=== PATIENT | female | born 1980 | race Caucasian/White ===

== ENCOUNTER 2019-09-25 05:06 | Emergency (ER) | payer BC, SELFPAY ==
--- NOTE | ~2019-09-25 | XR_ITS ---
EXAMINATION: XR chest 1V DATE: 09/25/2019 06:27 INDICATION: Left shoulder pain. TECHNIQUE: A single frontal view of the chest was obtained. COMPARISON: Chest single view 12/16/2018, CT abdomen and pelvis 07/07/2019 FINDINGS: The chest demonstrates clear lungs without pneumonia, pleural effusion, or pneumothorax. Th e heart size is normal. There is a two-part fracture of proximal left humerus. IMPRESSION: 1. Two-part fracture of proximal left humerus. Reviewed, dictated and finalized at location A.
--- NOTE | ~2019-09-25 | XR_ITS ---
EXAMINATION: XR shoulder LT min 2V DATE: 09/25/2019 06:27 INDICATION: Left shoulder pain. TECHNIQUE: 2 views of left shoulder were obtained. COMPARISON: None. FINDINGS: There is an oblique fracture of surgical neck of proximal left humerus. The distal fracture fragment demonstrates 4 mm anterior displacement, 18 mm impaction, and 5 degrees medial angulation. Joint spaces are normal. IMPRESSION: 1. Two-part fracture of proximal left humerus. Reviewed, dictated and finalized at location A.
[2019-09-25 05:03] VITALS: BP 126/73; PULSE 78; RESP 16; TEMP 36.3; O2SAT 100
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
[2019-09-25 06:46] LABS: Basophils Percent Auto 0.5 % (0.2-1.2); Eosinophils Percent Auto 0.2 % (0-4.4); Hematocrit 32.1 % (37.0-47.0); Hemoglobin 10.5 g/dL (12.0-15.0); Immature Granulocyte Absolute 0.03 K/mm3 (0.00-0.031); Immature Granulocyte Percent A 0.5 % (0-0.5); Lymphocytes Absolute Auto 1.67 K/mm3 (0.9-3.2); Lymphocytes Percent Auto 25.9 % (18.3-44.2); Mean Corpuscular HGB Conc 32.7 g/dl (32-36); Mean Corpuscular Hemoglobin 28.5 pg (26-34); Mean Corpuscular Volume 87.2 fl (80-100); Mean Platelet Volume 8.4 fl (7.4-10.4); Monocytes Absolute Auto 0.6 K/mm3 (0.1-0.6); Monocytes Percent Auto 9.3 % (2.6-8.5); Neutrophils Absolute Auto 4.1 K/mm3 (1.3-6.7); Neutrophils Percent Auto 63.6 % (45.5-73.1); Platelet Count Result 134 k/mm3 (150-375); Red Blood Count 3.68 M/mm3 (4.2-5.4); Red Cell Distribution Width 17.2 % (11.5-14.5); White Blood Count 6.5 K/mm3 (4.5-10.0)
[2019-09-25] MEDS: MORPHINE SULFATE 2 MG/ML INJ IV PUSH (06:46)
[2019-09-25 06:56] VITALS: BP 117/68; PULSE 89; RESP 18; O2SAT 99
[2019-09-25 07:00] LABS: Prothrombin Time 13.2 Seconds (11.1-14.7)
[2019-09-25 07:01] LABS: Partial Thromboplastin Time 27.2 SECONDS (22.3-36.8)
[2019-09-25 07:03] LABS: Alanine Aminotransferase 26 U/L (4-35); Albumin Level 3.8 g/dL (3.5-5.1); Alkaline Phosphatase 194 U/L (38-126); Aspartate Amino Transferase 59 U/L (14-36); Bilirubin,Total 0.6 mg/dL (0.2-1.3); Blood Urea Nitrogen 8 mg/dL (7-17); Calcium 8.2 mg/dL (8.4-10.2); Carbon Dioxide 25 mmol/L (22-30); Chloride 102 mmol/L (98-107); Estimated CRCL calculation 129 ml/min; Estimated Glomerular Filt Rate > 60; Glucose 147 mg/dL (65-105); Lipase 163 U/L (23-300); Potassium 4.2 mmol/L (3.4-5.0); Sodium 136 mmol/L (137-145)
--- NOTE | 2019-09-25 07:24 | PC.NURSE ---
assuming care of pt from Macario ANDINO. Pt is A&Ox4. Pt having LUQ abd pain and L shoulder pain. Pt states meds wore off. Pt has ice pack on L shoulder. Pt has call light in reach
[2019-09-25 08:10] VITALS: BP 133/82; PULSE 83; RESP 18; O2SAT 98
== END 2019-09-25 09:15 | disposition home or self-care (01) ==
PROVIDERS: Emergency Provider Emergency Medicine; PCP Family Medicine
DX: S42.222A 2-part displaced fracture of surgical neck of left humerus, initial encounter for closed fracture (principal); E11.9 Type 2 diabetes mellitus without complications; Z79.4 Long term (current) use of insulin; F41.9 Anxiety disorder, unspecified; F32.9 Major depressive disorder, single episode, unspecified; F17.210 Nicotine dependence, cigarettes, uncomplicated; Y35.813A Legal intervention involving manhandling, suspect injured, initial encounter
CPT/HCPCS: 36415; 71045; 73030; 80053; 83690; 85025; 85610; 85730; 96374; 99284; A4565; A9270; J2270

== ENCOUNTER 2019-10-12 20:23 | Emergency (ER) | payer BC, SELFPAY ==
[2019-10-12] VITALS (10 sets, daily range): BP systolic 107–149; BP diastolic 61–95; PULSE 92–104; RESP 18–20; TEMP 36.8; O2SAT 99–100
--- NOTE | ~2019-10-12 | CT_ITS ---
EXAMINATION: CT abdomen pelvis w con DATE: 10/12/2019 21:40 INDICATION: Left upper quadrant pain TECHNIQUE: Computed tomography (CT) of the abdomen and pelvis was performed with 100 cc Omnipaque 350 intravenous contrast. The dose-length product was 626.25 mGy-cm. Automated exposure control and iter ative reconstruction technique were employed. COMPARISON: CT dated 07/07/2019 FINDINGS: Lung bases are unremarkable. Heart size normal. No significant pleural or pericardial effus ion. The liver, spleen, adrenal glands and left kidney are unremarkable. There is a subcentimeter hypodens ity of the right kidney, likely benign cysts. There is a gallstone. There is chronic pancreatitis with walled off fluid collections along the pancreatic margin and along the margin of the left colon, likely developing pancreatic pseudocyst or abscess formation. No signi ficant small bowel obstruction. There are multiple thickened loops of small bowel the splenic vein is likely thrombosed with collateralization. There are enlarged retroperitoneal lymph nodes, likely danny ctive. No free air. Small amount of free fluid in the pelvic cul-de-sac. No acute osseous abnormality . Chronic left L5 pars interarticularis defect. IMPRESSION: 1. Chronic pancreatitis with increasing size of walled off fluid collections which are contiguous wit h the pancreas, gastric wall and also the margin of the left colon. Differential diagnosis includes d eveloping pancreatic pseudocysts, abscess formation or pancreatic necrosis. 2: Cholelithiasis. Reviewed, dictated and finalized at location A. IMPRESSION: 1. Chronic pancreatitis with increasing size of walled off fluid collections wh ich are contiguous with the pancreas, gastric wall and also the margin of the l eft colon. Differential diagnosis includes developing pancreatic pseudocysts, a bscess formation or pancreatic necrosis. 2: Cholelithiasis.
--- NOTE | 2019-10-12 21:00 | ED.ABDPAIN ---
HPI - Abdominal Pain General Chief Complaint: Abdominal Pain Stated Complaint: PANCREATIC FLARE UP Time Seen by Provider: 10/12/19 20:38 History of Present Illness HPI narrative: 39 yo female w/ h/o chronic/necrotizing pancreatitis presents to the ED c/o abdominal pain. LUQ. No radiation. tearing/dull. Severe in intensity. This feels similar to her pancreatitis. She has previously had necrotizing pancreatitis for which she sees GI at [place]. She has required percutaneous drainage in the past. No fever, cough, SOB. Related Data Home Medications Medication Instructions Recorded Confirmed insulin glargine 100 unit/mL (3 25 unit SUB-Q DAILY 07/20/19 mL) subcutaneous pen insulin lispro 100 unit/mL 5 unit SUB-Q TID ml 07/20/19 subcutaneous pen Allergies Allergy/AdvReac Type Severity Reaction Status Date / Time No Known Allergies Allergy Unknown Verified 10/12/19 21:00 Review of Systems Review of Systems: All systems reviewed & are unremarkable except as noted in HPI and below Constitutional: Constitutional: Reports weakness Cardiovascular: Cardiovascular: Denies chest pain Respiratory: Respiratory: Denies cough and Denies dyspnea Gastrointestinal: Gastrointestinal: Reports abdominal pain, Denies diarrhea, Reports nausea and Denies vomiting Genitourinary: Genitourinary: Denies dysuria Musculoskeletal: Musculoskeletal: Reports back pain Neurologic: Denies syncope PMFSH Social History Social History Smoking status: Current every day smoker Tobacco type: cigarettes Second hand tobacco smoke exposure: Yes Alcohol intake: former Substance use: never Substance use type: does not use Gender identity (if verbalized by the patient): Female Exam Const: General: alert and ill appearing Nutritional Appearance: well nourished Orientation/consciousness: patient oriented x3 Other: mild distress HENMT: Mouth: Yes dry mucous membranes Resp: Effort & Inspection: normal respiratory effort Auscultation: clear to auscultation bilaterally Cardio: Rate: regular rate Rhythm: regular rhythm GI: Inspection: non-distended GI Palp: Yes Soft to palpation and Yes Tenderness to palpation present (GI) (periumbilical) Skin: General skin exam: normal color and no pallor Neuro: General: patient oriented x3, moves all extremities, no focal motor deficits and CN's II-XI intact bilaterally Speech: normal speech Extrem: General: normal to inspection Course Vital Signs Vital signs: Vital Signs Temperature 36.8 C 10/12/19 20:33 Pulse Rate 104 H 10/12/19 20:33 Respiratory Rate 20 10/12/19 20:33 Blood Pressure 149/90 H 10/12/19 20:33 Pulse Oximetry 100 10/12/19 20:33 Temperature 36.8 C 10/13/19 00:45 Pulse Rate 87 10/13/19 01:01 Respiratory Rate 18 10/13/19 01:01 Blood Pressure 105/66 10/13/19 01:01 Pulse Oximetry 100 10/13/19 01:01 MDM - Abdominal Pain MDM Narrative Medical decision making narrative: CT shows enlarging fluid collections. She sees GI at [place]. I contacted them and discussed the case. They will accept the transfer as a direct admit. Differential Diagnosis Differential diagnosis: Likely abdominal pain, constipation, diverticulitis, gastroenteritis, pancreatitis and small bowel obstruction Medical Records Attestation: I reviewed the patient's medical records. Lab Data Attestation: I reviewed the patient's lab results. Result diagrams: 10/12/19 20:55 10/12/19 20:56 Labs: Lab Results 10/12/19 10/12/19 Range/Units 20:55 20:56 WBC 12.2 H (4.5-10.0) K/mm3 RBC 3.80 L (4.2-5.4) M/mm3 Hgb 10.1 L (12.0-15.0) g/dL Hct 33.4 L (37.0-47.0) % MCV 87.9 (80-100) fl MCH 26.6 (26-34) pg MCHC 30.2 L (32-36) g/dl RDW 17.9 H (11.5-14.5) % Plt Count 457 H D (150-375) k/mm3 MPV 9.2 (7.4-10.4) fl Immature Gran % (Auto) 0.4 (0-0.5) % Brandi
[2019-10-12 21:01] LABS: Basophils Absolute Auto 0.1 K/mm3 (0.0-0.1); Basophils Percent Auto 0.4 % (0.2-1.2); Eosinophils Absolute Auto 0.3 K/mm3 (0-0.3); Eosinophils Percent Auto 2.1 % (0-4.4); Hematocrit 33.4 % (37.0-47.0); Hemoglobin 10.1 g/dL (12.0-15.0); Immature Granulocyte Absolute 0.05 K/mm3 (0.00-0.031); Immature Granulocyte Percent A 0.4 % (0-0.5); Lymphocytes Absolute Auto 1.51 K/mm3 (0.9-3.2); Lymphocytes Percent Auto 12.4 % (18.3-44.2); Mean Corpuscular HGB Conc 30.2 g/dl (32-36); Mean Corpuscular Hemoglobin 26.6 pg (26-34); Mean Corpuscular Volume 87.9 fl (80-100); Mean Platelet Volume 9.2 fl (7.4-10.4); Monocytes Absolute Auto 0.5 K/mm3 (0.1-0.6); Monocytes Percent Auto 3.9 % (2.6-8.5); Neutrophils Absolute Auto 9.8 K/mm3 (1.3-6.7); Neutrophils Percent Auto 80.8 % (45.5-73.1); Platelet Count Result 457 k/mm3 (150-375); Red Cell Distribution Width 17.9 % (11.5-14.5); White Blood Count 12.2 K/mm3 (4.5-10.0)
[2019-10-12 21:17] LABS: Alanine Aminotransferase 19 U/L (4-35); Albumin Level 4.1 g/dL (3.5-5.1); Alkaline Phosphatase 187 U/L (38-126); Aspartate Amino Transferase 31 U/L (14-36); Bilirubin,Total 0.3 mg/dL (0.2-1.3); Blood Urea Nitrogen 10 mg/dL (7-17); Calcium 9.5 mg/dL (8.4-10.2); Carbon Dioxide 27 mmol/L (22-30); Chloride 99 mmol/L (98-107); Estimated CRCL calculation 106 ml/min; Estimated Glomerular Filt Rate > 60; Glucose 248 mg/dL (65-105); Lipase 1708 U/L (23-300); Potassium 4.5 mmol/L (3.4-5.0); Sodium 133 mmol/L (137-145)
[2019-10-12] MEDS: SODIUM CHLORIDE 0.9% IV 1,000 ML 999 ML IV CONT (21:43)
[2019-10-12] MEDS: ONDANSETRON INJ 4 MG/2 ML VIAL IV PUSH (21:44)
[2019-10-12] MEDS: MORPHINE SULFATE 4 MG/ML INJ IV PUSH (22:11)
[2019-10-13 00:01] VITALS: BP 108/72
[2019-10-13 00:31] VITALS: BP 102/62; O2SAT 99
[2019-10-13 00:45] VITALS: TEMP 36.8
--- NOTE | 2019-10-13 00:45 | PC.NURSE ---
[facility] agreed to transfer pt to [place] ETA of 0111
[2019-10-13 01:01] VITALS: BP 105/66; PULSE 87; RESP 18; O2SAT 100
[2019-10-13] MEDS: HYDROMORPHONE HCL 1 MG/ML INJ IV PUSH (01:44)
--- NOTE | 2019-10-13 01:45 | PC.NURSE ---
EMS here to transport patient to [place]
== END 2019-10-13 01:54 | disposition short-term general hospital (02) ==
PROVIDERS: Emergency Provider Emergency Medicine; PCP Family Medicine
DX: K86.1 Other chronic pancreatitis (principal); F17.210 Nicotine dependence, cigarettes, uncomplicated; K80.20 Calculus of gallbladder without cholecystitis without obstruction
CPT/HCPCS: 36415; 74177; 80053; 83690; 85025; 96361; 96374; 96375; 99285; J1170; J2270; J2405; J3010; J7030; Q9967

== ENCOUNTER 2019-11-03 18:34 | Emergency (ER) | payer BC, SELFPAY ==
[2019-11-03 18:41] VITALS: BP 100/83; PULSE 72; RESP 18; TEMP 36.8; O2SAT 95
--- NOTE | 2019-11-03 19:08 | ED.GENADULT ---
HPI - General Adult General Chief complaint: Unspecified Stated complaint: I got fucking alcohol poisoning Time Seen by Provider: 11/03/19 19:05 History of Present Illness HPI narrative: SHe reports that she has been drinking heavily and came to the ED because she thought that she was dying. She denies any specific symptoms: Abdominal pain, nausea, injuries, fever, weakness. She asked to be discharged shortly after I started to collect the history from her. Related Data Home Medications Medication Instructions Recorded Confirmed insulin glargine 100 unit/mL (3 25 unit SUB-Q DAILY 07/20/19 10/18/19 mL) subcutaneous pen aspirin 325 mg tablet 325 mg PO DAILY 10/18/19 10/18/19 bupropion HCl 75 mg tablet 150 mg PO BID tablet 10/18/19 10/18/19 insulin lispro 100 unit/mL See Rx Instructions SUB-Q TID ml 10/18/19 10/18/19 subcutaneous pen pregabalin 150 mg capsule 150 mg PO BID 10/18/19 10/18/19 pregabalin 150 mg capsule 150 mg PO BID 10/18/19 10/18/19 Allergies Allergy/AdvReac Type Severity Reaction Status Date / Time No Known Allergies Allergy Unknown Verified 10/18/19 13:30 Review of Systems Review of Systems: All systems reviewed & are unremarkable except as noted in HPI and below Constitutional: Constitutional: Denies fever(s) Eyes: Eyes: Denies change in vision Cardiovascular: Cardiovascular: Denies chest pain Respiratory: Respiratory: Denies cough and Denies dyspnea Gastrointestinal: Gastrointestinal: Denies abdominal pain, Denies diarrhea, Denies nausea and Denies vomiting Genitourinary: Genitourinary: Denies hematuria and Denies dysuria Musculoskeletal: Musculoskeletal: Denies back pain Neurologic: Denies dizziness [facility] Past Medical History Medical History Anxiety Depression DVT (deep venous thrombosis) Dyslipidemia Hepatitis IDDM (insulin dependent diabetes mellitus) Necrotizing pancreatitis Surgical History Surgical History History of section 2003, 2010, 2016 History of ERCP 06/2019 History of surgery on arm Left - 2020 [place] teeth extracted age 23 Family History Family History Other Diabetes mellitus Family history of coronary artery disease Family history of dementia Social History Social History Smoking status: Current every day smoker Tobacco type: cigarettes Second hand tobacco smoke exposure: Yes Alcohol intake: former Substance use: never Substance use type: does not use Gender identity (if verbalized by the patient): Female Exam Const: General: no acute distress and alert Nutritional Appearance: well nourished Orientation/consciousness: patient oriented x3 HENMT: Other: severe tooth decay Eyes: Pupils: Equal, round and reactive pupils present Resp: Effort & Inspection: normal respiratory effort Auscultation: clear to auscultation bilaterally Cardio: Rate: regular rate Rhythm: regular rhythm GI: GI Palp: Yes Soft to palpation and No Tenderness to palpation present (GI) Skin: General skin exam: normal color Wounds: no wounds Neuro: General: patient oriented x3, moves all extremities, no focal motor deficits and CN's II-XI intact bilaterally Speech: Abnormal speech present slurred Course Vital Signs Vital signs: Vital Signs Temperature 36.8 C 11/03/19 18:41 Pulse Rate 72 11/03/19 18:41 Respiratory Rate 18 11/03/19 18:41 Blood Pressure 100/83 11/03/19 18:41 Pulse Oximetry 95 11/03/19 18:41 Temperature 36.8 C 11/03/19 18:41 Pulse Rate 115 H 11/03/19 19:27 Respiratory Rate 17 11/03/19 19:27 Blood Pressure 124/87 11/03/19 19:27 Pulse Oximetry 96 11/03/19 19:27 Medical Decision Making [facility] Narrative Medical decision making narrative: She has multiple
[2019-11-03 19:27] VITALS: BP 124/87; PULSE 115; RESP 17; O2SAT 96
[2019-11-03 20:05] LABS: Add Urine Microscopic? YES; Appearance Urine Clear (Clear); Bacteria Urine Trace /hpf; Bilirubin Urine Negative (Negative); Blood Urine 1+ (Negative); Color Urine Yellow (Yellow); Glucose Urine UA Negative (Negative); Ketones Urine Negative (Negative); Leukocyte Esterase Ur Negative LEU/UL (Negative); Mucus Urine Rare /lpf; Nitrate Urine Negative (Negative); Protein Urine 3+ mg/dL (Negative); RBC Urine 0-2 /hpf (0-2); Squamous Epithelial Cell Urine Many /hpf (Few); Urobilinogen Urine Negative mg/dL (<2.0); WBC Urine 0-3 /hpf
[2019-11-03 20:22] LABS: Amphetamine Screen Urine Negative (Negative); Barbiturate Screen Urine Negative (Negative); Benzodiazepines Screen Urine Negative (Negative); Cannabinoid Screen Urine Negative (Negative); Cocaine Screen Urine Negative (Negative); Methadone Screen Urine Negative (Negative); Opiate Screen Urine Negative (Negative); Phencyclidine Screen Urine Negative (Negative)
== END 2019-11-03 20:25 | disposition home or self-care (01) ==
PROVIDERS: Emergency Provider Emergency Medicine; PCP Family Medicine
DX: F10.129 Alcohol abuse with intoxication, unspecified (principal); F41.9 Anxiety disorder, unspecified; F32.9 Major depressive disorder, single episode, unspecified; Z86.718 Personal history of other venous thrombosis and embolism; E78.5 Hyperlipidemia, unspecified; E11.9 Type 2 diabetes mellitus without complications; Z79.82 Long term (current) use of aspirin; Z79.4 Long term (current) use of insulin; Y90.9 Presence of alcohol in blood, level not specified
CPT/HCPCS: 80307; 81001; 99283

== ENCOUNTER 2020-01-16 18:25 | Inpatient (IN) | payer BC, SELFPAY ==
--- NOTE | ~2020-01-16 | MR_ITS ---
EXAMINATION: MR brain/brain stem wo/w con DATE: 01/18/2020 07:32 INDICATION: Seizures TECHNIQUE: Magnetic resonance imaging (MRI) of the brain and brainstem was performed without and with 13 mL Multihance intravenous contrast. Sequences included sagittal and axial T1-weighted SE, axial d iffusion-weighted FS SE, axial T2*-weighted GRE, axial T2-weighted FLAIR Propeller, axial T2-weighted Propeller, coronal T2-weighted FLAIR, and coronal T1-weighted 3D FSPGR. Postcontrast axial T1-weight ed SE was obtained. Apparent diffusion coefficient (ADC) maps were created. COMPARISON: None. FINDINGS: Soft tissue swelling and edema surrounding the left parietal scalp hematoma.. There are no areas of r estricted diffusion to suggest acute infarction. No intracranial hemorrhage or abnormal intracranial mass lesion. The hippocampi appear normal and symmetric. No evident ackerman matter heterotopias or other neuronal migrational abnormalities. There are no intraparenchymal signal abnormalities seen on the o ther pulse sequences. The ventricles are symmetric and normal in size. There are no abnormal extra-ax ial fluid collections. Flow voids are seen in the cerebral arteries on the T2-weighted sequences cons istent with their expected patency. Mild mucoperiosteal thickening at the bilateral ethmoid sinuses. Visualized orbits and soft tissues are unremarkable. There are no areas of abnormal enhancement on th e post contrast images. IMPRESSION: 1. Left parietal scalp hematoma. Otherwise unremarkable brain MRI. Reviewed, dictated and finalized at location A.
--- NOTE | ~2020-01-16 | CT_ITS ---
EXAMINATION: CT brain wo con EXAM DATE: 01/16/2020 21:13 INDICATION: Seizure, posterior head injury. TECHNIQUE: Spiral CT of the head was performed without contrast. Axial, coronal and sagittal images were reviewed. The dose-length product (DLP) for this examination was 605.33 mGy-cm. The exposure w as tailored according to patient size, and iterative reconstruction (ASIR) was used as additional dos e reduction technique. There is no prior study for comparison. FINDINGS: There is no acute intraparenchymal hemorrhage. No evidence of intraparenchymal brain mass lesion. No evidence of acute infarction. There is no mass effect or midline shift. The ventricles are normal in size. There are no extra-axial collections. There are no acute calvarial fractures. T he orbits are unremarkable. There is large left posterior scalp contusion. The visualized sinuses an d mastoid air cells are well aerated. IMPRESSION: 1. No acute intracranial findings. 2. Large left posterior scalp contusion without underlying fracture. Reviewed, dictated and finalized at location A.
--- NOTE | ~2020-01-16 | CT_ITS ---
EXAMINATION: CT abdomen pelvis w con EXAM DATE: 01/16/2020 21:14 INDICATION: Seizure, head injury. TECHNIQUE: Spiral CT of the abdomen and pelvis was performed following intravenous injection of 100 m L Omnipaque 350. Axial, coronal and sagittal images were reviewed. The dose-length product (DLP) fo r this examination was 863.02 mGy-cm. The exposure was tailored according to patient size (auto mA e xposure control), and iterative reconstruction (ASIR) was used as additional dose reduction technique . Comparison is made to prior examination from 10/12/2019. FINDINGS: There is severe hepatic steatosis. There are pancreatic calcifications, is peripancreatic fat stranding, inflammation, acute on chronic pancreatitis. There has been interval decrease in size of the scattered pseudocysts between the pancreas and stomach, with the largest region measuring 1 x 2 cm today versus 3.5 x 2.1 cm on prior study. There has been development of severe edema along the lesser curvature of the stomach, probably reactive from the pancreatitis, pseudocysts. Gastritis from peptic ulcer disease not excludable. Gallbladder is unremarkable. No biliary obstruction. Portal and splenic veins are patent. Kidneys enhance symmetrically. There is no hydronephrosis. The uterus and ovaries are unremarkable, no adn exal mass. The bladder is unremarkable. There is no retroperitoneal or pelvic lymphadenopathy. The appendix is not positively visualized. There is no pericecal inflammatory change to suggest appe ndicitis. Unremarkable small bowel. There is expected amount of colonic stool. No free intraperi toneal gas. The heart is normal in size. There are no pericardial or pleural effusions. The lung bases are unremarkable. There is left-sided L5 spondylolysis. Left rib fractures appear old. IMPRESSION: 1. Acute on chronic pancreatitis with decrease in size of pseudocysts but development of significant edema along the lesser curvature of the stomach. 2. Severe hepatic steatosis. Reviewed, dictated and finalized at location A. IMPRESSION: 1. Acute on chronic pancreatitis with decrease in size of pseudocysts but deve lopment of significant edema along the lesser curvature of the stomach. 2. Severe hepatic steatosis.
--- NOTE | ~2020-01-16 | CT_ITS ---
EXAMINATION: CT cervical spine wo [facility] EXAM DATE: 01/16/2020 22:23 INDICATION: Fall, neck pain. Seizure. TECHNIQUE: Spiral CT of the cervical spine was performed without contrast. Axial images were reviewe d. Coronal and sagittal reformatted images were also reviewed. The dose-length product (DLP) for thi s examination was 356.57 mGy-cm. The exposure was tailored according to patient size (auto mA exposu re control), and iterative reconstruction (ASIR) was used as additional dose reduction technique. ere is no prior study for comparison. FINDINGS: There is no evidence of acute cervical fracture. The odontoid process is intact. Pre-dens space is normal. Prevertebral soft tissue is normal. There are no soft tissue abnormalities identi fied. There is no disc space widening or traumatic vertebral body subluxation suspected. Vertebral body and disc heights are well-maintained. A detailed level by level evaluation of spondylosis can be added as addendum if requested. IMPRESSION: 1. No acute cervical fracture. Reviewed, dictated and finalized at location A.
[2020-01-16 18:25] VITALS: BP 146/96; PULSE 78; RESP 20; TEMP 37.2; O2SAT 100
[2020-01-16 18:51] LABS: Basophils Percent Auto 0.3 % (0.2-1.2); Eosinophils Percent Auto 0.6 % (0-4.4); Hematocrit 42.8 % (37.0-47.0); Hemoglobin 14.7 g/dL (12.0-15.0); Immature Granulocyte Absolute 0.02 K/mm3 (0.00-0.031); Immature Granulocyte Percent A 0.3 % (0-0.5); Lymphocytes Absolute Auto 1.73 K/mm3 (0.9-3.2); Lymphocytes Percent Auto 23.9 % (18.3-44.2); Mean Corpuscular HGB Conc 34.3 g/dl (32-36); Mean Corpuscular Hemoglobin 31.5 pg (26-34); Mean Corpuscular Volume 91.6 fl (80-100); Mean Platelet Volume 9.7 fl (7.4-10.4); Monocytes Absolute Auto 0.7 K/mm3 (0.1-0.6); Monocytes Percent Auto 10.2 % (2.6-8.5); Neutrophils Absolute Auto 4.7 K/mm3 (1.3-6.7); Neutrophils Percent Auto 64.7 % (45.5-73.1); Platelet Count Result 155 k/mm3 (150-375); Red Blood Count 4.67 M/mm3 (4.2-5.4); Red Cell Distribution Width 17.3 % (11.5-14.5); White Blood Count 7.2 K/mm3 (4.5-10.0)
[2020-01-16 19:31] VITALS: BP 119/82; PULSE 78; RESP 18; O2SAT 99
--- NOTE | 2020-01-16 19:33 | ED.SEIZURE ---
HPI - Seizure General Chief Complaint: Seizure Stated Complaint: sz Time Seen by Provider: 01/16/20 19:17 History of Present Illness HPI Narrative: Patient presents via EMS after having a seizure at [facility] and falling backwards on her head. Initially she refused transfer and went home. Then when she got home she started to worry and called EMS to bring her to the hospital. She said her blood sugars been running high it was 400 at [facility]. She had a 2-week alcohol binge and is been 4 days now since she had her last alcohol. She has previously had alcohol withdrawal seizures. When she fell she bumped the back of her head and has a large swelling there. She gives her head pain a 3 out of 10. She gives her neck pain a 3 out of 10. She feels not like she might have another seizure. She has a tremor in the left hand. She is an insulin-dependent diabetic. She smokes cigarettes,, drinks alcohol, and does marijuana. Her surgeries include a tubal ligation. She has not been sick otherwise. MD complaint: seizure Onset (ago): hour(s) Description of Episode: loss of consciousness -: minutes(s) Witnessed: Yes - by Bystander Trauma: No Seizure History: Yes Place: [facility] Possible Precipitating Event: alcohol withdrawal Associated symptoms: chest pain Treatments prior to arrival: none Related Data Home Medications Medication Instructions Recorded Confirmed insulin glargine 100 unit/mL (3 25 unit SUB-Q DAILY 07/20/19 10/18/19 mL) subcutaneous pen aspirin 325 mg tablet 325 mg PO DAILY 10/18/19 10/18/19 bupropion HCl 75 mg tablet 150 mg PO BID tablet 10/18/19 10/18/19 insulin lispro 100 unit/mL See Rx Instructions SUB-Q TID ml 10/18/19 10/18/19 subcutaneous pen pregabalin 150 mg capsule 150 mg PO BID 10/18/19 10/18/19 pregabalin 150 mg capsule 150 mg PO BID 10/18/19 10/18/19 Allergies Allergy/AdvReac Type Severity Reaction Status Date / Time No Known Allergies Allergy Unknown Verified 10/18/19 13:30 Review of Systems Review of Systems: Narrative: CONSTITUTIONAL: Denies fever, chills, or sweats. EYES: Denies visual changes, redness, or discharge. ENT: Denies rhinorrhea, congestion, sore throat, or otalgia. CARDIOVASCULAR: Denies chest pain, palpitations, or edema. RESPIRATORY: Denies cough or dyspnea. GASTROINTESTINAL: Denies abdominal pain, nausea, vomiting, or diarrhea. GENITOURINARY: Denies dysuria or hematuria. SKIN: Denies rash or itching. MUSCULOSKELETAL: Denies back pain, joint pain, or myalgia. NEUROLOGIC: She has headache, but not numbness, or weakness.. All systems reviewed & are unremarkable except as noted in HPI and below PMFSH Past Medical History Medical History (Updated 01/16/20 @ 23:27 by Stacey Fisher MD) Anxiety Depression DVT (deep venous thrombosis) Dyslipidemia Hepatitis IDDM (insulin dependent diabetes mellitus) Necrotizing pancreatitis Surgical History Surgical History (Updated 01/16/20 @ 19:37 by Stacey Fisher MD) History of section 2003, 2010, 2015 History of ERCP 06/2019 History of surgery on arm Left - 2019 History of tubal ligation [place] teeth extracted age 23 Social History Social History (Updated 01/16/20 @ 19:37 by Stacey Fisher MD) Smoking status: Current every day smoker Tobacco type: cigarettes Second hand tobacco smoke exposure: Yes Alcohol intake: former Substance use: current Substance use type: marijuana Gender identity (if verbalized by the patient): Female Exam Narrative: Exam Narrative: GENERAL: Well-appearing, well-nourished, and in no acute distress. HEAD: Normocephalic tender swelling on the left occiput. EYES: PERRLA and EOMI. ENT: Nares clear, no rhinorrhea or epistaxis. Mucous membranes moist. NECK: Supple. CHEST: Clear to auscultation. No respiratory distress. HEART: Regular rate and rhythm. No murmur heard. Normal peripheral pulses. ABDOMEN: Soft, nontender, nondistended, normal active bowel sounds. EXTREMITIE
[2020-01-16 19:35] LABS: Alanine Aminotransferase 55 U/L (4-35); Albumin Level 3.5 g/dL (3.5-5.1); Anion Gap 10.3 mmol/L (7-16); Aspartate Amino Transferase 71 U/L (14-36); Bilirubin,Total 0.8 mg/dL (0.2-1.3); Blood Urea Nitrogen 8 mg/dL (7-17); Calcium 8.7 mg/dL (8.4-10.2); Carbon Dioxide 29 mmol/L (22-30); Chloride 97 mmol/L (98-107); Estimated CRCL calculation 124 ml/min; Estimated Glomerular Filt Rate > 60; Glucose 91 mg/dL (65-105); Potassium 3.3 mmol/L (3.4-5.0); Sodium 133 mmol/L (137-145)
[2020-01-16 19:38] LABS: Alkaline Phosphatase 226 U/L (38-126)
[2020-01-16 19:48] LABS: Ethanol < 10 mg/dL (<10)
[2020-01-16 20:50] LABS: Add Urine Microscopic? YES; Appearance Urine Clear (Clear); Bacteria Urine Trace /hpf; Bilirubin Urine Negative (Negative); Blood Urine Negative (Negative); Color Urine Yellow (Yellow); Glucose Urine UA 1+ mg/dL (Negative); Ketones Urine Negative (Negative); Leukocyte Esterase Ur Negative LEU/UL (Negative); Mucus Urine Moderate /lpf; Nitrate Urine Negative (Negative); Protein Urine 1+ mg/dL (Negative); Specific Grav Ur 1.013 (1.001-1.035); Squamous Epithelial Cell Urine Rare /hpf (Few); WBC Urine 0-3 /hpf
[2020-01-16 21:07] LABS: Amphetamine Screen Urine Negative (Negative); Barbiturate Screen Urine Negative (Negative); Benzodiazepines Screen Urine Negative (Negative); Cannabinoid Screen Urine Positive (Negative); Cocaine Screen Urine Negative (Negative); Methadone Screen Urine Negative (Negative); Opiate Screen Urine Negative (Negative); Phencyclidine Screen Urine Negative (Negative)
[2020-01-16 21:33] VITALS: BP 110/76; PULSE 76; RESP 18; O2SAT 99
[2020-01-16 23:47] VITALS: BP 110/72; PULSE 81; RESP 18; O2SAT 99
[2020-01-17] VITALS (25 sets, daily range): BP systolic 92–130; BP diastolic 59–93; PULSE 69–105; RESP 12–20; TEMP 36.5–36.8; O2SAT 97–100; BMI 26.6
--- NOTE | 2020-01-17 01:22 | PM.IMHP ---
H&P: HPI History of Present Illness Date/Time: 01/17/20 01:22 Chief complaint: sz Narrative: This is a 39 year old Diabetic female with known history of chronic pancreatitis, alcoholism, and previous hepatitis who presented to the hospital afte suffering a generalized seizure at [facility] today. The patient suffered posterior head trauma as her head hit the floor when she seized. The patient admits to a 2 week alcohol binge recently but hasn't had a drink in about 4 days now. The patient also has a history of previous withdrawal seizures. She denies any tongue biting or loss of urine. She was given ativan IV in the ER. She was evaluated in the ER and given a dose of ativan. On my encounter with her she is calm and does not have any visable shaking. She quickly falls back asleep as she appears postictal and has been given ativan. She denies any significant symptoms other than posterior headache where she suffered head trauma this evening. She denies any chest pain, shortness of breath, fever, cough, nausea, vomiting, photophobia, abdominal pain, dysuria, hematuria, or rectal bleeding. No focal deficits are reported. Review of Systems Review of Systems: All systems reviewed & are unremarkable except as noted in HPI and below PMFSH Past Medical History Medical History Anxiety Depression DVT (deep venous thrombosis) Dyslipidemia Hepatitis IDDM (insulin dependent diabetes mellitus) Necrotizing pancreatitis Surgical History Surgical History History of section 2003, 2010, 2015 History of ERCP 06/2019 History of surgery on arm Left - 2019 History of tubal ligation [place] teeth extracted age 23 Family History Family History Other Diabetes mellitus Family history of coronary artery disease Family history of dementia Social History Social History Smoking status: Current every day smoker Tobacco type: cigarettes Second hand tobacco smoke exposure: Yes Alcohol intake: former Substance use: current Substance use type: marijuana Gender identity (if verbalized by the patient): Female Meds Home Medications and Allergies Home Medications Medication Instructions Recorded Confirmed Type insulin glargine 100 unit/mL (3 25 unit SUB-Q DAILY 07/20/19 10/18/19 History mL) subcutaneous pen escitalopram oxalate 10 mg tablet 10 mg PO DAILY #90 tablet 08/07/19 10/18/19 Rx aspirin 325 mg tablet 325 mg PO DAILY 10/18/19 10/18/19 History bupropion HCl 75 mg tablet 150 mg PO BID tablet 10/18/19 10/18/19 History insulin lispro 100 unit/mL See Rx Instructions SUB-Q TID ml 10/18/19 10/18/19 History subcutaneous pen oxycodone 5 mg tablet 5 mg PO Q8H PRN #30 tablet 10/18/19 10/18/19 Rx pregabalin 150 mg capsule 150 mg PO BID 10/18/19 10/18/19 History pregabalin 150 mg capsule 150 mg PO BID 10/18/19 10/18/19 History hydroxyzine HCl 25 mg tablet See Rx Instructions .ROUTE 12/18/19 Rx .COMPLEX #90 tablet Allergies Allergy/AdvReac Type Severity Reaction Status Date / Time No Known Allergies Allergy Unknown Verified 10/18/19 13:30 Vital Signs Vital Signs - 24 hr 01/16/20 18:25 01/16/20 19:31 01/16/20 21:33 Temperature 37.2 C Pulse Rate 78 78 76 Respiratory Rate 20 18 18 Blood Pressure 146/96 H 119/82 110/76 Pulse Oximetry 100 99 99 01/16/20 23:47 01/17/20 00:54 Temperature Pulse Rate 81 82 Respiratory Rate 18 16 Blood Pressure 110/72 114/80 Pulse Oximetry 99 98 Exam Const: General: cooperative, no acute distress, ill appearing chronically, tired appearing and other (somnolent but arousable. ) Nutritional Appearance: well nourished Orientation/consciousness: oriented to person HENMT: Head: scalp lesion (area of scalp edema located on left parieto-o
[2020-01-17 03:56] LABS: Glucose Point of Care 72 (65-105)
[2020-01-17] MEDS: KCL 20 MEQ/SW 100 ML 100 ML 50 MEQ IVPB (04:50)
--- NOTE | 2020-01-17 07:03 | PC.NURSE ---
ok to change diet to regular per dr kaufman
--- NOTE | 2020-01-17 07:04 | PC.NURSE ---
regular diet ordered
--- NOTE | 2020-01-17 07:24 | PC.NURSE ---
ASSUMED CARE FROM SINA ARCHIBALD AND EM[facility], PT RESTING IN BED, VSS.
[2020-01-17 08:05] LABS: Glucose Point of Care 135 (65-105)
[2020-01-17] MEDS: ACETAMINOPHEN 325 MG TABLET 650 MG PO ×3 (08:11→20:45)
--- NOTE | 2020-01-17 08:15 | PC.NURSE ---
DR THOMAS AT BEDSIDE ROUNDING ON PT.
[2020-01-17] MEDS: THIAMINE HCL 200 MG/2 ML VIAL 100 MG IV PUSH (09:04)
--- NOTE | 2020-01-17 09:38 | ADMGEN ---
This patient, Marisa Lott, was admitted to Medical Room 249-01. Patient/family oriented to hospital policies and general routines including ID bracelet, bed and alarms, visiting hours, pain management, procedures, bathroom and other care routines, personal items, smoking policy, room service/diet, and visiting hours. Valuables list has been completed. Information on how to activate the Rapid Response Team has been discussed. Patient/Family are encouraged to report perceived risks to care and to ask questions if they do not understand what they are told or what they should do.
[2020-01-17 11:10] LABS: Hemoglobin 13.1 g/dL (12.0-15.0); Immature Platelet Fraction Pct 3.3 % (0.9-11.2); Mean Corpuscular HGB Conc 33.6 g/dl (32-36); Mean Corpuscular Hemoglobin 32.1 pg (26-34); Mean Corpuscular Volume 95.6 fl (80-100); Mean Platelet Volume 9.8 fl (7.4-10.4); Platelet Count Result 149 k/mm3 (150-375); Red Blood Count 4.08 M/mm3 (4.2-5.4); Red Cell Distribution Width 17.4 % (11.5-14.5); White Blood Count 4.8 K/mm3 (4.5-10.0)
[2020-01-17 11:19] LABS: Alanine Aminotransferase 38 U/L (4-35); Alkaline Phosphatase 180 U/L (38-126); Anion Gap 8.9 mmol/L (7-16); Aspartate Amino Transferase 45 U/L (14-36); Bilirubin,Total 0.7 mg/dL (0.2-1.3); Blood Urea Nitrogen 8 mg/dL (7-17); Calcium 8.2 mg/dL (8.4-10.2); Carbon Dioxide 31 mmol/L (22-30); Chloride 97 mmol/L (98-107); Estimated CRCL calculation 139 ml/min; Estimated Glomerular Filt Rate > 60; Glucose 177 mg/dL (65-105); Magnesium 1.6 mg/dL (1.6-2.3); Potassium 3.9 mmol/L (3.4-5.0); Sodium 133 mmol/L (137-145)
[2020-01-17 11:21] LABS: Glucose Point of Care 201 (65-105)
[2020-01-17] MEDS: INSULIN ASPART (*BKC) 100 UNITS/ML SUB-Q (11:41)
--- NOTE | 2020-01-17 16:01 | PM.IMPN ---
Progress Note: A&P Assessment and Plan (1) Alcohol withdrawal seizure: Qualifiers: Complication of substance-induced condition: with unspecified complication Qualified Code(s): F10.239 - Alcohol dependence with withdrawal, unspecified; R56.9 - Unspecified convulsions Code(s): F10.239 - Alcohol dependence with withdrawal, unspecified; R56.9 - Unspecified convulsions Status: Acute Assessment and Plan: Admit to ICU, telemetry, neurochecks, CIWA-AR protocol. seizure and aspiration precautions. Ativan prn for any withdrawal and seizure like activity. 01/17/20 16:01 Patient is a 39-year-old female with history of alcohol abuse and history of chronic pancreatitis apparently patient had been drinking for last 12 days and then stop for 4 days while at the [employer] yesterday patient had a seizure fell and struck her head initially patient refused to come to emergency department and went home, later presented to emergency department for further evaluation patient had a CT scan of the C-spine did not show any acute injury, and a CT scan of the head did not show any injury to the brain however patient is significant posterior occipital contusion which he suffered after she fell during her seizures at the [employer], patient also had a CT scan of the abdomen which showed patient has a acute on chronic pancreatitis with decrease in size of pseudocysts but development of significant edema along the lesser curvature of the stomach. patient is clinically stable and her last drink was 4 days ago she is out of DT risk, to further evaluate injury will do MRI of the brain, will have a PT OT evaluate the patient and further recommendation to follow, will monitor patient with CIWA protocol. (2) Alcohol withdrawal: Qualifiers: Complication of substance-induced condition: with unspecified complication Qualified Code(s): F10.239 - Alcohol dependence with withdrawal, unspecified Code(s): F10.239 - Alcohol dependence with withdrawal, unspecified Status: Acute Assessment and Plan: CIWA-AR protocol. Thiamine IV daily. Ativan withdrawal prophylaxis. Start Librium in am when the patient is more alert and awake. (3) Fall: Qualifiers: Encounter type: initial encounter Qualified Code(s): W19.XXXA - Unspecified fall, initial encounter Code(s): W19.XXXA - Unspecified fall, initial encounter Status: Acute Assessment and Plan: fall precautions. (4) Scalp contusion: Qualifiers: Encounter type: initial encounter Qualified Code(s): S00.03XA - Contusion of scalp, initial encounter Code(s): S00.03XA - Contusion of scalp, initial encounter Status: Acute Assessment and Plan: secondary to acute seizure and fall. CT brain was negative. (5) Hypokalemia: Code(s): E87.6 - Hypokalemia Status: Acute Assessment and Plan: Replace potassium. Monitor serum potassium. continue to replace as needed. (6) Transaminitis: Code(s): R74.0 - Nonspecific elevation of levels of transaminase and lactic acid dehydrogenase [LDH] Status: Chronic Assessment and Plan: likely seconadry to chronic alcohol abuse. Monitor LFTs. (7) Chronic pancreatitis: Qualifiers: Pancreatitis type: alcohol induced Qualified Code(s): K86.0 - Alcohol-induced chronic pancreatitis Code(s): K86.1 - Other chronic pancreatitis Status: Acute Assessment and Plan: stable. (8) IDDM (insulin dependent diabetes mellitus): Code(s): E11.9 - Type 2 diabetes mellitus without complications; Z79.4 - correction (current) use of insulin Status: Chronic Assessment and Plan: accuchecks, SSI coverage, hypoglycemic protocol. (9) Anxiety: Code(s): F41.9 - Anxiety disorder, unspecified Status: Acute Assessment and Plan: resume home meds when appropriate. (10) Depression: Qualifiers: Emmaes
[2020-01-17 16:24] LABS: Glucose Point of Care 141 (65-105)
[2020-01-17 21:28] LABS: Glucose Point of Care 233 (65-105)
[2020-01-18] VITALS (8 sets, daily range): BP systolic 108–113; BP diastolic 66–78; PULSE 67–98; RESP 16; TEMP 36.2–36.6; O2SAT 99–100
[2020-01-18 05:34] LABS: Hematocrit 36.6 % (37.0-47.0); Hemoglobin 12.4 g/dL (12.0-15.0); Immature Platelet Fraction Pct 3.9 % (0.9-11.2); Mean Corpuscular HGB Conc 33.9 g/dl (32-36); Mean Corpuscular Hemoglobin 32.3 pg (26-34); Mean Corpuscular Volume 95.3 fl (80-100); Mean Platelet Volume 10.3 fl (7.4-10.4); Platelet Count Result 127 k/mm3 (150-375); Red Blood Count 3.84 M/mm3 (4.2-5.4); Red Cell Distribution Width 17.3 % (11.5-14.5); White Blood Count 4.7 K/mm3 (4.5-10.0)
[2020-01-18 05:46] LABS: Alanine Aminotransferase 33 U/L (4-35); Albumin Level 2.7 g/dL (3.5-5.1); Alkaline Phosphatase 168 U/L (38-126); Aspartate Amino Transferase 42 U/L (14-36); Bilirubin,Total 0.7 mg/dL (0.2-1.3); Blood Urea Nitrogen 8 mg/dL (7-17); Carbon Dioxide 28 mmol/L (22-30); Chloride 101 mmol/L (98-107); Estimated CRCL calculation 139 ml/min; Estimated Glomerular Filt Rate > 60; Glucose 166 mg/dL (65-105); Magnesium 1.6 mg/dL (1.6-2.3); Sodium 133 mmol/L (137-145)
[2020-01-18] MEDS: ACETAMINOPHEN 325 MG TABLET 650 MG PO ×2 (07:48→12:21)
[2020-01-18] MEDS: POTASSIUM CHLORIDE 20 MEQ TABLET 40 MEQ PO (09:24)
[2020-01-18] MEDS: MAGNESIUM OXIDE 400 MG TABLET PO (09:24)
[2020-01-18] MEDS: THIAMINE HCL 200 MG/2 ML VIAL 100 MG IV PUSH (09:25)
[2020-01-18 09:45] LABS: Glucose Point of Care 122 (65-105)
[2020-01-18 11:36] LABS: Glucose Point of Care 276 (65-105)
[2020-01-18] MEDS: INSULIN ASPART (*BKC) 100 UNITS/ML SUB-Q ×2 (12:02→17:03)
[2020-01-18 15:41] LABS: Anion Gap 9.6 mmol/L (7-16); Blood Urea Nitrogen 8 mg/dL (7-17); Calcium 8.3 mg/dL (8.4-10.2); Carbon Dioxide 26 mmol/L (22-30); Chloride 101 mmol/L (98-107); Estimated CRCL calculation 139 ml/min; Estimated Glomerular Filt Rate > 60; Glucose 257 mg/dL (65-105); Magnesium 1.5 mg/dL (1.6-2.3); Potassium 4.6 mmol/L (3.4-5.0); Sodium 132 mmol/L (137-145)
[2020-01-18 17:11] LABS: Glucose Point of Care 293 (65-105)
--- NOTE | 2020-01-18 22:58 | PC.NURSE ---
[id number] Pt stated had to leave leda is in ER and is confused and she needs to go down with him. Call placed to Dr Dodge and Dr Dodge declined releasing pt. Pt is leaving AMA. AMA formed signed.
[2020-01-19 00:05] LABS: Glucose Point of Care 286 (65-105)
--- NOTE | 2020-01-19 12:10 | PM.DS ---
DS: Admitting Diagnosis Admitting Diagnosis Admitting Diagnosis: Alcohol dependence with withdrawal, unspecified DS: Discharge Diagnosis Discharge Diagnosis (1) Alcohol withdrawal seizure: Qualifiers: Complication of substance-induced condition: with unspecified complication Qualified Code(s): F10.239 - Alcohol dependence with withdrawal, unspecified; R56.9 - Unspecified convulsions Code(s): F10.239 - Alcohol dependence with withdrawal, unspecified; R56.9 - Unspecified convulsions Status: Acute Assessment and Plan: Admit to ICU, telemetry, neurochecks, CIWA-AR protocol. seizure and aspiration precautions. Ativan prn for any withdrawal and seizure like activity. 01/17/20 16:01 Patient is a 39-year-old female with history of alcohol abuse and history of chronic pancreatitis apparently patient had been drinking for last 12 days and then stop for 4 days while at the [employer] yesterday patient had a seizure fell and struck her head initially patient refused to come to emergency department and went home, later presented to emergency department for further evaluation patient had a CT scan of the C-spine did not show any acute injury, and a CT scan of the head did not show any injury to the brain however patient is significant posterior occipital contusion which he suffered after she fell during her seizures at the [employer], patient also had a CT scan of the abdomen which showed patient has a acute on chronic pancreatitis with decrease in size of pseudocysts but development of significant edema along the lesser curvature of the stomach. patient is clinically stable and her last drink was 4 days ago she is out of DT risk, to further evaluate injury will do MRI of the brain, will have a PT OT evaluate the patient and further recommendation to follow, will monitor patient with [facility] protocol. (2) Alcohol withdrawal: Qualifiers: Complication of substance-induced condition: with unspecified complication Qualified Code(s): F10.239 - Alcohol dependence with withdrawal, unspecified Code(s): F10.239 - Alcohol dependence with withdrawal, unspecified Status: Acute Assessment and Plan: [facility]-AR protocol. Thiamine IV daily. Ativan withdrawal prophylaxis. Start Librium in am when the patient is more alert and awake. (3) Fall: Qualifiers: Encounter type: initial encounter Qualified Code(s): W19.XXXA - Unspecified fall, initial encounter Code(s): W19.XXXA - Unspecified fall, initial encounter Status: Acute Assessment and Plan: fall precautions. (4) Scalp contusion: Qualifiers: Encounter type: initial encounter Qualified Code(s): S00.03XA - Contusion of scalp, initial encounter Code(s): S00.03XA - Contusion of scalp, initial encounter Status: Acute Assessment and Plan: secondary to acute seizure and fall. CT brain was negative. (5) Hypokalemia: Code(s): E87.6 - Hypokalemia Status: Acute Assessment and Plan: Replace potassium. Monitor serum potassium. continue to replace as needed. (6) Transaminitis: Code(s): R74.0 - Nonspecific elevation of levels of transaminase and lactic acid dehydrogenase [LDH] Status: Chronic Assessment and Plan: likely seconadry to chronic alcohol abuse. Monitor LFTs. (7) Chronic pancreatitis: Qualifiers: Pancreatitis type: alcohol induced Qualified Code(s): K86.0 - Alcohol-induced chronic pancreatitis Code(s): K86.1 - Other chronic pancreatitis Status: Acute Assessment and Plan: stable. (8) IDDM (insulin dependent diabetes mellitus): Code(s): E11.9 - Type 2 diabetes mellitus without complications; Z79.4 - nursing home (current) use of insulin Status: Chronic Assessment and Plan: accuchecks, SSI coverage, hypoglycemic protocol. (9) Anxiety: Code(s): F41.9 - Anxiety disorder, unspecified Status:
--- NOTE | 2020-01-19 12:15 | PM.IMPN ---
Progress Note: A&P Assessment and Plan (1) Alcohol withdrawal seizure: Qualifiers: Complication of substance-induced condition: with unspecified complication Qualified Code(s): F10.239 - Alcohol dependence with withdrawal, unspecified; R56.9 - Unspecified convulsions Code(s): F10.239 - Alcohol dependence with withdrawal, unspecified; R56.9 - Unspecified convulsions Status: Acute Assessment and Plan: Admit to ICU, telemetry, neurochecks, CIWA-AR protocol. seizure and aspiration precautions. Ativan prn for any withdrawal and seizure like activity. Patient is a 39-year-old female with history of alcohol abuse and history of chronic pancreatitis apparently patient had been drinking for last 12 days and then stop for 4 days while at the [employer] yesterday patient had a seizure fell and struck her head initially patient refused to come to emergency department and went home, later presented to emergency department for further evaluation patient had a CT scan of the C-spine did not show any acute injury, and a CT scan of the head did not show any injury to the brain however patient is significant posterior occipital contusion which he suffered after she fell during her seizures at the [employer], patient also had a CT scan of the abdomen which showed patient has a acute on chronic pancreatitis with decrease in size of pseudocysts but development of significant edema along the lesser curvature of the stomach. patient is clinically stable and her last drink was 4 days ago she is out of DT risk, to further evaluate injury will do MRI of the brain, will have a PT OT evaluate the patient and further recommendation to follow, will monitor patient with CIWA protocol. (2) Alcohol withdrawal: Qualifiers: Complication of substance-induced condition: with unspecified complication Qualified Code(s): F10.239 - Alcohol dependence with withdrawal, unspecified Code(s): F10.239 - Alcohol dependence with withdrawal, unspecified Status: Acute Assessment and Plan: CIWA-AR protocol. Thiamine IV daily. Ativan withdrawal prophylaxis. Start Librium in am when the patient is more alert and awake. (3) Fall: Qualifiers: Encounter type: initial encounter Qualified Code(s): W19.XXXA - Unspecified fall, initial encounter Code(s): W19.XXXA - Unspecified fall, initial encounter Status: Acute Assessment and Plan: fall precautions. (4) Scalp contusion: Qualifiers: Encounter type: initial encounter Qualified Code(s): S00.03XA - Contusion of scalp, initial encounter Code(s): S00.03XA - Contusion of scalp, initial encounter Status: Acute Assessment and Plan: secondary to acute seizure and fall. CT brain was negative. (5) Hypokalemia: Code(s): E87.6 - Hypokalemia Status: Acute Assessment and Plan: Replace potassium. Monitor serum potassium. continue to replace as needed. (6) Transaminitis: Code(s): R74.0 - Nonspecific elevation of levels of transaminase and lactic acid dehydrogenase [LDH] Status: Chronic Assessment and Plan: likely seconadry to chronic alcohol abuse. Monitor LFTs. (7) Chronic pancreatitis: Qualifiers: Pancreatitis type: alcohol induced Qualified Code(s): K86.0 - Alcohol-induced chronic pancreatitis Code(s): K86.1 - Other chronic pancreatitis Status: Acute Assessment and Plan: stable. (8) IDDM (insulin dependent diabetes mellitus): Code(s): E11.9 - Type 2 diabetes mellitus without complications; Z79.4 - prison (current) use of insulin Status: Chronic Assessment and Plan: accuchecks, SSI coverage, hypoglycemic protocol. (9) Anxiety: Code(s): F41.9 - Anxiety disorder, unspecified Status: Acute Assessment and Plan: resume home meds when appropriate. (10) Depression: Qualifiers: Depression Type: unspeci
== END 2020-01-18 22:45 | disposition left against medical advice (07) | DRG 770 ==
LOC: ANHED 01-17 01:17 → ANH2MED 01-17 11:18 → ANHICU 01-22 15:05
PROVIDERS: Emergency Medicine Emergency Medical Services; Admitting Provider Family Medicine; Emergency Provider Emergency Medicine; PCP Family Medicine; Visit Provider Family Medicine
DX: F10.239 Alcohol dependence with withdrawal, unspecified (principal); R56.9 Unspecified convulsions; K85.20 Alcohol induced acute pancreatitis without necrosis or infection; K86.0 Alcohol-induced chronic pancreatitis; S00.03XA Contusion of scalp, initial encounter; W18.39XA Other fall on same level, initial encounter; R74.0 Nonspecific elevation of levels of transaminase and lactic acid dehydrogenase [LDH]; E87.6 Hypokalemia; E11.9 Type 2 diabetes mellitus without complications; F32.9 Major depressive disorder, single episode, unspecified; F41.9 Anxiety disorder, unspecified; F17.210 Nicotine dependence, cigarettes, uncomplicated; Z79.4 Long term (current) use of insulin; E78.5 Hyperlipidemia, unspecified; Y90.0 Blood alcohol level of less than 20 mg/100 ml; Z86.718 Personal history of other venous thrombosis and embolism
CPT/HCPCS: 36415; 51701; 70450; 70553; 72125; 74177; 80048; 80053; 80307; 81001; 81025; 82948; 83735; 85025; 85027; 85055; 96365; 96375; 97161; 97165; 99285; A9270; A9577; J1815; J2060; J3411; J3475; J3480; J7121; Q9967

== ENCOUNTER 2020-02-06 20:08 | Emergency (ER) | payer BC, SELFPAY ==
--- NOTE | ~2020-02-06 | XR_ITS ---
EXAMINATION: XR chest 1V portable 02/06/2020 20:43 INDICATION: Cough PROCEDURE: AP portable chest COMPARISON: 09/25/2019 FINDINGS: The lungs are clear. The cardiomediastinal silhouette is within normal limits. There are no pleural effusions. There is no pneumothorax suspected. There are multiple screws in the left hum erus, partially visualized. IMPRESSION: 1: NO ACUTE CARDIOPULMONARY DISEASE. Reviewed, dictated and finalized at location A.
--- NOTE | ~2020-02-06 | CT_ITS ---
EXAMINATION: CTA chest PE protocol DATE: 02/06/2020 23:00 CDT INDICATION: Shortness of breath. Chest pain and cough. TECHNIQUE: Computed tomographic angiography (CTA) of the chest was performed with 100 mL Omnipaque-35 0 intravenous contrast. The dose-length product was 225.71 mGy-cm. Maximum intensity projection 3D-re constructions of the aorta and other arteries were constructed by the technologist on a separate work station. Automated exposure control and iterative reconstruction technique were employed. COMPARISON: CT dated 03/09/2019. FINDINGS: Study is technically adequate without evidence for pulmonary embolism. Heart size normal. N o significant pleural or pericardial effusion. No focal airspace consolidation. No pneumothorax. No e ndobronchial lesion. No pulmonary nodules or masses. No thoracic lymphadenopathy. Diffuse fatty infiltration of the liver. There are pancreatic calcifications, consistent with chronic pancreatitis. There is abnormal thickening of the stomach, consistent with gastritis. IMPRESSION: 1. No evidence for pulmonary embolism. No acute cardiopulmonary disease. 2: Chronic pancreatitis. 3: Gastric wall thickening, suspicious for gastritis. 4: Hepatic steatosis. Reviewed, dictated and finalized at location A.
[2020-02-06 20:11] VITALS: BP 109/53; PULSE 93; RESP 20; TEMP 36.8; O2SAT 96
--- NOTE | 2020-02-06 20:20 | ECG_ITS ---
Measurements Intervals [place] Rate: 91 P: 40 [place]: 159 QRS: 3 QRSD: 95 T: 14 QT: 380 QTc: 468 Interpretive Statements SINUS RHYTHM DELAYED PRECORDIAL R/S TRANSITION BORDERLINE T WAVE ABNORMALITY- INFERIOR LEADS BASELINE ARTIFACT- V5 BORDERLINE ECG Electronically Signed On 02-07-2020 10:00:04 CDT by Duran Grey D.O.
[2020-02-06 21:01] LABS: Basophils Percent Auto 0.3 % (0.2-1.2); Eosinophils Absolute Auto 0.1 K/mm3 (0-0.3); Eosinophils Percent Auto 0.7 % (0-4.4); Hematocrit 40.1 % (37.0-47.0); Immature Granulocyte Absolute 0.02 K/mm3 (0.00-0.031); Immature Granulocyte Percent A 0.3 % (0-0.5); Lymphocytes Absolute Auto 1.77 K/mm3 (0.9-3.2); Lymphocytes Percent Auto 23.5 % (18.3-44.2); Mean Corpuscular HGB Conc 34.9 g/dl (32-36); Mean Corpuscular Hemoglobin 33.6 pg (26-34); Mean Corpuscular Volume 96.2 fl (80-100); Mean Platelet Volume 9.4 fl (7.4-10.4); Monocytes Absolute Auto 0.9 K/mm3 (0.1-0.6); Neutrophils Absolute Auto 4.8 K/mm3 (1.3-6.7); Neutrophils Percent Auto 63.2 % (45.5-73.1); Platelet Count Result 185 k/mm3 (150-375); Red Blood Count 4.17 M/mm3 (4.2-5.4); Red Cell Distribution Width 17.2 % (11.5-14.5); White Blood Count 7.5 K/mm3 (4.5-10.0)
[2020-02-06 21:12] LABS: Anion Gap 9 mmol/L (8-16); Blood Urea Nitrogen 3 mg/dL (7-17); Calcium 8.2 mg/dL (8.4-10.2); Carbon Dioxide 25 mmol/L (22-30); Chloride 107 mmol/L (98-107); Estimated CRCL calculation 129 ml/min; Estimated Glomerular Filt Rate > 60; Glucose 130 mg/dL (65-105); Potassium 2.9 mmol/L (3.4-5.0); Sodium 141 mmol/L (137-145)
[2020-02-06] MEDS: SODIUM CHLORIDE 0.9% IV 1,000 ML 999 ML IV CONT (21:44)
[2020-02-06] MEDS: POTASSIUM CHLORIDE 20 MEQ TABLET 40 MEQ PO (21:45)
[2020-02-06 23:01] VITALS: BP 97/66; PULSE 79; RESP 20; O2SAT 100
--- NOTE | 2020-02-06 23:11 | PC.NURSE ---
report received at this time. pt resting on stretcher in NAD. RR even and unlabored, VS stable. pt remains hooked up to monitor. will continue to monitor pt for baseline status changes.
--- NOTE | 2020-02-06 23:16 | ED.GENADULT ---
HPI - General Adult General Chief complaint: Dizziness Stated complaint: cp Time Seen by Provider: 02/06/20 20:14 History of Present Illness HPI narrative: Patient is a 39-year-old female who presents the ER with fatigue and dizziness. Reports she is just been feeling rundown as of late. Has history of chronic pancreatitis and reports that her writing her home has COVID-19. She went got tested today because she is trying to get into rehab. She has no fever/chills/runny nose/sore throat/productive cough. She does report that she has discomfort when she takes a deep breath and it is an aching in the center of her chest. No previous PE. No lower extremity swelling or trauma. Related Data Home Medications Medication Instructions Recorded Confirmed insulin glargine 100 unit/mL (3 25 unit SUB-Q HS 07/20/19 01/17/20 mL) subcutaneous pen insulin lispro 100 unit/mL See Rx Instructions SUB-Q TID ml 10/18/19 01/17/20 subcutaneous pen pregabalin 150 mg capsule 150 mg PO BID 10/18/19 01/17/20 bupropion HCl [Wellbutrin SR] 150 mg PO Q12H 01/17/20 01/17/20 Allergies Allergy/AdvReac Type Severity Reaction Status Date / Time No Known Allergies Allergy Unknown Verified 02/06/20 20:22 Review of Systems Review of Systems: All systems reviewed & are unremarkable except as noted in HPI and below Constitutional: Constitutional: Denies chills, Reports fatigue, Denies fever(s) and Reports weakness ENT: Denies nasal congestion and Denies sore throat Cardiovascular: Cardiovascular: Reports chest pain, Denies rapid heart rate and Denies radiating jaw, neck or arm pain Respiratory: Respiratory: Denies cough, Reports dyspnea and Denies wheezing Gastrointestinal: Gastrointestinal: Denies abdominal pain, Denies nausea and Denies vomiting [facility] Past Medical History Medical History (Updated 02/06/20 @ 23:25 by Ulysses Santiago MD) Anxiety Depression DVT (deep venous thrombosis) Dyslipidemia Hepatitis IDDM (insulin dependent diabetes mellitus) Necrotizing pancreatitis Surgical History Surgical History History of section 2003, 2010, 2016 History of ERCP 06/2019 History of surgery on arm Left - 2019 History of tubal ligation [place] teeth extracted age 23 Social History Social History Smoking packs per day: 0.5 Smoking cigarettes per day: 10.0 Years smoked: 18 Smoking pack-years: 9.00 Smoking status: Current every day smoker Tobacco type: cigarettes Second hand tobacco smoke exposure: Yes Alcohol intake: current Drinks per week: 10 Substance use: former Substance use type: marijuana Gender identity (if verbalized by the patient): Female Exam Narrative: Exam Narrative: GENERAL: Dirty/unkempt appearance, well-nourished, and in no acute distress. HEAD: Normocephalic, atraumatic. ENT: Mucous membranes moist. CHEST: Clear to auscultation. No respiratory distress. No palpation anterior chest wall. HEART: Regular rate and rhythm. Normal peripheral pulses. ABDOMEN: Soft, nontender, nondistended. EXTREMITIES: Normal range of motion. No edema. SKIN: Warm, dry, no rash. NEURO: Alert and oriented x3. Course Vital Signs Vital signs: Vital Signs Temperature 98.2 F 02/06/20 20:11 Pulse Rate 93 02/06/20 20:11 Respiratory Rate 20 02/06/20 20:11 Blood Pressure 109/53 L 02/06/20 20:11 Pulse Oximetry 96 02/06/20 20:11 Temperature 98.2 F 02/06/20 20:11 Pulse Rate 79 02/06/20 23:01 Respiratory Rate 20 02/06/20 23:01 Blood Pressure 97/66 L 02/06/20 23:01 Pulse Oximetry 100 02/06/20 23:01 Medical Decision Making Vital Signs Vital Signs: Vital Signs Temperature 98.2 F 02/06/20 20:11 Pulse Rate 93 02/06/20 20:11 Respiratory Rate 20 02/06/20 20:11 Blood Pressure 109/53 L 02/06/20 20:11 Pulse Oximetry 96 02/06/20 20:11 Tem
[2020-02-06 23:36] VITALS: BP 106/68; PULSE 89; RESP 18; O2SAT 98
== END 2020-02-06 23:37 | disposition home or self-care (01) ==
PROVIDERS: Emergency Provider Emergency Medicine; PCP Family Medicine
DX: R07.89 Other chest pain (principal); E87.6 Hypokalemia; E11.9 Type 2 diabetes mellitus without complications; Z79.4 Long term (current) use of insulin; F41.9 Anxiety disorder, unspecified; F32.9 Major depressive disorder, single episode, unspecified
CPT/HCPCS: 36415; 71045; 71275; 80048; 81025; 85025; 85380; 93005; 96360; 99284; A9270; J7030; Q9967

== ENCOUNTER 2020-06-02 22:12 | Emergency (ER) | payer BC, SELFPAY ==
--- NOTE | ~2020-06-02 | CT_ITS ---
EXAMINATION: CT brain wo con INDICATION: Transient alteration of awareness COMPARISON: 01/16/2020 TECHNIQUE: Standard unenhanced head CT. The dose-length product (DLP) was 681.00 mGy-cm. The mA was a djusted according to patient size. Iterative reconstruction technique was employed. FINDINGS: There is no intracranial hemorrhage, acute infarction, or abnormal mass lesion. The ventric les are normal. There is no abnormal mass effect or midline shift. The ackerman-white matter differentiat ion is normal. The basal cisterns are patent. The orbits are normal. There is mild mucosal thickening of the paranasal sinuses. IMPRESSION: 1. No acute intracranial abnormality. Reviewed, dictated and finalized at location A. STUDY STATISTICIAN
--- NOTE | ~2020-06-02 | XR_ITS ---
EXAMINATION: XR chest 1V portable INDICATION: Altered mental status TECHNIQUE: Portable AP chest at 2255 hours COMPARISON: 02/06/2020 FINDINGS: The lungs are free of acute opacities. There is no pleural effusion or pneumothorax. The ca rdiomediastinal silhouette is normal. Changes of prior ORIF are noted in the left proximal humerus. IMPRESSION: 1. No acute cardiopulmonary abnormality. Reviewed, dictated and finalized at location A. D BANK BUSINESS MANAGER
--- NOTE | 2020-06-02 22:17 | ECG_ITS ---
Measurements Intervals [place] Rate: 90 P: 52 [place]: 186 QRS: 15 QRSD: 93 T: 36 QT: 384 QTc: 472 Interpretive Statements SINUS RHYTHM NORMAL ECG Electronically Signed On 06-03-2020 8:11:09 [employer]OUNT SUPPORT [employer]OCIATE by Duran Grey D.O.
[2020-06-02 22:25] VITALS: BP 101/61; PULSE 92; RESP 14; TEMP 36.5; O2SAT 94
[2020-06-02] MEDS: SODIUM CHLORIDE 0.9% IV 2,000 ML 999 ML IV CONT (22:30)
[2020-06-02 22:48] LABS: Pregnancy On Board Control Positive; Urine Pregnancy Test Negative
[2020-06-02 22:50] LABS: Add Urine Microscopic? YES; Appearance Urine Clear (Clear); Bilirubin Urine Negative (Negative); Blood Urine Negative (Negative); Color Urine Yellow (Yellow); Glucose Urine UA 3+ (Negative); Ketones Urine Trace (Negative); Leukocyte Esterase Ur Negative LEU/UL (Negative); Nitrate Urine Negative (Negative); Protein Urine Negative (Negative); Urobilinogen Urine 0.2 mg/dL (0.2-1.0); pH Urine 5.5 (5.0-8.0)
[2020-06-02 22:56] LABS: Amphetamine Screen Urine Negative (Negative); Bacteria Urine Trace /hpf; Barbiturate Screen Urine Negative (Negative); Benzodiazepines Screen Urine Positive (Negative); Cannabinoid Screen Urine Negative (Negative); Cocaine Screen Urine Negative (Negative); Methadone Screen Urine Negative (Negative); Opiate Screen Urine Negative (Negative); Phencyclidine Screen Urine Negative (Negative); RBC Urine 0-2 /hpf (0-2); Squamous Epithelial Cell Urine Few /hpf (Few); WBC Urine 0-3 /hpf (0-3)
[2020-06-02 23:00] VITALS: RESP 20
[2020-06-02 23:00] LABS: Mean Corpuscular HGB Conc 31.6 g/dL (32.0-36.0); Mean Corpuscular Hemoglobin 29.6 pg (27.0-31.0); Mean Corpuscular Volume 93.8 fL (78.0-102.0); Platelet Count Result 251 K/mm3 (150-420); Red Blood Count 4.05 M/mm3 (4.20-5.40); Red Cell Distribution Width 13.8 % (11.6-14.4); White Blood Count 6.2 K/mm3 (4.8-10.8)
[2020-06-02 23:01] LABS: Basophils Absolute Auto 0.03 K/mm3 (0.00-0.10); Basophils Percent Auto 0.5 % (0.0-1.0); Eosinophils Absolute Auto 0.07 K/mm3 (0.02-0.50); Eosinophils Percent Auto 1.1 % (1.0-6.0); Immature Granulocyte Absolute 0.02 K/mm3 (0.00-0.00); Immature Granulocyte Percent A 0.3 % (0.0-0.0); Lymphocytes Absolute Auto 3.04 K/mm3 (1.10-4.50); Lymphocytes Percent Auto 49.2 % (18.0-42.0); Mean Platelet Volume 9.7 fl (9.2-11.8); Monocytes Absolute Auto 0.36 K/mm3 (0.10-0.90); Monocytes Percent Auto 5.8 % (2.0-11.0); Neutrophils Absolute Auto 2.7 K/mm3 (1.7-7.2); Neutrophils Percent Auto 43.1 % (50.0-70.0)
[2020-06-02 23:03] LABS: INR 0.9; Partial Thromboplastin Time 25.4 SEC (23.90-30.70); Prothrombin Time 9.8 Seconds (9.64-11.0)
--- NOTE | 2020-06-02 23:05 | PC.NURSE ---
report to garry
[2020-06-02 23:09] LABS: Alanine Aminotransferase 31 U/L (14-59); Albumin Level 2.9 g/dL (3.4-5.0); Alkaline Phosphatase 123 U/L (46-116); Anion Gap 9 mmol/L (8-16); Aspartate Amino Transferase 15 U/L (15-37); Bilirubin,Total 0.1 mg/dL (0.00-1.00); Blood Urea Nitrogen 16 mg/dL (7-18); Calcium 8.7 mg/dL (8.5-10.1); Carbon Dioxide 28 mmol/L (21-32); Chloride 101 mmol/L (98-108); Creatine Kinase 44 U/L (26-192); Estimated Glomerular Filt Rate > 60; Potassium 3.9 mmol/L (3.5-5.1); Salicylate 2.6 mg/dL (2.8-20.0); Sodium 138 mmol/L (136-145); Thyroid Stimulating Hormone 0.77 uIU/mL (0.36-3.74); Total Protein 6.9 g/dL (6.4-8.2); Troponin I 5.6 ng/L (0.00-60.4)
[2020-06-02 23:10] LABS: Acetaminophen < 2 ug/mL (10-30); Ammonia < 10 umol/L (11-32); Ethanol 211 mg/dL (0-6); Glucose 519 mg/dL (70-99); Osmolality Calculated 310 mOsm/kg (285-295)
--- NOTE | 2020-06-02 23:31 | ED.OVERDOSE ---
HPI - Overdose General Chief Complaint: Overdose Stated Complaint: 40YO female w/ known h.o DMI noncompliant with her insulin and also has a known h.o ETOH abuse (drings a handle every day), brought in by EMS after she was found unresponsive by her family at home. She was given Narcan w/ a positive response. ambulance Related Data Home Medications Medication Instructions Recorded Confirmed insulin glargine 100 unit/mL (3 25 unit SUB-Q HS 07/20/19 06/02/20 mL) subcutaneous pen pregabalin 150 mg capsule 150 mg PO BID 10/18/19 06/02/20 escitalopram oxalate 10 mg PO DAILY 06/02/20 06/02/20 hydroxyzine HCl 50 mg PO Q6H PRN 06/02/20 06/02/20 Allergies Allergy/AdvReac Type Severity Reaction Status Date / Time No Known Allergies Allergy Unknown Verified 02/06/20 20:22 Review of Systems Review of Systems: All systems reviewed & are unremarkable except as noted in HPI and below PMFSH Past Medical History Medical History Anxiety Depression DVT (deep venous thrombosis) Dyslipidemia Hepatitis IDDM (insulin dependent diabetes mellitus) Necrotizing pancreatitis Surgical History Surgical History History of section 2003, 2010, 2015 History of ERCP 06/2019 History of surgery on arm Left - 2019 History of tubal ligation [place] teeth extracted age 23 Family History Family History Other Diabetes mellitus Family history of coronary artery disease Family history of dementia Social History Social History Smoking packs per day: 0.5 Smoking cigarettes per day: 10.0 Years smoked: 18 Smoking pack-years: 9.00 Smoking status: Current every day smoker Tobacco type: cigarettes Second hand tobacco smoke exposure: Yes Alcohol intake: current Drinks per week: 10 Substance use: former Substance use type: marijuana Gender identity (if verbalized by the patient): Female Exam Const: General: no acute distress Nutritional Appearance: well nourished Limitations: altered mental status Other: Sleepy, admits to drinking ETOH, denies using illicit drugs HENMT: Head: normal to inspection General nose exam: Normal nares present Mouth: Yes moist mucous membranes Eyes: Conjunctivae: conjunctivae normal Pupils: Equal, round and reactive pupils present Neck: Neck: normal visual inspection Chest: Chest palpation & inspection: normal inspection of the chest Resp: Effort & Inspection: normal respiratory effort Auscultation: clear to auscultation bilaterally Cardio: Rate: regular rate Rhythm: regular rhythm GI: GI Palp: Yes Soft to palpation, No Tenderness to palpation present (GI), No Guarding due to palpation present (GI) and No Rigid due to palpation Skin: General skin exam: normal color Rashes: no rashes Neuro: General: patient oriented x3, moves all extremities, no meningeal signs, no focal motor deficits and CN's II-XI intact bilaterally Cranial nerves: Yes Nystagmus not present Speech: normal speech Gait exam (Neuro): Normal gait present Other: Awakes when aroused answers questions and performs PE but then goes back to sleep. Extrem: General: normal to inspection Psych: Appearance: grossly normal and well kempt Mental Status: mental status grossly normal Affect: normal affect Attitude: cooperative Thought content: Yes Normal thought content present Course Course Emergency Course: Patient now awake and alert feeling better. Her BS down <250mg/dl. Will give her lantus and d/c home. Patient reminded to comply with her medical regimen. Vital Signs Vital signs: Vital Signs Temperature 97.7 F 06/02/20 22:25 Pulse Rate 92 06/02/20 22:25 Respiratory Rate 14 06/02/20 22:25 Blood Pressure 101/61 06/02/20 22:25 Pulse Oximetry 94 06/02/20
[2020-06-02 23:52] LABS: Acetone Negative (Negative)
[2020-06-02 23:56] LABS: Glucose Point of Care 373 (65-105)
[2020-06-03] MEDS: INSULIN HUMAN REGULAR (*BKC) 100 UNITS/ML 20 UNITS IV PUSH (00:08)
[2020-06-03 00:53] LABS: Glucose Point of Care 368 (65-105)
[2020-06-03 01:28] LABS: Glucose Point of Care 290 (65-105)
[2020-06-03] MEDS: SODIUM CHLORIDE 0.9% IV 1,000 ML 999 ML IV CONT (01:35)
[2020-06-03 03:04] LABS: Glucose Point of Care 410 (65-105)
[2020-06-03] MEDS: INSULIN HUMAN REGULAR (*BKC) 100 UNITS/ML 30 UNITS IV PUSH (03:13)
--- NOTE | 2020-06-03 03:40 | PC.NURSE ---
Pt. is up and amb. in room, request father be called if d/c home.
[2020-06-03 03:57] LABS: Glucose Point of Care 280 (65-105)
[2020-06-03] MEDS: INSULIN GLARGINE (*BKC) 100 UNITS/ML 25 UNITS SUB-Q (04:07)
[2020-06-03 04:13] VITALS: BP 100/62; PULSE 80; RESP 20; TEMP 36.9; O2SAT 96
== END 2020-06-03 04:19 | disposition home or self-care (01) ==
PROVIDERS: Emergency Provider Family Medicine
DX: E11.9 Type 2 diabetes mellitus without complications (principal); F10.229 Alcohol dependence with intoxication, unspecified
CPT/HCPCS: 36415; 70450; 71045; 80053; 80307; 81001; 81025; 82010; 82140; 82550; 82948; 84443; 84484; 85025; 85610; 85730; 93005; 96361; 96374; 96376; 99283; 99284; J1815; J7030

== ENCOUNTER 2020-06-07 23:13 | Emergency (ER) | payer BC, SELFPAY ==
[2020-06-07 23:10] VITALS: BP 98/52; PULSE 70; RESP 12; TEMP 36.3; O2SAT 96
--- NOTE | 2020-06-07 23:14 | ED.GENADULT ---
HPI - General Adult General Chief complaint: Alcohol <Neil Encinas DO - Last Filed: 06/08/20 06:55> Stated complaint: intoxicated <Neil Encinas DO - Last Filed: 06/08/20 06:55> Time Seen by Provider: 06/08/20 08:55 <Neil Encinas DO - Last Filed: 06/08/20 06:55> Source: RN notes reviewed <Neil Encinas DO - Last Filed: 06/08/20 06:55> History of Present Illness HPI narrative: Patient presents to emergency department from a local [facility] for alcohol intoxication patient's friend had called EMS as they stated the patient was unresponsive and had vomited patient currently emergency department is awake and alert x3 states she drank 1/5 of vodka this evening she denies any other symptoms at this time denies any fevers or chills chest pain shortness of breath <Neil Encinas DO - Last Filed: 06/08/20 06:55> Related Data Home medications: Home Medications Medication Instructions Recorded Confirmed insulin glargine 100 unit/mL (3 25 unit SUB-Q HS 07/20/19 06/02/20 mL) subcutaneous pen pregabalin 150 mg capsule 150 mg PO BID 10/18/19 06/02/20 escitalopram oxalate 10 mg PO DAILY 06/02/20 06/02/20 hydroxyzine HCl 50 mg PO Q6H PRN 06/02/20 06/02/20 <Neil Encinas DO - Last Filed: 06/08/20 06:55> Allergies/adverse reactions: Allergies Allergy/AdvReac Type Severity Reaction Status Date / Time No Known Allergies Allergy Unknown Verified 02/06/20 20:22 <Neil Encinas DO - Last Filed: 06/08/20 06:55> Review of Systems Review of Systems: Narrative: Gen.: Denies fevers or chills ENT: Denies congestion Respiratory: Denies shortness of breath or cough CV: Denies chest pain or palpitations GI: Denies abdominal pain or diarrhea reports nausea vomiting denies burning, urgency, frequency or hematuria Musculoskeletal: Denies back pain or muscle pain Neuro: Denies numbness, tingling, weakness or focal weakness Skin: Denies rash Except as documented, all other systems reviewed and negative <Neil Encinas DO - Last Filed: 06/08/20 06:55> [facility] Past Medical History Medical History: Medical History Anxiety Depression DVT (deep venous thrombosis) Dyslipidemia Hepatitis IDDM (insulin dependent diabetes mellitus) Necrotizing pancreatitis <Neil Encinas DO - Last Filed: 06/08/20 06:55> Surgical History Surgical History: Surgical History History of section 2003, 2010, 2015 History of ERCP 06/2019 History of surgery on arm Left - 2019 History of tubal ligation [place] teeth extracted age 23 <Neil Encinas DO - Last Filed: 06/08/20 06:55> Family History Family History: Family History Other Diabetes mellitus Family history of coronary artery disease Family history of dementia <Neil Encinas DO - Last Filed: 06/08/20 06:55> Social History Social History: Social History Smoking packs per day: 0.5 Smoking cigarettes per day: 10.0 Years smoked: 18 Smoking pack-years: 9.00 Smoking status: Current every day smoker Tobacco type: cigarettes Second hand tobacco smoke exposure: Yes Alcohol intake: current Drinks per week: 10 Substance use: former Substance use type: marijuana Gender identity (if verbalized by the patient): Female <Neil Encinas DO - Last Filed: 06/08/20 06:55> Exam Narrative: Exam Narrative: APPEARANCE: No acute distress, nontoxic, resting in bed smell of EtOH on breath EYES: PERRL HEENT: Normocephalic, atraumatic, OMM RESPIRATORY: No respiratory distress Clear to auscultation bilaterally with no rhonchi wheezing or rales. CARDIOVASCULAR: Regular rate and rhythm without murmurs rubs or gallops. ABDOMINAL: Soft, nontender
[2020-06-07] MEDS: SODIUM CHLORIDE 0.9% IV 1,000 ML 999 ML IV CONT ×2 (23:30→23:57)
[2020-06-07 23:50] LABS: Alanine Aminotransferase 29 U/L (4-35); Albumin Level 3.9 g/dL (3.5-5.1); Alkaline Phosphatase 130 U/L (38-126); Anion Gap 12 mmol/L (8-16); Aspartate Amino Transferase 31 U/L (14-36); Bilirubin,Total 0.2 mg/dL (0.2-1.3); Blood Urea Nitrogen 10 mg/dL (7-17); Carbon Dioxide 27 mmol/L (22-30); Chloride 98 mmol/L (98-107); Estimated CRCL calculation 105 ml/min; Estimated Glomerular Filt Rate > 60; Glucose 475 mg/dL (65-105); Potassium 3.9 mmol/L (3.4-5.0); Sodium 137 mmol/L (137-145)
[2020-06-07 23:54] LABS: Basophils Absolute Auto 0.1 K/mm3 (0.0-0.1); Basophils Percent Auto 0.7 % (0.2-1.2); Eosinophils Absolute Auto 0.1 K/mm3 (0-0.3); Eosinophils Percent Auto 1.5 % (0-4.4); Hematocrit 38.5 % (37.0-47.0); Hemoglobin 12.8 g/dL (12.0-15.0); Immature Granulocyte Absolute 0.03 K/mm3 (0.00-0.031); Immature Granulocyte Percent A 0.4 % (0-0.5); Lymphocytes Absolute Auto 3.29 K/mm3 (0.9-3.2); Lymphocytes Percent Auto 44.2 % (18.3-44.2); Mean Corpuscular HGB Conc 33.2 g/dl (32-36); Mean Corpuscular Hemoglobin 29.8 pg (26-34); Mean Corpuscular Volume 89.5 fl (80-100); Mean Platelet Volume 9.5 fl (7.4-10.4); Monocytes Absolute Auto 0.3 K/mm3 (0.1-0.6); Monocytes Percent Auto 3.8 % (2.6-8.5); Neutrophils Absolute Auto 3.7 K/mm3 (1.3-6.7); Neutrophils Percent Auto 49.4 % (45.5-73.1); Platelet Count Result 259 k/mm3 (150-375); Red Cell Distribution Width 14.1 % (11.5-14.5); White Blood Count 7.5 K/mm3 (4.5-10.0)
[2020-06-08] VITALS (33 sets, daily range): BP systolic 89–109; BP diastolic 49–74; PULSE 65–97; RESP 12–20; O2SAT 94–100
[2020-06-08 00:08] LABS: Ethanol 389 mg/dL (<10)
[2020-06-08] MEDS: THIAMINE HCL 200 MG/2 ML VIAL 100 MG IV PUSH (00:52)
[2020-06-08 02:35] LABS: Glucose Point of Care 351 (65-105)
[2020-06-08] MEDS: SODIUM CHLORIDE 0.9% IV 1,000 ML 150 ML IV CONT (03:37)
[2020-06-08 04:49] LABS: Glucose Point of Care 368 (65-105)
[2020-06-08] MEDS: INSULIN ASPART (*BKC) 100 UNITS/ML 6 UNITS SUB-Q (05:15)
[2020-06-08 11:27] LABS: Glucose Point of Care 290 (65-105)
[2020-06-08 13:10] LABS: Ethanol < 10 mg/dL (<10)
== END 2020-06-08 13:28 | disposition home or self-care (01) ==
PROVIDERS: Emergency Medicine; Emergency Provider General Practice
DX: F10.129 Alcohol abuse with intoxication, unspecified (principal); E11.65 Type 2 diabetes mellitus with hyperglycemia; F41.9 Anxiety disorder, unspecified; F32.9 Major depressive disorder, single episode, unspecified; Z86.718 Personal history of other venous thrombosis and embolism; E78.5 Hyperlipidemia, unspecified; Z79.4 Long term (current) use of insulin; F17.210 Nicotine dependence, cigarettes, uncomplicated; Y90.8 Blood alcohol level of 240 mg/100 ml or more
CPT/HCPCS: 36415; 80053; 80307; 82948; 85025; 96361; 96374; 99284; J1815; J3411; J7030

== ENCOUNTER 2020-06-08 23:10 | Emergency (ER) | payer BC, SELFPAY ==
[2020-06-08 23:21] VITALS: BP 98/53; PULSE 75; RESP 18; TEMP 37.1; O2SAT 94
--- NOTE | 2020-06-08 23:26 | ED.GENADULT ---
HPI - General Adult General Chief complaint: Psychiatric Symptoms <Neil Encinas DO - Last Filed: 06/09/20 05:57> Stated complaint: ETOH <Neil Encinas DO - Last Filed: 06/09/20 05:57> Time Seen by Provider: 06/08/20 23:12 <Neil Encinas DO - Last Filed: 06/09/20 05:57> Source: RN notes reviewed <Neil Encinas DO - Last Filed: 06/09/20 05:57> History of Present Illness HPI narrative: Patient presents emergency department from a local [facility] via EMS for alcohol intoxication. Per EMS the patient was initially called out for unresponsive episode when EMS arrived at the patient was awake and alert patient states she has been drinking alcohol tonight states she drinks 1/5 of alcohol a day patient was seen in the emergency department last night for the same of note the patient again had elevated blood sugars per EMS the patient states she has not taken any insulin today denies any nausea vomiting or other symptoms <Neil Encinas DO - Last Filed: 06/09/20 05:57> Related Data Home medications: Home Medications Medication Instructions Recorded Confirmed pregabalin 150 mg capsule 150 mg PO BID 10/18/19 06/02/20 escitalopram oxalate 10 mg PO DAILY 06/02/20 06/02/20 hydroxyzine HCl 50 mg PO Q6H PRN 06/02/20 06/02/20 aripiprazole mg 06/09/20 bupropion HCl PO 06/09/20 melatonin mg 06/09/20 <Neil Encinas DO - Last Filed: 06/09/20 05:57> Allergies/adverse reactions: Allergies Allergy/AdvReac Type Severity Reaction Status Date / Time No Known Allergies Allergy Unknown Verified 06/09/20 07:11 <Neil Encinas DO - Last Filed: 06/09/20 05:57> Review of Systems Review of Systems: Narrative: Gen.: Denies fevers or chills ENT: Denies congestion Respiratory: Denies shortness of breath or cough CV: Denies chest pain or palpitations GI: Denies abdominal pain nausea, emesis or diarrhea Musculoskeletal: Denies back pain or muscle pain Neuro: Denies numbness, tingling, weakness or focal weakness Skin: Denies rash Except as documented, all other systems reviewed and negative <Neil Encinas DO - Last Filed: 06/09/20 05:57> [facility] Past Medical History Medical History: Medical History Anxiety Depression DVT (deep venous thrombosis) Dyslipidemia Hepatitis IDDM (insulin dependent diabetes mellitus) Necrotizing pancreatitis <Neil Encinas DO - Last Filed: 06/09/20 05:57> Surgical History Surgical History: Surgical History History of section 2003, 2010, 2015 History of ERCP 06/2019 History of surgery on arm Left - 2019 History of tubal ligation [place] teeth extracted age 23 <Neil Encinas DO - Last Filed: 06/09/20 05:57> Family History Family History: Family History Other Diabetes mellitus Family history of coronary artery disease Family history of dementia <Neil Encinas DO - Last Filed: 06/09/20 05:57> Social History Social History: Social History Smoking packs per day: 0.5 Smoking cigarettes per day: 10.0 Years smoked: 18 Smoking pack-years: 9.00 Smoking status: Current every day smoker Tobacco type: cigarettes Second hand tobacco smoke exposure: Yes Alcohol intake: current Drinks per week: 10 Substance use: former Substance use type: marijuana Gender identity (if verbalized by the patient): Female <Neil Encinas DO - Last Filed: 06/09/20 05:57> Exam Narrative: Exam Narrative: APPEARANCE: No acute distress, nontoxic, resting in bed smell of EtOH on breath EYES: EOMI HEENT: Normocephalic, atraumatic, OMM RESPIRATORY: No respiratory distress Clear to auscultation bilaterally with no rhonchi wheezing or rales. CARDIOVASCULAR: Regular
[2020-06-08] MEDS: SODIUM CHLORIDE 0.9% IV 1,000 ML 999 ML IV CONT (23:44)
[2020-06-08 23:57] LABS: Basophils Percent Auto 0.6 % (0.2-1.2); Eosinophils Absolute Auto 0.1 K/mm3 (0-0.3); Eosinophils Percent Auto 1.6 % (0-4.4); Hematocrit 34.4 % (37.0-47.0); Hemoglobin 11.3 g/dL (12.0-15.0); Immature Granulocyte Absolute 0.01 K/mm3 (0.00-0.031); Immature Granulocyte Percent A 0.1 % (0-0.5); Lymphocytes Absolute Auto 2.53 K/mm3 (0.9-3.2); Lymphocytes Percent Auto 36.9 % (18.3-44.2); Mean Corpuscular HGB Conc 32.8 g/dl (32-36); Mean Corpuscular Hemoglobin 30.1 pg (26-34); Mean Corpuscular Volume 91.5 fl (80-100); Mean Platelet Volume 9.4 fl (7.4-10.4); Monocytes Absolute Auto 0.4 K/mm3 (0.1-0.6); Monocytes Percent Auto 5.7 % (2.6-8.5); Neutrophils Absolute Auto 3.8 K/mm3 (1.3-6.7); Neutrophils Percent Auto 55.1 % (45.5-73.1); Platelet Count Result 209 k/mm3 (150-375); Red Blood Count 3.76 M/mm3 (4.2-5.4); Red Cell Distribution Width 14.2 % (11.5-14.5); White Blood Count 6.9 K/mm3 (4.5-10.0)
[2020-06-09] VITALS (9 sets, daily range): BP systolic 93–141; BP diastolic 52–96; PULSE 66–105; RESP 16–20; TEMP 36.9; O2SAT 93–99
[2020-06-09 00:04] LABS: Add Urine Microscopic? YES; Appearance Urine Clear (Clear); Bilirubin Urine Negative (Negative); Blood Urine Negative (Negative); Color Urine Colorless (Yellow); Glucose Urine UA 3+ mg/dL (Negative); Ketones Urine Negative (Negative); Leukocyte Esterase Ur Negative LEU/UL (Negative); Nitrate Urine Negative (Negative); Protein Urine Negative (Negative); Specific Grav Ur 1.008 (1.001-1.035); Urobilinogen Urine Negative mg/dL (<2.0)
[2020-06-09 00:08] LABS: Alanine Aminotransferase 23 U/L (4-35); Albumin Level 3.3 g/dL (3.5-5.1); Alkaline Phosphatase 111 U/L (38-126); Anion Gap 13 mmol/L (8-16); Aspartate Amino Transferase 28 U/L (14-36); Bilirubin,Total 0.2 mg/dL (0.2-1.3); Blood Urea Nitrogen 6 mg/dL (7-17); Calcium 8.6 mg/dL (8.4-10.2); Carbon Dioxide 24 mmol/L (22-30); Chloride 105 mmol/L (98-107); Estimated CRCL calculation 129 ml/min; Estimated Glomerular Filt Rate > 60; Glucose 440 mg/dL (65-105); Potassium 3.5 mmol/L (3.4-5.0); Sodium 142 mmol/L (137-145)
[2020-06-09 00:22] LABS: Ethanol 319 mg/dL (<10)
--- NOTE | 2020-06-09 00:30 | PC.NURSE ---
etoh moderate impaired
[2020-06-09] MEDS: SODIUM CHLORIDE 0.9% IV 1,000 ML 999 ML IV CONT (02:15)
[2020-06-09 02:35] LABS: Glucose Point of Care 299 (65-105)
[2020-06-09 06:01] LABS: Glucose Point of Care 350 (65-105)
[2020-06-09 06:09] LABS: Glucose Point of Care 330 (65-105)
[2020-06-09] MEDS: INSULIN ASPART (*BKC) 100 UNITS/ML 6 UNITS SUB-Q (06:38)
[2020-06-09 07:24] LABS: Glucose Point of Care 321 (65-105)
--- NOTE | 2020-06-09 07:27 | PC.NURSE ---
Left message with father Babar at [phone]. Patient notified of no answer at this time.
--- NOTE | 2020-06-09 09:05 | PC.NURSE ---
Attempted to call father again at home number at [phone], no answer. Message left.
--- NOTE | 2020-06-09 10:36 | PC.NURSE ---
attempted to contact patients father. no answer and a message was left.
--- NOTE | 2020-06-09 11:06 | PC.NURSE ---
Patient is now stating she is suicidal with a plan of overdose. Dr. Duncan notified and columbia scale done with high risk noted. Moved to room 15 with sitter at bedside. Patient also states she was just released from [facility] with same SI approximately 1 week ago. I am just going through a lot in my life right now.
--- NOTE | 2020-06-09 11:24 | PC.NURSE ---
Report from [facility]. Pt ambulatory to bathroom with sitter.
[2020-06-09 11:38] LABS: Anion Gap 6 mmol/L (8-16); Blood Urea Nitrogen 5 mg/dL (7-17); Calcium 8.3 mg/dL (8.4-10.2); Carbon Dioxide 26 mmol/L (22-30); Chloride 105 mmol/L (98-107); Estimated CRCL calculation 157 ml/min; Estimated Glomerular Filt Rate > 60; Ethanol < 10 mg/dL (<10); Glucose 195 mg/dL (65-105); Potassium 3.9 mmol/L (3.4-5.0); Sodium 137 mmol/L (137-145)
--- NOTE | 2020-06-09 11:58 | PC.NURSE ---
Pt served a meal tray, 1:1 observation continues per sitter.
[2020-06-09 12:00] LABS: Amphetamine Screen Urine Negative (Negative); Barbiturate Screen Urine Negative (Negative); Benzodiazepines Screen Urine Positive (Negative); Cannabinoid Screen Urine Negative (Negative); Cocaine Screen Urine Negative (Negative); Methadone Screen Urine Negative (Negative); Opiate Screen Urine Negative (Negative); Phencyclidine Screen Urine Negative (Negative)
--- NOTE | 2020-06-09 13:15 | PC.NURSE ---
Patient signs voluntary papers required from [facility]. Papers faxed to multiple facilities per Selene from Crisis.
--- NOTE | 2020-06-09 15:27 | PC.NURSE ---
Spoke with Rosibel from [facility], given report. States that they need a covid result prior to accepting the patient.
--- NOTE | 2020-06-09 15:54 | PC.NURSE ---
Papers refaxed to [facility] per request of Crisis.
[2020-06-09 16:30] LABS: Glucose Point of Care 335 (65-105)
[2020-06-09] MEDS: INSULIN HUMAN REGULAR (*BKC) 100 UNITS/ML 6 UNITS SUB-Q (16:54)
--- NOTE | 2020-06-09 16:55 | PC.NURSE ---
Repeat glucose, repeat blood etoh level, and recent VS faxed to Thanh at [facility] @ [phone]. Insulin given sub-Q and dinner tray ordered for patient.
--- NOTE | 2020-06-09 17:10 | PC.NURSE ---
Received call from Evelina at [facility]. Requests more items to be sent.
--- NOTE | 2020-06-09 17:41 | PC.NURSE ---
Addendum entered by Julián Sims RN 06/09/20 18:30: form was sent to [email or web address], should have been faxed to [facility]. Original Note: Voluntary form and copy of covid screening questions sent to Evelina at [email or web address].
--- NOTE | 2020-06-09 17:55 | PC.NURSE ---
Pt eating dinner tray at present. Remains cooperative and pleasant. Sitter remains 1:1 observation per hospital protocol.
[2020-06-09 18:51] LABS: Glucose Point of Care 350 (65-105)
--- NOTE | 2020-06-09 18:51 | PC.NURSE ---
Repeat blood sugar 350mg/dl. [facility] calls requesting pt's social security number and covid screening. Preparing to fax to [facility]
--- NOTE | 2020-06-09 18:58 | PC.NURSE ---
Additional information as needed faxed to Andressa Hoyt @ [facility]
--- NOTE | 2020-06-09 19:26 | PC.NURSE ---
Report to [facility], to continue care.
--- NOTE | 2020-06-09 20:39 | PC.NURSE ---
Beth, from [facility] calls to request patient's drug screen and toxicology report to [phone]. This nurse faxed requested info at this time.
--- NOTE | 2020-06-09 21:32 | PC.NURSE ---
Beth from [facility] calls to get update on patient's blood sugar on what her last result was and what time. This nurse informed Beth of the requested information. Beth stated to call back when patient's blood sugar is 250 or below.
--- NOTE | 2020-06-09 21:33 | PC.NURSE ---
Evelina from [facility] calls to inform this nurse that the patient is accepted to but still waiting for a bed or room number.
[2020-06-09 22:25] LABS: SARS-CoV-2 RNA PCR Negative
--- NOTE | 2020-06-10 02:46 | PC.NURSE ---
This nurse contacts [facility] in regards to patient's room number. This nurse spoke with Rosalba, and rosalba stated to call back in approx 30 min to give report and to get a room number.
--- NOTE | 2020-06-10 02:50 | PC.NURSE ---
Patient's bedside glucose is 309.
[2020-06-10 02:51] VITALS: BP 142/91; PULSE 55; RESP 14; O2SAT 100
[2020-06-10 02:51] LABS: Glucose Point of Care 309 (65-105)
[2020-06-10] MEDS: INSULIN HUMAN REGULAR (*BKC) 100 UNITS/ML 6 UNITS SUB-Q (02:57)
--- NOTE | 2020-06-10 03:41 | PC.NURSE ---
This nurse contacted [facility] for bed number and report, spoke with Aidan, was informed to call back at 0430 since the nurse is in with a patient and an admission. ER charge nurse aware.
--- NOTE | 2020-06-10 04:35 | PC.NURSE ---
This nurse called Maxine at [facility] at [phone]. Maxine was given nurse to nurse report and Maxine gave room number of 5627-A.
--- NOTE | 2020-06-10 04:40 | PC.NURSE ---
Patient's bedside glucose is 271.
--- NOTE | 2020-06-10 04:41 | PC.NURSE ---
Called [facility] to transport patient to [facility], Room 5304. ETA 06:30
[2020-06-10 04:42] LABS: Glucose Point of Care 271 (65-105)
--- NOTE | 2020-06-10 06:40 | PC.NURSE ---
Called [facility] for status...ETA 07:30
[2020-06-10 07:13] VITALS: BP 122/77; PULSE 65; RESP 14; TEMP 36.7; O2SAT 99
--- NOTE | 2020-06-10 07:51 | PC.NURSE ---
ball has arrived
--- NOTE | 2020-06-10 07:57 | PC.NURSE ---
pt confirmed all belongings in bag. bag given to ems. pt awake, alert and orient x 4 without c/o or distress. mariano meal. d/c via ems without issue.
== END 2020-06-10 07:57 ==
PROVIDERS: Emergency Medicine; Emergency Provider Emergency Medicine
DX: E11.65 Type 2 diabetes mellitus with hyperglycemia (principal); F32.9 Major depressive disorder, single episode, unspecified; R45.851 Suicidal ideations; F10.120 Alcohol abuse with intoxication, uncomplicated; Z20.828 Contact with and (suspected) exposure to other viral communicable diseases; F41.9 Anxiety disorder, unspecified; Z86.718 Personal history of other venous thrombosis and embolism; E78.5 Hyperlipidemia, unspecified; F17.210 Nicotine dependence, cigarettes, uncomplicated; Y90.8 Blood alcohol level of 240 mg/100 ml or more; Z79.4 Long term (current) use of insulin
CPT/HCPCS: 36415; 80048; 80053; 80307; 81001; 82948; 85025; 87635; 96360; 96361; 99285; C9803; J1815; J7030; U0003

== ENCOUNTER 2021-06-30 07:41 | Inpatient (IN) | payer BC, SELFPAY ==
[2021-06-30] VITALS (58 sets, daily range): BP systolic 102–162; BP diastolic 60–117; PULSE 100–126; RESP 14–29; TEMP 36.4; O2SAT 98–100
[2021-06-30 07:55] LABS: Glucose Point of Care > 500 mg/dl (65-105)
[2021-06-30] MEDS: SODIUM CHLORIDE 0.9% IV 1,000 ML 999 ML IV CONT ×3 (08:23→12:28)
[2021-06-30 08:28] LABS: Basophils Absolute Auto 0.1 K/mm3 (0.0-0.1); Basophils Percent Auto 0.5 % (0.2-1.2); Eosinophils Percent Auto 0.1 % (0-4.4); Hematocrit 47.6 % (37.0-47.0); Hemoglobin 15.8 g/dL (12.0-15.0); Immature Granulocyte Absolute 0.17 K/mm3 (0.00-0.031); Lymphocytes Absolute Auto 0.98 K/mm3 (0.9-3.2); Lymphocytes Percent Auto 5.9 % (18.3-44.2); Mean Corpuscular HGB Conc 33.2 g/dl (32-36); Mean Corpuscular Volume 90.5 fl (80-100); Mean Platelet Volume 9.5 fl (7.4-10.4); Monocytes Absolute Auto 0.8 K/mm3 (0.1-0.6); Monocytes Percent Auto 4.9 % (2.6-8.5); Neutrophils Absolute Auto 14.5 K/mm3 (1.3-6.7); Neutrophils Percent Auto 87.6 % (45.5-73.1); Platelet Count Result 327 k/mm3 (150-375); Red Blood Count 5.26 M/mm3 (4.2-5.4); Red Cell Distribution Width 13.2 % (11.5-14.5); White Blood Count 16.5 K/mm3 (4.5-10.0)
[2021-06-30 09:00] LABS: Alanine Aminotransferase 26 U/L (4-35); Alkaline Phosphatase 284 U/L (38-126); Aspartate Amino Transferase 30 U/L (14-36); Bilirubin,Total 0.7 mg/dL (0.2-1.3); Blood Urea Nitrogen 11 mg/dL (7-17); Calcium 8.8 mg/dL (8.4-10.2); Carbon Dioxide < 5 mmol/L (22-30); Chloride 86 mmol/L (98-107); Estimated CRCL calculation 63 ml/min; Estimated Glomerular Filt Rate > 60; Glucose 664 mg/dL (65-110); Magnesium 1.7 mg/dL (1.6-2.3); Potassium 4.4 mmol/L (3.4-5.0); Sodium 123 mmol/L (137-145)
[2021-06-30 09:12] LABS: Add Urine Microscopic? YES; Appearance Urine Cloudy (Clear); Bilirubin Urine Negative (Negative); Blood Urine 3+ (Negative); Color Urine Red (Yellow); Glucose Urine UA 3+ mg/dL (Negative); Ketones Urine 2+ mg/dL (Negative); Leukocyte Esterase Ur Negative LEU/UL (Negative); Mucus Urine Rare /lpf; Nitrate Urine Negative (Negative); Protein Urine 3+ mg/dL (Negative); RBC Urine >75 /hpf (0-2); Specific Grav Ur 1.023 (1.001-1.035); Squamous Epithelial Cell Urine Many /hpf (Few); Urobilinogen Urine Negative mg/dL (<2.0)
--- NOTE | 2021-06-30 09:12 | ED.GENADULT ---
HPI - General Adult General Chief complaint: Unspecified Stated complaint: ELEVATED BLOOD SUGAR Time Seen by Provider: 06/30/21 07:44 Source: patient Mode of arrival: ambulatory Limitations: no limitations History of Present Illness HPI narrative: Patient is 41 years old white female, insulin-dependent diabetic presented to the ED with not feeling well, hyperventilating, feeling like having DKA. Patient did not take her insulin over the last 5 days, denies any excuse. Just does not like to take it. Patient denies any fever, or chills. Patient reports nausea and recurrent vomiting, last COVID vaccination was 2 months ago history of COVID infection January 2021 Related Data Home Medications Medication Instructions Recorded Confirmed aripiprazole 15 mg 06/30/21 atorvastatin 10 mg 06/30/21 bupropion HCl 150 mg PO 06/30/21 citalopram 40 mg 06/30/21 Allergies Allergy/AdvReac Type Severity Reaction Status Date / Time No Known Allergies Allergy Unknown Verified 06/09/20 07:11 Review of Systems Review of Systems: CONSTITUTIONAL: Denies fever, chills, or sweats. EYES: Denies visual changes, redness, or discharge. ENT: Denies rhinorrhea, congestion, sore throat, or otalgia. CARDIOVASCULAR: Denies chest pain, palpitations, or edema. RESPIRATORY: Denies cough or dyspnea. GASTROINTESTINAL: Denies abdominal pain, nausea, vomiting, or diarrhea. GENITOURINARY: Denies dysuria or hematuria. SKIN: Denies rash or itching. MUSCULOSKELETAL: Denies back pain, joint pain, or myalgia. NEUROLOGIC: Denies headache, numbness, or weakness. PSYCHIATRIC: Denies anxiety or depression. [facility] Past Medical History Medical History Anxiety Depression DVT (deep venous thrombosis) Dyslipidemia Hepatitis IDDM (insulin dependent diabetes mellitus) Necrotizing pancreatitis Neuropathy Surgical History Surgical History History of section 2004, 2010, 2016 History of ERCP 06/2019 History of surgery on arm Left - 2019 History of tubal ligation [place] teeth extracted age 23 Family History Family History Mother Diabetes mellitus Family history of coronary artery disease Family history of dementia Social History Social History (Updated 06/30/21 @ 15:01 by Thelma Mensah NP) Social History: The patient has 3 children. She is currently from her and unemployed. She currently smokes half a pack of cigarettes a day. The patient is a recovering alcoholic and has not drink since March of 2021. She does not have a durable power personal injury attorney for healthcare. Code status full code Smoking packs per day: 0.5 Smoking cigarettes per day: 10.0 Years smoked: 18 Smoking pack-years: 9.00 Smoking status: Current every day smoker Tobacco type: cigarettes Second hand tobacco smoke exposure: Yes Alcohol intake: current Drinks per week: 10 Substance use: former Substance use type: marijuana Gender identity (if verbalized by the patient): Female Exam Narrative: General appearance: Well-developed, well-nourished, hyperventilating Skin: Normal color Head: Normocephalic, nontraumatic Eyes: Clear conjunctiva ENT: Dry mouth Neck: Supple, nontender Chest and respiratory: Airway patent, no respiratory distress, no accessory muscle use Heart: Regular rate/rhythm Abdomen: Soft, nontender, no organomegaly, quiet bowel sounds Vascular: Normal peripheral pulses, normal capillary refill. Musculoskeletal: Normal range of motion, nontender back Neurologic: Alert and oriented ?3, PRODUCTION LINE OPERATOR is normal as tested, no gross motor deficit
[2021-06-30 09:22] LABS: Base Excess ABG -25.6 mEq/l (+/-2.0); Carboxyhemoglobin 0.7 % THb (0-2.0); Fractional Inspired Oxygen 21 %; HCO3 ABG 2.9 mEq/l (22.0-26.0); Methemoglobin ABG 0.2 %THb (0-1.5); Oxygen Content ABG 21.2 %vol (16.0-22.0); Oxygen Saturation ABG 97.3 % (95.0-100.0); Oxyhemoglobin 96.4 % THb (90.0-100.0); PO2 ABG 131.7 mmHg (80.0-100.0); PO2 FiO2 Ratio Arterial Blood 6.27 %; Reduced Hemoglobin 2.7 %THb (0-5.0); Total Hemoglobin 15.5 g/dL (12.0-18.0)
[2021-06-30] MEDS: INSULIN HUMAN REGULAR (*BKC) 100 UNITS/ML 7 UNITS IV PUSH (09:24)
[2021-06-30 09:27] LABS: Device ROOM AIR; Modified Allen's Test Pass; PCO2 ABG 10.9 mmHg (35.0-45.0); Site Drawn RIGHT RADIAL; pH ABG 7.039 (7.350-7.450)
[2021-06-30] MEDS: INSULIN HUMAN REGULAR (*BKC) 100 UNITS in SODIUM CHLORIDE 0.9% IV 99 ML 12.1 UNITS IV CONT (09:46)
--- NOTE | 2021-06-30 10:36 | PC.NURSE ---
IV noted to be infiltrated. pt able to move arm, swelling noted. ERP made aware.
[2021-06-30 10:56] LABS: Glucose Point of Care > 500 mg/dl (65-105)
--- NOTE | 2021-06-30 11:25 | PC.NURSE ---
Vascular access in room attempting to get an IV
[2021-06-30 12:03] LABS: Glucose Point of Care > 500 mg/dl (65-105)
--- NOTE | 2021-06-30 12:57 | PM.IMHP ---
H&P: HPI History of Present Illness Date/Time: 06/30/21 12:57 this is a 41-year-old insulin-dependent diabetic who developed diabetes after having a diagnosis of necrotizing pancreatitis. The patient stated that she has no heat in her house except for a electric heater. She stated over the last few days she has not taken her insulin because she has been concerned about staying warm underneath of covers at home and did not feel very well. The patient is having some nausea and vomiting. She states that it may have been about 5 days and she took her insulin last. The patient's hygiene is poor. She goes on to tell me that she recently lost her job and that her financial situation is poor at this time. The patient had been hyperventilating when she came to the emergency room. Patient stated this felt similar to the last time she had DKA. She has no fever chills. No diarrhea. The patient had her last COVID vaccine approximately 2 months ago. She had history of having COVID infection January of 2021. Her white count was noted to be 16.5. H&H is 15.8 and 47.6. ABGs pH 7.039 CO2 10.9. Bicarb 2.9. Her blood sugar was greater than 500 when she came to the emergency. Patient's beta hydroxybutyrate/acetate was 12.3. Patient had 2+ ketones in her urine 3+ glucose. Patient was found to be in DKA in the DKA protocol was established. Patient is being admitted to inpatient status on the date of service of 06/30/2019. Chief Complaint: Abdominal discomfort Review of Systems Review of Systems: All systems reviewed & are unremarkable except as noted in HPI and below Constitutional: Constitutional: Reports as per HPI and Reports no additional constitutional complaints Eyes: Eyes: Reports as per HPI and Reports no additional eye complaints ENT: Reports system reviewed and no additional complaints, except as documented and Reports Normal hearing present Cardiovascular: Cardiovascular: Reports no additional cardiovascular complaints Respiratory: Respiratory: Reports no additional respiratory complaints and Reports no additional respiratory complaints Gastrointestinal: Gastrointestinal: Reports as per HPI and Reports no additional gastrointestinal complaints Musculoskeletal: Musculoskeletal: Reports no additional musculoskeletal complaints Integumentary/Breasts: Skin/Breast: Reports system reviewed and no additional complaints, except as docu and Reports as per HPI Neurologic: Reports system reviewed and no additional complaints, except as documented, Reports as per HPI and Reports Normal hearing present Psychiatric: Psychiatric: Reports no additional psychiatric complaints and Reports as per HPI Endocrine: Endocrine: Reports no additional endocrine complaints Hematologic/Lymphatic: Hematologic/Lymphatic: Reports no additional hematologic/lymphatic complaints Allergic/Immunologic: Allergic/Immunologic: Reports no additional allergic/immunologic complaints PMFSH Past Medical History Medical History Anxiety Depression DVT (deep venous thrombosis) Dyslipidemia Hepatitis IDDM (insulin dependent diabetes mellitus) Necrotizing pancreatitis Neuropathy Surgical History Surgical History History of section 2003, 2010, 2015 History of ERCP 06/2019 History of surgery on arm Left - 2019 History of tubal ligation [place] teeth extracted age 23 Family History Family History Mother Diabetes mellitus Family history of coronary artery disease Family history of dementia Social History Social History (Updated 06/30/21 @ 15:01 by Thelma Mensah NP) Social History: The patient has 3 children. She is currently from her and unemployed. She currently smokes half a pack of cigarettes a day. The patient is a recovering alcoholic and has not drink since Octobe
[2021-06-30 13:01] LABS: Glucose Point of Care 366 mg/dl (65-105)
[2021-06-30] MEDS: NICOTINE (*PBKC) 14 MG PATCH 1 PATCH TRANSDERM (13:27)
[2021-06-30] MEDS: PREGABALIN (*CRX) 75 MG CAPSULE PO ×2 (13:28→18:58)
[2021-06-30 14:09] LABS: Glucose Point of Care 211 mg/dl (65-105)
[2021-06-30 14:57] LABS: Glucose Point of Care 178 mg/dl (65-105)
[2021-06-30 15:16] LABS: Anion Gap 25 mmol/L (8-16); Blood Urea Nitrogen 10 mg/dL (7-17); Calcium 7.9 mg/dL (8.4-10.2); Carbon Dioxide 6 mmol/L (22-30); Chloride 98 mmol/L (98-107); Estimated CRCL calculation 101 ml/min; Estimated Glomerular Filt Rate > 60; Glucose 178 mg/dL (65-110); Potassium 3.3 mmol/L (3.4-5.0); Sodium 129 mmol/L (137-145)
[2021-06-30 16:01] LABS: Magnesium 1.3 mg/dL (1.6-2.3); Phosphorus 1.5 mg/dL (2.5-4.5)
[2021-06-30 16:04] LABS: Glucose Point of Care 142 mg/dl (65-105)
[2021-06-30] MEDS: KCL 20 MEQ/D5/0.45% SOD CHL 1,000 ML 150 ML IV CONT ×2 (16:07→23:07)
[2021-06-30 16:17] LABS: Hemoglobin A1C > 14.0 % (<5.7)
[2021-06-30 17:21] LABS: Glucose Point of Care 148 mg/dl (65-105)
[2021-06-30 18:08] LABS: Glucose Point of Care 190 mg/dl (65-105)
[2021-06-30 18:50] LABS: Glucose Point of Care 174 mg/dl (65-105)
--- NOTE | 2021-06-30 19:17 | PC.NURSE ---
Report received from SINA Hernandez. Assumed care of patient at this time.
[2021-06-30 19:37] LABS: Anion Gap 17 mmol/L (8-16); Blood Urea Nitrogen 9 mg/dL (7-17); Calcium 8.2 mg/dL (8.4-10.2); Carbon Dioxide 8 mmol/L (22-30); Chloride 101 mmol/L (98-107); Estimated CRCL calculation 119 ml/min; Estimated Glomerular Filt Rate > 60; Glucose 169 mg/dL (65-110); Sodium 126 mmol/L (137-145)
[2021-06-30 19:58] LABS: Glucose Point of Care 202 mg/dl (65-105)
[2021-06-30 20:56] LABS: Glucose Point of Care 182 mg/dl (65-105)
[2021-06-30 21:59] LABS: Glucose Point of Care 161 mg/dl (65-105)
[2021-06-30 23:04] LABS: Glucose Point of Care 150 mg/dl (65-105)
--- NOTE | 2021-06-30 23:18 | PC.NURSE ---
Patient second consecutive BG below 180, nutrition intern aware, orders received for repeat lab.
--- NOTE | 2021-06-30 23:21 | PC.NURSE ---
Phlebotomy here to draw patient.
[2021-07-01] VITALS (55 sets, daily range): BP systolic 118–137; BP diastolic 68–87; PULSE 92–127; RESP 11–32; TEMP 36.4; O2SAT 98–100
[2021-07-01 00:05] LABS: Glucose Point of Care 125 mg/dl (65-105)
[2021-07-01 00:08] LABS: Anion Gap 9 mmol/L (8-16); Blood Urea Nitrogen 9 mg/dL (7-17); Calcium 8.7 mg/dL (8.4-10.2); Carbon Dioxide 15 mmol/L (22-30); Chloride 103 mmol/L (98-107); Estimated CRCL calculation 119 ml/min; Estimated Glomerular Filt Rate > 60; Glucose 123 mg/dL (65-110); Potassium 4.2 mmol/L (3.4-5.0); Sodium 127 mmol/L (137-145)
--- NOTE | 2021-07-01 00:20 | PC.NURSE ---
Patients gap is 9, last 3 BG are less than 180, hospitalist notified of results. Awaiting orders.
--- NOTE | 2021-07-01 00:49 | PC.NURSE ---
Spoke with hospitalist, new med orders received and patient to still stay on insulin drip.
[2021-07-01 01:00] LABS: Glucose Point of Care 120 mg/dl (65-105)
[2021-07-01] MEDS: MAGNESIUM SULF 4 GM/WATER100ML 4 GM/100 ML BAG IVPB (01:09)
[2021-07-01 02:13] LABS: Glucose Point of Care 82 mg/dl (65-105)
[2021-07-01 03:19] LABS: Glucose Point of Care 137 mg/dl (65-105)
[2021-07-01 04:28] LABS: Glucose Point of Care 238 mg/dl (65-105)
[2021-07-01] MEDS: POTASSIUM PHOS/SODIUM PHOS 250 MG TABLET PO (04:47)
[2021-07-01] MEDS: INSULIN HUMAN REGULAR (*BKC) 100 UNITS in SODIUM CHLORIDE 0.9% IV 99 ML 8.9 UNITS IV CONT (04:49)
[2021-07-01 05:34] LABS: Glucose Point of Care 258 mg/dl (65-105)
[2021-07-01] MEDS: KCL 20 MEQ/D5/0.45% SOD CHL 1,000 ML 150 ML IV CONT (05:41)
[2021-07-01 06:34] LABS: Glucose Point of Care 228 mg/dl (65-105)
[2021-07-01 07:23] LABS: Glucose Point of Care 187 mg/dl (65-105)
[2021-07-01 08:33] LABS: Glucose Point of Care 108 mg/dl (65-105)
[2021-07-01 08:56] LABS: Anion Gap 9 mmol/L (8-16); Blood Urea Nitrogen 7 mg/dL (7-17); Calcium 8.1 mg/dL (8.4-10.2); Carbon Dioxide 19 mmol/L (22-30); Chloride 102 mmol/L (98-107); Estimated CRCL calculation 145 ml/min; Estimated Glomerular Filt Rate > 60; Glucose 108 mg/dL (65-110); Potassium 2.9 mmol/L (3.4-5.0); Sodium 130 mmol/L (137-145)
[2021-07-01 09:36] LABS: Glucose Point of Care 92 mg/dl (65-105)
--- NOTE | 2021-07-01 09:52 | PC.NURSE ---
Spoke to Dr. Melchor regarding patient's blood sugar and anion gap. Per Dr. Melchor, stop insulin drip at this time and start patient on home medication regimen.
--- NOTE | 2021-07-01 10:19 | PM.IMPN ---
Progress Note: A&P Assessment and Plan (1) IDDM (insulin dependent diabetes mellitus): Code(s): E11.9 - Type 2 diabetes mellitus without complications; Z79.4 - correction (current) use of insulin Status: Chronic Assessment and Plan: Patient was appropriately started on the DKA protocol. She has an insulin drip infusing at this time; after glucose dropped to 110, she was started on dextrose infusion. Repeat BMP. When her anion gap closes we can restart her back on her dose of insulin and give her an additional time dose of Lantus. The patient is currently being held the emergency instead ICU, due to logistic issues. prosthodontist/educator would greatly be appreciated. The patient is in a poor financial situation. sample coordinator was consulted. The patient also has a component of depression which may be playing a part as to why the patient is not taking insulin. (2) Dyslipidemia: Code(s): E78.5 - Hyperlipidemia, unspecified Status: Acute Assessment and Plan: Continue with atorvastatin. (3) Anxiety: Code(s): F41.9 - Anxiety disorder, unspecified Status: Acute Assessment and Plan: Continue with bupropion and Celexa (4) Depression: Qualifiers: Depression Type: unspecified Qualified Code(s): F32.9 - Major depressive disorder, single episode, unspecified Code(s): F32.9 - Major depressive disorder, single episode, unspecified Status: Acute Assessment and Plan: Continue bupropion and Celexa. She is also taking Abilify. (5) Necrotizing pancreatitis: Code(s): K85.91 - Acute pancreatitis with uninfected necrosis, unspecified Status: Acute Assessment and Plan: Patient is a recovering alcoholic. (6) Neuropathy: Code(s): G62.9 - Polyneuropathy, unspecified Status: Acute Assessment and Plan: Continue with home medication. The patient is on Lyrica. (7) Nicotine dependence: Code(s): F17.200 - Nicotine dependence, unspecified, uncomplicated Status: Acute Assessment and Plan: Patient was counseled for approximately 5 minutes concerning smoking cessation. The patient is agreeable to a nicotine patch. Subjective Date/time seen: 07/01/21 10:19 Narrative: this is a 41-year-old insulin-dependent diabetic who developed diabetes after having a diagnosis of necrotizing pancreatitis. The patient stated that she has no heat in her house except for a electric heater. She stated over the last few days she has not taken her insulin because she has been concerned about staying warm underneath of covers at home and did not feel very well. The patient is having some nausea and vomiting. She states that it may have been about 5 days and she took her insulin last. The patient's hygiene is poor. She goes on to tell me that she recently lost her job and that her financial situation is poor at this time. The patient had been hyperventilating when she came to the emergency room. Patient stated this felt similar to the last time she had DKA. She has no fever chills. No diarrhea. The patient had her last COVID vaccine approximately 2 months ago. She had history of having COVID infection January of 2021. Her white count was noted to be 16.5. H&H is 15.8 and 47.6. ABGs pH 7.039 CO2 10.9. Bicarb 2.9. Her blood sugar was greater than 500 when she came to the emergency. Patient's beta hydroxybutyrate/acetate was 12.3. Patient had 2+ ketones in her urine 3+ glucose. Patient was found to be in DKA in the DKA protocol was established. Patient was admitted to inpatient status on the date of service of 06/30/2019. S: Patient was examined while lying on the gurney. She is feeling a lot better. She reports epigastric pain, related to her necrotizing pancreatitis. Patient has been noncompliant to insulin regimen after it was current due to financial issues. Care coordination consulted to address social issues. Review of Systems R
[2021-07-01] MEDS: NICOTINE (*PBKC) 14 MG PATCH 1 PATCH TRANSDERM (10:30)
[2021-07-01] MEDS: ENOXAPARIN 40 MG/0.4 ML SYRINGE SUB-Q (10:30)
[2021-07-01] MEDS: PREGABALIN (*CRX) 75 MG CAPSULE PO ×3 (10:31→16:49)
[2021-07-01 10:49] LABS: Glucose Point of Care 146 mg/dl (65-105)
[2021-07-01] MEDS: INSULIN GLARGINE (*BKC) 100 UNITS/ML 11 UNITS SUB-Q (11:15)
[2021-07-01] MEDS: ATORVASTATIN 10 MG TABLET BY MOUTH (11:42)
[2021-07-01] MEDS: POTASSIUM CHLORIDE 20 MEQ PACKET (FOR LIQUID) 40 MEQ PO ×2 (11:43→16:48)
[2021-07-01] MEDS: buPROPion HCL XL (24 HR) 150 MG TABCR PO (11:43)
[2021-07-01] MEDS: ARIPiprazole 5 MG TABLET BY MOUTH (11:44)
[2021-07-01] MEDS: ARIPiprazole 10 MG TABLET BY MOUTH (11:44)
[2021-07-01] MEDS: CITALOPRAM HYDROBROMIDE 20 MG TABLET 40 MG BY MOUTH (11:45)
--- NOTE | 2021-07-01 12:04 | PC.NURSE ---
spoke with dr Melchor on phone. ok to down grade to med/surg
[2021-07-01 12:06] LABS: Glucose Point of Care 238 mg/dl (65-105)
[2021-07-01 13:14] LABS: Anion Gap 17 mmol/L (8-16); Blood Urea Nitrogen 4 mg/dL (7-17); Calcium 7.9 mg/dL (8.4-10.2); Carbon Dioxide 13 mmol/L (22-30); Chloride 99 mmol/L (98-107); Estimated CRCL calculation 119 ml/min; Estimated Glomerular Filt Rate > 60; Glucose 254 mg/dL (65-110); Potassium 3.2 mmol/L (3.4-5.0); Sodium 129 mmol/L (137-145)
[2021-07-01 14:40] LABS: Glucose Point of Care 399 mg/dl (65-105)
[2021-07-01] MEDS: INSULIN ASPART (*BKC) 100 UNITS/ML SUB-Q ×2 (14:41→16:49)
--- NOTE | 2021-07-01 15:59 | ADMGEN ---
This patient, Marisa Lott, was admitted to Medical Room 261-01. Patient/family oriented to hospital policies and general routines including ID bracelet, bed and alarms, visiting hours, pain management, procedures, bathroom and other care routines, personal items, smoking policy, room service/diet, and visiting hours. Information on how to activate the Rapid Response Team has been discussed. Patient/Family are encouraged to report perceived risks to care and to ask questions if they do not understand what they are told or what they should do.
[2021-07-01 16:12] LABS: Glucose Point of Care 252 mg/dl (65-105)
[2021-07-01 20:06] LABS: Anion Gap 4 mmol/L (8-16); Blood Urea Nitrogen 4 mg/dL (7-17); Calcium 8.2 mg/dL (8.4-10.2); Carbon Dioxide 24 mmol/L (22-30); Chloride 103 mmol/L (98-107); Estimated CRCL calculation 145 ml/min; Estimated Glomerular Filt Rate > 60; Glucose 209 mg/dL (65-110); Potassium 3.3 mmol/L (3.4-5.0); Sodium 131 mmol/L (137-145)
[2021-07-01] MEDS: INSULIN GLARGINE (*BKC) 100 UNITS/ML 21 UNITS SUB-Q (20:23)
[2021-07-01 21:12] LABS: Glucose Point of Care 204 mg/dl (65-105)
[2021-07-02 03:24] VITALS: BP 129/74; PULSE 88; RESP 18; TEMP 35.9; O2SAT 99
[2021-07-02 05:28] LABS: Hematocrit 32.3 % (37.0-47.0); Hemoglobin 11.4 g/dL (12.0-15.0); Mean Corpuscular HGB Conc 35.3 g/dl (32-36); Mean Corpuscular Hemoglobin 29.4 pg (26-34); Mean Corpuscular Volume 83.2 fl (80-100); Mean Platelet Volume 9.2 fl (7.4-10.4); Platelet Count Result 87 k/mm3 (150-375); Red Blood Count 3.88 M/mm3 (4.2-5.4); Red Cell Distribution Width 13.2 % (11.5-14.5); White Blood Count 4.7 K/mm3 (4.5-10.0)
[2021-07-02 06:34] LABS: Anion Gap 8 mmol/L (8-16); Blood Urea Nitrogen 4 mg/dL (7-17); Calcium 8.2 mg/dL (8.4-10.2); Carbon Dioxide 26 mmol/L (22-30); Chloride 101 mmol/L (98-107); Estimated CRCL calculation 185 ml/min; Estimated Glomerular Filt Rate > 60; Glucose 149 mg/dL (65-110); Potassium 2.7 mmol/L (3.4-5.0); Sodium 135 mmol/L (137-145)
[2021-07-02 07:47] LABS: Glucose Point of Care 156 mg/dl (65-105)
[2021-07-02] MEDS: POTASSIUM CHLORIDE INJ 40 MEQ in SODIUM CHLORIDE 0.9% IV 500 ML 130 MEQ IVPB (07:49)
[2021-07-02] MEDS: ATORVASTATIN 10 MG TABLET BY MOUTH (08:01)
[2021-07-02] MEDS: NICOTINE (*PBKC) 14 MG PATCH 1 PATCH TRANSDERM (08:01)
[2021-07-02] MEDS: CITALOPRAM HYDROBROMIDE 20 MG TABLET 40 MG BY MOUTH (08:01)
[2021-07-02] MEDS: buPROPion HCL XL (24 HR) 150 MG TABCR PO (08:02)
[2021-07-02] MEDS: ARIPiprazole 5 MG TABLET BY MOUTH (08:02)
[2021-07-02] MEDS: ARIPiprazole 10 MG TABLET BY MOUTH (08:02)
[2021-07-02] MEDS: PREGABALIN (*CRX) 75 MG CAPSULE PO ×3 (08:05→16:54)
[2021-07-02] MEDS: INSULIN GLARGINE (*BKC) 100 UNITS/ML 11 UNITS SUB-Q (08:05)
--- NOTE | 2021-07-02 08:52 | PM.IMPN ---
Progress Note: A&P Assessment and Plan (1) IDDM (insulin dependent diabetes mellitus): Code(s): E11.9 - Type 2 diabetes mellitus without complications; Z79.4 - wallpaper remover steam (current) use of insulin Status: Chronic Assessment and Plan: Patient was appropriately started on the DKA protocol. After her anion gap closed, she was transition from insulin drip to long acting insulin with Lantus and sliding scale; after glucose dropped to 110, she was started on dextrose infusion. On a repeat BMP, she was found to have hypokalemia and potassium was supplemented. Continue close monitoring of Accu-Cheks today. Again potassium dropped to 2.7 today and is being supplemented. Repeat BMP tonight. Start regular diabetic diet today. (2) Dyslipidemia: Code(s): E78.5 - Hyperlipidemia, unspecified Status: Acute Assessment and Plan: Continue with atorvastatin. (3) Anxiety: Code(s): F41.9 - Anxiety disorder, unspecified Status: Acute Assessment and Plan: Continue with bupropion and Celexa (4) Depression: Qualifiers: Depression Type: unspecified Qualified Code(s): F32.9 - Major depressive disorder, single episode, unspecified Code(s): F32.9 - Major depressive disorder, single episode, unspecified Status: Acute Assessment and Plan: Continue bupropion and Celexa. She is also taking Abilify. Follow-up with psychiatrist as an outpatient. Patient needs ongoing support due to severe financial strain. (5) Necrotizing pancreatitis: Code(s): K85.91 - Acute pancreatitis with uninfected necrosis, unspecified Status: Acute Assessment and Plan: Patient is a recovering alcoholic. (6) Neuropathy: Code(s): G62.9 - Polyneuropathy, unspecified Status: Acute Assessment and Plan: Continue with home medication. The patient is on Lyrica. (7) Nicotine dependence: Code(s): F17.200 - Nicotine dependence, unspecified, uncomplicated Status: Acute Assessment and Plan: Patient was counseled for approximately 5 minutes concerning smoking cessation. Continue nicotine patch. Subjective Date/time seen: 07/02/21 08:52 S: Patient is seen and examined at the bedside. She is feeling a lot better. Epigastric pain has resolved. programming coordinator is helping locating community resources. Review of Systems Review of Systems: All systems reviewed & are unremarkable except as noted in HPI and below Constitutional: Constitutional: Reports as per HPI and Reports no additional constitutional complaints Eyes: Eyes: Reports as per HPI and Reports no additional eye complaints ENT: Reports system reviewed and no additional complaints, except as documented and Reports Normal hearing present Cardiovascular: Cardiovascular: Reports as per HPI and Reports no additional cardiovascular complaints Respiratory: Respiratory: Reports as per HPI, Reports no additional respiratory complaints and Reports no additional respiratory complaints Gastrointestinal: Gastrointestinal: Reports as per HPI, Reports no additional gastrointestinal complaints, Denies abdominal pain, Denies dyspepsia, Denies heartburn, Denies nausea and Denies vomiting Genitourinary: Genitourinary: Reports no additional female genitourinary complaints and Reports as per HPI Musculoskeletal: Musculoskeletal: Reports no additional musculoskeletal complaints Integumentary/Breasts: Skin/Breast: Reports system reviewed and no additional complaints, except as docu and Reports as per HPI Neurologic: Reports system reviewed and no additional complaints, except as documented, Reports as per HPI and Reports Normal hearing present Psychiatric: Psychiatric: Reports no additional psychiatric complaints and Reports as per HPI Endocrine: Endocrine: Reports no additional endocrine complaints Hematologic/Lymphatic: Hematologic/Lymphatic: Reports no additional hematologic/lymphatic complaints Allergic
[2021-07-02] MEDS: POTASSIUM CHLORIDE 20 MEQ PACKET (FOR LIQUID) 40 MEQ PO ×2 (09:22→16:55)
--- NOTE | 2021-07-02 11:30 | PCDIET ---
Consulted for diabetes management education. See nutritional teaching for further information.
[2021-07-02 11:49] LABS: Glucose Point of Care 367 mg/dl (65-105)
[2021-07-02] MEDS: INSULIN ASPART (*BKC) 100 UNITS/ML SUB-Q ×2 (12:07→16:57)
[2021-07-02 14:00] VITALS: BP 118/70; PULSE 87; RESP 18; TEMP 37.1; O2SAT 99
[2021-07-02 16:56] LABS: Glucose Point of Care 234 mg/dl (65-105)
[2021-07-02] MEDS: INSULIN GLARGINE (*BKC) 100 UNITS/ML 45 UNITS SUB-Q (16:59)
[2021-07-02 17:34] LABS: Anion Gap 7 mmol/L (8-16); Blood Urea Nitrogen 5 mg/dL (7-17); Calcium 8.6 mg/dL (8.4-10.2); Carbon Dioxide 28 mmol/L (22-30); Chloride 98 mmol/L (98-107); Estimated CRCL calculation 145 ml/min; Estimated Glomerular Filt Rate > 60; Glucose 273 mg/dL (65-110); Potassium 3.5 mmol/L (3.4-5.0); Sodium 133 mmol/L (137-145)
[2021-07-02 22:00] VITALS: BP 119/68; PULSE 81; RESP 20; TEMP 36.4; O2SAT 99
[2021-07-02 23:39] LABS: Glucose Point of Care 260 mg/dl (65-105)
[2021-07-03 05:00] VITALS: BMI 26.3
[2021-07-03 06:00] VITALS: BP 116/71; PULSE 77; RESP 21; TEMP 36.2; O2SAT 100; BMI 26.3
[2021-07-03 06:31] LABS: Hematocrit 32.7 % (37.0-47.0); Hemoglobin 11.3 g/dL (12.0-15.0); Mean Corpuscular HGB Conc 34.6 g/dl (32-36); Mean Corpuscular Hemoglobin 29.3 pg (26-34); Mean Corpuscular Volume 84.7 fl (80-100); Mean Platelet Volume 9.7 fl (7.4-10.4); Platelet Count Result 101 k/mm3 (150-375); Red Blood Count 3.86 M/mm3 (4.2-5.4); Red Cell Distribution Width 13.5 % (11.5-14.5); White Blood Count 4.5 K/mm3 (4.5-10.0)
[2021-07-03 06:52] LABS: Anion Gap 4 mmol/L (8-16); Blood Urea Nitrogen 7 mg/dL (7-17); Calcium 8.6 mg/dL (8.4-10.2); Carbon Dioxide 28 mmol/L (22-30); Chloride 104 mmol/L (98-107); Estimated CRCL calculation 162 ml/min; Estimated Glomerular Filt Rate > 60; Glucose 156 mg/dL (65-110); Potassium 3.2 mmol/L (3.4-5.0); Sodium 136 mmol/L (137-145)
[2021-07-03 07:43] LABS: Glucose Point of Care 149 mg/dl (65-105)
--- NOTE | 2021-07-03 08:07 | PC.NURSE ---
Outpatient referral for initial DSMT and MNT started. [facility]
[2021-07-03] MEDS: ATORVASTATIN 10 MG TABLET BY MOUTH (09:25)
[2021-07-03] MEDS: NICOTINE (*PBKC) 14 MG PATCH 1 PATCH TRANSDERM (09:25)
[2021-07-03] MEDS: ARIPiprazole 10 MG TABLET BY MOUTH (09:25)
[2021-07-03] MEDS: ENOXAPARIN 40 MG/0.4 ML SYRINGE SUB-Q (09:25)
[2021-07-03] MEDS: buPROPion HCL XL (24 HR) 150 MG TABCR PO (09:26)
[2021-07-03] MEDS: CITALOPRAM HYDROBROMIDE 20 MG TABLET 40 MG BY MOUTH (09:27)
[2021-07-03] MEDS: INSULIN GLARGINE (*BKC) 100 UNITS/ML 11 UNITS SUB-Q (09:32)
[2021-07-03] MEDS: PREGABALIN (*CRX) 75 MG CAPSULE PO ×3 (09:40→16:43)
--- NOTE | 2021-07-03 11:03 | PM.DS ---
DS: Admitting Diagnosis Discharge Date 07/03/2021 Admitting Diagnosis DKA DS: Discharge Diagnosis Discharge Diagnosis (1) IDDM (insulin dependent diabetes mellitus): Code(s): E11.9 - Type 2 diabetes mellitus without complications; Z79.4 - meterman (current) use of insulin Status: Chronic Assessment and Plan: Patient was appropriately started on the DKA protocol. After her anion gap closed, she was transition from insulin drip to long acting insulin with Lantus and sliding scale; after glucose dropped to 110, she was started on dextrose infusion. On a repeat BMP, she was found to have hypokalemia and potassium was supplemented. Continue close monitoring of Accu-Cheks today. Again potassium dropped to 2.7 today and is being supplemented. Repeat BMP tonight. Start regular diabetic diet today. (2) Dyslipidemia: Code(s): E78.5 - Hyperlipidemia, unspecified Status: Acute Assessment and Plan: Continue with atorvastatin. (3) Anxiety: Code(s): F41.9 - Anxiety disorder, unspecified Status: Acute Assessment and Plan: Continue with bupropion and Celexa (4) Depression: Qualifiers: Depression Type: unspecified Qualified Code(s): F32.9 - Major depressive disorder, single episode, unspecified Code(s): F32.9 - Major depressive disorder, single episode, unspecified Status: Acute Assessment and Plan: Continue bupropion and Celexa. She is also taking Abilify. Follow-up with psychiatrist as an outpatient. Patient needs ongoing support due to severe financial strain. (5) Necrotizing pancreatitis: Code(s): K85.91 - Acute pancreatitis with uninfected necrosis, unspecified Status: Acute Assessment and Plan: Patient is a recovering alcoholic. (6) Neuropathy: Code(s): G62.9 - Polyneuropathy, unspecified Status: Acute Assessment and Plan: Continue with home medication. The patient is on Lyrica. (7) Nicotine dependence: Code(s): F17.200 - Nicotine dependence, unspecified, uncomplicated Status: Acute Assessment and Plan: Patient was counseled for approximately 5 minutes concerning smoking cessation. Continue nicotine patch. DS: Summary Hospital Course Reason for hospitalization: Abdominal pain. Hospital Course: Please refer to admission H& P. Briefly, this is a 41-year-old insulin-dependent diabetic who developed diabetes after having a diagnosis of necrotizing pancreatitis. The patient stated that she has no heat in her house except for a electric heater. She stated over the last few days she has not taken her insulin because she has been concerned about staying warm underneath of covers at home and did not feel very well. The patient is having some nausea and vomiting. She states that it may have been about 5 days and she took her insulin last. The patient's hygiene is poor. She goes on to tell me that she recently lost her job and that her financial situation is poor at this time. The patient had been hyperventilating when she came to the emergency room. Patient stated this felt similar to the last time she had DKA. She has no fever chills. No diarrhea. The patient had her last COVID vaccine approximately 2 months ago. She had history of having COVID infection January of 2021. Her white count was noted to be 16.5. H&H is 15.8 and 47.6. ABGs pH 7.039 CO2 10.9. Bicarb 2.9. Her blood sugar was greater than 500 when she came to the emergency. Patient's beta hydroxybutyrate/acetate was 12.3. Patient had 2+ ketones in her urine 3+ glucose. Patient was found to be in DKA in the DKA protocol was established. patient improved from Yuriy with IV fluids and IV insulin. She was transition to home regimen. Her non noncompliance is due to social issue.Patient will be discharged home and return to stay with her family will provide her with the social support that she needs. Time spent discussing jon
[2021-07-03 11:23] LABS: Glucose Point of Care 386 mg/dl (65-105)
[2021-07-03] MEDS: INSULIN ASPART (*BKC) 100 UNITS/ML SUB-Q ×2 (11:33→17:28)
[2021-07-03] MEDS: POTASSIUM CHLORIDE 20 MEQ TABLET.ER 40 MEQ PO ×2 (13:08→16:44)
[2021-07-03 14:00] VITALS: BP 125/72; PULSE 80; RESP 16; TEMP 36.8; O2SAT 99
[2021-07-03 16:51] LABS: Glucose Point of Care 314 mg/dl (65-105)
--- NOTE | 2021-07-04 11:09 | PCCDE ---
Consult received 06/30; pt was discharged 07/03 before able to be seen. Attempted to call pt today but unable to leave message as mailbox is full .
== END 2021-07-03 18:09 | disposition home or self-care (01) | DRG 420 ==
LOC: ANHED 09:24 → ANHICU 14:56 → ANH2MED 07-01 16:13 → ANHICU 07-04 15:16
PROVIDERS: Nurse Practitioner; Admitting Provider Internal Medicine; Emergency Provider Emergency Medicine; Visit Provider Internal Medicine
DX: E11.10 Type 2 diabetes mellitus with ketoacidosis without coma (principal); E78.5 Hyperlipidemia, unspecified; K85.91 Acute pancreatitis with uninfected necrosis, unspecified; E11.42 Type 2 diabetes mellitus with diabetic polyneuropathy; F17.210 Nicotine dependence, cigarettes, uncomplicated; E87.6 Hypokalemia; F41.9 Anxiety disorder, unspecified; F32.9 Major depressive disorder, single episode, unspecified; Z79.4 Long term (current) use of insulin; Z86.16 Personal history of COVID-19; Z91.14 Patient's other noncompliance with medication regimen; Z86.718 Personal history of other venous thrombosis and embolism
CPT/HCPCS: 36415; 36600; 80048; 80053; 80366; 81001; 81025; 82010; 82375; 82805; 82948; 83036; 83050; 83735; 84100; 85025; 85027; 87077; 87086; 87088; 96361; 96374; 99291; A9270; J0131; J1650; J1815; J3475; J3480; J7030; J7040

== ENCOUNTER 2021-11-24 08:42 | Inpatient (IN) | payer BC, SELFPAY ==
[2021-11-24] VITALS (20 sets, daily range): BP systolic 90–123; BP diastolic 47–95; PULSE 75–128; RESP 11–26; TEMP 36.4–37.6; O2SAT 94–100; BMI 24.9
--- NOTE | ~2021-11-24 | CT_ITS ---
EXAMINATION: CT brain wo con DATE: 11/24/2021 09:38 INDICATION: Altered mental status. TECHNIQUE: Computed tomography (CT) of the head was performed without intravenous contrast. The mA wa s adjusted according to patient size. Iterative reconstruction technique was employed. The dose-lengt h product was 605.33 mGy-cm. COMPARISON: Head CT 06/02/2020 FINDINGS: There is no intracranial hemorrhage, acute infarction, or abnormal intracranial mass lesion . The ventricles are normal in size. There is mild mucosal thickening in the paranasal sinuses. The o rbits are normal. There is a small right mastoid effusion. IMPRESSION: 1. Normal brain. Reviewed, dictated and finalized at location B. IMPRESSION: 1. Normal brain.
--- NOTE | ~2021-11-24 | XR_ITS ---
XR chest 1V portable DATE: 11/24/2021 12:21 INDICATION: Altered mental status TECHNIQUE: Portable supine AP chest on 11/24/2021 at 1220 hours COMPARISON: 06/02/2020 portable AP chest FINDINGS: Normal heart size. No hilar or mediastinal enlargement. The lungs are clear of infiltrate o r consolidation. No pleural effusion or pulmonary vascular congestion or pneumothorax. Plate and screws of proximal left humerus. IMPRESSION: No active cardiopulmonary disease or significant change since 06/02/2020 Reviewed, dictated and finalized at location A.
--- NOTE | ~2021-11-24 | CT_ITS ---
EXAMINATION: CTA abdomen pelvis DATE: 11/24/2021 12:57 INDICATION: Lactic acidosis. Bowel ischemia. TECHNIQUE: Computed tomography (CT) of the abdomen and pelvis was performed without and with 100 mL O mnipaque 350 intravenous contrast. Automated exposure control and iterative reconstruction technique were employed. The dose-length product was 1188.31 mGy-cm. COMPARISON: CT abdomen and pelvis 01/16/2020 FINDINGS: The visualized portions of the lung bases are clear without pneumonia or pleural effusion. The heart size is normal. No pericardial effusion. The liver, spleen, gallbladder, and adrenal glands are normal. The pancreas demonstrates parenchymal calcifications and main duct dilatation, consisten t with chronic pancreatitis. The kidneys are normal. There is wall thickening of the ascending and tr ansverse colon and the rectosigmoid, consistent with colitis. The appendix is normal. There is modera te stenosis of celiac axis and superior mesenteric artery best seen on the sagittal images. There is no significant stenosis of inferior mesenteric artery. There are no pathologically enlarged lymph nod es. There is no free intraperitoneal fluid. There is mild thoracolumbar spondylosis. IMPRESSION: 1. Colitis. 2. 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 No significant stenosis of inferi or mesenteric artery. 3. Chronic pancreatitis. Reviewed, dictated and finalized at location B. IMPRESSION: 1. Colitis. 2. 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 No signific ant stenosis of inferior mesenteric artery. 3. Chronic pancreatitis.
--- NOTE | 2021-11-24 08:49 | ECG_ITS ---
Measurements Intervals [place] Rate: 89 P: 61 AK: 171 QRS: 1 QRSD: 101 T: 58 QT: 411 QTc: 500 Interpretive Statements SINUS RHYTHM NORMAL ECG COMPARED TO ECG 06/02/2020 22:32:26 NO SIGNIFICANT CHANGES Electronically Signed On 11-24-2021 15:32:11 CDT by Regan León M.D.
[2021-11-24] MEDS: LACTATED RINGERS 1,000 ML 999 ML IV CONT ×2 (09:04→09:45)
[2021-11-24 09:11] LABS: Base Excess ABG -5.9 mEq/l (+/-2.0); Carboxyhemoglobin 0.7 % THb (0-2.0); Fractional Inspired Oxygen 21 %; HCO3 ABG 19.7 mEq/l (22.0-26.0); Methemoglobin ABG 0.2 %THb (0-1.5); Oxygen Content ABG 17.4 %vol (16.0-22.0); Oxygen Saturation ABG 94.4 % (95.0-100.0); Oxyhemoglobin 90.9 % THb (90.0-100.0); PCO2 ABG 39.1 mmHg (35.0-45.0); PO2 ABG 76.9 mmHg (80.0-100.0); PO2 FiO2 Ratio Arterial Blood 3.66 %; Reduced Hemoglobin 8.2 %THb (0-5.0); Total Hemoglobin 13.6 g/dL (12.0-18.0)
[2021-11-24 09:12] LABS: Device ROOM AIR; Modified Allen's Test Pass; Site Drawn RIGHT RADIAL
--- NOTE | 2021-11-24 09:13 | ED.ALCOHOL ---
HPI - Alcohol General Chief Complaint: Alcohol Stated Complaint: Intoxication, AMS Time Seen by Provider: 11/24/21 08:46 Source: EMS and RN notes reviewed Mode of arrival: EMS Limitations: altered mental status History of Present Illness HPI narrative: This is a 41 year old female with history of diabetes who presents for evaluation of altered mental status. EMS reports that police went to patient's home for wellness check. It is reported that she was found drinking from bottle of vodka. PAtient is crying uncontrollably and unable to provide history. MD complaint: alcohol intoxication Related Data Home Medications Medication Instructions Recorded Confirmed aripiprazole 15 mg tablet 15 mg PO AC 06/30/21 11/24/21 atorvastatin 10 mg tablet 10 mg PO DAILY 06/30/21 11/24/21 bupropion HCl 150 mg 24 hr tablet, 150 mg PO DAILY 06/30/21 11/24/21 extended release citalopram 40 mg tablet 40 mg PO DAILY 06/30/21 11/24/21 insulin aspart U-100 100 unit/mL 1 sliding scale dose subcut 07/01/21 11/24/21 subcutaneous solution (Novolog USEASDIRECTD U-100 Insulin aspart) pregabalin 75 mg capsule (Lyrica) 75 mg PO TID 07/01/21 11/24/21 hydroxyzine HCl 25 mg tablet 25 mg PO TID PRN Anxiety 11/24/21 11/24/21 hydroxyzine pamoate 100 mg capsule 100 mg PO HS 11/24/21 11/24/21 insulin glargine 100 unit/mL 35 unit subcut HS 11/24/21 11/24/21 subcutaneous solution (Lantus U-100 Insulin) Allergies Allergy/AdvReac Type Severity Reaction Status Date / Time No Known Allergies Allergy Unknown Verified 11/24/21 17:38 Review of Systems Review of Systems: ROS unobtainable: Yes unobtainable due to medical condition PMFSH Past Medical History Medical History (Updated 11/24/21 @ 18:45 by Saira Hancock MD) Anxiety Bipolar disorder Depression DVT (deep venous thrombosis) Dyslipidemia Hepatitis IDDM (insulin dependent diabetes mellitus) Necrotizing pancreatitis Neuropathy Surgical History Surgical History History of section 2003, 2010, 2016 History of ERCP 06/2019 History of surgery on arm Left - 2019 History of tubal ligation [place] teeth extracted age 23 Family History Family History Mother Diabetes mellitus Family history of coronary artery disease Family history of dementia Social History Social History (Updated 06/30/21 @ 15:01 by Thelma Mensah NP) Social History: The patient has 3 children. She is currently from her and unemployed. She currently smokes half a pack of cigarettes a day. The patient is a recovering alcoholic and has not drink since March of 2021. 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 Code status full code Smoking packs per day: 1 Smoking cigarettes per day: 20.0 Years smoked: 20 Smoking pack-years: 20.00 Smoking status: Current every day smoker Tobacco type: cigarettes Second hand tobacco smoke exposure: Yes Additional smoking assessment comments: quit 4 months ago Alcohol intake: current Drinks per week: 35 Substance use: never Substance use type: does not use Gender identity (if verbalized by the patient): Female Spiritual care concerns: No Exam Const: Nutritional Appearance: thin Limitations: altered mental status Other: patient crying and mumbling HENMT: Head: normal to inspection Face and sinus: normal facial exam Mouth: Yes Normal oral and palatal mucosa present Teeth and gingiva: abnormal tooth and associated gingiva Throat: uvula midline Other: poor dentition, multiple decayed teeth Eyes: Pupils: Equal, round and reactive pupils present EOM: EOMs intact bilaterally Resp: Effort & Inspection: normal respiratory effort Auscultation: clear to auscultation bilaterally Cardio: Rate: tachycardic Rhythm: regular rhythm Heart sounds: no murmurs GI: GI Palp: Y
[2021-11-24 09:18] LABS: Basophils Percent Auto 0.3 % (0.2-1.2); Eosinophils Absolute Auto 0.2 K/mm3 (0-0.3); Eosinophils Percent Auto 2.5 % (0-4.4); Hematocrit 42.5 % (37.0-47.0); Hemoglobin 13.9 g/dL (12.0-15.0); Immature Granulocyte Absolute 0.01 K/mm3 (0.00-0.031); Immature Granulocyte Percent A 0.1 % (0-0.5); Lymphocytes Percent Auto 35.3 % (18.3-44.2); Mean Corpuscular HGB Conc 32.7 g/dl (32-36); Mean Corpuscular Hemoglobin 29.7 pg (26-34); Mean Corpuscular Volume 90.8 fl (80-100); Mean Platelet Volume 9.9 fl (7.4-10.4); Monocytes Absolute Auto 0.6 K/mm3 (0.1-0.6); Monocytes Percent Auto 8.3 % (2.6-8.5); Neutrophils Absolute Auto 3.8 K/mm3 (1.3-6.7); Neutrophils Percent Auto 53.5 % (45.5-73.1); Platelet Count Result 145 k/mm3 (150-375); Red Blood Count 4.68 M/mm3 (4.2-5.4); Red Cell Distribution Width 14.6 % (11.5-14.5); White Blood Count 7.1 K/mm3 (4.5-10.0)
--- NOTE | 2021-11-24 09:25 | PC.NURSE ---
Pt placed on bed alarm, yellow clasp applied and yellow triangle on outside of room. Pt resting on bed at this time
[2021-11-24 09:31] LABS: Appearance Urine Clear (Clear); Bilirubin Urine Negative (Negative); Blood Urine Negative (Negative); Color Urine Yellow (Yellow); Glucose Urine UA 3+ mg/dL (Negative); Ketones Urine Negative (Negative); Leukocyte Esterase Ur Negative LEU/UL (Negative); Nitrate Urine Negative (Negative); Protein Urine Negative (Negative); Urobilinogen Urine 0.2 mg/dL (<2.0); pH Urine 5.5 (5.0-9.0)
[2021-11-24 09:41] LABS: Add Urine Microscopic? YES
[2021-11-24 09:55] LABS: SARS-CoV-2 RNA PCR Negative
[2021-11-24 09:59] LABS: Troponin I < 0.012 ng/mL (0.000-0.034)
[2021-11-24 10:03] LABS: Alanine Aminotransferase 24 U/L (6-35); Albumin Level 3.9 g/dL (3.5-5.1); Alkaline Phosphatase 149 U/L (38-126); Anion Gap 14 mmol/L (8-16); Aspartate Amino Transferase 32 U/L (14-36); Beta HCG Quantitative < 2.39 mIU/ML; Bilirubin,Total 0.3 mg/dL (0.2-1.3); Blood Urea Nitrogen 9 mg/dL (7-17); Calcium 7.9 mg/dL (8.4-10.2); Carbon Dioxide 19 mmol/L (22-30); Chloride 103 mmol/L (98-107); Creatine Kinase 103 U/L (30-135); Estimated CRCL calculation 85 ml/min; Estimated Glomerular Filt Rate > 60; Glucose 566 mg/dL (65-110); Lipase 76 U/L (23-300); Magnesium 1.6 mg/dL (1.6-2.3); Sodium 136 mmol/L (137-145)
[2021-11-24 10:07] LABS: Ethanol 441 mg/dL (<10)
[2021-11-24 10:28] LABS: Amphetamine Screen Urine Negative (Negative); Barbiturate Screen Urine Negative (Negative); Benzodiazepines Screen Urine Negative (Negative); Cannabinoid Screen Urine Negative (Negative); Cocaine Screen Urine Negative (Negative); Methadone Screen Urine Negative (Negative); Opiate Screen Urine Negative (Negative); Phencyclidine Screen Urine Negative (Negative)
[2021-11-24] MEDS: INSULIN HUMAN REGULAR (*BKC) 100 UNITS/ML 10 UNITS SUB-Q (10:44)
[2021-11-24 11:44] LABS: Glucose Point of Care 335 mg/dl (65-105)
[2021-11-24 12:05] LABS: Lactic Acid Reflex 5.3 mmol/L (0.7-2.0)
[2021-11-24 12:06] LABS: Partial Thromboplastin Time 29.2 SECONDS (22.3-36.8); Prothrombin Time 13.1 Seconds (11.1-14.7)
[2021-11-24] MEDS: SODIUM CHLORIDE 0.9% IV 1,000 ML 999 ML IV CONT ×2 (13:06)
[2021-11-24 13:51] LABS: Anion Gap 7 mmol/L (8-16); Blood Urea Nitrogen 7 mg/dL (7-17); Calcium 7.5 mg/dL (8.4-10.2); Carbon Dioxide 25 mmol/L (22-30); Chloride 108 mmol/L (98-107); Estimated CRCL calculation 121 ml/min; Estimated Glomerular Filt Rate > 60; Glucose 235 mg/dL (65-110); Sodium 140 mmol/L (137-145)
[2021-11-24 14:39] LABS: Glucose Point of Care 129 mg/dl (65-105)
[2021-11-24 14:52] LABS: Reflex Lactic Acid Yes or No Add Lactic
--- NOTE | 2021-11-24 15:22 | PC.NURSE ---
Pt incontinent of bowels, cleaned up and linens changed. Pt A&Ox4 at this time
[2021-11-24 15:27] LABS: Lactic Acid 3.9 mmol/L (0.7-2.0)
[2021-11-24] MEDS: THIAMINE HCL INJ 100 MG, FOLIC ACID INJ 1 MG, MULTIVITAMINS-12 INJ VIAL 1 5 ML, MULTIVI... IV CONT (16:04)
--- NOTE | 2021-11-24 17:20 | PC.NURSE ---
This patient, Marisa Lott, was admitted to IMU Room 207-01. Patient/family oriented to hospital policies and general routines including ID bracelet, bed and alarms, visiting hours, pain management, procedures, bathroom and other care routines, personal items, smoking policy, room service/diet, and visiting hours. Information on how to activate the Rapid Response Team has been discussed. Patient/Family are encouraged to report perceived risks to care and to ask questions if they do not understand what they are told or what they should do.
[2021-11-24 17:52] LABS: Glucose Point of Care 97 mg/dl (65-105)
--- NOTE | 2021-11-24 18:01 | PM.IMHP ---
H&P: HPI History of Present Illness Date/Time: Patient was placed observation status for expected length of stay less than 23 hours for management, will plan to re-evaluate tomorrow for improvement. 11/24/21 18:01 Chief Complaint: Altered mental status Narrative: Ms. Lott is a 41-year-old female who was brought to the emergency room via EMS with altered mental status. Patient has a known history of diabetes mellitus and bipolar disorder. Per emergency room records the police were sent patient's house for a wellness check and when the police department arrived the patient was found drinking a bottle of vodka and crying uncontrollably. Patient was able to ride any history at that point in time. At this point time patient will nod to questions but not give full answers. Upon evaluation emergency room patient was quite combative and sobbing uncontrollably. Patient was noted to have an alcohol level 441 and a lactic acidosis. Patient was also noted to be quite hyperglycemic. Patient states she has not been taking any of her home medication and does have a known history of diabetes and bipolar disorder. Patient denies any other complaints and cannot recall why she is in the hospital or what hospital she is at. Patient states she does have a known history of liver disease and does follow up at [facility] for this issue. Review of Systems Review of Systems: I am unable to obtain a full review of systems secondary to patient's clinical condition. [facility] Past Medical History Medical History (Updated 11/24/21 @ 18:06 by Concepción Michel APRN) Anxiety Bipolar disorder Depression DVT (deep venous thrombosis) Dyslipidemia Hepatitis IDDM (insulin dependent diabetes mellitus) Necrotizing pancreatitis Neuropathy Surgical History Surgical History History of section 2003, 2010, 2015 History of ERCP 06/2019 History of surgery on arm Left - 2019 History of tubal ligation [place] teeth extracted age 23 Family History Family History Mother Diabetes mellitus Family history of coronary artery disease Family history of dementia Social History Social History (Updated 06/30/21 @ 15:01 by Thelma Mensah NP) Social History: The patient has 3 children. She is currently from her and unemployed. She currently smokes half a pack of cigarettes a day. The patient is a recovering alcoholic and has not drink since March of 2021. She does not have a durable power estate attorney for healthcare. Code status full code Smoking packs per day: 1 Smoking cigarettes per day: 20.0 Years smoked: 20 Smoking pack-years: 20.00 Smoking status: Current every day smoker Tobacco type: cigarettes Second hand tobacco smoke exposure: Yes Additional smoking assessment comments: quit 4 months ago Alcohol intake: current Drinks per week: 35 Substance use: never Substance use type: does not use Gender identity (if verbalized by the patient): Female Spiritual care concerns: No Meds Home Medications and Allergies Home Medications Medication Instructions Recorded Confirmed Type aripiprazole 15 mg tablet 15 mg PO AC 06/30/21 11/24/21 History atorvastatin 10 mg tablet 10 mg PO DAILY 06/30/21 11/24/21 History bupropion HCl 150 mg 24 hr tablet, 150 mg PO DAILY 06/30/21 11/24/21 History extended release citalopram 40 mg tablet 40 mg PO DAILY 06/30/21 11/24/21 History insulin aspart U-100 100 unit/mL 1 sliding scale dose subcut 07/01/21 11/24/21 History subcutaneous solution (Novolog USEASDIRECTD U-100 Insulin aspart) pregabalin 75 mg capsule (Lyrica) 75 mg PO TID 07/01/21 11/24/21 History hydroxyzine HCl 25 mg tablet 25 mg PO TID PRN Anxiety 11/24/21 11/24/21 History hydroxyzine pamoate 100 mg capsule 100 mg PO HS 11/24/21 11/24/21 History insulin glargine 100 unit/mL 35 ml subc
[2021-11-24] MEDS: LORazepam INJ (*CRX) 2 MG/ML VIAL 1 MG IV PUSH (18:54)
[2021-11-24 19:53] LABS: Basophils Percent Auto 0.5 % (0.2-1.2); Eosinophils Absolute Auto 0.1 K/mm3 (0-0.3); Eosinophils Percent Auto 2.2 % (0-4.4); Hematocrit 37.3 % (37.0-47.0); Hemoglobin 12.3 g/dL (12.0-15.0); Immature Granulocyte Absolute 0.01 K/mm3 (0.00-0.031); Immature Granulocyte Percent A 0.2 % (0-0.5); Lymphocytes Absolute Auto 2.63 K/mm3 (0.9-3.2); Mean Corpuscular Hemoglobin 30.1 pg (26-34); Mean Corpuscular Volume 91.2 fl (80-100); Mean Platelet Volume 9.6 fl (7.4-10.4); Monocytes Absolute Auto 0.6 K/mm3 (0.1-0.6); Monocytes Percent Auto 8.7 % (2.6-8.5); Neutrophils Percent Auto 47.4 % (45.5-73.1); Platelet Count Result 106 k/mm3 (150-375); Red Blood Count 4.09 M/mm3 (4.2-5.4); Red Cell Distribution Width 14.5 % (11.5-14.5); White Blood Count 6.4 K/mm3 (4.5-10.0)
[2021-11-24 19:55] LABS: Glucose Point of Care 157 mg/dl (65-105)
[2021-11-24 20:06] LABS: Anion Gap 10 mmol/L (8-16); Blood Urea Nitrogen 7 mg/dL (7-17); Calcium 7.6 mg/dL (8.4-10.2); Carbon Dioxide 20 mmol/L (22-30); Chloride 107 mmol/L (98-107); Estimated CRCL calculation 127 ml/min; Estimated Glomerular Filt Rate > 60; Glucose 137 mg/dL (65-110); Sodium 137 mmol/L (137-145)
[2021-11-24 20:08] LABS: Lactic Acid Reflex 3.5 mmol/L (0.7-2.0)
[2021-11-24] MEDS: INSULIN GLARGINE (*BKC) 100 UNITS/ML 35 UNITS SUB-Q (20:28)
[2021-11-24] MEDS: hydrOXYzine pamoate 25 MG CAPSULE 100 MG PO (20:29)
[2021-11-24] MEDS: PREGABALIN (*CRX) 75 MG CAPSULE PO (23:48)
[2021-11-25] VITALS (14 sets, daily range): BP systolic 121–137; BP diastolic 78–80; PULSE 63–86; RESP 18–20; TEMP 36.3–36.9; O2SAT 97–100
[2021-11-25] MEDS: LORazepam INJ (*CRX) 2 MG/ML VIAL 1 MG IV PUSH (00:53)
[2021-11-25 05:08] LABS: Basophils Percent Auto 0.4 % (0.2-1.2); Eosinophils Absolute Auto 0.2 K/mm3 (0-0.3); Eosinophils Percent Auto 3.2 % (0-4.4); Hematocrit 35.8 % (37.0-47.0); Hemoglobin 11.9 g/dL (12.0-15.0); Immature Granulocyte Absolute 0.01 K/mm3 (0.00-0.031); Immature Granulocyte Percent A 0.2 % (0-0.5); Immature Platelet Fraction Pct 3.5 % (0.9-11.2); Lymphocytes Absolute Auto 2.34 K/mm3 (0.9-3.2); Lymphocytes Percent Auto 43.4 % (18.3-44.2); Mean Corpuscular HGB Conc 33.2 g/dl (32-36); Mean Corpuscular Hemoglobin 30.1 pg (26-34); Mean Corpuscular Volume 90.6 fl (80-100); Mean Platelet Volume 9.6 fl (7.4-10.4); Monocytes Absolute Auto 0.5 K/mm3 (0.1-0.6); Monocytes Percent Auto 8.5 % (2.6-8.5); Neutrophils Absolute Auto 2.4 K/mm3 (1.3-6.7); Neutrophils Percent Auto 44.3 % (45.5-73.1); Platelet Count Result 95 k/mm3 (150-375); Red Blood Count 3.95 M/mm3 (4.2-5.4); Red Cell Distribution Width 14.2 % (11.5-14.5); White Blood Count 5.4 K/mm3 (4.5-10.0)
[2021-11-25 05:25] LABS: Alanine Aminotransferase 21 U/L (6-35); Alkaline Phosphatase 108 U/L (38-126); Anion Gap 2 mmol/L (8-16); Aspartate Amino Transferase 32 U/L (14-36); Bilirubin,Total 0.4 mg/dL (0.2-1.3); Blood Urea Nitrogen 8 mg/dL (7-17); Calcium 7.8 mg/dL (8.4-10.2); Carbon Dioxide 27 mmol/L (22-30); Chloride 107 mmol/L (98-107); Estimated CRCL calculation 104 ml/min; Estimated Glomerular Filt Rate > 60; Glucose 66 mg/dL (65-110); Potassium 3.6 mmol/L (3.4-5.0); Sodium 136 mmol/L (137-145)
[2021-11-25] MEDS: chlordiazePOXIDE (*CRX) 25 MG CAPSULE PO ×3 (06:29→17:40)
[2021-11-25 07:49] LABS: Glucose Point of Care 52 mg/dl (65-105)
[2021-11-25 08:23] LABS: Glucose Point of Care 100 mg/dl (65-105)
[2021-11-25] MEDS: CITALOPRAM HYDROBROMIDE 20 MG TABLET 40 MG PO (09:52)
[2021-11-25] MEDS: ATORVASTATIN 10 MG TABLET PO (09:52)
[2021-11-25] MEDS: buPROPion HCL XL (24 HR) 150 MG TABCR PO (09:52)
[2021-11-25] MEDS: ENOXAPARIN 40 MG/0.4 ML SYRINGE SUB-Q (09:53)
[2021-11-25] MEDS: PREGABALIN (*CRX) 75 MG CAPSULE PO ×3 (09:54→17:40)
[2021-11-25 12:03] LABS: Glucose Point of Care 174 mg/dl (65-105)
[2021-11-25 16:20] LABS: Glucose Point of Care 189 mg/dl (65-105)
--- NOTE | 2021-11-25 16:35 | PM.IMPN ---
Progress Note: A&P Assessment and Plan (1) Alcohol intoxication: Code(s): F10.929 - Alcohol use, unspecified with intoxication, unspecified Status: Acute Assessment and Plan: Will place patient on CIWA protocol and hydrate patient with multivitamins and, thiamine, and magnesium. 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 (3) Bipolar disorder: Code(s): F31.9 - Bipolar disorder, unspecified Status: Acute Assessment and Plan: Will resume patient's home antipsychotics. Unsure of how long patient has not been taking them so will have to monitor very closely. Additional Plan 11/25/2021 interval history: patient remains somnolent and depression appear to be crying patient with psychiatric illness managed by primary care patient has not seen a psychiatrist, will consult Psychiatry for further recommendation and patient may benefit going into inpatient psychiatry [facility]. Subjective Date/time seen: 11/25/21 16:35 Altered mental status Narrative: Ms. Lott is a 41-year-old female who was brought to the emergency room via EMS with altered mental status.? Patient has a known history of diabetes mellitus and bipolar disorder.? Per emergency room records the police were sent patient's house for a wellness check and when the police department arrived the patient was found drinking a bottle of vodka and crying uncontrollably.? Patient was able to ride any history at that point in time.? At this point time patient will nod to questions but not give full answers.? Upon evaluation emergency room patient was quite combative and sobbing uncontrollably.? Patient was noted to have an alcohol level 441 and a lactic acidosis.? Patient was also noted to be quite hyperglycemic.? Patient states she has not been taking any of her home medication and does have a known history of diabetes and bipolar disorder.? Patient denies any other complaints and cannot recall why she is in the hospital or what hospital she is at.? Patient states she does have a known history of liver disease and does follow up at [place] for this issue. 11/25/2021 interval history: patient remains somnolent and depression appear to be crying patient with psychiatric illness managed by primary care patient has not seen a psychiatrist, will consult Psychiatry for further recommendation and patient may benefit going into inpatient psychiatry [facility]. Review of Systems Review of Systems: I am unable to obtain a full review of systems secondary to patient's clinical condition. Exam Narrative: appears depressed and crying Patient is comfortable, NAD HEENT: eyes are clear and none icteric LUNGS: normal respiratory effort ABD: not distended Lower extremities: no edema SKIN: nonjaundiced Neuro: grossly intact. Objective Data Vital Signs Vital Signs: Vital Signs - 24 hr 11/24/21 17:20 11/24/21 18:00 11/24/21 17:30 Temperature 98.5 F Pulse Rate 75 91 Pulse Rate [Apical Auscultation] Respiratory Rate 12 Blood Pressure 118/74 Pulse Oximetry 100 Oxygen Delivery Room Air 11/24/21 19:55 11/24/21 19:56 11/24/21 23:48 Temperature 97.8 F 99.7 F H Pulse Rate 91 80 Pulse Rate [Apical Auscultation] Respiratory Rate 20 18 Blood Pressure 104/70 123/82 Pulse Oximetry 97 94 100 Oxygen Delivery Room Air 11/24/21 20:00 11/24/21 22:00 11/25/21 00:00 Temperature Pulse Rate 86 78 86 Pulse Rate [Apical Auscultation] Respiratory Rate Blood Pressure Pulse Oximetry Oxygen Delivery 11/25/21 02:00 11/25/21 00:00 11/25/21 04:00 Temperature Pulse Rate 78 77 Pulse Rate [Apical Auscultation] Respiratory Rate Blood Pressure Pulse
[2021-11-25 20:57] LABS: Glucose Point of Care 339 mg/dl (65-105)
[2021-11-25] MEDS: INSULIN GLARGINE (*BKC) 100 UNITS/ML 35 UNITS SUB-Q (21:10)
[2021-11-25] MEDS: hydrOXYzine pamoate 25 MG CAPSULE 100 MG PO (21:11)
[2021-11-26] VITALS: BP 137/80; PULSE 82
[2021-11-26] MEDS: chlordiazePOXIDE (*CRX) 25 MG CAPSULE PO ×5 (00:27→23:00)
[2021-11-26 05:00] VITALS: BP 128/76; PULSE 60; RESP 18; TEMP 36.6; O2SAT 97
[2021-11-26 05:07] LABS: Hematocrit 36.3 % (37.0-47.0); Hemoglobin 11.9 g/dL (12.0-15.0); Immature Platelet Fraction Pct 5.2 % (0.9-11.2); Mean Corpuscular HGB Conc 32.8 g/dl (32-36); Mean Corpuscular Hemoglobin 29.7 pg (26-34); Mean Corpuscular Volume 90.5 fl (80-100); Mean Platelet Volume 10.6 fl (7.4-10.4); Platelet Count Result 78 k/mm3 (150-375); Red Blood Count 4.01 M/mm3 (4.2-5.4); Red Cell Distribution Width 13.7 % (11.5-14.5); White Blood Count 3.6 K/mm3 (4.5-10.0)
[2021-11-26 06:43] LABS: Anion Gap 5 mmol/L (8-16); Blood Urea Nitrogen 7 mg/dL (7-17); Calcium 8.6 mg/dL (8.4-10.2); Carbon Dioxide 28 mmol/L (22-30); Chloride 103 mmol/L (98-107); Estimated CRCL calculation 104 ml/min; Estimated Glomerular Filt Rate > 60; Glucose 116 mg/dL (65-110); Magnesium 1.7 mg/dL (1.6-2.3); Potassium 3.8 mmol/L (3.4-5.0); Sodium 136 mmol/L (137-145)
[2021-11-26 07:43] LABS: Glucose Point of Care 102 mg/dl (65-105)
[2021-11-26 07:59] VITALS: BP 112/68; PULSE 60; RESP 16; TEMP 36.7; O2SAT 100
[2021-11-26] MEDS: PREGABALIN (*CRX) 75 MG CAPSULE PO ×3 (08:40→17:00)
[2021-11-26] MEDS: CITALOPRAM HYDROBROMIDE 20 MG TABLET 40 MG PO (08:41)
[2021-11-26] MEDS: ATORVASTATIN 10 MG TABLET PO (08:41)
[2021-11-26] MEDS: buPROPion HCL XL (24 HR) 150 MG TABCR PO (08:41)
[2021-11-26 11:45] LABS: Glucose Point of Care 284 mg/dl (65-105)
[2021-11-26] MEDS: INSULIN ASPART (*BKC) 100 UNITS/ML SUB-Q (12:02)
[2021-11-26 12:44] VITALS: BP 132/75; PULSE 76; RESP 16; TEMP 37.2; O2SAT 99
--- NOTE | 2021-11-26 14:42 | PC.NURSE ---
pt med/surg status- pt moved to room 326 via wheelchair- condition stable-report given to Kami ANDINO- belongings with pt
--- NOTE | 2021-11-26 14:42 | PC.NURSE ---
Patient transfer to room 326 at 1445 from IMU bed 207.
--- NOTE | 2021-11-26 15:01 | PM.IMPN ---
Progress Note: A&P Assessment and Plan (1) Alcohol intoxication: Code(s): F10.929 - Alcohol use, unspecified with intoxication, unspecified Status: Acute Assessment and Plan: Will place patient on CIWA protocol and hydrate patient with multivitamins and, thiamine, and magnesium. 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 (3) Bipolar disorder: Code(s): F31.9 - Bipolar disorder, unspecified Status: Acute Assessment and Plan: Will resume patient's home antipsychotics. Unsure of how long patient has not been taking them so will have to monitor very closely. Additional Plan 11/25/2021 interval history: patient remains somnolent and depression appear to be crying patient with psychiatric illness managed by primary care patient has not seen a psychiatrist, will consult Psychiatry for further recommendation and patient may benefit going into inpatient psychiatry [facility]. 11/26/2021 interval history: on 11/25 patient was somnolent and depression, was crying, today patient is more calm and interactive, denies any complaint, upon arrival patient alcohol level was 400 patient still has risk DT being monitor with CIWA protocol and Librium, patient with psychiatric illness managed by primary care patient has not seen a psychiatrist, will consult Psychiatry for further recommendation and patient may benefit going into inpatient psychiatry [facility]. patient is being treated with thiamine and folic acid, will have PT OT evaluate the patient. Subjective Date/time seen: 11/26/21 15:01 11/26/2021 interval history: on 11/25 patient was somnolent and depression, was crying, today patient is more calm and interactive, denies any complaint, upon arrival patient alcohol level was 400 patient still has risk DT being monitor with CIWA protocol and Librium, patient with psychiatric illness managed by primary care patient has not seen a psychiatrist, will consult Psychiatry for further recommendation and patient may benefit going into inpatient psychiatry [facility]. patient is being treated with thiamine and folic acid, will have PT OT evaluate the patient. Exam Narrative: appears depressed and crying Patient is comfortable, NAD HEENT: eyes are clear and none icteric LUNGS: normal respiratory effort ABD: not distended Lower extremities: no edema SKIN: nonjaundiced Neuro: grossly intact. Objective Data Vital Signs Vital Signs: Vital Signs - 24 hr 11/25/21 16:20 11/25/21 16:43 11/25/21 20:00 Temperature 98.1 F 97.9 F Pulse Rate 71 63 Pulse Rate [Apical Auscultation] 82 Respiratory Rate 18 20 Blood Pressure 126/78 137/80 Pulse Oximetry 99 97 Oxygen Delivery 11/25/21 20:00 11/25/21 22:56 11/26/21 00:00 Temperature Pulse Rate 63 63 Pulse Rate [Apical Auscultation] 82 Respiratory Rate 20 Blood Pressure 137/80 Pulse Oximetry 97 Oxygen Delivery Room Air 11/26/21 05:00 11/26/21 07:59 11/26/21 12:44 Temperature 97.8 F 98.0 F 98.9 F Pulse Rate 60 60 76 Pulse Rate [Apical Auscultation] Respiratory Rate 18 16 16 Blood Pressure 128/76 112/68 132/75 Pulse Oximetry 97 100 99 Oxygen Delivery Intake/Output Intake/Output: Intake & Output 11/23/21 11/24/21 11/25/21 11/26/21 23:59 23:59 23:59 23:59 Intake Total 4300 2673.2 2080 Output Total 650 3900 2900 Balance 3650 -1226.8 -820 Meds/Results Medications: Active Medications Generic Name Dose Route Start Last Admin Trade Name Freq PRN Reason Stop Dose Admin Aripiprazole 10 mg/ 15 mg 11/25/21 09:00 11/26/21 08:40 Aripiprazole 5 mg PO 15 mg QAM EDIE Administration Atorvastatin Calcium 10 mg 11/25/21 09:00 11/26/21 08:41
[2021-11-26 15:16] VITALS: BP 125/81; PULSE 69; RESP 16; TEMP 36.8; O2SAT 100
[2021-11-26 16:49] LABS: Glucose Point of Care 138 mg/dl (65-105)
--- NOTE | 2021-11-26 19:33 | WPDCNPSYCH ---
HPI Data of Consult Date/Time: 11/26/21 19:33 Requesting Physician: Radha Rosario DO Primary Care Provider: Fern PortilloMD Consult Narrative Narrative: Diagnoses: Persistent depressive disorder Alcohol poisoning, resolved Alcohol use disorder Alcohol induced depressive disorder Nicotine use disorder No alcohol withdrawal syndrome Unspecified personality disorder Discussion: After 7 or 8 months of sobriety, the patient relapsed 5 days ago for about 2 or 3 days duration with heavy drinking. In such a brief period of time the patient is unlikely to have developed physical dependency on alcohol. She is not having an alcohol withdrawal syndrome as evidence by very stable vital signs. The patient's last drink was on the day of admission. Plan: Patient's Librium will be changed from Librium 25mg p.o. q.6 hours scheduled to Librium 25mg p.o. q.4 hours p.r.n. objective signs of withdrawal Celexa (citalopram) 40mg p.o. q.a.m. for her mixed anxious depressive syndrome Wellbutrin (bupropion) XL 150mg p.o. q.a.m. for her depressive syndrome Abilify (aripiprazole) 15mg p.o. q.a.m. will be discontinued as it has been since May 2021 Considered discontinuing hydroxyzine 25mg p.o. t.i.d. p.r.n.; and, 100mg p.o. q.h.s. because the anticholinergic antihistaminic side effects may slow her gut motility which can be a problem for diabetic patient's Care coordination to document outpatient follow-up with a psychiatrist, case reviewer/counselor, and for substance abuse rehab. Reason for consultation: Patient is a 41-year-old lady whose consultation for Psychiatry was ordered to evaluate her for untreated bipolar disorder and depression Review of systems: Patient reports that her feet are numb tingly with lightening bolts of discomfort. Otherwise she denies any other problems with her head chest abdomen arms legs or joints. Mental status exam: Patient has a self-care deficit. Eye contact is normal. Posture is normal in line in a hospital bed. Psychomotor activity is normal. Speech is normal in rate, volume, and is goal-directed. Her mood is: ?Sad. ? Her affect is mildly anxious. She denies suicidal or homicidal ideation. She denies being an injury risk to herself or others. She denies any auditory or visual hallucinations or paranoia. She reports that when she turns the television off she can hear the radial mentioned above. She has no clear convincing evidence of hallucinations paranoia or other delusions. Her thought process is logical, sequential, and goal-directed. She has no self talk. She is not responding to inner stimuli. She seems to be below average in intelligence, fund of knowledge, insight and judgment. Medical evaluation: Labs and radiographic studies and EKG have been reviewed: Urine drug screen: Negative Blood alcohol level 441 CTA of the abdomen and pelvis: Colitis. 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 Chronic pancreatitis CT of the head without contrast: Normal History of present illness: Quality: The patient reports depressed mood on most days due to ?my messed up my life. ? She reports that she has had anxiety all of her life. She reports that the anxiety makes it even difficult for her to make a phone call. Patient has no additional spontaneously reported emotional or psychological symptoms. Associated symptoms: When prompted by the interviewer's questions and comments the patient reports that sometimes her sleep is too little other times too much and that this has been a pattern unchanged for 4 years. She reports a 40lb weight loss over the past 4 months. She reports feelings of worthlessness on most days for 4 years. She denies a change in irritability. She reports decreased concentration and a low activity level for the past 7 months. She denies any auditory or visual hallucinations or paranoia. She reports sometimes she can hear a radio that isn't there bu
[2021-11-26] MEDS: INSULIN GLARGINE (*BKC) 100 UNITS/ML 35 UNITS SUB-Q (20:23)
[2021-11-26 21:38] LABS: Glucose Point of Care 366 mg/dl (65-105)
[2021-11-26 22:00] VITALS: BP 141/80; PULSE 67; RESP 18; TEMP 36.8; O2SAT 98
[2021-11-27 05:00] VITALS: BP 117/76; PULSE 65; RESP 16; TEMP 36.8; O2SAT 100
[2021-11-27 06:02] LABS: Hematocrit 39.8 % (37.0-47.0); Hemoglobin 12.9 g/dL (12.0-15.0); Immature Platelet Fraction Pct 6.9 % (0.9-11.2); Mean Corpuscular HGB Conc 32.4 g/dl (32-36); Mean Corpuscular Hemoglobin 29.9 pg (26-34); Mean Corpuscular Volume 92.3 fl (80-100); Mean Platelet Volume 10.2 fl (7.4-10.4); Platelet Count Result 77 k/mm3 (150-375); Red Blood Count 4.31 M/mm3 (4.2-5.4); Red Cell Distribution Width 13.5 % (11.5-14.5); White Blood Count 3.8 K/mm3 (4.5-10.0)
[2021-11-27 06:17] LABS: Anion Gap 3 mmol/L (8-16); Blood Urea Nitrogen 8 mg/dL (7-17); Calcium 8.6 mg/dL (8.4-10.2); Carbon Dioxide 27 mmol/L (22-30); Chloride 103 mmol/L (98-107); Estimated CRCL calculation 104 ml/min; Estimated Glomerular Filt Rate > 60; Glucose 204 mg/dL (65-110); Magnesium 1.6 mg/dL (1.6-2.3); Potassium 3.9 mmol/L (3.4-5.0); Sodium 133 mmol/L (137-145)
[2021-11-27 07:54] LABS: Glucose Point of Care 176 mg/dl (65-105)
[2021-11-27] MEDS: buPROPion HCL XL (24 HR) 150 MG TABCR PO (08:46)
[2021-11-27] MEDS: CITALOPRAM HYDROBROMIDE 20 MG TABLET 40 MG PO (08:46)
[2021-11-27] MEDS: ATORVASTATIN 10 MG TABLET PO (08:47)
[2021-11-27] MEDS: PREGABALIN (*CRX) 75 MG CAPSULE PO ×3 (08:50→18:03)
[2021-11-27 10:01] VITALS: BP 119/79; PULSE 64; RESP 16; TEMP 36.8; O2SAT 100
[2021-11-27 11:30] LABS: Glucose Point of Care 318 mg/dl (65-105)
[2021-11-27] MEDS: INSULIN ASPART (*BKC) 100 UNITS/ML SUB-Q ×2 (11:40→17:03)
--- NOTE | 2021-11-27 14:44 | PM.IMPN ---
Progress Note: A&P Assessment and Plan (1) Alcohol intoxication: Code(s): F10.929 - Alcohol use, unspecified with intoxication, unspecified Status: Acute Assessment and Plan: Will place patient on CIWA protocol and hydrate patient with multivitamins and, thiamine, and magnesium. 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 (3) Bipolar disorder: Code(s): F31.9 - Bipolar disorder, unspecified Status: Acute Assessment and Plan: Will resume patient's home antipsychotics. Unsure of how long patient has not been taking them so will have to monitor very closely. Additional Plan 11/25/2021 interval history: patient remains somnolent and depression appear to be crying patient with psychiatric illness managed by primary care patient has not seen a psychiatrist, will consult Psychiatry for further recommendation and patient may benefit going into inpatient psychiatry [facility]. 11/26/2021 interval history: on 11/25 patient was somnolent and depression, was crying, today patient is more calm and interactive, denies any complaint, upon arrival patient alcohol level was 400 patient still has risk DT being monitor with CIWA protocol and Librium, patient with psychiatric illness managed by primary care patient has not seen a psychiatrist, will consult Psychiatry for further recommendation and patient may benefit going into inpatient psychiatry [facility]. patient is being treated with thiamine and folic acid, will have PT OT evaluate the patient. 11/27/2021 interval history: on 11/25 patient was somnolent and depression, was crying, today patient is more calm and interactive, denies any complaint, upon arrival patient alcohol level was 400 patient still has risk DT being monitor with CIWA protocol and Librium, patient with psychiatric illness managed by primary care patient has not seen a psychiatrist, patient was seen by Psychiatry and started the patient on anti depression and anxiety medication also tape Librium to p.r.n., also upon arrival patient had a complaint abdominal pain and diarrhea CT scan showed colitis being treated with Zosyn, discussed with the ID pharmacist will switch her over to Flagyl and Cipro, will consult GI for further recommendation, patient remains clinically stable patient is being treated with thiamine and folic acid, will have PT OT evaluate the patient. Subjective Date/time seen: 11/27/21 14:44 11/27/2021 interval history: on 11/25 patient was somnolent and depression, was crying, today patient is more calm and interactive, denies any complaint, upon arrival patient alcohol level was 400 patient still has risk DT being monitor with CIWA protocol and Librium, patient with psychiatric illness managed by primary care patient has not seen a psychiatrist, patient was seen by Psychiatry and started the patient on anti depression and anxiety medication also tape Librium to p.r.n., also upon arrival patient had a complaint abdominal pain and diarrhea CT scan showed colitis being treated with Zosyn, discussed with the ID pharmacist will switch her over to Flagbrodie and Windy, will consult GI for further recommendation, patient remains clinically stable patient is being treated with thiamine and folic acid, will have PT OT evaluate the patient. Exam Narrative: appears depressed and crying Patient is comfortable, NAD HEENT: eyes are clear and none icteric LUNGS: normal respiratory effort ABD: not distended Lower extremities: no edema SKIN: nonjaundiced Neuro: grossly intact. Objective Data Vital Signs Vital Signs: Vital Signs - 24 hr 11/26/21 15:16 11/26/21 15:50 11/26/21 20:00 Temperature 98.3 F Pulse Rate 69 Re
[2021-11-27 15:02] VITALS: BP 125/69; PULSE 70; RESP 16; TEMP 36.5; O2SAT 100
--- NOTE | 2021-11-27 15:31 | WPDGICN ---
Assessment and Plan Assessment and plan (1) Chronic diarrhea: Code(s): K52.9 - Noninfective gastroenteritis and colitis, unspecified Status: Acute Assessment and Plan: Patient reports chronic diarrhea. Given her history of necrotizing pancreatitis and findings of chronic pancreatitis on CT scan imaging most likely etiology for diarrhea is exocrine pancreatic insufficiency. I would treat with pancreatic enzymes. Fecal elastase will be obtain which may help support this diagnosis. Because of the question of colitis stool cultures will be obtained in I would treat with antibiotics only based on the results of these cultures. (2) Bipolar disorder: Code(s): F31.9 - Bipolar disorder, unspecified Status: Acute (3) Chronic pancreatitis: Code(s): K86.1 - Other chronic pancreatitis Status: Acute Assessment and Plan: CT scan imaging suggest chronic pancreatitis. Patient does have a history of severe necrotizing pancreatitis in the past. Currently has no pain and no additional therapy felt warranted at this time. Supportive care is suggested alcohol avoidance strongly encouraged. His this is undoubtedly the etiology for her pancreatitis. (4) Alcohol abuse: Code(s): F10.10 - Alcohol abuse, uncomplicated Status: Acute Assessment and Plan: Patient with a history of ongoing alcohol abuse. In fact was intoxicated at the time of admission. Alcohol rehab should strongly be offered to this patient. (5) Diabetes mellitus: Code(s): E11.9 - Type 2 diabetes mellitus without complications Status: Acute GI Consult Note Consult date/time: 11/27/21 15:31 Reason for consult: Abnormal x-ray HPI: Marisa Lott is a 41 year old female with a long history of alcohol abuse. Has a history of diabetes bipolar manic depressive illness and depression. Patient apparently admitted after uncontrollable crying and heavy drinking. She initially was taken to the hospital. But after mental status improved had complaints of chronic diarrhea. Patient states that in the past she has a history of necrotizing pancreatitis. And is felt to have chronic pancreatitis. She denies any fever. She has had no blood in her stools but she has chronic loose stool is been present for many months. She denies any ongoing abdominal pain. Family history is noncontributory. A CT scan of the abdomen chest and pelvis was performed. Raising the question of chronic pancreatitis by imaging and some thickening of the colon raising the question of a colitis. Review of Systems Review of Systems: Review of systems noncontributory. [facility] Past Medical History Medical History (Updated 11/27/21 @ 15:35 by Azeem Pike MD) Anxiety Bipolar disorder Depression DVT (deep venous thrombosis) Dyslipidemia Hepatitis IDDM (insulin dependent diabetes mellitus) Necrotizing pancreatitis Neuropathy Surgical History Surgical History History of section 2003, 2010, 2016 History of ERCP 06/2019 History of surgery on arm Left - 2019 History of tubal ligation [place] teeth extracted age 23 Family History Family History Mother Diabetes mellitus Family history of coronary artery disease Family history of dementia Social History Social History (Updated 06/30/21 @ 15:01 by Thelma Mensah NP) Social History: The patient has 3 children. She is currently from her and unemployed. She currently smokes half a pack of cigarettes a day. The patient is a recovering alcoholic and has not drink since March of 2021. She does not have a durable power workers compensation attorney for healthcare. Code status full code Smoking packs per day: 1 Smoking cigarettes per day: 20.0 Years smoked: 20 Smoking pack-years: 20.00 Smoking status: Current every day smoker Gabriel
[2021-11-27 16:41] LABS: Glucose Point of Care 362 mg/dl (65-105)
[2021-11-27] MEDS: metroNIDAZOLE 250 MG TABLET 500 MG PO ×2 (16:59→21:03)
[2021-11-27] MEDS: LIPASE/AMYLASE/PROTEASE 12,000 UNITS CAP 2 CAP PO (16:59)
[2021-11-27 19:33] LABS: IFOB Positive Control Positive; Immunochemical Fecal Occult Bl Negative (N)
[2021-11-27 20:08] LABS: Toxigenic C. Diff NEGATIVE (NEGATIVE)
[2021-11-27] MEDS: CIPROFLOXACIN 500 MG TAB PO (20:31)
[2021-11-27] MEDS: INSULIN GLARGINE (*BKC) 100 UNITS/ML 35 UNITS SUB-Q (20:31)
[2021-11-27] MEDS: chlordiazePOXIDE (*CRX) 25 MG CAPSULE PO (20:37)
[2021-11-27 20:46] LABS: Glucose Point of Care 319 mg/dl (65-105)
[2021-11-27 22:00] VITALS: BP 107/68; PULSE 67; RESP 18; TEMP 36.6; O2SAT 100
[2021-11-28] MEDS: chlordiazePOXIDE (*CRX) 25 MG CAPSULE PO ×3 (00:58→09:00)
[2021-11-28 02:53] LABS: Glucose Point of Care 189 mg/dl (65-105)
[2021-11-28] MEDS: metroNIDAZOLE 250 MG TABLET 500 MG PO ×2 (05:29→14:19)
[2021-11-28 05:34] VITALS: BP 111/78; PULSE 72; RESP 18; TEMP 36.4; O2SAT 100
[2021-11-28 06:12] LABS: Hemoglobin 13.3 g/dL (12.0-15.0); Immature Platelet Fraction Pct 7.1 % (0.9-11.2); Mean Corpuscular HGB Conc 32.4 g/dl (32-36); Mean Corpuscular Hemoglobin 29.5 pg (26-34); Mean Corpuscular Volume 90.9 fl (80-100); Mean Platelet Volume 10.6 fl (7.4-10.4); Platelet Count Result 98 k/mm3 (150-375); Red Blood Count 4.51 M/mm3 (4.2-5.4); Red Cell Distribution Width 13.5 % (11.5-14.5); White Blood Count 4.6 K/mm3 (4.5-10.0)
[2021-11-28 06:20] LABS: Anion Gap 3 mmol/L (8-16); Blood Urea Nitrogen 11 mg/dL (7-17); Calcium 8.8 mg/dL (8.4-10.2); Carbon Dioxide 30 mmol/L (22-30); Chloride 102 mmol/L (98-107); Estimated CRCL calculation 104 ml/min; Estimated Glomerular Filt Rate > 60; Glucose 223 mg/dL (65-110); Magnesium 1.5 mg/dL (1.6-2.3); Potassium 3.9 mmol/L (3.4-5.0); Sodium 135 mmol/L (137-145)
[2021-11-28 07:49] LABS: Glucose Point of Care 297 mg/dl (65-105)
[2021-11-28 08:00] VITALS: BP 116/80
[2021-11-28] MEDS: LIPASE/AMYLASE/PROTEASE 12,000 UNITS CAP 2 CAP PO ×2 (08:01→11:54)
[2021-11-28] MEDS: CIPROFLOXACIN 500 MG TAB PO (08:02)
[2021-11-28] MEDS: PREGABALIN (*CRX) 75 MG CAPSULE PO ×2 (08:02→11:59)
[2021-11-28] MEDS: INSULIN ASPART (*BKC) 100 UNITS/ML SUB-Q ×2 (08:03→11:54)
[2021-11-28] MEDS: CITALOPRAM HYDROBROMIDE 20 MG TABLET 40 MG PO (08:52)
[2021-11-28] MEDS: ATORVASTATIN 10 MG TABLET PO (08:52)
[2021-11-28] MEDS: buPROPion HCL XL (24 HR) 150 MG TABCR PO (08:52)
--- NOTE | 2021-11-28 09:09 | WPDGIPROGNO ---
Progress Note: A&P Assessment and Plan (1) Alcohol abuse: Code(s): F10.10 - Alcohol abuse, uncomplicated Status: Acute Assessment and Plan: Patient with alcohol abuse. Admitted with intoxication. Long-term alcohol avoidance advised. As this likely contributes to her pancreatitis and other comorbid diseases. (2) Chronic pancreatitis: Code(s): K86.1 - Other chronic pancreatitis Status: Acute Assessment and Plan: Patient does not appear to have an active flare of pancreatitis. She has a history of necrotizing pancreatitis in likely has diarrhea and pancreatic insufficiency on this basis. Creon or similar pancreatic enzyme should be continued with meals after discharge. (3) Colitis: Code(s): K52.9 - Noninfective gastroenteritis and colitis, unspecified Status: Acute Assessment and Plan: Thickening of the colon found on CT scan is nonspecific may represent colitis. Given her diarrhea stool cultures are pending. Antibiotic should only be given if this confirms an infection. Supportive care advised otherwise. High-fiber diet may also be beneficial. (4) Chronic diarrhea: Code(s): K52.9 - Noninfective gastroenteritis and colitis, unspecified Status: Acute Assessment and Plan: Patient with diarrhea likely on the basis of pancreatic insufficiency. Stool cultures pending to exclude infection. This can be monitored in the primary care setting after discharge. (5) Bipolar disorder: Code(s): F31.9 - Bipolar disorder, unspecified Status: Acute Subjective Date/time seen: 11/28/21 09:09 Patient alert comfortable this morning. Denies significant diarrhea at present. Denies abdominal pain. Review of Systems Review of Systems: Review of systems noncontributory. Exam Narrative: Physical exam reveals vital signs to be stable. HEENT exam reveals no icterus. She currently is comfortable at rest. Lungs are clear. Heart without murmur. Abdomen bowel sounds present soft nontender with no organomegaly. Objective Data Vital Signs Vital Signs: Vital Signs - 24 hr 11/27/21 10:01 11/27/21 15:02 11/27/21 20:00 Temperature 98.2 F 97.7 F Pulse Rate 64 70 Respiratory Rate 16 16 Blood Pressure 119/79 125/69 Pulse Oximetry 100 100 Oxygen Delivery Room Air 11/27/21 22:00 11/28/21 05:34 11/28/21 08:00 Temperature 98 F 97.6 F Pulse Rate 67 72 Respiratory Rate 18 18 Blood Pressure 107/68 111/78 116/80 Pulse Oximetry 100 100 Oxygen Delivery 11/28/21 08:00 Temperature Pulse Rate Respiratory Rate Blood Pressure Pulse Oximetry Oxygen Delivery Room Air Intake/Output Intake/Output: Intake & Output 11/25/21 11/26/21 11/27/21 11/28/21 23:59 23:59 23:59 23:59 Intake Total 2673.2 2760 1342 600 Output Total 3900 2900 Balance -1226.8 -140 1342 600 Meds/Results Medications: Active Medications Generic Name Dose Route Start Last Admin Trade Name Freq PRN Reason Stop Dose Admin Lipase/Protease/Amylase 2 cap 11/27/21 17:00 11/28/21 08:01 Lipase/Amylase/Protease 12,000 Units Cap PO 2 cap TIDWM EDIE Administration Atorvastatin Calcium 10 mg 11/25/21 09:00 11/28/21 08:52 Atorvastatin 10 Mg Tablet PO 10 mg DAILY EDIE Administration Bupropion HCl 150 mg 11/25/21 09:00 11/28/21 08:52 Bupropion Hcl Xl (24 Hr) 150 Mg Tabcr PO 150 mg DAILY EDIE Administration Chlordiazepoxide HCl 25 mg 11/26/21 20:09 11/28/21 09:00 Chlordiazepoxide (*Crx) 25 Mg Capsule PO 25 mg Q4H PRN Administration Alcohol Withdrawal Ciprofloxacin 500 mg 11/27/21 21:00 11/28/21 08:02 Ciprofloxacin 500 Mg Tab PO 500 mg Q12HR EDIE Administration Citalopram Hydrobromide 40 mg 11/25/21 09:00 11/28/21 08:52 Citalopram Hydrobromide 20 Mg Tablet PO 40 mg DAILY EDIE Administration Dextrose 12.5 gm 11/24/21 18:08 Dextrose 50% 25 Gm/50 Ml Syringe IV PUSH PRN PRN
--- NOTE | 2021-11-28 11:41 | PM.DS ---
DS: Admitting Diagnosis Discharge Date 11/28/2021 Admitting Diagnosis altered mental status DS: Summary Hospital Course Reason for hospitalization: Chief Complaint: Altered mental status Narrative: Ms. Lott is a 41-year-old female who was brought to the emergency room via EMS with altered mental status.? Patient has a known history of diabetes mellitus and bipolar disorder.? Per emergency room records the police were sent patient's house for a wellness check and when the police department arrived the patient was found drinking a bottle of vodka and crying uncontrollably.? Patient was able to ride any history at that point in time.? At this point time patient will nod to questions but not give full answers.? Upon evaluation emergency room patient was quite combative and sobbing uncontrollably.? Patient was noted to have an alcohol level 441 and a lactic acidosis.? Patient was also noted to be quite hyperglycemic.? Patient states she has not been taking any of her home medication and does have a known history of diabetes and bipolar disorder.? Patient denies any other complaints and cannot recall why she is in the hospital or what hospital she is at.? Patient states she does have a known history of liver disease and does follow up at [place] for this issue. Hospital Course: on 11/25??patient was somnolent and depression, was crying,? today patient is more calm and interactive,? denies any complaint,? upon arrival patient alcohol level was 400 patient still has risk DT being monitor with CIWA protocol and Librium,? patient with psychiatric illness managed by primary care patient has not seen a psychiatrist, patient was seen by Psychiatry and? started the patient on anti depression and anxiety medication also tape Librium to p.r.n.,? also upon arrival patient had a complaint abdominal pain and diarrhea CT scan showed colitis being treated with Zosyn, discussed with the ID pharmacist will switch her over to Flagyl and Cipro, will consult GI for further recommendation, patient remains clinically stable patient is being treated with thiamine and folic acid, will have PT OT evaluate the patient. patient was seen by GI does not suspect patient has a acute flare of of pancreatitis patient does have a history of necrotizing pancreatitis most likely causing her diarrhea, CT scan of the abdomen shows nonspecific finding, can be discharged and continue pancreatic enzymes with her meals, patient is clinically stable discharge the patient home today. Time Spent with Patient Time attestation: Total time spent providing and/or coordinating discharge services: Exam Narrative: Patient is comfor table, NAD HEENT: eyes are clear and none icteric LUNG S: normal respirat ory effort ABD: no t distended Lower extremities: no ed rosa SKIN: nonjaund iced Neuro: grossl y intact. DS: Data Data Completed and Pending Labs on day of discharge: Labs from last 24 hours 11/28/21 11/28/21 11/28/21 07:39 05:47 05:47 WBC 4.6 RBC 4.51 Hgb 13.3 Hct 41.0 MCV 90.9 MCH 29.5 MCHC 32.4 RDW 13.5 Plt Count 98 L MPV 10.6 H % Immature Plt Fraction 7.1 Sodium 135 L Potassium 3.9 Chloride 102 Carbon Dioxide 30 Anion Gap 3 L BUN 11 Creatinine 0.50 L Estim Creat Clear Calc 104 Estimated GFR > 60 Glucose 223 H POC Capillary Glucose 297 H Calcium 8.8 Magnesium 1.5 L Stl Occult Blood (IFOB) Stool Pancreat Elastase C. difficile (PCR) Ova & Parasites 11/28/21 11/27/21 11/27/21 01:00 20:30 17:50 WBC RBC Hgb Hct MCV MCH MCHC RDW Plt Count MPV % Immature Plt Fraction Sodium Potassium Chloride Carbon Dioxide Anion Gap BUN Creatinine Estim Creat Clear Calc Estimated GFR Glucose POC Capillary Glucose 189 H 319 H Calcium Magnesium Stl Occult Blood (IFOB) Stool Pancreat Elas
[2021-11-28 11:51] LABS: Glucose Point of Care 372 mg/dl (65-105)
[2021-11-28 14:00] VITALS: BP 115/77; PULSE 76; RESP 14; TEMP 36.4; O2SAT 100
[2021-12-07 17:38] LABS: Pancreatic Elastase, Stool <15 mcg/g
== END 2021-11-28 15:00 | disposition home or self-care (01) | DRG 775 ==
LOC: ANHED 09:13 → ANHIMU 16:39 → ANH3MEDSUR 11-26 14:40
PROVIDERS: Internal Medicine Gastroenterology; Nurse Practitioner Adult Health; Admitting Provider Student in an Organized Health Care Education/Training Program; Emergency Provider General Practice; PCP Family Medicine; Visit Provider Family Medicine
DX: F10.929 Alcohol use, unspecified with intoxication, unspecified (principal); F31.9 Bipolar disorder, unspecified; F17.210 Nicotine dependence, cigarettes, uncomplicated; Z86.718 Personal history of other venous thrombosis and embolism; E11.40 Type 2 diabetes mellitus with diabetic neuropathy, unspecified; E78.5 Hyperlipidemia, unspecified; F41.9 Anxiety disorder, unspecified; K52.9 Noninfective gastroenteritis and colitis, unspecified; K86.1 Other chronic pancreatitis; Z20.822 Contact with and (suspected) exposure to COVID-19; Z82.49 Family history of ischemic heart disease and other diseases of the circulatory system; Z83.3 Family history of diabetes mellitus; Z79.899 Other long term (current) drug therapy; Z79.4 Long term (current) use of insulin
CPT/HCPCS: 36415; 36600; 51701; 70450; 71045; 74174; 74176; 80048; 80053; 80307; 81001; 82274; 82375; 82550; 82653; 82805; 82948; 83050; 83605; 83690; 83735; 84484; 84702; 85025; 85027; 85055; 85610; 85730; 87045; 87177; 87209; 87269; 87272; 87427; 87493; 93005; 96361; 96365; 96366; 96367; 96372; 96375; 97161; 97165; 99285; A9270; C9803; G0378; J1650; J1815; J2060; J2543; J3411; J3475; J7030; J7120; Q9967; U0003; U0005

== ENCOUNTER 2021-12-08 13:27 | Emergency (ER) | payer BC, SELFPAY ==
[2021-12-08] VITALS (20 sets, daily range): BP systolic 90–113; BP diastolic 53–76; PULSE 46–105; RESP 12–22; TEMP 36.3; O2SAT 96–100
--- NOTE | 2021-12-08 13:30 | PC.NURSE ---
UNABLE TO OBTAIN CIWA AT THIS TIME. PT IS BELLIGERENT AND NOT WILLING TO ANSWER ANY QUESTIONS.
--- NOTE | 2021-12-08 13:48 | PC.NURSE ---
SPOKE WITH EULA CANDELARIA'S FATHER [phone] WHO SAID THIS IS A CHRONIC PROBLEM AND HE IS BASICALLY FED UP WITH HER. I HAVE CUSTODY OF BOTH HER KIDS AND CANNOT COME UP TO BE WITH HER HE STATED THAT HE WILL ATTEMPT TO GET SOMEONE TO COME UP AND BE WITH HER
[2021-12-08 14:34] LABS: Basophils Percent Auto 0.3 % (0.2-1.2); Eosinophils Absolute Auto 0.1 K/mm3 (0-0.3); Eosinophils Percent Auto 1.3 % (0-4.4); Hematocrit 41.5 % (37.0-47.0); Hemoglobin 13.4 g/dL (12.0-15.0); Immature Granulocyte Absolute 0.02 K/mm3 (0.00-0.031); Immature Granulocyte Percent A 0.3 % (0-0.5); Lymphocytes Absolute Auto 2.85 K/mm3 (0.9-3.2); Lymphocytes Percent Auto 42.5 % (18.3-44.2); Mean Corpuscular HGB Conc 32.3 g/dl (32-36); Mean Corpuscular Hemoglobin 29.2 pg (26-34); Mean Corpuscular Volume 90.4 fl (80-100); Mean Platelet Volume 9.2 fl (7.4-10.4); Monocytes Absolute Auto 0.4 K/mm3 (0.1-0.6); Monocytes Percent Auto 6.3 % (2.6-8.5); Neutrophils Absolute Auto 3.3 K/mm3 (1.3-6.7); Neutrophils Percent Auto 49.3 % (45.5-73.1); Platelet Count Result 202 k/mm3 (150-375); Red Blood Count 4.59 M/mm3 (4.2-5.4); Red Cell Distribution Width 14.2 % (11.5-14.5); White Blood Count 6.7 K/mm3 (4.5-10.0)
[2021-12-08] MEDS: SODIUM CHLORIDE 0.9% IV 1,000 ML 999 ML IV CONT ×2 (14:43→18:07)
[2021-12-08 14:58] LABS: Alanine Aminotransferase 37 U/L (6-35); Albumin Level 4.1 g/dL (3.5-5.1); Alkaline Phosphatase 133 U/L (38-126); Anion Gap 11 mmol/L (8-16); Aspartate Amino Transferase 49 U/L (14-36); Bilirubin,Total 0.2 mg/dL (0.2-1.3); Blood Urea Nitrogen 9 mg/dL (7-17); Carbon Dioxide 26 mmol/L (22-30); Chloride 105 mmol/L (98-107); Estimated Glomerular Filt Rate > 60; Glucose 153 mg/dL (65-110); Potassium 3.9 mmol/L (3.4-5.0); Sodium 142 mmol/L (137-145)
[2021-12-08 15:17] LABS: Ethanol 356 mg/dL (<10)
[2021-12-08 16:45] LABS: Appearance Urine Slightly Cloudy (Clear); Bilirubin Urine Negative (Negative); Blood Urine Negative (Negative); Glucose Urine UA Negative (Negative); Ketones Urine Negative (Negative); Leukocyte Esterase Ur Negative LEU/UL (Negative); Nitrate Urine Negative (Negative); Protein Urine Negative (Negative); Urobilinogen Urine 0.2 mg/dL (<2.0)
[2021-12-08 16:46] LABS: Color Urine Light Yellow (Yellow)
[2021-12-08 16:48] LABS: Add Urine Microscopic? YES
[2021-12-08 16:52] LABS: Bacteria Urine Trace /hpf; RBC Urine 0-2 /hpf (0-2); Squamous Epithelial Cell Urine Many /hpf (Few); WBC Urine 0-3 /hpf
[2021-12-08 17:03] LABS: Amphetamine Screen Urine Negative (Negative); Barbiturate Screen Urine Negative (Negative); Benzodiazepines Screen Urine Negative (Negative); Cannabinoid Screen Urine Negative (Negative); Cocaine Screen Urine Negative (Negative); Methadone Screen Urine Negative (Negative); Opiate Screen Urine Negative (Negative); Phencyclidine Screen Urine Negative (Negative)
--- NOTE | 2021-12-08 18:35 | ED.GENADULT ---
HPI - General Adult General Chief complaint: Alcohol <Ulysses Santiago MD - Last Filed: 12/08/21 18:39> Stated complaint: etoh <Ulysses Santiago MD - Last Filed: 12/08/21 18:39> Time Seen by Provider: 12/08/21 13:32 <Ulysses Santiago MD - Last Filed: 12/08/21 18:39> History of Present Illness HPI narrative: 41-year-old female who presents ER with alcohol intoxication. There is a disturbance at her home in place arrived and patient was shouting and hostile towards them. She had been laying in the front lawn. Patient noted to be an alcoholic. No reports of trauma. Patient was keenly awake and agitated for police, EMS, and also for nurse. On my evaluation patient is sleeping and not willing to interact. With mild noxious stimuli she will wake up and talk. <Ulysses Santiago MD - Last Filed: 12/08/21 18:39> Related Data Home medications: Home Medications Medication Instructions Recorded Confirmed aripiprazole 15 mg tablet 15 mg PO DAILY 06/30/21 11/24/21 atorvastatin 10 mg tablet 10 mg PO DAILY 06/30/21 11/24/21 bupropion HCl 150 mg 24 hr tablet, 150 mg PO DAILY 06/30/21 11/24/21 extended release citalopram 40 mg tablet 40 mg PO DAILY 06/30/21 11/24/21 insulin aspart U-100 100 unit/mL 1 sliding scale dose subcut 07/01/21 11/24/21 subcutaneous solution (Novolog USEASDIRECTD U-100 Insulin aspart) pregabalin 75 mg capsule (Lyrica) 75 mg PO TID 07/01/21 11/24/21 hydroxyzine HCl 25 mg tablet 25 mg PO TID PRN Anxiety 11/24/21 11/24/21 hydroxyzine pamoate 100 mg capsule 100 mg PO HS 11/24/21 11/24/21 insulin glargine 100 unit/mL 35 unit subcut HS 11/24/21 11/24/21 subcutaneous solution (Lantus U-100 Insulin) <Ulysses Santiago MD - Last Filed: 12/08/21 18:39> Allergies/adverse reactions: Allergies Allergy/AdvReac Type Severity Reaction Status Date / Time No Known Allergies Allergy Unknown Verified 11/24/21 17:38 <Ulysses Santiago MD - Last Filed: 12/08/21 18:39> Review of Systems Review of Systems: ROS unobtainable: Yes other (Intoxication) <Ulysses Santiago MD - Last Filed: 12/08/21 18:39> [facility] Past Medical History Medical History: Medical History (Updated 11/27/21 @ 15:35 by Azeem Pike MD) Anxiety Bipolar disorder Depression DVT (deep venous thrombosis) Dyslipidemia Hepatitis IDDM (insulin dependent diabetes mellitus) Necrotizing pancreatitis Neuropathy <Ulysses Santiago MD - Last Filed: 12/08/21 18:39> Surgical History Surgical History: Surgical History History of section 2003, 2010, 2015 History of ERCP 06/2019 History of surgery on arm Left - 2019 History of tubal ligation [place] teeth extracted age 23 <Ulysses Santiago MD - Last Filed: 12/08/21 18:39> Family History Family History: Family History Mother Diabetes mellitus Family history of coronary artery disease Family history of dementia <Ulysses Santiago MD - Last Filed: 12/08/21 18:39> Social History Social History: Social History (Updated 06/30/21 @ 15:01 by Thelma Mensah NP) Social History: The patient has 3 children. She is currently from her and unemployed. She currently smokes half a pack of cigarettes a day. The patient is a recovering alcoholic and has not drink since March of 2021. She does not have a durable power mergers and acquisitions attorney for healthcare. Code status full code Smoking packs per day: 1 Smoking cigarettes per day: 20.0 Years smoked: 20 Smoking pack-years: 20.00 Smoking status: Current every day smoker Tobacco type: cigarettes Second hand tobacco smoke exposure: Yes Additional smoking assessment comments: quit 4 months ago Alcohol intake: current Drinks per week: 35 Substance use: never Substance use type: does not use Gender identity (if verbalized by t
[2021-12-09] VITALS (51 sets, daily range): BP systolic 104–135; BP diastolic 60–93; PULSE 76–102; RESP 11–20; O2SAT 96–100
--- NOTE | 2021-12-09 07:02 | PC.NURSE ---
attempted to call pt father x 3 to secure pt ride. Calls were not answered.
--- NOTE | 2021-12-09 07:21 | PC.NURSE ---
Assumed care of pt, bedside report from Fermín RN, pt is resting on stretcher w/ lights dimmed. Alert to verbal stimuli and on tele monitor w/ VSS. Discussed POC, pt attempting to find a ride home and unable. Per Fermín RN, attempted two phone numbers in records contact and unsuccessful. Discussed finding a ride w/ case manager. Pt was able to ambulate w/out assist, has had food/drink, and is A&Ox4 and per Fermín RN he is comfortable with pt being discharged home.
--- NOTE | 2021-12-09 07:55 | PC.NURSE ---
Called pts father per pt request, states he does not have a way to come get her due to his car is in the shop.
== END 2021-12-09 08:10 | disposition home or self-care (01) ==
PROVIDERS: Emergency Medicine; Emergency Provider Emergency Medicine
DX: F10.229 Alcohol dependence with intoxication, unspecified (principal); E78.5 Hyperlipidemia, unspecified; E11.40 Type 2 diabetes mellitus with diabetic neuropathy, unspecified; Z79.4 Long term (current) use of insulin; F31.9 Bipolar disorder, unspecified; F41.9 Anxiety disorder, unspecified; Z86.718 Personal history of other venous thrombosis and embolism; F17.210 Nicotine dependence, cigarettes, uncomplicated; Y90.8 Blood alcohol level of 240 mg/100 ml or more
CPT/HCPCS: 36415; 80053; 80307; 81001; 81025; 84443; 85025; 96360; 96361; 99283; J7030

== ENCOUNTER 2021-12-10 18:02 | Emergency (ER) | payer BC, SELFPAY ==
[2021-12-10] VITALS (35 sets, daily range): BP systolic 79–106; BP diastolic 48–66; PULSE 80–108; RESP 13–20; TEMP 36.4; O2SAT 89–100
--- NOTE | 2021-12-10 19:05 | PC.NURSE ---
REPORT TO SINA PACHECO
--- NOTE | 2021-12-10 19:07 | ED.GENADULT ---
HPI - General Adult General Chief complaint: Unspecified <Chad Callaway MD - Last Filed: 12/10/21 20:41> Stated complaint: AMB <Chad Callaway MD - Last Filed: 12/10/21 20:41> Time Seen by Provider: 12/10/21 21:07 <Chad Callaway MD - Last Filed: 12/10/21 20:41> Source: EMS <Chad Callaway MD - Last Filed: 12/10/21 20:41> Mode of arrival: EMS <Chad Callaway MD - Last Filed: 12/10/21 20:41> Limitations: intoxication <Chad Callaway MD - Last Filed: 12/10/21 20:41> History of Present Illness HPI narrative: according the EMS the patient just got out of [facility] today in and decided to get completely intoxicated immediately upon being discharged. Patient does state that she has high sugars <Chad Callaway MD - Last Filed: 12/10/21 20:41> Onset (ago): hour(s) (2) <Chad Callaway MD - Last Filed: 12/10/21 20:41> Relieving factors: none <Chad Callaway MD - Last Filed: 12/10/21 20:41> Exacerbating factors: none <Chad Callaway MD - Last Filed: 12/10/21 20:41> Associated symptoms: loss of appetite and weakness <Chad Callaway MD - Last Filed: 12/10/21 20:41> Treatments prior to arrival: none <Chad Callaway MD - Last Filed: 12/10/21 20:41> Related Data Home medications: Home Medications Medication Instructions Recorded Confirmed atorvastatin 10 mg tablet 10 mg PO DAILY 06/30/21 12/11/21 bupropion HCl 150 mg 24 hr tablet, 150 mg PO DAILY 06/30/21 12/11/21 extended release citalopram 40 mg tablet 40 mg PO DAILY 06/30/21 12/11/21 insulin aspart U-100 100 unit/mL 1 sliding scale dose subcut 07/01/21 12/11/21 subcutaneous solution (Novolog USEASDIRECTD U-100 Insulin aspart) hydroxyzine HCl 25 mg tablet 25 mg PO TID PRN Anxiety 11/24/21 12/11/21 insulin glargine 100 unit/mL 35 unit subcut HS 11/24/21 12/11/21 subcutaneous solution (Lantus U-100 Insulin) <Chad Callaway MD - Last Filed: 12/10/21 20:41> Allergies/adverse reactions: Allergies Allergy/AdvReac Type Severity Reaction Status Date / Time No Known Allergies Allergy Unknown Verified 12/11/21 08:43 <Chad Callaway MD - Last Filed: 12/10/21 20:41> Review of Systems Review of Systems: All systems reviewed & are unremarkable except as noted in HPI and below <Chad Callaway MD - Last Filed: 12/10/21 20:41> PMF Past Medical History Medical History: Medical History Anxiety Bipolar disorder Depression DVT (deep venous thrombosis) Dyslipidemia Hepatitis IDDM (insulin dependent diabetes mellitus) Necrotizing pancreatitis Neuropathy <Chad Callaway MD - Last Filed: 12/10/21 20:41> Surgical History Surgical History: Surgical History History of section 2003, 2010, 2015 History of ERCP 06/2019 History of surgery on arm Left - 2019 History of tubal ligation [place] teeth extracted age 23 <Chad Callaway MD - Last Filed: 12/10/21 20:41> Family History Family History: Family History Mother Diabetes mellitus Family history of coronary artery disease Family history of dementia <Chad Callaway MD - Last Filed: 12/10/21 20:41> Social History Social History: Social History Social History: The patient has 3 children. She is currently from her and unemployed. She currently smokes half a pack of cigarettes a day. The patient is a recovering alcoholic and has not drink since March of 2021. She does not have a durable power anatomy professor for healthcare. Code status full code Smoking packs per day: 1 Smoking cigarettes per day: 20.0 Years smoked: 20 Smoking pack-years: 20.00 Smoking status: Current every day smoker Tobacco type: cigarettes Second hand tobacco smoke exposure: Yes Additional
--- NOTE | 2021-12-10 19:22 | PC.NURSE ---
PT IS RESTING ON STRETCHER IN EXAM ROOM, AROUSES TO VERBAL STIMULI. PT TAKEN OFF OF BEDPAN, NO URINE OUTPUT AT THIS TIME. FSBS [address] EDUARDO NOTIFIED. PT HAS COMPLETED 1L NS. MULTIPLE BRUISES TO FACE AND BODY, EXTREMITIES IN VARIOUS STAGES. WILL CONTINUE TO MONITOR. PT IS UNKEMPT.
[2021-12-10] MEDS: SODIUM CHLORIDE 0.9% IV 1,000 ML 999 ML IV CONT (19:42)
[2021-12-10] MEDS: INSULIN HUMAN REGULAR (*BKC) 100 UNITS/ML 6 UNITS IV PUSH (19:44)
--- NOTE | 2021-12-10 19:58 | PC.NURSE ---
pt has urinated on herself. pericare, dry linens and gown provided.
[2021-12-10 20:08] LABS: Hemoglobin A1C 10.3 % (<5.7)
[2021-12-10 20:10] LABS: Alanine Aminotransferase 44 U/L (14-59); Albumin Level 2.9 g/dL (3.4-5.0); Alkaline Phosphatase 139 U/L (46-116); Anion Gap 12 mmol/L (8-16); Bilirubin,Total 0.4 mg/dL (0.00-1.00); Blood Urea Nitrogen 8 mg/dL (7-18); Calcium 8.7 mg/dL (8.5-10.1); Carbon Dioxide 24 mmol/L (21-32); Chloride 99 mmol/L (98-108); Estimated CRCL calculation 94 ml/min; Estimated Glomerular Filt Rate > 60; Glucose 387 mg/dL (70-99); Osmolality Calculated 294 mOsm/kg (285-295); Sodium 135 mmol/L (136-145); Total Protein 6.9 g/dL (6.4-8.2)
[2021-12-10 20:11] LABS: Potassium 6.4 mmol/L (3.5-5.1)
[2021-12-10 20:12] LABS: Magnesium 1.8 mg/dL (1.8-2.4); Phosphorus 2.9 mg/dL (2.6-4.7)
[2021-12-10 20:32] LABS: Aspartate Amino Transferase 95 U/L (15-37)
--- NOTE | 2021-12-10 21:09 | PC.NURSE ---
pt continues to rest on stretcher in exam room. pt is arousable to verbal stimuli. pt rolls and follows directions, however quickly returns to sleep. pt had 1L LR per EMS that completed during ed visit. pt now has her 2nd liter of LR infusing at this time as ordered per DR Bal. nad noted. will continue to monitor.
[2021-12-10] MEDS: LACTATED RINGERS 1,000 ML 999 ML IV CONT (21:12)
[2021-12-10 21:29] LABS: Acetone Negative (Negative)
[2021-12-10 21:30] LABS: Anion Gap 12 mmol/L (8-16); Blood Urea Nitrogen 7 mg/dL (7-18); Calcium 8.3 mg/dL (8.5-10.1); Carbon Dioxide 24 mmol/L (21-32); Chloride 108 mmol/L (98-108); Estimated CRCL calculation 87 ml/min; Estimated Glomerular Filt Rate > 60; Glucose 198 mg/dL (70-99); Osmolality Calculated 302 mOsm/kg (285-295); Potassium 3.5 mmol/L (3.5-5.1); Sodium 144 mmol/L (136-145)
[2021-12-10 21:41] LABS: Lactic Acid Reflex 6.6 mmol/L (0.4-2.0)
[2021-12-10 21:50] LABS: Ethanol 232 mg/dL (0-6)
--- NOTE | 2021-12-10 22:13 | PC.NURSE ---
NO CHANGE IN PT STATUS. VSS PER MONITOR. WILL CONTINUE TO MONITOR.
--- NOTE | 2021-12-10 22:59 | PC.NURSE ---
NO CHANGE IN PT STATUS. WILL CONTINUE TO MONITOR. PT HAS WARM BLANKETS AND RESTING WITHOUT DISTRESS.
[2021-12-11] VITALS (12 sets, daily range): BP systolic 95–136; BP diastolic 42–77; PULSE 89–108; RESP 10–18; O2SAT 95–99
[2021-12-11 00:18] LABS: Reflex Lactic Acid Yes or No Add Lactic
--- NOTE | 2021-12-11 00:36 | PC.NURSE ---
PT IS AWAKE, ALERT, AMBULATORY TO RR WITH STEADY GAIT. PT REQUESTING SOMETHING TO EAT, SANDWICH AND COTTAGE CHEESE WITH DIET SODA PROVIDED. PT IS A & O X4, NO DEFICITS ARE NOTED. WILL CONTINUE TO MONITOR.
[2021-12-11 00:40] LABS: Add Urine Microscopic? YES; Appearance Urine Clear (Clear); Bilirubin Urine Negative (Negative); Blood Urine Negative (Negative); Color Urine Light Yellow (Yellow); Glucose Urine UA 3+ (Negative); Ketones Urine Negative (Negative); Leukocyte Esterase Ur Negative (Negative); Nitrate Urine Negative (Negative); Protein Urine Negative (Negative); Specific Grav Ur <= 1.005 (1.010-1.020); Urobilinogen Urine 0.2 mg/dL (0.2-1.0)
[2021-12-11 00:50] LABS: Bacteria Urine Trace /hpf; RBC Urine 0-2 /hpf (0-2); Squamous Epithelial Cell Urine Few /hpf (Few); WBC Urine 0-3 /hpf (0-3)
[2021-12-11 00:50] LABS: Lactic Acid 3.7 mmol/L (0.4-2.0)
--- NOTE | 2021-12-11 01:45 | PC.NURSE ---
PT CONTINUES TO REST ON STRETCHER, NAD NOTED. WILL CONTINUE TO MONITOR.
--- NOTE | 2021-12-11 05:29 | PC.NURSE ---
NO CHANGE IN PT STATUS, NEW LAB WORK OBTAINED. WILL CONTINUE TO MONITOR.
[2021-12-11 05:38] LABS: Anion Gap 9 mmol/L (8-16); Blood Urea Nitrogen 9 mg/dL (7-18); Carbon Dioxide 26 mmol/L (21-32); Chloride 104 mmol/L (98-108); Estimated CRCL calculation 82 ml/min; Estimated Glomerular Filt Rate > 60; Glucose 302 mg/dL (70-99); Osmolality Calculated 297 mOsm/kg (285-295); Sodium 139 mmol/L (136-145)
[2021-12-11] MEDS: INSULIN HUMAN REGULAR (*BKC) 100 UNITS/ML 10 UNITS SUB-Q (05:47)
[2021-12-11 05:54] LABS: Ethanol 3 mg/dL (0-6)
--- NOTE | 2021-12-11 06:00 | PC.NURSE ---
WATER PROVIDED TO PT, NAD NOTED. PT DENIES ANY OTHER NEEDS OR COMPLAINTS. WILL CONTINUE TO MONITOR.
--- NOTE | 2021-12-11 07:21 | PC.NURSE ---
PT UP AT BEDSIDE CHANGING CLOTHES FOR DISPO. PT DENIES ANY NEEDS OR COMPLAINTS. PT IS REQUESTING TO HAVE [facility] CALLED FOR TRANSPORT, HOWEVER DOES NOT HAVE HER INSURANCE CARD OR INFORMATION.
== END 2021-12-11 07:05 | disposition home or self-care (01) ==
PROVIDERS: Emergency Provider Emergency Medicine
DX: F10.129 Alcohol abuse with intoxication, unspecified (principal); E11.65 Type 2 diabetes mellitus with hyperglycemia
CPT/HCPCS: 36415; 80048; 80053; 80307; 81001; 82010; 82948; 83036; 83605; 83735; 84100; 96361; 96374; 99284; J1815; J7030; J7120

== ENCOUNTER 2021-12-11 07:48 | Emergency (ER) | payer BC, SELFPAY ==
[2021-12-11 08:22] VITALS: BP 132/67; PULSE 81; RESP 18; TEMP 36.7; O2SAT 100
[2021-12-11 08:40] VITALS: BP 132/67; PULSE 94; RESP 16; TEMP 36.8; O2SAT 100
[2021-12-11 08:43] LABS: Basophils Absolute Auto 0.02 K/mm3 (0.00-0.10); Basophils Percent Auto 0.3 % (0.0-1.0); Eosinophils Absolute Auto 0.08 K/mm3 (0.02-0.50); Eosinophils Percent Auto 1.3 % (1.0-6.0); Hematocrit 34.2 % (35.0-49.0); Hemoglobin 11.5 g/dL (12.0-15.0); Immature Granulocyte Absolute 0.01 K/mm3 (0.00-0.00); Immature Granulocyte Percent A 0.2 % (0.0-0.0); Lymphocytes Absolute Auto 2.86 K/mm3 (1.10-4.50); Lymphocytes Percent Auto 45.3 % (18.0-42.0); Mean Corpuscular HGB Conc 33.6 g/dL (32.0-36.0); Mean Corpuscular Hemoglobin 29.9 pg (27.0-31.0); Mean Corpuscular Volume 89.1 fL (78.0-102.0); Mean Platelet Volume 9.6 fl (9.2-11.8); Monocytes Absolute Auto 0.45 K/mm3 (0.10-0.90); Monocytes Percent Auto 7.1 % (2.0-11.0); Neutrophils Absolute Auto 2.9 K/mm3 (1.7-7.2); Neutrophils Percent Auto 45.8 % (50.0-70.0); Platelet Count Result 157 K/mm3 (150-420); Red Blood Count 3.84 M/mm3 (4.20-5.40); Red Cell Distribution Width 13.5 % (11.6-14.4); White Blood Count 6.3 K/mm3 (4.8-10.8)
--- NOTE | 2021-12-11 09:02 | PC.NURSE ---
RN [facility]. he will be in to see patient in about 45 minuites.
[2021-12-11 09:13] LABS: Alanine Aminotransferase 37 U/L (14-59); Alkaline Phosphatase 128 U/L (46-116); Anion Gap 8 mmol/L (8-16); Aspartate Amino Transferase 29 U/L (15-37); Bilirubin,Total 0.4 mg/dL (0.00-1.00); Blood Urea Nitrogen 9 mg/dL (7-18); Calcium 8.4 mg/dL (8.5-10.1); Carbon Dioxide 28 mmol/L (21-32); Chloride 102 mmol/L (98-108); Estimated Glomerular Filt Rate > 60; Osmolality Calculated 281 mOsm/kg (285-295); Potassium 3.4 mmol/L (3.5-5.1); Sodium 138 mmol/L (136-145); Total Protein 6.6 g/dL (6.4-8.2)
[2021-12-11 09:17] LABS: Ethanol < 3 mg/dL (0-6); Glucose 50 mg/dL (70-99)
[2021-12-11 09:19] LABS: Lipase 50 U/L (73-393)
--- NOTE | 2021-12-11 09:20 | PC.NURSE ---
lab called...blood sugar is 50. 4 oz orange juice provided to pt. pt alert and drinking without difficulty. full reg diet breakfast tray ordered from kitchen.
[2021-12-11 09:30] LABS: SARS-CoV-2 RNA PCR Negative (Negative)
--- NOTE | 2021-12-11 09:33 | ED.PSYCH ---
HPI - Psych General Chief Complaint: Psychiatric Symptoms Stated Complaint: SUICIDAL IDEATIONS Source: patient Mode of arrival: ambulatory Limitations: no limitations History of Present Illness HPI Narrative: This is a 41-year-old female that presented last night with intoxication and suicidal ideation subsequent to to that presentation the patient had mental health evaluation which at that time denied suicide or suicidal ideation, the patient was discharged and apparently was not able to find a ride home and was in the hospital ER lobby overnight, and signed in to be evaluated because she was again having suicidal ideation with episodes of depression, she states that her suicidal ideation with a plan of alcoholic intoxication and poisoning as which she states, as well as she states that she could throw herself in front of a bus. complaint: suicidal ideation and feels depressed Onset (ago): day(s) Duration: constant History of same: Yes Relieving factors: none Exacerbating factors: none Context: recent alcohol abuse Associated psychiatric symptoms: depression and suicidal ideation Associated symptoms: denies other symptoms Related Data Home Medications Medication Instructions Recorded Confirmed atorvastatin 10 mg tablet 10 mg PO DAILY 06/30/21 12/11/21 bupropion HCl 150 mg 24 hr tablet, 150 mg PO DAILY 06/30/21 12/11/21 extended release citalopram 40 mg tablet 40 mg PO DAILY 06/30/21 12/11/21 insulin aspart U-100 100 unit/mL 1 sliding scale dose subcut 07/01/21 12/11/21 subcutaneous solution (Novolog USEASDIRECTD U-100 Insulin aspart) hydroxyzine HCl 25 mg tablet 25 mg PO TID PRN Anxiety 11/24/21 12/11/21 insulin glargine 100 unit/mL 35 unit subcut HS 11/24/21 12/11/21 subcutaneous solution (Lantus U-100 Insulin) Allergies Allergy/AdvReac Type Severity Reaction Status Date / Time No Known Allergies Allergy Unknown Verified 12/11/21 08:43 Review of Systems Review of Systems: All systems reviewed & are unremarkable except as noted in HPI and below PMFSH Past Medical History Medical History Anxiety Bipolar disorder Depression DVT (deep venous thrombosis) Dyslipidemia Hepatitis IDDM (insulin dependent diabetes mellitus) Necrotizing pancreatitis Neuropathy Surgical History Surgical History History of section 2003, 2010, 2016 History of ERCP 06/2019 History of surgery on arm Left - 2019 History of tubal ligation [place] teeth extracted age 23 Family History Family History Mother Diabetes mellitus Family history of coronary artery disease Family history of dementia Social History Social History Social History: The patient has 3 children. She is currently from her and unemployed. She currently smokes half a pack of cigarettes a day. The patient is a recovering alcoholic and has not drink since March of 2021. She does not have a durable power junior analyst for healthcare. Code status full code Smoking packs per day: 1 Smoking cigarettes per day: 20.0 Years smoked: 20 Smoking pack-years: 20.00 Smoking status: Current every day smoker Tobacco type: cigarettes Second hand tobacco smoke exposure: Yes Additional smoking assessment comments: quit 4 months ago Alcohol intake: current Drinks per week: 35 Substance use: never Substance use type: does not use Gender identity (if verbalized by the patient): Female Spiritual care concerns: No Exam Const: General: healthy appearing and no acute distress Nutritional Appearance: well nourished Limitations: no limitations HENMT: Head: normal to inspection General nose exam: Normal external nose present Face and sinus: normal facial exam Mouth: Yes Normal oral an
--- NOTE | 2021-12-11 10:00 | PC.NURSE ---
patient provided breakfast tray
--- NOTE | 2021-12-11 10:38 | PC.NURSE ---
maryann from [facility] stepped out,. patient ambulatory down to bathroom.
--- NOTE | 2021-12-11 12:51 | PC.NURSE ---
patient provided lunch tray.
--- NOTE | 2021-12-11 13:21 | PC.NURSE ---
patient ambulatory to bathroom and back to ed room 2.
[2021-12-11] MEDS: PREGABALIN (*CRX) 25 MG CAPSULE PO (15:15)
--- NOTE | 2021-12-11 15:29 | PC.NURSE ---
patient ambulatory to bathroom and back to ed 2.
--- NOTE | 2021-12-11 15:50 | PC.NURSE ---
rn spoke with rn at intake.
[2021-12-11 16:28] LABS: Glucose Point of Care > 450 mg/dl (65-105)
[2021-12-11] MEDS: INSULIN HUMAN REGULAR (*BKC) 100 UNITS/ML 7 UNITS SUB-Q (16:37)
[2021-12-11 17:14] LABS: Glucose Point of Care > 450 mg/dl (65-105)
[2021-12-11 17:50] LABS: Glucose Point of Care 409 mg/dl (65-105)
[2021-12-11] MEDS: INSULIN HUMAN REGULAR (*BKC) 100 UNITS/ML 10 UNITS SUB-Q (18:03)
[2021-12-11 18:43] LABS: Glucose Point of Care 238 mg/dl (65-105)
[2021-12-11 19:08] VITALS: BP 124/63; PULSE 84; RESP 17; TEMP 36.2; O2SAT 100
== END 2021-12-11 19:07 ==
LOC: CHSED 07:51
PROVIDERS: Emergency Provider Emergency Medicine
DX: F32.A Depression, unspecified (principal); R45.851 Suicidal ideations; Z20.822 Contact with and (suspected) exposure to COVID-19; E78.5 Hyperlipidemia, unspecified; E10.9 Type 1 diabetes mellitus without complications; Z79.4 Long term (current) use of insulin; F17.200 Nicotine dependence, unspecified, uncomplicated
CPT/HCPCS: 36415; 80053; 80307; 82948; 83690; 84443; 85025; 99285; A9270; C9803; J1815; U0003; U0005

== ENCOUNTER 2021-12-28 11:39 | Emergency (ER) | payer BC, SELFPAY ==
[2021-12-28] VITALS (10 sets, daily range): BP systolic 100–120; BP diastolic 60–77; PULSE 70–105; RESP 14–20; TEMP 36.6–37.2; O2SAT 90–100
--- NOTE | ~2021-12-28 | XR_ITS ---
XR chest 1V portable DATE: 12/28/2021 11:58 INDICATION: Chest pain TECHNIQUE: Portable upright AP view on 12/28/2021 at 1203 hours COMPARISON: 11/24/2021 portable supine AP view FINDINGS: Plate and numerous screws of proximal left humerus. Mild levoscoliosis of the thoracic spine. Normal heart size. No hilar or mediastinal enlargement. No pulmonary infiltrate or consolidation, ple ural effusion or pulmonary vascular congestion or pneumothorax. IMPRESSION: No active cardiopulmonary disease Reviewed, dictated and finalized at location A.
--- NOTE | 2021-12-28 11:46 | ECG_ITS ---
Measurements Intervals [place] Rate: 113 P: 238 [place]: 245 QRS: 16 QRSD: 104 T: 55 QT: 369 QTc: 507 Interpretive Statements SINUS TACHYCARDIA DELAYED PRECORDIAL R/S TRANSITION BASELINE ARTIFACT- III, AVR, AVL, AVF, V4-V5 ABNORMAL ECG Electronically Signed On 12-28-2021 23:29:34 CDT by Duran Grey D.O.
--- NOTE | 2021-12-28 11:53 | ED.GENADULT ---
HPI - General Adult General Chief complaint: Psychiatric Symptoms Stated complaint: ETOH/SI History of Present Illness HPI narrative: This a 41-year-old female history of chronic alcohol use disorder and major depression presenting to ED for suicidal ideation. Patient says that she wants to kill herself because she misses her mother and all of her children have been taken away. Patient says that she drank a half a gal of vodka last night. She denies any other coingestion is. The patient does not have access to a firearm. She says she has been hospitalized multiple times in the past for suicidal ideations. Patient denies homicidal ideation. She says that she has having auditory hallucinations that she describes as mumbling but she can hear with a se. She denies visual hallucinations. Patient says that she has gone through withdrawal in past when she stops drinking. Patient denies use of any other illicit drugs at this time. Patient has no physical complaints at this time. Related Data Home Medications Medication Instructions Recorded Confirmed atorvastatin 10 mg tablet 10 mg PO DAILY 06/30/21 12/28/21 bupropion HCl 150 mg 24 hr tablet, 150 mg PO DAILY 06/30/21 12/28/21 extended release citalopram 40 mg tablet 40 mg PO DAILY 06/30/21 12/28/21 insulin aspart U-100 100 unit/mL 1 sliding scale dose subcut 07/01/21 12/28/21 subcutaneous solution (Novolog USEASDIRECTD U-100 Insulin aspart) hydroxyzine HCl 25 mg tablet 25 mg PO TID PRN Anxiety 11/24/21 12/28/21 insulin glargine 100 unit/mL 35 unit subcut HS 11/24/21 12/28/21 subcutaneous solution (Lantus U-100 Insulin) Allergies Allergy/AdvReac Type Severity Reaction Status Date / Time No Known Allergies Allergy Unknown Verified 12/11/21 08:43 Review of Systems Constitutional: Constitutional: Denies fever(s) Eyes: Eyes: Reports no additional eye complaints ENT: Denies dizziness Cardiovascular: Cardiovascular: Denies chest pain Respiratory: Respiratory: Denies dyspnea Gastrointestinal: Gastrointestinal: Denies abdominal pain Genitourinary: Genitourinary: Denies abnormal vaginal bleeding Musculoskeletal: Musculoskeletal: Denies back pain Integumentary/Breasts: Skin/Breast: Denies rash Neurologic: Denies confusion Psychiatric: Psychiatric: Reports anxiety, Reports depression and Reports suicidal ideation ( Patient states she wants to drink herself to .) Endocrine: Endocrine: Denies excessive sweating Hematologic/Lymphatic: Hematologic/Lymphatic: Denies easy bleeding Allergic/Immunologic: Allergic/Immunologic: Denies lip swelling PMFSH Past Medical History Medical History Anxiety Bipolar disorder Depression DVT (deep venous thrombosis) Dyslipidemia Hepatitis IDDM (insulin dependent diabetes mellitus) Necrotizing pancreatitis Neuropathy Surgical History Surgical History History of section 2003, 2010, 2015 History of ERCP 06/2019 History of surgery on arm Left - 2019 History of tubal ligation [place] teeth extracted age 23 Family History Family History Mother Diabetes mellitus Family history of coronary artery disease Family history of dementia Social History Social History Social History: The patient has 3 children. She is currently from her and unemployed. She currently smokes half a pack of cigarettes a day. The patient is a recovering alcoholic and has not drink since March of 2021. She does not have a durable power music minister for healthcare. Code status full code Smoking packs per day: 1 Smoking cigarettes per day: 20.0 Years smoked: 20 Smoking pack-years: 20.00 Smoking status: Current every day smoker Tobacco type: cigarettes Second hand tobacco smok
[2021-12-28 12:16] LABS: Glucose Point of Care 350 mg/dl (65-105)
[2021-12-28] MEDS: SODIUM CHLORIDE 0.9% IV 1,000 ML 999 ML IV CONT (12:21)
[2021-12-28 12:22] LABS: Hematocrit 39.1 % (35.0-49.0); Hemoglobin 13.1 g/dL (12.0-15.0); Immature Platelet Fraction Pct 2.8 % (1.0-7.0); Mean Corpuscular HGB Conc 33.5 g/dL (32.0-36.0); Mean Corpuscular Volume 86.7 fL (78.0-102.0); Mean Platelet Volume 9.5 fl (9.2-11.8); Platelet Count Result 144 K/mm3 (150-420); Red Blood Count 4.51 M/mm3 (4.20-5.40); Red Cell Distribution Width 14.1 % (11.6-14.4); White Blood Count 5.8 K/mm3 (4.8-10.8)
[2021-12-28] MEDS: HALOPERIDOL LACTATE 5 MG/ML VIAL IM (12:22)
--- NOTE | 2021-12-28 12:31 | PC.NURSE ---
unable to obtain b/p, patient refused to leave cuff on. Made more agitated
[2021-12-28 12:43] LABS: Alanine Aminotransferase 48 U/L (14-59); Albumin Level 3.7 g/dL (3.4-5.0); Alkaline Phosphatase 189 U/L (46-116); Anion Gap 18 mmol/L (8-16); Aspartate Amino Transferase 67 U/L (15-37); Bilirubin,Total 0.8 mg/dL (0.00-1.00); Blood Urea Nitrogen 6 mg/dL (7-18); Calcium 8.5 mg/dL (8.5-10.1); Carbon Dioxide 24 mmol/L (21-32); Chloride 91 mmol/L (98-108); Estimated CRCL calculation 82 ml/min; Estimated Glomerular Filt Rate > 60; Glucose 360 mg/dL (70-99); Lipase 52 U/L (73-393); Osmolality Calculated 288 mOsm/kg (285-295); Potassium 3.6 mmol/L (3.5-5.1); Salicylate 1.7 mg/dL (2.8-20.0); Sodium 133 mmol/L (136-145); Total Protein 7.7 g/dL (6.4-8.2)
[2021-12-28 12:54] LABS: Add Urine Microscopic? YES; Bilirubin Urine Negative (Negative); Blood Urine 3+ (Negative); Color Urine Light Yellow (Yellow); Glucose Urine UA 3+ (Negative); Ketones Urine 2+ (Negative); Leukocyte Esterase Ur Negative (Negative); Nitrate Urine Negative (Negative); Protein Urine 2+ (Negative); Specific Grav Ur <= 1.005 (1.010-1.020); Urobilinogen Urine 0.2 mg/dL (0.2-1.0)
[2021-12-28 12:56] LABS: Acetaminophen < 2 ug/mL (10-30); Ethanol 386 mg/dL (0-6)
[2021-12-28 12:57] LABS: Pregnancy On Board Control Positive; Urine Pregnancy Test Negative
[2021-12-28 13:00] LABS: Amphetamine Screen Urine Negative (Negative); Barbiturate Screen Urine Negative (Negative); Benzodiazepines Screen Urine Negative (Negative); Cannabinoid Screen Urine Negative (Negative); Cocaine Screen Urine Negative (Negative); Methadone Screen Urine Negative (Negative); Opiate Screen Urine Negative (Negative); Phencyclidine Screen Urine Negative (Negative)
[2021-12-28 13:25] LABS: Appearance Urine Slightly Cloudy (Clear); RBC Urine 21-50 /hpf (0-2); WBC Urine None seen /hpf (0-3)
[2021-12-28 13:26] LABS: Amorphous Sediment Urine Few; Bacteria Urine Trace /hpf; SARS-CoV-2 Ag Negative (Negative); Squamous Epithelial Cell Urine Few /hpf (Few)
[2021-12-28] MEDS: LORazepam INJ (*CRX) 2 MG/ML VIAL IV PUSH (13:54)
--- NOTE | 2021-12-28 14:06 | PC.NURSE ---
1300 while sleeping 02 spo2 low--oxygen applied
--- NOTE | 2021-12-28 16:14 | PC.NURSE ---
needing admitted for seizure withdrawals, ANALYZER SALES/hospitalist refused said she needs to be an ER hold.
[2021-12-28 18:57] LABS: Glucose Point of Care 268 mg/dl (65-105)
--- NOTE | 2021-12-28 20:31 | PC.NURSE ---
Johnathon walked and greeted patient asking her is she could take her vitals. took patients vitals. Patient requested to have a drink and a pillow. Johnathon Gordon asked Dr. Moore if I could give patient a pillow do to being in here for [facility]. Dr. Moore agreed after talking with patient that it was safe for her to have one. Patient is sitting up in bed and drinking on her soda.
[2021-12-28 21:03] LABS: Glucose Point of Care 369 mg/dl (65-105)
[2021-12-28 22:21] LABS: Ethanol 63 mg/dL (0-6)
[2021-12-29] VITALS (7 sets, daily range): BP systolic 109–131; BP diastolic 72–85; PULSE 75–95; RESP 14–20; TEMP 36.6–37; O2SAT 88–98
[2021-12-29 00:09] LABS: Glucose Point of Care 353 mg/dl (65-105)
--- NOTE | 2021-12-29 00:53 | PC.NURSE ---
Lisa from [facility] arrived to ED and is talking to pt.
--- NOTE | 2021-12-29 01:03 | PC.NURSE ---
Lisa from [facility] states that pt will need an impatient bed and will be starting the process.
[2021-12-29 01:29] LABS: Glucose Point of Care 363 mg/dl (65-105)
[2021-12-29] MEDS: INSULIN GLARGINE (*BKC) 100 UNITS/ML 35 UNITS SUB-Q ×2 (02:02→21:10)
--- NOTE | 2021-12-29 02:12 | PC.NURSE ---
Lisa from [facility] states that she has five hospitals with beds, [facility], [facility], [facility], [facility], and [facility]. Lisa states she faxed face sheets and reports to the hospitals and is awaiting acceptance from one of the hospitals.
--- NOTE | 2021-12-29 03:24 | PCDIET ---
RN received call from [facility]. After talking to pt and reviewing chart [facility] states they feel pt is not medically clear and advised to be placed on medical floor until cleared.
[2021-12-29 03:26] LABS: Glucose Point of Care 312 mg/dl (65-105)
--- NOTE | 2021-12-29 03:32 | PC.NURSE ---
Pt states she is having right anterior shoulder pain. Pt is unsure what caused the injury but states she feels like it is broken and describes her pain as a soreness made worse on movement that she rates a 7. PMS is present distal to the shoulder. No deformities or TIC on palpation. Reported ERP. ERP orders 1000mg of Tylenol and goes into room to evaluate pt.
[2021-12-29] MEDS: ACETAMINOPHEN 500 MG TABLET 1000 MG PO (03:38)
--- NOTE | 2021-12-29 03:58 | PC.NURSE ---
Susanna ANDINO from [facility] states she did not receive any of pt's labs or reports. Jalen also states she is not medically clear due to possible seizures from withdraws. Consulted ERP. ERP states pt is medically clear and alcohol withdrawals is not an issue at this time.
--- NOTE | 2021-12-29 04:27 | PC.NURSE ---
RN contacted Destinee from [facility] to update on hospitals. [facility] also explained that ERP has medically cleared pt and can be transferred. [facility] also states if hospitals need updated notes and packet that it can be faxed. Destinee states that beds will not be updated until 0800 this morning and will try to figure out the situation.
[2021-12-29 06:37] LABS: Glucose Point of Care 211 mg/dl (65-105)
[2021-12-29 07:29] LABS: Glucose Point of Care 205 mg/dl (65-105)
--- NOTE | 2021-12-29 07:36 | PC.NURSE ---
call from renuka at [facility], pt has been declined for admission. can not meet her needs.
--- NOTE | 2021-12-29 07:48 | PC.NURSE ---
pt resting quietly per cot, denies pain. continues with suicidal ideation and plan to walk in front of a bus or continue to drink and of alcohol poisoning. breakfast tray ordered for hot meal. awaiting arrival.
--- NOTE | 2021-12-29 08:03 | PC.NURSE ---
chart refaxed to madisyn at [facility] in [facility]. call to [facility] in [place], [place]. awaiting page response.
[2021-12-29] MEDS: THIAMINE HCL INJ 100 MG, FOLIC ACID 1 MG, MULTIVITAMINS-12 INJ 10 ML, MAGNESIUM SULFATE... 1000 MG IV CONT (08:29)
--- NOTE | 2021-12-29 08:45 | PC.NURSE ---
return call from [facility] in [place], per valencia, no adult beds available
[2021-12-29] MEDS: chlordiazePOXIDE (*CRX) 25 MG CAPSULE PO (08:48)
[2021-12-29] MEDS: ATORVASTATIN 10 MG TABLET PO (08:48)
[2021-12-29] MEDS: buPROPion HCL XL (24 HR) 150 MG TABCR PO (08:49)
[2021-12-29] MEDS: CITALOPRAM HYDROBROMIDE 20 MG TABLET 40 MG PO (08:49)
[2021-12-29] MEDS: PREGABALIN (*CRX) 25 MG CAPSULE 75 MG PO ×3 (08:49→16:44)
[2021-12-29 08:50] LABS: Thyroid Stimulating Hormone 1.96 uIU/mL (0.36-3.74)
[2021-12-29 09:46] LABS: Glucose Point of Care 254 mg/dl (65-105)
[2021-12-29] MEDS: INSULIN HUMAN REGULAR (*BKC) 100 UNITS/ML IV PUSH (10:03)
--- NOTE | 2021-12-29 10:24 | PC.NURSE ---
0945 spoke with constantino at [facility], updated chart faxed for reassessment. [phone]
--- NOTE | 2021-12-29 10:50 | PC.NURSE ---
pt sleeping . shower again offered. pt wanting to wait at this time.
[2021-12-29 11:50] LABS: Glucose Point of Care 143 mg/dl (65-105)
--- NOTE | 2021-12-29 12:28 | PC.NURSE ---
constantino from [facility] called, update given regarding medically cleared and pt behavior
--- NOTE | 2021-12-29 13:34 | PC.NURSE ---
spoke with clive patino from [facility], requested chart faxed to [facility] in [place] [phone]
--- NOTE | 2021-12-29 13:35 | PC.NURSE ---
per dr cordoba, pt is medically cleared for transfer. PT HAS HAD NO SEIZURES.
--- NOTE | 2021-12-29 15:44 | PC.NURSE ---
PT SLEEPING, REPOSITIONS SELF IN BED. FAXING CHART TO [facility] PER EVANS ALEXANDER REQUEST. [phone]
--- NOTE | 2021-12-29 16:55 | PC.NURSE ---
PT UP FOR SHOWER, ACCOMPANIED BY THIS RN.
--- NOTE | 2021-12-29 17:05 | PC.NURSE ---
CLEAN LINENS APPLIED TO COT, PAPER SCRUBS PROVIDED FOR PT. BACK TO ROOM, COOPERATIVE WITH ALL CARE. SUPPER TRAY PROVIDED. PT ATE 75% OF LUNCH TRAY PROVIDED.
--- NOTE | 2021-12-29 18:12 | PC.NURSE ---
pt sleeping, call from Yohana from [place], [place] requesting involuntary certificate. call to clive patino from [facility]. awaiting call back
--- NOTE | 2021-12-29 18:25 | PC.NURSE ---
received papers from [facility] facility, involuntary admission and in patient certificate. call placed to [facility] , no response from clive Muller at [facility] regarding petition. pt sleeping
--- NOTE | 2021-12-29 19:13 | PC.NURSE ---
report to [facility] castañeda. awaiting haroon arrival from [facility] for discussion of placement with involuntary status.
--- NOTE | 2021-12-29 19:14 | PC.NURSE ---
pt ate 100% supper provided. watching tv and sleeping. cooperative with all care throughout the day.
--- NOTE | 2021-12-29 20:23 | PC.NURSE ---
Call back from Nila at [facility] wanting paperwork signed and faxed. Call replaced to [facility] vp public relations counselor to find out where we stand on filling out needed paperwork. Awaiting call back.
--- NOTE | 2021-12-29 21:15 | PC.NURSE ---
Carmen from [facility] here to talk c pt and fill out needed paperwork for [facility].
[2021-12-29] MEDS: LORazepam (*CRX) 1 MG TABLET PO (21:39)
--- NOTE | 2021-12-29 23:30 | PC.NURSE ---
Pt has been accepted at [facility] in [place] for inpt. admission. Paperwork has been signed by Carmen and pt. she is aware of POC for transfer. Pt will not be transferred until p 7am per [facility] request. Pt is pleasant and cooperative c care.
[2021-12-30] VITALS: BP 118/71; PULSE 64; RESP 18; O2SAT 99
[2021-12-30 00:59] LABS: Glucose Point of Care 290 mg/dl (65-105)
--- NOTE | 2021-12-30 01:25 | PC.NURSE ---
Pt is sleeping and in close obs. of nurse station, see suicide obs flowsheet.
--- NOTE | 2021-12-30 02:59 | PC.NURSE ---
Pt remains asleep, no changes, RR even and nonlabored, pt under close watch at nurses desk.
--- NOTE | 2021-12-30 04:42 | PC.NURSE ---
Call from [facility] and report given to Shantal Del Castillo. Will secure transfer in AM c EMS service.
--- NOTE | 2021-12-30 06:19 | PC.NURSE ---
ERP notified that pt wishes to take her morning AM meds before leaving on long trip. MD khalil'd givning meds early.
[2021-12-30] MEDS: PREGABALIN (*CRX) 25 MG CAPSULE 75 MG PO (06:35)
[2021-12-30] MEDS: CITALOPRAM HYDROBROMIDE 20 MG TABLET 40 MG PO (06:35)
[2021-12-30] MEDS: ATORVASTATIN 10 MG TABLET PO (06:36)
[2021-12-30] MEDS: buPROPion HCL XL (24 HR) 150 MG TABCR PO (06:36)
--- NOTE | 2021-12-30 06:41 | PC.NURSE ---
Report given to [facility] for pt transfer.
== END 2021-12-30 06:40 ==
PROVIDERS: Emergency Medicine; Emergency Provider Emergency Medicine
DX: F10.10 Alcohol abuse, uncomplicated (principal); R45.851 Suicidal ideations; R73.9 Hyperglycemia, unspecified; Z20.822 Contact with and (suspected) exposure to COVID-19
CPT/HCPCS: 36415; 71045; 80053; 80307; 81001; 81025; 82948; 83690; 84443; 85027; 85055; 87426; 93005; 96361; 96365; 96366; 96372; 96374; 96375; 99285; A9270; C9803; J1630; J1815; J2060; J3411; J3475; J7030

== ENCOUNTER 2022-02-13 14:44 | Emergency (ER) | payer BC, SELFPAY ==
[2022-02-13] VITALS (34 sets, daily range): BP systolic 102–129; BP diastolic 62–90; PULSE 72–109; RESP 18–20; TEMP 36.8; O2SAT 90–100
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
[2022-02-13] MEDS: ONDANSETRON INJ 4 MG/2 ML VIAL IV PUSH (18:03)
[2022-02-13] MEDS: MORPHINE SULFATE (*CRX) 4 MG/ML INJ IV PUSH ×2 (18:03→21:21)
[2022-02-13] MEDS: SODIUM CHLORIDE 0.9% IV 1,000 ML 999 ML IV CONT ×3 (18:04→23:23)
[2022-02-13 18:18] LABS: Basophils Percent Auto 0.3 % (0.2-1.2); Eosinophils Absolute Auto 0.1 K/mm3 (0-0.3); Eosinophils Percent Auto 0.7 % (0-4.4); Hemoglobin 14.5 g/dL (12.0-15.0); Immature Granulocyte Absolute 0.02 K/mm3 (0.00-0.031); Immature Granulocyte Percent A 0.3 % (0-0.5); Lymphocytes Percent Auto 36.8 % (18.3-44.2); Mean Corpuscular HGB Conc 34.5 g/dl (32-36); Mean Corpuscular Hemoglobin 29.1 pg (26-34); Mean Corpuscular Volume 84.3 fl (80-100); Mean Platelet Volume 8.9 fl (7.4-10.4); Monocytes Absolute Auto 0.4 K/mm3 (0.1-0.6); Monocytes Percent Auto 5.9 % (2.6-8.5); Platelet Count Result 178 k/mm3 (150-375); Red Blood Count 4.98 M/mm3 (4.2-5.4); Red Cell Distribution Width 15.6 % (11.5-14.5); White Blood Count 7.1 K/mm3 (4.5-10.0)
[2022-02-13 18:30] LABS: Alanine Aminotransferase 30 U/L (6-35); Albumin Level 4.2 g/dL (3.5-5.1); Alkaline Phosphatase 166 U/L (38-126); Anion Gap 24 mmol/L (8-16); Aspartate Amino Transferase 37 U/L (14-36); Bilirubin,Total 0.5 mg/dL (0.2-1.3); Blood Urea Nitrogen 5 mg/dL (7-17); Calcium 8.2 mg/dL (8.4-10.2); Carbon Dioxide 20 mmol/L (22-30); Chloride 86 mmol/L (98-107); Estimated CRCL calculation 104 ml/min; Estimated Glomerular Filt Rate > 60; Ethanol 140 mg/dL (<10); Glucose 297 mg/dL (65-110); Lipase 62 U/L (23-300); Potassium 3.2 mmol/L (3.4-5.0); Sodium 130 mmol/L (137-145)
[2022-02-13] MEDS: INSULIN HUMAN REGULAR (*BKC) 100 UNITS/ML 6 UNITS IV PUSH (20:07)
--- NOTE | 2022-02-13 20:49 | PC.NURSE ---
This RN had to call pharmacy for morphine.they are going to send up more medication.
[2022-02-13] MEDS: POTASSIUM CHLORIDE INJ 40 MEQ in SODIUM CHLORIDE 0.9% IV 500 ML 130 MEQ IVPB (21:22)
[2022-02-13 23:49] LABS: Glucose Point of Care 108 mg/dl (65-105)
[2022-02-14 00:39] LABS: Appearance Urine Clear (Clear); Bilirubin Urine Negative (Negative); Blood Urine Negative (Negative); Color Urine Yellow (Yellow); Glucose Urine UA 3+ mg/dL (Negative); Ketones Urine 3+ mg/dL (Negative); Leukocyte Esterase Ur Negative LEU/UL (Negative); Nitrate Urine Negative (Negative); Protein Urine 2+ mg/dL (Negative); Urobilinogen Urine 0.2 mg/dL (<2.0)
[2022-02-14 00:50] LABS: Add Urine Microscopic? YES
[2022-02-14 00:51] LABS: RBC Urine 0-2 /hpf (0-2)
[2022-02-14 00:52] LABS: Bacteria Urine Trace /hpf; Squamous Epithelial Cell Urine Moderate /hpf (Few); WBC Urine 0-3 /hpf (0-3)
[2022-02-14 01:01] LABS: Ethanol < 10 mg/dL (<10)
[2022-02-14 01:25] LABS: Anion Gap 17 mmol/L (8-16); Blood Urea Nitrogen 4 mg/dL (7-17); Calcium 7.4 mg/dL (8.4-10.2); Carbon Dioxide 21 mmol/L (22-30); Chloride 92 mmol/L (98-107); Estimated CRCL calculation 104 ml/min; Estimated Glomerular Filt Rate > 60; Glucose 97 mg/dL (65-110); Potassium 3.1 mmol/L (3.4-5.0); Sodium 130 mmol/L (137-145)
[2022-02-14] MEDS: POTASSIUM CHLORIDE 20 MEQ TABLET 40 MEQ PO (01:54)
[2022-02-14 02:06] VITALS: BP 104/78; PULSE 76; RESP 16; O2SAT 98
== END 2022-02-14 02:09 | disposition home or self-care (01) ==
PROVIDERS: Emergency Medicine; Emergency Provider Emergency Medicine
DX: F10.10 Alcohol abuse, uncomplicated (principal); E87.2 Acidosis; E87.6 Hypokalemia; Z87.891 Personal history of nicotine dependence; Z86.718 Personal history of other venous thrombosis and embolism; E78.5 Hyperlipidemia, unspecified; E11.40 Type 2 diabetes mellitus with diabetic neuropathy, unspecified
CPT/HCPCS: 36415; 80048; 80053; 80307; 81001; 82948; 83690; 85025; 96361; 96365; 96366; 96374; 96375; 99284; A9270; J1815; J2270; J2405; J3480; J7030; J7040

== ENCOUNTER 2022-02-24 12:14 | Inpatient (IN) | payer BC, SELFPAY ==
[2022-02-24] VITALS (33 sets, daily range): BP systolic 105–126; BP diastolic 71–92; PULSE 97–122; RESP 12–25; TEMP 36.6–37.1; O2SAT 90–100; BMI 24.7
--- NOTE | ~2022-02-24 | XR_ITS ---
EXAMINATION: XR chest 1V portable INDICATION: Chest pain TECHNIQUE: Portable AP chest at 1301 hours COMPARISON: 12/28/2021 FINDINGS: The lungs are free of acute opacities. No pleural effusion or pneumothorax. The cardiomedia stinal silhouette is normal. Orthopedic hardware is present proximal left humerus. IMPRESSION: 1. No acute cardiopulmonary abnormality. Reviewed, dictated and finalized at location B.
--- NOTE | 2022-02-24 12:38 | ECG_ITS ---
Measurements Intervals [place] Rate: 101 P: 52 UT: 154 QRS: 122 QRSD: 99 T: -5 QT: 332 QTc: 431 Interpretive Statements SINUS TACHYCARDIA RIGHT AXIS DEVIATION DELAYED PRECORDIAL R/S TRANSITION BORDERLINE T WAVE ABNORMALITY- ANTEROLATERAL LEADS BORDERLINE ECG COMPARED TO ECG 12/28/2021 12:05:14 T-WAVE ABNORMALITY NOW PRESENT Electronically Signed On 02-24-2022 13:05:04 CDT by Duran Grey D.O.
--- NOTE | 2022-02-24 12:50 | PC.NURSE ---
rn spoke with poison control, patient is 14 hours out from time of ingestion, but due to ETOH much continue to monitor patient until she is back to baseline.
[2022-02-24 13:07] LABS: Basophils Absolute Auto 0.03 K/mm3 (0.00-0.10); Basophils Percent Auto 0.4 % (0.0-1.0); Eosinophils Absolute Auto 0.02 K/mm3 (0.02-0.50); Eosinophils Percent Auto 0.3 % (1.0-6.0); Hematocrit 41.6 % (35.0-49.0); Hemoglobin 14.6 g/dL (12.0-15.0); Immature Granulocyte Absolute 0.03 K/mm3 (0.00-0.00); Immature Granulocyte Percent A 0.4 % (0.0-0.0); Lymphocytes Absolute Auto 2.44 K/mm3 (1.10-4.50); Mean Corpuscular HGB Conc 35.1 g/dL (32.0-36.0); Mean Corpuscular Hemoglobin 29.6 pg (27.0-31.0); Mean Corpuscular Volume 84.2 fL (78.0-102.0); Mean Platelet Volume 8.8 fl (9.2-11.8); Monocytes Percent Auto 6.8 % (2.0-11.0); Neutrophils Absolute Auto 4.4 K/mm3 (1.7-7.2); Neutrophils Percent Auto 59.1 % (50.0-70.0); Platelet Count Result 149 K/mm3 (150-420); Red Blood Count 4.94 M/mm3 (4.20-5.40); Red Cell Distribution Width 15.7 % (11.6-14.4); White Blood Count 7.4 K/mm3 (4.8-10.8)
[2022-02-24 13:08] LABS: Add Urine Microscopic? YES; Appearance Urine Clear (Clear); Bilirubin Urine Negative (Negative); Blood Urine 3+ (Negative); Color Urine Light Yellow (Yellow); Glucose Urine UA Trace (Negative); Ketones Urine 1+ (Negative); Leukocyte Esterase Ur Negative LEU/UL (Negative); Nitrate Urine Negative (Negative); Protein Urine Trace (Negative); Specific Grav Ur <= 1.005 (1.010-1.020); Urobilinogen Urine 0.2 mg/dL (0.2-1.0); pH Urine 6.5 (5.0-8.0)
[2022-02-24 13:15] LABS: Amphetamine Screen Urine Negative (Negative); Barbiturate Screen Urine Negative (Negative); Benzodiazepines Screen Urine Negative (Negative); Cannabinoid Screen Urine Negative (Negative); Cocaine Screen Urine Negative (Negative); Methadone Screen Urine Negative (Negative); Opiate Screen Urine Negative (Negative); Phencyclidine Screen Urine Negative (Negative)
[2022-02-24 13:21] LABS: Squamous Epithelial Cell Urine Few /hpf (Few); WBC Urine 0-3 /hpf (0-3)
[2022-02-24 13:22] LABS: Bacteria Urine Trace /hpf
[2022-02-24 13:30] LABS: Alanine Aminotransferase 43 U/L (14-59); Albumin Level 3.3 g/dL (3.4-5.0); Alkaline Phosphatase 182 U/L (46-116); Anion Gap 17 mmol/L (8-16); Aspartate Amino Transferase 33 U/L (15-37); Bilirubin,Total 0.6 mg/dL (0.00-1.00); Blood Urea Nitrogen 7 mg/dL (7-18); Calcium 8.3 mg/dL (8.5-10.1); Carbon Dioxide 27 mmol/L (21-32); Chloride 85 mmol/L (98-108); Estimated Glomerular Filt Rate > 60; Glucose 203 mg/dL (70-99); Osmolality Calculated 272 mOsm/kg (285-295); Potassium 2.6 mmol/L (3.5-5.1); Sodium 129 mmol/L (136-145); Thyroid Stimulating Hormone 0.61 uIU/mL (0.36-3.74); Total Protein 7.1 g/dL (6.4-8.2)
[2022-02-24 13:32] LABS: Acetaminophen < 2 ug/mL (10-30); Ethanol 245 mg/dL (0-6)
[2022-02-24 13:33] LABS: Magnesium 1.3 mg/dL (1.8-2.4); Salicylate 1.6 mg/dL (2.8-20.0)
[2022-02-24] MEDS: ONDANSETRON INJ 4 MG/2 ML VIAL IV PUSH (14:01)
[2022-02-24] MEDS: SODIUM CHLORIDE 0.9% IV 1,000 ML 999 ML IV CONT (14:02)
[2022-02-24] MEDS: PANTOPRAZOLE SODIUM IV 40 MG VIAL IV PUSH (14:02)
[2022-02-24] MEDS: THIAMINE HCL INJ 100 MG, FOLIC ACID 1 MG, MULTIVITAMINS-12 INJ 10 ML, MAGNESIUM SULFATE... 150 MG IV CONT (14:51)
[2022-02-24] MEDS: POTASSIUM CHLORIDE 20 MEQ TABLET 60 MEQ PO (14:55)
[2022-02-24] MEDS: MAGNESIUM OXIDE 400 MG TABLET 800 MG PO (14:55)
--- NOTE | 2022-02-24 16:17 | PC.NURSE ---
poison control updated at this time.
[2022-02-24 16:53] LABS: Hemoglobin A1C 10.6 % (<5.7)
--- NOTE | 2022-02-24 17:27 | ED.PSYCH ---
HPI - Psych General Chief Complaint: Psychiatric Symptoms Stated Complaint: MENTAL HEALTH Time Seen by Provider: 02/24/22 12:16 Source: patient and RN notes reviewed Mode of arrival: ambulatory Limitations: no limitations History of Present Illness MD complaint: suicidal ideation Onset (ago): day(s) (1) History of same: Yes Relieving factors: none Exacerbating factors: none Context: recent alcohol abuse, recent drug abuse and not taking psychiatric medications Associated psychiatric symptoms: suicidal ideation Associated symptoms: denies other symptoms Treatments prior to arrival: none If self harm: admits thoughts of self harm Related Data Home Medications Medication Instructions Recorded Confirmed atorvastatin 10 mg tablet 10 mg PO DAILY 06/30/21 02/24/22 citalopram 40 mg tablet 40 mg PO DAILY 06/30/21 02/24/22 insulin aspart U-100 100 unit/mL 1 sliding scale dose subcut 07/01/21 02/24/22 subcutaneous solution (Novolog USEASDIRECTD U-100 Insulin aspart) insulin glargine 100 unit/mL 35 unit subcut HS 11/24/21 02/24/22 subcutaneous solution (Lantus U-100 Insulin) benztropine 1 mg tablet 1 mg PO QHS 02/24/22 02/24/22 gabapentin 300 mg capsule 300 mg PO BID 02/24/22 02/24/22 pregabalin 100 mg capsule 100 mg PO TID 02/24/22 02/24/22 quetiapine 100 mg tablet 100 mg PO HS 02/24/22 02/24/22 quetiapine 50 mg tablet 50 mg PO BID 02/24/22 02/24/22 Allergies Allergy/AdvReac Type Severity Reaction Status Date / Time No Known Allergies Allergy Unknown Verified 02/24/22 12:33 Review of Systems Review of Systems: All systems reviewed & are unremarkable except as noted in HPI and below Constitutional: Constitutional: Reports no additional constitutional complaints Eyes: Eyes: Reports no additional eye complaints ENT: Reports system reviewed and no additional complaints, except as documented Cardiovascular: Cardiovascular: Reports no additional cardiovascular complaints Respiratory: Respiratory: Reports no additional respiratory complaints Gastrointestinal: Gastrointestinal: Reports no additional gastrointestinal complaints Genitourinary: Genitourinary: Reports no additional female genitourinary complaints Musculoskeletal: Musculoskeletal: Reports no additional musculoskeletal complaints Integumentary/Breasts: Skin/Breast: Reports system reviewed and no additional complaints, except as docu Neurologic: Reports system reviewed and no additional complaints, except as documented Psychiatric: Psychiatric: Reports depression and Reports suicidal ideation Endocrine: Endocrine: Reports no additional endocrine complaints Hematologic/Lymphatic: Hematologic/Lymphatic: Reports no additional hematologic/lymphatic complaints Allergic/Immunologic: Allergic/Immunologic: Reports no additional allergic/immunologic complaints PMFSH Past Medical History Medical History Alcohol intoxication Anxiety Bipolar disorder Depression DVT (deep venous thrombosis) Dyslipidemia Hepatitis IDDM (insulin dependent diabetes mellitus) Necrotizing pancreatitis Neuropathy Surgical History Surgical History History of section 2003, 2010, 2015 History of ERCP 06/2019 History of surgery on arm Left - 2019 History of tubal ligation [place] teeth extracted age 23 Family History Family History Mother Diabetes mellitus Family history of coronary artery disease Family history of dementia Social History Social History Social History: The patient has 3 children. She is currently from her and unemployed. She currently smokes half a pack of cigarettes a day. The patient is a recovering alcoholic and has not drink since March of 2021. She does not have a durable power county attorney for h
--- NOTE | 2022-02-24 17:38 | ADMGEN ---
This patient, Mraisa Lott, was admitted to 2nd Floor Room 206-1. Patient/family oriented to hospital policies and general routines including ID bracelet, bed and alarms, visiting hours, pain management, procedures, bathroom and other care routines, personal items, smoking policy, room service/diet, and visiting hours. Belongings brought up in bag from er, placed in locked med room. Pt reports no phone was brought in with her and she has no lozoya in her wallet. Information on how to activate the Rapid Response Team has been discussed. Patient/Family are encouraged to report perceived risks to care and to ask questions if they do not understand what they are told or what they should do.
[2022-02-24] MEDS: ENTER PT HEIGHT XX (17:52)
[2022-02-24 17:54] LABS: Glucose Point of Care 313 mg/dl (65-105)
[2022-02-24] MEDS: POTASSIUM CHLORIDE 20 MEQ TABLET 40 MEQ PO ×2 (17:54→21:22)
[2022-02-24] MEDS: PREGABALIN (*CRX) 100 MG CAPSULE PO (17:54)
[2022-02-24] MEDS: GABAPENTIN 300 MG CAPSULE PO (17:54)
[2022-02-24] MEDS: SODIUM CHLORIDE 0.9% IV 1,000 ML 100 ML IV CONT (17:55)
--- NOTE | 2022-02-24 18:35 | PC.NURSE ---
unable to obtain second iv site at this time, er nurse will come up for assistance at earliest convenience, pt resting in bed iv running
[2022-02-24] MEDS: traMADol HCL (*CRX) 25 MG TABLET PO (19:32)
--- NOTE | 2022-02-24 19:36 | PC.NURSE ---
Completed bedside change of shift report with day shift nurse at bedside. Patient was comfortable, and asked for more soda. Patient was receiving banana bag due to low electrolytes at admission. Her potassium level was 2.6. Patient was given 60 mEq of potassium PO at 1410 with food. A 1000 bag of 20 mEq of K in normal saline was ordered to be given, along with the banana bag. Day shift nurse and charge nurse was unable to get a second IV site. Nurse Practitioner was notified, in order to clarify what was wanted. Nurse Practitioner stated that she wanted the banana bag to continue, and would discontinue the potassium IV, and replace it with Potassium PO.
[2022-02-24 20:34] LABS: Glucose Point of Care 247 mg/dl (65-105)
[2022-02-24] MEDS: traZODone HCL 50 MG TABLET PO (21:22)
[2022-02-24] MEDS: INSULIN GLARGINE (*BKC) 100 UNITS/ML 35 UNITS SUB-Q (21:23)
[2022-02-24] MEDS: LORazepam INJ (*CRX) 2 MG/ML VIAL IV PUSH (21:23)
[2022-02-24] MEDS: BENZTROPINE MESYLATE 1 MG TABLET PO (21:24)
[2022-02-24 21:37] LABS: Alanine Aminotransferase 38 U/L (14-59); Albumin Level 2.7 g/dL (3.4-5.0); Alkaline Phosphatase 187 U/L (46-116); Anion Gap 12 mmol/L (8-16); Aspartate Amino Transferase 50 U/L (15-37); Bilirubin,Total 0.5 mg/dL (0.00-1.00); Blood Urea Nitrogen 7 mg/dL (7-18); Calcium 7.9 mg/dL (8.5-10.1); Carbon Dioxide 24 mmol/L (21-32); Chloride 92 mmol/L (98-108); Estimated CRCL calculation 86 ml/min; Estimated Glomerular Filt Rate > 60; Glucose 256 mg/dL (70-99); Osmolality Calculated 273 mOsm/kg (285-295); Potassium 3.6 mmol/L (3.5-5.1); Sodium 128 mmol/L (136-145); Total Protein 5.8 g/dL (6.4-8.2)
[2022-02-24 21:38] LABS: Magnesium 1.6 mg/dL (1.8-2.4)
[2022-02-25] VITALS: BP 112/75; PULSE 109; PULSE 115; RESP 14; TEMP 36.8; O2SAT 95
[2022-02-25 04:00] VITALS: BP 112/73; PULSE 108; PULSE 117; RESP 14; TEMP 37.1; O2SAT 97
[2022-02-25 04:31] VITALS: BMI 24.7
[2022-02-25 05:31] LABS: Hematocrit 37.1 % (35.0-49.0); Hemoglobin 12.3 g/dL (12.0-15.0); Immature Platelet Fraction Pct 3.2 % (1.0-7.0); Mean Corpuscular HGB Conc 33.2 g/dL (32.0-36.0); Mean Corpuscular Hemoglobin 29.4 pg (27.0-31.0); Mean Corpuscular Volume 88.8 fL (78.0-102.0); Mean Platelet Volume 9.2 fl (9.2-11.8); Platelet Count Result 115 K/mm3 (150-420); Red Blood Count 4.18 M/mm3 (4.20-5.40); Red Cell Distribution Width 16.6 % (11.6-14.4); White Blood Count 5.4 K/mm3 (4.8-10.8)
[2022-02-25 05:45] LABS: Alanine Aminotransferase 39 U/L (14-59); Albumin Level 2.8 g/dL (3.4-5.0); Alkaline Phosphatase 196 U/L (46-116); Anion Gap 7 mmol/L (8-16); Aspartate Amino Transferase 42 U/L (15-37); Bilirubin,Total 0.7 mg/dL (0.00-1.00); Blood Urea Nitrogen 10 mg/dL (7-18); Calcium 8.4 mg/dL (8.5-10.1); Carbon Dioxide 27 mmol/L (21-32); Chloride 99 mmol/L (98-108); Estimated CRCL calculation 66 ml/min; Estimated Glomerular Filt Rate > 60; Glucose 123 mg/dL (70-99); Magnesium 1.7 mg/dL (1.8-2.4); Osmolality Calculated 276 mOsm/kg (285-295); Potassium 4.2 mmol/L (3.5-5.1); Sodium 133 mmol/L (136-145); Total Protein 6.1 g/dL (6.4-8.2)
[2022-02-25 05:47] LABS: Ethanol < 3 mg/dL (0-6)
[2022-02-25 07:41] LABS: Glucose Point of Care 62 mg/dl (65-105)
[2022-02-25 08:00] VITALS: BP 109/66; PULSE 107; RESP 14; TEMP 36.8; O2SAT 95
[2022-02-25] MEDS: SODIUM CHLORIDE 0.9% IV 1,000 ML 100 ML IV CONT (08:01)
--- NOTE | 2022-02-25 08:30 | PC.NURSE ---
Viridiana guillen contacted for evaluation, will send someone out
[2022-02-25] MEDS: GABAPENTIN 300 MG CAPSULE PO ×2 (08:42→16:41)
[2022-02-25] MEDS: PANTOPRAZOLE SODIUM IV 40 MG VIAL IV PUSH (08:42)
[2022-02-25] MEDS: QUEtiapine FUMARATE 25 MG TABLET 50 MG PO ×2 (08:44→16:42)
[2022-02-25] MEDS: MAGNESIUM OXIDE 400 MG TABLET PO (08:44)
[2022-02-25] MEDS: PREGABALIN (*CRX) 100 MG CAPSULE PO ×3 (08:44→16:41)
[2022-02-25] MEDS: POTASSIUM CHLORIDE 20 MEQ TABLET 40 MEQ PO ×2 (08:44→16:42)
[2022-02-25] MEDS: CITALOPRAM HYDROBROMIDE 20 MG TABLET 40 MG PO (08:44)
[2022-02-25] MEDS: ATORVASTATIN 10 MG TABLET PO (08:45)
--- NOTE | 2022-02-25 09:00 | PM.IMHP ---
H&P: HPI History of Present Illness Date/Time: 02/25/22 09:00 Chief Complaint: Suicidael ideation Narrative: This is a 41 year old that presented to the emergency room according to the emergency room after she had took 9 Seroquel and woke up in the morning thinking she would have so she started drinking. Patient states she is suicidal and just wants to . According to patient she will take some pills and drink herself to . Patient was recently from her and relapsed to drinking after some time. She has a past medical history of Bipolar, Diabetes, Anxiety, Hepatitis, Anxiety, DVT, Necrotizing Pancreatitis, dyslipidemia, neuropathy.Mrs. Lott informs me she is still Suicidal and her plan is to drink herself to and take pills. She informs me she had not taken medication appropriately in a while she is willing to voluntarly go to behavioral health for some help Review of Systems Review of Systems: Suicidal All systems reviewed & are unremarkable except as noted in HPI and below PMFSH Past Medical History Medical History Alcohol intoxication Anxiety Bipolar disorder Depression DVT (deep venous thrombosis) Dyslipidemia Hepatitis IDDM (insulin dependent diabetes mellitus) Necrotizing pancreatitis Neuropathy Surgical History Surgical History History of section 2003, 2010, 2015 History of ERCP 06/2019 History of surgery on arm Left - 2019 History of tubal ligation [place] teeth extracted age 23 Family History Family History Mother Diabetes mellitus Family history of coronary artery disease Family history of dementia Social History Social History Social History: The patient has 3 children. She is currently from her and unemployed. She currently smokes half a pack of cigarettes a day. The patient is a recovering alcoholic and has not drink since March of 2021. She does not have a durable power deputy prosecuting attorney for healthcare. Code status full code Smoking packs per day: 1 Smoking cigarettes per day: 20.0 Years smoked: 20 Smoking pack-years: 20.00 Smoking status: Current every day smoker Tobacco type: cigarettes Second hand tobacco smoke exposure: Yes Additional smoking assessment comments: quit 4 months ago Alcohol intake: current Drinks per week: 50 Substance use: former Substance use type: does not use Gender identity (if verbalized by the patient): Female Spiritual care concerns: No Meds Home Medications and Allergies Home Medications Medication Instructions Recorded Confirmed Type atorvastatin 10 mg tablet 10 mg PO DAILY 06/30/21 02/24/22 History citalopram 40 mg tablet 40 mg PO DAILY 06/30/21 02/24/22 History insulin aspart U-100 100 unit/mL 1 sliding scale dose subcut 07/01/21 02/24/22 History subcutaneous solution (Novolog USEASDIRECTD U-100 Insulin aspart) insulin glargine 100 unit/mL 35 unit subcut HS 11/24/21 02/24/22 History subcutaneous solution (Lantus U-100 Insulin) benztropine 1 mg tablet 1 mg PO QHS 02/24/22 02/24/22 History gabapentin 300 mg capsule 300 mg PO BID 02/24/22 02/24/22 History pregabalin 100 mg capsule 100 mg PO TID 02/24/22 02/24/22 History quetiapine 100 mg tablet 100 mg PO HS 02/24/22 02/24/22 History quetiapine 50 mg tablet 50 mg PO BID 02/24/22 02/24/22 History potassium chloride 20 mEq 40 meq PO BID #10 tabs 02/25/22 Rx tablet,extended release (K-Tab) Allergies Allergy/AdvReac Type Severity Reaction Status Date / Time No Known Allergies Allergy Unknown Verified 02/24/22 12:33 Vital Signs Vital Signs - 24 hr 02/24/22 12:27 02/24/22 16:10 02/24/22 13:18 Temperature 98.2 F Pulse Rate 122 H 104 H Pulse Rate [Left B
[2022-02-25] MEDS: LORazepam INJ (*CRX) 2 MG/ML VIAL IV PUSH (09:01)
[2022-02-25 11:39] LABS: Glucose Point of Care 251 mg/dl (65-105)
[2022-02-25 12:00] VITALS: BP 110/65; PULSE 102; PULSE 110; TEMP 36.7; O2SAT 97
--- NOTE | 2022-02-25 12:10 | PC.NURSE ---
Faxed information to [facility] regarding referral per [facility] recommendation
--- NOTE | 2022-02-25 12:51 | PC.NURSE ---
RN spoke with Kim from [facility] regarding pt. Pt spoke with Kim by phone. Lisa ahn called and was updated on pt condition.
[2022-02-25 14:14] LABS: SARS-CoV-2 RNA PCR Negative (Negative)
--- NOTE | 2022-02-25 15:09 | PC.NURSE ---
This RN, Dara, Spoke with Caterina from [facility] regarding pt. The case is closed at this time. This RN spoke with Vikas at 1000 today and Caterina at 1500. Pt case number is [id number]. She is medically safe to transfer at this time. Poison control number is .
[2022-02-25] MEDS: traMADol HCL (*CRX) 25 MG TABLET PO (15:30)
[2022-02-25 15:34] VITALS: BP 108/77; PULSE 106; PULSE 107; PULSE 95; RESP 14; TEMP 36.8; O2SAT 96
[2022-02-25 16:35] LABS: Glucose Point of Care 117 mg/dl (65-105)
--- NOTE | 2022-02-25 16:35 | PC.NURSE ---
gave report to addie neil at [facility], [facility] paged for transfer, pt resting in bed at this time
--- NOTE | 2022-02-25 17:01 | PC.NURSE ---
unable to print d/c packet at this time
--- NOTE | 2022-02-26 08:52 | PM.SD2 ---
Same Day Admit/Disch: HPI History of Present Illness Chief complaint: suicidal Narrative: Marisa Lott is a 41 year old female came to the emergency room as after she had took 9 Seroquel and woke up in the morning thinking she would have so she started drinking. Patient states she is suicidal and just wants to . According to patient she will take some pills and drink herself to . Patient was recently from her and relapsed to drinking after some time. She has a past medical history of Bipolar, Diabetes, Anxiety, Hepatitis, Anxiety, DVT, Necrotizing Pancreatitis, dyslipidemia, neuropathy.Mrs. Lott informs me she is still Suicidal and her plan is to drink herself to and take pills. She informs me she had not taken medication appropriately in a while she is willing to voluntarily go to behavioral health for some help PMFSH Past Medical History Medical History Alcohol intoxication Anxiety Bipolar disorder Depression DVT (deep venous thrombosis) Dyslipidemia Hepatitis IDDM (insulin dependent diabetes mellitus) Necrotizing pancreatitis Neuropathy Surgical History Surgical History History of section 2003, 2010, 2016 History of ERCP 06/2019 History of surgery on arm Left - 2019 History of tubal ligation [place] teeth extracted age 23 Family History Family History Mother Diabetes mellitus Family history of coronary artery disease Family history of dementia Social History Social History Social History: The patient has 3 children. She is currently from her and unemployed. She currently smokes half a pack of cigarettes a day. The patient is a recovering alcoholic and has not drink since March of 2021. She does not have a durable power securities attorney for healthcare. Code status full code Smoking packs per day: 1 Smoking cigarettes per day: 20.0 Years smoked: 20 Smoking pack-years: 20.00 Smoking status: Current every day smoker Tobacco type: cigarettes Second hand tobacco smoke exposure: Yes Additional smoking assessment comments: quit 4 months ago Alcohol intake: current Drinks per week: 50 Substance use: former Substance use type: does not use Gender identity (if verbalized by the patient): Female Spiritual care concerns: No Same Day Admit/Disch: Med Pre-admit Medications Home Medications Medication Instructions Recorded Confirmed Type atorvastatin 10 mg tablet 10 mg PO DAILY 06/30/21 02/24/22 History citalopram 40 mg tablet 40 mg PO DAILY 06/30/21 02/24/22 History insulin aspart U-100 100 unit/mL 1 sliding scale dose subcut 07/01/21 02/24/22 History subcutaneous solution (Novolog USEASDIRECTD U-100 Insulin aspart) insulin glargine 100 unit/mL 35 unit subcut HS 11/24/21 02/24/22 History subcutaneous solution (Lantus U-100 Insulin) benztropine 1 mg tablet 1 mg PO QHS 02/24/22 02/24/22 History gabapentin 300 mg capsule 300 mg PO BID 02/24/22 02/24/22 History pregabalin 100 mg capsule 100 mg PO TID 02/24/22 02/24/22 History quetiapine 100 mg tablet 100 mg PO HS 02/24/22 02/24/22 History quetiapine 50 mg tablet 50 mg PO BID 02/24/22 02/24/22 History potassium chloride 20 mEq 40 meq PO BID #10 tabs 02/25/22 Rx tablet,extended release (K-Tab) Exam Narrative: GENERAL:dishelved, and in no acute distress. HEAD:Normocephalic, atraumatic. EYES: PERRLA ENT: Nares clear, no rhinorrhea or epistaxis. Mucous membranes moist. CHEST: Clear to w intermittens wheezes auscultation. No respiratory distress. HEART: Regular rate and rhythm.. Normal peripheral pulses. ABDOMEN: Soft, nontender, nondistended, normal active bowel sounds. EXTREMITIES: Normal range of motion. No edema. SKI
[2022-04-09 08:17] LABS: Glucose Point of Care 212 mg/dl (65-105)
== END 2022-02-25 17:00 | disposition other institution (70) | DRG 756 ==
LOC: CHSED 12:55 → CHS2ND 16:34
PROVIDERS: Nurse Practitioner; Admitting Provider Internal Medicine; Emergency Provider Emergency Medicine; Visit Provider Internal Medicine
DX: R45.851 Suicidal ideations (principal); E11.40 Type 2 diabetes mellitus with diabetic neuropathy, unspecified; E87.6 Hypokalemia; E86.0 Dehydration; F10.129 Alcohol abuse with intoxication, unspecified; E78.5 Hyperlipidemia, unspecified; F17.210 Nicotine dependence, cigarettes, uncomplicated; F41.9 Anxiety disorder, unspecified; F31.9 Bipolar disorder, unspecified; Z20.822 Contact with and (suspected) exposure to COVID-19; Z79.4 Long term (current) use of insulin; Z86.718 Personal history of other venous thrombosis and embolism
CPT/HCPCS: 36415; 71045; 80053; 80307; 81001; 82948; 83036; 83735; 84443; 85025; 85027; 85055; 93005; 96361; 96365; 96366; 96375; 99285; A9270; C9113; C9803; J1815; J2060; J2405; J3411; J3475; J7030; U0003; U0005

== ENCOUNTER 2022-04-16 11:37 | Emergency (ER) | payer BC, SELFPAY ==
--- NOTE | ~2022-04-16 | XR_ITS ---
EXAMINATION: XR chest 1V portable 04/16/2022 12:18 INDICATION: Shortness of breath PROCEDURE: AP portable chest COMPARISON: Comparison to multiple prior studies sequentially, with oldest reviewed study dated 05/15. FINDINGS: The lungs are clear. The cardiomediastinal silhouette is within normal limits. There are no pleural effusions. There is no pneumothorax suspected. IMPRESSION: 1: NO ACUTE CARDIOPULMONARY DISEASE. Reviewed, dictated and finalized at location A.
[2022-04-16] MEDS: SODIUM CHLORIDE 0.9% IV 1,000 ML 999 ML IV CONT (11:40)
[2022-04-16] MEDS: NALOXONE HCL INJ 2 MG/2 ML AMP (11:40)
--- NOTE | 2022-04-16 11:46 | ECG_ITS ---
Measurements Intervals [place] Rate: 84 P: 62 NV: 162 QRS: 16 QRSD: 95 T: 56 QT: 401 QTc: 476 Interpretive Statements SINUS RHYTHM BORDERLINE R WAVE PROGRESSION, ANTERIOR LEADS BORDERLINE ECG COMPARED TO ECG 02/24/2022 13:00:03 SINUS RHYTHM NOW PRESENT Electronically Signed On 04-16-2022 12:53:34 CDT by Duran Grey D.O.
[2022-04-16 11:51] VITALS: BP 113/66; PULSE 96; RESP 16; TEMP 36.4; O2SAT 98
[2022-04-16 12:15] LABS: Basophils Absolute Auto 0.02 K/mm3 (0.00-0.10); Basophils Percent Auto 0.3 % (0.0-1.0); Eosinophils Absolute Auto 0.06 K/mm3 (0.02-0.50); Eosinophils Percent Auto 0.9 % (1.0-6.0); Hematocrit 36.2 % (35.0-49.0); Hemoglobin 11.7 g/dL (12.0-15.0); Immature Granulocyte Absolute 0.02 K/mm3 (0.00-0.00); Immature Granulocyte Percent A 0.3 % (0.0-0.0); Lymphocytes Absolute Auto 1.48 K/mm3 (1.10-4.50); Lymphocytes Percent Auto 21.5 % (18.0-42.0); Mean Corpuscular HGB Conc 32.3 g/dL (32.0-36.0); Mean Corpuscular Volume 86.6 fL (78.0-102.0); Mean Platelet Volume 10.7 fl (9.2-11.8); Monocytes Absolute Auto 0.62 K/mm3 (0.10-0.90); Neutrophils Absolute Auto 4.7 K/mm3 (1.7-7.2); Platelet Count Result 131 K/mm3 (150-420); Red Blood Count 4.18 M/mm3 (4.20-5.40); Red Cell Distribution Width 15.1 % (11.6-14.4); White Blood Count 6.9 K/mm3 (4.8-10.8)
[2022-04-16 12:31] LABS: Alanine Aminotransferase 24 U/L (14-59); Alkaline Phosphatase 93 U/L (46-116); Anion Gap 15 mmol/L (8-16); Aspartate Amino Transferase 16 U/L (15-37); Bilirubin,Total 0.2 mg/dL (0.00-1.00); Blood Urea Nitrogen 12 mg/dL (7-18); Calcium 8.1 mg/dL (8.5-10.1); Carbon Dioxide 20 mmol/L (21-32); Chloride 101 mmol/L (98-108); Estimated Glomerular Filt Rate > 60; Glucose 272 mg/dL (70-99); Magnesium 1.4 mg/dL (1.8-2.4); Osmolality Calculated 291 mOsm/kg (285-295); Potassium 3.4 mmol/L (3.5-5.1); Sodium 136 mmol/L (136-145); Total Protein 7.2 g/dL (6.4-8.2)
[2022-04-16 12:32] LABS: CRP 7.2 mg/dL (0.0-0.9); Ethanol 223 mg/dL (0-6)
[2022-04-16 12:36] LABS: Lactic Acid Reflex 4.2 mmol/L (0.4-2.0)
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
[2022-04-16 12:50] VITALS: BP 113/66; PULSE 96; RESP 16; TEMP 36.4; O2SAT 98
[2022-04-16 12:53] LABS: SARS-CoV-2 RNA PCR Positive (Negative)
[2022-04-16 15:12] LABS: Reflex Lactic Acid Yes or No Add Lactic
== END 2022-04-16 12:51 | disposition home or self-care (01) ==
PROVIDERS: Emergency Provider Emergency Medicine
DX: F10.20 Alcohol dependence, uncomplicated (principal); U07.1 COVID-19
CPT/HCPCS: 36415; 71045; 80053; 80307; 83605; 83735; 84100; 85025; 86140; 87040; 93005; 96361; 96374; 99284; J2310; J7030; U0003; U0005

== ENCOUNTER 2022-12-18 14:58 | Emergency (ER) | payer BC, SELFPAY ==
[2022-12-18] VITALS (7 sets, daily range): BP systolic 92–107; BP diastolic 53–67; PULSE 86–97; RESP 15–17; TEMP 36.8; O2SAT 97–100
--- NOTE | 2022-12-18 15:22 | ED.GENADULT ---
HPI - General Adult General Chief complaint: Alcohol Stated complaint: high blood sugar Time Seen by Provider: 12/18/22 15:07 History of Present Illness HPI narrative: 42-year-old female presents emergency department for evaluation after being found unresponsive on a park bench. Patient is an alcoholic and is a noncompliant diabetic. Patient reports she does have history of pancreatitis secondary to alcohol abuse. Patient reports she has previously gone to [employer]. Patient states that she has been drinking heavily for the last few weeks. Patient stated that she drank 1/5 of vodka today. Patient does report prior history of alcohol withdrawal seizures. Related Data Home Medications Medication Instructions Recorded Confirmed atorvastatin 10 mg tablet 10 mg PO DAILY 06/30/21 04/16/22 citalopram 40 mg tablet 40 mg PO DAILY 06/30/21 04/16/22 insulin aspart U-100 100 unit/mL 1 sliding scale dose subcut 07/01/21 04/16/22 subcutaneous solution (Novolog USEASDIRECTD U-100 Insulin aspart) insulin glargine 100 unit/mL 35 unit subcut HS 11/24/21 04/16/22 subcutaneous solution (Lantus U-100 Insulin) benztropine 1 mg tablet 1 mg PO QHS 02/24/22 04/16/22 gabapentin 300 mg capsule 300 mg PO BID 02/24/22 04/16/22 pregabalin 100 mg capsule 100 mg PO TID 02/24/22 04/16/22 quetiapine 100 mg tablet 100 mg PO HS 02/24/22 04/16/22 quetiapine 50 mg tablet 50 mg PO BID 02/24/22 04/16/22 Allergies Allergy/AdvReac Type Severity Reaction Status Date / Time No Known Allergies Allergy Unknown Verified 12/18/22 15:34 Review of Systems Review of Systems: All systems reviewed & are unremarkable except as noted in HPI and below PMFSH Past Medical History Medical History Alcohol intoxication Anxiety Bipolar disorder Depression DVT (deep venous thrombosis) Dyslipidemia Hepatitis IDDM (insulin dependent diabetes mellitus) Necrotizing pancreatitis Neuropathy Surgical History Surgical History History of section 2003, 2010, 2016 History of ERCP 06/2019 History of surgery on arm Left - 2019 History of tubal ligation [place] teeth extracted age 23 Family History Family History Mother Diabetes mellitus Family history of coronary artery disease Family history of dementia Social History Social History Social History: The patient has 3 children. She is currently from her and unemployed. She currently smokes half a pack of cigarettes a day. The patient is a recovering alcoholic and has not drink since March of 2021. She does not have a durable power rn icu for healthcare. Code status full code Smoking packs per day: 1 Smoking cigarettes per day: 20.0 Years smoked: 20 Smoking pack-years: 20.00 Smoking status: Current every day smoker Tobacco type: cigarettes Second hand tobacco smoke exposure: Yes Additional smoking assessment comments: quit 4 months ago Alcohol intake: current Drinks per week: 50 Substance use: former Substance use type: does not use Gender identity (if verbalized by the patient): Female Spiritual care concerns: No Exam Narrative: APPEARANCE: Well appearing, no pain, no distress, well-nourished. HEAD: normocephalic, atraumatic. EYES: PERRLA/EOMI, conjunctivae clear. NOSE: Normal no drainage NECK: Supple. No adenopathy, no masses. RESPIRATORY: Airway patent, respirations nonlabored. Clear to auscultation bilaterally, no rales, rhonchi, wheezing. CARDIOVASCULAR: Regular rate and rhythm without murmurs rubs or gallops. ABDOMINAL: Soft, nontender, nondistended, normal bowel sounds MUSCULOSKELETAL: Moves all extremities. Strength/ROM intact, No edema, No calf tenderness. NEURO: Alert. Cranial nerves II through XII intact.
[2022-12-18 15:24] LABS: Glucose Point of Care > 500 mg/dl (65-105)
[2022-12-18 15:33] LABS: Appearance Urine Clear (Clear); Bilirubin Urine Negative (Negative); Blood Urine Negative (Negative); Color Urine Yellow (Yellow); Glucose Urine UA 3+ mg/dL (Negative); Ketones Urine Negative (Negative); Leukocyte Esterase Ur Negative LEU/UL (Negative); Nitrate Urine Negative (Negative); Protein Urine Negative (Negative); Urobilinogen Urine 0.2 mg/dL (<2.0); pH Urine 5.5 (5.0-9.0)
[2022-12-18] MEDS: SODIUM CHLORIDE 0.9% IV 1,000 ML 999 ML IV CONT ×2 (15:36→15:37)
[2022-12-18 15:43] LABS: Ethanol 277 mg/dL (<10)
[2022-12-18 15:46] LABS: Basophils Percent Auto 0.5 % (0.2-1.2); Eosinophils Absolute Auto 0.1 K/mm3 (0-0.3); Eosinophils Percent Auto 2.5 % (0-4.4); Hematocrit 33.8 % (37.0-47.0); Hemoglobin 10.7 g/dL (12.0-15.0); Immature Granulocyte Absolute 0.02 K/mm3 (0.00-0.031); Immature Granulocyte Percent A 0.4 % (0-0.5); Lymphocytes Percent Auto 32.7 % (18.3-44.2); Mean Corpuscular HGB Conc 31.7 g/dl (32-36); Mean Corpuscular Hemoglobin 25.2 pg (26-34); Mean Corpuscular Volume 79.5 fl (80-100); Mean Platelet Volume 10.5 fl (7.4-10.4); Monocytes Absolute Auto 0.3 K/mm3 (0.1-0.6); Monocytes Percent Auto 5.8 % (2.6-8.5); Neutrophils Absolute Auto 3.2 K/mm3 (1.3-6.7); Neutrophils Percent Auto 58.1 % (45.5-73.1); Platelet Count Result 172 k/mm3 (150-375); Red Blood Count 4.25 M/mm3 (4.2-5.4); Red Cell Distribution Width 19.5 % (11.5-14.5); White Blood Count 5.5 K/mm3 (4.5-10.0)
[2022-12-18 15:47] LABS: Alanine Aminotransferase 37 U/L (6-35); Albumin Level 3.8 g/dL (3.5-5.1); Alkaline Phosphatase 92 U/L (38-126); Anion Gap 12 mmol/L (8-16); Aspartate Amino Transferase 37 U/L (14-36); Bilirubin,Total 0.2 mg/dL (0.2-1.3); Blood Urea Nitrogen 10 mg/dL (7-17); Calcium 8.6 mg/dL (8.4-10.2); Carbon Dioxide 21 mmol/L (22-30); Chloride 103 mmol/L (98-107); Estimated Glomerular Filt Rate > 60; Glucose 608 mg/dL (65-110); Magnesium 1.6 mg/dL (1.6-2.3); Phosphorus 4.3 mg/dL (2.5-4.5); Potassium 3.8 mmol/L (3.4-5.0); Sodium 136 mmol/L (137-145)
[2022-12-18 15:51] LABS: Add Urine Microscopic? NO
[2022-12-18] MEDS: INSULIN HUMAN REGULAR (*BKC) 100 UNITS/ML 7 UNITS IV PUSH (15:55)
--- NOTE | 2022-12-18 16:23 | PC.NURSE ---
Spoke with pts significant other and updated him on pts condition.
[2022-12-18 16:45] LABS: Glucose Point of Care 289 mg/dl (65-105)
--- NOTE | 2022-12-18 16:54 | PC.NURSE ---
Pt eloped ER to go outside and smoke. Pt was followed out by this RN and both IVs were removed. Pt came back inside after finishing cigarette. notified
--- NOTE | 2022-12-18 17:14 | PC.NURSE ---
Attempted to call Billy 2x and Babar 1x for a ride home for pt.
--- NOTE | 2022-12-18 17:38 | PC.NURSE ---
Attempted to call all 3 numbers on pts chart for a ride home with no answer.
--- NOTE | 2022-12-18 18:09 | PC.NURSE ---
Pt has eloped 2x with sitter at bedside.
--- NOTE | 2022-12-18 18:27 | PC.NURSE ---
Pt eloped to smoke, pt oriented x4 with stable gait, states she has ride on the way and will not leave until they arrive.
--- NOTE | 2022-12-18 18:51 | PC.NURSE ---
1850 pt left with father under his supervision.
== END 2022-12-18 18:40 | disposition home or self-care (01) ==
PROVIDERS: Emergency Provider Emergency Medicine
DX: F10.20 Alcohol dependence, uncomplicated (principal); E78.5 Hyperlipidemia, unspecified; E11.40 Type 2 diabetes mellitus with diabetic neuropathy, unspecified; F41.9 Anxiety disorder, unspecified; F31.9 Bipolar disorder, unspecified; F17.210 Nicotine dependence, cigarettes, uncomplicated; Y90.7 Blood alcohol level of 200-239 mg/100 ml; Z86.718 Personal history of other venous thrombosis and embolism; Z79.4 Long term (current) use of insulin; Z91.199 Patient's noncompliance with other medical treatment and regimen due to unspecified reason
CPT/HCPCS: 36415; 80053; 80307; 81003; 81025; 82010; 82948; 83735; 84100; 85025; 96361; 96374; 99284; J1815; J7030

== ENCOUNTER 2023-03-03 12:58 | Emergency (ER) | payer BC, SELFPAY ==
[2023-03-03] VITALS (7 sets, daily range): BP systolic 109–131; BP diastolic 74–94; PULSE 81–90; RESP 16–20; TEMP 36.8; O2SAT 98–100
--- NOTE | ~2023-03-03 | CT_ITS ---
EXAMINATION: CT brain wo con DATE: 03/03/2023 14:07 INDICATION: Head trauma. Intoxication. TECHNIQUE: Computed tomography (CT) of the head was performed without intravenous contrast. Sagittal and coronal reconstructions were performed. The mA was adjusted according to patient size. Iterative reconstruction technique was employed. The dose-length product was 605.33 mGy-cm. COMPARISON: head CT dated 11/24/2021 FINDINGS: Small right parietal scalp hematoma. Similar appearing and likely scarring at the left parietal scalp . No calvarial fracture. No acute intracranial hemorrhage, acute infarction or abnormal extra axial f luid collection. Ventricles are normal and symmetric. No mass/mass effect. Or some mucosal thickening in the paranasal sinuses. Partially visualized prominent erosion along the anterior left maxilla lik roslyn related to dental disease. The orbits and mastoid air cells are normal. IMPRESSION: 1. No calvarial fracture or acute intracranial process. Reviewed, dictated and finalized at location A.
--- NOTE | ~2023-03-03 | CT_ITS ---
EXAMINATION: 1. CT facial & cervical spine wo DATE: 03/03/2023 14:07 INDICATION: Facial trauma TECHNIQUE: 1. Computed tomography (CT) of the maxillofacial region and of the cervical spine were performed with out intravenous contrast. Sagittal and coronal reconstructions of both regions were obtained. Automat ed exposure control and iterative reconstruction technique were employed. The dose-length product was 473.49 mGy-cm. COMPARISON: Cervical spine CT dated 01/16/2020 FINDINGS: Maxillofacial CT: No maxillofacial fractures. Specifically the nasal bones, orourke of the orbits and paranasal sinuses, zygomatic arches and mandible remain intact. There is extensive dental disease with multiple absent t eeth and numerous dental caries. There is a large periapical erosion associated with the left maxilla ry central and lateral incisors. There multiple additional smaller periapical erosions along the herman ible and maxilla. The orbits are normal. There is a soft tissue contusion along the superior and late ral margins of the left orbit. Cervical spine CT: 9 degrees cervicothoracic dextrocurvature. Sagittal alignment is normal. Cervical vertebral body heig hts are normal. Age-indeterminate mild anterior vertebral body height loss at T1 which is new since without evident sharply angulated cortex or linear lucency or sclerosis to suggest acute fracture . Likely subacute nondisplaced fractures with some early callus formation involving the right transve rse processes of T1 and the medial aspect of the posterior right first and second ribs. Unchanged mil d disc height loss at C4-C5 with associated disc bulge resulting in mild central canal stenosis at th is level. Minimal to mild multilevel cervical facet and uncovertebral osteoarthritis. No neural coreen inal stenosis. Cervical soft tissues are unremarkable. Visualized upper lungs are clear with no evide nt pneumothorax. IMPRESSION: 1. No acute maxillofacial fracture. 2. Mild cervical spondylosis without acute cervical osseous abnormality. 3. Subacute appearing nondisplaced fractures of the posterior right first and second ribs and right t ransverse process of T1. Correlate for history of additional recent trauma. 4. Age-indeterminate mild T1 compression fracture which is new since 2019. 5. Extensive prominent dental disease including a large periapical erosion at the anterior left axill a. Consider dental referral. Reviewed, dictated and finalized at location A. IMPRESSION: 1. No acute maxillofacial fracture. 2. Mild cervical spondylosis without acute cervical osseous abnormality. 3. Subacute appearing nondisplaced fractures of the posterior right first and s econd ribs and right transverse process of T1. Correlate for history of additio nal recent trauma. 4. Age-indeterminate mild T1 compression fracture which is new since 2019. 5. Extensive prominent dental disease including a large periapical erosion at t he anterior left axilla. Consider dental referral.
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
[2023-03-03 13:32] LABS: Glucose Point of Care 403 mg/dl (65-105)
[2023-03-03] MEDS: LORazepam INJ (*CRX) 2 MG/ML VIAL 1 MG IV PUSH (13:34)
[2023-03-03] MEDS: LACTATED RINGERS 1,000 ML 999 ML IV CONT ×2 (13:36→14:35)
[2023-03-03 13:39] LABS: Basophils Percent Auto 0.4 % (0.2-1.2); Eosinophils Absolute Auto 0.1 K/mm3 (0-0.3); Eosinophils Percent Auto 1.8 % (0-4.4); Hematocrit 42.3 % (37.0-47.0); Hemoglobin 12.9 g/dL (12.0-15.0); Immature Granulocyte Absolute 0.01 K/mm3 (0.00-0.031); Immature Granulocyte Percent A 0.2 % (0-0.5); Lymphocytes Absolute Auto 1.93 K/mm3 (0.9-3.2); Lymphocytes Percent Auto 39.5 % (18.3-44.2); Mean Corpuscular HGB Conc 30.5 g/dl (32-36); Mean Corpuscular Hemoglobin 24.3 pg (26-34); Mean Corpuscular Volume 79.8 fl (80-100); Monocytes Absolute Auto 0.3 K/mm3 (0.1-0.6); Monocytes Percent Auto 6.7 % (2.6-8.5); Neutrophils Absolute Auto 2.5 K/mm3 (1.3-6.7); Neutrophils Percent Auto 51.4 % (45.5-73.1); Platelet Count Result 181 k/mm3 (150-375); Red Cell Distribution Width 18.7 % (11.5-14.5); White Blood Count 4.9 K/mm3 (4.5-10.0)
[2023-03-03 13:39] LABS: Fractional Inspired Oxygen 21 %; pH VBG 7.321 (7.300-7.400)
[2023-03-03 13:45] LABS: Appearance Urine Cloudy (Clear); Bacteria Urine 1+ /hpf; Bilirubin Urine Negative (Negative); Blood Urine Negative (Negative); Color Urine Yellow (Yellow); Glucose Urine UA 3+ mg/dL (Negative); Ketones Urine Negative (Negative); Leukocyte Esterase Ur Negative LEU/UL (Negative); Nitrate Urine Negative (Negative); Non Pathogenic Casts 0-2; Protein Urine Trace mg/dL (Negative); RBC Urine 0-2 /hpf (0-2); Specific Grav Ur 1.024 (1.001-1.035); Squamous Epithelial Cell Urine Many /hpf (Few); Urobilinogen Urine 0.2 mg/dL (<2.0); WBC Urine 0-5 /hpf
[2023-03-03 13:47] LABS: Add Urine Microscopic? YES
[2023-03-03 13:53] LABS: Alanine Aminotransferase 35 U/L (6-35); Albumin Level 4.6 g/dL (3.5-5.1); Alkaline Phosphatase 145 U/L (38-126); Anion Gap 13 mmol/L (8-16); Aspartate Amino Transferase 48 U/L (14-36); Bilirubin,Total 0.4 mg/dL (0.2-1.3); Blood Urea Nitrogen 5 mg/dL (7-17); Calcium 8.5 mg/dL (8.4-10.2); Carbon Dioxide 26 mmol/L (22-30); Chloride 103 mmol/L (98-107); Estimated CRCL calculation 115 ml/min; Estimated Glomerular Filt Rate > 60; Glucose 411 mg/dL (65-110); Magnesium 1.7 mg/dL (1.6-2.3); Phosphorus 2.9 mg/dL (2.5-4.5); Potassium 3.7 mmol/L (3.4-5.0); Sodium 142 mmol/L (137-145)
[2023-03-03 14:03] LABS: Ethanol 405 mg/dL (<10)
[2023-03-03] MEDS: KCL 20 MEQ/SW 100 ML 100 ML 50 MEQ IVPB (14:36)
[2023-03-03 17:00] LABS: Glucose Point of Care 240 mg/dl (65-105)
--- NOTE | 2023-03-03 17:29 | PC.NURSE ---
Pt dad called to come and pickling solution maker patient. He states he will be on his way
== END 2023-03-03 18:22 | disposition home or self-care (01) ==
PROVIDERS: Emergency Medicine; Emergency Provider Student in an Organized Health Care Education/Training Program
DX: E11.65 Type 2 diabetes mellitus with hyperglycemia (principal); S09.93XA Unspecified injury of face, initial encounter; F10.229 Alcohol dependence with intoxication, unspecified; F41.9 Anxiety disorder, unspecified; F31.9 Bipolar disorder, unspecified; Z86.718 Personal history of other venous thrombosis and embolism; E78.5 Hyperlipidemia, unspecified; E11.40 Type 2 diabetes mellitus with diabetic neuropathy, unspecified; Z79.4 Long term (current) use of insulin; F17.210 Nicotine dependence, cigarettes, uncomplicated; M47.812 Spondylosis without myelopathy or radiculopathy, cervical region; Y90.8 Blood alcohol level of 240 mg/100 ml or more; Y04.2XXA Assault by strike against or bumped into by another person, initial encounter; K03.2 Erosion of teeth; K02.9 Dental caries, unspecified; R93.7 Abnormal findings on diagnostic imaging of other parts of musculoskeletal system
CPT/HCPCS: 36415; 70450; 70486; 72125; 80053; 80307; 81001; 81025; 82803; 82948; 83735; 84100; 85025; 96361; 96365; 96366; 96375; 99284; J2060; J3480; J7120

== ENCOUNTER 2023-04-19 16:58 | Observation (INO) | payer MEDICAID, SELFPAY ==
[2023-04-19] VITALS (24 sets, daily range): BP systolic 83–123; BP diastolic 51–87; PULSE 70–105; RESP 13–27; TEMP 36.8; O2SAT 93–99
--- NOTE | ~2023-04-19 | CT_ITS ---
EXAMINATION: CT abdomen pelvis w con DATE: 04/19/2023 20:14 INDICATION: epigastric pain, hx pancreatitis TECHNIQUE: Computed tomography (CT) of the abdomen and pelvis was performed with 100 mL Omnipaque-350 intravenous contrast. Automated exposure control and iterative reconstruction technique were employe d. The dose-length product was 552.41 mGy-cm. COMPARISON: 11/24/2021, 01/16/2020. FINDINGS: Lower thorax: Unremarkable Liver: Marked enlargement. Mild edema at the zoya hepatis. Biliary/Gallbladder: Gallbladder wall hyperemia and mild surrounding fluid/inflammatory change, presu mably reactive No bile duct dilation. Pancreas: Pancreatic atrophy and calcification. Spotty areas of pancreatic duct dilation. Minimal per ipancreatic fluid/inflammatory change at the pancreatic head. Spleen: Enlarged. Adrenals:No mass. Kidneys: No suspicious mass, obstructing stone, or hydronephrosis. GI tract: Marked gastric wall edema involving the gastric antrum, with nonencapsulated fluid anterior to the antrum and along the lesser sac. Somewhat organized appearing irregular rim-enhancing fluid d ensity along the free edge of the left liver lobe extending towards the lesser sac, difficult to kota ure given its irregular shape. Mild diffuse colonic wall edema. No small or large bowel dilation. Nor mal appendix. Mesentery/Peritoneum: No ascites, mass, or free air. Abdominal varices. Retroperitoneum: No mass. Atherosclerotic abdominal aortic and/or arterial calcifications. Pelvis: Mild bladder wall thickening in a partially distended urinary bladder. Normal uterus. Simple cyst versus dominant follicle in the right ovary. Soft Tissues: Soft tissues and body wall unremarkable. Bones: No acute osseous finding. IMPRESSION: CT findings more suggestive of severe gastritis, rather than overt pancreatitis, possibly secondary t o peptic ulcer disease. A component of, or contribution from mild/early acute on chronic pancreatitis is not excluded. Possible early small abscess versus early pseudocyst along the free margin of the left upper lobe ext ending towards the lesser sac. Infectious/inflammatory, or ischemic colitis. Hepatosplenomegaly with evidence of portal hypertension. Possible cystitis, correlate with urinalysis. Reviewed, dictated and finalized at location K. UNITY ASSOCIATION MANAGER IMPRESSION: CT findings more suggestive of severe gastritis, rather than overt pancreatitis , possibly secondary to peptic ulcer disease. A component of, or contribution f rom mild/early acute on chronic pancreatitis is not excluded. Possible early small abscess versus early pseudocyst along the free margin of t he left upper lobe extending towards the lesser sac. Infectious/inflammatory, or ischemic colitis. Hepatosplenomegaly with evidence of portal hypertension. Possible cystitis, correlate with urinalysis.
--- NOTE | 2023-04-19 17:11 | ECG_ITS ---
Measurements Intervals [place] Rate: 73 P: 58 IA: 158 QRS: 13 QRSD: 98 T: 44 QT: 467 QTc: 516 Interpretive Statements SINUS RHYTHM DELAYED PRECORDIAL R/S TRANSITION PROLONGED QT INTERVAL BASELINE WANDER- AVR, AVL ABNORMAL ECG COMPARED TO ECG 04/16/2022 11:56:24 PROLONGED QT INTERVAL NOW PRESENT Electronically Signed On 04-19-2023 19:34:23 OUTPATIENT CASE MANAGER by Duran Grey D.O.
[2023-04-19] MEDS: SODIUM CHLORIDE 0.9% IV 1,000 ML 999 ML IV CONT ×2 (17:48→21:32)
[2023-04-19 17:49] LABS: Basophils Percent Auto 0.3 % (0.2-1.2); Eosinophils Absolute Auto 0.1 K/mm3 (0-0.3); Eosinophils Percent Auto 0.7 % (0-4.4); Hematocrit 33.7 % (37.0-47.0); Hemoglobin 10.1 g/dL (12.0-15.0); Immature Granulocyte Absolute 0.03 K/mm3 (0.00-0.031); Immature Granulocyte Percent A 0.4 % (0-0.5); Lymphocytes Absolute Auto 1.67 K/mm3 (0.9-3.2); Lymphocytes Percent Auto 22.4 % (18.3-44.2); Mean Corpuscular Hemoglobin 23.9 pg (26-34); Mean Corpuscular Volume 79.9 fl (80-100); Mean Platelet Volume 10.9 fl (7.4-10.4); Monocytes Absolute Auto 0.4 K/mm3 (0.1-0.6); Monocytes Percent Auto 5.6 % (2.6-8.5); Neutrophils Absolute Auto 5.3 K/mm3 (1.3-6.7); Neutrophils Percent Auto 70.6 % (45.5-73.1); Platelet Count Result 117 k/mm3 (150-375); Red Blood Count 4.22 M/mm3 (4.2-5.4); Red Cell Distribution Width 18.9 % (11.5-14.5); White Blood Count 7.5 K/mm3 (4.5-10.0)
--- NOTE | 2023-04-19 18:02 | PC.NURSE ---
Poison Control called to notify of patient, OD. Instructed to ensure Mag and K are in the high normal range with a prolonged QT on EKG. After that is standard care. YOMI Walker, notified.
[2023-04-19 18:05] LABS: Acetaminophen < 10 ug/mL (10-30); Ethanol 201 mg/dL (<10); Salicylate < 1.0 mg/dL (2-20)
--- NOTE | 2023-04-19 18:05 | ED.OVERDOSE ---
HPI - Overdose General Chief Complaint: Overdose Stated Complaint: SI ATTEMPT Time Seen by Provider: 04/19/23 17:05 Source: patient Mode of arrival: EMS Limitations: intoxication History of Present Illness HPI Narrative: This is a 43 year old female that presents to the ER for an overdose. Reports she took about 6 of her Quetiapine and drank a bunch of liquor in order to end her life. Reports increased stressors lately. Reports she had been sober for about a year. Over the last month she has been drinking alcohol daily again. Does report history of withdrawal seizures. Reports history of previous overdose attempts. She has history of depression. Reports history of pancreatitis and she thinks she is having a flare. Reports epigastric pain, nausea. Denies fevers, or vomiting. Related Data Home Medications Medication Instructions Recorded Confirmed atorvastatin 10 mg tablet 10 mg PO DAILY 06/30/21 04/16/22 citalopram 40 mg tablet 40 mg PO DAILY 06/30/21 04/16/22 insulin aspart U-100 100 unit/mL 1 sliding scale dose subcut 07/01/21 04/16/22 subcutaneous solution (Novolog USEASDIRECTD U-100 Insulin aspart) insulin glargine 100 unit/mL 35 unit subcut HS 11/24/21 04/16/22 subcutaneous solution (Lantus U-100 Insulin) benztropine 1 mg tablet 1 mg PO QHS 02/24/22 04/16/22 gabapentin 300 mg capsule 300 mg PO BID 02/24/22 04/16/22 pregabalin 100 mg capsule 100 mg PO TID 02/24/22 04/16/22 quetiapine 100 mg tablet 100 mg PO HS 02/24/22 04/16/22 quetiapine 50 mg tablet 50 mg PO BID 02/24/22 04/16/22 Allergies Allergy/AdvReac Type Severity Reaction Status Date / Time No Known Allergies Allergy Unknown Verified 12/18/22 15:34 Review of Systems Review of Systems: CONSTITUTIONAL: Denies fever GASTROINTESTINAL: Reports abdominal pain, nausea. Denies vomiting, or diarrhea. GENITOURINARY: Denies dysuria PSYCHIATRIC: Reports anxiety and depression. All systems reviewed & are unremarkable except as noted in HPI and below PMFSH Past Medical History Medical History Alcohol intoxication Anxiety Bipolar disorder Depression DVT (deep venous thrombosis) Dyslipidemia Hepatitis IDDM (insulin dependent diabetes mellitus) Necrotizing pancreatitis Neuropathy Surgical History Surgical History History of section 2003, 2010, 2016 History of ERCP 06/2019 History of surgery on arm Left - 2019 History of tubal ligation [place] teeth extracted age 23 Family History Family History Mother Diabetes mellitus Family history of coronary artery disease Family history of dementia Social History Social History Social History: The patient has 3 children. She is currently from her and unemployed. She currently smokes half a pack of cigarettes a day. The patient is a recovering alcoholic and has not drink since March of 2021. She does not have a durable power deputy attorney general for healthcare. Code status full code Smoking packs per day: 1 Smoking cigarettes per day: 20.0 Years smoked: 20 Smoking pack-years: 20.00 Smoking status: Current every day smoker Tobacco type: cigarettes Second hand tobacco smoke exposure: Yes Additional smoking assessment comments: quit 4 months ago Alcohol intake: current Drinks per week: 50 Substance use: former Substance use type: prescription drug Gender identity (if verbalized by the patient): Female Spiritual care concerns: No Exam Narrative: GENERAL: Disheveled, well-nourished, and in no acute distress. HEAD: Normocephalic, atraumatic. EYES: PERRLA and EOMI. ENT: Nares clear, no rhinorrhea or epistaxis. Mucous membranes moist. Oropharynx without tonsillar hypertrophy exudate or other lesions. NECK: Supple. No adeno
[2023-04-19 18:06] LABS: Alanine Aminotransferase 27 U/L (6-35); Albumin Level 3.8 g/dL (3.5-5.1); Alkaline Phosphatase 108 U/L (38-126); Anion Gap 14 mmol/L (8-16); Aspartate Amino Transferase 30 U/L (14-36); Bilirubin,Total 0.4 mg/dL (0.2-1.3); Blood Urea Nitrogen 6 mg/dL (7-17); Calcium 8.7 mg/dL (8.4-10.2); Carbon Dioxide 23 mmol/L (22-30); Chloride 100 mmol/L (98-107); Estimated CRCL calculation 100 ml/min; Estimated Glomerular Filt Rate > 60; Glucose 335 mg/dL (65-110); Potassium 3.7 mmol/L (3.4-5.0); Sodium 137 mmol/L (137-145)
[2023-04-19 18:07] LABS: Amphetamine Screen Urine Negative (Negative); Barbiturate Screen Urine Negative (Negative); Benzodiazepines Screen Urine Negative (Negative); Cannabinoid Screen Urine Negative (Negative); Cocaine Screen Urine Negative (Negative); Methadone Screen Urine Negative (Negative); Opiate Screen Urine Negative (Negative); Phencyclidine Screen Urine Negative (Negative)
[2023-04-19 18:27] LABS: Influenza A QL RT-PCR Negative (Negative); Influenza B QL RT-PCR Negative (Negative); SARS-CoV-2 RNA PCR Negative (Negative)
[2023-04-19 18:28] LABS: Appearance Urine Clear (Clear); Bacteria Urine None Seen /hpf; Bilirubin Urine Negative (Negative); Blood Urine Negative (Negative); Color Urine Yellow (Yellow); Glucose Urine UA 3+ mg/dL (Negative); Ketones Urine Negative (Negative); Leukocyte Esterase Ur Negative LEU/UL (Negative); Need Manual Microscopic Reviewed; Nitrate Urine Negative (Negative); Non Pathogenic Casts 0-2; Protein Urine Trace mg/dL (Negative); RBC Urine 0-2 /hpf (0-2); Specific Grav Ur 1.008 (1.001-1.035); Squamous Epithelial Cell Urine None seen /hpf (Few); Urobilinogen Urine 0.2 mg/dL (<2.0); WBC Urine 0-5 /hpf
[2023-04-19 18:30] LABS: Add Urine Microscopic? YES
[2023-04-19 19:32] LABS: Lipase 22 U/L (23-300); Magnesium 1.6 mg/dL (1.6-2.3)
[2023-04-19 19:52] LABS: INR 1.1; Partial Thromboplastin Time 28.8 SECONDS (22.3-36.8); Prothrombin Time 14.3 Seconds (11.1-14.7)
--- NOTE | 2023-04-19 21:00 | PM.IMHP ---
H&P: HPI History of Present Illness Date/Time: 04/19/23 21:00 Chief Complaint: SI Narrative: THIS IS A 43-YEAR-OLD FEMALE WITH PAST MEDICAL HISTORY SIGNIFICANT FOR ALCOHOL DEPENDENCE, TOBACCO DEPENDENCE, PATIENT COMES TO THE EMERGENCY ROOM AFTER TAKING A FEW OF HER SEROQUEL PILLS WITH INTENTION OF HARMING HERSELF, AFTER SHE HAD BEEN SO FOR OVER A YEAR HOWEVER PICKED UP THE HABIT AGAIN AND HAS BEEN BINGE DRINKING FOR THE LAST SEVERAL WEEKS. PRELIMINARY WORKUP WAS SIGNIFICANT FOR EKG WITH A PROLONGED QT INTERVAL. PATIENT HAS BEEN ADMITTED FOR FURTHER EVALUATION MANAGEMENT AND TREATMENT. Rate 73 [place] 158 QRSd 98 QT 467 QTc 516 --[place]-- P 58 QRS 13 T 44 SINUS RHYTHM DELAYED PRECORDIAL R/S TRANSITION PROLONGED QT INTERVAL BASELINE WANDER- AVR, AVL ABNORMAL ECG COMPARED TO ECG 04/16/2022 11:56:24 PROLONGED QT INTERVAL NOW PRESENT Electronically Signed On 04-19-2023 19:34:23 OYSTER PREPARER by Duran Grey D.O. EXAMINATION: CT abdomen pelvis w con DATE: 04/19/2023 20:14 INDICATION: epigastric pain, hx pancreatitis TECHNIQUE: Computed tomography (CT) of the abdomen and pelvis was performed with 100 mL Omnipaque-350 intravenous contrast. Automated exposure control and iterative reconstruction technique were employed. The dose-length product was 552.41 mGy-cm. COMPARISON: 11/24/2021, 01/16/2020. FINDINGS: Lower thorax: Unremarkable Liver: Marked enlargement. Mild edema at the zoya hepatis. Biliary/Gallbladder: Gallbladder wall hyperemia and mild surrounding fluid/inflammatory change, presumably reactive No bile duct dilation. Pancreas: Pancreatic atrophy and calcification. Spotty areas of pancreatic duct dilation. Minimal peripancreatic fluid/inflammatory change at the pancreatic head. Spleen: Enlarged. Adrenals:No mass. Kidneys: No suspicious mass, obstructing stone, or hydronephrosis. GI tract: Marked gastric wall edema involving the gastric antrum, with nonencapsulated fluid anterior to the antrum and along the lesser sac. Somewhat organized appearing irregular rim-enhancing fluid density along the free edge of the left liver lobe extending towards the lesser sac, difficult to measure given its irregular shape. Mild diffuse colonic wall edema. No small or large bowel dilation. Normal appendix. Mesentery/Peritoneum: No ascites, mass, or free air. Abdominal varices. Retroperitoneum: No mass. Atherosclerotic abdominal aortic and/or arterial calcifications. Pelvis: Mild bladder wall thickening in a partially distended urinary bladder. Normal uterus. Simple cyst versus dominant follicle in the right ovary. Soft Tissues: Soft tissues and body wall unremarkable. Bones:? No acute osseous finding. IMPRESSION: CT findings more suggestive of severe gastritis, rather than overt pancreatitis, possibly secondary to peptic ulcer disease. A component of, or contribution from mild/early acute on chronic pancreatitis is not excluded. Possible early small abscess versus early pseudocyst along the free margin of the left upper lobe extending towards the lesser sac. Infectious/inflammatory, or ischemic colitis. Hepatosplenomegaly with evidence of portal hypertension. Possible cystitis, correlate with urinalysis. Review of Systems Review of Systems: BINGE DRINKING ON ALCOHOL TOOK ROUGHLY 8 PILLS OF HER SEROQUEL WITH INTENTION OF HARMING HERSELF Constitutional: Constitutional: Denies chills, Denies fatigue, Denies fever(s), Denies frequent falls, Denies malaise, Denies night sweats and Denies weakness Eyes: Eyes: Denies change in vision ENT: Denies dysphagia, Denies vertigo, Denies dizziness and Denies odynophagia Cardiovascular: Cardiovascular: Denies chest pain, Denies radiating jaw, neck or arm pain and Denies palpitations Respiratory: Respiratory: Denies chest congestion, Denies cough and Denies dyspnea Gastrointestinal: Gastrointestinal: Reports abdominal pain, Reports dyspepsia, Denies heartburn, Denies diarrhea, Denies nausea and Denies vomiting Genitouri
[2023-04-19] MEDS: PANTOPRAZOLE SODIUM IV 40 MG VIAL IV PUSH (21:03)
[2023-04-19 21:20] LABS: Lactic Acid Reflex 2.1 mmol/L (0.7-2.0)
--- NOTE | 2023-04-19 22:06 | PC.NURSE ---
poison control advises patient is released from their concern.
[2023-04-19] MEDS: KETOROLAC 15 MG/ML VIAL (*BKC) IV PUSH (23:22)
[2023-04-20] VITALS (23 sets, daily range): BP systolic 106–153; BP diastolic 58–93; PULSE 68–90; RESP 15–25; TEMP 36.2–36.9; O2SAT 92–100; BMI 30.1
[2023-04-20 00:08] LABS: Reflex Lactic Acid Yes or No Add Lactic
[2023-04-20] MEDS: LORazepam INJ (*CRX) 2 MG/ML VIAL IV PUSH ×3 (00:58→20:30)
[2023-04-20 01:07] LABS: Lactic Acid 0.8 mmol/L (0.7-2.0)
--- NOTE | 2023-04-20 04:07 | ADMGEN ---
This patient, Marisa Lott, was admitted to Intensive Care Unit-3. Patient/family oriented to hospital policies and general routines including ID bracelet, bed and alarms, visiting hours, pain management, procedures, bathroom and other care routines, personal items, smoking policy, room service/diet, and visiting hours. Information on how to activate the Rapid Response Team has been discussed. Patient/Family are encouraged to report perceived risks to care and to ask questions if they do not understand what they are told or what they should do.
[2023-04-20 06:24] LABS: Glucose Point of Care 298 mg/dl (65-105)
[2023-04-20] MEDS: LACTATED RINGERS 1,000 ML 999 ML IV CONT (08:01)
[2023-04-20] MEDS: ENOXAPARIN 40 MG/0.4 ML SYRINGE SUB-Q (08:02)
[2023-04-20] MEDS: INSULIN GLARGINE (*BKC) 100 UNITS/ML 25 UNITS SUB-Q (08:03)
[2023-04-20] MEDS: PANTOPRAZOLE SODIUM IV 40 MG VIAL IV PUSH ×2 (08:03→20:30)
[2023-04-20 08:35] LABS: Basophils Percent Auto 0.2 % (0.2-1.2); Eosinophils Absolute Auto 0.1 K/mm3 (0-0.3); Eosinophils Percent Auto 1.6 % (0-4.4); Hematocrit 33.5 % (37.0-47.0); Hemoglobin 9.5 g/dL (12.0-15.0); Immature Granulocyte Absolute 0.02 K/mm3 (0.00-0.031); Immature Granulocyte Percent A 0.4 % (0-0.5); Immature Platelet Fraction Pct 8.8 % (0.9-11.2); Lymphocytes Percent Auto 13.7 % (18.3-44.2); Mean Corpuscular HGB Conc 28.4 g/dl (32-36); Mean Corpuscular Hemoglobin 23.8 pg (26-34); Mean Corpuscular Volume 83.8 fl (80-100); Mean Platelet Volume 11.7 fl (7.4-10.4); Monocytes Absolute Auto 0.4 K/mm3 (0.1-0.6); Monocytes Percent Auto 8.2 % (2.6-8.5); Neutrophils Absolute Auto 3.9 K/mm3 (1.3-6.7); Neutrophils Percent Auto 75.9 % (45.5-73.1); Platelet Count Result 92 k/mm3 (150-375); White Blood Count 5.1 K/mm3 (4.5-10.0)
[2023-04-20 08:41] LABS: Hemoglobin A1C 9.1 % (<5.7)
[2023-04-20 08:43] LABS: Lipase 19 U/L (23-300)
[2023-04-20 08:46] LABS: Alanine Aminotransferase 23 U/L (6-35); Albumin Level 3.3 g/dL (3.5-5.1); Alkaline Phosphatase 111 U/L (38-126); Anion Gap 5 mmol/L (8-16); Aspartate Amino Transferase 33 U/L (14-36); Bilirubin,Total 0.7 mg/dL (0.2-1.3); Blood Urea Nitrogen 7 mg/dL (7-17); Calcium 7.7 mg/dL (8.4-10.2); Carbon Dioxide 21 mmol/L (22-30); Chloride 102 mmol/L (98-107); Creatine Kinase 55 U/L (30-135); Estimated CRCL calculation 188 ml/min; Estimated Glomerular Filt Rate > 60; Glucose 291 mg/dL (65-110); Magnesium 1.8 mg/dL (1.6-2.3); Phosphorus 2.2 mg/dL (2.5-4.5); Potassium 4.2 mmol/L (3.4-5.0); Sodium 128 mmol/L (137-145)
[2023-04-20 09:17] LABS: Hypochromasia 2+ (NORMAL)
[2023-04-20 09:18] LABS: Anisocytosis 1+ (NORMAL); Schistocytes None Seen (NORMAL)
[2023-04-20] MEDS: INSULIN ASPART (*BKC) 100 UNITS/ML SUB-Q (12:02)
--- NOTE | 2023-04-20 12:09 | WPDCNINT ---
Assessment and Plan Assessment and plan (1) Overdose: Qualifiers: Encounter type: initial encounter Injury intent: intentional self-harm Qualified Code(s): T50.902A - Poisoning by unspecified drugs, medicaments and biological substances, intentional self-harm, initial encounter Code(s): T50.901A - Poisoning by unspecified drugs, medicaments and biological substances, accidental (unintentional), initial encounter Status: Acute Assessment and Plan: patient presented the ED with alcohol intoxication and intentional drug overdose with quetiapine 100 mg x6 pills . patient did stated that she wanted to harm herself - initial EKG showed QT prolongation, - will recheck EKG this morning - poison Control has signed off - patient is medically stable to downgrade to medical status - will have care coordination crisis management evaluate the patient (2) Suicidal ideation: Code(s): R45.851 - Suicidal ideations Status: Acute Assessment and Plan: patient with intentional drug overdose as above, in the ER she did say that she wanted to harm herself - this morning she denies homicidal or suicidal ideation - continue suicide precautions - continue bedside sitter (3) Alcohol intoxication: Code(s): F10.929 - Alcohol use, unspecified with intoxication, unspecified Status: Acute Assessment and Plan: patient has been binge drinking for the last 1 month - alcohol levels were elevated in the ER - patient was given IV fluids - watch for withdrawal symptoms (4) Bipolar disorder: Code(s): F31.9 - Bipolar disorder, unspecified Status: Acute Assessment and Plan: history of depression and anxiety (5) Diabetes mellitus: Code(s): E11.9 - Type 2 diabetes mellitus without complications Status: Acute Assessment and Plan: continue Accu-Cheks, sliding scale insulin - continue Lantus Plan DVT prophylaxis: enoxaparin Stress ulcer prophylaxis: not indicated Nutrition: diabetic diet Code Status: full code Critical Care Time Spent: 43 minutes Due to a high probability of clinically significant, life threatening deterioration, the patient required my highest level of preparedness to intervene emergently and I personally spent this critical care time directly and personally managing the patient. This critical care time included obtaining a history; examining the patient; pulse oximetry; ordering and review of studies; arranging urgent treatment with development of a management plan; evaluation of patient's response to treatment; frequent reassessment; and discussions with other providers. It was exclusive of separately billable procedures and treating other patients and teaching time. Please see Assessment and Plan section and the rest of the note for further information on patient assessment and treatment This dictation may have been done utilizing a voice recognition system. Attempts have been made to correct errors. However, there may be uncorrected grammatical, spelling, and recognitions errors present. Detective Investigator Consult Note Consult date: 04/20/23 Reason for consult: Intentional drug overdose off 6 pills off Seroquel ( quetiapine), binge drinking, suicidal ideation /behavior HPI: Marisa Lott is a 43 year old female with significant past medical history of alcohol abuse, anxiety, bipolar, depression, history of DVT, hyperlipidemia, hepatitis, insulin-dependent diabetes, necrotizing pancreatitis and neuropathy presented to the ED on 04/19/2023 after ingesting 6 pills of her quetiapine and binge drinking in order to end her life. Patient reported that she was sober for years and over the last month due to some stressors in alive she has been drinking alcohol daily. She does have a history of withdrawal seizures. Also reports previous overdose attempts. She did complain of epigastric pain and nausea. Denies any vomiting, fevers. In the ER a QT
--- NOTE | 2023-04-20 12:20 | ECG_ITS ---
Measurements Intervals [place] Rate: 72 P: 234 [place]: 145 QRS: 30 QRSD: 103 T: 29 QT: 395 QTc: 433 Interpretive Statements ECTOPIC ATRIAL RHYTHM BASELINE ARTIFACT- II, III, AVR, AVF ABNORMAL ECG COMPARED TO ECG 04/19/2023 17:34:05 ECTOPIC ATRIAL RHYTHM NOW PRESENT PROLONGED QT INTERVAL NO LONGER PRESENT Electronically Signed On 04-20-2023 12:59:20 GARDEN MACHINERY MECHANIC by Duran Grey D.O.
[2023-04-20 12:50] LABS: Glucose Point of Care 227 mg/dl (65-105)
[2023-04-20 14:36] LABS: Ethanol < 10 mg/dL (<10)
[2023-04-20 16:45] LABS: Glucose Point of Care 148 mg/dl (65-105)
[2023-04-20] MEDS: PREGABALIN (*CRX) 75 MG CAPSULE 300 MG PO (20:29)
--- NOTE | 2023-05-03 17:29 | PM.TDS ---
Transfer Discharge Sum: Prov Provider Date of admission: 04/19/23 21:32 Primary care physician: Fern Portillo, Admitting clinician: Doyle Thompson MD Consults: 04/19/23 Consult to Physician Routine Comment: Consulting Provider: David Valdivia Reason for consultation: overdose Has provider been notified: Yes 04/19/23 21:04 Care Coordination Consult Routine Comment: Reason for Consult:: Crisis Intervention DS: Admitting Diagnosis Discharge Date 04/20/23 Admitting Diagnosis 43-year-old female with history of anxiety, depression, hyperlipidemia, hepatitis, diabetes is presenting with trying to overdose on pills and alcohol to end her life. Patient presented the ED with alcohol intoxication and intentional drug overdose with quetiapine 100 mg x6 pills Patient did state that she wanted to harm herself Initial EKG showed QT prolongation Poison Control has signed off Patient is medically stable to downgrade to medical status Will have care coordination crisis management evaluate the patient Patient determined to be unsafe for discharge. Transfer initiated to psychiatric inpatient. Please see above and med rec for details. Transfer Discharge Sum: Med Medications Active and Home Medications: Home Medications citalopram 40 mg tablet 40 mg PO DAILY 06/30/21 [History Confirmed 04/20/23] insulin aspart U-100 100 unit/mL subcutaneous solution (Novolog U-100 Insulin aspart) 1 sliding scale dose subcut USEASDIRECTD 07/01/21 [History Confirmed 04/20/23] insulin glargine 100 unit/mL subcutaneous solution (Lantus U-100 Insulin) 35 unit subcut HS 11/24/21 [History Confirmed 04/20/23] benztropine 1 mg tablet 1 mg PO QHS 02/24/22 [History Confirmed 04/20/23] gabapentin 300 mg capsule 300 mg PO TID 02/24/22 [History Confirmed 04/20/23] pregabalin 100 mg capsule 300 mg PO TID 02/24/22 [History Confirmed 04/20/23] quetiapine 100 mg tablet 100 mg PO HS 02/24/22 [History Confirmed 04/20/23] quetiapine 50 mg tablet 50 mg PO BID 02/24/22 [History Confirmed 04/20/23] Transfer Discharge Sum: Hosp Hospital Course Hospital course: Marisa Lott is a 43 year old female Time Spent with Patient Time attestation: Total time spent providing and/or coordinating transfer services:
== END 2023-04-20 21:45 | disposition short-term general hospital (02) ==
LOC: ANHED 21:11 → ANHICU 04-20 03:42
PROVIDERS: Internal Medicine; Student in an Organized Health Care Education/Training Program; Admitting Provider Internal Medicine; Emergency Provider Physician Assistant; PCP Family Medicine; Visit Provider Internal Medicine
DX: T43.592A Poisoning by other antipsychotics and neuroleptics, intentional self-harm, initial encounter (principal); F10.229 Alcohol dependence with intoxication, unspecified; Y90.7 Blood alcohol level of 200-239 mg/100 ml; R45.851 Suicidal ideations; K52.9 Noninfective gastroenteritis and colitis, unspecified; R94.31 Abnormal electrocardiogram [ECG] [EKG]; K85.91 Acute pancreatitis with uninfected necrosis, unspecified; K86.1 Other chronic pancreatitis; F31.9 Bipolar disorder, unspecified; E78.5 Hyperlipidemia, unspecified; E11.40 Type 2 diabetes mellitus with diabetic neuropathy, unspecified; F41.9 Anxiety disorder, unspecified; Z91.51 Personal history of suicidal behavior; Z86.718 Personal history of other venous thrombosis and embolism; Z79.4 Long term (current) use of insulin; Z79.899 Other long term (current) drug therapy
CPT/HCPCS: 36415; 74177; 80053; 80307; 81001; 81025; 82550; 82948; 83036; 83605; 83690; 83735; 84100; 84443; 85025; 85055; 85610; 85730; 87040; 87636; 93005; 96361; 96365; 96366; 96372; 96375; 96376; 99285; A9270; C9113; G0378; G0379; J1650; J1815; J1885; J2060; J3411; J3475; J7030; J7120; Q9967

== ENCOUNTER 2023-08-18 22:04 | Emergency (ER) | payer BC, SELFPAY ==
--- NOTE | ~2023-08-18 | XR_ITS ---
EXAMINATION: XR hand RT min 3V DATE: 08/18/2023 22:52 INDICATION: Right hand injury. TECHNIQUE: 3 views of right hand were obtained. COMPARISON: None. FINDINGS: There is an oblique intra-articular fracture of base of first proximal phalanx. The distal fracture fragment demonstrates impaction. There is a fracture of neck of fifth metacarpal. The distal fracture fragment demonstrates impaction. Joint spaces are normal. IMPRESSION: 1. Oblique fracture of base of first proximal phalanx. 2. Fracture of neck of fifth metacarpal. Reviewed, dictated and finalized at location E. TIONATION SUPERVISOR
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
--- NOTE | ~2023-08-18 | XR_ITS ---
EXAMINATION: XR wrist RT min 3V DATE: 08/18/2023 22:53 INDICATION: Right wrist injury and swelling. TECHNIQUE: 3 views of right wrist were obtained. COMPARISON: None. FINDINGS: There is an oblique intra-articular fracture of base of first proximal phalanx. The distal fracture fragment demonstrates 2 mm ulnar displacement. There is a fracture of neck of fifth metacarp al with impaction. Joint spaces are normal. IMPRESSION: 1. Fracture of base of first proximal phalanx. 2. Fracture of neck of fifth metacarpal. Reviewed, dictated and finalized at location E. RITY PROGRAM MANAGER
--- NOTE | ~2023-08-18 | CT_ITS ---
Noncontrast CT scan of the cervical spine Technique: Multiple contiguous axial [address] images of the cervical spine were obtained and rec onstructed in 2D sagittal and coronal planes on the acquisition scanner. Dose reduction technique was used on this scan by utilizing automated exposure control, adjustment of the mA and/or kV according to patient size. The dose-length product (DLP) was 432.28 mGy-cm. Clinical History: Pain Findings: No fractures or dislocations. Unremarkable visualized bony structures. The intervertebral disc spaces are preserved. No prevertebral soft tissue swelling. Impression: No fracture or subluxation of the cervical spine. Reviewed, dictated and finalized at location . ING ATTENDANT Impression: No fracture or subluxation of the cervical spine.
--- NOTE | ~2023-08-18 | CT_ITS ---
Clinical Indication: Trauma CT Scan of the Chest, Abdomen, and Pelvis with Contrast: Technique: Contiguous sections were acquired throughout the chest, abdomen, and pelvis after intraven ous administration of 100 cc of Omnipaque 350. Dose reduction technique was used on this scan by josh bauman automated exposure control and iterative reconstruction technique. The dose-length product (DL P) was 847.76 mGy-cm. COMPARISON: 04/19/2023 Findings: There is no evidence of any significant mediastinal, hilar or axillary lymphadenopathy. The mediastin al soft tissues appear normal. There is no evidence of pleural or pericardial effusion. The lungs are clear. No pulmonary nodules or infiltrates are noted. Old right rib fracture deformitie s are noted. No acute fracture evident. The liver, spleen, gallbladder, adrenals and kidneys are within normal limits. Pancreatic calcificati ons are consistent with chronic pancreatitis. No evidence of aortic aneurysm. No lymphadenopathy. Sp lenic vein appears to be occluded, there is a probable high-grade stricture/stenosis at the proximal main portal vein. No bowel obstruction or bowel wall thickening. There is no evidence to suggest acute appendicitis. Urinary bladder is unremarkable. No adnexal mass seen. No ascites. Impression: No acute abnormality. Chronic pancreatitis with occlusion of splenic vein and high-grade stricture/stenosis at the proximal main portal vein. Chronic right rib fracture deformities. Reviewed, dictated and finalized at [facility]. O REGULATOR Impression: No acute abnormality. Chronic pancreatitis with occlusion of splenic vein and high-grade stricture/st enosis at the proximal main portal vein. Chronic right rib fracture deformities.
--- NOTE | ~2023-08-18 | XR_ITS ---
EXAMINATION: XR knee LT 3V DATE: 08/18/2023 22:52 INDICATION: Left knee injury. TECHNIQUE: 3 views of left knee were obtained. COMPARISON: None. FINDINGS: Bone alignment is normal. No fracture. There is mild tricompartmental osteoarthritis. No kn ee joint effusion. IMPRESSION: 1. Mild left knee osteoarthritis. Reviewed, dictated and finalized at location E. R HELPER
[2023-08-18 22:04] VITALS: BP 126/76; PULSE 90; RESP 14; TEMP 36.9; O2SAT 96
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
[2023-08-18 22:24] LABS: Basophils Percent Auto 0.5 % (0.2-1.2); Eosinophils Absolute Auto 0.1 K/mm3 (0-0.3); Eosinophils Percent Auto 0.9 % (0-4.4); Hematocrit 39.2 % (37.0-47.0); Hemoglobin 12.2 g/dL (12.0-15.0); Immature Granulocyte Absolute 0.02 K/mm3 (0.00-0.031); Immature Granulocyte Percent A 0.2 % (0-0.5); Lymphocytes Absolute Auto 3.24 K/mm3 (0.9-3.2); Lymphocytes Percent Auto 38.1 % (18.3-44.2); Mean Corpuscular HGB Conc 31.1 g/dl (32-36); Mean Corpuscular Hemoglobin 24.3 pg (26-34); Mean Corpuscular Volume 78.1 fl (80-100); Mean Platelet Volume 9.4 fl (7.4-10.4); Monocytes Absolute Auto 0.5 K/mm3 (0.1-0.6); Monocytes Percent Auto 5.6 % (2.6-8.5); Neutrophils Absolute Auto 4.6 K/mm3 (1.3-6.7); Neutrophils Percent Auto 54.7 % (45.5-73.1); Platelet Count Result 253 k/mm3 (150-375); Red Blood Count 5.02 M/mm3 (4.2-5.4); Red Cell Distribution Width 19.9 % (11.5-14.5); White Blood Count 8.5 K/mm3 (4.5-10.0)
[2023-08-18 22:28] LABS: Appearance Urine Clear (Clear); Bacteria Urine None Seen /hpf; Bilirubin Urine Negative (Negative); Blood Urine 3+ (Negative); Color Urine Yellow (Yellow); Glucose Urine UA 3+ mg/dL (Negative); Ketones Urine Negative (Negative); Leukocyte Esterase Ur Negative LEU/UL (Negative); Nitrate Urine Negative (Negative); Non Pathogenic Casts 0-2; Protein Urine Trace mg/dL (Negative); RBC Urine >100 /hpf (0-2); Specific Grav Ur 1.014 (1.001-1.035); Squamous Epithelial Cell Urine Occasional /hpf (Few); Urobilinogen Urine 0.2 mg/dL (<2.0); WBC Urine 0-5 /hpf
[2023-08-18 22:33] LABS: Add Urine Microscopic? YES
[2023-08-18 22:36] LABS: Alanine Aminotransferase 37 U/L (6-35); Albumin Level 4.1 g/dL (3.5-5.1); Alkaline Phosphatase 153 U/L (38-126); Anion Gap 11 mmol/L (8-16); Aspartate Amino Transferase 52 U/L (14-36); Bilirubin,Total 0.4 mg/dL (0.2-1.3); Blood Urea Nitrogen 10 mg/dL (7-17); Calcium 8.5 mg/dL (8.4-10.2); Carbon Dioxide 27 mmol/L (22-30); Chloride 100 mmol/L (98-107); Estimated CRCL calculation 122 ml/min; Estimated Glomerular Filt Rate > 60; Glucose 352 mg/dL (65-110); Magnesium 1.6 mg/dL (1.6-2.3); Phosphorus 3.3 mg/dL (2.5-4.5); Potassium 3.9 mmol/L (3.4-5.0); Sodium 138 mmol/L (137-145)
[2023-08-18 22:41] LABS: Beta-Hydroxybutyrate/Acetoacetate 0.17 mmol/L (0.02-0.27)
[2023-08-18 23:40] LABS: Ethanol 332 mg/dL (<10)
[2023-08-19] MEDS: SODIUM CHLORIDE 0.9% IV 1,000 ML 999 ML IV CONT (01:18)
[2023-08-19 01:19] VITALS: BP 128/76; PULSE 94; RESP 16; O2SAT 96
[2023-08-19] MEDS: SODIUM CHLORIDE 0.9% IV 1,000 ML 150 ML IV CONT (02:21)
[2023-08-19] MEDS: KETOROLAC 15 MG/ML VIAL (*BKC) IV PUSH (05:22)
[2023-08-19 06:26] VITALS: BP 126/78; PULSE 81; RESP 16; O2SAT 94
--- NOTE | 2023-08-19 06:30 | PC.NURSE ---
Pt put up for discharge and awaiting arrival of care coordination for help to find a ride home.
[2023-08-19 07:19] VITALS: BP 133/69; PULSE 83; RESP 18; O2SAT 98
--- NOTE | 2023-08-19 07:22 | PC.NURSE ---
Care coordination contacted in order to help pt find a ride home.
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
--- NOTE | 2023-08-30 11:12 | PC.NURSE ---
LATE ENTRY This note is being entered to document information to the patient's record. The following information was omitted on [08/18/23], by [Dr. Calvillo]. VORB for Short arm ulnar gutter splint to R forearm.
== END 2023-08-19 08:56 | disposition home or self-care (01) ==
PROVIDERS: Emergency Provider Emergency Medicine; PCP Family Medicine
DX: S29.9XXA Unspecified injury of thorax, initial encounter (principal); S62.511A Displaced fracture of proximal phalanx of right thumb, initial encounter for closed fracture; S62.336A Displaced fracture of neck of fifth metacarpal bone, right hand, initial encounter for closed fracture; I82.890 Acute embolism and thrombosis of other specified veins; I87.1 Compression of vein; K86.1 Other chronic pancreatitis; F10.129 Alcohol abuse with intoxication, unspecified; Y90.8 Blood alcohol level of 240 mg/100 ml or more; R74.01 Elevation of levels of liver transaminase levels; E78.5 Hyperlipidemia, unspecified; E11.9 Type 2 diabetes mellitus without complications; F41.9 Anxiety disorder, unspecified; F31.9 Bipolar disorder, unspecified; Z86.718 Personal history of other venous thrombosis and embolism; F17.210 Nicotine dependence, cigarettes, uncomplicated; M17.12 Unilateral primary osteoarthritis, left knee; Z79.4 Long term (current) use of insulin; Y00.XXXA Assault by blunt object, initial encounter
CPT/HCPCS: 29125; 36415; 70450; 71260; 72125; 73110; 73130; 73562; 74177; 80053; 80307; 81001; 81025; 82010; 83735; 84100; 85025; 96361; 96374; 99284; J1885; J7030; Q9967

== ENCOUNTER 2023-11-18 05:45 | Emergency (ER) | payer BC, SELFPAY ==
[2023-11-18 05:50] VITALS: BP 113/91; PULSE 118; RESP 18; TEMP 36.6; O2SAT 100
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
== END 2023-11-18 06:18 | disposition left against medical advice (07) ==
DX: R10.12 Left upper quadrant pain (principal)
CPT/HCPCS: 99199

== ENCOUNTER 2023-11-18 06:16 | Emergency (ER) | payer BC, SELFPAY ==
[2023-11-18 06:29] VITALS: BP 125/79; PULSE 95; RESP 18; TEMP 36.6; O2SAT 100
[2023-11-18 06:30] VITALS: BP 125/79; PULSE 93; RESP 18; TEMP 36.6; O2SAT 100
--- NOTE | 2023-11-18 06:36 | PC.NURSE ---
Pt stated that she no longer wanted to be seen by the EDP. Pt signed AMA form with this RN & SINA Adams. Pt taken to ED exit in handcuffs by Floresita JACOBS.
== END 2023-11-18 06:49 | disposition left against medical advice (07) ==
LOC: ANHED 06:48
DX: K85.91 Acute pancreatitis with uninfected necrosis, unspecified (principal)
CPT/HCPCS: 96372; 99199; 99283

== ENCOUNTER 2023-12-22 17:27 | Emergency (ER) | payer BC, SELFPAY ==
--- NOTE | ~2023-12-22 | CT_ITS ---
EXAMINATION: CT brain wo con DATE: 12/22/2023 18:25 INDICATION: Altered mental status. TECHNIQUE: Computed tomography (CT) of the head was performed without intravenous contrast. The mA wa s adjusted according to patient size. Iterative reconstruction technique was employed. The dose-lengt h product was 605.33 mGy-cm. COMPARISON: Head CT 08/19/2023 FINDINGS: There is no intracranial hemorrhage, acute infarction, or abnormal intracranial mass lesion . The ventricles are normal in size. The mastoid air cells are normal. The orbits are normal. There i s mild mucosal thickening in the paranasal sinuses. IMPRESSION: 1. Normal brain. Reviewed, dictated and finalized at location E. IMPRESSION: 1. Normal brain.
--- NOTE | ~2023-12-22 | XR_ITS ---
EXAMINATION: XR chest 1V portable DATE: 12/22/2023 17:59 INDICATION: Altered mental status. TECHNIQUE: A single frontal view of the chest was obtained. COMPARISON: Chest single view 04/16/2022 FINDINGS: The lung volumes are small. There is interstitial pattern in the lungs. No pleural effusion or pneumothorax. The heart size is normal. There is plate and screw fixation of left humerus. IMPRESSION: 1. Interstitial pattern in the lungs, which may be mild pulmonary edema or mild atelectasis. Reviewed, dictated and finalized at location E.
[2023-12-22 17:26] VITALS: BP 94/52; PULSE 89; RESP 16; TEMP 37.1; O2SAT 97
--- NOTE | 2023-12-22 17:33 | ECG_ITS ---
Test Date: 2023-12-22 17:33:41 Measurements Intervals [place] Rate: 84 P: 44 MO: 153 QRS: -2 QRSD: 93 T: 21 QT: 395 QTc: 468 Interpretive Statements SINUS RHYTHM BASELINE WANDER- I, II, III, AVR, AVL, AVF NORMAL ECG No previous ECG available for comparison Electronically Signed On 12-23-2023 14:13:56 CDT by Duran Grey D.O.
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
[2023-12-22 17:48] LABS: Glucose Point of Care 479 mg/dl (65-105)
[2023-12-22 17:49] LABS: Fractional Inspired Oxygen 21 %; HCO3 VBG 19.4 mEq/l (24.0-30.0); PCO2 VBG 35.8 mmHg (42.0-48.0); PO2 VBG 54.4 mmHg (35.0-45.0); pH VBG 7.352 (7.300-7.400)
[2023-12-22 17:50] LABS: Device ROOM AIR
[2023-12-22 17:53] LABS: Basophils Percent Auto 0.2 % (0.2-1.2); Eosinophils Absolute Auto 0.2 K/mm3 (0-0.3); Eosinophils Percent Auto 1.8 % (0-4.4); Hematocrit 33.3 % (37.0-47.0); Hemoglobin 10.2 g/dL (12.0-15.0); Immature Granulocyte Absolute 0.02 K/mm3 (0.00-0.031); Immature Granulocyte Percent A 0.2 % (0-0.5); Lymphocytes Percent Auto 26.8 % (18.3-44.2); Mean Corpuscular HGB Conc 30.6 g/dl (32-36); Mean Corpuscular Hemoglobin 23.7 pg (26-34); Mean Corpuscular Volume 77.3 fl (80-100); Monocytes Absolute Auto 0.5 K/mm3 (0.1-0.6); Monocytes Percent Auto 5.7 % (2.6-8.5); Neutrophils Absolute Auto 5.4 K/mm3 (1.3-6.7); Neutrophils Percent Auto 65.3 % (45.5-73.1); Platelet Count Result 174 k/mm3 (150-375); Red Blood Count 4.31 M/mm3 (4.2-5.4); Red Cell Distribution Width 19.9 % (11.5-14.5); White Blood Count 8.2 K/mm3 (4.5-10.0)
[2023-12-22] MEDS: SODIUM CHLORIDE 0.9% IV 1,000 ML 999 ML IV CONT ×3 (17:58→19:57)
[2023-12-22 18:02] LABS: Ethanol 237 mg/dL (<10)
[2023-12-22 18:42] VITALS: BP 90/52; PULSE 82; RESP 15; O2SAT 97
[2023-12-22 19:15] LABS: Beta-Hydroxybutyrate/Acetoacetate 0.31 mmol/L (0.02-0.27)
[2023-12-22 19:16] LABS: Alanine Aminotransferase 28 U/L (6-35); Albumin Level 3.7 g/dL (3.5-5.1); Alkaline Phosphatase 89 U/L (38-126); Anion Gap 15 mmol/L (4-12); Aspartate Amino Transferase 40 U/L (14-36); Bilirubin,Total 0.2 mg/dL (0.2-1.3); Blood Urea Nitrogen 12 mg/dL (7-17); Calcium 8.4 mg/dL (8.4-10.2); Carbon Dioxide 19 mmol/L (22-30); Chloride 102 mmol/L (98-107); Estimated CRCL calculation 91 ml/min; Estimated Glomerular Filt Rate > 60; Glucose 536 mg/dL (65-110); Magnesium 1.8 mg/dL (1.6-2.3); Phosphorus 2.9 mg/dL (2.5-4.5); Potassium 3.8 mmol/L (3.4-5.0); Sodium 136 mmol/L (137-145)
--- NOTE | 2023-12-22 19:31 | PC.NURSE ---
Spoke with EDP Dr. Forman who is ok with waiting until pt is more alert to obtain urine sample.
[2023-12-22 19:42] VITALS: BP 99/51; PULSE 91; RESP 17; O2SAT 97
[2023-12-22] MEDS: INSULIN GLARGINE (*BKC) 100 UNITS/ML 35 UNITS SUB-Q (20:21)
[2023-12-22 20:32] VITALS: BP 104/46; PULSE 84; RESP 19; O2SAT 92
== END 2023-12-22 21:10 | disposition home or self-care (01) ==
PROVIDERS: Emergency Provider Emergency Medicine
DX: F10.129 Alcohol abuse with intoxication, unspecified (principal); R73.9 Hyperglycemia, unspecified; Y90.7 Blood alcohol level of 200-239 mg/100 ml; E78.5 Hyperlipidemia, unspecified; F17.210 Nicotine dependence, cigarettes, uncomplicated
CPT/HCPCS: 36415; 70450; 71045; 80053; 80307; 82010; 82803; 82948; 83735; 84100; 85025; 93005; 96360; 96361; 99284; J1815; J7030

== ENCOUNTER 2024-01-13 19:05 | Emergency (ER) | payer BC, SELFPAY ==
--- NOTE | 2024-01-13 19:13 | PC.NURSE ---
1912-PATIENT YELLING AND CURSING IN WAITING ROOM. I SPOKE TO PATIENT TO ATTEMPT TO TRIAGE. PATIENT DECLINES TO BE SEEN. PATIENT STATES I JUST WANT THE FUCK TO GO . SECURITY WITH PATIENT.
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
== END 2024-01-13 19:53 | disposition left against medical advice (07) ==
DX: Z53.21 Procedure and treatment not carried out due to patient leaving prior to being seen by health care provider (principal)
CPT/HCPCS: 99199

== ENCOUNTER 2024-03-10 09:20 | Inpatient (IN) | payer BC, SELFPAY ==
[2024-03-10] VITALS (18 sets, daily range): BP systolic 111–164; BP diastolic 48–87; PULSE 91–114; RESP 12–22; TEMP 36.4–37.6; O2SAT 98–100; BMI 33.0
--- NOTE | ~2024-03-10 | XR_ITS ---
EXAMINATION: XR chest 1V portable 03/10/2024 11:17 INDICATION: Lactic acidosis. Intoxication. PROCEDURE: AP portable chest COMPARISON: Comparison to multiple prior studies sequentially, with oldest reviewed study dated 07/31. FINDINGS: The lungs are clear. The cardiomediastinal silhouette is within normal limits. There are no pleural effusions. There is no pneumothorax suspected. There are multiple healed rib fractures o n the right. There is internal fixation of the left humerus proximally. IMPRESSION: 1: NO ACUTE CARDIOPULMONARY DISEASE. Reviewed, dictated and finalized at location B.
--- NOTE | ~2024-03-10 | CT_ITS ---
EXAMINATION: CT brain wo con DATE: 03/10/2024 11:13 INDICATION: Altered mental status TECHNIQUE: Computed tomography (CT) of the head was performed without intravenous contrast. Sagittal and coronal reconstructions were performed. The mA was adjusted according to patient size. Iterative reconstruction technique was employed. The dose-length product was 681.00 mGy-cm. COMPARISON: head CT dated 12/22/2023 FINDINGS: No acute intracranial hemorrhage, acute infarction or abnormal extra axial fluid collection. Ventricl es are normal and symmetric. No mass/mass effect. Mild mucosal thickening the left maxillary sinus. T he orbits and mastoid air cells are normal. IMPRESSION: 1. Normal brain. No acute intracranial process. Reviewed, dictated and finalized at location A.
--- NOTE | 2024-03-10 09:45 | ECG_ITS ---
Test Date: 2024-03-10 09:53:51 Measurements Intervals [place] Rate: 95 P: 59 MI: 136 QRS: 17 QRSD: 98 T: 61 QT: 405 QTc: 509 Interpretive Statements SINUS RHYTHM BORDERLINE ST ABNORMALITY- INF/LAT LEADS BASELINE ARTIFACT- I, III, AVR, AVL BORDERLINE ECG Compared to ECG 12/22/2023 17:33:41 No significant changes Electronically Signed On 03-10-2024 10:32:34 CDT by Duran Grey D.O.
--- NOTE | 2024-03-10 10:04 | ED.ALCOHOL ---
HPI - Alcohol General Chief Complaint: Alcohol Stated Complaint: etoh-dka Time Seen by Provider: 03/10/24 09:35 Source: patient and EMS Mode of arrival: EMS Limitations: altered mental status History of Present Illness HPI narrative: HPI limited due to patient's altered mental status This is a 43-year-old female, with history of diabetes with multiple episodes of DKA, alcohol abuse, brought in by EMS from home for altered mental status and persistent vomiting. EMS reports PD was earlier called out due to a disturbance vomiting the patient's . On their arrival, the patient smelled of alcohol was retching continuously. She did not provide additional information to them. The patient states she has been vomiting for the past 2-3 hours. She complains of diffuse abdominal pain but does not provide additional information. She consistently demands to drink water from the faucet. Related Data Home Medications Medication Instructions Recorded Confirmed insulin aspart U-100 100 unit/mL 1 sliding scale dose subcut 07/01/21 03/10/24 subcutaneous solution (Novolog USEASDIRECTD U-100 Insulin aspart) insulin glargine 100 unit/mL 35 unit subcut HS 11/24/21 03/10/24 subcutaneous solution (Lantus U-100 Insulin) pregabalin 100 mg capsule 200 mg PO TID 02/24/22 03/10/24 albuterol sulfate 90 mcg/actuation 90 mcg inhalation DAILY 03/10/24 03/10/24 aerosol inhaler carbidopa 25 mg-levodopa 100 mg See Rx Instructions .Route .COMPLEX 03/10/24 03/10/24 tablet dextroamphetamine-amphetamine 30 30 mg PO DAILY 03/10/24 03/10/24 mg tablet duloxetine 60 mg capsule,delayed See Rx Instructions .Route .COMPLEX 03/10/24 03/10/24 release hydroxyzine pamoate 25 mg capsule 25 mg PO HS 03/10/24 03/10/24 Allergies Allergy/AdvReac Type Severity Reaction Status Date / Time No Known Allergies Allergy Unknown Verified 12/18/22 15:34 Review of Systems Review of Systems: ROS unobtainable: Yes unobtainable due to mental status PMFSH Past Medical History Medical History (Updated 03/10/24 @ 16:06 by Florencia Doss PA-C) Anxiety Bipolar disorder Chronic pancreatitis Depression DVT (deep venous thrombosis) Dyslipidemia Hepatitis Necrotizing pancreatitis Neuropathy Type 1 diabetes mellitus Surgical History Surgical History (Updated 03/10/24 @ 15:00 by Florencia Doss PA-C) History of section 2004, 2010, 2016 History of ERCP (06/2019) History of surgery on arm (2019) Left History of tubal ligation History of wisdom tooth extraction Family History Family History Mother Diabetes mellitus Family history of coronary artery disease Family history of dementia Social History Social History (Updated 03/10/24 @ 16:04 by Florencia Doss PA-C) Social History: Surrogate medical decision maker: Billy Wright, friend. Code status: Full code. Smoking packs per day: 0.5 Smoking cigarettes per day: 10.0 Years smoked: 15 Smoking pack-years: 7.50 Smoking status: Current every day smoker Tobacco type: cigarettes Second hand tobacco smoke exposure: Yes Additional smoking assessment comments: quit 4 months ago Alcohol intake: current Drinks per week: 50 Substance use: current Substance use type: marijuana Last use: 03/10/2024 Do You Feel Safe in your Home?: Yes Lack of Transportation: No Lack of Food: Sometimes True Current Housing: I Have Housing Concerned About Future Housing: Decline to Answer Difficulty Paying Gas/Electric Bills: Decline to Answer Difficulty Paying for Meds: Decline to Answer Currently Unemployed: Decline to Answer Education: Decline to Answer Difficulty w/ Childcare or Family Care: Decline to Answer Additional occupation/education comments: Unemployed. Spiritual care concerns: No Exam Narrative: GENERAL: Well-developed, well-nourished, appears agitated, retching continuo
--- NOTE | 2024-03-10 10:05 | PCRCNOTE ---
Venous Blood Gas ordered; spoke to Macario who was answering for charge nurse and said he would pass along the message to call respiratory when the VBG had been drawn so it could be ran.
[2024-03-10] MEDS: SODIUM CHLORIDE 0.9% IV 2,000 ML 999 ML IV CONT (10:15)
[2024-03-10] MEDS: HALOPERIDOL LACTATE 5 MG/ML VIAL IV PUSH (10:15)
[2024-03-10 10:24] LABS: Basophils Absolute Auto 0.1 K/mm3 (0.0-0.1); Basophils Percent Auto 0.4 % (0.2-1.2); Eosinophils Percent Auto 0.1 % (0-4.4); Hematocrit 38.2 % (37.0-47.0); Hemoglobin 12.3 g/dL (12.0-15.0); Immature Granulocyte Absolute 0.13 K/mm3 (0.00-0.031); Immature Granulocyte Percent A 0.7 % (0-0.5); Lymphocytes Absolute Auto 1.78 K/mm3 (0.9-3.2); Mean Corpuscular HGB Conc 32.2 g/dl (32-36); Mean Corpuscular Hemoglobin 24.6 pg (26-34); Mean Corpuscular Volume 76.6 fl (80-100); Monocytes Absolute Auto 0.9 K/mm3 (0.1-0.6); Monocytes Percent Auto 4.4 % (2.6-8.5); Neutrophils Absolute Auto 16.8 K/mm3 (1.3-6.7); Neutrophils Percent Auto 85.4 % (45.5-73.1); Platelet Count Result 329 k/mm3 (150-375); Red Blood Count 4.99 M/mm3 (4.2-5.4); Red Cell Distribution Width 18.8 % (11.5-14.5); White Blood Count 19.7 K/mm3 (4.5-10.0)
[2024-03-10 10:38] LABS: Lactic Acid Reflex 11.8 mmol/L (0.7-2.0)
[2024-03-10 10:39] LABS: Fractional Inspired Oxygen 21 %; HCO3 VBG 16.1 mEq/l (24.0-30.0); PO2 VBG 66.8 mmHg (35.0-45.0); pH VBG 7.388 (7.300-7.400)
[2024-03-10 10:41] LABS: Albumin Level 4.6 g/dL (3.5-5.1); Alkaline Phosphatase 170 U/L (38-126); Anion Gap 24 mmol/L (4-12); Aspartate Amino Transferase 42 U/L (14-36); Bilirubin,Total 0.4 mg/dL (0.2-1.3); Blood Urea Nitrogen 8 mg/dL (7-17); Calcium 8.8 mg/dL (8.4-10.2); Carbon Dioxide 14 mmol/L (22-30); Chloride 98 mmol/L (98-107); Estimated CRCL calculation 127 ml/min; Estimated Glomerular Filt Rate > 60; Glucose 452 mg/dL (65-110); Potassium 3.6 mmol/L (3.4-5.0); Sodium 136 mmol/L (137-145)
[2024-03-10] MEDS: MAGNESIUM SULF 2 GM/WATER 50ML 2 GM/50 ML BAG IVPB (10:41)
[2024-03-10 10:42] LABS: Device ROOM AIR; PCO2 VBG 27.4 mmHg (42.0-48.0)
--- NOTE | 2024-03-10 10:46 | PC.NURSE ---
Pt attempting to crawl out of bed, stating she needs a drink of water, asking staff in room to let her drink out of the sink. Pt attempted to be re-directed into bed, pt resisting staff. Pt now c/o needing to use restroom. Pt assisted into bathroom by ED RN and tech, pt attempted to drink out of bathroom sink. Pt withdrawn from sink, assisted to toilet to use restroom and collect urine sample. pt re-directed into bed, bed alarm placed. Pt continuing to dry heave and have repeated episodes of emesis. Pt educated cannot have anything by mouth d/t emesis. at bedside furthering education. EDP Dr. Crowell
[2024-03-10 10:47] LABS: Ethanol 108 mg/dL (<10); Troponin I < 0.012 ng/mL (0.000-0.034)
[2024-03-10 10:48] LABS: Alanine Aminotransferase 37 U/L (6-35)
[2024-03-10 10:50] LABS: Add Urine Microscopic? YES; Appearance Urine Clear (Clear); Bacteria Urine None Seen /hpf; Bilirubin Urine Negative (Negative); Blood Urine 1+ (Negative); Color Urine Yellow (Yellow); Glucose Urine UA 3+ mg/dL (Negative); Ketones Urine 2+ mg/dL (Negative); Leukocyte Esterase Ur Negative LEU/UL (Negative); Need Manual Microscopic Reviewed; Nitrate Urine Negative (Negative); Non Pathogenic Casts 0-2; Protein Urine Trace mg/dL (Negative); RBC Urine 0-2 /hpf (0-2); Specific Grav Ur 1.032 (1.001-1.035); Squamous Epithelial Cell Urine Few /hpf (Few); Urobilinogen Urine 0.2 mg/dL (<2.0); WBC Urine 0-5 /hpf (0-3); pH Urine 5.5 (5.0-9.0)
[2024-03-10 11:14] LABS: Creatine Kinase 176 U/L (30-135)
[2024-03-10 11:15] LABS: Acetaminophen < 10 ug/mL (10-30); Salicylate < 1.0 mg/dL (2-20)
--- NOTE | 2024-03-10 11:21 | PC.NURSE ---
pt attempted to crawl out of bed again. chief transfer and pumphouse operator has been called for the pt safety
--- NOTE | 2024-03-10 11:24 | PC.NURSE ---
call and bed alarm going off, pt found in room drinking out of sink. Pt redirected into bed, repositioned and educated about stop drinking from the sink. Sitter called and at bedside for safety risk.
[2024-03-10] MEDS: PHENobarbitaL sodium (*CRX) 130 MG/ML VIAL 160 MG IV PUSH (12:22)
[2024-03-10 13:16] LABS: Anion Gap 21 mmol/L (4-12); Blood Urea Nitrogen 9 mg/dL (7-17); Carbon Dioxide 16 mmol/L (22-30); Chloride 101 mmol/L (98-107); Estimated CRCL calculation 127 ml/min; Estimated Glomerular Filt Rate > 60; Glucose 393 mg/dL (65-110); Potassium 3.9 mmol/L (3.4-5.0); Sodium 138 mmol/L (137-145)
--- NOTE | 2024-03-10 13:18 | PM.IMHP ---
H&P: HPI History of Present Illness Date/Time: 03/10/24 15:00 Chief Complaint: Vomiting. Narrative: This is a 43-year-old female with history of type 1 diabetes mellitus, diabetic ketoacidosis, alcohol withdrawal seizures, depression, anxiety, and pancreatitis who presented to the emergency department via EMS for evaluation of vomiting. She has someone after receiving phenobarbital and some of the following history is supplemented via a review of her EMR. It is my understanding that the police were called to the patient's home this morning for some sort of disturbance and they in turn called EMS as the patient was retching continuously and smelled of alcohol. The patient stated she had been vomiting for at least 2 or 3 hours and complained of generalized discomfort. She reports that her last drink was sometime earlier this morning and she reportedly had a handle of vodka over the last 24 hours. She endorses anxiety and shakes but does not think she had a seizure today. She denies headache, focal weakness, paresthesias, cold and flu symptoms, chest pain, shortness a breath, current abdominal pain, diarrhea, dysuria, melena, hematochezia, and hematemesis. In the ED: Vital signs were stable on arrival. Labs were significant for WBC count of 19.7, sodium 136, carbon dioxide 14, anion gap 24, creatinine 0.50, glucose 452, lactic acid 11.8, AST 42, ALT 37, alkaline phosphatase 170, beta hydroxybutyrate 1.98. Urinalysis was positive for 3+ glucose, 2+ ketones, and 1+ blood. pH on venous blood gas was 7.388, pCO2 of 27.4, HC03 16.1. Head CT was without acute intracranial process. Chest x-ray showed no acute cardiopulmonary disease. She received a 3 L normal saline bolus, haloperidol 5 mg IV, magnesium sulfate 2 g, phenobarbital 160 mg IV, and 8 units subQ NovoLog. She is being admitted in this setting for further treatment and close monitoring. Review of Systems Review of Systems: 12 systems were reviewed and are negative except for as per HPI. [facility] Past Medical History Medical History Anxiety Bipolar disorder Chronic pancreatitis Depression DVT (deep venous thrombosis) Dyslipidemia Hepatitis Necrotizing pancreatitis Neuropathy Type 1 diabetes mellitus Surgical History Surgical History History of section 2004, 2010, 2016 History of ERCP (06/2019) History of surgery on arm (2019) Left History of tubal ligation History of wisdom tooth extraction Family History Family History Mother Diabetes mellitus Family history of coronary artery disease Family history of dementia Social History Social History Social History: Surrogate medical decision maker: Billy Wright, friend. Code status: Full code. Smoking packs per day: 0.5 Smoking cigarettes per day: 10.0 Years smoked: 15 Smoking pack-years: 7.50 Smoking status: Current every day smoker Tobacco type: cigarettes Second hand tobacco smoke exposure: Yes Additional smoking assessment comments: quit 4 months ago Alcohol intake: current Drinks per week: 50 Substance use: current Substance use type: marijuana Last use: 03/10/2024 Do You Feel Safe in your Home?: Yes Lack of Transportation: No Lack of Food: Sometimes True Current Housing: I Have Housing Concerned About Future Housing: Decline to Answer Difficulty Paying Gas/Electric Bills: Decline to Answer Difficulty Paying for Meds: Decline to Answer Currently Unemployed: Decline to Answer Education: Decline to Answer Difficulty w/ Childcare or Family Care: Decline to Answer Additional occupation/education comments: Unemployed. Spiritual care concerns: No Meds Home Medications and Allergies Home Medications Medication Instructions R
[2024-03-10 13:20] LABS: Beta-Hydroxybutyrate/Acetoacetate 1.98 mmol/L (0.02-0.27)
[2024-03-10 13:22] LABS: Lactic Acid Reflex 6.7 mmol/L (0.7-2.0)
[2024-03-10 13:22] LABS: Reflex Lactic Acid Yes or No Add Lactic
[2024-03-10] MEDS: INSULIN ASPART (*BKC) 100 UNITS/ML 8 UNITS SUB-Q (13:45)
[2024-03-10] MEDS: SODIUM CHLORIDE 0.9% IV 1,000 ML 999 ML IV CONT (13:48)
--- NOTE | 2024-03-10 14:32 | ADMGEN ---
This patient, Marisa Lott, was admitted to IMU Room 214-01. Patient/family oriented to hospital policies and general routines including ID bracelet, bed and alarms, visiting hours, pain management, procedures, bathroom and other care routines, personal items, smoking policy, room service/diet, and visiting hours. Information on how to activate the Rapid Response Team has been discussed. Patient/Family are encouraged to report perceived risks to care and to ask questions if they do not understand what they are told or what they should do. Patient arrived to the unit at 1425.
[2024-03-10 14:55] LABS: Glucose Point of Care 359 mg/dl (65-105)
[2024-03-10] MEDS: SODIUM CHLORIDE 0.9% IV 1,000 ML 150 ML IV CONT ×2 (15:44→23:11)
[2024-03-10] MEDS: THIAMINE HCL 200 MG/2 ML VIAL 100 MG IV PUSH (15:45)
[2024-03-10 16:38] LABS: Hemoglobin A1C 12.4 % (<5.7)
[2024-03-10 16:51] LABS: Amphetamine Screen Urine Negative (Negative); Barbiturate Screen Urine Positive (Negative); Benzodiazepines Screen Urine Negative (Negative); Cannabinoid Screen Urine Positive (Negative); Cocaine Screen Urine Negative (Negative); Methadone Screen Urine Negative (Negative); Opiate Screen Urine Negative (Negative); Phencyclidine Screen Urine Negative (Negative)
[2024-03-10] MEDS: LORazepam INJ (*CRX) 2 MG/ML VIAL IV PUSH (17:46)
[2024-03-10] MEDS: PREGABALIN (*CRX) 50 MG CAPSULE 200 MG PO (17:47)
[2024-03-10] MEDS: INSULIN ASPART (*BKC) 100 UNITS/ML SUB-Q (17:57)
[2024-03-10 18:00] LABS: Anion Gap 10 mmol/L (4-12); Blood Urea Nitrogen 9 mg/dL (7-17); Calcium 7.5 mg/dL (8.4-10.2); Carbon Dioxide 23 mmol/L (22-30); Chloride 102 mmol/L (98-107); Estimated CRCL calculation 155 ml/min; Estimated Glomerular Filt Rate > 60; Glucose 295 mg/dL (65-110); Potassium 4.2 mmol/L (3.4-5.0); Sodium 135 mmol/L (137-145)
[2024-03-10 18:01] LABS: Lactic Acid 2.6 mmol/L (0.7-2.0)
[2024-03-10 18:05] LABS: Glucose Point of Care 294 mg/dl (65-105)
[2024-03-10 20:45] LABS: Glucose Point of Care 262 mg/dl (65-105)
[2024-03-10] MEDS: CARBIDOPA/LEVODOPA 25/100 MG TABLET 2 TABLET BY MOUTH (20:45)
[2024-03-10] MEDS: INSULIN GLARGINE (*BKC) 100 UNITS/ML 35 UNITS SUB-Q (20:45)
[2024-03-10] MEDS: hydrOXYzine pamoate 25 MG CAPSULE PO (20:45)
[2024-03-11] VITALS (15 sets, daily range): BP systolic 115–149; BP diastolic 59–80; PULSE 90–111; RESP 14–20; TEMP 36.5–37.4; O2SAT 96–98
[2024-03-11 00:36] LABS: Glucose Point of Care 249 mg/dl (65-105)
[2024-03-11] MEDS: INSULIN ASPART (*BKC) 100 UNITS/ML SUB-Q ×3 (01:15→16:42)
[2024-03-11] MEDS: ACETAMINOPHEN 325 MG TABLET 650 MG PO ×2 (03:07→14:59)
[2024-03-11] MEDS: chlordiazePOXIDE (*CRX) 10 MG CAPSULE PO ×2 (03:08→08:51)
[2024-03-11 05:19] LABS: Basophils Percent Auto 0.2 % (0.2-1.2); Eosinophils Absolute Auto 0.1 K/mm3 (0-0.3); Eosinophils Percent Auto 0.7 % (0-4.4); Hematocrit 32.4 % (37.0-47.0); Hemoglobin 10.3 g/dL (12.0-15.0); Immature Granulocyte Absolute 0.05 K/mm3 (0.00-0.031); Immature Granulocyte Percent A 0.4 % (0-0.5); Lymphocytes Percent Auto 19.7 % (18.3-44.2); Mean Corpuscular HGB Conc 31.8 g/dl (32-36); Mean Corpuscular Hemoglobin 24.4 pg (26-34); Mean Corpuscular Volume 76.8 fl (80-100); Mean Platelet Volume 9.5 fl (7.4-10.4); Monocytes Percent Auto 7.9 % (2.6-8.5); Neutrophils Absolute Auto 8.7 K/mm3 (1.3-6.7); Neutrophils Percent Auto 71.1 % (45.5-73.1); Platelet Count Result 222 k/mm3 (150-375); Red Blood Count 4.22 M/mm3 (4.2-5.4); Red Cell Distribution Width 18.8 % (11.5-14.5); White Blood Count 12.2 K/mm3 (4.5-10.0)
[2024-03-11 05:34] LABS: Alanine Aminotransferase 11 U/L (6-35); Albumin Level 3.3 g/dL (3.5-5.1); Alkaline Phosphatase 118 U/L (38-126); Anion Gap 4 mmol/L (4-12); Aspartate Amino Transferase 32 U/L (14-36); Bilirubin,Total 0.4 mg/dL (0.2-1.3); Blood Urea Nitrogen 10 mg/dL (7-17); Calcium 7.3 mg/dL (8.4-10.2); Carbon Dioxide 29 mmol/L (22-30); Chloride 104 mmol/L (98-107); Estimated CRCL calculation 155 ml/min; Estimated Glomerular Filt Rate > 60; Glucose 126 mg/dL (65-110); Lipase 21 U/L (23-300); Potassium 3.3 mmol/L (3.4-5.0); Sodium 137 mmol/L (137-145)
[2024-03-11] MEDS: SODIUM CHLORIDE 0.9% IV 1,000 ML 150 ML IV CONT (06:44)
[2024-03-11] MEDS: FOLIC ACID 1 MG TABLET PO (08:51)
[2024-03-11] MEDS: POTASSIUM CHLORIDE 20 MEQ PACKET (FOR LIQUID) 40 MEQ PO (08:51)
[2024-03-11] MEDS: THIAMINE HCL 100 MG TABLET PO (08:51)
[2024-03-11] MEDS: PREGABALIN (*CRX) 50 MG CAPSULE 200 MG PO ×3 (08:51→16:45)
[2024-03-11] MEDS: DULoxetine HCL 60 MG CAPSULE.DR BY MOUTH (08:52)
[2024-03-11 11:32] LABS: Glucose Point of Care 295 mg/dl (65-105)
--- NOTE | 2024-03-11 17:29 | PM.IMPN ---
Progress Note: A&P Assessment and Plan (1) Alcohol withdrawal: Qualifiers: Complication of substance-induced condition: with unspecified complication Qualified Code(s): F10.239 - Alcohol dependence with withdrawal, unspecified Code(s): F10.239 - Alcohol dependence with withdrawal, unspecified Status: Acute Assessment and Plan: Patient presents with altered mental status and persistent vomiting. She presumably drank a handle of vodka over the last 24 hours and was showing signs of withdrawal; she was given haldol and phenobarbital in the ED with improvement. Head CT showing was normal. CXR was clear. EKG showing normal sinus and borderline ST changes. WBC 19.7 but better today. Lactic acid was 11.8. No fevers. Glucose was 42 with serum bicarb 14 and anion gap 24. BHOB was 1.98. Vomiting could be related to alcohol, alcohol withdrawal and/or mild diabetic ketoacidosis. Lactic acidosis could be related to seizure prior to admission. She has a hx of alcohol withdrawal seizures She was started on IV fluids. Insulin given. Monitored on CIWA protocol. Thiamine and folate started. Glucose better. Anion gap closed. Eating normally Follow (2) Lactic acidosis: Code(s): E87.20 - Acidosis, unspecified Status: Acute Assessment and Plan: As above. Possibly related to unrecognized withdrawal seizure. Lactic trended down (3) Ketoacidosis: Code(s): E87.29 - Other acidosis Status: Acute Assessment and Plan: Related to above. (4) Type 1 diabetes mellitus: Code(s): E10.9 - Type 1 diabetes mellitus without complications Status: Acute Assessment and Plan: A1c 12,4% The patient's blood glucose was reviewed on 03/11 Glucose remains elevated at times. Continue AccuCheks covering with sliding scale. Hypoglycemia protocol available as needed. Continue to monitor (5) Mouth abscess: Code(s): K12.2 - Cellulitis and abscess of mouth Status: Acute Assessment and Plan: Noted mouth abscess that is actively draining. WBC trending down already and felt leukocytosis related to above and not from infections. This is long standing and she has an appointment with dentist for definitive treatment. Will start Unasyn and have her do Peridex rinse/spit. Home with Augmentin Plan Anemia - microcytic. Check iron studies. DVT prophylaxis - SCDs Code status - full Subjective Date/time seen: 03/11/24 17:29 Interval history: 43yo female with DM Type I, alcohol withdrawal seizures, depression, anxiety, and pancreatitis who presented to the emergency department via EMS for evaluation of vomiting. She feels much better. Eating okay. She has a tooth abscess that is draining and is requesting abx. SHe is schedueld to see the dentist on 03/21. Exam Narrative: AF 98.6 149/80 94 18 98% ra Gen - NARD HEENT - left upper frontal tooth is broken with soft tissue swelling medial. Able to express some purulent mat'l Chest - CTA bilaterally, nml RR CV - RRR S1/S2. tele showing no significant dysrhythmias Abd - Soft, NT/ND, Positive BS - Weathers secured draining clear yellow urine Ext - No pedal edema Psych - Nml mood and affect Skin - Warm and dry Objective Data Vital Signs Vital Signs: Vital Signs - 24 hr 03/10/24 18:00 03/10/24 19:59 03/10/24 20:00 Temperature 99.6 F Pulse Rate 108 H 112 H 114 H Respiratory Rate 20 Blood Pressure 111/48 L Pulse Oximetry 98 Oxygen Delivery 03/10/24 20:00 03/11/24 00:28 03/10/24 22:00 Temperature 98.6 F Pulse Rate 109 H 103 H Respiratory Rate 20 Blood Pressure 115/59 L Pulse Oximetry 96 Oxygen Delivery Room Air 03/11/24 00:00 03/11/24 00:00 03/11/24 02:00 Temperature Pulse Rate 111 H 104 H Respiratory Rate Blood Pressure Pulse Oximetry Oxygen Delivery Room Air 03/11/24 04:00 03/11/24 04:00 03/11/24 04:00 Temperature 98.
[2024-03-11 17:31] LABS: Glucose Point of Care 378 mg/dl (65-105)
[2024-03-11] MEDS: hydrOXYzine pamoate 25 MG CAPSULE PO (20:27)
[2024-03-11] MEDS: CARBIDOPA/LEVODOPA 25/100 MG TABLET 2 TABLET BY MOUTH (20:27)
[2024-03-11] MEDS: AMPICILLIN SULB 3 GM/NS 100 ML 3 GM/100 ML VIAL IVPB (20:27)
[2024-03-11] MEDS: CHLORHEXIDINE GLUCONATE 0.12% ORAL RINSE 473 ML BTL (*BKC) 15 ML SWISH/SPIT (20:27)
[2024-03-11] MEDS: INSULIN GLARGINE (*BKC) 100 UNITS/ML 35 UNITS SUB-Q (20:27)
[2024-03-11] MEDS: LORazepam INJ (*CRX) 2 MG/ML VIAL 1 MG IV PUSH (20:28)
[2024-03-11 20:32] LABS: Glucose Point of Care 309 mg/dl (65-105)
--- NOTE | 2024-03-11 22:07 | PC.NURSE ---
Pt. transferred to [facility] & report was given to Mel Hameed [id number]
[2024-03-12 00:18] LABS: Glucose Point of Care 308 mg/dl (65-105)
[2024-03-12] MEDS: AMPICILLIN SULB 3 GM/NS 100 ML 3 GM/100 ML VIAL IVPB ×2 (00:18→05:45)
[2024-03-12] MEDS: INSULIN ASPART (*BKC) 100 UNITS/ML SUB-Q (00:19)
[2024-03-12 05:40] VITALS: BP 128/75; PULSE 66; RESP 16; TEMP 36.9; O2SAT 98
[2024-03-12 05:52] LABS: Hematocrit 32.6 % (37.0-47.0); Hemoglobin 9.8 g/dL (12.0-15.0); Mean Corpuscular HGB Conc 30.1 g/dl (32-36); Mean Corpuscular Hemoglobin 23.8 pg (26-34); Mean Corpuscular Volume 79.3 fl (80-100); Mean Platelet Volume 9.7 fl (7.4-10.4); Platelet Count Result 177 k/mm3 (150-375); Red Blood Count 4.11 M/mm3 (4.2-5.4); Red Cell Distribution Width 18.7 % (11.5-14.5)
[2024-03-12 06:04] LABS: Anion Gap 4 mmol/L (4-12); Blood Urea Nitrogen 7 mg/dL (7-17); Calcium 7.8 mg/dL (8.4-10.2); Carbon Dioxide 27 mmol/L (22-30); Chloride 106 mmol/L (98-107); Estimated CRCL calculation 159 ml/min; Estimated Glomerular Filt Rate > 60; Glucose 141 mg/dL (65-110); Potassium 3.5 mmol/L (3.4-5.0); Sodium 137 mmol/L (137-145)
[2024-03-12 06:10] LABS: Iron 29 ug/dL (37-170)
[2024-03-12 06:12] LABS: Glucose Point of Care 146 mg/dl (65-105)
[2024-03-12 06:21] LABS: Percent Iron Saturation 7 % (20-50)
[2024-03-12 06:47] LABS: Ferritin 9.59 ng/mL (6.24-137)
[2024-03-12 07:20] LABS: Folic Acid > 20.0 ng/mL (2.76->20)
[2024-03-12] MEDS: CHLORHEXIDINE GLUCONATE 0.12% ORAL RINSE 473 ML BTL (*BKC) 15 ML SWISH/SPIT (09:21)
[2024-03-12] MEDS: THIAMINE HCL 100 MG TABLET PO (09:21)
[2024-03-12] MEDS: PREGABALIN (*CRX) 50 MG CAPSULE 200 MG PO (09:21)
[2024-03-12] MEDS: DULoxetine HCL 60 MG CAPSULE.DR BY MOUTH (09:21)
[2024-03-12] MEDS: FOLIC ACID 1 MG TABLET PO (09:21)
--- NOTE | 2024-03-12 10:53 | PM.DS ---
DS: Admitting Diagnosis Discharge Date 03/12/24 Admitting Diagnosis Altered mental status DS: Discharge Diagnosis Discharge Diagnosis (1) Alcohol withdrawal: Qualifiers: Complication of substance-induced condition: with unspecified complication Qualified Code(s): F10.239 - Alcohol dependence with withdrawal, unspecified Code(s): F10.239 - Alcohol dependence with withdrawal, unspecified Status: Acute (2) Lactic acidosis: Code(s): E87.20 - Acidosis, unspecified Status: Acute (3) Ketoacidosis: Code(s): E87.29 - Other acidosis Status: Acute (4) Type 1 diabetes mellitus: Code(s): E10.9 - Type 1 diabetes mellitus without complications Status: Acute (5) Mouth abscess: Code(s): K12.2 - Cellulitis and abscess of mouth Status: Acute DS: Summary Hospital Course Reason for hospitalization: 43yo female with DM Type I, alcohol withdrawal seizures, depression, anxiety, and pancreatitis who presented to the emergency department via EMS for evaluation of vomiting. Please see H&P for details. Hospital Course: Patient presents with altered mental status and persistent vomiting. She presumably drank a handle of vodka over the last 24 hours and was showing signs of withdrawal; she was given haldol and phenobarbital in the ED with improvement. Head CT showing was normal. CXR was clear. EKG showing normal sinus and borderline ST changes. WBC 19.7 but normalized on repeat. Lactic acid was 11.8 and trended down. No fevers. Glucose was 452 with serum bicarb 14 and anion gap 24. BHOB was 1.98. Vomiting could be related to alcohol, alcohol withdrawal and/or mild diabetic ketoacidosis. Lactic acidosis could be related to seizure prior to admission. She has a hx of alcohol withdrawal seizures. She was started on IV fluids. Insulin given. She was monitored on CIWA protocol. Thiamine and folate started. Glucose better. Anion gap closed. She became more awake and alert. She is eating normally. A1c 12.4% The patient's blood glucose was monitored with AccuCheks covering with sliding scale. Hypoglycemia protocol was available as needed. Noted mouth abscess that was actively draining. WBC trending down already and felt leukocytosis related to above and not from infection. This is long standing and she has an appointment with dentist for definitive treatment. She was startedd on Unasyn and had her do Peridex rinse/spit. Home with Augmentin.Microcytic anemia noted and she is iron deficeint. She will need further evaluation and treatment after discharge. She overall did well and was able to be discharged home on 03/12/24. Status at Discharge Cognitive/behavioral status at discharge: stable Time Spent with Patient Time attestation: Total time spent providing and/or coordinating discharge services: 35 minutes Time spent: Greater than 30 minutes Exam Narrative: AF 98.4 128/75 66 16 98% ra Gen - NARD HEENT - left upper frontal tooth is broken with soft tissue swelling medial soft palate Chest - CTA bilaterally, nml RR CV - RRR S1/S2 Abd - Soft, NT/ND, Positive BS Ext - No pedal edema Psych - Nml mood and affect Skin - Warm and dry DS: Data Data Completed and Pending Labs on day of discharge: Labs from last 24 hours 03/12/24 03/12/24 03/12/24 05:43 05:31 00:15 WBC 6.0 RBC 4.11 L Hgb 9.8 L Hct 32.6 L MCV 79.3 L MCH 23.8 L MCHC 30.1 L RDW 18.7 H Plt Count 177 MPV 9.7 Sodium 137 Potassium 3.5 Chloride 106 Carbon Dioxide 27 Anion Gap 4 BUN 7 Creatinine 0.40 L Estim Creat Clear Calc 159 Estimated GFR > 60 Glucose 141 H POC Capillary Glucose 146 H 308 H Calcium 7.8 L Iron 29 L TIBC 401 % Saturation 7 L Ferritin 9.59 Vitamin B12 638.0 Folate > 20.0 H 03/11/24 03/11/24 03/11/24 20:08 16:31 11:27 WBC RBC Hgb Hct MCV MCH MCHC RDW
[2024-03-12] MEDS: ACETAMINOPHEN 325 MG TABLET 650 MG PO (11:37)
[2024-03-13 14:24] LABS: BEDSIDEPREGUCG Negative (Negative)
[2024-03-20 12:38] LABS: Glucose Point of Care 448 mg/dl (65-105)
== END 2024-03-12 12:16 | disposition home or self-care (01) | DRG 775 ==
LOC: ANHED 13:43 → ANHIMU 14:13 → ANH3MED 03-11 22:28
PROVIDERS: Physician Assistant; Admitting Provider Internal Medicine; Emergency Provider Preventive Medicine Aerospace Medicine; Visit Provider Internal Medicine
DX: F10.239 Alcohol dependence with withdrawal, unspecified (principal); K86.1 Other chronic pancreatitis; E10.40 Type 1 diabetes mellitus with diabetic neuropathy, unspecified; E10.10 Type 1 diabetes mellitus with ketoacidosis without coma; E78.5 Hyperlipidemia, unspecified; K04.7 Periapical abscess without sinus; F41.9 Anxiety disorder, unspecified; F31.9 Bipolar disorder, unspecified; F17.210 Nicotine dependence, cigarettes, uncomplicated; Z79.4 Long term (current) use of insulin; Z86.718 Personal history of other venous thrombosis and embolism
CPT/HCPCS: 36415; 70450; 71045; 80048; 80053; 80076; 80307; 81001; 81025; 82010; 82550; 82607; 82728; 82746; 82803; 82948; 83036; 83540; 83550; 83605; 83690; 83735; 84484; 85025; 85027; 93005; 96361; 96365; 96366; 96375; 99285; A4248; A9270; G0378; J0295; J1630; J1815; J2060; J2560; J3411; J3475; J7030

== ENCOUNTER 2024-06-25 01:28 | Inpatient (IN) | payer BC, SELFPAY ==
[2024-06-25] VITALS (76 sets, daily range): BP systolic 86–154; BP diastolic 33–89; PULSE 79–130; RESP 0–38; TEMP 32.9–36.9; O2SAT 92–100; BMI 31.8
--- NOTE | ~2024-06-25 | XR_ITS ---
XR chest port-a-cath/central DATE: 06/25/2024 04:59 INDICATION: Central line placement TECHNIQUE: Portable AP chest on 06/25/2024 at 0458 hours COMPARISON: 06/25/2024 portable supine AP chest FINDINGS: Interval placement of right internal jugular central venous catheter, the tip overlying the upper right atrium. No evidence of pneumothorax. ET and NG tubes appear in satisfactory position. Cardiomegaly. There is pulmonary vascular congestion. There are mild bilateral pulmonary infiltrates, more prominent centrally, greater on the right, suggesting pulmonary edema. Pneumonia is not exclude d. There is thickening of the minor fissure consistent with subpleural edema less likely fluid in the fi ssure. Plate and screws of proximal left humerus. IMPRESSION: Right internal jugular central venous catheter placement in right atrium; no pneumothorax Congestive changes, pulmonary edema, mildly increased since 06/25/2024 Reviewed, dictated and finalized at [facility]. Reviewed, dictated and finalized at location [facility]. MAKER IMPRESSION: Right internal jugular central venous catheter placement in right a trium; no pneumothorax Congestive changes, pulmonary edema, mildly increased since 06/25/2024
--- NOTE | ~2024-06-25 | XR_ITS ---
XR chest 1V portable DATE: 06/25/2024 02:02 INDICATION: Intubation TECHNIQUE: Portable supine AP chest on 06/25/2024 0144 hours COMPARISON: 03/10/24 AP chest FINDINGS: ET tube in satisfactory position. Borderline heart size with a heart size is not optimally evaluated on AP projection because of magnif ication. There is mild infiltrate right mid to upper lung. Mild infiltrate or atelectasis is suggested in the left lower lobe. No pleural effusion or pulmonary vascular congestion or pneumothorax. Plate and screws of proximal left humerus. IMPRESSION: ET tube in satisfactory position Mild infiltrate and/or atelectasis in the right mid to upper and left lower lung carrero Reviewed, dictated and finalized at location [facility]. RA ASSEMBLER IMPRESSION: ET tube in satisfactory position Mild infiltrate and/or atelectasis in the right mid to upper and left lower otf g carrero
--- NOTE | ~2024-06-25 | XR_ITS ---
Portable chest x-ray Comparison: 06/27/2024 Clinical History: Respiratory failure Findings: Right IJ line in place. There is worsening central congestive change and mild haziness, co mpatible mild pulmonary edema. Cardiomediastinal silhouette is stable. Bones and soft tissues are un remarkable. Impression: Mild developing pulmonary edema and central congestive change. Right IJ line in place. Reviewed, dictated and finalized at location . ICATION SUPPORT ADMINISTRATOR Impression: Mild developing pulmonary edema and central congestive change. Right IJ line in place.
--- NOTE | ~2024-06-25 | XR_ITS ---
Portable chest x-ray Comparison: 06/25/2024 Clinical History: Respiratory failure Findings: Endotracheal tube, NG tube, and right IJ line are unchanged. Lungs are clear, without foca l consolidation or pleural effusion. Cardiomediastinal silhouette is stable. Bones and soft tissues are unremarkable. Impression: Clear lungs. Stable support tubes. Reviewed, dictated and finalized at location . LUTE PROFESSIONAL Impression: Clear lungs. Stable support tubes.
--- NOTE | ~2024-06-25 | CT_ITS ---
CTA brain carotid Ordering provider: Milton Norris History: . ams . Comparison: Reference is made to multiple CT examinations of the brain dated 03/10/2024 and dating sam k to 03/03/2023 Technique: CT angiogram head and neck was performed following timed intravenous injection of contrast . Thin slice axial images and reformatted coronal images were obtained. Three dimensional reformatted images of the brain were also obtained using a [employer] workstation. DLP: 1755 mGy-cm FINDINGS: HEAD: --ANTERIOR AND MIDDLE CEREBRAL ARTERIES AND BRANCHES: Normal caliber and contour. --INTERNAL CAROTID ARTERIES: No significant atheromatous disease and no significant stenosis. No occl usion. --BASILAR ARTERY AND BRANCHES: Normal caliber and contour. No atheromatous disease. --POSTERIOR CEREBRAL ARTERIES: Normal caliber and contour --POSTERIOR COMMUNICATING ARTERIES: Patent on the left. 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 --ANEURYSM: None visualized. --BRAIN: The ventricles are normal in size, shape and position. There is no mass, mass effect or midline shift. There is no abnormal extra-axial fluid collection or intracranial hemorrhage. Mucoperiosteal thickening within the left maxillary sinus. Remaining paranasal sinuses are clear The mastoid air cells are well aerated. No acute displaced fractures within the overlying cranium. NECK: --RIGHT CERVICAL CAROTID SYSTEM: Trace atheromatous disease of the carotid bulb and proximal internal carotid artery without significant stenosis. Percent stenosis per NASCET criteria is 0%. No carotid dissection. --LEFT CERVICAL CAROTID SYSTEM: Mild atheromatous disease of the carotid bulb and proximal left inter nal carotid artery without significant stenosis. Percent stenosis per NASCET criteria is 0% No carot id dissection. --VERTEBRAL ARTERIES: Normal caliber and contour. --VISUALIZED AORTIC ARCH AND BRANCHING VESSELS: Trace atheromatous disease without significant stenos is. --SOFT TISSUES: Unremarkable0 --CERVICAL SPINE: No significant degenerative disease. No acute fracture. IMPRESSION: 1. Normal CTA head and neck. Percent stenosis per NASCET criteria is 0% 2. No acute intracranial hemorrhage or suspicious mass effect. Reviewed, dictated and finalized at location [facility]. CONDENSER
--- NOTE | ~2024-06-25 | XR_ITS ---
XR abdomen gastric tube insert DATE: 06/25/2024 06:17 INDICATION: New orogastric tube placement TECHNIQUE: Portable supine AP abdomen on one sagittal sagittal and 25 0608 hours COMPARISON: None FINDINGS: Orogastric tube tip overlies the gastric antrum. No bowel obstruction is evident. Prominent amount of fecal material in the colon. The lower lung zones appear clear. IMPRESSION: Orogastric tube tip overlies gastric antrum Reviewed, dictated and finalized at [facility]. Reviewed, dictated and finalized at location [facility]. [place] ASSOCIATE
--- NOTE | ~2024-06-25 | XR_ITS ---
Portable chest x-ray Comparison: 06/26/2024 Clinical History: Respiratory failure Findings: Right IJ line remains in place. Lungs are clear, without focal consolidation or pleural ef fusion. Cardiomediastinal silhouette is stable. Bones and soft tissues are unremarkable. Impression: Clear lungs. Right IJ line. Reviewed, dictated and finalized at location . RAME DESIGN ENGINEER Impression: Clear lungs. Right IJ line.
--- NOTE | ~2024-06-25 | XR_ITS ---
XR abdomen gastric tube insert DATE: 06/25/2024 02:02 INDICATION: Orogastric tube placement TECHNIQUE: Portable supine AP view on 06/25/2024 at 0158 hours COMPARISON: None FINDINGS: Orogastric tube tip overlies the gastric antrum. There are are multiple nondilated gas containing small bowel segments. There is a prominent amount of fecal material within the descending colon, hepatic flexure and transverse colon. IMPRESSION: Orogastric tube tip in gastric antrum Reviewed, dictated and finalized at [facility]. Reviewed, dictated and finalized at location [facility]. NESS SERVICES CLERK
[2024-06-25] MEDS: MIDAZOLAM 100MG/NS 100ML(*CRX) 100 MG/100 ML BAG IV CONT (01:17)
[2024-06-25] MEDS: DEXTROSE 50% 25 GM/50 ML SYRINGE IV PUSH ×6 (01:17→05:48)
[2024-06-25] MEDS: SODIUM CHLORIDE 0.9% IV 1,000 ML 999 ML IV CONT ×3 (01:17→03:48)
[2024-06-25] MEDS: FENTANYL 2,500MCG/NS250ML(*CRX 2,500 MCG/250 ML BAG IV CONT (01:17)
[2024-06-25] MEDS: MIDAZOLAM HCL (*CRX) 2 MG/2 ML VIAL 5 MG IV PUSH ×5 (01:30→06:11)
[2024-06-25 01:36] LABS: Estimated Glomerular Filt Rate > 60
[2024-06-25 01:44] LABS: Basophils Percent Auto 0.2 % (0.2-1.2); Eosinophils Absolute Auto 0.2 K/mm3 (0-0.3); Eosinophils Percent Auto 1.7 % (0-4.4); Hematocrit 40.6 % (37.0-47.0); Hemoglobin 13.3 g/dL (12.0-15.0); Immature Granulocyte Absolute 0.07 K/mm3 (0.00-0.031); Immature Granulocyte Percent A 0.5 % (0-0.5); Lymphocytes Absolute Auto 3.27 K/mm3 (0.9-3.2); Lymphocytes Percent Auto 24.3 % (18.3-44.2); Mean Corpuscular HGB Conc 32.8 g/dl (32-36); Mean Corpuscular Hemoglobin 28.2 pg (26-34); Monocytes Absolute Auto 1.1 K/mm3 (0.1-0.6); Neutrophils Absolute Auto 8.8 K/mm3 (1.3-6.7); Neutrophils Percent Auto 65.3 % (45.5-73.1); Platelet Count Result 233 k/mm3 (150-375); Red Blood Count 4.72 M/mm3 (4.2-5.4); Red Cell Distribution Width 15.1 % (11.5-14.5); White Blood Count 13.5 K/mm3 (4.5-10.0)
[2024-06-25 01:55] LABS: Prothrombin Time 13.1 Seconds (11.1-14.7)
[2024-06-25 01:56] LABS: Partial Thromboplastin Time 27.8 Seconds (22.3-36.8)
[2024-06-25 01:59] LABS: Add Urine Microscopic? YES; Appearance Urine Clear (Clear); Bacteria Urine None Seen /hpf; Bilirubin Urine Negative (Negative); Blood Urine Negative (Negative); Calcium Oxalate Crystals Urine Present /hpf; Color Urine Dark Yellow (Yellow); Glucose Urine UA Negative (Negative); Hyaline Casts Urine Present /lpf; Ketones Urine Trace mg/dL (Negative); Leukocyte Esterase Ur Negative LEU/UL (Negative); Mucus Urine Present /lpf; Need Manual Microscopic Reviewed; Nitrate Urine Negative (Negative); Protein Urine 2+ mg/dL (Negative); RBC Urine 0-2 /hpf (0-2); Specific Grav Ur 1.023 (1.001-1.035); Squamous Epithelial Cell Urine Occasional /hpf (Few); Urobilinogen Urine 0.2 mg/dL (<2.0); WBC Urine 0-5 /hpf (0-3); pH Urine 5.5 (5.0-9.0)
[2024-06-25 02:00] LABS: Alanine Aminotransferase 44 U/L (6-35); Albumin Level 4.3 g/dL (3.5-5.1); Alkaline Phosphatase 116 U/L (38-126); Anion Gap 7 mmol/L (4-12); Aspartate Amino Transferase 62 U/L (14-36); Bilirubin,Total 0.5 mg/dL (0.2-1.3); Blood Urea Nitrogen 17 mg/dL (7-17); Calcium 9.2 mg/dL (8.4-10.2); Carbon Dioxide 30 mmol/L (22-30); Chloride 104 mmol/L (98-107); Estimated Glomerular Filt Rate > 60; Glucose < 30 mg/dL (65-110); Potassium 2.9 mmol/L (3.4-5.0); Sodium 141 mmol/L (137-145)
[2024-06-25 02:07] LABS: Alveolar/Arterial O2 Gradient 74.5 mmHg; Base Excess ABG -1.2 mEq/l (+/-2.0); Carboxyhemoglobin 1.8 % THb (0-2.0); Fractional Inspired Oxygen 30 %; HCO3 ABG 25.1 mEq/l (22.0-26.0); Methemoglobin ABG 0.1 %THb (0-1.5); Modified Allen's Test Pass; Oxygen Content ABG 16.3 %vol (16.0-22.0); Oxygen Saturation ABG 96.4 % (95.0-100.0); Oxyhemoglobin 94.4 % THb (90.0-100.0); PCO2 ABG 48.5 mmHg (35.0-45.0); PO2 ABG 91.2 mmHg (80.0-100.0); PO2 FiO2 Ratio Arterial Blood 3.04 %; Reduced Hemoglobin 3.7 %THb (0-5.0); Site Drawn RIGHT RADIAL; Total Hemoglobin 12.2 g/dL (12.0-18.0); pH ABG 7.332 (7.350-7.450)
[2024-06-25 02:08] LABS: Arterial Blood Gas PEEP 5 cmH2O; Arterial Blood Gas Tidal Volume 400 ml; Arterial Blood Gas Vent Mode CMV; Arterial Blood Gas Ventilator rate 18 /MIN; Device VENTILATOR
[2024-06-25 02:16] LABS: Magnesium 2.4 mg/dL (1.6-2.3)
--- NOTE | 2024-06-25 02:25 | ED.GENADULT ---
HPI - General Adult General Chief complaint: Altered Mental Status Stated complaint: unresponsive History of Present Illness HPI narrative: 44-year-old female presenting to the emergency department for evaluation after being found unresponsive. Patient is an insulin-dependent diabetic. Patient does have a prior history of suicide attempts, over the summer patient tried an intentional overdose Seroquel. Patient did have a family member that recently and the states the patient was unable to go to the . Today the patient told her that she was sorry before going to bed but did not explain what she was sorry for. went to check on the patient 30 minutes later and found that she had become unresponsive. He started CPR and called EMS. EMS was on scene for approximately 1 hour and brought the patient to the emergency department. Blood sugar was checked upon arrival to the emergency department found to be less than 20. Patient was not protecting her airway upon arrival to the ED and patient was intubated. Related Data Home Medications ?Medication ?Instructions ?Recorded ?Confirmed ?Last Taken ?Type insulin aspart U-100 100 unit/mL 1 sliding scale dose subcut 07/01/21 03/10/24 03/09/24 History subcutaneous solution (Novolog USEASDIRECTD U-100 Insulin aspart) insulin glargine 100 unit/mL 35 unit subcut HS 11/24/21 03/10/24 03/09/24 History subcutaneous solution (Lantus U-100 Insulin) pregabalin 100 mg capsule 200 mg PO TID 02/24/22 03/10/24 03/09/24 History albuterol sulfate 90 mcg/actuation 90 mcg inhalation DAILY 03/10/24 03/10/24 03/09/24 History aerosol inhaler carbidopa 25 mg-levodopa 100 mg See Rx Instructions .Route .COMPLEX 03/10/24 03/10/24 03/09/24 History tablet dextroamphetamine-amphetamine 30 30 mg PO DAILY 03/10/24 03/10/24 03/09/24 History mg tablet duloxetine 60 mg capsule,delayed See Rx Instructions .Route .COMPLEX 03/10/24 03/10/24 03/09/24 History release hydroxyzine pamoate 25 mg capsule 25 mg PO HS 03/10/24 03/10/24 03/09/24 History Allergies Allergy/AdvReac Type Severity Reaction Status Date / Time No Known Allergies Allergy Unknown Verified 06/25/24 07:47 Review of Systems Review of Systems: All systems reviewed & are unremarkable except as noted in HPI and below PMFSH Past Medical History Medical History Anxiety Bipolar disorder Chronic pancreatitis Depression DVT (deep venous thrombosis) Dyslipidemia Hepatitis Necrotizing pancreatitis Neuropathy Type 1 diabetes mellitus Surgical History Surgical History History of section 2003, 2010, 2016 History of ERCP (06/2019) History of surgery on arm (2019) Left History of tubal ligation History of wisdom tooth extraction Family History Family History Mother Diabetes mellitus Family history of coronary artery disease Family history of dementia Social History Social History Social History: Surrogate medical decision maker: Billy Wright, friend. Code status: Full code. Smoking packs per day: 0.5 Smoking cigarettes per day: 10.0 Years smoked: 20 Smoking pack-years: 10.00 Smoking status: Former smoker Tobacco type: cigarettes Second hand tobacco smoke exposure: Yes Additional smoking assessment comments: quit 4 months ago Alcohol intake: current Drinks per week: 42 Substance use: current Substance use type: marijuana Last use: 03/10/2024 Do You Feel Safe in your Home?: Yes Lack of Transportation: No Lack of Food: Sometimes True Current Housing: I Have Housing Concerned About Future Housing: Decline to Answer Difficulty Paying Gas/Electric Bills: Decline to Answer Difficulty Paying for Meds: Decline to Answer Currently Unemployed: Decline to Answer Education: Decline to Answer Difficulty w/ Childcare or Family Care: Decline to Answer Additional occupation/education comments: Unemployed. Spiritual care concerns: No Exam Narrative: APPEARANCE: Unresponsive HEAD: normocephalic, atraumatic. EYES: PERRLA/EOMI, conjunctivae clear. NOSE: Normal no drainage EARS:TMS clear with good light reflex. THROAT: Pharynx clear, no exudate. NECK: Supple. No adenopathy, no masses. RESPIRATORY: Airway patent, respirations nonlabored. Clear to auscultation bilaterally, no rales, rhonchi, wheezing. CARDIOVASCULAR: Regular rate and rhythm without murmurs rubs or gallops. ABDOMINAL: Soft, nontender, nondistended, normal bowel sounds MUSCULOSKELETAL: Moves all extremities. Strength/ROM intact, No edema, No calf tenderness. NEURO: Patient had posturing, with flexion of the wrists and extension at the elbows. Course Vital Signs Vital signs: Vital Signs Temperature 91.2 F L 06/25/24 01:17 Pulse Rate 102 H 06/25/24 01:17 Respiratory Rate 32 H 06/25/24 01:17 Blood Pressure 141/89 H 06/25/24 01:17 Pulse Oximetry 100 06/25/24 01:17 Oxygen Delivery Room Air 06/25/24 01:17 Temperature 96.4 F L 06/25/24 07:53 Pulse Rate 90 06/25/24 08:18 Respiratory Rate 17 06/25/24 07:53 Blood Pressure 131/72 06/25/24 08:18 Pulse Oximetry 99 06/25/24 07:53 Oxygen Delivery Mechanical Ventilation 06/25/24 06:06 Fraction of Inspired Oxygen 30 06/25/24 06:06 Procedures Central Line Placement Right IJ: Central Line Date: 06/25/24 Central Line Time: 05:08 Discussed w/ the patient/family/POA,the placement of a central venous catheter, including its clinical necessity/indication & associated potential risks, benifits and alternatives.: Yes The patient/family/POA understand(s) and acknowledge(s) the need to proceed with central venous catheter insertion as an important element of the patient's clinical management.: Yes Time Out Performed: Yes Patient Placed on Monitor/Pulse Ox: Yes Max. Sterile Barrier Technique: Caps, large sterile sheet and hand hygiene Central Line Prep: 2% chlorhexidine scrub, sterile drapes applied and other Technique: US-Guided Local Anesthetic: lidocaine 1% Amount of anesthesia used (mL): 5 Ultrasound Used for Placement: Yes Central Line Lumen Inserted: triple Post Procedure: sutured in place, good blood return, all ports aspirated, flushed, capped and sterile dressing applied Post Procedure X-Ray: tip of catheter in good position and no pneumothorax seen Patient Tolerated Procedure: well and no complications Complications: none Intubation Intubation #1: sedative: Etomidate Mg Given: 20 paralytic: Succinylcholine Mg Given: 100 Laryngoscope: fiber optic video scope Tube Size (cm): 7.5 Method of Intubation: orotracheal Number of Attempts: 1 Tube Secured Depth (cm): 23 Tube Secured Location: teeth Tube Placement Confirmation: visualized tube passing through cords, equal breath sounds bilaterally, no breath sounds over epigastrium and confirmation by capnometry Patient Tolerated Procedure: well and no complications Intubation Complications: none Medical Decision Making MDM Narrative Medical decision making narrative: 44-year-old female presenting to the emergency department for evaluation after being found unresponsive. Patient was intubated shortly on arrival due to not protecting her airway. The patient's initial blood sugar was approximately 17 and patient was treated with D50. Patient did not respond to the D50 so D10 and 50 mL per hour was started. Patient ultimately required 5 amps of D50, 1 mg of glucagon and the D10 was increased to 250 mL an hour. Patient blood sugar of 105 at 4:00 a.m., this increased to 125 at 4:30 a.m.. Patient's blood sugar at 5 then decreased to 97 and decreased further at 530. Patient had an other amp of D50 started and patient also had 30 g of oral glucose given through her NG tube. Poison Control was consulted. Audience Development Manager was consulted. Patient was admitted to the ICU. Case was discussed with hospitalist patient was accepted for admission. Differential Diagnosis Differential Diagnosis: TIA, CVA, seizure, intentional overdose Vital Signs Vital Signs: Vital Signs Temperature 91.2 F L 06/25/24 01:17 Pulse Rate 102 H 06/25/24 01:17 Respiratory Rate 32 H 06/25/24 01:17 Blood Pressure 141/89 H 06/25/24 01:17 Pulse Oximetry 100 06/25/24 01:17 Oxygen Delivery Room Air 06/25/24 01:17 Temperature 96.4 F L 06/25/24 07:53 Pulse Rate 90 06/25/24 08:18 Respiratory Rate 17 06/25/24 07:53 Blood Pressure 131/72 06/25/24 08:18 Pulse Oximetry 99 06/25/24 07:53 Oxygen Delivery Mechanical Ventilation 06/25/24 06:06 Fraction of Inspired Oxygen 30 06/25/24 06:06 Lab Data Lab results reviewed: Yes I reviewed the patient's lab results. 06/25/24 01:29 06/25/24 05:09 Labs: Lab Results 0106/25/24 06/25/24 Range/Units 01:28 01:29 01:34 WBC 13.5 H (4.5-10.0) K/mm3 RBC 4.72 (4.2-5.4) M/mm3 Hgb 13.3 D (12.0-15.0) g/dL Hct 40.6 (37.0-47.0) % MCV 86.0 (80-100) fl MCH 28.2 (26-34) pg MCHC 32.8 (32-36) g/dl RDW 15.1 H (11.5-14.5) % Plt Count 233 (150-375) k/mm3 MPV 10.0 (7.4-10.4) fl Immature Gran % (Auto) 0.5 (0-0.5) % Neut % (Auto) 65.3 (45.5-73.1) % Lymph % (Auto) 24.3 (18.3-44.2) % [place] % (Auto) 8.0 (2.6-8.5) % Eos % (Auto) 1.7 (0-4.4) % Baso % (Auto) 0.2 (0.2-1.2) % Lymph # (Auto) 3.27 H (0.9-3.2) K/mm3 [place] # (Auto) 1.1 H (0.1-0.6) K/mm3 Eos # (Auto) 0.2 (0-0.3) K/mm3 Baso # (Auto) 0.0 (0.0-0.1) K/mm3 Abs Immat Gran (auto) 0.07 H (0.00-0.031) K/mm3 Absolute Neuts (auto) 8.8 H (1.3-6.7) K/mm3 Absolute Nucleated RBC 0.000 (0.0-0.012) K/mm3 Nucleated RBC % 0.0 (0.0-0.2) % PT 13.1 (11.1-14.7) Seconds INR 1.0 APTT 27.8 (22.3-36.8) Seconds Methemoglobin (0-1.5) %THb Minute Volume Vent Mode Tidal Volume ml PEEP cmH2O Peak Inspir Pressure Pressure Support Sodium 141 (137-145) mmol/L Potassium 2.9 L (3.4-5.0) mmol/L Chloride 104 (98-107) mmol/L Carbon Dioxide 30 (22-30) mmol/L Anion Gap 7 (4-12) mmol/L BUN 17 D (7-17) mg/dL Creatinine 0.45 L 0.60 L (0.7-1.0) mg/dL Estim Creat Clear Calc Not Reportable Not Reportable Estimated GFR > 60 > 60 (59 - ) Glucose < 30 L* (65-110) mg/dL POC Capillary Glucose (65-105) mg/dl Calcium 9.2 (8.4-10.2) mg/dL Magnesium 2.4 H (1.6-2.3) mg/dL Iron 94 (37-170) ug/dL TIBC 494 H (261-462) ug/dL % Saturation 19 L (20-50) % Total Bilirubin 0.5 (0.2-1.3) mg/dL AST 62 H (14-36) U/L ALT 44 H (6-35) U/L Alkaline Phosphatase 116 (38-126) U/L Total Protein 8.0 (6.3-8.2) g/dL Albumin 4.3 (3.5-5.1) g/dL TSH (Reflex) 2.420 (0.465-4.68) uIU/mL Urine Color Dark yellow (Yellow) Urine Appearance Clear (Clear) Urine pH 5.5 (5.0-9.0) Ur Specific [place] 1.023 (1.001-1.035) Urine Protein 2+ H (Negative) mg/dL Urine Glucose (UA) Negative (Negative) mg/dL Urine Ketones Trace H (Negative) mg/dL Ur Blood (Man) Negative (Negative) Urine Nitrate Negative (Negative) Urine Bilirubin Negative (Negative) Urine Urobilinogen 0.2 (<2.0) mg/dL Add Ur Microanalysis Reviewed Leukocyte Esterase Rfl Negative (Negative) LUISA/UL Urine RBC 0-2 (0-2) /hpf Urine WBC 0-5 (0-3) /hpf Ur Squamous Epith Cells Occasional (Few) /hpf Calcium Oxalate Crystal Present (None) /hpf Urine Bacteria None seen /hpf Urine Casts 11-20 Hyaline Casts Present (None) /lpf Urine Mucus Present /lpf Salicylates < 1.0 L (2-20) mg/dL Urine Opiates Screen Negative (Negative) Urine Methadone Screen Negative (Negative) Ur Barbiturates Screen Negative (Negative) Ur Phencyclidine Scrn Negative (Negative) Ur Amphetamine Screen Positive A (Negative) U Benzodiazepines Scrn Negative (Negative) Urine Cocaine Screen Negative (Negative) U Cannabinoids Screen Positive A (Negative) Ethyl Alcohol < 10 (<10) mg/dL 06/25/24 06/25/24 06/25/24 Range/Units 01:51 02:33 03:20 WBC (4.5-10.0) K/mm3 RBC (4.2-5.4) M/mm3 Hgb (12.0-15.0) g/dL Hct (37.0-47.0) % MCV (80-100) fl MCH (26-34) pg MCHC (32-36) g/dl RDW (11.5-14.5) % Plt Count (150-375) k/mm3 MPV (7.4-10.4) fl Immature Gran % (Auto) (0-0.5) % Neut % (Auto) (45.5-73.1) % Lymph % (Auto) (18.3-44.2) % [place] % (Auto) (2.6-8.5) % Eos % (Auto) (0-4.4) % Baso % (Auto) (0.2-1.2) % Lymph # (Auto) (0.9-3.2) K/mm3 [place] # (Auto) (0.1-0.6) K/mm3 Eos # (Auto) (0-0.3) K/mm3 Baso # (Auto) (0.0-0.1) K/mm3 Abs Immat Gran (auto) (0.00-0.031) K/mm3 Absolute Neuts (auto) (1.3-6.7) K/mm3 Absolute Nucleated RBC (0.0-0.012) K/mm3 Nucleated RBC % (0.0-0.2) % PT (11.1-14.7) Seconds INR APTT (22.3-36.8) Seconds Methemoglobin 0.1 (0-1.5) %THb Minute Volume Not Reportable Vent Mode Cmv Tidal Volume 400 ml PEEP 5 cmH2O Peak Inspir Pressure Not Reportable Pressure Support Not Reportable Sodium (137-145) mmol/L Potassium (3.4-5.0) mmol/L Chloride (98-107) mmol/L Carbon Dioxide (22-30) mmol/L Anion Gap (4-12) mmol/L BUN (7-17) mg/dL Creatinine (0.7-1.0) mg/dL Estim Creat Clear Calc Estimated GFR (59 - ) Glucose (65-110) mg/dL POC Capillary Glucose < 20 L* < 20 L* < 20 L* (65-105) mg/dl Calcium (8.4-10.2) mg/dL Magnesium (1.6-2.3) mg/dL Iron (37-170) ug/dL TIBC (261-462) ug/dL % Saturation (20-50) % Total Bilirubin (0.2-1.3) mg/dL AST (14-36) U/L ALT (6-35) U/L Alkaline Phosphatase (38-126) U/L Total Protein (6.3-8.2) g/dL Albumin (3.5-5.1) g/dL TSH (Reflex) (0.465-4.68) uIU/mL Urine Color (Yellow) Urine Appearance (Clear) Urine pH (5.0-9.0) Ur Specific [place] (1.001-1.035) Urine Protein (Negative) mg/dL Urine Glucose (UA) (Negative) mg/dL Urine Ketones (Negative) mg/dL Ur Blood (Man) (Negative) Urine Nitrate (Negative) Urine Bilirubin (Negative) Urine Urobilinogen (<2.0) mg/dL Add Ur Microanalysis Leukocyte Esterase Rfl (Negative) LUISA/UL Urine RBC (0-2) /hpf Urine WBC (0-3) /hpf Ur Squamous Epith Cells (Few) /hpf Calcium Oxalate Crystal (None) /hpf Urine Bacteria /hpf Urine Casts Hyaline Casts (None) /lpf Urine Mucus /lpf Salicylates (2-20) mg/dL Urine Opiates Screen (Negative) Urine Methadone Screen (Negative) Ur Barbiturates Screen (Negative) Ur Phencyclidine Scrn (Negative) Ur Amphetamine Screen (Negative) U Benzodiazepines Scrn (Negative) Urine Cocaine Screen (Negative) U Cannabinoids Screen (Negative) Ethyl Alcohol (<10) mg/dL 06/25/24 06/25/24 06/25/24 Range/Units 03:50 04:18 04:59 WBC (4.5-10.0) K/mm3 RBC (4.2-5.4) M/mm3 Hgb (12.0-15.0) g/dL Hct (37.0-47.0) % MCV (80-100) fl MCH (26-34) pg MCHC (32-36) g/dl RDW (11.5-14.5) % Plt Count (150-375) k/mm3 MPV (7.4-10.4) fl Immature Gran % (Auto) (0-0.5) % Neut % (Auto) (45.5-73.1) % Lymph % (Auto) (18.3-44.2) % [place] % (Auto) (2.6-8.5) % Eos % (Auto) (0-4.4) % Baso % (Auto) (0.2-1.2) % Lymph # (Auto) (0.9-3.2) K/mm3 [place] # (Auto) (0.1-0.6) K/mm3 Eos # (Auto) (0-0.3) K/mm3 Baso # (Auto) (0.0-0.1) K/mm3 Abs Immat Gran (auto) (0.00-0.031) K/mm3 Absolute Neuts (auto) (1.3-6.7) K/mm3 Absolute Nucleated RBC (0.0-0.012) K/mm3 Nucleated RBC % (0.0-0.2) % PT (11.1-14.7) Seconds INR APTT (22.3-36.8) Seconds Methemoglobin (0-1.5) %THb Minute Volume Vent Mode Tidal Volume ml PEEP cmH2O Peak Inspir Pressure Pressure Support Sodium (137-145) mmol/L Potassium (3.4-5.0) mmol/L Chloride (98-107) mmol/L Carbon Dioxide (22-30) mmol/L Anion Gap (4-12) mmol/L BUN (7-17) mg/dL Creatinine (0.7-1.0) mg/dL Estim Creat Clear Calc Estimated GFR (59 - ) Glucose (65-110) mg/dL POC Capillary Glucose 105 125 H 98 (65-105) mg/dl Calcium (8.4-10.2) mg/dL Magnesium (1.6-2.3) mg/dL Iron (37-170) ug/dL TIBC (261-462) ug/dL % Saturation (20-50) % Total Bilirubin (0.2-1.3) mg/dL AST (14-36) U/L ALT (6-35) U/L Alkaline Phosphatase (38-126) U/L Total Protein (6.3-8.2) g/dL Albumin (3.5-5.1) g/dL TSH (Reflex) (0.465-4.68) uIU/mL Urine Color (Yellow) Urine Appearance (Clear) Urine pH (5.0-9.0) Ur Specific [place] (1.001-1.035) Urine Protein (Negative) mg/dL Urine Glucose (UA) (Negative) mg/dL Urine Ketones (Negative) mg/dL Ur Blood (Man) (Negative) Urine Nitrate (Negative) Urine Bilirubin (Negative) Urine Urobilinogen (<2.0) mg/dL Add Ur Microanalysis Leukocyte Esterase Rfl (Negative) LUISA/UL Urine RBC (0-2) /hpf Urine WBC (0-3) /hpf Ur Squamous Epith Cells (Few) /hpf Calcium Oxalate Crystal (None) /hpf Urine Bacteria /hpf Urine Casts Hyaline Casts (None) /lpf Urine Mucus /lpf Salicylates (2-20) mg/dL Urine Opiates Screen (Negative) Urine Methadone Screen (Negative) Ur Barbiturates Screen (Negative) Ur Phencyclidine Scrn (Negative) Ur Amphetamine Screen (Negative) U Benzodiazepines Scrn (Negative) Urine Cocaine Screen (Negative) U Cannabinoids Screen (Negative) Ethyl Alcohol (<10) mg/dL ABG Data ABG results: 06/25/24 01:51 Puncture Site Right radial ABG pH 7.332 L ABG pCO2 48.5 H ABG pO2 91.2 ABG PO2/FiO2 Ratio 3.04 ABG HCO3 25.1 ABG O2 Saturation 96.4 ABG O2 Content 16.3 ABG Base Excess -1.2 A-a Gradient 74.5 Oxyhemoglobin 94.4 Carboxyhemoglobin 1.8 Reduced Hemoglobin 3.7 Total Hemoglobin 12.2 O2 Delivery Device Ventilator O2 Liters/Min Not Reportable Vent Rate 18 FiO2 30 Imaging Data Radiologist's impression: CT head impression: CT head negative for acute intracranial abnormality. CTA head impression: No stenosis, dissection, aneurysm or occlusion CTA neck impression no stenosis, dissection, aneurysm or occlusion Critical Care Time Critical Care Time Critical Care Time: Yes Total Critical Care Time: 45 Discharge Plan Discharge Clinical Impression: Overdose, IDDM (insulin dependent diabetes mellitus), Unresponsive Patient Disposition: Still a Patient Condition: Critical
--- NOTE | 2024-06-25 02:26 | ECG_ITS ---
Test Date: 2024-06-25 01:10:43 Measurements Intervals [place] Rate: 83 P: 72 NH: 185 QRS: 37 QRSD: 108 T: 71 QT: 433 QTc: 510 Interpretive Statements SINUS RHYTHM PROLONGED QT INTERVAL ABNORMAL ECG Compared to ECG 03/10/2024 09:53:51 Prolonged QT interval now present Electronically Signed On 06-25-2024 08:31:35 PASTRY ARTIST by Anuj Judd M.D.
[2024-06-25] MEDS: DEXTROSE 10% 1,000 ML 50 ML IV CONT (02:35)
[2024-06-25 02:41] LABS: Glucose Point of Care < 20 mg/dl (65-105)
[2024-06-25 02:41] LABS: Glucose Point of Care < 20 mg/dl (65-105)
[2024-06-25 02:44] LABS: Amphetamine Screen Urine Positive (Negative); Barbiturate Screen Urine Negative (Negative); Benzodiazepines Screen Urine Negative (Negative); Cannabinoid Screen Urine Positive (Negative); Cocaine Screen Urine Negative (Negative); Methadone Screen Urine Negative (Negative); Opiate Screen Urine Negative (Negative); Phencyclidine Screen Urine Negative (Negative)
[2024-06-25] MEDS: KCL 20 MEQ/SW 100 ML 100 ML 50 MEQ IVPB (02:50)
--- NOTE | 2024-06-25 03:02 | PC.NURSE ---
At approximately 0055 patient comes to ED room 8 via [facility] from home. Patient had a heart rate of 72bmp Sinus Rhythm and was having agonal/snoring respirations. Per EMS patient was found unresponsive in her house by another person present. Person states to EMS that before patient was found unresponsive patient was slurring her words. EMS states that patient is known to them and has a hx of ETOH and drug abuse. At 0059 20mg of Etomidate was ordered VRBO by EDP Dr. Norris and pushed at through an IO in the lower left leg established by EMS. At 0100 100 of succinylcholine was pushed IVP at the VRBO of Dr. Norris through the lower left IO. EDP Dr. Norris then proceeded to place a 7.5 ETT and measure 24 at the lips. Patient was then given an urinary catheter approximately at 0105.
--- NOTE | 2024-06-25 03:12 | PC.NURSE ---
Spouse at bedside now states that he picked patient up from work at 2100. Spouse states that patient recently lost a family member and told spouse that she was sorry and going to bed. When nursing staff asked patient about the context of what the sorry meant spouse states that he is unsure. Spouse states he noticed that patient was snoring and breathing funny and that is when he called EMS.
--- NOTE | 2024-06-25 03:25 | PC.NURSE ---
Patient's spouse states to nursing staff that patient has insulin pens, does not have an insulin pump, has a sensor for the back of her arm, and stats that she has before accidently taken too much insulin.
[2024-06-25 03:28] LABS: Glucose Point of Care < 20 mg/dl (65-105)
[2024-06-25] MEDS: GLUCAGON FOR INJ 1 MG VIAL IM (03:32)
[2024-06-25 03:53] LABS: Glucose Point of Care 105 mg/dl (65-105)
[2024-06-25 04:05] LABS: Ethanol < 10 mg/dL (<10)
[2024-06-25 04:21] LABS: Glucose Point of Care 125 mg/dl (65-105)
--- NOTE | 2024-06-25 04:29 | PC.NURSE ---
Patient began pulling and thrashing before central line placement. Per EDP Dr. Norris administer 5mg Versed IVP to patient.
[2024-06-25 04:32] LABS: Salicylate < 1.0 mg/dL (2-20)
[2024-06-25 04:34] LABS: Iron 94 ug/dL (37-170)
[2024-06-25 04:43] LABS: Percent Iron Saturation 19 % (20-50)
--- NOTE | 2024-06-25 04:49 | PC.NURSE ---
Patient was again starting to pull at lines and thrash. Per EDP Dr. Norris administer another 5mg Versed IVP.
[2024-06-25 05:02] LABS: Glucose Point of Care 98 mg/dl (65-105)
--- NOTE | 2024-06-25 05:04 | PC.NURSE ---
Implied consent was used for patient as spouse states they have never been legally , but have been together for 22 years. Notified powerhouse mechanic supervisor.
[2024-06-25] MEDS: NOREPINEPHRINE 8 MG/D5W 250 ML 8 MG/250 ML BAG 9.38 MG IV CONT (05:13)
[2024-06-25] MEDS: SODIUM CHLORIDE 0.9% IV 1,000 ML 125 ML IV CONT (05:18)
[2024-06-25] MEDS: KCL 40 MEQ/WATER 100 ML 100 ML 25 ML IVPB (05:30)
[2024-06-25 05:31] LABS: Anion Gap 4 mmol/L (4-12); Blood Urea Nitrogen 13 mg/dL (7-17); Calcium 7.2 mg/dL (8.4-10.2); Carbon Dioxide 25 mmol/L (22-30); Chloride 108 mmol/L (98-107); Estimated CRCL calculation 209 ml/min; Estimated Glomerular Filt Rate > 60; Glucose 86 mg/dL (65-110); Potassium 2.7 mmol/L (3.4-5.0); Sodium 137 mmol/L (137-145)
[2024-06-25 05:43] LABS: Glucose Point of Care 61 mg/dl (65-105)
--- NOTE | 2024-06-25 06:40 | PC.NURSE ---
This patient, Marisa Lott, was admitted to Intensive Care Unit-4. Patient/family oriented to hospital policies and general routines including ID bracelet, bed and alarms, visiting hours, pain management, procedures, bathroom and other care routines, personal items, smoking policy, room service/diet, and visiting hours. Information on how to activate the Rapid Response Team has been discussed. Patient/Family are encouraged to report perceived risks to care and to ask questions if they do not understand what they are told or what they should do.
[2024-06-25 06:54] LABS: Glucose Point of Care 77 mg/dl (65-105)
[2024-06-25] MEDS: CENTRAL LINE FLUSH 10 ML IV PUSH ×3 (07:07→21:13)
[2024-06-25] MEDS: DEXTROSE 10% 1,000 ML 250 ML IV CONT (07:11)
[2024-06-25 08:06] LABS: Glucose Point of Care 77 mg/dl (65-105)
[2024-06-25 09:02] LABS: Glucose Point of Care 98 mg/dl (65-105)
[2024-06-25] MEDS: HYDROCORTISONE SODIUM SUCCINATE 100 MG/2 ML VIAL IV PUSH ×3 (09:15→20:26)
[2024-06-25] MEDS: PIPERACILLN/TAZ 3.375GM/NS50ML 3.375 GM/50 ML BAG IVPB ×3 (09:15→20:26)
[2024-06-25] MEDS: MINERAL OIL/WHITE PETROLATUM OINTMENT 1 APPLIC EACH EYE ×2 (09:16→21:13)
[2024-06-25] MEDS: POTASSIUM CHLORIDE 20 MEQ PACKET (FOR LIQUID) 40 MEQ FEED TUBE (09:16)
--- NOTE | 2024-06-25 09:27 | P.CONIN_ITS ---
Assessment and Plan Assessment and plan (1) Intentional overdose of insulin: Code(s): T38.3X2A - Poisoning by insulin and oral hypoglycemic [antidiabetic] drugs, intentional self-harm, initial encounter Status: Acute Assessment and Plan: Patient has history of his depression and suicide attempts in the past. She is diabetic and is on insulin Presented with persistent severe hyperglycemia with situation that would suggest intentional overdose of insulin Currently on D10 at 50 mL/hour Change normal saline to D5 half-normal saline 125 mL/hour Patient already received glucagon Start IV hydrocortisone Monitor q.1 hour Accu-Cheks and wean down D10 as possible Start tube feeding (2) Acute respiratory failure: Code(s): J96.00 - Acute respiratory failure, unspecified whether with hypoxia or hypercapnia Status: Acute Assessment and Plan: Acute respiratory failure secondary to altered mental status secondary to hypoglycemia Patient may also have had a seizure and was postictal ABG and chest x-ray reviewed Vent settings reviewed Will plan to temp weaning once blood sugars are stabilized and hemodynamics improved (3) Diabetes mellitus: Code(s): E11.9 - Type 2 diabetes mellitus without complications Status: Acute Assessment and Plan: Management of hyperglycemia as above (4) Hypokalemia: Code(s): E87.6 - Hypokalemia Status: Acute Assessment and Plan: Potassium replacement ordered and repeat BMP ordered (5) Altered mental status: Qualifiers: Altered mental status type: unspecified Qualified Code(s): R41.82 - Altered mental status, unspecified Code(s): R41.82 - Altered mental status, unspecified Status: Acute Assessment and Plan: Likely secondary to hyperglycemia. Patient may have had a seizure and was postictal. Currently now sedated but easily wakes up and follows commands intermittently Head CT was done and report pending Monitor (6) Hypoglycemia: Code(s): E16.2 - Hypoglycemia, unspecified Status: Acute Assessment and Plan: Suspected secondary to intentional overdose of insulin. Management as above. (7) Shock: Code(s): R57.9 - Shock, unspecified Status: Acute Assessment and Plan: Patient hypertensive post intubation and hypertension could be secondary to sedatives or sepsis Continue IV fluids and Levophed to maintain mean arterial pressure (8) Sepsis: Code(s): A41.9 - Sepsis, unspecified organism Status: Acute Assessment and Plan: Patient met criteria for sepsis had elevated WBC count and chest x-ray shows infiltrate or atelectasis in lower lobes Could be aspiration pneumonia Check blood and sputum culture Empiric Zosyn Check procalcitonin UA was unremarkable (9) Pneumonia: Code(s): J18.9 - Pneumonia, unspecified organism Status: Acute Assessment and Plan: See above Plan DVT prophylaxis -Lovenox Stress ulcer prophylaxis -PPI Nutrition -start Tube Feeds Code Status - Full Code Total Critical Care Time - 35 minutes Due to a high probability of clinically significant, life threatening deterioration, the patient required my highest level of preparedness to intervene emergently and I personally spent this critical care time directly and personally managing the patient. This critical care time included obtaining a history; examining the patient; pulse oximetry; ordering and review of studies; arranging urgent treatment with development of a management plan; evaluation of patient's response to treatment; frequent reassessment; and discussions with other providers. It was exclusive of separately billable procedures and treating other patients and teaching time. Please see Assessment and Plan section and the rest of the note for further information on patient assessment and treatment Geology Scientist Consult Note Consult date: 06/25/24 Reason for consult: Acute respiratory failure, altered mental status, hypoglycemia HPI: Marisa Lott is a 44 year old female with past medical history of type 1 diabetes, DKA, alcohol withdrawal seizure, depression, anxiety, pancreatitis, past history of suicide attempt was brought to ER yesterday with altered mental status. Patient was found unresponsive by her . Prior to that patient told her that she was sorry before going to bed but did not explain what exactly was bothering her. heard her snoring and went to check on her after 30 minutes and could not wake her up and called EMS. Patient was brought to the ER and was not protecting her airway and was intubated. Patient was found to be hypoglycemic. Despite several pushes of D50 patient remained hypoglycemia. Patient was started on D10 infusion and also given glucagon. Patient was agitated post intubation and had to be sedated. Post intubation patient was hypotensive and was started on Levophed after fluid bolus Patient was admitted to ICU for further evaluation management. Patient now admitted to ICU and is currently on D10, normal saline, Versed and fentanyl and Levophed. Are patient unable to provide any history and history was obtained from chart and physician sign-out. Review of Systems 2 Review of Systems: ROS unobtainable: Yes unobtainable due to endotracheal tube, unobtainable due to medical condition and unobtainable due to mental status PMF Past Medical History Medical History Type 1 diabetes mellitus Bipolar disorder Neuropathy Chronic pancreatitis Dyslipidemia Anxiety Depression Hepatitis DVT (deep venous thrombosis) Necrotizing pancreatitis Surgical History Surgical History History of wisdom tooth extraction History of tubal ligation History of ERCP (06/2019) History of surgery on arm (2019) Left History of section 2003, 2010, 2016 Family History Family History Mother Diabetes mellitus Family history of coronary artery disease Family history of dementia Social History Social History Social History: Surrogate medical decision maker: Billy Wright, friend. Code status: Full code. Smoking packs per day: 0.5 Smoking cigarettes per day: 10.0 Years smoked: 20 Smoking pack-years: 10.00 Smoking status: Former smoker Tobacco type: cigarettes Second hand tobacco smoke exposure: Yes Additional smoking assessment comments: quit 4 months ago Alcohol intake: current Drinks per week: 42 Substance use: current Substance use type: marijuana Last use: 03/10/2024 Do You Feel Safe in your Home?: Yes Lack of Transportation: No Lack of Food: Sometimes True Current Housing: I Have Housing Concerned About Future Housing: Decline to Answer Difficulty Paying Gas/Electric Bills: Decline to Answer Difficulty Paying for Meds: Decline to Answer Currently Unemployed: Decline to Answer Education: Decline to Answer Difficulty w/ Childcare or Family Care: Decline to Answer Additional occupation/education comments: Unemployed. Spiritual care concerns: No Meds Home Medications and Allergies Home Medications ?Medication ?Instructions ?Recorded ?Confirmed ?Type insulin aspart U-100 100 unit/mL 1 sliding scale dose subcut 07/01/21 03/10/24 History subcutaneous solution (Novolog USEASDIRECTD U-100 Insulin aspart) insulin glargine 100 unit/mL 35 unit subcut HS 11/24/21 03/10/24 History subcutaneous solution (Lantus U-100 Insulin) pregabalin 100 mg capsule 200 mg PO TID 02/24/22 03/10/24 History albuterol sulfate 90 mcg/actuation 90 mcg inhalation DAILY 03/10/24 03/10/24 History aerosol inhaler carbidopa 25 mg-levodopa 100 mg See Rx Instructions .Route .COMPLEX 03/10/24 03/10/24 History tablet dextroamphetamine-amphetamine 30 30 mg PO DAILY 03/10/24 03/10/24 History mg tablet duloxetine 60 mg capsule,delayed See Rx Instructions .Route .COMPLEX 03/10/24 03/10/24 History release hydroxyzine pamoate 25 mg capsule 25 mg PO HS 03/10/24 03/10/24 History amoxicillin 875 mg-potassium 1 tablet PO Q12H #20 tabs 03/12/24 Rx clavulanate 125 mg tablet chlorhexidine gluconate 0.12 % 15 ml SWISHSPIT BID #900 mL 03/12/24 Rx mouthwash ferrous sulfate 325 mg (65 mg 325 mg PO BID #60 tabs 03/12/24 Rx iron) tablet folic acid 1 mg tablet 1 mg PO DAILY #30 tabs 03/12/24 Rx thiamine HCl (vitamin B1) 100 mg 100 mg PO QAM #30 tabs 03/12/24 Rx tablet (Vitamin B-1) Allergies Allergy/AdvReac Type Severity Reaction Status Date / Time No Known Allergies Allergy Unknown Verified 06/25/24 07:47 Vital Signs Vital Signs - 24 hr 06/25/24 01:17 06/25/24 01:17 06/25/24 01:17 Temperature 32.9 C L Pulse Rate 102 H 102 H 102 H Respiratory Rate 32 H 22 H 22 H Blood Pressure 141/89 H Pulse Oximetry 100 Oxygen Delivery Room Air Fraction of Inspired Oxygen 06/25/24 01:17 06/25/24 01:20 06/25/24 01:30 Temperature 33.3 C L Pulse Rate 90 Respiratory Rate Blood Pressure Pulse Oximetry 100 96 Oxygen Delivery Room Air Mechanical Ventilation Fraction of Inspired Oxygen 30 06/25/24 01:32 06/25/24 01:47 06/25/24 02:02 Temperature Pulse Rate 102 H 103 H 101 H Respiratory Rate 18 21 H 18 Blood Pressure Pulse Oximetry Oxygen Delivery Fraction of Inspired Oxygen 06/25/24 02:14 06/25/24 02:17 06/25/24 02:18 Temperature 33.4 C L Pulse Rate 108 H 102 H 110 H Respiratory Rate 18 27 H Blood Pressure 108/58 L Pulse Oximetry 99 Oxygen Delivery Fraction of Inspired Oxygen 06/25/24 02:47 06/25/24 03:27 06/25/24 03:37 Temperature 33.6 C L 34.1 C L Pulse Rate 91 89 86 Respiratory Rate 18 18 18 Blood Pressure 90/41 L 106/45 L Pulse Oximetry 98 97 Oxygen Delivery Fraction of Inspired Oxygen 06/25/24 03:37 06/25/24 03:38 06/25/24 04:02 Temperature 34.0 C L Pulse Rate 88 86 87 Respiratory Rate 18 18 18 Blood Pressure 86/33 L Pulse Oximetry 97 Oxygen Delivery Fraction of Inspired Oxygen 06/25/24 04:07 06/25/24 04:07 06/25/24 04:11 Temperature 34.2 C L 34.3 C L Pulse Rate 88 88 Respiratory Rate 18 19 Blood Pressure 86/48 L Pulse Oximetry 99 Oxygen Delivery Fraction of Inspired Oxygen 06/25/24 04:32 06/25/24 04:39 06/25/24 04:47 Temperature 34.6 C L 34.6 C L Pulse Rate 89 92 92 Respiratory Rate 18 19 18 Blood Pressure 87/50 L 95/57 L Pulse Oximetry 99 100 Oxygen Delivery Fraction of Inspired Oxygen 06/25/24 04:48 06/25/24 05:13 06/25/24 05:16 Temperature 35 C L Pulse Rate 94 91 92 Respiratory Rate 19 19 Blood Pressure 87/45 L 89/51 L Pulse Oximetry 100 Oxygen Delivery Fraction of Inspired Oxygen 06/25/24 05:20 06/25/24 05:23 06/25/24 05:35 Temperature Pulse Rate 94 79 95 Respiratory Rate 18 Blood Pressure 89/51 L 154/64 H Pulse Oximetry Oxygen Delivery Fraction of Inspired Oxygen 06/25/24 05:35 06/25/24 05:36 06/25/24 05:39 Temperature 35.2 C L 35.3 C L Pulse Rate 92 95 Respiratory Rate 15 20 Blood Pressure 154/64 H Pulse Oximetry 100 Oxygen Delivery Fraction of Inspired Oxygen 06/25/24 06:06 06/25/24 06:18 06/25/24 06:40 Temperature 35.7 C L Pulse Rate 97 97 97 Respiratory Rate 16 18 Blood Pressure 106/56 L Pulse Oximetry 99 100 Oxygen Delivery Mechanical Ventilation Fraction of Inspired Oxygen 30 06/25/24 06:40 06/25/24 06:52 06/25/24 06:55 Temperature 35.9 C L Pulse Rate 97 97 Respiratory Rate 18 Blood Pressure 89/43 L Pulse Oximetry Oxygen Delivery Fraction of Inspired Oxygen 06/25/24 06:55 06/25/24 07:00 06/25/24 07:15 Temperature Pulse Rate 97 97 95 Respiratory Rate 18 18 Blood Pressure 86/40 L Pulse Oximetry Oxygen Delivery Fraction of Inspired Oxygen 06/25/24 07:15 06/25/24 07:30 06/25/24 07:53 Temperature 35.8 C L Pulse Rate 95 89 89 Respiratory Rate 18 17 Blood Pressure 109/62 108/59 L Pulse Oximetry 99 Oxygen Delivery Fraction of Inspired Oxygen 06/25/24 07:56 06/25/24 08:18 06/25/24 08:34 Temperature Pulse Rate 88 90 89 Respiratory Rate Blood Pressure 128/65 131/72 Pulse Oximetry 100 Oxygen Delivery Mechanical Ventilation Fraction of Inspired Oxygen 30 Exam 2 Narrative: General: Pt is sedated, intubated and on mechanical ventilation Lungs/Chest: Trachea central Coarse BS B/L, No crackles or wheezing. Cardiac: RRR. Normal S1 S2. No murmurs Circulation: Pedal pulses are intact and symmetrical. Abdomen: Decreased bowel sounds. Obese. Soft. NT. ND. Extremities: No clubbing, cyanosis or edema. Warm : Weathers in place Neurologic: Patient is sedated but easily wakes up and tries to sit up. Moves all 4 extremities. Intermittently follows commands his hands PERRL Results Labs 06/25/24 01:29 06/25/24 05:09 Labs: Impressions Abdomen X-Ray 06/25/24 06:23 IMPRESSION: Orogastric tube tip overlies gastric antrum Chest X-Ray 06/25/24 06:24 IMPRESSION: Right internal jugular central venous catheter placement in right atrium; no pneumothorax Congestive changes, pulmonary edema, mildly increased since 06/25/2024 Chest X-Ray 06/25/24 06:41 IMPRESSION: ET tube in satisfactory position Mild infiltrate and/or atelectasis in the right mid to upper and left lower lung carrero Abdomen X-Ray 06/25/24 07:45 IMPRESSION: Orogastric tube tip in gastric antrum Short CBC 06/25/24 Range/Units 01:29 WBC 13.5 H (4.5-10.0) K/mm3 Hgb 13.3 D (12.0-15.0) g/dL Hct 40.6 (37.0-47.0) % Plt Count 233 (150-375) k/mm3 BMP 06/25/24 06/25/24 06/25/24 01:29 01:34 05:09 Sodium 141 137 Potassium 2.9 L 2.7 L* Chloride 104 108 H Carbon Dioxide 30 25 BUN 17 D 13 Creatinine 0.45 L 0.60 L 0.32 L Glucose < 30 L* 86 Calcium 9.2 7.2 L Liver Function 06/25/24 Range/Units 01:29 Total Bilirubin 0.5 (0.2-1.3) mg/dL AST 62 H (14-36) U/L ALT 44 H (6-35) U/L Alkaline Phosphatase 116 (38-126) U/L Albumin 4.3 (3.5-5.1) g/dL Urine 06/25/24 Range/Units 01:29 Urine Color Dark yellow (Yellow) Urine Appearance Clear (Clear) Urine pH 5.5 (5.0-9.0) Ur Specific [place] 1.023 (1.001-1.035) Urine Protein 2+ H (Negative) mg/dL Urine Glucose (UA) Negative (Negative) mg/dL ECG Interpretation: Sinus rhythm with prolonged QTC Quality VTE Prophylaxis VTE prophylaxis: pharmacologic ordered Hospitalist MIPS Advance Care Plan I have confirmed that the patient's Advanced Care Plan is present, code status is documented, or surrogate decision maker is listed in patient medical record.: Yes Medication Reconciliation I have utilized all available resources to obtain, update and review the patients current medications (includes all prescriptions, OTC, herbals, cannabis, and nutritional supplements).: Yes
[2024-06-25] MEDS: CALCIUM GLUC 2,000 MG/NS 100ML 2,000 MG/100 ML BAG 100 MG IVPB (09:28)
[2024-06-25 09:55] LABS: MRSA (PCR) NOT DETECTED (NOT DETECTE)
[2024-06-25 09:59] LABS: Glucose Point of Care 182 mg/dl (65-105)
[2024-06-25 10:33] LABS: Procalcitonin 0.3 ng/mL
[2024-06-25] MEDS: ENOXAPARIN 40 MG/0.4 ML SYRINGE SUB-Q (10:35)
[2024-06-25] MEDS: PANTOPRAZOLE SODIUM IV 40 MG VIAL IV PUSH (10:35)
[2024-06-25] MEDS: DEXTROSE 5%/0.45% SOD CHL 1,000 ML 125 ML IV CONT (10:35)
--- NOTE | 2024-06-25 10:53 | PM.IMHP ---
H&P: HPI History of Present Illness Date/Time: 06/25/24 10:53 Chief Complaint: Unresponsive Intentional Insulin overdose Narrative: History taken from Family and Medical records review 44 years old female was admitted through the emergency room last night with the possible-a low dose of insulin. According to the patient's , she has history of previous suicide and last night before going to bed she said goodbye to him and then after 30 minute when he went to see her she was found to be unresponsive. She CPR was started and EMS was called. Upon arrival in ER patient glucose was found to be less than 20. To protect airway patient was intubated immediately. Patient was given medication to improve sugar level. Patient was later on sent to ICU for further management. Present time patient is sedated and intubated, she is on D10 drip to improve her sugar. Review of Systems Review of Systems: ROS unobtainable: Yes unobtainable due to endotracheal tube, unobtainable due to medical condition and unobtainable due to mental status PMF Past Medical History Medical History Type 1 diabetes mellitus Bipolar disorder Neuropathy Chronic pancreatitis Dyslipidemia Anxiety Depression Hepatitis DVT (deep venous thrombosis) Necrotizing pancreatitis Surgical History Surgical History History of wisdom tooth extraction History of tubal ligation History of ERCP (06/2019) History of surgery on arm (2019) Left History of section 2004, 2010, 2016 Family History Family History Mother Diabetes mellitus Family history of coronary artery disease Family history of dementia Social History Social History Social History: Surrogate medical decision maker: Billy Wright, friend. Code status: Full code. Smoking packs per day: 0.5 Smoking cigarettes per day: 10.0 Years smoked: 20 Smoking pack-years: 10.00 Smoking status: Former smoker Tobacco type: cigarettes Second hand tobacco smoke exposure: Yes Additional smoking assessment comments: quit 4 months ago Alcohol intake: current Drinks per week: 42 Substance use: current Substance use type: marijuana Last use: 03/10/2024 Do You Feel Safe in your Home?: Yes Lack of Transportation: No Lack of Food: Sometimes True Current Housing: I Have Housing Concerned About Future Housing: Decline to Answer Difficulty Paying Gas/Electric Bills: Decline to Answer Difficulty Paying for Meds: Decline to Answer Currently Unemployed: Decline to Answer Education: Decline to Answer Difficulty w/ Childcare or Family Care: Decline to Answer Additional occupation/education comments: Unemployed. Spiritual care concerns: No Meds Home Medications and Allergies Home Medications ?Medication ?Instructions ?Recorded ?Confirmed ?Type insulin aspart U-100 100 unit/mL 1 sliding scale dose subcut 07/01/21 03/10/24 History subcutaneous solution (Novolog USEASDIRECTD U-100 Insulin aspart) insulin glargine 100 unit/mL 35 unit subcut HS 11/24/21 03/10/24 History subcutaneous solution (Lantus U-100 Insulin) pregabalin 100 mg capsule 200 mg PO TID 02/24/22 03/10/24 History albuterol sulfate 90 mcg/actuation 90 mcg inhalation DAILY 03/10/24 03/10/24 History aerosol inhaler carbidopa 25 mg-levodopa 100 mg See Rx Instructions .Route .COMPLEX 03/10/24 03/10/24 History tablet dextroamphetamine-amphetamine 30 30 mg PO DAILY 03/10/24 03/10/24 History mg tablet duloxetine 60 mg capsule,delayed See Rx Instructions .Route .COMPLEX 03/10/24 03/10/24 History release hydroxyzine pamoate 25 mg capsule 25 mg PO HS 03/10/24 03/10/24 History amoxicillin 875 mg-potassium 1 tablet PO Q12H #20 tabs 03/12/24 Rx clavulanate 125 mg tablet chlorhexidine gluconate 0.12 % 15 ml SWISHSPIT BID #900 mL 03/12/24 Rx mouthwash ferrous sulfate 325 mg (65 mg 325 mg PO BID #60 tabs 03/12/24 Rx iron) tablet folic acid 1 mg tablet 1 mg PO DAILY #30 tabs 03/12/24 Rx thiamine HCl (vitamin B1) 100 mg 100 mg PO QAM #30 tabs 03/12/24 Rx tablet (Vitamin B-1) Allergies Allergy/AdvReac Type Severity Reaction Status Date / Time No Known Allergies Allergy Unknown Verified 06/25/24 07:47 Vital Signs Vital Signs - 24 hr 06/25/24 01:17 06/25/24 01:17 06/25/24 01:17 Temperature 32.9 C L Pulse Rate 102 H 102 H 102 H Respiratory Rate 32 H 22 H 22 H Blood Pressure 141/89 H Pulse Oximetry 100 Oxygen Delivery Room Air Fraction of Inspired Oxygen 06/25/24 01:17 06/25/24 01:20 06/25/24 01:30 Temperature 33.3 C L Pulse Rate 90 Respiratory Rate Blood Pressure Pulse Oximetry 100 96 Oxygen Delivery Room Air Mechanical Ventilation Fraction of Inspired Oxygen 30 06/25/24 01:32 06/25/24 01:47 06/25/24 02:02 Temperature Pulse Rate 102 H 103 H 101 H Respiratory Rate 18 21 H 18 Blood Pressure Pulse Oximetry Oxygen Delivery Fraction of Inspired Oxygen 06/25/24 02:14 06/25/24 02:17 06/25/24 02:18 Temperature 33.4 C L Pulse Rate 108 H 102 H 110 H Respiratory Rate 18 27 H Blood Pressure 108/58 L Pulse Oximetry 99 Oxygen Delivery Fraction of Inspired Oxygen 06/25/24 02:47 06/25/24 03:27 06/25/24 03:37 Temperature 33.6 C L 34.1 C L Pulse Rate 91 89 86 Respiratory Rate 18 18 18 Blood Pressure 90/41 L 106/45 L Pulse Oximetry 98 97 Oxygen Delivery Fraction of Inspired Oxygen 06/25/24 03:37 06/25/24 03:38 06/25/24 04:02 Temperature 34.0 C L Pulse Rate 88 86 87 Respiratory Rate 18 18 18 Blood Pressure 86/33 L Pulse Oximetry 97 Oxygen Delivery Fraction of Inspired Oxygen 06/25/24 04:07 06/25/24 04:07 06/25/24 04:11 Temperature 34.2 C L 34.3 C L Pulse Rate 88 88 Respiratory Rate 18 19 Blood Pressure 86/48 L Pulse Oximetry 99 Oxygen Delivery Fraction of Inspired Oxygen 06/25/24 04:32 06/25/24 04:39 06/25/24 04:47 Temperature 34.6 C L 34.6 C L Pulse Rate 89 92 92 Respiratory Rate 18 19 18 Blood Pressure 87/50 L 95/57 L Pulse Oximetry 99 100 Oxygen Delivery Fraction of Inspired Oxygen 06/25/24 04:48 06/25/24 05:13 06/25/24 05:16 Temperature 35 C L Pulse Rate 94 91 92 Respiratory Rate 19 19 Blood Pressure 87/45 L 89/51 L Pulse Oximetry 100 Oxygen Delivery Fraction of Inspired Oxygen 06/25/24 05:20 06/25/24 05:23 06/25/24 05:35 Temperature Pulse Rate 94 79 95 Respiratory Rate 18 Blood Pressure 89/51 L 154/64 H Pulse Oximetry Oxygen Delivery Fraction of Inspired Oxygen 06/25/24 05:35 06/25/24 05:36 06/25/24 05:39 Temperature 35.2 C L 35.3 C L Pulse Rate 92 95 Respiratory Rate 15 20 Blood Pressure 154/64 H Pulse Oximetry 100 Oxygen Delivery Fraction of Inspired Oxygen 06/25/24 06:06 06/25/24 06:18 06/25/24 06:40 Temperature 35.7 C L Pulse Rate 97 97 97 Respiratory Rate 16 18 Blood Pressure 106/56 L Pulse Oximetry 99 100 Oxygen Delivery Mechanical Ventilation Fraction of Inspired Oxygen 30 06/25/24 06:40 06/25/24 06:52 06/25/24 06:55 Temperature 35.9 C L Pulse Rate 97 97 Respiratory Rate 18 Blood Pressure 89/43 L Pulse Oximetry Oxygen Delivery Fraction of Inspired Oxygen 06/25/24 06:55 06/25/24 07:00 06/25/24 07:15 Temperature Pulse Rate 97 97 95 Respiratory Rate 18 18 Blood Pressure 86/40 L Pulse Oximetry Oxygen Delivery Fraction of Inspired Oxygen 06/25/24 07:15 06/25/24 07:30 06/25/24 07:53 Temperature 35.8 C L Pulse Rate 95 89 89 Respiratory Rate 18 17 Blood Pressure 109/62 108/59 L Pulse Oximetry 99 Oxygen Delivery Fraction of Inspired Oxygen 06/25/24 07:56 06/25/24 08:18 06/25/24 08:34 Temperature Pulse Rate 88 90 89 Respiratory Rate Blood Pressure 128/65 131/72 Pulse Oximetry 100 Oxygen Delivery Mechanical Ventilation Fraction of Inspired Oxygen 30 06/25/24 09:37 Temperature 36.1 C L Pulse Rate 92 Respiratory Rate 20 Blood Pressure 128/68 Pulse Oximetry 99 Oxygen Delivery Fraction of Inspired Oxygen Exam Narrative: General: Pt is sedated, intubated and on mechanical ventilation Lungs/Chest: Trachea central Coarse BS B/L, No crackles or wheezing. Cardiac: RRR. Normal S1 S2. No murmurs Circulation: Pedal pulses are intact and symmetrical. Abdomen: Decreased bowel sounds. Obese. Soft. NT. ND. Extremities: No clubbing, cyanosis or edema. Warm : Weathers in place Neurologic: Patient is sedated but easily wakes up and tries to sit up. Moves all 4 extremities. Intermittently follows commands his hands PERRL H&P: Results Labs Labs: Short CBC 06/25/24 Range/Units 01:29 WBC 13.5 H (4.5-10.0) K/mm3 Hgb 13.3 D (12.0-15.0) g/dL Hct 40.6 (37.0-47.0) % Plt Count 233 (150-375) k/mm3 BMP 06/25/24 06/25/24 06/25/24 01:29 01:34 05:09 Sodium 141 137 Potassium 2.9 L 2.7 L* Chloride 104 108 H Carbon Dioxide 30 25 BUN 17 D 13 Creatinine 0.45 L 0.60 L 0.32 L Glucose < 30 L* 86 Calcium 9.2 7.2 L Liver Function 06/25/24 Range/Units 01:29 Total Bilirubin 0.5 (0.2-1.3) mg/dL AST 62 H (14-36) U/L ALT 44 H (6-35) U/L Alkaline Phosphatase 116 (38-126) U/L Albumin 4.3 (3.5-5.1) g/dL Urine 06/25/24 Range/Units 01:29 Urine Color Dark yellow (Yellow) Urine Appearance Clear (Clear) Urine pH 5.5 (5.0-9.0) Ur Specific [place] 1.023 (1.001-1.035) Urine Protein 2+ H (Negative) mg/dL Urine Glucose (UA) Negative (Negative) mg/dL Assessment and Plan Assessment and plan (1) Intentional overdose of insulin: Code(s): T38.3X2A - Poisoning by insulin and oral hypoglycemic [antidiabetic] drugs, intentional self-harm, initial encounter Status: Acute Assessment and Plan: Patient has history of his depression and suicide attempts in the past. She is diabetic and is on insulin Presented with persistent severe hyperglycemia with situation that would suggest intentional overdose of insulin Currently on D10 at 50 mL/hour and cortisone. Will monitor glucose closely (2) Acute respiratory failure: Code(s): J96.00 - Acute respiratory failure, unspecified whether with hypoxia or hypercapnia Status: Acute Assessment and Plan: Acute respiratory failure secondary to altered mental status secondary to hypoglycemia Patient may also have had a seizure and was postictal ABG and chest x-ray reviewed Critical care consult noted (3) Diabetes mellitus: Code(s): E11.9 - Type 2 diabetes mellitus without complications Status: Acute Assessment and Plan: Management of hyperglycemia as above (4) Hypokalemia: Code(s): E87.6 - Hypokalemia Status: Acute Assessment and Plan: Potassium replacement ordered and repeat BMP ordered (5) Altered mental status: Qualifiers: Altered mental status type: unspecified Qualified Code(s): R41.82 - Altered mental status, unspecified Code(s): R41.82 - Altered mental status, unspecified Status: Acute Assessment and Plan: Likely secondary to hypoglycemia. Patient may have had a seizure and was postictal. Currently now sedated but easily wakes up and follows commands intermittently Head CT was done and report pending Monitor (6) Hypoglycemia: Code(s): E16.2 - Hypoglycemia, unspecified Status: Acute Assessment and Plan: Suspected secondary to intentional overdose of insulin. Management as above. (7) Shock: Code(s): R57.9 - Shock, unspecified Status: Acute Assessment and Plan: Patient hypertensive post intubation and hypotension could be secondary to sedatives or sepsis Continue IV fluids and Levophed to maintain mean arterial pressure (8) Sepsis: Code(s): A41.9 - Sepsis, unspecified organism Status: Acute Assessment and Plan: Patient met criteria for sepsis had elevated WBC count and chest x-ray shows infiltrate or atelectasis in lower lobes Could be aspiration pneumonia Check blood and sputum culture Empiric Zosyn Check procalcitonin UA was unremarkable (9) Pneumonia: Code(s): J18.9 - Pneumonia, unspecified organism Status: Acute Assessment and Plan: See above Plan DVT prophylaxis -Lovenox Stress ulcer prophylaxis -PPI Nutrition -start Tube Feeds Code Status - Full Code Quality VTE Prophylaxis VTE prophylaxis: pharmacologic ordered
[2024-06-25 10:59] LABS: Glucose Point of Care 224 mg/dl (65-105)
[2024-06-25 11:55] LABS: Glucose Point of Care 267 mg/dl (65-105)
[2024-06-25] MEDS: DEXTROSE 10% 1,000 ML 150 ML IV CONT (12:11)
[2024-06-25 12:49] LABS: Glucose Point of Care 277 mg/dl (65-105)
[2024-06-25 13:09] LABS: Anion Gap 1 mmol/L (4-12); Blood Urea Nitrogen 7 mg/dL (7-17); Calcium 7.8 mg/dL (8.4-10.2); Carbon Dioxide 23 mmol/L (22-30); Chloride 108 mmol/L (98-107); Estimated CRCL calculation 199 ml/min; Estimated Glomerular Filt Rate > 60; Glucose 267 mg/dL (65-110); Potassium 3.6 mmol/L (3.4-5.0); Sodium 132 mmol/L (137-145)
[2024-06-25 13:53] LABS: Glucose Point of Care 308 mg/dl (65-105)
[2024-06-25 15:00] LABS: Glucose Point of Care 288 mg/dl (65-105)
[2024-06-25 16:05] LABS: Glucose Point of Care 308 mg/dl (65-105)
[2024-06-25] MEDS: MIDAZOLAM 100MG/NS 100ML(*CRX) 100 MG/100 ML BAG 6 MG IV CONT (17:04)
[2024-06-25 17:18] LABS: Glucose Point of Care 285 mg/dl (65-105)
[2024-06-25 19:06] LABS: Glucose Point of Care 294 mg/dl (65-105)
[2024-06-25 19:24] LABS: Anion Gap 2 mmol/L (4-12); Blood Urea Nitrogen 6 mg/dL (7-17); Calcium 7.4 mg/dL (8.4-10.2); Carbon Dioxide 23 mmol/L (22-30); Chloride 107 mmol/L (98-107); Estimated CRCL calculation 166 ml/min; Estimated Glomerular Filt Rate > 60; Glucose 289 mg/dL (65-110); Potassium 4.3 mmol/L (3.4-5.0); Sodium 132 mmol/L (137-145)
[2024-06-25] MEDS: DEXTROSE 5%/0.45% SOD CHL 1,000 ML 50 ML IV CONT (20:32)
[2024-06-25] MEDS: MIDAZOLAM HCL (*CRX) 2 MG/2 ML VIAL 4 MG IV PUSH (20:45)
[2024-06-25] MEDS: FENTANYL 2,500MCG/NS250ML(*CRX 2,500 MCG/250 ML BAG 20 MCG IV CONT (21:01)
[2024-06-25 21:18] LABS: Glucose Point of Care 314 mg/dl (65-105)
[2024-06-25 21:18] LABS: Glucose Point of Care 287 mg/dl (65-105)
[2024-06-25 22:17] LABS: Glucose Point of Care 317 mg/dl (65-105)
[2024-06-25 23:29] LABS: Glucose Point of Care 321 mg/dl (65-105)
[2024-06-25] MEDS: INSULIN ASPART (*BKC) 100 UNITS/ML SUB-Q (23:54)
[2024-06-26] VITALS (30 sets, daily range): BP systolic 85–131; BP diastolic 46–117; PULSE 67–135; RESP 0–35; TEMP 35.9–36.9; O2SAT 89–100; BMI 34.1
[2024-06-26] MEDS: PIPERACILLN/TAZ 3.375GM/NS50ML 3.375 GM/50 ML BAG IVPB ×4 (02:18→20:40)
[2024-06-26] MEDS: HYDROCORTISONE SODIUM SUCCINATE 100 MG/2 ML VIAL IV PUSH ×2 (02:19→08:51)
[2024-06-26] MEDS: MIDAZOLAM HCL (*CRX) 2 MG/2 ML VIAL 4 MG IV PUSH ×2 (02:19→05:14)
[2024-06-26 02:50] LABS: Anion Gap 0 mmol/L (4-12); Blood Urea Nitrogen 7 mg/dL (7-17); Calcium 7.8 mg/dL (8.4-10.2); Carbon Dioxide 25 mmol/L (22-30); Chloride 108 mmol/L (98-107); Estimated CRCL calculation 173 ml/min; Estimated Glomerular Filt Rate > 60; Glucose 283 mg/dL (65-110); Potassium 4.2 mmol/L (3.4-5.0); Sodium 133 mmol/L (137-145)
[2024-06-26] MEDS: INSULIN ASPART (*BKC) 100 UNITS/ML SUB-Q ×5 (04:58→20:55)
[2024-06-26 05:07] LABS: Glucose Point of Care 313 mg/dl (65-105)
[2024-06-26 05:10] LABS: Hematocrit 33.7 % (37.0-47.0); Hemoglobin 10.7 g/dL (12.0-15.0); Mean Corpuscular HGB Conc 31.8 g/dl (32-36); Mean Corpuscular Hemoglobin 28.2 pg (26-34); Mean Corpuscular Volume 88.9 fl (80-100); Mean Platelet Volume 10.5 fl (7.4-10.4); Platelet Count Result 140 k/mm3 (150-375); Red Blood Count 3.79 M/mm3 (4.2-5.4); Red Cell Distribution Width 15.3 % (11.5-14.5); White Blood Count 8.5 K/mm3 (4.5-10.0)
[2024-06-26 05:19] LABS: Alanine Aminotransferase 36 U/L (6-35); Alkaline Phosphatase 101 U/L (38-126); Anion Gap 2 mmol/L (4-12); Aspartate Amino Transferase 47 U/L (14-36); Bilirubin,Total 0.5 mg/dL (0.2-1.3); Blood Urea Nitrogen 7 mg/dL (7-17); Calcium 7.8 mg/dL (8.4-10.2); Carbon Dioxide 25 mmol/L (22-30); Chloride 108 mmol/L (98-107); Estimated CRCL calculation 166 ml/min; Estimated Glomerular Filt Rate > 60; Glucose 314 mg/dL (65-110); Magnesium 1.8 mg/dL (1.6-2.3); Potassium 4.3 mmol/L (3.4-5.0); Sodium 135 mmol/L (137-145)
[2024-06-26 05:26] LABS: Base Excess ABG -6.4 mEq/l (+/-2.0); Carboxyhemoglobin 0.7 % THb (0-2.0); Device VENTILATOR; Fractional Inspired Oxygen 30 %; HCO3 ABG 19.2 mEq/l (22.0-26.0); Methemoglobin ABG 0.3 %THb (0-1.5); Modified Allen's Test Pass; Oxygen Content ABG 15.3 %vol (16.0-22.0); Oxygen Saturation ABG 94.9 % (95.0-100.0); Oxyhemoglobin 94.1 % THb (90.0-100.0); PCO2 ABG 38.6 mmHg (35.0-45.0); PO2 ABG 79.5 mmHg (80.0-100.0); PO2 FiO2 Ratio Arterial Blood 2.65 %; Reduced Hemoglobin 4.9 %THb (0-5.0); Site Drawn RIGHT RADIAL; Total Hemoglobin 11.5 g/dL (12.0-18.0); pH ABG 7.315 (7.350-7.450)
[2024-06-26 05:27] LABS: Arterial Blood Gas PEEP 5 cmH2O; Arterial Blood Gas Tidal Volume 400 ml; Arterial Blood Gas Vent Mode CMV; Arterial Blood Gas Ventilator rate 18 /MIN
[2024-06-26] MEDS: MIDAZOLAM 100MG/NS 100ML(*CRX) 100 MG/100 ML BAG 12 MG IV CONT (05:31)
[2024-06-26] MEDS: CENTRAL LINE FLUSH 10 ML IV PUSH ×3 (05:36→20:40)
[2024-06-26 07:59] LABS: Glucose Point of Care 285 mg/dl (65-105)
[2024-06-26] MEDS: CALCIUM GLUC 2,000 MG/NS 100ML 2,000 MG/100 ML BAG 100 MG IVPB (08:51)
[2024-06-26] MEDS: PANTOPRAZOLE SODIUM IV 40 MG VIAL IV PUSH (08:51)
[2024-06-26] MEDS: ENOXAPARIN 40 MG/0.4 ML SYRINGE SUB-Q (08:51)
[2024-06-26] MEDS: MINERAL OIL/WHITE PETROLATUM OINTMENT 1 APPLIC EACH EYE (08:52)
--- NOTE | 2024-06-26 09:49 | P.PNINT_ITS ---
Progress Note: A&P Assessment and Plan (1) Intentional overdose of insulin: Code(s): T38.3X2A - Poisoning by insulin and oral hypoglycemic [antidiabetic] drugs, intentional self-harm, initial encounter Status: Acute Assessment and Plan: Patient has history of his depression and suicide attempts in the past. She is diabetic and is on insulin Presented with persistent severe hyperglycemia with situation that would suggest intentional overdose of insulin patient was treated with D10, glucagon and hydrocortisone hypoglycemia has not resolved and has been weaned off all treatments. Patient is infected hyperglycemic DC IV hydrocortisone continue tube feeding (2) Acute respiratory failure: Code(s): J96.00 - Acute respiratory failure, unspecified whether with hypoxia or hypercapnia Status: Acute Assessment and Plan: Acute respiratory failure secondary to altered mental status secondary to hypoglycemia Patient may also have had a seizure and was postictal ABG and chest x-ray reviewed Vent settings reviewed I placed patient on weaning trial will plan to extubate S access (3) Diabetes mellitus: Code(s): E11.9 - Type 2 diabetes mellitus without complications Status: Acute Assessment and Plan: start SSI (4) Hypokalemia: Code(s): E87.6 - Hypokalemia Status: Acute Assessment and Plan: Potassium replacement ordered and repeat BMP ordered (5) Altered mental status: Qualifiers: Altered mental status type: unspecified Qualified Code(s): R41.82 - Altered mental status, unspecified Code(s): R41.82 - Altered mental status, unspecified Status: Acute Assessment and Plan: Likely secondary to hyperglycemia. Patient may have had a seizure and was postictal. Currently now sedated but easily wakes up and follows commands intermittently Head CT was done and was negative Monitor (6) Hypoglycemia: Code(s): E16.2 - Hypoglycemia, unspecified Status: Acute Assessment and Plan: Suspected secondary to intentional overdose of insulin. Management as above. (7) Shock: Code(s): R57.9 - Shock, unspecified Status: Acute Assessment and Plan: Patient hypertensive post intubation and hypertension could be secondary to sedatives or sepsis was all (8) Sepsis: Code(s): A41.9 - Sepsis, unspecified organism Status: Acute Assessment and Plan: Patient met criteria for sepsis had elevated WBC count and chest x-ray shows infiltrate or atelectasis in lower lobes Could be aspiration pneumonia Check blood and sputum culture Empiric Zosyn procalcitonin was low UA was unremarkable (9) Pneumonia: Code(s): J18.9 - Pneumonia, unspecified organism Status: Acute Assessment and Plan: See above Plan DVT prophylaxis -Lovenox Stress ulcer prophylaxis -PPI Nutrition - currently on Tube Feeds Code Status - Full Code Total Critical Care Time - 32 minutes Due to a high probability of clinically significant, life threatening deteriora tion, the patient required my highest level of preparedness to intervene emergently and I personally spent this critical care time directly and personally managing the patient. This critical care time included obtaining a history; examining the patient; pulse oximetry; ordering and review of studies; arranging urgent treatment with development of a management plan; evaluation of patient's response to treatment; frequent reassessment; and discussions with other providers. It was exclusive of separately billable procedures and treating other patients and teaching time. Please see Assessment and Plan section and the rest of the note for further information on patient assessment and treatment Subjective Date/time seen: 06/26/24 Overnight events reviewed. Afebrile Continues to be on mechanical ventilation 30% FiO2 hypoglycemia resolved and patient has been weaned off or dextrose. Patient is in fact now hyperglycemic Continues to be sedated with fentanyl worse otherVitals acceptable Review of Systems Review of Systems: ROS unobtainable: Yes unobtainable due to endotracheal tube, unobtainable due to medical condition and unobtainable due to mental status Exam 2 Narrative: General: Pt is sedated, intubated and on mechanical ventilation Lungs/Chest: Trachea central Coarse BS B/L, No crackles or wheezing. Cardiac: RRR. Normal S1 S2. No murmurs Circulation: Pedal pulses are intact and symmetrical. Abdomen: Decreased bowel sounds. Obese. Soft. NT. ND. Extremities: No clubbing, cyanosis or edema. Warm : Weathers in place Neurologic: Patient is sedated but easily wakes up and tries to sit up. Moves all 4 extremities. Intermittently follows commands his hands PERRL Objective Data Vital Signs Vital Signs: Vital Signs - 24 hr 06/25/24 10:00 06/25/24 10:00 06/25/24 10:15 Temperature Pulse Rate 90 86 87 Respiratory Rate 18 18 Blood Pressure 128/63 Pulse Oximetry Oxygen Delivery Fraction of Inspired Oxygen 06/25/24 10:56 06/25/24 11:00 06/25/24 11:30 Temperature Pulse Rate 89 90 87 Respiratory Rate Blood Pressure 131/74 125/70 Pulse Oximetry 100 Oxygen Delivery Mechanical Ventilation Fraction of Inspired Oxygen 30 06/25/24 11:58 06/25/24 12:00 06/25/24 12:00 Temperature 36.4 C L Pulse Rate 88 86 87 Respiratory Rate 20 18 18 Blood Pressure 123/70 Pulse Oximetry 100 Oxygen Delivery Fraction of Inspired Oxygen 06/25/24 12:00 06/25/24 12:00 06/25/24 12:00 Temperature Pulse Rate 85 Respiratory Rate Blood Pressure 130/73 Pulse Oximetry Oxygen Delivery Mechanical Ventilation Fraction of Inspired Oxygen 30 06/25/24 12:30 06/25/24 13:00 06/25/24 13:27 Temperature Pulse Rate 85 83 88 Respiratory Rate Blood Pressure 117/70 114/66 Pulse Oximetry 100 Oxygen Delivery Mechanical Ventilation Fraction of Inspired Oxygen 30 06/25/24 13:43 06/25/24 14:00 06/25/24 14:00 Temperature 36.7 C Pulse Rate 86 92 92 Respiratory Rate 23 H 18 18 Blood Pressure 107/63 Pulse Oximetry 100 Oxygen Delivery Fraction of Inspired Oxygen 06/25/24 14:04 06/25/24 16:00 06/25/24 16:00 Temperature Pulse Rate 92 88 88 Respiratory Rate 18 18 Blood Pressure 107/62 Pulse Oximetry Oxygen Delivery Fraction of Inspired Oxygen 06/25/24 16:00 06/25/24 16:00 06/25/24 16:00 Temperature 36.8 C Pulse Rate 99 Respiratory Rate 18 Blood Pressure 101/60 Pulse Oximetry 97 Oxygen Delivery Mechanical Ventilation Fraction of Inspired Oxygen 30 06/25/24 16:14 06/25/24 16:27 06/25/24 17:04 Temperature Pulse Rate 91 88 81 Respiratory Rate 18 Blood Pressure 95/46 L Pulse Oximetry 97 Oxygen Delivery Mechanical Ventilation Fraction of Inspired Oxygen 30 06/25/24 17:54 06/25/24 18:00 06/25/24 18:06 Temperature 36.8 C Pulse Rate 80 81 85 Respiratory Rate 18 18 18 Blood Pressure 98/55 L Pulse Oximetry 100 Oxygen Delivery Fraction of Inspired Oxygen 06/25/24 20:00 06/25/24 20:00 06/25/24 20:00 Temperature Pulse Rate 130 H 130 H Respiratory Rate 38 H 38 H Blood Pressure Pulse Oximetry Oxygen Delivery Mechanical Ventilation Fraction of Inspired Oxygen 30 06/25/24 20:00 06/25/24 20:00 06/25/24 20:02 Temperature Pulse Rate 122 H 103 H Respiratory Rate Blood Pressure Pulse Oximetry 97 Oxygen Delivery Mechanical Ventilation Fraction of Inspired Oxygen 30 30 06/25/24 20:10 06/25/24 20:50 06/25/24 21:00 Temperature 36.9 C 36.5 C 36.6 C Pulse Rate 106 H 101 H 97 Respiratory Rate 10 L 19 14 Blood Pressure 106/52 L 108/55 L 105/59 L Pulse Oximetry 99 92 97 Oxygen Delivery Fraction of Inspired Oxygen 06/25/24 21:01 06/25/24 21:01 06/25/24 21:30 Temperature 36.5 C 36.3 C L Pulse Rate 99 100 97 Respiratory Rate 19 18 18 Blood Pressure 88/50 L Pulse Oximetry 98 98 Oxygen Delivery Fraction of Inspired Oxygen 06/25/24 22:00 06/25/24 22:00 06/25/24 22:00 Temperature 36.3 C L Pulse Rate 93 93 92 Respiratory Rate 18 18 18 Blood Pressure 99/61 L Pulse Oximetry 98 Oxygen Delivery Fraction of Inspired Oxygen 06/25/24 22:00 06/25/24 22:01 06/25/24 22:30 Temperature 36.2 C L Pulse Rate 92 98 90 Respiratory Rate 30 H 17 Blood Pressure Pulse Oximetry 99 Oxygen Delivery Fraction of Inspired Oxygen 06/25/24 22:30 06/25/24 22:57 06/25/24 23:00 Temperature 36.3 C L 36.3 C L Pulse Rate 85 86 88 Respiratory Rate 0 L 19 18 Blood Pressure 89/45 L 95/53 L Pulse Oximetry 97 98 Oxygen Delivery Fraction of Inspired Oxygen 06/25/24 23:00 06/25/24 23:15 06/25/24 23:30 Temperature 36.3 C L 36.4 C Pulse Rate 87 83 89 Respiratory Rate 15 12 Blood Pressure 91/54 L 89/51 L Pulse Oximetry 98 99 98 Oxygen Delivery Mechanical Ventilation Fraction of Inspired Oxygen 30 06/26/24 00:00 06/26/24 00:00 06/26/24 00:00 Temperature Pulse Rate 85 85 Respiratory Rate 15 18 Blood Pressure Pulse Oximetry Oxygen Delivery Mechanical Ventilation Fraction of Inspired Oxygen 30 06/26/24 00:00 06/26/24 00:00 06/26/24 00:00 Temperature 36.4 C Pulse Rate 92 118 H Respiratory Rate 35 H Blood Pressure Pulse Oximetry 99 Oxygen Delivery Fraction of Inspired Oxygen 30 06/26/24 00:06 06/26/24 00:12 06/26/24 00:25 Temperature 36.5 C 36.6 C Pulse Rate 120 H 135 H 93 Respiratory Rate 27 H 32 H 18 Blood Pressure 131/117 H 101/57 L Pulse Oximetry 89 L 97 Oxygen Delivery Fraction of Inspired Oxygen 06/26/24 00:30 06/26/24 00:32 06/26/24 00:45 Temperature 36.6 C 36.4 C Pulse Rate 94 91 90 Respiratory Rate 18 18 14 Blood Pressure 100/59 L 99/59 L Pulse Oximetry 96 97 Oxygen Delivery Fraction of Inspired Oxygen 06/26/24 00:45 06/26/24 01:01 06/26/24 01:16 Temperature 36.4 C L 36.3 C L Pulse Rate 91 90 90 Respiratory Rate 18 8 L 18 Blood Pressure 98/54 L Pulse Oximetry 98 99 Oxygen Delivery Fraction of Inspired Oxygen 06/26/24 01:31 06/26/24 01:45 06/26/24 02:00 Temperature 36.2 C L 36.2 C L 36.1 C L Pulse Rate 92 84 89 Respiratory Rate 18 18 18 Blood Pressure 98/55 L 93/58 L 97/64 L Pulse Oximetry 99 99 99 Oxygen Delivery Fraction of Inspired Oxygen 06/26/24 02:00 06/26/24 02:00 06/26/24 02:00 Temperature Pulse Rate 86 86 89 Respiratory Rate 18 18 Blood Pressure Pulse Oximetry Oxygen Delivery Fraction of Inspired Oxygen 06/26/24 02:08 06/26/24 04:00 06/26/24 04:00 Temperature Pulse Rate 98 76 76 Respiratory Rate 18 18 Blood Pressure Pulse Oximetry 100 Oxygen Delivery Mechanical Ventilation Fraction of Inspired Oxygen 30 06/26/24 04:00 06/26/24 04:00 06/26/24 04:00 Temperature 36.1 C L Pulse Rate 74 Respiratory Rate 10 L Blood Pressure 95/60 L Pulse Oximetry 97 Oxygen Delivery Mechanical Ventilation Fraction of Inspired Oxygen 30 30 06/26/24 04:00 06/26/24 05:00 06/26/24 05:01 Temperature 35.9 C L 35.9 C L Pulse Rate 74 81 81 Respiratory Rate 16 23 H Blood Pressure 89/61 L Pulse Oximetry 98 100 Oxygen Delivery Fraction of Inspired Oxygen 06/26/24 05:27 06/26/24 05:31 06/26/24 05:31 Temperature Pulse Rate 71 83 83 Respiratory Rate 18 18 Blood Pressure Pulse Oximetry 99 Oxygen Delivery Mechanical Ventilation Fraction of Inspired Oxygen 30 06/26/24 05:31 06/26/24 06:00 06/26/24 06:00 Temperature 36.1 C L 36.1 C L Pulse Rate 98 77 77 Respiratory Rate 24 H 0 L Blood Pressure 107/57 L 91/55 L Pulse Oximetry 97 98 Oxygen Delivery Fraction of Inspired Oxygen 06/26/24 06:00 06/26/24 06:00 06/26/24 08:00 Temperature Pulse Rate 79 79 73 Respiratory Rate 18 18 18 Blood Pressure Pulse Oximetry Oxygen Delivery Fraction of Inspired Oxygen 06/26/24 08:00 06/26/24 08:00 06/26/24 08:00 Temperature 36.1 C L Pulse Rate 72 69 85 Respiratory Rate 18 18 11 L Blood Pressure 85/50 L Pulse Oximetry 99 99 Oxygen Delivery Mechanical Ventilation Fraction of Inspired Oxygen 30 06/26/24 08:00 06/26/24 08:00 06/26/24 09:16 Temperature Pulse Rate 67 83 Respiratory Rate Blood Pressure Pulse Oximetry 97 Oxygen Delivery Mechanical Ventilation Fraction of Inspired Oxygen 30 30 Intake/Output Intake/Output: Intake & Output 06/23/24 06/24/24 06/25/24 06/26/24 23:59 23:59 23:59 23:59 Intake Total 7838.0 1045.2 Output Total 2150 1000 Balance 5688.0 45.2 Meds/Results Medications: Active Medications Generic Name Dose Route Start Last Admin Trade Name Freq PRN Reason Stop Dose Admin Dextrose 12.5 gm 06/25/24 23:33 Dextrose 50% 25 Gm/50 Ml Syringe IV PUSH PRN PRN Hypoglycemia Protocol Enoxaparin Sodium 40 mg 06/25/24 09:00 06/26/24 08:51 Enoxaparin 40 Mg/0.4 Ml Syringe SUB-Q 40 mg DAILY EDIE Administration Glucagon 1 mg 06/25/24 23:33 Glucagon For Inj 1 Mg Vial IM PRN PRN Hypoglycemia Protocol Glucose 30 gm 06/25/24 05:46 Glucose Oral Gel 15 Gm Of Glucse In 37.5 Gm Tube PO PRN PRN Hypoglycemia Glucose 15 gm 06/25/24 23:33 Glucose Oral Gel 15 Gm Of Glucse In 37.5 Gm Tube PO PRN PRN Hypoglycemia Protocol Hydrocortisone Sodium Succinate 100 mg 06/25/24 08:20 06/26/24 08:51 Hydrocortisone Sodium Succinate 100 Mg/2 Ml Vial IV PUSH 100 mg Q6H EDIE Administration Dextrose 1,000 mls @ 250 mls/hr 06/25/24 01:55 06/25/24 15:00 Dextrose 10% IV CONT 0 mls/hr .Q4H EDIE Infusion Fentanyl Citrate 2,500 mcg in 250 mls @ 0 mls/hr 06/25/24 07:15 06/26/24 08:00 Fentanyl 2,500 Mcg/Ns 250 Ml IV CONT 0 mcg/hr .Q0M EDIE 0 mls/hr Titration Protocol Midazolam HCl 100 mg in 100 mls @ 0 mls/hr 06/25/24 07:15 06/26/24 08:00 Versed 100 Mg/Ns 100 Ml IV CONT 0 mg/hr .Q0M EDIE 0 mls/hr Titration Protocol Piperacillin/Tazobactam/Dextrose 3.375 gm in 50 mls @ 100 mls/hr 06/25/24 08:15 06/26/24 08:52 Zosyn 3.375 Gm/Ns 50 Ml IVPB 100 mls/hr Q6H EDIE Administration Dextrose 1,000 mls @ 100 mls/hr 06/25/24 23:33 Dextrose 5% 1,000 Ml IVPB PRN PRN Hypoglycemia Protocol Insulin Aspart 4 - 8 units 06/26/24 09:00 06/26/24 08:52 Insulin Aspart (*Bkc) 100 Units/Ml SUB-Q 5 units Q4HR EDIE Administration Protocol Midazolam HCl 4 mg 06/26/24 00:12 06/26/24 05:14 Midazolam Hcl (*Crx) 2 Mg/2 Ml Vial IV PUSH 4 mg Q2H PRN Administration Sedation Multi-Ingred Cream/Lotion/Oil/Oint 1 applic 06/25/24 09:00 06/26/24 08:52 Mineral Oil/White Petrolatum Ointment EACH EYE 1 applic Q12HR EDIE Administration Pantoprazole Sodium 40 mg 06/25/24 09:00 06/26/24 08:51 Pantoprazole Sodium Iv 40 Mg Vial IV PUSH 40 mg QAM EDIE Administration Sodium Chloride 10 ml 06/25/24 06:00 06/26/24 05:36 Central Line Flush IV PUSH 10 ml Q8HR EDIE Administration Sodium Chloride 20 ml 06/25/24 05:03 Central Line Flush IV PUSH PRN PRN after blood draws Radiology Results: ITS Impressions Abdomen X-Ray 06/25/24 07:45 IMPRESSION: Orogastric tube tip in gastric antrum Head/Neck CTA 06/25/24 21:36 IMPRESSION: 1. Normal CTA head and neck. Percent stenosis per NASCET criteria is 0% 2. No acute intracranial hemorrhage or suspicious mass effect. Chest X-Ray 06/26/24 06:24 Impression: Clear lungs. Stable support tubes. Labs Labs: Laboratory Results - last 24 hr 06/25/24 06/25/24 06/25/24 08:22 08:41 09:50 WBC RBC Hgb Hct MCV MCH MCHC RDW Plt Count MPV Puncture Site ABG pH ABG pCO2 ABG pO2 ABG PO2/FiO2 Ratio ABG HCO3 ABG O2 Saturation ABG O2 Content ABG Base Excess A-a Gradient Oxyhemoglobin Carboxyhemoglobin Methemoglobin Reduced Hemoglobin Total Hemoglobin O2 Delivery Device O2 Liters/Min Minute Volume Vent Rate Vent Mode FiO2 Tidal Volume PEEP Peak Inspir Pressure Pressure Support Sodium Potassium Chloride Carbon Dioxide Anion Gap BUN Creatinine Estim Creat Clear Calc Estimated GFR Glucose POC Capillary Glucose 182 H Calcium Magnesium Total Bilirubin AST ALT Alkaline Phosphatase Total Protein Albumin Procalcitonin 0.3 Nasal MRSA (PCR) Not detected 06/25/24 06/25/24 06/25/24 10:49 11:51 12:43 WBC RBC Hgb Hct MCV MCH MCHC RDW Plt Count MPV Puncture Site ABG pH ABG pCO2 ABG pO2 ABG PO2/FiO2 Ratio ABG HCO3 ABG O2 Saturation ABG O2 Content ABG Base Excess A-a Gradient Oxyhemoglobin Carboxyhemoglobin Methemoglobin Reduced Hemoglobin Total Hemoglobin O2 Delivery Device O2 Liters/Min Minute Volume Vent Rate Vent Mode FiO2 Tidal Volume PEEP Peak Inspir Pressure Pressure Support Sodium 132 L Potassium 3.6 Chloride 108 H Carbon Dioxide 23 Anion Gap 1 L BUN 7 D Creatinine 0.34 L Estim Creat Clear Calc 199 Estimated GFR > 60 Glucose 267 H POC Capillary Glucose 224 H 267 H Calcium 7.8 L Magnesium Total Bilirubin AST ALT Alkaline Phosphatase Total Protein Albumin Procalcitonin Nasal MRSA (PCR) 06/25/24 06/25/24 06/25/24 12:46 13:49 14:54 WBC RBC Hgb Hct MCV MCH MCHC RDW Plt Count MPV Puncture Site ABG pH ABG pCO2 ABG pO2 ABG PO2/FiO2 Ratio ABG HCO3 ABG O2 Saturation ABG O2 Content ABG Base Excess A-a Gradient Oxyhemoglobin Carboxyhemoglobin Methemoglobin Reduced Hemoglobin Total Hemoglobin O2 Delivery Device O2 Liters/Min Minute Volume Vent Rate Vent Mode FiO2 Tidal Volume PEEP Peak Inspir Pressure Pressure Support Sodium Potassium Chloride Carbon Dioxide Anion Gap BUN Creatinine Estim Creat Clear Calc Estimated GFR Glucose POC Capillary Glucose 277 H 308 H 288 H Calcium Magnesium Total Bilirubin AST ALT Alkaline Phosphatase Total Protein Albumin Procalcitonin Nasal MRSA (PCR) 06/25/24 06/25/24 06/25/24 15:55 17:04 19:04 WBC RBC Hgb Hct MCV MCH MCHC RDW Plt Count MPV Puncture Site ABG pH ABG pCO2 ABG pO2 ABG PO2/FiO2 Ratio ABG HCO3 ABG O2 Saturation ABG O2 Content ABG Base Excess A-a Gradient Oxyhemoglobin Carboxyhemoglobin Methemoglobin Reduced Hemoglobin Total Hemoglobin O2 Delivery Device O2 Liters/Min Minute Volume Vent Rate Vent Mode FiO2 Tidal Volume PEEP Peak Inspir Pressure Pressure Support Sodium Potassium Chloride Carbon Dioxide Anion Gap BUN Creatinine Estim Creat Clear Calc Estimated GFR Glucose POC Capillary Glucose 308 H 285 H 294 H Calcium Magnesium Total Bilirubin AST ALT Alkaline Phosphatase Total Protein Albumin Procalcitonin Nasal MRSA (PCR) 06/25/24 06/25/24 06/25/24 19:07 20:19 21:08 WBC RBC Hgb Hct MCV MCH MCHC RDW Plt Count MPV Puncture Site ABG pH ABG pCO2 ABG pO2 ABG PO2/FiO2 Ratio ABG HCO3 ABG O2 Saturation ABG O2 Content ABG Base Excess A-a Gradient Oxyhemoglobin Carboxyhemoglobin Methemoglobin Reduced Hemoglobin Total Hemoglobin O2 Delivery Device O2 Liters/Min Minute Volume Vent Rate Vent Mode FiO2 Tidal Volume PEEP Peak Inspir Pressure Pressure Support Sodium 132 L Potassium 4.3 Chloride 107 Carbon Dioxide 23 Anion Gap 2 L BUN 6 L Creatinine 0.42 L Estim Creat Clear Calc 166 Estimated GFR > 60 Glucose 289 H POC Capillary Glucose 287 H 314 H Calcium 7.4 L Magnesium Total Bilirubin AST ALT Alkaline Phosphatase Total Protein Albumin Procalcitonin Nasal MRSA (PCR) 06/25/24 06/25/24 06/26/24 22:04 23:26 02:29 WBC RBC Hgb Hct MCV MCH MCHC RDW Plt Count MPV Puncture Site ABG pH ABG pCO2 ABG pO2 ABG PO2/FiO2 Ratio ABG HCO3 ABG O2 Saturation ABG O2 Content ABG Base Excess A-a Gradient Oxyhemoglobin Carboxyhemoglobin Methemoglobin Reduced Hemoglobin Total Hemoglobin O2 Delivery Device O2 Liters/Min Minute Volume Vent Rate Vent Mode FiO2 Tidal Volume PEEP Peak Inspir Pressure Pressure Support Sodium 133 L Potassium 4.2 Chloride 108 H Carbon Dioxide 25 Anion Gap 0 L BUN 7 Creatinine 0.40 L Estim Creat Clear Calc 173 Estimated GFR > 60 Glucose 283 H POC Capillary Glucose 317 H 321 H Calcium 7.8 L Magnesium Total Bilirubin AST ALT Alkaline Phosphatase Total Protein Albumin Procalcitonin Nasal MRSA (PCR) 06/26/24 06/26/24 06/26/24 04:57 05:02 05:12 WBC 8.5 RBC 3.79 L Hgb 10.7 L Hct 33.7 L MCV 88.9 MCH 28.2 MCHC 31.8 L RDW 15.3 H Plt Count 140 L MPV 10.5 H Puncture Site Right radial ABG pH 7.315 L ABG pCO2 38.6 ABG pO2 79.5 L ABG PO2/FiO2 Ratio 2.65 ABG HCO3 19.2 L ABG O2 Saturation 94.9 L ABG O2 Content 15.3 L ABG Base Excess -6.4 A-a Gradient 89.0 Oxyhemoglobin 94.1 Carboxyhemoglobin 0.7 Methemoglobin 0.3 Reduced Hemoglobin 4.9 Total Hemoglobin 11.5 L O2 Delivery Device Ventilator O2 Liters/Min Not Reportable Minute Volume Not Reportable Vent Rate 18 Vent Mode Cmv FiO2 30 Tidal Volume 400 PEEP 5 Peak Inspir Pressure Not Reportable Pressure Support Not Reportable Sodium 135 L Potassium 4.3 Chloride 108 H Carbon Dioxide 25 Anion Gap 2 L BUN 7 Creatinine 0.42 L Estim Creat Clear Calc 166 Estimated GFR > 60 Glucose 314 H POC Capillary Glucose 313 H Calcium 7.8 L Magnesium 1.8 Total Bilirubin 0.5 AST 47 H ALT 36 H Alkaline Phosphatase 101 Total Protein 6.0 L Albumin 3.0 L Procalcitonin Nasal MRSA (PCR) 06/26/24 07:49 WBC RBC Hgb Hct MCV MCH MCHC RDW Plt Count MPV Puncture Site ABG pH ABG pCO2 ABG pO2 ABG PO2/FiO2 Ratio ABG HCO3 ABG O2 Saturation ABG O2 Content ABG Base Excess A-a Gradient Oxyhemoglobin Carboxyhemoglobin Methemoglobin Reduced Hemoglobin Total Hemoglobin O2 Delivery Device O2 Liters/Min Minute Volume Vent Rate Vent Mode FiO2 Tidal Volume PEEP Peak Inspir Pressure Pressure Support Sodium Potassium Chloride Carbon Dioxide Anion Gap BUN Creatinine Estim Creat Clear Calc Estimated GFR Glucose POC Capillary Glucose 285 H Calcium Magnesium Total Bilirubin AST ALT Alkaline Phosphatase Total Protein Albumin Procalcitonin Nasal MRSA (PCR) Quality VTE Prophylaxis VTE prophylaxis: pharmacologic ordered
[2024-06-26 10:00] LABS: Alveolar/Arterial O2 Gradient 69.9 mmHg; Base Excess ABG -4.9 mEq/l (+/-2.0); Fractional Inspired Oxygen 30 %; HCO3 ABG 19.3 mEq/l (22.0-26.0); Oxygen Content ABG 15.7 %vol (16.0-22.0); Oxygen Saturation ABG 97.8 % (95.0-100.0); Oxyhemoglobin 96.9 % THb (90.0-100.0); PCO2 ABG 32.7 mmHg (35.0-45.0); PO2 ABG 105.6 mmHg (80.0-100.0); PO2 FiO2 Ratio Arterial Blood 3.52 %; Total Hemoglobin 11.4 g/dL (12.0-18.0); pH ABG 7.388 (7.350-7.450)
[2024-06-26 10:02] LABS: Device VENTILATOR; Modified Allen's Test Pass; Site Drawn RIGHT RADIAL
[2024-06-26 10:03] LABS: Arterial Blood Gas PEEP 5 cmH2O; Arterial Blood Gas Pressure Support 5 cmH2O; Arterial Blood Gas Vent Mode SPONTANEOUS
[2024-06-26 11:26] LABS: Glucose Point of Care 226 mg/dl (65-105)
[2024-06-26 16:47] LABS: Glucose Point of Care 236 mg/dl (65-105)
[2024-06-26 20:52] LABS: Glucose Point of Care 235 mg/dl (65-105)
[2024-06-26] MEDS: ACETAMINOPHEN 325 MG TABLET 650 MG PO (23:09)
[2024-06-27] VITALS (12 sets, daily range): BP systolic 101–137; BP diastolic 53–81; PULSE 76–91; RESP 13–22; TEMP 36.6–37; O2SAT 90–96
[2024-06-27 00:20] LABS: Glucose Point of Care 189 mg/dl (65-105)
[2024-06-27] MEDS: PIPERACILLN/TAZ 3.375GM/NS50ML 3.375 GM/50 ML BAG IVPB (01:41)
[2024-06-27 04:22] LABS: Glucose Point of Care 236 mg/dl (65-105)
[2024-06-27] MEDS: INSULIN ASPART (*BKC) 100 UNITS/ML SUB-Q ×2 (04:25→08:51)
[2024-06-27 04:39] LABS: Hematocrit 32.1 % (37.0-47.0); Hemoglobin 10.1 g/dL (12.0-15.0); Mean Corpuscular HGB Conc 31.5 g/dl (32-36); Mean Corpuscular Volume 88.9 fl (80-100); Platelet Count Result 107 k/mm3 (150-375); Red Blood Count 3.61 M/mm3 (4.2-5.4); Red Cell Distribution Width 15.5 % (11.5-14.5); White Blood Count 4.4 K/mm3 (4.5-10.0)
[2024-06-27 04:50] LABS: Alanine Aminotransferase 33 U/L (6-35); Albumin Level 2.7 g/dL (3.5-5.1); Alkaline Phosphatase 85 U/L (38-126); Anion Gap 3 mmol/L (4-12); Aspartate Amino Transferase 33 U/L (14-36); Bilirubin,Total 0.5 mg/dL (0.2-1.3); Blood Urea Nitrogen 12 mg/dL (7-17); Calcium 7.4 mg/dL (8.4-10.2); Carbon Dioxide 26 mmol/L (22-30); Chloride 105 mmol/L (98-107); Estimated CRCL calculation 145 ml/min; Estimated Glomerular Filt Rate > 60; Glucose 208 mg/dL (65-110); Magnesium 1.5 mg/dL (1.6-2.3); Potassium 3.5 mmol/L (3.4-5.0); Sodium 134 mmol/L (137-145)
[2024-06-27] MEDS: CENTRAL LINE FLUSH 10 ML IV PUSH ×3 (06:22→20:22)
[2024-06-27] MEDS: POTASSIUM CHLORIDE 20 MEQ PACKET (FOR LIQUID) 40 MEQ PO (08:47)
[2024-06-27] MEDS: CALCIUM GLUC 2,000 MG/NS 100ML 2,000 MG/100 ML BAG 100 MG IVPB (08:47)
[2024-06-27] MEDS: ENOXAPARIN 40 MG/0.4 ML SYRINGE SUB-Q (08:48)
[2024-06-27] MEDS: AMOXICILLIN/CLAVULANATE K 875-125 MG TAB 1 TABLET PO ×2 (08:48→20:21)
[2024-06-27] MEDS: INSULIN GLARGINE (*BKC) 100 UNITS/ML 25 UNITS SUB-Q (08:50)
--- NOTE | 2024-06-27 09:17 | P.PNINT_ITS ---
Progress Note: A&P Assessment and Plan (1) Intentional overdose of insulin: Code(s): T38.3X2A - Poisoning by insulin and oral hypoglycemic [antidiabetic] drugs, intentional self-harm, initial encounter Status: Acute Assessment and Plan: Patient has history of his depression and suicide attempts in the past. She is diabetic and is on insulin Presented with persistent severe hyperglycemia with situation that would suggest intentional overdose of insulin patient was treated with D10, glucagon and hydrocortisone hypoglycemia has not resolved and has been weaned off all treatments. Patient is infected hyperglycemic DC IV hydrocortisone Diet order (2) Acute respiratory failure: Code(s): J96.00 - Acute respiratory failure, unspecified whether with hypoxia or hypercapnia Status: Acute Assessment and Plan: Acute respiratory failure secondary to altered mental status secondary to hypoglycemia Patient may also have had a seizure and was postictal 06/27 extubated after a successful weaning trial. Incentive spirometry wean oxygen (3) Diabetes mellitus: Code(s): E11.9 - Type 2 diabetes mellitus without complications Status: Acute Assessment and Plan: continue SSI add Lantus (4) Hypokalemia: Code(s): E87.6 - Hypokalemia Status: Acute Assessment and Plan: Potassium replacement ordered and repeat BMP ordered (5) Altered mental status: Qualifiers: Altered mental status type: unspecified Qualified Code(s): R41.82 - Altered mental status, unspecified Code(s): R41.82 - Altered mental status, unspecified Status: Acute Assessment and Plan: Likely secondary to hyperglycemia. Patient may have had a seizure and was postictal. patient now alert oriented Head CT was done and was negative Monitor (6) Hypoglycemia: Code(s): E16.2 - Hypoglycemia, unspecified Status: Acute Assessment and Plan: Suspected secondary to intentional overdose of insulin. Management as above. (7) Shock: Code(s): R57.9 - Shock, unspecified Status: Acute Assessment and Plan: Patient hypertensive post intubation and hypertension could be secondary to sedatives or sepsis resolve (8) Sepsis: Code(s): A41.9 - Sepsis, unspecified organism Status: Acute Assessment and Plan: Patient met criteria for sepsis had elevated WBC count and chest x-ray shows infiltrate or atelectasis in lower lobes Could be aspiration pneumonia negative blood and sputum culture switch Zosyn to p.o. Augmentin procalcitonin was low UA was unremarkable (9) Pneumonia: Code(s): J18.9 - Pneumonia, unspecified organism Status: Acute Assessment and Plan: See above (10) Suicide attempt: Code(s): T14.91XA - Suicide attempt, initial encounter Status: Acute Assessment and Plan: patient suspected to have intentional overdose of insulin. She does have history of depression and suicide attempts in the past. currently she states she does not remember what happened. Continue suicide precautions and one-to-one sitter continue management of medical issues at this time. Will have Psychiatry evaluate patient most likely tomorrow. Plan DVT prophylaxis -Lovenox Stress ulcer prophylaxis -PPI Nutrition - diabetic diet Code Status - Full Code suicide precaution transfer to [facility] tele incentive spirometry PT OT Subjective Date/time seen: 06/27/24 patient was extubated yesterday after a successful weaning trial. Hypoglycemia has resolved. Patient is tolerating p.o. diet. She states she does not remember what happened and is resistant and answering any questions. She does admit to having some cough but no shortness of breath. i Patient denies fever, chest pain, shortness of breath nausea vomiting, abdominal pain,, diarrhea, headache or constipation. All other systems were reviewed and were negative Review of Systems Review of Systems: All systems reviewed & are unremarkable except as noted in HPI and below ( HPI) Exam Narrative: General: alert awake in no distress Lungs/Chest: Trachea central Coarse BS B/L, No crackles or wheezing. Cardiac: RRR. Normal S1 S2. No murmurs Circulation: Pedal pulses are intact and symmetrical. Abdomen: Decreased bowel sounds. Obese. Soft. NT. ND. Extremities: No clubbing, cyanosis or edema. Warm : Weathers in place Neurologic: Alert awake and in no distress follows command.. Moves all 4 extremities. AO x2 she answered the wrong here despite multiple times. It may be intentional. PERRL Objective Data Vital Signs Vital Signs: Vital Signs - 24 hr 06/26/24 10:00 06/26/24 10:00 06/26/24 10:00 Temperature 36.3 C L Pulse Rate 97 67 82 Respiratory Rate 27 H 14 Blood Pressure 89/46 L Pulse Oximetry 100 Oxygen Delivery Oxygen Flow Rate Fraction of Inspired Oxygen 06/26/24 10:00 06/26/24 10:16 06/26/24 12:00 Temperature 36.6 C Pulse Rate 82 89 89 Respiratory Rate 14 18 11 L Blood Pressure 94/63 L Pulse Oximetry 98 94 Oxygen Delivery Nasal Cannula Oxygen Flow Rate 2 Fraction of Inspired Oxygen 06/26/24 12:00 06/26/24 12:00 06/26/24 14:00 Temperature 36.7 C Pulse Rate 95 109 H 86 Respiratory Rate 15 18 Blood Pressure 107/62 Pulse Oximetry 98 99 Oxygen Delivery Nasal Cannula Oxygen Flow Rate 2 Fraction of Inspired Oxygen 06/26/24 16:00 06/26/24 16:00 06/26/24 16:00 Temperature 36.8 C Pulse Rate 82 102 H 97 Respiratory Rate 12 17 Blood Pressure 104/55 L Pulse Oximetry 96 99 Oxygen Delivery Nasal Cannula Oxygen Flow Rate 2 Fraction of Inspired Oxygen 06/26/24 18:00 06/26/24 18:00 06/26/24 20:00 Temperature 36.9 C Pulse Rate 93 94 Respiratory Rate 11 L Blood Pressure 108/69 Pulse Oximetry 98 97 Oxygen Delivery Nasal Cannula Oxygen Flow Rate 1 Fraction of Inspired Oxygen 06/26/24 20:00 06/26/24 20:00 06/26/24 20:31 Temperature 36.7 C Pulse Rate 84 84 Respiratory Rate 12 Blood Pressure 111/55 L Pulse Oximetry 98 97 Oxygen Delivery Nasal Cannula Oxygen Flow Rate 1 Fraction of Inspired Oxygen 24 06/26/24 22:00 06/26/24 22:00 06/27/24 00:00 Temperature Pulse Rate 89 89 Respiratory Rate 14 Blood Pressure 103/59 L Pulse Oximetry 97 96 Oxygen Delivery Nasal Cannula Oxygen Flow Rate 1 Fraction of Inspired Oxygen 06/27/24 00:00 06/27/24 00:00 06/27/24 02:00 Temperature 37.0 C Pulse Rate 91 91 86 Respiratory Rate 16 Blood Pressure 101/53 L Pulse Oximetry 96 Oxygen Delivery Oxygen Flow Rate Fraction of Inspired Oxygen 06/27/24 02:00 06/27/24 04:00 06/27/24 04:00 Temperature 36.9 C Pulse Rate 86 84 Respiratory Rate 13 13 Blood Pressure 107/56 L 116/65 Pulse Oximetry 94 93 95 Oxygen Delivery Nasal Cannula Oxygen Flow Rate 1 Fraction of Inspired Oxygen 06/27/24 04:00 06/27/24 06:00 06/27/24 06:00 Temperature Pulse Rate 80 84 84 Respiratory Rate 19 Blood Pressure 111/62 Pulse Oximetry 95 Oxygen Delivery Oxygen Flow Rate Fraction of Inspired Oxygen Intake/Output Intake/Output: Intake & Output 06/24/24 06/25/24 06/26/24 06/27/24 23:59 23:59 23:59 23:59 Intake Total 7838.0 1655.2 250 Output Total 2150 1450 300 Balance 5688.0 205.2 -50 Meds/Results Medications: Active Medications Generic Name Dose Route Start Last Admin Trade Name Freq PRN Reason Stop Dose Admin Acetaminophen 650 mg 06/26/24 22:52 06/26/24 23:09 Acetaminophen 325 Mg Tablet PO 650 mg Q6H PRN Administration Mild Pain (1-3) or Fever Amoxicillin/Clavulanate Potassium 1 tablet 06/27/24 09:00 06/27/24 08:48 Amoxicillin/Clavulanate K 875-125 Mg Tab PO 1 tablet Q12HR EDIE Administration Dextrose 12.5 gm 06/25/24 23:33 Dextrose 50% 25 Gm/50 Ml Syringe IV PUSH PRN PRN Hypoglycemia Protocol Enoxaparin Sodium 40 mg 06/25/24 09:00 06/27/24 08:48 Enoxaparin 40 Mg/0.4 Ml Syringe SUB-Q 40 mg DAILY EDIE Administration Glucagon 1 mg 06/25/24 23:33 Glucagon For Inj 1 Mg Vial IM PRN PRN Hypoglycemia Protocol Glucose 30 gm 06/25/24 05:46 Glucose Oral Gel 15 Gm Of Glucse In 37.5 Gm Tube PO PRN PRN Hypoglycemia Glucose 15 gm 06/25/24 23:33 Glucose Oral Gel 15 Gm Of Glucse In 37.5 Gm Tube PO PRN PRN Hypoglycemia Protocol Dextrose 1,000 mls @ 100 mls/hr 06/25/24 23:33 Dextrose 5% 1,000 Ml IVPB PRN PRN Hypoglycemia Protocol Magnesium Sulfate 2 gm in 50 mls @ 25 mls/hr 06/27/24 07:44 Magnesium Sulf 2 Gm/Water 50ml IVPB 06/27/24 09:43 ONCE ONE Insulin Aspart 3 - 6 units 06/27/24 08:00 06/27/24 08:51 Insulin Aspart (*Bkc) 100 Units/Ml SUB-Q 3 units TIDWM EDIE Administration Protocol Insulin Aspart 1 - 3 units 06/27/24 21:00 Insulin Aspart (*Bkc) 100 Units/Ml SUB-Q HS EDIE Protocol Insulin Glargine 25 units 06/27/24 09:00 06/27/24 08:50 Insulin Glargine (*Bkc) 100 Units/Ml SUB-Q 25 units QAM EDIE Administration Potassium Chloride 40 meq 06/27/24 07:45 06/27/24 08:47 Potassium Chloride 20 Meq Packet (For Liquid) PO 06/27/24 13:46 40 meq Q6H EDIE Administration Sodium Chloride 10 ml 06/25/24 06:00 06/27/24 06:22 Central Line Flush IV PUSH 10 ml Q8HR EDIE Administration Sodium Chloride 20 ml 06/25/24 05:03 Central Line Flush IV PUSH PRN PRN after blood draws Radiology Results: ITS Impressions Abdomen X-Ray 06/25/24 07:45 IMPRESSION: Orogastric tube tip in gastric antrum Head/Neck CTA 06/25/24 21:36 IMPRESSION: 1. Normal CTA head and neck. Percent stenosis per NASCET criteria is 0% 2. No acute intracranial hemorrhage or suspicious mass effect. Chest X-Ray 06/27/24 06:28 Impression: Clear lungs. Right IJ line. Labs Labs: Laboratory Results - last 24 hr 06/26/24 06/26/24 06/26/24 09:58 11:23 16:42 WBC RBC Hgb Hct MCV MCH MCHC RDW Plt Count MPV Puncture Site Right radial ABG pH 7.388 ABG pCO2 32.7 L ABG pO2 105.6 H ABG PO2/FiO2 Ratio 3.52 ABG HCO3 19.3 L ABG O2 Saturation 97.8 ABG O2 Content 15.7 L ABG Base Excess -4.9 A-a Gradient 69.9 Oxyhemoglobin 96.9 Total Hemoglobin 11.4 L O2 Delivery Device Ventilator O2 Liters/Min Not Reportable Minute Volume Not Reportable Vent Rate Not Reportable Vent Mode Spontaneous FiO2 30 Tidal Volume Not Reportable PEEP 5 Peak Inspir Pressure Not Reportable Pressure Support 5 Sodium Potassium Chloride Carbon Dioxide Anion Gap BUN Creatinine Estim Creat Clear Calc Estimated GFR Glucose POC Capillary Glucose 226 H 236 H Calcium Magnesium Total Bilirubin AST ALT Alkaline Phosphatase Total Protein Albumin 06/26/24 06/26/24 06/27/24 20:41 23:55 03:56 WBC RBC Hgb Hct MCV MCH MCHC RDW Plt Count MPV Puncture Site ABG pH ABG pCO2 ABG pO2 ABG PO2/FiO2 Ratio ABG HCO3 ABG O2 Saturation ABG O2 Content ABG Base Excess A-a Gradient Oxyhemoglobin Total Hemoglobin O2 Delivery Device O2 Liters/Min Minute Volume Vent Rate Vent Mode FiO2 Tidal Volume PEEP Peak Inspir Pressure Pressure Support Sodium Potassium Chloride Carbon Dioxide Anion Gap BUN Creatinine Estim Creat Clear Calc Estimated GFR Glucose POC Capillary Glucose 235 H 189 H 236 H Calcium Magnesium Total Bilirubin AST ALT Alkaline Phosphatase Total Protein Albumin 06/27/24 04:30 WBC 4.4 L RBC 3.61 L Hgb 10.1 L Hct 32.1 L MCV 88.9 MCH 28.0 MCHC 31.5 L RDW 15.5 H Plt Count 107 L MPV 10.0 Puncture Site ABG pH ABG pCO2 ABG pO2 ABG PO2/FiO2 Ratio ABG HCO3 ABG O2 Saturation ABG O2 Content ABG Base Excess A-a Gradient Oxyhemoglobin Total Hemoglobin O2 Delivery Device O2 Liters/Min Minute Volume Vent Rate Vent Mode FiO2 Tidal Volume PEEP Peak Inspir Pressure Pressure Support Sodium 134 L Potassium 3.5 Chloride 105 Carbon Dioxide 26 Anion Gap 3 L BUN 12 D Creatinine 0.51 L Estim Creat Clear Calc 145 Estimated GFR > 60 Glucose 208 H POC Capillary Glucose Calcium 7.4 L Magnesium 1.5 L Total Bilirubin 0.5 AST 33 ALT 33 Alkaline Phosphatase 85 Total Protein 5.0 L Albumin 2.7 L Quality VTE Prophylaxis VTE prophylaxis: pharmacologic ordered
[2024-06-27] MEDS: MAGNESIUM SULF 2 GM/WATER 50ML 2 GM/50 ML BAG IVPB (09:22)
--- NOTE | 2024-06-27 11:21 | PCNFU ---
Nutrition Follow-Up Complete: Abnormal nutrition related lab values related to type 1 diabetes as evidenced by BG readings Goal: Adequate PO intake at least 75% meals and supplements Patient will continue current goal. Pt current nutrition is DBCC with Glucerna shakes BID. Last recorded weight is 93.1 kg, down from 98.8 kg on admit. Bowel Motility: +BM reported 06/27 Labs Reviewed: Mg 1.5, Glu 208, Hct 32.1, Hgb 10.1, Hgb 32.1 Meds Noted: NovoLog,Lantus Skin: WNL Additional Notes: Patient remains on a DBCC diet. Refused breakfast today, sleepy. Glucerna shakes added BID for additional kcal and protein needs. Agree with diet orders. Monitoring intakes, weights, labs, meds, plan of care Follow up in 5 days. Daily in ICU rounds
[2024-06-27 11:49] LABS: Glucose Point of Care 121 mg/dl (65-105)
[2024-06-27 17:14] LABS: Glucose Point of Care 120 mg/dl (65-105)
[2024-06-27] MEDS: ACETAMINOPHEN 325 MG TABLET 650 MG PO (20:42)
[2024-06-27 20:47] LABS: Glucose Point of Care 141 mg/dl (65-105)
[2024-06-28] VITALS: BP 140/73; PULSE 73; PULSE 75; RESP 18; TEMP 37.1; O2SAT 95
[2024-06-28] MEDS: traZODone HCL 50 MG TABLET PO (02:07)
[2024-06-28 04:00] VITALS: PULSE 78
[2024-06-28 05:16] LABS: Hematocrit 34.7 % (37.0-47.0); Hemoglobin 11.6 g/dL (12.0-15.0); Mean Corpuscular HGB Conc 33.4 g/dl (32-36); Mean Corpuscular Hemoglobin 28.8 pg (26-34); Mean Corpuscular Volume 86.1 fl (80-100); Mean Platelet Volume 10.2 fl (7.4-10.4); Platelet Count Result 128 k/mm3 (150-375); Red Blood Count 4.03 M/mm3 (4.2-5.4); White Blood Count 8.3 K/mm3 (4.5-10.0)
[2024-06-28 05:28] LABS: Alanine Aminotransferase 44 U/L (6-35); Albumin Level 3.2 g/dL (3.5-5.1); Alkaline Phosphatase 101 U/L (38-126); Anion Gap 3 mmol/L (4-12); Aspartate Amino Transferase 60 U/L (14-36); Bilirubin,Total 0.6 mg/dL (0.2-1.3); Blood Urea Nitrogen 8 mg/dL (7-17); Calcium 8.3 mg/dL (8.4-10.2); Carbon Dioxide 30 mmol/L (22-30); Chloride 100 mmol/L (98-107); Estimated CRCL calculation 195 ml/min; Estimated Glomerular Filt Rate > 60; Glucose 173 mg/dL (65-110); Magnesium 1.6 mg/dL (1.6-2.3); Potassium 3.7 mmol/L (3.4-5.0); Sodium 133 mmol/L (137-145)
[2024-06-28] MEDS: CENTRAL LINE FLUSH 10 ML IV PUSH (06:24)
[2024-06-28 08:00] VITALS: BP 121/59; PULSE 80; PULSE 83; RESP 19; TEMP 36.9; O2SAT 94
[2024-06-28 08:04] LABS: Glucose Point of Care 178 mg/dl (65-105)
[2024-06-28 08:21] VITALS: O2SAT 92
[2024-06-28] MEDS: PREGABALIN (*CRX) 50 MG CAPSULE 200 MG PO ×3 (09:07→17:17)
[2024-06-28] MEDS: busPIRone HCL 10 MG TABLET 30 MG PO (09:07)
[2024-06-28] MEDS: DULoxetine HCL 60 MG CAPSULE.DR BY MOUTH (09:07)
[2024-06-28] MEDS: AMOXICILLIN/CLAVULANATE K 875-125 MG TAB 1 TABLET PO (09:07)
[2024-06-28] MEDS: FUROSEMIDE INJ 40 MG/4 ML VIAL 20 MG IV PUSH (09:08)
[2024-06-28] MEDS: INSULIN GLARGINE (*BKC) 100 UNITS/ML 25 UNITS SUB-Q (09:08)
[2024-06-28] MEDS: ENOXAPARIN 40 MG/0.4 ML SYRINGE SUB-Q (09:08)
--- NOTE | 2024-06-28 09:53 | PC.NURSE ---
Poison control is not following patient. Asked if there was an open case. Poison control stated no case was every opened.
[2024-06-28 11:07] LABS: Influenza A QL RT-PCR Negative (Negative); Influenza B QL RT-PCR Negative (Negative); RSV RNA, RT-PCR Negative (Negative); SARS-CoV-2 RNA PCR Negative (Negative)
[2024-06-28 12:47] LABS: Glucose Point of Care 166 mg/dl (65-105)
--- NOTE | 2024-06-28 13:59 | ECG_ITS ---
Test Date: 2024-06-28 14:27:53 Measurements Intervals [place] Rate: 79 P: 242 [place]: 151 QRS: 48 QRSD: 92 T: 37 QT: 397 QTc: 456 Interpretive Statements ECTOPIC ATRIAL RHYTHM Compared to ECG 06/25/2024 01:10:43 Ectopic atrial rhythm now present Electronically Signed On 06-28-2024 14:41:46 PERSONNEL QUALITY ASSURANCE AUDITOR by Herminio Bill M.D.
--- NOTE | 2024-06-28 14:13 | P.PNIM_ITS ---
Progress Note: A&P Assessment and Plan (1) Intentional overdose of insulin: Code(s): T38.3X2A - Poisoning by insulin and oral hypoglycemic [antidiabetic] drugs, intentional self-harm, initial encounter Status: Acute Assessment and Plan: Patient has history of his depression and suicide attempts in the past. She is diabetic and is on insulin Presented with persistent severe hyperglycemia with situation that would suggest intentional overdose of insulin patient was treated with D10, glucagon and hydrocortisone hypoglycemia has resolved and has been weaned off all treatments. Patient is hyperglycemic, requiring sliding scale insulin and Lantus Hydrocortisone was DC The continue diabetic diet (2) Acute respiratory failure: Code(s): J96.00 - Acute respiratory failure, unspecified whether with hypoxia or hypercapnia Status: Acute Assessment and Plan: Acute respiratory failure secondary to altered mental status secondary to hypoglycemia Patient may also have had a seizure and was postictal 06/27 extubated after a successful weaning trial. Incentive spirometry Currently on room air (3) Diabetes mellitus: Code(s): E11.9 - Type 2 diabetes mellitus without complications Status: Acute Assessment and Plan: continue SSI and Accu-Cheks Continue Lantus (4) Hypokalemia: Code(s): E87.6 - Hypokalemia Status: Acute Assessment and Plan: Potassium has normalized -will replace magnesium (5) Altered mental status: Qualifiers: Altered mental status type: unspecified Qualified Code(s): R41.82 - Altered mental status, unspecified Code(s): R41.82 - Altered mental status, unspecified Status: Acute Assessment and Plan: Likely secondary to hypoglycemia. Patient may have had a seizure and was postictal. -now alert and oriented Head CT was done and was negative Monitor (6) Hypoglycemia: Code(s): E16.2 - Hypoglycemia, unspecified Status: Acute Assessment and Plan: Resolved Suspected secondary to intentional overdose of insulin. Management as above. (7) Shock: Code(s): R57.9 - Shock, unspecified Status: Acute Assessment and Plan: Patient hypotensive post intubation which could be secondary to sedatives or sepsis RESOLVED (8) Sepsis: Code(s): A41.9 - Sepsis, unspecified organism Status: Acute Assessment and Plan: Patient met criteria for sepsis had elevated WBC count and chest x-ray shows infiltrate or atelectasis in lower lobes Could be aspiration pneumonia negative blood and sputum culture DC Augmentin procalcitonin was low UA was unremarkable (9) Pneumonia: Code(s): J18.9 - Pneumonia, unspecified organism Status: Acute Assessment and Plan: See above (10) Suicide attempt: Code(s): T14.91XA - Suicide attempt, initial encounter Status: Acute Assessment and Plan: patient suspected to have intentional overdose of insulin. She does have history of depression and suicide attempts in the past. currently she states she does not remember what happened. Continue suicide precautions and one-to-one sitter Patient is medically stable Will have crisis management and care coordination evaluate the patient -patient would likely benefit from inpatient psychiatry unit Plan DVT prophylaxis -Lovenox Stress ulcer prophylaxis -PPI Nutrition - diabetic diet Code Status - Full Code - suicide precautions Subjective Date/time seen: 06/28/24 14:13 Interval history: Reason for consult: Intentional insulin overdose, acute respiratory failure 06/28/2024: Patient being seen for hospitalist group Patient seen and examined the ICU, is awake, alert, oriented, denies any shortness of breath, chest pain, abdominal pain, nausea vomiting. Hemodynamically stable, urine output has been adequate, afebrile. Review of Systems Review of Systems: All systems reviewed & are unremarkable except as noted in HPI and below ( HPI) Exam Narrative: General: alert awake in no distress Lungs/Chest: Trachea central Coarse BS B/L, No crackles or wheezing. Cardiac: RRR. Normal S1 S2. No murmurs Circulation: Pedal pulses are intact and symmetrical. Abdomen: Decreased bowel sounds. Obese. Soft. NT. ND. Extremities: No clubbing, cyanosis or edema. Warm : Weathers in place Neurologic: Patient is awake, alert, oriented, answers to questions appropriately and follows simple commands in all extremities. PERRL Psych: Flat affect, normal mentation Objective Data Vital Signs Vital Signs: Vital Signs - 24 hr 06/27/24 14:38 06/27/24 16:00 06/27/24 16:00 Temperature 98.5 F Pulse Rate 76 76 Respiratory Rate 18 Blood Pressure 137/81 Pulse Oximetry 96 93 Oxygen Delivery Room Air Oxygen Flow Rate 06/27/24 20:00 06/27/24 20:00 06/27/24 20:50 Temperature Pulse Rate 86 Respiratory Rate Blood Pressure Pulse Oximetry 90 91 Oxygen Delivery Nasal Cannula Nasal Cannula Oxygen Flow Rate 1 1 06/27/24 21:30 06/27/24 21:30 06/28/24 00:00 Temperature 98.7 F Pulse Rate 75 Respiratory Rate 18 Blood Pressure 140/73 Pulse Oximetry 93 94 95 Oxygen Delivery Nasal Cannula Nasal Cannula Oxygen Flow Rate 2 2 06/28/24 00:00 06/28/24 04:00 06/28/24 08:00 Temperature Pulse Rate 73 78 Respiratory Rate Blood Pressure Pulse Oximetry 94 Oxygen Delivery Nasal Cannula Oxygen Flow Rate 1 06/28/24 08:00 06/28/24 08:00 06/28/24 08:21 Temperature 98.5 F Pulse Rate 80 83 Respiratory Rate 19 Blood Pressure 121/59 L Pulse Oximetry 94 92 Oxygen Delivery Nasal Cannula Oxygen Flow Rate 1 06/28/24 13:10 Temperature Pulse Rate Respiratory Rate Blood Pressure Pulse Oximetry Oxygen Delivery Room Air Oxygen Flow Rate Intake/Output Intake/Output: Intake & Output 06/25/24 06/26/24 06/27/24 06/28/24 23:59 23:59 23:59 23:59 Intake Total 7838.0 1655.2 550 470 Output Total 2150 8980 612 5374 Balance 5688.0 205.2 250 -780 Meds/Results Medications: Active Medications Generic Name Dose Route Start Last Admin Trade Name Freq PRN Reason Stop Dose Admin Acetaminophen 650 mg 06/26/24 22:52 06/27/24 20:42 Acetaminophen 325 Mg Tablet PO 650 mg Q6H PRN Administration Mild Pain (1-3) or Fever Buspirone HCl 30 mg 06/28/24 09:00 06/28/24 09:07 Buspirone Hcl 10 Mg Tablet PO 30 mg Q12HR EDIE Administration Dextrose 12.5 gm 06/25/24 23:33 Dextrose 50% 25 Gm/50 Ml Syringe IV PUSH PRN PRN Hypoglycemia Protocol Duloxetine HCl 60 mg 06/28/24 09:00 06/28/24 09:07 Duloxetine Hcl 60 Mg Capsule.Dr BY MOUTH 60 mg DAILY EDIE Administration Enoxaparin Sodium 40 mg 06/25/24 09:00 06/28/24 09:08 Enoxaparin 40 Mg/0.4 Ml Syringe SUB-Q 40 mg DAILY EDIE Administration Glucagon 1 mg 06/25/24 23:33 Glucagon For Inj 1 Mg Vial IM PRN PRN Hypoglycemia Protocol Glucose 30 gm 06/25/24 05:46 Glucose Oral Gel 15 Gm Of Glucse In 37.5 Gm Tube PO PRN PRN Hypoglycemia Glucose 15 gm 06/25/24 23:33 Glucose Oral Gel 15 Gm Of Glucse In 37.5 Gm Tube PO PRN PRN Hypoglycemia Protocol Dextrose 1,000 mls @ 100 mls/hr 06/25/24 23:33 Dextrose 5% 1,000 Ml IVPB PRN PRN Hypoglycemia Protocol Insulin Aspart 3 - 6 units 06/27/24 08:00 06/28/24 13:07 Insulin Aspart (*Bkc) 100 Units/Ml SUB-Q Not Given TIDWM [facility] Protocol Insulin Aspart 1 - 3 units 06/27/24 21:00 06/27/24 20:42 Insulin Aspart (*Bkc) 100 Units/Ml SUB-Q Not Given HS [facility] Protocol Insulin Glargine 25 units 06/27/24 09:00 06/28/24 09:08 Insulin Glargine (*Bkc) 100 Units/Ml SUB-Q 25 units QAM [facility] Administration Miscellaneous Information 0 each 06/28/24 00:01 Dextroamphetamine Sulfate 30 Mg Is Non-Formulary. Use Pt Own Supply? XX 07/28/24 00:00 CLARIFY [facility] Non-Formulary Medication 30 mg 06/28/24 14:00 Dextroamphetamine Sulfate PO 07/28/24 13:59 DAILY@1400 [facility] Pregabalin 200 mg 06/28/24 09:00 06/28/24 13:15 Pregabalin (*Crx) 50 Mg Capsule PO 200 mg TID [facility] Administration Sodium Chloride 10 ml 06/25/24 06:00 06/28/24 13:34 Central Line Flush IV PUSH Not Given Q8HR [facility] Sodium Chloride 20 ml 06/25/24 05:03 Central Line Flush IV PUSH PRN PRN after blood draws Radiology Results: ITS Impressions Abdomen X-Ray 06/25/24 07:45 IMPRESSION: Orogastric tube tip in gastric antrum Head/Neck CTA 06/25/24 21:36 IMPRESSION: 1. Normal CTA head and neck. Percent stenosis per NASCET criteria is 0% 2. No acute intracranial hemorrhage or suspicious mass effect. Chest X-Ray 06/28/24 06:48 Impression: Mild developing pulmonary edema and central congestive change. Right IJ line in place. Labs Labs: Laboratory Results - last 24 hr 06/27/24 06/27/24 06/28/24 17:12 20:40 05:08 WBC 8.3 RBC 4.03 L Hgb 11.6 L Hct 34.7 L MCV 86.1 MCH 28.8 MCHC 33.4 RDW 15.0 H Plt Count 128 L MPV 10.2 Sodium 133 L Potassium 3.7 Chloride 100 Carbon Dioxide 30 Anion Gap 3 L BUN 8 Creatinine 0.35 L Estim Creat Clear Calc 195 Estimated GFR > 60 Glucose 173 H POC Capillary Glucose 120 H 141 H Calcium 8.3 L Magnesium 1.6 Total Bilirubin 0.6 AST 60 H ALT 44 H Alkaline Phosphatase 101 Total Protein 6.0 L Albumin 3.2 L Influenza A (RT-PCR) Influenza B (RT-PCR) RSV (RT-PCR) SARS-CoV-2 RNA (RT-PCR) 06/28/24 06/28/24 06/28/24 08:02 10:24 12:42 WBC RBC Hgb Hct MCV MCH MCHC RDW Plt Count MPV Sodium Potassium Chloride Carbon Dioxide Anion Gap BUN Creatinine Estim Creat Clear Calc Estimated GFR Glucose POC Capillary Glucose 178 H 166 H Calcium Magnesium Total Bilirubin AST ALT Alkaline Phosphatase Total Protein Albumin Influenza A (RT-PCR) Negative Influenza B (RT-PCR) Negative RSV (RT-PCR) Negative SARS-CoV-2 RNA (RT-PCR) Negative Quality VTE Prophylaxis VTE prophylaxis: pharmacologic ordered
[2024-06-28 16:00] VITALS: BP 124/73; PULSE 86; RESP 16; TEMP 37.2; O2SAT 93
[2024-06-28 17:02] LABS: Glucose Point of Care 164 mg/dl (65-105)
[2024-06-28 17:10] LABS: Pregnancy On Board Control Positive; Urine Pregnancy Test Negative
[2024-06-30 08:24] LABS: Glucose Point of Care < 20 mg/dl (65-105)
--- OUTSIDE RECORDS SUMMARY | 2024-07-02 03:50 | XMS_ITS | Data Portability ---
Author Organization [place] [facility], Main Office Address [address] [place] [address] Care Team Providers Care Sales Service Technician Name Role Phone TAMARA NEWBY Primary Care Provider TAMARA NEWBY Referring Provider [phone] FERN LARRY Primary Care Provider [phone] Assessment Encounter Date Assessment Date Assessment LastModified by Organization Details LastModified Time 09/14/2023 09/14/2023 The patient has a healing fracture of the 5th metacarpal neck right hand. Overall alignment looks unchanged from previous x-rays a week ago post reduction. No significant callus formation is noted yet. She does have low vitamin-D and osteoporosis so we are going to make sure she protects this as much as possible. She has had previous problems with healing of the thumb fracture she had previously. We will continue with casting for at least another month I will see her back take the cast off get new x-rays see how it looks I have told her that she may continue to need another cast after that versus a removable splint we will see how it looks. Today the cast was trimmed up around the thumb and the index finger so she has better motion there. She voiced understanding agrees above plan she will call for any further problems difficulties or q Not available 09/14/2023 14:42:57 10/29/2023 10/29/2023 By x-ray and exam the patient is noted have a healed fracture of the right 5th metacarpal neck. The closed reduction is maintained good alignment new callus formation is noted she is basically healed. I have advised her to go slowly with it it has been 8 weeks since her injury over the next few weeks she can start to wean back into her regular activities nothing too heavy or repetitive for right now let it heal a little more over the next couple of weeks. Otherwise her exam is completely benign she looks good I will see her back as needed she voiced understanding agrees above plan she will call for any further problems difficulties or questions. Not available 10/29/2023 11:44:05 Plan of Treatment Reminders Order Date Submit Date Provider Last Modified By Organization Details Last Modified Time Details Appointments Follow Up 15 2024 10:30A M YOMI Warren Not available Not available Not available Lab vitamin D, 25-hydrox y, total, serum [address] (Lab), [address] [place], [address], 02/29/2024 08:39:11 glycohemo globin, total, blood [address] (Lab), [address] [place], [address], 02/29/2024 08:39:11 drug screen, urine 2023 024 [facility] (Lab), [address] [place], [address], 06/13/2024 01:53:34 Referral cardiolog ist referral - edema . Please eval and treat . Please call patient to schedule an appointme nt. Thank you . 2023 024 [email or web address] [facility] Referral Fax Line, [address] [facility], [address], [place], [address], 11/25/2023 08:45:48 gynecolog ist referral - Pleese call patient to schedule an appointme nt. Thank you. [email or web address], [place], [address], 12/10/2023 08:36:25 sleep medicine referral - Please eval and treat. snores , wakes up gasping for air frequentl y. Please call patient to schedule an appointme nt. Thank you. 2023 024 [email or web address] Solomon Tony MD, [address] [place], [address], 03/21/2024 09:04:40 Procedures None recorded. Surgeries None recorded. Imaging XR, hand 2023 024 [email or web address] [facility] [place], [address], [place], [address], 09/14/2023 16:08:24 MAMMO, screening , digital, bilateral - *Please call pt to schedule* 2023 024 [email or web address] 56 [facility], [address] [place] [address] , [place], [address], 11/29/2023 09:18:52 XR, hand, 3 or more view 2023 024 [email or web address] [facility] [place], [address], [place], [address], 10/29/2023 13:54:12 Medication Orders nicotine (polacril ex) 4 mg gum 2023 024 [facility], [address] [place], [address], 10/28/2023 09:49:51 alendrona te 70 mg tablet 2023 024 [facility] [address], [address] [place], [address], 10/28/2023 09:43:44 dextroamp hetamine sulfate 30 mg tablet 2023 024 [facility] [address], [address] [place], [address], 06/15/2024 08:09:59 carbidopa 25 mg-levodo pa 100 mg tablet 2023 [facility] #58725, [address], [place], [place], [id number], 02/22/2024 11:24:56 buspirone 10 mg tablet 2023 [facility] #97036, [address], [place], [place], [id number], 02/22/2024 11:25:54 dextroamp hetamine- amphetami ne 30 mg tablet 2023 [facility] #26549, [address], [place], [place], [id number], 02/22/2024 11:21:37 dextroamp hetamine- amphetami ne ER 30 mg 24hr capsule,e xtend release 2023 [facility] #36425, [address], [place], [place], [id number], 02/22/2024 11:21:36 ondansetr on 4 mg disintegr ating tablet [address] [facility] [employer] [facility] #27124, [address], [place], [place], [id number], 06/12/2024 13:14:56 Cipro 500 mg tablet [address] [facility] #64682, [address], [place], [place], [id number], 06/12/2024 13:14:57 hydroxyzi ne HCl 10 mg tablet [address] [facility] #17204, [address], [place], [place], [id number], 06/12/2024 13:14:57 dextroamp hetamine sulfate 30 mg tablet [email or web address] [facility], [address] [facility], [place], [place], [id number], 06/15/2024 08:09:59 Patient TargetsNo targets recorded. 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 Thank you. Referring Physician: Family Kishore Vincent, Encounter Date: 10/28/2023 Rod Placer Referral for Ed rosa edema . Please eval and treat . Please call patient to schedule an appointment. Thank you . Referring Physician: Family [facility], Encounter Date: 10/28/2023 Sleep Medicine Referral for Snoring Please eval and treat. snores , wakes up gasping for air frequently. Please call patient to schedule an appointment. Thank you. Referring Physician: Family Kishore Vincent, Encounter Date: 02/22/2024 Results Created Date Observation Date Name Description Value Unit Range Abnormal Flag Note LastModifiedBy Organization Detail LastModifiedTime 08/18/19 24 08/18/2023 XR, knee, 1 or 2 view No observ ation record ed. [address], [address], 08/19/2023 08:50:17 08/19/19 24 08/18/2023 XR, wrist No observ ation record ed. [address], [address], 08/19/2023 08:50:48 08/19/19 24 08/18/2023 XR, hand No observ ation record ed. [address], [address], 08/19/2023 08:51:17 08/19/19 24 08/19/2023 CT, head, w/o contr ast No observ ation record ed. [address], [place], [address], 08/19/2023 08:49:15 08/19/19 24 08/19/2023 CT, cervi carol spine , w/o contr ast No observ ation record ed. [address], [place], [address], 08/19/2023 08:49:09 08/19/19 24 08/19/2023 CT, abdom en + pelvi s, w/ contr ast No observ ation record ed. [address], [place], [address], 08/19/2023 08:49:39 09/14/19 24 XR, hand No observ ation record ed. [email or web address] [facility] [place] [address] [facility] [address], [place], [address], 09/14/2023 14:50:52 09/15/19 24 08/18/2023 XR, wrist , 3 or more view No observ ation record ed. Not Available 08/2023 16:21:41 09/15/19 24 08/18/2023 XR, hand, 3 or more view No observ ation record ed. Not Available 08/2023 16:21:41 09/15/19 24 08/18/2023 XR, knee, 3 view No observ ation record ed. Not Available 08/2023 16:21:41 09/15/19 24 08/18/2023 CT, cervi carol spine , w/o contr ast No observ ation record ed. Not Available 08/2023 16:21:41 09/15/19 24 08/18/2023 CT, brain , w/o contr ast No observ ation record ed. Not Available 08/2023 16:21:42 09/15/19 24 08/18/2023 CT, chest + abdom en + pelvi s, w/ contr ast No observ ation record ed. Not Available 08/2023 16:21:42 10/29/19 XR, hand, 3 or more view No observ ation record ed. [email or web address] [facility] [place] [address], [place], [address], 10/29/2023 11:41:38 Result Notes None recorded. Problems Name Problem SNOMED Code Status Onset Date Resolution Date Notes Provider Name and Address Organization Details Recorded Time Uncontroll ed type 1 diabetes mellitus 147235441 Active 2021 Not Available [facility] 3 00:58:39 Type 1 diabetes mellitus 25966527 Active 2021 Not Available [facility] 3 00:58:39 Diabetes mellitus 76172456 Active 2021 Not Available [facility] 3 00:58:39 Neuropathy 149115175 Active 2022 Fern Portillo MD [address], [address], [place], [address] , [employer] [facility] 3 11:04:16 Attention deficit hyperactiv ity disorder, predominan tly inattentiv e type 00558330 Active 2022 Fern Portillo MD [address], [address], [place], [address] , [employer] [facility] 3 11:04:42 Type 2 diabetes mellitus without complicati on 116128075 Active 2022 Fern Portillo MD [address], [address], [place], [address] , [employer] [facility] 3 15:41:36 Anxiety 23630850 Active 2022 Fern Portillo MD [address], [address], [place], [address] , [place] [facility] 3 10:23:08 Inspirator y wheezing 34963451 Active 2022 Fern Portillo MD [address], [address], [place], [address] , [place] [facility] 3 10:21:21 Chronic abdominal pain 085349482 Active 2022 Fern Portillo MD [address], [address], [place], [address] , [place] [facility] 3 16:46:39 Bipolar disorder 48098436 Active 2022 Fern Portillo MD [address], [address], [place], [address] , [place] [facility] 3 09:27:57 Diabetic peripheral neuropathy 420281454 Active 2022 Fern Portillo MD [address], [address], [place], [address] , [place] [facility] 3 10:07:34 Pain in right hand 1372402157870 09 Active 2022 Mervat Ba ROD POINTER null, [place] [facility] 3 14:04:09 Closed fracture thumb proximal phalanx 223717794 Active 2022 YOMI Weaver [address], [address], [place], [address] , [place] [facility] 3 15:19:36 Vitamin D deficiency 04865408 Active 2022 Mervat Ba ROD POINTER null, [place] [facility] 3 08:51:39 Osteoporos is 93462867 Active 2022 Mervat Ba ROD POINTER null, [place] [facility] 3 08:53:08 Osteopenia 711998653 Active 2022 Fern Portillo MD [address], [address], [place], [address] , [facility] 3 15:24:51 Nicotine dependence 74399023 Active 2023 YOMI Warren [address], [address], [place], [address] , [facility] 4 10:08:05 Type 1 diabetes mellitus without complicati on 207524755 Active 2023 Isai Mclean RN null, [place] - [facility] 4 15:09:03 Vertigo 915358668 Active 2023 Isai Mclean RN null, [place] [facility] 4 08:20:58 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 2023 Isai Mclean RN null, [facility] 4 16:19:03 Pain of right wrist 1346638602242 00 Active 2023 Mervat Ba CNA null, [facility] 4 10:39:22 Closed fracture of neck of fifth metacarpal bone of right hand 1091904127501 9108 Active 2023 YOMI Weaver [address], [address], [place], [address] , [facility] 4 13:21:50 Screening for malignant neoplasm of cervix Active 2023 YOMI Warren [address], [address], [place], [address] , [facility] 4 09:33:45 Screening for malignant neoplasm of breast Active 2023 YOMI Warren [address], [address], [place], [address] , [facility] 4 09:34:51 Edema 483338310 Active 2023 YOMI Warren [address], [address], [place], [address] , [facility] [employer] 4 09:45:51 Candidiasi s of skin 46958659 Active 2023 YOMI Warren [address], [address], [place], [address] , [facility] [employer] [facility] [employer] 4 09:38:55 Pityriasis versicolor 78462903 Active 2023 YOMI Warren [address], [place], [address] , [employer] [facility] [employer] 4 09:40:36 Periodic limb movement disorder 213458051 Active 2023 YOMI Warren [address] [employer] [address], [place], [address] , [facility] [employer] [facility] [employer] 4 11:21:45 Snoring 94546472 Active 2023 YOMI Warren [address] [employer] [address] [address], [place], [address] , [employer] [facility] [employer] 4 11:25:02 Gastritis 5061166 Active 2023 YOMI Warren [address], [address], [place], [address] , [employer] [facility] [employer] [facility] 4 13:09:48 Attention deficit hyperactiv ity disorder 157926316 Active 2024 Kathya Hunter RN [facility] [place] [employer] [facility] [employer] [facility] 5 10:02:08 Problem Notes Documentation Provider Name and Address Organization Details Recorded Time Orthopedic Consult Note : [facility] ? ? [address] [facility] [address], [place] [facility] [address]LILCFYIXP, Susan R (id #[id number], : 1980) Documents sent via fax will include the following message: This fax may contain sensitive and confidential personal health information that is being sent for the sole use of the intended recipient. Unintended recipients are directed to securely destroy any materials received. You are hereby notified that the unauthorized disclosure or other unlawful use of this fax or any personal health information is prohibited. To the extent patient information contained in this fax is subject to 42 CFR Part 2, this regulation prohibits unauthorized disclosure of these records. If you received this fax in error, please visit [email or web address] [email or web address] to notify the sender and confirm that the information will be destroyed. If you do not have internet access, please call to notify the sender and confirm that the information will be destroyed. Thank you for your attention and cooperation. [ID:[id number]] , Date: 4RE: Benedicto Olguin MD, I would like to thank you for referring Marisa Lott to me for consultation and evaluation of Followup: Pain of right wrist Followup: Pain in right hand Followup: Closed fracture of neck of fifth metacarpal bone of right hand , on 09/14/2023. I have enclosed a copy of the office assessment and plan for your records. Once again, thank you for allowing me to participate in the care of this patient. Sincerely, Electronically Signed by: YOMI WEAVER, LALA Ferrara/Devin patient has a healing fracture of the 5th metacarpal neck right hand. Overall alignment looks unchanged from previous x-rays a week ago post reduction. No significant callus formation is noted yet. She does have low vitamin-D and osteoporosis so we are going to make sure she protects this as much as possible. She has had previous problems with healing of the thumb fracture she had previously. We will continue with casting for at least another month I will see her back take the cast off get new x-rays see how it looks I have told her that she may continue to need another cast after that versus a removable splint we will see how it looks. Today the cast was trimmed up around the thumb and the index finger so she has better motion there. She voiced understanding agrees above plan she will call for any further problems difficulties or q 1. Closed fracture of neck of fifth metacarpal bone of right handS62.336D: Displaced fracture of neck of fifth metacarpal bone, right hand, subsequent encounter for fracture with routine healing XR, HAND Side: RIGHT 2. Pain in right handM79.641: Pain in right hand 3. Pain of right ulywtE69.531: Pain in right wrist XR, HAND Side: RIGHT X-rays done today in the office as read by me AP lateral oblique right hand demonstrates near anatomic alignment of a 5th metacarpal neck fracture no significant callus formation is noted yet overall alignment is unchanged compared to x-rays done 1 week ago status post closed reduction in the office. No other fracture lesion mass is seen. There is a transverse slightly impacted fracture of the 5th metacarpal neck right hand. Return to Office YOMI Weaver for Any 5 at [facility] [place] on 10/12/2023 at 01:15 PM Traci Freed RN [facility], [place] - [facility] [employer] [facility] 09/14/2023 15:23:59 Orthopedic Surgeon Consult Note : [facility] [facility] ? ? [address] [facility] [address], [place] [address]HHSLTQJCA, Susan R (id #[id number], : 1980) Documents sent via fax will include the following message: This fax may contain sensitive and confidential personal health information that is being sent for the sole use of the intended recipient. Unintended recipients are directed to securely destroy any materials received. You are hereby notified that the unauthorized disclosure or other unlawful use of this fax or any personal health information is prohibited. To the extent patient information contained in this fax is subject to 42 CFR Part 2, this regulation prohibits unauthorized disclosure of these records. If you received this fax in error, please visit [email or web address] yFax to notify the sender and confirm that the information will be destroyed. If you do not have internet access, please call to notify the sender and confirm that the information will be destroyed. Thank you for your attention and cooperation. [ID:[id number]] , Date: 4RE: Benedicto Olguin MD, I would like to thank you for referring Marisa Lott to me for consultation and evaluation of Followup: Closed fracture of neck of fifth metacarpal bone of right hand , on 10/29/2023. I have enclosed a copy of the office assessment and plan for your records. Once again, thank you for allowing me to participate in the care of this patient. Sincerely, Electronically Signed by: YOMI WEAVER, PASRAMON Assessment/PlanBy x-ray and exam the patient is noted have a healed fracture of the right 5th metacarpal neck. The closed reduction is maintained good alignment new callus formation is noted she is basically healed. I have advised her to go slowly with it it has been 8 weeks since her injury over the next few weeks she can start to wean back into her regular activities nothing too heavy or repetitive for right now let it heal a little more over the next couple of weeks. Otherwise her exam is completely benign she looks good I will see her back as needed she voiced understanding agrees above plan she will call for any further problems difficulties or questions. 1. Closed fracture of neck of fifth metacarpal bone of right handS62.336D: Displaced fracture of neck of fifth metacarpal bone, right hand, subsequent encounter for fracture with routine healing XR, HAND, 3 OR MORE VIEW 2. Pain in right handM79.641: Pain in right hand XR, HAND, 3 OR MORE VIEW X-rays done today in the office as read by me AP lateral oblique right hand demonstrates an essentially healed fracture of the right 5th metacarpal neck and head. Overall alignment is unchanged compared to previous x-rays done more than a month ago. There was a transverse slightly impacted fracture of the 5th metacarpal neck with very minimal volar angulation. Joint spaces are well-maintained no other deformity noted. Return to Office Patient will return to the office as needed SINA Akins, frents 10/29/2023 11:59:30 Procedures Surgical History Date Name Laterality Status Provider Name and Address Organization Details Recorded Time delivery completed Mervat Ba CNA frents 05/04/2023 14:03:08 procedure on humerus completed Mervat Ba CNA frents 05/04/2023 14:03:39 Imaging Results Imaging Date Name Status LastModified by [facility] Details LastModified Time 08/18/2023 XR, knee, 1 or 2 view completed [address], [place], [address], 08/19/2023 08:50:17 08/18/2023 XR, wrist completed [address], [place], [address], 08/19/2023 08:50:48 08/18/2023 XR, hand completed [address] [facility], [place], [address], 08/19/2023 08:51:17 08/19/2023 CT, head, w/o contrast completed [address], [place], [address], 08/19/2023 08:49:15 08/19/2023 CT, cervical spine, w/o contrast completed [address] [address], [place], [address], 08/19/2023 08:49:09 08/19/2023 CT, abdomen + pelvis, w/ contrast completed [address], [address], 08/19/2023 08:49:39 09/14/2023 XR, hand completed [email or web address] [facility] [place] [address] [facility] [address], [place], [address], 09/14/2023 14:50:52 08/18/2023 XR, wrist, 3 or more view completed Information not available 09/15/2023 16:21:41 08/18/2023 XR, hand, 3 or more view completed Information not available 09/15/2023 16:21:41 08/18/2023 XR, knee, 3 view completed Information not available 09/15/2023 16:21:41 08/18/2023 CT, cervical spine, w/o contrast completed Information not available 09/15/2023 16:21:41 08/18/2023 CT, brain, w/o contrast completed Information not available 09/15/2023 16:21:42 08/18/2023 CT, chest + abdomen + pelvis, w/ contrast completed Information not available 09/15/2023 16:21:42 10/29/2023 XR, hand, 3 or more view completed [email or web address] [facility] [place] [address], [place], [address], 10/29/2023 11:41:38 Procedure Notes None recorded. Medical Equipment None Reported. Allergies No known drug allergies Medications Name Sig Start Date Stop Date Status Note LastModified by Organization Details LastModified Time hydroxyzine pamoate 100 mg capsule TAKE 1 CAPSULE BY MOUTH AT BEDTIME 01/21 completed Not Available Not Available Not Available nicotine 14 mg/24 hr daily transdermal patch Apply 1 patch every day by transderm al route for 14 days. active Not Available Not Available No t Available citalopram 40 mg tablet Take 1 tablet every day by oral route. 02/21 completed Not Available Not Available Not Available atorvastati n 10 mg tablet TAKE 1 TABLET BY MOUTH AT BEDTIME 05/04 completed Not Available Not Available Not Available naltrexone 50 mg tablet TAKE 1 TABLET BY MOUTH DAILY 05/04 completed Not Available Not Available Not Available prednisone 20 mg tablet TAKE 2 TABLETS BY MOUTH EVERY DAY FOR 5 DAYS 09/16 completed Not Available Not Available Not Available dextroamphe tamine-amph etamine 10 mg tablet active Not Available Not Available No t Available alendronate 70 mg tablet Take 1 tablet every week by oral route for 30 days. active Not Available Not Available No t Available Lantus U-100 Insulin 100 unit/mL subcutaneou s solution ADMINISTE R 30 UNITS UNDER THE SKIN AT BEDTIME active Not Available Not Available No t Available oxcarbazepi ne 300 mg tablet 01/21 completed Not Available Not Available Not Available ciprofloxac in 500 mg tablet Take 1 tablet every 12 hours by oral route for 10 days. active Not Available Not Available No t Available quetiapine 100 mg tablet TAKE 1 TABLET BY MOUTH EVERY DAY AT BEDTIME 05/04 completed Not Available Not Available Not Available Depo-Medrol 80 mg/mL suspension for injection Take 1 mL by injection route. 2022 active Not Available Not Available Not Avai lable dextroamphe tamine-amph etamine 30 mg tablet 1 tab po around 2 pm daily active Not Available Not Available No t Available dextroamphe tamine-amph etamine ER 20 mg 24hr capsule,ext end release TAKE 1 CAPSULE BY MOUTH EVERY DAY 10/08 completed Not Available Not Available Not Available nicotine (polacrilex ) 4 mg gum Chew 1 piece of gum every 2 hours by oral route for 30 days. 2023 active Not Available Not Available Not Avai lable nystatin 100,000 unit/gram topical cream APPLY TO THE AFFECTED AREA(S) BY TOPICAL ROUTE 2 TIMES PER DAY active Not Available Not Available No t Available buspirone 10 mg tablet TAKE 3 TABLETs BY MOUTH Twice DAILY after food active Not Available Not Available No t Available dextroamphe tamine-amph etamine 20 mg tablet Take 1 tablet every day by oral route for 30 days. 12/06 completed Not Available Not Available Not Available benztropine 1 mg tablet TAKE 1 TABLET BY MOUTH AT BEDTIME 10/08 completed Not Available Not Available Not Available nicotine 21 mg/24 hr daily transdermal patch Apply 1 patch every day by transderm al route for 14 days. 10/27 completed Not Available Not Available Not Available gabapentin 300 mg capsule 10/08 completed Not Available Not Available Not Available folic acid 1 mg tablet TAKE 1 TABLET BY MOUTH DAILY active Not Available Not Available No t Available hydroxyzine HCl 25 mg tablet TAKE 1 TABLET BY MOUTH THREE TIMES DAILY NEEDED 01/21 completed Not Available Not Available Not Available lisinopril 5 mg tablet TAKE 1 TABLET BY MOUTH AT BEDTIME 05/04 completed Not Available Not Available Not Available ergocalcife rol (vitamin D2) 1,250 mcg (50,000 unit) capsule TAKE 1 CAPSULE BY MOUTH ONCE A WEEK DIRECTED 10/27 completed Not Available Not Available Not Available insulin lispro (U-100) 100 unit/mL subcutaneou s solution INJECT 10 UNITS SUBCUTANE OUSLY 4 TIMES DAILY BEFORE MEAL(S) active Not Available Not Available No t Available albuterol sulfate HFA 90 mcg/actuati on aerosol inhaler INHALE 2 PUFFS BY MOUTH EVERY 4 HOURS NEEDED FOR SHORTNESS OF BREATH OR WHEEZING active Not Available Not Available No t Available dextroamphe tamine-amph etamine ER 30 mg 24hr capsule,ext end release Take 1 capsule every day by oral route in the morning for 30 days. active Not Available Not Available No t Available carbidopa 25 mg-levodopa 100 mg tablet 2 tabs po at bedtime every day active Not Available Not Available No t Available ketoconazol e 2 % topical cream APPLY TO THE AFFECTED AREA(S) trunk BY TOPICAL ROUTE ONCE DAILY active Not Available Not Available No t Available hydroxyzine HCl 10 mg tablet 1 to 2 tabs po up to 3 times per day active Not Available Not Available No t Available ondansetron 4 mg disintegrat ing tablet Place 1 tablet 3 times a day by transling ual route for 30 days. active Not Available Not Available No t Available fluticasone propionate 50 mcg/actuati on nasal spray,suspe nsion SHAKE LIQUID AND USE 1 SPRAY IN EACH NOSTRIL TWICE DAILY FLONASE 09/16 completed Not Available Not Available Not Available loratadine 10 mg tablet TAKE 1 TABLET BY MOUTH EVERY DAY NEEDED FOR ALLERGY SYMPTOMS 09/16 completed Not Available Not Available Not Available amoxicillin 875 mg-potassiu m clavulanate 125 mg tablet 06/12 completed Not Available Not Available Not Available nicotine 7 mg/24 hr daily transdermal patch Apply 1 patch every day by transderm al route for 14 days. 10/08 completed Not Available Not Available Not Available buspirone 15 mg tablet TAKE 1 TABLET BY MOUTH THREE TIMES DAILY 02/21 completed Not Available Not Available Not Available hydroxyzine pamoate 25 mg capsule Take 1 capsule by mouth three times daily as needed active Not Available Not Available No t Available insulin lispro (U-100) 100 unit/mL subcutaneou s pen INJECT 10 UNITS BEFORE EACH MEAL- CORRECTIO NAL FACTOR INSULIN 1:25 IF > 150 MG/DL, UP TO 60 UNITS/DAY active Not Available Not Available No t Available aripiprazol e 30 mg tablet TAKE 1 TABLET BY MOUTH DAILY 09/16 completed Not Available Not Available Not Available nicotine (polacrilex ) 4 mg buccal lozenge Take 1 tablet every 2 hours by oral route for 30 days. 2023 active Not Available Not Available Not Avai lable ciprofloxac in 0.3 %-dexametha sone 0.1 % ear drops,suspe nsion INSTILL 4 DROPS IN EACH AFFECTED EAR TWICE DAILY FOR 7 DAYS 09/16 completed Not Available Not Available Not Available bupropion HCl XL 150 mg 24 hr tablet, extended release TAKE 1 TABLET BY MOUTH DAILY DIRECTED 10/08 completed Not Available Not Available Not Available Marcaine (PF) 0.5 % (5 mg/mL) injection solution Take 3 mL by injection route. 2023 active Not Available Not Available Not Avai lable duloxetine 30 mg capsule,del ayed release TAKE 1 CAPSULE BY MOUTH EVERY DAY FOR 7 DAYS 02/21 completed Not Available Not Available Not Available duloxetine 60 mg capsule,del ayed release TAKE 1 CAPSULE BY MOUTH EVERY DAY FOR NERVE PAIN active Not Available Not Available No t Available Flovent HFA 110 mcg/actuati on aerosol inhaler INHALE 2 PUFFS BY MOUTH TWICE DAILY 11/07 completed Not Available Not Available Not Available ibandronate 150 mg tablet Take 1 tablet every month by oral route. 10/27 completed Not Available Not Available Not Available pregabalin 75 mg capsule TAKE ONE CAPSULE BY MOUTH THREE TIMES DAILY 10/08 completed Not Available Not Available Not Available pregabalin 100 mg capsule TAKE 1 CAPSULE BY MOUTH THREE TIMES DAILY 10/08 completed Not Available Not Available Not Available pregabalin 200 mg capsule TAKE 1 CAPSULE BY MOUTH THREE TIMES DAILY active Not Available Not Available No t Available pregabalin 300 mg capsule 1cap in am po , 1 cap at noon, , 2 caps at bedtime for 7 days , 1 cap am , 2 caps at noon , 2 caps at bedtime for 7 days, 2 caps three time daily and maintain 10/27 completed Not Available Not Available Not Available chlorhexidi ne gluconate 0.12 % mouthwash active Not Available Not Available No t Available quetiapine 50 mg tablet TAKE 1 TABLET BY MOUTH TWICE DAILY 05/04 completed Not Available Not Available Not Available FeroSul 325 mg (65 mg iron) tablet active Not Available Not Available Not Available Lantus Solostar U-100 Insulin 100 unit/mL (3 mL) subcutaneou s pen INJECT 30 UNITS SUBCUTANE OUSLY NIGHTLY active Not Available Not Available No t Available Creon 12,000-38,0 00-60,000 unit capsule,del ayed release TAKE 2 CAPSULES BY MOUTH THREE TIMES DAILY WITH MEALS 10/08 completed Not Available Not Available Not Available Vitamin B-1 (mononitrat e) 100 mg tablet TAKE 1 TABLET BY MOUTH EVERY MORNING active Not Available Not Available No t Available TRUEplus Insulin 0.5 mL 30 gauge x 5/16 syringe USE TO INJECT INSULIN 5 TIMES DAILY active Not Available Not Available No t Available Creon 36,000 unit-114,00 0 unit-180,00 0 unit capsule,del ayed release Take 1 capsule 3 times a day by oral route before meals for 90 days. active Not Available Not Available No t Available dextroamphe tamine sulfate 30 mg tablet Take 1 tablet every day by oral route for 30 days. 06/15 completed Not Available Not Available Not Available TRUEplus Pen Needle 32 gauge x 5/32 USE 4 TIMES DAILY DIRECTED active Not Available Not Available No t Available nicotine (polacrilex ) 4 mg buccal mini lozenge TAKE 1 TABLET BY MOUTH EVERY 2 HOURS FOR 30 DAYS 02/21 completed Not Available Not Available Not Available Dexcom G6 Transmitter device CHANGE EVERY 3 MONTHS active Not Available Not Available No t Available Dexcom G7 Wildlife Rehabilitator USE TO CHECK BLOOD SUGAR BEFORE EACH MEAL AND AT BEDTIME active Not Available Not Available No t Available Dexcom G7 Sensor device CHANGE EVERY 10 DAYS active Not Available Not Available No t Available Vitals Date Recorded Body height Body mass index (BMI) Body weight Provider Name and Address Organization Details Last Updated DateTime 09/14/2023 160.02 cm 29.8 kg/m2 53073.52 g CRISTIAN Alvarez [place] [employer] [facility] 09/14/2023 14:03:17 Date Recorded Body height Body mass index (BMI) Body weight Body temperature Heart rate Respiratory rate Oxygen saturation Oxygen saturation in Arterial blood by Pulse oximetry Systolic blood pressure Diastolic blood pressure Provider Name and Address Organization Details Last Updated DateTime 160.02 cm 32.9 kg/m2 41298.1 8 g 98.2 [degF] 83 /min 16 /min 100 % 100 % 144 mm[Hg] 92 mm[Hg] Kathya Hunter RN [facility] [employer] 4 09:28:04 Date Recorded Body height Body mass index (BMI) Body weight Provider Name and Address Organization Details Last Updated DateTime 10/29/2023 160.02 cm 30.1 kg/m2 69814.7 g StaceyDEREK Jo [facility] [employer] 10/29/2023 11:13:07 Date Recorded Body height Body mass index (BMI) Body weight Body temperature Heart rate Respiratory rate Oxygen saturation Oxygen saturation in Arterial blood by Pulse oximetry Systolic blood pressure Diastolic blood pressure Provider Name and Address Organization Details Last Updated DateTime 160.02 cm 34.2 kg/m2 50192.3 3 g 98.8 [degF] 96 /min 16 /min 99 % 99 % 134 mm[Hg] 80 mm[Hg] Kathya Hunter RN [facility] [employer] 4 11:02:08 Date Recorded Body height Body mass index (BMI) Body weight Body temperature Heart rate Oxygen saturation Oxygen saturation in Arterial blood by Pulse oximetry Systolic blood pressure Diastolic blood pressure Provider Name and Address Organization Details Last Updated DateTime 160.02 cm 36.8 kg/m2 80460.2 1 g 98.3 [degF] 102 /min 99 % 99 % 150 mm[Hg] 90 mm[Hg] Kathya Hunter RN [facility] [employer] 4 12:53:09 Social History Question Answer Notes LastModified by Organizat ion Details LastModified Time Tobacco Smoking Status Current Every Day Smoker Not Available [employer] 08/13/2022 00:57:34 What Is Your Level Of Alcohol Consumption? None [id number] Information not available 08/13/2022 What Is Your Level Of Caffeine Consumption? Moderate [id number] Information not available 08/13/2022 In The 14 Days Before Symptom Onset, Have You Had Close Contact With A Laboratory-confirm ed COVID-19 While That Case Was Ill? No [id number] Information not available 08/13/2022 In The 14 Days Before Symptom Onset, Have You Had Close Contact With A Person Who Is Under Investigation For COVID-19 While That Person Was Ill? No [id number] Information not available 08/13/2022 What Type Of Diet Are You Following? REGULAR [id number] Information not available 08/13/2022 What Is Your Relationship Status? Single [id number] Information not available 08/13/2022 At What Age Did You Start Smoking Tobacco? 22 [id number] Information not available 08/13/2022 How Much Tobacco Do You Smoke? 0.5 PPD Information not available 05/04/2023 Do You Use Any Illicit Or Recreational Drugs? No [id number] Information not available 08/13/2022 How Many Years Have You Smoked Tobacco? 20 Information not available 05/04/2023 Have You Recently Traveled Abroad? No [id number] Information not available 08/13/2022 Do You Have Any Dietary Restrictions? No [id number] Information not available 08/13/2022 Sex: Female Functional Status Question Answer Note LastModified by [employer] Details LastModified Time What is your exercise level? Occasional [id number] Information not available 08/13/2022 Mental Status None recorded. Family History Relationship Description Onset Age of this Age Resolved Age Notes LastModified by Organization Details LastModified Time Father Diabetes mellitus [id number] Not available 08/13/2022 00:57:41 Mother Diabetes mellitus [id number] Not available 08/13/2022 00:57:41 Mother Malignant tumor of lung [id number] Not available 08/13/2022 00:57:41 Paternal Grandfather Malignant tumor of colon [id number] Not available 08/13/2022 00:57:41 Mother Heart disease [email or web address] Not available 2022 14:00:49 Mother Family history of malignant neoplasm [email or web address] Not available 2022 14:01:03 Mother Hypertensive disorder [email or web address] Not available 2022 14:01:19 Mother Kidney disease [email or web address] Not available 2022 14:02:07 Father Blood coagulation disorder [email or web address] Not available 2022 14:01:31 Medical History Condition Response DIABETES, TYPE Y GI PROBLEMS Y HIGH CHOLESTEROL / HYPERLIPIDEMIA Y Gynecological History Statement/Question Response How many live births 3 Abnormal Pap Y Date of LMP 01/05/2022 Frequency of Cycle (Q days) 7 Sexually Active? Y Menses Monthly N STIs/STDs N Date of Last Pap 07/14/2018 Current Control Method None Obstetrics History GPAL:G 3 P 3 0 0 0 Type Value Full Term 3 Total 3 Past Encounters Encounter ID Performer Location Encounter Start Date Encounter Closed Date Diagnosis/Indication Diagnosis SNOMED-CT Code Diagnosis ICD10 Code Diagnosis Note [id number] [address] [place] [address] 09/16/2021 00:00:00 09/16/2021 20:27:36 [id number] [facility] [address] [place] [address] 11/07/2021 00:00:00 11/07/2021 15:50:11 [id number] [facility] [address] [place] [address] [place] [address] 01/21/2022 00:00:00 01/21/2022 19:44:28 [id number] Fern Portillo MD [address] [place] [address] 10/08/2022 09:59:45 10/08/2022 10:23:03 Attention deficit hyperactivity disorder, predominantly inattentive type 49547768 F90.0 Will increase adderall to 30 ER generic [id number] Fern Portillo MD [address] [place] [address] 01/07/2023 10:06:17 01/07/2023 10:30:50 Inspiratory wheezing 50916416 R06.2 Attention deficit hyperactivity disorder, predominantly inattentive type 91221515 F90.0 continue dextroamph etamine 30 mg ER and will add IR 10 mg at 2 pm. Neuropathy 177322070 G62 .9 [id number] YOMI Weaver [facility] [address] [place] [address] 05/04/2023 13:41:49 05/04/2023 15:30:56 Pain in right hand 1587325793 50169 M79.641 Closed fra cture thumb proximal phalanx 668146207 S62.511A [id number] YOMI Weaver [facility] [place] [facility] [address] [place] [address] 05/25/2023 14:13:30 05/25/2023 15:29:03 Closed fracture thumb proximal phalanx 550450930 S62.511D Pain in right hand 35248 90795 61080 M79.221 [id number] YOMI Warren [facility] [address] [facility] [place] [address] 06/02/2023 15:42:19 06/02/2023 16:25:17 Neuropathy 093845355 G62.9 Attention deficit hyperactivity disorder, predominantly inattentive type 62081966 F90.0 Anxiety 15858109 F41.9 Bipolar disorder 5843216 4 F31.9 Diabetes mellitus 404460 09 E11.9 E13.42 Type 2 hector betes mellitus without complication 146439209 E11.9 [id number] YOMI Weaver [facility] [place] [facility] [address] [place] [address] 07/09/2023 10:07:14 07/09/2023 11:05:43 Closed fracture thumb proximal phalanx 235290068 S62.511D Pain in right hand 40125 81696 79604 M79.948 [id number] YOMI Weaver [facility] [address] [place] [address] 08/10/2023 14:19:28 08/10/2023 15:14:30 Closed fracture thumb proximal phalanx 894332045 S62.511D Pain in right hand 43212 49971 22653 M79.682 [id number] YOMI Weaver [facility] [place] [facility] [address] [place] [address] 09/03/2023 10:35:43 09/03/2023 11:37:22 Pain of right wrist 6690473735 53857 M25.531 Closed fra cture of neck of fifth metacarpal bone of right hand 0591775739 4125958 S62.336A [id number] YOMI Weaver [facility] [place] [facility] [address] [place] [address] 09/14/2023 13:54:54 09/14/2023 14:52:32 Closed fracture of neck of fifth metacarpal bone of right hand 6467121395 1311686 S62.336D Pain in right hand 47495 11070 58969 M79.641 Pain of right wrist 3169 734767 33999 M25.508 [id number] [facility] [address] [place] [address] [place] [address] 10/28/2023 09:09:33 10/28/2023 09:59:57 Screening for malignant neoplasm of cervix 899142245 Z12.4 Screening for malignant neoplasm of breast 788555993 Z12.39 Attention deficit hyperactivity disorder, predominantly inattentive type 57597207 F90.0 Osteoporosis 33041443 M8 1.0 Edema 221880927 R60.9 Nicotine dependence 5629 4008 F17.200 Anxiety 26515617 F41.9 Bipolar disorder 0485691 4 F31.9 Diabetic p eripheral neuropathy 825482428 E11.40 Diabetes mellitus 454533 09 E11.9 E13.42 Vitamin D deficiency 347 32829 E55.9 [id number] YOMI Weaver [facility] [place] [facility] 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 Anxiety 12951315 F41.9 Snoring 34237950 R06.83 Diabetic p eripheral neuropathy 610167610 E11.40 Osteoporosis 43512406 M8 1.0 [id number] YOMI Warren [facility] [address] [place] [address] 06/12/2024 12:33:48 06/12/2024 13:19:06 Long-term current use of stimulant 4533437776 2900619 Z79.899 Gastritis 1311287 K29.70 Anxiety 03090201 F41.9 Attention deficit hyperactivity disorder, predominantly inattentive type 57812177 F90.0 Type 2 hector betes mellitus without complication 408777320 E11.9 Health Concerns Section Related Observation LastModified by Organization Detai ls LastModified Time None Recorded Concern Status LastModified by Organization Details LastModified Time None Recorded Advance Directives Directive None Recorded Payers Encounter Date Sequence Insurance Name Policy Number Policy Daily Covered Member ID Daily Member ID Guarantor Name 09/14/2023 1 [employer] [employer] [place] - [place]MO) [id number] Marisa Lott [id number] Marisa Lott 10/28/2023 1 [place] [employer] [place] - [place] [id number] Marisa Lott [id number] Marisa Lott 10/29/2023 1 [place] [employer] - [place] [id number] Marisa Lott [id number] Marisa Lott 02/22/2024 1 [place] - [place] [id number] Marisa Lott [id number] Marisa Lott 06/12/2024 1 [place] [employer] - [place]) [id number] Marisa Lott [id number] Marisa Lott Notes Date Note Type Note Provider Name and Address Organization Details Recorded Time 09/14/2023 text/html Patient returns for recheck of her right 5th metacarpal neck fracture. There was some angulation towards the volar surface we did a closed reduction and casting she comes in today for new x-rays. States she otherwise feels comfortable. The cast is limiting her thumb motion a bit she would like to have this trimmed out a little bit we will get this done as well as release her index finger a little bit trim around that so she can pinch so she can do her job. Otherwise has no issues with the cast or her hand itself. YOMI Weaver [address], [place], [address], [employer] 09/14/2023 14:51:26 10/28/2023 text/html blood clot near spleen , takes creon GusYOMI Simon [address], [place], [address], [employer] 11/21/2023 16:16:48 10/29/2023 text/html patient returns she is now approximately 8 weeks weeks status post injury to her right hand. She had a volar angulation of the distal 5th metacarpal head we did a closed reduction and casting. the patient was last seen September 13 she is missed her follow-up appointments but finally comes in today for new x-rays and recheck. She states recently her cast got very wet she was unable to get it dried out so she actually removed the cast last week on her own. She comes in today stating she has no pain at all she has excellent full range of motion of her hand no crossover the fingers and actually no obvious deformity or depression of the 5th metacarpal head it appears she has excellent function strength stability and comfort through the arc of motion. She comes in today for new x-rays to see how the healing has progressed. YOMI Weaver [address], [place], [address], [employer] 10/29/2023 11:44:34 02/22/2024 text/html snores , wakes u p gasping for air at times . when sleeping her legs move through the night , disturbing her . YOMI Warren [address], [place], [address], [employer] 02/23/2024 11:26:10 06/12/2024 text/html sick , stomach b ug , vomiting , no fever YOMI Warren [address], [place], [address], [employer] 06/19/2024 15:22:13 OBGyn Episode No OBEpisode recorded.
--- OUTSIDE RECORDS SUMMARY | 2024-07-02 03:50 | XMS_ITS | Continuity of Care Document ---
Author Organization [place] [facility] [employer] [facility] [place] Address [address] [place] [address] Care Team Providers Care Boilermaker Mechanic Name Role Phone TAMARA NEWBY Primary Care Provider [phone] TAMARA NEWBY Referring Provider FERN LARRY Primary Care Provider Assessment No assessment recorded. Plan of Treatment Reminders Order Date Submit Date Provider Last Modified By Organization Details Last Modified Time Details Appointments Follow Up 15 2024 10:30A YOMI Raza Not available Not available Not available Lab drug screen, urine 2023 024 [facility] ([facility]), [address] [place], [address], 06/13/2024 01:53:34 Referral None recorded. Procedures None recorded. Surgeries None recorded. Imaging None recorded. Medication Orders ondansetr on 4 mg disintegr ating tablet 2023 024 [email or web address] 00 [id number], [address] [place], [place], [id number], 06/12/2024 13:14:56 Cipro 500 mg tablet 2023 024 [email or web address] 00 [facility], [address] [place], [place], [id number], 06/12/2024 13:14:57 hydroxyzi ne HCl 10 mg tablet 2023 024 [email or web address] 00 [facility], [address], [place], [place], [id number], 06/12/2024 13:14:57 dextroamp hetamine sulfate 30 mg tablet 2023 024 [email or web address] [facility], [address], [place], [place], [id number], 06/15/2024 08:09:59 Patient TargetsNo targets recorded. Patient InstructionsNo instructions recorded. Reason for Referral None Reported. Problems Name Problem SNOMED Code Status Onset Date Resolution Date Notes Provider Name and Address Organization Details Recorded Time Uncontroll ed type 1 diabetes mellitus 728448832 Active 2021 Not Available [facility] 3 00:58:39 Type 1 diabetes mellitus 43850756 Active 2021 Not Available [facility] 3 00:58:39 Diabetes mellitus 49693519 Active 2021 Not Available [facility] 3 00:58:39 Neuropathy 515862764 Active 2022 Fern Portillo MD [address], [place], [address] , [employer] 3 11:04:16 Attention deficit hyperactiv ity disorder, predominan tly inattentiv e type 31810721 Active 2022 Fern Portillo MD [address], [place], [address] , [employer] 3 11:04:42 Type 2 diabetes mellitus without complicati on 385142975 Active 2022 Fern Portillo MD [address], [place], [address] , [employer] 3 15:41:36 Anxiety 25208243 Active 2022 Fern Portillo MD [address], [place], [address] , [employer] [facility] 3 10:23:08 Inspirator y wheezing 77775919 Active 2022 Fern Portillo MD [address], [place], [address] , [facility] [employer] [facility] 3 10:21:21 Chronic abdominal pain 989054295 Active 2022 Fern Portillo MD [address], [place], [address] , [facility] [employer] [facility] [employer] [facility] 3 16:46:39 Bipolar disorder 75952047 Active 2022 Fern Portillo MD [address], [address], [place], [address] , [facility] [employer] [facility] [employer] [facility] 3 09:27:57 Diabetic peripheral neuropathy 931429871 Active 2022 Fern Portillo MD [address], [address], [place], [address] , [facility] [employer] [facility] [employer] [facility] 3 10:07:34 Pain in right hand 8742179864664 09 Active 2022 Mervat Ba RADIATION / CHEMISTRY TECHNICIAN null, [place] [facility] 3 14:04:09 Closed fracture thumb proximal phalanx 425592757 Active 2022 YOMI Weaver [address], [address], [place], [address] , [facility] 3 15:19:36 Vitamin D deficiency 88840727 Active 2022 Mervat Ba RADIATION / CHEMISTRY TECHNICIAN null, [place] [facility] 3 08:51:39 Osteoporos is 13257075 Active 2022 Mervat Ba RADIATION / CHEMISTRY TECHNICIAN null, [place] [facility] 3 08:53:08 Osteopenia 353224796 Active 2022 Fern Portillo MD [address], [address], [place], [address] , [facility] 3 15:24:51 Nicotine dependence 57576748 Active 2023 YOMI Warren [address], [address], [place], [address] , [facility] 4 10:08:05 Type 1 diabetes mellitus without complicati on 156248914 Active 2023 Isai Mclean RN null, [facility] 4 15:09:03 Vertigo 318248251 Active 2023 Isai Mclean RN null, [facility] 4 08:20:58 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 Isai Mclean RN null, [facility] 4 16:19:03 Pain of right wrist 0207573189110 00 Active 2023 Mervat Ba CNA null, [facility] 4 10:39:22 Closed fracture of neck of fifth metacarpal bone of right hand 5351355746197 9108 Active 2023 YOMI Weaver [address], [address], [place], [address] , [facility] 4 13:21:50 Screening for malignant neoplasm of cervix Active 2023 YOMI Warren [address], [place], [address] , [facility] 4 09:33:45 Screening for malignant neoplasm of breast Active 2023 YOMI Warren [address], [address], [place], [address] , [facility] 4 09:34:51 Edema 628135821 Active 2023 YOMI Warren [address], [address], [place], [address] , [facility] 4 09:45:51 Candidiasi s of skin 31740892 Active 2023 YOMI Warren [address], [address], [place], [address] , [employer] 4 09:38:55 Pityriasis versicolor 37097630 Active 2023 YOMI Warren [address], [address], [place], [address] , [employer] 4 09:40:36 Periodic limb movement disorder 927169136 Active 2023 YOMI Warren [address], [address], [place], [address] , [employer] 4 11:21:45 Snoring 62981975 Active 2023 YOMI Warren [address], [address], [place], [address] , [employer] 4 11:25:02 Gastritis 3155866 Active 2023 YOMI Warren [address], [address], [place], [address] , [employer] 4 13:09:48 Attention deficit hyperactiv ity disorder 480795977 Active 2024 Kathya Hunter RN null, [facility] 5 10:02:08 Problem Notes None recorded. Procedures Surgical History Date Name Laterality Status Provider Name and Address Organization Details Recorded Time delivery completed Mervat Ba CNA [employer] [facility] Yekra 05/04/2023 14:03:08 procedure on humerus completed Mervat Jesenia, RADIATION / CHEMISTRY TECHNICIAN [employer] Yekra 05/04/2023 14:03:39 Imaging Results None recorded. Procedure Notes None recorded. Medical Equipment None [...] Not Available No t Available Dexcom G7 Stretcher Leveler Operator Helper USE TO CHECK BLOOD SUGAR BEFORE EACH [...] and Address Organization Details Last Updated DateTime 4 160.02 cm 36.8 kg/m2 39373.2 1 g 98.3 [degF] 102 /min 99 % 99 % 150 mm[Hg] 90 mm[Hg] Kathya Hunter RN [place] [facility] [place] [facility] [employer] [facility] 4 12:53:09 Social History Question Answer Notes LastModified by [employer] ion Details LastModified Time Tobacco Smoking Status Current Every Day Smoker Not Available [facility] 08/13/2022 00:57:34 What Is Your Level Of Alcohol Consumption? None [id number] Information not available 08/13/2022 What Is Your Level Of Caffeine Consumption? Moderate MIGRATION.[id number] 5436 Information not available 08/13/2022 In The 14 Days Before Symptom Onset, Have You Had Close Contact With A Laboratory-confirm ed COVID-19 While That Case Was Ill? No [id number] Information not available 08/13/2022 In The 14 Days Before Symptom Onset, Have You Had Close Contact With A Person Who Is Under Investigation For COVID-19 While That Person Was Ill? No MIGRATION.[id number] 1546 Information not available 08/13/2022 What Type Of Diet Are You Following? REGULAR MIGRATION.626156 9167 Information not available 08/13/2022 What Is Your Relationship Status? Single MIGRATION.[id number] 1779 Information not available 08/13/2022 At What Age Did You Start Smoking Tobacco? 22 MIGRATION.[id number] 6931 Information not available 08/13/2022 How Much Tobacco Do You Smoke? 0.5 PPD Information not available 05/04/2023 Do You Use Any Illicit Or Recreational Drugs? No MIGRATION.[id number] 7318 Information not available 08/13/2022 How Many Years Have You Smoked Tobacco? 20 Information not available 05/04/2023 Have You Recently Traveled Abroad? No MIGRATION.618983 6857 Information not available 08/13/2022 Do You Have Any Dietary Restrictions? No MIGRATION.425206 7582 Information not available 08/13/2022 Sex: Female Functional Status Question Answer Note LastModified by Organizat ion Details LastModified Time What is your exercise level? Occasional [id number] 26 Information not available 08/13/2022 Mental Status None recorded. Family History Relationship Description Onset Age of this Age Resolved Age Notes LastModified by Organization Details LastModified Time Father Diabetes mellitus [id number].054 [id number] Not available 08/13/2022 00:57:41 Mother Diabetes mellitus MIGRATION.325 [id number] Not available 08/13/2022 00:57:41 Mother Malignant tumor of lung MIGRATION.632 [id number] Not available 08/13/2022 00:57:41 Paternal Grandfather Malignant tumor of colon MIGRATION.140 [id number] Not available 08/13/2022 00:57:41 Mother Heart disease [...] SNOMED-CT Code Diagnosis ICD10 Code Diagnosis Note [id number] YOMI Warren [facility] [address] [place] [address] 06/12/2024 12:33:48 06/12/2024 13:19:06 Long-term current use of stimulant 6155497141 3217478 Z79.899 Gastritis 5558863 K29.70 Anxiety 94845117 F41.9 Attention deficit hyperactivity disorder, predominantly inattentive type 99866457 F90.0 Type 2 hector betes mellitus without complication 413195332 E11.9 Health Concerns Section Related Observation LastModified by Organization Detai ls LastModified Time None Recorded Concern Status LastModified by Organization Details LastModified Time None Recorded Payers Encounter Date Sequence Insurance Name Policy Number Policy Daily Covered Member ID Daily Member ID Guarantor Name 06/12/2024 1 [facility] (MEDICAID REPLACEMENT - HMO) [id number] Marisa Lott [id number] Marias Lott Notes Date Note Type Note Provider Name and Address Organization Details Recorded Time 06/12/2024 text/html sick , stomach bug , vomiting , no fever YOMI Warren [address] [facility], [facility] [address], [place], [address], [facility] 06/19/2024 15:22:13 OBGyn Episode No OBEpisode recorded.
--- OUTSIDE RECORDS SUMMARY | 2024-07-02 03:51 | XMS_ITS | Encounter Summary ---
Author Organization [employer] Care Team Providers Care Guest Associate Name Role Phone Ari West Primary Care Provider [phone] Salome Larsen MD Unavailable Wally Sandoval MD Unavailable [phone] Nabeel Prado MD Unavailable [phone] Encounter Details Date Type Department Care Team (Latest Contact Info) Description 05/31/2024 Travel Social History Tobacco Use Types Packs/Day Years Used Date Smoking Tobacco: Every Day Cigarettes 0.5 27 Started: 06/14/1997 Smokeless Tobacco: Never Alcohol Use Standard Drinks/Week Comments Not Currently 0 (1 standard drink = 0.6 oz pur e alcohol) Sexually Active Control Partners Comments Yes Male Comments No Sex and Gender Information Value Date Recorded Sex Assigned at Not on file 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 Gender Identity Not on file Sexual Orientation Not on file documented as of this encounter Plan of Treatment Upcoming Encounters Date Type Department Care Team (Late st Contact Info) Description 08/08/2024 3:45 PM ASSEMBLY MACHINE OPERATOR Office Visit [facility] - Endocrinology - [place] [address] [place] [address] Salome Larsen MD [address] [address] documented as of this encounter Visit Diagnoses Not on filedocumented in this encounter Care Teams Guest Associate Relationship Specialty Start Date End Date Ari West PA [facility] [place] [address] PCP - General Physician Pressure Steamer Tender 07/21/23 Salome Larsen MD #[address] [address] Consulting Physician Endocrinology 09/01/23 Wally Sandoval MD [address] [place] [address] Consulting Physician Gastroenterology 09/08/23 Nabeel Prado MD #[address] [place] [address] Consulting Physician Neurology 03/07/24 documented as of this encounter
--- OUTSIDE RECORDS SUMMARY | 2024-07-02 03:51 | XMS_ITS | Encounter Summary ---
Author Organization [facility] Address [address] [place] [address] Phone Care Team Providers Care Clinical Manager Home Care Name Role Phone Ari West Primary Care Provider [phone] Salome Larsen MD Unavailable Wally Sandoval MD Unavailable [phone] Nabeel Prado MD Unavailable [phone] Reason for Visit * Reason Onset Date Comments Medication Refill 03/28/2024 Encounter Details Date Type Department Care Team (Late st Contact Info) Description 03/28/2024 Refill [facility] - Endocr[facility]ology - [place] [address] [place] [address] Salome Larsen MD [address] [address] Medication Refill Social History Tobacco Use Types Packs/Day Years [...] on file Legal Sex Female 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 Gender Identity Not on file Sexual Orientation Not on file documented as of this encounter Miscellaneous Notes * Telephone Encounter - Salome Larsen MD - 03/28/2024 5:15 PM CDT Rx sent * Telephone Encounter - Anne Marie Bernal RMA - 03/28/2024 3:24 PM CDT Pharmacy requesting refill of: Requested Prescriptions Pending Prescriptions Disp Refills Insulin Lispro, 1 Unit Dial, (HumaLOG KwikPen) 100 UNIT/ML Solution Pen-injector 60 mL 1 Si units before each meal; correctional factor insulin 1:25 if > 150 mg/dL, up to 60 units/day documented in this encounter Plan of Treatment Upcoming Encounters Date Type Department Care Team (Late st Contact Info) Description 08/08/2024 3:45 PM TOURIST 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 Office Visit [facility] - Endocrinology [facility] [address] [place] [address] Salome Larsen MD [address] [address] documented as of this encounter Visit Diagnoses Not on filedocumented in this encounter Care Teams Clinical Manager Home Care Relationship Specialty Start Date End Date Ari West PA [address] [place] [address] PCP - General Physician Marzipan Molder 07/21/23 Salome Larsen MD #[address] [address] Consulting Physician Endocrinology 09/01/23 Wally Sandoval MD [address] [place] [address] Consulting Physician Gastroenterology 09/08/23 Nabeel Prado MD [address] [place] [address] Consulting Physician Neurology 03/07/24 documented as of this encounter
--- OUTSIDE RECORDS SUMMARY | 2024-07-02 03:51 | XMS_ITS | Encounter Summary ---
Author Organization [facility] Address [address] [place] [address] Phone Care Team Providers Care Plate Maker Zinc Name Role Phone Ari West Primary Care Provider [phone] Salome Larsen MD Unavailable Wally Sandoval MD Unavailable [phone] Encounter Details Date Type Department Care Team (Late st Contact Info) Description 11/11/2023 Telephone [facility] [address] [place] [address] Bran Parra MD [address] [place] [address] Social History Tobacco Use Types Packs/Day Years Used Date Smoking Tobacco: Every Day Cigarettes Smokeless Tobacco: Never Alcohol Use Standard Drinks/Week Comments Not Currently 0 (1 standard drink = 0.6 oz pur e alcohol) Sexually Active Control Partners Comments Yes Male Comments No Sex and Gender Information Value Date Recorded Sex Assigned at Not on file 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 * Telephone Encounter - Carmen Choi RN - 11/11/2023 2:10 PM CDT ----- Message from Bran Parra MD sent at 11/10/2023 10:12 AM CDT ----- Regarding: mri CT scan is suggestive of chronic pancreatitis. Please refer this patient to [facility] for EUS further recommendations. ----- Message ----- From: Ronda Strong, PAC Sent: 11/03/2023 3:49 PM CDT To: Bran Parra MD ----- Message ----- From: Constantino Ramires, PAC Sent: 11/03/2023 3:36 PM CDT To: DENICE Blanco Not my patient. Looks like Fidel already provided recommendations. I dont think her PCP is with [facility]. ----- Message ----- From: Ronda Strong PAC Sent: 11/03/2023 3:26 PM CDT To: DENICE Sullivan To PCP ----- Message ----- From: Bran Parra MD Sent: 11/03/2023 8:42 AM CDT To: DENICE Blanco; # Fluid collection is smaller than before on the recent MR exam Follow-up in the GI clinic in the next 4 weeks Consider referring for EUS at the next clinic visit documented in this encounter Plan of Treatment Upcoming Encounters Date Type Department Care Team (Late st Contact Info) Description 08/08/2024 3:45 PM MACHINE SET UP OPERATOR PAPER GOODS Office Visit [facility] - Endocrinology - [place] [address] [place] [address] Salome Larsen MD [address] [phone] documented as of this encounter Visit Diagnoses Not on filedocumented in this encounter Care Teams Plate Maker Zinc Relationship Specialty Start Date End Date rAi West PA [facility] [place] [address] PCP - General Physician Paperhanger Apprentice 07/21/23 Salome Larsen MD #[address] [address] Consulting Physician Endocrinology 09/01/23 Wally Sandoval MD #[address] [place] [address] Consulting Physician Gastroenterology 09/08/23 documented as of this encounter
--- OUTSIDE RECORDS SUMMARY | 2024-07-02 03:51 | XMS_ITS | Encounter Summary ---
Author Organization [email or web address] Care Team Providers Care Welfare Case Worker Name Role Phone Ari West Primary Care Provider [phone] Salome Larsen MD Unavailable Wally Sandoval MD Unavailable [phone] Encounter Details Date Type Department Care Team (Latest Contact Info) Description 10/27/2023 Travel Social History Tobacco Use Types Packs/Day Years Used Date Smoking Tobacco: Every Day Cigarettes Smokeless Tobacco: Never Alcohol Use Standard Drinks/Week Comments Not Currently 0 (1 standard drink = 0.6 oz pur e alcohol) Sexually Active Control Partners Comments Yes Male Comments No Sex and Gender Information Value Date Recorded Sex Assigned at Not on file 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 Gender Identity Not on file Sexual Orientation Not on file documented as of this encounter Plan of Treatment Upcoming Encounters Date Type Department Care Team (Late st Contact Info) Description 08/08/2024 3:45 PM SENIOR ELECTRICAL ESTIMATOR Office Visit [facility] - [facility] - [place] [address] [place] [address] Salome Larsen MD #[address] [address] documented as of this encounter Visit Diagnoses Not on filedocumented in this encounter Care Teams Welfare Case Worker Relationship Specialty Start Date End Date Ari West PA [address] [place] [address] PCP - General Physician Undergraduate Intern 07/21/23 Salome Larsen MD [facility] [phone] Consulting Physician Endocrinology 09/01/23 Wally Sandoval MD #2 [place] [address] Consulting Physician Gastroenterology 09/08/23 documented as of this encounter
--- OUTSIDE RECORDS SUMMARY | 2024-07-02 03:51 | XMS_ITS | Encounter Summary ---
Author Organization [facility] Address [address] [place] [address] Phone Care Team Providers Care Gas Load Dispatcher Name Role Phone Ari West Primary Care Provider [phone] Salome Larsen MD Unavailable Wally Sandoval MD Unavailable [phone] Reason for Referral * Radiology Services (Routine) - Closed Specialty Diagnoses / Procedures Referred By Contac t Referred To Contact Radiology Diagnoses Thyroid nodule Procedures US THYROID Salome Larsen MD [address] [address] Phone: tel: fax: Referral ID Status Reason Start Date Expiration Date Visits Re quested Visits Authorized [id number] Closed 09/13/2023 1 1 Reason for Visit * Radiology Services (Routine) - Closed Specialty Diagnoses / Procedures Referred By Janie de dios Referred To Contact Radiology Diagnoses Thyroid nodule Procedures US THYROID Salome Larsen MD #[address] [address] Phone: tel: fax: Referral ID Status Reason Start Date Expiration Date Visits Re quested Visits Authorized [id number] Closed 09/13/2023 1 1 Encounter Details Date Type Department Care Team (Latest Contact Info) Description 09/24/2023 7:24 AM CDT - 09/24/2023 11:59 PM CDT Hospital Encounter [facility] Ultrasound [address] [place] [address] Salome Larsen MD [address] [place] [address] Discharge Disposition: Discharged to home or Selfcare Social History Tobacco Use Types Packs/Day Years Used Date Smoking Tobacco: Every Day Cigarettes Smokeless Tobacco: Never Alcohol Use Standard Drinks/Week Comments Not Currently 0 (1 standard drink = 0.6 oz pur e alcohol) Sexually Active Control Partners Comments Yes Male Comments No Sex and Gender Information Value Date Recorded Sex Assigned at Not on file Legal Sex Female 10:57 AM JAIL KEEPER Gender Identity Not on file Sexual Orientation Not on file documented as of this encounter Medications at Time of Discharge ALBUTEROL SULFATE HFA IN take 90 mcg by inhalation as needed. amphetamine-dext roamphetamine (ADDERALL XR) 20 MG CAPSULE SR 24 HR Take 30 mg by mouth every morning. busPIRone (BUSPAR) 15 MG TabletIndication s:Anxiety Disorder Take 15 mg by mouth 3 times daily. Indications: Anxiety Disorder Continuous Blood Gluc Filtrose Crusher (Dexcom G7 Filtrose Crusher) Device Check blood sugar before each meal and at bedtime 1 Each 09/13/2023 hydrOXYzine (VISTARIL) 25 MG Capsule Take 25 mg by mouth nightly. PRN Insulin Pen Needle (Pen [employer]) 32G X 4 MM Misc 4 times a day 400 Each 3 09/13/2023 Insulin Syringe-Needle U-100 (TRUEplus Insulin Syringe) 30G X 5/16 0.5 ML Misc by Does not apply route. pregabalin (LYRICA) 200 MG CapsuleIndicatio ns:Neuropathic Pain Take 200 mg by mouth 3 times daily. Indications: Neuropathic Pain Ascorbic Acid (VITAMIN C PO) Take by mouth daily. 4 atorvastatin (LIPITOR) 10 MG Tablet Take 10 mg by mouth daily. 4 Cholecalciferol (VITAMIN D3 PO) Take 50,000 Units by mouth once a week. 4 citalopram (CeleXA) 40 MG Tablet Take 40 mg by mouth daily. 4 Continuous Blood Gluc Sensor (Dexcom G7 Sensor) Mis Every 10 days 9 Each 1 09/13/2023 5 escitalopram (LEXAPRO) 10 MG Tablet Take 10 mg by mouth daily. 06/01/2019 4 fluticasone (Flovent HFA) 110 MCG/ACT Aerosol take 2 Puffs by inhalation 2 times daily. 4 ibandronate (BONIVA) 150 MG Tablet Take 150 mg by mouth every 30 days. 4 insulin glargine (Lantus SoloStar) 100 UNIT/ML Solution Pen-injector 30 Units by Subcutaneous route nightly. 30 mL 1 09/13/2023 5 Insulin Lispro, 1 Unit Dial, (HumaLOG KwikPen) 100 UNIT/ML Solution Pen-injector 10 units before each meal; correctional factor insulin 1:25 if > 150 mg/dL, up to 60 units/day 60 mL 1 09/13/2023 4 lisinopril (PRINIVIL, ZESTRIL) 5 MG Tablet Take 5 mg by mouth daily. 4 Multiple Vitamin (MULTI-VITAMIN PO) Take by mouth daily. 4 nicotine (NICODERM CQ) 21 MG/24HR PATCH 24 HR 1 Patch by Transdermal route every 24 hours. 4 nicotine polacrilex (COMMIT) 4 MG Lozenge 4 mg by Buccal route as needed. 4 Pancrelipase, Cir-Lark-Yscv, (Creon) 11613-[id number] Capsule DR Particles Take 2 Capsules by mouth 3 times daily (with meals) for 30 days. 180 Capsule 3 09/07/2023 4 QUEtiapine (SEROquel) 100 MG Tablet Take 100 mg by mouth 2 times daily. 4 Thiamine HCl (VITAMIN B-1 PO) Take 100 mg by mouth. 4 documented as of this encounter Plan of Treatment Upcoming Encounters Date Type Department Care Team (Late st Contact Info) Description 08/08/2024 3:45 PM JAIL KEEPER Office Visit [facility] - Endocrinology - [place] [address] [place] [address] Salome Larsen MD #[address] [address] documented as of this encounter Procedures Procedure Name Priority Date/Time Associated Diagnosis Comments US THYROID Routine 09/24/2023 7:38 AM CDT Thyroid nodule documented in this encounter Results * US THYROID (09/24/2023 7:38 AM CDT) Anatomical Region Laterality Modality BODY N/A Ultrasound 09/27/2023 3:21 PM CDT Impressions 09/27/2023 3:24 PM CDT IMPRESSION: Normal thyroid ultrasound. Narrative 09/27/2023 3:24 PM CDT EXAM DESCRIPTION: ?? US THYROID REASON FOR STUDY: ?? thyroid nodule ?? TECHNIQUE: Ultrasound of the thyroid was performed with grayscale and color doppler. COMPARISON: None FINDINGS: RIGHT: The right thyroid lobe measures ??4.3 x 1.6 x 1.5 ?? cm. ??The right thyroid lobe is normal in echotexture. LEFT: The left thyroid lobe measures ??4.2 x 1.8 x 1.5 ??cm. ??The left thyroid lobe is normal in echotexture. ISTHMUS: The isthmus measures ??2.6 mm ??in AP dimension. ??The isthmus is normal in echotexture. VASCULARITY: ??Normal. OTHER: ??No discrete thyroid nodules are identified. THIS IS AN ELECTRONICALLY VERIFIED FINAL REPORT 09/27/2023 3:21 PM - Electronically signed by ??Agustin Corbett M.D. JR: D: ??09/27/2023 3:21 PM T: ??09/27/2023 3:21 PM Report ID: [id number] Reading Location: ??[id number] Procedure Note Agustin Corbett MD - 09/27/2023 EXAM DESCRIPTION: US THYROID REASON FOR STUDY: thyroid nodule TECHNIQUE: Ultrasound of the thyroid was performed with grayscale and color doppler. COMPARISON: None FINDINGS: RIGHT: The right thyroid lobe measures 4.3 x 1.6 x 1.5 cm. The right thyroid lobe is normal in echotexture. LEFT: The left thyroid lobe measures 4.2 x 1.8 x 1.5 cm. The left thyroid lobe is normal in echotexture. ISTHMUS: The isthmus measures 2.6 mm in AP dimension. The isthmus is normal in echotexture. VASCULARITY: Normal. OTHER: No discrete thyroid nodules are identified. THIS IS AN ELECTRONICALLY VERIFIED FINAL REPORT 09/27/2023 3:21 PM - Electronically signed by Agustin Corbett M.D. JR: Report ID: [id number] Reading Location: [place] [address] IMPRESSION: Normal thyroid ultrasound. us Salome Larsen MD IMG US ORDERABLES Final Result documented in this encounter Visit Diagnoses Diagnosis Thyroid nodule Nontoxic uninodular goiter documented in this encounter Additional Health Concerns Infection Onset Date Last Indicated Resolved Time C. difficile Rule-Out 09/24/2023 09/24/20232023 12:16 AM CDT documented as of this encounter Care Teams Gas Load Dispatcher Relationship Specialty Start Date End Date Ari West PA [address] [place] [address] PCP - General Physician Eddy Current Inspector 07/21/23 Salome Larsen MD #[address] [phone] Consulting Physician Endocrinology 09/01/23 Wally Sandoval MD [address]2 [place] [address] Consulting Physician Gastroenterology 09/08/23 documented as of this encounter
--- OUTSIDE RECORDS SUMMARY | 2024-07-02 03:51 | XMS_ITS | Encounter Summary ---
Author Organization [facility] Address [address] [place] [address] Phone Care Team Providers Care Customer Operations Manager Name Role Phone Ari West Primary Care Provider [phone] Salome Larsen MD Unavailable Wally Sandoval MD Unavailable [phone] Reason for Visit * Reason Comments diabetic neuropathy Referral dr west * Consult, Test & Initiate Treatment (Routine) - Closed Specialty Diagnoses / Procedures Referred By Janie de dios Referred To Contact Neurology Diagnoses Type 2 diabetes mellitus with diabetic neuropathy, unspecified Ari West PA [address] [place] [address] Phone: tel: fax: [facility] - Neurology - [place] [address] [place] [address] Phone: tel: fax: Referral ID Status Reason Start Date Expiration Date Visits Re quested Visits Authorized [id number] Closed 1 1 Encounter Details Date Type Department Care Team (Late st Contact Info) Description 03/06/2024 2:00 PM CDT Office Visit [facility] - Neurology - [place] [address] [place] [address] Nabeel Prado MD [address] [place] [address] Diabetic polyneuropathy associated with type 2 diabetes mellitus (HCC) (Primary Dx); Bipolar affective disorder, remission status unspecified (HCC); History of alcohol abuse; Cigarette nicotine dependence without complication Discharge Disposition: Discharged to home or Selfcare Social History Tobacco Use Types Packs/Day Years Used Date Smoking Tobacco: Every Day Cigarettes 0.5 27 Started: 06/14/1997 Smokeless Tobacco: Never Tobacco Cessation:Ready to Q uit: Yes; Counseling Given: Not Answered Alcohol Use Standard Drinks/Week Comments Not Currently 0 (1 standard drink = 0.6 oz pur e alcohol) Sexually Active Control Partners Comments Yes Male Comments No Sex and Gender Information Value Date Recorded Sex Assigned at Not on file Legal Sex Female 10:57 AM SENIOR ACCOUNT EXECUTIVE Gender Identity Not on file Sexual Orientation Not on file documented as of this encounter Last Filed Vital Signs Vital Sign Reading Time Taken Comments Blood Pressure 130/90 03/06/2024 1:46 PM CDT Pulse 98 03/06/2024 1:46 PM CDT Temperature 36.7 ??C (98.1 ??F) 03/06/2024 1:46 PM CD T Respiratory Rate 16 03/06/2024 1:46 PM CDT Oxygen Saturation 100% 03/06/2024 1:46 PM CDT Inhaled Oxygen Concentration - - Weight 83.7 kg (184 lb 8 oz) 03/06/2024 1:46 PM CDT Height 157.5 cm (5' 2 ) 03/06/2024 1:46 PM CDT Body Mass Index 33.75 03/06/2024 1:46 PM CDT documented in this encounter Progress Notes * Nabeel Prado MD - 03/06/2024 2:00 PM CDT NEUROLOGY CONSULT Date of Service: 03/06/2024 Assessment and Plan Marisa was seen today for diabetic neuropathy. Diagnoses and all orders for this visit: Diabetic polyneuropathy associated with type 2 diabetes mellitus (HCC) - discussed with the patient that I do not think a higher dose of Lyrica would be beneficial and may cause significant side effects - agree with Cymbalta but noted that it will likely take more time to get any benefit - other considerations maybe amitriptyline if she does not respond - COMPLETE BLOOD COUNT (CBC) WITH DIFF; Future - CMP (COMPREHENSIVE METABOLIC PANEL); Future - ERYTHROCYTE SEDIMENTATION RATE (ESR); Future - GLUCOSE TOLERANCE TEST (GTT), 2 HOUR; Future - HEMOGLOBIN A1C W/ ESTIMATED GLUCOSE; Future - VITAMIN B12; Future - THYROID STIMULATING HORMONE (TSH); Future - METHYLMALONIC ACID, QN, MMAS; Future - FOLIC ACID (FOLATE); Future Bipolar affective disorder, remission status unspecified (HCC) - currently stable at this time History of alcohol abuse - currently in remission Cigarette nicotine dependence without complication - encouraged smoking cessation Reason for Consultation: diabetic polyneuropathy HPI: Marisa is a 43-year-old female with a history of diabetes mellitus and chronic alcohol abuse currently in remission. Patient notes 2-3 years ago she has been dealing with symptoms for many years. She has been on Lyrica 200 mg p.o. t.i.d. but feels that she may need a stronger dose. Patient was recently prescribed duloxetine but has only just started taking it. Past Medical History Positives Diagnosis Date ADHD Anxiety Bipolar disorder (HCC) Depression Diabetes mellitus (HCC) Diabetic polyneuropathy (HCC) Osteopenia Osteoporosis Pancreatitis Past Surgical History: Procedure Laterality Date SECTION, CLASSIC TIMES 3 HUMERUS FRACTURE SURGERY Left 2020 OTHER SURGICAL HISTORY Drainage catheter around pancreas Family History Problem Relation Age of Onset Cancer Mother Lung Heart Disease Mother Dementia Mother Other-comment Father blood clot disorder Cancer Paternal Grandfather colon Cancer Paternal Cousin colon Social History Tobacco Use Smoking status: Every Day Current packs/day: 0.50 Average packs/day: 0.5 packs/day for 26.7 years (13.4 ttl pk-yrs) Types: Cigarettes Start date: 06/14/1997 Smokeless tobacco: Never Substance Use Topics Alcohol use: Not Currently No Known Allergies Current Outpatient Medications: ALBUTEROL SULFATE HFA IN, take 90 mcg by inhalation as needed., Disp: , Rfl: amphetamine-dextroamphetamine (ADDERALL XR) 20 MG CAPSULE SR 24 HR, Take 30 mg by mouth every morning., Disp: , Rfl: busPIRone (BUSPAR) 15 MG Tablet, Take 15 mg by mouth 3 times daily. Indications: Anxiety Disorder, Disp: , Rfl: Continuous Blood Gluc Calendar Control Clerk Blood Bank (Dexcom G7 Calendar Control Clerk Blood Bank) Device, Check blood sugar before each meal and at bedtime, Disp: 1 Each, Rfl: 0 Continuous Blood Gluc Sensor (Dexcom G7 Sensor) Misc, Every 10 days, Disp: 9 Each, Rfl: 1 DULoxetine (CYMBALTA) [address] Particles, Take 60 mg by mouth daily., Disp: , Rfl: hydrOXYzine (VISTARIL) 25 MG Capsule, Take 25 mg by mouth nightly. PRN, Disp: , Rfl: insulin glargine (Lantus SoloStar) 100 UNIT/ML Solution Pen-injector, 30 Units by Subcutaneous route nightly., Disp: 30 mL, Rfl: 1 Insulin Lispro, 1 Unit Dial, (HumaLOG KwikPen) 100 UNIT/ML Solution Pen- injector, 10 units before each meal; correctional factor insulin 1:25 if > 150 mg/dL, up to 60 units/day, Disp: 60 mL, Rfl: 1 Insulin Pen Needle (Pen [place]) 32G X 4 MM Misc, 4 times a day, Disp: 400 Each, Rfl: 3 Insulin Syringe-Needle U-100 (TRUEplus Insulin Syringe) 30G X 5/16 0.5 ML Misc, by Does not apply route., Disp: , Rfl: Pancrelipase, Bti-Rhly-Gnyf, (CREON 09182) [id number] Capsule DR Particles, Take 1 Capsule by mouth 3 times daily (with meals)., Disp: , Rfl: pregabalin (LYRICA) 200 MG Capsule, Take 200 mg by mouth 3 times daily. Indications: Neuropathic Pain, Disp: , Rfl: Review of Systems: A 14 point Review of Systems is obtained, and is negative other than that mentioned in the History of Present Illness. Objective: VITALS: Blood pressure 130/90, pulse 98, temperature 98.1 ??F (36.7 ??C), temperature source Temporal, resp. rate 16, height 5' 2 (1.575 m), weight 184 lb 8 oz (83.7 kg), last menstrual period 08/11/2023, SpO2 100%. Weight: Wt Readings from Last 1 Encounters: 03/06/24 184 lb 8 oz (83.7 kg) Body mass index is 33.75 kg/m??. EXAM: General appearance: alert, no distress, cooperative, appears stated age Head: Normocephalic, without obvious abnormality, atraumatic Heart: regular rate and rhythm, S1, S2 normal, no murmur, click, rub or gallop Extremities: extremities normal, atraumatic, no cyanosis or edema Neurologic: Data Review: Radiology Reviewed: yes No results found. CBC: Lab Results Component Value Date WBC 7.80 09/07/2023 RBC 4.58 09/07/2023 HEMOGLOBIN 10.9 (L) 09/07/2023 HEMATOCRIT 35.2 (L) 09/07/2023 PLATELETCNT 171 09/07/2023 CMP: Lab Results Component Value Date SODIUM 136 09/07/2023 POTASSIUM 3.7 09/07/2023 CHLORIDE 105 09/07/2023 CO2VEN 24 09/07/2023 ANIONGAP 10.7 09/07/2023 GLUCOSE 276 (H) 09/07/2023 BUN 11 09/07/2023 CREATININE 0.72 09/07/2023 BCRATIO8 15 09/07/2023 TOTALPROTEIN 7.0 09/07/2023 ALBUMIN 3.6 09/07/2023 CALCIUM 8.5 (L) 09/07/2023 TBIL 0.3 09/07/2023 SGPTALT 19 09/07/2023 ALKALINEPHO 98 09/07/2023 GFRNA >60 09/07/2023 GFRA >60 09/07/2023 GFRES >60 09/07/2023 Coagulation: No results found for: PTP , INR , PTT Cardiac markers: No results found for: HSTRP , TROPONINI , POCTRP By: Nabeel Prado MD, 03/06/2024, 2:02 PM CDT Primary Care Physician: YOMI ERICKSON documented in this encounter Plan of Treatment Upcoming Encounters Date Type Department Care Team (Late st Contact Info) Description 08/08/2024 3:45 PM SENIOR ACCOUNT EXECUTIVE Office Visit [facility] - Endocrinology - [place] [address] [place] [address] Salome Larsen MD [address] [phone] Scheduled Orders Name Type Priority Associated Diagnoses Orde r Schedule COMPLETE BLOOD COUNT (CBC) WITH DIFF Lab Routine Diabetic polyneuropathy associated with type 2 diabetes mellitus (HCC) Expected: 03/06/2024, Expires: 06/04/2024 CMP (COMPREHENSIVE METABOLIC PANEL) Lab Routine Diabetic polyneuropathy associated with type 2 diabetes mellitus (HCC) Expected: 03/06/2024, Expires: 06/04/2024 ERYTHROCYTE SEDIMENTATION RATE (ESR) Lab Routine Diabetic polyneuropathy associated with type 2 diabetes mellitus (HCC) Expected: 03/06/2024, Expires: 06/04/2024 GLUCOSE TOLERANCE TEST (GTT), 2 HOUR Lab Routine Diabetic polyneuropathy associated with type 2 diabetes mellitus (HCC) Expected: 03/06/2024, Expires: 06/04/2024 HEMOGLOBIN A1C W/ ESTIMATED GLUCOSE Lab Routine Diabetic polyneuropathy associated with type 2 diabetes mellitus (HCC) Expected: 03/06/2024, Expires: 06/04/2024 VITAMIN B12 Lab Routine Diabetic polyneuropathy associated with type 2 diabetes mellitus (HCC) Expected: 03/06/2024, Expires: 06/04/2024 THYROID STIMULATING HORMONE (TSH) Lab Routine Diabetic polyneuropathy associated with type 2 diabetes mellitus (HCC) Expected: 03/06/2024, Expires: 06/04/2024 METHYLMALONIC ACID, QN, MMAS Lab Routine Diabetic polyneuropathy associated with type 2 diabetes mellitus (HCC) Expected: 03/06/2024, Expires: 06/04/2024 FOLIC ACID (FOLATE) Lab Routine Diabetic polyneuropathy associated with type 2 diabetes mellitus (HCC) Expected: 03/06/2024, Expires: 09/03/2024 documented as of this encounter Visit Diagnoses Diagnosis Diabetic polyneuropathy associated with type 2 diabetes mellitus (HCC)- Primary Bipolar affective disorder, remission status unspecified (HCC) History of alcohol abuse Nondependent alcohol abuse, in remission Cigarette nicotine dependence without complication Tobacco use disorder documented in this encounter Care Teams Customer Operations Manager Relationship Specialty Start Date End Date Ari West PA [address] [place] [address] PCP - General Physician Furniture Removalist 07/21/23 Salome Larsen MD #[address] [address] Consulting Physician Endocrinology 09/01/23 Wally Sandoval MD #[address] [place] [address] Consulting Physician Gastroenterology 09/08/23 documented as of this encounter
--- OUTSIDE RECORDS SUMMARY | 2024-07-02 03:51 | XMS_ITS | Encounter Summary ---
Author Organization [facility] Address [address] [place] [address] Phone Care Team Providers Care Divinity Teacher Name Role Phone Ari West Primary Care Provider [phone] Salome Larsen MD Unavailable Wally Sandoval MD Unavailable [phone] Reason for Visit * Reason Onset Date Comments Results 12/02/2023 Encounter Details Date Type Department Care Team (Late st Contact Info) Description 12/02/2023 Telephone [facility] - Endocrinology - [place] [address] [place] [address] Salome Larsen MD #[address] [address] Results Social History Tobacco Use Types Packs/Day Years Used Date Smoking Tobacco: Every Day Cigarettes Smokeless Tobacco: Never Alcohol Use Standard Drinks/Week Comments Not Currently 0 (1 standard drink = 0.6 oz pur e alcohol) Sexually Active Control Partners Comments Yes Male Comments No Sex and Gender Information Value Date Recorded Sex Assigned at Not on file Legal Sex Female 10:57 AM 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 documented in this encounter Plan of Treatment Upcoming Encounters Date Type Department Care Team (Late st Contact Info) Description 08/08/2024 3:45 PM WEBSPHERE COMMERCE CONSULTANT Office Visit [facility] - Endocrinology - [place] [address] [place] [address] Salome Larsen MD #[address] [address] documented as of this encounter Visit Diagnoses Not on filedocumented in this encounter Care Teams Divinity Teacher Relationship Specialty Start Date End Date Ari West PA [address] [place] [address] PCP - General Physician Province Archivist 07/21/23 Salome Larsen MD #[address] [address] Consulting Physician Endocrinology 09/01/23 Wally Sandoval MD [address] [place] [address] Consulting Physician Gastroenterology 09/08/23 documented as of this encounter
--- OUTSIDE RECORDS SUMMARY | 2024-07-02 03:51 | XMS_ITS | Encounter Summary ---
Author Organization [employer] Care Team Providers Care Coal Trimmer Name Role Phone Ari West Primary Care Provider [phone] Salome aLrsen MD Unavailable Wally aSndoval MD Unavailable [phone] Nabeel Prado MD Unavailable [phone] Encounter Details Date Type Department Care Team (Latest Contact Info) Description 05/30/2024 Travel Social History Tobacco Use Types Packs/Day [...] on file Legal Sex Female 10:57 AM BEE PRODUCER Gender Identity Not on file Sexual Orientation Not on file documented as of this encounter Plan of Treatment Upcoming Encounters Date Type Department Care Team (Late st Contact Info) Description 08/08/2024 3:45 PM BEE PRODUCER Office Visit [facility] - Endocrinology - [place] [address] [place] [address] Salome Larsen MD [address] [address] documented as of this encounter Visit Diagnoses Not on filedocumented in this encounter Care Teams Coal Trimmer Relationship Specialty Start Date End Date Ari West PA [facility] [place] [address] PCP - General Physician Social Media Intern 07/21/23 Salome Larsen MD #[address] [address] Consulting Physician Endocrinology 09/01/23 Wally Sandoval MD #2 [place] [address] Consulting Physician Gastroenterology 09/08/23 Nabeel Prado MD #[address] [place] [phone] Consulting Physician Neurology 03/07/24 documented as of this encounter
--- OUTSIDE RECORDS SUMMARY | 2024-07-02 03:51 | XMS_ITS | Encounter Summary ---
Author Organization [facility] Address [address] 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 Name Role Phone Ari West Primary Care Provider [phone] Salome Larsen MD Unavailable Wally Sandoval MD Unavailable [phone] Nabeel Prado MD Unavailable [phone] Reason for Referral * Radiology Services (Routine) - Closed Specialty Diagnoses / Procedures Referred By Contac t Referred To Contact Radiology Procedures GI LAB IMAGING - EGD Uriel Chavarria MD [address] [place] [address] Phone: tel: fax: Referral ID Status Reason Start Date Expiration Date Visits Re quested Visits Authorized [id number] Closed 05/31/2024 1 1 JACK MAN * Radiology Services (Routine) - Closed Specialty Diagnoses / Procedures Referred By Contac t Referred To Contact Radiology Procedures GI IMAGING - COLONOSCOPY Uriel Chavarria MD [address] [place] [address] Phone: tel: fax: Referral ID Status Reason Start Date Expiration Date Visits Re quested Visits Authorized [id number] Closed 05/31/2024 1 1 JACK MAN Reason for Visit * Auth/Cert (Routine) Specialty Diagnoses / Procedures Referred By Contac t Referred To Contact Diagnoses ALCOHOL INDUCED CHRONIC PANCREATITIS Procedures EGD COLONOSCOPY Uriel Chavarria MD [address] [facility] [address] [address] Phone: tel: fax: Referral ID Status Reason Start Date Expiration Date Visits Re quested Visits Authorized [id number] 1 1 Encounter Details Date Type Department Care Team (Latest Contact Info) Description 05/31/2024 7:43 AM GRAB JACK MAN - 05/31/2024 10:00 AM GRAB JACK MAN Hospital Encounter [facility] GI Lab Preop/Pacu II 1 [facility] [place] [id number] Uriel Chavarria MD [address] [facility] [address] [address] [id number] Discharge Disposition: Discharged to home or Selfcare [...] on file Legal Sex Female 10:57 AM GRAB JACK MAN Gender Identity Not on file Sexual Orientation Not on file documented as of this encounter Last Filed Vital Signs Vital Sign Reading Time Taken Comments Blood Pressure 120/88 05/31/2024 9:46 AM GRAB JACK MAN Pulse 98 05/31/2024 9:46 AM GRAB JACK MAN Temperature 37 ??C (98.6 ??F) 05/31/2024 9:46 AM GRAB JACK MAN Respiratory Rate 15 05/31/2024 9:46 AM GRAB JACK MAN Oxygen Saturation 100% 05/31/2024 9:46 AM GRAB JACK MAN Inhaled Oxygen Concentration - - Weight 83.5 kg (184 lb) 05/30/2024 8:54 AM GRAB JACK MAN Height 157.5 cm (5' 2 ) 05/30/2024 8:54 AM GRAB JACK MAN Body Mass Index 33.65 05/30/2024 8:54 AM GRAB JACK MAN documented in this encounter Discharge Instructions * Discharge Instructions* Xochitl Jeffers, RN - 05/31/2024 8:49 AM GRAB JACK MAN YOU HAD AN EGD AND A COLONOSCOPY. DR. CHAVARRIA FOUND: EGD/ COLONOSCOPY Brief Findings: no upper GI lesions or ulcers and no esophageal varices noted, GE junction at 36 cm, poor bowel prep but colonoscope was able to reach the cecum. DO NOT DRIVE, WORK, OPERATE MACHINERY OR USE POWER TOOLS UNTIL DAY AFTER PROCEDURE. NO ALCOHOL BEVERAGES TODAY FOLLOWING DAY: RETURN TO FULL ACTIVITY, INCLUDING WORK, UNLESS INSTRUCTED OTHERWISE. Call doctor's office (GI [phone]) ([place] [phone]) or go to Emergency room for: Difficulty Breathing, Headache Or Visual Disturbances Persistent Dizziness Or Light-Headedness Persistent Nausea and Vomiting Temperature greater then 100.0 Significant abdominal pain, chest pain, or bleeding. Here at [facility] we strive to provide excellent care to each of our patients, along with an easy transition between departments, starting with registration until discharge. Through our excellent care and services, we hope that you would recommend our services to your family and friends. You will receive a follow-up phone call in 24-48 hours after your procedure to see how you are doing. This gives our patients the opportunity to recognize any members from our team, from housekeepers, to nurses, to physicians, that you felt gave you excellent service as well as any suggestions for improvement. We hope you found our facility clean and our mission partners courteous. You may also receiving a survey in the mail. We would appreciate it if you could complete the form and return it. A self addressed pre-paid envelope is provided. Thank you for choosing [facility]. JACK MAN JACK MAN JACK MAN documented in this encounter Medications at Time of Discharge ALBUTEROL SULFATE HFA IN take 90 mcg by inhalation as needed. amphetamine-dext roamphetamine (ADDERALL XR) 20 MG CAPSULE SR 24 HR Take 30 mg by mouth every morning. busPIRone (BUSPAR) 15 MG TabletIndication s:Anxiety Disorder Take 15 mg by mouth 3 times daily. Indications: Anxiety Disorder Continuous Blood Gluc Lapel Padder Blindstitch (Dexcom G7 Lapel Padder Blindstitch) Device Check blood sugar before each meal and at bedtime 1 Each 09/13/2023 DULoxetine (CYMBALTA) [address] Particles Take 60 mg by mouth daily. hydrOXYzine (VISTARIL) 25 MG Capsule Take 25 mg by mouth nightly. PRN Insulin Pen Needle (Pen [place]) 32G X 4 MM Misc 4 times a day 400 Each 3 09/13/2023 Insulin Syringe-Needle U-100 (TRUEplus Insulin Syringe) 30G X 5/16 0.5 ML Misc by Does not apply route. Pancrelipase, Cfx-Upyv-Ceeu, (CREON 06872) [id number] Capsule DR Particles Take 1 Capsule by mouth 3 times daily (with meals). pregabalin (LYRICA) 200 MG CapsuleIndicatio ns:Neuropathic Pain Take 200 mg by mouth 3 times daily. Indications: Neuropathic Pain Continuous Blood Gluc Sensor (Dexcom G7 Sensor) Misc Every 10 days 9 Each 1 09/13/2023 5 insulin glargine (Lantus SoloStar) 100 UNIT/ML Solution Pen-injector 30 Units by Subcutaneous route nightly. 30 mL 1 09/13/2023 5 Insulin Lispro, 1 Unit Dial, 100 UNIT/ML Solution Pen-injector INJECT 10 UNITS UNDER SKIN BEFORE EACH MEAL; CORRECTIONAL FACTOR INSULIN 1:25 IF>150MG/DL. MAX OF 60 UNITS DAILY 30 mL 05/01/2024 5 documented as of this encounter H&P Notes * Uriel Chavarria MD - 05/31/2024 8:35 AM CST I have reviewed Marisa Lott's History and Physical, re-examined her, and no change has occurred in her condition since the H&P was completed. I have explained the risks, benefits and alternatives including but not limited to infection, perforation, bleeding and possible need for subsequent procedure. All questions were answered and the patient is willing to proceed. By: Uriel Chavarria MD, 05/31/2024, 8:35 AM GRAB JACK MAN JACK MAN * Uriel Chavarria MD - 05/31/2024 8:02 AM CST INPATIENT HISTORY AND PHYSICAL NOTE Date / Time of Admission: 05/31/2024 7:43 AM Patient ID: Marisa Lott is an 44 y.o. female. Assessment: Active Problems: * No active hospital problems. * History of alcohol induced pancreatitis, abnormal CT scan Plan: Esophagogastroduodenoscopy Subjective: HPI Ms. Seth is a 44 year old female with a history of alcohol induced pancreatitis who recently had a chest CT with the finding of gastric wall thickening and possible dilated esophageal varices. No primary relative with colon cancer, but multiple grandparents and a cousin who is 47 with stage III disease. PMHx: She has a past medical history of ADHD, Anxiety, Bipolar disorder (HCC), Depression, Diabetesmellitus (HCC), Diabetic polyneuropathy (HCC), Osteopenia, Osteoporosis, and Pancreatitis. PSHx: Her has a past surgical history that includes Section, Classic; Humerus Fracture Surgery (Left, 2019); and Other Surgical History. SHx: She reports that she has been smoking cigarettes. She started smoking about 26 years ago. She has a 13.5 pack-year smoking history. She has never used smokeless tobacco. She reports that she does not currently use alcohol. She reports that she does not currently use drugs. FHx: Her family history includes Cancer in her mother, paternal cousin, and paternal grandfather; Dementia in her mother; Heart Disease in her mother; Other-comment in her father. Allergies: Allergies There is no known ICA information for this patient. MEDS: Prior to Admission Medications Prescriptions Last Dose Informant Patient Reported? Taking? ALBUTEROL SULFATE HFA IN 05/30/2024 Yes Yes Sig: take 90 mcg by inhalation as needed. Continuous Blood Gluc Lapel Padder Blindstitch (Dexcom G7 Lapel Padder Blindstitch) Device 05/30/2024 No Yes Sig: Check blood sugar before each meal and at bedtime Continuous Blood Gluc Sensor (Dexcom G7 Sensor) Misc 05/30/2024 No Yes Sig: Every 10 days DULoxetine (CYMBALTA) [address] Particles 05/30/2024 Yes Yes Sig: Take 60 mg by mouth daily. Insulin Lispro, 1 Unit Dial, 100 UNIT/ML Solution Pen-injector 05/30/2024 No Yes Sig: INJECT 10 UNITS UNDER SKIN BEFORE EACH MEAL; CORRECTIONAL FACTOR INSULIN 1:25 IF>150MG/DL. MAX OF 60 UNITS DAILY Insulin Pen Needle (Pen [place]) 32G X 4 MM [facility]/2024 No Yes Si times a day Insulin Syringe-Needle U-100 (TRUEplus Insulin Syringe) 30G X /16 0.5 ML [facility] [place]/30/2024 Yes Yes Sig: by Does not apply route. Pancrelipase, Iet-Pkug-Euel, (CREON 62436) [id number] Capsule DR Particles 05/29/2024 Yes Yes Sig: Take 1 Capsule by mouth 3 times daily (with meals). amphetamine-dextroamphetamine (ADDERALL XR) 20 MG CAPSULE SR 24 HR 05/29/2024 Yes Yes Sig: Take 30 mg by mouth every morning. busPIRone (BUSPAR) 15 MG Tablet 05/30/2024 Yes Yes Sig: Take 15 mg by mouth 3 times daily. Indications: Anxiety Disorder hydrOXYzine (VISTARIL) 25 MG Capsule 05/29/2024 Yes Yes Sig: Take 25 mg by mouth nightly. PRN insulin glargine (Lantus SoloStar) 100 UNIT/ML Solution Pen-injector 05/30/2024 Evening No Yes Si Units by Subcutaneous route nightly. pregabalin (LYRICA) 200 MG Capsule 05/30/2024 Yes Yes Sig: Take 200 mg by mouth 3 times daily. Indications: Neuropathic Pain Facility-Administered Medications: None Review of Systems Gastrointestinal: Positive for abdominal distention and abdominal pain. Negative for blood in stool. Objective: VITALS: Ht 5' 2 (1.575 m) Wt 184 lb (83.5 kg) LMP 08/11/2023 BMI 33.65 kg/m?? BMI: Body mass index is 33.65 kg/m??. Physical Exam Constitutional: Appearance: She is obese. HENT: Head: Normocephalic. Mouth/Throat: Comments: Poor dentintion Cardiovascular: Rate and Rhythm: Normal rate and regular rhythm. Heart sounds: Normal heart sounds. No murmur heard. Pulmonary: Effort: Pulmonary effort is normal. No respiratory distress. Breath sounds: Normal breath sounds. Abdominal: General: Bowel sounds are normal. Palpations: Abdomen is soft. Neurological: Mental Status: She is alert. Results Reviewed: CBC: Lab Results Component Value Date WBC 7.80 09/07/2023 RBC 4.58 09/07/2023 HEMOGLOBIN 10.9 (L) 09/07/2023 PLATELETCNT 171 09/07/2023 CMP: Lab [...] found for: PTP , INR , PTT By: Uriel Chavarria MD; 05/31/2024, 8:02 AM GRAB JACK MAN Attending Physician: Uriel Chavarria MD Primary Care Physician: YOMI ERICKSON JACK MAN documented in this encounter OR Notes * OR Surgeon - Uriel Chavarria MD - 05/31/2024 9:[address] Post op Notes BRIEF POST-OPERATIVE PROCEDURE NOTE (Full Note Pending) Date of Procedure: 05/31/2024 Surgeon(s): Surgeons and Role: * Uriel Chavarria MD - Primary Pre-operative Diagnosis: ALCOHOL INDUCED CHRONIC PANCREATITIS Post-operative Diagnosis: EGD - NORMAL EXAM COLONOSCOPY - POOR PREPARATION , NEGATIVE EXAM Procedure(s): Procedure(s): EGD - NORMAL EGD COLONOSCOPY - POOR PREPARATION , NEGATIVE EXAM Anesthesia: Monitored Anesthesia Care Additional Procedure Details: poor bowel prep Brief Findings: no upper GI lesions or ulcers and no esophageal varices noted, GE junction at 36 cm, poor bowel prep but colonoscope was able to reach the cecum. Estimated Blood Loss: * No values recorded between 05/31/2024 12:00 AM and 05/31/2024 9:11 AM * Specimens: No specimens collected Complications: * No complications entered in OR log * Total Operative Time: 0 Hr 27 Min 28 Sec Disposition: :PACU - hemodynamically stable Condition: stable Surgeon: Uriel Chavarria MD, 05/31/2024, 9:17 AM GRAB JACK MAN Disposition: PACU - hemodynamically stable. Condition: stable JACK MAN * OR Surgeon - Uriel Chavarria MD - 05/31/2024 8:35 AM CST Ms. Lott is a 44 year old female with an abnormal CT of the chest/upper GI tract and an extensive family history of colon cancer (but no first degree relative). After consent was obtained with a full understanding of the risks involved, the patient was broughtto the endoscopy suite, attached to multiple monitors, and placed left side down. We then held a time out and correctly identified the patient with two independent factors as well as the planned procedures. TIVA was then applied with good results. A bite block was inserted and the gastroscope was inserted into the oral cavity and down the esophagus to the GE junction found at 36 cm with no evidence of a hiatal hernia or reflux esophagitis and no dilated varices noted. The stomach was intubated and insufflated and the pylorus easily identified. The scope was then safely advanced to the third portion of the duodenum and no abnormalities wereseen. The scope was then brought back into the stomach and it was retroflexed with no ulcers seen in the body or antrum but a slight erythema of the gastric mucosa of the fundus was noted consistent with gastropathy was noted; however, no biopsies were taken as the patient was jerking and difficult to sedate. The stomach was then decompressed and the scope fully withdrawn. A digital rectal exam was performed with no significant findings and the colonoscope was inserted past the anal verge and into the rectum with the observation of a poor bowel prep. The scope was thencarefully advanced and maneuvered to the cecum which was confirmed by visualization of the ileocecal valve only (because of stool burden) as well as by palpation of the RLQ. Taking.six minutes for withdrawal, no masses or large polyps were observed but smaller polyps would be missed because of the retained stool. The scope was fully removed and the patient was taken to the recovery room in a stable condition. Recommend repeat colonoscopy within one year with a two-day prep. JACK MAN JACK MAN documented in this encounter Miscellaneous Notes * Plan of Care - Xochitl Jeffers RN - 05/31/2024 9:36 AM CST Problem: Adult Inpatient Plan of Care Goal: Plan of Care Review Outcome: Outcome Achieved Goal: Optimal Comfort and Wellbeing Outcome: Outcome Achieved Goal: Readiness for Transition of Care Outcome: Outcome Achieved JACK MAN * PatientPass Patient Instructions - Xochitl Jeffers RN - 05/31/2024 9:27 AM CST Images from the original note were not included. Patient Education Table of Contents Upper Endoscopy, Adult To view videos and all your education online visit, [email or web address] or scan this QR code with your smartphone. Access to this content will in one year. Upper Endoscopy, Adult Upper endoscopy is a procedure to look inside the upper GI (gastrointestinal) tract. The upper GI tract is made up of: The esophagus. This is the part of the body that moves food from your mouth to your stomach. The stomach. The duodenum. This is the first part of your small intestine. This procedure is also called esophagogastroduodenoscopy (EGD) or gastroscopy. In this procedure, your health care provider passes a thin, flexible tube (endoscope) through your mouth and down your esophagus into your stomach and into your duodenum. A small camera is attached to the end of the tube. Images from the camera appear on a monitor in the exam room. During this procedure, your health care provider may also remove a small piece of tissue to be sent to a lab and examined under a microscope (biopsy). Your health care provider may do an upper endoscopy to diagnose cancers of the upper GI tract. You may also have this procedure to find the cause of other conditions, such as: Stomach pain. Heartburn. Pain or problems when swallowing. Nausea and vomiting. Stomach bleeding. Stomach ulcers. Tell a health care provider about: Any allergies you have. All medicines you are taking, including vitamins, herbs, eye drops, creams, and ydsj-tvu-cihvwiy medicines. Any problems you or family members have had with anesthetic medicines. Any bleeding problems you have. Any surgeries you have had. Any medical conditions you have. Whether you are or may be . What are the risks? Your healthcare provider will talk with you about risks. These may include: Infection. Bleeding. Allergic reactions to medicines. A tear or hole (perforation) in the esophagus, stomach, or duodenum. What happens before the procedure? When to stop eating and drinking Follow instructions from your health care provider about what you may eat and drink. These may include: 8 hours before your procedure ? Stop eating most foods. Do not eat meat, fried foods, or fatty foods. ? Eat only light foods, such as toast or crackers. ? All liquids are okay except energy drinks and alcohol. 6 hours before your procedure ? Stop eating. ? Drink only clear liquids, such as water, clear fruit juice, black coffee, plain tea, and sports drinks. ? Do not drink energy drinks or alcohol. 2 hours before your procedure ? Stop drinking all liquids. ? You may be allowed to take medicines with small sips of water. If you do not follow your health care provider's instructions, your procedure may be delayed or canceled. Medicines Ask your health care provider about: Changing or stopping your regular medicines. This is especially important if you are taking diabetes medicines or blood thinners. Taking medicines such as aspirin and ibuprofen. These medicines can thin your blood. Do not take these medicines unless your health care provider tells you to take them. Taking uhjm-lqy-mumrxvs medicines, vitamins, herbs, and supplements. General instructions If you will be going home right after the procedure, plan to have a responsible adult: Take you home from the hospital or clinic. You will not be allowed to drive. Care for you for the time you are told. What happens during the procedure? An IV will be inserted into one of your veins. You may be given one or more of the following: ? A medicine to help you relax (sedative). ? A medicine to numb the throat (local anesthetic). You will lie on your left side on an exam table. Your health care provider will pass the endoscope through your mouth and down your esophagus. Your health care provider will use the scope to check the inside of your esophagus, stomach, and duodenum. Biopsies may be taken. The endoscope will be removed. The procedure may vary among health care providers and hospitals. What happens after the procedure? Your blood pressure, heart rate, breathing rate, and blood oxygen level will be monitored until youleave the hospital or clinic. When your throat is no longer numb, you may be given some fluids to drink. If you were given a sedative during the procedure, it can affect you for several hours. Do not drive or operate machinery until your health care provider says that it is safe. It is up to you to get the results of your procedure. Ask your health care provider, or the department that is doing the procedure, when your results will be ready. Contact a health care provider if you: Have a sore throat that lasts longer than 1 day. Have a fever. Get help right away if you: Vomit blood or your vomit looks like coffee grounds. Have bloody, black, or tarry stools. Have a very bad sore throat or you cannot swallow. Have difficulty breathing or very bad pain in your chest or abdomen. These symptoms may be an emergency. Get help right away. Call 911. Do not wait to see if the symptoms will go away. Do not drive yourself to the hospital. Summary Upper endoscopy is a procedure to look inside the upper GI tract. During the procedure, an IV will be inserted into one of your veins. You may be given a medicine tohelp you relax. The endoscope will be passed through your mouth and down your esophagus. Follow instructions from your health care provider about what you can eat and drink. This information is not intended to replace advice given to you by your health care provider. Make sure you discuss any questions you have with your health care provider. Document Released: 2001-05-28 Document Updated: 2022-09-09 Document Reviewed: 2022-09-09 [employer] Patient Education ? 2023 [employer] JACK MAN * PatientPass Patient Instructions - Xochitl Jeffers RN - 05/31/2024 9:26 AM CST Images from the original note were not included. Patient Education Table of Contents Colonoscopy, Adult To view videos and all your education online visit, [email or web address] or scan this QR code with your smartphone. Access to this content will in one year. Colonoscopy, Adult A colonoscopy is a procedure to look at the entire large intestine. This procedure is done using a long, thin, flexible tube that has a camera on the end. You may have a colonoscopy: As a part of normal colorectal screening. If you have certain symptoms, such as: ? A low number of red blood cells in your blood (anemia). ? Diarrhea that does not go away. ? Pain in your abdomen. ? Blood in your stool. A colonoscopy can help screen for and diagnose medical problems, including: An abnormal growth of cells or tissue (tumor). Abnormal growths within the lining of your intestine (polyps). Inflammation. Areas of bleeding. Tell your health care provider about: Any allergies you have. All medicines you are taking, including vitamins, herbs, eye drops, creams, and nper-xwy-gskgwce medicines. Any problems you or family members have had with anesthetic medicines. Any bleeding problems you have. Any surgeries you have had. Any medical conditions you have. Any problems you have had with having bowel movements. Whether you are or may be . What are the risks? Generally, this is a safe procedure. However, problems may occur, including: Bleeding. Damage to your intestine. Allergic reactions to medicines given during the procedure. Infection. This is rare. What happens before the procedure? Eating and drinking restrictions Follow instructions from your health care provider about eating or drinking restrictions, which mayinclude: A few days before the procedure: ? Follow a low-fiber diet. ? Avoid nuts, seeds, dried fruit, raw fruits, and vegetables. 1?3 days before the procedure: ? Eat only gelatin dessert or ice pops. ? Drink only clear liquids, such as water, clear juice, clear broth or bouillon, black coffee or tea, or clear soft drinks or sports drinks. ? Avoid liquids that contain red or purple dye. The day of the procedure: ? Do not eat solid foods. You may continue to drink clear liquids until up to 2 hours before the procedure. ? Do not eat or drink anything starting 2 hours before the procedure, or within the time period that your health care provider recommends. Bowel prep If you were prescribed a bowel prep to take by mouth (orally) to clean out your colon: Take it as told by your health care provider. Starting the day before your procedure, you will needto drink a large amount of liquid medicine. The liquid will cause you to have many bowel movements of loose stool until your stool becomes almost clear or light green. If your skin or the opening between the buttocks (anus) gets irritated from diarrhea, you may relieve the irritation using: ? Wipes with medicine in them, such as adult wet wipes with aloe and vitamin E. ? A product to soothe skin, such as petroleum jelly. If you vomit while drinking the bowel prep: ? Take a break for up to 60 minutes. ? Begin the bowel prep again. ? Call your health care provider if you keep vomiting or you cannot take the bowel prep without vomiting. To clean out your colon, you may also be given: ? Laxative medicines. These help you have a bowel movement. ? Instructions for enema use. An enema is liquid medicine injected into your rectum. Medicines Ask your health care provider about: Changing or stopping your regular medicines or supplements. This is especially important if you aretaking iron supplements, diabetes medicines, or blood thinners. Taking medicines such as aspirin and ibuprofen. These medicines can thin your blood. Do not take these medicines unless your health care provider tells you to take them. Taking zout-pxj-hzikcpp medicines, vitamins, herbs, and supplements. General instructions Ask your health care provider what steps will be taken to help prevent infection. These may includewashing skin with a germ-killing soap. If you will be going home right after the procedure, plan to have a responsible adult: ? Take you home from the hospital or clinic. You will not be allowed to drive. ? Care for you for the time you are told. What happens during the procedure? An IV will be inserted into one of your veins. You will be given a medicine to make you fall asleep (general anesthetic). You will lie on your side with your knees bent. A lubricant will be put on the tube. Then the tube will be: ? Inserted into your anus. ? Gently eased through all parts of your large intestine. Air will be sent into your colon to keep it open. This may cause some pressure or cramping. Images will be taken with the camera and will appear on a screen. A small tissue sample may be removed to be looked at under a microscope (biopsy). The tissue may besent to a lab for testing if any signs of problems are found. If small polyps are found, they may be removed and checked for cancer cells. When the procedure is finished, the tube will be removed. The procedure may vary among health care providers and hospitals. What happens after the procedure? Your blood pressure, heart rate, breathing rate, and blood oxygen level will be monitored until youleave the hospital or clinic. You may have a small amount of blood in your stool. You may pass gas and have mild cramping or bloating in your abdomen. This is caused by the air thatwas used to open your colon during the exam. If you were given a sedative during the procedure, it can affect you for several hours. Do not drive or operate machinery until your health care provider says that it is safe. It is up to you to get the results of your procedure. Ask your health care provider, or the department that is doing the procedure, when your results will be ready. Summary A colonoscopy is a procedure to look at the entire large intestine. Follow instructions from your health care provider about eating and drinking before the procedure. If you were prescribed an oral bowel prep to clean out your colon, take it as told by your health care provider. During the colonoscopy, a flexible tube with a camera on its end is inserted into the anus and thenpassed into all parts of the large intestine. This information is not intended to replace advice given to you by your health care provider. Make sure you discuss any questions you have with your health care provider. Document Released: 2001-05-28 Document Updated: 2023-07-13 Document Reviewed: 2022-01-21 Else[employer]co Vasco Patient Education ? 2023 [employer] JACK MAN * Plan of Care - Kirstie Jain RN - 05/31/2024 8:02 AM CST Problem: Adult Inpatient Plan of Care Goal: Plan of Care Review Outcome: Ongoing (see interventions/notes) Flowsheets (Taken 05/31/2024 0802) Plan of Care Reviewed With: patient Progress: no change Outcome Evaluation: ready for or Does the patient need assistance with discharge and/or transitioning to the next level of care?: No, no needs anticipated Goal: Optimal Comfort and Wellbeing Outcome: Ongoing (see interventions/notes) Goal: Readiness for Transition of Care Outcome: Ongoing (see interventions/notes) JACK MAN * Interdisciplinary - Kelley Tripp RN - 05/30/2024 8:54 AM CST Images from the original note were not included. GI PRE-SURGICAL TESTING INSTRUCTIONS- PLEASE READ This is NOT your PREP INSTRUCTIONS, those come from your doctor who is performing your procedure. IF YOU EXPERIENCE SIGNS OR SYMPTOMS OF ILLNESS WITHIN 10 DAYS TO YOUR SCHEDULED PROCEDURE OR IF YOUCAN'T KEEP YOUR APPOINTMENT, PLEASE CALL YOUR PROCEDURAL DOCTOR'S OFFICE. DO NOT CALL PRE- SURGICALTESTING. Currently, your procedure is scheduled for 05/31/24 Your doctor has ordered [x] MONITORED SEDATION [] GENERAL It is not safe for you to drive yourself following your procedure. You must have an adult jinrikisha driver (18 yrs or older) arranged in advance of your procedure who can listen to your discharge instructions with you and can stay with your if needed for 24 hrs following your procedure, for your safety. If you are using public transportation, you must have an adult ( 18 yrs or older) to accompany you. FAILURE TO MAKE THESE ARRANGEMENTS IN ADVANCE MAY RESULT IN CANCELLATION OF YOUR PROCEDURE ON THE DAY OF. DO NOT: Smoke, vape or chew for 24 hours prior to the procedure Drink alcohol 24 hours prior to the procedure Bring any valuables or money with you Wear makeup or jewelry. Remove all body piercings Shave operative area. DO: Bathe or shower the night before or the day of your procedure Wear comfortable clothes, that are easy to change in and out of. Wear safe non-slip shoes Bring a list of current medications, dosages and any veql-utt-wpnymvj medication (such as herbs, oils, supplements) or medication bottles. Please enter through the EMERGENCY ENTRANCE DOORS walk until you reach registration. Registration may ask for your photo ID and insurance card. Registration will direct you to the elevator which willtake [facility] to [facility] located on 2nd floor. The nurses will be expecting you. The nurse will have you change into a gown, get into bed, and will prepare you for the procedure. Children 16 and under must be accompanied by a parent or legal guardian in the hospital at all times. Call PST if there are problems or questions Wednesday - Wednesday 0830-430pm at [phone] You will get a call from the Endoscopy Dept ([phone]) a week before your procedure to give you your arrival time Required Pre-surgical Testing: To be completed day of procedure in Endoscopy Dept: Check Blood Sugar and Urine Test MEDICATIONS to HOLD taking Prior to PROCEDURE: / days /____ days / days / ____days HOLD Herbal supplements, Iron, Multivitamins, Vitamin E, and Fish Oil Omegas for 5 days prior to the procedure. NOTHING TO EAT OR DRINK AFTER MIDNIGHT, OR ON THE MORNING OF YOUR PROCEDURE DATE! NO GUM, MINTS, WATER. FAILURE TO FOLLOW THESE INSTRUCTIONS MAY CAUSE YOUR PROCEDURE TO BE CANCELLED FOR YOUR SAFETY. Please TAKE the following medications with a SIP OF WATER on the morning of your procedure: 1. _Buspar 4. 2. 5. 3. 6. Please bring your rescue inhaler, if you have one. USE morning inhalers or nasal spray. Thank you for selecting [facility] ([facility]) or your procedure. We know you have a choice ofr your healthcare and we are pleased to prvide you with this service. Our Lester at [facility] is to: Serve with the Greatest Care and Love . We are not employees of [facility] we are [employer] driven to provide care based on our Lester, Vision and Values. Please do not hesitate to let us know if you have any questions or concerns. May God Bless you and we look forward to serving you. Your Perioperative Team. JACK MAN documented in this encounter Plan of Treatment Upcoming Encounters Date Type Department Care Team (Late st Contact Info) Description 08/08/2024 3:45 PM GRAB JACK MAN Office Visit [facility] - Endocrinology - [place] [address] [place] [phone] Salome Larsen MD [address] [address] documented as of this encounter Procedures Procedure Name Priority Date/Time Associated Diagnosis Comments POCT GLUCOSE Routine 05/31/2024 9:21 AM GRAB JACK MAN COLONOSCOPY 05/31/2024 8:41 AM GRAB JACK MAN EGD - NORMAL EXAM COLONOSCOPY - POOR PREPARATION , NEGATIVE EXAM Special Needs DM, PREG test - Dx Pancreatitis EGD 05/31/2024 8:41 AM GRAB JACK MAN EGD - NORMAL EXAM COLONOSCOPY - POOR PREPARATION , NEGATIVE EXAM Special Needs DM, PREG test - Dx Pancreatitis POCT GLUCOSE Routine 05/31/2024 8:28 AM GRAB JACK MAN POCT GLUCOSE Routine 05/31/2024 8:05 AM GRAB JACK MAN POCT URINE HCG () Routine 05/31/2024 7:50 AM GRAB JACK MAN GI LAB IMAGING - EGD Routine 05/31/2024 7:45 AM GRAB JACK MAN GI IMAGING - COLONOSCOPY Routine 05/31/2024 7:45 AM GRAB JACK MAN documented in this encounter Results * POCT Glucose (05/31/2024 9:21 AM GRAB JACK MAN) Only the most recent of3 resultswithin the time period is included. GLUCOSE,BEDSIDE POCT 84 70 - 99 mg/dL 05/31/2024 9:27 AM GRAB JACK MAN [facility] Blood 05/31/2024 9:21 AM GRAB JACK MAN 05/31/2024 9:27 AM GRAB JACK MAN us None Provider POINT OF CARE TESTING Final Resu lt [facility] [place] [address] * POCT Urine HCG () (05/31/2024 7:50 AM GRAB JACK MAN) POC URINE Negative POC URINE CONTROL Tube Station Attendant Pass Urine 05/31/2024 7:50 AM GRAB JACK MAN us Uriel Chavarria MD POINT OF CARE TESTING (MAURICIO BELLE) Final Result * GI LAB IMAGING - EGD (05/31/2024 7:45 AM GRAB JACK MAN) us Uriel Chavarria MD IMG DIAGNOSTIC ORDERABLES Final Result * GI IMAGING - COLONOSCOPY (05/31/2024 7:45 AM GRAB JACK MAN) us Uriel Chavarria MD IMG DIAGNOSTIC ORDERABLES Final Result documented in this encounter Visit Diagnoses Not on filedocumented in this encounter Administered Medications Inactive Administered Medications - up to 3 most recent administrations Medication Order MAR Action Action Date Dose Rate Site dextrose 50 % solution 12.5 g 12.5 g, Intravenous, ONCE, 1 dose, On Wed05/31/24 at 0830 Given 05/31/2024 8:30 AM GRAB JACK MAN 12.5 g lactated ringers infusion at 20 mL/hr, Intravenous, CONTINUOUS, Starting on Wed05/31/24 at 0830, Until Wed05/31/24 at 1129, PRE-OP (SURGERY) New Bag 05/31/2024 8:30 AM GRAB JACK MAN 20 mL/hr 20 mL/hr ondansetron (ZOFRAN) injection 4 mg 4 mg, Intravenous, ONCE PRN, 1 dose, Starting on Wed05/31/24 at 0745, Until Wed05/31/24 at 1218, Nausea - 1st line, PRE-OP (SURGERY) documented in this encounter Active and Recently Administered Medications Times are shown in GRAB JACK MAN. Scheduled Medication Order 05/29/2024 05/30/2024 05/31/2024 dextrose 50 % solution 12.5 g (COMPLETED) 12.5 g, Intravenous, ONCE, 1 dose, On Wed05/31/24 at 0830 0830 (Given - Provid er: Kirstie Jain RN) Continuous Medication Order 05/29/2024 05/30/2024 05/31/2024 lactated ringers infusion at 20 mL/hr, Intravenous, CONTINUOUS, Starting on Wed05/31/24 at 0830, Until Wed05/31/24 at 1129, PRE-OP (SURGERY) 0830 (New Bag - Prov ider: Kirstie Jain RN)0841 (Continued by Anesthesia - Provider: Raúl Hester APRN, JUMA)0908 (Anesthesia Volume Adjustment - Provider: Raúl Hester APRN, JUMA)0936 (Stopped - Provider: Xochitl Jeffers RN) PRN Medication Order 05/29/2024 05/30/2024 05/31/2024 ondansetron (ZOFRAN) injection 4 mg 4 mg, Intravenous, ONCE PRN, 1 dose, Starting on Wed05/31/24 at 0745, Until Wed05/31/24 at 1218, Nausea - 1st line, PRE-OP (SURGERY) documented in this encounter Care Teams Felting Machine Operator Relationship Specialty Start Date End Date Ari West PA [address] [place] [address] PCP - General Physician Dam Tender 07/21/23 Salome Larsen MD #[address] [phone] Consulting Physician Endocrinology 09/01/23 Wally Sandoval MD [address] [place] [address] Consulting Physician Gastroenterology 09/08/23 Nabeel Prado MD [address] [place] [address] Consulting Physician Neurology 03/07/24 documented as of this encounter
--- OUTSIDE RECORDS SUMMARY | 2024-07-02 03:51 | XMS_ITS | Encounter Summary ---
Author Organization [facility] Address [address] [place] [address] Phone Care Team Providers Care Oracle Wms Consultant Name Role Phone Ari West Primary Care Provider [phone] Salome Larsen MD Unavailable Wally Sandoval MD Unavailable [phone] Nabeel Prado MD Unavailable [phone] Reason for Visit * Reason Comments Medication Refill Encounter Details Date Type Department Care Team (Late st Contact Info) Description 04/29/2024 Refill [facility] End[facility]in[facility] [address] [place] [address] Salome Larsen MD #[address] [address] Medication Refill Social History Tobacco [...] on file Legal Sex Female 10:57 AM PUMPING SUPERVISOR Gender Identity Not on file Sexual Orientation Not on file documented as of this encounter Miscellaneous Notes * Telephone Encounter - Salome Larsen MD - 05/01/2024 4:52 PM CST Rx sent ING SUPERVISOR * Telephone Encounter - Carmen Nunez RN - 05/01/2024 9:45 AM PUMPING SUPERVISOR Requested Prescriptions Pending Prescriptions Disp Refills Insulin Lispro, 1 Unit Dial, 100 UNIT/ML Solution Pen-injector [Pharmacy Med Name: INSULIN LISPRO 100U/ML KWIKPEN 3ML] 15 mL 0 Sig: INJECT 10 UNITS UNDER SKIN BEFORE EACH MEAL; CORRECTIONAL FACTOR INSULIN 1:25 IF>150MG/DL. MAX OF 60 UNITS DAILY Message sent to schedule follow up. ING SUPERVISOR documented in this encounter Plan of Treatment Upcoming Encounters Date Type Department Care Team (Late st Contact Info) Description 08/08/2024 3:45 PM PUMPING SUPERVISOR Office Visit [facility] - Endocrinology [facility] [address] [place] [address] Salome Larsen MD #[address] [address] documented as of this encounter Visit Diagnoses Not on filedocumented in this encounter Care Teams Oracle Wms Consultant Relationship Specialty Start Date End Date Ari West PA [address] [place] [address] PCP - General Physician Ammunition Assembly I Laborer 07/21/23 Salome Larsen MD #[address] [address] Consulting Physician Endocrinology 09/01/23 Wally Sandoval MD [address] [place] [address] Consulting Physician Gastroenterology 09/08/23 Nabeel Prado MD [address] [place] [address] Consulting Physician Neurology 03/07/24 documented as of this encounter
--- OUTSIDE RECORDS SUMMARY | 2024-07-02 03:51 | XMS_ITS | Encounter Summary ---
Author Organization [facility] Address [address] [place] [address] Phone Care Team Providers Care Car Filler Name Role Phone Ari West Primary Care Provider [phone] Salome Larsen MD Unavailable Wally Sandoval MD Unavailable [phone] Nabeel Prado MD Unavailable [phone] Reason for Visit * Reason Onset Date Comments Procedure 06/21/2024 Encounter Details Date Type Department Care Team (Late st Contact Info) Description 06/21/2024 Telephone [facility] - [facility] - [place] [address] [place] [address] Uriel Chavarria MD [address] [address] Procedure Social History Tobacco Use Types Packs/Day Years [...] on file Legal Sex Female 10:[address] LIGHT INSPECTOR Gender Identity Not on file Sexual Orientation Not on file documented as of this encounter Miscellaneous Notes * Telephone Encounter - Carmen Choi RN - 06/21/2024 3:[address] LIGHT INSPECTOR Health maintenance and recall placed per [email or web address]. [employer] msg sent to patient. ET LIGHT INSPECTOR documented in this encounter Plan of Treatment Upcoming Encounters Date Type Department Care Team (Late st Contact Info) Description 08/08/2024 3:[address] LIGHT INSPECTOR Office Visit [facility] - Endocrinology - [place] [address] [place] [address] Salome Larsen MD #[address] [phone] documented as of this encounter Visit Diagnoses Not on filedocumented in this encounter Care Teams Car Filler Relationship Specialty Start Date End Date Ari West PA [address] [place] [address] PCP - General Physician Greenhouse Staff 07/21/23 Salome Larsen MD #[address] [address] Consulting Physician Endocrinology 09/01/23 Wally Sandoval MD [address] [place] [address] Consulting Physician Gastroenterology 09/08/23 Nabeel Prado MD [address] [place] [phone] Consulting Physician Neurology 03/07/24 documented as of this encounter
--- OUTSIDE RECORDS SUMMARY | 2024-07-02 03:51 | XMS_ITS | Encounter Summary ---
Author Organization [facility] Address [address] [place] [address] Phone Care Team Providers Care Unisaw Operator Name Role Phone Ari West Primary Care Provider [phone] Salome Larsen MD Unavailable Wally Sandoval MD Unavailable [phone] Nabeel Prado MD Unavailable [phone] Reason for Visit * Reason Comments Medication Refill Encounter Details Date Type Department Care Team (Late st Contact Info) Description 06/16/2024 Refill [facility] [address] [place] [address] Salome Larsen MD #[address] [address] Medication Refill Social History Tobacco [...] on file Legal Sex Female 10:57 AM DIGITAL PUBLISHING SPECIALIST Gender Identity Not on file Sexual Orientation Not on file documented as of this encounter Miscellaneous Notes * Telephone Encounter - Salome Larsen MD - 06/16/2024 1:28 PM CST Rx sent TAL PUBLISHING SPECIALIST * Telephone Encounter - Carmen Nunez RN - 06/16/2024 11:19 AM DIGITAL PUBLISHING SPECIALIST Requested Prescriptions Pending Prescriptions Disp Refills Continuous Glucose Sensor (Dexcom G7 Sensor) Misc [Pharmacy Med Name: DEXCOM G7 SENSOR MIS] 9 Each 0 Sig: CHANGE EVERY 10 DAYS Lantus SoloStar 100 UNIT/ML Solution Pen-injector [Pharmacy Med Name: Lantus SoloStar 100 UNIT/ML Subcutaneous Solution Pen-injector] 30 mL 0 Sig: INJECT 30 UNITS SUBCUTANEOUSLY NIGHTLY Next appt; Message sent to schedule follow up. TAL PUBLISHING SPECIALIST documented in this encounter Plan of Treatment Upcoming Encounters Date Type Department Care Team (Late st Contact Info) Description 08/08/2024 3:45 PM DIGITAL PUBLISHING SPECIALIST Office Visit [facility] - Endocrinology - [place] [address] [place] [address] Salome Larsen MD #[address] [address] documented as of this encounter Visit Diagnoses Not on filedocumented in this encounter Care Teams Unisaw Operator Relationship Specialty Start Date End Date Ari West PA [address] [place] [address] PCP - General Physician Research Geneticist 07/21/23 Salome Larsen MD #[address] [address] Consulting Physician Endocrinology 09/01/23 Wally Sandoval MD [address] [place] [address] Consulting Physician Gastroenterology 09/08/23 Nabeel Prado MD #[address] [place] [phone] Consulting Physician Neurology 03/07/24 documented as of this encounter
--- OUTSIDE RECORDS SUMMARY | 2024-07-02 03:51 | XMS_ITS | Encounter Summary ---
Author Organization [facility] Address [address] [place] [address] Phone Care Team Providers Care Diabetes Specialist Name Role Phone Ari West Primary Care Provider [phone] Salome Larsen MD Unavailable Wally Sandoval MD Unavailable [phone] Encounter Details Date Type Department Care Team (Late st Contact Info) Description 10/08/2023 Telephone [facility] - Obstetrics & Gynecology - [place] [address] [place] [address] Diane Mclean, SCREEN PRINTING PASTER, DREDGE WORKER [address] [place] [address] Social History Tobacco Use Types Packs/Day Years Used Date Smoking Tobacco: Every Day Cigarettes Smokeless Tobacco: Never Alcohol Use Standard Drinks/Week Comments Not Currently 0 (1 standard drink = 0.6 oz pur e alcohol) Sexually Active Control Partners Comments Yes Male Comments No Sex and Gender Information Value Date Recorded Sex Assigned at Not on file Legal Sex Female 10:57 AM WOUND/OSTOMY CLINICAL NURSE SPECIALIST Gender Identity Not on file Sexual Orientation Not on file documented as of this encounter Miscellaneous Notes * Telephone Encounter - Traci Abbasi - 10/08/2023 3:26 PM CDT Pt wanted to make an apt, I told her a referral is needed before we can schedule. documented in this encounter Plan of Treatment Upcoming Encounters Date Type Department Care Team (Late st Contact Info) Description 08/08/2024 3:45 PM WOUND/OSTOMY CLINICAL NURSE SPECIALIST Office Visit [facility] - Endocrinology - [place] [address] [place] [address] Salome Larsen MD #[address] [address] documented as of this encounter Visit Diagnoses Not on filedocumented in this encounter Care Teams Diabetes Specialist Relationship Specialty Start Date End Date Ari West PA [address] [place] [address] PCP - General Physician Hvac Tech 07/21/23 Salome Larsen MD #[address] [address] Consulting Physician Endocrinology 09/01/23 Wally Sandoval MD #[address] [place] [address] Consulting Physician Gastroenterology 09/08/23 documented as of this encounter
--- OUTSIDE RECORDS SUMMARY | 2024-07-02 03:51 | XMS_ITS | Encounter Summary ---
Author Organization [facility] Address [address] [place] [address] Phone Care Team Providers Care Machine Chain Maker Name Role Phone Ari West Primary Care Provider [phone] Salome Larsen MD Unavailable Wally Sandoval MD Unavailable [phone] Nabeel Prado MD Unavailable [phone] Reason for Visit * Auth/Cert (Routine) Specialty Diagnoses / Procedures Referred By Contac t Referred To Contact Diagnoses ALCOHOL INDUCED CHRONIC PANCREATITIS Procedures EGD COLONOSCOPY Uriel Chavarria MD [address] [place] [address] Phone: tel: fax: Referral ID Status Reason Start Date Expiration Date Visits Re quested Visits Authorized [id number] 1 1 Encounter Details Date Type Department Care Team (Late st Contact Info) Description 05/31/2024 8:30 AM PRODUCTION TROUBLESHOOTER - 05/31/2024 9:30 AM PRODUCTION TROUBLESHOOTER [facility] Lab Periop [address] [place] [id number] Uriel Chavarria MD [address] [address] EGD - NORMAL EGD Surgery Details Date/Time Status Location OR Service Patient Class Case Class Case Type Trauma Case? 05/31/2024 8:30 AM Posted [facility] GI 02 [facility] Elective/ Scheduled Panel 1 Procedure LRB Anes Op Region Wound Class Comments EGD - NORMAL EGD N/A Monitored Anest hesia Care COLONOSCOPY - POOR PREPARATION , NEGATIVE EXAM N/A Monitored Anesthesia Care Surgeon Surgeon Role Service Panel Uriel Chavarria MD Primary General 1 Special Needs DM, PREG test - Dx Pancreatitis documented in this encounter Social History Tobacco Use Types Packs/Day Years [...] on file Legal Sex Female 10:57 AM PRODUCTION TROUBLESHOOTER Gender Identity Not on file Sexual Orientation Not on file documented as of this encounter Last Filed Vital Signs Vital Sign Reading Time Taken Comments Blood Pressure 84/49 05/31/2024 9:16 AM PRODUCTION TROUBLESHOOTER Pulse 86 05/31/2024 9:16 AM PRODUCTION TROUBLESHOOTER Temperature 37 ??C (98.6 ??F) 05/31/2024 9:16 AM PRODUCTION TROUBLESHOOTER Respiratory Rate 16 05/31/2024 9:16 AM PRODUCTION TROUBLESHOOTER Oxygen Saturation 98% 05/31/2024 9:16 AM PRODUCTION TROUBLESHOOTER Inhaled Oxygen Concentration - - Weight 83.5 kg (184 lb) 05/30/2024 8:54 AM PRODUCTION TROUBLESHOOTER Height 157.5 cm (5' 2 ) 05/30/2024 8:54 AM PRODUCTION TROUBLESHOOTER Body Mass Index 33.65 05/30/2024 8:54 AM PRODUCTION TROUBLESHOOTER documented in this encounter Discharge Instructions * Discharge Instructions* Xochitl Jeffers, RN - 05/31/2024 8:49 AM PRODUCTION TROUBLESHOOTER YOU HAD AN EGD AND A COLONOSCOPY. [...] UNLESS INSTRUCTED OTHERWISE. Call doctor's office (GI [phone]) (Leonel [phone]) or go to Emergency room for: Difficulty Breathing, Headache Or Visual Disturbances Persistent Dizziness Or Light-Headedness Persistent Nausea and Vomiting Temperature greater then 100.0 Significant abdominal pain, chest pain, or bleeding. Here at [facility] we strive to provide excellent care [...] envelope is provided. Thank you for choosing [facility]. UCTION TROUBLESHOOTER UCTION TROUBLESHOOTER UCTION TROUBLESHOOTER documented in this encounter Medications at Time of Discharge ALBUTEROL SULFATE HFA IN take 90 mcg by inhalation as needed. amphetamine-dext roamphetamine (ADDERALL XR) 20 MG CAPSULE SR 24 HR Take 30 mg by mouth every morning. busPIRone (BUSPAR) 15 MG TabletIndication s:Anxiety Disorder Take 15 mg by mouth 3 times daily. Indications: Anxiety Disorder Continuous Blood Gluc Financial Adviser (Dexcom G7 Financial Adviser) Device Check blood sugar before each meal and at bedtime 1 Each 09/13/2023 DULoxetine (CYMBALTA) [address] Particles Take 60 mg by mouth daily. hydrOXYzine (VISTARIL) 25 MG Capsule Take 25 mg by mouth nightly. PRN Insulin Pen Needle (Pen [place]) 32G X 4 MM Misc 4 times a day 400 Each 3 09/13/2023 Insulin Syringe-Needle U-100 (TRUEplus Insulin Syringe) 30G X 5/16 0.5 ML Misc by Does not apply route. Pancrelipase, Bln-Wjuo-Uwiv, (CREON 65667) [id number] Capsule DR Particles Take 1 Capsule by [...] By: Uriel Chavarria MD, 05/31/2024, 8:35 AM PRODUCTION TROUBLESHOOTER UCTION TROUBLESHOOTER * Uriel Chavarria MD - 05/31/2024 8:02 [...] by inhalation as needed. Continuous Blood Gluc Financial Adviser (Dexcom G7 Financial Adviser) Device 05/30/2024 No Yes Sig: Check blood sugar before each meal and at bedtime Continuous Blood Gluc Sensor (Dexcom G7 Sensor) [facility] 05/30/2024 No Yes Sig: Every 10 days DULoxetine (CYMBALTA) [address] Chidi 05/30/2024 Yes Yes Sig: Take 60 mg by mouth daily. Insulin Lispro, 1 Unit Dial, 100 UNIT/ML Solution Pen-injector 05/30/2024 No Yes Sig: INJECT 10 UNITS UNDER SKIN BEFORE EACH MEAL; CORRECTIONAL FACTOR INSULIN 1:25 IF>150MG/DL. MAX OF 60 UNITS DAILY Insulin Pen Needle (Pen [place]) 32G X 4 MM [facility] 05/30/2024 No Yes Si times a day Insulin Syringe-Needle U-100 (TRUEplus Insulin Syringe) 30G X 5/16 0.5 ML [facility] 05/30/2024 Yes Yes Sig: by Does not apply route. Pancrelipase, Zvk-Fvel-Dyhw, (CREON [id number]) [id number] Capsule DR Particles 05/29/2024 Yes Yes Sig: [...] By: Uriel Chavarria MD; 05/31/2024, 8:02 AM PRODUCTION TROUBLESHOOTER Attending Physician: Uriel Chavarria MD Primary Care Physician: YOMI ERICKSON UCTION TROUBLESHOOTER documented in this encounter OR Notes * [...] Surgeon: Uriel Chavarria MD, 05/31/2024, 9:17 AM PRODUCTION TROUBLESHOOTER Disposition: PACU - hemodynamically stable. Condition: stable UCTION TROUBLESHOOTER * OR Surgeon - Uriel Chavarria MD [...] within one year with a two-day prep. UCTION TROUBLESHOOTER UCTION TROUBLESHOOTER documented in this encounter Miscellaneous Notes * Plan of Care - Xochitl Jeffers RN - 05/31/2024 9:36 AM CST Problem: Adult Inpatient Plan of Care Goal: Plan of Care Review Outcome: Outcome Achieved Goal: Optimal Comfort and Wellbeing Outcome: Outcome Achieved Goal: Readiness for Transition of Care Outcome: Outcome Achieved UCTION TROUBLESHOOTER * PatientPass Patient Instructions - Xochitl Jeffers RN - 05/31/2024 9:27 AM CST Images from the original note were not included. Patient Education Table of Contents Upper Endoscopy, Adult To view videos and all your education online visit, [email or web address] or scan this QR code with your [...] including vitamins, herbs, eye drops, creams, and ojwp-fjn-iwvscwq medicines. Any problems you or family members [...] provider tells you to take them. Taking miij-nqj-puyztsa medicines, vitamins, herbs, and supplements. General instructions [...] 2001-05-28 Document Updated: 2022-09-09 Document Reviewed: 2022-09-09 [employer] Patient Education ? 2023 [employer] UCTION TROUBLESHOOTER * PatientPass Patient Instructions - Xochitl Jeffers RN - 05/31/2024 9:26 AM CST Images from the original note were not included. Patient Education Table of Contents Colonoscopy, Adult To view videos and all your education online visit, [email or web address] or scan this QR code with your [...] including vitamins, herbs, eye drops, creams, and syxs-zju-avapbcy medicines. Any problems you or family members [...] provider tells you to take them. Taking fkrw-fct-fcuqmii medicines, vitamins, herbs, and supplements. General instructions [...] 2001-05-28 Document Updated: 2023-07-13 Document Reviewed: 2022-01-21 [employer] Patient Education ? 2023 [employer] UCTION TROUBLESHOOTER * Plan of Care - Kirstie Jain [...] Transition of Care Outcome: Ongoing (see interventions/notes) UCTION TROUBLESHOOTER * Interdisciplinary - Kelley Tripp RN - [...] your procedure. You must have an adult coach driver (18 yrs or older) arranged in [...] list of current medications, dosages and any kcbc-zjb-qdvxfdm medication (such as herbs, oils, supplements) or [...] or questions Wednesday - Wednesday 0830-430pm at [phone] You will get a call from the Endoscopy Dept ([phone]) a week before your procedure to give [...] or nasal spray. Thank you for selecting [facility] ([facility]) or your procedure. We know you have a choice ofr your healthcare and we are pleased to prvide you with this service. Our [employer] [facility] is to: Serve with the Greatest Care and Love . We are not employees of [facility] we are [employer] driven to provide care based on our [employer], Vision and Values. Please do not hesitate to let us know if you have any questions or concerns. May God Bless you and we look forward to serving you. Your Perioperative Team. UCTION TROUBLESHOOTER documented in this encounter Plan of Treatment Upcoming Encounters Date Type Department Care Team (Late st Contact Info) Description 08/08/2024 3:45 PM PRODUCTION TROUBLESHOOTER Office Visit [facility] Medical [facility] - Endocrinology - [place] [address] [place] [address] Salome Larsen MD [address] [address] documented as of this encounter Procedures Procedure Name Priority Date/Time Associated Diagnosis Comments POCT GLUCOSE Routine 05/31/2024 9:21 AM PRODUCTION TROUBLESHOOTER COLONOSCOPY 05/31/2024 8:41 AM PRODUCTION TROUBLESHOOTER EGD - NORMAL EXAM COLONOSCOPY - POOR PREPARATION , NEGATIVE EXAM Special Needs DM, PREG test - Dx Pancreatitis EGD 05/31/2024 8:41 AM PRODUCTION TROUBLESHOOTER EGD - NORMAL EXAM COLONOSCOPY - POOR PREPARATION , NEGATIVE EXAM Special Needs DM, PREG test - Dx Pancreatitis POCT GLUCOSE Routine 05/31/2024 8:28 AM PRODUCTION TROUBLESHOOTER POCT GLUCOSE Routine 05/31/2024 8:05 AM PRODUCTION TROUBLESHOOTER POCT URINE HCG () Routine 05/31/2024 7:50 AM PRODUCTION TROUBLESHOOTER GI LAB IMAGING - EGD Routine 05/31/2024 7:45 AM PRODUCTION TROUBLESHOOTER GI IMAGING - COLONOSCOPY Routine 05/31/2024 7:45 AM PRODUCTION TROUBLESHOOTER documented in this encounter Results * POCT Glucose (05/31/2024 9:21 AM PRODUCTION TROUBLESHOOTER) Only the most recent of3 resultswithin the time period is included. GLUCOSE,BEDSIDE POCT 84 70 - 99 mg/dL 05/31/2024 9:27 AM PRODUCTION TROUBLESHOOTER [facility] LAB Blood 05/31/2024 9:21 AM PRODUCTION TROUBLESHOOTER 05/31/2024 9:27 AM PRODUCTION TROUBLESHOOTER us None Provider POINT OF CARE TESTING Final Resu lt [facility] [address] [place] [address] * POCT Urine HCG () (05/31/2024 7:50 AM PRODUCTION TROUBLESHOOTER) POC URINE Negative POC URINE CONTROL Plastic Fabricator Pass Urine 05/31/2024 7:50 AM PRODUCTION TROUBLESHOOTER us Uriel Chavarria MD POINT OF CARE TESTING (MA NUAL) Final Result * GI LAB IMAGING - EGD (05/31/2024 7:45 AM PRODUCTION TROUBLESHOOTER) Uriel DALLAS DIAGNOSTIC ORDERABLES Final Result * GI IMAGING - COLONOSCOPY (05/31/2024 7:45 AM PRODUCTION TROUBLESHOOTER) Uriel [place]ALLAS DIAGNOSTIC ORDERABLES Final Result documented in this encounter Visit Diagnoses Not on filedocumented in this encounter Administered Medications Inactive Administered Medications - up to 3 most recent administrations Medication Order MAR Action Action Date Dose Rate Site dextrose 50 % solution 12.5 g 12.5 g, Intravenous, ONCE, 1 dose, On Wed05/31/24 at 0830 Given 05/31/2024 8:30 AM PRODUCTION TROUBLESHOOTER 12.5 g lactated ringers infusion at 20 mL/hr, Intravenous, CONTINUOUS, Starting on Wed05/31/24 at 0830, Until Wed05/31/24 at 1129, PRE-OP (SURGERY) New Bag 05/31/2024 8:30 AM PRODUCTION TROUBLESHOOTER 20 mL/hr 20 mL/hr ondansetron (ZOFRAN) injection 4 mg 4 mg, Intravenous, ONCE PRN, 1 dose, Starting on Wed05/31/24 at 0745, Until Wed05/31/24 at 1218, Nausea - 1st line, PRE-OP (SURGERY) documented in this encounter Active and Recently Administered Medications Times are shown in PRODUCTION TROUBLESHOOTER. Scheduled Medication Order 05/29/2024 05/30/2024 05/31/2024 dextrose [...] (SURGERY) documented in this encounter Care Teams Machine Chain Maker Relationship Specialty Start Date End Date Ari West PA [address] [place] [address] PCP - General Physician Social Studies Teacher 07/21/23 Salome Larsen MD [address] [address] Consulting Physician Endocrinology 09/01/23 Wally Sandoval MD [address]2 [place] [address] Consulting Physician Gastroenterology 09/08/23 Nabeel Prado MD [address] [place] [address] Consulting Physician Neurology 03/07/24 documented as of this encounter
--- OUTSIDE RECORDS SUMMARY | 2024-07-02 03:51 | XMS_ITS | Encounter Summary ---
Author Organization [facility] Address [address] [place] [address] Phone Care Team Providers Care Underwriting Manager Name Role Phone Ari West Primary Care Provider [phone] Salome Larsen MD Unavailable Wally Sandoval MD Unavailable [phone] Nabeel Prado MD Unavailable [phone] Reason for Visit * Reason Comments Medication Refill Encounter Details Date Type Department Care Team (Late st Contact Info) Description 06/13/2024 Refill [facility] - [facility] [address] [place] [address] Salome Larsen MD [address] [address] Medication Refill Social History Tobacco [...] on file Legal Sex Female 10:57 AM PARASITOLOGIST Gender Identity Not on file Sexual Orientation Not on file documented as of this encounter Miscellaneous Notes * Telephone Encounter - Salome Larsen MD - 06/15/2024 1:20 PM CST Rx sent SITOLOGIST * Telephone Encounter - Carmen Nunez RN - 06/15/2024 9:32 AM PARASITOLOGIST Requested Prescriptions Pending Prescriptions Disp Refills Insulin Lispro, 1 Unit Dial, 100 UNIT/ML Solution Pen-injector [Pharmacy Med Name: INSULIN LISPRO 100U/ML KWIKPEN 3ML] 30 mL 0 Sig: INJECT 10 UNITS UNDER SKIN BEFORE EACH MEAL. CORRECTIONAL FACTOR INSULIN 1:25 IF>150MG/DL. MAX 60 UNITS DAILY. Message sent to schedule follow up. SITOLOGIST documented in this encounter Plan of Treatment Upcoming Encounters Date Type Department Care Team (Late st Contact Info) Description 08/08/2024 3:45 PM PARASITOLOGIST Office Visit [facility] - Endocrinology [facility] [address] [place] [address] Salome Larsen MD [address] [address] documented as of this encounter Visit Diagnoses Not on filedocumented in this encounter Care Teams Underwriting Manager Relationship Specialty Start Date End Date Ari West PA [address] [place] [address] PCP - General Physician Bull Gang Supervisor 07/21/23 Salome Larsen MD #[address] [address] Consulting Physician Endocrinology 09/01/23 Wally Sandoval MD [address] [place] [address] Consulting Physician Gastroenterology 09/08/23 Nabeel Prado MD [address] [place] [address] Consulting Physician Neurology 03/07/24 documented as of this encounter
--- OUTSIDE RECORDS SUMMARY | 2024-07-02 03:51 | XMS_ITS | Encounter Summary ---
Author Organization [employer] Care Team Providers Care Seed Analysis Laboratory Assistant Name Role Phone Ari West Primary Care Provider [phone] Salome Larsen MD Unavailable Wally Sandoval MD Unavailable [phone] Encounter Details Date Type Department Care Team (Latest Contact Info) Description 09/24/2023 Travel Social History Tobacco Use Types Packs/Day Years Used Date Smoking Tobacco: Every Day Cigarettes Smokeless Tobacco: Never Alcohol Use Standard Drinks/Week Comments Not Currently 0 (1 standard drink = 0.6 oz pur e alcohol) Sexually Active Control Partners Comments Yes Male Comments No Sex and Gender Information Value Date Recorded Sex Assigned at Not on file Legal Sex Female 10:57 AM SCOUT Gender Identity Not on file Sexual Orientation Not on file documented as of this encounter Plan of Treatment Upcoming Encounters Date Type Department Care Team (Late st Contact Info) Description 08/08/2024 3:45 PM SCOUT Office Visit [facility] - [facility] - [place] [address] [place] [address] Salome Larsen MD [address] [address] documented as of this encounter Visit Diagnoses Not on filedocumented in this encounter Additional Health Concerns Infection Onset Date Last Indicated Resolved Time C. difficile Rule-Out 09/24/2023 09/24/20232023 12:16 AM CDT documented as of this encounter Care Teams Seed Analysis Laboratory Assistant Relationship Specialty Start Date End Date Ari West PA [facility] [place] [address] PCP - General Physician Analytics Director 07/21/23 Salome Larsen MD [address] [phone] Consulting Physician Endocrinology 09/01/23 Wally Sandoval MD [address] [place] [address] Consulting Physician Gastroenterology 09/08/23 documented as of this encounter
--- OUTSIDE RECORDS SUMMARY | 2024-07-02 03:51 | XMS_ITS | Encounter Summary ---
Author Organization [facility] Address [address] [place] [address] Phone Care Team Providers Care Controller Coal Or Ore Name Role Phone Ari West Primary Care Provider [phone] Salome Larsen MD Unavailable Wally Sandoval MD Unavailable [phone] Reason for Visit * Reason Onset Date Comments Procedure 11/11/2023 Encounter Details Date Type Department Care Team (Late st Contact Info) Description 11/11/2023 Telephone [facility] - [facility]ology - [place] [address] [place] [address] Rosemary Johnson APRN, AEROPLANE PILOT [address] [place], [place] [id number] Procedure Social History Tobacco Use Types Packs/Day Years Used Date Smoking Tobacco: Every Day Cigarettes Smokeless Tobacco: Never Alcohol Use Standard Drinks/Week Comments Not Currently 0 (1 standard drink = 0.6 oz pur e alcohol) Sexually Active Control Partners Comments Yes Male Comments No Sex and Gender Information Value Date Recorded Sex Assigned at Not on file Legal Sex Female 10:57 AM PARTY PLANNER Gender Identity Not on file Sexual Orientation Not on file documented as of this encounter Miscellaneous Notes * Telephone Encounter - Carmen Choi RN - 11/24/2023 2:06 PM CDT Appointment note for 12/08/2023 updated. * Telephone Encounter - Rosemary Johnson APRN, EDGAR - 11/12/2023 4:06 PM CDT EUS can be discussed at upcoming appointment * Telephone Encounter - Carmen Choi RN - 11/12/2023 2:13 PM CDT Please review chart and advise if EUS should be placed prior to office visit. * Telephone Encounter - Carmen Choi RN - 11/11/2023 2:11 PM CDT Images from the original note were not included. Patient scheduled for EGD and colonoscopy today 11/11/2023. Per Julissa ANDINO patient cancelled due to transportation. Will review with Sandy Johnson WOMEN'S MINISTRY DIRECTOR for further recommendations. mri Received: Yesterday Bran Parra MD [facility] Gastro Nurse [place]; Rosemary Johnson APRN, AEROPLANE PILOT; Ronda Strong, PAC CT scan is suggestive of chronic pancreatitis. Please refer this patient to Lynnette for EUS further recommendations. Carmen Choi RN 11/05/2023 2:24 PM CDT Patient is aware and verbalizes understanding. Patient scheduled for 12/08/2023. Bran Parra MD 11/03/2023 8:42 AM CDT Fluid collection is smaller than before on the recent MR exam Follow-up in the GI clinic in the next 4 weeks Consider referring for EUS at the next clinic visit documented in this encounter Plan of Treatment Upcoming Encounters Date Type Department Care Team (Late st Contact Info) Description 08/08/2024 3:45 PM PARTY PLANNER Office Visit [facility] - Endocrinology - [place] [address] [place] [address] Salome Larsen MD #[address] [address] documented as of this encounter Visit Diagnoses Not on filedocumented in this encounter Care Teams Controller Coal Or Ore Relationship Specialty Start Date End Date Ari West PA [address] [place] [address] PCP - General Physician Chief Knowledge Officer 07/21/23 Salome Larsen MD #[address] [address] Consulting Physician Endocrinology 09/01/23 Wally Sandoval MD [address] [place] [address] Consulting Physician Gastroenterology 09/08/23 documented as of this encounter
--- OUTSIDE RECORDS SUMMARY | 2024-07-02 03:51 | XMS_ITS | Encounter Summary ---
Author Organization [facility] Address [address] [place] [address] Phone Care Team Providers Care Pottery Kiln Builder Name Role Phone Ari West Primary Care Provider [phone] Salome Larsen MD Unavailable Wally Sandoval MD Unavailable [phone] Nabeel Prado MD Unavailable [phone] Reason for Visit * Auth/Cert (Routine) Specialty Diagnoses / Procedures Referred By Contac t Referred To Contact Diagnoses ALCOHOL INDUCED CHRONIC PANCREATITIS Procedures EGD COLONOSCOPY Uriel Chavarria MD 2 [address] [facility] [address] [address] Phone: tel: fax: Referral ID Status Reason Start Date Expiration Date Visits Re quested Visits Authorized [id number] 1 1 Encounter Details Date Type Department Care Team (Late st Contact Info) Description 05/31/2024 7:50 AM BATTERY PLATE REMOVER Ancillary Procedure [facility] Gi Lab Main [address] [place] [phone] Uriel Chavarria MD 2 [facility] [address] [address] Social History Tobacco Use Types Packs/Day Years [...] on file Legal Sex Female 10:57 AM BATTERY PLATE REMOVER Gender Identity Not on file Sexual Orientation Not on file documented as of this encounter Plan of Treatment Upcoming Encounters Date Type Department Care Team (Late st Contact Info) Description 08/08/2024 3:45 PM BATTERY PLATE REMOVER [facility] [address] [place] [address] Salome Larsen MD [address] [address] documented as of this encounter Procedures Procedure Name Priority Date/Time Associated Diagnosis Comments GI IMAGING - COLONOSCOPY Routine 05/31/2024 7:45 AM BATTERY PLATE REMOVER documented in this encounter Results * GI IMAGING - COLONOSCOPY (05/31/2024 7:45 AM BATTERY PLATE REMOVER) Uriel Chavarria MD IMG DIAGNOSTIC ORDERABLES Final Result documented in this encounter Visit Diagnoses Not on filedocumented in this encounter Care Teams Pottery Kiln Builder Relationship Specialty Start Date End Date Ari West PA [address] [place] [address] PCP - General Physician Property Administrator 07/21/23 Salome Larsen MD #[address] [address] Consulting Physician Endocrinology 09/01/23 Wally Sandoval MD #[address] [place] [address] Consulting Physician Gastroenterology 09/08/23 Nabeel Prado MD [address] [place] [address] Consulting Physician Neurology 03/07/24 documented as of this encounter
--- OUTSIDE RECORDS SUMMARY | 2024-07-02 03:51 | XMS_ITS | Encounter Summary ---
Author Organization true[x] [employer] Care Team Providers Care Cyberathlete Name Role Phone Ari West Primary Care Provider [phone] Salome Larsen MD Unavailable Wally Sandoval MD Unavailable [phone] Encounter Details Date Type Department Care Team (Latest Contact Info) Description 11/01/2023 Travel Social History Tobacco Use Types Packs/Day Years Used Date Smoking Tobacco: Every Day Cigarettes Smokeless Tobacco: Never Alcohol Use Standard Drinks/Week Comments Not Currently 0 (1 standard drink = 0.6 oz pur e alcohol) Sexually Active Control Partners Comments Yes Male Comments No Sex and Gender Information Value Date Recorded Sex Assigned at Not on file Legal Sex Female 10:57 AM CHIEF CLOTH FINISHING RANGE OPERATOR Gender Identity Not on file Sexual Orientation Not on file documented as of this encounter Plan of Treatment Upcoming Encounters Date Type Department Care Team (Late st Contact Info) Description 08/08/2024 3:45 PM CHIEF CLOTH FINISHING RANGE OPERATOR Office Visit [facility] - Endocrinology - [place] #2 [place] [address] Salome Larsen MD #[address] [address] documented as of this encounter Visit Diagnoses Not on filedocumented in this encounter Care Teams Cyberathlete Relationship Specialty Start Date End Date Ari West PA [address] [place] [phone] PCP - General Physician Donkey Engine Firer/Fireman 07/21/23 Salome Larsen MD #2 [facility] [phone] Consulting Physician Endocrinology 09/01/23 Wally Sandoval MD #2 [place] [address] Consulting Physician Gastroenterology 09/08/23 documented as of this encounter
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
--- OUTSIDE RECORDS SUMMARY | 2024-07-02 03:51 | XMS_ITS | Encounter Summary ---
Author Organization [facility] Address [address] [place] [address] Phone Care Team Providers Care Transit Mix Operator Name Role Phone Ari West Primary Care Provider [phone] Salome Larsen MD Unavailable Wally Sandoval MD Unavailable [phone] Nabeel Prado MD Unavailable [phone] Reason for Visit * Auth/Cert (Routine) Specialty Diagnoses / Procedures Referred By Contac t Referred To Contact Diagnoses ALCOHOL INDUCED CHRONIC PANCREATITIS Procedures EGD COLONOSCOPY Branch, Uriel Flaherty MD [address] [address] Phone: tel: fax: Referral ID Status Reason Start Date Expiration Date Visits Re quested Visits Authorized [id number] 1 1 Encounter Details Date Type Department Care Team (Late st Contact Info) Description 05/31/2024 8:41 AM SHEET METAL WORKER APPRENTICE Anesthesia Event [facility] Gi Lab Periop [address] [place] [phone] Raúl Hester APRN, CRNA #1 [place] [address] Anesthesia Record Procedure Summary Procedure Name Responsible Anesthesiologist Anesthesia Start Time Anesthesia Stop Time EGD - NORMAL EGD Raúl Hester APRN, CRNA 05/31/24 0841 05/31/24 0919 Events Date Time Event Comment 05/31/2024 0813 0841 An Start 0841 An Start Data 0841 ANASSESSCMPLT 0841 Start Supplemental O2 0841 Anesthesia Ready 09 Stop Supplemental O2 09 Stop Data Collection 912 Transort to Postop 918 Handoff to RN I completed my SBAR handoff to the receiving nurse. Last vitals BP: 125/70 Resp: 12 SpO2: 100 % 09 An Stop Last vitals: BP : 125/70 Resp: 12 SpO2: 100 % Meds Name Total propofol 10 mg/mL 1,500 mg lactated ringers infusion 400 mL * Agents Name Inspired CO2 (mmHg) ETCO2 (mmHg) * Blood No blood administrations on file. Lines, Drains, and Airways Type Details Placement Removal PIV-Single Lumen Placement Date: 05/31/24; Placement Time: 822; Catheter Size: 22 G; Orientation: Posterior, Right; Location: Hand; Removal Date: 05/31/24; Removal Time: 935; Removal Reason: Removed by patient 05/31/24822 by Kirstie Jain RN 05/31/24 09 by Xochitl Jeffers RN documented in this encounter Social History Tobacco [...] on file Legal Sex Female 10:57 AM SHEET METAL WORKER APPRENTICE Gender Identity Not on file Sexual Orientation Not on file documented as of this encounter OR Notes * Anesthesia Postprocedure Evaluation - Raúl Hester APRN, CRNA - 05/31/2024 9:27 AM CST Patient: Marisa Lott Procedure Summary Date: 05/31/24 Room / Location: [facility] GI LAB 02 / [facility] GI [facility] MAIN Anesthesia Start: 840 Anesthesia Stop: 918 Procedures: EGD - NORMAL EGD COLONOSCOPY - POOR PREPARATION , NEGATIVE EXAM Diagnosis: (EGD - NORMAL EXAM COLONOSCOPY - POOR PREPARATION , NEGATIVE EXAM) Surgeons: Uriel Chavarria MD Responsible Provider: Raúl Hester APRN, CRNA Anesthesia Type: MAC ASA Status: 3 Anesthesia Type: MAC Last vitals Vitals Value Taken Time BP 84/49 05/31/24915 Temp 37 ??C (98.6 ??F) 05/31/24915 Pulse 86 05/31/24 0916 Resp 16 05/31/24915 SpO2 98 % 05/31/24915 Pain score: 0 Pain management: adequate Patient location during evaluation: GI Lab Patient participation: Fully recovered to participate Level of consciousness: awake Cardiovascular status: acceptable Respiratory status: acceptable Hydration status: acceptable Comments: VS per RN flow sheet Anesthetic complications: no Airway patency: patent Nausea and Vomiting: none T METAL WORKER APPRENTICE * Anesthesia Preprocedure Evaluation - Raúl Hester APRN, CRNA - 05/31/2024 8:11 AM CST Anesthesia Evaluation Procedure Information Date/Time: 05/31/24829 Procedures: EGD COLONOSCOPY Location: [facility] GI LAB / [facility] MAIN Surgeons: Uriel Chavarria MD Patient summary reviewed and Nursing notes reviewed No history of anesthetic complications No family history of anesthesia reaction Allergies: No Known Allergies Patient allergies reviewed. Medications: Current Facility-Administered Medications: dextrose 50 % solution 12.5 g, 12.5 g, Intravenous, Once, Raúl Hester APRN, CRNA lactated ringers infusion, 20 mL/hr, Intravenous, Continuous, Uriel Chavarria MD ondansetron (ZOFRAN) injection 4 mg, 4 mg, Intravenous, Once PRN, Uriel Chavarria MD Medications Prior to Admission: ALBUTEROL SULFATE HFA IN, take 90 mcg by inhalation as needed., Disp: , Rfl: amphetamine-dextroamphetamine (ADDERALL XR) 20 MG CAPSULE SR 24 HR, Take 30 mg by mouth every morning., Disp: , Rfl: busPIRone (BUSPAR) 15 MG Tablet, Take 15 mg by mouth 3 times daily. Indications: Anxiety Disorder, Disp: , Rfl: Continuous Blood Gluc Field Clinical Engineer (Dexcom G7 Field Clinical Engineer) Device, Check blood sugar before each meal [...] Rfl: 1 Insulin Lispro, 1 Unit Dial, 100 UNIT/ML Solution Pen-injector, INJECT 10 UNITS UNDER SKIN BEFORE EACH MEAL; CORRECTIONAL FACTOR INSULIN 1:25 IF>150MG/DL. MAX OF 60 UNITS DAILY, Disp: 30 mL, Rfl: 0 Insulin Pen Needle (Pen [place]) 32G X 4 MM Misc, 4 times a day, Disp: 400 Each, Rfl: 3 Insulin Syringe-Needle U-100 (TRUEplus Insulin Syringe) 30G X 5/16 0.5 ML Misc, by Does not apply route., Disp: , Rfl: Pancrelipase, Pci-Wagv-Bmjy, (CREON 13595) [id number] Capsule DR Particles, Take 1 Capsule by mouth 3 times daily (with meals)., Disp: , Rfl: pregabalin (LYRICA) 200 MG Capsule, Take 200 mg by mouth 3 times daily. Indications: Neuropathic Pain, Disp: , Rfl: Patient medications reviewed. Airway Mallampati: II TM distance: >3 FB Neck ROM: full Dental - normal exam Pulmonary - normal exam Cardiovascular - negative ROS and normal exam Neuro/Psych (+) psychiatric history GI/Hepatic/Renal (+) bowel prep Endo/Other (+) type I DM Risks, benefits, alternatives discussed with:patient. Anesthesia Plan ASA 3 MAC Anesthetic plan and risks discussed with Patient. Plan discussed with PIPE WELDER. T METAL WORKER APPRENTICE documented in this encounter Plan of Treatment Upcoming Encounters Date Type Department Care Team (Late st Contact Info) Description 08/08/2024 3:45 PM SHEET METAL WORKER APPRENTICE Office Visit [facility] - Endocrinology - [place] [address] [place] [address] Salome Larsen MD #2 [facility] [address] [place] [address] documented as of this encounter Visit Diagnoses Not on filedocumented in this encounter Administered Medications Inactive Administered Medications - up to 3 most recent administrations Medication Order MAR Action Action Date Dose Rate Site propofol (DIPRIVAN) injection Intravenous, ONCE (in OR), Starting on Wed05/31/24 at 0843, Until Wed05/31/24 at 0919 Given 05/31/2024 9:08 AM SHEET METAL WORKER APPRENTICE 100 mg Given 05/31/2024 9:05 AM SHEET METAL WORKER APPRENTICE 200 mg Given 05/31/2024 9:02 AM SHEET METAL WORKER APPRENTICE 200 mg documented in this encounter Care Teams Transit Mix Operator Relationship Specialty Start Date End Date Ari West PA [address] [place] [address] PCP - General Physician Board Writer 07/21/23 Salome Larsen MD #[address] [address] Consulting Physician Endocrinology 09/01/23 Wally Sandoval MD #2 [place] [address] Consulting Physician Gastroenterology 09/08/23 Nabeel Prado MD #2 [place] [phone] Consulting Physician Neurology 03/07/24 documented as of this encounter
--- OUTSIDE RECORDS SUMMARY | 2024-07-02 03:51 | XMS_ITS | Encounter Summary ---
Author Organization [facility] Address [address] [place] [address] Phone Care Team Providers Care Advertising Specialist Name Role Phone Ari West Primary Care Provider [phone] Salome Larsen MD Unavailable Wally Sandoval MD Unavailable [phone] Reason for Referral * Radiology Services (Routine) - Closed Specialty Diagnoses / Procedures Referred By Contac t Referred To Contact Radiology Diagnoses Visit for screening mammogram Procedures MAGALIE SCREENING BILATERAL DIGITAL W CAD W Ari Gallardo PA [address] [place] [address] Phone: tel: fax: Referral ID Status Reason Start Date Expiration Date Visits Re quested Visits Authorized [id number] Closed 10/29/2023 1 1 * Radiology Services (Routine) - Closed Specialty Diagnoses / Procedures Referred By Contgeneva de dios Referred To Contact Radiology Diagnoses Visit for screening mammogram Procedures MAGALIE SCREENING BILATERAL DIGITAL W CAD W Ari Gallardo PA [address] [place] [address] Phone: tel: fax: Referral ID Status Reason Start Date Expiration Date Visits Re quested Visits Authorized [id number] Closed 10/29/2023 1 1 Reason for Visit * Radiology Services (Routine) - Closed Specialty Diagnoses / Procedures Referred By Contac t Referred To Contact Radiology Diagnoses Visit for screening mammogram Procedures MAGALIE SCREENING BILATERAL DIGITAL W CAD W Ari Gallardo PA [address] [place] [address] Phone: tel: fax: Referral ID Status Reason Start Date Expiration Date Visits Re quested Visits Authorized [id number] Closed 10/29/2023 1 1 Encounter Details Date Type Department Care Team (Late st Contact Info) Description 11/01/2023 3:07 PM CDT - 11/01/2023 11:59 PM CDT Hospital Encounter [facility] Mammography 1 [place] [address] Ari West PA [address] [place] [address] Discharge Disposition: Discharged to home or Selfcare [...] on file Legal Sex Female 10:57 AM EMBALMER ASSISTANT Gender Identity Not on file Sexual Orientation [...] daily. Indications: Anxiety Disorder Continuous Blood Gluc Switch Crew Supervisor (Dexcom G7 Switch Crew Supervisor) Device Check blood sugar before each meal and at bedtime 1 Each 09/13/2023 hydrOXYzine (VISTARIL) 25 MG Capsule Take 25 mg by mouth nightly. PRN Insulin Pen Needle (Pen [place]) 32G X 4 MM Misc 4 times a day 400 Each 3 09/13/2023 Insulin Syringe-Needle U-100 (TRUEplus Insulin Syringe) 30G X 5/16 0.5 ML Misc by Does not apply route. Pancrelipase, Tsp-Ibem-Bjsn, (CREON 28918) [id number] Capsule DR Particles Take 1 Capsule by mouth 3 times daily (with meals). pregabalin (LYRICA) 200 MG CapsuleIndicatio ns:Neuropathic Pain Take 200 mg by mouth 3 times daily. Indications: Neuropathic Pain amphetamine-dext roamphetamine (ADDERALL) 20 MG Tablet Take 1 tablet every day by oral route for 30 days. 4 Ascorbic Acid (VITAMIN C PO) Take by [...] mg by Buccal route as needed. 4 QUEtiapine (SEROquel) 100 MG Tablet Take 100 mg by mouth 2 times daily. 4 Thiamine HCl (VITAMIN B-1 PO) Take 100 mg by mouth. 4 documented as of this encounter Plan of Treatment Upcoming Encounters Date Type Department Care Team (Late st Contact Info) Description 08/08/2024 3:45 PM EMBALMER ASSISTANT Office Visit [facility] - [facility] - [place] [address] [place] [address] Salome Larsen MD #[address] [phone] documented as of this encounter Procedures Procedure Name Priority Date/Time Associated Diagnosis Comments MAGALIE SCREENING BILATERAL DIGITAL W CAD W CATHY Routine 11/01/2023 3:42 PM CDT Visit for screening mammogram documented in this encounter Results * MAGALIE SCREENING BILATERAL DIGITAL W CAD [...] Ray Owens M.D. ? ll/penrad:11/01/2023 16:47:35 ?? Operating Room Registered Nurse(s): Lisa ??JACKY Johnson)(M), [facility] letter sent: Normal Exam ?? Reading location: [facility] BI-RADS: 1 Negative Procedure Note Ray Owens [...] exam. Electronically signed by: Ray Owens M.D. ll/penrad:11/01/2023 16:47:35 Operating Room Registered Nurse(s): RT Precious(R)(M), [facility] letter sent: Normal Exam Reading location: [place] BI-RADS: 1 Negative Ari CELAYA IMG MAMMO ORDERABLES Final Result documented in this encounter Visit Diagnoses Diagnosis Visit for screening mammogram Other screening mammogram documented in this encounter Care Teams Advertising Specialist Relationship Specialty Start Date End Date Ari West PA [address] [place] [address] PCP - General Physician Medical Lab Tech Instructor 07/21/23 Salome Larsen MD #[address] [address] Consulting Physician Endocrinology 09/01/23 Wally Sandoval MD #2 [place] [address] Consulting Physician Gastroenterology 09/08/23 documented as of this encounter
--- OUTSIDE RECORDS SUMMARY | 2024-07-02 03:51 | XMS_ITS | Encounter Summary ---
Author Organization [facility] Address [address] [place] [address] Phone Care Team Providers Care Lay Up Operator Name Role Phone Ari West Primary Care Provider [phone] Salome Larsen MD Unavailable Wally Sandoval MD Unavailable [phone] Reason for Referral * Radiology Services (Routine) - Closed Specialty Diagnoses / Procedures Referred By Contac t Referred To Contact Radiology Diagnoses Pancreatic pseudocyst Procedures MRCP WO CONTRAST MRI CHOLANGIOPANCREATOGRAPHY Bran Parra MD #[address] [place] [address] Phone: tel: fax: Referral ID Status Reason Start Date Expiration Date Visits Re quested Visits Authorized [id number] Closed 10/18/2023 1 1 Reason for Visit * Reason Onset Date Comments Results 10/07/2023 Encounter Details Date Type Department Care Team (Late st Contact Info) Description 10/07/2023 Telephone [facility] #2 [place] [address] Bran Parra MD [address] [place] [address] Results Social History Tobacco Use Types Packs/Day Years Used Date Smoking Tobacco: Every Day Cigarettes Smokeless Tobacco: Never Alcohol Use Standard Drinks/Week Comments Not Currently 0 (1 standard drink = 0.6 oz pur e alcohol) Sexually Active Control Partners Comments Yes Male Comments No Sex and Gender Information Value Date Recorded Sex Assigned at Not on file Legal Sex Female 10:57 AM 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 Educated patients about test. [facility] phone number given to patient. * Addendum Note - Mary Ann Choi RN - 10/18/2023 10:40 AM CDTAddended by: MARY ANN CHOI on: 10/18/2023 10:40 AM Modules accepted: Orders * Telephone Encounter - Mary Ann Choi RN - 10/18/2023 10:39 AM CDT Patient is aware and verbalizes understanding. MRCP order placed. * Addendum Note - Mary Ann Choi RN - 10/14/2023 9:56 AM CDTAddended by: MARY ANN CHOI on: 10/14/2023 09:56 AM Modules accepted: Orders * Telephone Encounter - Mary Ann Choi RN - 10/14/2023 9:56 AM CDT Left message to call back. MRCP order pended, please review MRCP screening questions. * Telephone Encounter - Mary Ann Choi RN - 10/14/2023 9:[address] scan shows suspicion of a small pseudocyst and calcific pancreatitis. Obtain MRCP and consider EUS depending on the MRCP results. * Telephone Encounter - Bran Parra MD - 10/12/2023 8:[address] scan shows suspicion of a small pseudocyst and calcific pancreatitis. Obtain MRCP and consider EUS depending on the MRCP results. * Telephone Encounter - Mary Ann Choi RN - 10/07/2023 11:58 AM CDT Please review patient's CT abdomen and pelvis with contrast completed on 09/17/2023 and advise. documented in this encounter Plan of Treatment Upcoming Encounters Date Type Department Care Team (Late st Contact Info) Description 08/08/2024 3:45 PM CONTINUOUS MINER OPERATOR HELPER Office Visit [facility] - Endocrin[facility] #[address] [place] [address] Salome Larsen MD #[address] [address] documented as of this encounter Results * MRCP WO CONTRAST MRI CHOLANGIOPANCREATOGRAPHY (11/01/2023 2:25 PM CDT) Anatomical Region Laterality Modality Abdomen N/A Magnetic Resonan ce 11/01/2023 3:18 PM CDT Impressions 11/01/2023 3:20 PM CDT IMPRESSION: No intrahepatic or extrahepatic biliary ductal dilatation. No evidence of choledocholithiasis. Sequelae of chronic pancreatitis. Previously visualized fluid collection along the lesser curvature of the stomach is less apparent on today's examination and measures a maximum of 1.7 x 1 cm. Narrative 11/01/2023 3:20 PM CDT EXAM DESCRIPTION: ?? MRCP WO CONTRAST MRI CHOLANGIOPANCREATOGRAPHY REASON FOR STUDY: ?? F/u CT A/P 09/17/23 notes Evidence of chronic pancreatitis with atrophic calcified pancreas. Fluid collection along the lesser curvature of the stomach may be related to previous pancreatic inflammatory change such as a pseudocyst although incompletely characterized. ?? TECHNIQUE: MRI of the abdomen performed ?? without ??intravenous contrast according to the MRCP protocol. ??3D images rendered on scanning unit and reviewed at time of interpretation. ?? All images stored on PACS. COMPARISON: ?? CT abdomen pelvis dated September 17, 2023 FINDINGS: ABDOMEN: LOWER CHEST: ?? No effusion. LIVER: ?? Normal size. ??No identified cystic or solid masses. No cysts. GALLBLADDER: ??No stones, wall thickening or pericholecystic fluid BILE DUCTS: ?? No intrahepatic or extrahepatic ductal dilatation. ?? Common bile duct measures ?? mm . SPLEEN: ?? Normal size. ??No focal lesions. PANCREAS: There is a sequelae of chronic pancreatitis. ??The pancreatic duct has a diffusely beaded configuration. ??Known pancreatic calcifications are better seen on the recently performed CT scan. ??Previously visualized fluid collection along the lesser curvature of the stomach is less apparent on today's examination and measures a maximum of 1.7 x 1 cm (series 4, image 31). ?? ADRENALS: ?? Normal. KIDNEYS/URINARY TRACT: ?? No identified significant cystic or solid masses. No cysts. No hydronephrosis. ?? GI: ?? No visualized abnormality. ?? PERITONEUM: ?? No ascites. RETROPERITONEUM: ?? No mass or adenopathy. VASCULATURE: ?? No abdominal aortic aneurysm. MUSCULOSKELETAL: ?? No acute findings. OTHER: ?? No other abnormality. THIS IS AN ELECTRONICALLY VERIFIED FINAL REPORT 11/01/2023 3:18 PM - Electronically signed by ??Steve CLARKE: VINCE D: ??11/01/2023 3:18 PM T: ??11/01/2023 3:18 PM Report ID: [id number] Reading Location: ??[id number] Procedure Note Steve Scott MD - 11/01/2023 EXAM DESCRIPTION: MRCP WO CONTRAST MRI CHOLANGIOPANCREATOGRAPHY REASON FOR STUDY: F/u CT A/P 09/17/23 notes Evidence of chronic pancreatitis with atrophic calcified pancreas. Fluid collection along the lesser curvature of the stomach may be related to previous pancreatic inflammatory change such as a pseudocyst although incompletely characterized. TECHNIQUE: MRI of the abdomen performed without intravenous contrast according to the MRCP protocol. 3D images rendered on scanning unit and reviewed at time of interpretation. All images stored on PACS. COMPARISON: CT abdomen pelvis dated September 17, 2023 FINDINGS: ABDOMEN: LOWER CHEST: No effusion. LIVER: Normal size. No identified cystic or solid masses. No cysts. GALLBLADDER: No stones, wall thickening or pericholecystic fluid BILE DUCTS: No intrahepatic or extrahepatic ductal dilatation. Common bile duct measures mm . SPLEEN: Normal size. No focal lesions. PANCREAS: There is a sequelae of chronic pancreatitis. The pancreatic duct has a diffusely beaded configuration. Known pancreatic calcifications are better seen on the recently performed CT scan. Previously visualized fluid collection along the lesser curvature of the stomach is less apparent on today's examination and measures a maximum of 1.7 x 1 cm (series 4, image 31). ADRENALS: Normal. KIDNEYS/URINARY TRACT: No identified significant cystic or solid masses. No cysts. No hydronephrosis. GI: No visualized abnormality. PERITONEUM: No ascites. RETROPERITONEUM: No mass or adenopathy. VASCULATURE: No abdominal aortic aneurysm. MUSCULOSKELETAL: No acute findings. OTHER: No other abnormality. THIS IS AN ELECTRONICALLY VERIFIED FINAL REPORT 11/01/2023 3:18 PM - Electronically signed by Steve CLARKE: VNICE Report ID: [id number] Reading Location: [id number] IMPRESSION: No intrahepatic or extrahepatic biliary ductal dilatation. No evidence of choledocholithiasis. Sequelae of chronic pancreatitis. Previously visualized fluid collection along the lesser curvature of the stomach is less apparent on today's examination and measures a maximum of 1.7 x 1 cm. Bran Parra MD IMG MR ORDERABLES Final Result documented in this encounter Visit Diagnoses Diagnosis Pancreatic pseudocyst- Primary Cyst and pseudocyst of pancreas Pancreatic pseudocyst Cyst and pseudocyst of pancreas documented in this encounter Care Teams Lay Up Operator Relationship Specialty [place] [address] [place] [address] PCP - General Physician Community Outreach Director 07/21/23 Salome Larsen MD #[address] [address] Consulting Physician Endocrinology 09/01/23 Wally Sandoval MD #2 [place] [address] Consulting Physician Gastroenterology 09/08/23 documented as of this encounter
--- OUTSIDE RECORDS SUMMARY | 2024-07-02 03:51 | XMS_ITS | Encounter Summary ---
Author Organization [facility] Address [address] [place] [address] Phone Care Team Providers Care Admission Specialist Name Role Phone Ari West Primary Care Provider [phone] Salome Larsen MD Unavailable Wally Sandoval MD Unavailable [phone] Nabeel Prado MD Unavailable [phone] Reason for Visit * Auth/Cert (Routine) Specialty Diagnoses / Procedures Referred By Contac t Referred To Contact Diagnoses ALCOHOL INDUCED CHRONIC PANCREATITIS Procedures EGD COLONOSCOPY Uriel Chavarria MD [address] [facility] [address] [address] Phone: tel: fax: Referral ID Status Reason Start Date Expiration Date Visits Re quested Visits Authorized [id number] 1 1 Encounter Details Date Type Department Care Team (Late st Contact Info) Description 05/31/2024 7:55 AM FREELANCE MAKEUP ARTIST Ancillary Procedure [facility] Gi Lab Main 1 [place] [phone] Uriel Chavarria MD 2 [facility] [address] [address] Social History Tobacco Use Types Packs/Day Years [...] on file Legal Sex Female 10:57 AM FREELANCE MAKEUP ARTIST Gender Identity Not on file Sexual Orientation Not on file documented as of this encounter Plan of Treatment Upcoming Encounters Date Type Department Care Team (Late st Contact Info) Description 08/08/2024 3:45 PM FREELANCE MAKEUP ARTIST Office Visit [facility] - [facility] - [place] #2 [place] [address] Salome Larsen MD #[address] [phone] documented as of this encounter Procedures Procedure Name Priority Date/Time Associated Diagnosis Comments GI LAB IMAGING - EGD Routine 05/31/2024 7:45 AM FREELANCE MAKEUP ARTIST documented in this encounter Results * GI LAB IMAGING - EGD (05/31/2024 7:45 AM FREELANCE MAKEUP ARTIST) Uriel Chavarria MD IMG DIAGNOSTIC ORDERABLES Final Result documented in this encounter Visit Diagnoses Not on filedocumented in this encounter Care Teams Admission Specialist Relationship Specialty Start Date End Date Ari West PA [address] [place] [address] PCP - General Physician Secure Software Assessor 07/21/23 Salome Larsen MD #[address] [address] Consulting Physician Endocrinology 09/01/23 Wally Sandoval MD #2 [place] [address] Consulting Physician Gastroenterology 09/08/23 Nabeel Prado MD #[address] [place] [address] Consulting Physician Neurology 03/07/24 documented as of this encounter
--- OUTSIDE RECORDS SUMMARY | 2024-07-02 03:51 | XMS_ITS | Encounter Summary ---
Author Organization [employer] Care Team Providers Care Pipe Connector Name Role Phone Ari West Primary Care Provider [phone] Salome Larsen MD Unavailable Wally Sandoval MD Unavailable [phone] Encounter Details Date Type Department Care Team (Latest Contact Info) Description 03/06/2024 Travel Social History Tobacco Use Types Packs/Day [...] on file Legal Sex Female 10:57 AM HAND TAPPER Gender Identity Not on file Sexual Orientation Not on file documented as of this encounter Plan of Treatment Upcoming Encounters Date Type Department Care Team (Late st Contact Info) Description 08/08/2024 3:45 PM HAND TAPPER Office Visit [facility] - [place] #2 [place] [address] Salome Larsen MD #[address] [address] documented as of this encounter Visit Diagnoses Not on filedocumented in this encounter Care Teams Pipe Connector Relationship Specialty Start Date End Date Ari West PA [address] [place] [address] PCP - General Physician Personal Financial Counselor 07/21/23 Salome Larsen MD #[address] [address] Consulting Physician Endocrinology 09/01/23 Wally Sandoval MD #2 [place] [address] Consulting Physician Gastroenterology 09/08/23 documented as of this encounter
--- OUTSIDE RECORDS SUMMARY | 2024-07-02 03:51 | XMS_ITS | Encounter Summary ---
Author Organization [facility] Address [address] [place] [address] Phone Care Team Providers Care Children'S Court Magistrate Name Role Phone Ari West Primary Care Provider [phone] Salome Larsen MD Unavailable Wally Sandoval MD Unavailable [phone] Reason for Referral * Radiology Services (Routine) - Closed Specialty Diagnoses / Procedures Referred By Contac t Referred To Contact Radiology Diagnoses Pancreatic pseudocyst Procedures MRCP WO CONTRAST MRI CHOLANGIOPANCREATOGRAPHY Bran Parra MD #2 [place] [address] Phone: tel: fax: Referral ID Status Reason Start Date Expiration Date Visits Re quested Visits Authorized [id number] Closed 10/18/2023 1 1 Reason for Visit * Radiology Services (Routine) - Closed Specialty Diagnoses / Procedures Referred By Contgeneva de dios Referred To Contact Radiology Diagnoses Pancreatic pseudocyst Procedures MRCP WO CONTRAST MRI CHOLANGIOPANCREATOGRAPHY Bran Parra MD #2 [place] [address] Phone: tel: fax: Referral ID Status Reason Start Date Expiration Date Visits Re quested Visits Authorized [id number] Closed 10/18/2023 1 1 Encounter Details Date Type Department Care Team (Latest Contact Info) Description 11/01/2023 1:14 PM CDT - 11/01/2023 3:06 PM CDT Hospital Encounter [facility] MRI 1 [place] [address] Bran Parra MD [address] [place] [address] Discharge Disposition: Discharged to home or Selfcare [...] on file 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 Indications: Anxiety Disorder Continuous Blood Gluc Clinical Data Specialist (Dexcom G7 Clinical Data Specialist) Device Check blood sugar before each meal and at bedtime 1 Each 09/13/2023 hydrOXYzine (VISTARIL) 25 MG Capsule Take 25 mg by mouth nightly. PRN Insulin Pen Needle (Pen [place]) 32G X 4 MM Misc 4 times a day 400 Each 3 09/13/2023 Insulin Syringe-Needle U-100 (TRUEplus Insulin Syringe) 30G X 5/16 0.5 ML Misc by Does not apply route. Pancrelipase, Hfz-Arch-Lhjz, (CREON 59019) [id number] Capsule DR Particles Take 1 Capsule by [...] st Contact Info) Description 08/08/2024 3:45 PM SPINNING MACHINE OPERATOR Office Visit [facility] - Endocrinology - [place] [address] [place] [phone] Saloem Larsen MD #[address] [phone] documented as of this encounter Procedures Procedure Name Priority Date/Time Associated Diagnosis Comments MRCP WO CONTRAST MRI CHOLANGIOPANCREATOGRAPHY Routine 11/01/2023 2:25 PM CDT Pancreatic pseudocyst documented in this encounter Results * MRCP WO CONTRAST [...] 3:18 PM - Electronically signed by ??Steve Scott M.D. JA: VINCE D: ??11/01/2023 3:18 PM T: ??11/01/2023 3:18 PM Report ID: [id number] Reading Location: ??[id number] Procedure Note Steve Scott MD - 11/01/2023 [...] 3:18 PM - Electronically signed by Steve Scott M.D. JA: VINCE Report ID: [id number] Reading Location: [place] [address] IMPRESSION: No intrahepatic or extrahepatic biliary ductal dilatation. No evidence of choledocholithiasis. Sequelae of chronic pancreatitis. Previously visualized fluid collection along the lesser curvature of the stomach is less apparent on today's examination and measures a maximum of 1.7 x 1 cm. Bran Parra MD IMG MR ORDERABLES Final Result documented in this encounter Visit Diagnoses Diagnosis Pancreatic pseudocyst Cyst and pseudocyst of pancreas documented in this encounter Care Teams Children'S Court Magistrate Relationship Specialty Start Date End Date Ari West PA [address] [place] [address] PCP - General Physician Forensic Technician 07/21/23 Salome Larsen MD #[address] [address] Consulting Physician Endocrinology 09/01/23 Wally Sandoval MD #2 [place] [address] Consulting Physician Gastroenterology 09/08/23 documented as of this encounter
--- OUTSIDE RECORDS SUMMARY | 2024-07-02 03:52 | XMS_ITS | Encounter Summary ---
Author Organization [employer] Care Team Providers Care Portable Canteen Operator Name Role Phone Ari West Primary Care Provider [phone] Salome Larsen MD Unavailable Wally Sandoval MD Unavailable [phone] Encounter Details Date Type Department Care Team (Latest Contact Info) Description 09/15/2023 Travel Social History Tobacco Use Types Packs/Day Years Used Date Smoking Tobacco: Every Day Cigarettes Smokeless Tobacco: Never Alcohol Use Standard Drinks/Week Comments Not Currently 0 (1 standard drink = 0.6 oz pur e alcohol) Sexually Active Control Partners Comments Yes Male Comments No Sex and Gender Information Value Date Recorded Sex Assigned at Not on file Legal Sex Female 10:57 AM LARGE ANIMAL VETERINARIAN Gender Identity Not on file Sexual Orientation Not on file documented as of this encounter Plan of Treatment Upcoming Encounters Date Type Department Care Team (Late st Contact Info) Description 08/08/2024 3:45 PM LARGE ANIMAL VETERINARIAN Office Visit [facility] - [place] [address]2 [place] [address] Salome Larsen MD #[address] [address] documented as of this encounter Visit Diagnoses Not on filedocumented in this encounter Care Teams Portable Canteen Operator Relationship Specialty Start Date End Date Ari West PA [address] [place] [address] PCP - General Physician Engineering Consultant 07/21/23 Salome Larsen MD [facility] [facility] [phone] Consulting Physician Endocrinology 09/01/23 Wally Sandoval MD #2 [place] [address] Consulting Physician Gastroenterology 09/08/23 documented as of this encounter
--- OUTSIDE RECORDS SUMMARY | 2024-07-02 03:52 | XMS_ITS | Encounter Summary ---
Author Organization [facility] Address [address] [place] [address] Phone Care Team Providers Care Storage Battery Inspector And Tester Name Role Phone Ari West Primary Care Provider [phone] Salome Larsen MD Unavailable Wally Sandoval MD Unavailable [phone] Reason for Referral * Radiology Services (Routine) - Closed Specialty Diagnoses / Procedures Referred By Contac t Referred To Contact Radiology Diagnoses Alcohol-induced chronic pancreatitis (HCC) Pancreatic pseudocyst Splenic vein thrombosis Procedures CT ABDOMEN PELVIS W/ CONTRAST Wally Sandoval MD #2 [place] [address] Phone: tel: fax: Referral ID Status Reason Start Date Expiration Date Visits Re quested Visits Authorized [id number] Closed 09/07/2023 1 1 Reason for Visit * Radiology Services (Routine) - Closed Specialty Diagnoses / Procedures Referred By Contac t Referred To Contact Radiology Diagnoses Alcohol-induced chronic pancreatitis (HCC) Pancreatic pseudocyst Splenic vein thrombosis Procedures CT ABDOMEN PELVIS W/ CONTRAST Wally Sandoval MD #2 [place] [address] Phone: tel: fax: Referral ID Status Reason Start Date Expiration Date Visits Re quested Visits Authorized [id number] Closed 09/07/2023 1 1 Encounter Details Date Type Department Care Team (Latest Contact Info) Description 09/17/2023 10:32 AM CDT - 09/17/2023 11:59 PM CDT Hospital En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 Indications: Anxiety Disorder Continuous Blood Gluc Supervisor Beet End (Dexcom G7 Supervisor Beet End) Device Check blood sugar before each meal and at bedtime 1 Each 09/13/2023 hydrOXYzine (VISTARIL) 25 MG Capsule Take 25 mg by mouth nightly. PRN Insulin Pen Needle (Pen [place]) 32G X 4 MM Misc 4 times a day 400 Each 3 09/13/2023 Insulin Syringe-Needle U-100 (TRUEplus Insulin Syringe) 30G X 5/16 0.5 ML Misc by Does not apply route. pregabalin (LYRICA) 200 MG CapsuleIndicatio ns:Neuropathic Pain Take 200 mg by mouth 3 times daily. Indications: Neuropathic Pain Ascorbic Acid (VITAMIN C PO) Take by mouth daily. atorvastatin (LIPITOR) 10 MG Tablet Take 10 [...] by Buccal route as needed. 4 Pancrelipase, Tvb-Lgbn-Ezgj, (Creon) [id number] Capsule DR Particles Take 2 Capsules by [...] st Contact Info) Description 08/08/2024 3:45 PM CHEESEMAKER HELPER Office Visit [facility] - Endocrinology - [place] [address] [place] [phone] Salome Larsen MD #[address] [phone] documented as of this encounter Procedures Procedure Name Priority Date/Time Associated Diagnosis Comments CT ABDOMEN PELVIS W/ CONTRAST Routine 09/17/2023 11:29 AM CDT Alcohol-induced chronic pancreatitis (HCC) Pancreatic pseudocyst Splenic vein thrombosis documented in this encounter Results * CT ABDOMEN PELVIS W/ CONTRAST (09/17/2023 11:29 AM CDT) Anatomical Region Laterality Modality Abdomen N/A Computed Tomogra phy 09/18/2023 8:50 AM CDT Impressions 09/18/2023 8:53 AM CDT IMPRESSION: No evidence of an acute abnormality of the abdomen and pelvis. Evidence of chronic pancreatitis with atrophic calcified pancreas. Fluid collection along the lesser curvature of the stomach may be related to previous pancreatic inflammatory change such as a pseudocyst although incompletely characterized. ??Gastric wall thickening is noted. ??Routine endoscopy recommended. Hepatomegaly. Multiple varicosities in the upper abdomen. Narrative 09/18/2023 8:53 AM CDT EXAM DESCRIPTION: ?? CT ABDOMEN PELVIS W/ CONTRAST REASON FOR STUDY: Diarrhea and history of pancreatitis. TECHNIQUE: CT scan of the abdomen and pelvis performed with intravenous and ??without ??oral contrast using helical scanning technique with dynamic intravenous contrast injection. Reconstructed coronal and sagittal MPR images reviewed. All images stored on PACS. Automated exposure control was used as a dose optimization technique for this examination. CONTRAST TYPE/DOSE: ?? 84mL of IOPAMIDOL 76 % IV SOLN ??injected via ?? Intravenous COMPARISON: ?? None. FINDINGS: LOWER CHEST: ?? Lung bases are predominantly clear. ??There is no pleural effusion. LIVER: ?? Normal enhancement of the liver with no focal hepatic lesions. ??The liver is enlarged at 20 cm craniocaudal. ??No focal hepatic lesions are seen. GALLBLADDER: ?? No calcified gallstones or overt inflammatory change. BILE DUCTS: ?? No biliary ductal dilation is identified. SPLEEN: ?? Spleen size normal. ??No focal lesions. PANCREAS: ?? There is some limited assessment due to the relative paucity of central abdominal fat, photon attenuation, and an interface of pancreas, stomach and sequela of prior inflammatory change. ??The pancreas is not well assessed. ??The pancreas appears to be atrophic and calcified suggesting sequela of chronic pancreatitis. ??There is a low-density/fluid collection along the lesser curvature of the stomach. ??This may be related to previous pancreatic inflammatory change such as the pseudo cyst although incompletely characterized, this is 2.7 x 2 cm (image 33). ??Other etiology rather than pancreas is possible. ADRENALS: ??Normal KIDNEYS/URINARY TRACT: ?? No right renal calculus. ??No left renal calculus. ??No ureteral calculus. ??There is a low-density lesion in the right kidney 0.7 cm meets criteria as being probably benign likely cyst. ??Urinary bladder unremarkable. ?? GI: ??Prominent amount of fecal material is seen in the colon. The appendix is normal. There is no bowel obstruction. No pneumatosis is seen. There is some mild wall thickening of the stomach and the cystic area noted along the lesser curvature, routine endoscopy recommended. The duodenal is unremarkable. There is no pneumatosis. PERITONEUM: ?? No ascites or free air. ??There is no mesenteric mass or lymphadenopathy. ??There is prominent varicosities in the left upper quadrant associated with the spleen, gastroesophageal junction and in the anterior left hemiabdomen. ??Multiple varicosities are also seen in the anterior abdomen near the umbilicus in the anterior right upper quadrant. RETROPERITONEUM: ?? No retroperitoneal mass or lymphadenopathy. REPRODUCTIVE: ?? The uterus is noted. ??There is no adnexal mass. VASCULATURE: ?? Abdominal aorta is nonaneurysmal. ??Varicosities as noted above. MUSCULOSKELETAL: ?? Bone windows demonstrate no acute or aggressive osseous abnormality. OTHER: ?? No other abnormality. THIS IS AN ELECTRONICALLY VERIFIED FINAL REPORT 09/18/2023 8:50 AM - Electronically signed by ??Govind Mast M.D. CH: LUISA D: ??09/18/2023 8:50 AM T: ??09/18/2023 8:50 AM Report ID: [id number] Reading Location: ??[id number] Procedure Note Govind Mast Jr., MD - 09/18/2023 EXAM DESCRIPTION: CT ABDOMEN PELVIS W/ CONTRAST REASON FOR STUDY: Diarrhea and history of pancreatitis. TECHNIQUE: CT scan of the abdomen and pelvis performed with intravenous and without oral contrast using helical scanning technique with dynamic intravenous contrast injection. Reconstructed coronal and sagittal MPR images reviewed. All images stored on PACS. Automated exposure control was used as a dose optimization technique for this examination. CONTRAST TYPE/DOSE: 84mL of IOPAMIDOL 76 % IV SOLN injected via Intravenous COMPARISON: None. FINDINGS: LOWER CHEST: Lung bases are predominantly clear. There is no pleural effusion. LIVER: Normal enhancement of the liver with no focal hepatic lesions. The liver is enlarged at 20 cm craniocaudal. No focal hepatic lesions are seen. GALLBLADDER: No calcified gallstones or overt inflammatory change. BILE DUCTS: No biliary ductal dilation is identified. SPLEEN: Spleen size normal. No focal lesions. PANCREAS: There is some limited assessment due to the relative paucity of central abdominal fat, photon attenuation, and an interface of pancreas, stomach and sequela of prior inflammatory change. The pancreas is not well assessed. The pancreas appears to be atrophic and calcified suggesting sequela of chronic pancreatitis. There is a low-density/fluid collection along the lesser curvature of the stomach. This may be related to previous pancreatic inflammatory change such as the pseudo cyst although incompletely characterized, this is 2.7 x 2 cm (image 33). Other etiology rather than pancreas is possible. ADRENALS: Normal KIDNEYS/URINARY TRACT: No right renal calculus. No left renal calculus. No ureteral calculus. There is a low-density lesion in the right kidney 0.7 cm meets criteria as being probably benign likely cyst. Urinary bladder unremarkable. GI: Prominent amount of fecal material is seen in the colon. The appendix is normal. There is no bowel obstruction. No pneumatosis is seen. There is some mild wall thickening of the stomach and the cystic area noted along the lesser curvature, routine endoscopy recommended. The duodenal is unremarkable. There is no pneumatosis. PERITONEUM: No ascites or free air. There is no mesenteric mass or lymphadenopathy. There is prominent varicosities in the left upper quadrant associated with the spleen, gastroesophageal junction and in the anterior left hemiabdomen. Multiple varicosities are also seen in the anterior abdomen near the umbilicus in the anterior right upper quadrant. RETROPERITONEUM: No retroperitoneal mass or lymphadenopathy. REPRODUCTIVE: The uterus is noted. There is no adnexal mass. VASCULATURE: Abdominal aorta is nonaneurysmal. Varicosities as noted above. MUSCULOSKELETAL: Bone windows demonstrate no acute or aggressive osseous abnormality. OTHER: No other abnormality. THIS IS AN ELECTRONICALLY VERIFIED FINAL REPORT 09/18/2023 8:50 AM - Electronically signed by Govind Mast M.D. CH: LUISA Report ID: [id number] Reading Location: [id number] IMPRESSION: No evidence of an acute abnormality of the abdomen and pelvis. Evidence of chronic pancreatitis with atrophic calcified pancreas. Fluid collection along the lesser curvature of the stomach may be related to previous pancreatic inflammatory change such as a pseudocyst although incompletely characterized. Gastric wall thickening is noted. Routine endoscopy recommended. Hepatomegaly. Multiple varicosities in the upper abdomen. us Wally Sandoval MD IMG CT ORDERABLES Final R esult documented in this encounter Visit Diagnoses Diagnosis Alcohol-induced chronic pancreatitis (HCC) Chronic pancreatitis Pancreatic pseudocyst Cyst and pseudocyst of pancreas Splenic vein thrombosis Other diseases of spleen documented in this encounter Administered Medications Inactive Administered Medications - up to 3 most recent administrations Medication Order MAR Action Action Date Dose Rate Site iopamidol (ISOVUE-370) 76 % injection 84 mL 84 mL, Intravenous, ONCE, 1 dose, On Wed09/17/23 at 1130 Given 09/17/2023 11:20 AM CDT 84 mL documented in this encounter Care Teams Storage Battery Inspector And Tester Relationship Specialty Start Date End Date Ari West PA [address] [place] [address] PCP - General Physician Certified Genetic Counselor 07/21/23 Salome Larsen MD #[address] [phone] Consulting Physician Endocrinology 09/01/23 Wally Sandoval MD #2 [place] [address] Consulting Physician Gastroenterology 09/08/23 documented as of this encounter
--- OUTSIDE RECORDS SUMMARY | 2024-07-02 03:52 | XMS_ITS | Encounter Summary ---
Author Organization [facility] Address [address] [place] [address] Phone Care Team Providers Care Drier And Grinder Tender Name Role Phone Ari West Primary Care Provider [phone] Reason for Visit * Reason Onset Date Comments Appointment 07/21/2023 Encounter Details Date Type Department Care Team (Late Contact Info) Description 07/21/2023 Telephone [facility] Call Center [address] [place] [address] Provider, Unknown UNKNOWN Appointment Social History Tobacco Use Types Packs/Day Years Used Date Smoking Tobacco: Never Assessed Comments Unknown Sex and Gender Information Value Date Recorded Sex Assigned at Not on file 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 Assessment: Patient allowed this RN to make a chart for her. Recommendation: This RN then transferred patient over to patient navigator line for more help. RATION TAILOR documented in this encounter Plan of Treatment Upcoming Encounters Date Type Department Care Team (Late Contact Info) Description 08/08/2024 3:45 PM ALTERATION TAILOR Office Visit [facility] #2 [place] [phone] Salome Larsen MD #[address] [phone] documented as of this encounter Visit Diagnoses Not on filedocumented in this encounter Care Teams Drier And Grinder Tender Relationship Specialty [place] [address] [place] [address] PCP - General Physician Pharmaceutical Analyst 07/21/23 documented as of this encounter
--- OUTSIDE RECORDS SUMMARY | 2024-07-02 03:52 | XMS_ITS | Encounter Summary ---
Author Organization [facility] Address [address] [place] [address] Phone Care Team Providers Care General Education Instructor Name Role Phone Ari West Primary Care Provider [phone] Salome Larsen MD Unavailable Encounter Details Date Type Department Care Team (Latest Contact Info) Description 09/07/2023 Transcribe Orders [facility] Central Scheduling [address] [place] [phone] Wally Sandoval MD #2 [place] [address] Alcohol-induced chronic pancreatitis (HCC) (Primary Dx) Social History Tobacco Use Types Packs/Day Years Used Date Smoking Tobacco: Every Day Cigarettes Smokeless Tobacco: Never Alcohol Use Standard Drinks/Week Comments Not Currently 0 (1 standard drink = 0.6 oz pur e alcohol) Sexually Active Control Partners Comments Yes Male Comments Unknown Sex and Gender Information Value Date Recorded Sex Assigned at Not on file 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 Gender Identity Not on file Sexual Orientation Not on file documented as of this encounter Plan of Treatment Upcoming Encounters Date Type Department Care Team (Late st Contact Info) Description 08/08/2024 3:45 PM INVESTIGATION CLERK Office Visit [facility] - [facility] - [place] #2 [place] [phone] Salome Larsen MD #[address] [address] documented as of this encounter Results * UR TEST QUAL (09/17/2023 10:15 AM CDT) PREG TEST,MONOCLONA L Negative 09/17/2023 10:38 AM CDT [facility] Urine Non-Phlebotomy Collection / Unknown 09/17/2023 10:15 AM CDT 09/17/2023 10:31 AM CDT us Wally Sandoval MD URINE ORDERABLES Final Re sult [facility] #1 [place] [address] documented in this encounter Visit Diagnoses Diagnosis Alcohol-induced chronic pancreatitis (HCC)- Primary Chronic pancreatitis documented in this encounter Care Teams General Education Instructor Relationship Specialty Start Date End Date Ari West PA [address] [place] [address] PCP - General Physician Debug Technician 07/21/23 Salome Larsen MD #[address] [phone] Consulting Physician Endocrinology 09/01/23 documented as of this encounter
--- OUTSIDE RECORDS SUMMARY | 2024-07-02 03:52 | XMS_ITS | Encounter Summary ---
Author Organization [employer] Care Team Providers Care Real Estate Investment Analyst Name Role Phone Ari West Primary Care Provider [phone] Salome Larsen MD Unavailable Wally Sandoval MD Unavailable [phone] Encounter Details Date Type Department Care Team (Latest Contact Info) Description 09/11/2023 Travel Social History Tobacco Use Types Packs/Day Years Used Date Smoking Tobacco: Every Day Cigarettes Smokeless Tobacco: Never Alcohol Use Standard Drinks/Week Comments Not Currently 0 (1 standard drink = 0.6 oz pur e alcohol) Sexually Active Control Partners Comments Yes Male Comments Unknown Sex and Gender Information Value Date Recorded Sex Assigned at Not on file Legal Sex Female 10:57 AM BARREL COATER Gender Identity Not on file Sexual Orientation Not on file documented as of this encounter Plan of Treatment Upcoming Encounters Date Type Department Care Team (Late st Contact Info) Description 08/08/2024 3:45 PM BARREL COATER Office Visit [facility] - Endocrinology - [place] [address] [place] [address] Salome Larsen MD [address] [phone] documented as of this encounter Visit Diagnoses Not on filedocumented in this encounter Care Teams Real Estate Investment Analyst Relationship Specialty Start Date End Date Ari West PA [address] [place] [id number] PCP - General Physician Assembled Wood Products Repairer 07/21/23 Salome Larsen MD #2 [facility] [id number] Consulting Physician Endocrinology 09/01/23 Wally Sandoval MD [address] [place] [address] Consulting Physician Gastroenterology 09/08/23 documented as of this encounter
--- OUTSIDE RECORDS SUMMARY | 2024-07-02 03:52 | XMS_ITS | Encounter Summary ---
Author Organization [email or web address] Care Team Providers Care Guest Associate Name Role Phone Ari West Primary Care Provider [phone] Salome Larsen MD Unavailable Encounter Details Date Type Department Care Team (Latest Contact Info) Description 09/07/2023 Travel Social History Tobacco Use Types Packs/Day Years Used Date Smoking Tobacco: Every Day Cigarettes Smokeless Tobacco: Never Alcohol Use Standard Drinks/Week Comments Not Currently 0 (1 standard drink = 0.6 oz pur e alcohol) Sexually Active Control Partners Comments Yes Male Comments Unknown Sex and Gender Information Value Date Recorded Sex Assigned at Not on file 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 Sex 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 SOFTWARE 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 Gender Identity Not on file Sexual Orientation Not on file documented as of this encounter Plan of Treatment Upcoming Encounters Date Type Department Care Team (Late st Contact Info) Description 08/08/2024 3:45 PM JUNIOR SOFTWARE ENGINEER Office Visit [facility] - Endocrinology - [place] [address] [place] [address] Salome Larsen MD [address] [id number] documented as of this encounter Visit Diagnoses Not on filedocumented in this encounter Care Teams Guest Associate Relationship Specialty [place] [address] [place] [phone] PCP - General Physician Car Shagger 07/21/23 Salome Larsen MD [address] [phone] Consulting Physician Endocrinology 09/01/23 documented as of this encounter
--- OUTSIDE RECORDS SUMMARY | 2024-07-02 03:52 | XMS_ITS | Encounter Summary ---
Author Organization [facility] Address [address] [place] [address] Phone Care Team Providers Care Billet Assembler Name Role Phone Ari West Primary Care Provider [phone] Salome Larsen MD Unavailable Reason for Referral * Radiology Services (Routine) - Closed Specialty Diagnoses / Procedures Referred By Contac t Referred To Contact Radiology Diagnoses Alcohol-induced chronic pancreatitis (HCC) Pancreatic pseudocyst Splenic vein thrombosis Procedures CT ABDOMEN PELVIS W/ CONTRAST Wally Sandoval MD [address] [place] [address] Phone: tel: fax: Referral ID Status Reason Start Date Expiration Date Visits Re quested Visits Authorized [id number] Closed 09/07/2023 1 1 * Other (Routine) - Closed Specialty Diagnoses / Procedures Referred By Contac t Referred To Contact Gastroenterology Diagnoses Alcohol-induced chronic pancreatitis (HCC) Pancreatic pseudocyst Splenic vein thrombosis Procedures GASTRO PROCEDURE Wally Sandoval MD [address] [place] [address] Phone: tel: fax: Referral ID Status Reason Start Date Expiration Date Visits Re quested Visits Authorized [id number] Closed 09/07/2023 1 1 * Other (Routine) - Closed Specialty Diagnoses / Procedures Referred By Janie t Referred To Contact Gastroenterology Diagnoses Alcohol-induced chronic pancreatitis (HCC) Pancreatic pseudocyst Splenic vein thrombosis Procedures GASTRO PROCEDURE Wally Sandoval MD [address] [place] [address] Phone: tel: fax: Referral ID Status Reason Start Date Expiration Date Visits Re quested Visits Authorized [id number] Closed 09/07/2023 1 1 * Laboratory Services (Routine) - Closed Specialty Diagnoses / Procedures Referred By Janie de dios Referred To Contact Diagnoses Alcohol-induced chronic pancreatitis (HCC) Pancreatic pseudocyst Splenic vein thrombosis Procedures GASTROINTESTINAL PATHOGEN ARRAY Wally Sandoval MD [address] [place] [address] Phone: tel: fax: Referral ID Status Reason Start Date Expiration Date Visits Re quested Visits Authorized [id number] Closed 09/07/2023 1 1 Reason for Visit * Reason Comments New Patient * Consult, Test & Initiate Treatment (Routine) - Open Specialty Diagnoses / Procedures Referred By Janie de dios Referred To Contact Gastroenterology Diagnoses Acute embolism and thrombosis of other specified veins Procedures OFFICE/OP EST LVL 3 LOW MDM/20-29 MIN Ari West PA [address] [place] [address] Phone: tel: fax: [facility] - [facility] [address] [place] [address] Phone: tel: fax: Referral ID Status Reason Start Date Expiration Date Visits Re quested Visits Authorized [id number] Open 1 1 Encounter Details Date Type Department Care Team (Latest Contact Info) Description 09/07/2023 11:00 AM CDT Office Visit [facility] - Gastroenterology - [facility] [address] [place] [address] Wally Sandoval MD [address] [place] [address] Alcohol-induced chronic pancreatitis (HCC) (Primary Dx); Pancreatic pseudocyst; Splenic vein thrombosis; Bipolar affective disorder, remission status unspecified (HCC); 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, with long-term current use of insulin (HCC) Discharge Disposition: Discharged to home or Selfcare [...] on file 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 Gender Identity Not on file Sexual Orientation Not on file documented as of this encounter Last Filed Vital Signs Vital Sign Reading Time Taken Comments Blood Pressure 102/78 09/07/2023 10:47 AM CDT Pulse 85 09/07/2023 10:47 AM CDT Temperature 36.3 ??C (97.3 ??F) 09/07/2023 10:47 AM C DT Respiratory Rate 14 09/07/2023 10:47 AM CDT Oxygen Saturation 98% 09/07/2023 10:47 AM CDT Inhaled Oxygen Concentration - - Weight 76.3 kg (168 lb 3.2 oz) 09/07/2023 10:47 AM CDT Height 160 cm (5' 3 ) 09/07/2023 10:47 AM CDT Body Mass Index 29.8 09/07/2023 10:47 AM CDT documented in this encounter Progress Notes * Wally Sandoval MD - 09/07/2023 11:00 AM CDT GI Clinic Consult Note DATE OF SERVICE: 09/07/2023 Marisa Lott is a pleasant 43 y.o. female referred to Gastroenterology for evaluation and management of chief complaint: Diarrhea history of pancreatitis Referred by Ari West PA Thank you for this consultation. Marisa Lott is a pleasant 43 y.o. female with a PMH notable for bipolar disease. The patient isreferred to GI medicine for a chief complaint of diarrhea history of pancreatitis. Patient has a history of bipolar disease alcohol misuse she states that her last ring he is in 2021 She states that she had pancreatitis which are records beer out and necrotizing pancreatitis in 2019 she was admitted to [facility] she had to have external drainage ERCP had failed at that time to cannulate the pancreatic duct she had a indwelling catheter for several weeks without anyevidence of pancreatic duct fistulization or leak eventually the catheter was removed the patient has last followed up with [facility] in 2019. She herself does not have any significant complaints her last episode of abdominal pain was in 2021lasted for a few weeks otherwise she has no abdominal pain She does have loose bowel movements up to 6 times a day which are oily and the malodorous she is onCreon 361 pill 3 times a day this is not very helpful she has no upper GI complaints she did lose weight around the time of a necrotizing pancreatitis were since then she has been stable the last CT scan that is available for review demonstrates that she has possible splenic vein thrombosis and pancreatic pseudocyst Her father had apparently blood clots and was told he had antiphospholipid antibodies ALLERGIES has no allergies on file. CURRENT MEDICATION Current Outpatient Medications: ALBUTEROL SULFATE HFA IN, take 90 mcg by inhalation., Disp: , Rfl: amphetamine-dextroamphetamine (ADDERALL XR) 20 MG CAPSULE SR 24 HR, Take 20 mg by mouth every morning., Disp: , Rfl: Aripiprazole 30 MG Tablet, Take 30 mg by mouth daily. (Patient not taking: Reported on 09/07/2023), Disp: , Rfl: atorvastatin (LIPITOR) 10 MG Tablet, Take 10 mg by mouth daily. (Patient not taking: Reported on 09/07/2023), Disp: , Rfl: benztropine (COGENTIN) 1 MG Tablet, Take 1 mg by mouth 2 times daily. (Patient not taking: Reportedon 09/07/2023), Disp: , Rfl: buPROPion (WELLBUTRIN) 150 MG XL tablet, Take 150 mg by mouth every morning. (Patient not taking: Reported on 09/07/2023), Disp: , Rfl: busPIRone (BUSPAR) 15 MG Tablet, Take 15 mg by mouth 3 times daily., Disp: , Rfl: ciprofloxacin-dexamethasone (CIPRODEX) 0.3-0.1 % Suspension, Place 4 Drops in affected ear(s) every12 hours. (Patient not taking: Reported on 09/07/2023), Disp: , Rfl: citalopram (CeleXA) 40 MG Tablet, Take 40 mg by mouth daily. (Patient not taking: Reported on 09/07/2023), Disp: , Rfl: Continuous Blood Gluc Oyster Grader (Dexcom G6 Oyster Grader) Device, by Does not apply route., Disp: , Rfl: Ergocalciferol (Vitamin D2) 50 MCG (1999 UT) Tablet, Take by mouth. (Patient not taking: Reported on 09/07/2023), Disp: , Rfl: escitalopram (LEXAPRO) 10 MG Tablet, Take 10 mg by mouth., Disp: , Rfl: fluticasone (Flovent HFA) 110 MCG/ACT Aerosol, take 2 Puffs by inhalation 2 times daily. (Patient not taking: Reported on 09/07/2023), Disp: , Rfl: folic acid (FOLVITE) 1 MG Tablet, Take 1 mg by mouth daily. (Patient not taking: Reported on 09/07/2023), Disp: , Rfl: gabapentin (NEURONTIN) 300 MG Capsule, Take 300 mg by mouth 3 times daily. (Patient not taking: Reported on 09/07/2023), Disp: , Rfl: hydrOXYzine (VISTARIL) 25 MG Capsule, Take 25 mg by mouth 3 times daily as needed., Disp: , Rfl: ibandronate (BONIVA) 150 MG Tablet, Take 150 mg by mouth every 30 days. (Patient not taking: Reported on 09/07/2023), Disp: , Rfl: insulin glargine (Lantus) 100 UNIT/ML Solution, 100 Units by Subcutaneous route nightly., Disp: , Rfl: insulin lispro (HumaLOG) 100 UNIT/ML Solution, 100 Units by Subcutaneous route 3 times daily (aftermeals). Use as directed, Disp: , Rfl: Insulin Syringe-Needle U-100 (TRUEplus Insulin Syringe) 30G X 5/16 0.5 ML Misc, by Does not apply route., Disp: , Rfl: lisinopril (PRINIVIL, ZESTRIL) 5 MG Tablet, Take 5 mg by mouth daily. (Patient not taking: Reportedon 09/07/2023), Disp: , Rfl: loratadine (CLARITIN) 10 MG Tablet, Take 10 mg by mouth daily. (Patient not taking: Reported on 09/07/2023), Disp: , Rfl: methylPREDNISolone acetate (DEPO-Medrol) 80 MG/ML Suspension, 80 mg by Intramuscular route once. (Patient not taking: Reported on 09/07/2023), Disp: , Rfl: naltrexone (DEPADE) 50 MG Tablet, Take 50 mg by mouth daily. (Patient not taking: Reported on 09/07/2023), Disp: , Rfl: nicotine (NICODERM CQ) 21 MG/24HR PATCH 24 HR, 1 Patch by Transdermal route every 24 hours., Disp: , Rfl: nicotine polacrilex (COMMIT) 4 MG Lozenge, 4 mg by Buccal route as needed., Disp: , Rfl: OXcarbazepine (TRILEPTAL) 300 MG Tablet, Take 300 mg by mouth 2 times daily. (Patient not taking: Reported on 09/07/2023), Disp: , Rfl: Pancrelipase, Ehq-Zffd-Rksv, (Creon) [id number] Capsule DR Particles, Take 1 Capsule by mouth 3 times daily (with meals)., Disp: , Rfl: predniSONE (DELTASONE) 20 MG Tablet, Take 20 mg by mouth daily. (Patient not taking: Reported on 09/07/2023), Disp: , Rfl: pregabalin (LYRICA) 200 MG Capsule, Take 300 mg by mouth 2 times daily., Disp: , Rfl: QUEtiapine (SEROquel) 100 MG Tablet, Take 100 mg by mouth 2 times daily. (Patient not taking: Reported on 09/07/2023), Disp: , Rfl: Thiamine HCl (VITAMIN B-1 PO), Take 100 mg by mouth. (Patient not taking: Reported on 09/07/2023), Disp: , Rfl: PAST MEDICAL HX has a past medical history of Anxiety, Depression, Diabetes mellitus (HCC), and Pancreatitis. PAST SURGICAL HX has a past surgical history that includes Section, Classic; hc dmh supra pubic catheter; and upper arm/elbow surgery unlisted. SOCIAL HX reports that she has been smoking cigarettes. She has been smoking an average of .5 packs per day. She has never used smokeless tobacco. She reports that she does not currently use alcohol. She reports that she does not currently use drugs. Family Hx family history is not on file. Physical Exam: BP 102/78 Pulse 85 Temp 97.3 ??F (36.3 ??C) Resp 14 Ht 5' 3 (1.6 m) Wt 168 lb 3.2 oz (76.3 kg) SpO2 98% BMI 29.80 kg/m?? General appearance: alert,active and in no acute distress. Eyes: EOMI,PEARLA, conjunctiva and sclera clear . Lids normal Chest: Lungs clear to auscultation bilaterally. Cardiovascular: Heart rate and rhythm regular. Heart sounds normal without murmur. No edema Abdomen: Normal bowel sounds throughout. No abd tenderness or palpable masses . No rigidity, rebound or guarding . Skin: Warm and dry . No rashes noted Neurologic: no focal neuro deficit, good muscle tone, Moving all extremities well. Diagnoses and all orders for this visit: Alcohol-induced chronic pancreatitis (HCC) - CALPROTECTIN, FECES; Future - CELIAC ANTIBODY PANEL; Future - GASTROINTESTINAL PATHOGEN ARRAY; Future - INFLAMMATORY BOWEL DISEASE SEROLOGY PANEL, SERUM, [place] IBDP2; Future - C-REACTIVE PROTEIN (CRP) QUANT; Future - ERYTHROCYTE SEDIMENTATION RATE (ESR); Future - COMPLETE BLOOD COUNT (CBC) WITH DIFF; Future - CMP (COMPREHENSIVE METABOLIC PANEL); Future - GASTRO PROCEDURE; Future - GASTRO PROCEDURE; Future - PANCREATIC ELASTASE, FECES; Future - CLOSTRIDIUM DIFFICILE TOXINS A&B; Future - CT ABDOMEN PELVIS W/ CONTRAST; Future Pancreatic pseudocyst - CALPROTECTIN, FECES; Future - CELIAC ANTIBODY PANEL; Future - GASTROINTESTINAL PATHOGEN ARRAY; Future - INFLAMMATORY BOWEL DISEASE SEROLOGY PANEL, SERUM, [place] IBDP2; Future - C-REACTIVE PROTEIN (CRP) QUANT; Future - ERYTHROCYTE SEDIMENTATION RATE (ESR); Future - COMPLETE BLOOD COUNT (CBC) WITH DIFF; Future - CMP (COMPREHENSIVE METABOLIC PANEL); Future - GASTRO PROCEDURE; Future - GASTRO PROCEDURE; Future - PANCREATIC ELASTASE, FECES; Future - CLOSTRIDIUM DIFFICILE TOXINS A&B; Future - CT ABDOMEN PELVIS W/ CONTRAST; Future Splenic vein thrombosis - CALPROTECTIN, FECES; Future - CELIAC ANTIBODY PANEL; Future - GASTROINTESTINAL PATHOGEN ARRAY; Future - INFLAMMATORY BOWEL DISEASE SEROLOGY PANEL, SERUM, [place] IBDP2; Future - C-REACTIVE PROTEIN (CRP) QUANT; Future - ERYTHROCYTE SEDIMENTATION RATE (ESR); Future - COMPLETE BLOOD COUNT (CBC) WITH DIFF; Future - CMP (COMPREHENSIVE METABOLIC PANEL); Future - GASTRO PROCEDURE; Future - GASTRO PROCEDURE; Future - PANCREATIC ELASTASE, FECES; Future - CLOSTRIDIUM DIFFICILE TOXINS A&B; Future - CT ABDOMEN PELVIS W/ CONTRAST; Future Bipolar affective disorder, remission status unspecified (HCC) Patient has a history of alcohol misuse she states that she has not been using alcohol for the pastyear She has had necrotizing pancreatitis and pseudocyst in the past the last imaging was in 2019 we will obtain an updated imaging in 2023 to see if the pseudocyst start increasing size or have resolved of relevant she has no pain at this She also has splenic vein thrombosis and we will see if this has become more extensive this appearsto be a chronic problem at this time a CTA of the abdomen will be obtained She has severe diarrhea likely related to pancreatic insufficiency I have asked her to increase herCreon dosage to 2 tablets of 36,000 twice a day at least She also has diabetes in the diarrhea could be related to the diabetic diarrhea other infectious colitis IBD will also be evaluated Because she has been vein thrombosis she may have substantial cardiac varices we will also screen for sees with the EGD The risks and benefits of my recommendations, as well as other treatment options were discussed with the patient today and time was spent in counseling and coordination. Questions were answered. 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 Office Visit [facility] - Endocrinology - [facility] [address] [place] [id number] Salome Larsen MD [address] [phone] Scheduled Orders Name Type Priority Associated Diagnoses Orde r Schedule GASTROINTESTINAL PATHOGEN ARRAY Microbiology Routine Alcohol-induced chronic pancreatitis (HCC) Pancreatic pseudocyst Splenic vein thrombosis Expected: 04/14/2024, Expires: 09/06/2024 GASTRO PROCEDURE Procedures Routine Alcohol-induced chronic pancreatitis (HCC) Pancreatic pseudocyst Splenic vein thrombosis Expected: 09/07/2023 (Approximate), Expires: 09/06/2024 GASTRO PROCEDURE Procedures Routine Alcohol-induced chronic pancreatitis (HCC) Pancreatic pseudocyst Splenic vein thrombosis Expected: 09/07/2023 (Approximate), Expires: 09/06/2024 documented as of this encounter Results * CT ABDOMEN PELVIS [...] Electronically signed by ??Govind Mast M.D. CH: D: ??09/18/2023 8:50 AM T: ??09/18/2023 8:50 AM Report ID: [id number] Reading Location: ??[id number] Procedure Note Govind Mast Jr., MD - [...] Govind Mast M.D. CH: LUISA Report ID: [id number] Reading Location: [id number] IMPRESSION: No evidence of an acute abnormality [...] MD IMG CT ORDERABLES Final R esult * (ABNORMAL) HEMOGLOBIN A1C W/ ESTIMATED GLUCOSE (09/07/2023 11:52 AM CDT) HGB-A1C 10.2(H) 4.0 - 6.0 % 09/07/2023 1:14 PM CDT [facility] Est Average Glucose 246.0 mg/dL 09/07/2023 1:14 PM CDT [facility] Blood Venipuncture / Unknown 09/07/2023 11:52 AM CDT 09/07/2023 12:37 PM CDT Narrative [facility] - 09/07/2023 1:14 PM CDT HEMOGLOBIN A1C: DIABETIC PATIENTS: WELL-CONTROLLED: ?? 6.2 - 7.0 INTERMEDIATE WELL-CONTROLLED: ??7.0 - 9.0 POORLY-CONTROLLED: ??>9.0 us Wally Sandoval MD CHEMISTRY ORDERABLES Linda l Result [facility] [address] [place] [address] * (ABNORMAL) CMP (COMPREHENSIVE METABOLIC PANEL) (09/07/2023 11:52 AM CDT) SODIUM 136 136 - 145 mmol/L 09/07/2023 1:14 PM CDT [facility] POTASSIUM 3.7 3.5 - 5.1 mmol/L 09/07/2023 1:14 PM CDT [facility] CHLORIDE 105 98 - 107 mmol/L 09/07/2023 1:14 PM CDT [facility] CO2, VENOUS 24 22 - 30 mmol/L 09/07/2023 1:14 PM CDT [facility] ANION GAP 10.7 <18.0 mmol/L 09/07/2023 1:14 PM CDT [facility] GLUCOSE 276(H) 70 - 99 mg/dL 09/07/2023 1:14 PM CDT [facility] BUN 11 5 - 18 mg/dL 09/07/2023 1:14 PM CDT [facility] CREATININE, BLOOD 0.72 0.60 - 1.00 mg/dL 09/07/2023 1:14 PM CDT [facility] BUN/CREATININE RATIO 15 12 - 20 ratio 09/07/2023 1:14 PM CDT [facility] TOTAL PROTEIN 7.0 6.3 - 8.2 g/dL 09/07/2023 1:14 PM CDT [facility] ALBUMIN 3.6 3.5 - 5.0 g/dL 09/07/2023 1:14 PM CDT [facility] A/G RATIO 1.1 1.0 - 2.2 09/07/2023 1:14 PM CDT [facility] CALCIUM 8.5(L) 8.7 - 10.5 mg/dL 09/07/2023 1:14 PM CDT [facility] T BILI 0.3 0.2 - 1.2 mg/dL 09/07/2023 1:14 PM CDT [facility] SGOT (AST) 16 5 - 34 U/L 09/07/2023 1:14 PM CDT [facility] SGPT (ALT) 19 0 - 55 U/L 09/07/2023 1:14 PM CDT [facility] ALKALINE PHOSPHATASE 98 40 - 150 U/L 09/07/2023 1:14 PM CDT [facility] IS THE PATIENT REQUIRED TO BE FASTING? No 09/07/2023 1:14 PM CDT [facility] GFR, ESTIMATED >60 >=60 09/07/2023 1:14 PM CDT [facility] Comment: Creatinine Clearance is the preferred criteria for selecting drug dose adjustments in renally impaired patients. ??The GFR is provided as additional pertinent clinical information. GFR is reported in mL/min/1.73 sq m. Calculation based on the Chronic Kidney Disease Epidemiology Collaboration (CKD- EPI) equation refit without adjustment for race. GFR, EST. >60 >=60 024 1:14 PM CDT [facility] GFR, EST. NONAFRICAN >60 >=60 09/07/2023 1:14 PM CDT [facility] Blood Venipuncture / Unknown 09/07/2023 11:52 AM CDT 09/07/2023 12:37 PM CDT us Wally Sandoval MD CHEMISTRY ORDERABLES Linda l Result [facility] [address] [place] [address] * (ABNORMAL) ERYTHROCYTE SEDIMENTATION RATE (ESR) (09/07/2023 11:52 AM CDT) ESR (SED RATE, ERYTHROCYTE SEDIMENTATION RATE) 29(H) <20 mm/h 09/07/2023 12:50 PM CDT [facility] Comment: Patients presenting with increased level of fibrinogen, gamma globulins, or abnormally shaped RBCs could affect the results for the erythrocyte sedimentation rate (ESR). Results should be clinically correlated. Blood Venipuncture / Unknown 09/07/2023 11:52 AM CDT 09/07/2023 12:37 PM CDT Wally Sandoval MD HEMATOLOGY ORDERABLES Fin al Result [facility] [address] [place] [address] * C-REACTIVE PROTEIN (CRP) QUANT (09/07/2023 11:52 AM CDT) C-REACTIVE PROTEIN 0.19 <0.50 mg/dL 09/07/2023 1:14 PM CDT [facility] Blood Venipuncture / Unknown 09/07/2023 11:52 AM CDT 09/07/2023 12:37 PM CDT Wally Sandoval MD CHEMISTRY ORDERABLES Linda l Result Performing Organization Address City/[facility]/ZIP Co de Phone Number [facility] [address] [place] [address] * INFLAMMATORY BOWEL DISEASE SEROLOGY PANEL, SERUM, [place] IBDP2 (09/07/2023 11:52 AM CDT) IBDP2, CYTOPLASMIC NEUTROPHILIC AB IBD, S Negative Negative 09/14/2023 5:25 PM CDT [facility] IBDP2, ANCA2 INTERPRETATION SEE NOTE 09/14/2023 5:25 PM CDT [facility] Comment: Negative for S. cerevisiae antibodies and pANCA. This test should not be relied upon exclusively to establish a diagnosis of inflammatory bowel disease (IBD). Approximately 50% of individuals with IBD are negative for IgA and IgG S. cerevisiae and pANCA. Correlation of clinical symptoms, endoscopy and biopsy findings are required to establish the diagnosis. ADDITIONAL INFORMATION This test was developed and its performance characteristics determined by [facility] in a manner consistent with CLIA requirements. This test has not been cleared or approved by the U.S. Food and Drug Administration. SCERA, SACCHAROMYCES CEREVISIAE AB, IGA, S 3.0 <20.0 (Negative) RU/mL 09/14/2023 5:25 PM CDT [facility] Comment: ADDITIONAL INFORMATION This test was developed and its performance characteristics determined by [facility] in a manner consistent with CLIA requirements. This test has not been cleared or approved by the U.S. Food and Drug Administration. SCERG, SACCHAROMYCES CEREVISIAE ANTIBODY, IGG, SERUM 11.4 <20.0 (Negative) RU/mL 09/14/2023 5:25 PM CDT [facility] Comment: ADDITIONAL INFORMATION This test was developed and its performance characteristics determined by [facility] in a manner consistent with CLIA requirements. This test has not been cleared or approved by the U.S. Food and Drug Administration. Test Performed by: [facility] [place] [address] Finisher Hot Strip: Felix Palumbo M.D. Ph.D.; CLIA# [id number] Blood Venipuncture / Unknown 09/07/2023 11:52 AM CDT 09/07/2023 12:37 PM CDT us Wally Sandoval MD LAB SEND OUTS Final Res ult [facility] documented in this encounter Visit Diagnoses Diagnosis Alcohol-induced chronic pancreatitis (HCC)- Primary Chronic pancreatitis Pancreatic pseudocyst Cyst and pseudocyst of pancreas Splenic vein thrombosis Other diseases of spleen Bipolar affective disorder, remission status unspecified (HCC) 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, with long- term current use of insulin (HCC) Alcohol-induced chronic pancreatitis (HCC) Chronic pancreatitis Pancreatic pseudocyst Cyst and pseudocyst of pancreas Splenic vein thrombosis Other diseases of spleen documented in this encounter Care Teams Billet Assembler Relationship Specialty Start Date End Date Ari West PA [facility] [place] [address] PCP - General Physician Drift Miner 07/21/23 Salome Larsen MD [address] [address] Consulting Physician Endocrinology 09/01/23 documented as of this encounter
--- OUTSIDE RECORDS SUMMARY | 2024-07-02 03:52 | XMS_ITS | Encounter Summary ---
Author Organization [facility] Address [address] 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 Office Visit [facility] - Endocrinology - [facility] [address] [place] [address] Salome Larsen MD [address] [address] documented as of this encounter Visit Diagnoses Not on filedocumented in this encounter Care Teams Insulation Blanket Maker Relationship Specialty Start Date End Date Ari West PA [address] [place] [id number] PCP - General Physician Museum Technician 07/21/23 Salome Larsen MD [address] [address] Consulting Physician Endocrinology 09/01/23 Wally Sandoval MD [address] [place] [address] Consulting Physician Gastroenterology 09/08/23 documented as of this encounter
--- OUTSIDE RECORDS SUMMARY | 2024-07-02 03:52 | XMS_ITS | Encounter Summary ---
Author Organization [facility] Address [address] [place] [address] Phone Care Team Providers Care Consulting Manager Name Role Phone Ari West Primary Care Provider [phone] Salome Larsen MD Unavailable Wally Sandoval MD Unavailable [phone] Reason for Referral * Radiology Services (Routine) - Closed Specialty Diagnoses / Procedures Referred By Contac t Referred To Contact Radiology Diagnoses Thyroid nodule Procedures US THYROID Salome Larsen MD [address] [address] Phone: tel: fax: Referral ID Status Reason Start Date Expiration Date Visits Re quested Visits Authorized [id number] Closed 09/13/2023 1 1 Reason for Visit * Reason Comments Diabetes Mellitus * Consult, Test & Initiate Treatment (Routine) - Open Specialty Diagnoses / Procedures Referred By Contgeneva t Referred To Contact Endocrinology Diagnoses Type 1 diabetes mellitus without complications Procedures OFFICE/OP EST LVL 3 LOW MDM/20-29 MIN Ari West PA [address] [place] [address] Phone: tel: fax: Referral ID Status Reason Start Date Expiration Date Visits Re quested Visits Authorized [id number] Open 1 1 Encounter Details Date Type Department Care Team (Late st Contact Info) Description 09/13/2023 10:00 AM CDT Office Visit [facility] - Endocrinology - [place] [address] [place] [address] Salome Larsen MD [address] [address] Type 2 diabetes mellitus with diabetic polyneuropathy, with long-term current use of insulin (HCC) (Primary Dx); Insulin dose changed (HCC); Thyroid nodule; Tobacco use; Hypoglycemia; Overweight Discharge Disposition: Discharged to home or Selfcare Social History Tobacco Use Types Packs/Day Years Used Date Smoking Tobacco: Every Day Cigarettes Smokeless Tobacco: Never Tobacco Cessation:Ready to Q uit: Not Asked; Counseling Given: Not Answered Alcohol Use Standard Drinks/Week Comments Not Currently 0 (1 standard drink = 0.6 oz pur e alcohol) Sexually Active Control Partners Comments Yes Male Comments No Sex and Gender Information Value Date Recorded Sex Assigned at Not on file Legal Sex Female 10:57 AM KNUCKLE BENDER Gender Identity Not on file Sexual Orientation Not on file documented as of this encounter Last Filed Vital Signs Vital Sign Reading Time Taken Comments Blood Pressure 110/68 09/13/2023 9:33 AM CDT Pulse 92 09/13/2023 9:33 AM CDT Temperature 36.7 ??C (98.1 ??F) 09/13/2023 9:33 AM CD T Respiratory Rate 18 09/13/2023 9:33 AM CDT Oxygen Saturation 98% 09/13/2023 9:33 AM CDT Inhaled Oxygen Concentration - - Weight 76.2 kg (168 lb) 09/13/2023 9:33 AM CDT Height - - Body Mass Index 29.76 09/07/2023 10:47 AM CDT documented in this encounter Patient Instructions * Patient Instructions* Salome Larsen MD - 09/13/2023 10:00 AM CDT Please take Lantus 30 units at bedtime Please take Humalog 10 units before each meal Please use correctional factor insulin before each meal as directed Please monitor blood sugar before each meal and at bedtime Please bring blood sugar log for review at the next visit Contact Endocrinology Clinic for low blood sugar events Follow up visit in 2-3 weeks RULE OF 15: If you have signs/symptoms of low blood sugar (hypoglycemia),and/or your blood sugar isless than 70 mg/dl, you may choose one of the below treatments (~15 gm of carbohydrate):glucose tablets or 1?2 glass (4 oz.) of apple juice or 1/2 glass (4 oz.) of clear regular soda and recheck blood sugar in 15 minutes, If not above 80 mg/dl, retreat treatment until blood sugar is above 80 mg/dl.Once blood sugar is above 80-90 mg/dL, please give insulin as scheduled. Look at your feet, top and bottom every morning. If you have any signs of infection, such as:areas,change in feeling or temperature, swelling, blisters, or cracks in the skin, call your doctor rightaway. Apply lotion to dry skin areas to prevent cracks. Keep the skin between your toes clean and dry. 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 The patient's diabetes is complicated by lower extremity sensory neuropathy. Other pertinent health history includes chronic pancreatitis, bipolar disorder, tobacco use disorder, and overweight. The patient was initially diagnosed with diabetes approximately 5 years ago. Currently, Ms. Lott takes Lantus 45 units at bedtime and Humalog 5-10 units before each meal for management of hyperglycemia. The patient reports occasional, mild hypoglycemic events with intactsymptoms of hypoglycemia awareness. Most episodes occur when she is physically active. The patient denied severe low blood sugar events requiring third alliance party intervention. Unfortunately, the patient did not bring her glucose meter for download or a logbook for review at today's office appointment. Ms. Lott reported that morning blood sugars have been running mostly between 130 and 200 mg/dL with blood sugars checked at other times of the day in the range of 200 to 300 mg/ dL. Hemoglobin A1c obtained in August 2023 was 10.2%. The patient reports that she was previously diagnosed with thyroid nodule. Diabetes related complication surveillance 1. No history of diabetic retinopathy - the last dilated eye exam was several years ago 2. (+) symptoms of peripheral sensory neuropathy 3. Urine microalbumin/creatinine ratio - not available 4. No history of macrovascular disease Review of Systems Constitutional: Negative for activity change, appetite change, and unexpected weight change Respiratory: Negative for cough and shortness of breath Cardiovascular: Negative for chest pain and palpitations Gastrointestinal: Negative for diarrhea, constipation and abdominal distention Endocrine: Positive for polydipsia, polyphagia and polyuria. Neurological: Positive for tingling/numbness Past Medical History Positives Diagnosis Date Anxiety Depression Diabetes mellitus (HCC) Pancreatitis Past Surgical History: Procedure Laterality Date SECTION, CLASSIC TIMES 3 HC [facility] SUPRA PUBIC CATHETER UPPER ARM/ELBOW SURGERY UNLISTED Social History Socioeconomic History Marital status: Spouse name: Not on file Number of children: Not on file Years of education: Not on file Highest education level: Not on file Occupational History Not on file Tobacco Use Smoking status: Every Day Packs/day: .5 Types: Cigarettes Smokeless tobacco: Never Vaping Use Vaping Use: Former Substance and Sexual Activity Alcohol use: Not Currently Drug use: Not Currently Sexual activity: Yes Partners: Male Other Topics Concern Not on file Social History Narrative Not on file Social Determinants of Health Financial Resource Needs: Not on file Food Insecurity Needs: Not on file Transportation Needs: Not on file Physical Activity: Not on file Stress: Not on file Social Integration: Not on file Intimate Partner Violence: Not on file Housing Stability: Not on file No family history on file. Vitals: 09/13/23 0933 BP: 110/68 BP Location: Left Arm BP Position: Sitting BP Cuff Size: Regular Pulse: 92 Resp: 18 Temp: 98.1 ??F (36.7 ??C) TempSrc: Temporal SpO2: 98% Weight: 168 lb (76.2 kg) Objective: Physical Exam Constitutional: appears well-developed and well-nourished. No acute distress. Head: Normocephalic and atraumatic. Cardiovascular: Normal rate and regular rhythm Pulmonary/Chest: Effort normal and breath sounds normal Abdominal: No lipohypertrophy at injection sites Diabetic foot exam: Skin on the patient???s feet was clean, dry, and intact. Dorsalis pedis pulses were 2+ bilaterally, and monofilament perception was diminished in both feet. (+) callus, (+) onychomycosis DIAGNOSTIC DATA: Lab Results Component Value Date HGBA1C 10.2 (H) 09/07/2023 Lab Results Component Value Date HEMATOCRIT 35.2 (L) 09/07/2023 Lab Results Component Value Date CREATININE 0.72 09/07/2023 GFRNA >60 09/07/2023 CALCIUM 8.5 (L) 09/07/2023 SGPTALT 19 09/07/2023 Lab Results Component Value Date SODIUM 136 09/07/2023 POTASSIUM 3.7 09/07/2023 CHLORIDE 105 09/07/2023 CO2VEN 24 09/07/2023 10/13/19 CT Body Outside Consult Impression 1. 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 The largest collection is in the lesser sac has increased in size as described above. The findings, conclusions and recommendations within this report do not replace the initial findings, conclusions and recommendations made at the facility where the study was performed based upon the imaging and clinical condition at that time. Comparison with the prior report and clinical history is necessary. The provided images may or may not represent the umkumiut source data set and thus may contain changes that may lower the accuracy of this second-opinion interpretation. Electronically signed by: Raúl Rousseau M.D. Narrative EXAMINATION: RADIOLOGY CONSULTATION ON OUTSIDE IMAGING STUDY STUDY INITIALLY PERFORMED: 10/12/2019 at [facility]. TYPE OF STUDY: Multiple CT images of the abdomen and pelvis with intravenous contrast are provided at the time of this interpretation. CONTRAST ROUTE: Contrast was administered via the intravenous route. The protocol was adequate to address the clinical question. The outside final report was not available at the time of this second opinion interpretation. TYPE OF CONSULTATION: Consult on outside imaging study with images submitted through [facility] DATE OF CONSULTATION: 10/13/2019 7:21 AM HISTORY: Abdominal pain. Chronic pancreatitis. Necrotizing pancreatitis. COMPARISON: 07/07/2019 FINDINGS: Chest base: The heart base appears normal. The distal esophagus appears normal. The lung bases are clear. Pancreatitis: Again there are findings of necrotizing pancreatitis. Several fluid collections are again seen. One is seen within the lesser sac abutting the lesser curvature of the stomach and the pancreatic tail, it is the largest and has increased in size since the prior examination measuring 3.6 x 2.6 cm previously 1.3 x 2.0 cm. These collections all contain some debris and have peripheral enhancement. Some smaller collections communicate with this larger collection and are seen adjacent to the splenic flexure of the colon one measuring 2 cm x 2 cm previously 1.5 cm. Some discrete unchanged small collections of fluid are seen adjacent to the pancreatic head which are similar to the prior examination. The largest measures 2.1 x 1.1 cm. Stranding is seen within the omentum related to prior sequela from fat necrosis. There is some free fluid in the pelvis, new from prior. The pancreas is atrophied and contains multiple calcifications consistent with chronic pancreatitis. Vasculature: The splenic vein is occluded. No overt pseudoaneurysm is identified. Multiple splenic collaterals and gastric varices are seen Liver: No focal lesion. The portal and hepatic veins are patent. There is some narrowing of the zoya splenic confluence. Niru graph gallbladder: Normal. Adrenal glands: Normal. Kidneys: Small cyst in the right kidney. Bowel: There is some thickening of the colon at the splenic flexure secondary to inflammation. No obstruction. Pelvis: The uterus and adnexa appear normal. The urinary bladder appears normal. Bones: No suspicious osseous lesion. 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 Treatment consideration and lifestyle modification were discussed with her at great length. She will take Lantus 30 units at bedtime and Humalog 10 units before each meal for management of hyperglycemia. Ms. Lott will check blood sugar consistently before each meal and at bedtime. She will then bring these results for review at the next visit. The patient will return for office reevaluation in 2-3 weeks. PLAN: 1. Take Lantus 30 units at bedtime 2. Take Humalog 10 units before each meal 3. Correctional factor insulin dosed at 1:25 if CBG is > 150 mg/dl 4. Monitor blood sugar QAC/QHS (apply for Dexcom G7) 5. Bring CBG log for review 6. Contact Endocrinology Clinic for low blood sugar events 7. RTC in 2-3 weeks Hypoglycemia PLAN: Consistent CHO diet Rule of 15 Overweight PLAN: 1. Low carb and calorie diet 2. Avoid snack and beverage between meal and at bedtime Thyroid nodule - surveillance and diagnostic workup were discussed with her at some length PLAN: Check thyroid function test Check thyroid ultrasound Further plan based on #2-3 Tobacco use disorder PLAN: Smoking cessation Salome Larsen MD 09/13/2023 documented in this encounter Plan of Treatment Upcoming Encounters Date Type Department Care Team (Late st Contact Info) Description 08/08/2024 3:45 PM KNUCKLE BENDER Office Visit [facility] - Endocrinology [facility] [address] [place] [address] Salome Larsen MD [address] [address] documented as of this encounter Results * US THYROID (09/24/2023 [...] PM - Electronically signed by ??Agustin Corbett M.D., JR: D: ??09/27/2023 3:21 PM T: ??09/27/2023 3:21 PM Report ID: [id number] Reading Location: ??[id number] Procedure Note Agustin Corbett MD - 09/27/2023 [...] PM - Electronically signed by Agustin Corbett M.D., JR: Report ID: [id number] Reading Location: [id number] IMPRESSION: Normal thyroid ultrasound. us Salome Larsen MD [facility] US ORDERABLES Final Result * THYROXINE (T4) FREE (09/17/2023 10:15 AM CDT) T4 FREE 1.0 0.7 - 1.9 ng/dL 09/17/2023 12:42 PM CDT [facility] Blood Venipuncture / Unknown 09/17/2023 10:15 AM CDT 09/17/2023 11:53 AM CDT us Salome Larsen MD CHEMISTRY ORDERABLES Final Resul t Performing Organization Address City/[facility]/ZIP Co de Phone Number [facility] [address] [place] [address] * THYROID STIMULATING HORMONE (TSH) (09/17/2023 10:15 AM CDT) TSH 1.442 0.300 - 5.000 mIU/L 09/17/2023 12:42 PM CDT [facility] Blood Venipuncture / Unknown 09/17/2023 10:15 AM CDT 09/17/2023 11:53 AM CDT us Salome Larsen MD CHEMISTRY ORDERABLES Final Resul t Performing Organization Address City/[facility] Co de Phone Number [facility] [address] [place] [address] documented in this encounter Visit Diagnoses Diagnosis Type 2 diabetes mellitus with diabetic polyneuropathy, with long-term current use of insulin (HCC)- Primary Insulin dose changed (HCC) Thyroid nodule Nontoxic uninodular goiter Tobacco use Tobacco use disorder Hypoglycemia Hypoglycemia, unspecified Overweight Thyroid nodule Nontoxic uninodular goiter documented in this encounter Care Teams Consulting Manager Relationship Specialty Start Date End Date Ari West PA [address] [place] [address] PCP - General Physician Shoe Clerk 07/21/23 Salome Larsen MD [address] [address] Consulting Physician Endocrinology 09/01/23 Wally Sandoval MD [address] [place] [address] Consulting Physician Gastroenterology 09/08/23 documented as of this encounter
--- OUTSIDE RECORDS SUMMARY | 2024-07-02 03:52 | XMS_ITS | Encounter Summary ---
Author Organization [facility] Address [address] [place] [address] Phone Care Team Providers Care Fagot Heater Helper Name Role Phone Ari West Primary Care Provider [phone] Salome Larsen MD Unavailable Wally Sandoval MD Unavailable [phone] Reason for Visit * Reason Onset Date Comments Prior Authorization 09/13/2023 Dexcom Encounter Details Date Type Department Care Team (Late st Contact Info) Description 09/13/2023 Telephone [facility] - Endocrinology - [place] [address] [place] [address] Salome Larsen MD [address] [address] Prior Authorization (Dexcom) Social History Tobacco Use Types Packs/Day Years Used Date Smoking Tobacco: Every Day Cigarettes Smokeless Tobacco: Never Alcohol Use Standard Drinks/Week Comments Not Currently 0 (1 standard drink = 0.6 oz pur e alcohol) Sexually Active Control Partners Comments Yes Male Comments No Sex and Gender Information Value Date Recorded Sex Assigned at Not on file Legal Sex Female 10:57 AM INJECTION WAX MOLDER Gender Identity Not on file Sexual Orientation Not on file documented as of this encounter Miscellaneous Notes * Telephone Encounter - Carmen Nunez RN - 09/13/2023 1:22 PM CDT Prior authorization initiated for Dexccom G7. documented in this encounter Plan of Treatment Upcoming Encounters Date Type Department Care Team (Late st Contact Info) Description 08/08/2024 3:45 PM INJECTION WAX MOLDER Office Visit [facility] - Endocrinology - [place] [address] [place] [address] Salome Larsen MD [address] [address] documented as of this encounter Visit Diagnoses Not on filedocumented in this encounter Care Teams Fagot Heater Helper Relationship Specialty Start Date End Date Ari West PA [address] [place] [address] PCP - General Physician Director Dance 07/21/23 Salome Larsen MD #[address] [address] Consulting Physician Endocrinology 09/01/23 Wally Sandoval MD #2 [place] [address] Consulting Physician Gastroenterology 09/08/23 documented as of this encounter
--- OUTSIDE RECORDS SUMMARY | 2024-07-02 03:54 | XMS_ITS | CONTINUITY OF CARE DOCUMENT ---
Author Name vincent kaur Address Unknown Organization [facility] Office Address [address] [facility] [address] [place] [address] Phone [phone] Care Team Providers Care Appraiser Boats And Marine Name Role Phone Nicole DAVIS, Jazmine Richardson Unavailable TAMARA JHAVERI Unavailable [phone] INSURANCE PROVIDERS Payer name Policy type / Coverage type [place] red green party ID [facility] (MEDICARE) Medicare [id number]
--- OUTSIDE RECORDS SUMMARY | 2024-07-02 03:55 | XMS_ITS | Encounter Summary ---
Author Organization [facility] Address [address] [place] [address] Phone Care Team Providers Care Computer Trainer Name Role Phone Thao Dove MD Primary Care Provider Encounter Details Date Type Department Care Team (Late st Contact Info) Description 10/20/2019 Orders Only [facility] Orthopaedic Surgery [address] [facility] [address]th [place] [address] [place] [id number] Nicolas Wolf MD [address] [facility] [address] [place] [address] Closed nondisplaced fracture of surgical neck of humerus, unspecified fracture morphology, unspecified laterality, initial encounter (Primary Dx) Social History Tobacco Use Types Packs/Day Years Used Date Smoking Tobacco: Every Day Cigarettes 0.5 24 Started: 2000 Smokeless Tobacco: Never Alcohol Use Standard Drinks/Week Comments Not Currently 0 (1 standard drink = 0.6 oz pure alcohol) None for 20 days, pt reports heavy drinker from [id number] Comments No Sex and Gender Information Value Date Recorded Sex Assigned at Not on file Legal Sex Female 6:19 PM CDT Gender Identity Not on file Sexual Orientation Not on file documented as of this encounter Plan of Treatment Not on file documented as of this encounter Visit Diagnoses Diagnosis Closed nondisplaced fracture of surgical neck of humerus, unspecified fracture morphology, unspecified laterality, initial encounter- Primary documented in this encounter Historical Medications * This list may reflect changes made after this encounter. Medication Sig Dispense Quantity Refills Last Filled Start D ate End Date omeprazole (PriLOSEC) 40 mg capsule 10/02/2019 10/24/2019 added in this encounter Care Teams Computer Trainer Relationship Specialty Start Date End Date Thao Dove MD PCP - General 03/14/19 documented as of this encounter
--- OUTSIDE RECORDS SUMMARY | 2024-07-02 03:55 | XMS_ITS | Encounter Summary ---
Author Organization [facility] Address [facility] [place] [address] Care Team Providers Care Technology And Engineering Teacher Name Role Phone Thao Dove MD Primary Care Provider Reason for Referral * Diagnostic Imaging (Routine) - Closed Specialty Diagnoses / Procedures Referred By Janie de dios Referred To Contact Diagnoses Closed nondisplaced fracture of surgical neck of humerus with routine healing, unspecified fracture morphology, unspecified laterality, subsequent encounter Procedures XR Humerus Left 2 or More Views Nicolas Wolf MD Phone: tel: fax: [facility] Referral ID Status Reason Start Date Expiration Date Visits Re quested Visits Authorized [id number] Closed 10/23/2019 05/03/2021 1 1 Reason for Visit * Diagnostic Imaging (Routine) - Closed Specialty Diagnoses / Procedures Referred By Janie de dios Referred To Contact Diagnoses Closed nondisplaced fracture of surgical neck of humerus with routine healing, unspecified fracture morphology, unspecified laterality, subsequent encounter Procedures XR Humerus Left 2 or More Views Nicolas Wolf MD Phone: tel: fax: [facility] Referral ID Status Reason Start Date Expiration Date Visits Re quested Visits Authorized [id number] Closed 10/23/2019 05/03/2021 1 1 Encounter Details Date Type Department Care Team (Late st Contact Info) Description 10/24/2019 8:39 AM CDT - 10/24/2019 11:59 PM CDT Hospital Encounter [facility] [address] [place] [address] Nicolas Wolf MD [address] [facility] [address] [place] [address] Closed nondisplaced fracture of surgical neck of humerus with routine healing, unspecified fracture morphology, unspecified laterality, subsequent encounter Discharge Disposition: Discharge to home or self care Social History Tobacco Use Types Packs/Day Years Used Date Smoking Tobacco: Every Day Cigarettes 0.5 24 Started: 2000 Smokeless Tobacco: Never Alcohol Use Standard Drinks/Week Comments Not Currently 0 (1 standard drink = 0.6 oz pure alcohol) None for 20 days, pt reports heavy drinker from [id number] Comments No Sex and Gender Information Value Date Recorded Sex Assigned at Not on file Legal Sex Female 6:19 PM CDT Gender Identity Not on file Sexual Orientation Not on file documented as of this encounter Medications at Time of Discharge blood glucose diagnostic (Glucocard Shine Test Strips) strip Use as needed 200 each 11 07/11/2019 buPROPion (WELLBUTRIN) 75 mg tablet Take 2 tablets (150 mg total) by mouth 2 (two) times a day 120 tablet 11 10/15/2019 escitalopram (LEXAPRO) 10 mg tabletIndications :Anxiety with Depression Take 10 mg by mouth nightly 0 06/01/2019 hydrOXYzine (ATARAX) 25 mg tablet Take 25 mg by mouth every 8 (eight) hours as needed for anxiety 06/01/2019 insulin glargine (LANTUS) 100 unit/mL injectionIndicati ons:Diabetes Mellitus Inject 25 Units under the skin nightly 22.5 mL 3 07/11/2019 insulin lispro (HumaLOG) 100 unit/mL insulin pen Inject 1-7 Units under the skin 3 (three) times a day with meals 5 units with large meals, plus sliding scale, up to 7 units 18.9 mL 3 07/11/2019 OneTouch Ultra2 Meter misc USE UTD 08/09/2019 pen needle, diabetic 33 gauge x 5/32 needle 1 Device 5 (five) times a day 100 each 11 07/11/2019 pregabalin (LYRICA) 150 mg capsule Take 1 capsule (150 mg total) by mouth 2 (two) times a day 60 capsule 11 10/15/2019 lancets 17 gauge misc 1 Device 5 (five) times a day 200 each 07/11/2019 07/10/2020 documented as of this encounter Discharge Disposition Disposition Code Departure Means Destination Discharge to home or self care documented in this encounter Plan of Treatment Not on file documented as of this encounter Procedures Procedure Name Priority Date/Time Associated Diagnosis Comments XR HUMERUS LEFT 2 OR MORE VIEWS Schedule Routine, Read Routine (OP Routine) 10/24/2019 8:43 AM CDT Closed nondisplaced fracture of surgical neck of humerus with routine healing, unspecified fracture morphology, unspecified laterality, subsequent encounter documented in this encounter Results * XR Humerus Left 2 or More Views (10/24/2019 8:43 AM CDT) Anatomical Region Laterality Modality Upper Extremities, Upper Arm Left Com puted Radiography 10/24/2019 8:53 AM CDT Impressions 10/24/2019 8:53 AM CDT 1. ??Interval reduction and internal fixation of a comminuted, intra-articular, proximal left humerus fracture in near-anatomic alignment. Electronically signed by: Toy Mckinley M.D. Narrative 10/24/2019 8:53 AM CDT EXAMINATION: 1. ?XR HUMERUS LEFT 2 OR MORE VIEWS HISTORY: Left humerus fracture. FINDINGS: 2 views of the left humerus are submitted for review with comparison CT 09/29/2019. Interval reduction and internal fixation of a comminuted, proximal left humerus fracture. Alignment is near-anatomic. Again noted is fracture extension to the inferior medial humeral head suggestive of intra-articular extension. Procedure Note Toy Mckinley MD - 10/24/2019 EXAMINATION: 1. XR HUMERUS LEFT 2 OR MORE VIEWS HISTORY: Left humerus fracture. FINDINGS: 2 views of the left humerus are submitted for review with comparison CT 09/29/2019. Interval reduction and internal fixation of a comminuted, proximal left humerus fracture. Alignment is near-anatomic. Again noted is fracture extension to the inferior medial humeral head suggestive of intra-articular extension. IMPRESSION: 1. Interval reduction and internal fixation of a comminuted, intra-articular, proximal left humerus fracture in near-anatomic alignment. Electronically signed by: Toy Mckinley M.D. Nicolas Wolf MD IMG XR PROCEDURES Final Result documented in this encounter Visit Diagnoses Diagnosis Closed nondisplaced fracture of surgical neck of humerus with routine healing, unspecified fracture morphology, unspecified laterality, subsequent encounter documented in this encounter Care Teams Technology And Engineering Teacher Relationship Specialty Start Date End Date Thao Dove MD PCP - General 03/14/19 documented as of this encounter
--- OUTSIDE RECORDS SUMMARY | 2024-07-02 03:55 | XMS_ITS | Clinical Summary ---
Author Organization [facility] Address [address] [place] [address] Care Team Providers Care Concrete Panel Installer Name Role Phone Thao Dove MD Primary Care Provider Allergies No known active allergies Medications escitalopram (LEXAPRO) 10 mg tabletIndicatio ns:Anxiety with Depression Take 10 mg by mouth nightly 0 06/01/2019 Active hydrOXYzine (ATARAX) 25 mg tablet Take 25 mg by mouth every 8 (eight) hours as needed for anxiety 06/01/2019 Active blood glucose diagnostic (Glucocard Shine Test Strips) strip Use as needed 200 each 07/11/2019 Active pen needle, diabetic 33 gauge x 5/32 needle 1 Device 5 (five) times a day 100 each 07/11/2019 Active insulin glargine (LANTUS) 100 unit/mL injectionIndica tions:Diabetes Mellitus Inject 25 Units under the skin nightly 22.5 mL 3 07/11/2019 Active insulin lispro (HumaLOG) 100 unit/mL insulin pen Inject 1-7 Units under the skin 3 (three) times a day with meals 5 units with large meals, plus sliding scale, up to 7 units 18.9 mL 3 07/11/2019 Active OneTouch Ultra2 Meter misc USE UTD 08/09/2019 Active buPROPion (WELLBUTRIN) 75 mg tablet Take 2 tablets (150 mg total) by mouth 2 (two) times a day 120 tablet 11 10/15/2019 Active pregabalin (LYRICA) 150 mg capsule Take 1 capsule (150 mg total) by mouth 2 (two) times a day 60 capsule 10/15/2019 Active Active Problems Problem Noted Date Diagnosed Date Diabetes 10/13/2019 Assessment & Plan (10/13/2019 4:41 AM CDT): Likely secondary to chronic pancreatitis. Complicated by DKA previously. -Dose-reduced lantus to 18U qhs, lispro at 5U TIDAC, LDSSI Anxiety 10/13/2019 Assessment & Plan (10/13/2019 4:41 AM CDT): Cont lexapro, prn hydroxyzine Humerus fracture 09/27/2019 Assessment & Plan (10/13/2019 4:41 AM CDT): S/p ORIF on 10/01. -on lovenox for DVT ppx. Needed ASA through 10/16. Severe malnutrition (CMS/HCC) 07/08/2019 Necrotizing pancreatitis 05/24/2019 Overview (05/24/2019): Added automatically from request for surgery [id number] Assessment & Plan (10/13/2019 4:42 AM CDT): Initial episode secondary to alcohol. Denies any recent alcohol intake. Now with lipase 1708, increased fluid collections on CTAP. Possibly triggered by cholelithiasis, though LFTs are not abnormal. -NPO, IVF, pain control -CT uploaded for radiology review -GI consult placed Fever 03/16/2019 Assessment & Plan (03/21/2019 10:39 AM CDT): Febrile to 101.8 F overnight 03/15-03/16, no clear evidence of new infectious source on exam or history this morning. CXR this morning unremarkable, UA and blood cultures pending. MR Abdomen from outside hospital with interval increase in size of pancreatic fluid collections, some concern for cholangitis too. No leukocytosis, no worsening of her abdominal pain or GI symptoms. -03/[address] Abdomen and Pelvis w/contrast to evaluate pancreatic fluid collections as source for new fever, demonstrated interval increase in size of peripancreatic fluid collections, +/- cholangitis, focal colitis at splenic flexure abutting necrotic pancreatic fluid -03/16 AM Started IV Cefe/Flagyl AM-> broadened to meropenem PM 03/16 due to re- fever, BCx NGTD, UA w/out infection -03/17 IR placed drain, fluid gram stain without visible organisms, only rare PMNs, culture no growth -03/18 drain with >250cc brown fluid, CTM. Per IR, will keep drain in place until ~<15cc output/day, can discharge with this in place and follow up as outpatient (scheduled 03/27 at 9am) -03/19 transitioned to PO flagyl 500 q8h, levaquin 750mg q24h -03/20 tolerating oral ABx, no fever, drain with 125cc brown fluid, will discharge w/ drain. ID consulted regarding antibiotic duration -03/21 will d/c home with flagyl 500 q8h, cipro 500 q12h until 03/27 per ID recs; no fever since PM 03/16 Assessment & Plan (03/16/2019 10:33 AM CDT): Febrile to 101.8 F overnight, no clear evidence of new infectious source on exam or history this morning. CXR this morning unremarkable, UA and blood cultures pending. MR Abdomen from outside hospital with interval increase in size of pancreatic fluid collections, some concern for cholangitis too. No leukocytosis, no worsening of her abdominal pain or GI symptoms. -Spoke with biliary service this morning, recommended CT Abdomen and Pelvis w/contrast to evaluate pancreatic fluid collections as source for new fever -NPO pending possible procedures following results of scan -Started IV Cefe/Flagyl this morning -f/u infectious workup ETOH abuse 03/15/2019 Assessment & Plan (03/17/2019 6:57 AM CDT): Continues to drink 1/5 of Vodka per day. Previously attempted outpatient rehab but is interested in inpatient rehab. Received ativan while at [facility]. -Patient without etoh in 5 days, likely no need to etoh withdrawal scale at this time -Thiamine 100 mg, folic acid 1 mg every day -Social work consulted for rehab/ abstinence resources Assessment & Plan (03/15/2019 2:18 PM CDT): Continues to drink 1/5 of Vodka per day. Previously attempted outpatient rehab but is interested in inpatient rehab. Received ativan while at [facility]. 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 On initial presentation she was febrile and her fever has resolved since drainage. However her fluid is culture negative. It is hard to know if she had necrotizing infection versus sterile necrotizing fluid collection. She appears to be much improved since addition of her drain. ID is consulted with question of antibiotic coverage for her condition. Given this is intra-abdominal infection would favor transition from levofloxacin to ciprofloxacin (which has better coverage of aerobic gram negative bacilli). She can continue to metronidazole. Duration would be 7-10 days (she has already received 3 days of antibiotics since placement of drain). Recommendations: -Transition levofloxacin to ciprofloxacin 500 mg q12h - Please obtain ECG for QTc monitoring with quinolone use (no ECG seen listed in EMR) - Cont metronidazole 500 mg q8h - Can cont antibiotics until 03/27 - If not done, recommend screening for HIV and Hep C Assessment & Plan (03/21/2019 10:38 AM CDT): -Consulted GI-Biliary. Massive hepatomegaly and current drinking habits are the first actionable target. Given new onset fevers overnight as above, ordred CTAP w/contrast per biliary recs to evaluate pancreatic fluid collections and plan possible interventions -Tylenol and Oxycodone 5 mg q6h prn for pain control, bowel regimen in place -Aggressively hydrated -03/16 Fever to 101.8, started on flagyl/cefe, broadened to hrelinda in PM given re- fever -03/[address] in place drainage of brown fluid; no organisms on gram stain, few PMNs, culture NG -03/18 Advanced to full low fat diet, discontinued fluids given adequate PO intake -03/19 Transitioned to oral flagyl 500 q8h, levaquin 750 q24h; no fever -03/20 Consulted ID regarding duration of antibiotic treatment; last 24 hrs 125mL brown fluid drained, updated oxycodone to 5mg q8h PRN (from q6h PRN) -03/21 ID provided recs, will send home on cipro 500 q12h (EKG w/ QTc 463), metronidazole 500 q12h until 03/27 Assessment & Plan (03/16/2019 10:34 AM CDT): -Consulted GI-Biliary. Massive hepatomegaly and current drinking habits are the first actionable target. Given new onset fevers overnight as above, ordred CTAP w/contrast per biliary recs to evaluate pancreatic fluid collections and plan possible interventions -Tylenol and Oxycodone 5 mg q6h prn for pain control -On NaCl 100 cc/hr -Was tolerating CLD, now NPO for possible procedures Hyperglycemia 03/15/2019 Assessment & Plan (03/17/2019 6:56 AM CDT): Patient reports having blood sugars in the 300s while admitted at [place]. Blood sugar here is 95 but in the setting of poor PO intake. -A1c 5.3 -Monitor sugars Assessment & Plan (03/15/2019 12:24 PM CDT): Patient reports having blood sugars in the 300s while admitted at [place]. Blood sugar here is 95 but in the setting of poor PO intake. -A1c 5.3 -Monitor sugars History of DVT (deep vein thrombosis) 03/15/2019 Assessment & Plan (03/20/2019 3:55 PM CDT): Reported on paperwork from [facility], however patient has no recall of having prior DVT and was not on any outpatient anticoagulation. -On lovenox for ppx Assessment & Plan (03/15/2019 3:34 AM CDT): -On lovenox Immunizations Name Administration Dates Next Due Td, adsorbed 06/14/2015 Surgical History Surgery Date Site/Laterality Comments SECTION IMAGE GUIDED DRAINAGE PERITO ALCON OR RETROPERITONEAL FLUID COLLECTION 03/17/2019 N/A ABSCESS CATHETER INJECTION 03/27/2019 N/A ABSCESS CATHETER INJECTION 04/07/2019 N/A ABSCESS CATHETER INJECTION 04/19/2019 N/A ABSCESS CATHETER INJECTION 05/05/2019 N/A ABSCESS CATHETER INJECTION 05/26/2019 N/A ABSCESS CATHETER INJECTION 06/16/2019 N/A ERCP 06/14/2019 - 07/14/2019 Medical History Medical History Date Comments ETOH abuse Hypertension CORRECTED. NO LO NGER ON MEDS. PONV (postoperative nausea and vomiting) Anxiety Pancreatitis Fistula r/t necrotizing pancreatitis Tooth decay REPORTS [place] Diabetes mellitus type I (HCC) Family History Medical History Relation Name Comments Blood Clot Father Diabetes Mother Heart attack Mother Heart failure Mother Hypertension Mother Stroke Paternal Grandmother Relation Name Status Comments Father Alive Mother Alive Paternal Grandmother Social History Tobacco Use Types Packs/Day Years Used Date Smoking Tobacco: Every Day Cigarettes 0.5 24 Started: 2000 Smokeless Tobacco: Never Alcohol Use Standard Drinks/Week Comments Not Currently 0 (1 standard drink = 0.6 oz pure alcohol) None for 20 days, pt reports heavy drinker from [id number] Comments No Sex and Gender Information Value Date Recorded Sex Assigned at Not on file Legal Sex Female 6:19 PM CDT Gender Identity Not on file Sexual Orientation Not on file Obstetrics History Para Term AB IAB SAB Ectopic Multiple Livin g Live Births 4 3 3 1 1 3 3 Date Outcome GA Total Labor Labor/2nd/3rd Weight Sex Type Anes PTL Carolin A1 A5 Name Clin Term CS-Un spec Living Term CS-Un spec Living Term CS-Un spec Living SAB Last Filed Vital Signs Vital Sign Reading Time Taken Comments Blood Pressure 105/61 10/15/2019 3:15 PM CDT Pulse 89 10/15/2019 3:15 PM CDT Temperature 36.7 ??C (98.1 ??F) 10/15/2019 12:18 PM C DT Respiratory Rate 18 10/15/2019 12:18 PM CDT Oxygen Saturation 96% 10/15/2019 3:15 PM CDT Inhaled Oxygen Concentration - - Weight 65.8 kg (145 lb) 11/21/2019 8:41 AM CDT Height 160 cm (5' 3 ) 11/21/2019 8:41 AM CDT Body Mass Index 25.69 11/21/2019 8:41 AM CDT Plan of Treatment Not on file Medical Devices Implanted Type Area Tire Design Engineer Device Identifier Shelf Expiration Date Model / Serial / Lot Graft Bone Fibula Shaft Allograft Frozen 60mmx5+ Mm - [id number] - [id number] Implanted:Qty: 1 on 10/02/2019 by Nicolas Wolf MD at [facility] Bone Left: Humerus Musculoskeletal Transplant 07/29/2023 [id number] / [id number] / 0 Synthes 241.901 Lcp Combi Philos [id number] 3 Hole Shaft Lock Compression - [id number] Implanted:Qty: 1 on 10/02/2019 by Nicolas Wolf MD at [facility] Left: Humerus Synthes I 241.901 / / Synthes 204.828 3.5mm 6mm 28mm 2.5mm Self Tap Small Hexagonal Socket Low Profile - [id number] Implanted:Qty: 3 on 10/02/2019 by Nicolas Wolf MD at [facility] Left: Humerus Synthes I 204.828 / / Synthes 212.136 3.5mm 2.9mm 46mm Self Tap Lock Stardrive Conical Head T15 Full - [id number] Implanted:Qty: 2 on 10/02/2019 by Nicolas Wolf MD at [facility] Left: Humerus Synthes I 212.136 / / Synthes 212.115 3.5mm 2.9mm 36mm Self Tap Lock Stardrive Conical Head T15 Full - [id number] Implanted:Qty: 2 on 10/02/2019 by Nicolas Wolf MD at [facility] Left: Humerus Synthes I 212.115 / / Synthes 212.116 3.5mm 2.9mm 38mm Self Tap Lock Stardrive Conical Head T15 Full - [id number] Implanted:Qty: 1 on 10/02/2019 by Nicolas Wolf MD at [facility] Left: Humerus Synthes I 212.116 / / Synthes 212.117 3.5mm 2.9mm 40mm Self Tap Lock Stardrive Conical Head T15 Full - [id number] Implanted:Qty: 2 on 10/02/2019 by Nicolas Wolf MD at [facility] Left: Humerus Synthes I 212.117 / / Synthes 212.118 3.5mm 2.9mm 42mm Self Tap Lock Stardrive Conical Head Full Thread - [id number] Implanted:Qty: 1 on 10/02/2019 by Nicolas Wolf MD at [facility] Left: Humerus Synthes I 212.118 / / Synthes 212.113 3.5mm 2.9mm 34mm Self Tap Lock Stardrive Conical Head Pelvis T15 - [id number] Implanted:Qty: 1 on 10/02/2019 by Nicolas Wolf MD at [facility] Left: Humerus Synthes I 212.113 / / Insurance YOMI BUCK [id number] YOMI BUCK [id number] Advance Directives For more information, please contact: [phone] * Full Code (Latest Code Status on File) Date Activated Date Inactivated Comments 10/13/2019 4:24 AM 10/15/2019 9:14 PM * Full Code Date Activated Date Inactivated Comments 10/02/2019 12:52 PM 10/02/2019 7:57 PM * Full Code Date Activated Date Inactivated Comments 07/07/2019 4:57 PM 07/11/2019 10:53 PM * Full Code Date Activated Date Inactivated Comments 06/16/2019 12:03 PM 06/16/2019 6:51 PM * Full Code Date Activated Date Inactivated Comments 06/16/2019 6:58 AM 06/16/2019 10:28 AM Care Teams Concrete Panel Installer Relationship Specialty Start Date End Date Thao Dove MD PCP - General 03/14/19
--- OUTSIDE RECORDS SUMMARY | 2024-07-02 03:55 | XMS_ITS | Referral Summary ---
Author Organization [facility] Address [address] [place] [address] Care Team Providers Care Fancy Stitcher Name Role Phone Thao Dove MD Primary [...] (05/24/2019): Added automatically from request for surgery [id number] Assessment & Plan (10/13/2019 4:42 AM CDT): [...] in inpatient rehab. Received ativan while at [facility]. -Patient without etoh in 5 days, likely no need to etoh withdrawal scale at this time -Thiamine 100 mg, folic acid 1 mg every day -Social work consulted for rehab/ abstinence resources Assessment & Plan (03/15/2019 2:18 PM CDT): Continues to drink 1/5 of Vodka per day. Previously attempted outpatient rehab but is interested in inpatient rehab. Received ativan while at [facility]. -Patient without etoh in 5 [...] to 101.8, started on flagyl/cefe, broadened to herlinda in PM given re- fever -03/17 Percutaneous [...] sugars in the 300s while admitted at [place]. Blood sugar here is 95 but in the setting of poor PO intake. -A1c 5.3 -Monitor sugars Assessment & Plan (03/15/2019 12:24 PM CDT): Patient reports having blood sugars in the 300s while admitted at [place]. Blood sugar here is 95 but in the setting of poor PO intake. -A1c 5.3 -Monitor sugars History of DVT (deep vein thrombosis) 03/15/2019 Assessment & Plan (03/20/2019 3:55 PM CDT): [facility], however patient has no recall of having prior DVT and was not on any outpatient anticoagulation. -On lovenox for ppx Assessment & Plan (03/15/2019 3:34 AM CDT): -On lovenox Immunizations Name Administration Dates Next Due Td, adsorbed 06/14/2015 Social History Tobacco Use Types Packs/Day Years Used Date Smoking Tobacco: Every Day Cigarettes 0.5 24 Started: 2000 Smokeless Tobacco: Never Alcohol Use Standard Drinks/Week Comments Not Currently 0 (1 standard drink = 0.6 oz pure alcohol) None for 20 days, pt reports heavy drinker from 1406-8927 Comments No Sex and Gender Information Value [...] on file Medical Devices Implanted Type Area Culinary Artist Device Identifier Shelf Expiration Date Model / Serial / Lot Graft Bone Fibula Shaft Allograft Frozen 60mmx5+ Mm - [id number] - [id number] Implanted:Qty: 1 on 10/02/2019 by Nicolas Wolf MD at [facility] Bone Left: Humerus Musculoskeletal Transplant 07/29/2023 [id number] / [id number] / 0 Synthes 241.901 Lcp Combi Philos [id number] 3 Hole Shaft Lock Compression - [id number] Implanted:Qty: 1 on 10/02/2019 by Nicolas Wolf MD at [facility] Left: Humerus Synthes I 241.901 / / Synthes 204.828 3.5mm 6mm 28mm 2.5mm Self Tap Small Hexagonal Socket Low Profile - [id number] Implanted:Qty: 3 on 10/02/2019 by Nicolas Wolf MD at [facility] Left: Humerus Synthes I 204.828 / / Synthes 212.136 3.5mm 2.9mm 46mm Self Tap Lock Stardrive Conical Head T15 Full - [id number] Implanted:Qty: 2 on 10/02/2019 by Nicolas Wolf MD at [facility] Left: Humerus Synthes I 212.136 / / Synthes 212.115 3.5mm 2.9mm 36mm Self Tap Lock Stardrive Conical Head T15 Full - [id number] Implanted:Qty: 2 on 10/02/2019 by Nicolas Wolf MD at [facility] Left: Humerus Synthes I 212.115 / / Synthes 212.116 3.5mm 2.9mm 38mm Self Tap Lock Stardrive Conical Head T15 Full - [id number] Implanted:Qty: 1 on 10/02/2019 by Nicolas Wolf MD at [facility] Left: Humerus Synthes I 212.116 / / Synthes 212.117 3.5mm 2.9mm 40mm Self Tap Lock Stardrive Conical Head T15 Full - [id number] Implanted:Qty: 2 on 10/02/2019 by Nicolas Wolf MD at [facility] Left: Humerus Synthes I 212.117 / / Synthes 212.118 3.5mm 2.9mm 42mm Self Tap Lock Stardrive Conical Head Full Thread - [id number] Implanted:Qty: 1 on 10/02/2019 by Nicolas Wolf MD at [facility] Left: Humerus Synthes I 212.118 / / Synthes 212.113 3.5mm 2.9mm 34mm Self Tap Lock Stardrive Conical Head Pelvis T15 - [id number] Implanted:Qty: 1 on 10/02/2019 by Nicolas Wolf MD at [facility] Left: Humerus Synthes I 212.113 / / Insurance [facility]AN [facility] Advance Directives For more information, please contact: [phone] * Full Code (Latest Code Status on [...] 6:58 AM 06/16/2019 10:28 AM Care Teams Fancy Stitcher Relationship Specialty Start Date End Date Thao Dove MD PCP - General 03/14/19
--- OUTSIDE RECORDS SUMMARY | 2024-07-02 03:55 | XMS_ITS | Encounter Summary ---
Author Organization [facility] Address [address] [place] [address] Care Team Providers Care Surgical Instrument Mechanic Name Role Phone Thao Dove MD Primary Care Provider Encounter Details Date Type Department Care Team (Late st Contact Info) Description 09/19/2019 Telephone [facility] [address] [facility] [address] [place] [address] Neela Lechuga NP [address] [facility] [address] [place] [address] Social History Tobacco Use Types Packs/Day Years Used Date Smoking Tobacco: Every Day Cigarettes Smokeless Tobacco: Never Alcohol Use Standard Drinks/Week Comments Not Currently 0 (1 standard drink = 0.6 oz pur e alcohol) None for 20 days Comments No Sex and Gender Information Value Date Recorded Sex Assigned at Not on file Legal Sex Female 6:19 PM CDT Gender Identity Not on file Sexual Orientation Not on file documented as of this encounter Miscellaneous Notes * Telephone Encounter - Neela Lechuga NP - 09/19/2019 11:45 AM CDT I attempted to call patient for televisit and it went straight to voicemail. Mail box was full, will attempt to call again this afternoon. documented in this encounter Plan of Treatment Not on file documented as of this encounter Visit Diagnoses Not on filedocumented in this encounter Care Teams Surgical Instrument Mechanic Relationship Specialty Start Date End Date Thao Dove MD PCP - General 03/14/19 documented as of this encounter
--- OUTSIDE RECORDS SUMMARY | 2024-07-02 03:55 | XMS_ITS | Encounter Summary ---
Author Organization [facility] Address [address] [place] [address] Phone Care Team Providers Care Museum Director Name Role Phone Thao Dove MD Primary Care Provider Reason for Referral * Diagnostic Imaging (Routine) - Closed Specialty Diagnoses / Procedures Referred By Janie t Referred To Contact Diagnoses Closed nondisplaced fracture of surgical neck of humerus with routine healing, unspecified fracture morphology, unspecified laterality, subsequent encounter Procedures XR Humerus Left 2 or More Views Nicolas Wolf MD Phone: tel: fax: [facility] Referral ID Status Reason Start Date Expiration Date Visits Re quested Visits Authorized [id number] Closed 10/23/2019 05/03/2021 1 1 Reason for Visit * Reason Comments Fracture * Orthopedic (Routine) - Canceled Specialty Diagnoses / Procedures Referred By Contac t Referred To Contact Orthopedic Surgery Diagnoses Traumatic closed nondisplaced fracture of surgical neck of humerus, unspecified laterality, initial encounter Nicolas Wolf MD Phone: tel: fax: Nicolas Wolf MD [address] [facility] [address] [place] [address] Phone: tel: fax: Referral ID Status Reason Start Date Expiration Date Visits Requested Visits Authorized [id number] Canceled Specialty Services Required 09/28/2019 01/28/2020 4 4 Encounter Details Date Type Department Care Team (Late st Contact Info) Description 10/24/2019 8:50 AM CDT Office Visit [facility] Orthopaedic Surgery [address] [facility] 6th [place] [address] [place] [address] Nicolas Wolf MD [address] [facility] [address] [place] [address] Closed nondisplaced fracture of surgical neck of humerus with routine healing, unspecified fracture morphology, unspecified laterality, subsequent encounter (Primary Dx) Social History Tobacco Use Types Packs/Day Years Used Date Smoking Tobacco: Every Day Cigarettes 0.5 24 Started: 2000 Smokeless Tobacco: Never Alcohol Use Standard Drinks/Week Comments Not Currently 0 (1 standard drink = 0.6 oz pure alcohol) None for 20 days, pt reports heavy drinker from 7964-3627 Comments No Sex and Gender Information Value Date Recorded Sex Assigned at Not on file Legal Sex Female 6:19 PM CDT Gender Identity Not on file Sexual Orientation Not on file documented as of this encounter Progress Notes * Nicolas Wolf MD - 10/24/2019 8:50 AM CDT Status post open reduction internal fixation left proximal humerus fracture 02 October 2019. Subjective: Patient is doing okay. She has no specific complaints. She has been coming on sling doing some gentle range of motion. Pain is well controlled Objective: Patient is healthy-appearing and well-groomed, in no apparent distress. Patient is oriented to time, place, and person. Incision healing well, no drainage or erythema; no deformity or crepitation. Range of motion: diminished range with pain. Passive forward flexion 0-80 degrees Arm warm and well-perfused, capillary refill <2 seconds. Wrist/Finger flexion/extension and interosseous strength 5/5. Radial/median/ulnar/axillary nerve sensation normal. Imaging Left proximal humerus fracture healing well in proper alignment. No sign of hardware loosening or breakage. No signs of glenohumeral joint perforation any the screws Assessment: Ms. Lott is a 39 y.o. female who sustained a left side proximal humerus fracture status postopORIF now 3 weeks postop. Plan: 1) NWB. 2) Return to clinic in 3 months with repeat radiographs left shoulder 3) Pain management: Tylenol 4) Splinting/bracing/casting: Wean sling 5) Physical therapy: Therapy prescription provided 6) Bone health: None 7) Call with any questions. 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 Electronically signed by: Toy Mckinley M.D. Jamesmónica Alejandro Wolf MD IMG XR PROCEDURES Final Result documented in this encounter Visit Diagnoses Diagnosis Closed nondisplaced fracture of surgical neck of humerus with routine healing, unspecified fracture morphology, unspecified laterality, subsequent encounter- Primary Closed nondisplaced fracture of surgical neck of humerus with routine healing, unspecified fracture morphology, unspecified laterality, subsequent encounter documented in this encounter Discontinued Medications Medication Sig Discontinue Reason Start Date End Da te aspirin 325 mg enteric coated tablet Take 1 tablet (325 mg total) by mouth 2 (two) times a day for 14 days For blood clot prevention. Take with food. 10/02/2019 10/24/[address] (NexIUM) 40 mg capsule Take 1 capsule (40 mg total) by mouth daily before breakfast To protect stomach while taking aspirin. 10/02/2019 10/24/2019 omeprazole (PriLOSEC) 40 mg capsule 10/02/2019 10/24/2019 documented as of this encounter Care Teams Museum Director Relationship Specialty Start Date End Date Thao Dove MD PCP - General 03/14/19 documented as of this encounter
--- OUTSIDE RECORDS SUMMARY | 2024-07-02 03:55 | XMS_ITS | Encounter Summary ---
Author Organization [facility] Healthcare Address [address] [place] [address] Care Team Providers Care Form Tamping Machine Operator Name Role Phone Thao Dove MD Primary Care Provider Encounter Details Date Type Department Care Team (Late st Contact Info) Description 09/29/2019 Documentation [facility] [address] [place] [address] Social History Tobacco Use Types Packs/Day Years Used Date Smoking Tobacco: Every Day Cigarettes 0.5 24 Started: 2000 Smokeless Tobacco: Never Alcohol Use Standard Drinks/Week Comments Not Currently 0 (1 standard drink = 0.6 oz pure alcohol) None for 20 days, pt reports heavy drinker from 3532-3564 Comments No Sex and Gender Information Value Date Recorded Sex Assigned at Not on file Legal Sex Female 6:19 PM CDT Gender Identity Not on file Sexual Orientation Not on file documented as of this encounter Last Filed Vital Signs Vital Sign Reading Time Taken Comments Blood Pressure - - Pulse - - Temperature - - Respiratory Rate - - Oxygen Saturation - - Inhaled Oxygen Concentration - - Weight 63.5 kg (140 lb) 09/29/2019 3:31 PM CDT Height 160 cm (5' 3 ) 09/29/2019 3:31 PM CDT Body Mass Index 24.8 09/29/2019 3:31 PM CDT documented in this encounter Consult Notes * Alma Coombs RD - 09/29/2019 3:18 PM CDT Pre-Operative Nutritional Assessment Reason for Assessment: Encounter Date: 09/29/19 3:37 PM Patient is a 39 y.o. female being evaluated in the [facility] Pre[facility]Operative Assessment [facility] Planning for a(n) OPEN REDUCTION INTERNAL FIXATION - HUMERUS with Dr. Wolf on 10/02/19. Objective Past Medical History: Diagnosis Date ??? Anxiety ??? ETOH abuse ??? Fistula r/t necrotizing pancreatitis ??? Hypertension CORRECTED. NO LONGER ON MEDS. ??? Pancreatitis ??? PONV (postoperative nausea and vomiting) ??? Tooth decay REPORTS POOR DENTURA Past Surgical History: Procedure Laterality Date ??? ABSCESS CATHETER INJECTION N/A 03/27/2019 ??? ABSCESS CATHETER INJECTION N/A 04/07/2019 ??? ABSCESS CATHETER INJECTION N/A 04/19/2019 ??? ABSCESS CATHETER INJECTION N/A 05/05/2019 ??? ABSCESS CATHETER INJECTION N/A 05/26/2019 ??? ABSCESS CATHETER INJECTION N/A 06/16/2019 ??? SECTION ??? ERCP 06/2019 ??? IMAGE GUIDED DRAINAGE PERITONEAL OR RETROPERITONEAL FLUID COLLECTION N/A 03/17/2019 HOME MEDICATIONS : acetaminophen-codeine (TYLENOL with CODEINE #3) 300-30 mg per tablet blood glucose diagnostic (Glucocard Shine Test Strips) strip escitalopram (LEXAPRO) 10 mg tablet hydrOXYzine (ATARAX) 25 mg tablet ibuprofen (ADVIL,MOTRIN) 600 mg tablet insulin glargine (LANTUS) 100 unit/mL injection insulin lispro (HumaLOG) 100 unit/mL insulin pen lancets 17 gauge misc OneTouch Ultra2 Meter misc pen needle, diabetic 33 gauge x 5/32 needle No Known Allergies Assessment: Pertinent Labs: Lab Results Component Value Date CHOL 196 07/07/2019 HDL 27 (L) 07/07/2019 TRIG 209 (H) 07/07/2019 CREATININE 0.46 (L) 07/10/2019 BUNSER 7 (L) 07/10/2019 SODIUM 139 07/10/2019 POTASSIUM 4.0 07/10/2019 PHOS 2.7 07/07/2019 ALBUMIN 3.3 (L) 07/07/2019 GLUCOSE 282 (H) 07/11/2019 HGBA1C 14.1 (H) 07/07/2019 ALKPHOS 111 07/07/2019 ALT 13 07/07/2019 AST 18 07/07/2019 LIPASE 260 (H) 07/07/2019 Anthrometrics: Height: 160 cm (5' 3 ) 5' 3 Weight: 63.5 kg (140 lb) 140 lbs patient reported Body mass index is 24.8 kg/m??. [place] body weight: 52.4 kg (115 lb 8.3 oz) Adjusted ideal body weight: 56.8 kg (125 lb 5 oz) UBW: 210 lbs (last in December 2018) Weight changes: Patient down from 210 lbs to 136 lbs in 6 months (35% BW), now stabilizing and up to about 140 lbs in past 3 months Wt Readings from Last 10 Encounters: 09/28/19 63.5 kg (140 lb) 09/29/19 63.5 kg (140 lb) 07/07/19 61.9 kg (136 lb 6.4 oz) 06/16/19 65.8 kg (145 lb) 05/24/19 65.8 kg (145 lb 1.6 oz) 03/15/19 81.8 kg (180 lb 4.8 oz) Gastrointestinal issues or complaints: nausea/vomiting with pancreatitis and anesthesia, poor dentition Nutritional Diagnosis: Nutrition Diagnosis 1: Increased nutrient needs (protein) Related to: Wounds Evidenced by: Patient interview Nutrition Needs Calculations: Calculated Energy Needs Using Equations Weight Used for Equation Calculations (RD Determined): 63.5 kg (140 lb) Weight: 63.5 kg (140 lb) Height: 160 cm (5' 3 ) Maryam Zaragoza Equation (Overweight or Obese Patients): 1289 Equation Chosen to Use by RD: Lidia Topete Activity Factor: 1.3 Total Energy Needs: 1675.7 kcal Total Energy Needs + Fever Factor: 1675.7 Estimated Protein Needs Type of Weight Used for Estimated Protein : [place] Protein Needs Based on g/k.3(67g protein) Total Protein Estimated Needs (gm): 0 Kcal/kg Type of Weight Used for Estimated Kcals: [place] Kcal/k(2292-3290 kcal) Estimated Fluid Needs Type of Weight Used for Estimated Fluid Needs: [place] Fluid Needs Based on : 1 ml/kcal(1550 mL fluids) Total Fluid Estimated Needs: 0 Impression: Spoke with patient to follow up on Nutrition Screen score of 3. Hx of pancreatitis, poor dentition and hyperglycemia. Admission in June for DKA and started on insulin regimen. Recent shoulder injury resulting in left proximal humerus fracture with dislocation which is causing significant pain. Scheduled for open reduction internal fixation on Wednesday. Per patient, she initially lost a lot of weight due to pancreatitis and then DKA. She dropped from UBW of 210 lbs to 136 lbs in 6 months. SinceJune, her weight has stabilized and she is now around 140 lbs. Denies issues with n/v/d/c. She is on an insulin regimen of 25U Lantus at night, and 5U + SSI with meals. Blood sugars have been running 90- 129. She has been eating 3 meals per day and snacking some in between on fruit (strawberries,oranges), nuts and sunflower seeds. She endorses poor dentition but says she can eat most foods. Nuts are difficult for her to chew, but she likes them a lot so she keeps eating them here and there. Fluids include diet soda, water, Bang energy drinks. Diet recall: oatmeal and toast, veggie pizza, salad, small serving of noodles with mallorie sauce and chicken. Current diet is adequate. ASPEN Malnutrition Assessment: Chronic Illness/Injury Mild/Moderate Weight Loss: 20% in 12 months Body Fat: Mild/Moderate(per patient report) Muscle Mass: Mild/Moderate(per patient report) Patient Meets Criteria for Moderate Malnutrition: Yes Nutrition Focused Physical Exam: Intervention and Monitoring: Goals: Adequate nutrition to meet estimated needs by next assessment Interventions: Education, nutrition, Encouragement, Meals and snacks Monitoring and Evaluation: Food preferences, PO intake, Plan of care, Labs Reviewed pre-surgical nutritional needs including increased intake of foods rich in zinc, vitamin C, omega-3 fatty acids, and protein. Recommended consisten meals and snacks with protein source at each. Reviewed protein rich foods with patient and encouraged to select mostly soft items if best tolerated. Discussed handout w/ nutritional recommendations for surgery and RD phone number. Recommend regular blood glucose monitoring and compliance w/ blood sugar management regimen as it relates to surgery. Expect adherence to recommendations to be GOOD. RD will follow as needed post-operatively. Alma Coombs, , RDN, LD Clinical Dietitian, [facility] [phone] documented in this encounter Plan of Treatment Not on file documented as of this encounter Visit Diagnoses Not on filedocumented in this encounter Care Teams Form Tamping Machine Operator Relationship Specialty Start Date End Date Thao Dove MD PCP - General 03/14/19 documented as of this encounter
--- OUTSIDE RECORDS SUMMARY | 2024-07-02 03:55 | XMS_ITS | Encounter Summary ---
Author Organization [facility] Address [address] [place] [address] Phone Care Team Providers Care Securities Clerk Name Role Phone Thao Dove MD Primary Care Provider Encounter Details Date Type Department Care Team (Late st Contact Info) Description 09/04/2019 Telephone [facility] 8th [place] [address] [place] [address] Toy Higuera MD [address] [place] [address] Social History Tobacco Use Types Packs/Day Years [...] encounter Miscellaneous Notes * Telephone Encounter - Vera Banuelos, A - 09/04/2019 11:07 AM CDT Called and left msg for pt at [phone] Higuera on 09/19/19 was cancelled due toCOVID-19 protocol and expect a phone call from one our BEAD WIRE TAPER's within the next few days to check on health status and reschedule appt. documented in this encounter Plan of Treatment Not on file documented as of this encounter Visit Diagnoses Not on filedocumented in this encounter Care Teams Securities Clerk Relationship Specialty Start Date End Date Thao Dove MD PCP - General 03/14/19 documented as of this encounter
--- OUTSIDE RECORDS SUMMARY | 2024-07-02 03:55 | XMS_ITS | Encounter Summary ---
Author Organization [facility] Address [address] [place] [id number] Care Team Providers Care Press Tender Star Signal Name Role Phone Thao Dove MD Primary Care Provider Reason for Referral * Diagnostic Imaging (Routine) - Closed Specialty Diagnoses / Procedures Referred By Janie de dios Referred To Contact Diagnoses Closed nondisplaced fracture of surgical neck of humerus, unspecified fracture morphology, unspecified laterality, initial encounter Procedures XR Shoulder Left 2 or More Views Nicolas Wolf MD Phone: tel: fax: [facility] Referral ID Status Reason Start Date Expiration Date Visits Re quested Visits Authorized [id number] Closed 09/28/2019 04/08/2021 1 1 Reason for Visit * Diagnostic Imaging (Routine) - Closed Specialty Diagnoses / Procedures Referred By Janie de dios Referred To Contact Diagnoses Closed nondisplaced fracture of surgical neck of humerus, unspecified fracture morphology, unspecified laterality, initial encounter Procedures XR Shoulder Left 2 or More Views Nicolas Wolf MD Phone: tel: fax: [facility] Referral ID Status Reason Start Date Expiration Date Visits Re quested Visits Authorized [id number] Closed 09/28/2019 04/08/2021 1 1 Encounter Details Date Type Department Care Team (Late st Contact Info) Description 09/28/2019 10:49 AM CDT - 09/28/2019 11:59 PM CDT Hospital Encounter [facility] [address] [place] [address] Nicolas Wolf MD [address] [facility] [address] [place] [address] Closed nondisplaced fracture of surgical neck of humerus, unspecified fracture morphology, unspecified laterality, initial encounter Discharge Disposition: Discharge to home or [...] strip Use as needed 200 each 07/11/2019 escitalopram (LEXAPRO) 10 mg tabletIndication s:Anxiety with Depression Take 10 mg by mouth nightly 0 06/01/2019 hydrOXYzine (ATARAX) 25 mg tablet Take 25 mg by mouth every 8 (eight) hours as needed for anxiety 06/01/2019 insulin glargine (LANTUS) 100 unit/mL injectionIndicat ions:Diabetes Mellitus Inject 25 Units under the skin [...] (five) times a day 100 each 07/11/2019 lancets 17 gauge misc 1 Device 5 (five) times a day 200 each 07/11/2019 1 acetaminophen-co deine (TYLENOL with CODEINE #3) 300-30 mg per tablet Take 1 tablet by mouth every 6 (six) hours as needed for pain 28 tablet 09/28/2019 0 aspirin 325 mg enteric coated tablet Take 1 tablet (325 mg total) by mouth 2 (two) times a day for 14 days For blood clot prevention. Take with food. 28 tablet 10/02/[address] (NexIUM) 40 mg capsule Take 1 capsule (40 mg total) by mouth daily before breakfast To protect stomach while taking aspirin. 14 capsule 10/02/2019 0 HYDROcodone-acet aminophen (NORCO) 5-325 mg per tabletIndication s:Pain Take 1-2 tablets by mouth every 4 (four) hours as needed for pain 40 tablet 10/02/2019 0 ibuprofen (ADVIL,MOTRIN) 600 mg tablet TK 1 T PO TID 09/25/2019 10/02/19 2 0 documented as of this encounter Discharge Disposition Disposition Code Departure Means Destination Discharge to home or self care documented in this encounter Plan of Treatment Not on file documented as of this encounter Procedures Procedure Name Priority Date/Time Associated Diagnosis Comments XR SHOULDER LEFT 2 OR MORE VIEWS Schedule Routine, Read Routine (OP Routine) 09/28/2019 11:00 AM CDT Closed nondisplaced fracture of surgical neck of humerus, unspecified fracture morphology, unspecified laterality, initial encounter documented in this encounter Results * XR Shoulder Left 2 or More Views (09/28/2019 11:00 AM CDT) Anatomical Region Laterality Modality Upper Extremities, Shoulder Left Comp uted Radiography 09/28/2019 12:0 4 PM CDT Impressions 09/28/2019 12:26 PM CDT Comminuted proximal left humerus fracture involving the surgical neck and greater tuberosity, with possible intra-articular extension, and moderate varus deformity. Dictated by: Francesco Scanlon M.D. , PHD The radiology attending physician has personally reviewed this study, and had reviewed and/or edited this written report and agrees with it. Electronically signed by: Murphy Meeks M.D. Narrative 09/28/2019 12:26 PM CDT EXAMINATION: ??XR SHOULDER LEFT 2 OR MORE VIEWS HISTORY: ??Left humerus fracture FINDINGS: 3 views of the left shoulder are submitted for interpretation. ??There is a displaced and angulated fracture of the left humeral neck with extension to the greater tuberosity and moderate varus angulation. There is apparent cortical irregularity along the medial aspect of the humeral head which is suggestive of intra-articular extension of the fracture. ??The alignment of the glenohumeral joint is normal. Acromioclavicular joint also appears normal. Procedure Note Murphy Meeks MD - 09/28/2019 EXAMINATION: XR SHOULDER LEFT 2 OR MORE VIEWS HISTORY: Left humerus fracture FINDINGS: 3 views of the left shoulder are submitted for interpretation. There is a displaced and angulated fracture of the left humeral neck with extension to the greater tuberosity and moderate varus angulation. There is apparent cortical irregularity along the medial aspect of the humeral head which is suggestive of intra-articular extension of the fracture. The alignment of the glenohumeral joint is normal. Acromioclavicular joint also appears normal. IMPRESSION: Comminuted proximal left humerus fracture involving the surgical neck and greater tuberosity, with possible intra-articular extension, and moderate varus deformity. Dictated by: Francesco Scanlon M.D. , PHD The radiology attending physician has personally reviewed this study, and had reviewed and/or edited this written report and agrees with it. Electronically signed by: Murphy Meeks M.D. Nicolas Wolf MD IMG XR PROCEDURES Final Result documented in this encounter Visit Diagnoses Diagnosis Closed nondisplaced fracture of surgical neck of humerus, unspecified fracture morphology, unspecified laterality, initial encounter documented in this encounter Care Teams Press Tender Star Signal Relationship Specialty Start Date End Date Thao Dove MD PCP - General 03/14/19 documented as of this encounter
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
--- OUTSIDE RECORDS SUMMARY | 2024-07-02 03:55 | XMS_ITS | Encounter Summary ---
Author Organization [facility] Address [address] [place] [address] Phone Care Team Providers Care Refrigeration Manager Name Role Phone Thao Dove MD Primary Care Provider Reason for Referral * Diagnostic Imaging (Routine) - Closed Specialty Diagnoses / Procedures Referred By Contac t Referred To Contact Radiology Diagnoses Closed nondisplaced fracture of surgical neck of humerus, unspecified fracture morphology, unspecified laterality, initial encounter Procedures CT Shoulder Left WO Contrast and 3D Recons Marybeth Wolf MD Phone: tel: fax: [address] [phone] Referral ID Status Reason Start Date Expiration Date Visits Re quested Visits Authorized [id number] Closed 09/28/2019 03/26/2020 1 1 Encounter Details Date Type Department Care Team (Late st Contact Info) Description 09/28/2019 Orders Only [facility] Orthopaedic Surgery [address] [facility] [address]th [place] [address] [place] [address] Marybeth Wolf MD [address] [facility] [address] [place] [address] Closed nondisplaced fracture of surgical neck of [...] as of this encounter Progress Notes * Yari Graf RMA - 09/28/2019 11:[address] documented in this encounter Plan of Treatment Not on file documented as of this encounter Results * CT Shoulder Left WO Contrast and 3D Recons (09/29/2019 8:08 AM CDT) Anatomical Region Laterality Modality Upper Extremities Left Computed Tomog huy 09/29/2019 7:48 AM CDT Narrative 09/29/2019 8:39 AM CDT [facility] ?Imaging Result Name: MARISA LOTT ?Ordering Phys: MARYBETH WOLF Age: 39 ?Date of : 1980 ? Accession Number: [id number] Date of Service: 09/29/2019 ??Gender: F EXAM [...] AM T: ??09/29/2019 8:36 AM Report ID: [id number] Reading Location: ??[id number] Procedure Note Regan Moreno MD - 09/29/2019 [facility] Imaging Result Name: MARISA LOTT Ordering Phys: MARYBETH WOLF Age: 39 Date of : 1980 Accession Number: [id number] Date of Service: 09/29/2019 Gender: F EXAM [...] Regan Moreno M.D. MJ: CLEMENT Report ID: [id number] Reading Location: [place] [address] Marybeth Wolf MD IMG CT PROCEDURES Final Result documented in this encounter Visit Diagnoses Diagnosis Closed nondisplaced fracture of surgical neck of humerus, unspecified fracture morphology, unspecified laterality, initial encounter- Primary Closed nondisplaced fracture of surgical neck of humerus, unspecified fracture morphology, unspecified laterality, initial encounter documented in this encounter Care Teams Refrigeration Manager Relationship Specialty Start Date End Date Thao Dove MD PCP - General 03/14/19 documented as of this encounter
--- OUTSIDE RECORDS SUMMARY | 2024-07-02 03:55 | XMS_ITS | Encounter Summary ---
Author Organization [facility] Healthcare Address [address] [place] [address] Care Team Providers Care Replenishment Associate Name Role Phone Thao Dove MD Primary Care Provider Encounter Details Date Type Department Care Team (Late st Contact Info) Description 10/02/2019 11:05 AM CDT - 10/02/2019 2:40 PM CDT Surgery [facility] [address] [place] [address] Nicolas Wolf MD [address] [facility] [address] [place] [address] OPEN REDUCTION INTERNAL FIXATION - HUMERUS Surgery Details Date/Time Status Location OR Service Patient Class Case Cl ass Case Type Trauma Case? 10/02/2019 11:05 AM Posted [facility] OR POD 2 210 [facility]opa[facility] Outpatient in Bed Time Sensitive - 1 Week Panel 1 Procedure LRB Anes Op Region Wound Class Comments OPEN REDUCTION INTERNAL FIXA TION - HUMERUS Left General Arm Upper Class I - Clean Surgeon Surgeon Role Service Panel Nicolas Wolf MD Primary Orthopaed ics 1 Dex Carrillo MD Resident - Assisting Minor Procedures 1 Case Notes AMSCOPlate Sets -- Synthes small frag Locking Special Needs ORIF left proximal humerus documented in this encounter Social History Tobacco Use Types Packs/Day Years Used Date Smoking Tobacco: Every Day Cigarettes 0.5 24 Started: 2000 Smokeless Tobacco: Never Alcohol Use Standard Drinks/Week Comments Not Currently 0 (1 standard drink = 0.6 oz pure alcohol) None for 20 days, pt reports heavy drinker from [phone] Comments No Sex and Gender Information Value Date Recorded Sex Assigned at Not on file Legal Sex Female 6:19 PM CDT Gender Identity Not on file Sexual Orientation Not on file documented as of this encounter Last Filed Vital Signs Vital Sign Reading Time Taken Comments Blood Pressure 124/86 10/02/2019 2:30 PM CDT Pulse 97 10/02/2019 2:40 PM CDT Temperature 36.4 ??C (97.5 ??F) 10/02/2019 12:44 PM C DT Respiratory Rate 19 10/02/2019 2:40 PM CDT Oxygen Saturation 94% 10/02/2019 2:40 PM CDT Inhaled Oxygen Concentration - - Weight 63.5 kg (140 lb) 09/28/2019 4:15 PM CDT Height 160 cm (5' 3 ) 09/28/2019 4:15 PM CDT Body Mass Index 24.8 09/28/2019 4:15 PM CDT documented in this encounter Discharge Instructions * Attachments The following attachments cannot be sent through Care Everywhere. * [facility] PATHWAY TO EXCELLENT CARE AFTER SURGERY documented in this encounter Medications at Time [...] times a day 200 each 07/11/2019 1 aspirin 325 mg enteric coated tablet Take [...] needed for pain 40 tablet 10/02/2019 0 omeprazole (PriLOSEC) 40 mg capsule 10/02/2019 0 documented as of this encounter Ordered Prescriptions Prescription Sig Dispense Quantity Refills Last Filled Start Date End Date HYDROcodone-acetam inophen (NORCO) 5-325 mg per tabletIndications: Pain Take 1-2 tablets by mouth every 4 (four) hours as needed for pain 40 tablet 10/02/[address] (NexIUM) 40 mg capsule Take 1 capsule (40 mg total) by mouth daily before breakfast To protect stomach while taking aspirin. 14 capsule 10/02/2019 0 aspirin 325 mg enteric coated tablet Take 1 tablet (325 mg total) by mouth 2 (two) times a day for 14 days For blood clot prevention. Take with food. 28 tablet 10/02/2019 0 documented in this encounter Discharge Disposition Disposition Code Departure Means Destination Discharge to home or self care documented in this encounter H&P Notes * Dex Carrillo MD - 10/02/2019 9:36 AM CDT I have reviewed the H&P, examined the patient, and endorse the findings as written. Plan of Care : Based on the above findings, I consider Marisa Lott to be an acceptable risk for: Procedure(s): OPEN REDUCTION INTERNAL FIXATION - HUMERUS Cosigned by Nicolas Wolf MD at 10/02/2019 9:46 AM CDT Source Note - Christina Donovan NP - 09/29/2019 9:45 AM CDT Images from the original note were not included. Center for Preoperative Assessment and Planning Preoperative Evaluation Record Evaluation type/location: TPAP from [facility] Planned procedure site: [facility] (Pods 2/3/5/POCKET SETTER) Date: 09/29/19 NOTE: This note represents a preoperative evaluation initiated via telephone interview. NO PHYSICALEXAM was performed at the time of initial assessment. A physical exam may be added to this note anddocumented below. Anesthesia Evaluation Marisa Lott is a 39 y.o. female Procedure(s): OPEN REDUCTION INTERNAL FIXATION - HUMERUS Pre-Op Diagnosis Codes: * Closed fracture of proximal end of left humerus, unspecified fracture morphology, initial encounter [S42.202A] HISTORY HPI Marisa Lott is a 39 y.o. female who is being evaluated prior to undergoing OPEN REDUCTION INTERNAL FIXATION - HUMERUS (Left Arm Upper) for left proximal humerus fracture . Past Medical History Information obtained from: patient and chart. Neurological + Psychiatric history - anxiety and depression Pertinent negatives: seizures; CVA/stroke; TIA and dementia/mild cognitive impairment Cardiovascular + Hypertension (pt reports history when detoxing from alcohol - no longer on medications) Pertinent negatives: CAD ; [place] ; CABG ; atrial fibrillation; arrhythmia; pacemaker/ICD; DVT/PE; negative for CHF; drug-eluting stent(s); bare metal stent(s); unknown stent(s) type and hyperlipidemia Respiratory + Current smoker - Counseled to abstain from smoking the day of surgery. Pertinent negatives: COPD; asthma; sleep apnea (DAREN) and no O2 use outside the hospital Hepatic / Heme Pertinent negatives: liver disease; history of anemia; history of thrombocytopenia and history of Trista positive Gastrointestinal Pertinent negatives: GERD and hiatal hernia Renal / Pertinent negatives: renal disease; dialysis and nephrolithiasis Musculoskeletal/Pain Pertinent negatives: chronic pain; osteoarthritis and headaches Endocrine / Other + Diabetes mellitus (prior A1c from 10/2/19 was 5.3; DKA in 06/2019) - Diabetes type 2. Diagnosed: 06/2019. Outpatient insulin use: current. Pt reported low glucose range is 120. Pt reported high glucose range is 130. Pt reported HgA1c: 14.1. Pt reported HgA1c date: 07/07/19. 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 Denies CP. Day of Surgery assessments + Possibility of assessed (LMP: 09/27/19, urine HCG ordered DOS) - ruled out by patient's provided history. Review of Systems + heavy menses + easy bruising + chipped/loose teeth (poor dentition- many chipped and broken teeth) Pertinent negatives: productive cough; wheezing; SOB; recent cold/flu; fever; chest pain; palpitations; orthopnea; pedal edema; PND; previous transfusion; melena/hematochezia; bleeding problems; syncope; dizziness; muscle weakness; chronic pain; numbness/tingling; hard of hearing; vision loss; nausea; dysphagia; diarrhea; dentures/partials; abdominal pain and no unexpected weight change Comments: Denies UTI symptoms PAT Summary and Plans Cardiac risk classification of planned procedure: intermediate cardiac risk. Preoperative assessment status: complete. Initial preoperative evaluation discussed with: Azeem Cruz MD Additional comments: Marisa Lott is a 39 y.o. female who is being evaluated prior to undergoingan intermediate cardiac risk surgery. Revised Cardiac Risk Index factors are (none) for a total RCRI of 0 out of 6. Functional capacity is <4 METs. Obstructive sleep apnea (DAREN) screening status is unknown due to TPAP assessment. Blood bank needs for day of procedure: T&C 1 unit pRBCs Pending labs/tests include: CBC BMP T&S Urine HCG - ordered DOS, to be reviewed by DOS team This assessment was performed via telephone. Therefore the physical exam has been deferred to the day of surgery team. The patient was provided with preoperative instructions for their medications. The patient was instructed to shower/bathe the night prior and the morning of the planned procedure using an antibacterial soap. Patient instructions were provided by telephone. Patient verbalized understanding of preoperative plan. TPAP assessment complete Preoperative evaluation performed by Christina Donovan NP on 09/29/19 at 12:26 PM.. Patient Active Problem List Diagnosis ??? ETOH abuse ??? Pancreatitis, necrotizing ??? Hyperglycemia ??? History of DVT (deep vein thrombosis) ??? Fever ??? Necrotizing pancreatitis ??? Severe malnutrition (CMS/HCC) ??? Humerus fracture Past Medical History: Diagnosis Date ??? Anxiety [...] PERITONEAL OR RETROPERITONEAL FLUID COLLECTION N/A 03/17/2019 OB History 4 Para 3 Term 3 AB 1 Living 3 SAB 1 TAB Ectopic Multiple Live Births 3 No Known Allergies Med List Status: Nurse Complete Set By: Juliet Clark RN at 09/28/2019 4:12 PM Taking? Last Dose Start Date End Date Provider acetaminophen-codeine (TYLENOL with CODEINE #3) 300-30 mg per tablet 09/28/19 -- Nicolas Wolf MD Take 1 tablet by mouth every 6 (six) hours as needed for pain blood glucose diagnostic (Glucocard Shine Test Strips) strip 07/11/19 -- Gregory Douglas MD Use as needed Notes: OK to substitute for another brand escitalopram (LEXAPRO) 10 mg tablet 09/27/2019 06/01/19 -- Historical Provider, hydrOXYzine (ATARAX) 25 mg tablet 09/28/2019 06/01/19 -- Historical Provider, ibuprofen (ADVIL,MOTRIN) 600 mg tablet 09/28/2019 09/25/19 -- Historical Provider, insulin glargine (LANTUS) 100 unit/mL injection 09/27/2019 07/11/19 07/10/20 Gregory Douglas MD Inject 25 Units under the skin nightly insulin lispro (HumaLOG) 100 unit/mL insulin pen 09/28/2019 07/11/19 07/10/20 Gregory Douglas MD Inject 1-7 Units under the skin 3 (three) times a day with meals 5 units with large meals, plus sliding scale, up to 7 units lancets 17 gauge misc 07/11/19 07/10/20 Gregory Douglas MD 1 Device 5 (five) times a day Notes: Ok to substitute for a different lancet OneTouch Ultra2 Meter misc 08/09/19 -- Historical ProviderMD pen needle, diabetic 33 gauge x 5/32 needle 07/11/19 -- Gregory Douglas MD 1 Device 5 (five) times a day Notes: Ok to substitute for a different sized pen needle No current facility-administered medications for this encounter. Current Outpatient Medications: ??? escitalopram (LEXAPRO) 10 mg tablet ??? hydrOXYzine (ATARAX) 25 mg tablet ??? ibuprofen (ADVIL,MOTRIN) 600 mg tablet ??? insulin glargine (LANTUS) 100 unit/mL injection ??? insulin lispro (HumaLOG) 100 unit/mL insulin pen ??? acetaminophen-codeine (TYLENOL with CODEINE #3) 300-30 mg per tablet ??? blood glucose diagnostic (Glucocard Shine Test Strips) strip ??? lancets 17 gauge misc ??? OneTouch Ultra2 Meter misc ??? pen needle, diabetic 33 gauge x 5/32 needle Social History Tobacco Use Smoking Status Current Every Day Smoker ??? Packs/day: 0.50 ??? Types: Cigarettes ??? Start date: 2000 Smokeless Tobacco Never Used Substance and Sexual Activity Alcohol Use Not Currently Comment: None for 20 days, pt reports heavy drinker from [id number] Substance and Sexual Activity Drug Use Not Currently Family History Problem Relation Age of Onset ??? Diabetes Mother ??? Hypertension Mother ??? Heart attack Mother ??? Heart failure Mother ??? Blood Clot Father ??? Stroke Paternal Grandmother There were no vitals filed for this visit. Relevant diagnostics: ECG(s): 07/07/2019- Normal sinus rhythm Nonspecific T wave abnormalities. When compared with ECG of 21-MAR-2019 06:36, No significant change was found 87 bpm Echocardiogram(s): N/A Stress test(s): N/A Cardiac catheterization(s): N/A PFT(s): N/A Vascular studies: N/A Other: N/A PT: No results found for requested labs within last 720 hours. INR: No results found for requested labs within last 720 hours. APTT: No results found for requested labs within last 720 hours. Hgb A1C: No results found for requested labs within last 720 hours. CBC RBC: No results found for requested labs within last 720 hours. RDW: No results found for requested labs within last 720 hours. MCHC: No results found for requested labs within last 720 hours. MCH: No results found for requested labs within last 720 hours. MCV: No results found for requested labs within last 720 hours. Hct: No results found for requested labs within last 720 hours. Hgb: No results found for requested labs within last 720 hours. WBC: No results found for requested labs within last 720 hours. MPV: No results found for requested labs within last 720 hours. Platelets: No results found for requested labs within last 720 hours. RDW CV: No results found for requested labs within last 720 hours. RDW Sd: No results found for requested labs within last 720 hours. BMP Glucose: No results found for requested labs within last 720 hours. Calcium: No results found for requested labs within last 720 hours. Sodium: No results found for requested labs within last 720 hours. Potassium: No results found for requested labs within last 720 hours. CO2: No results found for requested labs within last 720 hours. Chloride: No results found for requested labs within last 720 hours. BUN: No results found for requested labs within last 720 hours. Creatinine: No results found for requested labs within last 720 hours. Katia index score: 100 documented in this encounter Miscellaneous Notes * Perioperative Nursing Note - Rosibel Leonard RN - 10/02/2019 3:38 PM CDT Instructions given to father over phone. * Perioperative Nursing Note - Rosibel Leonard RN - 10/02/2019 3:05 PM CDT Discharge instructions given to patient. Voices understanding. * Perioperative Nursing Note - Rosibel Leonard RN - 10/02/2019 3:04 PM CDT Patient's father contacted by phone. 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 Lott is a 39 y.o.-year-old female who sustained a left proximal humerus fracture; she was indicated for open reduction and internal fixation due to the displaced nature of the articular fracture and came to the operating room today for this procedure. The risks and benefits ofthe procedure were discussed prior to the procedure and all questions were answered; consent was obtained. PREOPERATIVE DIAGNOSIS: left proximal humerus fracture (2-part). POSTOPERATIVE DIAGNOSIS: Same. PROCEDURE: 1. left proximal humerus open reduction and internal fixation. SURGEON: Nicolas Wolf MD ASSIST: Humphrey Carrillo MD ANESTHESIA: general IV FLUIDS AND URINE: See anesthesia. ESTIMATED BLOOD LOSS: 300 mL. IMPLANTS: Synthes proximal humerus locking plate with 3.5 mm locking and nonlocking screws, fibula allograft SPECIMENS: None. DRAINS: None COMPLICATIONS: None. DESCRIPTION OF PROCEDURE: The patient was brought to the operating room. The patient had the anesthesia placed by the anesthesiologist in standard fashion. The patient was then positioned in the beach chair position. The prep verification and incision time-outs were performed to confirm that this was the correct patient, site, side and location. The patient had SCDs in place. The patient did receive antibiotics prior to the incision and was redosed during the procedure as needed at indicated intervals. The patient had the upper extremity prepped and draped in the standard surgical fashion. The bony landmarks were palpated and the incision was drawn with a marker. The incision was an anterolateral acromial (deltoid split) approach. The skin was incised with a 10blade and then subcutaneous tissues incised using Bovie cautery. The raphe between the anterior andmiddle heads of the deltoid was incised from the tip of the acromion to a roughly 5cm distally using a bovie. Once the subacromial space was entered, digital palpation confirmed the location of the axillary nerve. Dissection carried down distally with secure knowledge of the nerves location, keeping it protected. A splint in the deltoid was made distal to the axillary nerve and a window was made to visualize the humeral shaft. These two surgical windows communicated deep to the axillary nerve, c onfirmed with blunt dissection. The subacromial bursa was debrided with a ronguer and scalpel. The rotator cuff tendons were tagged with #2 fiberwire. There was a large fracture hematoma which was evacuated. There was comminution of the greater and lesser tuberosities without displacement from the head fragment. A fibula allograft was cut and placed into the shaft and then the head was reduced onto the fibula. Reduction was maintained using steinmann pins. The reduction was confirmed using fluoroscopy. A Synthes 3 hole proximal humerus locking plate was then selected and brought onto the field. The sutures tagging the rotator cuff insertions were passed through the holes in the plate. The pl ate was placed on the bone at the appropriate height again using fluoroscopy to confirm this. A single cortical screw was placed within the shaft. locking towers were then secured within the proximalpaddle on the plate and three 2.8 mm drill bit passed into the subchondral bone. Radiographs at this time an AP and axillary views demonstrated appropriate hardware placement and maintenance of reduction. AT this time locking screws were placed proximally and cortical screws within the shaft. The shoulder was taken through range of motion found to be stable. AP and axillary views demonstrated appropriate reduction and hardware placement. Approach withdrawal with C arm fluoroscopy was used to con firm no joint penetration using the locking screws. The fiberwire suture was tied to the plate for tuberosity fixation. The wound was copiously irrigated with normal saline. The deltopectoral interval was closed using 1. Vicryl. The deep dermal layers were closed using 2 Monocryl. The skin was closed using 3-0 nylon sutures in horizontal mattress fashion. The wound was dressed using Xeroform gauze ABD and ioban. The patient was then placed in a sling extubated and transferred to her hospital bed. She was then transferred to the PACU in stable condition. All sponge and instrument counts were correct.I was present for the entire procedure. POSTOPERATIVE PLAN: Ms. Lott will remain nonweightbearing on this arm for approximately three months. she will start shoulder Codman and pendulum exercises immediately. In addition, please do passive elevation of the humerus only in the plane of the scapula (20 degrees anterior to straight abduction) up to shoulder height; Occupational therapy will see the patient for finger and wrist range of motion and edema control as well as to teach these exercises. she will return for suture removal in three weeks but will not need any x-rays at that time; the first set of x-rays will be at the approximately six-week visit. ASA dvt ppx. * Brief Op Note - Dex Carrillo MD - 10/02/2019 10:47 AM CDT Operative Progress Note Surgical Team: Surgeon(s) and Role: * Nicolas Wolf MD - Primary * Dex Carrillo MD - Resident - Assisting Anesthesiologist: Charleen Feldman MD ELIGIBILITY MANAGER: Issa Rucker CRNA; Aisha Maharaj CRNA Hide Curer: Reynold Nugent RN; Uriel Abbasi RN Scrub: ST Sukumar Hide Curer Second: Yari Calderón RN DATE OF SURGERY : 10/02/2019 Preoperative Diagnosis: Pre-op Diagnosis * Closed fracture of proximal end of left humerus, unspecified fracture morphology, initial encounter [S4.A] Postoperative Diagnosis: Post-op Diagnosis * Closed fracture of proximal end of left humerus, unspecified fracture morphology, initial encounter [S4] Procedure(s): Procedure(s) (LRB): OPEN REDUCTION INTERNAL FIXATION - HUMERUS (Left) Operative Findings: As expected, left proximal humerus fracture Estimated Blood Loss: 300 mL Intraoperative Fluids: 1500 mls Specimens: No specimen collected in procedure Implants: Implant Name Type Inv. Item Serial No. Geosciences Professor Lot No. LRB No. Used GRAFT BONE FIBULA SHAFT ALLOGRAFT FROZEN 60MMX5+ MM - [id number] - [id number] Bone GRAFT BONE FIBULA SHAFT ALLOGRAFT FROZEN 60MMX5+ MM [id number] Musculoskeletal Transplant 0 Left 1 SYNTHES 241.901 LCP COMBI PHILOS [id number] 3 HOLE SHAFT LOCK COMPRESSION - [id number] SYNTHES 241.901 Lcp Combi Philos [id number] 3 Hole Shaft Lock Compression Synthes Left 1 SYNTHES 204.828 3.5MM 6MM 28MM 2.5MM SELF TAP SMALL HEXAGONAL SOCKET LOW PROFILE - [id number] SYNTHES 204.828 3.5mm 6mm 28mm 2.5mm Self Tap Small Hexagonal Socket Low Profile Synthes Left 3 SYNTHES 212.136 3.5MM 2.9MM 46MM SELF TAP LOCK STARDRIVE CONICAL HEAD T15 FULL - [id number] 3.5mm 2.9mm 46mm Self Tap Lock Stardrive Conical Head T15 Full Synthes Left 2 SYNTHES 212.115 3.5MM 2.9MM 36MM SELF TAP LOCK STARDRIVE CONICAL HEAD T15 FULL - [id number] 3.5mm 2.9mm 36mm Self Tap Lock Stardrive Conical Head T15 Full Synthes Left 2 SYNTHES 212.116 3.5MM 2.9MM 38MM SELF TAP LOCK STARDRIVE CONICAL HEAD T15 FULL - [id number] 3.5mm 2.9mm 38mm Self Tap Lock Stardrive Conical Head T15 Full Synthes Left 1 SYNTHES 212.117 3.5MM 2.9MM 40MM SELF TAP LOCK STARDRIVE CONICAL HEAD T15 FULL - [id number] 3.5mm 2.9mm 40mm Self Tap Lock Stardrive Conical Head T15 Full Synthes Left 2 SYNTHES 212.118 3.5MM 2.9MM 42MM SELF TAP LOCK STARDRIVE CONICAL HEAD FULL THREAD - [id number] SYNTHES 212.118 3.5mm 2.9mm 42mm Self Tap Lock Stardrive Conical Head Full Thread Synthes Left 1 SYNTHES 212.113 3.5MM 2.9MM 34MM SELF TAP LOCK STARDRIVE CONICAL HEAD PELVIS T15 - [id number] SYNTHES 212.113 3.5mm 2.9mm 34mm Self Tap Lock Stardrive Conical Head Pelvis T15 Synthes Left 1 Blood/Blood Products Transfused: 0 mls Complications: None Condition on Discharge from the operating room was stable Humphrey Carrillo MD Date: 10/02/2019 Time: 12:33 PM TEACHING ATTESTATION : I was present and directly participated in the entire procedure (including opening and closing). Cosigned by Nicolas Wolf MD at 10/02/2019 1:26 PM CDT * Pre-Procedure Instructions - Christina Donovan NP - 09/29/2019 9:42 AM CDT Center for Preoperative Assessment and Planning CPAP Clinic Location: [facility] The night before your surgery: * Do not eat or drink anything after midnight. This includes candy, mint, gums, chewable antacids (TUMS, Rolaids) and cough drops * Do not smoke after midnight the night before surgery. It is best to stop smoking now to improve your health. The morning of your surgery: * You may brush your teeth and rinse your mouth out. * Do not glue your dentures. * Do not wear jewelry, body piercings, makeup, hairpins, false eyelashes or contact lenses to the hospital. * Leave any valuables at home or with your family. You may want to bring a credit card if you want to use our Mobile Pharm[facility] for your discharge medications. If you have an implantable device with a remote, bring the remote with you on the day of surgery. If you have Diabetes: * If your blood sugar is low before you come to the hospital, drink a small amount of sugar water or clear juice like apple or cranberry juice. DO NOT drink orange or pineapple juice. These are not clear liquids. * If you take insulin be sure to read the Medicine Instructions. * Please call your surgeon and/or the CPAP Clinic if you have any questions. Instructions For Your Medications: Pre-Surgery Instructions: Medication Instructions ??? escitalopram (LEXAPRO) 10 mg tablet Take night before as prescribed ??? hydrOXYzine (ATARAX) 25 mg tablet Don't take on day of surgery ??? ibuprofen (ADVIL,MOTRIN) 600 mg tablet Don't take on day of surgery ??? insulin glargine (LANTUS) 100 unit/mL injection See below instructions ??? insulin lispro (HumaLOG) 100 unit/mL insulin pen Don't take on day of surgery ??? acetaminophen-codeine (TYLENOL with CODEINE #3) 300-30 mg per tablet Take on day of surgery if needed Instructions For Your Insulin: ?? Instructions for your GLARGINE (LANTUS / TOUJEO / BASAGLAR) insulin: take 20 units the night before surgery and take 0 units the morning of your surgery ?? Do NOT take SHORT-ACTING insulin (ASPART / NOVOLOG / FIASP, LISPRO / HUMALOG) on the day of surgery. ?? Make sure you check your blood sugar regularly. If your blood sugar is too low, you can drink clear drinks like apple juice or sugar water. General Instructions For Medications: ?? If prescribed a non-steroidal anti-inflammatory such as Celebrex, Meloxicam, or Naproxen by yoursurgeon, take as prescribed prior to surgery and discontinue all other non-steroidal anti-inflammatory medications such as excedrin, motrin, advil, ibuprofen, naproxen, aleve, meloxicam, celebrex, and celecoxib 5 days prior to surgery ?? If undergoing a neurological or spine procedure, stop all of these medications 5 days prior to your surgery: excedrin, motrin, advil, ibuprofen, aleve, naproxen, meloxicam, celebrex, celecoxib. ?? Stop all of these medications 7-14 days prior to your surgery: Vitamin E, Herbal medicines, DietPills ?? If you have pain, you may take tylenol (acetaminophen). Do not take more than 6 tablets or 3000 mg (3 g) within a 24 period. Call your surgeon and the CPAP clinic if any of the following happens before surgery: ?? Any changes in your health ?? You have a fever ?? You have any signs of an infection (chest, urinary tract or tooth) ?? You have been to the Emergency Room or were in the hospital ?? You have started taking any new medications ?? You have questions about a bowel prep or special diet before surgery * Perioperative Nursing Note - Juliet Clark RN - 09/28/2019 4:29 PM CDT [facility] for Preoperative Assessment and Planning Perioperative Nursing Note Telephone Preoperative Evaluation ([facility]) - TELEPHONE ONLY, NO PHYSICAL EXAM Date: 09/28/19 Vitals: 09/28/19 1615 Weight: 63.5 kg (140 lb) Height: 160 cm (5' 3 ) CHEST CIRCUMFERENCE: NA Social History Tobacco Use Smoking Status Current Every Day Smoker ??? Packs/day: 0.50 ??? Types: Cigarettes ??? Start date: 2000 Smokeless Tobacco Never Used Substance and Sexual Activity Alcohol Use Not Currently Comment: None for 20 days Substance and Sexual Activity Drug Use Not Currently Outpatient Medications Marked as Taking for the 10/02/19 encounter (Hospital Encounter) with Nicolas Wolf MD Medication Sig Dispense Refill ??? escitalopram (LEXAPRO) 10 mg tablet Take 10 mg by mouth nightly 0 ??? hydrOXYzine (ATARAX) 25 mg tablet Take 25 mg by mouth every 8 (eight) hours as needed for anxiety ??? ibuprofen (ADVIL,MOTRIN) 600 mg tablet TK 1 T PO TID ??? insulin glargine (LANTUS) 100 unit/mL injection Inject 25 Units under the skin nightly 22.5 mL 3 ??? insulin lispro (HumaLOG) 100 unit/mL insulin pen Inject 1-7 Units under the skin 3 (three) times a day with meals 5 units with large meals, plus sliding scale, up to 7 units 18.9 mL 3 ??? [DISCONTINUED] insulin glargine (LANTUS) 100 unit/mL injection Inject 22 Units under the skin nightly 19.8 mL 3 Implants No active implants to display in this view. SKIN Piercings Remaining: No Wound (LDAs) Type of Wound (LDA): (DENIES) SCREENINGS Freed Fall Risk Score (Retired): 15 Katia index score: 100 Is someone currently physically or emotionally hurting you or your family?: Denies NUTRITION ERAZO Nutrition and Function History Questionnaire Is BMI < 20?: No Have you lost any weight in the past 6 months without trying? : Yes Have you eaten < 50% of normal in the past 2 weeks without trying?: No Have you experienced any of the following in the past month?: Nausea, Vomiting, Feel full quickly Symptom Score: 1 Has your activity level decreased over the past 6 months or do you use an assistive device such as a walker, cane, or wheelchair?: Yes Total Score: 3 PATIENT CARE PLANNING Advance Directives (For Healthcare) Advance Directive: Patient does not have advance directive Assistive Devices/DME: Splint LUE Discharge Planning Type of Residence: Private residence Living Arrangements: Family members Support Systems: Family members Patient expects to be discharged to:: Private residence ADDITIONAL COMMENTS/ FOLLOW UP REPORTS POOR DENTAL CARE/DECAY * Pre-Procedure Instructions - Juliet Clark RN - 09/28/2019 4:24 PM CDT PRE-SURGICAL INSTRUCTIONS ??? General Information ?? Surgery location provided to patient. ?? Arrival time and surgical time will be provided by your surgeon. ?? Wear something clean, loose, comfortable and easy to get in and out of. ?? Leave your valuables and any jewelry at home (No metal or piercings are allowed in the operatingroom) ?? Bring your insurance card, a photo ID (like a [employer]'s license) and a method of payment for any insurance copay, deductible, or copay for discharge medications. ?? Bring a complete, up to date list of all of your medications including any over the counter medications or supplements you may take. ? How To Prepare Your Skin For Surgery Evening Before and Morning of Surgery Scrub Instructions: Antiseptic/antibacterial soap will decrease the amount of germs on your skin. It is important to minimize the risk of getting an infection by doing the following: ?? Change all the linens on the bed the night before surgery so you are sleeping on clean fresh sheets and pillowcases. ?? Shower the evening before and the morning of surgery with an antibacterial soap such as Dial or a surgical soap known as chlorhexidine (Hibiclens). You can purchase this soap at any pharmacy or department store or come by our [facility] CPAP clinic and we will give it to you free of charge. Do not use this soap on your face or hair. ?? Wash your hair and face with your regular shampoo (no conditioners) and facial cleanser. ?? Take a shower using ?? cup (2 oz.) of antiseptic soap applied to a clean fresh washcloth. Scrub your entire body from the neck down. If you can't reach the surgical site, such as your back, have someone help you with your shower. Rinse thoroughly and dry yourself off with a clean fresh dry towel. ?? Wear clean clothes or pajamas to sleep in and on morning of surgery. ?? Nothing extra on the skin or hair such as deodorant, makeup, hair products, lotions, powders, Vaseline, creams, or perfumes the evening before and the morning of surgery. ?? The morning of the surgery repeat the shower process with the remaining ?? cup (2 oz.) of surgical scrub using another fresh wash cloth and towel. ?? Do not shave the morning of surgery. ?? REMEMBER no deodorant, make-up, lotions, powders, creams, Vaseline, oils, conditioners or hair products the morning of the surgery. ??? Nutrition Information: Having surgery is like running a marathon. Here are some steps to help you get ready. Please remember, always follow the nutritional guidance of your physician. You may also contact the CPAP Dietitian, Alma Coombs, @ [phone]. ?? Increase energy needs: Your body uses a lot of energy during and after surgery. Adding calories by adding foods with extra nutrients such as nuts, dried fruits, eggs and cheese. ?? Major Workout: In surgery, you'll burn more energy than you would during a 2 1/2 hour race. Increasing your carbohydrate (carb) intake a few days prior can keep you from running out of energy. ?? Muscle Loss: After using up carb and protein, the body starts breaking down muscle to create energy. Muscle loss can lead to lower strength and longer recovery time. Protect your muscles by addinghigh protein foods to each meal or snack. Aim to eat a protein source at each meal and snack. ?? Examples of good sources of protein: Animal Products (meat, fish, eggs, milk, hard cheese, and Occitan yogurt). Plant sources (tofu, edamame, beans, nuts and nut butters). ?? You may benefit from including a nutritional protein drink in the days before and after surgery.Many are available at grocery stores, pharmacies and on-line retailers. Some examples: Patients with diabetes (Premier Protein, Ensure High Protein, Glucerna Shakes). Patients with kidney disease (Boost Breeze, Ensure clear, Premier Protein-vanilla only, Nepro Shakes). All Other Patients (Ensure, Boost, Muscle Milk, Orgain-plant bases, Riddle-plant bases, Swayzee Breakfast Essentials). ??? If your surgeon's office has not notified you of your surgery time by NOON THE DAY BEFORE your surgery, please call [phone] and ask for your surgeon's office DR WOLF documented in this encounter Plan of Treatment Not on file documented as of this encounter Procedures Procedure Name Priority Date/Time Associated Diagnosis Comments FL FLUOROSCOPY < 1 HOUR IP Routine 10/02/2019 12:21 PM CDT POCT GLUCOSE DEVICE Routine 10/02/2019 1 2:12 PM CDT POCT GLUCOSE DEVICE Routine 10/02/2019 1 0:31 AM CDT POCT HCG, URINE Routine 10/02/2019 10:10 AM CDT OPEN REDUCTION INTERNAL FIXATION - HUMERUS 10/02/2019 10:09 AM CDT Closed fracture of proximal end of left humerus, unspecified fracture morphology, initial encounter Case Notes AMSCOPlate Sets -- Synthes small frag Locking Special Needs ORIF left proximal humerus B CHECK SAMPLE STAT 10/02/2019 9:50 AM CDT TYPE AND SCREEN STAT 10/02/2019 9:25 AM CDT CBC WITHOUT DIFFERENTIAL STAT 10/02/2019 8:52 AM CDT BASIC METABOLIC PANEL STAT 10/02/2019 8:52 AM CDT documented in this encounter Results * FL Fluoroscopy < 1 Hour (10/02/2019 12:21 PM CDT) Narrative [facility] - 10/02/2019 12:21 PM CDT The images from this study are not interpreted by Radiology. ??Please refer to the physician's procedure / OR operative note. Nicolas Wolf MD IMG FLUOROSCOPY MD OCEDURES Final Result Performing Organization Address [facility]/ZIP Co de Phone Number [facility] * POCT glucose (10/02/2019 12:12 PM CDT) Glucose, POC 110 70 - 199 mg/dL [facility] Blood specimen (specimen) 10/02/2019 12:12 PM CDT 10/02/2019 12:12 PM CDT Nicolas Wolf MD LAB POCT ORDERABLE S - DEVICE Final Result Performing Organization Address [facility]/ZIP Co de Phone Number [facility] Department [place] [address] * POCT glucose (10/02/2019 10:31 AM CDT) Glucose, POC 116 70 - 199 mg/dL [facility] Blood specimen (specimen) 10/02/2019 10:31 AM CDT 10/02/2019 10:31 AM CDT Nicolas Wolf MD LAB POCT ORDERABLE S - DEVICE Final Result Performing Organization Address [facility] Co de Phone Number [facility] [place] [address] * (ABNORMAL) POCT hCG, urine (10/02/2019 10:10 AM CDT) HCG, ur, POC Negative Lot Number [id number] QC Backgroud Clear Acceptable QC Control Line Acceptable Urine 10/02/2019 10:1 0 AM CDT Christina Amaya [employer]OR [employer]IPMENT [employer]GE[employer] POINT OF CARE TEST ORDE RABLES Final Result * Check Sample (10/02/2019 9:50 AM CDT) ABO Rh A Positive [facility] HCLL OTHER 10/02/2019 9:50 AM CDT 10/02/2019 9:54 AM CDT Nicolas Wolf MD LAB BLOOD ORDERABL ES Final Result Performing Organization Address [facility] de Phone Number [facility] [place] [address] * Type and screen (10/02/2019 9:25 AM CDT) Trista, indirect Negative [facility] ABO Rh A Positive [facility] Blood specimen (specimen) 10/02/2019 9:25 AM CDT 10/02/2019 9:33 AM CDT Narrative [facility] - 10/02/2019 10:28 AM CDT Has the patient had Daratumumab (Darzalex) in the past 6 months?->Unknown Christina Amaya NP LAB BLOOD BANK TEST ORD ERABLES Final Result Performing Organization Address [facility]/ZIP Co de Phone Number [facility] [place] [address] * (ABNORMAL) CBC without differential (10/02/2019 8:52 AM CDT) Pathologist [facility] WBC 5.9 3.8 - 9.9 K/cumm [facility] Hgb 8.3(L) 11.9 - 15.5 g/dL [facility] Hct 27.4(L) 35.6 - 45.5 % [facility] Plt 207 150 - 400 K/cumm [facility] MPV 9.5 9.1 - 12.3 fL [facility] RBC 2.99(L) 3.90 - 5.20 M/cumm [facility] MCV 91.6 81.3 - 96.4 fL [facility] MCH 27.8 27.1 - 33.3 pg [facility] MCHC 30.3(L) 32.3 - 35.7 g/dL [facility] RDW CV 17.4(H) 11.1 - 14.9 % [facility] RDW SD 58.3(H) 35.7 - 48.1 fL [facility] NRBC abs 0.00 0.00 - 0.01 K/cumm [facility] Blood specimen (specimen) 10/02/2019 8:52 AM CDT 10/02/2019 9:37 AM CDT Christina Amaya [employer]GE[employer] LAB BLOOD ORDERABLES Fi nal Result Performing Organization Address [facility]/ZIP Co de Phone Number [facility] [place] [address] * (ABNORMAL) Basic metabolic panel (10/02/2019 8:52 AM CDT) Sodium 139 135 - 145 mmol/L [facility] Potassium, pl 3.6 3.3 - 4.9 mmol/L [facility] Chloride 103 97 - 110 mmol/L [facility] CO2 28 22 - 32 mmol/L [facility] Anion gap 8 2 - 15 mmol/L [facility] BUN 14 8 - 25 mg/dL [facility] Creatinine 0.43(L) 0.60 - 1.10 mg/dL [facility] Glucose 120 70 - 199 mg/dL [facility] Comment: Interpretive Data Fasting glucose >/= 126 mg/dl is diagnostic for diabetes. ?? Fasting is defined as no caloric intake for at least 8 hours. Fasting glucose between 100 mg/dl to 125 mg/dl is diagnostic of prediabetes. In a patient with classic symptoms of hyperglycemia or hyperglycemic crisis, a random glucose >/= 200 mg/dl is diagnostic for diabetes. In the absence of unequivocal hyperglycemia, results should be confirmed by repeat testing. The classification and Diagnosis of Diabetes Diabetes Care 2017;40 (Suppl. 1):S11. Current interpretive data was last revised 2017. Calcium 9.4 8.5 - 10.3 mg/dL [facility] Blood specimen (specimen) 10/02/2019 8:52 AM CDT 10/02/2019 9:37 AM CDT Christina Amaya NP LAB BLOOD ORDERABLES nal Result [facility] [place] [address] documented in this encounter Visit Diagnoses Diagnosis Closed fracture of proximal end of left humerus, unspecified fracture morphology, initial encounter Closed fracture of proximal end of left humerus, unspecified fracture morphology, initial encounter documented in this encounter Administered Medications Inactive Administered Medications - up to 3 most recent administrations Medication Order MAR Action Action Date Dose Rate Site fentaNYL (SUBLIMAZE) preservative free injection 50 mcg 50 mcg, intravenous, Once as needed, uncontrolled pain on PACU admission, Starting on Wed10/02/19 at 1252, For 1 dose, Phase I, Then proceed to PACU 1st line analgesic., Indications: PainIndications:Pain Given 10/02/2019 12:55 PM CDT 50 mcg HYDROcodone-acetaminophen (NORCO) 5-325 mg per tablet 1 tablet 1 tablet, oral, Once, On Wed10/02/19 at 1530, For 1 dose, Phase I, Indications: PainIndications:Pain Given 10/02/2019 3:06 PM CDT 1 tablet HYDROmorphone (DILAUDID) injection 0.4 mg 0.4 mg, intravenous, Administer over 2 Minutes, Every 10 min PRN, 2nd line for pain, Starting on Wed10/02/19 at 1252, Phase I, May administer 10 mintes after 2nd dose of 1st line analgesic agent for uncontrolled or increasing pain. Revert to 1st line dose if POSS of 3. Notify Anesthesiologist if total PACU dose reaches 2 mg and pain score 5/10 or more., Indications: PainIndications:Pain Given 10/02/2019 1:20 PM CDT 0.4 mg Lactated Ringer's (LR) infusion 30 mL/hr, intravenous, Continuous, Starting on Wed10/02/19 at 0930, Pre-Op New Bag 10/02/2019 10:54 AM CDT New Bag 10/02/2019 10:04 AM CDT sodium chloride 0.9 % irrigation As needed, Starting on Wed10/02/19 at 1109, Intra-Op Given 10/02/2019 11:09 AM CDT 1,000 mL Surgical Site documented in this encounter Discontinued Medications Medication Sig Discontinue Reason Start Date End Da te folic acid (FOLVITE) 1 mg tablet Take 1 tablet (1 mg total) by mouth daily 03/22/2019 09/28/2019 insulin glargine (LANTUS) 100 unit/mL injectionIndications:D iabetes Mellitus Inject 22 Units under the skin nightly 07/10/2019 09/28/2019 thiamine (VITAMIN B1) 100 mg tablet Take 1 tablet (100 mg total) by mouth daily 03/22/2019 09/28/2019 ibuprofen (ADVIL,MOTRIN) 600 mg tablet TK 1 T PO TID Stop Taking at Discharge 09/25/2019 10/02/2019 acetaminophen-codeine (TYLENOL with CODEINE #3) 300-30 mg per tablet Take 1 tablet by mouth every 6 (six) hours as needed for pain Stop Taking at Discharge 09/28/2019 10/02/2019 documented as of this encounter Active and Recently Administered Medications Times are shown in CDT. Scheduled Medication Order 09/30/2019 10/01/2019 10/02/2019 HYDROcodone-acetaminophen (NORCO) 5-325 mg per tablet 1 tablet (COMPLETED) 1 tablet, oral, Once, On Wed10/02/19 at 1530, For 1 dose, Phase I, Indications: Pain 1506 (Given - Provid er: Rosibel Leonard RN) Continuous Medication Order 09/30/2019 10/01/2019 10/02/2019 Lactated Ringer's (LR) infusion 30 mL/hr, intravenous, Continuous, Starting on Wed10/02/19 at 0930, Pre-Op 1004 (New Bag - Prov ider: Aisha Maharaj CRNA)1054 (New Bag - Provider: Aisha Maharaj CRNA)1104 (Canceled Entry - Provider: Aisha Maharaj CRNA)1246 (Anesthesia Volume Adjustment - Provider: Aisha Maharaj CRNA)1539 (Stopped - Provider: Rosibel Leonard RN) sodium chloride 0.9% infusion 125 mL/hr, intravenous, Continuous, Starting on Wed10/02/19 at 1330, Phase I 1330 (Due) PRN Medication Order 09/30/2019 10/01/2019 10/02/2019 fentaNYL (SUBLIMAZE) preservative free injection 50 mcg (COMPLETED) 50 mcg, intravenous, Once as needed, uncontrolled pain on PACU admission, Starting on Wed10/02/19 at 1252, For 1 dose, Phase I, Then proceed to PACU 1st line analgesic., Indications: Pain 1255 (Given - Provid er: Rosibel Leonard RN) HYDROmorphone (DILAUDID) injection 0.2 mg 0.2 mg, intravenous, Administer over 2 Minutes, Every 10 min PRN, 1st line for pain, Starting on Wed10/02/19 at 1252, Phase I, Switch to 2nd line analgesic order if pain is uncontrolled or increasing after 2 doses. Notify Anesthesiologist if total PACU dose reaches 2 mg and pain score 5/10 or more., Indications: Pain HYDROmorphone (DILAUDID) injection 0.4 mg 0.4 mg, intravenous, Administer over 2 Minutes, Every 10 min PRN, 2nd line for pain, Starting on Wed10/02/19 at 1252, Phase I, May administer 10 mintes after 2nd dose of 1st line analgesic agent for uncontrolled or increasing pain. Revert to 1st line dose if POSS of 3. Notify Anesthesiologist if total PACU dose reaches 2 mg and pain score 5/10 or more., Indications: Pain 1320 (Given - Provid er: Rosibel Leonard RN) meperidine (DEMEROL) preservative free injection 12.5 mg 12.5 mg, intravenous, Every 10 min PRN, shivering, Starting on Wed10/02/19 at 1252, For 2 doses, Phase I, Max cumulative dose 25 mg., Indications: Shivering metoclopramide (REGLAN) injection 10 mg 10 mg, intravenous, Administer over 1 Minutes, Once as needed, nausea, vomiting, Starting on Wed10/02/19 at 1252, For 1 dose, Phase I, If nausea/vomiting not relieved by ondansetron within 30 minutes or if ondansetron has been given within the last 6 hours. naloxone (NARCAN) 0.4 mg/mL injection 0.04-0.4 mg 0.04-0.4 mg, intravenous, Once as needed, other, excessive sedation/respiratory depression, Starting on Wed10/02/19 at 1252, For 1 dose, Phase I, Dilute 0.4 mg with 9 mL NS (final concentration 0.04 mg/mL). For respiratory depression (respiratory rate less than 6), administer 0.4 mg IVP over 30 seconds. For excessive sedation administer 0.04 mg (1 mL) every 1 minute until desired level of alertness. For IV, administer over 30 seconds., Indications: Opioid Toxicity ondansetron (ZOFRAN) injection 4 mg 4 mg, intravenous, Administer over 2 Minutes, Once as needed, nausea, vomiting, Starting on Wed10/02/19 at 1252, For 1 dose, Phase I, Proceed to metoclopramide if ondansetron has been given within the last 6 hours. sodium chloride 0.9 % irrigation (CANCELED) As needed, Starting on Wed10/02/19 at 1109, Intra-Op 1109 (Given - Provid er: Nicolas Wolf MD) documented in this encounter Orders Medications Ordered That Jamil ht Not Have Been Administered Count Last Ordered Date First Ordered Date HYDROmorphone (DILAUDID) injection 0.2 mg 1 10/02/2019 Lactated Ringer's (LR) infusion 1 0 meperidine (DEMEROL) preserv ative free injection 12.5 mg 1 10/02/2019 metoclopramide (REGLAN) injection 10 mg 1 0 10/02/2019 naloxone (NARCAN) 0.4 mg/mL injection 0.04-0.4 mg 1 10/02/2019 ondansetron (ZOFRAN) injection 4 mg 1 10/01 sodium chloride 0.9% flush 0.5-20 mL 1 09/13 sodium chloride 0.9% infusion 1 10/02/2019 Diet Count Last Ordered Date First Orde red Date ADULT DISCHARGE DIET 2 10/02/2019 Nursing Count Last Ordered Date First Orde red Date DISCHARGE ACTIVITY 1 10/02/2019 DISCHARGE CALL PROVIDER 8 10/02/2019 DISCHARGE DRESSING 2 10/02/2019 DISCHARGE FOLLOW UP 1 10/02/2019 DISCHARGE INSTRUCTIONS 7 10/02/2019 ELEVATE EXTREMITY 1 10/02/2019 NURSING COMMUNICATION 4 10/02/2019 OTHER FOLLOW UP 1 10/02/2019 WEIGHT BEARING STATUS 1 10/02/2019 WEIGHT RESTRICTIONS 1 10/02/2019 documented in this encounter Care Teams Replenishment Associate Relationship Specialty Start Date End Date Thao Dove MD PCP - General 03/14/19 documented as of this encounter
--- OUTSIDE RECORDS SUMMARY | 2024-07-02 03:55 | XMS_ITS | Encounter Summary ---
Author Organization [facility] Address [address] [place] [address] Care Team Providers Care Marzipan Maker Name Role Phone Thao Dove MD Primary Care Provider Encounter Details Date Type Department Care Team (Latest Contact Info) Description 07/07/2019 4:45 PM BOTTLE BLOWING MACHINE TENDER - 07/11/2019 6:48 PM BOTTLE BLOWING MACHINE TENDER Hospital Encounter [facility] [address] [place] [address] Brayan Richter MD [address] [facility] [address] [place] [address] Gume James MD [address] [place] [address] Uriel Ogden MD [address] [place] [address] Diagnosis unknown Discharge Disposition: Discharge to home or self [...] Sign Reading Time Taken Comments Blood Pressure 93/71 07/11/2019 12:53 PM BOTTLE BLOWING MACHINE TENDER Pulse 85 07/11/2019 12:53 PM BOTTLE BLOWING MACHINE TENDER Temperature 36.3 ??C (97.3 ??F) 07/11/2019 12:[address] Respiratory Rate 18 07/11/2019 12:53 PM BOTTLE BLOWING MACHINE TENDER Oxygen Saturation 95% 07/11/2019 12:53 PM BOTTLE BLOWING MACHINE TENDER Inhaled Oxygen Concentration - - Weight 61.9 kg (136 lb 6.4 oz) 07/07/2019 4:45 P M BOTTLE BLOWING MACHINE TENDER Height 160 cm (5' 3 ) 07/07/2019 4:45 PM BOTTLE BLOWING MACHINE TENDER Body Mass Index 24.16 07/07/2019 4:45 PM BOTTLE BLOWING MACHINE TENDER documented in this encounter Discharge Diagnoses Diagnosis Acute pancreatitis with uninfected necrosis, unspecified - ACUTE PANCREATITIS WITH UNINFECTED NECROSIS, UNSPECIFIED Type 1 diabetes mellitus with ketoacidosis without coma (HCC) - TYPE 1 DIABETES MELLITUS WITH KETOACIDOSIS WITHOUT COMA Unspecified severe protein-calorie malnutrition (HCC) - UNSPECIFIED SEVERE PROTEIN-CALORIE MALNUTRITION Pseudocyst of pancreas - PSEUDOCYST OF PANCREAS Alcohol abuse, in remission - ALCOHOL ABUSE, IN REMISSION Nondependent alcohol abuse, in remission Nicotine dependence, cigarettes, uncomplicated - NICOTINE DEPENDENCE, CIGARETTES, UNCOMPLICATED Anxiety disorder, unspecified - ANXIETY DISORDER, UNSPECIFIED Other chronic pain - OTHER CHRONIC PAIN Essential (primary) hypertension - ESSENTIAL (PRIMARY) HYPERTENSION Unspecified essential hypertension Other specified abnormal uterine and vaginal bleeding - OTHER SPECIFIED ABNORMAL UTERINE AND VAGINAL BLEEDING Irregular menstruation, unspecified - IRREGULAR MENSTRUATION, UNSPECIFIED Hepatomegaly, not elsewhere classified - HEPATOMEGALY, NOT ELSEWHERE CLASSIFIED Other specified disorders of teeth and supporting structures - OTHER SPECIFIED DISORDERS OF TEETH AND SUPPORTING STRUCTURES Other specified noninflammatory disorders of cervix uteri - OTHER SPECIFIED NONINFLAMMATORY DISORDERS OF CERVIX UTERI Unspecified ovarian cyst, right side - UNSPECIFIED OVARIAN CYST, RIGHT SIDE Body mass index (BMI) 24.0-24.9, adult - BODY MASS INDEX (BMI) 24.0-24.9, ADULT Unemployment, unspecified - UNEMPLOYMENT, UNSPECIFIED residential (current) use of insulin (HCC) - [facility]PC (CURRENT) USE OF INSULIN Personal history of other venous thrombosis and embolism - PERSONAL HISTORY OF OTHER VENOUS THROMBOSIS AND EMBOLISM documented in this encounter Discharge Summaries * Gume James MD - 07/10/2019 4:39 PM CST Inpatient Discharge Summary BRIEF OVERVIEW Admitting Provider: Uriel Ogden MD Discharge Provider: Gume James MD Primary Care Physician at Discharge: Derrell Osuna MD [phone] Admission Date: 07/07/2019 Discharge Date: 07/11/2019 Admission Location: [facility] Primary Discharge Diagnosis: Type 1 diabetes with DKA Secondary Discharge Diagnosis: Severe malnutrition (CMS/HCC) Necrotizing pancreatitis DETAILS OF HOSPITAL STAY Presenting Problem/History of Present Illness: ?? 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 Patient has noticed progressive polyuria and polydipsia for 1-2 months. Patient additionally began to experience left upper quadrant pain, with radiation to pelvis, which was sharp and stabbing in nature, and remains on going. On presentation, she had elevated glucose to 600, potassium 4.3, bicarb 18, anion gap 24. She was also noted to have lipase of 1358. She was started on insulin drip, and subsequently transferred to [facility]. She remained afebrile hemodynamically st able. On arrival her gap was closed. Pain was managed with narcotics. Insulin drip was stopped , and patient was transitioned to glargine 18 units q.h.s. with 5u lispro with meals plus moderate dose sliding scale. She tolerated advancement of her diet well. Of note, patient has also been having abnormal uterine bleeding for last couple weeks, which is described as like her period, soaking a pad every 8 hours. test was negative. Of note, patient is currently in sustained remission fromher alcohol use disorder. Also of note, she has very poor dentition with chronic dental pain and possibly a upper right dental abscess. ?? Hospital Course: Active issues: 1. DKA Glucose to 600 at outside hospital, w/ anion gap of 24 and ketonuria, started on insulin drip. On transfer glucose improved to 120, with gap closed on arrival - Anti-diabetic regimen increased to 25U glargine qHS, 5u TID, MDSSI for homegoing - Diabetes education 2. Necrotizing pancreatitis Drain placed by IR on 03/2019 and subsequently removed IR 06/16/19. CT scan this admission shows stability of chronic necrotic area of pancreas but acute changes as well. Lipase 1300 on presentation, downtrending to 260. - patient will be discharged with a short course of oxycodone 3. Dysfunction uterine bleeding 3 wks of bleeding, hgb stable. TV US this admission showed thin endometrial stripe. PAP and STI testing sent. Evaluated by ObGyn, without current indication for endometrial biopsy. - Patient to follow/up with ObGyn for progestin-containing IUD 4. Alcohol use disorder In sustained remission. Patient follows with AA, multiple meetings per week. - Primary care provider to consider nalaxone therapy 5. Dental pain - patient can follow/up with a dentist as an outpatient. Was not interested in dental extraction this hospitalization. Test Results Pending at Discharge: Order Current Status Cytology In process Glutamic acid decarboxylase In process Blood culture Blood Preliminary result Blood culture Blood Preliminary result Discharge Details Physical Exam at Discharge: Discharge Condition: good Pulse: 85 Resp: 18 BP: 93/71 Temp: 36.3 ??C (97.3 ??F) Weight: 61.9 kg (136 lb 6.4 oz) Pertinent Exam Findings at Discharge: no Discharge Disposition: Discharge to home or self care Code Status at Discharge: full Discharge Instructions: 150??or less No Insulin 151??to 175 1 unit 176 to 200 2 units 201 to 225 3 units 226??to 250 4??units 251 to 275 5 units 276 to 300 6 units Greater than 300 7 units ?? Please take insulin glargine (25u long acting) nightly Please also take short acting insulin, 5 units short acting lispro with large meals, plus sliding scale as above. Follow up with primary care provider within 1 week of discharge. Please follow up with regional cra as well - a progesterone-containing IUD can help prevent abnormal bleeding ?? One place that you can get reduced - [facility] is [facility] / AT [facility].They are at [facility] ([facility] [address] [address]. Please call [phone] for more information. ?? Discharge Medications: Current Medications TAKE these medications blood glucose diagnostic strip Commonly known as: Glucocard Shine Test Strips Use as needed escitalopram 10 mg tablet Commonly known as: LEXAPRO TK 1 T PO D folic acid 1 mg tablet Commonly known as: FOLVITE Take 1 tablet (1 mg total) by mouth daily hydrOXYzine 25 mg tablet Commonly known as: ATARAX * insulin glargine 100 unit/mL injection Commonly known as: LANTUS Inject 22 Units under the skin nightly * insulin glargine 100 unit/mL injection Commonly known as: LANTUS Inject 25 Units under the skin nightly insulin lispro 100 unit/mL insulin pen Commonly known as: HumaLOG Inject 1-7 Units under the skin 3 (three) times a day with meals 5 units with large meals, plus sliding scale, up to 7 units lancets 17 gauge misc 1 Device 5 (five) times a day oxyCODONE 5 mg immediate release tablet Commonly known as: ROXICODONE Take 1 tablet (5 mg total) by mouth every 4 (four) hours as needed for pain pen needle, diabetic 33 gauge x 5/32 needle 1 Device 5 (five) times a day thiamine 100 mg tablet Commonly known as: VITAMIN B1 Take 1 tablet (100 mg total) by mouth daily * This list has 2 medication(s) that are the same as other medications prescribed for you. Read the directions carefully, and ask your doctor or other care provider to review them with you. ASK your doctor about these medications blood-glucose meter kit Commonly known as: Glucocard Shine Meter Kit 1 Device once for 1 dose Ask about: Should I take this medication? LE BLOWING MACHINE TENDER LE BLOWING MACHINE TENDER LE BLOWING MACHINE TENDER LE BLOWING MACHINE TENDER documented in this encounter Discharge Instructions * Discharge Instructions* Gregory Douglas MD - 07/11/2019 3:05 PM BOTTLE BLOWING MACHINE TENDER 150 or less No Insulin 151 to 175 1 unit 176 to 200 2 units 201 to 225 3 units 226 to 250 4 units 251 to 275 5 units 276 to 300 6 units Greater than 300 7 units Please take insulin glargine (25u long acting) nightly Please also take short acting insulin, 5 units short acting lispro with large meals, plus sliding scale as above. Your diabetes meter will be brought to your room, and your insulin will be available at the [facility] pharmacy at [facility] Follow up with primary care provider within 1 week of discharge. Please follow up with regional cra as well - a progesterone-containing IUD can help prevent abnormal bleeding One place that you can get reduced - [facility] is [facility] / AT [facility].They are at [facility] [place] [facility] ([facility]), [address] [address]. Please call [phone] for more information. LE BLOWING MACHINE TENDER * Discharge Instr - Other Orders* Samantha Forrest RN - 07/11/2019 2:29 PM BOTTLE BLOWING MACHINE TENDER Please schedule a hospital follow-up appointment with your PCP to occur within 5 days of being discharged. LE BLOWING MACHINE TENDER documented in this encounter Medications at Time of Discharge blood glucose diagnostic (Glucocard Shine Test Strips) strip Use as needed 200 each 07/11/2019 escitalopram (LEXAPRO) 10 mg tabletIndications :Anxiety with [...] to 7 units 18.9 mL 3 07/11/2019 pen needle, diabetic 33 gauge x 5/32 needle 1 Device 5 (five) times a day 100 each 07/11/2019 blood-glucose meter (Glucocard Shine Meter Kit) kit 1 Device once for 1 dose 1 each 07/11/2019 07/11/2019 lancets 17 gauge misc 1 Device 5 (five) times a day 200 each 07/11/2019 07/10/2020 folic acid (FOLVITE) 1 mg tablet Take 1 tablet (1 mg total) by mouth daily 30 tablet 1 03/22/2019 09/28/2019 insulin glargine (LANTUS) 100 unit/mL injectionIndicati ons:Diabetes Mellitus Inject 22 Units under the skin nightly 19.8 mL 3 07/10/2019 09/28/2019 oxyCODONE (ROXICODONE) 5 mg immediate release tabletIndications :Pain,2nd line Take 1 tablet (5 mg total) by mouth every 4 (four) hours as needed for pain 25 tablet 07/10/2019 09/28/2019 thiamine (VITAMIN B1) 100 mg tablet Take 1 tablet (100 mg total) by mouth daily 30 tablet 1 03/22/2019 09/28/2019 documented as of this encounter Ordered Prescriptions Prescription Sig Dispense Quantity Refills Last Filled Start Date End Date insulin lispro (HumaLOG) 100 unit/mL insulin pen Inject 1-7 Units under the skin 3 (three) times a day with meals 5 units with large meals, plus sliding scale, up to 7 units 18.9 mL 3 07/11/2019 insulin glargine (LANTUS) 100 unit/mL injectionIndicati ons:Diabetes Mellitus Inject 25 Units under the skin nightly 22.5 mL 3 07/11/2019 pen needle, diabetic 33 gauge x 5/32 needle 1 Device 5 (five) times a day 100 each 07/11/2019 blood glucose diagnostic (Glucocard Shine Test Strips) strip Use as needed 200 each 07/11/2019 lancets 17 gauge misc 1 Device 5 (five) times a day 200 each 07/11/2019 1 blood-glucose meter (Glucocard Shine Meter Kit) kit 1 Device once for 1 dose 1 each 07/11/2019 0 lancets 17 gauge misc 1 Device 5 (five) times a day 200 each 07/10/2019 0 pen needle, diabetic 33 gauge x 5/32 needle 1 Device 5 (five) times a day 100 each 07/10/2019 0 blood glucose diagnostic (Glucocard Shine Test Strips) strip Use as needed 200 each 07/10/2019 0 blood-glucose meter (Glucocard Shine Meter Kit) kit 1 Device once for 1 dose 1 each 07/10/2019 0 oxyCODONE (ROXICODONE) 5 mg immediate release tabletIndications :Pain,2nd line Take 1 tablet (5 mg total) by mouth every 4 (four) hours as needed for pain 25 tablet 07/10/2019 0 insulin lispro (HumaLOG) 100 unit/mL insulin pen Inject 1-7 Units under the skin 3 (three) times a day with meals 1 unit for every 25 glucose greater than 150 up to max 7 units 15 mL 11 07/10/2019 0 insulin glargine (LANTUS) 100 unit/mL injectionIndicati ons:Diabetes Mellitus Inject 22 Units under the skin nightly 19.8 mL 3 07/10/2019 0 insulin lispro (HumaLOG) 100 unit/mL insulin penIndications:ty pe 1 diabetes mellitus Inject 1-3 Units under the skin 3 (three) times a day with meals Refer to After Visit Summary for Sliding Scale Insulin Instructions 15 mL 07/10/2019 0 insulin glargine (LANTUS) 100 unit/mL injectionIndicati ons:Diabetes Mellitus Inject 22 Units under the skin nightly 10 mL 07/10/2019 0 documented in this encounter Discharge Disposition Disposition Code Departure Means Destination Discharge to home or self care documented in this encounter Progress Notes * Samantha Forrest RN - 07/11/2019 3:32 PM CST 07/11/19 1430 Discharge Summary Chart reviewed For Medical Necessity Does patient have a planned readmission to hospital planned? No Discharge Disposition Home Equipment/Provider Needs No Home Needs Identified Discharge Additional Assistance Does the patient need discharge transport arranged? No Post Discharge Care Provider Post Discharge Care Plan DC Summary has been faxed to next level of care provider (see Follow Up Providers) Patient is medically stable for discharge. Medication to be provided by home and mobile pharmacy. Patient's brother to provide transportation home. CM left message at patient's PCP's office. Patient knows to call and schedule a hospital follow-up appointment. LE BLOWING MACHINE TENDER LE BLOWING MACHINE TENDER * Thelma Mcmahon RD - 07/11/2019 11:01 AM CST Nutrition Assessment Reason for Assessment: Follow Up Encounter Date: 07/11/19 11:01 AM Patient is a 39 y.o. female with chief complaint of DKA. LOS is 4 days. HPI: Twin Lott is a 39 y.o. old female with history of necrotizing pancreatitis complicated by a pseudocyst, ETOH use disorder, and anxiety who was transferred from [facility] ED with DKA. Objective Past Medical History: Diagnosis Date ??? Anxiety ??? DVT (deep venous thrombosis) (CMS/HCC) ??? ETOH abuse ??? Fistula r/t necrotizing pancreatitis ??? Hypertension ??? Pancreatitis ??? PONV (postoperative nausea and vomiting) Past Surgical History: Procedure Laterality Date ??? ABSCESS CATHETER INJECTION N/A 03/27/2019 ??? ABSCESS CATHETER INJECTION N/A 04/07/2019 ??? ABSCESS CATHETER INJECTION N/A 04/19/2019 ??? ABSCESS CATHETER INJECTION N/A 05/05/2019 ??? ABSCESS CATHETER INJECTION N/A 05/26/2019 ??? ABSCESS CATHETER INJECTION N/A 06/16/2019 ??? SECTION ??? IMAGE GUIDED DRAINAGE PERITONEAL OR RETROPERITONEAL FLUID COLLECTION N/A 03/17/2019 Social History Tobacco Use ??? Smoking status: Current Every Day Smoker Packs/day: 0.50 ??? Smokeless tobacco: Never Used Substance Use Topics ??? Alcohol use: Not Currently Comment: None for 20 days Family History Problem Relation Age of Onset ??? Congenital heart disease Mother ??? Diabetes Mother ??? Hypertension Mother ??? Blood Clot Father Anthropometrics: Wt Readings from Last 3 Encounters: 07/07/19 61.9 kg (136 lb 6.4 oz) 06/16/19 65.8 kg (145 lb) 05/24/19 65.8 kg (145 lb 1.6 oz) Anthropometrics Weight: 61.9 kg (136 lb 6.4 oz) Admission Weight : 61.9 kg Weight Change: -3.90 kg (-8.60 lbs) IBW/kg (Calculated) : 52.2 kg Height: 160 cm (5' 3 ) BMI Amputation Adjustment: No Weight in (lb) to have BMI = 25: 140.8 BMI (Calculated): 24.2 Nutrition Needs Calculations: Calculated Energy Needs Using Equations Weight: 61.9 kg (136 lb 6.4 oz) Height: 160 cm (5' 3 ) Temp: 36.5 ??C (97.7 ??F) Vital Signs: BP: 95/61 Temp: 36.5 ??C (97.7 ??F) Pulse: 82 Resp: 18 SpO2: 97 % Medications: Scheduled Meds: acetaminophen, 650 mg, oral, Q6H EDIE enoxaparin, 40 mg, subcutaneous, Daily-2100 escitalopram, 10 mg, oral, Daily insulin glargine, 25 Units, subcutaneous, Nightly insulin lispro, 1-3 Units, subcutaneous, Nightly insulin lispro, 1-5 Units, subcutaneous, TID with meals insulin lispro, 5 Units, subcutaneous, TID with meals polyethylene glycol, 17 g, oral, BID senna, 1 tablet, oral, BID sodium chloride 0.9%, 0.5-20 mL, intra-catheter, Q8H EDIE sodium chloride 0.9%, 0.5-20 mL, intra-catheter, Q8H EDIE Continuous Infusions: PRN Meds: dextrose OR dextrose ??? glucagon ??? ondansetron ??? oxyCODONE ??? sodium chloride 0.9% ??? Saline lock IV AND sodium chloride 0.9% AND sodium chloride 0.9% Lab Review: Sodium Date Value Ref Range Status 07/10/2019 139 135 - 145 mmol/L Final Potassium, pl Date Value Ref Range Status 07/10/2019 4.0 3.3 - 4.9 mmol/L Final BUN Date Value Ref Range Status 07/10/2019 7 (L) 8 - 25 mg/dL Final Creatinine Date Value Ref Range Status 07/10/2019 0.46 (L) 0.60 - 1.10 mg/dL Final Calcium Date Value Ref Range Status 07/10/2019 9.1 8.5 - 10.3 mg/dL Final Lab Results Component Value Date HGBA1C 14.1 (H) 07/07/2019 HDL 27 (L) 07/07/2019 LDLCALC 127 07/07/2019 CHOL 196 07/07/2019 TRIG 209 (H) 07/07/2019 Nursing Assessment: Intake/Output Summary (Last 24 hours) at 07/11/2019 1101 Last data filed at 07/11/2019 0830 Gross per 24 hour Intake 750 ml Output -- Net 750 ml Gastrointestinal Gastrointestinal (WDL): Exceptions to WDL Abdomen Inspection: Flat Bowel Sounds (All Quadrants): Active Palpation: Tenderness, No guarding Last BM Date: 07/10/19 Passing Flatus: No GI Symptoms: None Last BM Date: 07/10/19 Fernando Scale Score: 22 Oral Mucosa Grade: Normal (0) Dietary Orders (From admission, onward) Start Ordered 07/11/19 0847 NPO Diet Ice chips, Other (specify); water Diet effective now Question Answer Comment NPO except: Ice chips NPO except: Other (specify) Explanatory Comment: water 07/11/19 0847 Impression: Pt reports appetite is good, no N/V/D currently, bowel movement yesterday, lost 10 pounds in a fewweeks she thinks from diabetes. Pt reports appetite is good now. Wt Readings from Last 10 Encounters: 07/07/19 61.9 kg (136 lb 6.4 oz) 06/16/19 65.8 kg (145 lb) 05/24/19 65.8 kg (145 lb 1.6 oz) 03/15/19 81.8 kg (180 lb 4.8 oz) NUTRITION DIAGNOSIS Nutrition Diagnosis 1: Food and nutrition-related knowledge deficit Related to: Lack of education Evidenced by: Patient interview, Lab abnormality INTERVENTION RD educated Pt on diabetic diet: carbohydrate counting and label reading. Pt asked many good questions. Pt given handouts and RD contact card. Continue to follow po intakes and Lab values. GOALS / MONITORING: Goals: Oral intake to meet 75% estimated nutritional needs by next assessment Interventions: Education Monitoring and Evaluation: Appetite, Labs, Plan of care, PO intake, Stool patterns, Weight changes Thelma Mcmahon MS, RD, LD [phone] LE BLOWING MACHINE TENDER * Gregory Douglas MD - 07/11/2019 9:57 AM CST Daily Progress Note Division of Medical Education Name: Twin Ltot Today: July 11, 2019 : 1980 Age: 39 y.o. female Admit: 07/07/2019 Unit: [id number] Subjective No acute events overnight Afebrile, hemodynamically stable Plan for discharge today Abdominal pain improved Some hyperglycemia to ~300s this AM Will increase glargine to 25u nightly Evaluated by OB: normal TVUS, no indication for endometrial bx at this time Objective Scheduled Meds: acetaminophen, 650 mg, oral, Q6H EDIE enoxaparin, 40 mg, subcutaneous, Daily-2100 escitalopram, 10 mg, oral, Daily insulin glargine, 22 Units, subcutaneous, Nightly insulin lispro, 1-3 Units, subcutaneous, Nightly insulin lispro, 1-5 Units, subcutaneous, TID with meals insulin lispro, 5 Units, subcutaneous, TID with meals polyethylene glycol, 17 g, oral, BID senna, 1 tablet, oral, BID sodium chloride 0.9%, 0.5-20 mL, intra-catheter, Q8H EDIE sodium chloride 0.9%, 0.5-20 mL, intra-catheter, Q8H EDIE Infusions: PRN Meds: dextrose OR dextrose ??? glucagon ??? ondansetron ??? oxyCODONE ??? sodium chloride 0.9% ??? Saline lock IV AND sodium chloride 0.9% AND sodium chloride 0.9% Vitals: 24hr Min/Max: Temp Min: 36.3 ??C (97.3 ??F) Max: 36.5 ??C (97.7 ??F) Pulse Min: 73 Max: 86 BP Min: 90/54 Max: 116/79 Resp Min: 18 Max: 18 SpO2 Min: 97 % Max: 99 % Most Recent: Vitals: 07/11/19 0600 BP: 95/61 Pulse: 82 Resp: 18 Temp: 36.5 ??C (97.7 ??F) SpO2: 97% Physical Exam: Constitutional: NAD, well developed, well nourished. Eyes: PERRL, EOMI, anicteric. ENT: NCAT. Oropharynx normal, moist mucus membranes. Lungs: Clear to auscultation in all lung carrero, unlabored. Trachea midline. Cardiovascular: RRR, normal S1 and S2, no murmurs, no JVD. GI: Soft, non-tender, non-distended, bowel sounds positive, no organomegaly. Skin: No new rashes, lesions or bruises Extremities: Normal without edema or cyanosis Lymph: No cervical, supraclavicular, axillary or inguinal adenopathy Neurologic: AOx4, CNII-XII intact, normal strength and sensation. Psychiatric: Normal affect and mood. Lab/Radiology/Diagnostic Review: Recent Results (from the past 24 hour(s)) POCT glucose Collection Time: 07/10/19 11:36 AM Result Value Ref Range Glucose, POC 204 (H) 70 - 199 mg/dL Glucose comment 1 RN Notified US Pelvis Complete Collection Time: 07/10/19 12:45 PM Result Value Ref Range Cul de Sac No free fluid visualized Endometrial Thickness 5.4 mm&millimeters Trichomonas vaginalis PCR Collection Time: 07/10/19 2:57 PM Result Value Ref Range Trichomonas DNA Not Detected Not Detected POCT glucose Collection Time: 07/10/19 4:33 PM Result Value Ref Range Glucose, POC 116 70 - 199 mg/dL POCT glucose Collection Time: 07/10/19 8:36 PM Result Value Ref Range Glucose, POC 124 70 - 199 mg/dL Folate Collection Time: 07/10/19 11:31 PM Result Value Ref Range Folic acid 14.1 >=5.0 ng/mL Basic metabolic panel Collection Time: 07/10/19 11:31 PM Result Value Ref Range Sodium 139 135 - 145 mmol/L Potassium, pl 4.0 3.3 - 4.9 mmol/L Chloride 101 97 - 110 mmol/L CO2 27 22 - 32 mmol/L Anion gap 11 2 - 15 mmol/L BUN 7 (L) 8 - 25 mg/dL Creatinine 0.46 (L) 0.60 - 1.10 mg/dL Glucose 257 (H) 70 - 199 mg/dL Calcium 9.1 8.5 - 10.3 mg/dL POCT glucose Collection Time: 07/11/19 8:10 AM Result Value Ref Range Glucose, POC 320 (H) 70 - 199 mg/dL Glucose comment 1 RN Notified Assessment & Plan 39 y/o F w/ hx EtOH use c/b necrotizing pancreatitis, HTN admitted from OSH in DKA in setting of pancreatitis #DKA BG to 600 at OSH w/ AG 24 and ketonuria, started on insulin drip. Off on arrival here w/ BG 120. Not on insulin at home. - Gap closed on arrival - Lantus 25U qHS, 5u TID, MDSSI -case repairer # necrotizing pancreatitis Had drain placed 03/2019 which was removed by IR 06/16/19. Presented to OSH w/ abdominal pain. CT there showed stability of chronic necrotic area of pancreas but acute changes as well. Lipase 1300 at OSH, down to 260 here. - supportive care with IVF, antiemetics, pain control #Dysfunction uterine bleeding - 3 wks of bleeding, hgb stable - per OB, TVUS was within normal limits, no need for further murray, may benefit from progestin IUD forlong-term control of bleeding Gregory Douglas MD Cosigned by Gume James MD at 07/11/2019 1:24 PM BOTTLE BLOWING MACHINE TENDER LE BLOWING MACHINE TENDER LE BLOWING MACHINE TENDER Associated attestation - Gume James MD - 07/11/2019 1:24 PM BOTTLE BLOWING MACHINE TENDER I have seen and examined the patient on 07/11/19. I agree with the findings and plan of care as documented in the resident's/fellow's note and as discussed with the resident/fellow.. * Samantha Forrest RN - 07/10/2019 1:51 PM CST 07/10/19 1382 Information Information Obtained From Patient Prior to Admission Primary Caregiver Self Support System Parent Support system contact info (name, phone, availablity) Babar Lott (patient's father) [phone] Home Care Services No Durable Medical Equipment None Living Arrangements Other (Comment) (see note below ) Type of Residence Private residence Steps in home? No steps inside or outside Financial Resource Income Unemployment Payor Source Medicaid ([facility] ) Potential Discharge Needs Anticipated discharge level of care Private residence Pt/Family agrees with Anticipated Level of Care Yes Patient expects to be discharged to: Private residence Time of interview: 10:15 am Chart reviewed for medical necessity. Patient admitted for treatment of: DKA (newly diagnosed diabetes) Information obtained from: patient Insurance verified as: [facility] Prescription Coverage: yes PCP verified as: Dr. Pat Dove, Transportation: per brother Admission Source: OSH Additional Information/Options Discussed: Verified demographic information from the face sheet withthe patient. The address listed is her permanent address where she usually resides with her fiance.Patient is currently staying with her brother and [id number] trying to quit drinking alcohol: [address] [place] [address]. 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 Denies the useof home health in the past. banking management consulting manager to continue to follow for planning and referrals as needed. Patient is being started on insulin; hazardous waste management specialist to see her. ADD: 07/11/2019 Patient/Family agreeable with discharge plan. Based on a comprehensive family assessment, assistance with instrumental activities of daily livingafter discharge will be provided by self. Through the course of our work I determined that family possesses the skill and ability to provide and monitor the care of the patient when he or she returns home. Family has the capacity to provide/monitor/arrange for the care of the patient. Finally, we determined that family has the knowledge ofavailable resources and that combining them with their existing resources will suffice to sustain and care for the patient when he or she returns home. The treatment team is aware of this information. All are in agreement with the aftercare plan. Problem: Establish a safe discharge Goal: Implement a safe discharge home with family support with PCP follow up. LE BLOWING MACHINE TENDER * Gregory Douglas MD - 07/10/2019 9:36 AM CST Daily Progress Note Division of Medical Education Name: Twin Lott Today: July 10, 2019 : 1980 Age: 39 y.o. female Admit: 07/07/2019 Unit: [id number] Subjective No acute events overnight Pain well controlled with oral pain regimen (oxy 5 prn) Vaginal bleeding currently letting up this AM Per ObGyn will go for TVUS today on north Issues with diabetic diet re: pancreatitis pain, frequent snacking. Will liberalize to adult diet regular. Advanced glargine to 22 units nightly, vs 18 units nightly, due to hyperglycemic episodes and high SSI requirements Objective Scheduled Meds: acetaminophen, 650 mg, oral, Q6H EDIE enoxaparin, 40 mg, subcutaneous, Daily-2100 escitalopram, 10 mg, oral, Daily insulin glargine, 22 Units, subcutaneous, Nightly insulin lispro, 1-3 Units, subcutaneous, Nightly insulin lispro, 1-5 Units, subcutaneous, TID with meals insulin lispro, 5 Units, subcutaneous, TID with meals polyethylene glycol, 17 g, oral, BID senna, 1 tablet, oral, BID sodium chloride 0.9%, 0.5-20 mL, intra-catheter, Q8H DEIE sodium chloride 0.9%, 0.5-20 mL, intra-catheter, Q8H EDIE Infusions: PRN Meds: dextrose OR dextrose ??? glucagon ??? ondansetron ??? oxyCODONE ??? sodium chloride 0.9% ??? Saline lock IV AND sodium chloride 0.9% AND sodium chloride 0.9% Vitals: 24hr Min/Max: Temp Min: 36.5 ??C (97.7 ??F) Max: 36.8 ??C (98.2 ??F) Pulse Min: 60 Max: 104 BP Min: 73/47 Max: 105/64 Resp Min: 6 Max: 45 SpO2 Min: 92 % Max: 97 % Most Recent: Vitals: 07/10/19 0540 BP: 105/64 Pulse: 68 Resp: 18 Temp: 36.5 ??C (97.7 ??F) SpO2: 97% Physical Exam: Constitutional: NAD, well developed, well nourished. Eyes: PERRL, EOMI, anicteric. ENT: NCAT. Oropharynx normal, moist mucus membranes. Lungs: Clear to auscultation in all lung carrero, unlabored. Trachea midline. Cardiovascular: RRR, normal S1 and S2, no murmurs, no JVD. GI: Soft, non-tender, non-distended, bowel sounds positive, no organomegaly. Skin: No new rashes, lesions or bruises Extremities: Normal without edema or cyanosis Lymph: No cervical, supraclavicular, axillary or inguinal adenopathy Neurologic: AOx4, CNII-XII intact, normal strength and sensation. Psychiatric: Normal affect and mood. Lab/Radiology/Diagnostic Review: Recent Results (from the past 24 hour(s)) POCT glucose Collection Time: 07/09/19 12:11 PM Result Value Ref Range Glucose, POC 117 70 - 199 mg/dL POCT glucose Collection Time: 07/09/19 5:23 PM Result Value Ref Range Glucose, POC 139 70 - 199 mg/dL POCT glucose Collection Time: 07/09/19 9:20 PM Result Value Ref Range Glucose, POC 192 70 - 199 mg/dL Basic metabolic panel Collection Time: 07/10/19 5:53 AM Result Value Ref Range Sodium 139 135 - 145 mmol/L Potassium, pl 4.1 3.3 - 4.9 mmol/L Chloride 105 97 - 110 mmol/L CO2 26 22 - 32 mmol/L Anion gap 8 2 - 15 mmol/L BUN 8 8 - 25 mg/dL Creatinine 0.42 (L) 0.60 - 1.10 mg/dL Glucose 221 (H) 70 - 199 mg/dL Calcium 8.8 8.5 - 10.3 mg/dL CBC with auto differential Collection Time: 07/10/19 5:53 AM Result Value Ref Range WBC 3.3 (L) 3.8 - 9.9 K/cumm Hgb 10.7 (L) 11.9 - 15.5 g/dL Hct 32.5 (L) 35.6 - 45.5 % Plt 129 (L) 150 - 400 K/cumm MPV 10.5 9.1 - 12.3 fL RBC 3.69 (L) 3.90 - 5.20 M/cumm MCV 88.1 81.3 - 96.4 fL MCH 29.0 27.1 - 33.3 pg MCHC 32.9 32.3 - 35.7 g/dL RDW CV 14.3 11.1 - 14.9 % RDW SD 45.4 35.7 - 48.1 fL NRBC abs 0.00 0.00 - 0.01 K/cumm Differential, auto Collection Time: 07/10/19 5:53 AM Result Value Ref Range Neutrophil abs 1.3 (L) 1.7 - 6.5 K/cumm Imm gran abs 0.0 0.0 - 0.1 K/cumm Lymphocyte abs 1.6 0.8 - 3.3 K/cumm Monocyte abs 0.3 0.2 - 0.8 K/cumm Eosinophil abs 0.1 0.0 - 0.5 K/cumm Basophil abs 0.0 0.0 - 0.1 K/cumm Neutrophil pct 39.8 % Imm gran pct 0.3 % Lymphocyte pct 48.2 % Monocyte pct 9.0 % Eosinophil pct 2.4 % Basophil pct 0.3 % POCT glucose Collection Time: 07/10/19 8:20 AM Result Value Ref Range Glucose, POC 299 (H) 70 - 199 mg/dL Glucose comment 1 RN Notified Assessment & Plan 39 y/o F w/ hx EtOH use c/b necrotizing pancreatitis, HTN admitted from OSH in DKA in setting of pancreatitis #DKA BG to 600 at OSH w/ AG 24 and ketonuria, started on insulin drip. Off on arrival here w/ BG 120. Not on insulin at home. - Gap closed on arrival - Lantus 18U qHS, 5u TID, MDSSI -case repairer # necrotizing pancreatitis Had drain placed 03/2019 which was removed by IR 06/16/19. Presented to OSH w/ abdominal pain. CT there showed stability of chronic necrotic area of pancreas but acute changes as well. Lipase 1300 at OSH, down to 260 here. - supportive care with IVF, antiemetics, pain control #Dysfunction uterine bleeding -3 wks of bleeding, hgb stable - TVUS, OB c/s Gregory Douglas MD Cosigned by Gume James MD at 07/10/2019 2:59 PM BOTTLE BLOWING MACHINE TENDER LE BLOWING MACHINE TENDER LE BLOWING MACHINE TENDER * Ridge Castle RN - 07/09/2019 7:07 PM CST Report called to MY, RN. Pt transfer[facility] via wheelchair on RA, VSS, no distress noted. Problem list ongoing. Pt accompanied by transport staff and SINA Martinez. Belongings sent with patient. LE BLOWING MACHINE TENDER * Katelyn Orona MD - 07/09/2019 2:09 AM CST MICU Daily Progress Note Patient name: Twin Lott Admission date: 07/07/2019 Date: 07/09/2019 Subjective Interval Sugars up to 400s after she began to eat. Increased PM lantus and started mealtime insulin with better control throughout the day today. Stable for TTF. Abx: None Gtt: None Lines: None Objective Vitals: The patient's height is 160 cm (5' 3 ) and weight is 61.9 kg (136 lb 6.4 oz). Her oral temperature is 36.6 ??C (97.9 ??F). Her blood pressure is 92/61 and her pulse is 61. Her respiration is 13 and oxygen saturation is 97%. Vitals: 07/08/19 2000 07/08/19209907/08/19 2200 07/08/19 2300 BP: 96/67 103/68 94/59 92/61 BP Location: Left arm Left arm Left arm Left arm Patient Position: Lying Lying Lying Lying Pulse: 77 71 95 61 Resp: 12 9 23 13 Temp: 36.5 ??C (97.7 ??F) 36.6 ??C (97.9 ??F) TempSrc: Oral Oral SpO2: 96% 94% 96% 97% Weight: Height: LDA: MEDICATIONS Scheduled Meds: Scheduled Medications Medication Dose Route Frequency ??? enoxaparin (LOVENOX) syringe 40 mg 40 mg subcutaneous Daily-2099 ??? escitalopram (LEXAPRO) tablet 10 mg 10 mg oral Daily ??? insulin glargine (LANTUS) injection 18 Units 18 Units subcutaneous Nightly ??? insulin lispro (HumaLOG) injection 1-2 Units 1-2 Units subcutaneous Nightly ??? insulin lispro (HumaLOG) injection 1-3 Units 1-3 Units subcutaneous TID with meals ??? insulin lispro (HumaLOG) injection 5 Units 5 Units subcutaneous TID with meals ??? sodium chloride 0.9% flush 0.5-20 mL 0.5-20 mL intra-catheter Q8H EDIE ??? sodium chloride 0.9% flush 0.5-20 mL 0.5-20 mL intra-catheter Q8H EDIE PRN Meds: ??? acetaminophen, 650 mg, 650 mg at 07/08/19 1530 ??? dextrose, 15 g OR dextrose, 250 mL ??? glucagon, 1 mg ??? morphine, 2 mg, 2 mg at 07/08/19 2200 ??? ondansetron, 4 mg ??? oxyCODONE, 5 mg, 5 mg at 07/08/19 1850 ??? sodium chloride 0.9%, 0.5-20 mL ??? Saline lock IV, AND sodium chloride 0.9%, 0.5-20 mL, 10 mL at 07/08/192050 AND sodium chloride 0.9%, 0.5-20 mL Vent settings: Hemodynamic parameters for last 24 hours: Intake/Output: Intake/Output Summary (Last 24 hours) at 07/09/2019 0209 Last data filed at 07/08/2019 2340 Gross per 24 hour Intake 1370 ml Output 950 ml Net 420 ml Physical Exam: Constitutional: Well-developed, well-nourished, and in no distress HEENT: MMM, poor dentition with multiple dental caries; Normal conjunctiva, no scleral icterus, EOMI, Neck: Supple, no jugular venous distension present or lymphadenopathy Cardiovascular: Normal rate, regular rhythm, S1/S2 normal. No murmurs or extra heart sounds. Pulmonary/Chest: Normal respiratory effort and breath sounds. No wheezes or rales. Abdominal: Flat, nondistended. Tender to palpation in the LUQ with slight rebound tenderness and involuntary guarding. Bowel sounds are present. +Hepatomegaly. Well-healed scar in the LUQ at prior drain site. Musculoskeletal: No lower extremity edema; Neurological: AAO to person, place, and time; moving all extremities spontaneously Skin: Small, tracking scars across the dorsal surface of both feet. Psychiatric: Mood and affect normal. LABORATORY DATA Lab Results Component Value Date WBC 5.6 07/08/2019 HGB 11.0 (L) 07/08/2019 HCT 32.1 (L) 07/08/2019 MCV 85.8 07/08/2019 LABPLAT 142 (L) 07/08/2019 Lab Results Component Value Date GLUCOSE 231 (H) 07/08/2019 CALCIUM 8.9 07/08/2019 SODIUM 137 07/08/2019 POTASSIUM 3.4 07/08/2019 CO2 26 07/08/2019 CHLORIDE 104 07/08/2019 BUNSER 9 07/08/2019 CREATININE 0.41 (L) 07/08/2019 Lab Results Component Value Date ALT 13 07/07/2019 AST 18 07/07/2019 ALKPHOS 111 07/07/2019 BILITOT 0.4 07/07/2019 No results found for: IRON, TIBC, FERRITIN No results found for: INR, PROTIME Lab Results Component Value Date HGBA1C 14.1 (H) 07/07/2019 Lab Results Component Value Date TSH 2.23 07/08/2019 Lab Results Component Value Date SPECGRAVU 1.029 (H) 07/08/2019 BLOODUR 3+ (A) 07/08/2019 LEUKESTUR Negative 07/08/2019 No results found for: CKTOTAL, CKMB, CKMBINDEX, TROPONINI Lab Results Component Value Date CHOL 196 07/07/2019 Lab Results Component Value Date HDL 27 (L) 07/07/2019 Lab Results Component Value Date LDLCALC 127 07/07/2019 Lab Results Component Value Date TRIG 209 (H) 07/07/2019 No components found for: 25OHVITD Radiology and Other Diagnostics: No results found. Assessment/Plan Twin Lott is a 39 y.o. female with a history of necrotizing pancreatitis complicated by a pseudocyst, ETOH use disorder, and anxiety who was transferred from [facility] ED with DKA. #New onset diabetes mellitus with DKA: No prior history of of diabetes with an A1c of 5.3% (03/2019). Now presents with one month of polyuria, polydipsia, and orthostatic presyncope found to be in DKA at an outside ED. Initial glucose 605 with anion gap 24. ABG 7.33/27/93. Gap closed on arrival to [facility], off the insulin gtt (anion gap 10 w/ glucose of 124). VBG 7.33/43/49. A1c 14.1%. Diabetes is lik roslyn secondary to pancreatic insufficiency. The differential for DKA includes progressive insulinopenia (evidenced by high A1c) +/- viral URI +/- acute pancreatitis +/- odontogenic infection. - Lantus 18U qHS, Aspart 5U TIDAC, MDSSI - CXR and UA clear, RVP neg - Blood cultures pending, Panorex cancelled, UDS. ?? #Necrotizing pancreatitis w/ pseudocyst: Pancreatitis secondary to ETOH use. Recent history of pseudocyst s/p drain placement (03/2019 - 06/2019). Now symptomatic with sharp abdominal pain and nausea.Lipase 1358 at outside hospital. - Advance diet as tolerated. - EtOH <10 ?? #Hepatomegaly: Marked hepatomegaly on imaging, likely related to prior aclcohol use. AST 18/ALT 13/ALP 111. - EtOH <10 #Dysfunctional uterine bleeding Patient reports 1 month of bleeding, hgb stable. TSH 2.23. - Consider OB c/s on the floor ?? #Anxiety: Chronic, will CTM. Code Status: Full Code F (Feeding): Consistent carb A (Analgesia): Oxy PRN S (Sedation): None T (Thromboembolic) ppx: Lovenox H (Head of Bed Elevation): N/A U (stress Ulcer ppx): Not high risk G (Glycemic control): Basal/bolus Attending MD to make comment on patient risk/complexity. Cosigned by Rodney Aiken MD at 07/09/2019 7:23 PM BOTTLE BLOWING MACHINE TENDER LE BLOWING MACHINE TENDER LE BLOWING MACHINE TENDER Associated attestation - Rodney Aiken MD - 07/09/2019 7:23 PM BOTTLE BLOWING MACHINE TENDER I have seen and examined the patient on 07/09/19. I agree with the findings and plan of care as documented in the resident's/fellow's note and as discussed with the resident/fellow.. * Katelyn Orona MD - 07/08/2019 12:23 AM CST MICU Daily Progress Note Patient name: Twin Lott Admission date: 07/07/2019 Date: 07/08/2019 Subjective Interval HgbA1c 14.1. Ordered autoimmune workup for T1DM, labs pending. Given Lantus 10qHS. Continued to have sharp LUQ abdominal pain that was controlled with PRN tylenol and morphine. Tolerating PO during day. Abx: None Gtt: None Lines: None Objective Vitals: The patient's height is 160 cm (5' 3 ) and weight is 61.9 kg (136 lb 6.4 oz). Her oral temperature is 36.5 ??C (97.7 ??F). Her blood pressure is 90/62 and her pulse is 80. Her respiration is 9 and oxygen saturation is 94%. Vitals: 07/07/19 2100 07/07/19 2135 07/07/19 2200 07/07/19 2300 BP: 93/61 92/64 90/62 BP Location: Left arm Left arm Left arm Patient Position: Lying Lying Lying Pulse: 104 81 80 Resp: 19 12 9 Temp: TempSrc: SpO2: 97% 95% 94% Weight: Height: LDA: MEDICATIONS Scheduled Meds: Scheduled Medications Medication Dose Route Frequency ??? enoxaparin (LOVENOX) syringe 40 mg 40 mg subcutaneous Daily-2099 ??? escitalopram (LEXAPRO) tablet 10 mg 10 mg oral Daily ??? insulin lispro (HumaLOG) injection 1-3 Units 1-3 Units subcutaneous Q4H EDIE ??? sodium chloride 0.9% flush 0.5-20 mL 0.5-20 mL intra-catheter Q8H EDIE ??? sodium chloride 0.9% flush 0.5-20 mL 0.5-20 mL intra-catheter Q8H EDIE PRN Meds: ??? acetaminophen, 650 mg ??? dextrose, 15 g OR dextrose, 250 mL ??? glucagon, 1 mg ??? morphine, 2 mg, 2 mg at 07/08/19 0023 ??? ondansetron, 4 mg ??? sodium chloride 0.9%, 0.5-20 mL ??? Saline lock IV, AND sodium chloride 0.9%, 0.5-20 mL, 10 mL at 01/24/20 2239 AND sodium chloride 0.9%, 0.5-20 mL Vent settings: Hemodynamic parameters for last 24 hours: Intake/Output: Intake/Output Summary (Last 24 hours) at 07/08/2019 003 Last data filed at 07/07/20192134 Gross per 24 hour Intake -- Output 700 ml Net -700 ml Physical Exam: Constitutional: Well-developed, well-nourished, and in no distress HEENT: MMM, poor dentition with multiple dental caries; Normal conjunctiva, no scleral icterus, EOMI, Neck: Supple, no jugular venous distension present or lymphadenopathy Cardiovascular: Normal rate, regular rhythm, S1/S2 normal. No murmurs or extra heart sounds. Pulmonary/Chest: Normal respiratory effort and breath sounds. No wheezes or rales. Abdominal: Flat, nondistended. Tender to palpation in the LUQ with slight rebound tenderness and involuntary guarding. Bowel sounds are present. +Hepatomegaly. Well-healed scar in the LUQ at prior drain site. Musculoskeletal: No lower extremity edema; Neurological: AAO to person, place, and time; moving all extremities spontaneously Skin: Small, tracking scars across the dorsal surface of both feet. Psychiatric: Mood and affect normal. LABORATORY DATA Lab Results Component Value Date WBC 7.4 07/07/2019 HGB 11.8 (L) 07/07/2019 HCT 35.1 (L) 07/07/2019 MCV 85.4 07/07/2019 LABPLAT 153 07/07/2019 Lab Results Component Value Date GLUCOSE 218 (H) 07/07/2019 CALCIUM 9.1 07/07/2019 SODIUM 140 07/07/2019 POTASSIUM 3.8 07/07/2019 CO2 22 07/07/2019 CHLORIDE 108 07/07/2019 BUNSER 7 (L) 07/07/2019 CREATININE 0.43 (L) 07/07/2019 Lab Results Component Value Date ALT 13 07/07/2019 AST 18 07/07/2019 ALKPHOS 111 07/07/2019 BILITOT 0.4 07/07/2019 No results found for: IRON, TIBC, FERRITIN No results found for: INR, PROTIME Lab Results Component Value Date HGBA1C 14.1 (H) 07/07/2019 No results found for: TSH, [id number], [id number], THYROIDAB Lab Results Component Value Date SPECGRAVU >1.042 (H) 07/07/2019 BLOODUR 2+ (A) 07/07/2019 LEUKESTUR Negative 07/07/2019 No results found for: CKTOTAL, CKMB, CKMBINDEX, TROPONINI Lab Results Component Value Date CHOL 196 07/07/2019 Lab Results Component Value Date HDL 27 (L) 07/07/2019 Lab Results Component Value Date LDLCALC 127 07/07/2019 Lab Results Component Value Date TRIG 209 (H) 07/07/2019 No components found for: 25OHVITD Radiology and Other Diagnostics: No results found. Assessment/Plan Twin Lott is a 39 y.o. female with a history of necrotizing pancreatitis complicated by a pseudocyst, ETOH use disorder, and anxiety who was transferred from [facility] ED with DKA. #New onset diabetes mellitus with DKA: No prior history of of diabetes with an A1c of 5.3% (03/2019). Now presents with one month of polyuria, polydipsia, and orthostatic presyncope found to be in DKA at an outside ED. Initial glucose 605 with anion gap 24. ABG 7.33//93. Gap closed on arrival to [facility], off the insulin gtt (anion gap 10 w/ glucose of 124). VBG 7.33/43/49. A1c 14.1%. Diabetes is lik roslyn secondary to pancreatic insufficiency. The differential for DKA includes progressive insulinopenia (evidenced by high A1c) +/- viral URI +/- acute pancreatitis +/- odontogenic infection. - Started lantus 10U qHS + MDSSI - Will likely add NPH when the patient is able to tolerate PO. - CXR and UA clear, RVP neg - Blood cultures pending, Panorex cancelled, UDS. ?? #Necrotizing pancreatitis w/ pseudocyst: Pancreatitis secondary to ETOH use. Recent history of pseudocyst s/p drain placement (03/2019 - 06/2019). Now symptomatic with sharp abdominal pain and nausea.Lipase 1358 at outside hospital. - Advance diet as tolerated. - EtOH <10 ?? #Hepatomegaly: Marked hepatomegaly on imaging, likely related to prior aclcohol use. AST 18/ALT 13/ALP 111. - EtOH <10 ?? #Anxiety: Chronic, will CTM. Code Status: Full Code F (Feeding): ADAT A (Analgesia): Morphine 2 mg q2h PRN, acetaminophen PRN S (Sedation): None T (Thromboembolic) ppx: Lovenox H (Head of Bed Elevation): N/A U (stress Ulcer ppx): Not high risk G (Glycemic control): Basal/bolus Attending MD to make comment on patient risk/complexity. Cosigned by Rodney Aiken MD at 07/08/2019 4:50 PM BOTTLE BLOWING MACHINE TENDER LE BLOWING MACHINE TENDER LE BLOWING MACHINE TENDER Associated attestation - Rodney Aiken MD - 07/08/2019 4:50 PM BOTTLE BLOWING MACHINE TENDER I have seen and examined the patient on 07/08/19. I agree with the findings and plan of care as documented in the resident's/fellow's note and as discussed with the resident/fellow.. documented in this encounter H&P Notes * Gregory Douglas MD - 07/09/2019 7:49 PM CST General H&P Subjective HPI: This is a 39-year-old woman who was a history of necrotizing pancreatitis secondary to alcohol use which was complicated by stenosis, weeks undergone drainage by Interventional Radiology (drain removed 06/16/19). Patient has noticed progressive polyuria and polydipsia for 1-2 months. Patient additionally began to experience left upper quadrant pain, with radiation to pelvis, which was sharp and stabbing in nature, and remains on going. On presentation, she had elevated glucose to 600, potassium 4.3, bicarb 18, anion gap 24. She was also noted to have lipase of 1358. She was started on insulin drip, and subsequently transferred to [facility]. She remained afebrile hemodynamically st able. On arrival her gap was closed. Pain was managed with narcotics. Insulin drip was stopped , and patient was transitioned to glargine 18 units q.h.s. with 5u lispro with meals plus moderate dose sliding scale. She tolerated advancement of her diet well. Of note, patient has also been having abnormal uterine bleeding for last couple weeks, which is described as like her period, soaking a pad every 8 hours. test was negative. Of note, patient is currently in sustained remission fromher alcohol use disorder. Also of note, she has very poor dentition with chronic dental pain and possibly a upper right dental abscess. Past Medical History: Diagnosis Date ??? Anxiety ??? DVT (deep venous thrombosis) (CMS/HCC) ??? ETOH abuse ??? Fistula r/t necrotizing pancreatitis ??? Hypertension ??? Pancreatitis ??? PONV (postoperative nausea and vomiting) Past Surgical History: Procedure Laterality Date ??? ABSCESS CATHETER INJECTION N/A 03/27/2019 ??? ABSCESS CATHETER INJECTION N/A 04/07/2019 ??? ABSCESS CATHETER INJECTION N/A 04/19/2019 ??? ABSCESS CATHETER INJECTION N/A 05/05/2019 ??? ABSCESS CATHETER INJECTION N/A 05/26/2019 ??? ABSCESS CATHETER INJECTION N/A 06/16/2019 ??? SECTION ??? IMAGE GUIDED DRAINAGE PERITONEAL OR RETROPERITONEAL FLUID COLLECTION N/A 03/17/2019 Medications Prior to Admission Medication Sig Dispense Refill Last Dose ??? escitalopram (LEXAPRO) 10 mg tablet TK 1 T PO D 0 06/15/2019 at 0800 ??? folic acid (FOLVITE) 1 mg tablet Take 1 tablet (1 mg total) by mouth daily 30 tablet 1 06/15/2019at 0800 ??? hydrOXYzine (ATARAX) 25 mg tablet 06/15/2019 at 0800 ??? thiamine (VITAMIN B1) 100 mg tablet Take 1 tablet (100 mg total) by mouth daily 30 tablet 1 06/15/2019 at 0800 No Known Allergies Social History Tobacco Use ??? Smoking status: Current Every Day Smoker Packs/day: 0.50 ??? Smokeless tobacco: Never Used Substance Use Topics ??? Alcohol use: Not Currently Comment: None for 20 days Family History Problem Relation Age of Onset ??? Congenital heart disease Mother ??? Diabetes Mother ??? Hypertension Mother ??? Blood Clot Father Review of Systems Constitutional: Negative for chills, fever and unexpected weight change. HENT: Positive for dental problem. Negative for congestion, ear pain and hearing loss. Eyes: Negative for pain and visual disturbance. Respiratory: Negative for cough, chest tightness and shortness of breath. Cardiovascular: Negative for chest pain, palpitations and leg swelling. Gastrointestinal: Positive for abdominal pain. Negative for blood in stool, constipation, diarrhea,nausea and vomiting. Endocrine: Negative for cold intolerance and heat intolerance. Genitourinary: Negative for difficulty urinating, dysuria and frequency. Musculoskeletal: Negative for arthralgias, gait problem and myalgias. Skin: Negative for rash and wound. Neurological: Negative for light-headedness and headaches. Hematological: Does not bruise/bleed easily. Psychiatric/Behavioral: Negative for dysphoric mood and suicidal ideas. The patient is not nervous/anxious. Objective Vitals: Arrival Vitals [07/07/19 1645] Temp 36.3 ??C (97.3 ??F) Pulse 98 Resp 16 BP 100/64 SpO2 95 % Temp src Oral Heart Rate Source Monitor Patient Position Lying BP Location Left arm FiO2 (%) 24hr Min/Max: Temp Min: 36.3 ??C (97.3 ??F) Max: 36.8 ??C (98.2 ??F) Pulse Min: 60 Max: 104 BP Min: 73/47 Max: 109/72 Resp Min: 6 Max: 45 SpO2 Min: 92 % Max: 99 % Most Recent : Vitals: 07/09/19 1902 BP: Pulse: 104 Resp: 28 Temp: SpO2: 96% I/O last 2 completed shifts: In: 1050 [P.O.:1020; I.V.:30] Out: 1700 [Urine:1700] No intake/output data recorded. Physical Exam Vitals signs reviewed. Constitutional: General: She is not in acute distress. Appearance: She is well-developed. She is not diaphoretic. HENT: Head: Normocephalic and atraumatic. Right Ear: External ear normal. Left Ear: External ear normal. Nose: Nose normal. Mouth/Throat: Pharynx: No oropharyngeal exudate. Comments: Poor dentition Eyes: General: No scleral icterus. Right eye: No discharge. Left eye: No discharge. Conjunctiva/sclera: Conjunctivae normal. Pupils: Pupils are equal, round, and reactive to light. Neck: Musculoskeletal: Normal range of motion and neck supple. Thyroid: No thyromegaly. Vascular: No JVD. Trachea: No tracheal deviation. Cardiovascular: Rate and Rhythm: Normal rate and regular rhythm. Heart sounds: Normal heart sounds. No murmur. No friction rub. No gallop. Pulmonary: Effort: Pulmonary effort is normal. No respiratory distress. Breath sounds: Normal breath sounds. No stridor. No wheezing or rales. Abdominal: General: Bowel sounds are normal. There is no distension. Palpations: Abdomen is soft. There is no mass. Tenderness: There is no tenderness. There is no guarding or rebound. Hernia: No hernia is present. Musculoskeletal: Normal range of motion. Lymphadenopathy: Cervical: No cervical adenopathy. Skin: General: Skin is warm and dry. Capillary Refill: Capillary refill takes less than 2 seconds. Neurological: Mental Status: She is alert and oriented to person, place, and time. Cranial Nerves: No cranial nerve deficit. Psychiatric: Behavior: Behavior normal. Thought Content: Thought content normal. Judgment: Judgment normal. Assessment and Plan 39 y/o F w/ hx EtOH use c/b necrotizing pancreatitis, HTN admitted from OSH in DKA in setting of pancreatitis #DKA BG to 600 at OSH w/ AG 24 and ketonuria. Now with closed anion gap, controlled well on basal - bolus - Lantus 18U qHS, 5u TID, MDSSI -case repairer - will possibly need to transition to 70/30 due to insurance issues # necrotizing pancreatitis Had drain placed 03/2019 which was removed by IR 06/16/19. Presented to OSH w/ abdominal pain. CT there showed stability of chronic necrotic area of pancreas but acute changes as well. Lipase 1300 at OSH, down to 260 here. - supportive care with IVF, antiemetics, pain control, diet as tolerated # abnormal uterine bleeding 3 wks of bleeding, hgb stable, beta-HCG negative -OB c/s FC Gregroy Douglas MD Cosigned by Gume James MD at 07/10/2019 3:02 PM BOTTLE BLOWING MACHINE TENDER LE BLOWING MACHINE TENDER LE BLOWING MACHINE TENDER LE BLOWING MACHINE TENDER Associated attestation - Gume James, MD - 07/10/2019 3:02 PM BOTTLE BLOWING MACHINE TENDER I have seen and examined the patient on 07/10/19. I agree with the findings and plan of care as documented in the resident's/fellow's note and as discussed with the resident/fellow. New onset DM: Suspect post-pancreatitis. Likely insulin deficiency is etiology, although patient reports a strong family history of DM2, cannot rule out insulin resistance as contributing factor. DKAhas resolved. Continue lantus 22u, lispro 5 units TID. Will get diabetes education. Patient seems well educated about her own health care and is likely to do well on insulin. Vaginal bleeding: Unit Aide consult. Plan TV US today. * Arsenio Mcconnell MD - 07/07/2019 2:04 PM CST MICU History and Physical Patient: Twin Lott Room: [place] [id number]/[place] [address] Service Attending: Uriel Ogden MD CHIEF COMPLAINT: Abdominal pain ADMITTING DIAGNOSIS: DKA HPI: Twin Lott is a 39 y.o. old female with history of necrotizing pancreatitis complicated by a pseudocyst, ETOH use disorder, and anxiety who was transferred from [facility] ED with DKA. The patient has no prior history of diabetes. She first noticed polyuria and polydipsia one month ago, and has had progressively worsening symptoms. Since its onset, she has additionally felt light-headed (denies vertigo) with orthostatic changes and has had increasingly blurry vision. She is awarethat her pancreatitis predisposed her to diabetes, and suspected that she did have diabetes, but did not seek any care for this. This continued until yesterday, when after eating lunch, she suddenly developed abdominal pain. Pain was located in the LUQ with radiation to the pelvis, sharp/stabbing in character, and constant without relieving factors. She has some associated nausea but no vomiting.It was similar to prior pancreatitis episodes she's had in the past, and so she presented to the EDafter it persisted through the night. At the outside hospital, initial workup was notable for a glucose of 604, K 4.3, HCO3 18, and aniongap of 24. ABG 7.33/. Lipase 1358. The patient was started on an insulin gtt and her glucose trended to 250 prior to transfer. She arrived to the [facility] MICU off of insulin gtt. On arrival, she wasafebrile (T 36.3), HR 98, RR 16, 100/64, 95% on room air. Initial POC glucose was 120 and anion gapwas 10. She continued to complain of LUQ abdominal pain, but denied any new symptoms. She additionally notes that she had chest congestion for the last three days with an associated cough and clearmucous production. She denies having any sick contacts, fevers, chills, headaches, coryza, chest pain, dyspnea, diarrhea, or skin rash. Of note, the patient has a recent history of necrotizing pancreatitis complicated by pancreatic pseudocyst. She underwent percutaneous drain placement per IR on 03/17/19. There was some concern for fistulization with the pancreatic duct, for which she underwent ERCP (06/16/2019) which did not reveal fi stulization. Her percutaneous drain was subsequently removed (06/16/2019). She has since been doing well without significant abdominal pain and tolerated a regular diet. 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 HOME MEDICATIONS : escitalopram (LEXAPRO) 10 mg tablet folic acid (FOLVITE) 1 mg tablet hydrOXYzine (ATARAX) 25 mg tablet thiamine (VITAMIN B1) 100 mg tablet Family history: - Dad: Budd-Chiari syndrome - Mom: T2DM, CHF, CAD s/p CABG, dementia - Brother: T2DM - Sister: T2DM - No family history of T1DM or pancreatitis. Social history: - Lives independently. Previously worked at [employer] for 16 years, but lost her job due to alcohol use disorder. - Previously drank a fifth Vodka per day x 3 years. Last drink 03/08/19. - Prior smoker with 10 pack year history. - No drug use. Scheduled Medications: Scheduled Medications Medication Dose Route Frequency ??? enoxaparin (LOVENOX) syringe 40 mg 40 mg subcutaneous Daily-2100 ??? [START ON 07/08/2019] escitalopram (LEXAPRO) tablet 10 mg 10 mg oral Daily ??? insulin lispro (HumaLOG) injection 1-3 Units 1-3 Units subcutaneous Q4H EDIE ??? sodium chloride 0.9% flush 0.5-20 mL 0.5-20 mL intra-catheter Q8H EDIE ??? sodium chloride 0.9% flush 0.5-20 mL 0.5-20 mL intra-catheter Q8H EDIE Continuous Medications: Current Facility-Administered Medications Medication Dose Route Frequency Last Dose PRN Medications: Review of Systems: Review of Systems per HPI and otherwise all other systems are negative. Objective Vitals: Vitals: 07/07/19 1800 BP: 110/73 Pulse: 103 Resp: 22 Temp: SpO2: 92% 24hr Min/Max: Temp Min: 36.3 ??C (97.3 ??F) Max: 36.3 ??C (97.3 ??F) Pulse Min: 97 Max: 103 BP Min: 100/64 Max: 110/73 Resp Min: 16 Max: 22 SpO2 Min: 92 % Max: 97 % Current Vitals: [facility] 06/11/2019 (Exact Date) Physical exam: Physical Exam Constitutional: General: She is not in acute distress. Appearance: Normal appearance. She is normal weight. She is not toxic-appearing. HENT: Head: Normocephalic and atraumatic. Mouth/Throat: Mouth: Mucous membranes are moist. Comments: Multiple dental caries. Eyes: General: No scleral icterus. Conjunctiva/sclera: Conjunctivae normal. Pupils: Pupils are equal, round, and reactive to light. Neck: Comments: No lymphadenopathy. No JVD. Cardiovascular: Rate and Rhythm: Normal rate and regular rhythm. Pulses: Normal pulses. Heart sounds: No murmur. No gallop. Pulmonary: Effort: Pulmonary effort is normal. No respiratory distress. Breath sounds: Normal breath sounds. No wheezing, rhonchi or rales. Abdominal: Comments: Flat, nondistended. Tender to palpation in the LUQ with slight rebound tenderness and involuntary guarding. Bowel sounds are present. +Hepatomegaly. Well-healed scar in the LUQ at prior drain site. Musculoskeletal: General: No swelling, tenderness or deformity. Skin: Comments: Small, tracking scars across the dorsal surface of both feet. Neurological: General: No focal deficit present. Mental Status: She is alert and oriented to person, place, and time. Psychiatric: Mood and Affect: Mood normal. Behavior: Behavior normal. Lab/Radiology/Diagnostic Review: Recent Results (from the past 24 hour(s)) POCT glucose Collection Time: 07/07/19 4:49 PM Result Value Ref Range Glucose, POC 120 70 - 199 mg/dL Comprehensive metabolic panel Collection Time: 07/07/19 5:22 PM Result Value Ref Range Sodium 140 135 - 145 mmol/L Potassium, pl 3.8 3.3 - 4.9 mmol/L Chloride 108 97 - 110 mmol/L CO2 22 22 - 32 mmol/L Anion gap 10 2 - 15 mmol/L BUN 7 (L) 8 - 25 mg/dL Creatinine 0.43 (L) 0.60 - 1.10 mg/dL Glucose 139 70 - 199 mg/dL Calcium 9.1 8.5 - 10.3 mg/dL Bilirubin, total 0.4 0.1 - 1.2 mg/dL Protein, pl 6.6 6.5 - 8.5 g/dL Albumin 3.3 (L) 3.5 - 5.0 g/dL Alk phos 111 40 - 130 Units/L ALT 13 7 - 45 Units/L AST 18 10 - 45 Units/L Magnesium Collection Time: 07/07/19 5:22 PM Result Value Ref Range Magnesium 1.5 1.4 - 2.5 mg/dL Phosphorus Collection Time: 07/07/19 5:22 PM Result Value Ref Range Phosphorus, pl 2.7 2.3 - 4.5 mg/dL CBC with auto differential Collection Time: 07/07/19 5:22 PM Result Value Ref Range WBC 7.4 3.8 - 9.9 K/cumm Hgb 11.8 (L) 11.9 - 15.5 g/dL Hct 35.1 (L) 35.6 - 45.5 % Plt 153 150 - 400 K/cumm MPV 10.4 9.1 - 12.3 fL RBC 4.11 3.90 - 5.20 M/cumm MCV 85.4 81.3 - 96.4 fL MCH 28.7 27.1 - 33.3 pg MCHC 33.6 32.3 - 35.7 g/dL RDW CV 13.9 11.1 - 14.9 % RDW SD 43.1 35.7 - 48.1 fL NRBC abs 0.00 0.00 - 0.01 K/cumm Lactate, whole blood Collection Time: 07/07/19 5:22 PM Result Value Ref Range Lactate, bld 1.0 0.7 - 2.0 mmol/L Lipase Collection Time: 07/07/19 5:22 PM Result Value Ref Range Lipase 260 (H) 10 - 99 Units/L Blood gas, arterial Collection Time: 07/07/19 5:22 PM Result Value Ref Range pH, Art POC 7.33 (L) 7.35 - 7.45 PCO2, Arterial 43 35 - 45 mmHg PO2, Arterial 49 (L) 83 - 108 mmHg HCO3 Art (Calculated) 23 20 - 30 mmol/L BE, art -3 mmol/L O2 Sat Art (Measured) 80 (L) 90 - 95 % Differential, auto Collection Time: 07/07/19 5:22 PM Result Value Ref Range Neutrophil abs 4.2 1.7 - 6.5 K/cumm Imm gran abs 0.0 0.0 - 0.1 K/cumm Lymphocyte abs 2.3 0.8 - 3.3 K/cumm Monocyte abs 0.7 0.2 - 0.8 K/cumm Eosinophil abs 0.1 0.0 - 0.5 K/cumm Basophil abs 0.0 0.0 - 0.1 K/cumm Neutrophil pct 56.5 % Imm gran pct 0.5 % Lymphocyte pct 31.5 % Monocyte pct 9.5 % Eosinophil pct 1.7 % Basophil pct 0.3 % POCT glucose Collection Time: 07/07/19 5:46 PM Result Value Ref Range Glucose, POC 145 70 - 199 mg/dL PROCEDURES/IMAGING: IR Inject Abscess Catheter Narrative: EXAMINATION: DRAINAGE CATHETER EVALUATION AND REMOVAL HISTORY: 39-year-old woman with necrotizing pancreatitis complicated by a peripancreatic fluid collection, which has been managed by percutaneous drain. ATTENDING PRESENCE: Li Nascimento M.D., the attending radiologist, was present from the beginning to the end of the procedure. SEDATION: Local anesthesia only TECHNIQUE: Prior to beginning the procedure, Chrisney Protocol was used to confirm the patient's identity and planned procedure. Fluoroscopy time has been recorded in the electronic medical record. After obtaining a mechanical engineering teacher image, the catheter was injected with dilute contrast and multiple fluoroscopic images obtained. The sutures on the catheter were cut and the catheter was removed without difficulty. A sterile dressing was applied to the skin site. ESTIMATED BLOOD LOSS: Minimal. CONDITION: Stable DISCHARGED TO: Recovery and then to Home. FINDINGS: Images from the catheter check demonstrate the cavity resolved with no fistula to the pancreatic duct. The catheter was draining trace clear yellow fluid. Impression: Resolved peripancreatic fluid collection no persistent fistula to the pancreatic duct. The catheter was removed. If questions arise, please contact us by calling [phone]. Dictated by: Zenia Salazar M.D. The radiology attending physician has personally reviewed this study, and had reviewed and/or edited this written report and agrees with it. Electronically signed by: Li Nascimento M.D. [place] ERCP Biliary and Pancreatic The images from this study are not interpreted by Radiology. Please refer to the physician's procedure / OR operative note. ASSESSMENT & PLAN Twin Lott is a 39 y.o. old female with history of necrotizing pancreatitis complicated by a pseudocyst, anxiety who was transferred from [facility] ED with DKA. #New onset diabetes mellitus with DKA: No prior history of of diabetes with an A1c of 5.3% (03/2019). Now presents with one month of polyuria, polydipsia, and orthostatic presyncope found to be in DKA at an outside ED. Initial glucose 605 with anion gap 24. ABG 7.33/27/93. Gap closed on arrival to [facility], off the insulin gtt (anion gap 10 w/ glucose of 124). VBG 7.33/43/49. A1c 14.1%. Diabetes is lik roslyn secondary to pancreatic insufficiency. The differential for DKA includes progressive insulinopenia (evidenced by high A1c) +/- viral URI +/- acute pancreatitis +/- odontogenic infection. - Started low dose sliding scale tonight, while advancing diet. - Will add NPH when the patient is able to tolerate PO. - Ordered CXR, blood cultures, UA, RVP, Panorex, UDS. - Will upload imaging from outside hospital. #Necrotizing pancreatitis w/ pseudocyst: Pancreatitis secondary to ETOH use. Recent history of pseudocyst s/p drain placement (03/2019 - 06/2019). Now symptomatic with sharp abdominal pain and nausea.Lipase 1358 at outside hospital. - Advance diet as tolerated. - Will upload imaging from outside hospital, and consider CT abdomen if imaging is insufficient. - Consult biliary in AM. - Ordered ETOH level. #Hepatomegaly: Marked hepatomegaly on imaging, likely related to prior aclcohol use. AST 18/ALT 13/ALP 111. - Ordered ETOH level. #Anxiety: Chronic. F (Feeding): Advance diet as tolerated. A (Analgesia): Tylenol PRN S (Sedation): Not indicated. T (Thromboembolic) ppx: Lovenox H (Head of Bed Elevation): 30 degrees U (stress Ulcer ppx): Not indicated G (Glycemic control): As above. Code Status: FULL CODE Arsenio Mcconnell MD Internal Medicine PGY-0 Cosigned by Hector Wynn MD at 07/09/2019 3:52 PM BOTTLE BLOWING MACHINE TENDER LE BLOWING MACHINE TENDER LE BLOWING MACHINE TENDER Associated attestation - Hector Wynn MD - 07/09/2019 3:52 PM BOTTLE BLOWING MACHINE TENDER I have seen and examined the patient on 07/07/2017. I agree with the findings and plan of care as documented in the resident's/fellow's note. Hector Brown MD documented in this encounter Consult Notes * Renetta Peck MD - 07/10/2019 8:30 AM CSTAssociated Order(s): IP CONSULT TO SUCCESSFACTORS CONSULTANT [id number] Call back number: [phone] Pelvic bed No: inpatient hospital bed CC: abnormal uterine bleeding HPI: 39 y.o. pre-menopausal female, s/p BTL, with a history of necrotizing pancreatitis secondary to alcohol use s/p drain with IR, HTN, DVT, and tobacco use, who was admitted yesterday to the MICU for DKA in the setting of pancreatitis. The patient reported that she has been having abnormal bleeding for the past 3 weeks (LMP 3 weeks ago), soaking through one pad every 8 hours. Hgb is stable from 11.8->10.7, bHCG is negative, pelvic exam not performed; therefore, SECRETARY RECEPTIONIST was consulted for further evaluation. The patient reports a long-standing history of irregular menses since menarche. Over the last 3 weeks, she became more concerned because she had her usual 7-day menses and then has continued to bleeddaily afterwards. She states she changes a pad every half day. She denies any dizziness associated with her bleeding. She also endorses some pelvic pain/cramping during this time. Past Medical History: Diagnosis Date ??? Anxiety ??? DVT (deep venous thrombosis) (CMS/HCC) ??? ETOH abuse ??? Fistula r/t necrotizing pancreatitis ??? Hypertension ??? Pancreatitis ??? PONV (postoperative nausea and vomiting) Past Surgical History: Procedure Laterality Date ??? ABSCESS CATHETER INJECTION N/A 03/27/2019 ??? ABSCESS CATHETER INJECTION N/A 04/07/2019 ??? ABSCESS CATHETER INJECTION N/A 04/19/2019 ??? ABSCESS CATHETER INJECTION N/A 05/05/2019 ??? ABSCESS CATHETER INJECTION N/A 05/26/2019 ??? ABSCESS CATHETER INJECTION N/A 06/16/2019 ??? SECTION ??? IMAGE GUIDED DRAINAGE PERITONEAL OR RETROPERITONEAL FLUID COLLECTION N/A 03/17/2019 OB History 4 Para 3 Term 3 AB 1 Living 3 SAB 1 TAB Ectopic Multiple Live Births 3 SECRETARY RECEPTIONIST History: Patient's last menstrual period was 06/11/2019 (exact date). Menses: irregular, lasting 7 days, not painful Pap History: was normal. history of dysplasia s/p laser at age 20 STD History: none Contraception: Tubal ligation HRT: pre-menopausal HOME MEDICATIONS : escitalopram (LEXAPRO) 10 mg tablet folic acid (FOLVITE) 1 mg tablet hydrOXYzine (ATARAX) 25 mg tablet insulin glargine (LANTUS) 100 unit/mL injection insulin lispro (HumaLOG) 100 unit/mL insulin pen thiamine (VITAMIN B1) 100 mg tablet Allergies as of 07/07/2019 ??? (No Known Allergies) Family History: father with + lupus anticoagulant testing, maternal aunt with breast cancer; deniesany history of SECRETARY RECEPTIONIST malignancy Social History Tobacco Use ??? Smoking status: Current Every Day Smoker Packs/day: 0.50 ??? Smokeless tobacco: Never Used Substance Use Topics ??? Alcohol use: Not Currently Comment: None for 20 days Sexual History: reports monogamous relationship with fiance Safe at home: Yes, currently living with her brother while in recovery Physical Exam: Temp: [97.7 ??F-98.2 ??F] 97.7 ??F Pulse: [60-104] 73 Resp: [6-28] 18 BP: (73-116)/(47-79) 110/64 General: NAD, mood appropriate Pulmonary: non-labored Cardiovascular: Regular rate and rhythm Abdomen: soft, non-tender, non-distended, without rebound or guarding Extremities: Warm and well perfused GENITAL EXAM: External:normal appearing and no lesions Vagina: normal appearing, minimal dark blood in the vaginal vault Cervix: no lesions Uterus: not enlarged, non-tender, moblie and exam limited due to body habitus Adnexa: non-tender and no palpable masses, no cervical motion tenderness Recent Labs Lab Units 07/10/19 0553 07/09/19 0524 07/08/19 0025 WBC K/cumm 3.3* 4.4 5.6 HEMOGLOBIN g/dL 10.7* 9.8* 11.0* HEMATOCRIT % 32.5* 30.1* 32.1* PLATELETS K/cumm 129* 132* 142* [facility] results [facility]: [facility] Laboratory review: Lab results in the last 24 hours: Recent Results (from the past 24 hour(s)) POCT glucose Collection Time: 07/09/19 5:23 PM Result Value Ref Range Glucose, POC 139 70 - 199 mg/dL POCT glucose Collection Time: 07/09/19 9:20 PM Result Value Ref Range Glucose, POC 192 70 - 199 mg/dL Basic metabolic panel Collection Time: 07/10/19 5:53 AM Result Value Ref Range Sodium 139 135 - 145 mmol/L Potassium, pl 4.1 3.3 - 4.9 mmol/L Chloride 105 97 - 110 mmol/L CO2 26 22 - 32 mmol/L Anion gap 8 2 - 15 mmol/L BUN 8 8 - 25 mg/dL Creatinine 0.42 (L) 0.60 - 1.10 mg/dL Glucose 221 (H) 70 - 199 mg/dL Calcium 8.8 8.5 - 10.3 mg/dL CBC with auto differential Collection Time: 07/10/19 5:53 AM Result Value Ref Range WBC 3.3 (L) 3.8 - 9.9 K/cumm Hgb 10.7 (L) 11.9 - 15.5 g/dL Hct 32.5 (L) 35.6 - 45.5 % Plt 129 (L) 150 - 400 K/cumm MPV 10.5 9.1 - 12.3 fL RBC 3.69 (L) 3.90 - 5.20 M/cumm MCV 88.1 81.3 - 96.4 fL MCH 29.0 27.1 - 33.3 pg MCHC 32.9 32.3 - 35.7 g/dL RDW CV 14.3 11.1 - 14.9 % RDW SD 45.4 35.7 - 48.1 fL NRBC abs 0.00 0.00 - 0.01 K/cumm Differential, auto Collection Time: 07/10/19 5:53 AM Result Value Ref Range Neutrophil abs 1.3 (L) 1.7 - 6.5 K/cumm Imm gran abs 0.0 0.0 - 0.1 K/cumm Lymphocyte abs 1.6 0.8 - 3.3 K/cumm Monocyte abs 0.3 0.2 - 0.8 K/cumm Eosinophil abs 0.1 0.0 - 0.5 K/cumm Basophil abs 0.0 0.0 - 0.1 K/cumm Neutrophil pct 39.8 % Imm gran pct 0.3 % Lymphocyte pct 48.2 % Monocyte pct 9.0 % Eosinophil pct 2.4 % Basophil pct 0.3 % POCT glucose Collection Time: 07/10/19 8:20 AM Result Value Ref Range Glucose, POC 299 (H) 70 - 199 mg/dL Glucose comment 1 RN Notified POCT glucose Collection Time: 07/10/19 11:36 AM Result Value Ref Range Glucose, POC 204 (H) 70 - 199 mg/dL Glucose comment 1 RN Notified US Pelvis Complete Collection Time: 07/10/19 12:45 PM Result Value Ref Range Cul de Sac No free fluid visualized Endometrial Thickness 5.4 mm&millimeters Imaging: Formal Ultrasound: - Uterus: 74 mm x 44 mm x 51 mm, anteverted - Endometrial stripe 5.4 mm - Right Ovary: 34 mm x 20 mm x 22 mm, simple cyst 17 mm x 14 mm x 16 mm - Left Ovary: 38 mm x 14 mm x 30 mm - No free fluid - Nabothian cyst on cervix ASSESSMENT/PLAN: Twin Lott is a 39 year old, female, s/p BTL, LMP 3 weeks ago, with history of EtOH use c/b necrotizing pancreatitis, HTN, DVT, Tobacco use, admitted from OSH in DKA in setting of pancreatitis, with abnormal uterine bleeding. #Abnormal Uterine Bleeding: -long-standing history of irregular menses -likely exacerbated by acute illness, bleeding gradually improving -bHCG negative, TSH wnl -Hgb 11.8 -> 10.7; asymptomatic -Formal pelvic US showed normal uterus and ovaries with thin endometrial stripe -Pap collected -GC/CT, Trich sent -Defer endometrial biopsy given age and relatively thin stripe; can consider outpatient -Discussed hormonal regulation of menses - patient is not a candidate for PENNY's secondary to age and tobacco use; reports family history of lupus anticoagulant though no personal testing; patient notinterested in POP's -Discussed hormonal IUD to manage menses given low systemic absorption of hormone -Recommend outpatient follow-up for consideration of IUD placement #MOC: s/p BTL Michelle Tony MD, MPHS PGY-2, Obstetrics & Gynecology Cosigned by Neela Messer MD at 07/10/2019 4:16 PM BOTTLE BLOWING MACHINE TENDER LE BLOWING MACHINE TENDER LE BLOWING MACHINE TENDER LE BLOWING MACHINE TENDER Associated attestation - Neela Messer MD - 07/10/2019 4:16 PM BOTTLE BLOWING MACHINE TENDER I have seen and examined the patient on 07/10/19. I agree with the findings and plan of care as documented in the resident's/fellow's note. Ultrasound reviewed and reassuring. Will address AUB in outpatient setting given no evidence of acute hemodynamic instability. * Deanna Sam, RD - 07/08/2019 11:39 AM CSTAssociated Order(s): IP CONSULT TO NUTRITION SERVICES Nutrition Screen Note Pt. Screened for nutritional assessment secondary to weight loss. Pt with history of necrotizing pancreatitis complicated by a pseudocyst, ETOH use disorder, and anxiety who was transferred from [facility] ED with DKA. ?? The patient has no prior history of diabetes. She first noticed polyuria and polydipsia one month ago, and has had progressively worsening symptoms. The patient has a recent history of necrotizing pancreatitis complicated by pancreatic pseudocyst. She underwent percutaneous drain placement per IR on 03/17/19. There was some concern for fistulization with the pancreatic duct, for which she underwent ERCP (06/16/2019) which did not reveal fistulization. Her percutaneous drain was subsequently removed (06/16/2019). She has since been doing well without significant abdominal pain and tolerated a regular diet Social history: - Lives independently. Previously worked at [employer] for 16 years, but lost her job due to alcohol use disorder. - Previously drank a fifth Vodka per day x 3 years. Last drink 03/08/19. - Prior smoker with 10 pack year history. - No drug use Past Medical History: Diagnosis Date ??? Anxiety ??? DVT (deep venous thrombosis) (CMS/HCC) ??? ETOH abuse ??? Fistula r/t necrotizing pancreatitis ??? Hypertension ??? Pancreatitis ??? PONV (postoperative nausea and vomiting) Past Surgical History: Procedure Laterality Date ??? ABSCESS CATHETER INJECTION N/A 03/27/2019 ??? ABSCESS CATHETER INJECTION N/A 04/07/2019 ??? ABSCESS CATHETER INJECTION N/A 04/19/2019 ??? ABSCESS CATHETER INJECTION N/A 05/05/2019 ??? ABSCESS CATHETER INJECTION N/A 05/26/2019 ??? ABSCESS CATHETER INJECTION N/A 06/16/2019 ??? SECTION ??? IMAGE GUIDED DRAINAGE PERITONEAL OR RETROPERITONEAL FLUID COLLECTION N/A 03/17/2019 Anthropometrics Weight: 61.9 kg (136 lb 6.4 oz) Admission Weight : 61.9 kg Weight Change: -3.90 kg (-8.60 lbs) IBW/kg (Calculated) : 52.2 kg Height: 160 cm (5' 3 ) BMI Amputation Adjustment: No Weight in (lb) to have BMI = 25: 140.8 BMI (Calculated): 24.2 Dietary Orders (From admission, onward) Start Ordered 07/07/19 1655 NPO Diet Diet effective now 07/07/19 1657 Nutrition Screen What diet do you follow at home?: Regular Have You Recently Lost Weight Without Trying?: Yes (Comment) How Much Weight Have You Lost?: 31.8 kg (70 lb) What is the Timeframe of Weight Change?: 6 months Poor Oral Intake for Four or More Days Prior to Admission: No Wt Readings from Last 10 Encounters: 07/07/19 61.9 kg (136 lb 6.4 oz) 06/16/19 65.8 kg (145 lb) 05/24/19 65.8 kg (145 lb 1.6 oz) 03/15/19 81.8 kg (180 lb 4.8 oz) ASPEN Malnutrition Assessment: Chronic Illness/Injury Severe Energy Intake: < 75% energy intake compared to estimated energy needs > (or equal to) 1 month Weight Loss: > 10% in 6 months Body Fat: Severe Patient Meets Criteria for Severe Malnutrition: Yes Assessment / Impression: Pt states that she has lost 80 lb since December,. She weighed 210 lb then, she weighs 134 lb now. She initially lost weight due to pancreatitis, but her intake improved andweight stabilized; until a few months ago. At that time, she began to have symptoms of diabetes: Constant thirst and urinating and she ate very little. She was drinking a lot of regular soda. She reports that she did have greasy stool' when her pancreatitis was bad, but currently her bowel habits have normalized: 1-2 firm stools per day. Pt to be advanced to diabetic diet. Reviewed goals of the diet with patient. She seems accepting ofthe changes she will need to make. She is already familiar with principles of diet since there is afamily history of diabetes. She will need more nutrition counselling and nursing diabetes educationonce transferred out of ICU. LE BLOWING MACHINE TENDER documented in this encounter Nursing Notes * Mendel Robertson RN - 07/11/2019 4:56 PM CST Pt is DC. Discharge teachings and documentation were provided and pt verbalized understanding. Belongings were sent with the pt. Family will provide transport and and will shredder picker at 1800, hospitality suite notified. LE BLOWING MACHINE TENDER * Rosibel Lazaro RN - 07/11/2019 2:29 PM CST 07/11/19 1418 Pre-Education Assessment Time In 1310 Time Out 1410 Units of Service 4 Visit Type Initial Introduction ID verified;Alert/ oriented x 4;Education provided with patient approval;Patient present for education;Patient present and able to participate (Provider called [phone] and says pt to be d/c on basal/bolus insulin therapy New dm Pt unable to get her insulin here at the hospoital, Pt to discusse her insulins with the pharmacy, to order insulin pens.) Provider Medical/Major Gifts Officer/PCP (a1c 14.1 h/o panceatitis, pt has very poor dental hygiene and says she has had abscess , gave her dental resources and pt says there is a clinic she has been in contact with. ) Treatment Prior To Admission New Onset Knowledge Base Beginner Hemaglobin A1c Knows value (more dm eduation is needed, Pt did see insole coverer this adm , 60 grams of carbs at each meal. is what she said she was told. Pt has had a significant recent wt loss of 80 pounds. ) Home Testing (pt was given a gluccocard expression meter/md to order supplies from this pharmacy 17 dollars for 100 strips. [facility] pharmacy could not provide a mter due to pts' insurance ) Exercise Habits Active Hypoglycemia Never Home Supplies Yes needs assistance Inpatient Recommendations RN to practice with patient Injections (RN had her give the lunch time insulin injection and told educator she did fine with this. Pt has started log sheet after edu. explained basal bolus insullin . Pt can do premeal plus ssi at meals MDis aware. basal at bedtime) RN to reinforce with patient Carb counting;Insulin dose calculation;Insulin injection site rotation;Consistent carb diet (pt was assigned oneview videos per the RN to watch on diabetes. ) Patient/Designated Caregiver to Continue with Diabetes Education (specify date/time in comments) Consults Recommended Statement Processor (Discussed type 1 vs type 2 dm more f/u is needed. Discussed DKA and prevention ) Discharge Recommendations Insulin Pen Lantus Solostar Pre-filled Pen (pkg of 5);Humalog Kwik Pen (pkg of 5) (pt is aware her insulins are being filled at her pharmacy but she will need to shredder picker after she leaves hospital and not miss doses. Also told her to look at her pens with the pharamacist and go over the insulins and have them answer in furhter quesions.) Pen Addy Ultra fine 4 mm Glucometer Glucocard Expression Meter Test Strips Glucocard Expression test strips Lancets Lancets Blood Glucose Testing Regimen 4 times per day Diabetes/Education Follow Up Primary Care Provider;Outpatient Diabetes Education;Statement Processor Additional Recommendations Home Health followup for evaluation and education (glucagon is a RX and more dm education is needed. Pt is awrea to get that education that her health insurance covers. Discussuion of cont glucos monitors were discussed. ) LE BLOWING MACHINE TENDER documented in this encounter Miscellaneous Notes * Plan of Care - Mendel Robertson RN - 07/11/2019 10:02 AM CST Goals: Problem: Health Behavior: Goal: Understanding of discharge needs will improve Outcome: Progressing Problem: Activity: Goal: Mobility will improve Outcome: Progressing Problem: Lack of Knowledge: Goal: Understanding of ways to prevent future skin breakdown will improve Outcome: Progressing Goal: Ability to identify appropriate dietary choices will improve Outcome: Progressing Problem: Nutritional: Goal: Dietary intake will improve Outcome: Progressing Goal: Ability to maintain a balanced intake and output will improve Outcome: Progressing Problem: Skin Integrity: Goal: Risk for impaired skin integrity will decrease Outcome: Progressing Goal: Ability to demonstrate warm and dry skin will improve Outcome: Progressing Goal: Circulation will improve to fullest extent possible Outcome: Progressing Problem: Activity: Goal: Risk for activity intolerance will decrease Outcome: Progressing Problem: Lack of Knowledge: Goal: Knowledge of diagnostic tests will improve Outcome: Progressing Goal: Knowledge of disease or condition will improve Outcome: Progressing Goal: Knowledge of safety precautions will improve Outcome: Progressing Goal: Knowledge of the prescribed therapeutic regimen will improve Outcome: Progressing Problem: Health Behavior: Goal: Ability to state signs and symptoms to report to health care provider will improve Outcome: Progressing Problem: Physical Regulation: Goal: Ability to maintain clinical measurements within normal limits will improve Outcome: Progressing Problem: Infection Risk: Goal: Will remain free from infection Outcome: Progressing Problem: Safety: Goal: Ability to remain free from injury will improve Outcome: Progressing Goal: Will remain free from falls Outcome: Progressing Problem: Self-Care: Goal: Ability to participate in self-care as condition permits will improve Outcome: Progressing Problem: Sensory: Goal: Pain level will decrease Outcome: Progressing Goal: Ability to develop a pain control plan will improve Outcome: Progressing Problem: Skin Integrity: Goal: Risk for impaired skin integrity will decrease Outcome: Progressing Problem: Tissue Perfusion: Goal: Risk factors for ineffective tissue perfusion will decrease Outcome: Progressing LE BLOWING MACHINE TENDER * Plan of Alicia Mccarthy RN - 07/11/2019 5:37 AM CST Problem: Health Behavior: Goal: Understanding of discharge needs will improve Outcome: Progressing Problem: Activity: Goal: Mobility will improve Outcome: Progressing Problem: Lack of Knowledge: Goal: Understanding of ways to prevent future skin breakdown will improve Outcome: Progressing Goal: Ability to identify appropriate dietary choices will improve Outcome: Progressing Problem: Nutritional: Goal: Dietary intake will improve Outcome: Progressing Goal: Ability to maintain a balanced intake and output will improve Outcome: Progressing Problem: Skin Integrity: Goal: Risk for impaired skin integrity will decrease Outcome: Progressing Goal: Ability to demonstrate warm and dry skin will improve Outcome: Progressing Goal: Circulation will improve to fullest extent possible Outcome: Progressing Problem: Activity: Goal: Risk for activity intolerance will decrease Outcome: Progressing Problem: Lack of Knowledge: Goal: Knowledge of diagnostic tests will improve Outcome: Progressing Goal: Knowledge of disease or condition will improve Outcome: Progressing Goal: Knowledge of safety precautions will improve Outcome: Progressing Goal: Knowledge of the prescribed therapeutic regimen will improve Outcome: Progressing Problem: Health Behavior: Goal: Ability to state signs and symptoms to report to health care provider will improve Outcome: Progressing Problem: Physical Regulation: Goal: Ability to maintain clinical measurements within normal limits will improve Outcome: Progressing Problem: Infection Risk: Goal: Will remain free from infection Outcome: Progressing Problem: Safety: Goal: Ability to remain free from injury will improve Outcome: Progressing Goal: Will remain free from falls Outcome: Progressing Problem: Self-Care: Goal: Ability to participate in self-care as condition permits will improve Outcome: Progressing Problem: Sensory: Goal: Pain level will decrease Outcome: Progressing Goal: Ability to develop a pain control plan will improve Outcome: Progressing Problem: Skin Integrity: Goal: Risk for impaired skin integrity will decrease Outcome: Progressing Problem: Tissue Perfusion: Goal: Risk factors for ineffective tissue perfusion will decrease Outcome: Progressing Goals: Clinical Goals for the Shift: Pt will report decreased level of pain. Summary: LE BLOWING MACHINE TENDER * Provider Query - Saira Weaver RN - 07/10/2019 11:37 AM CST Please clarify the diagnosis of DKA: ___ Resolved Prior to arrival to [facility] _XX_ Present on Admission and is now resolved ___ Present on Admission and is still being monitored, evaluated, or treated ___ Other, specify below ___ Clinically unable to determine Clinical Indicators/Treatments: Labs on Arrival: 07/07/2019 16:49 07/07/2019 17:22 07/07/2019 17:46 07/07/2019 19:13 Glucose 139 Glucose, POC 120 145 213 (H) 07/07/2019 17:22 07/08/2019 00:25 07/09/2019 05:24 07/10/2019 05:53 Anion gap 10 7 8 8 H&P: transferred from [facility] ED with DKA -At the outside hospital, initial workup was notable for a glucose of 604, K 4.3, HCO3 18, and anion gap of 24. -Arrived to the [facility] MICU off of insulin gtt. Initial POC glucose was 120 and anion gap was 10. 07/08 MICU Txf to Med: On presentation to the ICU patient's AG had closed. Orders/Interventions: -monitoring glucose/BMP -subcutaneous insulin Provider Response: Use of terms such as likely, suspected, possible, or probable (associated with a specific diagnosisthat is being evaluated, monitored, or treated as if it exists) are acceptable and can be coded in the inpatient setting when documented at the time of discharge. This documentation will become part of the patient???s medical record. Sincerely, AUSTYN Camacho, RN Health Information Management LE BLOWING MACHINE TENDER * Provider Query - Saira Weaver RN - 07/10/2019 11:31 AM CST Please specify a diagnosis, if appropriate, that reflects the patient???s nutritional status and document in the medical record and on the form below. Indicate Present on Admission Status. _X_ Severe Malnutrition ___ Malnutrition, unable to determine severity ___ No Nutritional Deficit ___ Other, specify below ___ Clinically unable to determine Clinical Indicators/Treatments: 07/08 Metal Painter Consult: Nutrition assessment states: Patient meets criteria for Severe Malnutrition based on ASPEN Criteria. Wt Readings from Last 10 Encounters: 07/07/19 61.9 kg (136 lb 6.4 oz) 06/16/19 65.8 kg (145 lb) 05/24/19 65.8 kg (145 lb 1.6 oz) 03/15/19 81.8 kg (180 lb 4.8 oz) ?? ASPEN Malnutrition Assessment:?? Chronic Illness/Injury Severe Energy Intake: < 75% energy intake compared to estimated energy needs > (or equal to) 1 month Weight Loss: > 10% in 6 months Body Fat: Severe Patient Meets Criteria for Severe Malnutrition: Yes Co-morbid conditions: pancreatitis, new dx of DM Other (risk factors): abd pain Orders/Interventions: -monitoring glucose -monitoring labs -strict I&O Provider Response: Characteristics Malnutrition in the Context of ACUTE Illness or Injury < 3 months Malnutrition in the Context of CHRONIC Illness or Injury > 3 months Malnutrition in the Context of Social or Environmental Circumstances Moderate Malnutrition Severe Malnutrition Moderate Malnutrition Severe Malnutrition Moderate Malnutrition Severe Malnutrition 1: Energy intake (as a % of estimated energy requirements) < 75% of estimated energy requirement for >7 days <= 50% of estimated energy requirement for >= 5 days < 75% of estimated energy requirement for >= 1 month <= 75% of estimated energy requirement for >= 1 month < 75% of estimated energy requirement for >= 3 months <= 50% of estimated energy requirement for >= 1 month 2: Weight loss (as a % of weight lost from baseline) 1-2% in 1 wk 5% in 1 mo 7.5% in 3 mo >2% in 1 wk >5% in 1 mo >7.5% in 3 mo 5% in 1 mo 7.5% in 3 mo 10% in 6 mo 20% in 1 yr >5% in 1 mo >7.5% in 3 mo >10% in 6 mo >20% in 1 yr 5% in 1 mo 7.5% in 3 mo 10% in 6 mo 20% in 1 yr >5% in 1 mo >7.5% in 3 mo >10% in 6 mo >20% in 1 yr Physical Findings of 3: Loss of body fat 4: Loss of muscle mass or 5: Fluid accumulation Mild Findings: ? sub q fat ? muscle ? fluid/edema Moderate Findings: ? sub q fat ? muscle ? fluid/edema Mild Findings: ? sub q fat ? muscle ? fluid/edema Severe Findings: ? sub q fat ? muscle ? fluid/edema Mild Findings: ? sub q fat ? muscle ? fluid/edema Severe Findings: ? sub q fat ? muscle ? fluid/edema 6: Reduced Brimming Machine Operator Strength n/a Measurably reduced per device standards n/a Measurably reduced per device standards n/a Measurably reduced per device standards Criteria for Mild Malnutrition (in the context of Acute Illness of Injury, or Chronic Illness or Injury or Social or Environmental Circumstances) is defined as 1 characteristic outlined above with the established moderate or severe parameters. Use of terms such as likely, suspected, possible, or probable (associated with a specific diagnosisthat is being evaluated, monitored, or treated as if it exists) are acceptable and can be coded in the inpatient setting when documented at the time of discharge. This documentation will become part of the patient's medical record. Sincerely, AUSTYN Camacho, RN Health Information Management LE BLOWING MACHINE TENDER * Plan of Care - Mendel Robertson RN - 07/10/2019 7:21 AM CST Goals: Problem: Health Behavior: Goal: Understanding of discharge needs will improve Outcome: Progressing Problem: Activity: Goal: Mobility will improve Outcome: Progressing Problem: Lack of Knowledge: Goal: Understanding of ways to prevent future skin breakdown will improve Outcome: Progressing Goal: Ability to identify appropriate dietary choices will improve Outcome: Progressing Problem: Nutritional: Goal: Dietary intake will improve Outcome: Progressing Goal: Ability to maintain a balanced intake and output will improve Outcome: Progressing Problem: Skin Integrity: Goal: Risk for impaired skin integrity will decrease Outcome: Progressing Goal: Ability to demonstrate warm and dry skin will improve Outcome: Progressing Goal: Circulation will improve to fullest extent possible Outcome: Progressing Problem: Activity: Goal: Risk for activity intolerance will decrease Outcome: Progressing Problem: Lack of Knowledge: Goal: Knowledge of diagnostic tests will improve Outcome: Progressing Goal: Knowledge of disease or condition will improve Outcome: Progressing Goal: Knowledge of safety precautions will improve Outcome: Progressing Goal: Knowledge of the prescribed therapeutic regimen will improve Outcome: Progressing Problem: Health Behavior: Goal: Ability to state signs and symptoms to report to health care provider will improve Outcome: Progressing Problem: Physical Regulation: Goal: Ability to maintain clinical measurements within normal limits will improve Outcome: Progressing Problem: Infection Risk: Goal: Will remain free from infection Outcome: Progressing Problem: Safety: Goal: Ability to remain free from injury will improve Outcome: Progressing Goal: Will remain free from falls Outcome: Progressing Problem: Self-Care: Goal: Ability to participate in self-care as condition permits will improve Outcome: Progressing Problem: Sensory: Goal: Pain level will decrease Outcome: Progressing Goal: Ability to develop a pain control plan will improve Outcome: Progressing Problem: Skin Integrity: Goal: Risk for impaired skin integrity will decrease Outcome: Progressing Problem: Tissue Perfusion: Goal: Risk factors for ineffective tissue perfusion will decrease Outcome: Progressing LE BLOWING MACHINE TENDER * Plan of Annmarie - Whit Merritt RN - 07/09/2019 7:57 PM CST Problem: Health Behavior: Goal: Understanding of discharge needs will improve Outcome: Progressing Goals: Clinical Goals for the Shift: Pt will report decreased level of pain. Summary: LE BLOWING MACHINE TENDER * Plan of Care - Ridge Castle RN - 07/09/2019 10:01 AM BOTTLE BLOWING MACHINE TENDER Goals: Clinical Goals for the Shift: Pt will report decreased level of pain. Summary: Pt reports pain is better managed, will monitor. LE BLOWING MACHINE TENDER * Plan of Care - Casper Way RN - 07/08/2019 9:56 PM CST Goals: Clinical Goals for the Shift: Monitor vitals/ Monitor labs/ Monitor BG/ Maintain comfort and monitor pain Summary: Continue to monitor patient and update provider as needed LE BLOWING MACHINE TENDER * Significant Event - Felix Velásquez MD - 07/08/2019 2:15 PM BOTTLE BLOWING MACHINE TENDER ICU TO MEDICINE HANDOFF TOOL Primary reason for ICU admission: DKA Twin Lott is a 39 y.o. old female with history of necrotizing pancreatitis complicated by a pseudocyst, ETOH use disorder, and anxiety who was transferred from [facility] ED with DKA. ?? The patient has no prior history of diabetes. She first noticed polyuria and polydipsia one month ago, and has had progressively worsening symptoms. Since its onset, she has additionally felt light-headed (denies vertigo) with orthostatic changes and has had increasingly blurry vision. She is awarethat her pancreatitis predisposed her to diabetes, and suspected that she did have diabetes, but did not seek any care for this. This continued until yesterday, when after eating lunch, she suddenly developed abdominal pain. Pain was located in the LUQ with radiation to the pelvis, sharp/stabbing in character, and constant without relieving factors. She has some associated nausea but no vomiting.It was similar to prior pancreatitis episodes she's had in the past, and so she presented to the EDafter it persisted through the night. ?? At the outside hospital, initial workup was notable for a glucose of 604, K 4.3, HCO3 18, and aniongap of 24. ABG 7.33/27/93. Lipase 1358. The patient was started on an insulin gtt and her glucose trended to 250 prior to transfer. She arrived to the [facility] MICU off of insulin gtt. On arrival, she wasafebrile (T 36.3), HR 98, RR 16, 100/64, 95% on room air. Initial POC glucose was 120 and anion gapwas 10. She continued to complain of LUQ abdominal pain, but denied any new symptoms. She additionally notes that she had chest congestion for the last three days with an associated cough and clearmucous production. She denies having any sick contacts, fevers, chills, headaches, coryza, chest pain, dyspnea, diarrhea, or skin rash. ?? Of note, the patient has a recent history of necrotizing pancreatitis complicated by pancreatic pseudocyst. She underwent percutaneous drain placement per IR on 03/17/19. There was some concern for fistulization with the pancreatic duct, for which she underwent ERCP (06/16/2019) which did not reveal fi stulization. Her percutaneous drain was subsequently removed (06/16/2019). She has since been doing well without significant abdominal pain and tolerated a regular diet. Brief ICU Course: On presentation to the ICU patient's AG had closed, was given 10u lantus and lispro slide. For her pacreatitis, patient was initially NPO, however, diet was quickly advanced and tolerated. Sugars continued to be high as she began to eat, so lantus increased to 18qHS with 5TID lispro and MDSSI with good control of sugars. Also of note patient reports 3 wks of mild-moderate period-like bleeding without discharge or dysuria. TSH 2.23 and HCG negative on arrival. Active consultants: None New findings that warrant follow-up and pending studies: F/u vaginal bleeding DM education PERTINENT physical exam findings on day of transfer: LUQ pain that is improved Important changes to home medications: Will need new diabetes meds for discharge Medications to consider stopping prior to discharge: [] New antipsychotic (started for ICU delirium): [] Other: Major problems/Plans: #New onset diabetes mellitus with DKA:??No prior history of of diabetes with an A1c of 5.3% (03/2019). Now presents with one month of polyuria, polydipsia, and orthostatic presyncope found to be in DKA at an outside ED. Initial glucose 605 with anion gap 24. ABG 7.33/27/93. [facility] (anion gap 10 w/ glucose of 124). VBG 7.33/43/49. A1c 14.1%. Diabetes is li chary secondary to pancreatic insufficiency. The differential for DKA includes progressive insulinopenia (evidenced by high A1c) +/- viral URI +/- acute pancreatitis +/- odontogenic infection. - Lantus 18U qHS, Aspart 5U TIDAC, MDSSI - CXR and UA clear, RVP neg - Blood cultures pending, Panorex cancelled, UDS. ?? #Necrotizing pancreatitis w/ pseudocyst:??Pancreatitis secondary to ETOH use. Recent history of pseudocyst s/p drain placement (03/2019 - 06/2019). Now symptomatic with sharp abdominal pain and nausea. Lipase 1358 at outside hospital. - Advance diet as tolerated. - EtOH <10 ?? #Hepatomegaly:??Marked hepatomegaly on imaging, likely related to prior aclcohol use. AST 18/ALT 13/ALP 111. - EtOH <10 ?? #Dysfunctional uterine bleeding Patient reports 1 month of bleeding, hgb stable. TSH 2.23. HCG neg. - Consider OB c/s on the floor ?? #Anxiety:??Chronic, will CTM. Rehab/Ancillary Consults: [] BI (trauma patient with LOC) [] Chemical dependency [] PT [] OT [] Speech [] PM&R [] SMART (stroke patient) [] Wound care Anticoagulation therapy: [] VTE Prophylaxis [] Heparin [x] Lovenox [] SCDs [] IVC Filter [] Other: [] None - Reason: [] Therapeutic Anticoagulation Indication: [] Heparin [] Lovenox [] Other: Any previous issues with tolerating anticoagulants? [] Yes [x] No Describe: Venous duplex performed? [] Yes ---> Most recent findings: [x] No Current antimicrobial therapy: Note - Planned duration may be a number of days or a criterion such as while drain in place or until blood cultures negative [x] N/A - No current antimicrobial therapy ??? [Antibiotic/Antimicrobial_Name] Indication: Start Date: Planned Duration: ??? [Antibiotic/Antimicrobial_Name] Indication: Start Date: Planned Duration: To insert additional antimicrobials, use the .SICUabx smart phrase. Lines/drains/airways present Peripheral IV 07/07/19 20 G Right Antecubital (Active) Number of days: 1 Trach size, last date change (NA if not applicable): NA To-do list prior to transfer: Make sure the following monitors or precautions are ordered if indicated: Telemetry [] Yes [x] No Continuous pulse oximetry [] Yes [x] No DAREN precautions [] Yes [x] No Difficult airway [] Yes [x] No Trach orders/signage [] Yes [x] No Size/Type: Date placed: Responsible service: Glycemic control plan [x] Long acting insulin [x] SSI --> change from scheduled to AC/HS blood glucose checks [] None ----> d/c ICU insulin and blood glucose checks Central line necessary? [] Yes [] No [x] N/A Weathers catheter necessary? [] Yes [] No [x] N/A [x] Discontinue K/Mg/Phos repletion order (if applicable) [x] Discontinue stress ulcer prophylaxis if no longer indicated [x] Signed & Held orders reconciled (all orders either released or discontinued) [x] Sign-out was called to Bert Douglas of the Med 2 service. LE BLOWING MACHINE TENDER * Plan of Care - Ridge Castle RN - 07/08/2019 11:29 AM BOTTLE BLOWING MACHINE TENDER Goals: Clinical Goals for the Shift: Pain management. Maintain adequate oxygenation/cardiac output. Summary: Pt still reporting frequent pain to right abdomen. Pain medicine regime changed per MD, will monitor. LE BLOWING MACHINE TENDER * Plan of Care - Yumiko Rocha RN - 07/08/2019 6:55 AM CST Goals: Clinical Goals for the Shift: Pain management. Maintain adequate oxygenation/cardiac output. Problem: Health Behavior: Goal: Understanding of discharge needs will improve 07/08/2019654 by Yumiko Rocha RN Outcome: Progressing 07/08/2019654 by Yumiko Rocha RN Outcome: Progressing Problem: Activity: Goal: Mobility will improve 07/08/2019654 by Yumiko Rocha RN Outcome: Progressing 07/08/2019654 by Yumiko Rocha RN Outcome: Progressing Problem: Lack of Knowledge: Goal: Understanding of ways to prevent future skin breakdown will improve 07/08/2019654 by Yumiko Rocha RN Outcome: Progressing 07/08/2019654 by Yumiko Rocha RN Outcome: Progressing Goal: Ability to identify appropriate dietary choices will improve 07/08/2019654 by Yumiko Rocha RN Outcome: Progressing 07/08/2019654 by Yumiko Rocha RN Outcome: Progressing Problem: Nutritional: Goal: Dietary intake will improve 07/08/2019654 by Yumiko Rocha RN Outcome: Progressing 07/08/2019654 by Yumiko Rocha RN Outcome: Progressing Goal: Ability to maintain a balanced intake and output will improve 07/08/2019654 by Yumiko Rocha RN Outcome: Progressing 07/08/2019654 by Yumiko Rocha RN Outcome: Progressing Problem: Skin Integrity: Goal: Risk for impaired skin integrity will decrease 07/08/2019654 by Yumiko Rocha RN Outcome: Progressing 07/08/2019654 by Yumiko Rocha RN Outcome: Progressing Goal: Ability to demonstrate warm and dry skin will improve 07/08/2019654 by Yumiko Rocha RN Outcome: Progressing 07/08/2019654 by Yumiko Rocha RN Outcome: Progressing Goal: Circulation will improve to fullest extent possible 07/08/2019654 by Yumiko Rocha RN Outcome: Progressing 07/08/2019654 by Yumiko Rocha RN Outcome: Progressing Summary: Pt VSS on RA overnight. Electrolytes repleated. Pain adequately managed with 2mg IVP Morphine PRN. Possible plan to transfer to medicine floor in AM. LE BLOWING MACHINE TENDER * Plan of Care - Alia Hough RN - 07/07/2019 5:07 PM CST Goals: Clinical Goals for the Shift: Pain control, remain hemodynamically stable Summary: Admit LE BLOWING MACHINE TENDER documented in this encounter Plan of Treatment Not on file documented as of this encounter Procedures Procedure Name Priority Date/Time Associated Diagnosis Comments POCT GLUCOSE DEVICE Routine 07/11/2019 5 :18 PM BOTTLE BLOWING MACHINE TENDER POCT GLUCOSE DEVICE Routine 07/11/2019 1 2:44 PM BOTTLE BLOWING MACHINE TENDER POCT GLUCOSE DEVICE Routine 07/11/2019 1 1:35 AM BOTTLE BLOWING MACHINE TENDER POCT GLUCOSE DEVICE Routine 07/11/2019 1 0:34 AM BOTTLE BLOWING MACHINE TENDER POCT GLUCOSE DEVICE Routine 07/11/2019 8 :10 AM BOTTLE BLOWING MACHINE TENDER FOLATE Routine 07/10/2019 11:31 PM BOTTLE BLOWING MACHINE TENDER BASIC METABOLIC PANEL Routine 07/10/2019 11:31 PM BOTTLE BLOWING MACHINE TENDER POCT GLUCOSE DEVICE Routine 07/10/2019 8 :36 PM BOTTLE BLOWING MACHINE TENDER POCT GLUCOSE DEVICE Routine 07/10/2019 4 :33 PM BOTTLE BLOWING MACHINE TENDER N. GONORRHOEAE/C. TRACHOMATIS AMPLIFICATION Routine 07/10/2019 2:57 PM BOTTLE BLOWING MACHINE TENDER TRICHOMONAS VAGINALIS PCR Routine 07/10/2019 2:57 PM BOTTLE BLOWING MACHINE TENDER CYTOLOGY Routine 07/10/2019 2:56 PM BOTTLE BLOWING MACHINE TENDER US PELVIS COMPLETE IP Routine 07/10/2019 12 :45 PM BOTTLE BLOWING MACHINE TENDER POCT GLUCOSE DEVICE Routine 07/10/2019 1 1:36 AM BOTTLE BLOWING MACHINE TENDER POCT GLUCOSE DEVICE Routine 07/10/2019 8 :20 AM BOTTLE BLOWING MACHINE TENDER DIFFERENTIAL AUTO Routine 07/10/2019 5:5 3 AM BOTTLE BLOWING MACHINE TENDER CBC WITH AUTO DIFFERENTIAL Routine 07/10/2019 5:53 AM BOTTLE BLOWING MACHINE TENDER BASIC METABOLIC PANEL Routine 07/10/2019 5:53 AM BOTTLE BLOWING MACHINE TENDER POCT GLUCOSE DEVICE Routine 07/09/2019 9 :20 PM BOTTLE BLOWING MACHINE TENDER MRSA ONLY (STAPHYLOCOCCUS AUREUS) CULTURE Routine 07/09/2019 6:20 PM BOTTLE BLOWING MACHINE TENDER POCT GLUCOSE DEVICE Routine 07/09/2019 5 :23 PM BOTTLE BLOWING MACHINE TENDER POCT GLUCOSE DEVICE Routine 07/09/2019 1 2:11 PM BOTTLE BLOWING MACHINE TENDER POCT GLUCOSE DEVICE Routine 07/09/2019 8 :04 AM BOTTLE BLOWING MACHINE TENDER DIFFERENTIAL AUTO Routine 07/09/2019 5:2 4 AM BOTTLE BLOWING MACHINE TENDER CBC WITH AUTO DIFFERENTIAL Routine 07/09/2019 5:24 AM BOTTLE BLOWING MACHINE TENDER HCG, BLOOD, QUANTITATIVE Routine 07/09/2019 5:24 AM BOTTLE BLOWING MACHINE TENDER BASIC METABOLIC PANEL Routine 07/09/2019 5:24 AM BOTTLE BLOWING MACHINE TENDER POCT GLUCOSE DEVICE Routine 07/08/2019 8 :05 PM BOTTLE BLOWING MACHINE TENDER POCT GLUCOSE DEVICE Routine 07/08/2019 5 :59 PM BOTTLE BLOWING MACHINE TENDER POCT GLUCOSE DEVICE Routine 07/08/2019 4 :17 PM BOTTLE BLOWING MACHINE TENDER THYROID FUNCTION CASCADE Routine 07/08/2019 3:38 PM BOTTLE BLOWING MACHINE TENDER POCT GLUCOSE DEVICE Routine 07/08/2019 1 :07 PM BOTTLE BLOWING MACHINE TENDER URINALYSIS AND REFLEX TO MICROSCOPIC Routine 07/08/2019 11:21 AM BOTTLE BLOWING MACHINE TENDER URINALYSIS, MICROSCOPIC ONLY Routine 07/08/2019 11:21 AM BOTTLE BLOWING MACHINE TENDER POCT GLUCOSE DEVICE Routine 07/08/2019 8 :39 AM BOTTLE BLOWING MACHINE TENDER ISLET ANTIGEN 2 (IA-2) ANTIBODY Routine 07/08/2019 6:11 AM BOTTLE BLOWING MACHINE TENDER POCT GLUCOSE DEVICE Routine 07/08/2019 3 :47 AM BOTTLE BLOWING MACHINE TENDER DIFFERENTIAL AUTO Routine 07/08/2019 12: 25 AM BOTTLE BLOWING MACHINE TENDER CBC WITH AUTO DIFFERENTIAL Routine 07/08/2019 12:25 AM BOTTLE BLOWING MACHINE TENDER MAGNESIUM Routine 07/08/2019 12:25 AM BOTTLE BLOWING MACHINE TENDER BASIC METABOLIC PANEL Routine 07/08/2019 12:25 AM BOTTLE BLOWING MACHINE TENDER POCT GLUCOSE DEVICE Routine 07/08/2019 1 2:21 AM BOTTLE BLOWING MACHINE TENDER GLUTAMIC ACID DECARBOXYLASE Routine 07/07/2019 9:24 PM BOTTLE BLOWING MACHINE TENDER INSULIN ANTIBODY Routine 07/07/2019 9:24 PM BOTTLE BLOWING MACHINE TENDER C-PEPTIDE STAT 07/07/2019 9:24 PM BOTTLE BLOWING MACHINE TENDER ETHANOL STAT 07/07/2019 9:24 PM BOTTLE BLOWING MACHINE TENDER POCT GLUCOSE DEVICE Routine 07/07/2019 9 :08 PM BOTTLE BLOWING MACHINE TENDER POCT GLUCOSE DEVICE Routine 07/07/2019 7 :13 [address] BOTTLE BLOWING MACHINE TENDER CT BODY OUTSIDE CONSULT Routine 07/07/2019 7:07 PM BOTTLE BLOWING MACHINE TENDER Diagnosis unknown XR CHEST 1 VIEW ED Urgent/IP Urgent 07/07/2019 6:11 PM BOTTLE BLOWING MACHINE TENDER POCT GLUCOSE DEVICE Routine 07/07/2019 5 :46 PM BOTTLE BLOWING MACHINE TENDER DIFFERENTIAL AUTO STAT 07/07/2019 5:2 2 PM BOTTLE BLOWING MACHINE TENDER URINALYSIS AND REFLEX TO MICROSCOPIC AND CULTURE Routine 07/07/2019 5:22 PM BOTTLE BLOWING MACHINE TENDER RESPIRATORY PATHOGEN PANEL Routine 07/07/2019 5:22 PM BOTTLE BLOWING MACHINE TENDER CBC WITH AUTO DIFFERENTIAL STAT 07/07/2019 5:22 PM BOTTLE BLOWING MACHINE TENDER LACTATE, WHOLE BLOOD STAT 07/07/2019 5:22 PM BOTTLE BLOWING MACHINE TENDER HCG, URINE, QUALITATIVE Routine 07/07/2019 5:22 PM BOTTLE BLOWING MACHINE TENDER BLOOD CULTURE Routine 07/07/2019 5:22 PM BOTTLE BLOWING MACHINE TENDER BLOOD CULTURE Routine 07/07/2019 5:22 PM BOTTLE BLOWING MACHINE TENDER URINALYSIS, MICROSCOPIC ONLY Routine 07/07/2019 5:22 PM BOTTLE BLOWING MACHINE TENDER INFECTION PREVENTION MRSA ONLY (STAPHYLOCOCCUS AUREUS) CULTURE Routine 07/07/2019 5:22 PM BOTTLE BLOWING MACHINE TENDER PHOSPHORUS STAT 07/07/2019 5:22 PM BOTTLE BLOWING MACHINE TENDER MAGNESIUM STAT 07/07/2019 5:22 PM BOTTLE BLOWING MACHINE TENDER LIPASE Routine 07/07/2019 5:22 PM BOTTLE BLOWING MACHINE TENDER HEMOGLOBIN A1C Routine 07/07/2019 5:22 PM BOTTLE BLOWING MACHINE TENDER BLOOD GAS, ARTERIAL STAT 07/07/2019 5 :22 PM BOTTLE BLOWING MACHINE TENDER LIPID PANEL Routine 07/07/2019 5:22 PM BOTTLE BLOWING MACHINE TENDER COMPREHENSIVE METABOLIC PANEL STAT 07/07/2019 5:22 PM BOTTLE BLOWING MACHINE TENDER ECG 12-LEAD STAT 07/07/2019 4:58 PM BOTTLE BLOWING MACHINE TENDER POCT GLUCOSE DEVICE Routine 07/07/2019 4 :49 PM BOTTLE BLOWING MACHINE TENDER documented in this encounter Results * (ABNORMAL) POCT glucose (07/11/2019 5:18 PM BOTTLE BLOWING MACHINE TENDER) Glucose, POC 282(H) 70 - 199 mg/dL [facility] Blood specimen (specimen) 07/11/2019 5:18 PM BOTTLE BLOWING MACHINE TENDER 07/11/2019 5:18 PM BOTTLE BLOWING MACHINE TENDER us Gume James MD LAB POCT ORDERABLES - DEV ICE Final Result Performing Organization Address [facility] Co de Phone Number [facility] [place] [address] * POCT glucose (07/11/2019 12:44 PM BOTTLE BLOWING MACHINE TENDER) Glucose, POC 192 70 - 199 mg/dL [facility] Blood specimen (specimen) 07/11/2019 12:44 PM BOTTLE BLOWING MACHINE TENDER 07/11/2019 12:44 PM BOTTLE BLOWING MACHINE TENDER us Gume James MD LAB POCT ORDERABLES - DEV ICE Final Result Performing Organization Address [facility] de Phone Number [facility] [place] [address] * (ABNORMAL) POCT glucose (07/11/2019 11:35 AM BOTTLE BLOWING MACHINE TENDER) Glucose, POC 271(H) 70 - 199 mg/dL [facility] Blood specimen (specimen) 07/11/2019 11:35 AM BOTTLE BLOWING MACHINE TENDER 07/11/2019 11:35 AM BOTTLE BLOWING MACHINE TENDER us Gume James MD LAB POCT ORDERABLES - DEV ICE Final Result Performing Organization Address [facility] [place] [address] * (ABNORMAL) POCT glucose (07/11/2019 10:34 AM BOTTLE BLOWING MACHINE TENDER) Glucose, POC 296(H) 70 - 199 mg/dL [facility] Blood specimen (specimen) 07/11/2019 10:34 AM BOTTLE BLOWING MACHINE TENDER 07/11/2019 10:34 AM BOTTLE BLOWING MACHINE TENDER us Gume James MD LAB POCT ORDERABLES - DEV ICE Final Result Performing Organization Address City/[facility]/ZIP Co de Phone Number [facility] [place] [address] * (ABNORMAL) POCT glucose (07/11/2019 8:10 AM BOTTLE BLOWING MACHINE TENDER) Glucose, POC 320(H) 70 - 199 mg/dL [facility] Glucose comment 1 RN Notified [facility] Blood specimen (specimen) 07/11/2019 8:10 AM BOTTLE BLOWING MACHINE TENDER 07/11/2019 8:10 AM BOTTLE BLOWING MACHINE TENDER Brayan Richter MD LAB POCT ORDERABLES - DEVICE Final Result Performing Organization Address [facility] Co de Phone Number [facility] [place] [address] * (ABNORMAL) Basic metabolic panel (07/10/2019 11:31 PM BOTTLE BLOWING MACHINE TENDER) [facility] Signature Sodium 139 135 - 145 mmol/L [facility] Potassium, pl 4.0 3.3 - 4.9 mmol/L [facility] Chloride 101 97 - 110 mmol/L [facility] CO2 27 22 - 32 mmol/L [facility] Anion gap 11 2 - 15 mmol/L [facility] BUN 7(L) 8 - 25 mg/dL [facility] Creatinine 0.46(L) 0.60 - 1.10 mg/dL [facility] Glucose 257(H) 70 - 199 mg/dL [facility] Comment: Interpretive Data Fasting glucose >/= 126 [...] interpretive data was last revised 2017. Calcium 9.1 8.5 - 10.3 mg/dL [facility] Blood specimen (specimen) 07/10/2019 11:31 PM BOTTLE BLOWING MACHINE TENDER 07/11/2019 12:05 AM BOTTLE BLOWING MACHINE TENDER us Brayan Richter MD LAB BLOOD ORDERABLE S Final Result Performing Organization Address City/[facility]/ZIP Co de Phone Number [facility] [place] [address] * Folate (07/10/2019 11:31 PM BOTTLE BLOWING MACHINE TENDER) Folic acid 14.1 >=5.0 ng/mL [facility] Blood specimen (specimen) 07/10/2019 11:31 PM BOTTLE BLOWING MACHINE TENDER 07/11/2019 12:05 AM BOTTLE BLOWING MACHINE TENDER us Brayan Richter MD LAB BLOOD ORDERABLE S Final Result Performing Organization Address City/[facility] Co de Phone Number [facility] [place] [address] * POCT glucose (07/10/2019 8:36 PM BOTTLE BLOWING MACHINE TENDER) Glucose, POC 124 70 - 199 mg/dL [facility] Blood specimen (specimen) 07/10/2019 8:36 PM BOTTLE BLOWING MACHINE TENDER 07/10/2019 8:36 PM BOTTLE BLOWING MACHINE TENDER us Brayan Richter MD LAB POCT ORDERABLES - DEVICE Final Result Performing Organization Address City/[facility] Co de Phone Number [facility] [place] [address] * POCT glucose (07/10/2019 4:33 PM BOTTLE BLOWING MACHINE TENDER) Glucose, POC 116 70 - 199 mg/dL [facility] Blood specimen (specimen) 07/10/2019 4:33 PM BOTTLE BLOWING MACHINE TENDER 07/10/2019 4:33 PM BOTTLE BLOWING MACHINE TENDER Brayan Richter MD LAB POCT ORDERABLES - DEVICE Final Result Performing Organization Address [facility] Co de Phone Number [facility] [place] [address] * Trichomonas vaginalis PCR (07/10/2019 2:57 PM BOTTLE BLOWING MACHINE TENDER) Pathologist [facility] [place] Trichomonas DNA Not Detected Not Detected [facility] Comment: Interpretive Data Testing performed by [facility] using Nucleic Acid Amplification with the [employer] Xpert TV Assay. ??This assay detects DNA from Trichomonas vaginalis using Real-Time PCR. ??This test is cleared by the [facility] Food and Drug Administration for endocervical swabs, vaginal swabs, female urine (first-catch), and male urine (first-catch). ??The performance characteristics for these specimen types have been verified by the [facility]. ??Excess blood in specimens may be inhibitory and result in false negative results. ??The performance of this test has not been evaluated in women or individuals less than 18 years of age. Current Interpretive Data was last revised on 2019. Endocervical 07/10/2019 2:57 PM BOTTLE BLOWING MACHINE TENDER 07/10/2019 3:55 PM BOTTLE BLOWING MACHINE TENDER Brayan Richter MD LAB MICROBIOLOGY - GENERAL ORDERABLES Final Result Performing Organization Address [facility] Co de Phone Number [facility] [place] [address] * N. gonorrhoeae/C. trachomatis Amplification Endocervical (07/10/2019 2:57 PM BOTTLE BLOWING MACHINE TENDER) [facility] C. trachomatis Not Detected Not Detected [facility] N. gonorrhoeae Not Detected Not Detected [facility] Comment: Interpretive Data Testing performed by the [facility]. This assay detects Chlamydia trachomatis and Neisseria gonorrhoeae by nucleic acid amplification testing (NAAT). This test is approved by the [facility] Food and Drug Administration and the performance characteristics have been verified by the laboratory. The performance characteristics of this test have not been evaluated in individuals less than 14 years of age. Current Interpretive Data was last revised on 2018. Endocervical (None) 07/10/19 20 2:57 PM BOTTLE BLOWING MACHINE TENDER 07/11/2019 5:41 PM BOTTLE BLOWING MACHINE TENDER Brayan Richter MD LAB MICROBIOLOGY - GENERAL ORDERABLES Final Result [facility] Department [place] [address] * Cytology (07/10/2019 2:56 PM BOTTLE BLOWING MACHINE TENDER) Fluid 07/10/2019 2:56 PM BOTTLE BLOWING MACHINE TENDER 07/10/2019 3:24 PM BOTTLE BLOWING MACHINE TENDER Narrative PATHOLOGY [facility] - 07/20/2019 1:52 PM BOTTLE BLOWING MACHINE TENDER EPIC results best viewed via link to PDF [facility] [place] [address] CYTOPATHOLOGY REPORT FINAL Patient Name: ??TWIN LOTT Gender: ??F : ??1980 (Age: 39) Address: ??[address] [place] [address] Hospital #: ??[id number] Service: ??Medical Location: ??[facility] [id number] Patient Type: ??[facility] Inpatient Taken: ??07/10/2019 Received: ??07/10/2019 Accessioned: ??07/10/2019 Reported: ??07/20/2019 Physician(s): ??Michelle Tony, MPHS ?? FINAL INTERPRETATION SOURCE OF SPECIMEN: ? Liquid based pap test, ThinPrep STATEMENT OF ADEQUACY: ?- Satisfactory for evaluation ?- Endocervical cells/transformation zone sample present GENERAL CATEGORY: ?- Negative for squamous intraepithelial lesion or malignancy DESCRIPTION: ?- Reactive cellular changes Comments HPV Result: ??NEGATIVE for high risk types of Human Papilloma Virus (HPV) RNA This probe detects the presence of HPV types: 16, 18, 31, 33, 35, 39, 45, 51, 52, 56, 58, 59, 66 and 68. ??This HPV test was performed at [facility] in [place], [place] utilizing the Gen-Probe Aptima assay. sxxf/07/20/2019 10:48 By this signature, I attest that the above diagnosis is based upon my personal examination of the slides(and/or other material indicated in the diagnosis). ? Marie Sol M.D. Report Electronically Reviewed and Signed Out By Marie Sol M.D. 07/20/2019 13:52:27 BRITTNEY Cisneros(ASCP) Cervicovaginal Cytology (Pap Test) Disclaimer: The Pap test is a screening test used to detect cervical cancer and its precursors; it is not a diagnostic procedure. False negative and false positive results do occur. Pap test results should be interpreted in the context of pertinent clinical information and biopsy results as indicated. Gross Description A. ??Liquid based pap test, ThinPrep: ??Cervical/vaginal - Screening ThinPrep with HPV ?? Clinical Diagnosis and History Last Menstrual Period: currently on period Menstrual History: Irregular Cycles Other Clinical Conditions: Abnormal Bleeding The patient is a 39-year old woman with a history of dysplasia status post laser, who now presents with abnormal uterine bleeding. The HPV test was performed by [facility], [address] [place], [place] [id number]. Report Images and scanned documents, if included only viewable in PDF version The performance characteristics of some immunohistochemical stains, in-situ hybridization and fluorescence in-situ hybridization tests and immunophenotyping by flow cytometry cited in this report (if any) were determined by the Surgical Pathology Department at [facility] as part of an ongoing quality control microbiology supervisor program and in compliance with federally mandated regulations drawn from the Clinical Laboratory Improvement Act of 1988 (CLIA '88). ??Some of these tests rely on the use of analyte specific reagents and are subject to specific labeling requirements by the US Food and Drug Administration. ??Such diagnostic tests may only be performed in a facility that is certified by the Department of Health and Human Services as a high complexity laboratory under CLIA '88. ??The FDA has determined that such clearance or approval is not necessary. ??This test is used for clinical purposes. ??It should not be regarded as investigational or for research. ??Nevertheless, federal rules concerning the medical use of analyte specific reagents require that the following disclaimer be attached to the report: This test was developed and its performance characteristics determined by the Surgical Pathology Department of [facility]. ??It has not been cleared or approved by the U. S. Food and Drug Administration. Brayan Richter MD LAB CYTOLOGY ORDERA BLES Final Result [facility] 3rd Floor [place], [place] [phone] * US Pelvis Complete (07/10/2019 12:45 PM BOTTLE BLOWING MACHINE TENDER) Cul de Sac No free fluid visualized VIEWPOINT Endometrial Thickness 5.4 mm&millim eters VIEWPOINT Anatomical Region Laterality Modality Pelvis N/A Ultrasound 07/10/2019 2:46 PM BOTTLE BLOWING MACHINE TENDER Brayan Richter MD IMG US PROCEDURES F inal Result * (ABNORMAL) POCT glucose (07/10/2019 11:36 AM BOTTLE BLOWING MACHINE TENDER) Pathologist [facility] [place] Glucose, POC 204(H) 70 - 199 mg/dL [facility] Glucose comment 1 RN Notified [facility] Blood specimen (specimen) 07/10/2019 11:36 AM BOTTLE BLOWING MACHINE TENDER 07/10/2019 11:36 AM BOTTLE BLOWING MACHINE TENDER us Brayan Richter MD LAB POCT ORDERABLES - DEVICE Final Result Performing Organization Address [facility]/ZIP Co de Phone Number [facility] Department [place] [address] * (ABNORMAL) POCT glucose (07/10/2019 8:20 AM BOTTLE BLOWING MACHINE TENDER) Glucose, POC 299(H) 70 - 199 mg/dL [facility] Glucose comment 1 RN Notified [facility] Blood specimen (specimen) 07/10/2019 8:20 AM BOTTLE BLOWING MACHINE TENDER 07/10/2019 8:20 AM BOTTLE BLOWING MACHINE TENDER Brayan Richter MD LAB POCT ORDERABLES - DEVICE Final Result [facility] Department [place] [address] * (ABNORMAL) Differential, auto (07/10/2019 5:53 AM BOTTLE BLOWING MACHINE TENDER) Pathologist [facility] [place] Neutrophil abs 1.3(L) 1.7 - 6.5 K/cumm [facility] Imm gran abs 0.0 0.0 - 0.1 K/cumm [facility] Lymphocyte abs 1.6 0.8 - 3.3 K/cumm [facility] Monocyte abs 0.3 0.2 - 0.8 K/cumm [facility] Eosinophil abs 0.1 0.0 - 0.5 K/cumm [facility] Basophil abs 0.0 0.0 - 0.1 K/cumm [facility] Neutrophil pct 39.8 % [facility] Comment: Interpretive Data Percent cell count reference ranges are not reported, since discordance with absolute values may lead to misinterpretation of CBC data. Current Interpretive Data was last revised on 2017. Imm gran pct 0.3 % [facility] Comment: Interpretive Data Percent cell count reference ranges are not reported, since discordance with absolute values may lead to misinterpretation of CBC data. Current Interpretive Data was last revised on 2017. Lymphocyte pct 48.2 % [facility] Comment: Interpretive Data Percent cell count reference ranges are not reported, since discordance with absolute values may lead to misinterpretation of CBC data. Current Interpretive Data was last revised on 2017. Monocyte pct 9.0 % [facility] Comment: Interpretive Data Percent cell count reference ranges are not reported, since discordance with absolute values may lead to misinterpretation of CBC data. Current Interpretive Data was last revised on 2017. Eosinophil pct 2.4 % [facility] Comment: Interpretive Data Percent cell count reference ranges are not reported, since discordance with absolute values may lead to misinterpretation of CBC data. Current Interpretive Data was last revised on 2017. Basophil pct 0.3 % [facility] Comment: Interpretive Data Percent cell count reference ranges are not reported, since discordance with absolute values may lead to misinterpretation of CBC data. Current Interpretive Data was last revised on 2017. Blood specimen (specimen) 07/10/2019 5:53 AM BOTTLE BLOWING MACHINE TENDER 07/10/2019 6:18 AM BOTTLE BLOWING MACHINE TENDER us Brayan Richter MD LAB BLOOD ORDERABLE S Final Result [facility] Department [place] [address] * (ABNORMAL) Basic metabolic panel (07/10/2019 5:53 AM BOTTLE BLOWING MACHINE TENDER) Sodium 139 135 - 145 mmol/L [facility] Potassium, pl 4.1 3.3 - 4.9 mmol/L [facility] Chloride 105 97 - 110 mmol/L [facility] CO2 26 22 - 32 mmol/L [facility] Anion gap 8 2 - 15 mmol/L [facility] BUN 8 8 - 25 mg/dL [facility] Creatinine 0.42(L) 0.60 - 1.10 mg/dL [facility] Glucose 221(H) 70 - 199 mg/dL [facility] Comment: Interpretive Data Fasting glucose >/= 126 [...] interpretive data was last revised 2017. Calcium 8.8 8.5 - 10.3 mg/dL [facility] Blood specimen (specimen) 07/10/2019 5:53 AM BOTTLE BLOWING MACHINE TENDER 07/10/2019 6:17 AM BOTTLE BLOWING MACHINE TENDER Brayan Richter MD LAB BLOOD ORDERABLE S Final Result Performing Organization Address [facility]/ZIP Co de Phone Number [facility] Department [place] [address] * (ABNORMAL) CBC with auto differential (07/10/2019 5:53 AM BOTTLE BLOWING MACHINE TENDER) Pathologist [facility] [place] WBC 3.3(L) 3.8 - 9.9 K/cumm [facility] Hgb 10.7(L) 11.9 - 15.5 g/dL [facility] Hct 32.5(L) 35.6 - 45.5 % [facility] Plt 129(L) 150 - 400 K/cumm [facility] MPV 10.5 9.1 - 12.3 fL [facility] RBC 3.69(L) 3.90 - 5.20 M/cumm [facility] MCV 88.1 81.3 - 96.4 fL [facility] MCH 29.0 27.1 - 33.3 pg [facility] MCHC 32.9 32.3 - 35.7 g/dL [facility] RDW CV 14.3 11.1 - 14.9 % [facility] RDW SD 45.4 35.7 - 48.1 fL [facility] NRBC abs 0.00 0.00 - 0.01 K/cumm [facility] Blood specimen (specimen) 07/10/2019 5:53 AM BOTTLE BLOWING MACHINE TENDER 07/10/2019 6:18 AM BOTTLE BLOWING MACHINE TENDER us Brayan Richter MD LAB BLOOD ORDERABLE S Final Result Performing Organization Address City/[facility]/ZIP Co de Phone Number [facility] Department [place] [address] * POCT glucose (07/09/2019 9:20 PM BOTTLE BLOWING MACHINE TENDER) Glucose, POC 192 70 - 199 mg/dL [facility] Blood specimen (specimen) 07/09/2019 9:20 PM BOTTLE BLOWING MACHINE TENDER 07/09/2019 9:20 PM BOTTLE BLOWING MACHINE TENDER Brayan Richter MD LAB POCT ORDERABLES - DEVICE Final Result Performing Organization Address City/[facility]/[place] [address] * MRSA Only (Staphylococcus aureus) Culture Nasal (07/09/2019 6:20 PM BOTTLE BLOWING MACHINE TENDER) Report Final Report: Negative [facility] Nasal 07/09/2019 6:20 PM BOTTLE BLOWING MACHINE TENDER 07/09/2019 7:26 PM BOTTLE BLOWING MACHINE TENDER Narrative [facility] - 07/10/2019 8:34 PM BOTTLE BLOWING MACHINE TENDER Testing performed by [facility] ([phone]). us Felix Velásquez MD LAB MICROBIOLOGY - GENER AL ORDERABLES Final Result Performing Organization Address City/[facility]/[place] [address] * POCT glucose (07/09/2019 5:23 PM BOTTLE BLOWING MACHINE TENDER) Glucose, POC 139 70 - 199 mg/dL [facility] Blood specimen (specimen) 07/09/2019 5:23 PM BOTTLE BLOWING MACHINE TENDER 07/09/2019 5:23 PM BOTTLE BLOWING MACHINE TENDER Brayan Richter MD LAB POCT ORDERABLES - DEVICE Final Result Performing Organization Address City/[facility]/ZIP Co de Phone Number [facility] [place] [address] * POCT glucose (07/09/2019 12:11 PM BOTTLE BLOWING MACHINE TENDER) Glucose, POC 117 70 - 199 mg/dL [facility] Blood specimen (specimen) 07/09/2019 12:11 PM BOTTLE BLOWING MACHINE TENDER 07/09/2019 12:11 PM BOTTLE BLOWING MACHINE TENDER Brayan Richter MD LAB POCT ORDERABLES - DEVICE Final Result Performing Organization Address [facility] Co de Phone Number [facility] Department [place] [address] * (ABNORMAL) POCT glucose (07/09/2019 8:04 AM BOTTLE BLOWING MACHINE TENDER) Glucose, POC 213(H) 70 - 199 mg/dL [facility] Blood specimen (specimen) 07/09/2019 8:04 AM BOTTLE BLOWING MACHINE TENDER 07/09/2019 8:04 AM BOTTLE BLOWING MACHINE TENDER Brayan Richter MD LAB POCT ORDERABLES - DEVICE Final Result Performing Organization Address [facility] de Phone Number [facility] Department [place] [address] * hCG, blood, quantitative (07/09/2019 5:24 AM BOTTLE BLOWING MACHINE TENDER) Pathologist [facility] [place] hCG, quant <5.0 0.0 - 5.0 IUnits/L [facility] Comment: Interpretive Data Male: <5.0 IUnits/L Non- Female: <5.0 IUnits/L Weeks Post LMP ?Reference Interval ?1-10 ?202-231,000 IUnits/L ?? 11-15 ? 22,536-234,[id number] IUnits/L ?? 16-22 ?8,007- 50,064 IUnits/L ?? 23-40 ?1,600- 49,413 IUnits/L All results should be interpreted in context of clinical presentations as rare causes of falsely positive and falsely negative results are known to exist. Current interpretive data last revised on 2018. Blood specimen (specimen) 07/09/2019 5:24 AM BOTTLE BLOWING MACHINE TENDER 07/09/2019 5:40 AM BOTTLE BLOWING MACHINE TENDER Brayan Richter MD LAB BLOOD ORDERABLE S Final Result [facility] Department [place] [address] * Differential, auto (07/09/2019 5:24 AM BOTTLE BLOWING MACHINE TENDER) Neutrophil abs 2.4 1.7 - 6.5 K/cumm [facility] Imm gran abs 0.0 0.0 - 0.1 K/cumm [facility] Lymphocyte abs 1.5 0.8 - 3.3 K/cumm [facility] Monocyte abs 0.4 0.2 - 0.8 K/cumm [facility] Eosinophil abs 0.1 0.0 - 0.5 K/cumm [facility] Basophil abs 0.0 0.0 - 0.1 K/cumm [facility] Neutrophil pct 53.3 % [facility] Comment: Interpretive Data Percent cell count reference ranges are not reported, since discordance with absolute values may lead to misinterpretation of CBC data. Current Interpretive Data was last revised on 2017. Imm gran pct 0.4 % [facility] Comment: Interpretive Data Percent cell count reference ranges are not reported, since discordance with absolute values may lead to misinterpretation of CBC data. Current Interpretive Data was last revised on 2017. Lymphocyte pct 33.7 % [facility] Comment: Interpretive Data Percent cell count reference ranges are not reported, since discordance with absolute values may lead to misinterpretation of CBC data. Current Interpretive Data was last revised on 2017. Monocyte pct 9.7 % [facility] Comment: Interpretive Data Percent cell count reference ranges are not reported, since discordance with absolute values may lead to misinterpretation of CBC data. Current Interpretive Data was last revised on 2017. Eosinophil pct 2.7 % [facility] Comment: Interpretive Data Percent cell count reference ranges are not reported, since discordance with absolute values may lead to misinterpretation of CBC data. Current Interpretive Data was last revised on 2017. Basophil pct 0.2 % [facility] Comment: Interpretive Data Percent cell count reference ranges are not reported, since discordance with absolute values may lead to misinterpretation of CBC data. Current Interpretive Data was last revised on 2017. Blood specimen (specimen) 07/09/2019 5:24 AM BOTTLE BLOWING MACHINE TENDER 07/09/2019 5:40 AM BOTTLE BLOWING MACHINE TENDER us Brayan Richter MD LAB BLOOD ORDERABLE S Final Result [facility] Department [place] [address] * (ABNORMAL) Basic metabolic panel (07/09/2019 5:24 AM BOTTLE BLOWING MACHINE TENDER) Sodium 137 135 - 145 mmol/L [facility] Potassium, pl 3.6 3.3 - 4.9 mmol/L [facility] Chloride 102 97 - 110 mmol/L [facility] CO2 27 22 - 32 mmol/L [facility] Anion gap 8 2 - 15 mmol/L [facility] BUN 8 8 - 25 mg/dL [facility] Creatinine 0.38(L) 0.60 - 1.10 mg/dL [facility] Glucose 238(H) 70 - 199 mg/dL [facility] Comment: Interpretive Data Fasting glucose >/= 126 [...] interpretive data was last revised 2017. Calcium 8.5 8.5 - 10.3 mg/dL [facility] Blood specimen (specimen) 07/09/2019 5:24 AM BOTTLE BLOWING MACHINE TENDER 07/09/2019 5:40 AM BOTTLE BLOWING MACHINE TENDER Brayan Richter MD LAB BLOOD ORDERABLE S Final Result Performing Organization Address City/[facility]/ZIP Co de Phone Number [facility] Department [place] [address] * (ABNORMAL) CBC with auto differential (07/09/2019 5:24 AM BOTTLE BLOWING MACHINE TENDER) [facility] WBC 4.4 3.8 - 9.9 K/cumm [facility] Hgb 9.8(L) 11.9 - 15.5 g/dL [facility] Hct 30.1(L) 35.6 - 45.5 % [facility] Plt 132(L) 150 - 400 K/cumm [facility] MPV 10.6 9.1 - 12.3 fL [facility] RBC 3.48(L) 3.90 - 5.20 M/cumm [facility] MCV 86.5 81.3 - 96.4 fL [facility] MCH 28.2 27.1 - 33.3 pg [facility] MCHC 32.6 32.3 - 35.7 g/dL [facility] RDW CV 14.3 11.1 - 14.9 % [facility] RDW SD 44.4 35.7 - 48.1 fL [facility] NRBC abs 0.00 0.00 - 0.01 K/cumm [facility] Blood specimen (specimen) 07/09/2019 5:24 AM BOTTLE BLOWING MACHINE TENDER 07/09/2019 5:40 AM BOTTLE BLOWING MACHINE TENDER us Brayan Richter MD LAB BLOOD ORDERABLE S Final Result [facility] [place] [address] * (ABNORMAL) POCT glucose (07/08/2019 8:05 PM BOTTLE BLOWING MACHINE TENDER) Glucose, POC 231(H) 70 - 199 mg/dL [facility] Blood specimen (specimen) 07/08/2019 8:05 PM BOTTLE BLOWING MACHINE TENDER 07/08/2019 8:05 PM BOTTLE BLOWING MACHINE TENDER Brayan Richter MD LAB POCT ORDERABLES - DEVICE Final Result Performing Organization Address City/[facility] Co de Phone Number [facility] [place] [address] * (ABNORMAL) POCT glucose (07/08/2019 5:59 PM BOTTLE BLOWING MACHINE TENDER) [facility] Glucose, POC 381(H) 70 - 199 mg/dL [facility] Blood specimen (specimen) 07/08/2019 5:59 PM BOTTLE BLOWING MACHINE TENDER 07/08/2019 5:59 PM BOTTLE BLOWING MACHINE TENDER Brayan Richter MD LAB POCT ORDERABLES - DEVICE Final Result Performing Organization Address [facility] Co de Phone Number [facility] [place] [address] * (ABNORMAL) POCT glucose (07/08/2019 4:17 PM BOTTLE BLOWING MACHINE TENDER) [facility] Glucose, POC 431(H) 70 - 199 mg/dL [facility] Blood specimen (specimen) 07/08/2019 4:17 PM BOTTLE BLOWING MACHINE TENDER 07/08/2019 4:17 PM BOTTLE BLOWING MACHINE TENDER Brayan Richter MD LAB POCT ORDERABLES - DEVICE Final Result Performing Organization Address City/[facility] Co de Phone Number [facility] [place] [address] * TSH reflex to free T4 (07/08/2019 3:38 PM BOTTLE BLOWING MACHINE TENDER) [facility] TSH 2.23 0.30 - 4.20 mcIUnit/mL [facility] Blood specimen (specimen) 07/08/2019 3:38 PM BOTTLE BLOWING MACHINE TENDER 07/08/2019 4:02 PM BOTTLE BLOWING MACHINE TENDER us Brayan Richter MD LAB BLOOD ORDERABLE S Final Result Performing Organization Address [facility] Co de Phone Number [facility] [place] [address] * POCT glucose (07/08/2019 1:07 PM BOTTLE BLOWING MACHINE TENDER) Glucose, POC 151 70 - 199 mg/dL [facility] Blood specimen (specimen) 07/08/2019 1:07 PM BOTTLE BLOWING MACHINE TENDER 07/08/2019 1:07 PM BOTTLE BLOWING MACHINE TENDER Brayan Richter MD LAB POCT ORDERABLES - DEVICE Final Result Performing Organization Address [facility] de Phone Number [facility] [place] [address] * (ABNORMAL) Urinalysis, microscopic only (07/08/2019 11:21 AM BOTTLE BLOWING MACHINE TENDER) Pathologist [facility] [place] WBC, ur 21-50(A) 0 - 5 /HPF [facility] RBC, ur >50(A) 0 - 2 /HPF [facility] Epithelial cells, squamous, ur 1-5 0 - 5 /HPF [facility] Bacteria, ur 1+(A) [facility] Urine 07/08/2019 11:2 1 AM BOTTLE BLOWING MACHINE TENDER 07/08/2019 12:37 PM BOTTLE BLOWING MACHINE TENDER us Brayan Richter MD LAB URINE ORDERABLE S Final Result Performing Organization Address [facility] Co de Phone Number [facility] [place] [address] * (ABNORMAL) Urinalysis reflex to microscopic (07/08/2019 11:21 AM BOTTLE BLOWING MACHINE TENDER) Color, ur Red(A) Yellow [facility] Clarity, ur Cloudy(A) Clear [facility] Specific gravity, ur 1.029(H) 1.010 - 1.025 [facility] pH, urine 6 [facility] Protein, ur ql 2+(A) Negative [facility] Glucose, ur ql 3+(A) Negative [facility] Ketones, ur 1+(A) Negative [facility] Bilirubin, ur Negative Negative [facility] Blood, ur 3+(A) Negative [facility] Urobilinogen, ur <2.0 <2.0 mg/dL [facility] Nitrite, ur Negative Negative [facility] Leukocyte esterase, ur Negative Negative [facility] UA reflex comment Reflex to microscopic UA will be performed. [facility] Urine 07/08/2019 11:2 1 AM BOTTLE BLOWING MACHINE TENDER 07/08/2019 12:37 PM BOTTLE BLOWING MACHINE TENDER Narrative [facility] - 07/08/2019 1:01 PM BOTTLE BLOWING MACHINE TENDER ?? Urine pH is affected by diet, medications, systemic acid-base disturbances, and renal tubular function. ??pH may affect urinary stone formation. ??For example, urine pH below 6.0 may help reduce the tendency for calcium phosphate stones and pH greater than 6.0 may reduce the tendency for uric acid stone formation. Source: [employer]. Last revised 06-24-2017 us Brayan Richter MD LAB URINE ORDERABLE S Final Result Performing Organization Address City/[facility] Co de Phone Number [facility] Department [place] [address] * POCT glucose (07/08/2019 8:39 AM BOTTLE BLOWING MACHINE TENDER) Glucose, POC 171 70 - 199 mg/dL [facility] Blood specimen (specimen) 07/08/2019 8:39 AM BOTTLE BLOWING MACHINE TENDER 07/08/2019 8:39 AM BOTTLE BLOWING MACHINE TENDER us Brayan Richter MD LAB POCT ORDERABLES - DEVICE Final Result Performing Organization Address City/State/[facility] Co de Phone Number [facility] [place] [address] * IA-2 ANTIBODY (07/08/2019 6:11 AM BOTTLE BLOWING MACHINE TENDER) [facility] IA-2 Ab 0.00 <=0.02 nmol/L [facility] Comment: ADDITIONAL INFORMATION This test was developed and its performance characteristics determined by [facility] in a manner consistent with CLIA requirements. This test has not been cleared or approved by the U.S. Food and Drug Administration. Test Performed by: [address] [address] [employer] Associate: Felix Palumbo M.D. Ph.D.; CLIA# [id number] Blood specimen (specimen) 07/08/2019 6:11 AM BOTTLE BLOWING MACHINE TENDER 07/08/2019 7:15 AM BOTTLE BLOWING MACHINE TENDER Brayan Richter MD LAB BLOOD ORDERABLE S Final Result Performing Organization Address [facility] [place] [address] * POCT glucose (07/08/2019 3:47 AM BOTTLE BLOWING MACHINE TENDER) [facility] Glucose, POC 165 70 - 199 mg/dL [facility] Blood specimen (specimen) 07/08/2019 3:47 AM BOTTLE BLOWING MACHINE TENDER 07/08/2019 3:47 AM BOTTLE BLOWING MACHINE TENDER Brayan Richter MD LAB POCT ORDERABLES - DEVICE Final Result Performing Organization Address [facility] de Phone Number [facility] [place] [address] * Differential, auto (07/08/2019 12:25 AM BOTTLE BLOWING MACHINE TENDER) Neutrophil abs 2.9 1.7 - 6.5 K/cumm [facility] Imm gran abs 0.0 0.0 - 0.1 K/cumm [facility] Lymphocyte abs 2.1 0.8 - 3.3 K/cumm [facility] Monocyte abs 0.5 0.2 - 0.8 K/cumm [facility] Eosinophil abs 0.2 0.0 - 0.5 K/cumm [facility] Basophil abs 0.0 0.0 - 0.1 K/cumm [facility] Neutrophil pct 50.8 % [facility] Comment: Interpretive Data Percent cell count reference ranges are not reported, since discordance with absolute values may lead to misinterpretation of CBC data. Current Interpretive Data was last revised on 2017. Imm gran pct 0.4 % [facility] Comment: Interpretive Data Percent cell count reference ranges are not reported, since discordance with absolute values may lead to misinterpretation of CBC data. Current Interpretive Data was last revised on 2017. Lymphocyte pct 36.7 % [facility] Comment: Interpretive Data Percent cell count reference ranges are not reported, since discordance with absolute values may lead to misinterpretation of CBC data. Current Interpretive Data was last revised on 2017. Monocyte pct 9.0 % [facility] Comment: Interpretive Data Percent cell count reference ranges are not reported, since discordance with absolute values may lead to misinterpretation of CBC data. Current Interpretive Data was last revised on 2017. Eosinophil pct 2.7 % [facility] Comment: Interpretive Data Percent cell count reference ranges are not reported, since discordance with absolute values may lead to misinterpretation of CBC data. Current Interpretive Data was last revised on 2017. Basophil pct 0.4 % [facility] Comment: Interpretive Data Percent cell count reference ranges are not reported, since discordance with absolute values may lead to misinterpretation of CBC data. Current Interpretive Data was last revised on 2017. Blood specimen (specimen) 07/08/2019 12:25 AM BOTTLE BLOWING MACHINE TENDER 07/08/2019 12:50 AM BOTTLE BLOWING MACHINE TENDER us Brayan Richter MD LAB BLOOD ORDERABLE S Final Result [facility] [place] [address] * Magnesium (07/08/2019 12:25 AM BOTTLE BLOWING MACHINE TENDER) [facility] Magnesium 1.5 1.4 - 2.5 mg/dL [facility] Blood specimen (specimen) 07/08/2019 12:25 AM BOTTLE BLOWING MACHINE TENDER 07/08/2019 12:50 AM BOTTLE BLOWING MACHINE TENDER Brayan Richter MD LAB BLOOD ORDERABLE S Final Result Performing Organization Address City/[facility] Co de Phone Number [facility] [place] [address] * (ABNORMAL) CBC with auto differential (07/08/2019 12:25 AM BOTTLE BLOWING MACHINE TENDER) [facility] WBC 5.6 3.8 - 9.9 K/cumm [facility] Hgb 11.0(L) 11.9 - 15.5 g/dL [facility] Hct 32.1(L) 35.6 - 45.5 % [facility] Plt 142(L) 150 - 400 K/cumm [facility] MPV 10.4 9.1 - 12.3 fL [facility] RBC 3.74(L) 3.90 - 5.20 M/cumm [facility] MCV 85.8 81.3 - 96.4 fL [facility] MCH 29.4 27.1 - 33.3 pg [facility] MCHC 34.3 32.3 - 35.7 g/dL [facility] RDW CV 14.1 11.1 - 14.9 % [facility] RDW SD 43.4 35.7 - 48.1 fL [facility] NRBC abs 0.00 0.00 - 0.01 K/cumm [facility] Blood specimen (specimen) 07/08/2019 12:25 AM BOTTLE BLOWING MACHINE TENDER 07/08/2019 12:50 AM BOTTLE BLOWING MACHINE TENDER Brayan Richter MD LAB BLOOD ORDERABLE S Final Result [facility] Department [place] [address] * (ABNORMAL) Basic metabolic panel (07/08/2019 12:25 AM BOTTLE BLOWING MACHINE TENDER) Sodium 137 135 - 145 mmol/L [facility] Potassium, pl 3.4 3.3 - 4.9 mmol/L [facility] Chloride 104 97 - 110 mmol/L [facility] CO2 26 22 - 32 mmol/L [facility] Anion gap 7 2 - 15 mmol/L [facility] BUN 9 8 - 25 mg/dL [facility] Creatinine 0.41(L) 0.60 - 1.10 mg/dL [facility] Glucose 185 70 - 199 mg/dL [facility] Comment: Interpretive Data Fasting glucose >/= 126 [...] interpretive data was last revised 2017. Calcium 8.9 8.5 - 10.3 mg/dL [facility] Blood specimen (specimen) 07/08/2019 12:25 AM BOTTLE BLOWING MACHINE TENDER 07/08/2019 12:50 AM BOTTLE BLOWING MACHINE TENDER Brayan Richter MD LAB BLOOD ORDERABLE S Final Result [facility] Department [place] [address] * POCT glucose (07/08/2019 12:21 AM BOTTLE BLOWING MACHINE TENDER) Glucose, POC 181 70 - 199 mg/dL [facility] Blood specimen (specimen) 07/08/2019 12:21 AM BOTTLE BLOWING MACHINE TENDER 07/08/2019 12:21 AM BOTTLE BLOWING MACHINE TENDER us Brayan Richter MD LAB POCT ORDERABLES - DEVICE Final Result Performing Organization Address [facility] de Phone Number [facility] [place] [address] * (ABNORMAL) C-peptide (07/07/2019 9:24 PM BOTTLE BLOWING MACHINE TENDER) Pathologist [facility] [place] C-peptide 0.3(L) 1.1 - 4.4 ng/mL [facility] Blood specimen (specimen) 07/07/2019 9:24 PM BOTTLE BLOWING MACHINE TENDER 07/07/2019 9:47 PM BOTTLE BLOWING MACHINE TENDER us Brayan Richter MD LAB BLOOD ORDERABLE S Final Result Performing Organization Address [facility] de Phone Number [facility] [place] [address] * Insulin antibody (07/07/2019 9:24 PM BOTTLE BLOWING MACHINE TENDER) [facility] Insulin ab 0.00 0.00 - 0.02 nmol/L [facility] Comment: ADDITIONAL INFORMATION This test was developed and its performance characteristics determined by [facility] in a manner consistent with CLIA requirements. This test has not been cleared or approved by the U.S. Food and Drug Administration. Test Performed by: [facility] - [address] [address] [employer] Associate: Felix Palumbo M.D. Ph.D.; CLIA# [id number] Blood specimen (specimen) 07/07/2019 9:24 PM BOTTLE BLOWING MACHINE TENDER 07/07/2019 9:50 PM BOTTLE BLOWING MACHINE TENDER Brayan Richter MD LAB BLOOD ORDERABLE S Final Result Performing Organization Address [facility] Co de Phone Number [facility] [place] [address] * Glutamic acid decarboxylase (07/07/2019 9:24 PM BOTTLE BLOWING MACHINE TENDER) GAD65 ab ser 0.00 <=0.02 nmol/L [facility] Comment: ADDITIONAL INFORMATION This test was developed and its performance characteristics determined by [facility] in a manner consistent with CLIA requirements. This test has not been cleared or approved by the U.S. Food and Drug Administration. Test Performed by: [facility] [place] [address] [employer] Associate: Felix Palumbo M.D. Ph.D.; CLIA# [id number] Blood specimen (specimen) 07/07/2019 9:24 PM BOTTLE BLOWING MACHINE TENDER 07/07/2019 9:42 PM BOTTLE BLOWING MACHINE TENDER Brayan Richter MD LAB BLOOD ORDERABLE S Final Result Performing Organization Address [facility] de Phone Number [facility] [address] * Ethanol (07/07/2019 9:24 PM BOTTLE BLOWING MACHINE TENDER) Ethanol <10 <=10 mg/dL [facility] Comment: Interpretive Data Legal limit of intoxication > or = 80 mg/dL Levels > or = 400 mg/dL are potentially TOXIC. Current interpretive data was last revised on 2018. Blood specimen (specimen) 07/07/2019 9:24 PM BOTTLE BLOWING MACHINE TENDER 07/07/2019 9:47 PM BOTTLE BLOWING MACHINE TENDER Brayan Richter MD LAB BLOOD ORDERABLE S Final Result Performing Organization Address City/[facility] [place] [address] * (ABNORMAL) POCT glucose (07/07/2019 9:08 PM BOTTLE BLOWING MACHINE TENDER) Glucose, POC 218(H) 70 - 199 mg/dL [facility] Blood specimen (specimen) 07/07/2019 9:08 PM BOTTLE BLOWING MACHINE TENDER 07/07/2019 9:08 PM BOTTLE BLOWING MACHINE TENDER Brayan Richter MD LAB POCT ORDERABLES - DEVICE Final Result Performing Organization Address [facility] [place] [address] * (ABNORMAL) POCT glucose (07/07/2019 7:13 PM BOTTLE BLOWING MACHINE TENDER) Glucose, POC 213(H) 70 - 199 mg/dL [facility] Blood specimen (specimen) 07/07/2019 7:13 PM BOTTLE BLOWING MACHINE TENDER 07/07/2019 7:13 PM BOTTLE BLOWING MACHINE TENDER Brayan Richter MD LAB POCT ORDERABLES - DEVICE Final Result Performing Organization Address [facility] [place] [address] * CT Body Outside Consult (07/07/2019 7:07 PM BOTTLE BLOWING MACHINE TENDER) Anatomical Region Laterality Modality Body N/A Computed Tomogra phy 07/08/2019 7:48 AM BOTTLE BLOWING MACHINE TENDER Impressions 07/08/2019 7:48 AM BOTTLE BLOWING MACHINE TENDER 1. ??Findings of chronic pancreatitis, with residual small loculated fluid collections adjacent to the pancreatic head and tail, overall reduced significantly in size comparing with the necrotic peripancreatic fluid collection evident on 03/16/2019 and consistent with small areas of persistent walled off necrosis. ??There is persistent peripancreatic stranding and left upper quadrant omental stranding, some of which is worse from 03/16/2019 and which may represent recurrence of pancreatitis. 2. Chronic splenic vein thrombosis with multiple perisplenic and perigastric venous collaterals. ??While this examination was not optimized for detection of arterial complications of pancreatitis, there is a new indistinct and narrowed appearance of the proximal common hepatic and gastroduodenal arteries comparing with 03/16/2019 . ??Consider an angiographic ??or pancreas protocol CT of the abdomen if there is clinical concern for arterial complications of necrotizing pancreatitis, such as pseudoaneurysm or arterial thrombosis. 3. ??Interval improved appearance of hepatic parenchymal hypoenhancement and hepatomegaly from the prior exam. The findings, conclusions and recommendations within this report do not replace the initial findings, conclusions ??and recommendations made at the facility where the study was performed based upon the imaging and clinical condition at that time. ??Comparison with the prior report and clinical history is necessary. ??The provided images may or may not represent the [place] source data set and thus may contain changes that may lower the accuracy of this second-opinion interpretation. Electronically signed by: Gregory Alvarez M.D. Narrative 07/08/2019 7:48 AM BOTTLE BLOWING MACHINE TENDER EXAMINATION: RADIOLOGY CONSULTATION ON OUTSIDE IMAGING STUDY STUDY INITIALLY PERFORMED: 07/07/2019 at [facility]. TYPE OF STUDY: Multiple CT images of the abdomen and pelvis with intravenous contrast are provided at the time of this interpretation. CONTRAST ROUTE: Intravenous The protocol was adequate to address the clinical question. The outside final report was not available at the time of this second opinion interpretation. TYPE OF CONSULTATION: Consult on outside imaging study with images submitted through [facility] DATE OF CONSULTATION: 07/08/2019 7:22 AM HISTORY: Abdominal pain, reported necrotizing pancreatitis with a fluid collection drained at an outside facility COMPARISON: 03/16/2019 FINDINGS: There is coarse calcification scattered throughout the pancreatic parenchyma, and the main pancreatic duct is mildly dilated. A multiloculated lobular fluid collection is noted anterosuperior to the pancreatic head along the medial surface of the proximal duodenum (image 47 series 3, with the total maximum axial dimension of approximately 3 cm). ??An additional site of discrete fluid density is noted adjacent to the pancreatic tail/at the lesser curvature of the stomach (image 49 of series 3) and measures approximately 1.7 cm in diameter. ??There is more generalized peripancreatic fat stranding, as well as omental fat stranding greatest in the left hemiabdomen (image 62 of series 3). The portal and superior mesenteric veins are patent. ??The splenic vein is likely chronically thrombosed, and there are numerous perisplenic and perigastric venous collaterals. The common hepatic and gastro-duodenal arteries are narrowed and indistinct at their origins (image 37 339 of series 3), both vessels remain patent distally. ??This examination was not optimized to look for small arterial abnormalities, but no definite pseudoaneurysms are identified. The liver enhances homogeneously. ??Its previous appearance, which was diffusely enlarged and markedly hypoattenuating/edematous, has resolved. ??There is no biliary duct dilation. ??The gallbladder contains a tiny stone and is nondistended. Spleen normal in size. The adrenal glands and kidneys are unremarkable. Bilateral 2.5-3 cm adnexal cysts are noted. ??The uterus is unremarkable. ??The colon and small bowel are normal in caliber. ??The splenic flexure of the colon is mildly thickened adjacent to the site of most severe omental/peritoneal inflammation. No abdominal or pelvic lymphadenopathy is identified. ??There is trace free fluid in the pelvis. Bone windows are unremarkable. Procedure Note Gregory Alvarez MD - 07/08/2019 EXAMINATION: RADIOLOGY CONSULTATION ON OUTSIDE IMAGING STUDY STUDY INITIALLY PERFORMED: 07/07/2019 at [facility]. TYPE OF STUDY: Multiple CT images of the abdomen and pelvis with intravenous contrast are provided at the time of this interpretation. CONTRAST ROUTE: Intravenous The protocol was adequate to address the clinical question. The outside final report was not available at the time of this second opinion interpretation. TYPE OF CONSULTATION: Consult on outside imaging study with images submitted through [facility] DATE OF CONSULTATION: 07/08/2019 7:22 AM HISTORY: Abdominal pain, reported necrotizing pancreatitis with a fluid collection drained at an outside facility COMPARISON: 03/16/2019 FINDINGS: There is coarse calcification scattered throughout the pancreatic parenchyma, and the main pancreatic duct is mildly dilated. A multiloculated lobular fluid collection is noted anterosuperior to the pancreatic head along the medial surface of the proximal duodenum (image 47 series 3, with the total maximum axial dimension of approximately 3 cm). An additional site of discrete fluid density is noted adjacent to the pancreatic tail/at the lesser curvature of the stomach (image 49 of series 3) and measures approximately 1.7 cm in diameter. There is more generalized peripancreatic fat stranding, as well as omental fat stranding greatest in the left hemiabdomen (image 62 of series 3). The portal and superior mesenteric veins are patent. The splenic vein is likely chronically thrombosed, and there are numerous perisplenic and perigastric venous collaterals. The common hepatic and gastro-duodenal arteries are narrowed and indistinct at their origins (image 37 339 of series 3), both vessels remain patent distally. This examination was not optimized to look for small arterial abnormalities, but no definite pseudoaneurysms are identified. The liver enhances homogeneously. Its previous appearance, which was diffusely enlarged and markedly hypoattenuating/edematous, has resolved. There is no biliary duct dilation. The gallbladder contains a tiny stone and is nondistended. Spleen normal in size. The adrenal glands and kidneys are unremarkable. Bilateral 2.5-3 cm adnexal cysts are noted. The uterus is unremarkable. The colon and small bowel are normal in caliber. The splenic flexure of the colon is mildly thickened adjacent to the site of most severe omental/peritoneal inflammation. No abdominal or pelvic lymphadenopathy is identified. There is trace free fluid in the pelvis. Bone windows are unremarkable. IMPRESSION: 1. Findings of chronic pancreatitis, with residual small loculated fluid collections adjacent to the pancreatic head and tail, overall reduced significantly in size comparing with the necrotic peripancreatic fluid collection evident on 03/16/2019 and consistent with small areas of persistent walled off necrosis. There is persistent peripancreatic stranding and left upper quadrant omental stranding, some of which is worse from 03/16/2019 and which may represent recurrence of pancreatitis. 2. Chronic splenic vein thrombosis with multiple perisplenic and perigastric venous collaterals. While this examination was not optimized for detection of arterial complications of pancreatitis, there is a new indistinct and narrowed appearance of the proximal common hepatic and gastroduodenal arteries comparing with 03/16/2019 . Consider an angiographic or pancreas protocol CT of the abdomen if there is clinical concern for arterial complications of necrotizing pancreatitis, such as pseudoaneurysm or arterial thrombosis. 3. Interval improved appearance of hepatic parenchymal hypoenhancement and hepatomegaly from the prior exam. The findings, conclusions and recommendations within this report do not replace the initial findings, conclusions and recommendations made at the facility where the study was performed based upon the imaging and clinical condition at that time. Comparison with the prior report and clinical history is necessary. The provided images may or may not represent the [place]ell source data set and thus may contain changes that may lower the accuracy of this second-opinion interpretation. Electronically signed by: Gregory Alvarez M.D. us Alaina Willett MD IMG CT PROCEDURES Final Res ult * XR Chest 1 View (07/07/2019 6:11 PM BOTTLE BLOWING MACHINE TENDER) Anatomical Region Laterality Modality Body, Chest N/A Computed Radiogr aphy 07/08/2019 11:4 3 AM BOTTLE BLOWING MACHINE TENDER Impressions 07/08/2019 12:25 PM BOTTLE BLOWING MACHINE TENDER Comparison is made with chest radiograph 03/16/2019. Lung volumes are small. ??There is no pneumonia, pulmonary edema, pleural effusion, pneumothorax. ??Heart size and mediastinal contour are normal. Dictated by: Ovidio Love M.D. The radiology attending physician has personally reviewed this study, and had reviewed and/or edited this written report and agrees with it. Electronically signed by: Miguel Doty M.D. Narrative 07/08/2019 12:25 PM BOTTLE BLOWING MACHINE TENDER EXAMINATION: 1 view chest radiograph Procedure Note Miguel Doty MD - 07/08/2019 EXAMINATION: 1 view chest radiograph IMPRESSION: Comparison is made with chest radiograph 03/16/2019. Lung volumes are small. There is no pneumonia, pulmonary edema, pleural effusion, pneumothorax. Heart size and mediastinal contour are normal. Dictated by: Ovidio Love M.D. The radiology attending physician has personally reviewed this study, and had reviewed and/or edited this written report and agrees with it. Electronically signed by: Miguel Doty M.D. Brayan Richter MD IMG XR PROCEDURES F inal Result * POCT glucose (07/07/2019 5:46 PM BOTTLE BLOWING MACHINE TENDER) Glucose, POC 145 70 - 199 mg/dL [facility] Blood specimen (specimen) 07/07/2019 5:46 PM BOTTLE BLOWING MACHINE TENDER 07/07/2019 5:46 PM BOTTLE BLOWING MACHINE TENDER Brayan Richter MD LAB POCT ORDERABLES - DEVICE Final Result Performing Organization Address [facility] de Phone Number [facility] Department [place] [address] * (ABNORMAL) Urinalysis, microscopic only (07/07/2019 5:22 PM BOTTLE BLOWING MACHINE TENDER) Pathologist [facility] [place] WBC, ur 0-5 0 - 5 /HPF [facility] RBC, ur 0-2 0 - 2 /HPF [facility] Epithelial cells, squamous, ur 1-5 0 - 5 /HPF [facility] Mucous, ur Present(A) [facility] Culture Reflex Comment Reflex conditions for urine culture (WBC >10) not met. [facility] Urine 07/07/2019 5:22 PM BOTTLE BLOWING MACHINE TENDER 07/07/2019 11:37 PM BOTTLE BLOWING MACHINE TENDER Brayan Richter MD LAB URINE ORDERABLE S Final Result Performing Organization Address [facility] de Phone Number [facility] Department [place] [address] * (ABNORMAL) Lipid panel (07/07/2019 5:22 PM BOTTLE BLOWING MACHINE TENDER) Cholesterol 196 30 - 199 mg/dL [facility] Comment: Interpretive Data Ages < or = 19 years ??Acceptable: ? <170 mg/dL ??Borderline high: ??170-199 mg/dL ??High: ? >or= 200 mg/dL Ages > or = 20 years ??Desirable: ?<200 mg/dL ??Borderline high: ??200-239 mg/dL ??High: ? >or= 240 mg/dL Literature References: 1. Expert Panel on Integrated Guidelines for Cardiovascular Health and Risk Reduction in Children and Adolescents. Pediatrics 2011;128:S213 2. NCEP Expert Panel. Circulation 2004;110:227 Current Interpretive Data was last revised on 2018. Triglycerides 209(H) <=149 mg/dL [facility] Comment: Interpretive Data Ages < or = 9 years ??Acceptable: ? <75 mg/dL ??Borderline high: ??75-99 mg/dL ??High: ? >or= 100 mg/dL Ages 10 to 20 years ??Acceptable: ? <90 mg/dL ??Borderline high: ??90-129 mg/dL ??High: ? >or= 130 mg/dL Ages > or = 20 years ??Desirable: ?<150 mg/dL ??Borderline high: ??150-199 mg/dL ??High: ? 200-499 mg/dL ?Very high: ?? >or= 499 mg/dL Literature References: 1. Expert Panel on Integrated Guidelines for Cardiovascular Health and Risk Reduction in Children and Adolescents. Pediatrics 2011;128:S213 2. NCEP Expert Panel. Circulation 2004;110:227 Current Interpretive Data was last revised on 2018. HDL 27(L) >=40 mg/dL [facility] Comment: Interpretive Data Ages < or = 19 years ??Acceptable: ? >45 mg/dL ??Borderline low: ?? 40-45 mg/dL ??Low: ? <40 mg/dL Ages > or = 20 years ??Desirable: ?>or= 60 mg/dL ??Low: ? <40 mg/dL Literature References: 1. Expert Panel on Integrated Guidelines for Cardiovascular Health and Risk Reduction in Children and Adolescents. Pediatrics 2011;128:S213 2. NCEP Expert Panel. Circulation 2004;110:227 Current Interpretive Data was last revised on 2018. LDL, calculated 127 <=129 mg/dL [facility] Comment: Interpretive Data Ages < or = 19 years ??Acceptable: ? <110 mg/dL ??Borderline high: ??110-129 mg/dL ??High: ?>or= 130 mg/dL Ages > or = 20 years ??Optimal: ? <100 mg/dL ??Near optimal: ?100-129 mg/dL ??Borderline high: ?? 130-159 mg/dL ??High: ?>160 mg/dL Literature References: 1. Expert Panel on Integrated Guidelines for Cardiovascular Health and Risk Reduction in Children and Adolescents. Pediatrics 2011;128:S213 2. NCEP Expert Panel. Circulation 2004;110:227 Current Interpretive Data was last revised on 2018. Non-HDL Cholesterol 169 mg/dL [facility] Comment: Interpretive Data Ages < or = 19 years ??Acceptable: ?<120 mg/dL ??Borderline high: ??120-144 mg/dL ??High: ?>145 mg/dL Ages > or = 20 years ??When triglycerides are >200 mg/dL, Non-HDL cholesterol is a secondary target of ? therapy with treatment goals that are 30 mg/dL greater than the LDL cholesterol target. ? Literature References: 1. Expert Panel on Integrated Guidelines for Cardiovascular Health and Risk Reduction in Children and Adolescents. Pediatrics 2011;128:S213 2. NCEP Expert Panel. Circulation 2004;110:227 Current Interpretive Data was last revised on 2018. Chol/HDL ratio 7 [facility] Blood specimen (specimen) 07/07/2019 5:22 PM BOTTLE BLOWING MACHINE TENDER 07/07/2019 5:49 PM BOTTLE BLOWING MACHINE TENDER us Brayan Richter MD LAB BLOOD ORDERABLE S Final Result [facility] Department [place] [address] * Differential, auto (07/07/2019 5:22 PM BOTTLE BLOWING MACHINE TENDER) Neutrophil abs 4.2 1.7 - 6.5 K/cumm [facility] Imm gran abs 0.0 0.0 - 0.1 K/cumm [facility] Lymphocyte abs 2.3 0.8 - 3.3 K/cumm [facility] Monocyte abs 0.7 0.2 - 0.8 K/cumm [facility] Eosinophil abs 0.1 0.0 - 0.5 K/cumm [facility] Basophil abs 0.0 0.0 - 0.1 K/cumm [facility] Neutrophil pct 56.5 % [facility] Comment: Interpretive Data Percent cell count reference ranges are not reported, since discordance with absolute values may lead to misinterpretation of CBC data. Current Interpretive Data was last revised on 2017. Imm gran pct 0.5 % [facility] Comment: Interpretive Data Percent cell count reference ranges are not reported, since discordance with absolute values may lead to misinterpretation of CBC data. Current Interpretive Data was last revised on 2017. Lymphocyte pct 31.5 % [facility] Comment: Interpretive Data Percent cell count reference ranges are not reported, since discordance with absolute values may lead to misinterpretation of CBC data. Current Interpretive Data was last revised on 2017. Monocyte pct 9.5 % [facility] Comment: Interpretive Data Percent cell count reference ranges are not reported, since discordance with absolute values may lead to misinterpretation of CBC data. Current Interpretive Data was last revised on 2017. Eosinophil pct 1.7 % [facility] Comment: Interpretive Data Percent cell count reference ranges are not reported, since discordance with absolute values may lead to misinterpretation of CBC data. Current Interpretive Data was last revised on 2017. Basophil pct 0.3 % [facility] Comment: Interpretive Data Percent cell count reference ranges are not reported, since discordance with absolute values may lead to misinterpretation of CBC data. Current Interpretive Data was last revised on 2017. Blood specimen (specimen) 07/07/2019 5:22 PM BOTTLE BLOWING MACHINE TENDER 07/07/2019 5:49 PM BOTTLE BLOWING MACHINE TENDER Brayan Richter MD LAB BLOOD ORDERABLE S Final Result Performing Organization Address [facility] Co de Phone Number [facility] [place] [address] * (ABNORMAL) Blood gas, arterial (07/07/2019 5:22 PM BOTTLE BLOWING MACHINE TENDER) [facility] pH, Art 7.33(L) 7.35 - 7.45 [facility] PCO2, Arterial 43 35 - 45 mmHg [facility] PO2, Arterial 49(L) 83 - 108 mmHg [facility] HCO3 Art (Calculated) 23 20 - 30 mmol/L [facility] BE, art -3 mmol/L [facility] Comment: Interpretive Data No Reference Range Established Current Interpretive Data was last revised on 2017 O2 Sat Art (Measured) 80(L) 90 - 95 % [facility] Blood specimen (specimen) 07/07/2019 5:22 PM BOTTLE BLOWING MACHINE TENDER 07/07/2019 5:59 PM BOTTLE BLOWING MACHINE TENDER Brayan Richter MD LAB BLOOD ORDERABLE S Final Result Performing Organization Address [facility] Co de Phone Number [facility] Department [place] [address] * hCG, urine, qualitative (07/07/2019 5:22 PM BOTTLE BLOWING MACHINE TENDER) [facility] HCG, ur Negative Negative [facility] Urine 07/07/2019 5:22 PM BOTTLE BLOWING MACHINE TENDER 07/07/2019 11:37 PM BOTTLE BLOWING MACHINE TENDER Brayan Richter MD LAB URINE ORDERABLE S Final Result Performing Organization Address [facility] Co de Phone Number [facility] [place] [address] * Respiratory pathogen PCR Nasopharyngeal (07/07/2019 5:22 PM BOTTLE BLOWING MACHINE TENDER) Adenovirus DNA Not Detected Not Detected [facility] Coronavirus 229E RNA Not Detected Not Detected [facility] [facility] Coronavirus HKU1 RNA Not Detected Not Detected [facility] Coronavirus NL63 RNA Not Detected Not Detected [facility] Coronavirus OC43 RNA Not Detected Not Detected [facility] Metapneumovirus RNA Not Detected Not Detected [facility] Rhinovirus/Enterov irus RNA Not Detected Not Detected [facility] Influenza A RNA Not Detected Not Detected [facility] Influenza B RNA Not Detected Not Detected [facility] Parainfluenza 1 RNA Not Detected Not Detected [facility] Parainfluenza 2 RNA Not Detected Not Detected [facility] Parainfluenza 3 RNA Not Detected Not Detected [facility] Parainfluenza 4 RNA Not Detected Not Detected [facility] RSV RNA Not Detected Not Detected [facility] B. pertussis DNA Not Detected Not Detected [facility] C. pneumoniae DNA Not Detected Not Detected [facility] M. pneumoniae DNA Not Detected Not Detected [facility] B. parapertussis DNA Not Detected Not Detected [facility] Comment: The [employer] FilmArray Respiratory Panel (RP2) assay is a multiplexed nucleic acid test capable of simultaneous qualitative detection and identification of multiple respiratory viral and bacterial nucleic acids. The following bacteria, viruses and virus subtypes can be identified using the FilmArray RP2 assay: Bordetella pertussis, Bordetella parapertussis, Chlamydophila pneumoniae, Mycoplasma pneumoniae, Adenovirus, Coronavirus HKU1, Coronavirus NL63, Coronavirus 229E, Coronavirus OC43, Influenza A, Influenza A subtype H1, Influenza A subtype H3, Influenza A subtype 2009 H1, Influenza B, Metapneumovirus, Parainfluenza 1, Parainfluenza 2, Parainfluenza 3, Parainfluenza 4, RSV, Rhinovirus/Enterovirus. Due to the genetic similarity between human Rhinovirus and Enterovirus, the FilmArray RP2 assay cannot reliably differentiate them. Coronavirus OC43 may cross-react with some isolates of Coronavirus HKU1. ??A dual positive result may be due to cross-reactivity or may indicate a co-infection. The detection and identification of specific viral and bacterial nucleic acids from individuals exhibiting signs and symptoms of a respiratory infection aids in the diagnosis of respiratory infection if used in conjunction with other clinical and epidemiological information. ??The results of this test should not be used as the sole basis for diagnosis, treatment, or other management decisions. ??Negative results in the setting of a respiratory illness may be due to infection with pathogens that are not detected by this test. ??Positive results do not rule out infection/co- infection with other organisms. ??The agent(s) detected by the FilmArray RP2 may not be the definite cause of disease. ??Additional testing (lab, imaging, etc.) may be necessary when evaluating a patient with possible respiratory tract infection. The FilmArray RP2 assay is FDA cleared for ART HANDLER swabs. ??Additional sample types have been validated according to CLIA regulations. The performance characteristics of this assay have been determined by [facility]. Current interpretive data was last revised on 2018. Nasopharyngeal 07/07/2019 5: 22 PM BOTTLE BLOWING MACHINE TENDER 07/07/2019 8:30 PM BOTTLE BLOWING MACHINE TENDER Brayan Richter MD LAB MICROBIOLOGY - GENERAL ORDERABLES Final Result [facility] Department [place] [address] * Blood culture Blood (07/07/2019 5:22 PM BOTTLE BLOWING MACHINE TENDER) Report Final Report: No growth [facility] Blood specimen (specimen) 07/07/2019 5:22 PM BOTTLE BLOWING MACHINE TENDER 07/07/2019 8:15 PM BOTTLE BLOWING MACHINE TENDER Narrative [facility] - 07/13/2019 7:01 AM BOTTLE BLOWING MACHINE TENDER From a different site than #1. 1. Blood cultures are incubated for 5 days on a continuously monitored blood culture system. The first report of a negative culture is issued within 24 hours of receipt of the specimen in the laboratory. 2. Positive culture results are reported as soon as they are detected. 3. The most important factor for detection of microbes in the setting of bloodstream infection is the volume of blood submitted for culture. Failure to collect an optimal blood volume can result in false negative blood cultures. For pediatric patients, the recommended blood volume to collect is 1 mL of blood per year of patient age (up to 20 mL) per blood culture set. For adult patients, 20 mL of blood, divided equally between aerobic and anaerobic blood culture bottles, is recommended for each blood culture set. 4. For blood cultures with Gram-positive cocci, a rapid molecular test for organism identification may be performed using the Verigene Gram-Positive Blood Culture Assay. This assay detects microbial DNA in positive blood culture broth via hybridization of target DNA to capture oligonucleotides on a microarray. This assay has been cleared by the [place] Food and Drug Administration and its performance characteristics have been verified by the [facility]. 5. For questions about this culture, contact the Microbiology Laboratory at [phone]. Interpretive data was last revised on 2018. Brayan Richter MD LAB MICROBIOLOGY - GENERAL ORDERABLES Final Result [facility] Department [place] [address] * Blood culture Blood (07/07/2019 5:22 PM BOTTLE BLOWING MACHINE TENDER) Report Final Report: No growth [facility] Blood specimen (specimen) 07/07/2019 5:22 PM BOTTLE BLOWING MACHINE TENDER 07/07/2019 8:16 PM BOTTLE BLOWING MACHINE TENDER Narrative [facility] - 07/13/2019 7:01 AM BOTTLE BLOWING MACHINE TENDER 1. Blood cultures are incubated for 5 days on a continuously monitored blood culture system. The first report of a negative culture is issued within 24 hours of receipt of the specimen in the laboratory. 2. Positive culture results are reported as soon as they are detected. 3. The most important factor for detection of microbes in the setting of bloodstream infection is the volume of blood submitted for culture. Failure to collect an optimal blood volume can result in false negative blood cultures. For pediatric patients, the recommended blood volume to collect is 1 mL of blood per year of patient age (up to 20 mL) per blood culture set. For adult patients, 20 mL of blood, divided equally between aerobic and anaerobic blood culture bottles, is recommended for each blood culture set. 4. For blood cultures with Gram-positive cocci, a rapid molecular test for organism identification may be performed using the Verigene Gram-Positive Blood Culture Assay. This assay detects microbial DNA in positive blood culture broth via hybridization of target DNA to capture oligonucleotides on a microarray. This assay has been cleared by the [place] Food and Drug Administration and its performance characteristics have been verified by the [facility]. 5. For questions about this culture, contact the Microbiology Laboratory at [phone]. Interpretive data was last revised on 2018. us Brayan Richter MD LAB MICROBIOLOGY - GENERAL ORDERABLES Final Result Performing Organization Address City/[facility] Co de Phone Number [facility] [place] [address] * (ABNORMAL) Lipase (07/07/2019 5:22 PM BOTTLE BLOWING MACHINE TENDER) Pathologist [facility] [place] Lipase 260(H) 10 - 99 Units/L [facility] Blood specimen (specimen) 07/07/2019 5:22 PM BOTTLE BLOWING MACHINE TENDER 07/07/2019 5:49 PM BOTTLE BLOWING MACHINE TENDER Brayan Richter MD LAB BLOOD ORDERABLE S Final Result Performing Organization Address [facility] de Phone Number [facility] [place] [address] * Lactate, whole blood (07/07/2019 5:22 PM BOTTLE BLOWING MACHINE TENDER) [facility] Lactate, bld 1.0 0.7 - 2.0 mmol/L [facility] Blood specimen (specimen) 07/07/2019 5:22 PM BOTTLE BLOWING MACHINE TENDER 07/07/2019 5:40 PM BOTTLE BLOWING MACHINE TENDER Brayan Richter MD LAB BLOOD ORDERABLE S Final Result Performing Organization Address [facility] [place] [address] * (ABNORMAL) Hemoglobin A1c (07/07/2019 5:22 PM BOTTLE BLOWING MACHINE TENDER) Pathologist [facility] [place] Hgb A1C 14.1(H) 4.0 - 5.6 % [facility] Estimated Average Glucose 358 mg/dL [facility] Comment: The ADA recommends reporting an estimated Average Glucose (eAG) with all Hemoglobin A1c results using the equation derived from a study of 507 normal and diabetic adults. ??Minority populations were underrepresented and children were not included. ?? (Diabetes Care 31:8900-8480, 2008). ??The eAG is not equivalent to a fasting glucose. Blood specimen (specimen) 07/07/2019 5:22 PM BOTTLE BLOWING MACHINE TENDER 07/07/2019 5:49 PM BOTTLE BLOWING MACHINE TENDER us Brayan Richter MD LAB BLOOD ORDERABLE S Final Result [facility] Department [place] [address] * (ABNORMAL) Urinalysis reflex to microscopic and culture Urine (07/07/2019 5:22 PM BOTTLE BLOWING MACHINE TENDER) Color, ur Yellow Yellow [facility] Clarity, ur Clear Clear [facility] Specific gravity, ur >1.042(H) 1.010 - 1.025 [facility] pH, urine 6 [facility] Protein, ur ql 1+(A) Negative [facility] Glucose, ur ql 3+(A) Negative [facility] Ketones, ur 2+(A) Negative [facility] Bilirubin, ur Negative Negative [facility] Blood, ur 2+(A) Negative [facility] Urobilinogen, ur <2.0 <2.0 mg/dL [facility] Nitrite, ur Negative Negative [facility] Leukocyte esterase, ur Negative Negative [facility] UA reflex comment Reflex to microscopic UA will be performed. [facility] Urine 07/07/2019 5:22 PM BOTTLE BLOWING MACHINE TENDER 07/07/2019 11:37 PM BOTTLE BLOWING MACHINE TENDER Narrative [facility] - 07/07/2019 11:53 PM BOTTLE BLOWING MACHINE TENDER ?? Urine pH is affected by diet, medications, systemic acid-base disturbances, and renal tubular function. ??pH may affect urinary stone formation. ??For example, urine pH below 6.0 may help reduce the tendency for calcium phosphate stones and pH greater than 6.0 may reduce the tendency for uric acid stone formation. Source: [facility]. Last revised 06-24-2017 Brayan Richter MD LAB MICROBIOLOGY - GENERAL ORDERABLES Final Result Performing Organization Address [facility]/ZIP Co de Phone Number [facility] Department [place] [address] * (ABNORMAL) CBC with auto differential (07/07/2019 5:22 PM BOTTLE BLOWING MACHINE TENDER) [facility] WBC 7.4 3.8 - 9.9 K/cumm [facility] Hgb 11.8(L) 11.9 - 15.5 g/dL [facility] Hct 35.1(L) 35.6 - 45.5 % [facility] Plt 153 150 - 400 K/cumm [facility] MPV 10.4 9.1 - 12.3 fL [facility] RBC 4.11 3.90 - 5.20 M/cumm [facility] MCV 85.4 81.3 - 96.4 fL [facility] MCH 28.7 27.1 - 33.3 pg [facility] MCHC 33.6 32.3 - 35.7 g/dL [facility] RDW CV 13.9 11.1 - 14.9 % [facility] RDW SD 43.1 35.7 - 48.1 fL [facility] NRBC abs 0.00 0.00 - 0.01 K/cumm [facility] Blood specimen (specimen) 07/07/2019 5:22 PM BOTTLE BLOWING MACHINE TENDER 07/07/2019 5:49 PM BOTTLE BLOWING MACHINE TENDER us Brayan Richter MD LAB BLOOD ORDERABLE S Final Result Performing Organization Address [facility]/ZIP Co de Phone Number [facility] Department [place] [address] * Phosphorus (07/07/2019 5:22 PM BOTTLE BLOWING MACHINE TENDER) Pathologist [facility] [place] Phosphorus, pl 2.7 2.3 - 4.5 mg/dL [facility] Blood specimen (specimen) 07/07/2019 5:22 PM BOTTLE BLOWING MACHINE TENDER 07/07/2019 5:49 PM BOTTLE BLOWING MACHINE TENDER us Brayan Richter MD LAB BLOOD ORDERABLE S Final Result Performing Organization Address City/[facility]/ZIP Co de Phone Number [facility] [place] [address] * Magnesium (07/07/2019 5:22 PM BOTTLE BLOWING MACHINE TENDER) Pathologist [facility] [place] Magnesium 1.5 1.4 - 2.5 mg/dL [facility] Blood specimen (specimen) 07/07/2019 5:22 PM BOTTLE BLOWING MACHINE TENDER 07/07/2019 5:49 PM BOTTLE BLOWING MACHINE TENDER us Brayan Richter MD LAB BLOOD ORDERABLE S Final Result Performing Organization Address [facility] de Phone Number [facility] [place] [address] * (ABNORMAL) Comprehensive metabolic panel (07/07/2019 5:22 PM BOTTLE BLOWING MACHINE TENDER) [facility] Sodium 140 135 - 145 mmol/L [facility] Potassium, pl 3.8 3.3 - 4.9 mmol/L [facility] Chloride 108 97 - 110 mmol/L [facility] CO2 22 22 - 32 mmol/L [facility] Anion gap 10 2 - 15 mmol/L [facility] BUN 7(L) 8 - 25 mg/dL [facility] Creatinine 0.43(L) 0.60 - 1.10 mg/dL [facility] Glucose 139 70 - 199 mg/dL [facility] Comment: Interpretive Data Fasting glucose >/= 126 [...] interpretive data was last revised 2017. Calcium 9.1 8.5 - 10.3 mg/dL [facility] Bilirubin, total 0.4 0.1 - 1.2 mg/dL [facility] Protein, pl 6.6 6.5 - 8.5 g/dL [facility] Albumin 3.3(L) 3.5 - 5.0 g/dL [facility] Alk phos 111 40 - 130 Units/L [facility] ALT 13 7 - 45 Units/L [facility] AST 18 10 - 45 Units/L [facility] Blood specimen (specimen) 07/07/2019 5:22 PM BOTTLE BLOWING MACHINE TENDER 07/07/2019 5:49 PM BOTTLE BLOWING MACHINE TENDER Brayan Richter MD LAB BLOOD ORDERABLE S Final Result Performing Organization Address City/[facility] Co de Phone Number [facility] Department [place] [address] * Infection Prevention MRSA Only (Staphylococcus aureus) Culture Nasal (07/07/2019 5:22 PM BOTTLE BLOWING MACHINE TENDER) Pathologist [facility] [place] Report Final Report: Negative [facility] Nasal 07/07/2019 5:22 PM BOTTLE BLOWING MACHINE TENDER 07/07/2019 7:08 PM BOTTLE BLOWING MACHINE TENDER Narrative [facility] - 07/09/2019 6:45 AM BOTTLE BLOWING MACHINE TENDER Testing performed by [facility] ([phone]). Brayan Richter MD LAB MICROBIOLOGY - GENERAL ORDERABLES Final Result [facility] Department of [place] [address] * ECG 12 lead (07/07/2019 4:58 PM BOTTLE BLOWING MACHINE TENDER) Ventricular Rate EKG/Min 87 BPM [facility] Atrial Rate 87 BPM [facility] [address]-Interval (MSEC) 136 ms [facility] QRS-Interval (MSEC) 82 ms [facility] QT-Interval (MSEC) 384 ms [facility] QTc 462 ms [facility] P [place] 59 degrees [facility] R [place] 23 degrees [facility] T [place] 21 degrees [facility] Diagnosis Normal sinus rhythm Nonspecific T wave abnormalities. When compared with ECG of 21-MAR-2019 06:36, No significant change was found This ECG was personally interpreted by the attending physician indicated below Confirmed by PAUL/NAT BUNDY ([id number]) on 07/11/2019 2:28:20 PM [facility] 07/07/2019 4:58 PM BOTTLE BLOWING MACHINE TENDER 07/11/2019 2:28 PM BOTTLE BLOWING MACHINE TENDER Brayan Richter MD ECG ORDERABLES Fin al Result Performing Organization Address City/[facility]/ZIP Co de Phone Number [facility] * POCT glucose (07/07/2019 4:49 PM BOTTLE BLOWING MACHINE TENDER) [facility] Glucose, POC 120 70 - 199 mg/dL [facility] Blood specimen (specimen) 07/07/2019 4:49 PM BOTTLE BLOWING MACHINE TENDER 07/07/2019 4:49 PM BOTTLE BLOWING MACHINE TENDER Brayan Richter MD LAB POCT ORDERABLES - DEVICE Final Result Performing Organization Address City/[facility]/ZIP Co de Phone Number [facility] Department [place] [address] documented in this encounter Visit Diagnoses Diagnosis Diagnosis unknown Severe malnutrition (CMS/HCC) (HCC) Nutritional marasmus documented in this encounter Administered Medications Inactive Administered Medications - up to 3 most recent administrations Medication Order MAR Action Action Date Dose Rate Site acetaminophen (TYLENOL) tablet 650 mg 650 mg, oral, Every 4 hours PRN, 1st line for pain, fever, fever greater than 38.3 C, Starting on Wed07/07/19 at 1656, Indications: Fever, PainIndications:Fever,Pain Given 07/07/2019 5:58 PM BOTTLE BLOWING MACHINE TENDER 650 mg acetaminophen (TYLENOL) tablet 650 mg 650 mg, oral, Every 4 hours PRN, fever, 1st line for pain, fever greater than 38.3 C, Starting on Wed07/07/19 at 1930, Indications: Fever, PainIndications:Fever,Pain Given 07/10/2019 5:46 AM BOTTLE BLOWING MACHINE TENDER 650 mg Given 07/09/2019 9:54 PM BOTTLE BLOWING MACHINE TENDER 650 mg Given 07/09/2019 8:17 AM BOTTLE BLOWING MACHINE TENDER 650 mg acetaminophen (TYLENOL) tablet 650 mg 650 mg, oral, Every 6 hours scheduled, First dose (after last modification) on Wed07/10/19 at 1200, Indications: Fever, PainIndications:Fever,Pain Given 07/11/2019 3:46 PM BOTTLE BLOWING MACHINE TENDER 650 mg Given 07/11/2019 9:23 AM BOTTLE BLOWING MACHINE TENDER 650 mg Given 07/11/2019 3:30 AM BOTTLE BLOWING MACHINE TENDER 650 mg dextrose (D10W) 10% bolus 250 mL 250 mL, intravenous, at 1,000 mL/hr, Administer over 15 Minutes, Every 15 min PRN, blood glucose less than 70 mg/dL and UNABLE to swallow/take PO glucose/juice., Starting on Wed07/09/19 at 1049, After treatment for hypoglycemia, recheck BG followed by treatment every 15 minutes until the BG is greater than 100 mg/dL. Then check BG 1 hour post treatment. If BG is less than 100 mg/dL, repeat Q15 minute BG checks and treatment. Call MD for each episode of hypoglycemia., Indications: hypoglycemic disorderIndications:hypoglycemi c disorder dextrose (GLUTOSE) 40 % gel 15 g 15 g, oral, Every 15 min PRN, low blood sugar, blood glucose less than 70 mg/dL, Starting on Wed07/09/19 at 1049, If patient is alert and able to eat/drink, give 15 gm glucose or one juice (4 fluid ounces) NOT ORANGE JUICE. After treatment for hypoglycemia, recheck BG followed by treatment every 15 minutes until the BG is greater than 100 mg/dL. Then check BG 1 hour post-treatment. If BG is less than 100 mg/dL, repeat Q15 minute BG checks and treatment. Call MD for each episode of hypoglycemia. [employer] STATES GLUTOSE-15 CONTAINS GLUCOSE 40% W/W (50% W/V), Indications: hypoglycemic disorderIndications:hypoglycemi c disorder enoxaparin (LOVENOX) syringe 40 mg 40 mg, subcutaneous, Daily (for enoxaparin), First dose on Wed07/07/19 at 2100, Indications: Deep Vein Thrombosis PreventionIndications:Deep Vein Thrombosis Prevention Given 07/09/2019 9:53 PM BOTTLE BLOWING MACHINE TENDER 40 mg Left Lower Abdomen Given 07/08/2019 8:50 PM BOTTLE BLOWING MACHINE TENDER 40 mg Le ft Lower Abdomen escitalopram (LEXAPRO) tablet 10 mg 10 mg, oral, Daily, First dose on 07/08/19 at 0900 Given 07/11/2019 9:23 AM BOTTLE BLOWING MACHINE TENDER 10 mg Given 07/10/2019 8:37 AM BOTTLE BLOWING MACHINE TENDER 10 mg Given 07/09/2019 8:16 AM BOTTLE BLOWING MACHINE TENDER 10 mg glucagon injection 1 mg 1 mg, intramuscular, Administer over 1 Minutes, Every 30 min PRN, low blood sugar, blood glucose less than 70 mg/dL AND no IV access AND unable to take PO glucose/jiuce., Starting on Wed07/09/19 at 1049, After Glucagon is administered, position patient on side if possible to avoid aspiration. Obtain IV access. Follow glucagon treatment with glucose treatment or IV dextrose. After treatment for hypoglycemia, recheck BG followed by treatment every 15 minutes until the BG is greater than 100 mg/dL. Then check BG 1 hour post treatment. If BG is less than 100 mg/dL, repeat Q15 minute BG checks and treatment. Call MD for each episode of hypoglycemia., Indications: HypoglycemiaIndications:Hypo glycemia insulin glargine (LANTUS) injection 10 Units 10 Units, subcutaneous, Once, On Wed07/07/19 at 2015, For 1 dose, Do not mix with other insulins, Indications: Diabetes MellitusIndications:Diabetes Mellitus Given 07/07/2019 7:46 PM BOTTLE BLOWING MACHINE TENDER 10 Units Left Lower Abdomen insulin glargine (LANTUS) injection 18 Units 18 Units, subcutaneous, Nightly, First dose (after last modification) on 07/08/19 at 2100, Do not mix with other insulins, Indications: Diabetes MellitusIndications:Diabetes Mellitus Given 07/09/2019 9:53 PM BOTTLE BLOWING MACHINE TENDER 18 Units Left Lower Abdomen Given 07/08/2019 8:50 PM BOTTLE BLOWING MACHINE TENDER 18 Units Le ft Lower Abdomen insulin glargine (LANTUS) injection 22 Units 22 Units, subcutaneous, Nightly, First dose (after last modification) on Wed07/10/19 at 2100, Do not mix with other insulins, Indications: Diabetes MellitusIndications:Diabetes Mellitus Given 07/10/2019 10:09 PM BOTTLE BLOWING MACHINE TENDER 22 Units Left Upper Arm insulin glargine (LANTUS) injection 25 Units 25 Units, subcutaneous, Nightly, First dose (after last modification) on Wed07/11/19 at 2100, Do not mix with other insulins, Indications: Diabetes MellitusIndications:Diabetes Mellitus insulin lispro (HumaLOG) injection 1-2 Units 1-2 Units, subcutaneous, Nightly, First dose on Wed07/08/19 at 2100, Blood Sugar Low Dose PM - PO patients 200 or less No Insulin 201 - 250 1 unit 251 - 299 2 units Greater than 299 Call MD for hyperglycemia management instructions Do NOT hold for NPO status., Indications: Diabetes MellitusIndications:Diabetes Mellitus Given 07/08/2019 8:51 PM BOTTLE BLOWING MACHINE TENDER 1 Units Left Lower Abdomen insulin lispro (HumaLOG) injection 1-3 Units 1-3 Units, subcutaneous, Every 4 hours scheduled, First dose on Wed07/07/19 at 1745, Blood Sugar Mid Dose - NPO patients 175 or less No Insulin 176 - 200 1 unit 201 - 250 2 units 251 - 299 3 units Greater than 299 Call MD for hyperglycemia management instructions Do NOT hold for NPO status., Indications: Diabetes MellitusIndications:Diabetes Mellitus Given 07/08/2019 12:22 AM BOTTLE BLOWING MACHINE TENDER 1 Units Left Lower Abdomen Given 07/07/2019 7:46 PM BOTTLE BLOWING MACHINE TENDER 2 Units Le ft Lower Abdomen insulin lispro (HumaLOG) injection 1-3 Units 1-3 Units, subcutaneous, 3 times daily with meals, First dose on Wed07/08/19 at 1900, Blood Sugar Low Dose meal time - PO patients 175 or less No Insulin 176 - 200 1 unit 201 - 250 2 units 251 - 299 3 units Greater than 299 Call MD for hyperglycemia management instructions Do NOT hold for NPO status., Indications: Diabetes MellitusIndications:Diabetes Mellitus Given 07/09/2019 8:17 AM BOTTLE BLOWING MACHINE TENDER 2 Units Left Upper Arm Given 07/08/2019 6:51 PM BOTTLE BLOWING MACHINE TENDER 3 Units Le ft Upper Arm insulin lispro (HumaLOG) injection 1-3 Units 1-3 Units, subcutaneous, Nightly, First dose on Wed07/09/19 at 2100, Blood Sugar Mid Dose PM - PO patients 175 or less No insulin 176 - 200 1 unit 201 - 250 2 units 251 - 299 3 units Greater than 299 Call MD for hyperglycemia management instructions Do NOT hold for NPO status., Indications: Diabetes MellitusIndications:Diabetes Mellitus Given 07/09/2019 9:53 PM BOTTLE BLOWING MACHINE TENDER 1 Units Left Lower Abdomen insulin lispro (HumaLOG) injection 1-5 Units 1-5 Units, subcutaneous, 3 times daily with meals, First dose on 07/09/19 at 1200, Blood Sugar Mid Dose meal time - PO patients 139 or less No insulin 140 - 175 1 unit 176 - 200 2 unit 201 - 250 3 units 251 - 299 5 units Greater than 299 Call MD for hyperglycemia management instructions Do NOT hold for NPO status., Indications: Diabetes MellitusIndications:Diabetes Mellitus Given 07/11/2019 5:25 PM BOTTLE BLOWING MACHINE TENDER 5 Units Right Lower Abdomen Given 07/11/2019 1:21 PM BOTTLE BLOWING MACHINE TENDER 2 Units Le ft Lower Abdomen Given 07/10/2019 12:47 PM BOTTLE BLOWING MACHINE TENDER 3 Units L eft Upper Arm insulin lispro (HumaLOG) injection 2 Units 2 Units, subcutaneous, Once, On 07/07/19 at 2200, For 1 dose Given 07/07/2019 9:42 PM BOTTLE BLOWING MACHINE TENDER 2 Units Left Lower Abdomen insulin lispro (HumaLOG) injection 5 Units 5 Units, subcutaneous, 3 times daily with meals, First dose on 07/09/19 at 0800, If BG 100 mg/dl or more, give with meals/tube feeds . If BG less than 100 mg/dl, give after meals/tube feeds. Hold pre-meal insulin if NPO, unable to eat, or BG less than 70 mg/dl. Administer pre-meal doses when patient's food tray arrives in room or after the meal in patients with poor meal intake. If patient is not eating the majority of their meal, call MD for an adjustment in patient's insulin dose., Indications: Diabetes MellitusIndications:Diabetes Mellitus Given 07/11/2019 5:25 PM BOTTLE BLOWING MACHINE TENDER 5 Units Right Lower Abdomen Given 07/11/2019 1:22 PM BOTTLE BLOWING MACHINE TENDER 5 Units Le ft Lower Abdomen Given 07/10/2019 5:53 PM BOTTLE BLOWING MACHINE TENDER 5 Units Ri ght Lower Abdomen insulin lispro (HumaLOG) injection 6 Units 6 Units, subcutaneous, Once, On 07/08/19 at 1700, For 1 dose Given 07/08/2019 4:32 PM BOTTLE BLOWING MACHINE TENDER 6 Units Left Upper Arm insulin regular (HumuLIN R, NovoLIN R) injection 3 Units 3 Units (rounded from 3.095 Units = 0.05 Units/kg ? 61.9 kg Dosing weight), intravenous, Once, On Wed07/11/19 at 0930, For 1 dose, Indications: HyperglycemiaIndications:Hyper glycemia Given 07/11/2019 9:24 AM BOTTLE BLOWING MACHINE TENDER 3 Units insulin regular (HumuLIN R, NovoLIN R) injection 5 Units 5 Units, intravenous, Once, On 07/08/19 at 1900, For 1 dose Given 07/08/2019 6:42 PM BOTTLE BLOWING MACHINE TENDER 5 Units Left Upper Arm magnesium sulfate 4 g/100 mL in water (premix) 4 g 4 g, intravenous, Administer over 90 Minutes, Once, On 07/08/19 at 0245, For 1 dose New Bag 07/08/2019 3:45 AM BOTTLE BLOWING MACHINE TENDER 4 g morphine injection 2 mg 2 mg, intravenous, Administer over 4 Minutes, Every 4 hours PRN, 2nd line for pain, Starting on Wed07/07/19 at 1930 Given 07/07/2019 7:40 PM BOTTLE BLOWING MACHINE TENDER 2 mg morphine injection 2 mg 2 mg, intravenous, Administer over 4 Minutes, Every 2 hours PRN, 2nd line for pain, Starting on Wed07/07/19 at 2145 Given 07/08/2019 10:00 PM BOTTLE BLOWING MACHINE TENDER 2 mg Given 07/08/2019 4:26 PM BOTTLE BLOWING MACHINE TENDER 2 mg Given 07/08/2019 1:33 PM BOTTLE BLOWING MACHINE TENDER 2 mg ondansetron (ZOFRAN) injection 4 mg 4 mg, intravenous, Administer over 2 Minutes, Every 6 hours PRN, nausea, vomiting, Starting on Wed07/07/19 at 1834 oxyCODONE (ROXICODONE) tablet 5 mg 5 mg, oral, Every 4 hours PRN, 2nd line for pain, Starting on 07/08/19 at 1625, Indications: Pain, 2nd lineIndications:Pain,2nd line Given 07/10/2019 5:46 AM BOTTLE BLOWING MACHINE TENDER 5 mg Given 07/09/2019 9:54 PM BOTTLE BLOWING MACHINE TENDER 5 mg Given 07/09/2019 6:17 PM BOTTLE BLOWING MACHINE TENDER 5 mg oxyCODONE (ROXICODONE) tablet 5 mg 5 mg, oral, Every 4 hours PRN, 1st line for pain, Starting on Wed07/10/19 at 0725, Indications: Pain, 2nd lineIndications:Pain,2nd line Given 07/11/2019 3:46 PM BOTTLE BLOWING MACHINE TENDER 5 mg Given 07/11/2019 9:23 AM BOTTLE BLOWING MACHINE TENDER 5 mg Given 07/11/2019 3:31 AM BOTTLE BLOWING MACHINE TENDER 5 mg polyethylene glycol (MIRALAX) packet 17 g 17 g, oral, 2 times daily, First dose on Wed07/10/19 at 0900, Hold for diarrhea, Indications: constipationIndications:constipation Given 07/11/2019 9:23 AM BOTTLE BLOWING MACHINE TENDER 17 g Given 07/10/2019 10:10 PM BOTTLE BLOWING MACHINE TENDER 17 g Given 07/10/2019 8:37 AM BOTTLE BLOWING MACHINE TENDER 17 g potassium chloride 20 mEq/260 mL in sodium chloride 0.9% (premix) 20 mEq 20 mEq, intravenous, Administer over 2 Hours, Once, On 07/08/19 at 0645, For 1 dose, Total dose = 60 mEq. Start immediately after first potassium chloride infusion ends., Indications: hypokalemiaIndications:hypokalemi a New Bag 07/08/2019 8:48 AM BOTTLE BLOWING MACHINE TENDER 20 mEq potassium chloride 40 mEq/520 mL in sodium chloride 0.9% (premix) 40 mEq 40 mEq, intravenous, at 130 mL/hr, Administer over 4 Hours, Once, On 07/08/19 at 0245, For 1 dose, Total dose = 60 mEq, Indications: hypokalemiaIndications:hypokalemi a New Bag 07/08/2019 3:45 AM BOTTLE BLOWING MACHINE TENDER 40 mEq 130 mL/hr potassium chloride ER (KLOR-CON) extended release tablet 40 mEq 40 mEq, oral, Once, On 07/09/19 at 0915, For 1 dose, Do not crush, chew, cut, dissolve, open or otherwise manipulate tablet/capsule. Given 07/09/2019 9:41 AM BOTTLE BLOWING MACHINE TENDER 40 mEq senna (SENOKOT) tablet 1 tablet 1 tablet, oral, 2 times daily, First dose on Wed07/10/19 at 0900, Hold for diarrhea Given 07/11/2019 9:23 AM BOTTLE BLOWING MACHINE TENDER 1 tablet Given 07/10/2019 10:11 PM BOTTLE BLOWING MACHINE TENDER 1 tablet Given 07/10/2019 8:37 AM BOTTLE BLOWING MACHINE TENDER 1 tablet sodium chloride 0.9% flush 0.5-20 mL 0.5-20 mL, intra-catheter, Every 8 hours scheduled, First dose on Wed07/07/19 at 1730, Flush volume based on line type and size. Given 07/11/2019 1:23 PM BOTTLE BLOWING MACHINE TENDER 10 mL Given 07/10/2019 10:11 PM BOTTLE BLOWING MACHINE TENDER 10 mL Given 07/10/2019 12:48 PM BOTTLE BLOWING MACHINE TENDER 10 mL sodium chloride 0.9% flush 0.5-20 mL 0.5-20 mL, intra-catheter, As needed, line care, Starting on Wed07/07/19 at 1655, Flush volume based on line type and size. Flush before and after each use. sodium chloride 0.9% flush 0.5-20 mL 0.5-20 mL, intra-catheter, Every 8 hours scheduled, First dose on Wed07/07/19 at 1730, Flush volume based on line type and size. Given 07/11/2019 1:22 PM BOTTLE BLOWING MACHINE TENDER 10 mL Given 07/10/2019 10:11 PM BOTTLE BLOWING MACHINE TENDER 10 mL Given 07/10/2019 12:48 PM BOTTLE BLOWING MACHINE TENDER 10 mL sodium chloride 0.9% flush 0.5-20 mL 0.5-20 mL, intra-catheter, As needed, line care, Starting on Wed07/07/19 at 1655, Flush volume based on line type and size. Flush before and after each use. documented in this encounter Discontinued Medications Medication Sig Discontinue Reason Start Date End Da te insulin lispro (HumaLOG) 100 unit/mL insulin penIndications:type 1 diabetes mellitus Inject 1-3 Units under the skin 3 (three) times a day with meals Refer to After Visit Summary for Sliding Scale Insulin Instructions Stop Taking at Discharge 07/10/2019 07/10/2019 insulin glargine (LANTUS) 100 unit/mL injectionIndications :Diabetes Mellitus Inject 22 Units under the skin nightly Stop Taking at Discharge 07/10/2019 07/10/2019 insulin lispro (HumaLOG) 100 unit/mL insulin pen Inject 1-7 Units under the skin 3 (three) times a day with meals 1 unit for every 25 glucose greater than 150 up to max 7 units 07/10/2019 07/11/2019 blood-glucose meter (Glucocard Shine Meter Kit) kit 1 Device once for 1 dose Reorder 07/10/2019 07/11/2019 blood glucose diagnostic (Glucocard Shine Test Strips) strip Use as needed Reorder 07/10/2019 07/11/2019 pen needle, diabetic 33 gauge x 5/32 needle 1 Device 5 (five) times a day Reorder 07/10/2019 07/11/2019 lancets 17 gauge misc 1 Device 5 (five) times a day Reorder 07/10/2019 07/11/2019 documented as of this encounter Active and Recently Administered Medications Times are shown in BOTTLE BLOWING MACHINE TENDER. Scheduled Medication Order 07/09/2019 07/10/2019 07/11/2019 acetaminophen (TYLENOL) tablet 650 mg 650 mg, oral, Every 6 hours scheduled, First dose (after last modification) on Wed07/10/19 at 1200, Indications: Fever, Pain 1251 (Given - Provider: Mendel Robertson RN)1752 (Given - Provider: Mendel Robertson RN) 0330 (Given - Provider: Alicia Kaur RN - Comment: pt sleeping at initial time)0923 (Given - Provider: Mendel Robertson RN)1546 (Given - Provider: Mendel Robertson RN) enoxaparin (LOVENOX) syringe 40 mg 40 mg, subcutaneous, Daily (for enoxaparin), First dose on Wed07/07/19 at 2100, Indications: Deep Vein Thrombosis Prevention 215 (Given - Provider: Whit Merritt RN) 2210 (Not Given - Provider: Alicia Kaur RN - Reason: Patient/family refused) escitalopram (LEXAPRO) tablet 10 mg 10 mg, oral, Daily, First dose on 07/08/19 at 0900 0816 (Given - Provider: Ridge Castle RN) 0837 (Given - Provider: Mendel Robertson RN) 0923 (Given - Provider: Mendel Robertson RN) insulin glargine (LANTUS) injection 18 Units (CANCELED) 18 Units, subcutaneous, Nightly, First dose (after last modification) on 07/08/19 at 2100, Do not mix with other insulins, Indications: Diabetes Mellitus 2152 (Given - Provider: Whit Merritt RN) insulin glargine (LANTUS) injection 22 Units 22 Units, subcutaneous, Nightly, First dose (after last modification) on Wed07/10/19 at 2100, Do not mix with other insulins, Indications: Diabetes Mellitus 2208 (Given - Provider: Alicia Kaur RN) insulin glargine (LANTUS) injection 25 Units 25 Units, subcutaneous, Nightly, First dose (after last modification) on Wed07/11/19 at 2100, Do not mix with other insulins, Indications: Diabetes Mellitus insulin lispro (HumaLOG) injection 1-3 Units (CANCELED) 1-3 Units, subcutaneous, 3 times daily with meals, First dose on 07/08/19 at 1900, Blood Sugar Low Dose meal time - PO patients 175 or less No Insulin 176 - 200 1 unit 201 - 250 2 units 251 - 299 3 units Greater than 299 Call MD for hyperglycemia management instructions Do NOT hold for NPO status., Indications: Diabetes Mellitus 08 (Given - Provider: Ridge Castle RN) insulin lispro (HumaLOG) injection 1-3 Units 1-3 Units, subcutaneous, Nightly, First dose on 07/09/19 at 2100, Blood Sugar Mid Dose PM - PO patients 175 or less No insulin 176 - 200 1 unit 201 - 250 2 units 251 - 299 3 units Greater than 299 Call MD for hyperglycemia management instructions Do NOT hold for NPO status., Indications: Diabetes Mellitus 2152 (Given - Provider: Whit Merritt RN) 2149 (Not Given - Provider: Alicia Kaur RN - Reason: Order parameters not met) insulin lispro (HumaLOG) injection 1-5 Units 1-5 Units, subcutaneous, 3 times daily with meals, First dose on 07/09/19 at 1200, Blood Sugar Mid Dose meal time - PO patients 139 or less No insulin 140 - 175 1 unit 176 - 200 2 unit 201 - 250 3 units 251 - 299 5 units Greater than 299 Call MD for hyperglycemia management instructions Do NOT hold for NPO status., Indications: Diabetes Mellitus 1249 (Not Given - Provider: Ridge Castle RN - Reason: Contraindicated)1751 (Not Given - Provider: Ridge Castle RN - Reason: Contraindicated) 0838 (Given - Provider: Mendel Robertson RN - Comment: 299mb/dl)1247 (Given - Provider: Mendel Robertson RN)1753 (Not Given - Provider: Mendel Robertson RN - Reason: Order parameters not met) 0924 (Not Given - Provider: Mendel Robertson RN - Reason: See Provider Order)1321 (Given - Provider: Mendel Robertson RN - Comment: pt adminstered the insulin injection)1725 (Given - Provider: Mendel Robertson RN) insulin lispro (HumaLOG) injection 5 Units 5 Units, subcutaneous, 3 times daily with meals, First dose on Wed07/09/19 at 0800, If BG 100 mg/dl or more, give with meals/tube feeds . If BG less than 100 mg/dl, give after meals/tube feeds. Hold pre-meal insulin if NPO, unable to eat, or BG less than 70 mg/dl. Administer pre-meal doses when patient's food tray arrives in room or after the meal in patients with poor meal intake. If patient is not eating the majority of their meal, call MD for an adjustment in patient's insulin dose., Indications: Diabetes Mellitus 0817 (Given - Provider: Ridge Castle RN)1328 (Given - Provider: Ridge Castle RN)1817 (Given - Provider: Ridge Castle RN) 0838 (Given - Provider: Mendel Robertson RN)1247 (Given - Provider: Mendel Robertson RN)1753 (Given - Provider: Mendel Robertson RN) 0923 (Not Given - Provider: Mendel Robertson RN - Reason: See Provider Order)1322 (Given - Provider: Mendel Robertson RN - Comment: pt adminstered the insulin injection)1725 (Given - Provider: Mendel Robertson RN) insulin regular (HumuLIN R, NovoLIN R) injection 3 Units (COMPLETED)(Linked Group 1) 3 Units (rounded from 3.095 Units = 0.05 Units/kg ? 61.9 kg Dosing weight), intravenous, Once, On Wed07/11/19 at 0930, For 1 dose, Indications: Hyperglycemia 0924 (Given - Provider: Mendel Robertson RN) polyethylene glycol (MIRALAX) packet 17 g 17 g, oral, 2 times daily, First dose on Wed07/10/19 at 0900, Hold for diarrhea, Indications: constipation 0837 (Given - Provider: Mendel Robertson RN)2210 (Given - Provider: Alicia Kaur RN) 0923 (Given - Provider: Mendel Robertson RN) potassium chloride ER (KLOR-CON) extended release tablet 40 mEq (COMPLETED) 40 mEq, oral, Once, On Wed07/09/19 at 0915, For 1 dose, Do not crush, chew, cut, dissolve, open or otherwise manipulate tablet/capsule. 0941 (Given - Provider: Ridge Castle, SINA) senna (SENOKOT) tablet 1 tablet 1 tablet, oral, 2 times daily, First dose on Wed07/10/19 at 0900, Hold for diarrhea 0837 (Given - Provider: Mendel Robertson RN)2210 (Given - Provider: Alicia Kaur RN) 09 (Given - Provider: Mendel Robertson RN) sodium chloride 0.9% flush 0.5-20 mL 0.5-20 mL, intra-catheter, Every 8 hours scheduled, First dose on Wed07/07/19 at 1730, Flush volume based on line type and size. 0545 (Lab Draw - Provider: Casper Way RN)132 (Given - Provider: Ridge Castle RN)2153 (Given - Provider: Whit Merritt RN) 0547 (Given - Provider: Whit Merritt RN)1248 (Given - Provider: Mendel Robertson RN)221 (Given - Provider: Alicia Kaur RN) 0658 (Not Given - Provider: Alicia Kaur RN - Reason: Patient not available)132 (Given - Provider: Mendel Robertson RN) sodium chloride 0.9% flush 0.5-20 mL(Linked Group 2) 0.5-20 mL, intra-catheter, Every 8 hours scheduled, First dose on Wed07/07/19 at 1730, Flush volume based on line type and size. 0545 (Lab Draw - Provider: Casper Way RN)132 (Given - Provider: Ridge Castle, SINA)2152 (Given - Provider: Whit Merritt RN) 0546 (Given - Provider: Whit Merritt RN)1248 (Given - Provider: Mendel Robertson RN)221 (Given - Provider: Alicia Kaur RN) 0658 (Not Given - Provider: Alicia Kaur RN - Reason: Patient not available)1322 (Given - Provider: Mendel Robertson, SINA) PRN Medication Order 07/09/2019 07/10/2019 07/11/2019 acetaminophen (TYLENOL) tablet 650 mg (CANCELED) 650 mg, oral, Every 4 hours PRN, fever, 1st line for pain, fever greater than 38.3 C, Starting on Wed07/07/19 at 1930, Indications: Fever, Pain 0817 (Given - Provider: Ridge Castle RN - Comment: rt abdomen)2154 (Given - Provider: Whit Merritt, SINA) 0546 (Given - Provider: Whit Merritt, SINA) dextrose (D10W) 10% bolus 250 mL(Linked Group 3) 250 mL, intravenous, at 1,000 mL/hr, Administer over 15 Minutes, Every 15 min PRN, blood glucose less than 70 mg/dL and UNABLE to swallow/take PO glucose/juice., Starting on 07/09/19 at 1049, After treatment for hypoglycemia, recheck BG followed by treatment every 15 minutes until the BG is greater than 100 mg/dL. Then check BG 1 hour post treatment. If BG is less than 100 mg/dL, repeat Q15 minute BG checks and treatment. Call MD for each episode of hypoglycemia., Indications: hypoglycemic disorder dextrose (GLUTOSE) 40 % gel 15 g(Linked Group 3) 15 g, oral, Every 15 min PRN, low blood sugar, blood glucose less than 70 mg/dL, Starting on 07/09/19 at 1049, If patient is alert and able to eat/drink, give 15 gm glucose or one juice (4 fluid ounces) NOT ORANGE JUICE. After treatment for hypoglycemia, recheck BG followed by treatment every 15 minutes until the BG is greater than 100 mg/dL. Then check BG 1 hour post-treatment. If BG is less than 100 mg/dL, repeat Q15 minute BG checks and treatment. Call MD for each episode of hypoglycemia. DISTRIBUTION LINEMAN STATES GLUTOSE-15 CONTAINS GLUCOSE 40% W/W (50% W/V), Indications: hypoglycemic disorder glucagon injection 1 mg 1 mg, intramuscular, Administer over 1 Minutes, Every 30 min PRN, low blood sugar, blood glucose less than 70 mg/dL AND no IV access AND unable to take PO glucose/jiuce., Starting on Wed07/09/19 at 1049, After Glucagon is administered, position patient on side if possible to avoid aspiration. Obtain IV access. Follow glucagon treatment with glucose treatment or IV dextrose. After treatment for hypoglycemia, recheck BG followed by treatment every 15 minutes until the BG is greater than 100 mg/dL. Then check BG 1 hour post treatment. If BG is less than 100 mg/dL, repeat Q15 minute BG checks and treatment. Call MD for each episode of hypoglycemia., Indications: Hypoglycemia ondansetron (ZOFRAN) injection 4 mg 4 mg, intravenous, Administer over 2 Minutes, Every 6 hours PRN, nausea, vomiting, Starting on Wed07/07/19 at 1834 oxyCODONE (ROXICODONE) tablet 5 mg (CANCELED) 5 mg, oral, Every 4 hours PRN, 2nd line for pain, Starting on 07/08/19 at 1625, Indications: Pain, 2nd line 0300 (Given - Provider: Casper Way RN)0941 (Given - Provider: Ridge Castle RN - Comment: rt Abdomen)1403 (Given - Provider: Ridge Castle RN - Comment: rt abdomen)1817 (Given - Provider: Ridge Castle RN - Comment: rt abdomen)2154 (Given - Provider: Whit Merritt RN) 0546 (Given - Provider: Whit Merritt, SINA) oxyCODONE (ROXICODONE) tablet 5 mg 5 mg, oral, Every 4 hours PRN, 1st line for pain, Starting on 07/10/19 at 0725, Indications: Pain, 2nd line 0845 (Given - Provider: Mendel Robertson RN)1251 (Given - Provider: Mendel Robertson RN)1752 (Given - Provider: Mendel Robertson RN)2218 (Given - Provider: Alicia Kaur RN) 0331 (Given - Provider: Alicia Kaur RN)0923 (Given - Provider: Mendel Robertson RN)1546 (Given - Provider: Mendel Robertson RN) sodium chloride 0.9% flush 0.5-20 mL 0.5-20 mL, intra-catheter, As needed, line care, Starting on Wed07/07/19 at 1655, Flush volume based on line type and size. Flush before and after each use. sodium chloride 0.9% flush 0.5-20 mL(Linked Group 2) 0.5-20 mL, intra-catheter, As needed, line care, Starting on Wed07/07/19 at 1655, Flush volume based on line type and size. Flush before and after each use. Linked Groups Order Group 1: insulin regular (HumuLIN R, NovoLIN R) injection 3 Units (COMPLETED)Jump to med 3 Units (rounded from 3.095 Units = 0.05 Units/kg ? 61.9 kg Dosing weight), intravenous, Once, On Wed07/11/19 at 0930, For 1 dose, Indications: Hyperglycemia And POCT glucose (CANCELED) Once (Routine), On Wed07/11/19 at 0847, For 1 occurrence, 1 hour after administering IV push Insulin Regular. Communicate result with MD. And POCT glucose (CANCELED) Once (Routine), On Wed07/11/19 at 0847, For 1 occurrence, 3 hours after administering IV push Insulin Regular. Communicate result with MD. Group 2: Saline lock IV (CANCELED) Routine, Once (Routine), On Wed07/07/19 at 1656, For 1 occurrence And sodium chloride 0.9% flush 0.5-20 mLJump to med 0.5-20 mL, intra-catheter, Every 8 hours scheduled, First dose on Wed07/07/19 at 1730, Flush volume based on line type and size. And sodium chloride 0.9% flush 0.5-20 mLJump to med 0.5-20 mL, intra-catheter, As needed, line care, Starting on Wed07/07/19 at 1655, Flush volume based on line type and size. Flush before and after each use. Group 3: dextrose (GLUTOSE) 40 % gel 15 gJump to med 15 g, oral, Every 15 min PRN, low blood sugar, blood glucose less than 70 mg/dL, Starting on Wed07/09/19 at 1049, If patient is alert and able to eat/drink, give 15 gm glucose or one juice (4 fluid ounces) NOT ORANGE JUICE. After treatment for hypoglycemia, recheck BG followed by treatment every 15 minutes until the BG is greater than 100 mg/dL. Then check BG 1 hour post-treatment. If BG is less than 100 mg/dL, repeat Q15 minute BG checks and treatment. Call MD for each episode of hypoglycemia. DISTRIBUTION LINEMAN STATES GLUTOSE-15 CONTAINS GLUCOSE 40% W/W (50% W/V), Indications: hypoglycemic disorder Or dextrose (D10W) 10% bolus 250 mLJump to med 250 mL, intravenous, at 1,000 mL/hr, Administer over 15 Minutes, Every 15 min PRN, blood glucose less than 70 mg/dL and UNABLE to swallow/take PO glucose/juice., Starting on 07/09/19 at 1049, After treatment for hypoglycemia, recheck BG followed by treatment every 15 minutes until the BG is greater than 100 mg/dL. Then check BG 1 hour post treatment. If BG is less than 100 mg/dL, repeat Q15 minute BG checks and treatment. Call MD for each episode of hypoglycemia., Indications: hypoglycemic disorder documented in this encounter Orders Medications Ordered That Jamil ht Not Have Been Administered Count Last Ordered Date First Ordered Date insulin glargine (LANTUS) in jection 25 Units 1 07/11/2019 dextrose (D10W) 10% bolus 250 mL 3 07/09/19 20 07/07/2019 dextrose (GLUTOSE) 40 % gel 15 g 2 07/09/19 20 07/07/2019 glucagon injection 1 mg 3 07/09/201906/15 insulin glargine (LANTUS) in jection 10 Units 1 07/08/2019 oxyCODONE (ROXICODONE) tablet 5 mg 3 2019 ondansetron (ZOFRAN) injection 4 mg 1 07/07 sodium chloride 0.9% flush 0.5-20 mL 2 06/15 Lab Orders Without Results Count Last Ordered D ate First Ordered Date BASIC METABOLIC PANEL 1 07/11/2019 POCT GLUCOSE DEVICE 11 07/10/2019 07/07/19 20 HCG, BLOOD, QUANTITATIVE 1 07/09/2019 LIPID PANEL 1 07/07/2019 Nursing Count Last Ordered Date First Orde red Date WEIGH PATIENT 1 07/07/2019 Consult Count Last Ordered Date First Orde red Date IP CONSULT TO BEHAVIORAL SCIENCE CHAIR 1 0 IP CONSULT TO SUCCESSFACTORS CONSULTANT 1 07/10/2019 IP CONSULT TO SOCIAL WORK 1 07/10/2019 IP CONSULT TO NUTRITION SERVICES 1 07/07/19 20 Isolation Count Last Ordered Date First Orde red Date INITIATE DROPLET ISOLATION 1 07/07/2019 documented in this encounter Care Teams Marzipan Maker Relationship Specialty Start Date End Date Thao Dove MD PCP - General 03/14/19 documented as of this encounter
--- OUTSIDE RECORDS SUMMARY | 2024-07-02 03:55 | XMS_ITS | Encounter Summary ---
Author Organization [facility] Healthcare Address [address] [place] [address] Care Team Providers Care Change Number Operator Name Role Phone Thao Dove MD Primary Care Provider Encounter Details Date Type Department Care Team (Late st Contact Info) Description 10/02/2019 10:04 AM CDT Anesthesia Event [facility] Operating Room [address] [place] [address] Charleen Feldman MD [address] [facility] [address] [place] [address] Christina Amaya NP [address] [place], [place] [id number] Anesthesia Record Procedure Summary Procedure Name Responsible Anesthesiologist Anesthesia Start Time Anesthesia Stop Time OPEN REDUCTION INTERNAL FIXATION - HUMERUS (Left: Arm Upper) Charleen Feldman MD 10/02/19 1004 10/02/19 1249 Events Date Time Event Comment 10/02/2019 1004 An Start 1009 An Start Data 1009 In Room 1018 An Induction The patient was reevaluated immediately before moderate or deep sedation use and before anesthesia induction. 1019 An Intubation 1026 Anesthesia Ready 1030 1047 Proc Start 1047 Incision Start 1059 Quick Note Surgeon request ing muscle relaxant 1230 Proc Fin 1242 Out of Room 1246 Handoff to RN I completed my handoff to the receiving nurse during which we: 1. Patient identified 2. Responsible provider identified 3. Pertinent medical history reviewed 4. Procedure type and surgical course discussed 5. Intraoperative anesthetic management and any significant issues discussed 6. Expectations and concerns for postop period discussed 7. Questions solicited from receiving nurse 8. Patient disposition at the time of handoff: phase II 1249 An Stop 1320 Face Time 1320 An Block Induction The patie nt was reevaluated immediately before moderate or deep sedation and before anesthesia induction. 1320 Time out - Regional 1325 Block Placed Meds Name Total lidocaine 1 % PF 100 mg fentaNYL 250 mcg propofol 200 mg rocuronium 20 mg succinylcholine 100 mg phenylephrine 100 mcg/mL 300 mcg ondansetron PF (ZOFRAN) 2 mg/mL injectio n 4 mg glycopyrrolate 0.2 mg ceFAZolin 2,000 mg phenylephrine infusion (100 mcg/mL) 1.64 mg HYDROmorphone 2 mg/mL 2 mg bupivacaine 0.5 % PF 30 mL Lactated Ringer's (LR) infusion 1,500 mL * Agents Name O2% N2O O2 N2O Air Sevoflurane Inspired Sevoflurane * Blood No blood administrations on file. Lines, Drains, and Airways Type Details Placement Removal ETT Placement Date: 10/02/19; Placement Time: 104 (created via procedure documentation); Mask Ventilation: 0; Technique: Video laryngoscopy; Type: ETT - single; Single Lumen Tube Size: 7 mm; Cuffed: Yes; Laryngoscope: Vik; Blade Size: 3; Location: Oral; Grade View: Grade IIa; Insertion Attempts: 1; Placement Verification: Auscultation, Capnometry; Airway Comment: Teeth in poor condition; Intubated without difficulty, teeth as before 10/02/19 1041 by Aisha Maharaj CRNA Peripheral IV Placement Date: 10/02/19; Placement Time: 924; Catheter Size: 18 G; Orientation: Right; Location: Hand; Site Prep: Chlorhexidine; Technique: Anatomical landmarks; Inserted by: LS; Insertion Attempts: 1; Patient Tolerance: Tolerated well; Removal Date: 10/02/19; Removal Time: 1535; Removal Reason: Per protocol 10/02/19 09 by Jeanine Peck RN 10/02/19 153 by Rosibel Leonard RN RETIRED Surgical Site 10/02/19; 1211; Shari ft; Shoulder; 05/16/24 (Retired LDA, Removed/Completed by [facility] with LDA Utility); 1213 (Retired LDA, Removed/Completed by [facility] with LDA Utility) 10/02/19 1211 by Uriel Abbasi RN 05/16/24 1213 by Discharge Provider, Automatic documented in this encounter Social History Tobacco Use Types Packs/Day Years Used Date Smoking Tobacco: Every Day Cigarettes 0.5 24 Started: 2000 Smokeless Tobacco: Never Alcohol Use Standard Drinks/Week Comments Not Currently 0 (1 standard drink = 0.6 oz pure alcohol) None for 20 days, pt reports heavy drinker from [id number] Comments No Sex and Gender Information Value Date Recorded Sex Assigned at Not on file Legal Sex Female 6:19 PM CDT Gender Identity Not on file Sexual Orientation Not on file documented as of this encounter OR Notes * Anesthesia Postprocedure Evaluation - Lauryn Mcdonald MD PhD - 10/02/2019 3:12 PM CDT Patient: Marisa Lott Procedure Summary Date: 10/02/19 Room / Location: [facility] OR POD 2 ROOM 210 / [facility] OR POD 2 Anesthesia Start: 1004 Anesthesia Stop: 1249 Procedure: OPEN REDUCTION INTERNAL FIXATION - HUMERUS (Left Arm Upper) Diagnosis: Closed fracture of proximal end of left humerus, unspecified fracture morphology, initial encounter (Left proximal humerus fracture) Surgeon: Nicolas Wolf MD Responsible Provider: Charleen Feldman MD Anesthesia Type: general ASA Status: 1 Anesthesia Type: general Last vitals BP 95/59 Pulse 85 Temp 36.4 ??C (97.5 ??F) (Temporal) Resp 21 SpO2 96% Anesthesia Post Evaluation Patient location during evaluation: PACU Patient participation: complete - patient participated Level of consciousness: fully awake Pain score: 0 Pain management: satisfactory to patient Airway patency: adequate Evidence of recall: no Anesthetic complications: no Cardiovascular status: acceptable and hemodynamically stable Respiratory status: acceptable and room air Hydration status: acceptable Pt is: normothermic Nausea/Vomiting status: none Comments: D/C to home. * Anesthesia Postprocedure Evaluation - Dominga Smart MD - 10/02/2019 2:15 PM CDT Patient: Marisa Lott Procedure Summary Date: 10/02/19 Room / Location: [facility] OR POD 2 ROOM 210 / [facility] OR POD 2 Anesthesia Start: 1004 Anesthesia Stop: 1249 Procedure: OPEN REDUCTION INTERNAL FIXATION - HUMERUS (Left Arm Upper) Diagnosis: Closed fracture of proximal end of left humerus, unspecified fracture morphology, initial encounter (Left proximal humerus fracture) Surgeon: Nicolas Wolf MD Responsible Provider: Charleen Feldman MD Anesthesia Type: general ASA Status: 1 Anesthesia Type: general Last vitals BP (!) 105/44 Pulse 89 Temp 36.4 ??C (97.5 ??F) (Temporal) Resp 14 SpO2 100% Anesthesia Post Evaluation Patient location during evaluation: PACU Patient participation: complete - patient participated Level of consciousness: arouses rehabilitation coordinator Pain score: 5 Pain management: satisfactory to patient Airway patency: adequate and patent Evidence of recall: no Anesthetic complications: no Cardiovascular status: acceptable and hemodynamically stable Respiratory status: acceptable and room air Hydration status: acceptable Pt is: normothermic Nausea/Vomiting status: resolved and none Cosigned by Lauryn Mcdonald MD PhD at 10/02/2019 3:16 PM CDT * Anesthesia Procedure Notes - Miko Cabrera MD - 10/02/2019 1:29 PM CDTAssociated Order(s): Peripheral Block Peripheral Block Patient location during procedure: PACU Reason for block: post-op pain management per surgeon request Ultrasound image in chart or stored: yes Block type: single shot Laterality: left Block type: brachial plexus - interscalene Staff: Supervising provider: Michelle Saenz MD PhD Placed by: Resident: Miko Cabrera MD Procedure prep: Preprocedure checklist: patient identified, procedure contraindications assessed, site marked, procedure consent, surgical consent, IV checked, risks, benefits and alternatives discussed, monitors and equipment checked and timeout performed Patient position: head of bed elevated Procedure performed while patient: sedate with meaningful contact Monitoring: ECG, oximetry and blood pressure Supplemental O2: nasal cannula Prep solution: chlorhexidine/alcohol PPE: provider hat/mask, sterile gloves and sterile probe cover and gel Peripheral nerve block: Technique: ultrasound guided Needle type: insulated, short-bevel and echogenic Needle gauge: 22 G Needle length: 50 mm Injection assessment: injection made incrementally with constant monitoring, local visualized surrounding nerve on ultrasound, negative aspiration for heme, no paresthesias noted, normal resistance to injection and see flowsheet for medication details Assessment: Block success: full evaluation pending Events: patient tolerated procedure well with no complications Cosigned by Michelle Saenz MD PhD at 10/02/2019 2:19 PM CDT * Anesthesia Procedure Notes - Aisha Maharaj CRNA - 10/02/2019 10:40 AM CDT Associated Order(s): Airway Airway Patient location: OR Urgency: elective Indications for airway management: anesthesia Difficult airway: no Staff: Supervising provider: Charleen Feldman MD Placed by: ROBOTIC WELDING OPERATOR: Aisha Maharaj CRNA Emergent airway documentation: Risks and benefits discussed: yes Consent obtained: yes Consent given by: patient Airway prep: Preoxygenated: yes Patient position: sniffing Mask difficulty assessment: 0 - not attempted Spontaneous ventilation during airway: absent Sedation level during airway: GA Final airway details: Final airway type: endotracheal airway Tube type: ETT ETT size: 7.0 mm Cuffed: yes Technique used for successful ETT placement: video laryngoscopy Insertion site: oral Blade type: Vik Video blade type: Schuler Blade size: 3 Cormack-Lehane (direct): grade IIa - partial view of glottis Cuff inflated with: air ETT to lips: 22 cm Placement verified by: auscultation and CO2 detection Airway secured with: silk tape Number of attempts: 1 Additional comments: Teeth in poor condition; Intubated without difficulty, teeth as before * Anesthesia Preprocedure Evaluation - Charleen Feldman MD - 09/29/2019 9:45 AM CDT Images from the original note were not included. 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 Katia index score: 100 DOS Physical Exam Medical history, medications, and allergies reviewed. Attestation: This PAT evaluation 10/02/2019. Airway Exam: Mallampati: I Cervical ROM: FROM Cardiovascular Exam: Rate: regular Rhythm: regular Pulmonary Exam: LCTA Dental Exam: Chipped, missing and loose Current state: Patient's current state is cooperative. Anesthesia Plan ASA 1 My patient is approved for the Anesthesia Controlled Medication protocol when under care of a ROBOTIC WELDING OPERATOR Planned anesthesia: General Team communication plan: oral ET tube Induction: Induction: intravenous. Postoperative Plan: Postoperative administration opioids intended. No postoperative mechanical ventilation intended. Patient's planned disposition post procedure is Floor. Informed Consent: Discussed plan with ROBOTIC WELDING OPERATOR. Anesthesia plan and risks discussed with patient. Consent and Attending signature: I and/or my designee have discussed the anesthesia plan, benefits, possible alternatives, parental presence at time of induction (if indicated), and clinically relevant risks that may include dental injury, unintentional awareness, and/or other complications. The patient and/or parent/legal guardian understand, and agree to proceed. All questions answered. documented in this encounter Plan of Treatment Not on file documented as of this encounter Procedures Procedure Name Priority Date/Time Associated Diagnosis Comments AL AN PROCEDURE PLACEHOLDER Routine 10/02/2019 1:29 PM CDT AL AN PROCEDURE PLACEHOLDER Routine 10/02/2019 10:40 AM CDT AL AN ELECTIVE ENDOTRACHEAL AIRWAY Routine 10/02/2019 10:40 AM CDT documented in this encounter Results * AL AN PROCEDURE PLACEHOLDER (10/02/2019 1:29 PM CDT) Michelle Coulter MD PhD - 10/02/2019 1:29 PM CDT Miko Cabrera MD ? 10/02/2019 ??1:30 PM Peripheral Block Patient location during procedure: PACU Reason for block: post-op pain management per surgeon request Ultrasound image in chart or stored: yes Block type: single shot Laterality: left Block type: brachial plexus - interscalene Staff: Supervising provider: Michelle Saenz MD PhD Placed by: Resident: Miko Cabrera MD Procedure prep: Preprocedure checklist: patient identified, procedure contraindications assessed, site marked, procedure consent, surgical consent, IV checked, risks, benefits and alternatives discussed, monitors and equipment checked and timeout performed Patient position: head of bed elevated Procedure performed while patient: sedate with meaningful contact Monitoring: ECG, oximetry and blood pressure Supplemental O2: nasal cannula Prep solution: chlorhexidine/alcohol PPE: provider hat/mask, sterile gloves and sterile probe cover and gel Peripheral nerve block: Technique: ultrasound guided Needle type: insulated, short-bevel and echogenic Needle gauge: 22 G Needle length: 50 mm Injection assessment: injection made incrementally with constant monitoring, local visualized surrounding nerve on ultrasound, negative aspiration for heme, no paresthesias noted, normal resistance to injection and see flowsheet for medication details Assessment: Block success: full evaluation pending Events: patient tolerated procedure well with no complications Charleen Fledman MD ANESTHESIA ORDERABLES Linda l Result * AL AN ELECTIVE ENDOTRACHEAL AIRWAY, AL AN PROCEDURE PLACEHOLDER (10/02/2019 10:40 AM CDT) Aisha Barr CRNA - 10/02/2019 10:40 AM CDT Aisha Maharaj CRNA ? 10/02/2019 10:41 AM Airway Patient location: OR Urgency: elective Indications for airway management: anesthesia Difficult airway: no Staff: Supervising provider: Charleen Feldman MD Placed by: ROBOTIC WELDING OPERATOR: Aisha Maharaj CRNA Emergent airway documentation: Risks and benefits discussed: yes Consent obtained: yes Consent given by: patient Airway prep: Preoxygenated: yes Patient position: sniffing Mask difficulty assessment: 0 - not attempted Spontaneous ventilation during airway: absent Sedation level during airway: GA Final airway details: Final airway type: endotracheal airway Tube type: ETT ETT size: 7.0 mm Cuffed: yes Technique used for successful ETT placement: video laryngoscopy Insertion site: oral Blade type: Vik Video blade type: Schuler Blade size: 3 Cormack-Lehane (direct): grade IIa - partial view of glottis Cuff inflated with: air ETT to lips: 22 cm Placement verified by: auscultation and CO2 detection Airway secured with: silk tape Number of attempts: 1 Additional comments: Teeth in poor condition; ??Intubated without difficulty, teeth as before Charleen Feldman MD ANESTHESIA ORDERABLES Linda l Result documented in this encounter Visit Diagnoses Not on filedocumented in this encounter Administered Medications Inactive Administered Medications - up to 3 most recent administrations Medication Order MAR Action Action Date Dose Rate Site bupivacaine (MARCAINE) 0.5 % (5 mg/mL) preservative free injection As needed, Starting on Wed10/02/19 at 1325, Anesthesia Intra-op Given 10/02/2019 1:25 PM CDT 30 mL ceFAZolin (ANCEF) injection intravenous, Administer over 3 Minutes, As needed, Starting on Wed10/02/19 at 1025, Anesthesia Intra-op Given 10/02/2019 10:25 AM CDT 2,000 mg fentaNYL (SUBLIMAZE) preservative free injection intravenous, As needed, Starting on Wed10/02/19 at 1004, Anesthesia Intra-op Given 10/02/2019 10:57 AM CDT 25 mcg Given 10/02/2019 10:37 AM CDT 25 mcg Given 10/02/2019 10:18 AM CDT 50 mcg glycopyrrolate (ROBINUL) injection intravenous, Administer over 1 Minutes, As needed, Starting on Wed10/02/19 at 1004, Anesthesia Intra-op Given 10/02/2019 10:04 AM CDT 0.2 mg HYDROmorphone (DILAUDID) injection Administer over 2 Minutes, As needed, Starting on Wed10/02/19 at 1107, Anesthesia Intra-op Given 10/02/2019 12:30 PM CDT 0.4 mg Given 10/02/2019 12:23 PM CDT 0.4 mg Given 10/02/2019 12:17 PM CDT 0.4 mg Lactated Ringer's (LR) infusion 30 mL/hr, intravenous, Continuous, Starting on Wed10/02/19 at 0930, Pre-Op New Bag 10/02/2019 10:54 AM CDT New Bag 10/02/2019 10:04 AM CDT lidocaine PF (XYLOCAINE) 10 mg/mL (1 %) preservative free injection As needed, Starting on Wed10/02/19 at 1018, Anesthesia Intra-op Given 10/02/2019 10:18 AM CDT 100 mg ondansetron (ZOFRAN) injection intravenous, Administer over 2 Minutes, As needed, Starting on Wed10/02/19 at 1223, Anesthesia Intra-op Given 10/02/2019 12:23 PM CDT 4 mg phenylephrine (SUNSHINE-SYNEPHRINE) 0.5 mg/5 mL (100 mcg/mL) in sodium chloride 0.9% (premix) intravenous, As needed, Starting on Wed10/02/19 at 1031, Anesthesia Intra-op Given 10/02/2019 11:39 AM CDT 100 mc g Given 10/02/2019 10:43 AM CDT 100 mcg Given 10/02/2019 10:31 AM CDT 100 mcg phenylephrine (SUNSHINE-SYNEPHRINE) 5 mg/50 mL (100 mcg/mL) in sodium chloride 0.9% (premix) Continuous PRN, Starting on Wed10/02/19 at 1053, Anesthesia Intra-op Rate/Dose Change 10/02/2019 11:12 AM CDT 0.3 mcg/kg/min 11.43 mL/hr Rate/Dose Change 10/02/2019 11:00 AM CDT 0.2 mcg/kg/min 7. 62 mL/hr New Bag 10/02/2019 10:53 AM CDT 0.4 mcg/kg/min 15.24 mL /hr propofoL (DIPRIVAN) IV intravenous, As needed, Starting on Wed10/02/19 at 1018, Anesthesia Intra-op Given 10/02/2019 10:18 AM CDT 200 mg rocuronium (ZEMURON) injection intravenous, As needed, Starting on Wed10/02/19 at 1059, Anesthesia Intra-op Given 10/02/2019 10:59 AM CDT 20 mg succinylcholine (ANECTINE) injection intravenous, As needed, Starting on Wed10/02/19 at 1018, Anesthesia Intra-op Given 10/02/2019 10:18 AM CDT 100 mg documented in this encounter Care Teams Change Number Operator Relationship Specialty Start Date End Date Thao Dove MD PCP - General 03/14/19 documented as of this encounter
--- OUTSIDE RECORDS SUMMARY | 2024-07-02 03:55 | XMS_ITS | Encounter Summary ---
Author Organization [facility] Healthcare Address [address] [place] [address] Care Team Providers Care Mortgage Branch Manager Name Role Phone Thao Dove MD Primary Care Provider Encounter Details Date Type Department Care Team (Late st Contact Info) Description 10/02/2019 7:39 AM CDT - 10/02/2019 3:51 PM CDT Hospital Encounter [facility] Operating Room [address] [place] [address] Nicolas Wolf MD [address] [facility] 6A[address]6B[address] [place] [address] Closed fracture of proximal end of left humerus, unspecified fracture morphology, initial encounter Discharge Disposition: Discharge to home or self care Social History Tobacco Use Types Packs/Day Years Used Date Smoking Tobacco: Every Day Cigarettes 0.5 24 Started: 2000 Smokeless Tobacco: Never Alcohol Use Standard Drinks/Week Comments Not Currently 0 (1 standard drink = 0.6 oz pure alcohol) None for 20 days, pt reports heavy drinker from [id number] Comments No Sex and Gender Information Value Date Recorded Sex Assigned at Not on file Legal Sex Female 6:19 PM CDT Gender Identity Not on file Sexual Orientation Not on file documented as of this encounter Last Filed Vital Signs Vital Sign Reading Time Taken Comments Blood Pressure 104/38 10/02/2019 3:10 PM CDT Pulse 85 10/02/2019 3:10 PM CDT Temperature 36.4 ??C (97.5 ??F) 10/02/2019 12:44 PM C DT Respiratory Rate 13 10/02/2019 3:10 PM CDT Oxygen Saturation 98% 10/02/2019 3:10 PM CDT Inhaled Oxygen Concentration - - Weight 63.5 kg (140 lb) 09/28/2019 4:15 PM CDT Height 160 cm (5' 3 ) 09/28/2019 4:15 PM CDT Body Mass Index 24.8 09/28/2019 4:15 PM CDT documented in this encounter Discharge Diagnoses Diagnosis Unspecified fracture of upper end of left humerus, initial encounter for closed fracture - UNSPECIFIED FRACTURE OF UPPER END OF LEFT HUMERUS, INITIAL ENCOUNTER FOR CLOSED FRACTURE Exposure to other specified factors, initial encounter - EXPOSURE TO OTHER SPECIFIED FACTORS, INITIAL ENCOUNTER Activity, unspecified - ACTIVITY, UNSPECIFIED Unspecified place or not applicable - UNSPECIFIED PLACE OR NOT APPLICABLE Unspecified external cause status - UNSPECIFIED EXTERNAL CAUSE STATUS Type 1 diabetes mellitus without complications (HCC) - TYPE 1 DIABETES MELLITUS WITHOUT COMPLICATIONS Anxiety disorder, unspecified - ANXIETY DISORDER, UNSPECIFIED Major depressive disorder, single episode, unspecified - MAJOR DEPRESSIVE DISORDER, SINGLE EPISODE, UNSPECIFIED Nicotine dependence, cigarettes, uncomplicated - NICOTINE DEPENDENCE, CIGARETTES, UNCOMPLICATED half-way (current) use of 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 * [facility] PATHWAY TO EXCELLENT CARE AFTER SURGERY documented [...] Preoperative Evaluation Record Evaluation type/location: TPAP from [facility] Planned procedure site: [facility] (Pods 2/3/5/[employer]) Date: 09/29/19 NOTE: This note represents a [...] longer on medications) Pertinent negatives: CAD ; ID ; CABG ; atrial fibrillation; arrhythmia; pacemaker/ICD; [...] 20 days, pt reports heavy drinker from [phone] Substance and Sexual Activity Drug Use Not [...] arrives at hospital for instructions and to pick out hand patient * Perioperative Nursing Note - Rosibel [...] Resident - Assisting Anesthesiologist: Charleen Feldman MD BURR FILER: Issa Rucker CRNA; Aisha Maharaj CRNA Beauty Parlor Cleaner: Reynold Nugent RN; Uriel Abbasi RN Scrub: ST Sukumar Beauty Parlor Cleaner Second: Yari Calderón RN DATE OF SURGERY : 10/02/2019 Preoperative Diagnosis: Pre-op Diagnosis * Closed fracture of proximal end of left humerus, unspecified fracture morphology, initial encounter [S42.A] Postoperative Diagnosis: Post-op Diagnosis * Closed fracture of proximal end of left humerus, unspecified fracture morphology, initial encounter [S4] Procedure(s): Procedure(s) (LRB): OPEN REDUCTION INTERNAL FIXATION - HUMERUS (Left) Operative Findings: As expected, left proximal humerus fracture Estimated Blood Loss: 300 mL Intraoperative Fluids: 1500 mls Specimens: No specimen collected in procedure Implants: Implant Name Type Inv. Item Serial No. Operations Specialists Lot No. LRB No. Used GRAFT BONE FIBULA SHAFT ALLOGRAFT FROZEN 60MMX5+ MM - [id number] - [id number] Bone GRAFT BONE FIBULA SHAFT ALLOGRAFT FROZEN 60MMX5+ MM [id number] Musculoskeletal Transplant 0 Left 1 SYNTHES 241.901 LCP COMBI PHILOS [id number] 3 HOLE SHAFT LOCK COMPRESSION - [id number] SYNTHES 241.901 Lcp Combi Philos [id number] 3 Hole Shaft Lock Compression Synthes Left 1 SYNTHES 204.828 3.5MM 6MM 28MM 2.5MM SELF TAP SMALL HEXAGONAL SOCKET LOW PROFILE - [id number] SYNTHES 204.828 3.5mm 6mm 28mm 2.5mm Self Tap Small Hexagonal Socket Low Profile Synthes Left 3 SYNTHES 212.136 3.5MM 2.9MM 46MM SELF TAP LOCK STARDRIVE CONICAL HEAD T15 FULL - [id number] 3.5mm 2.9mm 46mm Self Tap Lock Stardrive Conical Head T15 Full Synthes Left 2 SYNTHES 212.115 3.5MM 2.9MM 36MM SELF TAP LOCK STARDRIVE CONICAL HEAD T15 FULL - [id number] 3.5mm 2.9mm 36mm Self Tap Lock Stardrive Conical Head T15 Full Synthes Left 2 SYNTHES 212.116 3.5MM 2.9MM 38MM SELF TAP LOCK STARDRIVE CONICAL HEAD T15 FULL - [id number] 3.5mm 2.9mm 38mm Self Tap Lock Stardrive Conical Head T15 Full Synthes Left 1 SYNTHES 212.117 3.5MM 2.9MM 40MM SELF TAP LOCK STARDRIVE CONICAL HEAD T15 FULL - [id number] 3.5mm 2.9mm 40mm Self Tap Lock Stardrive Conical Head T15 Full Synthes Left 2 SYNTHES 212.118 3.5MM 2.9MM 42MM SELF TAP LOCK STARDRIVE CONICAL HEAD FULL THREAD - [id number] SYNTHES 212.118 3.5mm 2.9mm 42mm Self Tap Lock Stardrive Conical Head Full Thread Synthes Left 1 SYNTHES 212.113 3.5MM 2.9MM 34MM SELF TAP LOCK STARDRIVE CONICAL HEAD PELVIS T15 - [id number] SYNTHES 212.113 3.5mm 2.9mm 34mm Self Tap [...] Preoperative Assessment and Planning CPAP Clinic Location: [facility] The night before your surgery: * Do [...] Planning Perioperative Nursing Note Telephone Preoperative Evaluation ([facility]) - TELEPHONE ONLY, NO PHYSICAL EXAM Date: [...] insurance card, a photo ID (like a Gospel Singer's license) and a method of payment for [...] or department store or come by our [facility] CPAP clinic and we will give it [...] your physician. You may also contact the [facility] Dietitian, Alma Corin, @ [phone]. ?? Increase energy needs: Your body uses [...] (meat, fish, eggs, milk, hard cheese, and Nepali yogurt). Plant sources (tofu, edamame, beans, nuts [...] Boost, Muscle Milk, Orgain-plant bases, Riddle-plant bases, [place] Breakfast Essentials). ??? If your surgeon's office has not notified you of your surgery time by NOON THE DAY BEFORE your surgery, please call [phone] and ask for your surgeon's office DR [...] 1 Hour (10/02/2019 12:21 PM CDT) Narrative [facility] - 10/02/2019 12:21 PM CDT The images from this study are not interpreted by Radiology. ??Please refer to the physician's procedure / OR operative note. Nicolas Wolf MD IMG FLUOROSCOPY NV OCEDURES Final Result [facility] * POCT glucose (10/02/2019 12:12 PM CDT) Glucose, POC 110 70 - 199 mg/dL [facility] Blood specimen (specimen) 10/02/2019 12:12 PM CDT 10/02/2019 12:12 PM CDT Nicolas Wolf MD LAB POCT ORDERABLE S - DEVICE Final Result Performing Organization Address [facility] Co de Phone Number [facility] Department [place] [address] * POCT glucose (10/02/2019 10:31 AM CDT) Glucose, POC 116 70 - 199 mg/dL [facility] Blood specimen (specimen) 10/02/2019 10:31 AM CDT 10/02/2019 10:31 AM CDT Nicolas Wolf MD LAB POCT ORDERABLE S - DEVICE Final Result Performing Organization Address [facility] de Phone Number [facility] [place] [address] * (ABNORMAL) POCT hCG, urine (10/02/2019 10:10 AM CDT) HCG, ur, POC Negative Lot Number [id number] QC Backgroud Clear Acceptable QC Control Line Acceptable Urine 10/02/2019 10:1 0 AM CDT Christina Amaya FARMWORKER DAIRY POINT OF CARE TEST ORDE RABLES Final Result * Check Sample (10/02/2019 9:50 AM CDT) ABO Rh A Positive [facility] HCLL OTHER 10/02/2019 9:50 AM CDT 10/02/2019 9:54 AM CDT Nicolas Wolf MD LAB BLOOD ORDERABL ES Final Result Performing Organization Address [facility] Co de Phone Number [facility] [place] [address] * Type and screen (10/02/2019 9:25 AM CDT) Trista, indirect Negative [facility] ABO Rh A Positive [facility] Blood specimen (specimen) 10/02/2019 9:25 AM CDT 10/02/2019 9:33 AM CDT Narrative [facility] - 10/02/2019 10:28 AM CDT Has the patient had Daratumumab (Darzalex) in the past 6 months?->Unknown Christina Amaya FARMWORKER DAIRY LAB BLOOD BANK TEST ORD ERABLES Final Result [facility] Department [place] [address] * (ABNORMAL) CBC without differential (10/02/2019 8:52 AM CDT) Pathologist [facility] WBC 5.9 3.8 - 9.9 K/cumm [facility] Hgb 8.3(L) 11.9 - 15.5 g/dL [facility] Hct 27.4(L) 35.6 - 45.5 % [facility] Plt 207 150 - 400 K/cumm [facility] MPV 9.5 9.1 - 12.3 fL [facility] RBC 2.99(L) 3.90 - 5.20 M/cumm [facility] MCV 91.6 81.3 - 96.4 fL [facility] MCH 27.8 27.1 - 33.3 pg [facility] MCHC 30.3(L) 32.3 - 35.7 g/dL [facility] RDW CV 17.4(H) 11.1 - 14.9 % [facility] RDW SD 58.3(H) 35.7 - 48.1 fL [facility] NRBC abs 0.00 0.00 - 0.01 K/cumm [facility] Blood specimen (specimen) 10/02/2019 8:52 AM CDT 10/02/2019 9:37 AM CDT Christina Amaya FARMWORKER DAIRY LAB BLOOD ORDERABLES Fi nal Result Performing Organization Address [facility]/ZIP Co de Phone Number [facility] Department [place] [address] * (ABNORMAL) Basic metabolic panel (10/02/2019 8:52 AM CDT) Sodium 139 135 - 145 mmol/L [facility] Potassium, pl 3.6 3.3 - 4.9 mmol/L [facility] Chloride 103 97 - 110 mmol/L [facility] CO2 28 22 - 32 mmol/L [facility] Anion gap 8 2 - 15 mmol/L [facility] BUN 14 8 - 25 mg/dL [facility] Creatinine 0.43(L) 0.60 - 1.10 mg/dL [facility] Glucose 120 70 - 199 mg/dL [facility] Comment: Interpretive Data Fasting glucose >/= [...] 2017. Calcium 9.4 8.5 - 10.3 mg/dL [facility] Blood specimen (specimen) 10/02/2019 8:52 AM CDT 10/02/2019 9:37 AM CDT Christina Amaya FARMWORKER DAIRY LAB BLOOD ORDERABLES Fi nal Result Performing Organization Address [facility] Co de Phone Number [facility] Department [place] [address] documented in this encounter Visit Diagnoses Diagnosis [...] CDT New Bag 10/02/2019 10:04 AM CDT documented in this encounter Discontinued Medications Medication [...] injection 4 mg 1 10/01 sodium chloride 0.9 % irrigation 1 10/02/19 20 sodium chloride 0.9% flush 0.5-20 mL 1 [...] 10/02/2019 documented in this encounter Care Teams Mortgage Branch Manager Relationship Specialty Start Date End Date Thao Dove MD PCP - General 03/14/19 documented as of this encounter
--- OUTSIDE RECORDS SUMMARY | 2024-07-02 03:55 | XMS_ITS | Encounter Summary ---
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 Progressing Problem: Cognitive: Goal: Knowledge of disease or condition will improve Outcome: Progressing Goal: Knowledge of the prescribed therapeutic regimen will improve Outcome: Progressing Problem: Coping: Goal: Ability to verbalize feelings will improve Outcome: Progressing Goal: Level of anxiety will decrease Outcome: Progressing Problem: Fluid Volume: Goal: Will maintain adequate fluid volume Outcome: Progressing Problem: Health Behavior: Goal: Ability to identify changes in lifestyle to reduce recurrence of condition will improve Outcome: Progressing Problem: Nutritional: Goal: Ability to achieve adequate nutritional intake will improve Outcome: Progressing Problem: Physical Regulation: Goal: Complications related to the disease process, condition or treatment will be avoided or minimized Outcome: Progressing Goal: Hemodynamic stability will improve Outcome: Progressing Problem: Respiratory: Goal: Ability to achieve and maintain a regular respiratory rate will improve Outcome: Progressing Problem: Skin Integrity: Goal: Skin integrity will be maintained Outcome: Progressing Problem: Health Behavior: Goal: Understanding of discharge needs will improve Outcome: Progressing Goals: Clinical Goals for the Shift: Pain control Summary: * Plan of Care - Vanda Noguera RN - 10/13/2019 2:51 PM CDT CM attempted to schedule hospital follow up visit for possible DC over the weekend. CM called PCP office Dr Diaz after not being able to reach anyone. CM called 2 more times, both unsuccesful. CM added info for patient to self schedule in AVS. * Plan of Care - Azalia Funk RN - 10/13/2019 10:23 AM CDT Problem: Safety: Goal: Will remain free from falls Outcome: Progressing Problem: Safety: Goal: Will remain free from falls and injury in home environment Outcome: Progressing Problem: Sensory: Goal: Pain level will decrease Outcome: Progressing Problem: Cognitive: Goal: Knowledge of disease or condition will improve Outcome: Progressing Problem: Coping: Goal: Level of anxiety will decrease Outcome: Progressing Problem: Physical Regulation: Goal: Hemodynamic stability will improve Outcome: Progressing Problem: Skin Integrity: Goal: Skin integrity will be maintained Outcome: Progressing Goals: Clinical Goals for the Shift: pain management, monitor blood sugar Summary: * Assessment & Plan Note - Yari Jolly MD - 10/13/2019 4:42 AM CDTAssociated Problem(s): 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 Denies any recent alcohol intake. Now with lipase 1708, increased fluid collections on CTAP. Possibly triggered by cholelithiasis, though LFTs are not abnormal. -NPO, IVF, pain control -CT uploaded for radiology review -GI consult placed * Assessment & Plan Note - Yari Jolly MD - 10/13/2019 4:41 AM CDTAssociated Problem(s): Anxiety Cont lexapro, prn hydroxyzine * Assessment & Plan Note - Yari Jolly MD - 10/13/2019 4:41 AM CDTAssociated Problem(s): Diabetes (HCC) Likely secondary to chronic pancreatitis. Complicated by DKA previously. -Dose-reduced lantus to 18U qhs, lispro at 5U TIDAC, LDSSI * Assessment & Plan Note - Yari Jolly MD - 10/13/2019 4:41 AM CDTAssociated Problem(s): Humerus fracture S/p ORIF on 10/01. -on lovenox for DVT ppx. Needed ASA through 10/16. * Subjective & Objective - Yari Jolly MD - 10/13/2019 4:34 AM CDT History and Physical Division of Hospital Medicine Name: Marisa Lott Today: October 13, 2019 : 1980 Age: 39 y.o. female Subjective Ms. Lott is a 39 y.o. female with chief complaint of abdominal pain. 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 Her initial episode of pancreatitis was 12/2018, but she had subsequent episodes due to continued alcohol intake. She has previously required a drain for her peripancreatic fluid collections (last removed on 06/16/2019 with negative cultures). She presents today with one day of LUQ abdominal pain, worsened by PO intake, and associated with some nausea vomiting typical of her previous pancreatitis flares. She denies any fevers, chills, chest pain, dyspnea, changes in bowel habits. She denies any recent alcohol intake. She presented to an OSH. Labs notable for a lipase of 1708. CTAP showed chronic pancreatitis with an increase in the size of her walled-off fluid collections. She was transferred to [facility] for GI evaluation. Past Medical History: Diagnosis Date ??? Anxiety ??? Diabetes mellitus type I (CMS/HCC) ??? ETOH abuse ??? Fistula r/t [...] PERITONEAL OR RETROPERITONEAL FLUID COLLECTION N/A 03/17/2019 No current facility-administered medications on file prior to encounter. Current Outpatient Medications on File Prior to Encounter Medication Sig ??? aspirin 325 mg enteric coated tablet Take 1 tablet (325 mg total) by mouth 2 (two) times a day for 14 days For blood clot prevention. Take with food. ??? blood glucose diagnostic (Glucocard Shine Test Strips) strip Use as needed ??? escitalopram (LEXAPRO) 10 mg tablet Take 10 mg by mouth nightly ??? esomeprazole DR (NexIUM) 40 mg capsule Take 1 capsule (40 mg total) by mouth daily before breakfast To protect stomach while taking aspirin. ??? hydrOXYzine (ATARAX) 25 mg tablet Take 25 mg by mouth every 8 (eight) hours as needed for anxiety ??? insulin glargine (LANTUS) 100 unit/mL injection Inject 25 Units under the skin nightly ??? insulin lispro (HumaLOG) 100 unit/mL insulin pen Inject 1-7 Units under the skin 3 (three) times a day with meals 5 units with large meals, plus sliding scale, up to 7 units ??? lancets 17 gauge misc 1 Device 5 (five) times a day ??? OneTouch Ultra2 Meter misc USE UTD ??? pen needle, diabetic 33 gauge x 5/32 needle 1 Device 5 (five) times a day ??? [DISCONTINUED] HYDROcodone-acetaminophen (NORCO) 5-325 mg per tablet Take 1 tablet by mouth every 6 (six) hours as needed for pain No Known Allergies Social History Tobacco Use ??? Smoking status: Current Every Day Smoker Packs/day: 0.50 Types: Cigarettes Start date: 2000 ??? Smokeless tobacco: Never Used Substance Use Topics ??? Alcohol use: Not Currently Comment: None for 20 days, pt reports heavy drinker from [id number] Family History Problem Relation Age of Onset ??? Diabetes Mother ??? Hypertension Mother ??? Heart attack Mother ??? Heart failure Mother ??? Blood Clot Father ??? Stroke Paternal Grandmother Family History reviewed and non-contributory. Review of Systems All other systems were reviewed and are negative except for that which is listed in the History of Present Illness. Objective Vitals: 24hr Min/Max: Temp Min: 36.9 ??C (98.4 ??F) Max: 36.9 ??C (98.4 ??F) Pulse Min: 93 Max: 93 BP Min: 110/63 Max: 110/63 Resp Min: 18 Max: 18 SpO2 Min: 98 % Max: 98 % Most Recent Vitals: Vitals: 10/13/19 0225 BP: 110/63 Pulse: 93 Resp: 18 Temp: 36.9 ??C (98.4 ??F) SpO2: 98% No intake or output data in the 24 hours ending 10/13/19 0434 Physical Exam General: No acute distress, appears stated age, well-dressed and well-nourished HEENT: Normocephalic, atraumatic. Sclerae anicteric, conjunctivae without injection. Oropharynx normal, mucus membranes moist. Neck: Supple. Cardiac: Normal rate, regular rhythm, normal S1 and S2. No murmurs, gallops, or rubs. Pulmonary: Clear to auscultation bilaterally, no wheezes, rales, or rhonchi Abdomen: Soft, TTP epigastric region, LUQ, and LLQ, non-distended. Normoactive bowel sounds. Extremities: No cyanosis, clubbing, or edema. Skin: No suspicious lesions or rashes seen on examined skin Neurologic: Alert and oriented x4. Psychiatric: Normal affect and mood. Lab/Diagnostic Review: Recent Results (from the past 36 hour(s)) POCT glucose Collection Time: 10/13/19 2:39 AM Result Value Ref Range Glucose, POC 270 (H) 70 - 199 mg/dL I have reviewed the laboratory results. * Plan of Care - Mara Amaya RN - 10/13/2019 3:45 AM CDT Problem: Lack of Knowledge: Goal: Ability to state ways to decrease the risk of falls will improve 10/13/2019344 by Mara Amaya RN Outcome: Progressing 10/13/2019344 by Mara Amaya RN Outcome: Progressing Problem: Safety: Goal: Will remain free from falls 10/13/2019344 by Mara Amaya RN Outcome: Progressing 10/13/2019344 by Mara Amaya RN Outcome: Progressing Goal: Will remain free from injury from falls 10/13/2019344 by Mara Amaya RN Outcome: Progressing 10/13/2019344 by Mara Amaya RN Outcome: Progressing Goal: Will remain free from falls and injury in home environment 10/13/2019 034 by Mara Amaya RN Outcome: Progressing 10/13/2019344 by Mara Amaya RN Outcome: Progressing Problem: Lack of Knowledge: Goal: Ability to develop a pain control plan will improve 10/13/2019344 by Mara Amaya RN Outcome: Progressing 10/13/2019344 by Mara Amaya RN Outcome: Progressing Goal: Ability to identify pain intensity on a pain scale and rate it consistently will improve 10/13/2019344 by Mara Amaya RN Outcome: Progressing 10/13/2019344 by Mara Amaya RN Outcome: Progressing Goal: Ability to notify healthcare provider of pain before it becomes unmanageable or unbearable will improve 10/13/2019344 by Mara Amaya RN Outcome: Progressing 10/13/2019344 by Mara Amaya RN Outcome: Progressing Problem: Medication: Goal: Satisfaction with pain management regimen will improve 10/13/2019344 by Mara Amaya RN Outcome: Progressing 10/13/2019 034 by Mara Amaya RN Outcome: Progressing Problem: Sensory: Goal: Ability to identify factors that increase the pain will improve 10/13/2019344 by Mara Amaya RN Outcome: Progressing 10/13/2019344 by Mara Amaya RN Outcome: Progressing Goal: Pain level will decrease 10/13/2019344 by Mara Amaya RN Outcome: Progressing 10/13/2019 034 by Mara Amaya RN Outcome: Progressing Problem: Cognitive: Goal: Knowledge of disease or condition will improve 10/13/2019344 by Mara Amaya RN Outcome: Progressing 10/13/2019 034 by Mara Amaya RN Outcome: Progressing Goal: Knowledge of the prescribed therapeutic regimen will improve 10/13/2019344 by Mara Amaya RN Outcome: Progressing 10/13/2019344 by Mara Amaya RN Outcome: Progressing Problem: Coping: Goal: Ability to verbalize feelings will improve 10/13/2019344 by Mara Amaya RN Outcome: Progressing 10/13/2019344 by Mara Amaya RN Outcome: Progressing Goal: Level of anxiety will decrease 10/13/2019344 by Mara Amaya RN Outcome: Progressing 10/13/2019344 by Mara Amaya RN Outcome: Progressing Problem: Fluid Volume: Goal: Will maintain adequate fluid volume 10/13/2019344 by Mara Amaya RN Outcome: Progressing 10/13/2019344 by Mara Amaya RN Outcome: Progressing Problem: Health Behavior: Goal: Ability to identify changes in lifestyle to reduce recurrence of condition will improve 10/13/2019344 by Mara Amaya RN Outcome: Progressing 10/13/2019344 by Mara Amaya RN Outcome: Progressing Problem: Nutritional: Goal: Ability to achieve adequate nutritional intake will improve 10/13/2019344 by Mara Amaya RN Outcome: Progressing 10/13/2019344 by Mara Amaya RN Outcome: Progressing Problem: Physical Regulation: Goal: Complications related to the disease process, condition or treatment will be avoided or minimized 10/13/2019344 by Mara Amaya RN Outcome: Progressing 10/13/2019344 by Mara Amaya RN Outcome: Progressing Goal: Hemodynamic stability will improve 10/13/2019344 by Mara Amaya RN Outcome: Progressing 10/13/2019344 by Mara Amaya RN Outcome: Progressing Problem: Respiratory: Goal: Ability to achieve and maintain a regular respiratory rate will improve 10/13/2019344 by Mara Amaya RN Outcome: Progressing 10/13/2019344 by Mara Amaya RN Outcome: Progressing Problem: Skin Integrity: Goal: Skin integrity will be maintained 10/13/2019344 by Mara Amaya RN Outcome: Progressing 10/13/2019344 by Mara Amaya RN Outcome: Progressing Goals: Clinical Goals for the Shift: Pain control documented in this encounter Plan of Treatment Not on file documented as of this encounter Procedures Procedure Name Priority Date/Time Associated Diagnosis Comments POCT GLUCOSE DEVICE Routine 10/15/2019 1 1:55 AM CDT POCT GLUCOSE DEVICE Routine 10/15/2019 8 :33 AM CDT DIFFERENTIAL AUTO Routine 10/14/2019 10: 44 PM CDT CBC WITH AUTO DIFFERENTIAL Routine 10/14/2019 10:44 PM CDT COMPREHENSIVE METABOLIC PANEL Routine 10/14/2019 10:44 PM CDT POCT GLUCOSE DEVICE Routine 10/14/2019 8 :12 PM CDT POCT GLUCOSE DEVICE Routine 10/14/2019 4 :23 PM CDT POCT GLUCOSE DEVICE Routine 10/14/2019 1 1:48 AM CDT POCT GLUCOSE DEVICE Routine 10/14/2019 7 :48 AM CDT CALCIUM, IONIZED Routine 10/14/2019 1:38 AM CDT IRON PROFILE W/ IBC Routine 10/14/2019 1 :38 AM CDT CBC WITH AUTO DIFFERENTIAL Routine 10/14/2019 1:38 AM CDT MANUAL DIFFERENTIAL Routine 10/14/2019 1 :38 AM CDT RETICULOCYTES Routine 10/14/2019 1:38 AM CDT HEMOGLOBIN A1C Routine 10/14/2019 1:38 AM CDT FERRITIN Routine 10/14/2019 1:38 AM CDT LIPID PANEL Routine 10/14/2019 1:38 AM CDT COMPREHENSIVE METABOLIC PANEL Routine 10/14/2019 1:38 AM CDT POCT GLUCOSE DEVICE Routine 10/13/2019 9 :51 PM CDT POCT GLUCOSE DEVICE Routine 10/13/2019 5 :19 PM CDT POCT GLUCOSE DEVICE Routine 10/13/2019 1 2:14 PM CDT POCT GLUCOSE DEVICE Routine 10/13/2019 7 :[address] BODY OUTSIDE CONSULT Routine 10/13/2019 6:57 AM CDT Diagnosis unknown DIFFERENTIAL AUTO STAT 10/13/2019 5:2 2 AM CDT CBC WITH AUTO DIFFERENTIAL STAT 10/13/2019 5:22 AM CDT APTT STAT 10/13/2019 5:22 AM CDT PROTIME-INR STAT 10/13/2019 5:22 AM CDT LIPASE STAT 10/13/2019 5:22 AM CDT HEMOGLOBIN A1C STAT 10/13/2019 5:22 AM CDT LIPID PANEL STAT 10/13/2019 5:22 AM CDT COMPREHENSIVE METABOLIC PANEL STAT 10/13/2019 5:22 AM CDT POCT GLUCOSE DEVICE Routine 10/13/2019 2 :39 AM CDT documented in this encounter Results * POCT glucose (10/15/2019 11:55 AM CDT) [facility] Signature Glucose, POC 102 70 - 199 mg/dL [facility] Blood specimen (specimen) 10/15/2019 11:55 AM CDT 10/15/2019 11:55 AM CDT us Ulysses Tapia MD LAB POCT ORDERABLES - DEVIC E Final Result [facility] [address] [facility] Department [place] [address] * POCT glucose (10/15/2019 8:33 AM CDT) Glucose, POC 112 70 - 199 mg/dL [facility] Blood specimen (specimen) 10/15/2019 8:33 AM CDT 10/15/2019 8:33 AM CDT Ulysses Tapia MD LAB POCT ORDERABLES - DEVIC E Final Result [facility] [address] [facility] [address] Department [place] [address] * Differential, auto (10/14/2019 10:44 PM CDT) Pathologist [facility] Neutrophil abs 3.5 1.7 - 6.5 K/cumm [facility] Imm gran abs 0.0 0.0 - 0.1 K/cumm [facility] Lymphocyte abs 2.6 0.8 - 3.3 K/cumm [facility] Monocyte abs 0.5 0.2 - 0.8 K/cumm [facility] Eosinophil abs 0.3 0.0 - 0.5 K/cumm [facility] Basophil abs 0.0 0.0 - 0.1 K/cumm [facility] Neutrophil pct 50.8 % [facility] Comment: Interpretive Data Percent cell count reference ranges are not reported, since discordance with absolute values may lead to misinterpretation of CBC data. Current Interpretive Data was last revised on 2017. Imm gran pct 0.3 % [facility] Comment: Interpretive Data Percent cell count reference ranges are not reported, since discordance with absolute values may lead to misinterpretation of CBC data. Current Interpretive Data was last revised on 2017. Lymphocyte pct 37.8 % [facility] Comment: Interpretive Data Percent cell count reference ranges are not reported, since discordance with absolute values may lead to misinterpretation of CBC data. Current Interpretive Data was last revised on 2017. Monocyte pct 6.7 % [facility] Comment: Interpretive Data Percent cell count reference ranges are not reported, since discordance with absolute values may lead to misinterpretation of CBC data. Current Interpretive Data was last revised on 2017. Eosinophil pct 4.1 % [facility] Comment: Interpretive Data Percent cell count reference ranges are not reported, since discordance with absolute values may lead to misinterpretation of CBC data. Current Interpretive Data was last revised on 2017. Basophil pct 0.3 % [facility] Comment: Interpretive Data Percent cell count reference ranges are not reported, since discordance with absolute values may lead to misinterpretation of CBC data. Current Interpretive Data was last revised on 2017. Blood specimen (specimen) 10/14/2019 10:44 PM CDT 10/14/2019 11:27 PM CDT Ulysses Tapia MD LAB BLOOD ORDERABLES Final Result [facility] [address] Department [place] [address] * (ABNORMAL) Comprehensive metabolic panel (10/14/2019 10:44 PM CDT) Sodium 139 135 - 145 mmol/L [facility] Potassium, pl 4.1 3.3 - 4.9 mmol/L [facility] Chloride 102 97 - 110 mmol/L [facility] CO2 28 22 - 32 mmol/L [facility] Anion gap 9 2 - 15 mmol/L [facility] BUN 5(L) 8 - 25 mg/dL [facility] Creatinine 0.51(L) 0.60 - 1.10 mg/dL [facility] Glucose 130 70 - 199 mg/dL [facility] Comment: Interpretive Data Fasting glucose >/= [...] 2017. Calcium 8.8 8.5 - 10.3 mg/dL [facility] Bilirubin, total 0.3 0.1 - 1.2 mg/dL [facility] Protein, pl 7.0 6.5 - 8.5 g/dL [facility] Albumin 3.2(L) 3.5 - 5.0 g/dL [facility] Alk phos 130 40 - 130 Units/L [facility] ALT 16 7 - 45 Units/L [facility] AST 24 10 - 45 Units/L [facility] Blood specimen (specimen) 10/14/2019 10:44 PM CDT 10/14/2019 11:27 PM CDT Ulysses Tapia MD LAB BLOOD ORDERABLES Final Result [facility] [address] Department [place] [address] * (ABNORMAL) CBC with auto differential (10/14/2019 10:44 PM CDT) WBC 6.8 3.8 - 9.9 K/cumm [facility] Hgb 7.5(L) 11.9 - 15.5 g/dL [facility] Hct 25.1(L) 35.6 - 45.5 % [facility] Plt 236 150 - 400 K/cumm [facility] MPV 9.4 9.1 - 12.3 fL [facility] RBC 2.86(L) 3.90 - 5.20 M/cumm [facility] MCV 87.8 81.3 - 96.4 fL [facility] MCH 26.2(L) 27.1 - 33.3 pg [facility] MCHC 29.9(L) 32.3 - 35.7 g/dL [facility] RDW CV 17.6(H) 11.1 - 14.9 % [facility] RDW SD 56.1(H) 35.7 - 48.1 fL [facility] NRBC abs 0.00 0.00 - 0.01 K/cumm [facility] Blood specimen (specimen) 10/14/2019 10:44 PM CDT 10/14/2019 11:27 PM CDT Ulysses Tapia MD LAB BLOOD ORDERABLES Final Result Performing Organization Address [facility] Co de Phone Number [facility] [place] [address] * POCT glucose (10/14/2019 8:12 PM CDT) Glucose, POC 87 70 - 199 mg/dL [facility] Blood specimen (specimen) 10/14/2019 8:12 PM CDT 10/14/2019 8:12 PM CDT Ulysses Tapia MD LAB POCT ORDERABLES - DEVIC E Final Result Performing Organization Address [facility] de Phone Number [facility] [place] [address] * POCT glucose (10/14/2019 4:23 PM CDT) Glucose, POC 88 70 - 199 mg/dL [facility] Blood specimen (specimen) 10/14/2019 4:23 PM CDT 10/14/2019 4:23 PM CDT Ulysses Tapia MD LAB POCT ORDERABLES - DEVIC E Final Result Performing Organization Address [facility] [place] [address] * POCT glucose (10/14/2019 11:48 AM CDT) Glucose, POC 108 70 - 199 mg/dL [facility] Blood specimen (specimen) 10/14/2019 11:48 AM CDT 10/14/2019 11:48 AM CDT Ulysses Tapia MD LAB POCT ORDERABLES - DEVIC E Final Result [facility] [place] [address] * POCT glucose (10/14/2019 7:48 AM CDT) [facility] Glucose, POC 130 70 - 199 mg/dL [facility] Blood specimen (specimen) 10/14/2019 7:48 AM CDT 10/14/2019 7:48 AM CDT Susanna Vargas MD LAB POCT ORDERABLES - DEVICE Final Result Performing Organization Address [facility] Co de Phone Number [facility] [place] [address] * Manual Differential (10/14/2019 1:38 AM CDT) [facility] Differential Manual [facility] Cells Counted 111 [facility] Neutrophil abs 4.2 1.7 - 6.5 K/cumm [facility] Lymphocyte abs 1.4 0.8 - 3.3 K/cumm [facility] Monocyte abs 0.4 0.2 - 0.8 K/cumm [facility] Eosinophil abs 0.1 0.0 - 0.5 K/cumm [facility] Basophil abs 0.1 0.0 - 0.1 K/cumm [facility] Neutrophil pct 68.5 % [facility] Comment: Interpretive Data Percent cell count reference ranges are not reported, since discordance with absolute values may lead to misinterpretation of CBC data. Current Interpretive Data was last revised on 2017. Lymphocyte pct 22.5 % [facility] Comment: Interpretive Data Percent cell count reference ranges are not reported, since discordance with absolute values may lead to misinterpretation of CBC data. Current Interpretive Data was last revised on 2017. Monocyte pct 6.3 % [facility] Comment: Interpretive Data Percent cell count reference ranges are not reported, since discordance with absolute values may lead to misinterpretation of CBC data. Current Interpretive Data was last revised on 2017. Eosinophil pct 1.8 % [facility] Comment: Interpretive Data Percent cell count reference ranges are not reported, since discordance with absolute values may lead to misinterpretation of CBC data. Current Interpretive Data was last revised on 2017. Basophil pct 0.9 % [facility] Comment: Interpretive Data Percent cell count reference ranges are not reported, since discordance with absolute values may lead to misinterpretation of CBC data. Current Interpretive Data was last revised on 2017. Blood specimen (specimen) 10/14/2019 1:38 AM CDT 10/14/2019 3:01 AM CDT Ulysses Tapia MD LAB BLOOD ORDERABLES Edited Result - Final Performing Organization Address [facility] de Phone Number [facility] [employer] [place] [address] * (ABNORMAL) Hemoglobin A1c (10/14/2019 1:38 AM CDT) Hgb A1C 6.5(H) 4.0 - 5.6 % [facility] Estimated Average Glucose 140 mg/dL [facility] Comment: The ADA recommends reporting an estimated Average Glucose (eAG) with all Hemoglobin A1c results using the equation derived from a study of 507 normal and diabetic adults. ??Minority populations were underrepresented and children were not included. ?? (Diabetes Care 31:4437-9515, 2008). ??The eAG is not equivalent to a fasting glucose. Blood specimen (specimen) 10/14/2019 1:38 AM CDT 10/14/2019 2:55 AM CDT Susanna Vargas MD LAB BLOOD ORDERABLES Final Result Performing Organization Address [facility] [facility] de Phone Number [facility] [employer] [place] [address] * (ABNORMAL) Comprehensive metabolic panel (10/14/2019 1:38 AM CDT) Pathologist [facility] Sodium 138 135 - 145 mmol/L [facility] Potassium, pl 3.9 3.3 - 4.9 mmol/L [facility] Chloride 102 97 - 110 mmol/L [facility] CO2 31 22 - 32 mmol/L [facility] Anion gap 5 2 - 15 mmol/L [facility] BUN 7(L) 8 - 25 mg/dL [facility] Creatinine 0.51(L) 0.60 - 1.10 mg/dL [facility] Glucose 159 70 - 199 mg/dL [facility] Comment: Interpretive Data Fasting glucose >/= [...] 2017. Calcium 8.9 8.5 - 10.3 mg/dL [facility] Bilirubin, total 0.3 0.1 - 1.2 mg/dL [facility] Protein, pl 6.5 6.5 - 8.5 g/dL [facility] Albumin 3.0(L) 3.5 - 5.0 g/dL [facility] Alk phos 130 40 - 130 Units/L [facility] ALT 14 7 - 45 Units/L [facility] AST 16 10 - 45 Units/L [facility] Blood specimen (specimen) 10/14/2019 1:38 AM CDT 10/14/2019 2:57 AM CDT us Ulysses Tapia MD LAB BLOOD ORDERABLES Final Result [facility] [address] [facility] [place] [address] * (ABNORMAL) CBC with auto differential (10/14/2019 1:38 AM CDT) Pathologist [facility] WBC 6.2 3.8 - 9.9 K/cumm [facility] Hgb 7.1(L) 11.9 - 15.5 g/dL [facility] Hct 23.7(L) 35.6 - 45.5 % [facility] Plt 261 150 - 400 K/cumm [facility] MPV 9.4 9.1 - 12.3 fL [facility] RBC 2.66(L) 3.90 - 5.20 M/cumm [facility] MCV 89.1 81.3 - 96.4 fL [facility] MCH 26.7(L) 27.1 - 33.3 pg [facility] MCHC 30.0(L) 32.3 - 35.7 g/dL [facility] RDW CV 17.8(H) 11.1 - 14.9 % [facility] RDW SD 57.1(H) 35.7 - 48.1 fL [facility] NRBC abs 0.00 0.00 - 0.01 K/cumm [facility] Blood specimen (specimen) 10/14/2019 1:38 AM CDT 10/14/2019 2:57 AM CDT Ulysses Tapia MD LAB BLOOD ORDERABLES Edited Result - Final Performing Organization Address [facility]/State/ZIP Co de Phone Number [facility] [address] [facility] Department [place] [address] * (ABNORMAL) Reticulocyte Count (10/14/2019 1:38 AM CDT) [facility] Retics, absolute 0.109(H) 0.020 - 0.087 M/cumm [facility] Retics 4.1(H) 0.4 - 2.9 % [facility] Reticulocyte Hgb 21.3(L) 30.5 - 38.0 pg [facility] Blood specimen (specimen) 10/14/2019 1:38 AM CDT 10/14/2019 2:57 AM CDT Ulysses Tapia MD LAB BLOOD ORDERABLES Final Result Performing Organization Address City/[facility] [place] [address] * Ferritin (10/14/2019 1:38 AM CDT) Ferritin 60 15 - 150 ng/mL [facility] Blood specimen (specimen) 10/14/2019 1:38 AM CDT 10/14/2019 2:57 AM CDT Ulysses Tapia MD LAB BLOOD ORDERABLES Final Result Performing Organization Address [facility] [place] [address] * (ABNORMAL) Iron profile w/ IBC (10/14/2019 1:38 AM CDT) Iron 15(L) 35 - 145 mcg/dL [facility] TIBC 329 250 - 400 mcg/dL [facility] Transferrin saturation 5(L) 20 - 50 % [facility] Blood specimen (specimen) 10/14/2019 1:38 AM CDT 10/14/2019 2:57 AM CDT Ulysses Tapia MD LAB BLOOD ORDERABLES Final Result Performing Organization Address [facility] de Phone Number [facility] [place] [address] * (ABNORMAL) Lipid panel (10/14/2019 1:38 AM CDT) Cholesterol 142 30 - 199 mg/dL [facility] Comment: Interpretive Data Ages < or [...] Data was last revised on 2018. Triglycerides 125 <=149 mg/dL [facility] Comment: Interpretive Data Ages < or [...] Data was last revised on 2018. HDL 38(L) >=40 mg/dL [facility] Comment: Interpretive Data Ages < or = [...] was last revised on 2018. LDL, calculated 79 <=129 mg/dL [facility] Comment: Interpretive Data Ages < or = [...] was last revised on 2018. Non-HDL Cholesterol 104 mg/dL [facility] Comment: Interpretive Data Ages < or = [...] was last revised on 2018. Chol/HDL ratio 4 [facility] Blood specimen (specimen) 10/14/2019 1:38 AM CDT 10/14/2019 2:57 AM CDT us Ulysses Tapia MD LAB BLOOD ORDERABLES Final Result [facility] [address] [facility] [place] [address] * Calcium, ionized (10/14/2019 1:38 AM CDT) Calcium, Ionized 4.68 4.50 - 5.10 mg/dL [facility] Blood specimen (specimen) 10/14/2019 1:38 AM CDT 10/14/2019 2:55 AM CDT Ulysses Tapia MD LAB BLOOD ORDERABLES Final Result Performing Organization Address City/[facility] [place] [address] * POCT glucose (10/13/2019 9:51 PM CDT) Glucose, POC 146 70 - 199 mg/dL [facility] Blood specimen (specimen) 10/13/2019 9:51 PM CDT 10/13/2019 9:51 PM CDT Susanna Vargas MD LAB POCT ORDERABLES - DEVICE Final Result Performing Organization Address [facility] [place] [address] * POCT glucose (10/13/2019 5:19 PM CDT) Glucose, POC 152 70 - 199 mg/dL [facility] Blood specimen (specimen) 10/13/2019 5:19 PM CDT 10/13/2019 5:19 PM CDT Susanna Vargas MD LAB POCT ORDERABLES - DEVICE Final Result Performing Organization Address [facility] [place] [address] * POCT glucose (10/13/2019 12:14 PM CDT) Glucose, POC 157 70 - 199 mg/dL [facility] Blood specimen (specimen) 10/13/2019 12:14 PM CDT 10/13/2019 12:14 PM CDT Susanna Vargas MD LAB POCT ORDERABLES - DEVICE Final Result Performing Organization Address [facility] de Phone Number [facility] Department [place] [address] * POCT glucose (10/13/2019 7:44 AM CDT) Glucose, POC 188 70 - 199 mg/dL [facility] Blood specimen (specimen) 10/13/2019 7:44 AM CDT 10/13/2019 7:44 AM CDT Susanna Vargas MD LAB POCT ORDERABLES - DEVICE Final Result Performing Organization Address [facility] de Phone Number [facility] Department [place] [address] * CT Body Outside Consult (10/13/2019 6:57 AM CDT) Anatomical Region Laterality Modality Body N/A Computed Tomogra phy 10/13/2019 7:33 AM CDT Impressions 10/13/2019 7:33 AM CDT 1. Findings of necrotizing chronic pancreatitis with [...] images may or may not represent the three affiliated source data set and thus may contain changes that may lower the accuracy of this second-opinion interpretation. Electronically signed by: Raúl Rousseau M.D. Narrative 10/13/2019 7:33 AM CDT EXAMINATION: RADIOLOGY CONSULTATION ON OUTSIDE IMAGING STUDY STUDY INITIALLY PERFORMED: 10/12/2019 at [facility]. TYPE OF STUDY: Multiple CT [...] appears normal. Bones: No suspicious osseous lesion. Procedure Note Raúl Rousseau MD - 10/13/2019 EXAMINATION: RADIOLOGY CONSULTATION ON OUTSIDE IMAGING STUDY STUDY INITIALLY PERFORMED: 10/12/2019 at [facility]. TYPE OF STUDY: Multiple CT [...] appears normal. Bones: No suspicious osseous lesion. IMPRESSION: 1. Findings of necrotizing chronic pancreatitis with [...] images may or may not represent the three affiliated source data set and thus may contain changes that may lower the accuracy of this second-opinion interpretation. Electronically signed by: Raúl Rousseau M.D. Yari Jolly MD IMG CT PROCEDURES Final Result * Lipid panel (10/13/2019 5:22 AM CDT) [facility] Cholesterol 153 30 - 199 mg/dL [facility] Comment: Interpretive Data Ages < or = [...] Data was last revised on 2018. Triglycerides 68 <=149 mg/dL [facility] Comment: Interpretive Data Ages < or = [...] Data was last revised on 2018. HDL 47 >=40 mg/dL [facility] Comment: Interpretive Data Ages < or = [...] was last revised on 2018. LDL, calculated 92 <=129 mg/dL [facility] Comment: Interpretive Data Ages < or [...] was last revised on 2018. Non-HDL Cholesterol 106 mg/dL [facility] Comment: Interpretive Data Ages < or = [...] was last revised on 2018. Chol/HDL ratio 3 [facility] Blood specimen (specimen) 10/13/2019 5:22 AM CDT 10/13/2019 5:47 AM CDT Susanna Vargas MD LAB BLOOD ORDERABLES Final Result Performing Organization Address [facility] de Phone Number [facility] [address] [place] [address] * (ABNORMAL) Hemoglobin A1c (10/13/2019 5:22 AM CDT) Hgb A1C 6.5(H) 4.0 - 5.6 % [facility] Estimated Average Glucose 140 mg/dL [facility] Comment: The ADA recommends reporting an estimated Average Glucose (eAG) with all Hemoglobin A1c results using the equation derived from a study of 507 normal and diabetic adults. ??Minority populations were underrepresented and children were not included. ?? (Diabetes Care 31:1642-4155, 2008). ??The eAG is not equivalent to a fasting glucose. Blood specimen (specimen) 10/13/2019 5:22 AM CDT 10/13/2019 5:50 AM CDT us Susanna Vargas MD LAB BLOOD ORDERABLES Final Result Performing Organization Address [facility] de Phone Number [facility] [employer] [place] [address] * (ABNORMAL) Differential, auto (10/13/2019 5:22 AM CDT) Neutrophil abs 8.0(H) 1.7 - 6.5 K/cumm [facility] Imm gran abs 0.0 0.0 - 0.1 K/cumm [facility] Lymphocyte abs 2.2 0.8 - 3.3 K/cumm [facility] Monocyte abs 0.6 0.2 - 0.8 K/cumm [facility] Eosinophil abs 0.2 0.0 - 0.5 K/cumm [facility] Basophil abs 0.0 0.0 - 0.1 K/cumm [facility] Neutrophil pct 72.1 % [facility] Comment: Interpretive Data Percent cell count reference ranges are not reported, since discordance with absolute values may lead to misinterpretation of CBC data. Current Interpretive Data was last revised on 2017. Imm gran pct 0.3 % [facility] Comment: Interpretive Data Percent cell count reference ranges are not reported, since discordance with absolute values may lead to misinterpretation of CBC data. Current Interpretive Data was last revised on 2017. Lymphocyte pct 20.4 % [facility] Comment: Interpretive Data Percent cell count reference ranges are not reported, since discordance with absolute values may lead to misinterpretation of CBC data. Current Interpretive Data was last revised on 2017. Monocyte pct 5.5 % [facility] Comment: Interpretive Data Percent cell count reference ranges are not reported, since discordance with absolute values may lead to misinterpretation of CBC data. Current Interpretive Data was last revised on 2017. Eosinophil pct 1.5 % [facility] Comment: Interpretive Data Percent cell count reference ranges are not reported, since discordance with absolute values may lead to misinterpretation of CBC data. Current Interpretive Data was last revised on 2017. Basophil pct 0.2 % [facility] Comment: Interpretive Data Percent cell count reference ranges are not reported, since discordance with absolute values may lead to misinterpretation of CBC data. Current Interpretive Data was last revised on 2017. Blood specimen (specimen) 10/13/2019 5:22 AM CDT 10/13/2019 5:47 AM CDT Yari Jolly MD LAB BLOOD ORDERABL ES Final Result [facility] Department [place] [address] * (ABNORMAL) Lipase (10/13/2019 5:22 AM CDT) Lipase 264(H) 10 - 99 Units/L [facility] Blood specimen (specimen) 10/13/2019 5:22 AM CDT 10/13/2019 5:47 AM CDT Yari Jolly MD LAB BLOOD ORDERABL ES Final Result Performing Organization Address [facility] Co de Phone Number [facility] Department [place] [address] * (ABNORMAL) Comprehensive metabolic panel (10/13/2019 5:22 AM CDT) Sodium 136 135 - 145 mmol/L [facility] Potassium, pl 4.2 3.3 - 4.9 mmol/L [facility] Chloride 99 97 - 110 mmol/L [facility] CO2 26 22 - 32 mmol/L [facility] Anion gap 11 2 - 15 mmol/L [facility] BUN 10 8 - 25 mg/dL [facility] Creatinine 0.44(L) 0.60 - 1.10 mg/dL [facility] Glucose 222(H) 70 - 199 mg/dL [facility] Comment: Interpretive Data Fasting glucose >/= [...] interpretive data was last revised 2017. Calcium 9.2 8.5 - 10.3 mg/dL [facility] Bilirubin, total 0.4 0.1 - 1.2 mg/dL [facility] Protein, pl 7.2 6.5 - 8.5 g/dL [facility] Albumin 3.6 3.5 - 5.0 g/dL [facility] Alk phos 154(H) 40 - 130 Units/L [facility] ALT 18 7 - 45 Units/L [facility] AST 20 10 - 45 Units/L [facility] Blood specimen (specimen) 10/13/2019 5:22 AM CDT 10/13/2019 5:47 AM CDT Yari Jolly MD LAB BLOOD ORDERABL ES Final Result Performing Organization Address [facility] de Phone Number [facility] [employer] [place] [address] * Protime-INR (10/13/2019 5:22 AM CDT) PT 12.9 8.6 - 13.0 sec [facility] INR 1.2 0.8 - 1.2 [facility] Comment: Interpretive data Oral anticoagulant therapeutic ranges: Venous thromboembolism prophylaxis or treatment: 2.0-3.0 CARDIOLOGY Standard range: 2.0-3.0 High-intensity range: 2.5-3.5 Refer to indication-specific guidelines for appropriate target ranges for prosthetic heart valve replacement. Current interpretive data was last revised on 2019. Blood specimen (specimen) 10/13/2019 5:22 AM CDT 10/13/2019 5:42 AM CDT Yari Jolly MD LAB BLOOD ORDERABL ES Final Result Performing Organization Address [facility] de Phone Number [facility] [employer] [place] [address] * aPTT (10/13/2019 5:22 AM CDT) aPTT 29 25 - 37 sec [facility] Comment: Interpretive data Heparin therapeutic range: 60-90 seconds Range based on correlation with therapeutic heparin activity range of 0.3-0.7 units/ml. Current interpretive data was last revised on 2019. Blood specimen (specimen) 10/13/2019 5:22 AM CDT 10/13/2019 5:42 AM CDT Yari Jolly MD LAB BLOOD ORDERABL ES Final Result [facility] [address] [facility] Department [place] [address] * (ABNORMAL) CBC with auto differential (10/13/2019 5:22 AM CDT) [facility] WBC 11.0(H) 3.8 - 9.9 K/cumm [facility] Hgb 8.1(L) 11.9 - 15.5 g/dL [facility] Hct 26.8(L) 35.6 - 45.5 % [facility] Plt 315 150 - 400 K/cumm [facility] MPV 9.1 9.1 - 12.3 fL [facility] RBC 3.05(L) 3.90 - 5.20 M/cumm [facility] MCV 87.9 81.3 - 96.4 fL [facility] MCH 26.6(L) 27.1 - 33.3 pg [facility] MCHC 30.2(L) 32.3 - 35.7 g/dL [facility] RDW CV 17.7(H) 11.1 - 14.9 % [facility] RDW SD 56.0(H) 35.7 - 48.1 fL [facility] NRBC abs 0.00 0.00 - 0.01 K/cumm [facility] Blood specimen (specimen) 10/13/2019 5:22 AM CDT 10/13/2019 5:47 AM CDT Yari Jolly MD LAB BLOOD ORDERABL ES Final Result [facility] Department [place] [address] * (ABNORMAL) POCT glucose (10/13/2019 2:39 AM CDT) Glucose, POC 270(H) 70 - 199 mg/dL [facility] Blood specimen (specimen) 10/13/2019 2:39 AM CDT 10/13/2019 2:39 AM CDT us Jose Santillan MD LAB POCT ORDERABLES - D EVICE Final Result Performing Organization Address [facility] Co de Phone Number [facility] [place] [employer] [place] [address] documented in this encounter Visit Diagnoses Diagnosis Diagnosis unknown Necrotizing pancreatitis Acute pancreatitis Humerus fracture Closed fracture of unspecified part of humerus Diabetes (HCC) Type II or unspecified type diabetes mellitus without mention of complication, not stated as uncontrolled Anxiety Anxiety state, unspecified documented in this encounter Administered Medications Inactive Administered Medications - up to 3 most recent administrations Medication Order MAR Action Action Date Dose Rate Site acetaminophen (TYLENOL) tablet 1,000 mg 1,000 mg, oral, Every 6 hours PRN, 1st line for pain, Starting on Wed10/13/19 at 1051 Given 10/15/2019 11:06 AM CDT 1,000 mg Given 10/15/2019 4:37 AM CDT 1,000 mg Given 10/14/2019 10:36 PM CDT 1,000 mg buPROPion (WELLBUTRIN) tablet 150 mg 150 mg, oral, 2 times daily, First dose on Wed10/13/19 at 1145 Given 10/15/2019 8:59 AM CDT 150 mg Given 10/14/2019 9:27 PM CDT 150 mg Given 10/14/2019 8:31 AM CDT 150 mg dextrose (D10W) 10% bolus 250 mL 250 mL, intravenous, at 1,000 mL/hr, Administer over 15 Minutes, Every 15 min PRN, blood glucose less than 70 mg/dL and UNABLE to swallow/take PO glucose/juice., Starting on Wed10/13/19 at 0423, After treatment for hypoglycemia, recheck BG followed [...] glucose less than 70 mg/dL, Starting on Wed10/13/19 at 0423, If patient is alert and able to [...] Call MD for each episode of hypoglycemia. [employer] STATES GLUTOSE-15 CONTAINS GLUCOSE 40% W/W (50% W/V), Indications: hypoglycemic disorderIndications:hypoglycemi c disorder enoxaparin (LOVENOX) syringe 40 mg 40 mg, subcutaneous, Daily (for enoxaparin), First dose on Wed10/13/19 at 2100, Indications: Deep Vein Thrombosis PreventionIndications:Deep Vein Thrombosis Prevention Given 10/14/2019 9:30 PM CDT 40 mg Left Lower Abdomen escitalopram (LEXAPRO) tablet 10 mg 10 mg, oral, Nightly, First dose on Wed10/13/19 at 2100, Indications: Anxiety with DepressionIndications:Anxiety with Depression Given 10/14/2019 9:26 PM CDT 10 mg Given 10/13/2019 9:27 PM CDT 10 mg folic acid (FOLVITE) tablet 1 mg 1 mg, oral, Daily, First dose on Wed10/13/19 at 1215, For 5 days, Indications: Folate DeficiencyIndications:Folate Deficiency Given 10/15/2019 8:59 AM CDT 1 mg Given 10/14/2019 8:32 AM CDT 1 mg Given 10/13/2019 12:08 PM CDT 1 mg HYDROmorphone (DILAUDID) injection 1 mg 1 mg, intravenous, Administer over 2 Minutes, Every 4 hours PRN, 1st line for pain, Starting on Wed10/13/19 at 0427 Given 10/13/2019 9:09 AM CDT 1 mg Given 10/13/2019 5:16 AM CDT 1 mg HYDROmorphone (DILAUDID) injection 1 mg 1 mg, intravenous, Administer over 2 Minutes, Every 4 hours PRN, 2nd line for pain, Starting on Wed10/13/19 at 1051 Given 10/14/2019 5:28 AM CDT 1 mg Given 10/14/2019 1:26 AM CDT 1 mg Given 10/13/2019 9:27 PM CDT 1 mg hydrOXYzine (ATARAX) tablet 25 mg 25 mg, oral, Every 8 hours PRN, anxiety, Starting on Wed10/13/19 at 0421 Given 10/15/2019 1:58 PM CDT 25 mg Given 10/14/2019 9:27 PM CDT 25 mg Given 10/13/2019 9:49 PM CDT 25 mg insulin glargine (LANTUS) injection 18 Units 18 Units, subcutaneous, Nightly, First dose on Wed10/13/19 at 2100, Do not mix with other insulins, Indications: Diabetes MellitusIndications:Diabetes Mellitus Given 10/14/2019 9:26 PM CDT 18 Units Left Lower Abdomen Given 10/13/2019 9:51 PM CDT 18 Units Ri ght Upper Arm insulin lispro (HumaLOG) injection 1-2 Units 1-2 Units, subcutaneous, Nightly, First dose on Wed10/13/19 at 2100, Blood Sugar Low Dose PM - PO patients 200 or less No Insulin 201 - 250 1 unit 251 - 299 2 units Greater than 299 Call MD for hyperglycemia management instructions Do NOT hold for NPO status., Indications: Diabetes MellitusIndications:Diabetes Mellitus insulin lispro (HumaLOG) injection 1-3 Units 1-3 Units, subcutaneous, 3 times daily with meals, First dose on Wed10/13/19 at 0800, Blood Sugar Low Dose meal time - PO patients 175 or less No Insulin 176 - 200 1 unit 201 - 250 2 units 251 - 299 3 units Greater than 299 Call MD for hyperglycemia management instructions Do NOT hold for NPO status., Indications: Diabetes MellitusIndications:Diabetes Mellitus Given 10/13/2019 8:10 AM CDT 1 Units Right Upper Arm insulin lispro (HumaLOG) injection 5 Units 5 Units, subcutaneous, 3 times daily with meals, First dose on Wed10/13/19 at 0800, If BG 100 mg/dl or [...] insulin dose., Indications: Diabetes MellitusIndications:Diabetes Mellitus Given 10/15/2019 12:20 PM CDT 5 Units Right Upper Arm Given 10/15/2019 8:57 AM CDT 5 Units Le ft Upper Abdomen Given 10/14/2019 5:26 PM CDT 5 Units Ri ght Upper Arm iron dextran complex (INFED) 25 mg in sodium chloride 0.9% 50 mL IVPB 25 mg, intravenous, at 202 mL/hr, Administer over 15 Minutes, Once, On Wed10/15/19 at 0800, For 1 dose, Proceed to remainder of dose if no reaction to test dose after 10 minutes., Indications: Iron Deficiency AnemiaIndications:Iron Deficiency Anemia 10/15/2019 10:26 AM CDT 25 mg 202 mL/hr iron dextran complex (INFED) 975 mg in sodium chloride 0.9% 250 mL IVPB 975 mg, intravenous, at 359.3 mL/hr, Administer over 45 Minutes, Once, On Wed10/15/19 at 0800, For 1 dose, Indications: Iron Deficiency AnemiaIndications:Iron Deficiency Anemia New 10/15/2019 12:40 PM CDT 975 mg 359.3 mL/hr Lactated Ringer's (LR) infusion 125 mL/hr, intravenous, Continuous, Starting on Wed10/13/19 at 0500 10/14/2019 11:04 PM CDT 125 mL/hr 125 mL/hr 10/14/2019 1:01 PM CDT 125 mL/hr 125 mL/hr 10/14/2019 5:40 AM CDT 125 mL/hr 125 mL/hr LORazepam (ATIVAN) injection 1 mg 1 mg, intravenous, Every 1 hour PRN, other, Score between 13 and 18 on Alcohol Withdrawl Assessment, Starting on Wed10/13/19 at 1140, For 6 days, HOLD for any status indicating over sedation including the following: drifts off to sleep during conversation, minimal or no response to verbal or physical stimulation, or respiratory rate of less than 10 breaths per minute. For IV administration, dilute with equal volume of 0.9% sodium chloride. Do not exceed a rate of 2 mg/minute, Indications: Alcohol Withdrawal SyndromeIndications:Alcohol Withdrawal Syndrome LORazepam (ATIVAN) injection 1 mg 1 mg, intramuscular, Every 1 hour PRN, other, Score between 13 and 18 on Alcohol Withdrawl Assessment, Starting on Wed10/13/19 at 1140, For 6 days, Administer IM if unable to provide IV Push. HOLD for any status indicating over sedation including the following: drifts off to sleep during conversation, minimal or no response to verbal or physical stimulation, or respiratory rate less than10 breaths per minute. For IV administration, dilute with equal volume of 0.9% sodium chloride. Do not exceed a rate of 2 mg/minute, Indications: Alcohol Withdrawal SyndromeIndications:Alcohol Withdrawal Syndrome LORazepam (ATIVAN) injection 2 mg 2 mg, intravenous, Every 1 hour PRN, other, Score greater than 18 on Alcohol Withdrawl Assessmen, Starting on Wed10/13/19 at 1140, For 6 days, HOLD for any status indicating over sedation including the following: drifts off to sleep during conversation, minimal or no response to verbal or physical stimulation, or respiratory rate less than 10 breaths per minute. For IV administration, dilute with equal volume of 0.9% sodium chloride. Do not exceed a rate of 2 mg/minute, Indications: Alcohol Withdrawal SyndromeIndications:Alcohol Withdrawal Syndrome LORazepam (ATIVAN) injection 2 mg 2 mg, intramuscular, Every 1 hour PRN, other, Score greater than 18 on Alcohol Withdrawl Assessment, Starting on Wed10/13/19 at 1140, For 6 days, Administer IM if unable to provide IV Push.HOLD for any status indicating over sedation including the following: drifts off to sleep during conversation, minimal or no response to verbal or physical stimulation, or respiratory rate less than 10 breaths per minute. For IV administration, dilute with equal volume of 0.9% sodium chloride. Do not exceed a rate of 2 mg/minute, Indications: Alcohol Withdrawal SyndromeIndications:Alcohol Withdrawal Syndrome LORazepam (ATIVAN) tablet 1 mg 1 mg, oral, Every 4 hours PRN, other, Score between 3 and 5 on Alcohol Withdrawl Assessment, Starting on Wed10/13/19 at 1140, For 6 days, HOLD for any status indicating over sedation including the following: drifts off to sleep during conversation, minimal or no response to verbal or physical stimulation, or respiratory rate less than 10 breaths per minute., Indications: Alcohol Withdrawal SyndromeIndications:Alcohol Withdrawal Syndrome LORazepam (ATIVAN) tablet 1 mg 1 mg, oral, Every 2 hours PRN, other, Score between 6 and 12 on Alcohol Withdrawl Assessment, Starting on Wed10/13/19 at 1140, For 6 days, HOLD for any status indicating over sedation including the following: drifts off to sleep during conversation, minimal or no response to verbal or physical stimulation, or respiratory rate less than 10 breaths per minute., Indications: Alcohol Withdrawal SyndromeIndications:Alcohol Withdrawal Syndrome multivit cyvpvvkh-rtrh-GK-calcium (THERA-M) tablet 1 tablet 1 tablet, oral, Daily, First dose on Wed10/13/19 at 1215, Indications: Vitamin Deficiency PreventionIndications:Vitamin Deficiency Prevention Given 10/15/2019 8:59 AM CDT 1 tablet Given 10/14/2019 8:32 AM CDT 1 tablet Given 10/13/2019 12:08 PM CDT 1 tablet nicotine (NICODERM CQ) 21 mg patch 24 hour 1 patch 1 patch, transdermal, Administer over 24 Hours, Daily, First dose on Wed10/13/19 at 1145 Medication Applied 10/15/2019 8:59 AM CDT 1 patch Right Shoulder Medication Applied 10/14/2019 8:33 AM CDT 1 patch Right Arm Medication Applied 10/13/2019 12:07 PM CDT 1 patch Left Arm ondansetron (ZOFRAN) injection 4 mg 4 mg, intravenous, Administer over 2 Minutes, Every 6 hours PRN, nausea, vomiting, if not tolerating PO, Starting on Wed10/13/19 at 0423, Indications: Nausea and VomitingIndications:Nausea and Vomiting ondansetron ODT (ZOFRAN-ODT) disintegrating tablet 4 mg 4 mg, oral, Every 6 hours PRN, nausea, vomiting, Starting on Wed10/13/19 at 0423, Indications: Nausea and VomitingIndications:Nausea and Vomiting oxyCODONE (ROXICODONE) tablet 5 mg 5 mg, oral, Every 4 hours PRN, 2nd line for pain, Starting on Wed10/14/19 at 0815, Indications: PainIndications:Pain Given 10/15/2019 3:52 PM CDT 5 mg Given 10/15/2019 11:06 AM CDT 5 mg Given 10/15/2019 6:07 AM CDT [address] (PROTONIX) extended release tablet 40 mg 40 mg, oral, Daily, First dose on Wed10/13/19 at 0900, Do not crush, chew, cut, dissolve, open or otherwise manipulate tablet/capsule., Indications: Treatment of Non-Bleeding Gastric DisorderIndications:Treatment of Non-Bleeding Gastric Disorder Given 10/15/2019 8:59 AM CDT 40 mg Given 10/14/2019 8:33 AM CDT 40 mg Given 10/13/2019 8:11 AM CDT 40 mg polyethylene glycol (MIRALAX) packet 17 g 17 g, oral, 3 times daily, First dose on Wed10/15/19 at 0900, Hold for diarrhea, Indications: constipationIndications:constipation Given 10/15/2019 8:59 AM CDT 17 g pregabalin (LYRICA) capsule 150 mg 150 mg, oral, 2 times daily, First dose (after last modification) on Wed10/15/19 at 0900 Given 10/15/2019 8:59 AM CDT 150 mg pregabalin (LYRICA) capsule 75 mg 75 mg, oral, 2 times daily, First dose on Wed10/13/19 at 1130 Given 10/14/2019 9:27 PM CDT 75 mg Given 10/14/2019 8:33 AM CDT 75 mg Given 10/13/2019 9:27 PM CDT 75 mg sodium chloride 0.9% flush 0.5-20 mL 0.5-20 mL, intra-catheter, Every 8 hours scheduled, First dose on Wed10/13/19 at 0600, Flush volume based on line type and size. , Indications: FlushingIndications:Flushing Given 10/15/2019 1:58 PM CDT 10 mL Given 10/13/2019 9:28 PM CDT 10 mL Given 10/13/2019 12:09 PM CDT 10 mL thiamine (VITAMIN B1) tablet 100 mg 100 mg, oral, Daily, First dose on Wed10/13/19 at 1215, For 5 days, Indications: Thiamine DeficiencyIndications:Thiamine Deficiency Given 10/15/2019 8:59 AM CDT 10 0 mg Given 10/14/2019 8:31 AM CDT 100 mg Given 10/13/2019 12:08 PM CDT 100 mg documented in this encounter Discontinued Medications Medication Sig Discontinue Reason Start Date End Da te HYDROcodone-acetaminophe n (NORCO) 5-325 mg per tabletIndications:Pain Take 1 tablet by mouth every 6 (six) hours as needed for pain 10/06/2019 10/13/2019 documented as of this encounter Active and Recently Administered Medications Times are shown in CDT. Scheduled Medication Order 10/13/2019 10/14/2019 10/15/2019 buPROPion (WELLBUTRIN) tablet 150 mg 150 mg, oral, 2 times daily, First dose on Wed10/13/19 at 1145 1308 (Given - Provider: Azalia Funk RN)2126 (Given - Provider: Mara Amaya RN) 0831 (Given - Provider: Carmen Kiser, SINA)2126 (Given - Provider: Megan Figueroa, SINA) 0859 (Given - Provider: Germaine Carter RN) enoxaparin (LOVENOX) syringe 40 mg 40 mg, subcutaneous, Daily (for enoxaparin), First dose on Wed10/13/19 at 2100, Indications: Deep Vein Thrombosis Prevention 2131 (Not Given - Provider: Mara Amaya RN - Reason: Patient/family refused) 2129 (Given - Provider: Megan Figueroa, SINA) escitalopram (LEXAPRO) tablet 10 mg 10 mg, oral, Nightly, First dose on Wed10/13/19 at 2100, Indications: Anxiety with Depression 2126 (Given - Provider: Mara Amaya RN) 2125 (Given - Provider: Megan Figueroa, SINA) folic acid (FOLVITE) tablet 1 mg 1 mg, oral, Daily, First dose on Wed10/13/19 at 1215, For 5 days, Indications: Folate Deficiency 1208 (Given - Provider: Azalia Funk RN) 0832 (Given - Provider: Carmen Kiser, SINA) 0859 (Given - Provider: Germaine Carter, SINA) insulin glargine (LANTUS) injection 18 Units 18 Units, subcutaneous, Nightly, First dose on Wed10/13/19 at 2100, Do not mix with other insulins, Indications: Diabetes Mellitus 2150 (Given - Provider: Mara Amaya RN) 2125 (Given - Provider: Megan Figueroa RN) insulin lispro (HumaLOG) injection 1-2 Units 1-2 Units, subcutaneous, Nightly, First dose on Wed10/13/19 at 2100, Blood Sugar Low Dose PM - PO patients 200 or less No Insulin 201 - 250 1 unit 251 - 299 2 units Greater than 299 Call MD for hyperglycemia management instructions Do NOT hold for NPO status., Indications: Diabetes Mellitus 2150 (Not Given - Provider: Mara Amaya RN - Reason: Order parameters not met) 2012 (Not Given - Provider: Megan Figueroa RN - Reason: Order parameters not met) insulin lispro (HumaLOG) injection 1-3 Units 1-3 Units, subcutaneous, 3 times daily with meals, First dose on Wed10/13/19 at 0800, Blood Sugar Low Dose meal time - PO patients 175 or less No Insulin 176 - 200 1 unit 201 - 250 2 units 251 - 299 3 units Greater than 299 Call MD for hyperglycemia management instructions Do NOT hold for NPO status., Indications: Diabetes Mellitus 0810 (Given - Provider: Azalia Funk RN)1214 (Not Given - Provider: Azalia Funk RN - Reason: Order parameters not met)1724 (Not Given - Provider: Azalia Funk RN - Reason: Order parameters not met) 0748 (Not Given - Provider: Mara Amaya RN - Reason: Order parameters not met)1239 (Not Given - Provider: Carmen Kiser RN - Reason: Order parameters not met - Comment: [phone] (Not Given - Provider: Hnaane Gloria RN - Reason: Order parameters not met - Comment: 88) 0901 (Not Given - Provider: Germaine Carter RN - Reason: Order parameters not met)1201 (Not Given - Provider: Germaine Carter RN - Reason: Order parameters not met) insulin lispro (HumaLOG) injection 5 Units 5 Units, subcutaneous, 3 times daily with meals, First dose on Wed10/13/19 at 0800, If BG 100 mg/dl or [...] in patient's insulin dose., Indications: Diabetes Mellitus 0811 (Not Given - Provider: Azalia Funk RN - Reason: NPO)1215 (Not Given - Provider: Azalia Funk RN - Reason: NPO)1724 (Not Given - Provider: Azalia Funk RN - Reason: NPO) 0834 (Given - Provider: Carmen Kiser RN)1301 (Given - Provider: Carmen Kiser RN)1726 (Given - Provider: Hanane Gloria RN) 0857 (Given - Provider: Germaine Carter RN)1220 (Given - Provider: Germaine Carter RN) iron dextran complex (INFED) 25 mg in sodium chloride 0.9% 50 mL IVPB (COMPLETED) 25 mg, intravenous, at 202 mL/hr, Administer over 15 Minutes, Once, On Wed10/15/19 at 0800, For 1 dose, Proceed to remainder of dose if no reaction to test dose after 10 minutes., Indications: Iron Deficiency Anemia 1026 (New Bag - Provider: Germaine Carter RN) iron dextran complex (INFED) 975 mg in sodium chloride 0.9% 250 mL IVPB (COMPLETED) 975 mg, intravenous, at 359.3 mL/hr, Administer over 45 Minutes, Once, On Wed10/15/19 at 0800, For 1 dose, Indications: Iron Deficiency Anemia 1240 (New Bag - Provider: Germaine Carter RN) multivit nadxypew-lrbk-GY-calciu m (THERA-M) tablet 1 tablet 1 tablet, oral, Daily, First dose on Wed10/13/19 at 1215, Indications: Vitamin Deficiency Prevention 1208 (Given - Provider: Azalia Funk RN) 0832 (Given - Provider: Carmen Kiser RN) 0859 (Given - Provider: Germaine Carter RN) nicotine (NICODERM CQ) 21 mg patch 24 hour 1 patch 1 patch, transdermal, Administer over 24 Hours, Daily, First dose on Wed10/13/19 at 1145 1207 (Medication Applied - Provider: Azalia Funk RN) 0830 (Medication Removed - Provider: Carmen Kiser RN)0833 (Medication Applied - Provider: Carmen Kiser RN)0837 (Not Given - Provider: Carmen Kiser RN - Reason: Other - Comment: medication applied at 0830) 0859 (Medication Applied - Provider: Germaine Carter RN)1600 (Due: Medication Removed - Provider: Automatic Discharge Provider - Comment: Time automatically adjusted from order being discontinued) pantoprazole DR (PROTONIX) extended release tablet 40 mg 40 mg, oral, Daily, First dose on Wed10/13/19 at 0900, Do not crush, chew, cut, dissolve, open or otherwise manipulate tablet/capsule., Indications: Treatment of Non-Bleeding Gastric Disorder 0811 (Given - Provider: Azalia Funk RN) 0833 (Given - Provider: Carmen Kiser RN) 0859 (Given - Provider: Germaine Carter RN) polyethylene glycol (MIRALAX) packet 17 g 17 g, oral, 3 times daily, First dose on Wed10/15/19 at 0900, Hold for diarrhea, Indications: constipation 0859 (Given - Provider: Germaine Carter RN)1600 (Due) pregabalin (LYRICA) capsule 150 mg 150 mg, oral, 2 times daily, First dose (after last modification) on Wed10/15/19 at 0900 0859 (Given - Provider: Germaine Carter, SINA) pregabalin (LYRICA) capsule 75 mg (CANCELED) 75 mg, oral, 2 times daily, First dose on Wed10/13/19 at 1130 1208 (Given - Provider: Azalia Funk RN)2127 (Given - Provider: Mara Amaya RN) 0833 (Given - Provider: Carmen Kiser RN)212 (Given - Provider: Megan Figueroa RN) sodium chloride 0.9% flush 0.5-20 mL 0.5-20 mL, intra-catheter, Every 8 hours scheduled, First dose on Wed10/13/19 at 0600, Flush volume based on line type and size. , Indications: Flushing 0516 (Given - Provider: Mara Amaya RN)1209 (Given - Provider: Azalia Funk RN)2128 (Given - Provider: Mara Amaya RN) 0524 (Not Given - Provider: Mara Amaya RN - Reason: IV Infusing)1301 (Not Given - Provider: Carmen Kiser RN - Reason: IV Infusing)2128 (Not Given - Provider: Megan Figueroa RN - Reason: IV Infusing) 0608 (Not Given - Provider: Megan Figueroa RN - Reason: IV Infusing)1358 (Given - Provider: Germaine Carter, SINA) thiamine (VITAMIN B1) tablet 100 mg 100 mg, oral, Daily, First dose on Wed10/13/19 at 1215, For 5 days, Indications: Thiamine Deficiency 1208 (Given - Provider: Azalia Funk, SINA) 0831 (Given - Provider: Carmen Kiser, SINA) 0859 (Given - Provider: Germaine Carter, SINA) Continuous Medication Order 10/13/2019 10/14/2019 10/15/2019 Lactated Ringer's (LR) infusion (CANCELED) 125 mL/hr, intravenous, Continuous, Starting on Wed10/13/19 at 0500 0522 (New Bag - Provider: Mara Amaya RN)1314 (New Bag - Provider: Azalia Funk, SINA)2149 (New Bag - Provider: Mara Amaya, SINA) 0540 (New Bag - Provider: Mara Amaya, SINA)1301 (New Bag - Provider: Carmen Kiser, SINA)2304 (New Bag - Provider: Megan Figueroa, SINA) PRN Medication Order 10/13/2019 10/14/2019 10/15/2019 acetaminophen (TYLENOL) tablet 1,000 mg 1,000 mg, oral, Every 6 hours PRN, 1st line for pain, Starting on Wed10/13/19 at 1051 1208 (Given - Provider: Azalia Funk RN)1853 (Given - Provider: Azalia Funk RN) 0125 (Given - Provider: Mara Amaya RN)0746 (Given - Provider: Mara Amaya RN)1624 (Given - Provider: Carmen Kiser, SINA)2236 (Given - Provider: Megan Figueroa, SINA) 0437 (Given - Provider: Megan Figueroa, SINA)1106 (Given - Provider: Germaine Carter RN) dextrose (D10W) 10% bolus 250 mL(Linked Group 1) 250 mL, intravenous, at 1,000 mL/hr, Administer over 15 Minutes, Every 15 min PRN, blood glucose less than 70 mg/dL and UNABLE to swallow/take PO glucose/juice., Starting on Wed10/13/19 at 0423, After treatment for hypoglycemia, recheck BG followed by treatment every 15 minutes until the BG is greater than 100 mg/dL. Then check BG 1 hour post treatment. If BG is less than 100 mg/dL, repeat Q15 minute BG checks and treatment. Call MD for each episode of hypoglycemia., Indications: hypoglycemic disorder dextrose (GLUTOSE) 40 % gel 15 g(Linked Group 1) 15 g, oral, Every 15 min PRN, low blood sugar, blood glucose less than 70 mg/dL, Starting on Wed10/13/19 at 0423, If patient is alert and able to [...] Call MD for each episode of hypoglycemia. [employer] STATES GLUTOSE-15 CONTAINS GLUCOSE 40% W/W (50% W/V), Indications: hypoglycemic disorder glucagon injection 1 mg 1 mg, intramuscular, Administer over 1 Minutes, Every 30 min PRN, low blood sugar, blood glucose less than 70 mg/dL AND no IV access AND unable to take PO glucose/jiuce., Starting on Wed10/13/19 at 0423, After Glucagon is administered, position patient on [...] for each episode of hypoglycemia., Indications: Hypoglycemia HYDROmorphone (DILAUDID) injection 1 mg (CANCELED) 1 mg, intravenous, Administer over 2 Minutes, Every 4 hours PRN, 1st line for pain, Starting on Wed10/13/19 at 0427 0516 (Given - Provider: Mara Amaya RN)0909 (Given - Provider: Azalia Funk RN) HYDROmorphone (DILAUDID) injection 1 mg (CANCELED) 1 mg, intravenous, Administer over 2 Minutes, Every 4 hours PRN, 2nd line for pain, Starting on Wed10/13/19 at 1051 1308 (Given - Provider: Azalia Funk RN)1720 (Given - Provider: Azalia Funk RN)2127 (Given - Provider: Mara Amaya RN) 0126 (Given - Provider: Mara Amaya RN)0528 (Given - Provider: Mara Amaya RN) hydrOXYzine (ATARAX) tablet 25 mg 25 mg, oral, Every 8 hours PRN, anxiety, Starting on Wed10/13/19 at 0421 2149 (Given - Provider: Mara Amaya RN) 212 (Given - Provider: Megan Figueroa RN) 3218 (Given - Provider: Germaine Carter RN) LORazepam (ATIVAN) injection 1 mg(Linked Group 2) 1 mg, intravenous, Every 1 hour PRN, other, Score between 13 and 18 on Alcohol Withdrawl Assessment, Starting on Wed10/13/19 at 1140, For 6 days, HOLD for any status indicating over sedation including the following: drifts off to sleep during conversation, minimal or no response to verbal or physical stimulation, or respiratory rate of less than 10 breaths per minute. For IV administration, dilute with equal volume of 0.9% sodium chloride. Do not exceed a rate of 2 mg/minute, Indications: Alcohol Withdrawal Syndrome LORazepam (ATIVAN) injection 1 mg(Linked Group 2) 1 mg, intramuscular, Every 1 hour PRN, other, Score between 13 and 18 on Alcohol Withdrawl Assessment, Starting on Wed10/13/19 at 1140, For 6 days, Administer IM if unable to provide IV Push. HOLD for any status indicating over sedation including the following: drifts off to sleep during conversation, minimal or no response to verbal or physical stimulation, or respiratory rate less than10 breaths per minute. For IV administration, dilute with equal volume of 0.9% sodium chloride. Do not exceed a rate of 2 mg/minute, Indications: Alcohol Withdrawal Syndrome LORazepam (ATIVAN) injection 2 mg(Linked Group 2) 2 mg, intravenous, Every 1 hour PRN, other, Score greater than 18 on Alcohol Withdrawl Assessmen, Starting on Wed10/13/19 at 1140, For 6 days, HOLD for any status indicating over sedation including the following: drifts off to sleep during conversation, minimal or no response to verbal or physical stimulation, or respiratory rate less than 10 breaths per minute. For IV administration, dilute with equal volume of 0.9% sodium chloride. Do not exceed a rate of 2 mg/minute, Indications: Alcohol Withdrawal Syndrome LORazepam (ATIVAN) injection 2 mg(Linked Group 2) 2 mg, intramuscular, Every 1 hour PRN, other, Score greater than 18 on Alcohol Withdrawl Assessment, Starting on Wed10/13/19 at 1140, For 6 days, Administer IM if unable to provide IV Push.HOLD for any status indicating over sedation including the following: drifts off to sleep during conversation, minimal or no response to verbal or physical stimulation, or respiratory rate less than 10 breaths per minute. For IV administration, dilute with equal volume of 0.9% sodium chloride. Do not exceed a rate of 2 mg/minute, Indications: Alcohol Withdrawal Syndrome LORazepam (ATIVAN) tablet 1 mg(Linked Group 2) 1 mg, oral, Every 4 hours PRN, other, Score between 3 and 5 on Alcohol Withdrawl Assessment, Starting on Wed10/13/19 at 1140, For 6 days, HOLD for any status indicating over sedation including the following: drifts off to sleep during conversation, minimal or no response to verbal or physical stimulation, or respiratory rate less than 10 breaths per minute., Indications: Alcohol Withdrawal Syndrome LORazepam (ATIVAN) tablet 1 mg(Linked Group 2) 1 mg, oral, Every 2 hours PRN, other, Score between 6 and 12 on Alcohol Withdrawl Assessment, Starting on Wed10/13/19 at 1140, For 6 days, HOLD for any status indicating over sedation including the following: drifts off to sleep during conversation, minimal or no response to verbal or physical stimulation, or respiratory rate less than 10 breaths per minute., Indications: Alcohol Withdrawal Syndrome ondansetron (ZOFRAN) injection 4 mg(Linked Group 3) 4 mg, intravenous, Administer over 2 Minutes, Every 6 hours PRN, nausea, vomiting, if not tolerating PO, Starting on Wed10/13/19 at 0423, Indications: Nausea and Vomiting ondansetron ODT (ZOFRAN-ODT) disintegrating tablet 4 mg(Linked Group 3) 4 mg, oral, Every 6 hours PRN, nausea, vomiting, Starting on Wed10/13/19 at 0423, Indications: Nausea and Vomiting oxyCODONE (ROXICODONE) tablet 5 mg 5 mg, oral, Every 4 hours PRN, 2nd line for pain, Starting on Wed10/14/19 at 0815, Indications: Pain 0831 (Given - Provider: Carmen Kiser RN)1301 (Given - Provider: Carmen Kiser RN)1726 (Given - Provider: Hanane Gloria RN - Comment: left upper gastric pain)2126 (Given - Provider: Megna Figueroa RN) 0156 (Given - Provider: Megan Figueroa RN)0607 (Given - Provider: Megan Figueroa RN)1106 (Given - Provider: Germaine Carter, SINA)1552 (Given - Provider: Germaine Carter, SINA) senna-docusate (PERICOLACE) 8.6-50 mg per tablet 1 tablet 1 tablet, oral, 2 times daily PRN, constipation, Starting on Wed10/13/19 at 0423, Indications: constipation 0849 (Due) sodium chloride 0.9% flush 0.5-20 mL 0.5-20 mL, intra-catheter, As needed, line care, Starting on Wed10/13/19 at 0422, Flush volume based on line type and size. Flush before and after each use. , Indications: Flushing Linked Groups Order Group 1: dextrose (GLUTOSE) 40 % gel 15 gJump to med 15 g, oral, Every 15 min PRN, low blood sugar, blood glucose less than 70 mg/dL, Starting on Wed10/13/19 at 0423, If patient is alert and able to [...] Call MD for each episode of hypoglycemia. [employer] STATES GLUTOSE-15 CONTAINS GLUCOSE 40% W/W (50% W/V), Indications: hypoglycemic disorder Or dextrose (D10W) 10% bolus 250 mLJump to med 250 mL, intravenous, at 1,000 mL/hr, Administer over 15 Minutes, Every 15 min PRN, blood glucose less than 70 mg/dL and UNABLE to swallow/take PO glucose/juice., Starting on Wed10/13/19 at 0423, After treatment for hypoglycemia, recheck BG followed by treatment every 15 minutes until the BG is greater than 100 mg/dL. Then check BG 1 hour post treatment. If BG is less than 100 mg/dL, repeat Q15 minute BG checks and treatment. Call MD for each episode of hypoglycemia., Indications: hypoglycemic disorder Group 2: LORazepam (ATIVAN) tablet 1 mgJump to med 1 mg, oral, Every 4 hours PRN, other, Score between 3 and 5 on Alcohol Withdrawl Assessment, Starting on Wed10/13/19 at 1140, For 6 days, HOLD for any status indicating over sedation including the following: drifts off to sleep during conversation, minimal or no response to verbal or physical stimulation, or respiratory rate less than 10 breaths per minute., Indications: Alcohol Withdrawal Syndrome Or LORazepam (ATIVAN) tablet 1 mgJump to med 1 mg, oral, Every 2 hours PRN, other, Score between 6 and 12 on Alcohol Withdrawl Assessment, Starting on Wed10/13/19 at 1140, For 6 days, HOLD for any status indicating over sedation including the following: drifts off to sleep during conversation, minimal or no response to verbal or physical stimulation, or respiratory rate less than 10 breaths per minute., Indications: Alcohol Withdrawal Syndrome Or LORazepam (ATIVAN) injection 1 mgJump to med 1 mg, intravenous, Every 1 hour PRN, other, Score between 13 and 18 on Alcohol Withdrawl Assessment, Starting on Wed10/13/19 at 1140, For 6 days, HOLD for any status indicating over sedation including the following: drifts off to sleep during conversation, minimal or no response to verbal or physical stimulation, or respiratory rate of less than 10 breaths per minute. For IV administration, dilute with equal volume of 0.9% sodium chloride. Do not exceed a rate of 2 mg/minute, Indications: Alcohol Withdrawal Syndrome Or LORazepam (ATIVAN) injection 1 mgJump to med 1 mg, intramuscular, Every 1 hour PRN, other, Score between 13 and 18 on Alcohol Withdrawl Assessment, Starting on Wed10/13/19 at 1140, For 6 days, Administer IM if unable to provide IV Push. HOLD for any status indicating over sedation including the following: drifts off to sleep during conversation, minimal or no response to verbal or physical stimulation, or respiratory rate less than10 breaths per minute. For IV administration, dilute with equal volume of 0.9% sodium chloride. Do not exceed a rate of 2 mg/minute, Indications: Alcohol Withdrawal Syndrome Or LORazepam (ATIVAN) injection 2 mgJump to med 2 mg, intravenous, Every 1 hour PRN, other, Score greater than 18 on Alcohol Withdrawl Assessmen, Starting on Wed10/13/19 at 1140, For 6 days, HOLD for any status indicating over sedation including the following: drifts off to sleep during conversation, minimal or no response to verbal or physical stimulation, or respiratory rate less than 10 breaths per minute. For IV administration, dilute with equal volume of 0.9% sodium chloride. Do not exceed a rate of 2 mg/minute, Indications: Alcohol Withdrawal Syndrome Or LORazepam (ATIVAN) injection 2 mgJump to med 2 mg, intramuscular, Every 1 hour PRN, other, Score greater than 18 on Alcohol Withdrawl Assessment, Starting on Wed10/13/19 at 1140, For 6 days, Administer IM if unable to provide IV Push.HOLD for any status indicating over sedation including the following: drifts off to sleep during conversation, minimal or no response to verbal or physical stimulation, or respiratory rate less than 10 breaths per minute. For IV administration, dilute with equal volume of 0.9% sodium chloride. Do not exceed a rate of 2 mg/minute, Indications: Alcohol Withdrawal Syndrome Group 3: ondansetron ODT (ZOFRAN-ODT) disintegrating tablet 4 mgJump to med 4 mg, oral, Every 6 hours PRN, nausea, vomiting, Starting on Wed10/13/19 at 0423, Indications: Nausea and Vomiting Or ondansetron (ZOFRAN) injection 4 mgJump to med 4 mg, intravenous, Administer over 2 Minutes, Every 6 hours PRN, nausea, vomiting, if not tolerating PO, Starting on Wed10/13/19 at 0423, Indications: Nausea and Vomiting documented in this encounter Orders Medications Ordered That Jamil ht Not Have Been Administered Count Last Ordered Date First Ordered Date EPINEPHrine 0.3 mg/0.3 mL sy ringe - ADS Override Pull 1 10/15/2019 HYDROmorphone (DILAUDID) injection 1 mg 1 0 10/14/2019 aspirin enteric coated tablet 325 mg 1 06/2019 dextrose (D10W) 10% bolus 250 mL 10/13/19 20 dextrose (GLUTOSE) 40 % gel 15 g 1 10/13/19 20 glucagon injection 1 mg 1 10/13/2019 insulin lispro (HumaLOG) inj ection 1-2 Units 1 10/13/2019 LORazepam (ATIVAN) injection 1 mg 2 020 LORazepam (ATIVAN) injection 2 mg 2 020 LORazepam (ATIVAN) tablet 1 mg 2 10/13/2019 ondansetron (ZOFRAN) injection 4 mg 1 10/12 ondansetron ODT (ZOFRAN-ODT) disintegrating tablet 4 mg 1 10/13/2019 senna-docusate (PERICOLACE) 8.6-50 mg per tablet 1 tablet 1 10/13/2019 sodium chloride 0.9% flush 0.5-20 mL 1 06/2019 Lab Orders Without Results Count Last Ordered D ate First Ordered Date POCT GLUCOSE DEVICE 12 10/14/2019 10/13/19 20 Nursing Count Last Ordered Date First Orde red Date WEIGH PATIENT 1 10/13/2019 documented in this encounter Care Teams Rn Picu Relationship Specialty Start Date End Date Thao Dove MD PCP - General 03/14/19 documented as of this encounter
--- OUTSIDE RECORDS SUMMARY | 2024-07-02 03:55 | XMS_ITS | Encounter Summary ---
Author Organization [facility] Healthcare Address [address] [place] [address] Care Team Providers Care Health Communications Specialist Name Role Phone Thao Dove MD Primary Care Provider Encounter Details Date Type Department Care Team (Late st Contact Info) Description 07/12/2019 3:15 PM ENGLISH COMPOSITION INSTRUCTOR Lab [address] [address] Social History Tobacco Use Types Packs/Day Years [...] on filedocumented in this encounter Care Teams Health Communications Specialist Relationship Specialty Start Date End Date Thao Dove MD PCP - General 03/14/19 documented as of this encounter
--- OUTSIDE RECORDS SUMMARY | 2024-07-02 03:55 | XMS_ITS | Encounter Summary ---
Author Organization [facility] Healthcare Address [address] [place] [address] Care Team Providers Care Practice Architect Name Role Phone Thao Dove MD Primary Care Provider Encounter Details Date Type Department Care Team (Latest Contact Info) Description 10/13/2019 6:57 AM CDT - 10/13/2019 11:59 PM CDT Hospital Encounter [facility] [address] [place] [id number] Discharge Disposition: Discharge to home or self care Social History Tobacco Use Types Packs/Day Years Used Date Smoking Tobacco: Every Day Cigarettes 0.5 24 Started: 2000 Smokeless Tobacco: Never Alcohol Use Standard Drinks/Week Comments Not Currently 0 (1 standard drink = 0.6 oz pure alcohol) None for 20 days, pt reports heavy drinker from [id number] Comments No Sex and Gender Information Value [...] 10/02/2019 0 documented as of this encounter Discharge Disposition Disposition Code Departure Means Destination Discharge to home or self care documented in this encounter Plan of Treatment Not on file documented as of this encounter Procedures Procedure Name Priority Date/Time Associated Diagnosis Comments CT BODY OUTSIDE CONSULT Routine 10/13/2019 6:57 AM CDT Diagnosis unknown documented in this encounter Results * CT Body Outside Consult (10/13/2019 6:57 [...] images may or may not represent the grindstone source data set and thus may contain changes that may lower the accuracy of this second-opinion interpretation. Electronically signed by: Raúl Rousseau M.D. Narrative 10/13/2019 7:33 AM CDT EXAMINATION: RADIOLOGY CONSULTATION ON OUTSIDE IMAGING STUDY STUDY INITIALLY PERFORMED: 10/12/2019 at [facility]. TYPE OF STUDY: Multiple CT images [...] outside imaging study with images submitted through [employer]mitted[employer] DATE OF CONSULTATION: 10/13/2019 7:21 AM HISTORY: [...] IMAGING STUDY STUDY INITIALLY PERFORMED: 10/12/2019 at [facility]. TYPE OF STUDY: Multiple CT images [...] images may or may not represent the grindstone source data set and thus may contain changes that may lower the accuracy of this second-opinion interpretation. Electronically signed by: Raúl Rousseau M.D. Yari Jolly MD IMG CT PROCEDURES Final Result documented in this encounter Visit Diagnoses Not on filedocumented in this encounter Care Teams Practice Architect Relationship Specialty Start Date End Date Thao Dove MD PCP - General 03/14/19 documented as of this encounter
--- OUTSIDE RECORDS SUMMARY | 2024-07-02 03:55 | XMS_ITS | Encounter Summary ---
Author Organization [facility] Healthcare Address [address] [place] [address] Care Team Providers Care Shingles Roofer Name Role Phone Thao Dove MD Primary Care Provider Encounter Details Date Type Department Care Team (Late st Contact Info) Description 09/19/2019 Telephone [facility] [address] [facility] [address] [place] [address] Neela Lechuga NP [address] [facility] [address] [place] [address] Social History Tobacco Use Types Packs/Day Years [...] Encounter - Neela Lechuga NP - 09/19/2019 1:09 PM CDT Straight to voicemail, mailbox full documented in this encounter Plan of Treatment Not on file documented as of this encounter Visit Diagnoses Not on filedocumented in this encounter Care Teams Shingles Roofer Relationship Specialty Start Date End Date Thao Dove MD PCP - General 03/14/19 documented as of this encounter
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
--- OUTSIDE RECORDS SUMMARY | 2024-07-02 03:55 | XMS_ITS | Encounter Summary ---
Author Organization [facility] Healthcare Address [address] [place] [address] Care Team Providers Care Arabic Translator Name Role Phone Thao Dove MD Primary Care Provider Reason for Visit * Reason Onset Date Comments GI Referral 08/26/2023 Encounter Details Date Type Department Care Team (Late st Contact Info) Description 08/26/2023 Telephone [facility] Gastroenterology at [address] [place] [address] Neela Thomas GI Referral Social History Tobacco Use Types Packs/Day Years Used Date Smoking Tobacco: Every Day Cigarettes 0.5 24 Started: 2000 Smokeless Tobacco: Never Alcohol Use Standard Drinks/Week Comments Not Currently 0 (1 standard drink = 0.6 oz pure alcohol) None for 20 days, pt reports heavy drinker from [id number] Comments No Sex and Gender Information Value Date Recorded Sex Assigned at Not on file Legal Sex Female 6:19 PM CDT Gender Identity Not on file Sexual Orientation Not on file documented as of this encounter Miscellaneous Notes * Telephone Encounter - Neela Thomas - 08/26/2023 11:49 AM CDT Received referral from Ari West's office stating patient needed an EGD to determine need foranticoagulation. Called Ari West's office and let them know we would be unable to schedule patient since she has [facility] and [facility] is not contracted with that insurance. documented in this encounter Plan of Treatment Not on file documented as of this encounter Visit Diagnoses Not on filedocumented in this encounter Care Teams Arabic Translator Relationship Specialty Start Date End Date Thao Dove MD PCP - General 03/14/19 documented as of this encounter
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
--- OUTSIDE RECORDS SUMMARY | 2024-07-02 03:56 | XMS_ITS | Encounter Summary ---
Author Organization [facility] Healthcare Address [address] [place] [address] Care Team Providers Care Fruit Room Hand Name Role Phone Thao Dove MD Primary Care Provider Reason for Referral * Diagnostic Imaging (Routine) - Closed Specialty Diagnoses / Procedures Referred By Contac t Referred To Contact Radiology Diagnoses Pancreatitis, necrotizing Procedures IR Inject Abscess Catheter Toy Fish MD Phone: tel: fax: [address] [phone] Referral ID Status Reason Start Date Expiration Date Visits Re quested Visits Authorized [id number] Closed 05/26/2019 12/04/2020 1 1 IAL EDUCATION SUPERVISOR Reason for Visit * Diagnostic Imaging (Routine) - Closed Specialty Diagnoses / Procedures Referred By Contac t Referred To Contact Radiology Diagnoses Pancreatitis, necrotizing Procedures IR Inject Abscess Catheter Toy Fish MD Phone: tel: fax: [address] [phone] Referral ID Status Reason Start Date Expiration Date Visits Re quested Visits Authorized [id number] Closed 05/26/2019 12/04/2020 1 1 Encounter Details Date Type Department Care Team (Late st Contact Info) Description 06/16/2019 10:28 AM SPECIAL EDUCATION SUPERVISOR - 06/16/2019 2:50 PM SPECIAL EDUCATION SUPERVISOR Hospital Encounter [facility] Radiology [address] [id number] Toy Fish MD [address] [facility] [address] [place] [address] Pancreatitis, necrotizing Discharge Disposition: Discharge to home or self [...] Sign Reading Time Taken Comments Blood Pressure 137/98 06/16/2019 2:44 PM SPECIAL EDUCATION SUPERVISOR Pulse 80 06/16/2019 2:43 PM SPECIAL EDUCATION SUPERVISOR Temperature 36.8 ??C (98.2 ??F) 06/16/2019 2:43 PM CS T Respiratory Rate 14 06/16/2019 2:43 PM SPECIAL EDUCATION SUPERVISOR Oxygen Saturation 97% 06/16/2019 2:43 PM SPECIAL EDUCATION SUPERVISOR Inhaled Oxygen Concentration - - Weight - - Height - - Body Mass Index - - documented in this encounter Discharge Diagnoses Diagnosis Encounter for fitting and adjustment of non-vascular catheter - ENCOUNTER FOR FITTING AND ADJUSTMENT OF NON-VASCULAR CATHETER Acute pancreatitis with uninfected necrosis, unspecified - ACUTE PANCREATITIS WITH UNINFECTED NECROSIS, UNSPECIFIED documented in this encounter Discharge Instructions * Discharge Instructions* Jp Salazar MD - 06/16/2019 2:44 PM SPECIAL EDUCATION SUPERVISOR Interventional Radiology Outpatient Discharge Instructions/Note Diagnosis: Abscess Procedure: Drain check and removal Limitations: [] No lifting greater than 5 pounds with [] Right [] Left arm for 7 days. [] You received medication that may affect your judgement. ?? Stay with a responsible person today. ?? Do not drive, operate machinery, make any legal or important decisions, or drink alcohol until tomorrow. ?? No smoking unless another adult is present. Other Diet: You may resume your previous diet. Medication: [x] Usual medications; check with your regular doctor for any questions. Do not take any new pain medicine, sleeping pills or sedatives unless approved by your doctor. [] Prescriptions given for: Procedure Site Care: [] teaching sheet given [] Skin glue was used to close your incision. See teaching sheet. [x] Keep site clean and dry. [x] You may bathe or shower tomorrow. [x] Change the dressing daily and if it becomes wet or dirty. [] Cover entire area with plastic and tape down edges before showering to keep site clean and dry. [] The suture at your dialysis access site may be removed by the dialysis staff on ___/___/___ (date). To contact an Interventional Radiologist at [facility] call [phone] Wednesday through Wednesday from 7:30am-4:30pm. At all other times call [phone] and ask that the Interventional Radiologist be paged. To contact an Interventional Radiologist at [facility] call [phone] Wednesday through Wednesday from 7:30am-3:30pm. Special instructions: Please call Interventional Radiology for any procedure related questions or problems including: ?? Extreme swelling or bruising at the site. ?? Unusual drainage or bleeding from procedure site. ?? Fever of 101.5 F for more than 24 hours. ?? Severe procedure related pain. IAL EDUCATION SUPERVISOR documented in this encounter Medications at Time of Discharge escitalopram (LEXAPRO) 10 mg tabletIndications :Anxiety with Depression Take 10 mg by mouth nightly 0 06/01/2019 hydrOXYzine (ATARAX) 25 mg tablet Take 25 mg by mouth every 8 (eight) hours as needed for anxiety 06/01/2019 folic acid (FOLVITE) 1 mg tablet Take 1 tablet (1 mg total) by mouth daily 30 tablet 1 03/22/2019 09/28/2019 thiamine (VITAMIN B1) 100 mg tablet Take 1 tablet (100 mg total) by mouth daily 30 tablet 1 03/22/2019 09/28/2019 documented as of this encounter Discharge Disposition Disposition Code Departure Means Destination Discharge to home or self care documented in this encounter Miscellaneous Notes * Post-Procedure Note - Jp Salazar MD - 06/16/2019 2:43 PM CST Radiology Brief Post Procedure Note Attending: Pily Head Cook: Martin Sedation/Anesthesia: Local Pre-Op/Pre-Procedure Diagnosis: Peripancreatic fluid collection Post-Op/Post-Procedure Diagnosis: Collection resolved Procedure Performed: Drain check and removal Procedure Findings: Resolved collection, no fistula Complications: None Estimated Blood Loss: None Specimens: None Condition: Stable Full report to follow. IAL EDUCATION SUPERVISOR * Pre-Procedure Note - Destinee Murcia PA - 06/16/2019 1:02 PM SPECIAL EDUCATION SUPERVISOR Radiology Procedure Plan Indication: necrotizing pancreatitis Planned Procedure: drain check, possible exchange vs removal, local only 39 y/o female with necrotizing pancreatitis c/b peripancreatic fluid collection s/p perc drain placement on 03/17. The catheter was last exchanged on 05/26 for a 14F DM. The catheter has had minimal output since exchange. Pt does not flush the catheter. Pt had an ERCP this AM by Dr. Higuera; a stentwas not placed. Pt presents for drain check, possible exchange vs removal. Cosigned by Li Nascimento MD at 07/20/2019 7:24 PM SPECIAL EDUCATION SUPERVISOR IAL EDUCATION SUPERVISOR IAL EDUCATION SUPERVISOR documented in this encounter Plan of Treatment Not on file documented as of this encounter Procedures Procedure Name Priority Date/Time Associated Diagnosis Comments ABSCESS CATHETER INJECTION Schedule Routine, Read Routine (OP Routine) 06/16/2019 2:44 PM SPECIAL EDUCATION SUPERVISOR Pancreatitis, necrotizing documented in this encounter Results * IR Inject Abscess Catheter (06/16/2019 2:44 PM SPECIAL EDUCATION SUPERVISOR) Anatomical Region Laterality Modality Body N/A Radio Fluoroscop y 06/16/2019 2:48 PM SPECIAL EDUCATION SUPERVISOR Impressions 06/16/2019 5:34 PM SPECIAL EDUCATION SUPERVISOR Resolved peripancreatic fluid collection no persistent fistula to the pancreatic duct. ??The catheter was removed. If questions arise, please contact us by calling [phone]. Dictated by: Zenia Salazar M.D. The radiology attending physician has personally reviewed this study, and had reviewed and/or edited this written report and agrees with it. Electronically signed by: Li Nascimento M.D. Narrative 06/16/2019 5:34 PM SPECIAL EDUCATION SUPERVISOR EXAMINATION: ??DRAINAGE CATHETER EVALUATION AND REMOVAL HISTORY: ??39-year-old woman with necrotizing pancreatitis complicated by a peripancreatic fluid collection, which has been managed by percutaneous drain. ATTENDING PRESENCE: ??Li Nascimento M.D., the attending radiologist, was present from the beginning to the end of the procedure. SEDATION: ??Local anesthesia only TECHNIQUE: Prior to beginning the procedure, [place] Protocol was used to confirm the patient's identity and planned procedure. Fluoroscopy time has been recorded in the electronic medical record. After obtaining a trimming operator image, the catheter was injected with dilute contrast and multiple fluoroscopic images obtained. ?? The sutures on the catheter were cut and the catheter was removed without difficulty. A sterile dressing was applied to the skin site. ESTIMATED BLOOD LOSS: Minimal. CONDITION: Stable DISCHARGED TO: ??Recovery and then to Home. FINDINGS: Images from the catheter check demonstrate the cavity resolved with no fistula to the pancreatic duct. The catheter was draining trace clear yellow fluid. Procedure Note Li Nascimento MD - 06/16/2019 EXAMINATION: DRAINAGE CATHETER EVALUATION AND REMOVAL HISTORY: 39-year-old woman with necrotizing pancreatitis complicated by a peripancreatic fluid collection, which has been managed by percutaneous drain. ATTENDING PRESENCE: Li Nascimento M.D., the attending radiologist, was present from the beginning to the end of the procedure. SEDATION: Local anesthesia only TECHNIQUE: Prior to beginning the procedure, [place] Protocol was used to confirm the patient's identity and planned procedure. Fluoroscopy time has been recorded in the electronic medical record. After obtaining a trimming operator image, the catheter was injected with dilute [...] catheter was draining trace clear yellow fluid. IMPRESSION: Resolved peripancreatic fluid collection no persistent fistula to the pancreatic duct. The catheter was removed. If questions arise, please contact us by calling [phone]. Dictated by: Zenia Salazar M.D. The radiology attending physician has personally reviewed this study, and had reviewed and/or edited this written report and agrees with it. Electronically signed by: Li Nascimento M.D. us Toy Fish MD IMG IR PROCEDURES Final Resul t documented in this encounter Visit Diagnoses Diagnosis Pancreatitis, necrotizing Acute pancreatitis documented in this encounter Administered Medications Inactive Administered Medications - up to 3 most recent administrations Medication Order MAR Action Action Date Dose Rate Site lidocaine (XYLOCAINE) 10 mg/mL (1 %) injection Code/trauma/sedation medication, Starting on Wed06/16/19 at 1426, Intra-Procedure (IR), Indications: Administration of Local AnesthesiaIndications:Admin istration of Local Anesthesia Given 06/16/2019 2:26 PM SPECIAL EDUCATION SUPERVISOR 10 mL Abdominal Tissue documented in this encounter Active and Recently Administered Medications Times are shown in SPECIAL EDUCATION SUPERVISOR. PRN Medication Order 06/14/2019 06/15/2019 06/16/2019 lidocaine (XYLOCAINE) 10 mg/mL (1 %) injection (COMPLETED) Code/trauma/sedation medication, Starting on Wed06/16/19 at 1426, Intra-Procedure (IR), Indications: Administration of Local Anesthesia 1426 (Given - Provid er: Jp Salazar MD) documented in this encounter Orders Medications Ordered That Jamil ht Not Have Been Administered Count Last Ordered Date First Ordered Date lidocaine (XYLOCAINE) 10 mg/ mL (1 %) injection 1 06/16/2019 documented in this encounter Care Teams Fruit Room Hand Relationship Specialty Start Date End Date Thao Dove MD PCP - General 03/14/19 documented as of this encounter
--- OUTSIDE RECORDS SUMMARY | 2024-07-02 03:56 | XMS_ITS | Encounter Summary ---
Author Organization [facility] Healthcare Address [address] [place] [address] Care Team Providers Care Industrial Economics Teacher Name Role Phone Thao Dove MD Primary Care Provider Encounter Details Date Type Department Care Team (Late st Contact Info) Description 05/25/2019 Telephone [facility] Radiology [address] [place] [address] Liz Mauricio RN Social History Tobacco Use Types Packs/Day Years Used Date Smoking Tobacco: Every Day Cigarettes Alcohol Use Standard Drinks/Week Comments Not Currently 0 (1 standard drink = 0.6 oz pur e alcohol) None for 20 days Comments No Sex and Gender Information Value Date Recorded Sex Assigned at Not on file Legal Sex Female 6:19 PM CDT Gender Identity Not on file Sexual Orientation Not on file documented as of this encounter Miscellaneous Notes * Telephone Encounter - Renata Henry RN - 05/25/2019 4:33 PM ACCESS REGISTRAR No answer SS REGISTRAR * Telephone Encounter - Liz Mauricio RN - 05/25/2019 3:19 PM ACCESS REGISTRAR SS REGISTRAR documented in this encounter Plan of Treatment Not on file documented as of this encounter Visit Diagnoses Not on filedocumented in this encounter Care Teams Industrial Economics Teacher Relationship Specialty Start Date End Date Thao Dove MD PCP - General 03/14/19 documented as of this encounter
--- OUTSIDE RECORDS SUMMARY | 2024-07-02 03:56 | XMS_ITS | Encounter Summary ---
Author Organization [facility] Healthcare Address [address] [place] [address] Care Team Providers Care Surg Physician Asst Name Role Phone Thao Dove MD Primary Care Provider Encounter Details Date Type Department Care Team (Late st Contact Info) Description 07/10/2019 10:45 AM COPY EDITOR Ancillary Procedure [address] 5th [place] [address] Brayan Richter MD [address] [place] [address] Social History Tobacco Use Types Packs/Day Years [...] Name Priority Date/Time Associated Diagnosis Comments US PELVIS COMPLETE IP Routine 07/10/2019 12 :45 PM COPY EDITOR documented in this encounter Results * US Pelvis Complete (07/10/2019 12:45 PM COPY EDITOR) Cul de Sac No free fluid visualized V[facility]POINT Endometrial Thickness 5.4 mm&millim eters VIEWPOINT Anatomical Region Laterality Modality Pelvis N/A Ultrasound 07/10/2019 2:46 PM COPY EDITOR us Brayan Richter MD IM US PROCEDURES F inal Result documented in this encounter Visit Diagnoses Not on filedocumented in this encounter Care Teams Surg Physician Asst Relationship Specialty Start Date End Date Thao Dove MD PCP - General 03/14/19 documented as of this encounter
--- OUTSIDE RECORDS SUMMARY | 2024-07-02 03:56 | XMS_ITS | Encounter Summary ---
Author Organization [facility] Healthcare Address [address] [place] [address] Care Team Providers Care Body Technician/Painter Name Role Phone Thao Dove MD Primary Care Provider Encounter Details Date Type Department Care Team (Latest Contact Info) Description 06/16/2019 7:00 AM DRAPERY AND UPHOLSTERY ESTIMATOR - 06/16/2019 10:27 AM [facility] Hospital Encounter [facility] [place] [address] [facility] [address] [place] [address] Toy Higuera MD [address] [place] [address] Discharge Disposition: Discharge to home or self [...] Procedure Name Priority Date/Time Associated Diagnosis Comments ERCP IP Routine 06/16/2019 8:12 AM DRAPERY AND UPHOLSTERY ESTIMATOR documented in this encounter Results * FL ERCP Biliary and Pancreatic (06/16/2019 8:12 AM DRAPERY AND UPHOLSTERY ESTIMATOR) Narrative [id number] - 06/16/2019 8:13 AM DRAPERY AND UPHOLSTERY ESTIMATOR The images from this study are not interpreted by Radiology. ??Please refer to the physician's procedure / OR operative note. us Toy Higuera MD IMG FLUOROSCOPY PROCEDURE S Final Result Performing Organization Address City/State/[facility] Co de Phone Number [email or web address] documented in this encounter Visit Diagnoses Not on filedocumented in this encounter Care Teams Body Technician/Painter Relationship Specialty Start Date End Date Thao Dove MD PCP - General 03/14/19 documented as of this encounter
--- OUTSIDE RECORDS SUMMARY | 2024-07-02 03:56 | XMS_ITS | Encounter Summary ---
Author Organization [facility] Address [address] [place] [address] Phone Care Team Providers Care Sales Representative Publications Name Role Phone Thao Dove MD Primary Care Provider Encounter Details Date Type Department Care Team (Late st Contact Info) Description 05/23/[address] [facility] Gastroenterology [address] [place] [address] 8th [place] [address] [place] [address] RN Social History Tobacco Use Types Packs/Day [...] encounter Miscellaneous Notes * Telephone Encounter - Maliha Street RN - 05/23/2019 1:47 PM CST LMOM. Authorization has not been received for CT tomorrow. ING OPERATOR documented in this encounter Plan of Treatment Not on file documented as of this encounter Visit Diagnoses Not on filedocumented in this encounter Care Teams Sales Representative Publications Relationship Specialty Start Date End Date Thao Dove MD PCP - General 03/14/19 documented as of this encounter
--- OUTSIDE RECORDS SUMMARY | 2024-07-02 03:56 | XMS_ITS | Encounter Summary ---
Author Organization [facility] Facility Care Team Providers Care Business Center Attendant Name Role Phone Thao Dove MD Primary Care Provider Encounter Details Date Type Department Care Team (Latest Contact Info) Description 07/07/2019 Travel Social History Tobacco Use Types Packs/Day [...] on filedocumented in this encounter Care Teams Business Center Attendant Relationship Specialty Start Date End Date Thao Dove MD PCP - General 03/14/19 documented as of this encounter
--- OUTSIDE RECORDS SUMMARY | 2024-07-02 03:56 | XMS_ITS | Encounter Summary ---
Author Organization [facility] Address [address] [place] [address] Phone Care Team Providers Care Cna Pct Name Role Phone Thao Dove MD Primary Care Provider Encounter Details Date Type Department Care Team (Late st Contact Info) Description 05/10/2019 Orders Only [facility] Gastroenterology [address] [facility] 8th [place] [address] [place] [id number] Toy Higuera MD [address] [place] [address] Social History Tobacco Use Types Packs/Day Years [...] as of this encounter Progress Notes * Maliha Street RN - 05/10/2019 2:56 PM CST Pt called to reschedule IOV/CT. CT 12:30 arrival 05/24/19 for 1pm at the imaging center for CT. NPO2 hours prior. Office appointment to follow at 2:30pm. Pt states insurance information has been corrected. Call with any changes, questions, concerns. IT INTERVIEWER documented in this encounter Plan of Treatment Not on file documented as of this encounter Visit Diagnoses Not on filedocumented in this encounter Care Teams Cna Pct Relationship Specialty Start Date End Date Thao Dove MD PCP - General 03/14/19 documented as of this encounter
--- OUTSIDE RECORDS SUMMARY | 2024-07-02 03:56 | XMS_ITS | Encounter Summary ---
Author Organization [facility] Address [address] [place] [address] Care Team Providers Care Senior Mortgage Underwriter Name Role Phone Thao Dove MD Primary Care Provider Reason for Referral * Diagnostic Imaging (Routine) - Closed Specialty Diagnoses / Procedures Referred By Contac t Referred To Contact Radiology Diagnoses Pancreatitis, necrotizing Procedures IR Inject Abscess Catheter Toy Fish MD Phone: tel: fax: [address] [phone] Referral ID Status Reason Start Date Expiration Date Visits Re quested Visits Authorized [id number] Closed 05/05/2019 11/13/2020 1 1 BURNER * Diagnostic Imaging (Routine) - Closed Specialty Diagnoses / Procedures Referred By Contac t Referred To Contact Radiology Diagnoses Pancreatitis, necrotizing Procedures IR Inject Abscess Catheter Marisa Santillan PA Phone: tel: fax: [address] [phone] Referral ID Status Reason Start Date Expiration Date Visits Re quested Visits Authorized [id number] Closed 04/19/2019 10/28/2020 1 1 BURNER Reason for Visit * Diagnostic Imaging (Routine) - Closed Specialty Diagnoses / Procedures Referred By Contac t Referred To Contact Radiology Diagnoses Pancreatitis, necrotizing Procedures IR Inject Abscess Catheter Marisa Santillan PA Phone: tel: fax: [address] [phone] Referral ID Status Reason Start Date Expiration Date Visits Re quested Visits Authorized [id number] Closed 04/19/2019 10/28/2020 1 1 Encounter Details Date Type Department Care Team (Late st Contact Info) Description 05/05/2019 7:53 AM WEED BURNER - 05/05/2019 9:06 AM [facility]ED [facility]NER Hospital Encounter [facility] Radiology [facility] [address] [place] [address] PicToy love MD [address] [facility] [address] [place] [address] Pancreatitis, necrotizing Discharge Disposition: Discharge to home [...] Sign Reading Time Taken Comments Blood Pressure 144/87 05/05/2019 8:58 AM WEED BURNER Pulse 59 05/05/2019 8:58 AM WEED BURNER Temperature 36.4 ??C (97.5 ??F) 05/05/2019 8:58 AM CS T Respiratory Rate - - Oxygen Saturation 98% 05/05/2019 8:58 AM WEED BURNER Inhaled Oxygen Concentration - - Weight - - Height - - Body Mass Index - - documented in this encounter Discharge Diagnoses Diagnosis Encounter for fitting and adjustment of non-vascular catheter - ENCOUNTER FOR FITTING AND ADJUSTMENT OF NON-VASCULAR CATHETER Acute pancreatitis with uninfected necrosis, unspecified - ACUTE PANCREATITIS WITH UNINFECTED NECROSIS, UNSPECIFIED Other specified diseases of pancreas - OTHER SPECIFIED DISEASES OF PANCREAS documented in this encounter Discharge Instructions * Discharge Instructions* Rafa Celaya MD - 05/05/2019 9:27 AM WEED BURNER Interventional Radiology Outpatient Discharge Instructions/Note Diagnosis:Peripancreatic fluid collection Procedure:Drain check Limitations: [] No lifting greater than 5 [...] sheet. [x] Keep site clean and dry. [] You may bathe or shower tomorrow. [x] Change the dressing daily and if it becomes wet or dirty. [] Cover entire area with plastic and tape down edges before showering to keep site clean and dry. [] The suture at your dialysis access site may be removed by the dialysis staff on ___/___/___ (date). Drainage Tube Care: [] Flush tube with [] 5ml Normal Saline [] 10 ml Normal Saline [] Other: [] Flush tube [] once a day [] Other: [] Record drainage output every day. [] Your tube is capped. Uncap the tube after or if severe pain or fever develops. (Please see teaching sheet). [] Call Interventional Radiology if there is leakage around the tube or the tube stops draining. To contact an Interventional Radiologist at [facility] call [phone] Wednesday through Wednesday from 7:30am-4:30pm. At all other times call [phone] and ask that the Interventional Radiologist be paged. To contact an Interventional Radiologist at [facility] call [phone] Wednesday through Wednesday from 7:30am-3:30pm. Special instructions: Please call Interventional Radiology for any procedure related questions or problems including: ?? Extreme swelling or bruising at the site. ?? Unusual drainage or bleeding from procedure site. ?? Fever of 101.5 F for more than 24 hours. ?? Severe procedure related pain. Follow up care: [x] Return to Interventional Radiology in 2 weeks on at Please come to: [] 3rd Floor [facility] [] 4th [facility] [] [facility] [] [facility] Please call [phone] to schedule a follow up appointment. You need to return in BURNER documented in this encounter Medications at Time of Discharge folic acid (FOLVITE) 1 mg tablet Take 1 tablet (1 mg total) by mouth daily 30 tablet 1 03/22/2019 09/28/2019 nicotine (NICODERM CQ) [address] 1 patch on the skin daily 30 patch 03/22/2019 06/16/2019 oxyCODONE (ROXICODONE) 5 mg immediate release tabletIndications :Pain Take 1 tablet (5 mg total) by mouth every 8 (eight) hours as needed for pain 9 tablet 03/21/2019 05/26/2019 thiamine (VITAMIN B1) 100 mg tablet Take 1 tablet (100 mg total) by mouth daily 30 tablet 1 03/22/2019 09/28/2019 documented as of this encounter Discharge Disposition Disposition Code Departure Means Destination Discharge to home or self care documented in this encounter Miscellaneous Notes * Post-Procedure Note - Rafa Celaya MD - 05/05/2019 8:55 AM CST Radiology Brief Post Procedure Note Attending: Savannah Astronomy Professor: Yomi Sedation/Anesthesia: None Pre-Op/Pre-Procedure Diagnosis: Peripancreatic fluid collection Post-Op/Post-Procedure Diagnosis: Same Procedure Performed: Drain check 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 BURNER * Pre-Procedure Note - Rafa Celaya MD - 05/05/2019 8:00 AM CST Radiology Procedure Plan Indication: 39-year-old female with necrotizing pancreatitis and a roddy- pancreatic fluid collectionwhich is currently being managed with a 16-Canadian cope loop abscess drainage catheter which was placed on 03/17/2019. The catheter was last exchanged on 04/19/19 for a new 16-Canadian cope loop catheter. She reports output is decreased to 15cc of thick yellow fluid a day. No leakage around site. She isnot on any blood thinners. No recent illnesses. Planned Procedure: Drain check, possible exchange, possible removal BURNER documented in this encounter Plan of Treatment Not on file documented as of this encounter Procedures Procedure Name Priority Date/Time Associated Diagnosis Comments ABSCESS CATHETER INJECTION Schedule Routine, Read Routine (OP Routine) 05/05/2019 9:00 AM WEED BURNER Pancreatitis, necrotizing documented in this encounter Results * IR Inject Abscess Catheter (05/26/2019 2:57 PM WEED BURNER) Anatomical Region Laterality Modality Body N/A X-Ray Angiograph y 05/26/2019 3:24 PM WEED BURNER Impressions 05/26/2019 6:08 PM WEED BURNER Nearly resolved peripancreatic collection. ?? Catheter was downsized to facilitate drainage and resolution. PLAN: Continue to monitor catheter output as well as the patient's clinical condition. ??The patient is scheduled for an ERCP and drain check and removal on 06/16/2018. ?? The catheter should not be flushed at this time. ?? If questions arise, please contact us by calling [phone]. Dictated by: Chad Hartman M.D. The radiology attending physician has personally reviewed this study, and had reviewed and/or edited this written report and agrees with it. Electronically signed by: Timothy Teixeira M.D. Narrative 05/26/2019 6:08 PM WEED BURNER EXAMINATION: ??DRAINAGE CATHETER EVALUATION AND EXCHANGE HISTORY: ??39-year-old woman with necrotizing pancreatitis complicated by a peripancreatic fluid collection treated with percutaneous drainage. 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 ??She presents today for drain check. ATTENDING PRESENCE: ??Timothy Teixeira M.D., the attending radiologist, was present from the beginning to the end of the procedure. SEDATION: ??The patient did not require conscious sedation for the procedure. TECHNIQUE: ??Prior to beginning the procedure, Milton Freewater Protocol was used to confirm the patient's identity and planned procedure. Fluoroscopy time has been recorded in the electronic medical record. Maximum sterile barriers including cap, mask, hand hygiene, sterile gloves, sterile gown, large sterile drape and 2% chlorhexidine for cutaneous antisepsis were used. After obtaining a herb grower image, the catheter was injected with dilute contrast and multiple diagnostic fluoroscopic spot images were obtained. The skin overlying the collection was sterilely prepped, draped and infiltrated with 1% buffered lidocaine. The catheter was then exchanged over a [employer]son guidewire for a new 14-Canadian Noel-Canseco catheter. ??Limited contrast injection confirmed appropriate placement of the catheter. The catheter was secured in place with a Prolene stitch and connected to gravity drainage. ??A sterile dressing was applied. ESTIMATED BLOOD LOSS: Minimal. CONDITION: Stable DISCHARGED TO: ??Recovery and then to Home. FINDINGS: ??Images from the catheter injection demonstrate the cavity which has decreased in size. ??During the initial injection of the indwelling catheter, a connection to the pancreatic duct was noted. The drain was then downsized to a 14 Noel-Canseco to facilitate drainage. No enteric fistula was present. Images from the catheter exchange show the catheter tip centered in peripancreatic collection. Procedure Note Timothy Teixeira MD - 05/26/2019 EXAMINATION: DRAINAGE CATHETER EVALUATION AND EXCHANGE HISTORY: 39-year-old woman with necrotizing pancreatitis complicated by a peripancreatic fluid collection treated with percutaneous drainage. 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 She presents today for drain check. ATTENDING PRESENCE: Timothy Teixeira M.D., the attending radiologist, was present from the beginning to the end of the procedure. SEDATION: The patient did not require conscious sedation for the procedure. TECHNIQUE: Prior to beginning the procedure, Milton Freewater Protocol was used to confirm the patient's identity and planned procedure. Fluoroscopy time has been recorded in the electronic medical record. Maximum sterile barriers including cap, mask, hand hygiene, sterile gloves, sterile gown, large sterile drape and 2% chlorhexidine for cutaneous antisepsis were used. After obtaining a herb grower image, the catheter was injected with dilute contrast and multiple diagnostic fluoroscopic spot images were obtained. The skin overlying the collection was sterilely prepped, draped and infiltrated with 1% buffered lidocaine. The catheter was then exchanged over a [employer] guidewire for a new 14-Canadian Noel-Canseco catheter. Limited contrast injection confirmed appropriate placement of the catheter. The catheter was secured in place with a Prolene stitch and connected to gravity drainage. A sterile dressing was applied. ESTIMATED BLOOD LOSS: Minimal. CONDITION: Stable DISCHARGED TO: Recovery and then to Home. FINDINGS: Images from the catheter injection demonstrate the cavity which has decreased in size. During the initial injection of the indwelling catheter, a connection to the pancreatic duct was noted. The drain was then downsized to a 14 Noel-Canseco to facilitate drainage. No enteric fistula was present. Images from the catheter exchange show the catheter tip centered in peripancreatic collection. IMPRESSION: Nearly resolved peripancreatic collection. Catheter was downsized to facilitate drainage and resolution. PLAN: Continue to monitor catheter output as well as the patient's clinical condition. The patient is scheduled for an ERCP and drain check and removal on 06/16/2018. The catheter should not be flushed at this time. If questions arise, please contact us by calling [phone]. Dictated by: Chad Hartman M.D. The radiology attending physician has personally reviewed this study, and had reviewed and/or edited this written report and agrees with it. Electronically signed by: Timothy Rostambeigi, M.D. us Toy D. 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 ?? PLAN: Continue to monitor catheter output as well as the patient's clinical condition. The catheter should not be flushed. ?? The patient's animal control specialist was notified via email in order to evaluate whether a biliary stent could be placed to treat this fistula (Patient was told by her physicians office of that potential plan). ??The patient will follow-up with us in 2 weeks for possible glue injection to occlude the fistulous tract if no stent placement by gastroenterology is planned. If questions arise, please contact us by calling [phone]. Dictated by: Rafa Olson M.D. The radiology attending physician has personally reviewed this study, and had reviewed and/or edited this written report and agrees with it. Electronically signed by: Lorena Link M.D. Narrative 05/05/2019 7:30 PM WEED BURNER EXAMINATION: ??DRAINAGE CATHETER EVALUATION HISTORY: ??39-year-old female with necrotizing pancreatitis and a roddy-pancreatic fluid collection which is currently being managed with a 16-Canadian cope loop abscess drainage catheter placed on 03/17/2019. The catheter was last exchanged on 04/19/19 for a new 16-Canadian cope loop catheter. ATTENDING PRESENCE: ??Lorena Link M.D., the attending radiologist, was present from the beginning to the end of the procedure. SEDATION: ??None TECHNIQUE: Prior to beginning the procedure, Milton Freewater Protocol was used to confirm the patient's identity and planned procedure. Fluoroscopy time has been recorded in the electronic medical record. After obtaining a herb grower image, the catheter was injected with dilute contrast and multiple fluoroscopic images obtained. ??Cone beam CT images were also obtained to better delineate the extent of the fluid collection. A sterile dressing was applied to the skin site. ESTIMATED BLOOD LOSS: Minimal. CONDITION: Stable DISCHARGED TO: ??Recovery and then to Home. FINDINGS: Images from the catheter check demonstrate that the roddy-pancreatic fluid cavity is stable in size with a persistent fistula to the pancreas, which was best appreciated on cone beam CT images. The catheter was draining thick yellow fluid. Procedure Note Lorena Granger MD - 05/05/2019 EXAMINATION: DRAINAGE CATHETER EVALUATION HISTORY: 39-year-old female with necrotizing pancreatitis and a roddy-pancreatic fluid collection which is currently being managed with a 16-Canadian cope loop abscess drainage catheter placed on 03/17/2019. The catheter was last exchanged on 04/19/19 for a new 16-Canadian cope loop catheter. ATTENDING PRESENCE: Lorena Link M.D., the attending radiologist, was present from the beginning to the end of the procedure. SEDATION: None TECHNIQUE: Prior to beginning the procedure, Milton Freewater Protocol was used to confirm the patient's identity and planned procedure. Fluoroscopy time has been recorded in the electronic medical record. After obtaining a herb grower image, the catheter was injected with dilute contrast and multiple fluoroscopic images obtained. Cone beam CT images were also obtained to better delineate the extent of the fluid collection. A sterile dressing was applied to the skin site. ESTIMATED BLOOD LOSS: Minimal. CONDITION: Stable DISCHARGED TO: Recovery and then to Home. FINDINGS: Images from the catheter check demonstrate that the roddy-pancreatic fluid cavity is stable in size with a persistent fistula to the pancreas, which was best appreciated on cone beam CT images. The catheter was draining thick yellow fluid. 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 PLAN: Continue to monitor catheter output as well as the patient's clinical condition. The catheter should not be flushed. The patient's animal control specialist was notified via email in order to evaluate whether a biliary stent could be placed to treat this fistula (Patient was told by her physicians office of that potential plan). The patient will follow-up with us in 2 weeks for possible glue injection to occlude the fistulous tract if no stent placement by gastroenterology is planned. If questions arise, please contact us by calling [phone]. Dictated by: Rafa Olson M.D. The radiology attending physician has personally reviewed this study, and had reviewed and/or edited this written report and agrees with it. Electronically signed by: Lorena Link M.D. us Marisa CELAYA IMG IR PROCEDURES Linda l Result documented in this encounter Visit Diagnoses Diagnosis Pancreatitis, necrotizing Acute pancreatitis Pancreatitis, necrotizing Acute pancreatitis documented in this encounter Care Teams Senior Mortgage Underwriter Relationship Specialty Start Date End Date Thao Dove MD PCP - General 03/14/19 documented as of this encounter
--- OUTSIDE RECORDS SUMMARY | 2024-07-02 03:56 | XMS_ITS | Encounter Summary ---
Author Organization [facility] Address [address] [place] [address] Care Team Providers Care Children Teacher Name Role Phone Thao Dove MD Primary Care Provider Encounter Details Date Type Department Care Team (Late st Contact Info) Description 06/15/2019 Orders Only Radiology [address] [place] [id number] Miko Quesada MD [address] [facility] [address] [place] [address] Necrotizing pancreatitis (Primary Dx) Social History Tobacco [...] pancreatitis documented in this encounter Care Teams Children Teacher Relationship Specialty Start Date End Date Thao Dove MD PCP - General 03/14/19 documented as of this encounter
--- OUTSIDE RECORDS SUMMARY | 2024-07-02 03:56 | XMS_ITS | Encounter Summary ---
Author Organization [facility] Healthcare Address [address] [place] [address] Care Team Providers Care Dye Tank Tender Name Role Phone Thao Dove MD Primary Care Provider Encounter Details Date Type Department Care Team (Late st Contact Info) Description 05/03/2019 Telephone [facility] Radiology [address] [address] Carmen Hendrix RN Social History Tobacco Use Types Packs/Day [...] on filedocumented in this encounter Care Teams Dye Tank Tender Relationship Specialty Start Date End Date Thao Dove MD PCP - General 03/14/19 documented as of this encounter
--- OUTSIDE RECORDS SUMMARY | 2024-07-02 03:56 | XMS_ITS | Encounter Summary ---
Author Organization [facility] Facility Care Team Providers Care Sales Service Promoter Name Role Phone Thao Dove MD Primary Care Provider Encounter Details Date Type Department Care Team (Latest Contact Info) Description 04/19/2019 Travel Social History Tobacco Use Types Packs/Day [...] filedocumented in this encounter Care Teams Sales Service Promoter Relationship Specialty Start Date End Date Thao Dove MD PCP - General 03/14/19 documented as of this encounter
--- OUTSIDE RECORDS SUMMARY | 2024-07-02 03:56 | XMS_ITS | Encounter Summary ---
Author Organization [facility] Address [address] [place] [id number] Care Team Providers Care Etl Architect Name Role Phone Thao Dove MD Primary Care Provider Reason for Referral * Diagnostic Imaging (Routine) - Closed Specialty Diagnoses / Procedures Referred By Contac t Referred To Contact Radiology Diagnoses Pancreatitis, necrotizing Procedures IR Inject Abscess Catheter Toy Fish MD Phone: tel: fax: [address] [phone] Referral ID Status Reason Start Date Expiration Date Visits Re quested Visits Authorized [id number] Closed 05/26/2019 12/04/2020 1 1 ATIONS ACCOUNTANT * Diagnostic Imaging (Routine) - Closed Specialty Diagnoses / Procedures Referred By Contac t Referred To Contact Radiology Diagnoses Pancreatitis, necrotizing Procedures IR Inject Abscess Catheter Toy Fish MD Phone: tel: fax: [address] [phone] Referral ID Status Reason Start Date Expiration Date Visits Re quested Visits Authorized [id number] Closed 05/05/2019 11/13/2020 1 1 ATIONS ACCOUNTANT Reason for Visit * Diagnostic Imaging (Routine) - Closed Specialty Diagnoses / Procedures Referred By Contac t Referred To Contact Radiology Diagnoses Pancreatitis, necrotizing Procedures IR Inject Abscess Catheter Toy Fish MD Phone: tel: fax: [address] [phone] Referral ID Status Reason Start Date Expiration Date Visits Re quested Visits Authorized [id number] Closed 05/05/2019 11/13/2020 1 1 Encounter Details Date Type Department Care Team (Late st Contact Info) Description 05/26/2019 12:45 PM OPERATIONS ACCOUNTANT - 05/26/2019 3:14 PM OPERATIONS ACCOUNTANT Hospital Encounter [facility] Radiology [facility] [place] [address] [place] [address] Toy Fish MD [address] [address] Timothy Teixeira MD [address] [id number] Pancreatitis, necrotizing Discharge Disposition: Discharge to home [...] Sign Reading Time Taken Comments Blood Pressure 137/94 05/26/2019 3:05 PM OPERATIONS ACCOUNTANT Pulse 96 05/26/2019 3:05 PM OPERATIONS ACCOUNTANT Temperature 36 ??C (96.8 ??F) 05/26/2019 3:05 PM OPERATIONS ACCOUNTANT Respiratory Rate 14 05/26/2019 1:01 PM OPERATIONS ACCOUNTANT Oxygen Saturation 98% 05/26/2019 3:05 PM OPERATIONS ACCOUNTANT Inhaled Oxygen Concentration - - Weight - - Height - - Body Mass Index - - documented in this encounter Discharge Diagnoses Diagnosis Encounter for change or removal of drains - ENCOUNTER FOR CHANGE OR REMOVAL OF DRAINS Other specified aftercare following surgery Acute pancreatitis with uninfected necrosis, unspecified - ACUTE PANCREATITIS WITH UNINFECTED NECROSIS, UNSPECIFIED Other specified diseases of pancreas - OTHER SPECIFIED DISEASES OF PANCREAS documented in this encounter Discharge Instructions * Discharge Instructions* Chad Hartman MD - 05/26/2019 2:59 PM OPERATIONS ACCOUNTANT Interventional Radiology Outpatient Discharge Instructions/Note Diagnosis: Peripancreatic fluid collection Procedure: Drain check and downsizing Limitations: [] No lifting greater than 5 [...] [] You may bathe or shower tomorrow. [] Change the dressing daily and if it [...] draining. To contact an Interventional Radiologist at [facility] call [phone] Wednesday through Wednesday from 7:30am-4:30pm. At all other times call [phone] and ask that the Interventional Radiologist be paged. To contact an Interventional Radiologist at [facility] call [phone] Wednesday through Wednesday from 7:30am-3:30pm. Special instructions: Please call Interventional Radiology for any procedure related questions or problems including: ?? Extreme swelling or bruising at the site. ?? Unusual drainage or bleeding from procedure site. ?? Fever of 101.5 F for more than 24 hours. ?? Severe procedure related pain. Follow up care: [] Return to Interventional Radiology on at Please come to: [] 3rd Floor [facility] [] 4th floor [facility] [] [facility] [] [facility] Please call [phone] to schedule a follow up appointment. You need to return in ATIONS ACCOUNTANT documented in this encounter Medications at Time [...] the skin daily 30 patch 03/22/2019 06/16/2019 thiamine (VITAMIN B1) 100 mg tablet Take 1 tablet (100 mg total) by mouth daily 30 tablet 1 03/22/2019 09/28/2019 documented as of this encounter Discharge Disposition Disposition Code Departure Means Destination Discharge to home or self care documented in this encounter Nursing Notes * Renata Henry RN - 05/26/2019 2:09 PM CST Pt arrived to room. Pt assisted to table without difficulty. Safety precautions initiated. Comfort measures in place. ATIONS ACCOUNTANT documented in this encounter Miscellaneous Notes * Post-Procedure Note - Chad Hartman MD - 05/26/2019 2:56 PM CST Radiology Brief Post Procedure Note Attending: Lluvia Mercantile Agent: Minnie Sedation/Anesthesia: Local Pre-Op/Pre-Procedure Diagnosis: Peripancreatic fluid collection Post-Op/Post-Procedure Diagnosis: Decrease in size of peripancreatic fluid collection Procedure Performed: Drain check fin downsizing. Procedure Findings: The finger pancreatic fluid collection was nearly resolved. 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 The 16 American drainage catheter was downsized to a 14 American Noel Canseco to facilitate drainage and resolution of the collection. Complications: None Estimated Blood Loss: None Specimens: None Condition: Stable Full report to follow. ATIONS ACCOUNTANT * Pre-Procedure Note - Chad Hartman MD - 05/26/2019 1:10 PM CST Radiology Procedure Plan Indication: Necrotizing pancreatitis with peripancreatic fluid collection Planned Procedure: 16 American peripancreatic drain for necrotizing pancreatitis peripancreatic fluidcollection with 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 Will perform drain check and possible change today. Patient has been scheduled for ERCP as per findings on epic. ATIONS ACCOUNTANT documented in this encounter Plan of Treatment Not on file documented as of this encounter Procedures Procedure Name Priority Date/Time Associated Diagnosis Comments ABSCESS CATHETER INJECTION Schedule Routine, Read Routine (OP Routine) 05/26/2019 2:57 PM OPERATIONS ACCOUNTANT Pancreatitis, necrotizing documented in this encounter Results * IR Inject Abscess Catheter (06/16/2019 2:44 PM OPERATIONS ACCOUNTANT) Anatomical Region Laterality Modality Body N/A Radio Fluoroscop y 06/16/2019 2:48 PM OPERATIONS ACCOUNTANT Impressions 06/16/2019 5:34 PM OPERATIONS ACCOUNTANT Resolved peripancreatic fluid collection no persistent fistula to the pancreatic duct. ??The catheter was removed. If questions arise, please contact us by calling [phone]. Dictated by: Zenia Saalzar M.D. The radiology attending physician has personally reviewed this study, and had reviewed and/or edited this written report and agrees with it. Electronically signed by: Li Nascimento M.D. Narrative 06/16/2019 5:34 PM OPERATIONS ACCOUNTANT EXAMINATION: ??DRAINAGE CATHETER EVALUATION AND REMOVAL HISTORY: ??39-year-old woman with necrotizing pancreatitis complicated by a peripancreatic fluid collection, which has been managed by percutaneous drain. ATTENDING PRESENCE: ??Li Nascimento M.D., the attending radiologist, was present from the beginning to the end of the procedure. SEDATION: ??Local anesthesia only TECHNIQUE: Prior to beginning the procedure, [place] Protocol was used to confirm the patient's identity and planned procedure. Fluoroscopy time has been recorded in the electronic medical record. After obtaining a casino operations supervisor image, the catheter was injected with dilute [...] only TECHNIQUE: Prior to beginning the procedure, [place] Protocol was used to confirm the patient's identity and planned procedure. Fluoroscopy time has been recorded in the electronic medical record. After obtaining a casino operations supervisor image, the catheter was injected with dilute [...] questions arise, please contact us by calling [phone]. Dictated by: Zenia Salazar M.D. The radiology attending physician has personally reviewed this study, and had reviewed and/or edited this written report and agrees with it. Electronically signed by: Li Nascimento M.D. us Toy Fish MD IMG IR PROCEDURES Final Resul t * IR Inject Abscess Catheter (05/26/2019 2:57 PM OPERATIONS ACCOUNTANT) Anatomical Region Laterality Modality Body N/A X-Ray Angiograph y 05/26/2019 3:24 PM OPERATIONS ACCOUNTANT Impressions 05/26/2019 6:08 PM OPERATIONS ACCOUNTANT Nearly resolved peripancreatic collection. ?? Catheter was downsized to facilitate drainage and resolution. PLAN: Continue to monitor catheter output as well as the patient's clinical condition. ??The patient is scheduled for an ERCP and drain check and removal on 06/16/2018. ?? The catheter should not be flushed at this time. ?? If questions arise, please contact us by calling [phone]. Dictated by: Chad Hartman M.D. The radiology attending physician has personally reviewed this study, and had reviewed and/or edited this written report and agrees with it. Electronically signed by: Timothy Teixeira M.D. Narrative 05/26/2019 6:08 PM OPERATIONS ACCOUNTANT EXAMINATION: ??DRAINAGE CATHETER EVALUATION AND EXCHANGE HISTORY: [...] procedure. TECHNIQUE: ??Prior to beginning the procedure, [place] Protocol was used to confirm the patient's identity and planned procedure. Fluoroscopy time has been recorded in the electronic medical record. Maximum sterile barriers including cap, mask, hand hygiene, sterile gloves, sterile gown, large sterile drape and 2% chlorhexidine for cutaneous antisepsis were used. After obtaining a casino operations supervisor image, the catheter was injected with dilute contrast and multiple diagnostic fluoroscopic spot images were obtained. The skin overlying the collection was sterilely prepped, draped and infiltrated with 1% buffered lidocaine. The catheter was then exchanged over a Organizer guidewire for a new 14-American Noel-Canseco catheter. ??Limited contrast injection confirmed appropriate [...] procedure. TECHNIQUE: Prior to beginning the procedure, [place] Protocol was used to confirm the patient's identity and planned procedure. Fluoroscopy time has been recorded in the electronic medical record. Maximum sterile barriers including cap, mask, hand hygiene, sterile gloves, sterile gown, large sterile drape and 2% chlorhexidine for cutaneous antisepsis were used. After obtaining a casino operations supervisor image, the catheter was injected with dilute contrast and multiple diagnostic fluoroscopic spot images were obtained. The skin overlying the collection was sterilely prepped, draped and infiltrated with 1% buffered lidocaine. The catheter was then exchanged over a Organizer guidewire for a new 14-American Noel-Canseco catheter. Limited contrast injection confirmed appropriate [...] questions arise, please contact us by calling [phone]. Dictated by: Chad Hartman M.D. The radiology attending physician has personally reviewed this study, and had reviewed and/or edited this written report and agrees with it. Electronically signed by: Timothy Teixeira M.D. Toy Fish MD IMG IR PROCEDURES Final Resul t documented in this encounter Visit Diagnoses Diagnosis Pancreatitis, necrotizing Acute pancreatitis Pancreatitis, necrotizing Acute pancreatitis documented in this encounter Administered Medications Inactive Administered Medications - up to 3 most recent administrations Medication Order MAR Action Action Date Dose Rate Site lidocaine PF (XYLOCAINE) 10 mg/mL (1 %) preservative free injection Code/trauma/sedation medication, Starting on Wed05/26/19 at 1439, Intra-Procedure (IR), Indications: Administration of Local AnesthesiaIndications:Admini stration of Local Anesthesia Given 05/26/2019 2:39 PM OPERATIONS ACCOUNTANT 7 mL Abdominal Tissue documented in this encounter Discontinued Medications Medication Sig Discontinue Reason Start Date End Da te oxyCODONE (ROXICODONE) 5 mg immediate release tabletIndications:Pain Take 1 tablet (5 mg total) by mouth every 8 (eight) hours as needed for pain Error 03/21/2019 05/26/2019 documented as of this encounter Active and Recently Administered Medications Times are shown in OPERATIONS ACCOUNTANT. PRN Medication Order 05/24/2019 05/25/2019 05/26/2019 lidocaine PF (XYLOCAINE) 10 mg/mL (1 %) preservative free injection (COMPLETED) Code/trauma/sedation medication, Starting on Wed05/26/19 at 1439, Intra-Procedure (IR), Indications: Administration of Local Anesthesia 1439 (Given - Provid er: Chad Hartman MD) documented in this encounter Orders Medications Ordered That Jamil ht Not Have Been Administered Count Last Ordered Date First Ordered Date lidocaine PF (XYLOCAINE) 10 mg/mL (1 %) preservative free injection 1 05/26/2019 documented in this encounter Care Teams Etl Architect Relationship Specialty Start Date End Date Thao Dove MD PCP - General 03/14/19 documented as of this encounter
--- OUTSIDE RECORDS SUMMARY | 2024-07-02 03:56 | XMS_ITS | Encounter Summary ---
Author Organization [facility] Address [address] [place] [address] Phone Care Team Providers Care Forge Shop Supervisor Name Role Phone Thao Dove MD Primary Care Provider Encounter Details Date Type Department Care Team (Late st Contact Info) Description 06/20/[address] [facility] Gastroenterology [address] [place] [address] 8th [place] [address] [place] [address] RN Social History [...] Telephone Encounter - Maliha Street RN - 06/20/2019 10:13 AM CORE SETTER LMOM to schedule. ----- Message from Toy Higuera MD sent at 06/17/2019 12:21 PM CORE SETTER ----- Please arrange ROV for 2 months. Thanks. SETTER SETTER documented in this encounter Plan of Treatment Not on file documented as of this encounter Visit Diagnoses Not on filedocumented in this encounter Care Teams Forge Shop Supervisor Relationship Specialty Start Date End Date Thao Dove MD PCP - General 03/14/19 documented as of this encounter
--- OUTSIDE RECORDS SUMMARY | 2024-07-02 03:56 | XMS_ITS | Encounter Summary ---
Author Organization [facility] Address [address] [place] [address] Phone Care Team Providers Care Clerical Investigator Name Role Phone Thoa Dove MD Primary Care Provider Encounter Details Date Type Department Care Team (Late st Contact Info) Description 04/20/2019 Telephone [facility] Gastroenterology [address] [facility] [address] [place] [address] Gina Diego Social History Tobacco Use Types Packs/Day Years [...] encounter Miscellaneous Notes * Telephone Encounter - Gina Diego - 04/20/2019 1:17 PM CST Patient called to cancel and reschedule apt. Advised patient we do not take her insurance and she will call back if she wants to self-pay. DESIGN INTERN documented in this encounter Plan of Treatment Not on file documented as of this encounter Visit Diagnoses Not on filedocumented in this encounter Care Teams Clerical Investigator Relationship Specialty Start Date End Date Thao Dove MD PCP - General 03/14/19 documented as of this encounter
--- OUTSIDE RECORDS SUMMARY | 2024-07-02 03:56 | XMS_ITS | Encounter Summary ---
Author Organization [facility] Address [address] [place] [address] Care Team Providers Care Tire Bladder Maker Name Role Phone Thao Dove MD Primary Care Provider Encounter Details Date Type Department Care Team (Late st Contact Info) Description 06/12/2019 Telephone [facility] Radiology [address] [place] [address] Renata Henry RN Social History Tobacco Use Types Packs/Day [...] Telephone Encounter - Renata Henry RN - 06/12/2019 4:49 PM FEE CLERK No answer CLERK documented in this encounter Plan of Treatment Not on file documented as of this encounter Visit Diagnoses Not on filedocumented in this encounter Care Teams Tire Bladder Maker Relationship Specialty Start Date End Date Thao Dove MD PCP - General 03/14/19 documented as of this encounter
--- OUTSIDE RECORDS SUMMARY | 2024-07-02 03:56 | XMS_ITS | Encounter Summary ---
Author Organization [facility] Address [address] [place] [address] Phone Care Team Providers Care Laser Printing Operator Name Role Phone Thao Dove MD Primary Care Provider Encounter Details Date Type Department Care Team (Late st Contact Info) Description 05/24/2019 Telephone [facility] Gastroenterology [address] [place] [address] 8th [place] [address] [place] [address], RN Social History Tobacco Use Types Packs/Day [...] Telephone Encounter - Maliha Street RN - 05/24/2019 12:31 PM MANAGEMENT REP LMOM to see if the patient received my message yesterday. We do not have auth for her CT scheduled for today. Pt also has an IOV scheduled, and I wanted to see if she was still planning on coming in. GEMENT REP documented in this encounter Plan of Treatment Not on file documented as of this encounter Visit Diagnoses Not on filedocumented in this encounter Care Teams Laser Printing Operator Relationship Specialty Start Date End Date Thao Dove MD PCP - General 03/14/19 documented as of this encounter
--- OUTSIDE RECORDS SUMMARY | 2024-07-02 03:56 | XMS_ITS | Encounter Summary ---
Author Organization Formerly [facility] Address [address] [place] [address] Care Team Providers Care Seed Laboratory Technician Name Role Phone Thao Dove MD Primary Care Provider Reason for Referral * Diagnostic Imaging (Routine) - Closed Specialty Diagnoses / Procedures Referred By Contac t Referred To Contact Radiology Diagnoses Pancreatitis, necrotizing Procedures IR Inject Abscess Catheter Marisa Santillan PA Phone: tel: fax: [address] [phone] Referral ID Status Reason Start Date Expiration Date Visits Re quested Visits Authorized [id number] Closed 04/19/2019 10/28/2020 1 1 HER ALLOY * Diagnostic Imaging (Routine) - Closed Specialty Diagnoses / Procedures Referred By Contac t Referred To Contact Radiology Diagnoses Pancreatitis, necrotizing Procedures IR Inject Abscess Catheter Toy Fish MD Phone: tel: fax: [address] [phone] Referral ID Status Reason Start Date Expiration Date Visits Re quested Visits Authorized [id number] Closed 04/07/2019 10/16/2020 1 1 HER ALLOY Reason for Visit * Diagnostic Imaging (Routine) - Closed Specialty Diagnoses / Procedures Referred By Contac t Referred To Contact Radiology Diagnoses Pancreatitis, necrotizing Procedures IR Inject Abscess Catheter Toy Fish MD Phone: tel: fax: [address] [phone] Referral ID Status Reason Start Date Expiration Date Visits Re quested Visits Authorized [id number] Closed 04/07/2019 10/16/2020 1 1 Encounter Details Date Type Department Care Team (Late st Contact Info) Description 04/19/2019 8:06 AM WEIGHER ALLOY - 04/19/2019 9:22 AM WEIGHER ALLOY Hospital Encounter [facility] Radiology [facility] [place] [address] [place] [address] PicusToy MD [address] [facility] [address] [place] [address] Pancreatitis, necrotizing Discharge Disposition: Discharge to home [...] Sign Reading Time Taken Comments Blood Pressure 131/90 04/19/2019 8:17 AM WEIGHER ALLOY Pulse 65 04/19/2019 9:10 AM WEIGHER ALLOY Temperature 36.1 ??C (97 ??F) 04/19/2019 9:10 AM WEIGHER ALLOY Respiratory Rate 18 04/19/2019 9:10 AM WEIGHER ALLOY Oxygen Saturation 100% 04/19/2019 9:10 AM WEIGHER ALLOY Inhaled Oxygen Concentration - - Weight - - Height - - Body Mass Index - - documented in this encounter Discharge Diagnoses Diagnosis Encounter for fitting and adjustment of non-vascular catheter - ENCOUNTER FOR FITTING AND ADJUSTMENT OF NON-VASCULAR CATHETER Acute pancreatitis with uninfected necrosis, unspecified - ACUTE PANCREATITIS WITH UNINFECTED NECROSIS, UNSPECIFIED documented in this encounter Discharge Instructions * Discharge Instructions* Marisa Santillan PA - 04/19/2019 9:13 AM WEIGHER ALLOY Interventional Radiology Outpatient Discharge Instructions/Note Diagnosis: Abscess drain Procedure: Abscess drain evaluation and exchange Limitations: [] No lifting greater than 5 [...] site clean and dry. [x] You may shower tomorrow. [x] Change the dressing daily and if it becomes wet or dirty. [] Cover entire area with plastic and tape down edges before showering to keep site clean and dry. [] The suture at your dialysis access site may be removed by the dialysis staff on ___/___/___ (date). Drainage Tube Care: [x] Do not Flush tube with [] 5ml Normal Saline [...] draining. To contact an Interventional Radiologist at [facility] call [phone] Wednesday through Wednesday from 7:30am-4:30pm. At all other times call [phone] and ask that the Interventional Radiologist be paged. To contact an Interventional Radiologist at [facility] call [phone] Wednesday through Wednesday from 7:30am-3:30pm. Special instructions: Please call Interventional Radiology for any procedure related questions or problems including: ?? Extreme swelling or bruising at the site. ?? Unusual drainage or bleeding from procedure site. ?? Fever of 101.5 F for more than 24 hours. ?? Severe procedure related pain. Follow up care: [x] Return to Interventional Radiology on 2 weeks at Please come to: [x] 3rd Floor [facility] [] 4th floor [facility] [] [facility] [] [facility] Please call [phone] to schedule a follow up appointment. You need to return in HER ALLOY documented in this encounter Medications at Time [...] documented in this encounter Nursing Notes * Heaven Canseco RN - 04/19/2019 8:35 AM CST Drain injected. Appears to be clogged. Preparing to place new drain HER ALLOY documented in this encounter Miscellaneous Notes * Post-Procedure Note - Marisa Santillan PA - 04/19/2019 9:11 AM WEIGHER ALLOY Radiology Brief Post Procedure Note Attending: Carmen Carr M.D. Product Inspection Supervisor: Marisa Santillan PA-C Sedation/Anesthesia: Local Pre-Op/Pre-Procedure Diagnosis: Abscess drain Post-Op/Post-Procedure Diagnosis: Abscess drain Procedure Performed: Abscess drain evaluation and exchange Procedure Findings: Abscess drain evaluation and exchange Complications: None Estimated Blood Loss: < 30 ml Specimens: None Condition: Stable Full report to follow. 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 ?? PLAN: Continue to monitor catheter output as well as the patient's clinical condition. The catheter should not be flushed. ?? The patient's doctor of chiropractic was notified via email in order to [...] questions arise, please contact us by calling [phone]. Dictated by: Rafa Olson M.D. The radiology attending physician has personally reviewed this study, and had reviewed and/or edited this written report and agrees with it. Electronically signed by: Lorena Link M.D. Narrative 05/05/2019 7:30 PM WEIGHER ALLOY EXAMINATION: ??DRAINAGE CATHETER EVALUATION HISTORY: ??39-year-old female with necrotizing pancreatitis and a roddy-pancreatic fluid collection which is currently being managed with a 16-Chinese cope loop abscess drainage catheter placed on 03/17/2019. The catheter was last exchanged on 04/19/19 for a new 16-Chinese cope loop catheter. ATTENDING PRESENCE: ??Lorena Link M.D., the attending radiologist, was present from the beginning to the end of the procedure. SEDATION: ??None TECHNIQUE: Prior to beginning the procedure, [place] Protocol was used to confirm the patient's identity and planned procedure. Fluoroscopy time has been recorded in the electronic medical record. After obtaining a hand assembler image, the catheter was injected with dilute [...] which is currently being managed with a 16-Chinese cope loop abscess drainage catheter placed on 03/17/2019. The catheter was last exchanged on 04/19/19 for a new 16-Chinese cope loop catheter. ATTENDING PRESENCE: Lorena Link M.D., the attending radiologist, was present from the beginning to the end of the procedure. SEDATION: None TECHNIQUE: Prior to beginning the procedure, [place] Protocol was used to confirm the patient's identity and planned procedure. Fluoroscopy time has been recorded in the electronic medical record. After obtaining a hand assembler image, the catheter was injected with dilute [...] catheter should not be flushed. The patient's doctor of chiropractic was notified via email in order to [...] questions arise, please contact us by calling [phone]. Dictated by: Rafa lOson M.D. The radiology attending physician has personally reviewed this study, and had reviewed and/or edited this written report and agrees with it. Electronically signed by: Lorena Link M.D. us Marisa CELAYA IMG IR PROCEDURES Linda l Result * IR Inject Abscess Catheter (04/19/2019 9:10 AM WEIGHER ALLOY) Anatomical Region Laterality Modality Body N/A Ultrasound 04/19/2019 1:08 PM WEIGHER ALLOY Impressions 04/19/2019 2:53 PM WEIGHER ALLOY Improving collection overall however imaging demonstrates a narrowing of the central pancreatic duct. ?? Catheter was exchanged to facilitate drainage and resolution. PLAN: Continue to monitor catheter output as well as the patient's clinical condition. ?? The catheter should not be flushed. ?? The patient will follow-up with us in ??2 weeks. ??Attention to the pancreatic duct is encouraged. ??If the narrowing persists, pancreatic duct stenting may be needed to encouraged physiologic drainage of the tail of the pancreas to the duodenum. If questions arise, please contact us by calling [phone]. Dictated by: Marisa Santillan The radiology attending physician has personally reviewed this study, and had reviewed and/or edited this written report and agrees with it. Electronically signed by: Carmen Carr M.D. Narrative 04/19/2019 2:53 PM WEIGHER ALLOY EXAMINATION: ??DRAINAGE CATHETER EVALUATION AND EXCHANGE HISTORY: ??39-year-old female with necrotizing pancreatitis and a roddy-pancreatic fluid collection which is currently being managed with a 16-Chinese cope loop abscess drainage catheter which was placed on 03/17/2019. ??Most recent drain interrogation was 04/07/2019. Patient reports approximately 50 to 70 mL of drainage a day. ATTENDING PRESENCE: ??Carmen Carr M.D., the attending radiologist, was present from the beginning to the end of the procedure. SEDATION: ??The patient did not require conscious sedation for the procedure. TECHNIQUE: ??Prior to beginning the procedure, [place] Protocol was used to confirm the patient's identity and planned procedure. Fluoroscopy time has been recorded in the electronic medical record. Maximum sterile barriers including cap, mask, hand hygiene, sterile gloves, sterile gown, large sterile drape and 2% chlorhexidine for cutaneous antisepsis were used. After obtaining a hand assembler image, the catheter was injected with dilute contrast and multiple diagnostic fluoroscopic spot images were obtained. The skin overlying the collection was sterilely prepped, draped and infiltrated with 1% lidocaine. The catheter was then exchanged over a [employer] guidewire for a new 16-Chinese cope loop catheter. ??Limited contrast injection confirmed appropriate placement of the catheter. The catheter was secured in place with a Prolene stitch and connected to gravity drainage. ??A sterile dressing was applied. ESTIMATED BLOOD LOSS: Minimal. CONDITION: Stable DISCHARGED TO: ??Recovery and then to Home. FINDINGS: ??Images from the catheter injection demonstrate the cavity has slightly decreased and matured since prior examination. The catheter was draining light cloudy yellow fluid. Images from the catheter exchange show the catheter tip centered in the remaining fluid collection. ??Images from the catheter exchange also show a narrowing of the central pancreatic duct near the duodenum. Procedure Note Carmen Carr MD - 04/19/2019 EXAMINATION: DRAINAGE CATHETER EVALUATION AND EXCHANGE HISTORY: 39-year-old female with necrotizing pancreatitis and a roddy-pancreatic fluid collection which is currently being managed with a 16-Chinese cope loop abscess drainage catheter which was placed on 03/17/2019. Most recent drain interrogation was 04/07/2019. Patient reports approximately 50 to 70 mL of drainage a day. ATTENDING PRESENCE: Carmen Carr M.D., the attending radiologist, was present from the beginning to the end of the procedure. SEDATION: The patient did not require conscious sedation for the procedure. TECHNIQUE: Prior to beginning the procedure, [place] Protocol was used to confirm the patient's identity and planned procedure. Fluoroscopy time has been recorded in the electronic medical record. Maximum sterile barriers including cap, mask, hand hygiene, sterile gloves, sterile gown, large sterile drape and 2% chlorhexidine for cutaneous antisepsis were used. After obtaining a hand assembler image, the catheter was injected with dilute contrast and multiple diagnostic fluoroscopic spot images were obtained. The skin overlying the collection was sterilely prepped, draped and infiltrated with 1% lidocaine. The catheter was then exchanged over a [employer] guidewire for a new 16-Chinese cope loop catheter. Limited contrast injection confirmed appropriate placement of the catheter. The catheter was secured in place with a Prolene stitch and connected to gravity drainage. A sterile dressing was applied. ESTIMATED BLOOD LOSS: Minimal. CONDITION: Stable DISCHARGED TO: Recovery and then to Home. FINDINGS: Images from the catheter injection demonstrate the cavity has slightly decreased and matured since prior examination. The catheter was draining light cloudy yellow fluid. Images from the catheter exchange show the catheter tip centered in the remaining fluid collection. Images from the catheter exchange also show a narrowing of the central pancreatic duct near the duodenum. IMPRESSION: Improving collection overall however imaging demonstrates a narrowing of the central pancreatic duct. Catheter was exchanged to facilitate drainage and resolution. PLAN: Continue to monitor catheter output as well as the patient's clinical condition. The catheter should not be flushed. The patient will follow-up with us in 2 weeks. Attention to the pancreatic duct is encouraged. If the narrowing persists, pancreatic duct stenting may be needed to encouraged physiologic drainage of the tail of the pancreas to the duodenum. If questions arise, please contact us by calling [phone]. Dictated by: Marisa Santillan The radiology attending physician has personally reviewed this study, and had reviewed and/or edited this written report and agrees with it. Electronically signed by: Carmen Carr M.D. Toy Fish MD IMG IR PROCEDURES [...] preservative free injection Code/trauma/sedation medication, Starting on Wed04/19/19 at 0848, Intra-Procedure (IR), Indications: Administration of Local AnesthesiaIndications:Admi nistration of Local Anesthesia Given 04/19/2019 8:48 AM WEIGHER ALLOY 18 mL Left Upper Abdomen documented in this encounter Active and Recently Administered Medications Times are shown in WEIGHER ALLOY. PRN Medication Order 04/17/2019 04/18/2019 04/19/2019 lidocaine PF (XYLOCAINE) 10 mg/mL (1 %) preservative free injection (COMPLETED) Code/trauma/sedation medication, Starting on Wed04/19/19 at 0848, Intra-Procedure (IR), Indications: Administration of Local Anesthesia 0848 (Given - Provid er: YOMI Mari) documented in this encounter Orders Medications Ordered That Jamil ht Not Have Been Administered Count Last Ordered Date First Ordered Date lidocaine PF (XYLOCAINE) 10 mg/mL (1 %) preservative free injection 1 04/19/2019 documented in this encounter Care Teams Seed Laboratory Technician Relationship Specialty Start Date End Date Thao Dove MD PCP - General 03/14/19 documented as of this encounter
--- OUTSIDE RECORDS SUMMARY | 2024-07-02 03:56 | XMS_ITS | Encounter Summary ---
Author Organization [facility] Healthcare Address [address] [place] [address] Care Team Providers Care Mill Machinist Name Role Phone Thao Dove MD Primary Care Provider Encounter Details Date Type Department Care Team (Late st Contact Info) Description 05/03/2019 Telephone [facility] Radiology [address] [address] Carmen Hendrix RN Social History Tobacco Use [...] Miscellaneous Notes * Telephone Encounter - Carmen Hendrix RN - 05/03/2019 2:46 PM RN ENTEROSTOMAL Called to confirm pt's drain check appt for this Wednesday-both numbers listed went to voice mail ENTEROSTOMAL documented in this encounter Plan of Treatment Not on file documented as of this encounter Visit Diagnoses Not on filedocumented in this encounter Care Teams Mill Machinist Relationship Specialty Start Date End Date Thao Dove MD PCP - General 03/14/19 documented as of this encounter
--- OUTSIDE RECORDS SUMMARY | 2024-07-02 03:56 | XMS_ITS | Encounter Summary ---
Author Organization [facility] Facility Care Team Providers Care Door Closer Name Role Phone Thao Dove MD Primary Care Provider Encounter Details Date Type Department Care Team (Latest Contact Info) Description 05/26/2019 Travel Social History Tobacco Use Types Packs/Day [...] on filedocumented in this encounter Care Teams Door Closer Relationship Specialty Start Date End Date Thao Dove MD PCP - General 03/14/19 documented as of this encounter
--- OUTSIDE RECORDS SUMMARY | 2024-07-02 03:56 | XMS_ITS | Encounter Summary ---
Author Organization [facility] Address [address] [place] [address] Phone Care Team Providers Care Cooling Tower Operator Name Role Phone Thao Dove MD Primary Care Provider Encounter Details Date Type Department Care Team (Late st Contact Info) Description 06/19/2019 Telephone [facility] Gastroenterology [address] [place] [address] 8th [place] [address] [place] [address] RN Social History [...] Telephone Encounter - Maliha Street RN - 06/19/2019 9:51 AM CST LMOM to schedule. ----- Message from Toy Higuera MD sent at 06/17/2019 12:21 PM FOREIGN SERVICE TEACHER ----- Please arrange ROV for 2 months. Thanks. IGN SERVICE TEACHER IGN SERVICE TEACHER documented in this encounter Plan of Treatment Not on file documented as of this encounter Visit Diagnoses Not on filedocumented in this encounter Care Teams Cooling Tower Operator Relationship Specialty Start Date End Date Thao Dove MD PCP - General 03/14/19 documented as of this encounter
--- OUTSIDE RECORDS SUMMARY | 2024-07-02 03:56 | XMS_ITS | Encounter Summary ---
Author Organization [facility] Facility Care Team Providers Care Licensed Clinical Psychologist Name Role Phone Thao Dove MD Primary Care Provider Encounter Details Date Type Department Care Team (Latest Contact Info) Description 05/24/2019 Travel Social History Tobacco Use Types Packs/Day [...] on filedocumented in this encounter Care Teams Licensed Clinical Psychologist Relationship Specialty Start Date End Date Thao Dove MD PCP - General 03/14/19 documented as of this encounter
--- OUTSIDE RECORDS SUMMARY | 2024-07-02 03:56 | XMS_ITS | Encounter Summary ---
Author Organization [facility] Healthcare Address [address] [place] [address] Care Team Providers Care Accounting Reconciliation Clerk Name Role Phone Thao Dove MD Primary Care Provider Encounter Details Date Type Department Care Team (Late st Contact Info) Description 05/22/2019 Telephone [facility] Radiology [address] [place] [address] Vera West RN Social History Tobacco Use Types Packs/Day [...] Miscellaneous Notes * Telephone Encounter - Vera West RN - 05/22/2019 4:29 PM CST Unable to reach patient at this time. Attempted to call mobile and home phone. PLACEMENT COUNSELOR documented in this encounter Plan of Treatment Not on file documented as of this encounter Visit Diagnoses Not on filedocumented in this encounter Care Teams Accounting Reconciliation Clerk Relationship Specialty Start Date End Date Thao Dove MD PCP - General 03/14/19 documented as of this encounter
--- OUTSIDE RECORDS SUMMARY | 2024-07-02 03:56 | XMS_ITS | Encounter Summary ---
Author Organization [facility] Address [address] [place] [address] Phone Care Team Providers Care Inspector Plug Seam Name Role Phone Thao Dove MD Primary Care Provider Reason for Visit * Consultation (Routine) - Closed Specialty Diagnoses / Procedures Referred By Contac t Referred To Contact Gastroenterology Diagnoses Necrotizing pancreatitis Thao Dove MD Phone: tel: fax: [facility] (All Locations) Referral ID Status Reason Start Date Expiration Date V isits Requested Visits Authorized [id number] Closed Specialty Services Required 03/22/2019 11/22/2019 99 [phone] Encounter Details Date Type Department Care Team (Late st Contact Info) Description 05/24/2019 2:30 PM SHAFT TENDER Office Visit [facility] Gastroenterology [address] [facility] [address] [place] [id number] Toy Higuera MD [address] [place] [address] Necrotizing pancreatitis Social History Tobacco Use Types Packs/Day Years [...] Sign Reading Time Taken Comments Blood Pressure 126/83 05/24/2019 1:28 PM SHAFT TENDER Pulse 121 05/24/2019 1:28 PM SHAFT TENDER Temperature 36.8 ??C (98.2 ??F) 05/24/2019 1:28 PM CS T Respiratory Rate - - Oxygen Saturation - - Inhaled Oxygen Concentration - - Weight 65.8 kg (145 lb 1.6 oz) 05/24/2019 1:28 P M SHAFT TENDER Height 160 cm (5' 3 ) 05/24/2019 1:28 PM SHAFT TENDER Body Mass Index 25.7 05/24/2019 1:28 PM SHAFT TENDER documented in this encounter Progress Notes * Frandy Barrios MD - 05/24/2019 2:30 PM CST Gastroenterology - Biliary Consult Subjective Patient is a 39 y.o. female with chief complaint of peripancreatic fluid collection with fistula topancreatic duct. Reason for consult: peripancreatic fluid collection with fistula to pancreatic duct Requesting Provider: Dr. Dove HPI: Ms Lott is a 39 yo female with a history of necrotizing pancreatitis c/b peripancreatic fluid collection s/p percutaneous drain, EtOH abuse, HTN, DVT, who presents for evaluation of a peripancreatic fluid collection with fistula to her pancreatic duct. Patient initially hospitalized at an OSH in 12/2018 for acute episode of pancreatitis associated with a peripancreatic fluid collection (WOPN). She was discharged but unfortunately continued to drink.She then presented to [facility] with a recurrent episode of pancreatitis. CT a/p at that time showed findings consistent with necrotic pancreatitis with interval increase in size of the fluid collections. There were also densities in the liver with CBD wall thickening concerning for cholangitis. Biliary was consulted during her admission but felt there was no endoscopic therapy to offer at that time. She was treated with a 2 week course of antibiotics. She also had a percutaneous drain placed for herfluid collection. Cultures at that time were negative. Since discharge the patient reports that she has not had any alcohol. She has followed regularly with IR for management of her drain. Her output has decreased from 200cc daily to 10-15 cc daily. 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 Given this finding the patient was referred here. Apart from this she is doing well. She is eating a regular diet without any pain. She denies nausea, vomiting, diarrhea, fever, chills. Her drain site has no erythema, pain or leakage. Again, she is not drinking any alcohol. She does report that she is smoking about 10 cigarettes daily. Past Medical History: Diagnosis Date ??? DVT (deep venous thrombosis) (CMS/HCC) ??? ETOH abuse ??? Hypertension ??? PONV (postoperative nausea and vomiting) Past Surgical History: Procedure Laterality Date ??? ABSCESS CATHETER INJECTION N/A 03/27/2019 ??? ABSCESS CATHETER INJECTION N/A 04/07/2019 ??? ABSCESS CATHETER INJECTION N/A 04/19/2019 ??? ABSCESS CATHETER INJECTION N/A 05/05/2019 ??? SECTION ??? IMAGE GUIDED DRAINAGE PERITONEAL OR RETROPERITONEAL FLUID COLLECTION N/A 03/17/2019 (Not in a hospital admission) No Known Allergies Social History Tobacco Use ??? Smoking status: Current Every Day Smoker Packs/day: 0.50 Substance Use Topics ??? Alcohol use: Not Currently Comment: None for 20 days Family History Problem Relation Age of Onset ??? Congenital heart disease Mother ??? Diabetes Mother ??? Hypertension Mother ??? Blood Clot Father Social History Socioeconomic History ??? Marital status: Single Spouse name: Not on file ??? Number of children: Not on file ??? Years of education: Not on file ??? Highest education level: Not on file Occupational History ??? Not on file Social Needs ??? Financial resource strain: Not on file ??? Food insecurity: Worry: Not on file Inability: Not on file ??? Transportation needs: Medical: Not on file Non-medical: Not on file Tobacco Use ??? Smoking status: Current Every Day Smoker Packs/day: 0.50 Substance and Sexual Activity ??? Alcohol use: Not Currently Comment: None for 20 days ??? Drug use: Not Currently ??? Sexual activity: Not on file Lifestyle ??? Physical activity: Days per week: Not on file Minutes per session: Not on file ??? Stress: Not on file Relationships ??? Social connections: Talks on phone: Not on file Gets together: Not on file Attends protestant service: Not on file Active member of club or organization: Not on file Attends meetings of clubs or organizations: Not on file Relationship status: Not on file ??? Intimate partner violence: Fear of current or ex partner: Not on file Emotionally abused: Not on file Physically abused: Not on file Forced sexual activity: Not on file Other Topics Concern ??? Not on file Social History Narrative ??? Not on file Review of Systems: As outlined in HPI; also positive as below: Gen: lack of appetite, weight loss HEENT: change in vision Neuro: numbness/tingling Psych: anxiety, depression All other systems are negative Vitals: Most Recent : Vitals BP 126/83 (BP Location: Right arm, Patient Position: Sitting) Pulse 121 Temp 36.8 ??C (98.2 ??F) (Oral) Ht 160 cm (5' 3 ) Wt 65.8 kg (145 lb 1.6 oz) BMI 25.70 kg/m?? Objective Physical Exam: General: pleasant, comfortable, NAD HEENT: NCAT, PERRL, MMM Neck: supple, no LAD CV: RRR, normal S1, S2, no MRG Lung: CTAB, no wheezing or crackles Abdomen: soft, nontender, nondistended without rebound or guarding. Abdominal drain c/d/i draining yellow fluid. No erythema or tenderness No hepatosplenomegaly Skin: no rashes Neuro: A&Ox3, strength and sensation grossly intact Psych: pleasant, appropriate affect Lab/Radiology/Diagnostic Review: Laboratory review: Chemistry CMP: Lab Results Component Value Date ALBUMIN 2.2 (L) 03/20/2019 BUNSER <2 (L) 03/20/2019 CALCIUM 9.5 03/20/2019 CO2 26 03/20/2019 CHLORIDE 101 03/20/2019 CREATININE 0.46 (L) 03/20/2019 GLUCOSE 122 03/20/2019 POTASSIUM 4.1 03/20/2019 SODIUM 135 03/20/2019 BILITOT 2.2 (H) 03/20/2019 PROT 6.4 (L) 03/20/2019 ALT 29 03/20/2019 AST 98 (H) 03/20/2019 ALKPHOS 171 (H) 03/20/2019 and CBC: Lab Results Component Value Date WBC 7.2 03/20/2019 RBC 3.03 (L) 03/20/2019 HGB 10.6 (L) 03/20/2019 HCT 32.9 (L) 03/20/2019 MCV 108.6 (H) 03/20/2019 MCH 35.0 (H) 03/20/2019 MCHC 32.2 (L) 03/20/2019 RDWCV 17.6 (H) 03/20/2019 RDWSD 70.4 (H) 03/20/2019 MPV 9.8 03/20/2019 NRBCABS 0.00 03/20/2019 IR abscess catheter injection 05/05/2019 IMPRESSION: Stable roddy-pancreatic collection with 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 Plan Ms Lott is a 39 yo female with a history of necrotizing pancreatitis c/b peripancreatic fluid collection s/p percutaneous drain, EtOH abuse, HTN, DVT, who presents for evaluation of a peripancreatic fluid collection with fistula to her pancreatic duct. 1. Acute pancreatitis with peripancreatic fluid collection with fistula to pancreatic duct: overallthe patient is doing well today. She is eating a regular diet without pain and weight is stable. Nosymptoms to suggestive exocrine or endocrine pancreatic insufficiency. Her drain is only putting out 10-15cc daily. Unfortunately imaging reveals fistula from fluid collection to pancreatic duct. Because of this she will likely continue to have pancreatic leak if drain is pulled. She will require an ERCP with pancreatic duct stenting to try and allow fistula to close. In addition, it would be beneficial to obtain a CT a/p. However, we have been unable to do this because of insurance. -Will plan for ERCP -Will try and obtain insurance approval for CT a/p -Continue low fat diet -EtOH abstinence -Encouraged complete tobacco cessation Cosigned by Toy Higuera MD at 05/24/2019 3:52 PM SHAFT TENDER T TENDER T TENDER Associated attestation - Toy Higuera MD - 05/24/2019 3:52 PM SHAFT TENDER I have seen and examined the patient. I agree with the findings and plan of care as documented in the resident/fellow's note. documented in this encounter Plan of Treatment Not on file documented as of this encounter Visit Diagnoses Diagnosis Necrotizing pancreatitis Acute pancreatitis documented in this encounter Orders Outpatient Referral Count Last Ordered Date Fir st Ordered Date AMB REFERRAL TO GASTROENTEROLOGY 1 05/24/20 19 Case Request Count Last Ordered Date First Orde red Date CASE REQUEST GI 1 05/24/2019 documented in this encounter Care Teams Inspector Plug Seam Relationship Specialty Start Date End Date Thao Dove MD PCP - General 03/14/19 documented as of this encounter
--- OUTSIDE RECORDS SUMMARY | 2024-07-02 03:56 | XMS_ITS | Encounter Summary ---
Author Organization [facility] Address [address] [place] [address] Care Team Providers Care Communication Assistant Name Role Phone Thao Dove MD Primary Care Provider Encounter Details Date Type Department Care Team (Late st Contact Info) Description 06/16/2019 7:29 AM TOUCH UP WORKER Anesthesia Event [facility] [address] [place] [address] Marisol Jain MD [address] [place] [address] Anesthesia Record Procedure Summary Procedure Name Responsible Anesthesiologist Anesthesia Start Time Anesthesia Stop Time ERCP Marisol Jain MD 06/16/19 0729 08/31 0818 Events Date Time Event Comment 06/16/2019 0717 0729 An Start 0729 In Room 0729 An Start Data 0734 Start Supplemental O2 0734 An Data Art 0734 Patient Positioned Prone 0735 An Induction The patient was reevaluated immediately before moderate or deep sedation use and before anesthesia induction. 0735 Bite Block Placed 0735 Anesthesia Ready 0739 Proc Start 0805 Proc Fin 0814 Out of Room 0818 an stop data 0818 An Stop 0819 Handoff to RN I completed my handoff [...] at the time of handoff: phase II 0849 Release from care Meds Name Total midazolam PF 2 mg lidocaine 1 % PF 100 mg propofol 150 mg propofol 365.19 mg fentaNYL 100 mcg ondansetron PF (ZOFRAN) 2 mg/mL injectio n 4 mg glucagon 0.5 mg dexamethasone 4 mg/ml 4 mg Lactated Ringer's (LR) infusion 1,100 mL * Agents Name O2% N2O O2 * Blood No blood administrations on file. Lines, Drains, and Airways Type Details Placement Removal Closed/Suction/Open Drain 05/26/19; 1447; Left; LUQ; Other (Comment) (merit); 14 Fr.; Therapy complete 05/26/19 1447 by Renata Henry RN 06/16/19 1437 by Carmen Louis, SINA Peripheral IV Placement Date: 06/16/19; Placement Time: 07; Catheter Size: 20 G; Orientation: Right; Location: Forearm; Site Prep: Chlorhexidine; Technique: Anatomical landmarks; Inserted by: Sandy Bowie RN; Insertion Attempts: 1; Patient Tolerance: Tolerated well; Removal Date: 06/16/19; Removal Time: 1438; Removal Reason: Therapy completed 06/16/19 0708 by Haydee Gloria RN 06/16/19 1438 by Carmen Louis RN documented in this encounter Social History [...] OR Notes * Anesthesia Postprocedure Evaluation - Rosa Maria Astorga MLT - 06/16/2019 8:48 AM CST Patient: Marisa Lott Procedure Summary Date: 06/16/19 Room / Location: [facility] ROOM 2 / [facility] Anesthesia Start: 728 Anesthesia Stop: 817 Procedures: ERCP (N/A ) Rad S And I Biliary And Pancreatic Ductal Systems Diagnosis: Necrotizing pancreatitis (Necrotizing pancreatitis [K85.91]) Provider: Toy Higuera MD Responsible Provider: Marisol Jain MD Anesthesia Type: MAC ASA Status: 3 Anesthesia Type: MAC Last vitals BP 111/81 (Patient Position: Lying) Pulse 79 Temp 36 ??C (96.8 ??F) (Temporal) Resp 13 [id number]% Anesthesia Post Evaluation Patient location during evaluation: PACU Patient participation: complete - patient participated Level of consciousness: fully awake Pain score: 0 Pain management: adequate Airway patency: adequate Anesthetic complications: no Cardiovascular status: acceptable and hemodynamically stable Respiratory status: acceptable and room air Hydration status: acceptable Pt is: normothermic Nausea/Vomiting status: none Cosigned by Marisol Jain MD at 06/16/2019 9:09 AM TOUCH UP WORKER H UP WORKER H UP WORKER * Anesthesia Preprocedure Evaluation - Rosa Maria Astorga MLT - 06/16/2019 7:15 AM CST Images from the original note were not included. Anesthesia Evaluation Marisa Lott is a 39 y.o. female Procedure(s): ERCP Pre-Op Diagnosis Codes: * Necrotizing pancreatitis [K85.91] Patient Active Problem List Diagnosis ??? ETOH abuse ??? Pancreatitis, necrotizing ??? Hyperglycemia ??? History of DVT (deep vein thrombosis) ??? Fever ??? Necrotizing pancreatitis Past Medical History: Diagnosis Date ??? Anxiety [...] ??? ABSCESS CATHETER INJECTION N/A 05/26/2019 ??? SECTION ??? IMAGE GUIDED DRAINAGE PERITONEAL OR RETROPERITONEAL FLUID COLLECTION N/A 03/17/2019 OB History No obstetric history on file. No Known Allergies Taking? Last Dose Start Date End Date Provider escitalopram (LEXAPRO) 10 mg tablet 06/15/2019 06/01/19 -- Historical Provider, folic acid (FOLVITE) 1 mg tablet 06/15/2019 03/22/19 03/21/20 Trish Caballero MD Take 1 tablet (1 mg total) by mouth daily hydrOXYzine (ATARAX) 25 mg tablet 06/15/2019 06/01/19 -- Historical Provider, thiamine (VITAMIN B1) 100 mg tablet 06/15/2019 03/22/19 03/21/20 Trish Caballero MD Take 1 tablet (100 mg total) by mouth daily Current Facility-Administered Medications: ??? Lactated Ringer's (LR) infusion, 30 mL/hr, intravenous, Continuous, Last Rate: 30 mL/hr at 06/16/19 0709, 30 mL/hr at 06/16/19 0709 ??? sodium chloride 0.9% flush 0.5-20 mL, 0.5-20 mL, intra-catheter, PRN Social History Tobacco Use Smoking Status Current Every Day Smoker ??? Packs/day: 0.50 Smokeless Tobacco Never Used Substance and Sexual Activity Alcohol Use Not Currently Comment: None for 20 days Substance and Sexual Activity Drug Use Not Currently Family History Problem Relation Age of Onset ??? Congenital heart disease Mother ??? Diabetes Mother ??? Hypertension Mother ??? Blood Clot Father Vitals: 06/16/19 0708 BP: 114/81 Pulse: 90 Resp: 17 Temp: 36.3 ??C (97.3 ??F) SpO2: 98% PT: No results found for requested labs [...] for requested labs within last 720 hours. DOS Physical Exam Medical history, medications, and allergies reviewed. Attestation: With today's edits, I endorse the findings of the procedural assessment dated: 06/16/2019. Airway Exam: Cervical ROM: FROM TM distance: normal Cardiovascular Exam: Rate: regular Rhythm: regular Pulmonary Exam: LCTA, bilat EENT Exam: trachea midline Dental Exam: Poor dentition Skin Exam: Skin is warm. Current state: Patient's current state is cooperative. Anesthesia Plan ASA 3 My patient is approved for the Anesthesia Controlled Medication protocol when under care of a BRIAR WOOD SORTER Planned anesthesia: MAC Induction: Induction: intravenous. Postoperative Plan: Patient's planned disposition post procedure is Outpatient. Informed Consent: Discussed plan with BRIAR WOOD SORTER. Anesthesia plan and risks discussed with patient. Plan and Consent Comments: NPO status confirmed Rosa Maria Kim am scribing for, and in the presence of Dr. Jain. Consent and Attending signature: I and/or my designee have discussed the anesthesia plan, benefits, possible alternatives, parental presence at time of induction (if indicated), and clinically relevant risks that may include dental injury, unintentional awareness, and/or other complications. The patient and/or parent/legal guardian understand, and agree to proceed. All questions answered. Cosigned by Marisol Jain MD at 06/16/2019 7:28 AM TOUCH UP WORKER H UP WORKER H UP WORKER documented in this encounter Plan of Treatment Not on file documented as of this encounter Visit Diagnoses Not on filedocumented in this encounter Administered Medications Inactive Administered Medications - up to 3 most recent administrations Medication Order MAR Action Action Date Dose Rate Site dexAMETHasone (DECADRON) 4 mg/mL injection Administer over 2 Minutes, As needed, Starting on Wed06/16/19 at 0750, Anesthesia Intra-op Given 06/16/2019 7:50 AM TOUCH UP WORKER 4 mg fentaNYL (SUBLIMAZE) preservative free injection intravenous, As needed, Starting on Wed06/16/19 at 0741, Anesthesia Intra-op Given 06/16/2019 8:08 AM TOUCH UP WORKER 25 mcg Given 06/16/2019 7:49 AM TOUCH UP WORKER 25 mcg Given 06/16/2019 7:41 AM TOUCH UP WORKER 50 mcg glucagon injection Administer over 1 Minutes, As needed, Starting on Wed06/16/19 at 0743, Anesthesia Intra-op Given 06/16/2019 7:43 AM TOUCH UP WORKER 0.5 mg lidocaine PF (XYLOCAINE) 10 mg/mL (1 %) preservative free injection As needed, Starting on Wed06/16/19 at 0741, Anesthesia Intra-op Given 06/16/2019 7:41 AM TOUCH UP WORKER 100 mg midazolam (VERSED) preservative free injection intravenous, Administer over 2 Minutes, As needed, Starting on Wed06/16/19 at 0741, Anesthesia Intra-op Given 06/16/2019 7:41 AM TOUCH UP WORKER 2 mg ondansetron (ZOFRAN) injection intravenous, Administer over 2 Minutes, As needed, Starting on Wed06/16/19 at 0741, Anesthesia Intra-op Given 06/16/2019 7:41 AM TOUCH UP WORKER 4 mg propofol (DIPRIVAN) IV intravenous, As needed, Starting on Wed06/16/19 at 0741, Anesthesia Intra-op Given 06/16/2019 7:41 AM TOUCH UP WORKER 150 mg propofol (DIPRIVAN) IV intravenous, Continuous PRN, Starting on Wed06/16/19 at 0741, Anesthesia Intra-op New Bag 06/16/2019 7:41 AM TOUCH UP WORKER 150 mcg/kg/min 59.22 mL/hr documented in this encounter Care Teams Communication Assistant Relationship Specialty Start Date End Date Thao Dove MD PCP - General 03/14/19 documented as of this encounter
--- OUTSIDE RECORDS SUMMARY | 2024-07-02 03:56 | XMS_ITS | Encounter Summary ---
Author Organization [facility] Healthcare Address [address] [place] [address] Care Team Providers Care Remediation Consultant Name Role Phone Thao Dove MD Primary Care Provider Encounter Details Date Type Department Care Team (Latest Contact Info) Description 06/16/2019 6:30 AM SUPPLIER QUALITY SPECIALIST - 06/16/2019 9:44 AM SUPPLIER QUALITY SPECIALIST Hospital Encounter [facility] [place] [address] [facility] [address] [place] [address] Toy Higuera MD [address] [place] [address] Necrotizing pancreatitis Discharge Disposition: Discharge to home or self [...] Sign Reading Time Taken Comments Blood Pressure 122/81 06/16/2019 9:18 AM SUPPLIER QUALITY SPECIALIST Pulse 71 06/16/2019 9:18 AM SUPPLIER QUALITY SPECIALIST Temperature 36 ??C (96.8 ??F) 06/16/2019 8:18 AM SUPPLIER QUALITY SPECIALIST Respiratory Rate 12 06/16/2019 9:18 AM SUPPLIER QUALITY SPECIALIST Oxygen Saturation 96% 06/16/2019 9:18 AM SUPPLIER QUALITY SPECIALIST Inhaled Oxygen Concentration - - Weight 65.8 kg (145 lb) 06/16/2019 7:08 AM SUPPLIER QUALITY SPECIALIST Height 160 cm (5' 3 ) 06/16/2019 7:08 AM SUPPLIER QUALITY SPECIALIST Body Mass Index 25.69 06/16/2019 7:08 AM SUPPLIER QUALITY SPECIALIST documented in this encounter Discharge Diagnoses Diagnosis Acute pancreatitis with uninfected necrosis, unspecified - ACUTE PANCREATITIS WITH UNINFECTED NECROSIS, UNSPECIFIED Other specified diseases of pancreas - OTHER SPECIFIED DISEASES OF PANCREAS Nicotine dependence, cigarettes, uncomplicated - NICOTINE DEPENDENCE, CIGARETTES, UNCOMPLICATED Essential (primary) hypertension - ESSENTIAL (PRIMARY) HYPERTENSION Unspecified essential hypertension Personal history of other venous thrombosis and embolism - PERSONAL HISTORY OF OTHER VENOUS THROMBOSIS AND EMBOLISM Alcohol abuse, uncomplicated - ALCOHOL ABUSE, UNCOMPLICATED Presence of other specified functional implants - PRESENCE OF OTHER SPECIFIED FUNCTIONAL IMPLANTS Family history of ischemic heart disease and other diseases of the circulatory system - FAMILY HISTORY OF ISCHEMIC HEART DISEASE AND OTHER DISEASES OF THE CIRCULATORY SYSTEM Family history of diabetes mellitus - FAMILY HISTORY OF DIABETES MELLITUS documented in this encounter Medications at Time [...] documented in this encounter H&P Notes * Toy Higuera MD - 06/16/2019 7:12 AM CST I have reviewed the H&P, examined the patient, and endorse the findings as written. Plan of Care : Based on the above findings, I consider Marisa Lott to be an acceptable risk for: Procedure(s): ERCP LIER QUALITY SPECIALIST Source Note - Frandy Barrios MD - 05/24/2019 2:30 PM SUPPLIER QUALITY SPECIALIST Gastroenterology - Biliary Consult Subjective Patient is [...] unfortunately continued to drink.She then presented to [facility] with a recurrent episode of pancreatitis. [...] file Gets together: Not on file Attends uatsdin service: Not on file Active member of [...] Toy Higuera MD at 05/24/2019 3:52 PM SUPPLIER QUALITY SPECIALIST LIER QUALITY SPECIALIST LIER QUALITY SPECIALIST documented in this encounter Procedure Notes * Toy Higuera MD - 06/16/2019 6:40 AM CSTAssociated Order(s): ERCP GI ENDOSCOPY [facility] Patient Name: Marisa Lott Procedure Date: 06/16/2019 6:40 AM Date of : 1980 Admit Type: Outpatient Age: 39 Gender: Female Attending MD: Toy Higuera M.D. Room: [facility] ENDOSCOPY ROOM 2 Note Status: Finalized Procedure: ERCP Indications: Pancreatic duct leak, Pancreatic fistula, For therapy of pancreatic fistula, h/o severe pancreatitis with peripancreatic fluid collection managed with percutaneous drain; injection through drain revealed communication with pancreatic duct; ERCP performed to faciliate resolution of the fistula and drain removal Referring MD: Thao Dove M.D. Providers: Toy Higuera M.D. Medicines: Indomethacin 100 mg MT, Monitored Anesthesia Care Complications: No immediate complications. Estimated Blood Loss: Estimated blood loss: none. Procedure: Pre-Anesthesia Assessment: - The risks and benefits of the procedure and the sedation options and risks were discussed with the patient. All questions were answered and informed consent was obtained. - Immediately prior to administration of medications, the patient was re-assessed for adequacy to receive sedatives. The benefits, risks, and alternatives to the procedure and sedation were discussed and informed consent was obtained. The TJF 160VF-272 Duodenoscope was introduced through the mouth, and used to inject contrast into and used to cannulate the bile duct. The ERCP was performed with difficulty due to challenging cannulation. The patient tolerated the procedure well. Findings: A water mangle tender film of the abdomen was obtained. One percutaneous drain ending in the Left upper quadrant was seen. The esophagus was successfully intubated under direct vision. The scope was advanced to a normal major papilla in the descending duodenum without detailed examination of the pharynx, larynx and associated structures, and upper GI tract. The upper GI tract was grossly normal. On initial attempted pancreatic duct cannulation, the bile duct was deeply cannulated with the short-nosed traction sphincterotome. Contrast was injected. I personally interpreted the bile duct images. Ductal flow of contrast was adequate. Image quality was adequate. Contrast extended to the main bile duct. Contrast extended to the cystic duct. Contrast extended to the gallbladder. The entire opacified area was normal. Despite multiple attempts at cannulation with injection of contrast and wire guidance, pancreatic duct cannulation was not achieved. At this point, prior to additional manipulation and cannulation attempts, the drain was injected with contrast. No communication with the pancreatic duct was seen. Several additional attempts were made to cannulate the pancreatic duct at the major papilla and expected location of the minor papilla but no pancreatogram was obtained. Given the lack of persistent fistula, additional attempts were not made. Impression: - Unsuccessful cannulation of the pancreatic duct, so a pancreatogram was not obtained. - Injection through the percutaneous drain did not reveal communication with the pancreatic duct, so additional attempts at pancreatic duct cannulation were not made. - Normal limited cholangiogram. Recommendation: - Watch for pancreatitis, bleeding, perforation, and cholangitis. - Follow-up with IR today as planned for drain check and possible removal. - Follow-up in GI clinic with me in 2 months. Attending Participation: I personally performed the entire procedure. Electronically Signed: Toy Higuera MD Toy Higuera M.D. 06/16/2019 9:16:01 AM . Number of Addenda: 0 Note Initiated On: 06/16/2019 6:40 AM Recognized by the [employer] for promoting quality in endoscopy LIER QUALITY SPECIALIST documented in this encounter Plan of Treatment Pending Results Name Type Priority Associated Diagnoses Date /Time FL ERCP Endo Imaging Procedure IP Routine Necrotizing pancreatitis 06/16/2019 8:14 AM SUPPLIER QUALITY SPECIALIST documented as of this encounter Procedures Procedure Name Priority Date/Time Associated Diagnosis Comments ERCP IP Routine 06/16/2019 8:14 AM SUPPLIER QUALITY SPECIALIST Necrotizing pancreatitis ERCP IP Routine 06/16/2019 8:12 AM SUPPLIER QUALITY SPECIALIST RAD S AND I BILIARY DUCTAL SYSTEM 06/16/2019 7:29 AM SUPPLIER QUALITY SPECIALIST Necrotizing pancreatitis ERCP 06/16/2019 6:40 AM SUPPLIER QUALITY SPECIALIST documented in this encounter Results * FL ERCP Biliary and Pancreatic (06/16/2019 8:12 AM SUPPLIER QUALITY SPECIALIST) Narrative RAD_PACS_[facility] - 06/16/2019 8:13 AM SUPPLIER QUALITY SPECIALIST The images from this study are not interpreted by Radiology. ??Please refer to the physician's procedure / OR operative note. us Toy Higuera MD IMG FLUOROSCOPY PROCEDURE S Final Result RAD_PACS_[facility] * ERCP (06/16/2019 6:40 AM SUPPLIER QUALITY SPECIALIST) Anatomical Region Laterality Modality Other Narrative Procedure Note Toy Higuera MD - 06/16/2019 6:40 AM CST GI ENDOSCOPY [facility] Patient Name: Marisa Lott Procedure Date: 06/16/2019 6:40 AM Date of : 1980 Admit Type: Outpatient Age: 39 Gender: Female Attending MD: Toy Higuera M.D. Room: [facility] ENDOSCOPY ROOM 2 Note Status: Finalized Procedure: ERCP Indications: Pancreatic duct leak, Pancreatic fistula, Fortherapy of pancreatic fistula, h/o severe pancreatitis with peripancreatic fluid collection managed with percutaneous drain; injection through drain revealed communication with pancreatic duct; ERCP performedto faciliate resolution of the fistula and drainremoval Referring MD: Thao Dove M.D. Providers: Toy Higuera M.D. Medicines: Indomethacin 100 mg MT, Monitored Anesthesia Care Complications: No immediate complications. Estimated Blood Loss: Estimated blood loss: none. Procedure: Pre-Anesthesia Assessment: - The risks and benefits of the procedure and the sedation options and risks were discussed with the patient. All questions were answered and informed consent was obtained. - Immediately prior to administration ofmedications, the patient was re-assessed for adequacy to receive sedatives. The benefits, risks, and alternatives to theprocedure and sedation were discussed and informed consent was obtained. The TJF 160VF-272 Duodenoscope wasintroduced through the mouth, and used to inject contrast intoand used to cannulate the bile duct. The ERCP wasperformed with difficulty due to challenging cannulation. The patient tolerated the procedure well. Findings: A water mangle tender film of the abdomen was obtained. One percutaneous drainending in the Left upper quadrant was seen. The esophagus was successfully intubated under direct vision. The scope was advanced to a normalmajor papilla in the descending duodenum without detailed examination ofthe pharynx, larynx and associated structures, and upper GI tract. Theupper GI tract was grossly normal. On initial attempted pancreatic duct cannulation, the bile duct was deeply cannulated with the short-nosed traction sphincterotome. Contrast was injected. I personallyinterpreted the bile duct images. Ductal flow of contrast was adequate. Image quality was adequate. Contrast extended to the main bile duct.Contrast extended to the cystic duct. Contrast extended to the gallbladder.The entire opacified area was normal. Despite multiple attempts at cannulation with injection of contrast and wire guidance, pancreatic duct cannulation was not achieved. At this point, prior to additional manipulation and cannulation attempts, the drain was injected with contrast. No communication with the pancreatic duct was seen. Several additional attempts were made to cannulate the pancreatic duct at the major papilla and expected location of the minor papilla but no pancreatogram was obtained. Given the lack of persistent fistula, additional attempts were not made. Impression: - Unsuccessful cannulation of the pancreatic duct,so a pancreatogram was not obtained. - Injection through the percutaneous drain did not reveal communication with the pancreatic duct, so additional attempts at pancreatic duct cannulationwere not made. - Normal limited cholangiogram. Recommendation: - Watch for pancreatitis, bleeding, perforation, and cholangitis. - Follow-up with IR today as planned for drain check and possible removal. - Follow-up in GI clinic with me in 2 months. Attending Participation: I personally performed the entire procedure. Electronically Signed: Toy Higuera MD Toy Higuera M.D. 06/16/2019 9:16:01 AM . Number of Addenda: 0 Note Initiated On: 06/16/2019 6:40 AM Recognized by the [employer] for promoting quality in endoscopy us Toy Higuera MD ENDOSCOPY PROCEDURES Linda l Result documented in this encounter Visit Diagnoses Diagnosis Necrotizing pancreatitis- Primary Acute pancreatitis documented in this encounter Admitting Diagnoses Diagnosis Necrotizing pancreatitis Acute pancreatitis documented in this encounter Administered Medications Inactive Administered Medications - up to 3 most recent administrations Medication Order MAR Action Action Date Dose Rate Site fentaNYL (SUBLIMAZE) preservative free injection 25 mcg 25 mcg, intravenous, Every 1 hour PRN, 2nd line for pain, other, if allergic to hydromorphone, Starting on Wed06/16/19 at 0819, For 3 doses, Recovery (GI), Notify MD of pain score greater than 4., Indications: PainIndications:Pain HYDROmorphone (DILAUDID) injection 1 mg 1 mg, intravenous, Administer over 2 Minutes, Every 1 hour PRN, 1st line for pain, Starting on Wed06/16/19 at 0819, For 3 doses, Recovery (GI), Notify MD of pain score greater than 4., Indications: PainIndications:Pain Lactated Ringer's (LR) infusion 30 mL/hr, intravenous, Continuous, Starting on Wed06/16/19 at 0730, Pre-Procedure (GI) New Bag 06/16/2019 7:09 AM SUPPLIER QUALITY SPECIALIST 30 mL/hr 30 mL/hr sodium chloride 0.9% flush 0.5-20 mL 0.5-20 mL, intra-catheter, As needed, line care, Starting on Wed06/16/19 at 0658, Pre-Procedure (GI), Flush volume based on line type and size. Flush before and after each use. , Indications: FlushingIndications:Flushing documented in this encounter Discontinued Medications Medication Sig Discontinue Reason Start Date End Da te nicotine (NICODERM CQ) [address] 1 patch on the skin daily Therapy completed 03/22/2019 06/16/2019 documented as of this encounter Historical Medications * This list may reflect changes made after this encounter. hydrOXYzine (ATARAX) 25 mg tablet Take 25 mg by mouth every 8 (eight) hours as needed for anxiety 06/01/2019 escitalopram (LEXAPRO) 10 mg tabletIndications :Anxiety with Depression Take 10 mg by mouth nightly 0 06/01/2019 added in this encounter Active and Recently Administered Medications Times are shown in SUPPLIER QUALITY SPECIALIST. Continuous Medication Order 06/14/2019 06/15/2019 06/16/2019 Lactated Ringer's (LR) infusion 30 mL/hr, intravenous, Continuous, Starting on Wed06/16/19 at 0730, Pre-Procedure (GI) 0709 (New Bag - Prov ider: Haydee Gloria RN)0808 (Anesthesia Volume Adjustment - Provider: Rosie Santillan CRNA)0818 (Anesthesia Volume Adjustment - Provider: Rosie Santillan CRNA) Lactated Ringer's (LR) infusion 1,000 mL/hr, intravenous, Continuous, Starting on Wed06/16/19 at 0900, Recovery (GI) 0900 (Due) PRN Medication Order 06/14/2019 06/15/2019 06/16/2019 fentaNYL (SUBLIMAZE) preservative free injection 25 mcg(Linked Group 1) 25 mcg, intravenous, Every 1 hour PRN, 2nd line for pain, other, if allergic to hydromorphone, Starting on Wed06/16/19 at 0819, For 3 doses, Recovery (GI), Notify MD of pain score greater than 4., Indications: Pain HYDROmorphone (DILAUDID) injection 1 mg(Linked Group 1) 1 mg, intravenous, Administer over 2 Minutes, Every 1 hour PRN, 1st line for pain, Starting on Wed06/16/19 at 0819, For 3 doses, Recovery (GI), Notify MD of pain score greater than 4., Indications: Pain indomethacin (INDOCIN) 50 mg suppository (CANCELED) As needed, Starting on Wed06/16/19 at 0759, Intra-Op 0759 (Given - Provid er: Eliz Bowie RN) iothalamate meglumine (CONRAY) 60 % injection (CANCELED) As needed, Starting on Wed06/16/19 at 0759, Intra-Op 0759 (Given - Provid er: Haydee Gloria RN) ondansetron (ZOFRAN) injection 4 mg 4 mg, intravenous, Administer over 2 Minutes, Every 30 min PRN, nausea, vomiting, Starting on Wed06/16/19 at 0819, For 2 doses, Recovery (GI), Indications: Nausea and Vomiting sodium chloride 0.9% flush 0.5-20 mL 0.5-20 mL, intra-catheter, As needed, line care, Starting on Wed06/16/19 at 0658, Pre-Procedure (GI), Flush volume based on line type and size. Flush before and after each use. , Indications: Flushing Linked Groups Order Group 1: HYDROmorphone (DILAUDID) injection 1 mgJump to med 1 mg, intravenous, Administer over 2 Minutes, Every 1 hour PRN, 1st line for pain, Starting on Wed06/16/19 at 0819, For 3 doses, Recovery (GI), Notify MD of pain score greater than 4., Indications: Pain Or fentaNYL (SUBLIMAZE) preservative free injection 25 mcgJump to med 25 mcg, intravenous, Every 1 hour PRN, 2nd line for pain, other, if allergic to hydromorphone, Starting on Wed06/16/19 at 0819, For 3 doses, Recovery (GI), Notify MD of pain score greater than 4., Indications: Pain documented in this encounter Orders Medications Ordered That Jamil ht Not Have Been Administered Count Last Ordered Date First Ordered Date fentaNYL (SUBLIMAZE) preserv ative free injection 25 mcg 1 06/16/2019 HYDROmorphone (DILAUDID) injection 1 mg 1 0 06/16/2019 indomethacin (INDOCIN) 50 mg suppository 1 06/16/2019 iothalamate meglumine (CONRA Y) 60 % injection 06/16/2019 Lactated Ringer's (LR) infusion 1 0 ondansetron (ZOFRAN) injection 4 mg 1 06/16 sodium chloride 0.9% flush 0.5-20 mL 1 08/2019 documented in this encounter Care Teams Remediation Consultant Relationship Specialty Start Date End Date Thao Dove MD PCP - General 03/14/19 documented as of this encounter
--- OUTSIDE RECORDS SUMMARY | 2024-07-02 03:56 | XMS_ITS | Encounter Summary ---
Author Organization [facility] Healthcare Address [address] [place] [id number] Care Team Providers Care Business Process Architect Name Role Phone Thao Dove MD Primary Care Provider Encounter Details Date Type Department Care Team (Late st Contact Info) Description 04/17/2019 Telephone [facility] Radiology [address] [place] [address] Maxine Majano RN Social History Tobacco Use Types Packs/Day Years Used Date Smoking Tobacco: Every Day Cigarettes Alcohol Use Standard Drinks/Week Comments Not Currently 0 (1 standard drink = 0.6 oz pur e alcohol) None for 20 days Comments Unknown Sex and Gender Information Value Date Recorded Sex Assigned at Not on file Legal Sex Female 6:19 PM CDT Gender Identity Not on file Sexual Orientation Not on file documented as of this encounter Miscellaneous Notes * Telephone Encounter - Maxine Majano RN - 04/17/2019 12:49 PM CST No answer for pre-procedure call. ICATION TECHNICIAN documented in this encounter Plan of Treatment Not on file documented as of this encounter Visit Diagnoses Not on filedocumented in this encounter Care Teams Business Process Architect Relationship Specialty Start Date End Date Thao Dove MD PCP - General 03/14/19 documented as of this encounter
--- OUTSIDE RECORDS SUMMARY | 2024-07-02 03:56 | XMS_ITS | Encounter Summary ---
Author Organization [facility] Facility Care Team Providers Care Sheet Roller Operator Name Role Phone Thao Dove MD Primary Care Provider Encounter Details Date Type Department Care Team (Latest Contact Info) Description 06/16/2019 Travel Social History Tobacco Use Types Packs/Day [...] on filedocumented in this encounter Care Teams Sheet Roller Operator Relationship Specialty Start Date End Date Thao Dove MD PCP - General 03/14/19 documented as of this encounter
--- OUTSIDE RECORDS SUMMARY | 2024-07-02 03:56 | XMS_ITS | Encounter Summary ---
Author Organization [facility] Facility Care Team Providers Care Dynamic Etching Processor Name Role Phone Thao Dove MD Primary Care Provider Encounter Details Date Type Department Care Team (Latest Contact Info) Description 05/05/2019 Travel Social History Tobacco Use Types Packs/Day [...] on filedocumented in this encounter Care Teams Dynamic Etching Processor Relationship Specialty Start Date End Date Thao Dove MD PCP - General 03/14/19 documented as of this encounter
--- OUTSIDE RECORDS SUMMARY | 2024-07-02 03:56 | XMS_ITS | Encounter Summary ---
Author Organization [facility] Healthcare Address [address] [place] [address] Care Team Providers Care Supervisor Housecleaner Name Role Phone Thao Dove MD Primary Care Provider Encounter Details Date Type Department Care Team (Late st Contact Info) Description 04/18/2019 Telephone [facility] Radiology [address] [address] Carmen Hendrix RN Social History Tobacco Use [...] Telephone Encounter - Carmen Hendrix RN - 04/18/2019 2:01 PM GRANITE SETTER Called to confirm tomorrow's drain check appt.. 1st number had recording stating phone has calling restrictions blocking the call.... 2nd number went to voice mail after 3 rings ITE SETTER documented in this encounter Plan of Treatment Not on file documented as of this encounter Visit Diagnoses Not on filedocumented in this encounter Care Teams Supervisor Housecleaner Relationship Specialty Start Date End Date Thao Dove MD PCP - General 03/14/19 documented as of this encounter
--- OUTSIDE RECORDS SUMMARY | 2024-07-02 03:56 | XMS_ITS | Encounter Summary ---
Author Organization [facility] Healthcare Address [address] [place] [address] Care Team Providers Care Adzing And Boring Machine Feeder Name Role Phone Thao Dove MD Primary Care Provider Encounter Details Date Type Department Care Team (Latest Contact Info) Description 07/07/2019 7:07 PM CHARTER COACH DRIVER - 07/07/2019 11:59 PM CHARTER COACH DRIVER Hospital Encounter [facility] [address] [place] [address] [phone] Discharge Disposition: Discharge to home or self [...] times a day 200 each 07/11/2019 1 blood glucose diagnostic (Glucocard Shine Test Strips) strip Use as needed 200 each 07/10/2019 0 blood-glucose meter (Glucocard Shine Meter Kit) kit 1 Device once for 1 dose 1 each 07/10/2019 0 folic acid (FOLVITE) 1 mg tablet Take 1 tablet (1 mg total) by mouth daily 30 tablet 1 03/22/2019 0 insulin glargine (LANTUS) 100 unit/mL injectionIndicat ions:Diabetes Mellitus Inject 22 Units under the skin nightly 10 mL 07/10/2019 0 insulin glargine (LANTUS) 100 unit/mL injectionIndicat ions:Diabetes Mellitus Inject 22 Units under the skin nightly 19.8 mL 3 07/10/2019 0 insulin lispro (HumaLOG) 100 unit/mL insulin penIndications:t ype 1 diabetes mellitus Inject 1-3 Units under the skin 3 (three) times a day with meals Refer to After Visit Summary for Sliding Scale Insulin Instructions 15 mL 07/10/2019 0 insulin lispro (HumaLOG) 100 unit/mL insulin pen Inject 1-7 Units under the skin 3 (three) times a day with meals 1 unit for every 25 glucose greater than 150 up to max 7 units 15 mL 11 07/10/2019 0 lancets 17 gauge misc 1 Device 5 (five) times a day 200 each 07/10/2019 0 oxyCODONE (ROXICODONE) 5 mg immediate release tabletIndication s:Pain,2nd line Take 1 tablet (5 mg total) by mouth every 4 (four) hours as needed for pain 25 tablet 07/10/2019 0 pen needle, diabetic 33 gauge x 5/32 needle 1 Device 5 (five) times a day 100 each 11 07/10/2019 0 thiamine (VITAMIN B1) 100 mg tablet Take 1 tablet (100 mg total) by mouth daily 30 tablet 1 03/22/2019 0 documented as of this encounter Discharge Disposition Disposition Code Departure Means Destination Discharge to home or self care documented in this encounter Plan of Treatment Not on file documented as of this encounter Procedures Procedure Name Priority Date/Time Associated Diagnosis Comments CT BODY OUTSIDE CONSULT Routine 07/07/2019 7:07 PM CHARTER COACH DRIVER Diagnosis unknown documented in this encounter Results * CT Body Outside Consult (07/07/2019 7:07 PM CHARTER COACH DRIVER) Anatomical Region Laterality Modality Body N/A Computed Tomogra phy 07/08/2019 7:48 AM CHARTER COACH DRIVER Impressions 07/08/2019 7:48 AM CHARTER COACH DRIVER 1. ??Findings of chronic pancreatitis, with residual [...] images may or may not represent the [place] source data set and thus may contain changes that may lower the accuracy of this second-opinion interpretation. Electronically signed by: Gregory Alvarez M.D. Narrative 07/08/2019 7:48 AM CHARTER COACH DRIVER EXAMINATION: RADIOLOGY CONSULTATION ON OUTSIDE IMAGING STUDY STUDY INITIALLY PERFORMED: 07/07/2019 at [facility]. TYPE OF STUDY: Multiple CT [...] IMAGING STUDY STUDY INITIALLY PERFORMED: 07/07/2019 at [facility]. TYPE OF STUDY: Multiple CT [...] images may or may not represent the [place] source data set and thus may contain changes that may lower the accuracy of this second-opinion interpretation. Electronically signed by: Gregory Alvarez M.D. [facility] [place] Brennon DAVIS IMG CT PROCEDURES Final Res ult documented in this encounter Visit Diagnoses Not on filedocumented in this encounter Care Teams Adzing And Boring Machine Feeder Relationship Specialty Start Date End Date Thao Dove MD PCP - General 03/14/19 documented as of this encounter
--- OUTSIDE RECORDS SUMMARY | 2024-07-02 03:56 | XMS_ITS | Encounter Summary ---
Author Organization [facility] Healthcare Address [address] [place] [address] Care Team Providers Care Dental Service Technician Name Role Phone Thao Dove MD Primary Care Provider Encounter Details Date Type Department Care Team (Late st Contact Info) Description 06/16/2019 7:30 AM BELT SPLICER - 06/16/2019 7:55 AM BELT SPLICER Surgery [facility] [place] [address] [facility] [address] [place] [address] Toy Higuera MD [address] [place] [address] ERCP [[id number]] Surgery Details Date/Time Status Location OR Service Patient Class Case Class Case Type Trauma Case? 06/16/2019 7:30 AM Posted [facility] ERCP 02 Gastroenterology Outpatient Elective Panel 1 Procedure LRB Anes Op Region Wound Class Comments ERCP N/A Monitor Anesthes ia Care N/A RAD S AND I BILIARY DUCTAL SYSTEM General Class II - Clean Contaminated Surgeon Surgeon Role Service Panel Toy Higuera MD Primary Gastroenterology 1 documented in this encounter Social History Tobacco [...] Sign Reading Time Taken Comments Blood Pressure 114/81 06/16/2019 7:08 AM BELT SPLICER Pulse 90 06/16/2019 7:08 AM BELT SPLICER Temperature 36.3 ??C (97.3 ??F) 06/16/2019 7:08 AM CS T Respiratory Rate 17 06/16/2019 7:08 AM BELT SPLICER Oxygen Saturation 98% 06/16/2019 7:08 AM BELT SPLICER Inhaled Oxygen Concentration - - Weight 65.8 kg (145 lb) 06/16/2019 7:08 AM BELT SPLICER Height 160 cm (5' 3 ) 06/16/2019 7:08 AM BELT SPLICER Body Mass Index 25.69 06/16/2019 7:08 AM BELT SPLICER documented in this encounter Medications at Time [...] be an acceptable risk for: Procedure(s): ERCP SPLICER Source Note - Frandy Barrios MD - 05/24/2019 2:30 PM BELT SPLICER Gastroenterology - Biliary Consult Subjective Patient is [...] unfortunately continued to drink.She then presented to [facility] with a recurrent episode of pancreatitis. [...] file Gets together: Not on file Attends mandaen service: Not on file Active member of [...] Toy Higuera MD at 05/24/2019 3:52 PM BELT SPLICER SPLICER SPLICER documented in this encounter Procedure Notes * Toy Higuera MD - 06/16/2019 6:40 AM CSTAssociated Order(s): ERCP [facility] Patient Name: Marisa Lott Procedure Date: 06/16/2019 6:40 AM Date of : 1980 Admit Type: Outpatient Age: 39 Gender: Female Attending MD: Toy Higuera M.D. Room: [facility] ROOM 2 Note Status: Finalized Procedure: ERCP Indications: Pancreatic duct leak, Pancreatic fistula, For therapy of pancreatic fistula, h/o severe pancreatitis with peripancreatic fluid collection managed with percutaneous drain; injection through drain revealed communication with pancreatic duct; ERCP performed to faciliate resolution of the fistula and drain removal Referring MD: Thao Dove M.D. Providers: Toy Higuera M.D. Medicines: Indomethacin 100 mg SD, Monitored Anesthesia Care Complications: No immediate complications. [...] patient tolerated the procedure well. Findings: A jet man film of the abdomen was obtained. One [...] On: 06/16/2019 6:40 AM Recognized by the [employer] [employer] for promoting quality in endoscopy SPLICER documented in this encounter Plan of Treatment Pending Results Name Type Priority Associated Diagnoses Date /Time FL ERCP Endo Imaging Procedure IP Routine Necrotizing pancreatitis 06/16/2019 8:14 AM BELT SPLICER documented as of this encounter Procedures Procedure Name Priority Date/Time Associated Diagnosis Comments ERCP IP Routine 06/16/2019 8:14 AM BELT SPLICER Necrotizing pancreatitis ERCP IP Routine 06/16/2019 8:12 AM BELT SPLICER RAD S AND I BILIARY DUCTAL SYSTEM 06/16/2019 7:29 AM BELT SPLICER Necrotizing pancreatitis ERCP 06/16/2019 6:40 AM BELT SPLICER documented in this encounter Results * FL ERCP Biliary and Pancreatic (06/16/2019 8:12 AM BELT SPLICER) Narrative [facility] - 06/16/2019 8:13 AM BELT SPLICER The images from this study are not interpreted by Radiology. ??Please refer to the physician's procedure / OR operative note. us Toy Higuera MD IMG FLUOROSCOPY PROCEDURE S Final Result [facility] * ERCP (06/16/2019 6:40 AM BELT SPLICER) Anatomical Region Laterality Modality Other Narrative Procedure Note Toy Higuera MD - 06/16/2019 6:40 AM CST [facility] Patient Name: Marisa Lott Procedure Date: 06/16/2019 6:40 AM Date of : 1980 Admit Type: Outpatient Age: 39 Gender: Female Attending MD: Toy Higuera M.D. Room: [facility] END[facility]COPY ROOM 2 Note Status: Finalized Procedure: ERCP Indications: Pancreatic duct leak, Pancreatic fistula, Fortherapy of pancreatic fistula, h/o severe pancreatitis with peripancreatic fluid collection managed with percutaneous drain; injection through drain revealed communication with pancreatic duct; ERCP performedto faciliate resolution of the fistula and drainremoval Referring MD: Thao Dove M.D. Providers: Toy Higuera M.D. Medicines: Indomethacin 100 mg SD, Monitored Anesthesia Care Complications: No immediate complications. [...] patient tolerated the procedure well. Findings: A jet man film of the abdomen was obtained. One [...] On: 06/16/2019 6:40 AM Recognized by the [place] for promoting quality in endoscopy Toy Higuera MD ENDOSCOPY PROCEDURES Linda l Result documented in this encounter Visit Diagnoses Diagnosis Necrotizing pancreatitis- Primary Acute pancreatitis Necrotizing pancreatitis Acute pancreatitis documented in this encounter Admitting [...] pain score greater than 4., Indications: PainIndications:Pain indomethacin (INDOCIN) 50 mg suppository As needed, Starting on Wed06/16/19 at 0759, Intra-Op Given 06/16/2019 7:59 AM BELT SPLICER 100 mg iothalamate meglumine (CONRAY) 60 % injection As needed, Starting on Wed06/16/19 at 0759, Intra-Op Given 06/16/2019 7:59 AM BELT SPLICER 30 mL Lactated Ringer's (LR) infusion 30 mL/hr, intravenous, Continuous, Starting on Wed06/16/19 at 0730, Pre-Procedure (GI) New Bag 06/16/2019 7:09 AM BELT SPLICER 30 mL/hr 30 mL/hr sodium chloride 0.9% [...] Recently Administered Medications Times are shown in BELT SPLICER. Continuous Medication Order 06/14/2019 06/15/2019 06/16/2019 Lactated [...] Intra-Op 0759 (Given - Provid er: Eliz Bowie, RN) iothalamate meglumine (CONRAY) 60 % injection [...] in this encounter Orders Medications Ordered That Ajmil ht Not Have Been Administered Count Last Ordered Date First Ordered Date fentaNYL (SUBLIMAZE) preserv ative free injection 25 mcg 1 06/16/2019 HYDROmorphone (DILAUDID) injection 1 mg 1 0 06/16/2019 Lactated Ringer's (LR) infusion 1 0 ondansetron (ZOFRAN) injection 4 mg 1 06/16 sodium chloride 0.9% flush 0.5-20 mL 1 08/2019 documented in this encounter Care Teams Dental Service Technician Relationship Specialty Start Date End Date Thao Dove MD PCP - General 03/14/19 documented as of this encounter
--- OUTSIDE RECORDS SUMMARY | 2024-07-02 03:56 | XMS_ITS | Encounter Summary ---
Author Organization [facility] Healthcare Address [address] [place] [address] Care Team Providers Care Office Assistance Name Role Phone Thao Dove MD Primary Care Provider Encounter Details Date Type Department Care Team (Late st Contact Info) Description 05/16/2019 Telephone [facility] Radiology [address] [place] [address] Corbin Sanchez RN Social History Tobacco Use Types Packs/Day [...] encounter Miscellaneous Notes * Telephone Encounter - Corbin Sanchez RN - 05/16/2019 3:22 PM CST Attempted IR Pre-procedure phone call; no answer at either number listed SSES FEED MIXER documented in this encounter Plan of Treatment Not on file documented as of this encounter Visit Diagnoses Not on filedocumented in this encounter Care Teams Office Assistance Relationship Specialty Start Date End Date Thao Dove MD PCP - General 03/14/19 documented as of this encounter
--- OUTSIDE RECORDS SUMMARY | 2024-07-02 03:56 | XMS_ITS | Encounter Summary ---
Author Organization [facility] Healthcare Address [address] [place] [address] Care Team Providers Care Digital Advertising Analyst Name Role Phone Thao Dove MD Primary Care Provider Encounter Details Date Type Department Care Team (Late st Contact Info) Description 06/15/2019 Telephone [facility]iology [address] [place] [address] Vera West RN Social History Tobacco Use [...] Telephone Encounter - Vera West RN - 06/15/2019 2:09 PM CST Unable to reach patient at this time on cell or home number for pre-procedure phone call. STANT FRONT DESK MANAGER documented in this encounter Plan of Treatment Not on file documented as of this encounter Visit Diagnoses Not on filedocumented in this encounter Care Teams Digital Advertising Analyst Relationship Specialty Start Date End Date Thao Dove MD PCP - General 03/14/19 documented as of this encounter
--- OUTSIDE RECORDS SUMMARY | 2024-07-02 03:56 | XMS_ITS | Encounter Summary ---
Author Organization [facility] Facility Care Team Providers Care Health Sciences Manager Name Role Phone Thao Dove MD Primary Care Provider Encounter Details Date Type Department Care Team (Latest Contact Info) Description 04/07/2019 Travel Social History Tobacco Use Types Packs/Day [...] filedocumented in this encounter Care Teams Health Sciences Manager Relationship Specialty Start Date End Date Thao Dove MD PCP - General 03/14/19 documented as of this encounter
--- OUTSIDE RECORDS SUMMARY | 2024-07-02 03:56 | XMS_ITS | Encounter Summary ---
Author Organization [facility] Healthcare Address [address] [place] [address] Care Team Providers Care First Mate Name Role Phone Thao Dove MD Primary Care Provider Encounter Details Date Type Department Care Team (Late st Contact Info) Description 04/19/2019 Orders Only Radiology [address] [place] [address] Marisa Santillan PA [address] [facility] [address] [place] [address] Social History Tobacco Use Types Packs/Day Years [...] as of this encounter Miscellaneous Notes * Pre-Procedure Note - Marisa Santillan PA - 04/19/2019 7:11 AM INSURANCE LOSS ADJUSTER Radiology Procedure Plan Indication: Abscess drain due to necrotizing pancreatitis Planned Procedure: Abscess drain evaluation with possible exchange, repositioning, versus removal Cosigned by Bryon Chacko MD at 04/19/2019 7:16 AM INSURANCE LOSS ADJUSTER RANCE LOSS ADJUSTER RANCE LOSS ADJUSTER documented in this encounter Plan of Treatment Not on file documented as of this encounter Visit Diagnoses Not on filedocumented in this encounter Care Teams First Mate Relationship Specialty Start Date End Date Thao Dove MD PCP - General 03/14/19 documented as of this encounter
--- OUTSIDE RECORDS SUMMARY | 2024-07-02 03:57 | XMS_ITS | Encounter Summary ---
Author Organization [facility] Address [address] [place] [address] Phone Care Team Providers Care Video Machines Mechanic Name Role Phone Thao Dove MD Primary Care Provider Encounter Details Date Type Department Care Team (Late st Contact Info) Description 03/29/2019 Orders Only [facility] Gastroenterology [address] [facility] [address]th [place] [address] [place] [phone] RN Pancreatitis, necrotizing (Primary Dx) Social History Tobacco Use Types [...] as of this encounter Visit Diagnoses Diagnosis Pancreatitis, necrotizing- Primary Acute pancreatitis documented in this encounter Care Teams Video Machines Mechanic Relationship Specialty Start Date End Date Thao Dove MD PCP - General 03/14/19 documented as of this encounter
--- OUTSIDE RECORDS SUMMARY | 2024-07-02 03:57 | XMS_ITS | Encounter Summary ---
Author Organization [facility] Address [address] [place] [address] Care Team Providers Care Waxing Machine Operator Helper Name Role Phone Thao Dove MD Primary Care Provider Encounter Details Date Type Department Care Team (Late st Contact Info) Description 03/17/2019 Orders Only Radiology [address] [place] [address] Josafat Barrios MD [address] [facility] [address] [place], [place] [id number] Social History Tobacco Use Types Packs/Day Years Used Date Smoking Tobacco: Every Day Cigarettes Alcohol Use Standard Drinks/Week Comments Yes 0 (1 standard drink = 0.6 oz pur e alcohol) a fifth of vodka each day Comments Unknown Sex and Gender Information Value Date Recorded Sex Assigned at Not on file Legal Sex Female 6:19 PM CDT Gender Identity Not on file Sexual Orientation Not on file documented as of this encounter Miscellaneous Notes * Pre-Procedure Note - Josafat Barrios MD - 03/17/2019 10:41 AM CDT Radiology Long Sedation Form Indication: Peripancreatic fluid collection Planned Procedure: Percutaneous abscess drainage Planned Sedation/Anesthesia: moderate sedation History: Marisa Lott is a 38 y.o. female with a history of necrotizing pancreatitis with a recent admission in December 2018, etoh abuse, hypertension, DVT, and necrotizing pancreatitis [facility] and [facility] to [facility]. CT demonstrates a peripancreatic fluid collection around the distal pancreas extending to the paracolic gutter as well as a separate collection interposed between the stomach and splenic hilum. She spiked a fever to 101.9 on 03/16 PMH/PSH: Past Medical History: Diagnosis Date ??? DVT (deep venous thrombosis) (CMS/HCC) ??? ETOH abuse ??? Hypertension Past Surgical History: Procedure Laterality Date ??? SECTION ROS: Review of systems per HPI and otherwise all other systems are negative Allergies: Patient has no known allergies. Current Meds: No outpatient medications have been marked as taking for the 03/17/19 encounter (Orders Only) with Josafat Barrios MD. Physical exam: NAD, abdomen soft, breathing on room air Most Recent Vitals: There were no vitals taken for this visit. Airway Assessment: normal Labs/Imaging: WBC 8.1, PLT 259 Assessment: 38 y.o. female with necrotizing pancreatitis and peripancreatic fluid collections. The pocket along the left paracolic gutter is amenable to percutaneous drainage and likely communicates with the peripancreatic component. ASA Score: 3 NPO time: 03/17 at 9 AM. Clear liquids this morning Benefits, risks and alternatives of procedure and planned sedation have been discussed with the patient and/or their abrasives sales representative. All questions answered and they agree to proceed. documented in this encounter Plan of Treatment Not on file documented as of this encounter Visit Diagnoses Not on filedocumented in this encounter Care Teams Waxing Machine Operator Helper Relationship Specialty Start Date End Date Thao Dove MD PCP - General 03/14/19 documented as of this encounter
--- OUTSIDE RECORDS SUMMARY | 2024-07-02 03:57 | XMS_ITS | Encounter Summary ---
Author Organization [facility] Healthcare Address [address] [place] [address] Care Team Providers Care Can Maker Name Role Phone Thao Dove MD Primary Care Provider Encounter Details Date Type Department Care Team (Latest Contact Info) Description 03/15/2019 6:12 AM CDT - 03/15/2019 11:59 PM CDT Hospital Encounter [facility] [address] [place] [address] Discharge Disposition: Discharge to home or self [...] this encounter Medications at Time of Discharge ciprofloxacin (CIPRO) 500 mg tabletIndications :Abdominal/Pelvic Infection Take 1 tablet (500 mg total) by mouth 2 (two) times a day for 6 days 12 tablet 03/21/2019 03/27/2019 metroNIDAZOLE (FLAGYL) 500 mg tabletIndications :Abdominal/Pelvic Infection Take 1 tablet (500 mg total) by mouth 3 (three) times a day for 6 days 18 tablet 03/21/2019 03/27/2019 folic acid (FOLVITE) 1 mg tablet Take [...] Date/Time Associated Diagnosis Comments CT BODY OUTSIDE REFERENCE Routine 03/15/2019 6:12 AM CDT Diagnosis unknown documented in this encounter Results * CT Body Outside Reference (03/15/2019 6:12 AM CDT) Impressions [facility] - 03/15/2019 6:12 AM CDT These images are for Reference purposes only and have not been reviewed by [facility] Radiology. ??There will be no report generated by a [facility] Radiologist. Narrative [facility] - 03/15/2019 6:12 AM CDT EXAMINATION: ??Images For Reference Purposes Only us Apple Bridger Trejo MD IMG CT PROCEDURE S Final Result Performing Organization Address City/State/[facility] Co de Phone Number [facility] documented in this encounter Visit Diagnoses Not on filedocumented in this encounter Care Teams Can Maker Relationship Specialty Start Date End Date Thao Dove MD PCP - General 03/14/19 documented as of this encounter
--- OUTSIDE RECORDS SUMMARY | 2024-07-02 03:57 | XMS_ITS | Encounter Summary ---
Author Organization [facility] Facility Care Team Providers Care Back Filler Operator Name Role Phone Thao Dove MD Primary Care Provider Encounter Details Date Type Department Care Team (Latest Contact Info) Description 03/27/2019 Travel Social History Tobacco Use Types Packs/Day [...] on filedocumented in this encounter Care Teams Back Filler Operator Relationship Specialty Start Date End Date Thao Dove MD PCP - General 03/14/19 documented as of this encounter
--- OUTSIDE RECORDS SUMMARY | 2024-07-02 03:57 | XMS_ITS | Encounter Summary ---
Author Organization [facility] Address [address] [place] [address] Care Team Providers Care Crts Name Role Phone Thao Dove MD Primary Care Provider Reason for Referral * Diagnostic Imaging (Routine) - Closed Specialty Diagnoses / Procedures Referred By Contac t Referred To Contact Radiology Diagnoses Pancreatitis, necrotizing Procedures IR Inject Abscess Catheter Toy Fish MD Phone: tel: fax: [address] [phone] Referral ID Status Reason Start Date Expiration Date Visits Re quested Visits Authorized [id number] Closed 03/27/2019 10/05/2020 1 1 * Diagnostic Imaging (Routine) - Closed Specialty Diagnoses / Procedures Referred By Contac t Referred To Contact Radiology Diagnoses Pancreatitis, necrotizing Procedures IR Inject Abscess Catheter Destinee Murcia PA Phone: tel: fax: [address] [phone] Referral ID Status Reason Start Date Expiration Date Visits Re quested Visits Authorized [id number] Closed 03/20/2019 09/28/2020 1 1 Reason for Visit * Diagnostic Imaging (Routine) - Closed Specialty Diagnoses / Procedures Referred By Contac t Referred To Contact Radiology Diagnoses Pancreatitis, necrotizing Procedures IR Inject Abscess Catheter Destinee Murcia PA Phone: tel: fax: [address] [place] [address] Referral ID Status Reason Start Date Expiration Date Visits Re quested Visits Authorized [id number] Closed 03/20/2019 09/28/2020 1 1 Encounter Details Date Type Department Care Team (Late st Contact Info) Description 03/27/2019 7:32 AM CDT - 03/27/2019 9:40 AM CDT Hospital Encounter [facility] Radiology [facility] [place] [address] [place] [address] Toy Fish MD [facility] [address] [place] [address] Pancreatitis, necrotizing Discharge Disposition: Discharge to home [...] Sign Reading Time Taken Comments Blood Pressure 133/86 03/27/2019 9:25 AM CDT Pulse 80 03/27/2019 9:25 AM CDT Temperature 36.4 ??C (97.5 ??F) 03/27/2019 9:25 AM CD T Respiratory Rate 18 03/27/2019 9:25 AM CDT Oxygen Saturation 98% 03/27/2019 9:25 AM CDT Inhaled Oxygen Concentration - - Weight - - Height - - Body Mass Index - - documented in this encounter Discharge Diagnoses Diagnosis Encounter for fitting and adjustment of non-vascular catheter - ENCOUNTER FOR FITTING AND ADJUSTMENT OF NON-VASCULAR CATHETER Acute pancreatitis with uninfected necrosis, unspecified - ACUTE PANCREATITIS WITH UNINFECTED NECROSIS, UNSPECIFIED documented in this encounter Discharge Instructions * Discharge Instructions* Toy Quintana MD - 03/27/2019 9:24 AM CDT Interventional Radiology Outpatient Discharge Instructions/Note Diagnosis: peripancreatic fluid collection Procedure: inject fluid drainage catheter Limitations: [] No lifting greater than 5 pounds with [] Right [] Left arm for 7 days. [] You received medication that may affect your judgement. ?? Stay with a responsible person today. ?? Do not drive, operate machinery, make any legal or important decisions, or drink alcohol tomorrow. ?? No smoking unless another adult [...] on ___/___/___ (date). Drainage Tube Care: [x] Flush tube with [] 5ml Normal Saline [x] 10 ml Normal Saline [] Other: [x] Flush tube [] once a day [x] Other: twice a day [] Record drainage output every day. [] Your tube is capped. Uncap the tube after or if severe pain or fever develops. (Please see teaching sheet). [] Call Interventional Radiology if there is leakage around the tube or the tube stops draining. To contact an Interventional Radiologist at [facility] call [phone] Wednesday through Wednesday from 7:30am-4:30pm. At all other times call [phone] and ask that the Interventional Radiologist be paged. To contact an Interventional Radiologist at [facility] call [phone] Wednesday through Wednesday from 7:30am-3:30pm. Special instructions: Please call Interventional Radiology for any procedure related questions or problems including: ?? Extreme swelling or bruising at the site. ?? Unusual drainage or bleeding from procedure site. ?? Fever of 101.5 F for more than 24 hours. ?? Severe procedure related pain. Follow up care: [x] Return to Interventional Radiology approximately in 10 days Please come to: [] 3rd Floor [facility] [] 4th [facility] [] [facility] [] [facility] Please call [phone] to schedule a follow up appointment. You need to return in documented in this encounter Medications at Time [...] documented in this encounter Nursing Notes * Rosemary De Jesus RN - 03/27/2019 9:23 AM CDT Pt assisted to stretcher, tolerated well,HOB up 30 degrees all comfort measures in place. * Rosemary De Jesus RN - 03/27/2019 9:07 AM CDT Pt assisted to table, on monitor, all comfort and safety measures in place. documented in this encounter Miscellaneous Notes * Post-Procedure Note - Toy Quintana MD - 03/27/2019 9:22 AM CDT Radiology Brief Post Procedure Note Attending: Dr. Teixeira Thermal Intelligence Analyst: Analisa Mackenzie Sedation/Anesthesia: None Pre-Op/Pre-Procedure Diagnosis: peripancreatic fluid collection Post-Op/Post-Procedure Diagnosis: same Procedure Performed: Inject fluid drainage catheter Procedure Findings: Peripancreatic fluid collection is smaller but still putting out 200-250cc/day. Complications: None Estimated Blood Loss: None Specimens: None Condition: Stable Full report to follow. * Pre-Procedure Note - Toy Quintana MD - 03/27/2019 7:51 AM CDT Radiology Long Sedation Form Indication: peripancreatic fluid collection ?? Planned Procedure: fluid drainage catheter evaluation, possible removal, possible exchange ?? Planned Sedation/Anesthesia: none ?? History: 38-year-old woman with necrotizing pancreatitis presented with fever and CT findings of a peripancreatic fluid collection, now s/p 16 Fr [place] loop drainage catheter placement 03/17/2019. She presents for drain evaluation. She reports that approximately 200-250 cc of thin brown fluid are drained per day. She is flushing 40 cc per day. ?? She does not have sleep apnea or take any anticoagulants. PMH/PSH: Past Medical History: Diagnosis Date ??? DVT (deep venous thrombosis) (CMS/HCC) ??? ETOH abuse ??? Hypertension Past Surgical History: Procedure Laterality Date ??? SECTION ??? IMAGE GUIDED DRAINAGE PERITONEAL OR RETROPERITONEAL FLUID COLLECTION N/A 03/17/2019 ROS: Review of systems per HPI and otherwise all other systems are negative Allergies: Patient has no known allergies. Current Meds: No outpatient medications have been marked as taking for the 03/27/19 encounter (Hospital Encounter) with [facility] N IR 362. Physical exam: General: WD, alert and conversant in NAD HEENT: normocephalic, no neck swelling Chest: non-labored respirations Cardiac: regular rate GI: ND/NT, drain in place without surrounding erythema/exudate Extremities: no cyanosis Psych: appropriate mood and affect Most Recent Vitals: Vitals: 03/27/19 0809 BP: 130/87 Pulse: 80 Resp: 14 Temp: 36.5 ??C (97.7 ??F) SpO2: 98% Airway Assessment: normal Labs/Imaging: Lab Results Component Value Date WBC 7.2 03/20/2019 HGB 10.6 (L) 03/20/2019 HCT 32.9 (L) 03/20/2019 MCV 108.6 (H) 03/20/2019 LABPLAT 360 03/20/2019 Lab Results Component Value Date GLUCOSE 122 03/20/2019 CALCIUM 9.5 03/20/2019 SODIUM 135 03/20/2019 POTASSIUM 4.1 03/20/2019 CO2 26 03/20/2019 CHLORIDE 101 03/20/2019 BUNSER <2 (L) 03/20/2019 CREATININE 0.46 (L) 03/20/2019 No results found for: INR, PROTIME ?? Assessment: 38-year-old woman with necrotizing pancreatitis presented with fever and CT findings of a peripancreatic fluid collection, now s/p 16 Fr [place] loop drainage catheter placement 03/17/2019. ?? Plan for drainage catheter evaluation, possible removal/exchange. ASA Score: 2 NPO time: after midnight Benefits, risks and alternatives of procedure and planned sedation have been discussed with the patient and/or their contact representative. All questions answered and they agree to proceed. documented in this encounter Plan of Treatment Not on file documented as of this encounter Procedures Procedure Name Priority Date/Time Associated Diagnosis Comments ABSCESS CATHETER INJECTION Schedule Routine, Read Routine (OP Routine) 03/27/2019 9:26 AM CDT Pancreatitis, necrotizing documented in this encounter Results * IR Inject Abscess Catheter (04/07/2019 8:25 AM CDT) Anatomical Region Laterality Modality Body N/A Radio Fluoroscop y 04/07/2019 1:52 PM CDT Impressions 04/07/2019 2:05 PM CDT Slightly improved collection with persistent drainage.. ?? PLAN: Continue to monitor catheter output as well as the patient's clinical condition. The catheter should be flushed with 10 mL normal saline twice a day.. The patient will follow-up with us in 2 weeks If questions arise, please contact us by calling [phone]. Dictated by: Azeem Jackson M.D. The radiology attending physician has personally reviewed this study, and had reviewed and/or edited this written report and agrees with it. Electronically signed by: Bryon Chacko M.D. Narrative 04/07/2019 2:05 PM CDT EXAMINATION: ??DRAINAGE CATHETER EVALUATION AND REMOVAL HISTORY: ??39-year-old woman with necrotizing pancreatitis and peripancreatic fluid collection currently being managed with a 16 Bur[place] cope loop drainage catheter which was placed on 03/17/2019. The most recent drain check was on 03/27/2019. ATTENDING PRESENCE: ??Bryon Chacko M.D., the attending radiologist, was present from the beginning to the end of the procedure. SEDATION: ??The patient did not require conscious sedation for the procedure. TECHNIQUE: Prior to beginning the procedure, [place] Protocol was used to confirm the patient's identity and planned procedure. Fluoroscopy time has been recorded in the electronic medical record. After obtaining a dispatcher radioactive waste disposal image, the catheter was injected with dilute contrast and multiple fluoroscopic images obtained. ?? A sterile dressing was applied to the skin site. ESTIMATED BLOOD LOSS: Minimal. CONDITION: Stable DISCHARGED TO: ??Recovery and then to Home. FINDINGS: Images from the catheter check demonstrate the cavity is slightly decreased since prior examination. The catheter was draining light brown fluid. Procedure Note Bryon Chacko MD - 04/07/2019 EXAMINATION: DRAINAGE CATHETER EVALUATION AND REMOVAL HISTORY: 39-year-old woman with necrotizing pancreatitis and peripancreatic fluid collection currently being managed with a 16 Burkin[place] cope loop drainage catheter which was placed on 03/17/2019. The most recent drain check was on 03/27/2019. ATTENDING PRESENCE: Bryon Chacko M.D., the attending radiologist, was present from the beginning to the end of the procedure. SEDATION: The patient did not require conscious sedation for the procedure. TECHNIQUE: Prior to beginning the procedure, [place] Protocol was used to confirm the patient's identity and planned procedure. Fluoroscopy time has been recorded in the electronic medical record. After obtaining a dispatcher radioactive waste disposal image, the catheter was injected with dilute contrast and multiple fluoroscopic images obtained. A sterile dressing was applied to the skin site. ESTIMATED BLOOD LOSS: Minimal. CONDITION: Stable DISCHARGED TO: Recovery and then to Home. FINDINGS: Images from the catheter check demonstrate the cavity is slightly decreased since prior examination. The catheter was draining light brown fluid. IMPRESSION: Slightly improved collection with persistent drainage.. PLAN: Continue to monitor catheter output as well as the patient's clinical condition. The catheter should be flushed with 10 mL normal saline twice a day.. The patient will follow-up with us in 2 weeks If questions arise, please contact us by calling [phone]. Dictated by: Azeem Jackson M.D. The radiology attending physician has personally reviewed this study, and had reviewed and/or edited this written report and agrees with it. Electronically signed by: Bryon Chacko M.D. Toy Fish MD IMG IR PROCEDURES Final Resul t * IR Inject Abscess Catheter (03/27/2019 9:26 AM CDT) Anatomical Region Laterality Modality Body N/A Radio Fluoroscop y 03/27/2019 12:2 8 PM CDT Impressions 03/27/2019 4:07 PM CDT Improving peripancreatic collection with 200 to 250 mL output per day. ?? Catheter was left in place. PLAN: Continue to monitor catheter output as well as the patient's clinical condition. The catheter should be flushed 10 mL of normal saline twice a day. ?? The patient will follow-up with us in 10 days. If questions arise, please contact us by calling [phone]. Dictated by: Toy Quintana M.D. The radiology attending physician has personally reviewed this study, and had reviewed and/or edited this written report and agrees with it. Electronically signed by: Timothy Teixeira M.D. Narrative 03/27/2019 4:07 PM CDT EXAMINATION: ??DRAINAGE CATHETER EVALUATION ?? HISTORY: ??38-year-old woman with necrotizing pancreatitis and peripancreatic fluid collection status post 16-Bur[place]an [place] loop drainage catheter placement on 03/17/2019. ??Patient presents for her 1st drain evaluation. ATTENDING PRESENCE: ??Timothy Teixeira M.D., the attending radiologist, was present from the beginning to the end of the procedure. SEDATION: ??The patient did not require conscious sedation for the procedure. TECHNIQUE: Prior to beginning the procedure, [place] Protocol was used to confirm the patient's identity and planned procedure. Fluoroscopy time has been recorded in the electronic medical record. After obtaining a dispatcher radioactive waste disposal image, the catheter was injected with dilute contrast and multiple fluoroscopic images obtained. ?? A sterile dressing was applied to the skin site. ESTIMATED BLOOD LOSS: Minimal. CONDITION: Stable DISCHARGED TO: ??Recovery and then to home. FINDINGS: Images from the catheter check demonstrate the cavity has decreased in size but is persistent. The catheter was draining light brown, thin fluid. Procedure Note Timothy Teixeira MD - 03/27/2019 EXAMINATION: DRAINAGE CATHETER EVALUATION HISTORY: 38-year-old woman with necrotizing pancreatitis and peripancreatic fluid collection status post 16-Bur[place] loop drainage catheter placement on 03/17/2019. Patient presents for her 1st drain evaluation. ATTENDING PRESENCE: Timothy Teixeira M.D., the attending radiologist, was present from the beginning to the end of the procedure. SEDATION: The patient did not require conscious sedation for the procedure. TECHNIQUE: Prior to beginning the procedure, [place] Protocol was used to confirm the patient's identity and planned procedure. Fluoroscopy time has been recorded in the electronic medical record. After obtaining a dispatcher radioactive waste disposal image, the catheter was injected with dilute contrast and multiple fluoroscopic images obtained. A sterile dressing was applied to the skin site. ESTIMATED BLOOD LOSS: Minimal. CONDITION: Stable DISCHARGED TO: Recovery and then to home. FINDINGS: Images from the catheter check demonstrate the cavity has decreased in size but is persistent. The catheter was draining light brown, thin fluid. IMPRESSION: Improving peripancreatic collection with 200 to 250 mL output per day. Catheter was left in place. PLAN: Continue to monitor catheter output as well as the patient's clinical condition. The catheter should be flushed 10 mL of normal saline twice a day. The patient will follow-up with us in 10 days. If questions arise, please contact us by calling [phone]. Dictated by: Toy Quintana M.D. The radiology attending physician has personally reviewed this study, and had reviewed and/or edited this written report and agrees with it. Electronically signed by: Timothy Teixeira M.D. Destinee CELAYA IMG IR PROCEDURES Final Result documented in this encounter Visit Diagnoses Diagnosis Pancreatitis, necrotizing Acute pancreatitis Pancreatitis, necrotizing Acute pancreatitis documented in this encounter Administered Medications Inactive Administered Medications - up to 3 most recent administrations Medication Order MAR Action Action Date Dose Rate Site iothalamate meglumine (CONRAY) 60 % injection Code/trauma/sedation medication, Starting on 03/27/19 at 0923 Given 03/27/2019 9:23 AM CDT 10 mL documented in this encounter Active and Recently Administered Medications Times are shown in CDT. PRN Medication Order 2019 03/26/2019 03/27/2019 iothalamate meglumine (CONRAY) 60 % injection (COMPLETED) Code/trauma/sedation medication, Starting on 03/27/19 at 0923 0923 (Given - Provid er: Toy Quintana MD) documented in this encounter Orders Medications Ordered That Jamil ht Not Have Been Administered Count Last Ordered Date First Ordered Date iothalamate meglumine (CONRA Y) 60 % injection 1 03/27/2019 documented in this encounter Care Teams Crts Relationship Specialty Start Date End Date Thao Dove MD PCP - General 03/14/19 documented as of this encounter
--- OUTSIDE RECORDS SUMMARY | 2024-07-02 03:57 | XMS_ITS | Encounter Summary ---
Author Organization [facility] Facility Care Team Providers Care Lead Quality Technician Name Role Phone Thao Dove MD Primary Care Provider Encounter Details Date Type Department Care Team (Latest Contact Info) Description 04/03/2019 Travel Social History Tobacco Use Types Packs/Day [...] on filedocumented in this encounter Care Teams Lead Quality Technician Relationship Specialty Start Date End Date Thao Dove MD PCP - General 03/14/19 documented as of this encounter
--- OUTSIDE RECORDS SUMMARY | 2024-07-02 03:57 | XMS_ITS | Encounter Summary ---
Author Organization [facility] Address [address] [place] [address] Phone Care Team Providers Care Perfumer Name Role Phone Thao Dove MD Primary Care Provider Encounter Details Date Type Department Care Team (Late st Contact Info) Description 03/23/2019 Orders Only [facility] Gastroenterology [address] [facility] 8th [place] [address] [place] [id number] Toy Higuera MD [address] [place] [address] Pancreatitis, necrotizing (Primary Dx) Social History Tobacco [...] Progress Notes * Maliha Street RN - 03/23/2019 1:38 PM CDT c documented in this encounter Plan of Treatment Not on file documented as of this encounter Visit Diagnoses Diagnosis Pancreatitis, necrotizing- Primary Acute pancreatitis documented in this encounter Care Teams Perfumer Relationship Specialty Start Date End Date Thao Dove MD PCP - General 03/14/19 documented as of this encounter
--- OUTSIDE RECORDS SUMMARY | 2024-07-02 03:57 | XMS_ITS | Encounter Summary ---
Author Organization [facility] Address [address] [place] [address] Care Team Providers Care Forming Department Supervisor Name Role Phone Thao Dove MD Primary Care Provider Encounter Details Date Type Department Care Team (Late st Contact Info) Description 03/22/[address] [facility] Radiology [address] [address] Vera West RN Social History Tobacco Use [...] Telephone Encounter - Vera West RN - 03/22/2019 4:50 PM CDT Unable to reach patient at this time. documented in this encounter Plan of Treatment Not on file documented as of this encounter Visit Diagnoses Not on filedocumented in this encounter Care Teams Forming Department Supervisor Relationship Specialty Start Date End Date Thao Dove MD PCP - General 03/14/19 documented as of this encounter
--- OUTSIDE RECORDS SUMMARY | 2024-07-02 03:57 | XMS_ITS | Encounter Summary ---
Author Organization [facility] Address [address] [place] [id number] Care Team Providers Care Machine Brusher Name Role Phone Thao Dove MD Primary Care Provider Reason for Referral * Diagnostic Imaging (Routine) - Closed Specialty Diagnoses / Procedures Referred By Contac t Referred To Contact Radiology Diagnoses Pancreatitis, necrotizing Procedures IR Inject Abscess Catheter Toy Fish MD Phone: tel: fax: [address] [phone] Referral ID Status Reason Start Date Expiration Date Visits Re quested Visits Authorized [id number] Closed 04/07/2019 10/16/2020 1 1 * Diagnostic Imaging (Routine) - Closed Specialty Diagnoses / Procedures Referred By Contac t Referred To Contact Radiology Diagnoses Pancreatitis, necrotizing Procedures IR Inject Abscess Catheter Toy Fish MD Phone: tel: fax: [address] [address] Referral ID Status Reason Start Date Expiration Date Visits Re quested Visits Authorized [id number] Closed 03/27/2019 10/05/2020 1 1 Reason for Visit * Diagnostic Imaging (Routine) - Closed Specialty Diagnoses / Procedures Referred By Contac t Referred To Contact Radiology Diagnoses Pancreatitis, necrotizing Procedures IR Inject Abscess Catheter Toy Fish MD Phone: tel: fax: [address] [phone] Referral ID Status Reason Start Date Expiration Date Visits Re quested Visits Authorized [id number] Closed 03/27/2019 10/05/2020 1 1 Encounter Details Date Type Department Care Team (Late st Contact Info) Description 04/07/2019 6:09 AM CDT - 04/07/2019 8:40 AM CDT Hospital Encounter [facility] [address] [place] [address] Toy Fish MD [address] [facility] [address] [place], [place] [id number] Pancreatitis, necrotizing Discharge Disposition: Discharge to home [...] Sign Reading Time Taken Comments Blood Pressure 144/86 04/07/2019 8:25 AM CDT Pulse 69 04/07/2019 8:25 AM CDT Temperature 36.1 ??C (97 ??F) 04/07/2019 8:25 AM CDT Respiratory Rate 20 04/07/2019 8:25 AM CDT Oxygen Saturation 100% 04/07/2019 8:25 AM CDT Inhaled Oxygen Concentration - - Weight - - Height - - Body Mass Index - - documented in this encounter Discharge Diagnoses Diagnosis Encounter for change or removal of drains - ENCOUNTER FOR CHANGE OR REMOVAL OF DRAINS Other specified aftercare following surgery documented in this encounter Discharge Instructions * Discharge Instructions* Azeem Jackson MD PhD - 04/07/2019 8:37 AM CDT Interventional Radiology Outpatient Discharge Instructions/Note Diagnosis:Peripancreatic fluid collection in setting of necrotizing pancreatitis. This collection is being managed with a drain. Procedure: Percutaneous fluid collection drain check. Limitations: [] No lifting greater than 5 [...] and if it becomes wet or dirty. [x] Cover entire area with plastic and tape down edges before showering to keep site clean and dry. [] The suture at your dialysis access site may be removed by the dialysis staff on ___/___/___ (date). Drainage Tube Care: [x] Flush tube with [] 5ml Normal Saline [x] 10 ml Normal Saline twice a day [] Other: [] Flush tube [] once a day [] Other: [] Record drainage output every day. [] Your tube is capped. Uncap the tube after or if severe pain or fever develops. (Please see teaching sheet). [] Call Interventional Radiology if there is leakage around the tube or the tube stops draining. To contact an Interventional Radiologist at [facility] call [phone] Wednesday through Wednesday from 7:30am-4:30pm. At all other times call [phone] and ask that the Interventional Radiologist be paged. To contact an Interventional Radiologist at [facility] call [phone] Wednesday through Wednesday from 7:30am-3:30pm. Special instructions: Please call Interventional Radiology for any procedure related questions or problems including: ?? Extreme swelling or bruising at the site. ?? Unusual drainage or bleeding from procedure site. ?? Fever of 101.5 F for more than 24 hours. ?? Severe procedure related pain. Follow up care: [x] Return to Interventional Radiology in 10 days. Please come to: [] 3rd Floor [facility] [] 4th floor [facility] [] [facility] [] [facility] Please call [phone] to schedule a follow up appointment. You [...] documented in this encounter Nursing Notes * Rick Espinosa RN - 04/07/2019 8:10 AM CDT Pt assisted to table, all comfort and safety measures in place. documented in this encounter Miscellaneous Notes * Post-Procedure Note - Azeem Jackson MD PhD - 04/07/2019 8:37 AM CDT Radiology Brief Post Procedure Note Attending: Dr. Chacko Metal Furniture Panel Coverer: Dr. Jackson Sedation/Anesthesia: None Pre-Op/Pre-Procedure Diagnosis: Peripancreatic fluid collection Post-Op/Post-Procedure Diagnosis: Peripancreatic fluid collection Procedure Performed: Drain check. Procedure Findings: Interval decreased size of the fluid collection. Complications: None Estimated Blood Loss: < 30 ml Specimens: None Condition: Stable Full report to follow. * Pre-Procedure Note - Regan Dunaway MD - 04/07/2019 7:34 AM CDT Radiology Procedure Plan Indication: Pancreatitis. Patient reports about 100mL output per day. No fever, chills. Planned Procedure: drain check documented in this encounter Plan of Treatment Not on file documented as of this encounter Procedures Procedure Name Priority Date/Time Associated Diagnosis Comments ABSCESS CATHETER INJECTION Schedule Routine, Read Routine (OP Routine) 04/07/2019 8:25 AM CDT Pancreatitis, necrotizing documented in this encounter Results * IR Inject Abscess Catheter (04/19/2019 9:10 AM BUS COMPANY MANAGER) Anatomical Region Laterality Modality Body N/A Ultrasound 04/19/2019 1:08 PM BUS COMPANY MANAGER Impressions 04/19/2019 2:53 PM BUS COMPANY MANAGER Improving collection overall however imaging demonstrates a [...] questions arise, please contact us by calling [phone]. Dictated by: Marisa Santillan The radiology attending physician has personally reviewed this study, and had reviewed and/or edited this written report and agrees with it. Electronically signed by: Carmen Carr M.D. Narrative 04/19/2019 2:53 PM BUS COMPANY MANAGER EXAMINATION: ??DRAINAGE CATHETER EVALUATION AND EXCHANGE HISTORY: ??39-year-old female with necrotizing pancreatitis and a roddy-pancreatic fluid collection which is currently being managed with a 16-Filipino cope loop abscess drainage catheter which was placed on 03/17/2019. ??Most recent drain interrogation was 04/07/2019. Patient reports approximately 50 to 70 mL of drainage a day. ATTENDING PRESENCE: ??Carmen Carr M.D., the attending radiologist, was present from the beginning to the end of the procedure. SEDATION: ??The patient did not require conscious sedation for the procedure. TECHNIQUE: ??Prior to beginning the procedure, Hardwick Protocol was used to confirm the patient's identity and planned procedure. Fluoroscopy time has been recorded in the electronic medical record. Maximum sterile barriers including cap, mask, hand hygiene, sterile gloves, sterile gown, large sterile drape and 2% chlorhexidine for cutaneous antisepsis were used. After obtaining a under sheriff image, the catheter was injected with dilute contrast and multiple diagnostic fluoroscopic spot images were obtained. The skin overlying the collection was sterilely prepped, draped and infiltrated with 1% lidocaine. The catheter was then exchanged over a Monkeyseeson guidewire for a new 16-Filipino cope loop catheter. ??Limited contrast injection confirmed [...] which is currently being managed with a 16-Filipino cope loop abscess drainage catheter which was placed on 03/17/2019. Most recent drain interrogation was 04/07/2019. Patient reports approximately 50 to 70 mL of drainage a day. ATTENDING PRESENCE: Carmen Carr M.D., the attending radiologist, was present from the beginning to the end of the procedure. SEDATION: The patient did not require conscious sedation for the procedure. TECHNIQUE: Prior to beginning the procedure, Hardwick Protocol was used to confirm the patient's identity and planned procedure. Fluoroscopy time has been recorded in the electronic medical record. Maximum sterile barriers including cap, mask, hand hygiene, sterile gloves, sterile gown, large sterile drape and 2% chlorhexidine for cutaneous antisepsis were used. After obtaining a under sheriff image, the catheter was injected with dilute contrast and multiple diagnostic fluoroscopic spot images were obtained. The skin overlying the collection was sterilely prepped, draped and infiltrated with 1% lidocaine. The catheter was then exchanged over a Monkeyseeson guidewire for a new 16-Filipino cope loop catheter. Limited contrast injection confirmed [...] questions arise, please contact us by calling [phone]. Dictated by: Marisa Santillan The radiology attending physician has personally reviewed this study, and had reviewed and/or edited this written report and agrees with it. Electronically signed by: Carmen Carr M.D. Toy Fish MD IMG IR PROCEDURES Final Resul t * IR Inject Abscess Catheter (04/07/2019 8:25 [...] questions arise, please contact us by calling [phone]. Dictated by: Azeem Jackson M.D. The radiology attending physician has personally reviewed this study, and had reviewed and/or edited this written report and agrees with it. Electronically signed by: Bryon Chacko M.D. Narrative 04/07/2019 2:05 PM CDT EXAMINATION: ??DRAINAGE CATHETER EVALUATION AND REMOVAL HISTORY: ??39-year-old woman with necrotizing pancreatitis and peripancreatic fluid collection currently being managed with a 16 Filipino cope loop drainage catheter which was placed on 03/17/2019. The most recent drain check was on 03/27/2019. ATTENDING PRESENCE: ??Bryon Chacko M.D., the attending radiologist, was present from the beginning to the end of the procedure. SEDATION: ??The patient did not require conscious sedation for the procedure. TECHNIQUE: Prior to beginning the procedure, Hardwick Protocol was used to confirm the patient's identity and planned procedure. Fluoroscopy time has been recorded in the electronic medical record. After obtaining a under sheriff image, the catheter was injected with dilute [...] collection currently being managed with a 16 Filipino cope loop drainage catheter which was placed on 03/17/2019. The most recent drain check was on 03/27/2019. ATTENDING PRESENCE: Bryon Chacko M.D., the attending radiologist, was present from the beginning to the end of the procedure. SEDATION: The patient did not require conscious sedation for the procedure. TECHNIQUE: Prior to beginning the procedure, Hardwick Protocol was used to confirm the patient's identity and planned procedure. Fluoroscopy time has been recorded in the electronic medical record. After obtaining a under sheriff image, the catheter was injected with dilute [...] questions arise, please contact us by calling [phone]. Dictated by: Azeem Jackson M.D. The radiology attending physician has personally reviewed this study, and had reviewed and/or edited this written report and agrees with it. Electronically signed by: Bryon Chacko M.D. Toy Gardiner [facility] IMG IR PROCEDURES Final Resul t documented in this encounter Visit Diagnoses Diagnosis Pancreatitis, necrotizing Acute pancreatitis Pancreatitis, necrotizing Acute pancreatitis documented in this encounter Care Teams Machine Brusher Relationship Specialty Start Date End Date Thao Dove MD PCP - General 03/14/19 documented as of this encounter
--- OUTSIDE RECORDS SUMMARY | 2024-07-02 03:57 | XMS_ITS | Encounter Summary ---
Author Organization [facility] Healthcare Address [address] [place] [address] Care Team Providers Care Scrip Clerk Name Role Phone Thao Dove MD Primary Care Provider Reason for Referral * Diagnostic Imaging (Routine) - Closed Specialty Diagnoses / Procedures Referred By Contac t Referred To Contact Radiology Diagnoses Pancreatitis, necrotizing Procedures IR Inject Abscess Catheter Destinee Murcia PA Phone: tel: fax: [address] [address] Referral ID Status Reason Start Date Expiration Date Visits Re quested Visits Authorized [id number] Closed 03/20/2019 09/28/2020 1 1 Encounter Details Date Type Department Care Team (Latest Contact Info) Description 03/15/2019 12:10 AM CDT - 03/21/2019 12:21 PM CDT Hospital Encounter [address] [id number] Clarisse Diego MD [address] [place] [address] Chuckie Vega MD [address] [address] Eliz Marc MD [address] [place] [address] Maico Brar MD [address] [facility] [address] [place] [address] Pancreatitis, necrotizing (Primary Dx); Diagnosis unknown; ETOH abuse Discharge Disposition: Discharge to home or self [...] Sign Reading Time Taken Comments Blood Pressure 123/86 03/21/2019 9:00 AM CDT Pulse 73 03/21/2019 9:00 AM CDT Temperature 36.6 ??C (97.9 ??F) 03/21/2019 9:00 AM CD T Respiratory Rate 16 03/21/2019 9:00 AM CDT Oxygen Saturation 97% 03/21/2019 9:00 AM CDT Inhaled Oxygen Concentration - - Weight 81.8 kg (180 lb 4.8 oz) 03/15/2019 1:45 A M CDT Height 160 cm (5' 3 ) 03/15/2019 1:45 AM CDT Body Mass Index 31.94 03/15/2019 1:45 AM CDT documented in this encounter Discharge Diagnoses Diagnosis Acute pancreatitis with uninfected necrosis, unspecified - ACUTE PANCREATITIS WITH UNINFECTED NECROSIS, UNSPECIFIED Alcohol dependence with withdrawal, unspecified (HCC) - ALCOHOL DEPENDENCE WITH WITHDRAWAL, UNSPECIFIED Other ascites - OTHER ASCITES Nicotine dependence, cigarettes, uncomplicated - NICOTINE DEPENDENCE, CIGARETTES, UNCOMPLICATED Essential (primary) hypertension - ESSENTIAL (PRIMARY) HYPERTENSION Unspecified essential hypertension Noninfective gastroenteritis and colitis, unspecified - NONINFECTIVE GASTROENTERITIS AND COLITIS, UNSPECIFIED Fatty (change of) liver, not elsewhere classified - FATTY (CHANGE OF) LIVER, NOT ELSEWHERE CLASSIFIED Personal history of other venous thrombosis and embolism - PERSONAL HISTORY OF OTHER VENOUS THROMBOSIS AND EMBOLISM documented in this encounter Discharge Summaries * Trish Caballero MD - 03/21/2019 11:13 AM CDT Inpatient Discharge Summary BRIEF OVERVIEW Admitting Provider: Eliz Marc MD Discharge Provider: No att. providers found Primary Care Physician at Discharge: Derrell Osuna MD [phone] Admission Date: 03/15/2019 Discharge Date: 03/21/2019 Admission Location: [facility] Primary Discharge Diagnosis: Necrotizing pancreatitis Secondary Discharge Diagnosis: Pancreatitis, necrotizing ETOH abuse Hyperglycemia History of DVT (deep vein thrombosis) Fever DETAILS OF HOSPITAL STAY Presenting Problem/History of Present Illness: From HPI 03/15/19: The patient is a 38 y.o. female with a history of necrotizing pancreatitis with a recent admission in December 2018, etoh abuse, hypertension, and DVT who presented to [facility] on 03/09 for nausea, vomiting, and abdominal pain. Since her discharge in December she has continued to feel lethargic andhave a poor appetite. She reports that she was unable to hold food down and had nonbloody nonbilious vomiting. She described as 9/10 pain across across her abdomen which improved somewhat with pain medication and with eating but progressively worsened. She also described vision loss and feeling as though she could not get out of bed. She reports a weight loss of about 40 lb since January. She has experienced both diarrhea and constipation believe it is possible she has irritable bowel syndrome. She denies fevers, chills, headache, chest pain, dysuria, hematuria. ?? At [facility] an MRI showed necrotizing pancreatitis with numerous wall off areas of necrosis which had worsened since her admission on the as well as imaging evidence of hepatitis and necrosis in her right and left hepatic lobes. She received IV fluids, was treated with folic acid and thiamine for her alcohol use, Zofran for nausea, Ketoralac and Morphine for pain control, Ativan foralcohol withdrawal, and insulin for elevated blood sugars. She was afebrile throughout her admission at [place] but she occasionally was tachycardic to the low 100s. Her laboratory results were significant for lipase of 754, AST/ALT of 95/31, sodium of 127, potassium of 3.2, and a glucose of 324. Records indicate that during previous hospitalizations her lipase reached 24,000 in her transaminases were in the 600s. Her urine drug screen was positive for barbiturates and marijuana. She was able to tolerate a clear liquid diet. ?? Regarding her alcohol use she reports stopping drinking during her admission earlier this year. However she is to resume drinking roughly 1/5 of vodka every day in order to cope with withdrawal symptoms she was receiving Ativan at [facility]. She states that she has had hallucinations and tremors due to withdrawal before. Currently, her 3 children live with her relatives because she is unable to care for them due to her alcohol use. She has been drinking this heavily for roughly 3.5 years. She reports previously attending outpatient rehab but is was unsuccessful and so she is now interested in inpatient rehab. Hospital Course: Pancreatitis, necrotizing Ms. Lott was transferred from an OSH for necrotizing pancreatitis. GI- Biliary was consulted, who believed massive hepatomegaly and current drinking habits to be the first actionable targets. Shewas aggressively hydrated with NS, provided oxycodone 5mg q6h PRN for pain, and was monitoried initailly without starting antibiotics. Overnight on 03/16, she fevered to 101.8 and was started on cefe/flagyl. Given new onset fevers, ordered a CTAP w/contrast per biliary recs to evaluate pancreatic fluid collections and plan possible interventions, CT with interval increase in size of peripancreaticfluid collections, focal colitis at the splenic flexure abutting the necrotic pancreatic tissue, and common bile duct smooth wall thickening suggestive of possible cholangitis. Biliary believed nothing to do at the time. She fevered through cefe/flagyl to 100.4 and was broadened to meropenem on thePM 03/16. Blood cultures from 03/16 were No growth (final). She underwent percutaneous peripancreaticdrain placement with IR on 03/17, fluid gram stain without organisms and final cultures were no growth. The fever may have been related to inflammation versus actual infection, and she was transitioned to PO flagyl/levaquin on 03/19. The drain continued to put out 100- 200cc brownish fluid daily up until the date of discharge. She did not re-fever, and on 03/20 ID was consulted for outpatient antibiotic regimen recommendations regarding length of treatment. An EKG was done to monitor her QTc given their antibiotic recommendations, and her QTc was normal at 463. She was discharged in stable condition on flagyl 500 TID and ciprofloxacin 500 BID until 03/27. She has outpatient follow up with IR for drain management on 03/27/19 at 9am. She was provided with the number to our GI-Biliary specialists to schedule outpatient follow up. The patient was instructed on the importance of abstaining from alcohol especially while talking flagyl. ETOH abuse Prior to admission, patient continued to drink 1/5 of Vodka per day. Previously attempted outpatient rehab and is interested in again doing intensive outpatient treatment. Received ativan while at [facility] but did not receive any on the day of transfer and by the time of presentation to [facility] had been without alcohol for >5 days so was not placed on CIWA. She was monitored for any signsof withdrawal and did not require any ativan. She was continued on 100mg thiamine and 1mg folic acid daily and discharged with these medications. Social work was consulted and provided rehab/ abstinence resources, and the patient plans to attend AA at her local [facility] and is motivated to abstain. History of DVT (deep vein thrombosis) Reported on paperwork from [facility] in [facility], however patient has no recall of having prior DVT and was not on any outpatient anticoagulation. She was kept on lovenox for ppx. Active Issues Requiring Follow-up: See above regarding IR percutaneous drain management Test Results Pending at Discharge: Order Current Status Vitamin B12 In process Blood Cultures No Growth Peripancreatic Fluid Cultures No Growth Operative Procedures Performed: N/A Other Procedures: IR percutaneous drain placement: FINDINGS: Images from the procedure revealed multiple interconnected fluid collections. The fluid appeared dark brown. An approximate volume of 20 cc was drained at the time of the procedure. ?? IMPRESSION: Successful image guided peripancreatic fluid collection drainage with a 16-[place] loop drainage catheter. ?? PLAN: This tube should flushed with 20 mL of saline twice a day The patient should follow-up for drain evaluation in 7 days. Pertinent Test Results: CT Abd/Pelvis w/contrast: IMPRESSION: 1. Findings consistent with necrotic pancreatitis with interval increase in size of the peripancreatic fluid collections and no evidence of vascular complications except for occlusion of the splenic vein. 2.Nodular densities in hepatic segment 7, 8 and 2 with associated common bile duct smooth wall thickening is favored to represent cholangitis and is better evaluated with prior body MRI. No hepatic abscess. 3. Focal colitis at the splenic flecture with: Abuts the necrotic pancreatic collection. 4. Small volume ascites and diffuse anasarca. 5. Severe hepatic steatosis. Discharge Details Physical Exam at Discharge: Discharge Condition: stable Pulse: 73 Resp: 16 BP: 123/86 Temp: 36.6 ??C (97.9 ??F) Weight: 81.8 kg (180 lb 4.8 oz) Pertinent Exam Findings at Discharge: General: NAD, sitting up in bed eating breakfast HEENT: improving scleral icterus, MMM Neck: Supple, no LAD or JVD. CV: RRR, 2/6 systolic murmur heard best at RUSB Lungs: CTAB, no crackles or wheezes. Abdomen: Soft,??improving distension, non-tender to palpation over RUQ and epigastric region, +bowel sounds, no rebound tenderness??or guarding, some mild tenderness to palpation near drain insertionsite, dressing C/D/I Extremities: No edema, WWP. MSK: GODDARD Skin: No rashes, no jaundice Neuro: A+Ox4, no focal deficits. Psych: Pleasant and cooperative. Discharge Disposition: Discharge to home or self care Code Status at Discharge: Full Discharge Instructions: Activity Instructions Discharge activity: Resume normal activity Diet Instructions Adult Discharge Diet Diet Type: Low fat intake Other Instructions Call provider for: Temperature -Temperature greater than 101 degrees F Call provider for: persistent nausea or vomiting Call provider for: redness, tenderness, or signs of infection (pain, swelling, redness, odor or green/yellow discharge around incision site) Tube or drain care Monitor and record output Flush with 20ml normal saline 2x daily Discharge Medications: Current Medications TAKE these medications ciprofloxacin 500 mg tablet Commonly known as: CIPRO Take 1 tablet (500 mg total) by mouth 2 (two) times a day for 6 days folic acid 1 mg tablet Commonly known as: FOLVITE Take 1 tablet (1 mg total) by mouth daily Start taking on: 03/22/2019 metroNIDAZOLE 500 mg tablet Commonly known as: FLAGYL Take 1 tablet (500 mg total) by mouth 3 (three) times a day for 6 days nicotine 7 mg Commonly known as: NICODERM CQ Place 1 patch on the skin daily Start taking on: 03/22/2019 oxyCODONE 5 mg immediate release tablet Commonly known as: ROXICODONE Take 1 tablet (5 mg total) by mouth every 8 (eight) hours as needed for pain thiamine 100 mg tablet Commonly known as: VITAMIN B1 Take 1 tablet (100 mg total) by mouth daily Start taking on: 03/22/2019 Outpatient Follow-Up: Future Appointments Date Time Provider Department [place] 03/27/2019 9:00 AM [facility] N IR [address] [facility] N IR [facility] Main IMG Contact Information for Follow-ups Derrell Osuna MD Specialty: Family Practice, Family Medicine Relationship: PCP - General [address] [place] [address] Next Steps: Follow up in 3 day(s) Instructions: Your doctor's office only allows the patient to schedule a follow up appointment withthe patient's primary care doctor. It is important you call to schedule a follow up appointment within 3-5 days of discharge from the hospital. Follow-up with providerPlease call to make an apointment with our Biliary specialists (Within the Gastroenterology Department): [phone] Next Steps: Follow up Instructions: Please call to make an apointment with our Biliary specialists (Within the Gastroenterology Department): [phone] Questions: Instructions for follow-up (appointment date and time): Please call to make an apointment with our Biliary specialists (Within the Gastroenterology Department): [phone] Cosigned by Maico Brar MD at 03/21/2019 1:41 PM CDT documented in this encounter Discharge Instructions * Discharge Instructions* Trish Caballero MD - 03/21/2019 11:16 AM CDT Caring for your Percutaneous Abscess Drain Call Interventional Radiology at during regular business hours (Wednesday-Wednesday 7:30 AM-4:00 PM) if you have any of the following: A new fever that is higher than 101.1??F (38.4??C) Swelling or redness at the drainage catheter Increased drainage around the drainage catheter The tube is pulled out or pulled back Increased pain at or near the tube site Signs that the tube is clogged (see below) Bloody drainage in the drainage bag No drainage in the tube for the past 24 hours Note: During nights and weekends, please call and ask for the Interventional Radiologist on-call to be paged. Caring for your drainage catheter at home: 1. Protect the tube from being pulled out or dislodged. 2. Position the tube or bag by keeping it taped securely below the insertion site for best drainageand comfort. 3. Empty the bag when it is half-full or every day (whichever happens first). Record the output on the log sheet each time you empty the bag. 4. Wash your hands before and after any contact with the tube or bag. 5. Keep the dressing around the tube insertion site as dry as possible. Do not swim, go in a hot tub or take a tub bath while the tube is in place. 6. Change the dressing around your drainage catheter twice a week or when it becomes soiled. Signs that your catheter is clogged: 1. Sudden decrease in the amount of drainage. For example, the tube has drained 50 cc each of the last 4 days but nothing has drained today. 2. Leakage at the skin around the tube. This occurs because the fluid that would normally come out through the catheter is now draining at the skin around the catheter. 3. Decrease in drainage along with skin redness, swelling or increased tenderness at the tube site.This occurs because the fluid that would normally come out through the catheter is building up under the skin. Flushing your drainage catheter: Flush your catheter with 20 cc of saline twice daily. 1. Use an alcohol prep pad to clean the connection between the drainage catheter and bag. 2. Remove the drainage bag. 3. Attach a 10 ml syringe of sterile normal saline to the hub of the drainage catheter. Inject saline into the tube. You usually do not need to pull the fluid back into the syringe. 4. Reconnect the drainage bag. Please track the amount of drainage from your catheter using the table and bring this sheet to yourfollowup appointment with us. That appointment is scheduled for Date: Wednesday03/27/2019 Time: 9:00 AM (arrive 1 hour early) Location: [address] [place] [address] -- Interventional Radiology Date Time Amount Color/Description Comments This handout is for your general information only. The lists above are guidelines and do not include all symptoms or conditions. This document is not a substitute for being seen by a doctor. Always call your doctor if you have any questions or problems. If your condition gets worse, call your doctor or go to the emergency room. * Attachments The following attachments cannot be sent through Care Everywhere. * Pancreatitis (AfterCare(R) Instructions(ER/ED)) (Dutch) documented in this encounter Medications at Time [...] Refills Last Filled Start Date End Date thiamine (VITAMIN B1) 100 mg tablet Take 1 tablet (100 mg total) by mouth daily 30 tablet 1 03/22/2019 09/28/2019 oxyCODONE (ROXICODONE) 5 mg immediate release tabletIndications: Pain Take 1 tablet (5 mg total) by mouth every 8 (eight) hours as needed for pain 9 tablet 03/21/2019 05/26/2019 nicotine (NICODERM CQ) [address] 1 patch on the skin daily 30 patch 03/22/2019 06/16/2019 metroNIDAZOLE (FLAGYL) 500 mg tabletIndications: Abdominal/Pelvic Infection Take 1 tablet (500 mg total) by mouth 3 (three) times a day for 6 days 18 tablet 03/21/2019 03/27/2019 folic acid (FOLVITE) 1 mg tablet Take 1 tablet (1 mg total) by mouth daily 30 tablet 1 03/22/2019 09/28/2019 ciprofloxacin (CIPRO) 500 mg tabletIndications: Abdominal/Pelvic Infection Take 1 tablet (500 mg total) by mouth 2 (two) times a day for 6 days 12 tablet 03/21/2019 03/27/2019 documented in this encounter Discharge Disposition Disposition Code Departure Means Destination Discharge to home or self care documented in this encounter Progress Notes * Mary Rawls RN - 03/21/2019 12:00 PM CDT 03/21/19 1100 Discharge Summary Chart reviewed For Medical Necessity [...] Up Providers) Patient is medically stable for discharge to home today. Per team, Home Health and DME not indicated for this patient. Family will provide transportation home. Argenis ANDINO provided drain teaching and sent home with drain supplies. Patient plans to stay with her sister in law who is a nurse practitionerwho can assist her with drain care. Patient's PCP would not allow CM to make follow up, patient informed of needing to schedule a post hospital follow up appt. Patient agrees to plan for discharge. Project Specialist will continue to follow discharge plan of care until the patient is discharged. If needed, please contact me at [phone] * Trish Caballero MD - 03/21/2019 6:56 AM CDT Medicine Daily Progress Note Name: Marisa Lott Today: 03/21/19 : 1980 Age: 38 y.o. Admit: 03/15/2019 Bed: [id number] Subjective Chief complaint: Abdominal pain Interval History: -Seen by ID, recommended switching to ciprofloxacin q12h (EKG with QTc 463), and keep [id number] with antibiotics continued through 03/27. -No acute overnight events, denies CP, SOB, has some mild abdominal pain at the site of the drain. Tolerating low fat diet without N/V, last BM 03/20 -Percutaneous drain with 165ml brown fluid in last 24h, Culture no growth, BCx 03/16 NGTD Objective Scheduled Meds: ciprofloxacin 500 mg oral BID - special enoxaparin 40 mg subcutaneous Daily-2100 folic acid 1 mg oral Daily metroNIDAZOLE 500 mg oral Q8H nicotine 1 patch transdermal Daily oxyCODONE 5 mg oral Q8H polyethylene glycol 17 g oral Daily sodium chloride 0.9% 0.5-20 mL intra-catheter Q8H EDIE sodium chloride 0.9% 0.5-20 mL intra-catheter Q8H EDIE sodium chloride 0.9% 20 mL intra-catheter Q12H thiamine 100 mg oral Daily Infusions: PRN Meds: ??? acetaminophen ??? sodium chloride 0.9% ??? sodium chloride 0.9% Vitals: 24hr Min/Max: Temp Min: 36.3 ??C (97.3 ??F) Max: 36.7 ??C (98.1 ??F) Pulse Min: 62 Max: 73 BP Min: 123/86 Max: 147/88 Resp Min: 16 Max: 18 SpO2 Min: 97 % Max: 100 % Most Recent: Vitals: 03/21/19 0900 BP: 123/86 Pulse: 73 Resp: 16 Temp: 36.6 ??C (97.9 ??F) SpO2: 97% I/O last 2 completed shifts: In: 270 [P.O.:240; I.V.:10; Other:20] Out: 165 [Drains:165] No intake/output data recorded. Lab Results Component Value Date WBC 7.2 03/20/2019 HGB 10.6 (L) 03/20/2019 HCT 32.9 (L) 03/20/2019 MCV 108.6 (H) 03/20/2019 LABPLAT 360 03/20/2019 Lab Results Component Value Date GLUCOSE 122 03/20/2019 CALCIUM 9.5 03/20/2019 SODIUM 135 03/20/2019 POTASSIUM 4.1 03/20/2019 CO2 26 03/20/2019 CHLORIDE 101 03/20/2019 BUNSER <2 (L) 03/20/2019 CREATININE 0.46 (L) 03/20/2019 Physical Exam: General: NAD, sitting up in bed eating breakfast HEENT: improving scleral icterus, MMM Neck: Supple, no LAD or JVD. CV: RRR, 2/6 systolic murmur heard best at RUSB Lungs: CTAB, no crackles or wheezes. Abdomen: Soft, improving distension, non-tender to palpation over RUQ and epigastric region, +bowelsounds, no rebound tenderness or guarding, some mild tenderness to palpation near drain insertion site, dressing C/D/I Extremities: No edema, WWP. MSK: GODDARD Skin: No rashes, no jaundice Neuro: A+Ox4, no focal deficits. Psych: Pleasant and cooperative. Lab/Radiology/Diagnostic Review: Recent Results (from the past 24 hour(s)) CBC with auto differential Collection Time: 03/20/19 9:04 PM Result Value Ref Range WBC 7.2 3.8 - 9.9 K/cumm Hgb 10.6 (L) 11.9 - 15.5 g/dL Hct 32.9 (L) 35.6 - 45.5 % Plt 360 150 - 400 K/cumm MPV 9.8 9.1 - 12.3 fL RBC 3.03 (L) 3.90 - 5.20 M/cumm MCV 108.6 (H) 81.3 - 96.4 fL MCH 35.0 (H) 27.1 - 33.3 pg MCHC 32.2 (L) 32.3 - 35.7 g/dL RDW CV 17.6 (H) 11.1 - 14.9 % RDW SD 70.4 (H) 35.7 - 48.1 fL NRBC abs 0.00 0.00 - 0.01 K/cumm Comprehensive metabolic panel Collection Time: 03/20/19 9:04 PM Result Value Ref Range Sodium 135 135 - 145 mmol/L Potassium, pl 4.1 3.3 - 4.9 mmol/L Chloride 101 97 - 110 mmol/L CO2 26 22 - 32 mmol/L Anion gap 8 2 - 15 mmol/L BUN <2 (L) 8 - 25 mg/dL Creatinine 0.46 (L) 0.60 - 1.10 mg/dL Glucose 122 70 - 199 mg/dL Calcium 9.5 8.5 - 10.3 mg/dL Bilirubin, total 2.2 (H) 0.1 - 1.2 mg/dL Protein, pl 6.4 (L) 6.5 - 8.5 g/dL Albumin 2.2 (L) 3.5 - 5.0 g/dL Alk phos 171 (H) 40 - 130 Units/L ALT 29 7 - 45 Units/L AST 98 (H) 10 - 45 Units/L Differential, auto Collection Time: 03/20/19 9:04 PM Result Value Ref Range Neutrophil abs 3.8 1.7 - 6.5 K/cumm Imm gran abs 0.1 0.0 - 0.1 K/cumm Lymphocyte abs 2.5 0.8 - 3.3 K/cumm Monocyte abs 0.7 0.2 - 0.8 K/cumm Eosinophil abs 0.1 0.0 - 0.5 K/cumm Basophil abs 0.0 0.0 - 0.1 K/cumm Neutrophil pct 51.8 % Imm gran pct 1.7 % Lymphocyte pct 34.6 % Monocyte pct 9.4 % Eosinophil pct 1.9 % Basophil pct 0.6 % Hepatitis C antibody Collection Time: 03/20/19 9:04 PM Result Value Ref Range HCV ab Nonreactive Nonreactive HIV 1/2 Antibody plus p24 Antigen Collection Time: 03/21/19 6:53 AM Result Value Ref Range HIV 1/2 Ab + p24 Ag Nonreactive Nonreactive Additional tests: Imaging Results: No results found. Image Guided Drainage Peritoneal or Retroperitoneal Fluid Collection Narrative: EXAMINATION: PERCUTANEOUS DRAINAGE (STD) HISTORY/INDICATION: 38-year-old woman with necrotizing pancreatitis presents with fever and CT findings of a peripancreatic fluid collection. Request for percutaneous drainage was made. ATTENDING PRESENCE: French Leiva M.D., the attending radiologist was present from the beginning to the end of the procedure. SEDATION: Procedural sedation was administered under the attending physician's direction and continuous monitoring by a trained nurse specialist who was independent from those actually performing the procedure. Total monitored sedation time was 20 minutes. TECHNIQUE: The risks, benefits and alternatives were discussed and informed consent was obtained. Prior to beginning the procedure, Myra Protocol was used to confirm the patient's identity and planned procedure. If fluoroscopy was used, fluoroscopy time has been recorded in the electronic medical record. Maximum sterile barriers including cap, mask, hand hygiene, sterile gloves, sterile gown, large sterile drape and 2% chlorhexidine for cutaneous antisepsis were used. The skin overlying the fluid collection in the left side was sterilely prepped, draped and infiltrated with 1% buffered lidocaine. The targeted collection was then accessed with a 21 gauge needle using imaging guidance which included ultrasound and fluoroscopy. Contrast was injected to confirm needle placement. A guidewire was advanced and coiled within the collection before dilating the tract to 16 Fr. A 16-[place] loop drainage catheter was then advanced over the guidewire and secured in place with a stitch of 0-Prolene. The catheter was connected to gravity drainage. A sterile dressing was applied. A sample of the fluid was sent for culture ESTIMATED BLOOD LOSS: Minimal. CONDITION: Stable DISCHARGED TO: Recovery and then to inpatient unit. FINDINGS: Images from the procedure revealed multiple interconnected fluid collections. The fluid appeared dark brown. An approximate volume of 20 cc was drained at the time of the procedure. Impression: Successful image guided peripancreatic fluid collection drainage with a 16-[place] loop drainage catheter. PLAN: This tube should flushed with 20 mL of saline twice a day The patient should follow-up for drain evaluation in 7 days. Dictated by: Toy Ru Quintana, M.D. The radiology attending physician has personally reviewed this study, and had reviewed and/or edited this written report and agrees with it. Electronically signed by: French Leiva M.D. Assessment Plan Pancreatitis, necrotizing Assessment & Plan -Consulted GI-Biliary. Massive hepatomegaly and current drinking habits are the first actionable target. Given new onset fevers overnight as above, ordred CTAP w/contrast per biliary recs to evaluatepancreatic fluid collections and plan possible interventions -Tylenol and Oxycodone 5 mg q6h prn for pain control, bowel regimen in place -Aggressively hydrated -03/16 Fever to 101.8, started on flagyl/cefe, broadened to herlinda in PM given re-fever -03/[address] drainage of [...] QTc 463), metronidazole 500 q12h until 03/27 Fever Assessment & Plan Febrile to 101.8 F overnight 03/15-03/16, no [...] and Pelvis w/contrast to evaluate pancreatic fluid collectionsas source for new fever, demonstrated interval increase [...] ID recs; no fever since PM 03/16 History of DVT (deep vein thrombosis) Assessment & Plan Reported on paperwork from [facility] in [place], however patient has no recall of having prior DVT and was not on any outpatient anticoagulation. -On lovenox for ppx Hyperglycemia Assessment & Plan Patient reports having blood sugars in the 300s while admitted at [place]. Blood sugar here is 95 but in the setting of poor PO intake. -A1c 5.3 -Monitor sugars ETOH abuse Assessment & Plan Continues to drink 1/5 of Vodka per day. Previously attempted outpatient rehab but is interested ininpatient rehab. Received ativan while at [facility]. -Patient without etoh in 5 days, likely no need to etoh withdrawal scale at this time -Thiamine 100 mg, folic acid 1 mg every day -Social work consulted for rehab/ abstinence resources Access: PIV Diet: Low Fat, Low Chol DVT ppx: Lovenox Dispo: home03/21 [facility] Internal Medicine, PGY1 Cosigned by Maico Brar MD at 03/21/2019 1:42 PM CDT Associated attestation - Maico Brar MD - 03/21/2019 1:42 PM CDT I have seen and examined the patient on 03/21/19. I agree with the findings and plan of care as documented in the resident's/fellow's note. No new c/o. Plan d/c on cipro. EKGs reviewed with reasonable Qtc. Pt will f/u with [facility], discussed with pt if high output doesn't improve would need biliary f/u to discuss eval of PD leak via ERCP. * Lorena Granger MD - 03/20/2019 9:07 AM CDT Radiology Progress Note Interval History: Pt. with clear brown drainage from the tube. She feels well without any distress,pain or fever. Exam: Hydrated. Mucosa pink. Abd: soft , non tender. Assessment and Plan: Patient will be dc and she may need a follow up appointment for tube check ( 03/27 at 9 am). * Trish Caballero MD - 03/20/2019 7:02 AM CDT Medicine Daily Progress Note Name: Marisa Lott Today: 03/20/19 : 1980 Age: 38 y.o. Admit: 03/15/2019 Bed: [id number] Subjective Chief complaint: Abdominal pain Interval History: -No acute overnight events -Complained of some BLE swelling last night, no pain redness, SOB/CP, requested SCDs. -Feels well this AM, still some abdominal pain near drain site. Otherwise danae F/C, SOB, Chest pain, N/V. Has been tolerating low fat diet without issue. -Switched to levaquin/flagyl PO on 03/19, patient tolerated without re-fevering, consulted ID regarding duration of antibiotic treatment with possible outpatient ID follow-up -Percutaneous drain with 125ml brown fluid in last 24h, Culture no growth to date, BCx 03/16 NGTD Objective Scheduled Meds: enoxaparin 40 mg subcutaneous Daily-2100 folic acid 1 mg oral Daily levoFLOXacin 750 mg oral Daily - 0600 metroNIDAZOLE 500 mg oral Q8H nicotine 1 patch transdermal Daily oxyCODONE 5 mg oral Q8H polyethylene glycol 17 g oral Daily sodium chloride 0.9% 0.5-20 mL intra-catheter Q8H EDIE sodium chloride 0.9% 0.5-20 mL intra-catheter Q8H EDIE sodium chloride 0.9% 20 mL intra-catheter Q12H thiamine 100 mg oral Daily Infusions: PRN Meds: ??? acetaminophen ??? ondansetron ODT OR ondansetron ??? sodium chloride 0.9% ??? sodium chloride 0.9% Vitals: 24hr Min/Max: Temp Min: 36.4 ??C (97.5 ??F) Max: 36.8 ??C (98.2 ??F) Pulse Min: 70 Max: 80 BP Min: 126/83 Max: 148/88 Resp Min: 17 Max: 18 SpO2 Min: 98 % Max: 100 % Most Recent: Vitals: 03/20/19 0925 BP: 126/83 Pulse: 80 Resp: 18 Temp: 36.8 ??C (98.2 ??F) SpO2: 98% I/O last 2 completed shifts: In: 40 [I.V.:20; Other:20] Out: 125 [Drains:125] No intake/output data recorded. Lab Results Component Value Date WBC 6.6 03/19/2019 HGB 9.1 (L) 03/19/2019 HCT 29.0 (L) 03/19/2019 MCV 108.2 (H) 03/19/2019 LABPLAT 343 03/19/2019 Lab Results Component Value Date GLUCOSE 122 03/19/2019 CALCIUM 8.4 (L) 03/19/2019 SODIUM 138 03/19/2019 POTASSIUM 4.5 03/19/2019 CO2 26 03/19/2019 CHLORIDE 105 03/19/2019 BUNSER 3 (L) 03/19/2019 CREATININE 0.47 (L) 03/19/2019 Physical Exam: General: NAD, resting comfortably in bed sleeping HEENT: +scleral icterus, MMM Neck: Supple, no LAD or JVD. CV: RRR, 2/6 systolic murmur heard best at RUSB Lungs: CTAB, no crackles or wheezes. Abdomen: Soft, improving distension, non-tender to palpation over RUQ and epigastric region, +bowelsounds, no rebound tenderness or guarding, some mild tenderness to palpation near drain insertion site, dressing C/D/I Extremities: No edema, WWP. MSK: GODDARD Skin: No rashes, + improving jaundice Neuro: A+Ox4, no focal deficits. Psych: Pleasant and cooperative. Lab/Radiology/Diagnostic Review: Recent Results (from the past 24 hour(s)) CBC with auto differential Collection Time: 03/19/19 8:57 PM Result Value Ref Range WBC 6.6 3.8 - 9.9 K/cumm Hgb 9.1 (L) 11.9 - 15.5 g/dL Hct 29.0 (L) 35.6 - 45.5 % Plt 343 150 - 400 K/cumm MPV 10.2 9.1 - 12.3 fL RBC 2.68 (L) 3.90 - 5.20 M/cumm MCV 108.2 (H) 81.3 - 96.4 fL MCH 34.0 (H) 27.1 - 33.3 pg MCHC 31.4 (L) 32.3 - 35.7 g/dL RDW CV 17.7 (H) 11.1 - 14.9 % RDW SD 69.5 (H) 35.7 - 48.1 fL NRBC abs 0.00 0.00 - 0.01 K/cumm Comprehensive metabolic panel Collection Time: 03/19/19 8:57 PM Result Value Ref Range Sodium 138 135 - 145 mmol/L Potassium, pl 4.5 3.3 - 4.9 mmol/L Chloride 105 97 - 110 mmol/L CO2 26 22 - 32 mmol/L Anion gap 7 2 - 15 mmol/L BUN 3 (L) 8 - 25 mg/dL Creatinine 0.47 (L) 0.60 - 1.10 mg/dL Glucose 122 70 - 199 mg/dL Calcium 8.4 (L) 8.5 - 10.3 mg/dL Bilirubin, total 2.3 (H) 0.1 - 1.2 mg/dL Protein, pl 6.2 (L) 6.5 - 8.5 g/dL Albumin 2.2 (L) 3.5 - 5.0 g/dL Alk phos 170 (H) 40 - 130 Units/L ALT 34 7 - 45 Units/L AST 110 (H) 10 - 45 Units/L Differential, auto Collection Time: 03/19/19 8:57 PM Result Value Ref Range Neutrophil abs 3.9 1.7 - 6.5 K/cumm Imm gran abs 0.1 0.0 - 0.1 K/cumm Lymphocyte abs 2.0 0.8 - 3.3 K/cumm Monocyte abs 0.5 0.2 - 0.8 K/cumm Eosinophil abs 0.1 0.0 - 0.5 K/cumm Basophil abs 0.0 0.0 - 0.1 K/cumm Neutrophil pct 59.7 % Imm gran pct 1.1 % Lymphocyte pct 29.7 % Monocyte pct 7.6 % Eosinophil pct 1.4 % Basophil pct 0.5 % Additional tests: Imaging Results: No results found. Image Guided Drainage Peritoneal or Retroperitoneal Fluid Collection Narrative: EXAMINATION: PERCUTANEOUS DRAINAGE (STD) HISTORY/INDICATION: 38-year-old woman with necrotizing pancreatitis presents with fever and CT findings of a peripancreatic fluid collection. Request for percutaneous drainage was made. ATTENDING PRESENCE: French Leiva M.D., the attending radiologist was present from the beginning to the end of the procedure. SEDATION: Procedural sedation was administered under the attending physician's direction and continuous monitoring by a trained nurse specialist who was independent from those actually performing the procedure. Total monitored sedation time was 20 minutes. TECHNIQUE: The risks, benefits and alternatives were discussed and informed consent was obtained. Prior to beginning the procedure, Myra Protocol was used to confirm the patient's identity and planned procedure. If fluoroscopy was used, fluoroscopy time has been recorded in the electronic medical record. Maximum sterile barriers including cap, mask, hand hygiene, sterile gloves, sterile gown, large sterile drape and 2% chlorhexidine for cutaneous antisepsis were used. The skin overlying the fluid collection in the left side was sterilely prepped, draped and infiltrated with 1% buffered lidocaine. The targeted collection was then accessed with a 21 gauge needle using imaging guidance which included ultrasound and fluoroscopy. Contrast was injected to confirm needle placement. A guidewire was advanced and coiled within the collection before dilating the tract to 16 Fr. A 16-[place] loop drainage catheter was then advanced over the guidewire and secured in place with a stitch of 0-Prolene. The catheter was connected to gravity drainage. A sterile dressing was applied. A sample of the fluid was sent for culture ESTIMATED BLOOD LOSS: Minimal. CONDITION: Stable DISCHARGED TO: Recovery and then to inpatient unit. FINDINGS: Images from the procedure revealed multiple interconnected fluid collections. The fluid appeared dark brown. An approximate volume of 20 cc was drained at the time of the procedure. Impression: Successful image guided peripancreatic fluid collection drainage with a 16-[place] loop drainage catheter. PLAN: This tube should flushed with 20 mL of saline twice a day The patient should follow-up for drain evaluation in 7 days. Dictated by: Toy Quintana M.D. The radiology attending physician has personally reviewed this study, and had reviewed and/or edited this written report and agrees with it. Electronically signed by: French Leiva M.D. Assessment Plan Fever Assessment & Plan Febrile to 101.8 F overnight, no clear [...] and Pelvis w/contrast to evaluate pancreatic fluid collectionsas source for new fever, demonstrated interval increase in size of peripancreatic fluid collections, +/- cholangitis, focal colitis at splenic flexure abutting necrotic pancreatic fluid -03/16 AM Started IV Cefe/Flagyl AM-> broadened to meropenem PM 03/16 due to re- fever, BCx NGTD, UA w/out infection -03/17 IR placed drain, 20cc brown drainage immediately with placement; gram stain without visible organisms, only rare PMNs, culture NGTD -03/18 drain with >250cc brown fluid, CTM. Per IR, will keep drain in place until ~<15cc output/day, can discharge with this in place and follow up as outpatient (scheduled 03/27 at 9am) -03/19 transitioned to PO flagyl 500 q8h, levaquin 750mg q24h -03/20 tolerating oral ABx, no fever, drain with 125cc brown fluid, will discharge w/ drain. ID consulted regarding antibiotic duration History of DVT (deep vein thrombosis) Assessment & Plan -On lovenox Hyperglycemia Assessment & Plan Patient reports having blood sugars in the 300s while admitted at [place]. Blood sugar here is 95 but in the setting of poor PO intake. -A1c 5.3 -Monitor sugars Pancreatitis, necrotizing Assessment & Plan -Consulted GI-Biliary. Massive hepatomegaly and current drinking habits are the first actionable target. Given new onset fevers overnight as above, ordred CTAP w/contrast per biliary recs to evaluatepancreatic fluid collections and plan possible interventions -Tylenol and Oxycodone 5 mg q6h prn for pain control, bowel regimen in place -Aggressively hydrated -03/[address] in place drainage of brown fluid; no organisms on gram stain, few PMNs, culture NGTD -03/18 Advanced to full low fat diet, discontinued fluids given adequate PO intake -03/19 Transitioned to oral flagyl 500 q8h, levaquin 750 q24h, has not had another fever -03/20 Consulted ID regarding duration of antibiotic treatment; last 24 hrs 125mL brown fluid drained, updated oxycodone to 5mg q8h PRN (from q6h PRN). Potential D/C to home today or tomorrow with services for drain management. ETOH abuse Assessment & Plan Continues to drink 1/5 of Vodka per day. Previously attempted outpatient rehab but is interested ininpatient rehab. Received ativan while at [facility]. -Patient without etoh in 5 days, likely no need to etoh withdrawal scale at this time -Thiamine 100 mg, folic acid 1 mg every day -Social work consulted for rehab/ abstinence resources Access: PIV Diet: Low Fat, Low Chol DVT ppx: Lovenox Dispo: likely to home 03/20 or 03/21 pending outpatient antibiotic plan [facility], PGY1 Cosigned by Maico Brar MD at 03/20/2019 1:50 PM CDT Associated attestation - Maico Brar MD - 03/20/2019 1:50 PM CDT I have seen and examined the patient on 03/20/19. I agree with the findings and plan of care as documented in the resident's/fellow's note. Pain improved, tolerating diet. 1) Necrotizing pancreatitis > encouraged ETOH abstinence - she is aware of resources locally 2) Sepsis in setting of necrotizing pancreatitis - ?2/2 infected collection though gram stain/culture negative; has improved with drainage and abx- will ask ID to consult to determine abx/course - ?cont until drain removal * Trish Caballero MD - 03/19/2019 7:04 AM CDT Medicine Daily Progress Note Name: Marisa Lott Today: 03/19/19 : 1980 Age: 38 y.o. Admit: 03/15/2019 Bed: [id number] Subjective Chief complaint: Abdominal pain Interval History: -Feels well this AM, no abdominal pain, fevers, chills, SOB, chest pain, N/V. Has been tolerating full low fat diet. Plan to transition to oral ABx today: flagyl/levaquin (gram stain no organisms, culture NGTD) -Percutaneous drain with 275ml brown fluid out, Culture no growth to date Objective Scheduled Meds: enoxaparin 40 mg subcutaneous Daily-2100 folic acid 1 mg oral Daily levoFLOXacin 750 mg oral Daily - 0600 metroNIDAZOLE 500 mg oral Q8H nicotine 1 patch transdermal Daily polyethylene glycol 17 g oral Daily sodium chloride 0.9% 0.5-20 mL intra-catheter Q8H EDIE sodium chloride 0.9% 0.5-20 mL intra-catheter Q8H EDIE sodium chloride 0.9% 20 mL intra-catheter Q12H thiamine 100 mg oral Daily Infusions: PRN Meds: ??? acetaminophen ??? ondansetron ODT OR ondansetron ??? oxyCODONE ??? sodium chloride 0.9% ??? sodium chloride 0.9% Vitals: 24hr Min/Max: Temp Min: 36.5 ??C (97.7 ??F) Max: 36.7 ??C (98.1 ??F) Pulse Min: 66 Max: 115 BP Min: 97/71 Max: 135/81 Resp Min: 18 Max: 18 SpO2 Min: 94 % Max: 100 % Most Recent: Vitals: 03/19/19 0310 BP: 135/81 Pulse: 66 Resp: 18 Temp: 36.5 ??C (97.7 ??F) SpO2: 99% I/O last 2 completed shifts: In: 150 [I.V.:30; Other:20; IV Piggyback:100] Out: 275 [Drains:275] No intake/output data recorded. Lab Results Component Value Date WBC 7.3 03/18/2019 HGB 9.0 (L) 03/18/2019 HCT 28.6 (L) 03/18/2019 MCV 109.2 (H) 03/18/2019 LABPLAT 323 03/18/2019 Lab Results Component Value Date GLUCOSE 97 03/18/2019 CALCIUM 8.1 (L) 03/18/2019 SODIUM 137 03/18/2019 POTASSIUM 3.2 (L) 03/18/2019 CO2 27 03/18/2019 CHLORIDE 104 03/18/2019 BUNSER 3 (L) 03/18/2019 CREATININE 0.43 (L) 03/18/2019 Physical Exam: General: NAD, resting comfortably in bed watching TV HEENT: +scleral icterus, MMM Neck: Supple, no LAD or JVD. CV: RRR, 2/6 systolic murmur heard best at RUSB Lungs: CTAB, no crackles or wheezes. Abdomen: Soft, improving distension, non-tender to palpation, +bowel sounds, no rebound tenderness or guarding Extremities: No edema, WWP. MSK: GODDARD Skin: No rashes, + jaundice- improving Neuro: A+Ox4, no focal deficits. Psych: Pleasant and cooperative. Lab/Radiology/Diagnostic Review: Recent Results (from the past 24 hour(s)) CBC with auto differential Collection Time: 03/18/19 8:35 PM Result Value Ref Range WBC 7.3 3.8 - 9.9 K/cumm Hgb 9.0 (L) 11.9 - 15.5 g/dL Hct 28.6 (L) 35.6 - 45.5 % Plt 323 150 - 400 K/cumm MPV 10.3 9.1 - 12.3 fL RBC 2.62 (L) 3.90 - 5.20 M/cumm MCV 109.2 (H) 81.3 - 96.4 fL MCH 34.4 (H) 27.1 - 33.3 pg MCHC 31.5 (L) 32.3 - 35.7 g/dL RDW CV 17.8 (H) 11.1 - 14.9 % RDW SD 71.0 (H) 35.7 - 48.1 fL NRBC abs 0.00 0.00 - 0.01 K/cumm Comprehensive metabolic panel Collection Time: 03/18/19 8:35 PM Result Value Ref Range Sodium 137 135 - 145 mmol/L Potassium, pl 3.2 (L) 3.3 - 4.9 mmol/L Chloride 104 97 - 110 mmol/L CO2 27 22 - 32 mmol/L Anion gap 6 2 - 15 mmol/L BUN 3 (L) 8 - 25 mg/dL Creatinine 0.43 (L) 0.60 - 1.10 mg/dL Glucose 97 70 - 199 mg/dL Calcium 8.1 (L) 8.5 - 10.3 mg/dL Bilirubin, total 2.7 (H) 0.1 - 1.2 mg/dL Protein, pl 5.8 (L) 6.5 - 8.5 g/dL Albumin 2.1 (L) 3.5 - 5.0 g/dL Alk phos 166 (H) 40 - 130 Units/L ALT 25 7 - 45 Units/L AST 86 (H) 10 - 45 Units/L Differential, auto Collection Time: 03/18/19 8:35 PM Result Value Ref Range Neutrophil abs 3.9 1.7 - 6.5 K/cumm Imm gran abs 0.1 0.0 - 0.1 K/cumm Lymphocyte abs 2.5 0.8 - 3.3 K/cumm Monocyte abs 0.6 0.2 - 0.8 K/cumm Eosinophil abs 0.2 0.0 - 0.5 K/cumm Basophil abs 0.0 0.0 - 0.1 K/cumm Neutrophil pct 53.2 % Imm gran pct 1.5 % Lymphocyte pct 34.4 % Monocyte pct 8.3 % Eosinophil pct 2.2 % Basophil pct 0.4 % Additional tests: Imaging Results: No results found. Image Guided Drainage Peritoneal or Retroperitoneal Fluid Collection Narrative: EXAMINATION: PERCUTANEOUS DRAINAGE (STD) HISTORY/INDICATION: 38-year-old woman with necrotizing pancreatitis presents with fever and CT findings of a peripancreatic fluid collection. Request for percutaneous drainage was made. ATTENDING PRESENCE: French Leiva M.D., the attending radiologist was present from the beginning to the end of the procedure. SEDATION: Procedural sedation was administered under the attending physician's direction and continuous monitoring by a trained nurse specialist who was independent from those actually performing the procedure. Total monitored sedation time was 20 minutes. TECHNIQUE: The risks, benefits and alternatives were discussed and informed consent was obtained. Prior to beginning the procedure, Myra Protocol was used to confirm the patient's identity and planned procedure. If fluoroscopy was used, fluoroscopy time has been recorded in the electronic medical record. Maximum sterile barriers including cap, mask, hand hygiene, sterile gloves, sterile gown, large sterile drape and 2% chlorhexidine for cutaneous antisepsis were used. The skin overlying the fluid collection in the left side was sterilely prepped, draped and infiltrated with 1% buffered lidocaine. The targeted collection was then accessed with a 21 gauge needle using imaging guidance which included ultrasound and fluoroscopy. Contrast was injected to confirm needle placement. A guidewire was advanced and coiled within the collection before dilating the tract to 16 Fr. A 16-[place] loop drainage catheter was then advanced over the guidewire and secured in place with a stitch of 0-Prolene. The catheter was connected to gravity drainage. A sterile dressing was applied. A sample of the fluid was sent for culture ESTIMATED BLOOD LOSS: Minimal. CONDITION: Stable DISCHARGED TO: Recovery and then to inpatient unit. FINDINGS: Images from the procedure revealed multiple interconnected fluid collections. The fluid appeared dark brown. An approximate volume of 20 cc was drained at the time of the procedure. Impression: Successful image guided peripancreatic fluid collection drainage with a 16-[place] loop drainage catheter. PLAN: This tube should flushed with 20 mL of saline twice a day The patient should follow-up for drain evaluation in 7 days. Dictated by: Toy Quintana M.D. The radiology attending physician has personally reviewed this study, and had reviewed and/or edited this written report and agrees with it. Electronically signed by: French Leiva M.D. Assessment Plan Fever Assessment & Plan Febrile to 101.8 F overnight, no clear [...] following results of scan -Started IV Cefe/Flagyl AM 03/16-> broadened to meropenem PM 03/16 -BCx 03/16 NGTD, UA with urobilinogen and bilirubin -03/17 IR placed drain, 20cc brown drainage immediately with placement; gram stain without visible organisms, only rare PMNs, culture NGTD -03/18 drain with >250cc brown fluid, CTM. Per IR, will keep drain in place until ~<15cc output/day, can discharge with this in place and follow up as outpatient -03/19 transitioned to PO flagyl 500 q8h, levaquin 750mg q24h, will monitor for fever History of DVT (deep vein thrombosis) Assessment & Plan -On lovenox Hyperglycemia Assessment & Plan Patient reports having blood sugars in the 300s while admitted at [place]. Blood sugar here is 95 but in the setting of poor PO intake. -A1c 5.3 -Monitor sugars Pancreatitis, necrotizing Assessment & Plan -Consulted GI-Biliary. Massive hepatomegaly and current drinking habits are the first actionable target. Given new onset fevers overnight as above, ordred CTAP w/contrast per biliary recs to evaluatepancreatic fluid collections and plan possible interventions -Tylenol and Oxycodone 5 mg q6h prn for pain control, bowel regimen in place -Aggressively hydrated -Percutaneous drain in place with >200cc/24h brown fluid; no organisms on gram stain, few PMNs, culture NGTD -03/18 Advanced to full low fat diet, discontinued fluids given adequate PO intake -03/19 transition to oral flagyl 500 q8h, levaquin 750 q24h ETOH abuse Assessment & Plan Continues to drink 1/5 of Vodka per day. Previously attempted outpatient rehab but is interested ininpatient rehab. Received ativan while at [facility]. -Patient without etoh in 5 days, likely no need to etoh withdrawal scale at this time -Thiamine 100 mg, folic acid 1 mg every day -Social work consulted for rehab/ abstinence resources Access: PIV Diet: Low Fat, Low Chol DVT ppx: Lovenox Dispo: likely to home if tolerates oral ABx and doesn't re-fever Trish Caball[facility] Internal Medicine, PGY1 Cosigned by Eliz Marc MD at 03/19/2019 10:28 PM CDT Associated attestation - Eliz Marc MD - 03/19/2019 10:28 PM CDT I have seen and examined the patient on 03/19/19. I agree with the findings and plan of care as discussed with the resident/fellow.. * Héctor Norris MD - 03/18/2019 12:27 PM CDT Interventional Radiology Progress Note Interval History: VSS, afebrile. Drainage catheter placed yesterday Objective Physical Exam: GEN: Resting comfortably, no acute distress Neuro: AO x 3, no focal deficits HEENT: no scleral icterus, trachea midline CV: regular rate Pulm: normal chest rise Drains: brown tinged fluid. Vital signs for last 24 hours: Temp: [36.5 ??C (97.7 ??F)-37 ??C (98.6 ??F)] 36.7 ??C (98.1 ??F) Pulse: [78-115] 115 Resp: [14-29] 18 BP: (97-142)/(65-93) 97/71 Intake/Output: Intake/Output Summary (Last 24 hours) at 03/18/2019 1227 Last data filed at 03/18/2019 0440 Gross per 24 hour Intake 250 ml Output 240 ml Net 10 ml Lab/Radiology/Diagnostic Review: Chem/LFT Lab History Some values may be hidden. Unless noted otherwise, only the newest values recorded on each date aredisplayed. Labs-Chem/LFT Latest Ref Range 03/15/19 03/16/19 03/17/195/19 Sodium 135 - 145 mmol/L 132 (A) 134 (A) 136 138 Creatinine 0.60 - 1.10 mg/dL 0.47 (A) 0.44 (A) 0.45 (A) 0.42 (A) Bilirubin, total 0.1 - 1.2 mg/dL 3.7 (A) 3.8 (A) 4.3 (A) 3.9 (A) AST 10 - 45 Units/L 104 (A) 77 (A) 72 (A) 83 (A) ALT 7 - 45 Units/L 29 25 24 27 CrCl- Actual Body Weight (Cockcroft-Gault) 213.6 228.2 223.1 239.1 (A) Abnormal value Comments are available for some flowsheets but are not being displayed. Hematology Lab History Some values may be hidden. Unless noted otherwise, only the newest values recorded on each date aredisplayed. Labs - Hematology Latest Ref Range 03/15/19 03/16/19 03/17/19 03/18/19 WBC 3.8 - 9.9 K/cumm 8.7 8.0 8.1 8.3 Total Hb, POC 11.9 - 15.5 g/dL 9.8 (A) 9.0 (A) 9.2 (A) 10.0 (A) Hct 35.6 - 45.5 % 30.0 (A) 27.0 (A) 28.8 (A) 31.7 (A) Plt 150 - 400 K/cumm 226 221 259 328 (A) Abnormal value Assessment and Plan: 38 year old female s/p drainage catheter placement, doing well. Continue to drain to gravity, monitor output. Flush with 20cc BID. * Trish Caballero MD - 03/18/2019 6:42 AM CDT Medicine Daily Progress Note Name: Marisa Lott Today: 03/18/19 : 1980 Age: 38 y.o. Admit: 03/15/2019 Bed: [id number] Subjective Chief complaint: Abdominal pain Interval History: -Percutaneous drain placed by IR for peripancreatic fluid collection, drained 240cc brown fluid, gram stain with rare PMNs and no visible organisms.-Remained afebrile, HDS, on meropenem for necrotizing pancreatitis -Feels her abdominal pain has improved today, especially around her RUQ and epigastric region. Denies CP, SOB, N/V, D. Given miralax for mild constipation. Objective Scheduled Meds: enoxaparin 40 mg subcutaneous Daily-2100 folic acid 1 mg oral Daily meropenem 1,000 mg intravenous Q8H EDIE nicotine 1 patch transdermal Daily polyethylene glycol 17 g oral Daily sodium chloride 0.9% 0.5-20 mL intra-catheter Q8H EDIE sodium chloride 0.9% 0.5-20 mL intra-catheter Q8H EDIE sodium chloride 0.9% 20 mL intra-catheter Q12H thiamine 100 mg oral Daily Infusions: PRN Meds: ??? acetaminophen ??? ondansetron ODT OR ondansetron ??? oxyCODONE ??? sodium chloride 0.9% ??? sodium chloride 0.9% Vitals: 24hr Min/Max: Temp Min: 36.5 ??C (97.7 ??F) Max: 37 ??C (98.6 ??F) Pulse Min: 78 Max: 114 BP Min: 109/65 Max: 142/92 Resp Min: 14 Max: 29 SpO2 Min: 94 % Max: 100 % Most Recent: Vitals: 03/18/19 0400 BP: 113/77 Pulse: 78 Resp: 18 Temp: 37 ??C (98.6 ??F) SpO2: 100% I/O last 2 completed shifts: In: 250 [IV Piggyback:250] Out: 240 [Drains:240] No intake/output data recorded. Lab Results Component Value Date WBC 8.3 03/18/2019 HGB 10.0 (L) 03/18/2019 HCT 31.7 (L) 03/18/2019 MCV 107.5 (H) 03/18/2019 LABPLAT 328 03/18/2019 Lab Results Component Value Date GLUCOSE 86 03/18/2019 CALCIUM 8.4 (L) 03/18/2019 SODIUM 138 03/18/2019 POTASSIUM 3.6 03/18/2019 CO2 26 03/18/2019 CHLORIDE 103 03/18/2019 BUNSER 2 (L) 03/18/2019 CREATININE 0.42 (L) 03/18/2019 Physical Exam: General: NAD, resting comfortably in bed watching TV HEENT: +scleral icterus, MMM Neck: Supple, no LAD or JVD. CV: slightly tachycardic, 2/6 systolic murmur heard best at RUSB Lungs: CTAB, no crackles or wheezes. Abdomen: Soft, improving distension, non-tender to palpation, +bowel sounds, no rebound tenderness or guarding Extremities: No edema, WWP. MSK: GODDARD Skin: No rashes, + jaundice Neuro: A+Ox4, no focal deficits. Psych: Pleasant and cooperative. Lab/Radiology/Diagnostic Review: Recent Results (from the past 24 hour(s)) Aerobic and anaerobic culture and gram stain Abscess Abdominal Collection Time: 03/17/19 1:53 PM Result Value Ref Range Direct Specimen Exam Stain: Rare polymorphonuclear leukocytes seen. No organisms seen. Report Preliminary Report: No growth to date. CBC without differential Collection Time: 03/18/19 4:37 AM Result Value Ref Range WBC 8.3 3.8 - 9.9 K/cumm Hgb 10.0 (L) 11.9 - 15.5 g/dL Hct 31.7 (L) 35.6 - 45.5 % Plt 328 150 - 400 K/cumm MPV 10.3 9.1 - 12.3 fL RBC 2.95 (L) 3.90 - 5.20 M/cumm MCV 107.5 (H) 81.3 - 96.4 fL MCH 33.9 (H) 27.1 - 33.3 pg MCHC 31.5 (L) 32.3 - 35.7 g/dL RDW CV 17.8 (H) 11.1 - 14.9 % RDW SD 71.1 (H) 35.7 - 48.1 fL NRBC abs 0.00 0.00 - 0.01 K/cumm Comprehensive metabolic panel Collection Time: 03/18/19 4:37 AM Result Value Ref Range Sodium 138 135 - 145 mmol/L Potassium, pl 3.6 3.3 - 4.9 mmol/L Chloride 103 97 - 110 mmol/L CO2 26 22 - 32 mmol/L Anion gap 9 2 - 15 mmol/L BUN 2 (L) 8 - 25 mg/dL Creatinine 0.42 (L) 0.60 - 1.10 mg/dL Glucose 86 70 - 199 mg/dL Calcium 8.4 (L) 8.5 - 10.3 mg/dL Bilirubin, total 3.9 (H) 0.1 - 1.2 mg/dL Protein, pl 6.5 6.5 - 8.5 g/dL Albumin 2.3 (L) 3.5 - 5.0 g/dL Alk phos 183 (H) 40 - 130 Units/L ALT 27 7 - 45 Units/L AST 83 (H) 10 - 45 Units/L Additional tests: Imaging Results: No results found. Image Guided Drainage Peritoneal or Retroperitoneal Fluid Collection Narrative: EXAMINATION: PERCUTANEOUS DRAINAGE (STD) HISTORY/INDICATION: 38-year-old woman with necrotizing pancreatitis presents with fever and CT findings of a peripancreatic fluid collection. Request for percutaneous drainage was made. ATTENDING PRESENCE: French Leiva M.D., the attending radiologist was present from the beginning to the end of the procedure. SEDATION: Procedural sedation was administered under the attending physician's direction and continuous monitoring by a trained nurse specialist who was independent from those actually performing the procedure. Total monitored sedation time was 20 minutes. TECHNIQUE: The risks, benefits and alternatives were discussed and informed consent was obtained. Prior to beginning the procedure, Myra Protocol was used to confirm the patient's identity and planned procedure. If fluoroscopy was used, fluoroscopy time has been recorded in the electronic medical record. Maximum sterile barriers including cap, mask, hand hygiene, sterile gloves, sterile gown, large sterile drape and 2% chlorhexidine for cutaneous antisepsis were used. The skin overlying the fluid collection in the left side was sterilely prepped, draped and infiltrated with 1% buffered lidocaine. The targeted collection was then accessed with a 21 gauge needle using imaging guidance which included ultrasound and fluoroscopy. Contrast was injected to confirm needle placement. A guidewire was advanced and coiled within the collection before dilating the tract to 16 Fr. A 16-[place] loop drainage catheter was then advanced over the guidewire and secured in place with a stitch of 0-Prolene. The catheter was connected to gravity drainage. A sterile dressing was applied. A sample of the fluid was sent for culture ESTIMATED BLOOD LOSS: Minimal. CONDITION: Stable DISCHARGED TO: Recovery and then to inpatient unit. FINDINGS: Images from the procedure revealed multiple interconnected fluid collections. The fluid appeared dark brown. An approximate volume of 20 cc was drained at the time of the procedure. Impression: Successful image guided peripancreatic fluid collection drainage with a 16-[place] loop drainage catheter. PLAN: This tube should flushed with 20 mL of saline twice a day The patient should follow-up for drain evaluation in 7 days. Dictated by: Toy Quintana M.D. The radiology attending physician has personally reviewed this study, and had reviewed and/or edited this written report and agrees with it. Electronically signed by: French Leiva M.D. Assessment Plan Fever Assessment & Plan Febrile to 101.8 F overnight, no clear [...] following results of scan -Started IV Cefe/Flagyl AM 03/16-> broadened to meropenem PM 03/16 -BCx 03/16 NGTD, UA with urobilinogen and bilirubin -03/17 IR placed drain, 20cc brown drainage immediately with placement; gram stain without visible organisms, only rare PMNs, culture pending -03/18 drain with >250cc brown fluid, CTM. Per IR, will keep drain in place until ~<15cc output/day, can discharge with this in place and follow up as outpatient -Remains afebrile, pending prelim culture from peripancreatic fluid, could transition to PO antibiotics on 03/19 and possible D/C 03/20 History of DVT (deep vein thrombosis) Assessment & Plan -On lovenox Hyperglycemia Assessment & Plan Patient reports having blood sugars in the 300s while admitted at [place]. Blood sugar here is 95 but in the setting of poor PO intake. -A1c 5.3 -Monitor sugars Pancreatitis, necrotizing Assessment & Plan -Consulted GI-Biliary. Massive hepatomegaly and current drinking habits are the first actionable target. Given new onset fevers overnight as above, ordred CTAP w/contrast per biliary recs to evaluatepancreatic fluid collections and plan possible interventions -Tylenol and Oxycodone 5 mg q6h prn for pain control, bowel regimen in place -Aggressively hydrated -Percutaneous drain in place with >200cc/24h brown fluid; Culture pending -03/18 Advanced to full low fat diet, discontinued fluids given adequate PO intake ETOH abuse Assessment & Plan Continues to drink 1/5 of Vodka per day. Previously attempted outpatient rehab but is interested ininpatient rehab. Received ativan while at [facility]. -Patient without etoh in 5 days, likely no need to etoh withdrawal scale at this time -Thiamine 100 mg, folic acid 1 mg every day -Social work consulted for rehab/ abstinence resources Access: PIV Diet: Low Fat, Low Chol DVT ppx: Lovenox Dispo: pending transition to oral Abx, likely 2 days to home Trish Caballero Internal Medicine, PGY1 Cosigned by Eliz Marc MD at 03/19/2019 10:05 AM CDT Associated attestation - Eliz Marc MD - 03/19/2019 10:05 AM CDT I have seen and examined the patient on 03/18/2019. I agree with the findings and plan of care as discussed with the resident/fellow.. * Jovan Fox RN - 03/17/2019 2:15 PM CDT Pt awake/alert, recent vital signs stable, 0 acute distress noted, pt transported back to in pt Rm per transport. * Neela Lechuga NP - 03/17/2019 9:00 AM CDT Gastroenterology Daily Progress Subjective Chief complaint of abdominal pain Interval History: No acute events overnight. She reports that her abdominal pain is improving. She denies fever, chills, n/v, and bloody stools. She is tolerating her current diet and reports that since her admission her n/v are almost completely resolved. Since December she has has n/v almost daily. Objective Physical Exam: General appearance: cooperative and no distress Eyes: conjunctivae/corneas clear. PERRL Lungs: clear to auscultation bilaterally Heart: regular rate and rhythm, S1, S2 normal, no murmur, click, rub or gallop Abdomen: soft, distended, TTP R and L flanks, normal bowel sounds, no guarding, no HSM Skin: Skin color, texture, turgor normal. No rashes or lesions Neurologic: Alert and oriented x4, non-focal Lab/Radiology/Diagnostic Review: Laboratory review: Lab results in the last 24 hours: Recent Results (from the past 24 hour(s)) Urinalysis reflex to microscopic and culture Urine Collection Time: 03/16/19 8:23 AM Result Value Ref Range Color, ur Anneliese Yellow Clarity, ur Cloudy (A) Clear Specific gravity, ur 1.012 1.010 - 1.025 pH, urine 6 Protein, ur ql Negative Negative Glucose, ur ql Negative Negative Ketones, ur Trace Negative Bilirubin, ur 1+ (A) Negative Blood, ur Negative Negative Urobilinogen, ur 4.0 (A) <2.0 mg/dL Nitrite, ur Negative Negative Leukocyte esterase, ur Negative Negative Vitals: 24hr Min/Max: Temp Min: 36.7 ??C (98.1 ??F) Max: 38 ??C (100.4 ??F) Pulse Min: 95 Max: 103 BP Min: 110/71 Max: 139/88 Resp Min: 18 Max: 20 SpO2 Min: 98 % Max: 100 % Most Recent : Vitals: 03/17/19 0620 BP: 123/72 Pulse: 103 Resp: 18 Temp: 36.7 ??C (98.1 ??F) SpO2: 99% No intake/output data recorded. No intake/output data recorded. Assessment/Plan Active Problems: ETOH abuse Pancreatitis, necrotizing Hyperglycemia History of DVT (deep vein thrombosis) Fever 38 y.o.??female??with a history of necrotizing pancreatitis with a recent admission in December 2018, etoh abuse, hypertension, DVT, and necrotizing pancreatitis who presented to [facility] on 03/09 for nausea, vomiting, and abdominal pain. Plan #Necrotizing pancreatitis: Fevers could be caused by alcoholic pancreatitis or severe pancreatitis. - ADAT to low fat diet. - Consider Nutrition consult for education on low fat diet. Start calorie count. - If she is not tolerating adequate PO nutrition will consider [place] placement for tube feeds. Consider nutritional supplements if needed, use supplements recommended by Nutrition with low fat content. - Discussed alcohol and smoking cessation. The Biliary service will continue to follow peripherally. If additional questions or concerns, the Biliary service can be contacted via the central GI phone tree at [phone], option 3. From 5pm to 7:30am Wednesday through Wednesday, and from Wednesday 5pm to Wednesday 7:30am, the [employer]ator [employer] GI fellow covering the Biliary service can be reached at [phone]. * Trish Caballero MD - 03/17/2019 6:56 AM CDT Medicine Daily Progress Note Name: Marisa Lott Today: 03/17/19 : 1980 Age: 38 y.o. Admit: 03/15/2019 Bed: [id number] Subjective Chief complaint: Abdominal pain Interval History: -Broadened to meropenem on 03/16 afternoon due to temp to 100.4 while on cefe/flagyl, consulted IR regarding possible drainage of peripancreatic fluid collection (CT with interval increase in fluid collection size) -No fevers overnight, feels well this morning. Denies significant abdominal pain, nausea, vomiting.Had been tolerating full liquid diet. Objective Scheduled Meds: enoxaparin 40 mg subcutaneous Daily-2100 folic acid 1 mg oral Daily meropenem 1,000 mg intravenous Q8H [facility] nicotine 1 patch transdermal Daily sodium chloride 0.9% 0.5-20 mL intra-catheter Q8H [facility] thiamine 100 mg oral Daily Infusions: sodium chloride 0.9% 100 mL/hr Last Rate: 100 mL/hr (03/17/19 2922) PRN Meds: ??? acetaminophen ??? ondansetron ODT OR ondansetron ??? oxyCODONE ??? sodium chloride 0.9% Vitals: 24hr Min/Max: Temp Min: 36.7 ??C (98.1 ??F) Max: 38 ??C (100.4 ??F) Pulse Min: 95 Max: 103 BP Min: 110/71 Max: 139/88 Resp Min: 18 Max: 20 SpO2 Min: 98 % Max: 100 % Most Recent: Vitals: 03/17/19 0620 BP: 123/72 Pulse: 103 Resp: 18 Temp: 36.7 ??C (98.1 ??F) SpO2: 99% No intake/output data recorded. No intake/output data recorded. Lab Results Component Value Date WBC 8.1 03/17/2019 HGB 9.2 (L) 03/17/2019 HCT 28.8 (L) 03/17/2019 MCV 105.1 (H) 03/17/2019 LABPLAT 259 03/17/2019 Lab Results Component Value Date GLUCOSE 94 03/17/2019 CALCIUM 8.0 (L) 03/17/2019 SODIUM 136 03/17/2019 POTASSIUM 3.5 03/17/2019 CO2 27 03/17/2019 CHLORIDE 101 03/17/2019 BUNSER 2 (L) 03/17/2019 CREATININE 0.45 (L) 03/17/2019 Physical Exam: General: NAD, resting comfortably in chair by the side of the bed HEENT: +scleral icterus, MMM Neck: Supple, no LAD or JVD. CV: slightly tachycardic, 2/6 systolic murmur heard best at RUSB Lungs: CTAB, no crackles or wheezes. Abdomen: Soft, mildly distended, diffusely tender to moderate palpation, +bowel sounds, no rebound tenderness or guarding Extremities: No edema, WWP. MSK: GODDARD Skin: No rashes, + jaundice Neuro: A+Ox4, no focal deficits. Psych: Pleasant and cooperative. Lab/Radiology/Diagnostic Review: Recent Results (from the past 24 hour(s)) CBC without differential Collection Time: 03/17/19 6:25 AM Result Value Ref Range WBC 8.1 3.8 - 9.9 K/cumm Hgb 9.2 (L) 11.9 - 15.5 g/dL Hct 28.8 (L) 35.6 - 45.5 % Plt 259 150 - 400 K/cumm MPV 10.6 9.1 - 12.3 fL RBC 2.74 (L) 3.90 - 5.20 M/cumm MCV 105.1 (H) 81.3 - 96.4 fL MCH 33.6 (H) 27.1 - 33.3 pg MCHC 31.9 (L) 32.3 - 35.7 g/dL RDW CV 18.1 (H) 11.1 - 14.9 % RDW SD 69.8 (H) 35.7 - 48.1 fL NRBC abs 0.00 0.00 - 0.01 K/cumm Comprehensive metabolic panel Collection Time: 03/17/19 6:25 AM Result Value Ref Range Sodium 136 135 - 145 mmol/L Potassium, pl 3.5 3.3 - 4.9 mmol/L Chloride 101 97 - 110 mmol/L CO2 27 22 - 32 mmol/L Anion gap 8 2 - 15 mmol/L BUN 2 (L) 8 - 25 mg/dL Creatinine 0.45 (L) 0.60 - 1.10 mg/dL Glucose 94 70 - 199 mg/dL Calcium 8.0 (L) 8.5 - 10.3 mg/dL Bilirubin, total 4.3 (H) 0.1 - 1.2 mg/dL Protein, pl 6.0 (L) 6.5 - 8.5 g/dL Albumin 2.3 (L) 3.5 - 5.0 g/dL Alk phos 167 (H) 40 - 130 Units/L ALT 24 7 - 45 Units/L AST 72 (H) 10 - 45 Units/L Additional tests: Imaging Results: No results found. CT Abdomen Pelvis W Contrast Narrative: EXAMINATION: CT abdomen and pelvis with intravenous contrast. HISTORY: 38-year-old woman with ascites and pancreatitis in multiple fluid collections with concern for superinfection. TECHNIQUE: Computed tomographic images of the abdomen and pelvis were obtained after administration of 100 mL of Optiray 350 intravenous contrast per standard protocol. COMPARISON:comparison is made with prior examination from 03/09/2019 and MRI dated 03/14/2019. FINDINGS: Liver is enlarged and demonstrates diffuse marked steatosis with associated multiple linear and nodular areas of high attenuation in hepatic segments 2, 7 and 8 better evaluated by MRI. There is also mild smooth thickening of the common bile duct. There is extensive phlegmonous peripancreatic collection which has increased in size compared to prior CT most consistent with peripancreatic necrotic collections. High density material within this collection likely represents necrotic material however potential blood products can have the same appearance. These collections displace the stomach anteriorly and tracks along the left pararenal fascia on the biopsy the descending colon. This collection now measures approximately 5 x 1 x 5.6 in transaxial dimension (image 92, series 2) and 9 cm on coronal reconstruction (image 96, series 4). This previously measured 3.7 x 4.1 x 7.3 cm on prior examination. Hepatic parenchyma is obscured by PA and pancreatic collections. This collection abuts the colon. There is associated colitis likely related to this collection at the splenic flecture. Reactive retroperitoneal and gastrohepatic lymph nodes are seen. Enhancing reactive lymph node is seen adjacent to the head of the pancreas seen at table position -362. Celiac, superior mesenteric, common hepatic, splenic, gastroduodenal arteries are patent without aneurysm. Hepatic and portal veins are patent. Superior mesenteric vein is patent. There is attenuation of the portal vein at the zoya splenic confluence. 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 Small to moderate size abdominal ascites. There is anasarca. Kidneys enhance symmetrically. Small right renal cyst. No hydronephrosis or hydroureter. Spleen is normal. Adrenal glands are normal. Uterus and adnexa are normal. No evidence of bowel obstruction. Bone windows does not demonstrate suspicious lytic or blastic osseous lesions. Impression: 1. Findings consistent with necrotic pancreatitis with interval increase in size of the peripancreatic fluid collections and no evidence of vascular complications except for occlusion of the splenic vein. 2.Nodular densities in hepatic segment 7, 8 and 2 with associated common bile duct smooth wall thickening is favored to represent cholangitis and is better evaluated with prior body MRI. No hepatic abscess. 3. Focal colitis at the splenic flecture with: Abuts the necrotic pancreatic collection. 4. Small volume ascites and diffuse anasarca. 5. Severe hepatic steatosis. Dictated by: Sharon Costello M.D. The radiology attending physician has personally reviewed this study, and had reviewed and/or edited this written report and agrees with it. Electronically signed by: Cecilia Cloud M.D. XR Chest 1 View Narrative: EXAMINATION: 1 view chest radiograph Impression: Comparison made to 03/09/2019 CT. Linear atelectasis at the left base is present. There is no pneumothorax, pulmonary edema, pneumonia, or pleural effusion. Mediastinal contours normal. Dictated by: Indira Lucas M.D. The radiology attending physician has personally reviewed this study, and had reviewed and/or edited this written report and agrees with it. Electronically signed by: Héctor Mayfield M.D. Additional diagnostic/procedure review: Assessment Plan Fever Assessment & Plan Febrile to 101.8 F overnight, no clear [...] following results of scan -Started IV Cefe/Flagyl AM 03/16-> broadened to meropenem PM 03/16 -BCx 10 NGTD, UA with urobilinogen and bilirubin, -Consulted IR, follow up recs History of DVT (deep vein thrombosis) Assessment & Plan -On lovenox Hyperglycemia Assessment & Plan Patient reports having blood sugars in the 300s while admitted at [place]. Blood sugar here is 95 but in the setting of poor PO intake. -A1c 5.3 -Monitor sugars Pancreatitis, necrotizing Assessment & Plan -Consulted GI-Biliary. Massive hepatomegaly and current drinking habits are the first actionable target. Given new onset fevers overnight as above, ordred CTAP w/contrast per biliary recs to evaluatepancreatic fluid collections and plan possible interventions -Tylenol and Oxycodone 5 mg q6h prn for pain control -On NaCl 100 cc/hr -Was tolerating full liquid diet, now NPO for possible drainage with IR ETOH abuse Assessment & Plan Continues to drink 1/5 of Vodka per day. Previously attempted outpatient rehab but is interested ininpatient rehab. Received ativan while at [facility]. -Patient without etoh in 5 days, likely no need to etoh withdrawal scale at this time -Thiamine 100 mg, folic acid 1 mg every day -Social work consulted for rehab/ abstinence resources Access: PIV Diet: NPO in event for possible IR drainage DVT ppx: Lovenox Dispo: pending further management of necrotic pancreatitis, likely 1-3 days Trish Caballero Internal Medicine, PGY1 Cosigned by Eliz Marc MD at 03/17/2019 10:09 PM CDT Associated attestation - Eliz Marc MD - 03/17/2019 10:09 PM CDT I have seen and examined the patient on 03/17/19. I agree with the findings and plan of care as discussed with the resident/fellow.. * Vickie Izaguirre MD - 03/16/2019 10:34 AM CDT General Medicine Daily Progress Subjective Chief complaint of abdominal pain. Interval History: Overnight patient was febrile with Tmax 38.8 C. Blood cultures x2, UA, CXR ordered. Patient remained hemodynamically stable and denies any complaints this morning, she states her abdominal pain is at baseline and she did not feel the fever last night. She denies any dysuria, cough, shortness of breath, headache, nausea. She has been tolerating a clear liquid diet but agreeable to remain NPO this morning in case GI recommends a procedure after CT Scan is completed. No other questions or concerns this morning. Objective Vitals: 24hr Min/Max: Temp Min: 37.3 ??C (99.1 ??F) Max: 38.8 ??C (101.8 ??F) Pulse Min: 109 Max: 125 BP Min: 109/75 Max: 127/79 Resp Min: 18 Max: 18 SpO2 Min: 95 % Max: 98 % Most Recent : Vitals: 03/16/19 0946 BP: Pulse: Resp: Temp: 37.3 ??C (99.1 ??F) SpO2: I/O last 2 completed shifts: In: 500 [I.V.:500] Out: - No intake/output data recorded. Physical Exam: General: NAD, resting comfortably in bed HEENT: EOMI, PERRL, no pharyngeal erythema, normocephalic/atraumatic CV: Heart regular rate and rhythm, no friction rub, no murmur/rub/gallop Pulm: Lungs clear to auscultation bilaterally, non-labored breathing Abdomen: Soft, mildly distended, ttp of epigastric region, +bowel sounds, no rebound tenderness MSK: No joint effusions Extremities: Warm, well perfused, no edema Neuro: Alert & oriented x4, no focal deficits Psych: Cooperative, normal mood and affect Lab/Radiology/Diagnostic Review: Laboratory review: Lab results in the last 12 hours: Recent Results (from the past 12 hour(s)) CBC without differential Collection Time: 03/16/19 6:10 AM Result Value Ref Range WBC 8.0 3.8 - 9.9 K/cumm Hgb 9.0 (L) 11.9 - 15.5 g/dL Hct 27.0 (L) 35.6 - 45.5 % Plt 221 150 - 400 K/cumm MPV 10.2 9.1 - 12.3 fL RBC 2.59 (L) 3.90 - 5.20 M/cumm MCV 104.2 (H) 81.3 - 96.4 fL MCH 34.7 (H) 27.1 - 33.3 pg MCHC 33.3 32.3 - 35.7 g/dL RDW CV 18.3 (H) 11.1 - 14.9 % RDW SD 69.8 (H) 35.7 - 48.1 fL NRBC abs 0.00 0.00 - 0.01 K/cumm Comprehensive metabolic panel Collection Time: 03/16/19 6:10 AM Result Value Ref Range Sodium 134 (L) 135 - 145 mmol/L Potassium, pl 3.8 3.3 - 4.9 mmol/L Chloride 100 97 - 110 mmol/L CO2 26 22 - 32 mmol/L Anion gap 8 2 - 15 mmol/L BUN 3 (L) 8 - 25 mg/dL Creatinine 0.44 (L) 0.60 - 1.10 mg/dL Glucose 110 70 - 199 mg/dL Calcium 8.1 (L) 8.5 - 10.3 mg/dL Bilirubin, total 3.8 (H) 0.1 - 1.2 mg/dL Protein, pl 5.6 (L) 6.5 - 8.5 g/dL Albumin 2.1 (L) 3.5 - 5.0 g/dL Alk phos 173 (H) 40 - 130 Units/L ALT 25 7 - 45 Units/L AST 77 (H) 10 - 45 Units/L Urinalysis reflex to microscopic and culture Urine Collection Time: 03/16/19 8:23 AM Result Value Ref Range Color, ur Anneliese Yellow Clarity, ur Cloudy (A) Clear Specific gravity, ur 1.012 1.010 - 1.025 pH, urine 6 Protein, ur ql Negative Negative Glucose, ur ql Negative Negative Ketones, ur Trace Negative Bilirubin, ur 1+ (A) Negative Blood, ur Negative Negative Urobilinogen, ur 4.0 (A) <2.0 mg/dL Nitrite, ur Negative Negative Leukocyte esterase, ur Negative Negative Assessment/Plan Fever Assessment & Plan Febrile to 101.8 F overnight, no clear [...] IV Cefe/Flagyl this morning -f/u infectious workup Pancreatitis, necrotizing Assessment & Plan -Consulted GI-Biliary. Massive hepatomegaly and current drinking habits are the first actionable target. Given new onset fevers overnight as above, ordred CTAP w/contrast per biliary recs to evaluatepancreatic fluid collections and plan possible interventions -Tylenol and Oxycodone 5 mg q6h prn for pain control -On NaCl 100 cc/hr -Was tolerating CLD, now NPO for possible procedures History of DVT (deep vein thrombosis) Assessment & Plan -On lovenox Hyperglycemia Assessment & Plan Patient reports having blood sugars in the 300s while admitted at [place]. Blood sugar here is 95 but in the setting of poor PO intake. -A1c 5.3 -Monitor sugars ETOH abuse Assessment & Plan Continues to drink 1/5 of Vodka per day. Previously attempted outpatient rehab but is interested ininpatient rehab. Received ativan while at [facility]. -Patient without etoh in 5 days, likely no need to etoh withdrawal scale at this time -Thiamine 100 mg, folic acid 1 mg every day -Social work consulted for rehab/ abstinence resources Vickie Izaguirre MD PGY2 Internal Medicine Cosigned by Eliz Marc MD at 03/17/2019 8:36 AM CDT Associated attestation - Eliz Marc MD - 03/17/2019 8:36 AM CDT The resident/fellow saw and examined the patient, we discussed their findings, and I am in agreement with the plan based on the discussion with the resident/fellow. I did not personally examine the patient. * eNela Lechuga NP - 03/16/2019 8:50 AM CDT Gastroenterology Daily Progress Subjective Chief complaint of abdominal pain Interval History: Febrile overnight, 101.8 F. She reports that her abdominal pain is well controlled at this time with pain medications. She reports an episode of emesis after drinking too much waterearlier this morning, she says that she was vomiting daily before admission. At this time she denies n/v and bloody stools. She reports not drinking alcohol for 9 days. She reports that her organs hurt and she is concerned she may have a UTI. Objective Physical Exam: General appearance: cooperative and no distress Eyes: conjunctivae/corneas clear. PERRL Lungs: clear to auscultation bilaterally Heart: regular rate and rhythm, S1, S2 normal, no murmur, click, rub or gallop Abdomen: soft, distended, diffuse TTP, normal bowel sounds, no guarding, no HSM Skin: Skin color, texture, turgor normal. No rashes or lesions Neurologic: Alert and oriented x4, non-focal Lab/Radiology/Diagnostic Review: Laboratory review: Lab results in the last 24 hours: Recent Results (from the past 24 hour(s)) CBC without differential Collection Time: 03/16/19 6:10 AM Result Value Ref Range WBC 8.0 3.8 - 9.9 K/cumm Hgb 9.0 (L) 11.9 - 15.5 g/dL Hct 27.0 (L) 35.6 - 45.5 % Plt 221 150 - 400 K/cumm MPV 10.2 9.1 - 12.3 fL RBC 2.59 (L) 3.90 - 5.20 M/cumm MCV 104.2 (H) 81.3 - 96.4 fL MCH 34.7 (H) 27.1 - 33.3 pg MCHC 33.3 32.3 - 35.7 g/dL RDW CV 18.3 (H) 11.1 - 14.9 % RDW SD 69.8 (H) 35.7 - 48.1 fL NRBC abs 0.00 0.00 - 0.01 K/cumm Vitals: 24hr Min/Max: Temp Min: 37 ??C (98.6 ??F) Max: 38.8 ??C (101.8 ??F) Pulse Min: 96 Max: 125 BP Min: 109/75 Max: 131/85 Resp Min: 18 Max: 20 SpO2 Min: 95 % Max: 99 % Most Recent : Vitals: 03/16/19 0602 BP: 127/79 Pulse: 109 Resp: 18 Temp: (!) 38.8 ??C (101.8 ??F) SpO2: 98% I/O last 2 completed shifts: In: 500 [I.V.:500] Out: - No intake/output data recorded. Assessment/Plan Active Problems: ETOH abuse Pancreatitis, necrotizing Hyperglycemia History of DVT (deep vein thrombosis) 38 y.o.??female??with a history of necrotizing pancreatitis with a recent admission in December 2018, ??etoh abuse, hypertension, DVT, and necrotizing pancreatitis who presented to [facility] on 03/09 for nausea, vomiting, and abdominal pain. Plan #Necrotizing pancreatitis: Fevers could be caused by alcoholic pancreatitis, or infected fluid collection. - Obtain pancreas protocol CT to evaluate WON. Will determine if endoscopic drainage is needed after imaging completed. - Keep NPO - Continue conservative management - Discussed alcohol and smoking cessation. The Biliary service will continue to follow. If additional questions or concerns, the Biliary service can be contacted via the central GI phone tree at [phone], option 3. From 5pm to 7:30am Wednesday through Wednesday, and from Wednesday 5pm to Wednesday 7:30am, the demonstrator [employer] GI fellow covering the Biliary service can be reached at [phone]. * Tanisha, Ora Pardo RN - 03/15/2019 9:02 AM CDT 03/15/19 0901 Patient Information Primary Caregiver Self Support System Spouse/Significant Other;Parent;Family members Support system contact info (name, phone, availablity) Father - Babar Lott ([phone]) Legal Information Advance Directive Patient does not have advance directive;Patient refused information Prior Level of Functioning Durable Medical Equipment None Living Arrangement House Skin Integrity Intact Behavior Oriented Income Information Income Source Unemployed Income/Expense Information Expenses exceed income Potential Discharge Needs Discharge Potential The patient plans to return home with no anticipated home needs. Anticipated discharge level of care Return Home Initial Interview Patient 's demographics verified via facesheet. Time of Interview: 734 Admission Source: Transfer from [facility] Impression: 38 y.o. female with a history of necrotizing pancreatitis with a recent admission in December 2018, etoh abuse, hypertension, and DVT who presented to [facility] on 03/09 for nausea, vomiting, and abdominal pain. Plan Includes: Patient plans to discharge home when medically stable. Transportation at discharge will be provided by the patient's family. Assistance at discharge will be provided by the patient's family. No home health needs anticipated at this time. If home health is indicated at the time of discharge, the patient will be provided with a list of home health options. Awaiting recommendations. Specific d/c needs not yet clear, sample case porter will continue to follow and assist as needed. Primary Source of Transportation: Car via family Health Insurance Coverage: [employer] Prescription Coverage: yes Pharmacy: [facility] in [place], [place] Primary Care Provider: Dr. 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 Patient???s Identified Problem/Goal Problem: Ensure acute medical needs are met and that patient has a safe discharge plan. Goal: Secure a discharge plan that patient/family are agreeable with and ensure patient has continuum of care. Case management will follow for discharge planning and send referrals as needed. Goals include: To assure continuity of care, To maximize coping skills, To assure patient is in a safe environment and To assure access to community resources. Plan includes: 1. Collaboration with patient, MD, direct care nurse, Anesthesiology Faculty, Nurse Coordinator and other members of the health care team to assure needed interventions completed. 2. Return patient to optimal level of self-care post discharge. 3. Project Specialist will follow for Discharge Planning - interventions as needed 4 Anticipated level of care at discharge 5. Planned Discharge Disposition Based on a comprehensive family assessment, assistance with instrumental activities of daily livingafter discharge will be provided by the patient's father. Through the course of our work I determined that the patient's father possesses the skill and ability to provide and monitor the care of the patient when he or she returns home. The patient's father has the capacity to provide/monitor/arrange for the care of the patient. Finally, we determined that the patient's father has the knowledge of available resources and that combining them with their existing resources will suffice to sustain and care for the patient when he or she returns home. The treatment team is aware of this information. All are in agreement with the aftercare plan. Ora Garay RN, Project Specialist [phone] For emergency needs from 4:31p.m. - 7:59a.m., please call the crew foreman [phone]. For weekend/holiday needs from 8:00a.m. - 4:30p.m., please call the Weekend Project Specialist . documented in this encounter H&P Notes * Destinee Betancur MD PhD - 03/15/2019 12:55 AM CDT History and Physical Division of Medical Education CC: Transfer from [facility] for worsening necroitizing pancreatitis w/ continued pain and nausea Subjective The patient is a 38 y.o. female with a history of necrotizing pancreatitis with a recent admission in December 2018, etoh abuse, hypertension, and DVT who presented to [facility] on 03/09 for nausea, vomiting, and abdominal pain. Since her discharge in December she has continued to feel lethargic andhave a poor appetite. She reports that she was unable to hold food down and had nonbloody nonbilious vomiting. She described as 9/10 pain across across her abdomen which improved somewhat with pain medication and with eating but progressively worsened. She also described vision loss and feeling as though she could not get out of bed. She reports a weight loss of about 40 lb since January. She has e xperienced both diarrhea and constipation believe it is possible she has irritable bowel syndrome. She denies fevers, chills, headache, chest pain, dysuria, hematuria. At [facility] an MRI showed necrotizing pancreatitis with numerous wall off areas of necrosis which had worsened since her admission on the as well as imaging evidence of hepatitis and necrosis in her right and left hepatic lobes. She received IV fluids, was treated with folic acid and thiamine for her alcohol use, Zofran for nausea, Ketoralac and Morphine for pain control, Ativan foralcohol withdrawal, and insulin for elevated blood sugars. She was afebrile throughout her admission at [facility] but she occasionally was tachycardic to the low 100s. Her laboratory results were significant for lipase of 754, AST/ALT of 95/31, sodium of 127, potassium of 3.2, and a glucose of 324. Records indicate that during previous hospitalizations her lipase reached 24,000 in her transaminases were in the 600s. Her urine drug screen was positive for barbiturates and marijuana. She was able to tolerate a clear liquid diet. Regarding her alcohol use she reports stopping drinking during her admission earlier this year. However she is to resume drinking roughly 1/5 of vodka every day in order to cope with withdrawal symptoms she was receiving Ativan at [facility]. She states that she has had hallucinations and tremors due to withdrawal before. Currently, her 3 children live with her relatives because she is unable to care for them due to her alcohol use. She has been drinking this heavily for roughly 3.5 years. She reports previously attending outpatient rehab but is was unsuccessful and so she is now interested in inpatient rehab. Past Medical History: Diagnosis Date ??? DVT (deep venous thrombosis) (CMS/HCC) ??? ETOH abuse ??? Hypertension Past Surgical History: Procedure Laterality Date ??? SECTION No medications prior to admission. No Known Allergies Social History Tobacco Use ??? Smoking status: Current Every Day Smoker Packs/day: 0.50 Substance Use Topics ??? Alcohol use: Yes Comment: a fifth of vodka each day Family History Problem Relation Age of Onset ??? Congenital heart disease Mother ??? Diabetes Mother ??? Hypertension Mother ??? Blood Clot Father Review of Systems All other systems were reviewed and negative except as per HPI. Objective Vitals: 24hr Min/Max: Temp Min: 37 ??C (98.6 ??F) Max: 37 ??C (98.6 ??F) Pulse Min: 91 Max: 91 BP Min: 103/58 Max: 103/58 Resp Min: 18 Max: 18 SpO2 Min: 96 % Max: 96 % Most Recent Vitals: Vitals: 03/15/19 0015 BP: 103/58 Pulse: 91 Resp: 18 Temp: 37 ??C (98.6 ??F) SpO2: 96% No intake or output data in the 24 hours ending 03/15/19 0358 Physical Exam: Physical Exam Constitutional: She is oriented to person, place, and time and well-developed, well-nourished, and in no distress. No distress. HENT: Head: Normocephalic and atraumatic. Poor dentition Eyes: Pupils are equal, round, and reactive to light. Cardiovascular: Normal rate, regular rhythm and normal heart sounds. Exam reveals no gallop and no friction rub. No murmur heard. Pulmonary/Chest: Effort normal and breath sounds normal. No respiratory distress. She has no wheezes. She has no rales. Abdominal: Soft. There is tenderness (primarily in RUQ). Neurological: She is alert and oriented to person, place, and time. Skin: Skin is warm and dry. She is not diaphoretic. Lab/Radiology/Diagnostic Review: Recent Results (from the past 24 hour(s)) Comprehensive metabolic panel Collection Time: 03/15/19 1:47 AM Result Value Ref Range Sodium 132 (L) 135 - 145 mmol/L Potassium, pl 4.6 3.3 - 4.9 mmol/L Chloride 97 97 - 110 mmol/L CO2 23 22 - 32 mmol/L Anion gap 12 2 - 15 mmol/L BUN 6 (L) 8 - 25 mg/dL Creatinine 0.47 (L) 0.60 - 1.10 mg/dL Glucose 95 70 - 199 mg/dL Calcium 8.2 (L) 8.5 - 10.3 mg/dL Bilirubin, total 3.7 (H) 0.1 - 1.2 mg/dL Protein, pl 5.9 (L) 6.5 - 8.5 g/dL Albumin 2.3 (L) 3.5 - 5.0 g/dL Alk phos 186 (H) 40 - 130 Units/L ALT 29 7 - 45 Units/L AST 104 (H) 10 - 45 Units/L Lipase Collection Time: 03/15/19 1:47 AM Result Value Ref Range Lipase 227 (H) 10 - 99 Units/L CBC without differential Collection Time: 03/15/19 1:47 AM Result Value Ref Range WBC 8.7 3.8 - 9.9 K/cumm Hgb 9.8 (L) 11.9 - 15.5 g/dL Hct 30.0 (L) 35.6 - 45.5 % Plt 226 150 - 400 K/cumm MPV 9.9 9.1 - 12.3 fL RBC 2.88 (L) 3.90 - 5.20 M/cumm MCV 104.2 (H) 81.3 - 96.4 fL MCH 34.0 (H) 27.1 - 33.3 pg MCHC 32.7 32.3 - 35.7 g/dL RDW CV 18.6 (H) 11.1 - 14.9 % RDW SD 71.4 (H) 35.7 - 48.1 fL NRBC abs 0.02 (H) 0.00 - 0.01 K/cumm Imaging Results: Imaging from OSH uploaded to [facility]. Assessment/Plan Marisa Lott is a 38 y.o. female with a history of necrotizing pancreatitis with a recent admission in December 2018, etoh abuse, hypertension, DVT, and necrotizing pancreatitis who presented to [facility] on 03/09 for nausea, vomiting, and abdominal pain. Pancreatitis, necrotizing Assessment & Plan -Consult placed to biliary -Tylenol and Oxycodone 5 mg q6h prn for pain control -Started on NaCl 100 cc/hr -NPO History of DVT (deep vein thrombosis) Assessment & Plan -On lovenox Hyperglycemia Assessment & Plan Patient reports having blood sugars in the 300s while admitted at [facility]. Blood sugar here is 95 but in the setting of poor PO intake. -F/u A1C -Consider adding LDSSI when patient is no longer NPO ETOH abuse Assessment & Plan Continues to drink 1/5 of Vodka per day. Previously attempted outpatient rehab but is interested ininpatient rehab. Received ativan while at [facility]. -Patient without etoh in 5 days, likely no need to etoh withdrawal scale at this time -Thiamine 100 mg, folic acid 1 mg every day -Interested in rehab, should receive referral to AA Destinee Betancur MD PhD, PGY-5 [phone] Cosigned by Eliz Marc MD at 03/16/2019 8:33 AM CDT Associated attestation - Eliz Marc MD - 03/16/2019 8:33 AM CDT I have seen and examined the patient on 03/15/2019. I agree with the findings and plan of care as discussed with the resident/fellow.. documented in this encounter Consult Notes * Pro Bowen MD - 03/20/2019 1:01 PM CDTAssociated Order(s): CONSULT TO GENERAL INFECTIOUS DISEASE Infectious Disease Initial Consult Note Infectious Disease Team: General 2 Contact Information: Please see EPIC Treatment Team listing for up-to-date contact information. Requesting Physician: Maico Brra, * Reason for Consult: Diagnostic and treatment recommendations, as well as assistance with follow up care. Subjective Chief Complaint: abdominal pain HPI: Ms. Lott is a 38 y.o. female with with history necrotizing pancreatitis in December secondary to alcohol abuse who presented to [facility] on March 15 as a transfer for pancreatitis. She states that following her initial bout of pancreatitis in December she never fully recovered. She had persistent nausea and vomiting preventing her from taking in oral intake. She also continued to drink. She reportedly got weaker and began to have numbness in her lower extremities. She had persistent bilious vomiting with dark black stool. She eventually was taken by EMS to [facility] on 03/09. She at that time was having severe 10/10 pain across her abdomen. While there she had imaging demonstrating hepatitis and pancreatitic necrosis. Due to worsening course she was transferred to [facility] on 03/15. Shortly after admission she became febrile with T-max 38.8 on 03/16. She was started on cefepime and Flagyl which was eventually transitioned to meropenem (03/16 until 03/18). MRI and CT imaging were performed with finding of necrotic pancreatitis. On 03/17 she had placement of IRguided drain in to her peripancreatic fluid collection with return of brown material. This fluid was cultured but did not grow any bacteria. On 03/19 her antibiotics were transitioned to levofloxacinand metronidazole. The patient reports that her abdominal pain is dramatically improved since placement of the drain. She is tolerating oral intake. She states that her bowel movements are becoming more regular and formed. She denies any nausea or vomiting. She denies any shortness of breath. She denies rash or skin changes. The drain remains in place with approximately 200 cc of dark green to black drainage daily.She has been afebrile since 03/16. White blood cell count is normal. Social History: Lives in [place]. Lost custody of children due to drinking. Currently not working.Drinks 1/5 of alcohol daily. No drug use. Past Medical History: Diagnosis Date ??? DVT (deep venous thrombosis) (CMS/HCC) ??? ETOH abuse ??? Hypertension Past Surgical History: Procedure Laterality Date ??? SECTION ??? IMAGE GUIDED DRAINAGE PERITONEAL OR RETROPERITONEAL FLUID COLLECTION N/A 03/17/2019 HOME MEDICATIONS : Not on File Current Facility-Administered Medications Ordered in [facility] Medication Dose Route Frequency Provider Last Rate Last Dose ??? acetaminophen (TYLENOL) tablet 650 mg 650 mg oral QID PRN Trish Caballero MD 650 mg at1 1616 ??? enoxaparin (LOVENOX) syringe 40 mg 40 mg subcutaneous Daily-2100 Destinee Betancur, [facility] 40 mg at 03/19/192051 ??? folic acid (FOLVITE) tablet 1 mg 1 mg oral Daily Destinee Bteancur MD PhD 1 mg at 03/20/19921 ??? levoFLOXacin (LEVAQUIN) tablet 750 mg 750 mg oral Daily - 0600 Trish Caballero MD 750 mg at 03/20/19 0449 ??? metroNIDAZOLE (FLAGYL) tablet 500 mg 500 mg oral Q8H Trish Caballero MD 500 mg at 03/20/19 1616 ??? nicotine (NICODERM CQ) 7 mg patch 24 hour 1 patch 1 patch transdermal Daily Trish Cablalero MD 1 patch at 03/17/19 0832 ??? ondansetron ODT (ZOFRAN-ODT) disintegrating tablet 4 mg 4 mg oral Q6H PRN Destinee Betancur MD PhD Or ??? ondansetron (ZOFRAN) injection 4 mg 4 mg intravenous Q6H PRN Destinee Betancur MD PhD4 mg at 03/16/19 0718 ??? oxyCODONE (ROXICODONE) tablet 5 mg 5 mg oral Q8H Trish Caballero MD 5 mg at 03/20/19 1258 ??? polyethylene glycol (MIRALAX) packet 17 g 17 g oral Daily Trish Caballero MD 17 g at 03/20/19 0922 ??? sodium chloride 0.9% flush 0.5-20 mL 0.5-20 mL intra-catheter Q8H [facility] Destinee Betancur MD PhD 10 mL at 03/20/19 0451 ??? sodium chloride 0.9% flush 0.5-20 mL 0.5-20 mL intra-catheter PRN Destinee Betancur MD PhD ??? sodium chloride 0.9% flush 0.5-20 mL 0.5-20 mL intra-catheter Q8H [facility] Josafat Barrios MD 10 mL at1 0450 ??? sodium chloride 0.9% flush 0.5-20 mL 0.5-20 mL intra-catheter PRN Josafat Barrios MD ??? sodium chloride 0.9% flush 20 mL 20 mL intra-catheter Q12H Trish Mike Caballero MD 20 mL at1 1619 ??? thiamine (VITAMIN B-1) tablet 100 mg 100 mg oral Daily Destinee Betancur MD PhD 100 mg at 03/20/19 0922 No current Epic-ordered outpatient medications on file. Anti-infectives (From admission, onward) Start Dose/Rate Route Frequency Ordered Stop 03/19/19944 metroNIDAZOLE (FLAGYL) tablet 500 mg 500 mg oral Every 8 hours 03/19/1990103/19/19944 levoFLOXacin (LEVAQUIN) tablet 750 mg 750 mg oral Daily (early AM) 03/19/19901 Active Lines/Ports/Devices: Peripheral IV 03/16/19 22 G Left Forearm (Active) Number of days: 4 Open Drain 1 Left Abdomen 16 Fr. (Active) Number of days: 3 Patient Allergies: No Known Allergies Social History Social History Narrative ??? Not on file reports that she has been smoking. She has been smoking about 0.50 packs per day. She does not haveany smokeless tobacco history on file. She reports that she drinks alcohol. Family history reviewed and non-contributory Family History Problem Relation Age of Onset ??? Congenital heart disease Mother ??? Diabetes Mother ??? Hypertension Mother ??? Blood Clot Father Review of Systems: Review of Systems All other systems reviewed and are negative. Objective Vitals: 24hr Min/Max: Temp Min: 36.4 ??C (97.5 ??F) Max: 36.8 ??C (98.2 ??F) Pulse Min: 70 Max: 80 BP Min: 126/83 Max: 148/88 Resp Min: 18 Max: 18 SpO2 Min: 98 % Max: 100 % Most Recent : Vitals: 03/20/19924 BP: 126/83 Pulse: 80 Resp: 18 Temp: 36.8 ??C (98.2 ??F) SpO2: 98% I/O last 2 completed shifts: In: 40 [I.V.:20; Other:20] Out: 125 [Drains:125] Physical Exam: Physical Exam Constitutional: She is oriented to person, place, and time. She appears well- developed and well-nourished. HENT: Mouth/Throat: Oropharynx is clear and moist. Poor overall dentition Eyes: Conjunctivae are normal. No scleral icterus. Cardiovascular: Normal rate, regular rhythm, normal heart sounds and intact distal pulses. No murmur heard. Pulmonary/Chest: Effort normal and breath sounds normal. Abdominal: Moderately distended abdomen. Tender to palpation on the left side. The IR drain is in place in theleft lateral quadrant with normal surrounding skin. A drainage bag has approximately 100 cc of green to black watery drainage. Lymphadenopathy: She has no cervical adenopathy. Neurological: She is alert and oriented to person, place, and time. No cranial nerve deficit or sensory deficit. She exhibits normal muscle tone. Skin: Skin is warm and dry. No rash noted. Psychiatric: She has a normal mood and affect. Her behavior is normal. Lab/Radiology/Diagnostic Review: I reviewed the laboratory result(s). Recent Labs: Microbiology: Lab Results Component Value Date MICROBIOLOGY Final Report: No growth 03/17/2019 MICROBIOLOGY Preliminary Report: No growth to date. 03/16/2019 MICROBIOLOGY Preliminary Report: No growth to date. 03/16/2019 CBC: Recent Labs Lab Units 03/19/192056 WBC K/cumm 6.6 HEMOGLOBIN g/dL 9.1* HEMATOCRIT % 29.0* PLATELETS K/cumm 343 NEUTROS PCT % 59.7 LYMPHS PCT % 29.7 MONOS PCT % 7.6 EOS PCT % 1.4 CMP: Recent Labs Lab Units 03/19/197 SODIUM mmol/L 138 POTASSIUM PLASMA mmol/L 4.5 CHLORIDE mmol/L 105 CO2 mmol/L 26 ANIONGAP mmol/L 7 GLUCOSE mg/dL 122 BUN SERUM mg/dL 3* CREATININE mg/dL 0.47* CALCIUM mg/dL 8.4* ALBUMIN g/dL 2.2* ALK PHOS Units/L 170* ALT Units/L 34 AST Units/L 110* BILIRUBIN TOTAL mg/dL 2.3* Last UA: Recent Labs Lab Units 03/16/19 0823 COLOR U Anneliese CLARITY U Cloudy* SPEC GRAV U 1.012 PH, URINE 6 PROTEIN UR QL Negative GLUCOSE URQL Negative KETONES UR Trace BLOOD UR Negative NITRITE UR Negative LEUKOCYTE ESTERASE UR Negative Current CrCl: Estimated Creatinine Clearance: 136.9 mL/min (A) (by C-G formula based on SCr of 0.47mg/dL (L)). Cr. Trend: Recent Labs Lab Units 03/19/19205603/18/19203403/18/19 0437 CREATININE mg/dL 0.47* 0.43* 0.42* Radiology: Radiology results were reviewed. Last CT Result: Results for orders placed during the hospital encounter of 03/15/19 CT Abdomen Pelvis W Contrast Narrative EXAMINATION: CT abdomen and pelvis with intravenous contrast. HISTORY: 38-year-old woman with ascites and pancreatitis in multiple fluid collections with concern for superinfection. TECHNIQUE: Computed tomographic images of the abdomen and pelvis were obtained after administration of 100 mL of Optiray 350 intravenous contrast per standard protocol. COMPARISON:comparison is made with prior examination from 03/09/2019 and MRI dated 03/14/2019. FINDINGS: Liver is enlarged and demonstrates diffuse marked steatosis with associated multiple linear and nodular areas of high attenuation in hepatic segments 2, 7 and 8 better evaluated by MRI. There is also mild smooth thickening of the common bile duct. There is extensive phlegmonous peripancreatic collection which has increased in size compared to prior CT most consistent with peripancreatic necrotic collections. High density material within this collection likely represents necrotic material however potential blood products can have the same appearance. These collections displace the stomach anteriorly and tracks along the left pararenal fascia on the biopsy the descending colon. This collection now measures approximately 5 x 1 x 5.6 in transaxial dimension (image 92, series 2) and 9 cm on coronal reconstruction (image 96, series 4). This previously measured 3.7 x 4.1 x 7.3 cm on prior examination. Hepatic parenchyma is obscured by PA and pancreatic collections. This collection abuts the colon. There is associated colitis likely related to this collection at the splenic flecture. Reactive retroperitoneal and gastrohepatic lymph nodes are seen. Enhancing reactive lymph node is seen adjacent to the head of the pancreas seen at table position -362. Celiac, superior mesenteric, common hepatic, splenic, gastroduodenal arteries are patent without aneurysm. Hepatic and portal veins are patent. Superior mesenteric vein is patent. There is attenuation of the portal vein at the zoya splenic confluence. 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 Small to moderate size abdominal ascites. There is anasarca. Kidneys enhance symmetrically. Small right renal cyst. No hydronephrosis or hydroureter. Spleen is normal. Adrenal glands are normal. Uterus and adnexa are normal. No evidence of bowel obstruction. Bone windows does not demonstrate suspicious lytic or blastic osseous lesions. Impression 1. Findings consistent with necrotic pancreatitis with interval increase in size of the peripancreatic fluid collections and no evidence of vascular complications except for occlusion of the splenic vein. 2.Nodular densities in hepatic segment 7, 8 and 2 with associated common bile duct smooth wall thickening is favored to represent cholangitis and is better evaluated with prior body MRI. No hepatic abscess. 3. Focal colitis at the splenic flecture with: Abuts the necrotic pancreatic collection. 4. Small volume ascites and diffuse anasarca. 5. Severe hepatic steatosis. Dictated by: Sharon Costello M.D. The radiology attending physician has personally reviewed this study, and had reviewed and/or edited this written report and agrees with it. Electronically signed by: Cecilia Cloud M.D. Assessment/Plan Pancreatitis, necrotizing Assessment & Plan This is a 38-year-old female with alcoholic [...] recommend screening for HIV and Hep C ID will sign off. These recommendations were relayed to the primary team. This patient was seen and discussed with the attending, Dr. Rocha. Thank you for consulting general Infectious Diseases Team 2. ID will sign off. Please contact the Team 2 ID fellow at [phone] with any questions or concerns. After hours the ID fellow demonstrator [employer] can be reached at [phone]. Cosigned by Kurtis Rocha MD at 03/20/2019 5:59 PM CDT Associated attestation - Kurtis Rocha MD - 03/20/2019 5:59 PM CDT I have seen and examined the patient on 03/20/19. I agree with the findings and plan of care as documented in the resident's/fellow's note. * Julianna Gomes MD - 03/15/2019 12:21 PM CDTAssociated Order(s): CONSULT TO GASTROENTEROLOGY - BILIARY Gastroenterology Consult Subjective Patient is a 38 y.o. female with chief complaint of abdominal pain Reason for consult: No data found Requesting Provider: Dr. Marc HPI: 38 y.o. female with a history of necrotizing pancreatitis with a recent admission in December 2018, etoh abuse, hypertension, DVT, and necrotizing pancreatitis who presented to [facility] on 03/09 for nausea, vomiting, and abdominal pain. She presented with abdominal pain and nausea vomting in 12/2018 an found to have ETOH pancreatitis with fluid collection (WOPN), she was treated conservatively then discharged home. She continues to drink about 1/5 of vodka every day in order to cope with [facility] she presented to [facility] again with abdominal pain, N.V. She is able to keep broth and fruit down with no issues. On repeat imaging, CT showed worsening per pancreatic fluid collection. Denies fevers, chills, diarrhea, jaundice, skin rash, pale stool, dark urine, or joint pain. Denies melena or hematochezia. Past Medical History: Diagnosis Date ??? DVT (deep venous thrombosis) (CMS/HCC) ??? ETOH abuse ??? Hypertension Past Surgical History: Procedure Laterality Date ??? SECTION No medications prior to admission. No Known Allergies Social History Tobacco Use ??? Smoking status: Current Every Day Smoker Packs/day: 0.50 Substance Use Topics ??? Alcohol use: Yes Comment: a fifth of vodka each day Family History Problem Relation Age of Onset [...] Substance and Sexual Activity ??? Alcohol use: Yes Comment: a fifth of vodka each day ??? Drug use: Not on file ??? Sexual activity: Not on file Lifestyle ??? Physical activity: Days per week: Not on file Minutes per session: Not on file ??? Stress: Not on file Relationships ??? Social connections: Talks on phone: Not on file Gets together: Not on file Attends sikh service: Not on file Active member of [...] are negative Vitals: 24hr Min/Max: Temp Min: 37 ??C (98.6 ??F) Max: 37 ??C (98.6 ??F) Pulse Min: 91 Max: 96 BP Min: 103/58 Max: 131/85 Resp Min: 18 Max: 20 SpO2 Min: 96 % Max: 99 % Most Recent : Vitals: 03/15/19 0655 BP: 131/85 Pulse: 96 Resp: 20 Temp: 37 ??C (98.6 ??F) SpO2: 99% No intake/output data recorded. No intake/output data recorded. Objective Physical Exam: General: awake, alert, NAD HEENT: NCAT, no scleral icterus Neck: supple CV: RRR Pulm: CTAB Abd: S, epigastric tenderness, distended Ext: No edema Neuro: No focal deficits Skin: Warm, dry, no rashes Psych: Normal affect, pleasant Lab/Radiology/Diagnostic Review: Lab Results Component Value Date WBC 8.7 03/15/2019 HGB 9.8 (L) 03/15/2019 HCT 30.0 (L) 03/15/2019 MCV 104.2 (H) 03/15/2019 LABPLAT 226 03/15/2019 Lab Results Component Value Date GLUCOSE 95 03/15/2019 CALCIUM 8.2 (L) 03/15/2019 SODIUM 132 (L) 03/15/2019 POTASSIUM 4.6 03/15/2019 CO2 23 03/15/2019 CHLORIDE 97 03/15/2019 BUNSER 6 (L) 03/15/2019 CREATININE 0.47 (L) 03/15/2019 Lab Results Component Value Date ALT 29 03/15/2019 AST 104 (H) 03/15/2019 ALKPHOS 186 (H) 03/15/2019 BILITOT 3.7 (H) 03/15/2019 No results found for: IRON, TIBC, FERRITIN No results found for: OCCULTBLD No results found for: AMYLASE Lab Results Component Value Date LIPASE 227 (H) 03/15/2019 No results found for: HAV, HEPAIGM, HEPBIGM, HEPBCAB, HBEAG, HEPCAB No results found for: AFP Assessment /Plan 38 y.o. female with a history of necrotizing pancreatitis with a recent admission in December 2018, etoh abuse, hypertension, DVT, and necrotizing pancreatitis who presented to [facility] on 03/09 for nausea, vomiting, and abdominal pain. 1. Abdominal pain due to ETOH necrotizing pancreatitis: On reviewing the CT scan images, it showed that she has massive enlargement of her liver extending to the left side likely to alcohol intake which seems mainly driving her N.V. Her PPFC (fluid collection) causing some compression effect onthe fundus but that should not explain her N.V. Her abdominal pain likely due to AP. - No indication for endoscopic drainage at this time - Patient w as counseled to abstain from alcohol intake and smoking - Continue conservative management - Once her pain improved, would start clear liquid deut then advance as tolerated, consider low fatdiet. The Biliary service will continue to follow. If additional questions or concerns, the Biliary service can be contacted via the central GI phone tree at [phone], option 3. From 5pm to 7:30am Wednesday through Wednesday, and from Wednesday 5pm to Wednesday 7:30am, the demonstrator [employer] GI fellow covering the Biliary service can be reached at [phone]. Julianna Gomes MD Gastroenterology Fellow [facility] in [place] Cosigned by Toy Higuera MD at 03/15/2019 7:04 PM CDT Associated attestation - Toy Higuera MD - 03/15/2019 7:04 PM CDT I have seen and examined the patient on 03/15/19. I agree with the findings and plan of care as documented in the resident's/fellow's note. documented in this encounter Nursing Notes * Argenis Torrez RN - 03/21/2019 12:11 PM CDT Patient understood discharge instructions and is going home. Patient A&Ox4, peripheral IV takenout and all belongings are taken with. * Lorena Monk RN - 03/20/2019 3:01 PM CDT Assumed care from [id number] no change from previous assessment. * Conchita Cleary RN - 03/17/2019 4:00 PM CDT Report called to [id number] RN, who will assume care following transfer. documented in this encounter Miscellaneous Notes * Plan of Care - Argenis Torrez RN - 03/21/2019 11:35 AM CDT Goals: Clinical Goals for the Shift: Safety, monitor vitals igns, meds Summary: Vitals table, meds given per physician's orders. RN educated patient how to take care of left abdomen drain. * Plan of Care - Carina Cardenas RN - 03/21/2019 5:00 AM CDT Problem: Activity: Goal: Risk for activity intolerance will decrease Outcome: Progressing Problem: Lack of Knowledge: Goal: Knowledge of disease or condition will improve Outcome: Progressing Goal: Ability to state and carry out methods to decrease the pain will improve Outcome: Progressing Problem: Nutritional: Goal: Nutritional status will be supported Outcome: Progressing Problem: Fluid Volume: Goal: Maintenance of adequate hydration will improve Outcome: Progressing Problem: Health Behavior: Goal: Ability to state signs and symptoms to report to health care provider will improve Outcome: Progressing Problem: Physical Regulation: Goal: Complications related to the disease process, condition or treatment will be avoided or minimized Outcome: Progressing Goal: Ability to maintain clinical measurements within normal limits will improve Outcome: Progressing Problem: Sensory: Goal: Ability to identify factors that increase the pain will improve Outcome: Progressing Goal: Ability to notify healthcare provider of pain before it becomes unmanageable or unbearable will improve Outcome: Progressing Goal: Pain level [...] respiratory rate will improve Outcome: Progressing Problem: Sensory: Goal: General experience of comfort will improve Outcome: Progressing Problem: Skin Integrity: Goal: Skin integrity will be maintained Outcome: Progressing Problem: Health Behavior: Goal: Understanding of discharge needs will improve Outcome: Progressing Problem: Lack of Knowledge: Goal: Knowledge on safety and abstaining from self-injurious behavior will increase Outcome: Progressing Goal: Knowledge of therapies/resources will increase Outcome: Progressing Problem: Health Behavior: Goal: Ability to manage health-related needs will improve Outcome: Progressing Problem: Low Risk for Self-Injurious Behavior: Goal: Ability to remain free from injury will improve Description (Low Risk) Outcome: Progressing * Assessment & Plan Note - Pro Bowen MD - 03/20/2019 5:18 PM CDT Associated Problem(s): Pancreatitis, necrotizing This is a 38-year-old female with alcoholic [...] recommend screening for HIV and Hep C * Plan of Care - Mary Rawls RN - 03/20/2019 2:58 PM CDT Report per DCAM: Patient not stable to discharge from the hospital. Impression: ID consult, pending recs. Referrals: Referral sent to [facility] for possible home IV antibiotics. Graciela with [facility] updated with dispo plan. Per medical team, patient will discharge home with drain, bedside RN to do drain teaching and send patient home with supplies. Patient states she plans to live with her sister in law whois a nurse practitioner and has agreed to help patient with drain care. Patient agrees with plan. Support: Family Transportation: Per family F/U Appt: to be scheduled ADD: 03/21 Problem: Establish a safe discharge Goal: Implement a safe discharge home with family support with PCP follow up. Case Management will follow for planning and referrals as needed. For emergency needs from 4:31pm-7:59am, please call the crew foreman . For weekend/holiday needs from 8am-430pm, please call the Weekend Project Specialist . * Plan of Care - Argenis Torrez RN - 03/20/2019 2:05 PM CDT Goals: Clinical Goals for the Shift: Safety, monitor vital signs, meds Summary: Vitals stable. Meds given per physician's orders. * Plan of Care - Graciela Pina, SINA - 03/20/2019 1:52 PM CDT [facility] referral received , however, no current iv abx noted for benefit check . [facility] will continue to follow and monitor chart for potential home infusion needs . * Plan of Care - Julissa Enciso MSW - 03/20/2019 9:16 AM CDT Patient transferred from [id number] to [id number]. Anesthesiology Faculty notified. Will follow. * Plan of Care - Xochitl Abrams RN - 03/20/2019 5:09 AM CDT Problem: Activity: Goal: Risk for activity intolerance will decrease Outcome: Progressing Problem: Lack of Knowledge: Goal: Knowledge of disease or condition will improve Outcome: Progressing Goal: Ability to state and carry out methods to decrease the pain will improve Outcome: Progressing Problem: Nutritional: Goal: Nutritional status will be supported Outcome: Progressing Problem: Fluid Volume: Goal: Maintenance of adequate hydration will improve Outcome: Progressing Problem: Health Behavior: Goal: Ability to state signs and symptoms to report to health care provider will improve Outcome: Progressing Problem: Physical Regulation: Goal: Complications related to the disease process, condition or treatment will be avoided or minimized Outcome: Progressing Goal: Ability to maintain clinical measurements within normal limits will improve Outcome: Progressing Problem: Sensory: Goal: Ability to identify factors that increase the pain will improve Outcome: Progressing Goal: Ability to notify healthcare provider of pain before it becomes unmanageable or unbearable will improve Outcome: Progressing Goal: Pain level [...] respiratory rate will improve Outcome: Progressing Problem: Sensory: Goal: General experience of comfort will improve Outcome: Progressing Problem: Skin Integrity: Goal: Skin integrity will be maintained Outcome: Progressing Problem: Health Behavior: Goal: Understanding of discharge needs will improve Outcome: Progressing Problem: Lack of Knowledge: Goal: Knowledge on safety and abstaining from self-injurious behavior will increase Outcome: Progressing Goal: Knowledge of therapies/resources will increase Outcome: Progressing Problem: Health Behavior: Goal: Ability to manage health-related needs will improve Outcome: Progressing Problem: Low Risk for Self-Injurious Behavior: Goal: Ability to remain free from injury will improve Description (Low Risk) Outcome: Progressing Goals: Clinical Goals for the Shift: remain free from injury, monitor and treat pain, obtain labs, monitorvitals, and rest Summary: Patient remained free from injury and rested well throughout this shift. Pain monitored and treated with PRN pain medications. Patient reports relief. Labs obtained with no further treatmentrequired. Vitals monitored and remained stable. Patient currently resting comfortably in bed, denies shortness of breath and s/s of distress or discomfort. * Plan of Care - Elisha Webster RN - 03/19/2019 2:23 PM CDT Goals: Clinical Goals for the Shift: remain free from injury, monitor and treat pain, obtain labs, continue antibiotics, and rest Summary: Discussed present health concerns. Patient verbalized understanding. * Plan of Care - Xochitl Abrams RN - 03/19/2019 4:20 AM CDT Problem: Activity: Goal: Risk for activity intolerance will decrease 03/19/2019419 by Xochitl Abrams RN Outcome: Progressing 03/19/2019419 by Xochitl Abrams RN Outcome: Progressing Problem: Lack of Knowledge: Goal: Knowledge of disease or condition will improve 03/19/2019419 by Xochitl Abrams RN Outcome: Progressing 03/19/2019419 by Xochitl Abrams RN Outcome: Progressing Goal: Ability to state and carry out methods to decrease the pain will improve 03/19/2019419 by Xochitl Abrams RN Outcome: Progressing 03/19/2019419 by Xochitl Abrams RN Outcome: Progressing Problem: Nutritional: Goal: Nutritional status will be supported 03/19/2019419 by Xochitl Abrams RN Outcome: Progressing 03/19/2019419 by Xochitl Abrams RN Outcome: Progressing Problem: Fluid Volume: Goal: Maintenance of adequate hydration will improve 03/19/2019419 by Xochitl Abrams RN Outcome: Progressing 03/19/2019419 by Xochitl Abrams RN Outcome: Progressing Problem: Health Behavior: Goal: Ability to state signs and symptoms to report to health care provider will improve 03/19/2019419 by Xochitl Abrams RN Outcome: Progressing 03/19/2019419 by Xochitl Abrams RN Outcome: Progressing Problem: Physical Regulation: Goal: Complications related to the disease process, condition or treatment will be avoided or minimized 03/19/2019419 by Xochitl Abrams RN Outcome: Progressing 03/19/2019419 by Xochitl Abrams RN Outcome: Progressing Goal: Ability to maintain clinical measurements within normal limits will improve 03/19/2019419 by Xochitl Abrams RN Outcome: Progressing 03/19/2019419 by Xochitl Abrams RN Outcome: Progressing Problem: Sensory: Goal: Ability to identify factors that increase the pain will improve 03/19/2019419 by Xochitl Abrams RN Outcome: Progressing 03/19/2019419 by Xochitl Abrams RN Outcome: Progressing Goal: Ability to notify healthcare provider of pain before it becomes unmanageable or unbearable will improve 03/19/2019419 by Xochitl Abrams RN Outcome: Progressing 03/19/2019419 by Xochitl Abrams RN Outcome: Progressing Goal: Pain level will decrease 03/19/2019419 by Xochitl Abrams RN Outcome: Progressing 03/19/2019419 by Xochitl Abrams RN Outcome: Progressing Problem: Cognitive: Goal: Knowledge of disease or condition will improve 03/19/2019419 by Xochitl Abrams RN Outcome: Progressing 03/19/2019419 by Xochitl Abrams RN Outcome: Progressing Goal: Knowledge of the prescribed therapeutic regimen will improve 03/19/2019419 by Xochitl Abrams RN Outcome: Progressing 03/19/2019419 by Xochitl Abrams RN Outcome: Progressing Problem: Coping: Goal: Ability to verbalize feelings will improve 03/19/2019419 by Xochitl Abrams RN Outcome: Progressing 03/19/2019419 by Xochitl Abrams RN Outcome: Progressing Goal: Level of anxiety will decrease 03/19/2019419 by Xochitl Abrams RN Outcome: Progressing 03/19/2019419 by Xochitl Abrams RN Outcome: Progressing Problem: Fluid Volume: Goal: Will maintain adequate fluid volume 03/19/2019419 by Xochitl Abrams RN Outcome: Progressing 03/19/2019419 by Xochitl Abrams RN Outcome: Progressing Problem: Health Behavior: Goal: Ability to identify changes in lifestyle to reduce recurrence of condition will improve 03/19/2019419 by Xochtil Abrams RN Outcome: Progressing 03/19/2019419 by Xochitl Abrams RN Outcome: Progressing Problem: Nutritional: Goal: Ability to achieve adequate nutritional intake will improve 03/19/2019419 by Xochitl Abrams RN Outcome: Progressing 03/19/2019419 by Xochitl Abrams RN Outcome: Progressing Problem: Physical Regulation: Goal: Complications related to the disease process, condition or treatment will be avoided or minimized 03/19/2019419 by Xochitl Abrams RN Outcome: Progressing 03/19/2019419 by Xochitl Abrams RN Outcome: Progressing Goal: Hemodynamic stability will improve 03/19/2019419 by Xochitl Abrams RN Outcome: Progressing 03/19/2019419 by Xochitl Abrams RN Outcome: Progressing Problem: Respiratory: Goal: Ability to achieve and maintain a regular respiratory rate will improve 03/19/2019419 by Xochitl Abrams RN Outcome: Progressing 03/19/2019419 by Xochitl Abrams RN Outcome: Progressing Problem: Sensory: Goal: General experience of comfort will improve 03/19/2019419 by Xochitl Abrams RN Outcome: Progressing 03/19/2019419 by Xochitl Abrams RN Outcome: Progressing Problem: Skin Integrity: Goal: Skin integrity will be maintained 03/19/2019419 by Xochitl Abrams RN Outcome: Progressing 03/19/2019419 by Xochitl Abrams RN Outcome: Progressing Problem: Health Behavior: Goal: Understanding of discharge needs will improve 03/19/2019419 by Xochitl Abrams RN Outcome: Progressing 03/19/2019419 by Xochitl Abrams RN Outcome: Progressing Problem: Lack of Knowledge: Goal: Knowledge on safety and abstaining from self-injurious behavior will increase 03/19/2019419 by Xochitl Abrams RN Outcome: Progressing 03/19/2019419 by Xochitl Abrams RN Outcome: Progressing Goal: Knowledge of therapies/resources will increase 03/19/2019419 by Xochitl Abrams RN Outcome: Progressing 03/19/2019419 by Xochitl Abrams RN Outcome: Progressing Problem: Health Behavior: Goal: Ability to manage health-related needs will improve 03/19/2019419 by Xochitl Abrams RN Outcome: Progressing 03/19/2019419 by Xochitl Abrams RN Outcome: Progressing Problem: Low Risk for Self-Injurious Behavior: Goal: Ability to remain free from injury will improve Description (Low Risk) 03/19/2019419 by Xochitl Abrams RN Outcome: Progressing 03/19/2019419 by Xochitl Abrams RN Outcome: Progressing Goals: Clinical Goals for the Shift: remain free from injury, monitor and treat pain, obtain labs, continue antibiotics, and rest Summary: Patient remained free from injury and rested well throughout this shift. Labs obtained, potassium at 3.2. MD was notified and replacements were ordered. First of two doses administered. Vitals monitored and remained stable. Antibiotics continued as ordered. Pain monitored and treated with PRN pain medications. Patient currently reporting relief. Patient now resting comfortably in bed, reports minimal pain, denies shortness of breath, and s/s of distress or discomfort. * Plan of Care - Elisha Webster RN - 03/18/2019 4:41 PM CDT Goals: Clinical Goals for the Shift: monitor VS and labs, pain control, advance diet if tolerated Summary: Discussed present health concerns. Patient verbalized understanding. * Plan of Care - Lu Rizvi RN - 03/18/2019 1:20 AM CDT Goals: Clinical Goals for the Shift: monitor VS and labs, pain control, advance diet if tolerated Summary: VS stable. Pain controlled with current regimen. Pt tolerating full liquid diet well. Willcontinue to monitor. Problem: Activity: Goal: Risk for activity intolerance will decrease Outcome: Progressing Problem: Lack of Knowledge: Goal: Knowledge of disease or condition will improve Outcome: Progressing Goal: Ability to state and carry out methods to decrease the pain will improve Outcome: Progressing Problem: Nutritional: Goal: Nutritional status will be supported Outcome: Progressing Problem: Fluid Volume: Goal: Maintenance of adequate hydration will improve Outcome: Progressing Problem: Health Behavior: Goal: Ability to state signs and symptoms to report to health care provider will improve Outcome: Progressing Problem: Physical Regulation: Goal: Complications related to the disease process, condition or treatment will be avoided or minimized Outcome: Progressing Goal: Ability to maintain clinical measurements within normal limits will improve Outcome: Progressing Problem: Sensory: Goal: Ability to identify factors that increase the pain will improve Outcome: Progressing Goal: Ability to notify healthcare provider of pain before it becomes unmanageable or unbearable will improve Outcome: Progressing Goal: Pain level [...] respiratory rate will improve Outcome: Progressing Problem: Sensory: Goal: General experience of comfort will improve Outcome: Progressing Problem: Skin Integrity: Goal: Skin integrity will be maintained Outcome: Progressing Problem: Health Behavior: Goal: Understanding of discharge needs will improve Outcome: Progressing * Post-Procedure Note - Toy Quintana MD - 03/17/2019 2:04 PM CDT Radiology Brief Post Procedure Note Attending: Dr. Leiva Miller [place]: Analisa Mackenzie Sedation/Anesthesia: Min Sedation Pre-Op/Pre-Procedure Diagnosis: peripancreatic fluid collection Post-Op/Post-Procedure Diagnosis: same Procedure Performed: percutaneous drain placement in peripancreatic fluid collection Procedure Findings: Successful 16 Fr [place] loop drainage catheter placement in peripancreatic fluid collection. Dark brown fluid was draining. Complications: None Estimated Blood Loss: None Specimens: Peripancreatic fluid Condition: Stable Full report to follow. * Plan of Care - Cory Kaur RN - 03/17/2019 1:03 PM CDT Per notes/rounds/DCAM: Plan for discharge (referrals, support, transport): Plan is for patient to discharge home when medically ready. No new home needs identified at this time. Family to provide transportation and assistance at discharge. Patient and/or family agree with this discharge plan. ADD:03/18 Follow up appointment: patient to schedule Case management will continue to follow for discharge planning needs. If any further CM needs ariseplease call covering sample case porter. * Provider Query - Jumana Ochoa - 03/17/2019 11:30 AM CDT Clinical Indicators: Pt admitted 03/15/19: with Pancreatitis, necrotizing. 03/16/19: T-38.8, HR 109, Dx: Pancreatitis. CT Abdomen and Pelvis w/contrast to evaluate pancreatic fluid collections as source for new fever Treatments: IV Cefepime, IV Flagyl, IV Meropenem, IVF's continues, Biliary consult, Labs Please clarify the most likely etiology of the patient???s symptoms. Indicate Present on Admission status. SIRS or Sepsis Syndrome does not equate to Sepsis. It is only a constellation of symptoms _x__ Sepsis (infection plus systemic manifestations) ___ Severe Sepsis (sepsis without organ dysfunction or tissue hypo-perfusion) ___ Sepsis ruled out ___ Other, specify below ___ Clinically unable to determine Provider Response: Had temp to 38.8 with HR 109. No leukocytosis or tachypnea. Suspected source of infection her necrotizing pancreatitis. Meets 2/4 SIRS criteria with suspected source-> qualifies for sepsis. No altered mental status, other labs stable. Placed on broad spectrum antibiotics. Adult SIRS/Sepsis Screening Criteria SIRS Temp >38.3 C (100.9 F) or <36 (96.8 F) HR (pulse) >90 Respiratory rate >20 WBC > 12,000 or <4,000 or >10% bands Sepsis 2 of 4 SIRS criteria present AND suspected/confirmed source of infection Severe Sepsis Sepsis plus at least one sign of NEW hypoperfusion or organ dysfunction not limited to but may include: - Lactate >2 mmol/L - INR > 1.5 or aPTT >60 seconds - Platelet count <100,000 ??L?1 - Bilirubin >2 mg/dL - Creatinine >2 mg/dL (if no documentation of renal failure) - Urine output <0.5 mL/kg/hr x 2 hours - Acute respiratory failure with new need for mechanical ventilation or noninvasive ventilation - Altered mental status or Encephalopathy (new or acutely worsened due to infection) - One or more reading(s) of hypotension prior to 30ml/kg fluid bolus (SBP< 90 mmHG or MAP< 65, or SBP decrease of > 40 mmHG from baseline) Septic Shock Severe sepsis patients with: - Two or more readings of hypotension (SBP <90 or MAP< 65) after 30ml/kg fluid bolus, often requiring vasopressors or - Lactate >=4 Use of terms such as likely, suspected, possible, or probable (associated with a specific diagnosisthat is being evaluated, monitored, or treated as if it exists) are acceptable and can be coded in the inpatient setting when documented at the time of discharge. This documentation will become part of the patient???s medical record. Thank you for your response, Jumana Ochoa RN, MSN, CHIEF INSPECTOR, CDIS Clinical Assistant Professor Surgical Technology Biomass Boiler Operator [phone] * Plan of Care - Conchita Cleary RN - 03/17/2019 7:43 AM CDT Goals: Clinical Goals for the Shift: Pain control 09/21 Summary: Will monitor pain control on hourly rounds. * Assessment & Plan Note - Trish Caballero MD - 03/17/2019 6:57 AM CDT Associated Problem(s): Fever Febrile to 101.8 F overnight 03/15-03/16, no [...] and Pelvis w/contrast to evaluate pancreatic fluid collectionsas source for new fever, demonstrated interval increase [...] ID recs; no fever since PM 03/16 * Assessment & Plan Note - Trish Caballero MD - 03/17/2019 6:57 AM CDT Associated Problem(s): History of DVT (deep vein thrombosis) Reported on paperwork from [facility] in [facility], however patient has no recall of having prior DVT and was not on any outpatient anticoagulation. -On lovenox for ppx * Assessment & Plan Note - Trish Caballero MD - 03/17/2019 6:56 AM CDT Associated Problem(s): ETOH abuse Continues to drink 1/5 of Vodka per day. Previously attempted outpatient rehab but is interested ininpatient rehab. Received ativan while at [facility]. -Patient without etoh in 5 days, likely no need to etoh withdrawal scale at this time -Thiamine 100 mg, folic acid 1 mg every day -Social work consulted for rehab/ abstinence resources * Assessment & Plan Note - Trish Caballero MD - 03/17/2019 6:56 AM CDT Associated Problem(s): Pancreatitis, necrotizing -Consulted GI-Biliary. Massive hepatomegaly and current drinking habits are the first actionable target. Given new onset fevers overnight as above, ordred CTAP w/contrast per biliary recs to evaluatepancreatic fluid collections and plan possible interventions -Tylenol and Oxycodone 5 mg q6h prn for pain control, bowel regimen in place -Aggressively hydrated -03/16 Fever to 101.8, started on flagyl/cefe, broadened to herlinda in PM given re-fever -03/[address] drainage of [...] QTc 463), metronidazole 500 q12h until 03/27 * Assessment & Plan Note - Trish Caballero MD - 03/17/2019 6:56 AM CDT Associated Problem(s): Hyperglycemia Patient reports having blood sugars in the 300s while admitted at [place]. Blood sugar here is 95 but in the setting of poor PO intake. -A1c 5.3 -Monitor sugars * Plan of Care - Rai Johnston RN - 03/17/2019 1:04 AM CDT Goals: Clinical Goals for the Shift: Pain control 09/21 Summary: * Plan of Care - Mel Vela LCSW - 03/16/2019 1:51 PM CDT Social work met with the patient at bedside and provided printed chemical dependency treatment resources as requested. Patient voiced understanding of same. No further social work intervention is anticipated at this time. Mel Vela LCSW, * Assessment & Plan Note - Vickie Izaguirre MD - 03/16/2019 10:29 AM CDTAssociated Problem(s): Fever Febrile to 101.8 F overnight, no clear [...] IV Cefe/Flagyl this morning -f/u infectious workup * Subjective & Objective - Vickie Izaguirre MD - 03/16/2019 10:27 AM CDT General Medicine Daily Progress Subjective Chief complaint of abdominal pain. Interval History: Overnight patient was febrile with Tmax 38.8 C. Blood cultures x2, UA, CXR ordered. Patient remained hemodynamically stable and denies any complaints this morning, she states her abdominal pain is at baseline and she did not feel the fever last night. She denies any dysuria, cough, shortness of breath, headache, nausea. She has been tolerating a clear liquid diet but agreeable to remain NPO this morning in case GI recommends a procedure after CT Scan is completed. No other questions or concerns this morning. Objective Vitals: 24hr Min/Max: Temp Min: 37.3 ??C (99.1 ??F) Max: 38.8 ??C (101.8 ??F) Pulse Min: 109 Max: 125 BP Min: 109/75 Max: 127/79 Resp Min: 18 Max: 18 SpO2 Min: 95 % Max: 98 % Most Recent : Vitals: 03/16/19 0946 BP: Pulse: Resp: Temp: 37.3 ??C (99.1 ??F) SpO2: I/O last 2 completed shifts: In: 500 [I.V.:500] Out: - No intake/output data recorded. Physical Exam: General: NAD, resting comfortably in bed HEENT: EOMI, PERRL, no pharyngeal erythema, normocephalic/atraumatic CV: Heart regular rate and rhythm, no friction rub, no murmur/rub/gallop Pulm: Lungs clear to auscultation bilaterally, non-labored breathing Abdomen: Soft, mildly distended, ttp of epigastric region, +bowel sounds, no rebound tenderness MSK: No joint effusions Extremities: Warm, well perfused, no edema Neuro: Alert & oriented x4, no focal deficits Psych: Cooperative, normal mood and affect Lab/Radiology/Diagnostic Review: Laboratory review: Lab results in the last 12 hours: Recent Results (from the past 12 hour(s)) CBC without differential Collection Time: 03/16/19 6:10 AM Result Value Ref Range WBC 8.0 3.8 - 9.9 K/cumm Hgb 9.0 (L) 11.9 - 15.5 g/dL Hct 27.0 (L) 35.6 - 45.5 % Plt 221 150 - 400 K/cumm MPV 10.2 9.1 - 12.3 fL RBC 2.59 (L) 3.90 - 5.20 M/cumm MCV 104.2 (H) 81.3 - 96.4 fL MCH 34.7 (H) 27.1 - 33.3 pg MCHC 33.3 32.3 - 35.7 g/dL RDW CV 18.3 (H) 11.1 - 14.9 % RDW SD 69.8 (H) 35.7 - 48.1 fL NRBC abs 0.00 0.00 - 0.01 K/cumm Comprehensive metabolic panel Collection Time: 03/16/19 6:10 AM Result Value Ref Range Sodium 134 (L) 135 - 145 mmol/L Potassium, pl 3.8 3.3 - 4.9 mmol/L Chloride 100 97 - 110 mmol/L CO2 26 22 - 32 mmol/L Anion gap 8 2 - 15 mmol/L BUN 3 (L) 8 - 25 mg/dL Creatinine 0.44 (L) 0.60 - 1.10 mg/dL Glucose 110 70 - 199 mg/dL Calcium 8.1 (L) 8.5 - 10.3 mg/dL Bilirubin, total 3.8 (H) 0.1 - 1.2 mg/dL Protein, pl 5.6 (L) 6.5 - 8.5 g/dL Albumin 2.1 (L) 3.5 - 5.0 g/dL Alk phos 173 (H) 40 - 130 Units/L ALT 25 7 - 45 Units/L AST 77 (H) 10 - 45 Units/L Urinalysis reflex to microscopic and culture Urine Collection Time: 03/16/19 8:23 AM Result Value Ref Range Color, ur Anneliese Yellow Clarity, ur Cloudy (A) Clear Specific gravity, ur 1.012 1.010 - 1.025 pH, urine 6 Protein, ur ql Negative Negative Glucose, ur ql Negative Negative Ketones, ur Trace Negative Bilirubin, ur 1+ (A) Negative Blood, ur Negative Negative Urobilinogen, ur 4.0 (A) <2.0 mg/dL Nitrite, ur Negative Negative Leukocyte esterase, ur Negative Negative * Plan of Care - Roopa Carbajal RN - 03/16/2019 2:35 AM CDT Goals: Clinical Goals for the Shift: monitor/manage pain, tolerate clears Summary: * Hospital Course - Trish Caballero MD - 03/15/2019 12:25 PM CDT Pancreatitis, necrotizing Ms. Lott was transferred from an OSH for necrotizing pancreatitis. GI- Biliary was consulted, who believed massive hepatomegaly and current drinking habits to be the first actionable targets. Shewas aggressively hydrated with NS, provided oxycodone 5mg q6h PRN for pain, and was monitoried initailly without starting antibiotics. Overnight on 03/16, she fevered to 101.8 and was started on cefe/flagyl. Given new onset fevers, ordered a CTAP w/contrast per biliary recs to evaluate pancreatic fluid collections and plan possible interventions, CT with interval increase in size of peripancreaticfluid collections, focal colitis at the splenic flexure abutting the necrotic pancreatic tissue, and common bile duct smooth wall thickening suggestive of possible cholangitis. Biliary believed nothing to do at the time. She fevered through cefe/flagyl to 100.4 and was broadened to meropenem on thePM 03/16. Blood cultures from 03/16 were No growth (final). She underwent percutaneous peripancreaticdrain placement with IR on 03/17, fluid gram stain without organisms and final cultures were no growth. The fever may have been related to inflammation versus actual infection, and she was transitioned to PO flagyl/levaquin on 03/19. The drain continued to put out 100-200cc brownish fluid daily up until the date of discharge. She did not re- fever, and on 03/20 ID was consulted for outpatient antibiotic regimen recommendations regarding length of treatment. An EKG was done to monitor her QTc given their antibiotic recommendations, and her QTc was normal at 463. She was discharged in stable condition on flagyl 500 TID and ciprofloxacin 500 BID until 03/27. She has outpatient follow up with IR for drain management on 03/27/19 at 9am. She was provided with the number to our GI-Biliary specialists to schedule outpatient follow up. The patient was instructed on the importance of abstaining from alcohol especially while talking flagyl. ETOH abuse Prior to admission, patient continued to drink 1/5 of Vodka per day. Previously attempted outpatient rehab and is interested in again doing intensive outpatient treatment. Received ativan while at [facility] but did not receive any on the day of transfer and by the time of presentation to [facility] had been without alcohol for >5 days so was not placed on CIWA. She was monitored for any signsof withdrawal and did not require any ativan. She was continued on 100mg thiamine and 1mg folic acid daily and discharged with these medications. Social work was consulted and provided rehab/ abstinence resources, and the patient plans to attend AA at her local [place] chapter and is motivated to abstain. History of DVT (deep vein thrombosis) Reported on paperwork from [facility] in [facility], however patient has no recall of having prior DVT and was not on any outpatient anticoagulation. She was kept on lovenox for ppx. * Plan of Care - Rosemary Cleary RN - 03/15/2019 9:38 AM CDT Goals: Clinical Goals for the Shift: NPO, monitor/manage pain Summary: * Assessment & Plan Note - Destinee Betancur MD PhD - 03/15/2019 3:26 AM CDTAssociated Problem(s): History of DVT (deep vein thrombosis) -On lovenox * Assessment & Plan Note - Destinee Betancur MD PhD - 03/15/2019 2:27 AM CDTAssociated Problem(s): Hyperglycemia Patient reports having blood sugars in the 300s while admitted at [place]. Blood sugar here is 95 but in the setting of poor PO intake. -A1c 5.3 -Monitor sugars * Plan of Care - Roopa Carbajal RN - 03/15/2019 1:58 AM CDT Goals: Clinical Goals for the Shift: NPO, monitor/manage pain Summary: * Assessment & Plan Note - Destinee Betancur MD PhD - 03/15/2019 1:05 AM CDTAssociated Problem(s): Pancreatitis, necrotizing -Consulted GI-Biliary. Massive hepatomegaly and current drinking habits are the first actionable target. Given new onset fevers overnight as above, ordred CTAP w/contrast per biliary recs to evaluatepancreatic fluid collections and plan possible interventions -Tylenol and Oxycodone 5 mg q6h prn for pain control -On NaCl 100 cc/hr -Was tolerating CLD, now NPO for possible procedures * Assessment & Plan Note - Destinee Betancur MD PhD - 03/15/2019 12:51 AM CDTAssociated Problem(s): ETOH abuse Continues to drink 1/5 of Vodka per day. Previously attempted outpatient rehab but is interested ininpatient rehab. Received ativan while at [facility]. -Patient without etoh in 5 days, likely no need to etoh withdrawal scale at this time -Thiamine 100 mg, folic acid 1 mg every day -Social work consulted for rehab/ abstinence resources documented in this encounter Plan of Treatment Scheduled Orders Name Type Priority Associated Diagnoses Orde r Schedule CT Body Outside Reference Imaging Routine Diagnosis unknown Once for 1 Occurrences starting 03/15/2019 until 03/15/2019, 1 completed documented as of this encounter Procedures Procedure Name Priority Date/Time Associated Diagnosis Comments HIV 1/2 ANTIBODY PLUS P24 ANTIGEN STAT 03/21/2019 6:53 AM CDT ECG 12-LEAD Routine 03/21/2019 6:36 AM CDT DIFFERENTIAL AUTO Routine 03/20/2019 9:0 4 PM CDT CBC WITH AUTO DIFFERENTIAL Routine 03/20/2019 9:04 PM CDT HEPATITIS C ANTIBODY Routine 03/20/2019 9:04 PM CDT VITAMIN B12 Routine 03/20/2019 9:04 PM CDT COMPREHENSIVE METABOLIC PANEL Routine 03/20/2019 9:04 PM CDT ECG 12-LEAD Routine 03/20/2019 5:26 PM CDT DIFFERENTIAL AUTO Routine 03/19/2019 8:5 7 PM CDT CBC WITH AUTO DIFFERENTIAL Routine 03/19/2019 8:57 PM CDT COMPREHENSIVE METABOLIC PANEL Routine 03/19/2019 8:57 PM CDT DIFFERENTIAL AUTO Routine 03/18/2019 8:3 5 PM CDT CBC WITH AUTO DIFFERENTIAL Routine 03/18/2019 8:35 PM CDT COMPREHENSIVE METABOLIC PANEL Routine 03/18/2019 8:35 PM CDT CBC WITHOUT DIFFERENTIAL Routine 03/18/2019 4:37 AM CDT COMPREHENSIVE METABOLIC PANEL Routine 03/18/2019 4:37 AM CDT IMAGE GUIDED DRAINAGE PERITONEAL OR RETROPERITONEAL FLUID COLLECTION IP Routine 03/17/2019 2:11 PM CDT AEROBIC AND ANAEROBIC CULTURE AND GRAM STAIN Routine 03/17/2019 1:53 PM CDT CBC WITHOUT DIFFERENTIAL Routine 03/17/2019 6:25 AM CDT COMPREHENSIVE METABOLIC PANEL Routine 03/17/2019 6:[address] ABDOMEN PELVIS W CONTRAST IP Routine 03/16/2019 10:29 AM CDT BLOOD CULTURE Routine 03/16/2019 9:22 AM CDT BLOOD CULTURE Routine 03/16/2019 9:11 AM CDT URINALYSIS AND REFLEX TO MICROSCOPIC AND CULTURE Routine 03/16/2019 8:23 AM CDT XR CHEST 1 VIEW IP Routine 03/16/2019 7:55 AM CDT CBC WITHOUT DIFFERENTIAL Routine 03/16/2019 6:10 AM CDT COMPREHENSIVE METABOLIC PANEL Routine 03/16/2019 6:[address] BODY OUTSIDE REFERENCE Routine 03/15/2019 6:12 AM CDT Diagnosis unknown MR BODY OUTSIDE CONSULT Routine 03/15/20 19 5:32 AM CDT Diagnosis unknown CBC WITHOUT DIFFERENTIAL Routine 03/15/2019 1:47 AM CDT LIPASE Routine 03/15/2019 1:47 AM CDT HEMOGLOBIN A1C Routine 03/15/2019 1:47 AM CDT BILIRUBIN, DIRECT Routine 03/15/2019 1:4 7 AM CDT COMPREHENSIVE METABOLIC PANEL Routine 03/15/2019 1:47 AM CDT documented in this encounter Results * IR Inject Abscess Catheter (03/27/2019 9:26 [...] questions arise, please contact us by calling [phone]. Dictated by: Toy Quintana M.D. The radiology attending physician has personally reviewed this study, and had reviewed and/or edited this written report and agrees with it. Electronically signed by: Timothy Teixeira M.D. Narrative 03/27/2019 4:07 PM CDT EXAMINATION: ??DRAINAGE CATHETER EVALUATION ?? HISTORY: ??38-year-old woman with necrotizing pancreatitis and peripancreatic fluid collection status post 16-[place]anese [place] loop drainage catheter placement on 03/17/2019. ??Patient presents for her 1st drain evaluation. ATTENDING PRESENCE: ??Timothy Teixeira M.D., the attending radiologist, was present from the beginning to the end of the procedure. SEDATION: ??The patient did not require conscious sedation for the procedure. TECHNIQUE: Prior to beginning the procedure, Myra Protocol was used to confirm the patient's identity and planned procedure. Fluoroscopy time has been recorded in the electronic medical record. After obtaining a transfer worker image, the catheter was injected with dilute [...] pancreatitis and peripancreatic fluid collection status post 16-[place]anese [place] loop drainage catheter placement on 03/17/2019. Patient presents for her 1st drain evaluation. ATTENDING PRESENCE: Timothy Teixeira M.D., the attending radiologist, was present from the beginning to the end of the procedure. SEDATION: The patient did not require conscious sedation for the procedure. TECHNIQUE: Prior to beginning the procedure, Myra Protocol was used to confirm the patient's identity and planned procedure. Fluoroscopy time has been recorded in the electronic medical record. After obtaining a transfer worker image, the catheter was injected with dilute [...] questions arise, please contact us by calling [phone]. Dictated by: Toy Quintana M.D. The radiology attending physician has personally reviewed this study, and had reviewed and/or edited this written report and agrees with it. Electronically signed by: Timothy Teixeira M.D. us Destinee CELAYA IMG IR PROCEDURES Final Result * HIV 1/2 Antibody plus p24 Antigen (03/21/2019 6:53 AM CDT) Pathologist [facility] HIV 1/2 ab + p24 ag Nonreactive Nonreactive [facility] Comment: Nonreactive for HIV-1 antigen and HIV-1/HIV-2 antibodies. No laboratory evidence of HIV infection. If acute HIV infection is suspected, consider testing for HIV-1 RNA. Blood specimen (specimen) 03/21/2019 6:53 AM CDT 03/21/2019 7:45 AM CDT Trish Caballero MD LAB MICROBIOLOGY - NERAL ORDERABLES Final Result [facility] [address] [place] [address] * ECG 12 lead (03/21/2019 6:36 AM CDT) Pathologist [facility] Ventricular Rate EKG/Min 68 BPM [facility] Atrial Rate 68 BPM [facility] MN-Interval (MSEC) 142 ms [facility] QRS-Interval (MSEC) 74 ms [facility] QT-Interval (MSEC) 436 ms [facility] QTc 463 ms [facility] P [place] 38 degrees [facility] R [place] 8 degrees [facility] T [place] [address] [facility] Diagnosis Baseline artifact Normal sinus rhythm Cannot rule out Anterior infarct , age undetermined Abnormal ECG No previous ECGs available Confirmed by LZI ANDERSON M.D ([id number]) on 03/21/2019 11:37:[address] [facility] 03/21/2019 6:36 AM CDT 03/21/2019 11:37 AM CDT Maico Brar MD ECG ORDERABLES Final Result Performing Organization Address [facility] Co de Phone Number [facility] * (ABNORMAL) Vitamin B12 (03/20/2019 9:04 PM CDT) Pathologist [facility] Vitamin B12 >2,000(H) 230 - 1,250 pg/mL [facility] Blood specimen (specimen) 03/20/2019 9:04 PM CDT 03/20/2019 10:16 PM CDT Maico Brar MD LAB BLOOD ORDERABLES F inal Result Performing Organization Address [facility] de Phone Number [address] [address] * Hepatitis C antibody (03/20/2019 9:04 PM CDT) [facility] Hep C Ab Nonreactive Nonreactive [facility] Comment: Interpretive Data Positive results should be confirmed by a molecular method. If positive, a second separately collected sample should be submitted for Hepatitis C Virus (HCV) RNA Detection and Quantitation by Real-Time Reverse Ed Tech-PCR (RT-PCR). Current interpretive data was last revised on 2016. Blood specimen (specimen) 03/20/2019 9:04 PM CDT 03/20/2019 10:16 PM CDT Maico Brar MD LAB MICROBIOLOGY - GEN ERAL ORDERABLES Edited Result - Final Performing Organization Address [facility] Co de Phone Number [address] [phone] * Differential, auto (03/20/2019 9:04 PM CDT) Neutrophil abs 3.8 1.7 - 6.5 K/cumm [facility] Imm gran abs 0.1 0.0 - 0.1 K/cumm [facility] Lymphocyte abs 2.5 0.8 - 3.3 K/cumm [facility] Monocyte abs 0.7 0.2 - 0.8 K/cumm [facility] Eosinophil abs 0.1 0.0 - 0.5 K/cumm [facility] Basophil abs 0.0 0.0 - 0.1 K/cumm [facility] Neutrophil pct 51.8 % [facility] Comment: Interpretive Data Percent cell count reference ranges are not reported, since discordance with absolute values may lead to misinterpretation of CBC data. Current Interpretive Data was last revised on 2017. Imm gran pct 1.7 % [facility] Comment: Interpretive Data Percent cell count reference ranges are not reported, since discordance with absolute values may lead to misinterpretation of CBC data. Current Interpretive Data was last revised on 2017. Lymphocyte pct 34.6 % [facility] Comment: Interpretive Data Percent cell count reference ranges are not reported, since discordance with absolute values may lead to misinterpretation of CBC data. Current Interpretive Data was last revised on 2017. Monocyte pct 9.4 % [facility] Comment: Interpretive Data Percent cell count reference ranges are not reported, since discordance with absolute values may lead to misinterpretation of CBC data. Current Interpretive Data was last revised on 2017. Eosinophil pct 1.9 % [facility] Comment: Interpretive Data Percent cell count reference ranges are not reported, since discordance with absolute values may lead to misinterpretation of CBC data. Current Interpretive Data was last revised on 2017. Basophil pct 0.6 % [facility] Comment: Interpretive Data Percent cell count reference ranges are not reported, since discordance with absolute values may lead to misinterpretation of CBC data. Current Interpretive Data was last revised on 2017. Blood specimen (specimen) 03/20/2019 9:04 PM CDT 03/20/2019 10:16 PM CDT us Apple Bridger Trejo MD LAB BLOOD ORDERA BLES Final Result [facility] [address] [place] [address] * (ABNORMAL) Comprehensive metabolic panel (03/20/2019 9:04 PM CDT) Sodium 135 135 - 145 mmol/L [facility] Potassium, pl 4.1 3.3 - 4.9 mmol/L [facility] Chloride 101 97 - 110 mmol/L [facility] CO2 26 22 - 32 mmol/L [facility] Anion gap 8 2 - 15 mmol/L [facility] BUN <2(L) 8 - 25 mg/dL [facility] Creatinine 0.46(L) 0.60 - 1.10 mg/dL [facility] Glucose 122 70 - 199 mg/dL [facility] Comment: Interpretive Data Fasting glucose >/= [...] interpretive data was last revised 2017. Calcium 9.5 8.5 - 10.3 mg/dL [facility] Bilirubin, total 2.2(H) 0.1 - 1.2 mg/dL [facility] Protein, pl 6.4(L) 6.5 - 8.5 g/dL [facility] Albumin 2.2(L) 3.5 - 5.0 g/dL [facility] Alk phos 171(H) 40 - 130 Units/L [facility] ALT 29 7 - 45 Units/L [facility] AST 98(H) 10 - 45 Units/L [facility] Blood specimen (specimen) 03/20/2019 9:04 PM CDT 03/20/2019 10:16 PM CDT us Apple Bridger Trejo MD LAB BLOOD ORDERA BLES Final Result Performing Organization Address [facility] Co de Phone Number [facility] [address] [place] [address] * (ABNORMAL) CBC with auto differential (03/20/2019 9:04 PM CDT) Pathologist [facility] WBC 7.2 3.8 - 9.9 K/cumm [facility] Hgb 10.6(L) 11.9 - 15.5 g/dL [facility] Hct 32.9(L) 35.6 - 45.5 % [facility] Plt 360 150 - 400 K/cumm [facility] MPV 9.8 9.1 - 12.3 fL [facility] RBC 3.03(L) 3.90 - 5.20 M/cumm [facility] MCV 108.6(H) 81.3 - 96.4 fL [facility] MCH 35.0(H) 27.1 - 33.3 pg [facility] MCHC 32.2(L) 32.3 - 35.7 g/dL [facility] RDW CV 17.6(H) 11.1 - 14.9 % [facility] RDW SD 70.4(H) 35.7 - 48.1 fL [facility] NRBC abs 0.00 0.00 - 0.01 K/cumm [facility] Blood specimen (specimen) 03/20/2019 9:04 PM CDT 03/20/2019 10:16 PM CDT us Apple Bridger Trejo MD LAB BLOOD ORDERA BLES Final Result Performing Organization Address [facility] Co de Phone Number [facility] [address] [place] [address] * ECG 12 lead (03/20/2019 5:26 PM CDT) Ventricular Rate EKG/Min 67 BPM [facility] Atrial Rate 67 BPM [facility] [place]-Interval (MSEC) [address] [facility] QRS-Interval (MSEC) [address] [facility] QT-Interval (MSEC) [address] [facility] QTc [address] [facility] P [place] [address] [facility] R [place] -[address] [facility] T [place] [address] [facility] Diagnosis Poor data quality, interpretation may be adversely affected Sinus rhythm with Fusion complexes Nonspecific ST and T wave abnormality Abnormal ECG No previous ECGs available Confirmed by LIZ ANDERSON M.D ([id number]) on 03/21/2019 11:37:[address] [facility] 03/20/2019 5:26 PM CDT 03/21/2019 11:37 AM CDT us Maico Brar MD ECG ORDERABLES Final Result [facility] [place] * Differential, auto (03/19/2019 8:57 PM CDT) Neutrophil abs 3.9 1.7 - 6.5 K/cumm [facility] Imm gran abs 0.1 0.0 - 0.1 K/cumm [facility] Lymphocyte abs 2.0 0.8 - 3.3 K/cumm [facility] Monocyte abs 0.5 0.2 - 0.8 K/cumm [facility] Eosinophil abs 0.1 0.0 - 0.5 K/cumm [facility] Basophil abs 0.0 0.0 - 0.1 K/cumm [facility] Neutrophil pct 59.7 % [facility] Comment: Interpretive Data Percent cell count reference ranges are not reported, since discordance with absolute values may lead to misinterpretation of CBC data. Current Interpretive Data was last revised on 2017. Imm gran pct 1.1 % [facility] Comment: Interpretive Data Percent cell count reference ranges are not reported, since discordance with absolute values may lead to misinterpretation of CBC data. Current Interpretive Data was last revised on 2017. Lymphocyte pct 29.7 % [facility] Comment: Interpretive Data Percent cell count reference ranges are not reported, since discordance with absolute values may lead to misinterpretation of CBC data. Current Interpretive Data was last revised on 2017. Monocyte pct 7.6 % [facility] Comment: Interpretive Data Percent cell count reference ranges are not reported, since discordance with absolute values may lead to misinterpretation of CBC data. Current Interpretive Data was last revised on 2017. Eosinophil pct 1.4 % [facility] Comment: Interpretive Data Percent cell count reference ranges are not reported, since discordance with absolute values may lead to misinterpretation of CBC data. Current Interpretive Data was last revised on 2017. Basophil pct 0.5 % [facility] Comment: Interpretive Data Percent cell count reference ranges are not reported, since discordance with absolute values may lead to misinterpretation of CBC data. Current Interpretive Data was last revised on 2017. Blood specimen (specimen) 03/19/2019 8:57 PM CDT 03/19/2019 9:42 PM CDT us Apple Bridger Trejo MD LAB BLOOD ORDERA BLES Final Result [facility] [address] [place] [address] * (ABNORMAL) Comprehensive metabolic panel (03/19/2019 8:57 PM CDT) Sodium 138 135 - 145 mmol/L [facility] Potassium, pl 4.5 3.3 - 4.9 mmol/L [facility] Chloride 105 97 - 110 mmol/L [facility] CO2 26 22 - 32 mmol/L [facility] Anion gap 7 2 - 15 mmol/L [facility] BUN 3(L) 8 - 25 mg/dL [facility] Creatinine 0.47(L) 0.60 - 1.10 mg/dL [facility] Glucose 122 70 - 199 mg/dL [facility] Comment: Interpretive Data Fasting glucose >/= [...] interpretive data was last revised 2017. Calcium 8.4(L) 8.5 - 10.3 mg/dL [facility] Bilirubin, total 2.3(H) 0.1 - 1.2 mg/dL [facility] Protein, pl 6.2(L) 6.5 - 8.5 g/dL [facility] Albumin 2.2(L) 3.5 - 5.0 g/dL [facility] Alk phos 170(H) 40 - 130 Units/L [facility] ALT 34 7 - 45 Units/L [facility] AST 110(H) 10 - 45 Units/L [facility] Blood specimen (specimen) 03/19/2019 8:57 PM CDT 03/19/2019 9:44 PM CDT us Apple Bridger Trejo MD LAB BLOOD ORDERA BLES Final Result [facility] [address] [place] [address] * (ABNORMAL) CBC with auto differential (03/19/2019 8:57 PM CDT) WBC 6.6 3.8 - 9.9 K/cumm [facility] Hgb 9.1(L) 11.9 - 15.5 g/dL [facility] Hct 29.0(L) 35.6 - 45.5 % [facility] Plt 343 150 - 400 K/cumm [facility] MPV 10.2 9.1 - 12.3 fL [facility] RBC 2.68(L) 3.90 - 5.20 M/cumm [facility] MCV 108.2(H) 81.3 - 96.4 fL [facility] MCH 34.0(H) 27.1 - 33.3 pg [facility] MCHC 31.4(L) 32.3 - 35.7 g/dL [facility] RDW CV 17.7(H) 11.1 - 14.9 % [facility] RDW SD 69.5(H) 35.7 - 48.1 fL [facility] NRBC abs 0.00 0.00 - 0.01 K/cumm [facility] Blood specimen (specimen) 03/19/2019 8:57 PM CDT 03/19/2019 9:42 PM CDT us Apple Bridger Trejo MD LAB BLOOD ORDERA BLES Final Result [facility] [address] [place] [address] * Differential, auto (03/18/2019 8:35 PM CDT) Neutrophil abs 3.9 1.7 - 6.5 K/cumm [facility] Imm gran abs 0.1 0.0 - 0.1 K/cumm [facility] Lymphocyte abs 2.5 0.8 - 3.3 K/cumm [facility] Monocyte abs 0.6 0.2 - 0.8 K/cumm [facility] Eosinophil abs 0.2 0.0 - 0.5 K/cumm [facility] Basophil abs 0.0 0.0 - 0.1 K/cumm [facility] Neutrophil pct 53.2 % [facility] Comment: Interpretive Data Percent cell count reference ranges are not reported, since discordance with absolute values may lead to misinterpretation of CBC data. Current Interpretive Data was last revised on 2017. Imm gran pct 1.5 % [facility] Comment: Interpretive Data Percent cell count reference ranges are not reported, since discordance with absolute values may lead to misinterpretation of CBC data. Current Interpretive Data was last revised on 2017. Lymphocyte pct 34.4 % [facility] Comment: Interpretive Data Percent cell count reference ranges are not reported, since discordance with absolute values may lead to misinterpretation of CBC data. Current Interpretive Data was last revised on 2017. Monocyte pct 8.3 % [facility] Comment: Interpretive Data Percent cell count reference ranges are not reported, since discordance with absolute values may lead to misinterpretation of CBC data. Current Interpretive Data was last revised on 2017. Eosinophil pct 2.2 % [facility] Comment: Interpretive Data Percent cell count reference ranges are not reported, since discordance with absolute values may lead to misinterpretation of CBC data. Current Interpretive Data was last revised on 2017. Basophil pct 0.4 % [facility] Comment: Interpretive Data Percent cell count reference ranges are not reported, since discordance with absolute values may lead to misinterpretation of CBC data. Current Interpretive Data was last revised on 2017. Blood specimen (specimen) 03/18/2019 8:35 PM CDT 03/18/2019 9:20 PM CDT us Apple Bridger Trejo MD LAB BLOOD ORDERA BLES Final Result [facility] [address] [place] [address] * (ABNORMAL) Comprehensive metabolic panel (03/18/2019 8:35 PM CDT) Sodium 137 135 - 145 mmol/L [facility] Potassium, pl 3.2(L) 3.3 - 4.9 mmol/L [facility] Chloride 104 97 - 110 mmol/L [facility] CO2 27 22 - 32 mmol/L [facility] Anion gap 6 2 - 15 mmol/L [facility] BUN 3(L) 8 - 25 mg/dL [facility] Creatinine 0.43(L) 0.60 - 1.10 mg/dL [facility] Glucose 97 70 - 199 mg/dL [facility] Comment: Interpretive Data Fasting glucose >/= [...] interpretive data was last revised 2017. Calcium 8.1(L) 8.5 - 10.3 mg/dL [facility] Bilirubin, total 2.7(H) 0.1 - 1.2 mg/dL [facility] Protein, pl 5.8(L) 6.5 - 8.5 g/dL [facility] Albumin 2.1(L) 3.5 - 5.0 g/dL [facility] Alk phos 166(H) 40 - 130 Units/L [facility] ALT 25 7 - 45 Units/L [facility] AST 86(H) 10 - 45 Units/L [facility] Blood specimen (specimen) 03/18/2019 8:35 PM CDT 03/18/2019 9:20 PM CDT us Apple Bridger Trejo MD LAB BLOOD ORDERA BLES Final Result [facility] [address] [place] [address] * (ABNORMAL) CBC with auto differential (03/18/2019 8:35 PM CDT) WBC 7.3 3.8 - 9.9 K/cumm [facility] Hgb 9.0(L) 11.9 - 15.5 g/dL [facility] Hct 28.6(L) 35.6 - 45.5 % [facility] Plt 323 150 - 400 K/cumm [facility] MPV 10.3 9.1 - 12.3 fL [facility] RBC 2.62(L) 3.90 - 5.20 M/cumm [facility] MCV 109.2(H) 81.3 - 96.4 fL [facility] MCH 34.4(H) 27.1 - 33.3 pg [facility] MCHC 31.5(L) 32.3 - 35.7 g/dL [facility] RDW CV 17.8(H) 11.1 - 14.9 % [facility] RDW SD 71.0(H) 35.7 - 48.1 fL [facility] NRBC abs 0.00 0.00 - 0.01 K/cumm [facility] Blood specimen (specimen) 03/18/2019 8:35 PM CDT 03/18/2019 9:20 PM CDT us Apple Brdiger Trejo MD LAB BLOOD ORDERA BLES Final Result [facility] [address] [place] [address] * (ABNORMAL) Comprehensive metabolic panel (03/18/2019 4:37 AM CDT) Sodium 138 135 - 145 mmol/L [facility] Potassium, pl 3.6 3.3 - 4.9 mmol/L [facility] Chloride 103 97 - 110 mmol/L [facility] CO2 26 22 - 32 mmol/L [facility] Anion gap 9 2 - 15 mmol/L [facility] BUN 2(L) 8 - 25 mg/dL [facility] Creatinine 0.42(L) 0.60 - 1.10 mg/dL [facility] Glucose 86 70 - 199 mg/dL [facility] Comment: Interpretive Data Fasting glucose >/= [...] interpretive data was last revised 2017. Calcium 8.4(L) 8.5 - 10.3 mg/dL [facility] Bilirubin, total 3.9(H) 0.1 - 1.2 mg/dL [facility] Protein, pl 6.5 6.5 - 8.5 g/dL [facility] Albumin 2.3(L) 3.5 - 5.0 g/dL [facility] Alk phos 183(H) 40 - 130 Units/L [facility] ALT 27 7 - 45 Units/L [facility] AST 83(H) 10 - 45 Units/L [facility] Blood specimen (specimen) 03/18/2019 4:37 AM CDT 03/18/2019 5:57 AM CDT Chuckie Vega MD LAB BLOOD ORDERABLES Santino alison Result - Final Performing Organization Address [facility] Co de Phone Number [address] [address] * (ABNORMAL) CBC without differential (03/18/2019 4:37 AM CDT) Pathologist [facility] WBC 8.3 3.8 - 9.9 K/cumm [facility] Hgb 10.0(L) 11.9 - 15.5 g/dL [facility] Hct 31.7(L) 35.6 - 45.5 % [facility] Plt 328 150 - 400 K/cumm [facility] MPV 10.3 9.1 - 12.3 fL [facility] RBC 2.95(L) 3.90 - 5.20 M/cumm [facility] MCV 107.5(H) 81.3 - 96.4 fL [facility] MCH 33.9(H) 27.1 - 33.3 pg [facility] MCHC 31.5(L) 32.3 - 35.7 g/dL [facility] RDW CV 17.8(H) 11.1 - 14.9 % [facility] RDW SD 71.1(H) 35.7 - 48.1 fL [facility] NRBC abs 0.00 0.00 - 0.01 K/cumm [facility] Blood specimen (specimen) 03/18/2019 4:37 AM CDT 03/18/2019 4:58 AM CDT Chuckie Vega MD LAB BLOOD ORDERABLES Fin al Result Performing Organization Address [facility] Co de Phone Number [address] [address] * Image Guided Drainage Peritoneal or Retroperitoneal Fluid Collection (03/17/2019 2:11 PM CDT) Anatomical Region Laterality Modality Body N/A X-Ray Angiograph y 03/17/2019 4:03 PM CDT Impressions 03/17/2019 4:19 PM CDT Successful image guided peripancreatic fluid collection drainage with a 16-[place] loop drainage catheter. PLAN: This tube should flushed with 20 mL of saline twice a day The patient should follow-up for drain evaluation in 7 days. Dictated by: Toy Quintana M.D. The radiology attending physician has personally reviewed this study, and had reviewed and/or edited this written report and agrees with it. Electronically signed by: French Leiva M.D. Narrative 03/17/2019 4:19 PM CDT EXAMINATION: ??PERCUTANEOUS DRAINAGE (STD) HISTORY/INDICATION: ??38-year-old woman with necrotizing pancreatitis presents with fever and CT findings of a peripancreatic fluid collection. ??Request for percutaneous drainage was made. ATTENDING PRESENCE: French Leiva M.D., the attending radiologist was present from the beginning to the end of the procedure. ?? SEDATION: Procedural sedation was administered under the attending physician's direction and continuous monitoring by a trained nurse specialist who was independent from those actually performing the procedure. ??Total monitored sedation time was 20 minutes. TECHNIQUE: The risks, benefits and alternatives were discussed and informed consent was obtained. ??Prior to beginning the procedure, Myra Protocol was used to confirm the patient's identity and planned procedure. ??If fluoroscopy was used, fluoroscopy time has been recorded in the electronic medical record. Maximum sterile barriers including cap, mask, hand hygiene, sterile gloves, sterile gown, large sterile drape and 2% chlorhexidine for cutaneous antisepsis were used. ?? The skin overlying the fluid collection in the left side was sterilely prepped, draped and infiltrated with 1% buffered lidocaine. The targeted collection was then accessed with a 21 gauge needle using imaging guidance which included ultrasound and fluoroscopy. Contrast was injected to confirm needle placement. ?? A guidewire was advanced and coiled within the collection before dilating the tract to ??16 Fr. ??A 16-[place]anese [place] loop drainage catheter was then advanced over the guidewire and secured in place with a stitch of 0-Prolene. The catheter was connected to gravity drainage. ??A sterile dressing was applied. A sample of the fluid was sent for culture ESTIMATED BLOOD LOSS: Minimal. CONDITION: Stable DISCHARGED TO: Recovery and then to inpatient unit. ?? FINDINGS: Images from the procedure revealed multiple interconnected fluid collections. The fluid appeared dark brown. ??An approximate volume of 20 cc was drained at the time of the procedure. Procedure Note French Leiva MD - 03/17/2019 EXAMINATION: PERCUTANEOUS DRAINAGE (STD) HISTORY/INDICATION: 38-year-old woman with necrotizing pancreatitis presents with fever and CT findings of a peripancreatic fluid collection. Request for percutaneous drainage was made. ATTENDING PRESENCE: French Leiva M.D., the attending radiologist was present from the beginning to the end of the procedure. SEDATION: Procedural sedation was administered under the attending physician's direction and continuous monitoring by a trained nurse specialist who was independent from those actually performing the procedure. Total monitored sedation time was 20 minutes. TECHNIQUE: The risks, benefits and alternatives were discussed and informed consent was obtained. Prior to beginning the procedure, Myra Protocol was used to confirm the patient's identity and planned procedure. If fluoroscopy was used, fluoroscopy time has been recorded in the electronic medical record. Maximum sterile barriers including cap, mask, hand hygiene, sterile gloves, sterile gown, large sterile drape and 2% chlorhexidine for cutaneous antisepsis were used. The skin overlying the fluid collection in the left side was sterilely prepped, draped and infiltrated with 1% buffered lidocaine. The targeted collection was then accessed with a 21 gauge needle using imaging guidance which included ultrasound and fluoroscopy. Contrast was injected to confirm needle placement. A guidewire was advanced and coiled within the collection before dilating the tract to 16 Fr. A 16-[place]anese [place] loop drainage catheter was then advanced over the guidewire and secured in place with a stitch of 0-Prolene. The catheter was connected to gravity drainage. A sterile dressing was applied. A sample of the fluid was sent for culture ESTIMATED BLOOD LOSS: Minimal. CONDITION: Stable DISCHARGED TO: Recovery and then to inpatient unit. FINDINGS: Images from the procedure revealed multiple interconnected fluid collections. The fluid appeared dark brown. An approximate volume of 20 cc was drained at the time of the procedure. IMPRESSION: Successful image guided peripancreatic fluid collection drainage with a 16-[place] loop drainage catheter. PLAN: This tube should flushed with 20 mL of saline twice a day The patient should follow-up for drain evaluation in 7 days. Dictated by: Toy Quintana M.D. The radiology attending physician has personally reviewed this study, and had reviewed and/or edited this written report and agrees with it. Electronically signed by: French Leiva M.D. Eliz Marc MD IMG IR PROCEDURES Final Result * Aerobic and anaerobic culture and gram stain Abscess Abdominal (03/17/2019 1:53 PM CDT) Direct Specimen Exam Stain: Rare polymorphonuclear leukocytes seen. No organisms seen. [facility] Report Final Report: No growth [facility] Abscess (Abdominal) 03/17/2019 1:53 PM CDT 03/17/2019 2:38 PM CDT Narrative [facility] - 03/20/2019 10:22 AM CDT LEFT ADBDOMINAL Testing performed by [facility] ([phone]) Specimens submitted from normally sterile body sites will have all bacterial morphotypes identified. ??Specimens that contain grossly mixed luke and/or are from body sites that are not normally sterile will be examined for Staphylococcus aureus, Pseudomonas aeruginosa, beta-hemolytic strep, vancomycin-resistant Enterococcus, Bacteroides fragilis, Clostridium perfringens and fungus. ??If any of these are isolated, the organism will be reported. Current interpretive data was last revised on 2016. Eliz Marc MD LAB MICROBIOLOGY - GENERAL ORD ERABLES Final Result [facility] [address] [place] [address] * (ABNORMAL) Comprehensive metabolic panel (03/17/2019 6:25 AM CDT) Sodium 136 135 - 145 mmol/L [facility] Potassium, pl 3.5 3.3 - 4.9 mmol/L [facility] Chloride 101 97 - 110 mmol/L [facility] CO2 27 22 - 32 mmol/L [facility] Anion gap 8 2 - 15 mmol/L [facility] BUN 2(L) 8 - 25 mg/dL [facility] Creatinine 0.45(L) 0.60 - 1.10 mg/dL [facility] Glucose 94 70 - 199 mg/dL [facility] Comment: Interpretive Data Fasting glucose >/= [...] interpretive data was last revised 2017. Calcium 8.0(L) 8.5 - 10.3 mg/dL [facility] Bilirubin, total 4.3(H) 0.1 - 1.2 mg/dL [facility] Protein, pl 6.0(L) 6.5 - 8.5 g/dL [facility] Albumin 2.3(L) 3.5 - 5.0 g/dL [facility] Alk phos 167(H) 40 - 130 Units/L [facility] ALT 24 7 - 45 Units/L [facility] AST 72(H) 10 - 45 Units/L [facility] Blood specimen (specimen) 03/17/2019 6:25 AM CDT 03/17/2019 6:50 AM CDT us Chuckie Vega MD LAB BLOOD ORDERABLES Fin al Result [facility] [address] [place] [address] * (ABNORMAL) CBC without differential (03/17/2019 6:25 AM CDT) WBC 8.1 3.8 - 9.9 K/cumm [facility] Hgb 9.2(L) 11.9 - 15.5 g/dL [facility] Hct 28.8(L) 35.6 - 45.5 % [facility] Plt 259 150 - 400 K/cumm [facility] MPV 10.6 9.1 - 12.3 fL [facility] RBC 2.74(L) 3.90 - 5.20 M/cumm [facility] MCV 105.1(H) 81.3 - 96.4 fL [facility] MCH 33.6(H) 27.1 - 33.3 pg [facility] MCHC 31.9(L) 32.3 - 35.7 g/dL [facility] RDW CV 18.1(H) 11.1 - 14.9 % [facility] RDW SD 69.8(H) 35.7 - 48.1 fL [facility] NRBC abs 0.00 0.00 - 0.01 K/cumm [facility] Blood specimen (specimen) 03/17/2019 6:25 AM CDT 03/17/2019 6:49 AM CDT us Chuckie Vega MD LAB BLOOD ORDERABLES Fin al Result [facility] [address] [place] [address] * CT Abdomen Pelvis W Contrast (03/16/2019 10:29 AM CDT) Anatomical Region Laterality Modality Body N/A Computed Tomogra phy 03/16/2019 11:2 1 AM CDT Impressions 03/16/2019 11:45 AM CDT 1. ??Findings consistent with necrotic pancreatitis with interval increase in size of the peripancreatic fluid collections and no evidence of vascular complications except for occlusion of the splenic vein. 2.Nodular densities in hepatic segment 7, 8 and 2 with associated common bile duct smooth wall thickening is favored to represent cholangitis and is better evaluated with prior body MRI. ??No hepatic abscess. 3. ??Focal colitis at the splenic flecture with: Abuts the necrotic pancreatic collection. 4. ??Small volume ascites and diffuse anasarca. 5. Severe hepatic steatosis. Dictated by: Sharon Costello M.D. The radiology attending physician has personally reviewed this study, and had reviewed and/or edited this written report and agrees with it. Electronically signed by: Cecilia Cloud M.D. Narrative 03/16/2019 11:45 AM CDT EXAMINATION: ??CT abdomen and pelvis with intravenous contrast. HISTORY: ??38-year-old woman with ascites and pancreatitis in multiple fluid collections with concern for superinfection. TECHNIQUE: Computed tomographic images of the abdomen and pelvis were obtained after administration of 100 ??mL of Optiray 350 intravenous contrast per standard protocol. COMPARISON:comparison is made with prior examination from 03/09/2019 and MRI dated 03/14/2019. FINDINGS: ?? Liver is enlarged and demonstrates diffuse marked steatosis with associated multiple linear and nodular areas of high attenuation in hepatic segments 2, 7 and 8 better evaluated by MRI. ??There is also mild smooth thickening of the common bile duct. There is extensive phlegmonous peripancreatic collection which has increased in size compared to prior CT most consistent with peripancreatic necrotic collections. ??High density material within this collection likely represents necrotic material however potential blood products can have the same appearance. ??These collections displace the stomach anteriorly and tracks along the left pararenal fascia on the biopsy the descending colon. ??This collection now measures approximately 5 x 1 x 5.6 in transaxial dimension (image 92, series 2) and 9 cm on coronal reconstruction (image 96, series 4). This previously measured 3.7 x 4.1 x 7.3 cm on prior examination. Hepatic parenchyma is obscured by PA and pancreatic collections. This collection abuts the colon. ??There is associated colitis likely related to this collection at the splenic flecture. ??Reactive retroperitoneal and gastrohepatic lymph nodes are seen. ??Enhancing reactive lymph node is seen adjacent to the head of the pancreas seen at table position -362. Celiac, superior mesenteric, common hepatic, splenic, gastroduodenal arteries are patent without aneurysm. ??Hepatic and portal veins are patent. ??Superior mesenteric vein is patent. ??There is attenuation of the portal vein at the zoya splenic confluence. 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 Small to moderate size abdominal ascites. ??There is anasarca. Kidneys enhance symmetrically. ??Small right renal cyst. ??No hydronephrosis or hydroureter. ??Spleen is normal. ??Adrenal glands are normal. ??Uterus and adnexa are normal. ??No evidence of bowel obstruction. Bone windows does not demonstrate suspicious lytic or blastic osseous lesions. Procedure Note Cecilia Joya MD - 03/16/2019 EXAMINATION: CT abdomen and pelvis with intravenous contrast. HISTORY: 38-year-old woman with ascites and pancreatitis in multiple fluid collections with concern for superinfection. TECHNIQUE: Computed tomographic images of the abdomen and pelvis were obtained after administration of 100 mL of Optiray 350 intravenous contrast per standard protocol. COMPARISON:comparison is made with prior examination from 03/09/2019 and MRI dated 03/14/2019. FINDINGS: Liver is enlarged and demonstrates diffuse marked steatosis with associated multiple linear and nodular areas of high attenuation in hepatic segments 2, 7 and 8 better evaluated by MRI. There is also mild smooth thickening of the common bile duct. There is extensive phlegmonous peripancreatic collection which has increased in size compared to prior CT most consistent with peripancreatic necrotic collections. High density material within this collection likely represents necrotic material however potential blood products can have the same appearance. These collections displace the stomach anteriorly and tracks along the left pararenal fascia on the biopsy the descending colon. This collection now measures approximately 5 x 1 x 5.6 in transaxial dimension (image 92, series 2) and 9 cm on coronal reconstruction (image 96, series 4). This previously measured 3.7 x 4.1 x 7.3 cm on prior examination. Hepatic parenchyma is obscured by PA and pancreatic collections. This collection abuts the colon. There is associated colitis likely related to this collection at the splenic flecture. Reactive retroperitoneal and gastrohepatic lymph nodes are seen. Enhancing reactive lymph node is seen adjacent to the head of the pancreas seen at table position -362. Celiac, superior mesenteric, common hepatic, splenic, gastroduodenal arteries are patent without aneurysm. Hepatic and portal veins are patent. Superior mesenteric vein is patent. There is attenuation of the portal vein at the zoya splenic confluence. 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 Small to moderate size abdominal ascites. There is anasarca. Kidneys enhance symmetrically. Small right renal cyst. No hydronephrosis or hydroureter. Spleen is normal. Adrenal glands are normal. Uterus and adnexa are normal. No evidence of bowel obstruction. Bone windows does not demonstrate suspicious lytic or blastic osseous lesions. IMPRESSION: 1. Findings consistent with necrotic pancreatitis with interval increase in size of the peripancreatic fluid collections and no evidence of vascular complications except for occlusion of the splenic vein. 2.Nodular densities in hepatic segment 7, 8 and 2 with associated common bile duct smooth wall thickening is favored to represent cholangitis and is better evaluated with prior body MRI. No hepatic abscess. 3. Focal colitis at the splenic flecture with: Abuts the necrotic pancreatic collection. 4. Small volume ascites and diffuse anasarca. 5. Severe hepatic steatosis. Dictated by: Sharon Costello M.D. The radiology attending physician has personally reviewed this study, and had reviewed and/or edited this written report and agrees with it. Electronically signed by: Cecilia Cloud M.D. Eliz Marc MD IMG CT PROCEDURES Final Result * Blood culture Blood Hand, right (03/16/2019 9:22 AM CDT) Report Final Report: No growth [facility] Blood specimen (specimen) (Hand, right) 03/16/2019 9:22 AM CDT 03/16/2019 9:48 AM CDT Narrative [facility] - 03/21/2019 12:03 PM CDT From a different site than #1. 1. [...] performance characteristics have been verified by the [facility]. 5. For questions about this culture, contact the Microbiology Laboratory at [phone]. Interpretive data was last revised on 2018. Eliz Marc MD LAB MICROBIOLOGY - GENERAL ORD ERABLES Final Result [facility] [address] [place] [address] * Blood culture Blood Arm, right (03/16/2019 9:11 AM CDT) Report Final Report: No growth [facility] Blood specimen (specimen) (Arm, right) 03/16/2019 9:11 AM CDT 03/16/2019 9:48 AM CDT Narrative [facility] - 03/21/2019 12:03 PM CDT 1. Blood cultures are incubated for 5 [...] performance characteristics have been verified by the [facility]. 5. For questions about this culture, contact the Microbiology Laboratory at [phone]. Interpretive data was last revised on 2018. Eliz Marc MD LAB MICROBIOLOGY - GENERAL ORD ERABLES Final Result Performing Organization Address [facility] Co de Phone Number [facility] [address] [place] [address] * (ABNORMAL) Urinalysis reflex to microscopic and culture Urine (03/16/2019 8:23 AM CDT) Color, ur Anneliese Yellow [facility] Clarity, ur Cloudy(A) Clear [facility] Specific gravity, ur 1.012 1.010 - 1.025 [facility] pH, urine 6 [facility] Protein, ur ql Negative Negative [facility] Glucose, ur ql Negative Negative [facility] Ketones, ur Trace Negative [facility] Bilirubin, ur 1+(A) Negative [facility] Blood, ur Negative Negative [facility] Urobilinogen, ur 4.0(A) <2.0 mg/dL [facility] Nitrite, ur Negative Negative [facility] Leukocyte esterase, ur Negative Negative [facility] Urine 03/16/2019 8:23 AM CDT 03/16/2019 8:32 AM CDT Narrative [facility] - 03/16/2019 8:39 AM CDT ?? Urine pH is affected by diet, medications, systemic acid-base disturbances, and renal tubular function. ??pH may affect urinary stone formation. ??For example, urine pH below 6.0 may help reduce the tendency for calcium phosphate stones and pH greater than 6.0 may reduce the tendency for uric acid stone formation. Source: [facility]. Last revised 06-24-2017 Eliz Marc MD LAB MICROBIOLOGY - GENERAL ORD ERABLES Final Result Performing Organization Address [facility] Co de Phone Number [facility] [address] [place] [address] * XR Chest 1 View (03/16/2019 7:55 AM CDT) Anatomical Region Laterality Modality Body, Chest N/A Computed Radiogr aphy 03/16/2019 11:1 5 AM CDT Impressions 03/16/2019 11:42 AM CDT Comparison made to 03/09/2019 CT. Linear atelectasis at the left base is present. There is no pneumothorax, pulmonary edema, pneumonia, or pleural effusion. Mediastinal contours normal. Dictated by: Indira Lucas M.D. The radiology attending physician has personally reviewed this study, and had reviewed and/or edited this written report and agrees with it. Electronically signed by: Héctor Mayfield M.D. Narrative 03/16/2019 11:42 AM CDT EXAMINATION: 1 view chest radiograph Procedure Note Héctor Mayfield MD - 03/16/2019 EXAMINATION: 1 view chest radiograph IMPRESSION: Comparison made to 03/09/2019 CT. Linear atelectasis at the left base is present. There is no pneumothorax, pulmonary edema, pneumonia, or pleural effusion. Mediastinal contours normal. Dictated by: Indira Lucas M.D. The radiology attending physician has personally reviewed this study, and had reviewed and/or edited this written report and agrees with it. Electronically signed by: Héctor Mayfield M.D. Eliz Marc MD IMG XR PROCEDURES Final Result * (ABNORMAL) Comprehensive metabolic panel (03/16/2019 6:10 AM CDT) Sodium 134(L) 135 - 145 mmol/L [facility] Potassium, pl 3.8 3.3 - 4.9 mmol/L [facility] Chloride 100 97 - 110 mmol/L [facility] CO2 26 22 - 32 mmol/L [facility] Anion gap 8 2 - 15 mmol/L [facility] BUN 3(L) 8 - 25 mg/dL [facility] Creatinine 0.44(L) 0.60 - 1.10 mg/dL [facility] Glucose 110 70 - 199 mg/dL [facility] Comment: Interpretive Data Fasting glucose >/= [...] interpretive data was last revised 2017. Calcium 8.1(L) 8.5 - 10.3 mg/dL [facility] Bilirubin, total 3.8(H) 0.1 - 1.2 mg/dL [facility] Protein, pl 5.6(L) 6.5 - 8.5 g/dL [facility] Albumin 2.1(L) 3.5 - 5.0 g/dL [facility] Alk phos 173(H) 40 - 130 Units/L [facility] ALT 25 7 - 45 Units/L [facility] AST 77(H) 10 - 45 Units/L [facility] Blood specimen (specimen) 03/16/2019 6:10 AM CDT 03/16/2019 6:28 AM CDT us Chuckie Vega MD LAB BLOOD ORDERABLES Fin al Result [facility] [address] [place] [address] * (ABNORMAL) CBC without differential (03/16/2019 6:10 AM CDT) Pathologist [facility] WBC 8.0 3.8 - 9.9 K/cumm [facility] Hgb 9.0(L) 11.9 - 15.5 g/dL [facility] Hct 27.0(L) 35.6 - 45.5 % [facility] Plt 221 150 - 400 K/cumm [facility] MPV 10.2 9.1 - 12.3 fL [facility] RBC 2.59(L) 3.90 - 5.20 M/cumm [facility] MCV 104.2(H) 81.3 - 96.4 fL [facility] MCH 34.7(H) 27.1 - 33.3 pg [facility] MCHC 33.3 32.3 - 35.7 g/dL [facility] RDW CV 18.3(H) 11.1 - 14.9 % [facility] RDW SD 69.8(H) 35.7 - 48.1 fL [facility] NRBC abs 0.00 0.00 - 0.01 K/cumm [facility] Blood specimen (specimen) 03/16/2019 6:10 AM CDT 03/16/2019 6:28 AM CDT us Chuckie Vega MD LAB BLOOD ORDERABLES Fin al Result Performing Organization Address [facility] Co de Phone Number [facility] [address] [place] [address] * CT Body Outside Reference (03/15/2019 6:12 AM CDT) Impressions [facility] - 03/15/2019 6:12 AM CDT These images are for Reference purposes only and have not been reviewed by [facility]. ??There will be no report generated by a [facility] Radiologist. Narrative [facility] - 03/15/2019 6:12 AM CDT EXAMINATION: ??Images For Reference Purposes Only Result [facility] Apple Trejo MD IMG CT PROCEDURE S Final Result Performing Organization Address [facility] Co de Phone Number [email or web address] * MR Body Outside Consult (03/15/2019 5:32 AM CDT) Anatomical Region Laterality Modality Body N/A Magnetic Resonan ce 03/15/2019 11:3 2 AM CDT Impressions 03/15/2019 12:10 PM CDT 1. ??Interval increase in size of multiple-appearing acute peripancreatic fluid collections superimposed on unchanged chronic-appearing collections, in keeping with acute on chronic necrotizing pancreatitis. ??No evidence of vascular complication. 2. ??Nodular biliary enhancement in the segments 7 and 8, that given additional findings may represent cholangitis. No drainable fluid collections identified. Recommend attention on follow-up imaging. 3. ??Severe hepatic steatosis 4. ??Small volume ascites and diffuse anasarca. The findings, conclusions and recommendations within this report do not replace the initial findings, conclusions ??and recommendations made at the facility where the study was performed based upon the imaging and clinical condition at that time. ??Comparison with the prior report and clinical history is necessary. ??The provided images may or may not represent the [place] source data set and thus may contain changes that may lower the accuracy of this second-opinion interpretation. Dictated by: Ismael Basilio M.D. The radiology attending physician has personally reviewed this study, and had reviewed and/or edited this written report and agrees with it. Electronically signed by: Bryon Ramirez M.D. Narrative 03/15/2019 12:10 PM CDT EXAMINATION: RADIOLOGY CONSULTATION ON OUTSIDE IMAGING STUDY STUDY INITIALLY PERFORMED: 03/14/2019 at [facility]. TYPE OF STUDY: Multiple MRI images of the abdomen with and without intravenous contrast are provided at the time of this interpretation. CONTRAST ROUTE: Contrast was administered via the intravenous route. The protocol was adequate to address the clinical question. The outside final report was not available at the time of this second opinion interpretation. TYPE OF CONSULTATION: Consult on outside imaging study with images submitted through [facility] DATE OF CONSULTATION: 03/15/2019 9:36 AM HISTORY: Alcoholic necrotizing pancreatitis COMPARISON: 03/09/2019 FINDINGS: Liver: There is hepatomegaly. ??Severe steatosis. No iron deposition. - Bile ducts: No biliary dilatation. ??In segments 8 and 7 there is nodular biliary enhancement for reference series 1803 image 31. ??No fluid collection. - Focal liver lesions: None - Vasculature: Conventional hepatic arterial anatomy. ??Portal and hepatic veins are patent. ??No splenic artery pseudoaneurysm. ??No mesenteric or splenic vein thrombosis. Gallbladder: Edematous. Pancreas: There are multiple pancreatic and peripancreatic fluid collections. ??The largest has a smooth wall and arises from the pancreatic tail measuring 4 x 6.2 cm on 5 minute postcontrast image 37. ??It abuts the gastric fundus. ??There are other enhancing collections with thickened wall tracking along the ventral pancreas towards the splenic flexure that have increased in size. ??For reference series 1801 image 63, the collection has increased from 3.9 x 3.3 cm to 5.2 x 4.5 cm. ??Intrinsic T1 hyperintensity suggests hemorrhage. ??The component of the collection arising from the ventral part of the distal pancreatic body has also increased in size from 5.7 x 1.6 cm to 6.3 x 3.2 cm on series 1801 image 52. ??There is extensive pancreatic and peripancreatic inflammation Spleen: Normal Adrenals: Normal Kidneys: Normal. ??No hydronephrosis. ??Small right kidney cyst. Other Findings: Small volume ascites. ??Anasarca. ??Small pleural effusions. Procedure Note Bryon Ramirez MD PhD - 03/15/2019 EXAMINATION: RADIOLOGY CONSULTATION ON OUTSIDE IMAGING STUDY STUDY INITIALLY PERFORMED: 03/14/2019 at [facility]. TYPE OF STUDY: Multiple MRI images of the abdomen with and without intravenous contrast are provided at the time of this interpretation. CONTRAST ROUTE: Contrast was administered via the intravenous route. The protocol was adequate to address the clinical question. The outside final report was not available at the time of this second opinion interpretation. TYPE OF CONSULTATION: Consult on outside imaging study with images submitted through [facility] DATE OF CONSULTATION: 03/15/2019 9:36 AM HISTORY: Alcoholic necrotizing pancreatitis COMPARISON: 03/09/2019 FINDINGS: Liver: There is hepatomegaly. Severe steatosis. No iron deposition. - Bile ducts: No biliary dilatation. In segments 8 and 7 there is nodular biliary enhancement for reference series 1803 image 31. No fluid collection. - Focal liver lesions: None - Vasculature: Conventional hepatic arterial anatomy. Portal and hepatic veins are patent. No splenic artery pseudoaneurysm. No mesenteric or splenic vein thrombosis. Gallbladder: Edematous. Pancreas: There are multiple pancreatic and peripancreatic fluid collections. The largest has a smooth wall and arises from the pancreatic tail measuring 4 x 6.2 cm on 5 minute postcontrast image 37. It abuts the gastric fundus. There are other enhancing collections with thickened wall tracking along the ventral pancreas towards the splenic flexure that have increased in size. For reference series 1801 image 63, the collection has increased from 3.9 x 3.3 cm to 5.2 x 4.5 cm. Intrinsic T1 hyperintensity suggests hemorrhage. The component of the collection arising from the ventral part of the distal pancreatic body has also increased in size from 5.7 x 1.6 cm to 6.3 x 3.2 cm on series 1801 image 52. There is extensive pancreatic and peripancreatic inflammation Spleen: Normal Adrenals: Normal Kidneys: Normal. No hydronephrosis. Small right kidney cyst. Other Findings: Small volume ascites. Anasarca. Small pleural effusions. IMPRESSION: 1. Interval increase in size of multiple-appearing acute peripancreatic fluid collections superimposed on unchanged chronic-appearing collections, in keeping with acute on chronic necrotizing pancreatitis. No evidence of vascular complication. 2. Nodular biliary enhancement in the segments 7 and 8, that given additional findings may represent cholangitis. No drainable fluid collections identified. Recommend attention on follow-up imaging. 3. Severe hepatic steatosis 4. Small volume ascites and diffuse anasarca. The findings, conclusions and recommendations within this report do not replace the initial findings, conclusions and recommendations made at the facility where the study was performed based upon the imaging and clinical condition at that time. Comparison with the prior report and clinical history is necessary. The provided images may or may not represent the [place] source data set and thus may contain changes that may lower the accuracy of this second-opinion interpretation. Dictated by: Ismael Basilio M.D. The radiology attending physician has personally reviewed this study, and had reviewed and/or edited this written report and agrees with it. Electronically signed by: Bryon Ramirez M.D. Apple Trejo MD IM MRI PROCEDUR ES Final Result * (ABNORMAL) Bilirubin, direct (03/15/2019 1:47 AM CDT) [facility] Bilirubin, direct 2.5(H) 0.1 - 0.3 mg/dL [facility] Blood specimen (specimen) 03/15/2019 1:47 AM CDT 03/15/2019 2:04 AM CDT Chuckie Vega MD LAB BLOOD ORDERABLES Fin al Result [facility] [address] [place] [address] * Hemoglobin A1c (03/15/2019 1:47 AM CDT) Pathologist [facility] Hgb A1C 5.3 4.0 - 5.6 % [facility] Estimated Average Glucose 105 mg/dL [facility] Comment: The ADA recommends reporting an estimated Average Glucose (eAG) with all Hemoglobin A1c results using the equation derived from a study of 507 normal and diabetic adults. ??Minority populations were underrepresented and children were not included. ?? (Diabetes Care 31:1542-5364, 2007). ??The eAG is not equivalent to a fasting glucose. Blood specimen (specimen) 03/15/2019 1:47 AM CDT 03/15/2019 1:53 AM CDT us Chuckie Vega MD LAB BLOOD ORDERABLES Fin al Result Performing Organization Address City/State/[facility] Co de Phone Number [facility] [address] [place] [address] * (ABNORMAL) CBC without differential (03/15/2019 1:47 AM CDT) WBC 8.7 3.8 - 9.9 K/cumm [facility] Hgb 9.8(L) 11.9 - 15.5 g/dL [facility] Hct 30.0(L) 35.6 - 45.5 % [facility] Plt 226 150 - 400 K/cumm [facility] MPV 9.9 9.1 - 12.3 fL [facility] RBC 2.88(L) 3.90 - 5.20 M/cumm [facility] MCV 104.2(H) 81.3 - 96.4 fL [facility] MCH 34.0(H) 27.1 - 33.3 pg [facility] MCHC 32.7 32.3 - 35.7 g/dL [facility] RDW CV 18.6(H) 11.1 - 14.9 % [facility] RDW SD 71.4(H) 35.7 - 48.1 fL [facility] NRBC abs 0.02(H) 0.00 - 0.01 K/cumm [facility] Blood specimen (specimen) 03/15/2019 1:47 AM CDT 03/15/2019 2:04 AM CDT Chuckie Vega MD LAB BLOOD ORDERABLES Fin al Result Performing Organization Address City/[facility]/ZIP Co de Phone Number [facility] [address] [place] [address] * (ABNORMAL) Lipase (03/15/2019 1:47 AM CDT) Pathologist [facility] Lipase 227(H) 10 - 99 Units/L [facility] Blood specimen (specimen) 03/15/2019 1:47 AM CDT 03/15/2019 2:04 AM CDT Chuckie Vega MD LAB BLOOD ORDERABLES Fin al Result Performing Organization Address [facility] de Phone Number [address] [address] * (ABNORMAL) Comprehensive metabolic panel (03/15/2019 1:47 AM CDT) [facility] Sodium 132(L) 135 - 145 mmol/L [facility] Potassium, pl 4.6 3.3 - 4.9 mmol/L [facility] Comment:Hemolyzed; (++); pot assium value may be falsely elevated by as much as 0.3 - 0.5 mmol/L. Suggest redraw and reanalysis. Chloride 97 97 - 110 mmol/L [facility] CO2 23 22 - 32 mmol/L [facility] Anion gap 12 2 - 15 mmol/L [facility] BUN 6(L) 8 - 25 mg/dL [facility] Creatinine 0.47(L) 0.60 - 1.10 mg/dL [facility] Glucose 95 70 - 199 mg/dL [facility] Comment: Interpretive Data Fasting glucose >/= [...] interpretive data was last revised 2017. Calcium 8.2(L) 8.5 - 10.3 mg/dL [facility] Bilirubin, total 3.7(H) 0.1 - 1.2 mg/dL [facility] Protein, pl 5.9(L) 6.5 - 8.5 g/dL [facility] Albumin 2.3(L) 3.5 - 5.0 g/dL [facility] Alk phos 186(H) 40 - 130 Units/L [facility] ALT 29 7 - 45 Units/L [facility] AST 104(H) 10 - 45 Units/L [facility] Comment:Hemolyzed; result ma y be falsely elevated. Blood specimen (specimen) 03/15/2019 1:47 AM CDT 03/15/2019 2:04 AM CDT Chuckie Vega MD LAB BLOOD ORDERABLES Fin al Result [facility] [address] [place] [address] documented in this encounter Visit Diagnoses Diagnosis Pancreatitis, necrotizing- Primary Acute pancreatitis Diagnosis unknown Pancreatitis, necrotizing Acute pancreatitis ETOH abuse Nondependent alcohol abuse, unspecified drinking behavior ETOH abuse Nondependent alcohol abuse, unspecified drinking behavior Hyperglycemia Other abnormal glucose History of DVT (deep vein thrombosis) Fever Fever, unspecified Pancreatitis, necrotizing Acute pancreatitis documented in this encounter Administered Medications Inactive Administered Medications - up to 3 most recent administrations Medication Order MAR Action Action Date Dose Rate Site acetaminophen (TYLENOL) tablet 650 mg 650 mg, oral, Every 4 hours PRN, 1st line for pain, fever, fever greater than 38.3 C, Starting on Wed03/15/19 at 0046, Indications: Fever, PainIndications:Fever,Pain Given 03/17/2019 4:34 PM CDT 650 mg Given 03/17/2019 5:08 AM CDT 650 mg Given 03/16/2019 9:47 PM CDT 650 mg acetaminophen (TYLENOL) tablet 650 mg 650 mg, oral, 4 times daily PRN, 1st line for pain, fever, fever greater than 38.3 C, Starting on Wed03/17/19 at 1800, Indications: Fever, PainIndications:Fever,Pain Given 03/21/2019 8:35 AM CDT 650 mg Given 03/20/2019 8:08 PM CDT 650 mg Given 03/20/2019 4:16 PM CDT 650 mg cefepime (MAXIPIME) 1,000 mg/10 mL in sterile water (premix) 1,000 mg 1,000 mg, intravenous, at 20 mL/hr, Administer over 30 Minutes, Every 8 hours scheduled, First dose on Shanda 03/16/19 at 0745, Indications: Abdominal/Pelvic InfectionIndications:Abdo raghav/Pelvic Infection New Bag 03/16/2019 11:06 AM CDT 1,000 mg 20 mL/hr ciprofloxacin (CIPRO) tablet 500 mg 500 mg, oral, 2 times daily (for quinolones,etc), First dose on Wed03/21/19 at 1015, Administer ciprofloxacin at least 2 hours before or 6 hours after antacids (containing aluminum or magnesium), calcium or calcium containing foods such as milk or yogurt, MVI (containing iron or zinc), iron, zinc, sucralfate or buffered meds such as didanosine., Indications: Abdominal/Pelvic InfectionIndications:Abdo raghav/Pelvic Infection Given 03/21/2019 11:09 AM CDT 500 mg enoxaparin (LOVENOX) syringe 40 mg 40 mg, subcutaneous, Daily (for enoxaparin), First dose on Wed03/15/19 at 2100, Indications: Deep Vein Thrombosis PreventionIndications:Sara p Vein Thrombosis Prevention Given 03/20/2019 8:59 PM CDT 40 mg Right Lower Abdomen Given 03/19/2019 8:52 PM CDT 40 mg Le ft Lower Abdomen Given 03/18/2019 8:28 PM CDT 40 mg Le ft Lower Abdomen fentaNYL (SUBLIMAZE) preservative free injection intravenous, Code/trauma/sedation medication, Starting on Wed03/17/19 at 1338 Given 03/17/2019 1:38 PM CDT 50 mcg folic acid (FOLVITE) tablet 1 mg 1 mg, oral, Daily, First dose on Wed03/15/19 at 0900 Given 03/21/2019 8:58 AM CDT 1 mg Given 03/20/2019 9:22 AM CDT 1 mg Given 03/19/2019 8:24 AM CDT 1 mg iothalamate meglumine (CONRAY) 60 % injection Code/trauma/sedation medication, Starting on Wed03/17/19 at 1353 Given 03/17/2019 1:53 PM CDT 35 mL ioversol (OPTIRAY 350) syringe syringe 100 mL 100 mL, intravenous, Once in imaging, contrast, Starting on Shanda 03/16/19 at 1027, For 1 dose Given 03/16/2019 10:30 AM CDT 100 mL levoFLOXacin (LEVAQUIN) tablet 750 mg 750 mg, oral, Daily (early AM), First dose on 03/19/19 at 0945, Give 2 hrs before or 2 hrs after MVI, antacids, or other products containing sucralfate, magnesium, aluminum, iron, or zinc. May be taken without regard to meals., Indications: Abdominal/Pelvic Infection, On hold since Wed03/20/2019 at 1902 until manually unheldIndications:Abdominal/Pelvic Infection Given 03/20/2019 4:49 AM CDT 750 mg Given 03/19/2019 9:35 AM CDT 750 mg lidocaine PF (XYLOCAINE) 10 mg/mL (1 %) preservative free injection Code/trauma/sedation medication, Starting on Wed03/17/19 at 1353, Intra-Procedure (IR), Indications: Administration of Local AnesthesiaIndications:Administrat ion of Local Anesthesia Given 03/17/2019 1:53 PM CDT 3 mL Abdominal Tissue Given 03/17/2019 1:40 PM CDT 3 mL Ab dominal Tissue LORazepam (ATIVAN) tablet 0.5 mg 0.5 mg, oral, Once, On Wed03/17/19 at 1300, For 1 dose Given 03/17/2019 12:34 PM CDT 0.5 mg meropenem (MERREM) 1,000 mg/50 mL in sodium chloride 0.9% (premix) 1,000 mg 1,000 mg, intravenous, Administer over 30 Minutes, Every 8 hours scheduled, First dose on Shanda 03/16/19 at 1730, premix bag, Indications: Abdominal/Pelvic Infection, On hold since Wed03/19/2019 at 0837 until manually unheldIndications:Abdominal/Pelvic Infection New Bag 03/19/2019 3:10 AM CDT 1,000 mg New Bag 03/18/2019 6:02 PM CDT 1,000 mg New Bag 03/18/2019 10:30 AM CDT 1,000 mg metroNIDAZOLE (FLAGYL) 500 mg/100 mL in sodium chloride (premix) 500 mg 500 mg, intravenous, at 200 mL/hr, Administer over 30 Minutes, Every 8 hours scheduled, First dose on Shanda 03/16/19 at 0745, Room temperature only, Indications: Abdominal/Pelvic InfectionIndications:Abdominal/Pelv ic Infection New Bag 03/16/2019 4:17 PM CDT 500 mg 200 mL/hr New Bag 03/16/2019 8:32 AM CDT 500 mg 200 mL/hr metroNIDAZOLE (FLAGYL) tablet 500 mg 500 mg, oral, Every 8 hours, First dose on 03/19/19 at 0945, Indications: Abdominal/Pelvic InfectionIndications:Abdominal/Pelvic Infection Given 03/21/2019 8:58 AM CDT 500 mg Given 03/21/2019 2:18 AM CDT 500 mg Given 03/20/2019 4:16 PM CDT 500 mg midazolam (VERSED) preservative free injection intravenous, Administer over 2 Minutes, Code/trauma/sedation medication, Starting on Wed03/17/19 at 1338, Intra-Procedure (IR) Given 03/17/2019 1:38 PM CDT 1 mg nicotine (NICODERM CQ) 7 mg patch 24 hour 1 patch 1 patch, transdermal, Administer over 24 Hours, Daily, First dose on Wed03/15/19 at 0915 Medication Applied 03/17/2019 8:32 AM CDT 1 patch Right Arm Medication Applied 03/16/2019 8:29 AM CDT 1 patch Right Arm Medication Applied 03/15/2019 8:51 AM CDT 1 patch Left Arm ondansetron (ZOFRAN) injection 4 mg 4 mg, intravenous, Administer over 2 Minutes, Every 6 hours PRN, nausea, vomiting, if not tolerating PO, Starting on Wed03/15/19 at 0046, Indications: Nausea and VomitingIndications:Nausea and Vomiting Given 03/16/2019 7:18 AM CDT 4 mg ondansetron (ZOFRAN) injection Administer over 2 Minutes, Code/trauma/sedation medication, Starting on Wed03/17/19 at 1339 Given 03/17/2019 1:39 PM CDT 4 mg oxyCODONE (ROXICODONE) tablet 5 mg 5 mg, oral, 4 times daily PRN, 2nd line for pain, Starting on Wed03/15/19 at 0058, Indications: PainIndications:Pain Given 03/16/2019 12:08 AM CDT 5 mg Given 03/15/2019 5:09 PM CDT 5 mg Given 03/15/2019 12:51 PM CDT 5 mg oxyCODONE (ROXICODONE) tablet 5 mg 5 mg, oral, Every 6 hours PRN, 2nd line for pain, Starting on Wed03/16/19 at 0615, Indications: PainIndications:Pain Given 03/20/2019 4:49 AM CDT 5 mg Given 03/19/2019 10:01 PM CDT 5 mg Given 03/19/2019 3:52 PM CDT 5 mg oxyCODONE (ROXICODONE) tablet 5 mg 5 mg, oral, Once, On Wed03/17/19 at 1830, For 1 dose, Indications: PainIndications:Pain Given 03/17/2019 6:33 PM CDT 5 mg oxyCODONE (ROXICODONE) tablet 5 mg 5 mg, oral, Every 8 hours, First dose (after last modification) on 03/20/19 at 1300, Indications: PainIndications:Pain Given 03/21/2019 5:09 AM CDT 5 mg Given 03/20/2019 8:59 PM CDT 5 mg Given 03/20/2019 12:58 PM CDT 5 mg polyethylene glycol (MIRALAX) packet 17 g 17 g, oral, Daily, First dose on 03/18/19 at 0900, Indications: constipationIndications:constipation Given 03/21/2019 8:58 AM CDT 17 g Given 03/20/2019 9:22 AM CDT 17 g Given 03/19/2019 8:24 AM CDT 17 g potassium chloride ER (KLOR-CON) extended release tablet 40 mEq 40 mEq, oral, Every 4 hours, First dose on 03/19/19 at 0115, For 2 doses, Total dose = 80 mEq Do not crush, chew, cut, dissolve, open or otherwise manipulate tablet/capsule. Given 03/19/2019 8:24 AM CDT 40 mEq Given 03/19/2019 3:10 AM CDT 40 mEq sodium chloride 0.9% flush 0.5-20 mL 0.5-20 mL, intra-catheter, Every 8 hours scheduled, First dose on Wed03/15/19 at 0130, Flush volume based on line type and size. Given 03/20/2019 8:59 PM CDT 10 mL Given 03/20/2019 4:51 AM CDT 10 mL Given 03/18/2019 8:29 PM CDT 10 mL sodium chloride 0.9% flush 0.5-20 mL 0.5-20 mL, intra-catheter, Every 8 hours scheduled, First dose on Wed03/17/19 at 1400, Pre-Procedure (IR), Flush volume based on line type and size. Given 03/21/2019 5:09 AM CDT 10 mL Given 03/20/2019 4:50 AM CDT 10 mL Given 03/19/2019 8:52 PM CDT 10 mL sodium chloride 0.9% flush 0.5-20 mL 0.5-20 mL, intra-catheter, As needed, line care, Starting on Wed03/17/19 at 1252, Pre-Procedure (IR), Flush volume based on line type and size. Flush before and after each use. sodium chloride 0.9% flush 20 mL 20 mL, intra-catheter, Every 12 hours, First dose on Wed03/17/19 at 1715, Please flush 16-[place] loop drainage catheter with 20mL saline 2x daily. Thanks! Given 03/21/2019 5:10 AM CDT 20 mL Given 03/20/2019 4:19 PM CDT 20 mL Given 03/20/2019 4:51 AM CDT 20 mL sodium chloride 0.9% infusion 100 mL/hr, intravenous, Continuous, Starting on Wed03/15/19 at 0130 New Bag 03/17/2019 5:08 AM CDT 100 mL/hr 100 mL/hr New Bag 03/16/2019 6:34 PM CDT 100 mL/hr 100 mL/hr New Bag 03/16/2019 2:49 AM CDT 100 mL/hr 100 mL/hr sodium chloride 0.9% infusion 30 mL/hr, intravenous, Continuous, Starting on Wed03/17/19 at 1330, Pre-Procedure (IR), Please discontinue saline infusion at the end of the IR procedure New Bag 03/17/2019 4:05 PM CDT 30 mL/hr 30 mL/h r thiamine (VITAMIN B-1) tablet 100 mg 100 mg, oral, Daily, First dose on Wed03/15/19 at 0900 Given 03/21/2019 8:58 AM CDT 100 mg Given 03/20/2019 9:22 AM CDT 100 mg Given 03/19/2019 8:24 AM CDT 100 mg documented in this encounter Active and Recently Administered Medications Times are shown in CDT. Scheduled Medication Order 03/19/2019 03/20/2019 03/21/2019 ciprofloxacin (CIPRO) tablet 500 mg 500 mg, oral, 2 times daily (for quinolones,etc), First dose on Wed03/21/19 at 1015, Administer ciprofloxacin at least 2 hours before or 6 hours after antacids (containing aluminum or magnesium), calcium or calcium containing foods such as milk or yogurt, MVI (containing iron or zinc), iron, zinc, sucralfate or buffered meds such as didanosine., Indications: Abdominal/Pelvic Infection 1109 (Given - Provider: Argenis Torrez RN) enoxaparin (LOVENOX) syringe 40 mg 40 mg, subcutaneous, Daily (for enoxaparin), First dose on Wed03/15/19 at 2100, Indications: Deep Vein Thrombosis Prevention 2051 (Given - Provider: Xochitl Abrams RN) 2058 (Given - Provider: Carina Cardenas RN) folic acid (FOLVITE) tablet 1 mg 1 mg, oral, Daily, First dose on Wed03/15/19 at 0900 0824 (Given - Provider: Elisha Webster RN) 0922 (Given - Provider: Argenis Torrez RN) 0858 (Given - Provider: Argenis Torrez, SINA) levoFLOXacin (LEVAQUIN) tablet 750 mg (CANCELED) 750 mg, oral, Daily (early AM), First dose on Wed03/19/19 at 0945, Give 2 hrs before or 2 hrs after MVI, antacids, or other products containing sucralfate, magnesium, aluminum, iron, or zinc. May be taken without regard to meals., Indications: Abdominal/Pelvic Infection, On hold since Wed03/20/2019 at 1902 until manually unheld 0935 (Given - Provider: Elisha Webster RN) 0449 (Given - Provider: Xochitl Abrams, SINA)1902 (Held by Provider - Provider: Trish Caballero MD - Reason: Change in Patient Status - Comment: QTc 514) 0600 (Dose Auto Held - Provider: Trish Caballero MD)0937 (MAR Unhold - Provider: Trish Caballero MD) meropenem (MERREM) 1,000 mg/50 mL in sodium chloride 0.9% (premix) 1,000 mg (CANCELED) 1,000 mg, intravenous, Administer over 30 Minutes, Every 8 hours scheduled, First dose on Shanda 03/16/19 at 1730, premix bag, Indications: Abdominal/Pelvic Infection, On hold since [place] 03/19/2019 at 0837 until manually unheld 0310 (New Bag - Provider: Xochitl Abrams RN)0345 (Stopped - Provider: Xochitl Abrams RN)0837 (Held by Provider - Provider: Trish Caballero MD - Reason: Change in Patient Status - Comment: Will change to PO regimen)0909 (MAR Unhold - Provider: Trish Caballero MD) metroNIDAZOLE (FLAGYL) tablet 500 mg 500 mg, oral, Every 8 hours, First dose on 03/19/19 at 0945, Indications: Abdominal/Pelvic Infection 0935 (Given - Provider: Elisha Webster RN)1747 (Given - Provider: Elisha Webster RN) 0117 (Given - Provider: Xochitl Abrams, SINA)0922 (Given - Provider: Argenis Torrez, SINA)1616 (Given - Provider: Lorena Monk RN) 0218 (Given - Provider: Carina Cardenas RN)0858 (Given - Provider: Argenis Torrez, SINA) nicotine (NICODERM CQ) 7 mg patch 24 hour 1 patch 1 patch, transdermal, Administer over 24 Hours, Daily, First dose on Wed03/15/19 at 0915 0925 (Not Given - Provider: Elisha Webster RN - Reason: Patient/family refused) 0929 (Not Given - Provider: Argenis Torrez RN - Reason: Patient/family refused) 0943 (Not Given - Provider: Argenis oTrrez RN - Reason: Patient/family refused) oxyCODONE (ROXICODONE) tablet 5 mg 5 mg, oral, Every 8 hours, First dose (after last modification) on Wed03/20/19 at 1300, Indications: Pain 1258 (Given - Provider: Argenis Torrez RN)2059 (Given - Provider: Carina Cardenas, SINA) 0509 (Given - Provider: Carina Cardenas RN) polyethylene glycol (MIRALAX) packet 17 g 17 g, oral, Daily, First dose on Wed03/18/19 at 0900, Indications: constipation 0824 (Given - Provider: Elisha Webster RN) 0922 (Given - Provider: Argenis Torrez RN) 0858 (Given - Provider: Argenis Torrez RN) potassium chloride ER (KLOR-CON) extended release tablet 40 mEq (COMPLETED) 40 mEq, oral, Every 4 hours, First dose on Wed03/19/19 at 0115, For 2 doses, Total dose = 80 mEq Do not crush, chew, cut, dissolve, open or otherwise manipulate tablet/capsule. 0310 (Given - Provider: Xochitl Abrams RN)0824 (Given - Provider: Elisha Webster RN) sodium chloride 0.9% flush 0.5-20 mL 0.5-20 mL, intra-catheter, Every 8 hours scheduled, First dose on Wed03/15/19 at 0130, Flush volume based on line type and size. 0617 (Not Given - Provider: Xochitl Abrams RN - Reason: Other - Comment: duplicate)1406 (Not Given - Provider: Elisha Webster RN - Reason: Other - Comment: duplicate order)2051 (Not Given - Provider: Xochitl Abrams RN - Reason: Other) 0451 (Given - Provider: Xochitl Abrams RN)191 (Canceled Entry - Provider: Carina Cardenas RN)2058 (Given - Provider: Carina Cardenas RN) 0510 (Not Given - Provider: Carina Cardenas RN - Reason: Order parameters not met) sodium chloride 0.9% flush 0.5-20 mL 0.5-20 mL, intra-catheter, Every 8 hours scheduled, First dose on Wed03/17/19 at 1400, Pre-Procedure (IR), Flush volume based on line type and size. 0617 (Given - Provider: Xochitl Abrams RN)1406 (Given - Provider: Elisha Webster, SINA)205 (Given - Provider: Xochitl Abrams RN) 0450 (Given - Provider: Xochitl Abrams RN)1911 (Canceled Entry - Provider: Carina Cardenas RN)2057 (Not Given - Provider: Carina Cardenas RN - Reason: Order parameters not met) 0509 (Given - Provider: Carina Cardenas RN) sodium chloride 0.9% flush 20 mL 20 mL, intra-catheter, Every 12 hours, First dose on Wed03/17/19 at 1715, Please flush 16-[place] loop drainage catheter with 20mL saline 2x daily. Thanks! 0617 (Given - Provider: Xochitl Abrams RN)1715 (Given - Provider: Elisha Webster RN) 0451 (Given - Provider: Xochitl Abrams RN)1619 (Given - Provider: Lorena Monk RN) 0510 (Given - Provider: Carina Cardenas RN) thiamine (VITAMIN B-1) tablet 100 mg 100 mg, oral, Daily, First dose on Wed03/15/19 at 0900 0824 (Given - Provider: Elisha Webster RN) 0922 (Given - Provider: Argensi Torrez, SINA) 0858 (Given - Provider: Argenis Torrez, SINA) PRN Medication Order 03/19/2019 03/20/2019 03/21/2019 acetaminophen (TYLENOL) tablet 650 mg 650 mg, oral, 4 times daily PRN, 1st line for pain, fever, fever greater than 38.3 C, Starting on Wed03/17/19 at 1800, Indications: Fever, Pain 0311 (Given - Provider: Xochitl Abrams RN)0924 (Given - Provider: Elisha Webster RN)1552 (Given - Provider: Cyndy Mansfield RN)2201 (Given - Provider: Xochitl Abrams RN) 0449 (Given - Provider: Xochitl Abrams RN)0929 (Given - Provider: Argenis Torrez, SINA)1616 (Given - Provider: Lorena Monk RN)2007 (Given - Provider: Carina Cardenas RN) 0835 (Given - Provider: Argenis Torrez RN) oxyCODONE (ROXICODONE) tablet 5 mg (CANCELED) 5 mg, oral, Every 6 hours PRN, 2nd line for pain, Starting on Wed03/16/19 at 0615, Indications: Pain 0311 (Given - Provider: Xochitl Abrams RN)0924 (Given - Provider: Elisha Webster RN)1552 (Given - Provider: Cyndy Mansfield RN)220 (Given - Provider: Xochitl Abrams RN) 0449 (Given - Provider: Xochitl Abrams RN) sodium chloride 0.9% flush 0.5-20 mL 0.5-20 mL, intra-catheter, As needed, line care, Starting on Wed03/15/19 at 0045, Flush volume based on line type and size. Flush before and after each use. sodium chloride 0.9% flush 0.5-20 mL 0.5-20 mL, intra-catheter, As needed, line care, Starting on Wed03/17/19 at 1252, Pre-Procedure (IR), Flush volume based on line type and size. Flush before and after each use. documented in this encounter Orders Medications Ordered That Jamil ht Not Have Been Administered Count Last Ordered Date First Ordered Date sodium chloride 0.9% flush 0.5-20 mL 2 09/201803/15/2019 ondansetron ODT (ZOFRAN-ODT) disintegrating tablet 4 mg 1 03/15/2019 Lab Orders Without Results Count Last Ordered D ate First Ordered Date FOLATE 1 03/21/2019 HEPATITIS C ANTIBODY 1 03/21/2019 HIV 1/2 ANTIBODY PLUS P24 ANTIGEN 1 019 VITAMIN B12 1 03/21/2019 BILIRUBIN, DIRECT 1 03/15/2019 Diet Count Last Ordered Date First Orde red Date ADULT DISCHARGE DIET 1 03/21/2019 Nursing Count Last Ordered Date First Orde red Date DISCHARGE ACTIVITY 1 03/21/2019 DISCHARGE CALL PROVIDER 3 03/21/2019 FOLLOW UP WITH PROVIDER 1 03/21/2019 TUBE OR DRAIN CARE 1 03/21/2019 Consult Count Last Ordered Date First Orde red Date CONSULT TO GENERAL INFECTIOUS DISEASE 1 12/2018 CONSULT TO GASTROENTEROLOGY - BILIARY 1 07/2018 IP CONSULT TO SOCIAL WORK 1 03/15/2019 CORE MEASURES Count Last Ordered Date First Ord ered Date REASON FOR NO VTE PROPHYLAXIS AT ADMISSION 1 03/15/2019 documented in this encounter Care Teams Scrip Clerk Relationship Specialty Start Date End Date Thao Dove MD PCP - General 03/14/19 documented as of this encounter
--- OUTSIDE RECORDS SUMMARY | 2024-07-02 03:57 | XMS_ITS | Encounter Summary ---
Author Organization [facility] Healthcare Address [address] [place] [address] Care Team Providers Care Production Controller Name Role Phone Thao Dove MD Primary Care Provider Encounter Details Date Type Department Care Team (Latest Contact Info) Description 03/15/2019 5:32 AM CDT - 03/15/2019 6:11 AM CDT Hospital Encounter [facility] [address] [place] [id number] Discharge Disposition: Discharge to home or self [...] Procedure Name Priority Date/Time Associated Diagnosis Comments MR BODY OUTSIDE CONSULT Routine 03/15/2019 5:32 AM CDT Diagnosis unknown documented in this encounter Results * MR Body Outside Consult (03/15/2019 5:32 [...] images may or may not represent the solomon source data set and thus may contain [...] IMAGING STUDY STUDY INITIALLY PERFORMED: 03/14/2019 at [facility]. TYPE OF STUDY: Multiple MRI images of [...] images submitted through [employer] DATE OF CONSULTATION: 03/15/2019 9:36 AM HISTORY: [...] IMAGING STUDY STUDY INITIALLY PERFORMED: 03/14/2019 at [facility]. TYPE OF STUDY: Multiple MRI images of [...] images submitted through [employer] DATE OF CONSULTATION: 03/15/2019 9:36 AM HISTORY: [...] images may or may not represent the solomon source data set and thus may contain changes that may lower the accuracy of this second-opinion interpretation. Dictated by: Ismael Basilio M.D. The radiology attending physician has personally reviewed this study, and had reviewed and/or edited this written report and agrees with it. Electronically signed by: Bryon Ramirez M.D. us Apple Bridger Trejo MD IMG MRI PROCEDUR ES Final Result documented in this encounter Visit Diagnoses Not on filedocumented in this encounter Care Teams Production Controller Relationship Specialty Start Date End Date Thao Dove MD PCP - General 03/14/19 documented as of this encounter
--- OUTSIDE RECORDS SUMMARY | 2024-07-02 03:57 | XMS_ITS | Encounter Summary ---
Author Organization [facility] Care Team Providers Care Civil Cad Designer Name Role Phone Thao Dove MD Primary Care Provider Encounter Details Date Type Department Care Team (Latest Contact Info) Description 03/18/2019 Travel Social History Tobacco Use Types Packs/Day [...] on filedocumented in this encounter Care Teams Civil Cad Designer Relationship Specialty Start Date End Date Thao Dove MD PCP - General 03/14/19 documented as of this encounter
--- OUTSIDE RECORDS SUMMARY | 2024-07-02 03:57 | XMS_ITS | Encounter Summary ---
Author Organization [facility] Care Team Providers Care Crusher Loader Equipment Operator Name Role Phone Thao Dove MD Primary Care Provider Encounter Details Date Type Department Care Team (Latest Contact Info) Description 03/15/2019 Travel Social History Tobacco Use Types Packs/Day [...] on filedocumented in this encounter Care Teams Crusher Loader Equipment Operator Relationship Specialty Start Date End Date Thao Dove MD PCP - General 03/14/19 documented as of this encounter
--- OUTSIDE RECORDS SUMMARY | 2024-07-02 03:57 | XMS_ITS | Encounter Summary ---
Author Organization [facility] Healthcare Address [address] [place] [address] Care Team Providers Care Ribbon Hanking Machine Operator Name Role Phone Thao Dove MD Primary Care Provider Encounter Details Date Type Department Care Team (Late st Contact Info) Description 04/03/2019 Telephone [facility] Radiology [facility] [address] [place] [address] Vera West RN Social History Tobacco Use [...] Telephone Encounter - Vera West RN - 04/03/2019 3:48 PM CDT Preprocedure Phone Call Procedure Time Verified: Yes Arrival Time Verified: Yes Procedure Location Verified: Yes Medical History Reviewed: Yes NPO Status Reinforced: No Ride and Caregiver Arranged: Yes Ride Caregiver Provider: Father Patient Knows to Bring Current Medications: Yes Patient Knows to Bring CPAP: No Is Patient on Home Ventilator?: No Is Patient on Blood Thinners?: No Discharge Planning Support Systems: Family members Type of Residence: Private residence Patient expects to be discharged to:: Private residence documented in this encounter Plan of Treatment Not on file documented as of this encounter Visit Diagnoses Not on filedocumented in this encounter Care Teams Ribbon Hanking Machine Operator Relationship Specialty Start Date End Date Thao Dove MD PCP - General 03/14/19 documented as of this encounter
--- NOTE | 2024-07-03 14:19 | PM.TDS ---
Transfer Discharge Sum: Prov Provider Date of admission: 06/25/24 11:25 Primary care physician: UNKNOWN,DOCTOR Admitting clinician: Doyle Thompson MD Consults: 06/25/24 05:10 Consult to Physician Routine Comment: Consulting Provider: Abdifatah Escoto Reason for consultation: Insulin overdose, intubated Has provider been notified: Yes 06/25/24 23:35 Consult to Dietitian Routine Reason for Consult:: DM1 DS: Admitting Diagnosis Discharge Date 06/28/24 Admitting Diagnosis Intentional insulin overdose, acute respiratory failure, suicidal behavior DS: Discharge Diagnosis Discharge Diagnosis (1) Intentional overdose of insulin: Code(s): T38.3X2A - Poisoning by insulin and oral hypoglycemic [antidiabetic] drugs, intentional self-harm, initial encounter Status: Acute Assessment and Plan: Patient has history of his depression and suicide attempts in the past. She is diabetic and is on insulin Presented with persistent severe hyperglycemia with situation that would suggest intentional overdose of insulin patient was treated with D10, glucagon and hydrocortisone hypoglycemia has resolved and has been weaned off all treatments. Patient is hyperglycemic, requiring sliding scale insulin and Lantus Hydrocortisone was DC The continue diabetic diet (2) Acute respiratory failure: Code(s): J96.00 - Acute respiratory failure, unspecified whether with hypoxia or hypercapnia Status: Acute Assessment and Plan: Acute respiratory failure secondary to altered mental status secondary to hypoglycemia Patient may also have had a seizure and was postictal 06/27 extubated after a successful weaning trial. Incentive spirometry Currently on room air (3) Diabetes mellitus: Code(s): E11.9 - Type 2 diabetes mellitus without complications Status: Acute Assessment and Plan: continue SSI and Accu-Cheks Continue Lantus (4) Hypokalemia: Code(s): E87.6 - Hypokalemia Status: Acute Assessment and Plan: Potassium has normalized -will replace magnesium (5) Altered mental status: Qualifiers: Altered mental status type: unspecified Qualified Code(s): R41.82 - Altered mental status, unspecified Code(s): R41.82 - Altered mental status, unspecified Status: Acute Assessment and Plan: Likely secondary to hypoglycemia. Patient may have had a seizure and was postictal. -now alert and oriented Head CT was done and was negative Monitor (6) Hypoglycemia: Code(s): E16.2 - Hypoglycemia, unspecified Status: Acute Assessment and Plan: Resolved Suspected secondary to intentional overdose of insulin. Management as above. (7) Shock: Code(s): R57.9 - Shock, unspecified Status: Acute Assessment and Plan: Patient hypotensive post intubation which could be secondary to sedatives or sepsis RESOLVED (8) Sepsis: Code(s): A41.9 - Sepsis, unspecified organism Status: Acute Assessment and Plan: Patient met criteria for sepsis had elevated WBC count and chest x-ray shows infiltrate or atelectasis in lower lobes Could be aspiration pneumonia negative blood and sputum culture DC Augmentin procalcitonin was low UA was unremarkable (9) Pneumonia: Code(s): J18.9 - Pneumonia, unspecified organism Status: Acute Assessment and Plan: See above (10) Suicide attempt: Code(s): T14.91XA - Suicide attempt, initial encounter Status: Acute Assessment and Plan: patient suspected to have intentional overdose of insulin. She does have history of depression and suicide attempts in the past. currently she states she does not remember what happened. Continue suicide precautions and one-to-one sitter Patient is medically stable Will have crisis management and care coordination evaluate the patient -patient would likely benefit from inpatient psychiatry unit Plan DVT prophylaxis -Lovenox Stress ulcer prophylaxis -PPI Nutrition - diabetic diet Code Status - Full Code - suicide precautions Transfer Discharge Sum: Med Medications Active and Home Medications: Home Medications insulin aspart U-100 100 unit/mL subcutaneous solution (Novolog U-100 Insulin aspart) 1 sliding scale dose subcut USEASDIRECTD 07/01/21 [History Confirmed 06/25/24] pregabalin 100 mg capsule 200 mg PO TID 02/24/22 [History Confirmed 06/25/24] albuterol sulfate 90 mcg/actuation aerosol inhaler 90 mcg inhalation DAILY 03/10/24 [History Confirmed 06/25/24] carbidopa 25 mg-levodopa 100 mg tablet See Rx Instructions .Route .COMPLEX 03/10/24 [History Confirmed 06/25/24] duloxetine 60 mg capsule,delayed release See Rx Instructions .Route .COMPLEX 03/10/24 [History Confirmed 06/25/24] hydroxyzine pamoate 25 mg capsule 25 mg PO HS 03/10/24 [History Confirmed 06/25/24] ferrous sulfate 325 mg (65 mg iron) tablet 325 mg PO BID #60 tabs 03/12/24 [Rx Confirmed 06/25/24] folic acid 1 mg tablet 1 mg PO DAILY #30 tabs 03/12/24 [Rx Confirmed 06/25/24] thiamine HCl (vitamin B1) 100 mg tablet (Vitamin B-1) 100 mg PO QAM #30 tabs 03/12/24 [Rx Confirmed 06/25/24] buspirone 10 mg tablet 30 mg PO BID anxiety 06/25/24 [History Confirmed 06/25/24] dextroamphetamine sulfate 30 mg tablet 30 mg PO DAILY@1400 06/25/24 [History Confirmed 06/25/24] dextroamphetamine-amphetamine ER 30 mg 24hr capsule,extend release 30 mg PO DAILY@0630 06/25/24 [History Confirmed 06/25/24] hydroxyzine HCl 10 mg tablet 10 mg PO TID PRN anxiety 06/25/24 [History Confirmed 06/25/24] insulin glargine 100 unit/mL (3 mL) subcutaneous pen (Lantus Solostar U-100 Insulin) 30 unit subcut QPM 06/25/24 [History Confirmed 06/25/24] insulin lispro 100 unit/mL subcutaneous pen 10 unit subcut TIDWMEAL 06/25/24 [History Confirmed 06/28/24] Transfer Discharge Sum: Hosp Hospital Course Hospital course: Marisa Lott is a 44 year old female with past medical history of type 1 diabetes, DKA, alcohol withdrawal seizure, depression, anxiety, pancreatitis, past history of suicide attempt was brought to ER yesterday with altered mental status. Patient was found unresponsive by her . Prior to that patient told her that she was sorry before going to bed but did not explain what exactly was bothering her. heard her snoring and went to check on her after 30 minutes and could not wake her up and called EMS. Patient was brought to the ER and was not protecting her airway and was intubated. Patient was found to be hypoglycemic. Despite several pushes of D50 patient remained hypoglycemia. Patient was started on D10 infusion and also given glucagon. Patient was agitated post intubation and had to be sedated. Post intubation patient was hypotensive and was started on Levophed after fluid bolus Patient was admitted to ICU for further evaluation management. Patient was started on D10 infusion, was given glucagon, hydrocortisone. Patient's hypoglycemia improved. Patient was intubated in the ER on 06/25/2024. She was also extubated in the ICU on 06/27/2024. Post extubation she was on room air, diabetes is being treated with sliding scale insulin Accu-Cheks along with Lantus. She had some hypokalemia which resolved. She was in diabetic diet. Hydrocortisone was discontinued as blood sugars were elevated during the course of a stable hospital. Her altered mental status and dissolved, CT scan of the head was negative on admission. She was started on Augmentin for possible aspiration pneumonia, procalcitonin was low, sputum cultures were negative prior to transfer to psych facility on Coumadin was discontinued. Patient was subsequently medically stable, evaluated by care coordination and crisis management, given her previous history of suicidal behavior/attempt she [facility] to [facility]. Patient was transferred to the [facility] on 06/28/2024. Time Spent with Patient Time attestation: Total time spent providing and/or coordinating transfer services: 22 minutes Exam Narrative: General: alert awake in no distress Lungs/Chest: Trachea central Coarse BS B/L, No crackles or wheezing. Cardiac: RRR. Normal S1 S2. No murmurs Circulation: Pedal pulses are intact and symmetrical. Abdomen: Decreased bowel sounds. Obese. Soft. NT. ND. Extremities: No clubbing, cyanosis or edema. Warm : Weathers in place Neurologic: Patient is awake, alert, oriented, answers to questions appropriately and follows simple commands in all extremities. PERRL Psych: Flat affect, normal mentation
--- OUTSIDE RECORDS SUMMARY | 2024-07-06 11:36 | XMS_ITS | Data Portability ---
Author Organization [place] [facility], Main Office Address [address] [place] [address] Care Team Providers Care Steel Cutter Name Role Phone TAMARA WEST Primary Care Provider TAMARA WEST Referring Provider [phone] FERN LARRY Primary Care Provider Assessment Encounter Date Assessment Date Assessment LastModified by Organization Details LastModified Time 10/29/2023 10/29/2023 By x-ray and exam the [...] for any further problems difficulties or questions. [email or web address] Not available 10/29/2023 11:44:05 Plan of Treatment Reminders Order Date Submit Date Provider Last Modified By Organization Details Last Modified Time Details Appointments Hospital Follow Up 2024 11:30A M YOMI Warren Not available Not available Not available Follow Up 15 2024 10:30A M YOMI Warren Not available Not available Not available Lab vitamin D, 25-hydrox y, total, serum 2023 024 [email or web address] [facility] (Lab), [address] [place], [address], 02/29/2024 08:39:11 glycohemo globin, total, blood 2023 024 [email or web address] [facility] (Lab), [address] [place], [address], 02/29/2024 08:39:11 drug screen, urine [facility]23 [facility] [address] [place], [address], 06/13/2024 01:53:34 Referral cardiolog ist referral - edema . Please eval and treat . Please call patient to schedule an appointme nt. Thank you . 2023 024 [email or web address] [facility] Referral Fax Line, [address] [facility], [place], [address], 11/25/2023 08:45:48 gynecolog ist referral - Pleese call patient to schedule an appointme nt. Thank you. 2023 024 [email or web address] [address] [facility] [address], [place], [address], 12/10/2023 08:36:25 sleep medicine referral - Please eval and treat. snores , wakes up gasping for air frequentl y. Please call patient to schedule an appointme nt. Thank you. 2023 024 [email or web address] Solomon Tony MD, [address] [place], [address], 03/21/2024 09:04:40 Procedures None recorded. Surgeries None recorded. Imaging MAMMO, screening , digital, bilateral - *Please call pt to schedule* 2023 024 [email or web address] 56 [facility], [address] [place] [address] , [place], [address], 11/29/2023 09:18:52 XR, hand, 3 or more view 2023 024 [email or web address] [facility] [place], [facility] [address], [place], [address], 10/29/2023 13:54:12 Medication Orders nicotine (polacril ex) 4 mg gum 2023 024 [facility] [address], [address], [place], [address], 10/28/2023 09:49:51 alendrona te 70 mg tablet 2023 024 [facility] [address], [address], [place], [address], 10/28/2023 09:43:44 dextroamp hetamine sulfate 30 mg tablet 2023 024 [email or web address] [facility] [address], [address], [place], [address], 06/15/2024 08:09:59 carbidopa 25 mg-levodo pa 100 mg tablet 2023 024 [facility] #68918, [address] [place], [place], [id number], 02/22/2024 11:24:56 buspirone 10 mg tablet 2023 024 [facility] #19815, [address] [place], [place], [id number], 02/22/2024 11:25:54 dextroamp hetamine- amphetami ne 30 mg tablet 2023 024 [facility] #43517, [address] [place], [place], [id number], 02/22/2024 11:21:37 dextroamp hetamine- amphetami ne ER 30 mg 24hr capsule,e xtend release 2023 024 [facility] #77499, [address], [place], [place], [id number], 02/22/2024 11:21:36 ondansetr on 4 mg disintegr ating tablet 2023 024 [email or web address] 00 [facility] #60570, [address], [place], [place], [id number], 06/12/2024 13:14:56 Cipro 500 mg tablet 2023 024 [email or web address] 00 [facility] #01355, [address], [place], [place], [id number], 06/12/2024 13:14:57 hydroxyzi ne HCl 10 mg tablet 2023 024 [email or web address] 00 [facility] #91476, [address], [place], [place], [id number], 06/12/2024 13:14:57 dextroamp hetamine sulfate 30 mg tablet 2023 024 [facility] #58542, [address], [place], [place], [id number], 06/15/2024 08:09:59 Patient TargetsNo targets recorded. 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 Thank you. 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 Please eval and treat . Please call patient to schedule an appointment. Thank you . Referring Physician: [facility], Encounter Date: 10/28/2023 Sleep Medicine Referral for Snoring Please eval and treat. snores , wakes up gasping for air frequently. Please call patient to schedule an appointment. Thank you. Referring Physician: Tamara West, Family Medicine, Encounter Date: 02/22/2024 Results Created Date Observation Date Name Description Value Unit Range Abnormal Flag Note LastModifiedBy Organization Detail LastModifiedTime 10/29/19 24 XR, hand, 3 or more view No observ ation record ed. [email or web address] [facility] [place] [address], [place], [address], 10/29/2023 11:41:38 Result Notes None recorded. Problems Name Problem SNOMED Code Status Onset Date Resolution Date Notes Provider Name and Address Organization Details Recorded Time Uncontroll ed type 1 diabetes mellitus 749053673 Active 2021 Not Available [facility] 3 00:58:39 Type 1 diabetes mellitus 94316351 Active 2021 Not Available [facility] 3 00:58:39 Diabetes mellitus 09657806 Active 2021 Not Available [facility] 3 00:58:39 Neuropathy 286772443 Active 2022 Fern Portillo MD [address], [address], [place], [address] , [employer] 3 11:04:16 Attention deficit hyperactiv ity disorder, predominan tly inattentiv e type 08038734 Active 2022 Fern Portillo MD [address], [address], [place], [address] , [employer] 3 11:04:42 Type 2 diabetes mellitus without complicati on 411091242 Active 2022 Fern Portillo MD [address], [address], [place], [address] , [facility] 3 15:41:36 Anxiety 22772384 Active 2022 Fern Portillo MD [address], [address], [place], [address] , [place] [facility] 3 10:23:08 Inspirator y wheezing 69322187 Active 2022 Fern Portillo MD [address], [address], [place], [address] , [place] [facility] [place] [facility] 3 10:21:21 Chronic abdominal pain 191941901 Active 2022 Fern Portillo MD [address], [address], [place], [address] , [place] [facility] 3 16:46:39 Bipolar disorder 58455566 Active 2022 Fern Portillo MD [address], [address], [place], [address] , [place] [facility] [place] [facility] 3 09:27:57 Diabetic peripheral neuropathy 634896071 Active 2022 Fern Portillo MD [address], [address], [place], [address] , [place] [facility] 3 10:07:34 Pain in right hand 8658423878383 09 Active 2022 Mervat Ba MEDICAID SPECIALIST null, [place] [facility] [place] [facility] 3 14:04:09 Closed fracture thumb proximal phalanx 892033195 Active 2022 YOMI Weaver [address], [address], [place], [address] , [place] [facility] 3 15:19:36 Vitamin D deficiency 33261323 Active 2022 Mervat Ba MEDICAID SPECIALIST null, [place] [facility] 3 08:51:39 Osteoporos is 81453907 Active 2022 Mervat Ba MEDICAID SPECIALIST null, [place] [facility] 3 08:53:08 Osteopenia 959033015 Active 2022 Fern Portillo MD [address], [address], [place], [address] , [facility] 3 15:24:51 Nicotine dependence 38545086 Active 2023 YOMI Warren [address], [address], [place], [address] , [facility] [place] [facility] 4 10:08:05 Type 1 diabetes mellitus without complicati on 722178363 Active 2023 Isai Mclean RN null, [facility] 4 15:09:03 Vertigo 369302857 Active 2023 Isai Mclean RN null, [place] [facility] 4 08:20:58 Splenic vein thrombosis 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 Active 2023 Isai Mclean RN null, [facility] 4 16:19:03 Pain of right wrist 9655772834966 00 Active 2023 Mervat Ba CNA null, [facility] 4 10:39:22 Closed fracture of neck of fifth metacarpal bone of right hand 2096802421928 9108 Active 2023 YOMI Weaver [address], [address], [place], [address] , [facility] 4 13:21:50 Screening for malignant neoplasm of cervix Active 2023 YOMI Warren [address], [address], [place], [address] , [facility] 4 09:33:45 Screening for malignant neoplasm of breast Active 2023 YOMI Warren [address], [address], [place], [address] , [facility] 4 09:34:51 Edema 743433518 Active 2023 YOMI Warren [address], [address], [place], [address] , [facility] 4 09:45:51 Candidiasi s of skin 25752525 Active 2023 YOMI Warren [address], [address] [employer], [place], [address] , [facility] [employer] [facility] [employer] [facility] 4 09:38:55 Pityriasis versicolor 07080374 Active 2023 YOMI Warren [address], [address] [employer], [place], [address] , [facility] [employer] [facility] [employer] [facility] 4 09:40:36 Periodic limb movement disorder 847733825 Active 2023 YOMI Warren [address], [address] [employer], [place], [address] , [facility] [employer] [facility] [employer] [facility] 4 11:21:45 Snoring 53717475 Active 2023 YOMI Warren [address] [address], [place], [address] , [facility] [employer] [facility] [employer] [facility] 4 11:25:02 Gastritis 7003031 Active 2023 YOMI Warren [address], [address] [employer], [place], [address] , [facility] [employer] [facility] [employer] [facility] 4 13:09:48 Attention deficit hyperactiv ity disorder 390867053 Active 2024 Kathya Hunter RN [facility], [facility] [employer] [facility] 5 10:02:08 Problem Notes Documentation Provider Name and Address Organization Details Recorded Time Orthopedic Surgeon Consult Note : [facility] ? [address], [facility] [id number], Susan R (id #[id number], : 1980) Documents sent via fax will [...] received this fax in error, please visit [email or web address] [email or web address] to notify the sender and confirm that the information will be destroyed. If you do not have internet access, please call to notify the sender and confirm that the information will be destroyed. Thank you for your attention and cooperation. [ID:[id number]] , Date: 4RE: Benedicto Olguin MD, I [...] patient. Sincerely, Electronically Signed by: YOMI WEAVER, PASUP Assessment/PlanBy x-ray and exam the patient is [...] will return to the office as needed Isai Mclean RN [facility], [facility] [employer] [facility] 10/29/2023 11:59:30 Procedures Surgical History Date Name Laterality Status Provider Name and Address Organization Details Recorded Time delivery completed Mervat Ba CNA [facility] 05/04/2023 14:03:08 procedure on humerus completed Mervat Ba CNA [facility] 05/04/2023 14:03:39 Imaging Results Imaging Date Name Status LastModified by Organiz ation Details LastModified Time 10/29/2023 XR, hand, 3 or more view completed [email or web address] [facility] [place] [address] [facility] [address], [place], [address], 10/29/2023 11:41:38 Procedure Notes None recorded. 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 [employer] [facility] 10/29/2023 11:13:07 Date Recorded Body height Body mass index (BMI) Body weight Body temperature Heart rate Respiratory rate Oxygen saturation Oxygen saturation in Arterial blood by Pulse oximetry Systolic blood pressure Diastolic blood pressure Provider Name and Address Organization Details Last Updated DateTime 4 160.02 cm 34.2 kg/m2 56066.3 3 g 98.8 [degF] 96 /min 16 /min 99 % 99 % 134 mm[Hg] 80 mm[Hg] Kathya Hunter RN [facility] [employer] [facility] 4 11:02:08 Date Recorded Body height Body mass index (BMI) Body weight Body temperature Heart rate Oxygen saturation Oxygen saturation in Arterial blood by Pulse oximetry Systolic blood pressure Diastolic blood pressure Provider Name and Address Organization Details Last Updated DateTime 4 160.02 cm 36.8 kg/m2 01950.2 1 g 98.3 [degF] 102 /min 99 % 99 % 150 mm[Hg] 90 mm[Hg] Kathya Hunter RN [facility] [employer] [facility] 4 12:53:09 Social History Question Answer Notes LastModified by Organizat ion Details LastModified Time Tobacco Smoking Status Current Every Day Smoker Not Available [facility] 08/13/2022 00:57:34 What Is Your Level Of Alcohol Consumption? None [id number] Information not available 08/13/2022 What Is Your Level Of Caffeine Consumption? Moderate MIGRATION.[id number] Information not available 08/13/2022 In The 14 Days Before Symptom Onset, Have You Had Close Contact With A Laboratory-confirm ed COVID-19 While That Case Was Ill? No MIGRATION.[id number] Information not available 08/13/2022 In The 14 Days Before Symptom Onset, Have You Had Close Contact With A Person Who Is Under Investigation For COVID-19 While That Person Was Ill? No MIGRATION.[id number] 2588 Information not available 08/13/2022 What Type Of Diet Are You Following? REGULAR MIGRATION.[id number] 6117 Information not available 08/13/2022 What Is Your Relationship Status? Single MIGRATION.211645 4866 Information not available 08/13/2022 At What Age Did You Start Smoking Tobacco? 22 MIGRATION.038432 6337 Information not available 08/13/2022 How Much Tobacco Do You Smoke? 0.5 PPD Information not available 05/04/2023 Do You Use Any Illicit Or Recreational Drugs? No MIGRATION.421525 3224 Information not available 08/13/2022 How Many Years Have You Smoked Tobacco? 20 Information not available 05/04/2023 Have You Recently Traveled Abroad? No MIGRATION.367000 2972 Information not available 08/13/2022 Do You Have Any Dietary Restrictions? No MIGRATION.235059 9265 Information not available 08/13/2022 Sex: Female Functional Status Question Answer Note LastModified by Organizat ion Details LastModified Time What is your exercise level? Occasional [id number] 26 Information not available 08/13/2022 Mental Status None recorded. Family History Relationship Description Onset Age of this Age Resolved Age Notes LastModified by Organization Details LastModified Time Father Diabetes mellitus [id number] [id number] Not available 08/13/2022 00:57:41 Mother Diabetes mellitus MIGRATION.537 [id number] Not available 08/13/2022 00:57:41 Mother Malignant tumor of lung MIGRATION.323 0436443 Not available 08/13/2022 00:57:41 Paternal Grandfather Malignant tumor of colon MIGRATION.140 [id number] Not available 08/13/2022 00:57:41 Mother Heart disease [...] SNOMED-CT Code Diagnosis ICD10 Code Diagnosis Note [id number] [facility] [place] [address] 09/16/2021 00:00:00 09/16/2021 20:27:36 [id number] [facility] [place] [address] [place] [address] 11/07/2021 00:00:00 11/07/2021 15:50:11 [id number] [facility] [place] [address] 01/21/2022 00:00:00 01/21/2022 19:44:28 [id number] Fern Portillo MD [facility] janelle [address] [place] [address] [place] [address] 10/08/2022 09:59:45 10/08/2022 10:23:03 Attention deficit hyperactivity disorder, predominantly inattentive type 85984066 F90.0 Will increase adderall to 30 ER generic [id number] Fern Portillo MD [facility] [place] [address] 01/07/2023 10:06:17 01/07/2023 10:30:50 Inspiratory wheezing 69894073 R06.2 Attention deficit hyperactivity disorder, predominantly inattentive type 53875674 F90.0 continue dextroamph etamine 30 mg ER and will add IR 10 mg at 2 pm. Neuropathy 663247573 G62 .9 [id number] YOMI [facility] [place] [address] [place] [address] 05/04/2023 13:41:49 05/04/2023 15:30:56 Pain in right hand 9108374073 21712 M79.641 Closed fra cture thumb proximal phalanx 033602743 S62.511A [id number] YOMI Weaver S[facility] [place] [address] [place] [address] 05/25/2023 14:13:30 05/25/2023 15:29:03 Closed fracture thumb proximal phalanx 831768644 S62.511D Pain in right hand 75975 17884 55892 M79.181 [id number] YOMI Warren [facility] [address] [facility] [place] [address] 06/02/2023 15:42:19 06/02/2023 16:25:17 Neuropathy 312411308 G62.9 Attention deficit hyperactivity disorder, predominantly inattentive type 90068189 F90.0 Anxiety 40011500 F41.9 Bipolar disorder 5950506 4 F31.9 Diabetes mellitus 291860 09 E11.9 E13.42 Type 2 hector betes mellitus without complication 226776364 E11.9 [id number] YOMI [facility] [place] [address] [place] [address] 07/09/2023 10:07:14 07/09/2023 11:05:43 Closed fracture thumb proximal phalanx 156916569 S62.511D Pain in right hand 85863 19140 08487 M79.971 [id number] YOMI WeaverS[facility] [place] [address] [place] [address] 08/10/2023 14:19:28 08/10/2023 15:14:30 Closed fracture thumb proximal phalanx 103853985 S62.511D Pain in right hand 24724 65018 00371 M79.660 [id number] YOMI Weaver [facility] [place] [address] [place] [address] 09/03/2023 10:35:43 09/03/2023 11:37:22 Pain of right wrist 7867368306 25315 M25.531 Closed fra cture of neck of fifth metacarpal bone of right hand 0266104364 6137060 S62.336A [id number] YOMI Weaver [facility] [place] [address] [place] [address] 09/14/2023 13:54:54 09/14/2023 14:52:32 Closed fracture of neck of fifth metacarpal bone of right hand 0517569236 6426833 S62.336D Pain in right hand 32008 07470 75747 M79.641 Pain of right wrist 3169 131907 40309 M25.774 [id number] YOMI Warren [facility] [address] [facility] [place] [address] 10/28/2023 09:09:33 10/28/2023 09:59:57 Screening for malignant neoplasm of cervix 631713203 Z12.4 Screening for malignant neoplasm of breast 372863698 Z12.39 Attention deficit hyperactivity disorder, predominantly inattentive type 35952600 F90.0 Osteoporosis 22246670 M8 1.0 Edema 076030466 R60.9 Nicotine dependence 5629 4008 F17.200 Anxiety 57829686 F41.9 Bipolar disorder 2970237 4 F31.9 Diabetic p eripheral neuropathy 867245804 E11.40 Diabetes mellitus 832265 09 E11.9 E13.42 Vitamin D deficiency 347 91212 E55.9 [id number] YOMI Weaver [facility] [place] [address] [place] [address] 10/29/2023 11:09:38 10/29/2023 11:57:39 Closed fracture of neck of fifth metacarpal bone of right hand 6489158690 6586244 S62.336D Pain in right hand 68095 23678 18104 M79.515 [id number] YOMI Warren [facility] [address] [facility] [place] [address] 02/22/2024 10:52:06 02/22/2024 11:35:48 Attention deficit hyperactivity disorder, predominantly inattentive type 04092872 F90.0 Type 2 hector betes mellitus without complication 112138454 E11.9 Vitamin D deficiency 347 38848 E55.9 Periodic l imb movement disorder 074574213 G47.61 Anxiety 02936646 F41.9 Snoring 07168296 R06.83 Diabetic p eripheral neuropathy 477300666 E11.40 Osteoporosis 59370146 M8 1.0 [id number] YOMI Warren [facility] [address] [place] [address] 06/12/2024 12:33:48 06/12/2024 13:19:06 Long-term current use of stimulant 7154561432 5406923 Z79.899 Gastritis 9373520 K29.70 Anxiety 01783258 F41.9 Attention deficit hyperactivity disorder, predominantly inattentive type 42455871 F90.0 Type 2 hector betes mellitus without complication 306305895 E11.9 Health Concerns Section Related Observation LastModified by Organization Detai ls LastModified Time None Recorded Concern Status LastModified by Organization Details LastModified Time None Recorded Advance Directives Directive None Recorded Payers Encounter Date Sequence Insurance Name Policy Number Policy Daily Covered Member ID Daily Member ID Guarantor Name 10/28/2023 1 [place] [facility] (MEDICAID REPLACEMENT - HMO) [id number] Marisa Lott [id number] Marisa Lott 10/29/2023 1 [place] [employer] [place]AC[place] - [place]MO) [id number] Marisa Lott [id number] Marisa Lott 02/22/2024 1 [place] [facility] (MEDICAID REPLACEMENT - HMO) [id number] Marisa Lott [id number] Marisa Lott 06/12/2024 1 [place] [facility] (MEDICAID REPLACEMENT - HMO) [id number] Marisa Lott [id number] Marisa Lott Notes Date Note Type Note Provider Name and Address Organization Details Recorded Time 10/28/2023 text/html blood clot near spleen , takes creon YOMI Warren [address], [place], [address], [employer] 11/21/2023 16:16:48 10/29/2023 text/html patient returns she [...] the healing has progressed. YOMI Weaver [address] [employer], [place], [address], [employer] 10/29/2023 11:44:34 02/22/2024 text/html snores , wakes u p gasping for air at times . when sleeping her legs move through the night , disturbing her . YOMI Warren [address] [employer], [place], [address], [employer] 02/23/2024 11:26:10 06/12/2024 text/html sick , stomach b ug , vomiting , no fever YOMI Warren [address], [place], [address], [employer] 06/19/2024 15:22:13 OBGyn Episode No OBEpisode recorded.
--- OUTSIDE RECORDS SUMMARY | 2024-07-06 11:36 | XMS_ITS | Encounter Summary ---
Author Organization [facility] Healthcare Address [address] [place] [address] Care Team Providers Care Biostatistics Professor Name Role Phone Thao Dove MD Primary Care Provider Encounter Details Date Type Department Care Team (Late st Contact Info) Description 05/03/2019 Telephone [facility] Radiology [address] [address] Carmen Hendrix RN Social History Tobacco Use [...] on filedocumented in this encounter Care Teams Biostatistics Professor Relationship Specialty Start Date End Date Thao Dove MD PCP - General 03/14/19 documented as of this encounter
--- OUTSIDE RECORDS SUMMARY | 2024-07-06 11:36 | XMS_ITS | Clinical Summary ---
Author Organization [facility] Address [address] [place] [address] Phone Care Team Providers Care Ship Superintendent Name Role Phone Ari West Primary Care Provider [phone] Salome Larsen MD Unavailable Wally Sandoval MD Unavailable [phone] Nabeel Prado MD Unavailable [phone] Allergies No known active allergies Medications hydrOXYzine [...] not apply route. Active Continuous Blood Gluc Vessel Ordinary Seaman (Dexcom G7 Vessel Ordinary Seaman) Device Check blood sugar before each meal and at bedtime 1 Each 09/13/19 24 Active Insulin Pen Needle (Pen Ridott) 32G X 4 MM Misc 4 times a day 400 Each 3 09/13/19 24 Active Pancrelipase, Zha-Nsnj-Xnyo , (CREON 31649) [id number] Capsule DR Particles Take 1 Capsule by [...] Type Department Care Team Description 06/21/2024 Telephone [facility] - Gastroenterology - [place] [address] [place] [address] Uriel Chavarria MD Procedure 06/16/2024 Refill [facility] Endocrinology - [place] [address] [place] [phone] Salome Larsen MD Medication Refill 06/13/2024 Refill [facility] Endocrinology - [place] [address] [place] [phone] Salome Larsen MD Medication Refill 05/31/2024 8:41 AM RESTAURANT GREETER Anesthesia [facility] Periop [address] [place] [address] Raúl Hester APRN, JUMA 05/31/2024 8:30 AM RESTAURANT GREETER - 05/31/2024 9:30 AM RESTAURANT GREETER Surgery [facility] [address] [place] [address] Uriel Chavarria MD EGD - NORMAL EGD 05/31/2024 7:55 AM RESTAURANT GREETER Ancillary Procedure [facility] Main [address] [place] [address] Uriel Chavarria MD 05/31/2024 7:50 AM RESTAURANT GREETER Ancillary Procedure [facility] Main [address] [place] [address] Uriel Chavarria MD 05/31/2024 7:43 AM RESTAURANT GREETER - 05/31/2024 10:00 AM RESTAURANT GREETER Hospital [facility]counter [facility] Preop/Pacu II [address] [place] [address] Uriel Chavarria MD Discharge Disposition: Discharged to home or Selfcare 05/31/2024 Travel 05/30/2024 Travel 04/29/2024 Refill [facility] - Endocrinology [facility] [address] [place] [address] Salome Larsen MD Medication Refill from Last [...] Date Smoking Tobacco: Every Day Cigarettes 0.5 27.1 Started: 06/14/1997 Smokeless Tobacco: Never Tobacco Cessation:Ready to Q uit: Yes; Counseling Given: Not Answered Alcohol Use Standard Drinks/Week Comments Not Currently 0 (1 standard drink = 0.6 oz pur e alcohol) Sexually Active Control Partners Comments Yes Male Comments No Sex and Gender Information Value Date Recorded Sex Assigned at Not on file Legal Sex Female 10:57 AM RESTAURANT GREETER Gender Identity Not on file Sexual Orientation Not on file Last Filed Vital Signs Vital Sign Reading Time Taken Comments Blood Pressure 120/88 05/31/2024 9:46 AM RESTAURANT GREETER Pulse 98 05/31/2024 9:46 AM RESTAURANT GREETER Temperature 37 ??C (98.6 ??F) 05/31/2024 9:46 AM RESTAURANT GREETER Respiratory Rate 15 05/31/2024 9:46 AM RESTAURANT GREETER Oxygen Saturation 100% 05/31/2024 9:46 AM RESTAURANT GREETER Inhaled Oxygen Concentration - - Weight 83.5 kg (184 lb) 05/30/2024 8:54 AM RESTAURANT GREETER Height 157.5 cm (5' 2 ) 05/30/2024 8:54 AM RESTAURANT GREETER Body Mass Index 33.65 05/30/2024 8:54 AM RESTAURANT GREETER Plan of Treatment Upcoming Encounters Date Type Department Care Team (Late st Contact Info) Description 08/08/2024 3:45 PM RESTAURANT GREETER Office Visit [facility] - Endocrinology - [place] [address] [place] [address] Salome Larsen MD [address] [address] Health Maintenance Due Date Last Done Comments [...] Comments POCT GLUCOSE Routine 05/31/2024 9:21 AM RESTAURANT GREETER COLONOSCOPY 05/31/2024 8:41 AM RESTAURANT GREETER EGD - NORMAL EXAM COLONOSCOPY - POOR PREPARATION , NEGATIVE EXAM Special Needs DM, PREG test - Dx Pancreatitis EGD 05/31/2024 8:41 AM RESTAURANT GREETER EGD - NORMAL EXAM COLONOSCOPY - POOR PREPARATION , NEGATIVE EXAM Special Needs DM, PREG test - Dx Pancreatitis POCT GLUCOSE Routine 05/31/2024 8:28 AM RESTAURANT GREETER POCT GLUCOSE Routine 05/31/2024 8:05 AM RESTAURANT GREETER POCT URINE HCG () Routine 05/31/2024 7:50 AM RESTAURANT GREETER GI LAB IMAGING - EGD Routine 05/31/2024 7:45 AM RESTAURANT GREETER GI IMAGING - COLONOSCOPY Routine 05/31/2024 7:45 AM RESTAURANT GREETER MAGALIE SCREENING BILATERAL DIGITAL W CAD W [...] Results * POCT Glucose (05/31/2024 9:21 AM RESTAURANT GREETER) Only the most recent of3 resultswithin the time period is included. GLUCOSE,BEDSIDE POCT 84 70 - 99 mg/dL 05/31/2024 9:27 AM RESTAURANT GREETER [facility] Blood 05/31/2024 9:21 AM RESTAURANT GREETER 05/31/2024 9:27 AM RESTAURANT GREETER us None Provider POINT OF CARE TESTING Final Resu lt [facility] [address] [place] [address] * POCT Urine HCG () (05/31/2024 7:50 AM RESTAURANT GREETER) Pathologist [facility] POC URINE Negative POC URINE CONTROL [place] Urine 05/31/2024 7:50 AM RESTAURANT GREETER Uriel Chavarria MD POINT OF CARE TESTING (MAURICIO BELLE) Final Result * GI LAB IMAGING - EGD (05/31/2024 7:45 AM RESTAURANT GREETER) Uriel Chavarria MD [facility] DIAGNOSTIC ORDERABLES Final Result * GI IMAGING - COLONOSCOPY (05/31/2024 7:45 AM RESTAURANT GREETER) Uriel DALLAS DIAGNOSTIC ORDERABLES Final Result * [...] Ray Owens M.D. ? ll/penrad:11/01/2023 16:47:35 ?? Naval Aircrewman Tactical Helicopter(s): Lisa ??RT Elizabeth(R)(M), [facility] letter sent: Normal Exam ?? [place] location: [facility] BI-RADS: 1 Negative Procedure Note Ray [...] exam. Electronically signed by: Ray sales/pablo:11/01/2023 16:47:35 Naval Aircrewman Tactical Helicopter(s): RT Precious(R)(M), [facility] letter sent: Normal Exam [place] location: [facility] BI-RADS: 1 Negative Ari CELAYA IMG MAMMO ORDERABLES Final Result * (ABNORMAL) HEMOGLOBIN A1C W/ ESTIMATED GLUCOSE (09/07/2023 11:52 AM CDT) HGB-A1C 10.2(H) 4.0 - 6.0 % 09/07/2023 1:14 PM CDT [facility] Est Average Glucose 246.0 mg/dL 09/07/2023 1:14 PM CDT [facility] Blood Venipuncture / Unknown 09/07/2023 11:52 AM CDT 09/07/2023 12:37 PM CDT Narrative [facility] - 09/07/2023 1:14 PM CDT HEMOGLOBIN A1C: DIABETIC PATIENTS: WELL-CONTROLLED: ?? 6.2 - 7.0 INTERMEDIATE WELL-CONTROLLED: ??7.0 - 9.0 POORLY-CONTROLLED: ??>9.0 Wally Sandoval MD CHEMISTRY ORDERABLES Linda christianson Result [facility] [address] [place] [address] * (ABNORMAL) CMP (COMPREHENSIVE METABOLIC PANEL) (09/07/2023 11:52 AM CDT) SODIUM 136 136 - 145 mmol/L 09/07/2023 1:14 PM CDT [facility] POTASSIUM 3.7 3.5 - 5.1 mmol/L 09/07/2023 1:14 PM CDT [facility] CHLORIDE 105 98 - 107 mmol/L 09/07/2023 1:14 PM CDT [facility] CO2, VENOUS 24 22 - 30 mmol/L 09/07/2023 1:14 PM CDT [facility] ANION GAP 10.7 <18.0 mmol/L 09/07/2023 1:14 PM CDT [facility] GLUCOSE 276(H) 70 - 99 mg/dL 09/07/2023 1:14 PM CDT [facility] BUN 11 5 - 18 mg/dL 09/07/2023 1:14 PM CDT [facility] CREATININE, BLOOD 0.72 0.60 - 1.00 mg/dL 09/07/2023 1:14 PM CDT [facility] BUN/CREATININE RATIO 15 12 - 20 ratio 09/07/2023 1:14 PM CDT [facility] TOTAL PROTEIN 7.0 6.3 - 8.2 g/dL 09/07/2023 1:14 PM CDT [facility] ALBUMIN 3.6 3.5 - 5.0 g/dL 09/07/2023 1:14 PM CDT [facility] A/G RATIO 1.1 1.0 - 2.2 09/07/2023 1:14 PM CDT [facility] CALCIUM 8.5(L) 8.7 - 10.5 mg/dL 09/07/2023 1:14 PM CDT [facility] T BILI 0.3 0.2 - 1.2 mg/dL 09/07/2023 1:14 PM CDT [facility] SGOT (AST) 16 5 - 34 U/L 09/07/2023 1:14 PM CDT [facility] SGPT (ALT) 19 0 - 55 U/L 09/07/2023 1:14 PM CDT [facility] ALKALINE PHOSPHATASE 98 40 - 150 U/L 09/07/2023 1:14 PM CDT [facility] IS THE PATIENT REQUIRED TO BE FASTING? No 09/07/2023 1:14 PM CDT [facility] GFR, ESTIMATED >60 >=60 09/07/2023 1:14 PM CDT [facility] Comment: Creatinine Clearance is the preferred criteria for selecting drug dose adjustments in renally impaired patients. ??The GFR is provided as additional pertinent clinical information. GFR is reported in mL/min/1.73 sq m. Calculation based on the Chronic Kidney Disease Epidemiology Collaboration (CKD- EPI) equation refit without adjustment for race. GFR, EST. >60 >=60 024 1:14 PM CDT [facility] GFR, EST. NONAFRICAN >60 >=60 09/07/2023 1:14 PM CDT [facility] Blood Venipuncture / Unknown 09/07/2023 11:52 AM CDT 09/07/2023 12:37 PM CDT us Wally Sandoval MD CHEMISTRY ORDERABLES Linda l Result [facility] [address] [place] [address] from Last 3 Months or Most Recently Relevant to Health Maintenance Insurance [place] [id number] Care Teams Ship Superintendent Relationship Specialty Start Date End Date Ari West PA [address] [place] [id number] PCP - General Physician Respiratory Therapy Director 07/21/23 Salome Larsen MD [address] [address] Consulting Physician Endocrinology 09/01/23 Wally Sandoval MD [address] [place] [address] Consulting Physician Gastroenterology 09/08/23 Nabeel Prado MD [address] [place] [address] Consulting Physician Neurology 03/07/24
--- OUTSIDE RECORDS SUMMARY | 2024-07-06 11:36 | XMS_ITS | CONTINUITY OF CARE DOCUMENT ---
Author Name vincent kaur Address Unknown Organization [facility] Office Address [address] [place] [address] Phone [phone] Care Team Providers Care Riveting Machine Operator Automatic Name Role Phone Nicole DAVIS, Jazmine Richardson Unavailable TAMARA JHAVERI Unavailable [phone] INSURANCE PROVIDERS Payer name Policy type / Coverage type [place] red constitution party ID [facility] (MEDICARE) Medicare [id number]
--- OUTSIDE RECORDS SUMMARY | 2024-07-06 11:36 | XMS_ITS | Referral Summary ---
Author Organization [facility] Address [address] [place] [address] Care Team Providers Care Capsule Machine Operator Name Role Phone Thao Dove [...] (05/24/2019): Added automatically from request for surgery [id number] Assessment & Plan (10/13/2019 4:42 AM CDT): [...] in inpatient rehab. Received ativan while at [facility]. -Patient without etoh in 5 days, likely no need to etoh withdrawal scale at this time -Thiamine 100 mg, folic acid 1 mg every day -Social work consulted for rehab/ abstinence resources Assessment & Plan (03/15/2019 2:18 PM CDT): Continues to drink 1/5 of Vodka per day. Previously attempted outpatient rehab but is interested in inpatient rehab. Received ativan while at [facility]. -Patient without etoh in 5 days, [...] sugars in the 300s while admitted at [facility]. Blood sugar here is 95 but in the setting of poor PO intake. -A1c 5.3 -Monitor sugars Assessment & Plan (03/15/2019 12:24 PM CDT): Patient reports having blood sugars in the 300s while admitted at [facility]. Blood sugar here is 95 but in the setting of poor PO intake. -A1c 5.3 -Monitor sugars History of DVT (deep vein thrombosis) 03/15/2019 Assessment & Plan (03/20/2019 3:55 PM CDT): Reported on paperwork from [facility] [place], however patient has no recall of having prior DVT and was not on any outpatient anticoagulation. -On lovenox for ppx Assessment & Plan (03/15/2019 3:34 AM CDT): -On lovenox Immunizations Name Administration Dates Next Due Td, adsorbed 06/14/2015 Social History Tobacco Use Types Packs/Day Years Used Date Smoking Tobacco: Every Day Cigarettes 0.5 24.1 Started: 2000 Smokeless Tobacco: Never Alcohol Use Standard Drinks/Week Comments Not Currently 0 (1 standard drink = 0.6 oz pure alcohol) None for 20 days, pt reports heavy drinker from 7210-2144 Comments No Sex and Gender Information Value [...] on file Medical Devices Implanted Type Area Cloth Baler Device Identifier Shelf Expiration Date Model / Serial / Lot Graft Bone Fibula Shaft Allograft Frozen 60mmx5+ Mm - [id number] - [id number] Implanted:Qty: 1 on 10/02/2019 by Nicolas Wolf MD at [facility] Bone Left: Humerus Musculoskeletal Transplant 07/29/2023 [id number] / [id number] / 0 Synthes 241.901 Lcp Combi Philos [id number] 3 Hole Shaft Lock Compression - [id number] Implanted:Qty: 1 on 10/02/2019 by Nicolas Wolf MD at [facility] Left: Humerus Synthes I 241.901 / / Synthes 204.828 3.5mm 6mm 28mm 2.5mm Self Tap Small Hexagonal Socket Low Profile - [id number] Implanted:Qty: 3 on 10/02/2019 by Nicolas Wolf MD at [facility] Left: Humerus Synthes I 204.828 / / Synthes 212.136 3.5mm 2.9mm 46mm Self Tap Lock Stardrive Conical Head T15 Full - [id number] Implanted:Qty: 2 on 10/02/2019 by Nicolas Wolf MD at [facility] Left: Humerus Synthes I 212.136 / / Synthes 212.115 3.5mm 2.9mm 36mm Self Tap Lock Stardrive Conical Head T15 Full - [id number] Implanted:Qty: 2 on 10/02/2019 by Nicolas Wolf MD at [facility] Left: Humerus Synthes I 212.115 / / Synthes 212.116 3.5mm 2.9mm 38mm Self Tap Lock Stardrive Conical Head T15 Full - [id number] Implanted:Qty: 1 on 10/02/2019 by Nicolas Wolf MD at [facility] Left: Humerus Synthes I 212.116 / / Synthes 212.117 3.5mm 2.9mm 40mm Self Tap Lock Stardrive Conical Head T15 Full - [id number] Implanted:Qty: 2 on 10/02/2019 by Nicolas Wolf MD at [facility] Left: Humerus Synthes I 212.117 / / Synthes 212.118 3.5mm 2.9mm 42mm Self Tap Lock Stardrive Conical Head Full Thread - [id number] Implanted:Qty: 1 on 10/02/2019 by Nicolas Wolf MD at [facility] Left: Humerus Synthes I 212.118 / / Synthes 212.113 3.5mm 2.9mm 34mm Self Tap Lock Stardrive Conical Head Pelvis T15 - [id number] Implanted:Qty: 1 on 10/02/2019 by Nicolas Wolf MD at [facility] Left: Humerus Synthes I 212.113 / / Insurance [facility] [employer] [facility] [employer] Advance Directives For more information, please contact: [phone] * Full Code (Latest Code Status on [...] 6:58 AM 06/16/2019 10:28 AM Care Teams Capsule Machine Operator Relationship Specialty Start Date End Date Thao Dove MD PCP - General 03/14/19
--- OUTSIDE RECORDS SUMMARY | 2024-07-06 11:36 | XMS_ITS | Clinical Summary ---
Author Organization [facility] Address [address] [place] [address] Care Team Providers Care Custodial Manager Name Role Phone Thao Dove MD [...] (05/24/2019): Added automatically from request for surgery [id number] Assessment & Plan (10/13/2019 4:42 AM CDT): [...] in inpatient rehab. Received ativan while at [facility]. -Patient without etoh in 5 days, likely no need to etoh withdrawal scale at this time -Thiamine 100 mg, folic acid 1 mg every day -Social work consulted for rehab/ abstinence resources Assessment & Plan (03/15/2019 2:18 PM CDT): Continues to drink 1/5 of Vodka per day. Previously attempted outpatient rehab but is interested in inpatient rehab. Received ativan while at [facility]. -Patient without etoh in 5 days, likely [...] sugars in the 300s while admitted at [facility]. Blood sugar here is 95 but in the setting of poor PO intake. -A1c 5.3 -Monitor sugars Assessment & Plan (03/15/2019 12:24 PM CDT): Patient reports having blood sugars in the 300s while admitted at [facility]. Blood sugar here is 95 but in the setting of poor PO intake. -A1c 5.3 -Monitor sugars History of DVT (deep vein thrombosis) 03/15/2019 Assessment & Plan (03/20/2019 3:55 PM CDT): Reported on paperwork from [facility] in [place], however patient has no recall [...] 20 days, pt reports heavy drinker from [id number] Comments No Sex and Gender Information Value [...] on file Medical Devices Implanted Type Area Etl Informatica Architect Device Identifier Shelf Expiration Date Model / Serial / Lot Graft Bone Fibula Shaft Allograft Frozen 60mmx5+ Mm - [id number] - [id number] Implanted:Qty: 1 on 10/02/2019 by Nicolas Wolf MD at [facility] Bone Left: Humerus Musculoskeletal Transplant 07/29/2023 060786 / [id number] / 0 Synthes 241.901 Lcp Combi Philos [id number] 3 Hole Shaft Lock Compression - [id number] Implanted:Qty: 1 on 10/02/2019 by Nicolas Wolf MD at [facility] Left: Humerus Synthes I 241.901 / / Synthes 204.828 3.5mm 6mm 28mm 2.5mm Self Tap Small Hexagonal Socket Low Profile - [id number] Implanted:Qty: 3 on 10/02/2019 by Nicolas Wolf MD at [facility] Left: Humerus Synthes I 204.828 / / Synthes 212.136 3.5mm 2.9mm 46mm Self Tap Lock Stardrive Conical Head T15 Full - [id number] Implanted:Qty: 2 on 10/02/2019 by Nicolas Wolf MD at [facility] Left: Humerus Synthes I 212.136 / / Synthes 212.115 3.5mm 2.9mm 36mm Self Tap Lock Stardrive Conical Head T15 Full - [id number] Implanted:Qty: 2 on 10/02/2019 by Nicolas Wolf MD at [facility] Left: Humerus Synthes I 212.115 / / Synthes 212.116 3.5mm 2.9mm 38mm Self Tap Lock Stardrive Conical Head T15 Full - [id number] Implanted:Qty: 1 on 10/02/2019 by Nicolas Wolf MD at [facility] Left: Humerus Synthes I 212.116 / / Synthes 212.117 3.5mm 2.9mm 40mm Self Tap Lock Stardrive Conical Head T15 Full - [id number] Implanted:Qty: 2 on 10/02/2019 by Nicolas Wolf MD at [facility] Left: Humerus Synthes I 212.117 / / Synthes 212.118 3.5mm 2.9mm 42mm Self Tap Lock Stardrive Conical Head Full Thread - [id number] Implanted:Qty: 1 on 10/02/2019 by Nicolas Wolf MD at [facility] Left: Humerus Synthes I 212.118 / / Synthes 212.113 3.5mm 2.9mm 34mm Self Tap Lock Stardrive Conical Head Pelvis T15 - [id number] Implanted:Qty: 1 on 10/02/2019 by Nicolas Wolf MD at [facility] Left: Humerus Synthes I 212.113 / / Insurance Advance Directives For more information, please contact: [phone] * Full Code (Latest Code Status on [...] 6:58 AM 06/16/2019 10:28 AM Care Teams Custodial Manager Relationship Specialty Start Date End Date Thao Dove MD PCP - General 03/14/19
== END 2024-06-28 18:10 | DRG 720 ==
LOC: ANHED 02:53 → ANHICU 08:28
PROVIDERS: Internal Medicine; Admitting Provider Internal Medicine; Emergency Provider Emergency Medicine; Visit Provider Internal Medicine
DX: A41.9 Sepsis, unspecified organism (principal); R65.21 Severe sepsis with septic shock; T38.3X2A Poisoning by insulin and oral hypoglycemic [antidiabetic] drugs, intentional self-harm, initial encounter; Z91.51 Personal history of suicidal behavior; E10.649 Type 1 diabetes mellitus with hypoglycemia without coma; Z79.4 Long term (current) use of insulin; F41.9 Anxiety disorder, unspecified; F31.9 Bipolar disorder, unspecified; K86.1 Other chronic pancreatitis; Z86.718 Personal history of other venous thrombosis and embolism; E78.5 Hyperlipidemia, unspecified; E10.40 Type 1 diabetes mellitus with diabetic neuropathy, unspecified; Z87.891 Personal history of nicotine dependence; J96.00 Acute respiratory failure, unspecified whether with hypoxia or hypercapnia; E87.6 Hypokalemia; J18.9 Pneumonia, unspecified organism; E10.65 Type 1 diabetes mellitus with hyperglycemia
CPT/HCPCS: 31500; 36415; 36556; 36600; 70496; 70498; 71045; 80048; 80053; 80179; 80307; 81001; 81025; 82077; 82375; 82805; 82948; 83050; 83540; 83550; 83735; 84145; 84443; 85018; 85025; 85027; 85610; 85730; 87040; 87070; 87205; 87637; 87641; 93005; 94002; 94003; 96361; 96365; 96366; 96367; 96375; 97161; 97165; 99285; A9270; C1751; G0378; J0330; J0613; J1610; J1650; J1720; J1815; J1940; J2250; J2470; J2543; J3010; J3475; J3480; J7030; Q9967

== ENCOUNTER 2024-07-15 16:11 | Emergency (ER) | payer BC, SELFPAY ==
[2024-07-15] VITALS (39 sets, daily range): BP systolic 98–116; BP diastolic 58–89; PULSE 70–103; RESP 13–21; TEMP 36.6; O2SAT 92–100
--- NOTE | ~2024-07-15 | CT_ITS ---
EXAMINATION: CT brain wo con DATE: 07/15/2024 19:54 INDICATION: ALTERED MENTAL STATUS . TECHNIQUE: Computed tomography (CT) of the head was performed without intravenous contrast. The mA wa s adjusted according to patient size. Iterative reconstruction technique was employed. The dose-lengt h product was 681.00 mGy-cm. COMPARISON: 06/25/2024. FINDINGS: No acute intracranial hemorrhage or extra-axial fluid collection. No hydrocephalus, mass, or herniation. No acute ischemic infarct. Unremarkable dural venous sinus attenuation. No acute osseous abnormality. Left maxillary mucosal thickening, the remaining aerated spaces are clear. IMPRESSION: No acute intracranial process. Reviewed, dictated and finalized at location K. R GRINDER
--- NOTE | ~2024-07-15 | XR_ITS ---
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 RESULT: Lines, tubes, and devices: Left proximal humeral fixation hardware. Lungs and pleura: Significant leftward rotation. No focal consolidation, pleural effusion, or pneumo thorax. Cardiomediastinal silhouette: Stable, given interval differences in technique. Other: No acute osseous or upper abdominal finding. IMPRESSION: No acute cardiopulmonary process. Reviewed, dictated and finalized at location K. AMATION WORKER
--- OUTSIDE RECORDS SUMMARY | 2024-07-15 16:13 | XMS_ITS | Encounter Summary ---
Author Organization [facility] Healthcare Address [address] [place] [address] Care Team Providers Care Salesperson Men'S Furnishings Name Role Phone Thao Dove MD Primary Care Provider Encounter Details Date Type Department Care Team (Late st Contact Info) Description 05/03/2019 Telephone [facility] Radiology [address] [address] Carmen Hendrix RN Social History Tobacco Use [...] on filedocumented in this encounter Care Teams Salesperson Men'S Furnishings Relationship Specialty Start Date End Date Thao Dove MD PCP - General 03/14/19 documented as of this encounter
--- OUTSIDE RECORDS SUMMARY | 2024-07-15 16:14 | XMS_ITS | Clinical Summary ---
Author Organization [facility] Address [address] [place] [address] Phone Care Team Providers Care It Data Architect Name Role Phone Ari West Primary Care Provider [phone] Salome Larsen MD Unavailable Wally Sandoval MD Unavailable [phone] Nabeel Prado MD Unavailable [phone] Allergies No known active allergies Medications hydrOXYzine [...] not apply route. Active Continuous Blood Gluc Scientific Aide (Dexcom G7 Scientific Aide) Device Check blood sugar before each meal and at bedtime 1 Each 09/13/19 24 Active Insulin Pen Needle (Pen [place]) 32G X 4 MM Misc 4 times a day 400 Each 3 09/13/19 24 Active Pancrelipase, Qni-Xerl-Lhhb , (CREON 03505) [id number] Capsule DR Particles Take 1 Capsule by [...] 30 mL 1 09/13/19 24 2024 Discontinued Active Problems Problem Noted Date Diagnosed Date Neuropathy 09/01/2023 ADHD 09/01/2023 Anxiety 09/01/2023 Bipolar disorder 09/01/2023 Diabetes mellitus 09/01/2023 Encounters Date Type Department Care Team Description 06/21/2024 Telephone [facility] - Gastroenterology - [address] [place] [address] Uriel Chavarria MD Procedure 06/16/2024 Refill [facility] - Endocrinology - [address] [place] [address] Salome Larsen MD Medication Refill 06/13/2024 Refill [facility] - Endocrinology - [address] [place] [address] Salome Larsen MD Medication Refill 05/31/2024 8:41 AM COMPUTER OPERATIONS SPECIALIST Anesthesia Event [facility] Gi Lab Periop [address] [place] [address] Raúl Hester APRN, CRNA 05/31/2024 8:30 AM COMPUTER OPERATIONS SPECIALIST - 05/31/2024 9:30 AM COMPUTER OPERATIONS SPECIALIST [facility] Periop [address] [place] [address] Uriel Chavarria MD EGD - NORMAL EGD 05/31/2024 7:55 AM COMPUTER OPERATIONS SPECIALIST Ancillary [facility] Main [address] [place] [address] Uriel Chavarria MD 05/31/2024 7:50 AM COMPUTER OPERATIONS SPECIALIST Ancillary [facility] Main [address] [place] [address] Uriel Chavarria MD 05/31/2024 7:43 AM COMPUTER OPERATIONS SPECIALIST - 05/31/2024 10:00 AM COMPUTER OPERATIONS SPECIALIST Hospital [facility] Preop/Pacu II [address] [place] [address] Uriel Chavarria MD Discharge Disposition: Discharged to home or Selfcare 05/31/2024 Travel 05/30/2024 Travel 04/29/2024 Refill [facility] [address] [place] [address] Salome Larsen MD Medication Refill from Last [...] on file Legal Sex Female 10:57 AM COMPUTER OPERATIONS SPECIALIST Gender Identity Not on file Sexual Orientation Not on file Last Filed Vital Signs Vital Sign Reading Time Taken Comments Blood Pressure 120/88 05/31/2024 9:46 AM COMPUTER OPERATIONS SPECIALIST Pulse 98 05/31/2024 9:46 AM COMPUTER OPERATIONS SPECIALIST Temperature 37 ??C (98.6 ??F) 05/31/2024 9:46 AM COMPUTER OPERATIONS SPECIALIST Respiratory Rate 15 05/31/2024 9:46 AM COMPUTER OPERATIONS SPECIALIST Oxygen Saturation 100% 05/31/2024 9:46 AM COMPUTER OPERATIONS SPECIALIST Inhaled Oxygen Concentration - - Weight 83.5 kg (184 lb) 05/30/2024 8:54 AM COMPUTER OPERATIONS SPECIALIST Height 157.5 cm (5' 2 ) 05/30/2024 8:54 AM COMPUTER OPERATIONS SPECIALIST Body Mass Index 33.65 05/30/2024 8:54 AM COMPUTER OPERATIONS SPECIALIST Plan of Treatment Upcoming Encounters Date Type Department Care Team (Late st Contact Info) Description 08/08/2024 3:45 PM COMPUTER OPERATIONS SPECIALIST Office Visit [facility] - Endocrinology - [address] [place] [address] Salome Larsen MD [address] [address] Health Maintenance Due Date Last Done Comments Diabetes: Eye Exam 1982 Hepatitis C Virus (HCV) Screening 1982 TdaP Immunization 1982 Hepatitis B Immunization (1 of 3 - 19+ 3-dose series) 2001 Pap Smear 2003 Cervical Cancer Screening (CCS) 2012 HPV/Cotest 2012 Pneumococcal Immunization Combined (2 of 2 - PCV) 03/27/2022 03/27/2021 Influenza Immunization (#1) 2024 SARS-COV-2 Immunization (2 - season) 2024 05/30/2021 Diabetes: Hemoglobin A1c 03/09/2024 [...] Comments POCT GLUCOSE Routine 05/31/2024 9:21 AM COMPUTER OPERATIONS SPECIALIST COLONOSCOPY 05/31/2024 8:41 AM COMPUTER OPERATIONS SPECIALIST EGD - NORMAL EXAM COLONOSCOPY - POOR PREPARATION , NEGATIVE EXAM Special Needs DM, PREG test - Dx Pancreatitis EGD 05/31/2024 8:41 AM COMPUTER OPERATIONS SPECIALIST EGD - NORMAL EXAM COLONOSCOPY - POOR PREPARATION , NEGATIVE EXAM Special Needs DM, PREG test - Dx Pancreatitis POCT GLUCOSE Routine 05/31/2024 8:28 AM COMPUTER OPERATIONS SPECIALIST POCT GLUCOSE Routine 05/31/2024 8:05 AM COMPUTER OPERATIONS SPECIALIST POCT URINE HCG () Routine 05/31/2024 7:50 AM COMPUTER OPERATIONS SPECIALIST GI LAB IMAGING - EGD Routine 05/31/2024 7:45 AM COMPUTER OPERATIONS SPECIALIST GI IMAGING - COLONOSCOPY Routine 05/31/2024 7:45 AM COMPUTER OPERATIONS SPECIALIST MAGALIE SCREENING BILATERAL DIGITAL W CAD W [...] Results * POCT Glucose (05/31/2024 9:21 AM COMPUTER OPERATIONS SPECIALIST) Only the most recent of3 resultswithin the time period is included. GLUCOSE,BEDSIDE POCT 84 70 - 99 mg/dL 05/31/2024 9:27 AM COMPUTER OPERATIONS SPECIALIST [facility] Blood 05/31/2024 9:21 AM COMPUTER OPERATIONS SPECIALIST 05/31/2024 9:27 AM COMPUTER OPERATIONS SPECIALIST us None Provider POINT OF CARE TESTING Final Resu lt [facility] [address] [place] [address] * POCT Urine HCG () (05/31/2024 7:50 AM COMPUTER OPERATIONS SPECIALIST) POC URINE Negative POC URINE CONTROL Application Integration Specialist Pass Urine 05/31/2024 7:50 AM COMPUTER OPERATIONS SPECIALIST Uriel Chavarria MD POINT OF CARE TESTING (MAURICIO BELLE) Final Result * GI LAB IMAGING - EGD (05/31/2024 7:45 AM COMPUTER OPERATIONS SPECIALIST) Uriel Chavarria MD [facility] DIAGNOSTIC ORDERABLES Final Result * GI IMAGING - COLONOSCOPY (05/31/2024 7:45 AM COMPUTER OPERATIONS SPECIALIST) us Uriel [place] DIAGNOSTIC ORDERABLES Final Result * [...] Ray Owens M.D. ? ll/penrad:11/01/2023 16:47:35 ?? Assembler Knife(s): Lisa ??RT Elizabeth(R)(M), [facility] letter sent: Normal Exam ?? Reading location: [facility] BI-RADS: 1 Negative Procedure Note Ray [...] exam. Electronically signed by: Ray sales/pablo:11/01/2023 16:47:35 Assembler Knife(s): RT Precious(R)(M), [facility] letter sent: Normal Exam Reading location: [facility] BI-RADS: 1 Negative us Ari CELAYA IMG MAMMO ORDERABLES Final Result * (ABNORMAL) HEMOGLOBIN A1C W/ ESTIMATED GLUCOSE (09/07/2023 11:52 AM CDT) HGB-A1C 10.2(H) 4.0 - 6.0 % 09/07/2023 1:14 PM CDT [facility] Est Average Glucose 246.0 mg/dL 09/07/2023 1:14 PM CDT [facility] Blood Venipuncture / Unknown 09/07/2023 11:52 AM CDT 09/07/2023 12:37 PM CDT Narrative [facility] - 09/07/2023 1:14 PM CDT HEMOGLOBIN A1C: DIABETIC PATIENTS: WELL-CONTROLLED: ?? 6.2 - 7.0 INTERMEDIATE WELL-CONTROLLED: ??7.0 - 9.0 POORLY-CONTROLLED: ??>9.0 us Wally Sandoval MD CHEMISTRY ORDERABLES Linda christianson Result [facility] [address] [place] [address] * (ABNORMAL) CMP (COMPREHENSIVE METABOLIC PANEL) (09/07/2023 11:52 AM CDT) SODIUM 136 136 - 145 mmol/L 09/07/2023 1:14 PM CDT [facility] POTASSIUM 3.7 3.5 - 5.1 mmol/L 09/07/2023 1:14 PM CDT [facility] CHLORIDE 105 98 - 107 mmol/L 09/07/2023 1:14 PM CDT [facility] CO2, VENOUS 24 22 - 30 mmol/L 09/07/2023 1:14 PM CDT [facility] ANION GAP 10.7 <18.0 mmol/L 09/07/2023 1:14 PM CDT [facility] GLUCOSE 276(H) 70 - 99 mg/dL 09/07/2023 1:14 PM CDT [facility] BUN 11 5 - 18 mg/dL 09/07/2023 1:14 PM CDT [facility] CREATININE, BLOOD 0.72 0.60 - 1.00 mg/dL 09/07/2023 1:14 PM CDT [facility] BUN/CREATININE RATIO 15 12 - 20 ratio 09/07/2023 1:14 PM CDT [facility] TOTAL PROTEIN 7.0 6.3 - 8.2 g/dL 09/07/2023 1:14 PM CDT [facility] ALBUMIN 3.6 3.5 - 5.0 g/dL 09/07/2023 1:14 PM CDT [facility] A/G RATIO 1.1 1.0 - 2.2 09/07/2023 1:14 PM CDT [facility] CALCIUM 8.5(L) 8.7 - 10.5 mg/dL 09/07/2023 1:14 PM CDT [facility] T BILI 0.3 0.2 - 1.2 mg/dL 09/07/2023 1:14 PM CDT [facility] SGOT (AST) 16 5 - 34 U/L 09/07/2023 1:14 PM CDT [facility] SGPT (ALT) 19 0 - 55 U/L 09/07/2023 1:14 PM CDT [facility] ALKALINE PHOSPHATASE 98 40 - 150 U/L 09/07/2023 1:14 PM CDT [facility] IS THE PATIENT REQUIRED TO BE FASTING? No 09/07/2023 1:14 PM CDT [facility] GFR, ESTIMATED >60 >=60 09/07/2023 1:14 PM CDT [facility] Comment: Creatinine Clearance is the preferred criteria for selecting drug dose adjustments in renally impaired patients. ??The GFR is provided as additional pertinent clinical information. GFR is reported in mL/min/1.73 sq m. Calculation based on the Chronic Kidney Disease Epidemiology Collaboration (CKD- EPI) equation refit without adjustment for race. GFR, EST. >60 >=60 024 1:14 PM CDT [facility] GFR, EST. NONAFRICAN >60 >=60 09/07/2023 1:14 PM CDT [facility] Blood Venipuncture / Unknown 09/07/2023 11:52 AM CDT 09/07/2023 12:37 PM CDT us Wally Sandoval MD CHEMISTRY ORDERABLES Linda l Result [facility] [address] [place] [address] from Last 3 Months or Most Recently Relevant to Health Maintenance Insurance [place] [id number] Care Teams It Data Architect Relationship Specialty Start Date End Date Ari West PA [address] [place] [address] PCP - General Physician Global Mobility Specialist 07/21/23 Salome Larsen MD [address] [phone] Consulting Physician Endocrinology 09/01/23 Wally Sandoval MD [address] [place] [address] Consulting Physician Gastroenterology 09/08/23 Nabeel Prado MD [address] [place] [phone] Consulting Physician Neurology 03/07/24
--- OUTSIDE RECORDS SUMMARY | 2024-07-15 16:14 | XMS_ITS | Referral Summary ---
Author Organization [facility] Address [address] [place] [address] Care Team Providers Care Reservations And Ticketing Agent Name Role Phone Thao Dove MD Primary [...] (05/24/2019): Added automatically from request for surgery [id number] Assessment & Plan (10/13/2019 4:42 AM CDT): [...] in inpatient rehab. Received ativan while at [facility]. -Patient without etoh in 5 days, likely no need to etoh withdrawal scale at this time -Thiamine 100 mg, folic acid 1 mg every day -Social work consulted for rehab/ abstinence resources Assessment & Plan (03/15/2019 2:18 PM CDT): Continues to drink 1/5 of Vodka per day. Previously attempted outpatient rehab but is interested in inpatient rehab. Received ativan while at [facility]. -Patient without etoh in 5 days, [...] sugars in the 300s while admitted at [place]. Blood sugar here is 95 but in the setting of poor PO intake. -A1c 5.3 -Monitor sugars Assessment & Plan (03/15/2019 12:24 PM CDT): Patient reports having blood sugars in the 300s while admitted at [place]. Blood sugar here is 95 but in the setting of poor PO intake. -A1c 5.3 -Monitor sugars History of DVT (deep vein thrombosis) 03/15/2019 Assessment & Plan (03/20/2019 3:55 PM CDT): Reported on paperwork from [facility] in [place], however patient has no [...] 20 days, pt reports heavy drinker from [phone] Comments No Sex and Gender Information Value [...] on file Medical Devices Implanted Type Area Industrial Chemistry Teacher Device Identifier Shelf Expiration Date Model / Serial / Lot Graft Bone Fibula Shaft Allograft Frozen 60mmx5+ Mm - [id number] - [id number] Implanted:Qty: 1 on 10/02/2019 by Nicolas Wolf MD at [facility] Bone Left: Humerus Musculoskeletal Transplant 07/29/2023 [id number] / [id number] / 0 Synthes 241.901 Lcp Combi Philos [id number] 3 Hole Shaft Lock Compression - [id number] Implanted:Qty: 1 on 10/02/2019 by Nicolas Wolf MD at [facility] Left: Humerus Synthes I 241.901 / / Synthes 204.828 3.5mm 6mm 28mm 2.5mm Self Tap Small Hexagonal Socket Low Profile - [id number] Implanted:Qty: 3 on 10/02/2019 by Nicolas Wolf MD at [facility] Left: Humerus Synthes I 204.828 / / Synthes 212.136 3.5mm 2.9mm 46mm Self Tap Lock Stardrive Conical Head T15 Full - [id number] Implanted:Qty: 2 on 10/02/2019 by Nicolas Wolf MD at [facility] Left: Humerus Synthes I 212.136 / / Synthes 212.115 3.5mm 2.9mm 36mm Self Tap Lock Stardrive Conical Head T15 Full - [id number] Implanted:Qty: 2 on 10/02/2019 by Nicolas Wolf MD at [facility] Left: Humerus Synthes I 212.115 / / Synthes 212.116 3.5mm 2.9mm 38mm Self Tap Lock Stardrive Conical Head T15 Full - [id number] Implanted:Qty: 1 on 10/02/2019 by Nicolas Wolf MD at [facility] Left: Humerus Synthes I 212.116 / / Synthes 212.117 3.5mm 2.9mm 40mm Self Tap Lock Stardrive Conical Head T15 Full - [id number] Implanted:Qty: 2 on 10/02/2019 by Nicolas Wolf MD at [facility] Left: Humerus Synthes I 212.117 / / Synthes 212.118 3.5mm 2.9mm 42mm Self Tap Lock Stardrive Conical Head Full Thread - [id number] Implanted:Qty: 1 on 10/02/2019 by Nicolas Wolf MD at [facility] Left: Humerus Synthes I 212.118 / / Synthes 212.113 3.5mm 2.9mm 34mm Self Tap Lock Stardrive Conical Head Pelvis T15 - [id number] Implanted:Qty: 1 on 10/02/2019 by Nicolas Wolf MD at [facility] Left: Humerus Synthes I 212.113 / / Insurance [facility] Advance Directives For more information, please contact: [phone] * Full Code (Latest Code Status on [...] 6:58 AM 06/16/2019 10:28 AM Care Teams Reservations And Ticketing Agent Relationship Specialty Start Date End Date Thao Dove MD PCP - General 03/14/19
--- OUTSIDE RECORDS SUMMARY | 2024-07-15 16:14 | XMS_ITS | Clinical Summary ---
Author Organization [facility] Address [address] [place] [address] Care Team Providers Care Sociology Faculty Member Name Role Phone Thao Dove MD Primary [...] (05/24/2019): Added automatically from request for surgery [id number] Assessment & Plan (10/13/2019 4:42 AM CDT): [...] in inpatient rehab. Received ativan while at [facility]. -Patient without etoh in 5 days, likely no need to etoh withdrawal scale at this time -Thiamine 100 mg, folic acid 1 mg every day -Social work consulted for rehab/ abstinence resources Assessment & Plan (03/15/2019 2:18 PM CDT): Continues to drink 1/5 of Vodka per day. Previously attempted outpatient rehab but is interested in inpatient rehab. Received ativan while at [facility]. -Patient without etoh in 5 days, [...] sugars in the 300s while admitted at [place]. Blood sugar here is 95 but in the setting of poor PO intake. -A1c 5.3 -Monitor sugars Assessment & Plan (03/15/2019 12:24 PM CDT): Patient reports having blood sugars in the 300s while admitted at [place]. Blood sugar here is 95 but in the setting of poor PO intake. -A1c 5.3 -Monitor sugars History of DVT (deep vein thrombosis) 03/15/2019 Assessment & Plan (03/20/2019 3:55 PM CDT): Reported on paperwork from [facility] in [place], however patient has no [...] 20 days, pt reports heavy drinker from [phone] Comments No Sex and Gender Information Value [...] on file Medical Devices Implanted Type Area Tool Polisher Device Identifier Shelf Expiration Date Model / Serial / Lot Graft Bone Fibula Shaft Allograft Frozen 60mmx5+ Mm - [id number] - [id number] Implanted:Qty: 1 on 10/02/2019 by Nicolas Wolf MD at [facility] Bone Left: Humerus Musculoskeletal Transplant 07/29/2023 [id number] / [id number] / 0 Synthes 241.901 Lcp Combi Philos [id number] 3 Hole Shaft Lock Compression - [id number] Implanted:Qty: 1 on 10/02/2019 by Nicolas Wolf MD at [facility] Left: Humerus Synthes I 241.901 / / Synthes 204.828 3.5mm 6mm 28mm 2.5mm Self Tap Small Hexagonal Socket Low Profile - [id number] Implanted:Qty: 3 on 10/02/2019 by Nicolas Wolf MD at [facility] Left: Humerus Synthes I 204.828 / / Synthes 212.136 3.5mm 2.9mm 46mm Self Tap Lock Stardrive Conical Head T15 Full - [id number] Implanted:Qty: 2 on 10/02/2019 by Nicolas Wolf MD at [facility] Left: Humerus Synthes I 212.136 / / Synthes 212.115 3.5mm 2.9mm 36mm Self Tap Lock Stardrive Conical Head T15 Full - [id number] Implanted:Qty: 2 on 10/02/2019 by Nicolas Wolf MD at [facility] Left: Humerus Synthes I 212.115 / / Synthes 212.116 3.5mm 2.9mm 38mm Self Tap Lock Stardrive Conical Head T15 Full - [id number] Implanted:Qty: 1 on 10/02/2019 by Nicolas Wolf MD at [facility] Left: Humerus Synthes I 212.116 / / Synthes 212.117 3.5mm 2.9mm 40mm Self Tap Lock Stardrive Conical Head T15 Full - [id number] Implanted:Qty: 2 on 10/02/2019 by Nicolas Wolf MD at [facility] Left: Humerus Synthes I 212.117 / / Synthes 212.118 3.5mm 2.9mm 42mm Self Tap Lock Stardrive Conical Head Full Thread - [id number] Implanted:Qty: 1 on 10/02/2019 by Nicolas Wolf MD at [facility] Left: Humerus Synthes I 212.118 / / Synthes 212.113 3.5mm 2.9mm 34mm Self Tap Lock Stardrive Conical Head Pelvis T15 - [id number] Implanted:Qty: 1 on 10/02/2019 by Nicolas Wolf MD at [facility] Left: Humerus Synthes I 212.113 / / Insurance Advance Directives For more information, please contact: [phone] * Full Code (Latest Code Status on [...] 6:58 AM 06/16/2019 10:28 AM Care Teams Sociology Faculty Member Relationship Specialty Start Date End Date Thao Dove MD PCP - General 03/14/19
--- OUTSIDE RECORDS SUMMARY | 2024-07-15 16:14 | XMS_ITS | CONTINUITY OF CARE DOCUMENT ---
Author Name vincent kaur Address Unknown Organization [facility] Address [address] [place] [address] Phone [phone] Care Team Providers Care Infant Babysitter Name Role Phone Nicole DAVIS, Jazmine Richardson Unavailable [phone] TAMARA JHAVERI Unavailable [phone] INSURANCE PROVIDERS Payer name Policy type / Coverage type [place] red democrat [id number] (MEDICARE) Medicare [id number]
--- OUTSIDE RECORDS SUMMARY | 2024-07-15 16:14 | XMS_ITS | Data Portability ---
Author Organization [place] [facility], Main Office Address [address] [place] [address] Care Team Providers Care Corn Shredder Name Role Phone ARI WEST Primary Care Provider [phone] ARI WEST Referring Provider FERN LARRY Primary Care Provider [phone] Assessment Encounter Date Assessment Date Assessment LastModified [...] or questions. [email or web address] Not available 10/29/2023 11:44:05 07/06/2024 07/06/2024 I have reconciled the patient's medications post their discharge from inpatient facility. [email or web address] Not available 07/06/2024 12:43:04 Plan of Treatment Reminders Order Date Submit Date Provider Last Modified By Organization Details Last Modified Time Details Appointments Follow Up 30 2024 09:00A M YOMI Warren Not available Not available Not available Follow Up 15 2024 10:30A M YOMI Warren Not available Not available Not available Lab vitamin D, 25-hydrox y, total, serum [address] (Lab), [address] [place], [address], 02/29/2024 08:39:11 glycohemo globin, total, blood [address] (Lab), [address] [place], [address], 02/29/2024 08:39:11 drug screen, urine 2023 024 [facility] (Lab), [address] [place], [address], 06/13/2024 01:53:34 rapid flu (A+B) 2024 025 [facility], [address] [place] [address], [address], 07/13/2024 17:38:05 Referral sleep medicine referral - Please eval and treat. snores , wakes up gasping for air frequentl y. Please call patient to schedule an appointme nt. Thank you. 2023 024 [email or web address] Solomon Tony MD, [address] [place], [address], 03/21/2024 09:04:40 Procedures None recorded. Surgeries None recorded. Imaging XR, hand, 3 or more view 2023 024 [email or web address] [facility] [place], [address], [place], [address], 10/29/2023 13:54:12 Medication Orders carbidopa 25 mg-levodo pa 100 mg tablet 2023 024 [email or web address] 00 [facility], [address] [facility], [place], [place], [id number], 07/06/2024 12:55:23 buspirone 10 mg tablet 2023 024 ELISHA [facility] #32159, [address] [place], [id number], 02/22/2024 11:25:54 dextroamp hetamine- amphetami ne 30 mg tablet [address] [facility]09177, [address] [place], [place], [id number], 07/13/2024 16:33:28 dextroamp hetamine- amphetami ne ER 30 mg 24hr capsule,e xtend release [address] [facility]21159, [address] [place], [place], [id number], 07/13/2024 16:33:32 ondansetr on 4 mg disintegr ating tablet 2023 024 [email or web address] 00 [facility] #38355, [address] [place], [place], [id number], 06/12/2024 13:14:56 Cipro 500 mg tablet [address] [facility] #75857, [address] [place], [place], [id number], 07/13/2024 16:33:15 hydroxyzi ne HCl 10 mg tablet 2023 024 [email or web address] 00 [facility] #70079, [address] [place], [place], [id number], 06/12/2024 13:14:57 dextroamp hetamine sulfate 30 mg tablet 2023 024 [email or web address] [facility] #74845, [address] [place], [place], [id number], 06/15/2024 08:09:59 Medrol (Asif) 4 mg tablets in a dose pack 2024 025 [facility] #80401, [address] [facility], [place], [place], [id number], 07/13/2024 16:53:39 Patient TargetsNo targets recorded. Patient Instructions Encounter Date Encounter Id Patient Instructions Last Modified By Organization Details Last Modified Time 07/06/2024 [id number] Thank you for your visit to our office today. We would like to request that you reach out to your referring or previous provider and request that they send us a Summary of Care in electronic form, so that we may have it on file in your medical record. At your visit, we had the medical records we needed to provide you with the best possible care; however, for insurance purposes, an electronic Summary of Care is beneficial. Thank you for your assistance in obtaining this information and we look forward to providing continued care to you. Please review your medication list from the Summary of Care for this visit. If there are any differences from what you are currently taking at home, please call us to discuss. Not available 07/06/2024 12:43:04 Homebound Status : {{Patient has an inability to leave the home without a taxing effort and assistance from another person Does not meet homebound status}} Required Home Health Services: {{none fdc, physical therapy, occupational therapy fdc, physical therapy fdc}} Durable Medical Equipment needed: {{cane walker wal ker with seat manual wheelchair bedsid e commode oxygen}} Billing Guidelines CPT code 87550- Transitional Care Management services with moderate medical decision complexity (lhdg-vk-mcad visit within 14 days of discharge). CPT code 20130- Transitional Care Management services with high medical decision complexity (dqpd-cl-fezy visit within 7 days of discharge). Not available 07/06/2024 12:43:04 Reason for Referral Sleep Medicine Referral for Snoring Please eval and treat. snores , wakes up gasping for air frequently. Please call patient to schedule an appointment. Thank you. Referring Physician: Ari West, Family Medicine, Encounter Date: 02/22/2024 Results Created Date Observation Date Name Description Value Unit Range Abnormal Flag Note LastModifiedBy Organization Detail LastModifiedTime 07/13/19 25 07/13/2024 rapid flu (A+B) Flu A negati ve Not Available [facility]_[address], [place], [address], 07/13/2024 16:53:23 10/29/19 24 XR, hand, 3 or more view No observ ation record ed. [email or web address] [facility] [place] [address], [place], [address], 10/29/2023 11:41:38 Result Notes None recorded. Problems Name Problem SNOMED Code Status Onset Date Resolution Date Notes Provider Name and Address Organization Details Recorded Time Uncontrol led type 1 diabetes mellitus 423789306 Active 2021 Not Available [facility] 3 00:58:39 Type 1 diabetes mellitus 98820927 Active 2021 Not Available [facility] 3 00:58:39 Diabetes mellitus 05086008 Active 2021 Not Available [facility] 3 00:58:39 Neuropath y 742592250 Active 2022 Fern Portillo MD [address], [place], [address] , [employer] 3 11:04:16 Attention deficit hyperacti vity disorder, predomina ntly inattenti ve type 86572049 Active 2022 is off adderall , seeing a psychiatr ist who has diagnosed her with bipolar disorder . YOMI Warren [address], [address], [place], [address] , [employer] 5 16:56:25 Type 2 diabetes mellitus without complicat ion 789417004 Active 2022 Fern Portillo MD [address], [place], [address] , [employer] 3 15:41:36 Anxiety 14198582 Active 2022 Fern Portillo MD [address], [facility] [address], [place], [address] , [facility] [employer] [facility] 3 10:23:08 Inspirato ry wheezing 02556638 Active 2022 Fern Portillo MD [address], [facility] [address], [place], [address] , [facility] [employer] [facility] 3 10:21:21 Chronic abdominal pain 619654794 Active 2022 Fern Portillo MD [address], [place], [address] , [facility] [employer] [facility] 3 16:46:39 Bipolar disorder 51526496 Active 2022 Fern Portillo MD [address], [address], [address] , [facility] [employer] [facility] 3 09:27:57 Diabetic periphera l neuropath y 023552652 Active 2022 Fern Portillo MD [address], [facility] [address], [place], [address] , [facility] [facility] 3 10:07:34 Pain in right hand 14133171727 9109 Active 2022 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 Ba CATERING 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 null, [facility] 3 14:04:09 Closed fracture thumb proximal phalanx 707681402 Active 2022 YOMI Weaver [address], [place], [address] , [facility] [employer] [facility] 3 15:19:36 Vitamin D deficienc y 26345536 Active 2022 Mervat Ba CATERING DRIVER null, [place] [facility] 3 08:51:39 Osteoporo sis 02007293 Active 2022 Mervat Ba CATERING DRIVER null, [facility] 3 08:53:08 Osteopeni a 364785516 Active 2022 Fern Portillo MD [address], [address], [place], [address] , [facility] 3 15:24:51 Nicotine dependenc e 09862634 Active 2023 YOMI Warren [address], [address], [place], [address] , [facility] 4 10:08:05 Type 1 diabetes mellitus without complicat ion 706410374 Active 2023 Isai Mclean RN null, [facility] 4 15:09:03 Vertigo 091559995 Active 2023 Isai Mclean RN null, [facility] 4 08:20:58 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 Isai Mclean RN null, [facility] 4 16:19:03 Pain of right wrist 67865599332 9100 Active 2023 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 Ba CNA null, [facility] 4 10:39:22 Closed fracture of neck of fifth metacarpa l bone of right hand 09140865627 404459 Active 2023 YOMI Weaver [address], [address], [place], [address] , [facility] 4 13:21:50 Screening for malignant neoplasm of cervix Active 2023 YOMI Warren [address], [address], [place], [address] , [facility] 4 09:33:45 Screening for malignant neoplasm of breast Active 2023 YOMI Warren [address], [address], [place], [address] , [facility] 4 09:34:51 Edema 400229807 Active 2023 YOMI Warren [address], [place], [address] , [facility] [employer] [facility] 4 09:45:51 Candidias is of skin 71585899 Active 2023 YOMI Warren [address], [place], [address] , [facility] [employer] [facility] 4 09:38:55 Pityriasi s versicolo r 17288380 Active 2023 YOMI Warren [address], [place], [address] , [facility] 4 09:40:36 Periodic limb movement disorder 263576701 Active 2023 YOMI Warren [address], [place], [address] , [facility] [employer] [facility] 4 11:21:45 Snoring 93394754 Active 2023 YOMI Warren [address], [place], [address] , [facility] [employer] [facility] 4 11:25:02 Gastritis 4789314 Active 2023 YOMI Warren [address], [place], [address] , [facility] [employer] [facility] 4 13:09:48 Attention deficit hyperacti vity disorder 203543631 Active 2024 Kathya Hunter RN null, [place] [facility] [place] [facility] 5 10:02:08 Cough 37520320 Active 2024 ARIELLE Escudero [address], [place], [address] , [facility] 5 16:46:45 Problem Notes Documentation Provider Name and Address Organization Details Recorded Time Orthopedic Surgeon Consult Note : S_[facility] ? ? [address], [place] [address]XCOTSHVOE, Susan R (id #[id number], : 1980) Documents sent via fax will [...] received this fax in error, please visit [email or web address] to notify the sender and confirm that the information will be destroyed. If you do not have internet access, please call to notify the sender and confirm that the information will be destroyed. Thank you for your attention and cooperation. [ID:[id number]] , Date: 4RE: Benedicto Olguin MD, I [...] patient. Sincerely, Electronically Signed by: YOMI WEAVER, [facility] Assessment/PlanBy x-ray and exam the patient is [...] the office as needed Isai Mclean RN [facility], [employer] [facility] [employer] [facility] [employer] 10/29/2023 11:59:30 Procedures Surgical History Date Name Laterality Status Provider Name and Address Organization Details Recorded Time Transitional_C are_Management completed Joyce Red RN [facility] 07/06/2024 12:43:05 delivery completed Mervat Ba CNA [place] [employer] [facility] 05/04/2023 14:03:08 procedure on humerus completed Mervat Ba CNA [place] [employer] [facility] [employer] [facility] 05/04/2023 14:03:39 Imaging Results Imaging Date Name Status LastModified by Organiz ation Details LastModified Time 10/29/2023 XR, hand, 3 or more view completed [email or web address] [facility] Emma Bowman [address] [facility] [address], [place], [address], 10/29/2023 11:41:38 Procedure Notes None recorded. Medical Equipment None Reported. Allergies No known drug allergies Medications Name Sig Start Date Stop Date Status Note LastModified by Organization Details LastModified Time hydroxyzin e pamoate 100 mg capsule TAKE 1 CAPSULE BY MOUTH AT BEDTIME 01/21 completed Not Available Not Available Not Available nicotine 14 mg/24 hr daily transderma l patch Apply 1 patch every day by transderm al route for 14 days. active Not Available Not Available No t Available citalopram 40 mg tablet Take 1 tablet every day by oral route. 02/21 completed Not Available Not Available Not Available atorvastat in 10 mg tablet TAKE 1 TABLET BY MOUTH AT BEDTIME 05/04 completed Not Available Not Available Not Available naltrexone 50 mg tablet TAKE 1 TABLET BY MOUTH DAILY 05/04 completed Not Available Not Available Not Available Medrol (Asif) 4 mg tablets in a dose pack Take as directed 2024 active Not Available Not Available Not Avai lable prednisone 20 mg tablet TAKE 2 TABLETS BY MOUTH EVERY DAY FOR 5 DAYS 09/16 completed Not Available Not Available Not Available dextroamph etamine-am phetamine 10 mg tablet active Not Available Not Available Not Available alendronat e 70 mg tablet Take 1 tablet every week by oral route for 30 days. 07/13 completed Not Available Not Available Not Available Lantus U-100 Insulin 100 unit/mL subcutaneo us solution ADMINISTE R 30 UNITS UNDER THE SKIN AT BEDTIME active Not Available Not Available No t Available oxcarbazep ine 300 mg tablet 01/21 completed Not Available Not Available Not Available ciprofloxa malika 500 mg tablet Take 1 tablet every 12 hours by oral route for 10 days. 07/13 completed Not Available Not Available Not Available quetiapine 100 mg tablet TAKE 1 TABLET BY MOUTH EVERY DAY AT BEDTIME 05/04 completed Not Available Not Available Not Available Depo-Medro l 80 mg/mL suspension for injection Take 1 mL by injection route. 07/13 completed Not Available Not Available Not Available dextroamph etamine-am phetamine 30 mg tablet 1 tab po around 2 pm daily 07/13 completed Not Available Not Available Not Available dextroamph etamine-am phetamine ER 20 mg 24hr capsule,ex tend release TAKE 1 CAPSULE BY MOUTH EVERY DAY 10/08 completed Not Available Not Available Not Available nicotine (polacrile x) 4 mg gum Chew 1 piece of gum every 2 hours by oral route for 30 days. 2023 active Not Available Not Available Not Avai lable nystatin 100,000 unit/gram topical cream APPLY TO THE AFFECTED AREA(S) BY TOPICAL ROUTE 2 TIMES PER DAY 07/13 completed Not Available Not Available Not Available buspirone 10 mg tablet TAKE 3 TABLETs BY MOUTH Twice DAILY after food active Not Available Not Available No t Available dextroamph etamine-am phetamine 20 mg tablet Take 1 tablet every day by oral route for 30 days. 12/06 completed Not Available Not Available Not Available benztropin e 1 mg tablet TAKE 1 TABLET BY MOUTH AT BEDTIME 10/08 completed Not Available Not Available Not Available nicotine 21 mg/24 hr daily transderma l patch Apply 1 patch every day by transderm al route for 14 days. 10/27 completed Not Available Not Available Not Available gabapentin 300 mg capsule 10/08 completed Not Available Not Available Not Available folic acid 1 mg tablet TAKE 1 TABLET BY MOUTH DAILY active Not Available Not Available No t Available hydroxyzin e HCl 25 mg tablet TAKE 1 TABLET BY MOUTH THREE TIMES DAILY NEEDED 01/21 completed Not Available Not Available Not Available lisinopril 5 mg tablet TAKE 1 TABLET BY MOUTH AT BEDTIME 05/04 completed Not Available Not Available Not Available ergocalcif therese (vitamin D2) 1,250 mcg (50,000 unit) capsule TAKE 1 CAPSULE BY MOUTH ONCE A WEEK DIRECTED 10/27 completed Not Available Not Available Not Available insulin lispro (U-100) 100 unit/mL subcutaneo us solution INJECT 10 UNITS SUBCUTANE OUSLY 4 TIMES DAILY BEFORE MEAL(S) 07/13 completed Not Available Not Available Not Available albuterol sulfate HFA 90 mcg/actuat ion aerosol inhaler INHALE 2 PUFFS BY MOUTH EVERY 4 HOURS NEEDED FOR SHORTNESS OF BREATH AND FOR WHEEZING. DO NOT OVER USE!! active Not Available Not Available No t Available dextroamph etamine-am phetamine ER 30 mg 24hr capsule,ex tend release Take 1 capsule every day by oral route in the morning for 30 days. 07/13 completed Not Available Not Available Not Available carbidopa 25 mg-levodop a 100 mg tablet 2 tabs po at bedtime every day 07/06 completed she does not think she needs it , Not Available Not Available Not Available ketoconazo le 2 % topical cream APPLY TO THE AFFECTED AREA(S) trunk BY TOPICAL ROUTE ONCE DAILY 07/13 completed Not Available Not Available Not Available hydroxyzin e HCl 10 mg tablet 1 to 2 tabs po up to 3 times per day active Not Available Not Available No t Available ondansetro n 4 mg disintegra ting tablet Place 1 tablet 3 times a day by transling ual route for 30 days. active Not Available Not Available No t Available fluticason e propionate 50 mcg/actuat ion nasal spray,susp ension SHAKE LIQUID AND USE 1 SPRAY IN EACH NOSTRIL TWICE DAILY FLONASE 09/16 completed Not Available Not Available Not Available loratadine 10 mg tablet TAKE 1 TABLET BY MOUTH EVERY DAY NEEDED FOR ALLERGY SYMPTOMS 09/16 completed Not Available Not Available Not Available amoxicilli n 875 mg-potassi um clavulanat e 125 mg tablet 06/12 completed Not Available Not Available Not Available nicotine 7 mg/24 hr daily transderma l patch Apply 1 patch every day by transderm al route for 14 days. 10/08 completed Not Available Not Available Not Available buspirone 15 mg tablet TAKE 1 TABLET BY MOUTH THREE TIMES DAILY 02/21 completed Not Available Not Available Not Available hydroxyzin e pamoate 25 mg capsule Take 1 capsule by mouth three times daily as needed 07/13 completed Not Available Not Available Not Available insulin lispro (U-100) 100 unit/mL subcutaneo us pen INJECT 10 UNITS BEFORE EACH MEAL- CORRECTIO NAL FACTOR INSULIN 1:25 IF > 150 MG/DL, UP TO 60 UNITS/DAY active Not Available Not Available No t Available aripiprazo le 30 mg tablet TAKE 1 TABLET BY MOUTH DAILY 09/16 completed Not Available Not Available Not Available nicotine (polacrile x) 4 mg buccal lozenge Take 1 tablet every 2 hours by oral route for 30 days. 2023 active Not Available Not Available Not Avai lable ciprofloxa malika 0.3 %-dexameth asone 0.1 % ear drops,susp ension INSTILL 4 DROPS IN EACH AFFECTED EAR TWICE DAILY FOR 7 DAYS 09/16 completed Not Available Not Available Not Available bupropion HCl XL 150 mg 24 hr tablet, extended release TAKE 1 TABLET BY MOUTH DAILY DIRECTED 10/08 completed Not Available Not Available Not Available Marcaine (PF) 0.5 % (5 mg/mL) injection solution Take 3 mL by injection route. 07/13 completed Not Available Not Available Not Available duloxetine 30 mg capsule,de layed release TAKE 1 CAPSULE BY MOUTH EVERY DAY FOR 7 DAYS 02/21 completed Not Available Not Available Not Available duloxetine 60 mg capsule,de layed release TAKE 1 CAPSULE BY MOUTH EVERY DAY FOR NERVE PAIN active Not Available Not Available No t Available Flovent HFA 110 mcg/actuat ion aerosol inhaler INHALE 2 PUFFS BY MOUTH TWICE DAILY 11/07 completed Not Available Not Available Not Available ibandronat e 150 mg tablet Take 1 tablet every [...] completed Not Available Not Available Not Available chlorhexid ine gluconate 0.12 % mouthwash active Not Available Not Available No t Available quetiapine 50 mg tablet TAKE 1 TABLET BY MOUTH TWICE DAILY 05/04 completed Not Available Not Available Not Available FeroSul 325 mg (65 mg iron) tablet active Not Available Not Available Not Available Lantus Solostar U-100 Insulin 100 unit/mL (3 mL) subcutaneo us pen INJECT 30 UNITS SUBCUTANE OUSLY NIGHTLY active Not Available Not Available No t Available Creon 12,000-38, 000-60,000 unit capsule,de layed release TAKE 2 CAPSULES BY MOUTH THREE TIMES DAILY WITH MEALS 10/08 completed Not Available Not Available Not Available Vitamin B-1 (mononitra te) 100 mg tablet TAKE 1 TABLET BY MOUTH EVERY MORNING 07/13 completed Not Available Not Available Not Available TRUEplus Insulin 0.5 mL 30 gauge x 5/16 syringe USE TO INJECT INSULIN 5 TIMES DAILY active Not Available Not Available No t Available Creon 36,000 unit-114,0 00 unit-180,0 00 unit capsule,de layed release Take 1 capsule 3 times a day by oral route before meals for 90 days. active Not Available Not Available No t Available dextroamph etamine sulfate 30 mg tablet Take 1 tablet every day by oral route for 30 days. 06/15 completed Not Available Not Available Not Available TRUEplus Pen Needle 32 gauge x 5/32 USE 4 TIMES DAILY DIRECTED active Not Available Not Available No t Available nicotine (polacrile x) 4 mg buccal mini lozenge TAKE 1 TABLET BY MOUTH EVERY 2 HOURS FOR 30 DAYS 02/21 completed Not Available Not Available Not Available Dexcom G6 Transmitte r device CHANGE EVERY 3 MONTHS active Not Available Not Available No t Available Dexcom G7 Hardwood Sawyer USE TO CHECK BLOOD SUGAR BEFORE EACH MEAL AND AT BEDTIME active Not Available Not Available No t Available Dexcom G7 Sensor device CHANGE EVERY 10 DAYS active Not Available Not Available No t Available Vitals Date Recorded Body height Provider Name an d Address Organization Details Last Updated DateTime 10/29/2023 160.02 cm Stacey Smith Lorrie [facility] [employer] 10/29/2023 11:12:59 Date Recorded Body mass index (BMI) Body weight Provider Name and Address Organization Details Last Updated DateTime 10/29/2023 30.1 kg/m2 39449.7 g Stacey Smith [place] [employer] [facility] [employer] 10/29/2023 11:13:07 Date Recorded Body height Provider Name an d Address Organization Details Last Updated DateTime 02/22/2024 160.02 cm Kathya Hunter RN [facility] [employer] 02/22/2024 10:57:03 Date Recorded Body mass index (BMI) Body weight Provider Name and Address Organization Details Last Updated DateTime 02/22/2024 34.2 kg/m2 79879.33 g Kathya Hunter RN [facility] [employer] 02/22/2024 10:58:14 Date Recorded Body temperature Provider Name a nd Address Organization Details Last Updated DateTime 02/22/2024 98.8 [degF] Kathya Hunter RN [facility] [employer] [facility] 02/22/2024 11:00:54 Date Recorded Heart rate Provider Name an d Address Organization Details Last Updated DateTime 02/22/2024 96 /min Kathya Hunter RN [facility] [employer] [facility] 02/22/2024 11:01:05 Date Recorded Respiratory rate Provider Name a nd Address Organization Details Last Updated DateTime 02/22/2024 16 /min Kathya Hunter RN [facility] [employer] [facility] 02/22/2024 11:01:07 Date Recorded Oxygen saturation Oxygen saturation in Arterial blood by Pulse oximetry Provider Name and Address Organization Details Last Updated DateTime 02/22/2024 99 % 99 % Kathya Hunter RN [facility] [employer] [facility] 02/22/2024 11:01:10 Date Recorded Body height Provider Name an d Address Organization Details Last Updated DateTime 06/12/2024 160.02 cm Kathya Hunter RN [facility] [employer] [facility] 06/12/2024 12:44:35 Date Recorded Body mass index (BMI) Body weight Provider Name and Address Organization Details Last Updated DateTime 06/12/2024 36.8 kg/m2 30059.21 g Kathya Hunter RN [facility] [employer] [facility] 06/12/2024 12:46:07 Date Recorded Body temperature Provider Name a nd Address Organization Details Last Updated DateTime 06/12/2024 98.3 [degF] Kathya Hunter RN [facility] [employer] [facility] 06/12/2024 12:51:42 Date Recorded Heart rate Provider Name an d Address Organization Details Last Updated DateTime 06/12/2024 102 /min Kathya Hunter RN [facility] [employer] [facility] 06/12/2024 12:51:48 Date Recorded Oxygen saturation Oxygen saturation in Arterial blood by Pulse oximetry Provider Name and Address Organization Details Last Updated DateTime 06/12/2024 99 % 99 % Kathya Hunter RN [facility] [employer] [facility] 06/12/2024 12:51:50 Date Recorded Body height Provider Name an d Address Organization Details Last Updated DateTime 07/06/2024 160.02 cm Joyce Red RN [facility] 07/06/2024 12:44:36 Date Recorded Body mass index (BMI) Body weight Provider Name and Address Organization Details Last Updated DateTime 07/06/2024 35.3 kg/m2 01374.28 g SINA Heredia [facility] [employer] [facility] 07/06/2024 12:45:01 Date Recorded Body temperature Provider Name a nd Address Organization Details Last Updated DateTime 07/06/2024 98.6 [degF] SINA Heredia [facility] [employer] [facility] 07/06/2024 12:45:17 Date Recorded Oxygen saturation Oxygen saturation in Arterial blood by Pulse oximetry Provider Name and Address Organization Details Last Updated DateTime 07/06/2024 98 % 98 % Joyce Red RN [facility] [employer] [facility] 07/06/2024 12:45:39 Date Recorded Heart rate Provider Name an d Address Organization Details Last Updated DateTime 07/06/2024 118 /min SINA Heredia [facility] [employer] [facility] 07/06/2024 12:45:42 Date Recorded Body height Provider Name an d Address Organization Details Last Updated DateTime 07/13/2024 160.02 cm Dayana Adams RN [facility] [employer] [facility] 07/13/2024 16:32:14 Date Recorded Body mass index (BMI) Body weight Provider Name and Address Organization Details Last Updated DateTime 07/13/2024 35.6 kg/m2 63168.12 g Dayana Adams RN [facility] [employer] [facility] 07/13/2024 16:32:21 Date Recorded Body temperature Provider Name a nd Address Organization Details Last Updated DateTime 07/13/2024 97.9 [degF] Dayana Adams RN [facility] [employer] [facility] 07/13/2024 16:35:30 Date Recorded Respiratory rate Provider Name a nd Address Organization Details Last Updated DateTime 07/13/2024 20 /min Dayana Adams RN [facility] [employer] [facility] 07/13/2024 16:35:44 Date Recorded Pain severity - 0-10 verbal numeric rating [Score] - Reported Provider Name and Address Organization Details Last Updated DateTime 07/13/2024 2 Dayana Adams RN [facility] [employer] [facility] 07/13/2024 16:35:50 Date Recorded Oxygen saturation Oxygen saturation in Arterial blood by Pulse oximetry Provider Name and Address Organization Details Last Updated DateTime 07/13/2024 97 % 97 % Dayana Adams RN [facility] [employer] 07/13/2024 16:35:58 Date Recorded Heart rate Provider Name an d Address Organization Details Last Updated DateTime 07/13/2024 93 /min Dayana Adams RN [employer] [facility] [employer] 07/13/2024 16:36:01 Date Recorded Systolic blood pressure Diastolic blood pressure Provider Name and Address Organization Details Last Updated DateTime 02/22/2024 134 mm[Hg] 80 mm[Hg] Kathya Hunter RN [facility] 02/22/2024 11:02:08 Date Recorded Systolic blood pressure Diastolic blood pressure Provider Name and Address Organization Details Last Updated DateTime 06/12/2024 150 mm[Hg] 90 mm[Hg] Kathya Hunter RN [employer] 06/12/2024 12:53:09 Date Recorded Systolic blood pressure Diastolic blood pressure Provider Name and Address Organization Details Last Updated DateTime 07/06/2024 110 mm[Hg] 70 mm[Hg] Joyce Red RN [employer] [facility] [employer] 07/06/2024 12:46:56 Date Recorded Systolic blood pressure Diastolic blood pressure Provider Name and Address Organization Details Last Updated DateTime 07/13/2024 120 mm[Hg] 68 mm[Hg] Dayana Adams RN [employer] 07/13/2024 16:37:19 Social History Question Answer Notes LastModified by Organizat ion Details LastModified Time Tobacco Smoking Status Current Every Day Smoker Not Available [facility] 08/13/2022 00:57:34 What Is Your Level Of Alcohol Consumption? None [id number] Information not available 08/13/2022 What Is Your Level Of Caffeine Consumption? Moderate [id number] Information not available 08/13/2022 In The 14 Days Before Symptom Onset, Have You Had Close Contact With A Laboratory-confi rmed COVID-19 While That Case Was Ill? No [id number] Information not available 08/13/2022 In The 14 Days Before Symptom Onset, Have You Had Close Contact With A Person Who Is Under Investigation For COVID-19 While That Person Was Ill? No [id number] Information not available 08/13/2022 What Type Of Diet Are You Following? REGULAR MIGRATION.[id number] Information not available 08/13/2022 Have There Been Any Changes To Your Family Or Social Situation? No Information not available 07/13/2024 Where Do You Live? [place]House Information not available 07/13/2024 Do You Have Any Pets? Yes Information not available 07/13/2024 What Is Your Relationship Status? Single MIGRATION.[id number] [id number] Information not available 08/13/2022 Do You Have Smoke And Carbon Monoxide Detectors In Your Home? Yes Information not available 07/13/2024 At What Age Did You Start Smoking Tobacco? 22 MIGRATION.[id number] Information not available 08/13/2022 Are You Passively Exposed To Smoke? Yes Information not available 07/13/2024 Are There Any Smokers In Your House? Yes Information not available 07/13/2024 How Much Tobacco Do You Smoke? 0.5 PPD Information not available 05/04/2023 Do You Use Any Illicit Or Recreational Drugs? No MIGRATION.38506 [id number] Information not available 08/13/2022 How Many Years Have You Smoked Tobacco? 20 Information not available 05/04/2023 Have You Recently Traveled Abroad? No MIGRATION.37671 48412 Information not available 08/13/2022 Do You Have Any Dietary Restrictions? No MIGRATION.64521 23908 Information not available 08/13/2022 Sex: Female Functional Status Question Answer Note LastModified by Organizat ion Details LastModified Time What is your exercise level? Occasional [id number] Information not available 08/13/2022 Mental Status None recorded. Family History Relationship Description Onset Age of this Age Resolved Age Notes LastModified by Organization Details LastModified Time Father Diabetes mellitus [id number] Not available 08/13/2022 00:57:41 Mother Diabetes mellitus [id number].595 [id number] Not available 08/13/2022 00:57:41 Mother Malignant tumor of lung MIGRATION.059 [id number] Not available 08/13/2022 00:57:41 Paternal Grandfather Malignant tumor of colon MIGRATION.552 [id number] Not available 08/13/2022 00:57:41 Mother Heart disease [email or web address] Not available 2022 14:00:49 Mother Family history of malignant neoplasm [email or web address] Not available 2022 14:01:03 Mother Hypertensive disorder [email or web address] Not available 2022 14:01:19 Mother Kidney disease [email or web address] Not available 2022 14:02:07 Father Blood coagulation disorder [email or web address] Not available 2022 14:01:31 Medical History Condition Response HIGH CHOLESTEROL / HYPERLIPIDEMIA Y DIABETES, TYPE Y GI PROBLEMS Y Gynecological History Statement/Question Response How many [...] SNOMED-CT Code Diagnosis ICD10 Code Diagnosis Note [id number] [facility] Ike janelle [facility] [place] [place] [address] 09/16/2021 00:00:00 09/16/2021 20:27:36 [id number] [facility] [place] [address] [place] [address] 11/07/2021 00:00:00 11/07/2021 15:50:11 [id number] [facility] Sina Connolly [place] [place] [address] 01/21/2022 00:00:00 01/21/2022 19:44:28 [id number] Fern Portillo MD [facility] Sina Connolly [place] [place] [address] 10/08/2022 09:59:45 10/08/2022 10:23:03 Attention deficit hyperactivity disorder, predominantly inattentive type 33290070 F90.0 Will increase adderall to 30 ER generic [id number] Fern Portillo MD [facility] [address] [place] [address] 01/07/2023 10:06:17 01/07/2023 10:30:50 Inspiratory wheezing 48449759 R06.2 Attention deficit hyperactivity disorder, predominantly inattentive type 48920354 F90.0 continue dextroamph etamine 30 mg ER and will add IR 10 mg at 2 pm. Neuropathy 065998870 G62 .9 [id number] YOMI Weaver [facility] [place] [address] [place] [address] 05/04/2023 13:41:49 05/04/2023 15:30:56 Pain in right hand 2081101870 66775 M79.641 Closed fra cture thumb proximal phalanx 312461130 S62.511A [id number] YOMI Weaver [facility] [place] [address] [place] [address] 05/25/2023 14:13:30 05/25/2023 15:29:03 Closed fracture thumb proximal phalanx 831491353 S62.511D Pain in right hand 43758 06945 13630 M79.465 [id number] YOMI Warren [facility] [address] [facility] [place] [address] 06/02/2023 15:42:19 06/02/2023 16:25:17 Neuropathy 858504496 G62.9 Attention deficit hyperactivity disorder, predominantly inattentive type 99724296 F90.0 Anxiety 07229154 F41.9 Bipolar disorder 8419039 4 F31.9 Diabetes mellitus 299550 09 E11.9 E13.42 Type 2 hector betes mellitus without complication 829648828 E11.9 [id number] YOMI Weaver [facility] [place] [address] [place] [address] 07/09/2023 10:07:14 07/09/2023 11:05:43 Closed fracture thumb proximal phalanx 683260510 S62.511D Pain in right hand 80080 97456 70781 M79.978 [id number] YOMI Weaver [facility] [place] [address] [place] [address] 08/10/2023 14:19:28 08/10/2023 15:14:30 Closed fracture thumb proximal phalanx 687436011 S62.511D Pain in right hand 42294 46768 37321 M79.100 [id number] YOMI Weaver [facility] [place] [address] [place] [address] 09/03/2023 10:35:43 09/03/2023 11:37:22 Pain of right wrist 2808941001 33720 M25.531 Closed fra cture of neck of fifth metacarpal bone of right hand 0577563370 2953623 S62.336A [id number] YOMI Weaver [facility] [place] [address] [place] [address] 09/14/2023 13:54:54 09/14/2023 14:52:32 Closed fracture of neck of fifth metacarpal bone of right hand 9167268465 5962061 S62.336D Pain in right hand 90045 53523 52024 M79.641 Pain of right wrist 3169 307874 93522 M25.805 [id number] YOMI Warren [facility] Sina [address] [place] [address] 10/28/2023 09:09:33 10/28/2023 09:59:57 Screening for malignant neoplasm of cervix 043841830 Z12.4 Screening for malignant neoplasm of breast 775717914 Z12.39 Attention deficit hyperactivity disorder, predominantly inattentive type 92529425 F90.0 Osteoporosis 40510179 M8 1.0 Edema 217671481 R60.9 Nicotine dependence 5629 4008 F17.200 Anxiety 05446812 F41.9 Bipolar disorder 8554325 4 F31.9 Diabetic p eripheral neuropathy 464320715 E11.40 Diabetes mellitus 865670 09 E11.9 E13.42 Vitamin D deficiency 347 32530 E55.9 [id number] YOMI Weaver [facility] [place] 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 Anxiety 97183860 F41.9 Snoring 07123024 R06.83 Diabetic p eripheral neuropathy 085154914 E11.40 Osteoporosis 26802350 M8 1.0 [id number] YOMI Warren [address] [address] 06/12/2024 12:33:48 06/12/2024 13:19:06 Long-term current use of stimulant 4331412924 8855894 Z79.899 Gastritis 4578748 K29.70 Anxiety 18337490 F41.9 Attention deficit hyperactivity disorder, predominantly inattentive type 18747880 F90.0 Type 2 hector betes mellitus without complication 561149943 E11.9 [id number] YOMI Warren [address] [address] 07/06/2024 12:31:51 07/06/2024 13:07:43 Transition of care 2361041080 105 Z75.8 Bipolar disorder 4510050 4 F31.9 [id number] ARIELLE Escudero [address] [address] 07/13/2024 16:16:14 07/13/2024 16:58:28 [facility] 81648224 R05.9 Health Concerns Section Related Observation LastModified by Organization Detai ls LastModified Time None Recorded Concern Status LastModified by Organization Details LastModified Time None Recorded Advance Directives Directive None Recorded Payers Encounter Date Sequence Insurance Name Policy Number Policy Daily Covered Member ID Daily Member ID Guarantor Name 10/29/2023 1 [facility] [facility] (MEDICAID REPLACEMENT - HMO) [id number] Marisa Lott [id number] Marisa Lott 02/22/2024 1 [place] [facility] [place]ID REPLACEMENT - [place]) [id number] Marisa Lott [id number] Marisa Lott 06/12/2024 1 [place] [facility] [place]ID REPLACEMENT - [place]) [id number] Marisa Lott [id number] Marisa Lott 07/06/2024 1 [place] [facility] [place]ID REPLACEMENT - [place]) [id number] Marisa Lott [id number] Marisa Lott 07/13/2024 1 [place] [facility] ([place]ID REPLACEMENT - [place]) [id number] Marisa Lott [id number] Marisa Lott Notes Date Note Type Note Provider Name and Address Organization Details Recorded Time 10/29/2023 text/html patient returns she is now [...] the healing has progressed. YOMI Weaver [address] [facility], [facility] [address], [place], [address], [facility] [employer] 10/29/2023 11:44:34 02/22/2024 text/html snores , wakes u p gasping for air at times . when sleeping her legs move through the night , disturbing her . YOMI Warren [address], [place], [address], [facility] [employer] [facility] 02/23/2024 11:26:10 06/12/2024 text/html sick , stomach b ug , vomiting , no fever YOMI Warren [address], [place], [address], [employer] [facility] [employer] [facility] 06/19/2024 15:22:13 07/06/2024 text/html took too much insulin by mistake , thought she was taking the long acting insulin . . resp failure . put in pavilion , apparent seizure , intubated , had a PICC line in right neck . off the adderall . YOMI Warren [address], [facility] [address], [place], [address], [facility] [employer] [facility] 07/10/2024 16:56:42 07/13/2024 text/html Marisa Lott is a 44 year old female patient here today with concerns of a cough States she was diagnosed with pneumonia on 06/27/24 via chest XR.[place] better from this then got sick againNotes headaches, fatigue, body achesIs feeling a little better but still has some chest tightness and cough. ARIELLE Escudero [address], [facility] [address], [place], [address], [facility] [employer] [facility] 07/13/2024 16:54:52 OBGyn Episode No OBEpisode recorded.
--- NOTE | 2024-07-15 16:35 | ED_ITS ---
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 (Negative) mg/dL Urine Glucose (UA) (Negative) mg/dL Urine Ketones (Negative) mg/dL Ur Blood (Man) (Negative) Urine Nitrate (Negative) Urine Bilirubin (Negative) Urine Urobilinogen (<2.0) mg/dL Add Ur Microanalysis Leukocyte Esterase Rfl (Negative) LUISA/UL Urine RBC (0-2) /hpf Urine WBC (0-3) /hpf Ur Squamous Epith Cells (Few) /hpf Urine Bacteria /hpf Urine Casts POC Urine HCG, Qual (Negative) Salicylates (2-20) mg/dL Urine Opiates Screen (Negative) Urine Methadone Screen (Negative) Acetaminophen (10-30) ug/mL Ur Barbiturates Screen (Negative) Ur Phencyclidine Scrn (Negative) Ur Amphetamine Screen (Negative) U Benzodiazepines Scrn (Negative) Urine Cocaine Screen (Negative) U Cannabinoids Screen (Negative) Ethyl Alcohol (<10) mg/dL 07/16/24 07/16/24 Range/Units 00:45 02:36 WBC (4.5-10.0) K/mm3 RBC (4.2-5.4) M/mm3 Hgb (12.0-15.0) g/dL Hct (37.0-47.0) % MCV (80-100) fl MCH (26-34) pg MCHC (32-36) g/dl RDW (11.5-14.5) % Plt Count (150-375) k/mm3 MPV (7.4-10.4) fl Immature Gran % (Auto) (0-0.5) % Neut % (Auto) (45.5-73.1) % Lymph % (Auto) (18.3-44.2) % [place] % (Auto) (2.6-8.5) % Eos % (Auto) (0-4.4) % Baso % (Auto) (0.2-1.2) % Lymph # (Auto) (0.9-3.2) K/mm3 [place] # (Auto) (0.1-0.6) K/mm3 Eos # (Auto) (0-0.3) K/mm3 Baso # (Auto) (0.0-0.1) K/mm3 Abs Immat Gran (auto) (0.00-0.031) K/mm3 Absolute Neuts (auto) (1.3-6.7) K/mm3 Absolute Nucleated RBC (0.0-0.012) K/mm3 Nucleated RBC % (0.0-0.2) % PT (11.1-14.7) Seconds INR APTT (22.3-36.8) Seconds Sodium (137-145) mmol/L Potassium (3.4-5.0) mmol/L Chloride (98-107) mmol/L Carbon Dioxide (22-30) mmol/L Anion Gap (4-12) mmol/L BUN (7-17) mg/dL Creatinine (0.7-1.0) mg/dL Estim Creat Clear Calc ml/min Estimated GFR (59 - ) Glucose (65-110) mg/dL POC Capillary Glucose 104 208 H (65-105) mg/dl Lactic Acid (0.7-2.0) mmol/L Calcium (8.4-10.2) mg/dL Total Bilirubin (0.2-1.3) mg/dL AST (14-36) U/L ALT (6-35) U/L Alkaline Phosphatase (38-126) U/L Ammonia (9-30) umol/L Total Creatine Kinase (30-135) U/L Total Protein (6.3-8.2) g/dL Albumin (3.5-5.1) g/dL Lipase (23-300) U/L TSH (0.465-4.680) uIU/mL Urine Color (Yellow) Urine Appearance (Clear) Urine pH (5.0-9.0) Ur Specific [place] (1.001-1.035) Urine Protein (Negative) mg/dL Urine Glucose (UA) (Negative) mg/dL Urine Ketones (Negative) mg/dL Ur Blood (Man) (Negative) Urine Nitrate (Negative) Urine Bilirubin (Negative) Urine Urobilinogen (<2.0) mg/dL Add Ur Microanalysis Leukocyte Esterase Rfl (Negative) LUISA/UL Urine RBC (0-2) /hpf Urine WBC (0-3) /hpf Ur Squamous Epith Cells (Few) /hpf Urine Bacteria /hpf Urine Casts POC Urine HCG, Qual (Negative) Salicylates (2-20) mg/dL Urine Opiates Screen (Negative) Urine Methadone Screen (Negative) Acetaminophen (10-30) ug/mL Ur Barbiturates Screen (Negative) Ur Phencyclidine Scrn (Negative) Ur Amphetamine Screen (Negative) U Benzodiazepines Scrn (Negative) Urine Cocaine Screen (Negative) U Cannabinoids Screen (Negative) Ethyl Alcohol (<10) mg/dL <Soto Earl MD - Last Filed: 07/16/24 04:36> ABG Data ABG results: 07/15/24 17:15 Puncture Site Right brachial ABG pH 7.410 ABG pCO2 47.4 H ABG pO2 83.7 ABG PO2/FiO2 Ratio 3.99 ABG HCO3 29.4 H ABG O2 Saturation 96.3 ABG O2 Content 18.2 ABG Base Excess 3.9 A-a Gradient 9.3 Oxyhemoglobin 92.0 Total Hemoglobin 14.0 O2 Delivery Device Room air O2 Liters/Min Not Reportable FiO2 21 <Harish Vega MD - Last Filed: 07/15/24 19:03> 07/15/24 17:15 Puncture Site Right brachial ABG pH 7.410 ABG pCO2 47.4 H ABG pO2 83.7 ABG PO2/FiO2 Ratio 3.99 ABG HCO3 29.4 H ABG O2 Saturation 96.3 ABG O2 Content 18.2 ABG Base Excess 3.9 A-a Gradient 9.3 Oxyhemoglobin 92.0 Total Hemoglobin 14.0 O2 Delivery Device Room air O2 Liters/Min Not Reportable FiO2 21 <Soto Earl MD - Last Filed: 07/16/24 04:36> Attestation: I personally reviewed and interpreted this ABG as follows: <Harish Vega MD - Last Filed: 07/15/24 19:03> Discharge Plan Discharge Clinical Impression: Alcohol intoxication <Harish Vega MD - Last Filed: 07/15/24 19:03> Patient Disposition: Home, Self-Care <Harish Vega MD - Last Filed: 07/15/24 19:03> Condition: Stable <Harish Vega MD - Last Filed: 07/15/24 19:03> Instructions: Antibiotic Form, Depression (ED), Abuse of Alcohol (DC) <Harish Vega MD - Last Filed: 07/15/24 19:03> Patient Language: Hungarian <Harish Vega MD - Last Filed: 07/15/24 19:03> Prescriptions: No Action pregabalin 100 mg capsule 200 mg PO TID insulin aspart U-100 [Novolog U-100 Insulin aspart] 100 unit/mL Solution 1 sliding scale dose SUBCUT USEASDIRECTD carbidopa-levodopa 25-100 mg tablet See Rx Instructions .ROUTE .COMPLEX Rx Instructions: TAKE 1 TABLET BY MOUTH EVERY NIGHT AT BEDTIME FOR 7 DAYS THEN 2 TABLETS EVERY NIGHT AT BEDTIME albuterol sulfate 90 mcg/actuation HFA aerosol inhaler 90 mcg INHALATION DAILY hydroxyzine pamoate 25 mg capsule 25 mg PO HS duloxetine 60 mg capsule,delayed release(DR/EC) See Rx Instructions .ROUTE .COMPLEX Rx Instructions: TAKE 1 CAPSULE BY MOUTH EVERY DAY FOR NERVE PAIN thiamine HCl (vitamin B1) [Vitamin B-1] 100 mg Tablet 100 mg PO QAM Qty: 30 0RF folic acid 1 mg Tablet 1 mg PO DAILY Qty: 30 0RF ferrous sulfate 325 mg (65 mg iron) tablet 325 mg PO BID Qty: 60 0RF buspirone 10 mg tablet 30 mg PO BID dextroamphetamine sulfate 30 mg tablet 30 mg PO DAILY@1400 dextroamphetamine-amphetamine 30 mg capsule,extended release 24hr 30 mg PO DAILY@0630 hydroxyzine HCl 10 mg tablet 10 mg PO TID PRN (Reason: anxiety) Rx Instructions: TAKE 1 TO 2 TABLETS BY MOUTH UP TO THREE TIMES DAILY insulin glargine [Lantus Solostar U-100 Insulin] 100 unit/mL (3 mL) insulin pen 30 unit SUBCUT QPM insulin lispro 100 unit/mL insulin pen 10 unit SUBCUT TIDWMEAL <Harish Vega MD - Last Filed: 07/15/24 19:03> Follow-up/Referrals: John Leone MD [Physician] - UNKNOWN,DOCTOR [Primary Care Provider] - <Harish Vega MD - Last Filed: 07/15/24 19:03> Time of Disposition: 04:35 <Harish Vega MD - Last Filed: 07/15/24 19:03> 04:35 <Soto Earl MD - Last Filed: 07/16/24 04:36>
--- OUTSIDE RECORDS SUMMARY | 2024-07-15 16:39 | XMS_ITS | Clinical Summary ---
Author Organization [facility] Address [address] [place] [address] Care Team Providers Care Insight Leader Name Role Phone Thao Dove MD Primary [...] (05/24/2019): Added automatically from request for surgery [id number] Assessment & Plan (10/13/2019 4:42 AM CDT): [...] in inpatient rehab. Received ativan while at [facility]. -Patient without etoh in 5 days, likely no need to etoh withdrawal scale at this time -Thiamine 100 mg, folic acid 1 mg every day -Social work consulted for rehab/ abstinence resources Assessment & Plan (03/15/2019 2:18 PM CDT): Continues to drink 1/5 of Vodka per day. Previously attempted outpatient rehab but is interested in inpatient rehab. Received ativan while at [facility]. -Patient without etoh in 5 days, likely [...] sugars in the 300s while admitted at [facility]. Blood sugar here is 95 but in the setting of poor PO intake. -A1c 5.3 -Monitor sugars Assessment & Plan (03/15/2019 12:24 PM CDT): Patient reports having blood sugars in the 300s while admitted at [facility]. Blood sugar here is 95 but in the setting of poor PO intake. -A1c 5.3 -Monitor sugars History of DVT (deep vein thrombosis) 03/15/2019 Assessment & Plan (03/20/2019 3:55 PM CDT): Reported on paperwork from [facility] in [place], however patient has no [...] 20 days, pt reports heavy drinker from [id number] Comments No Sex and Gender Information Value [...] on file Medical Devices Implanted Type Area Collar Starcher Device Identifier Shelf Expiration Date Model / Serial / Lot Graft Bone Fibula Shaft Allograft Frozen 60mmx5+ Mm - [id number] - [id number] Implanted:Qty: 1 on 10/02/2019 by Nicolas Wolf MD at [facility] Bone Left: Humerus Musculoskeletal Transplant 07/29/2023 [id number] / [id number] / 0 Synthes 241.901 Lcp Combi Philos [id number] 3 Hole Shaft Lock Compression - [id number] Implanted:Qty: 1 on 10/02/2019 by Nicolas Wolf MD at [facility] Left: Humerus Synthes I 241.901 / / Synthes 204.828 3.5mm 6mm 28mm 2.5mm Self Tap Small Hexagonal Socket Low Profile - [id number] Implanted:Qty: 3 on 10/02/2019 by Nicolas Wolf MD at [facility] Left: Humerus Synthes I 204.828 / / Synthes 212.136 3.5mm 2.9mm 46mm Self Tap Lock Stardrive Conical Head T15 Full - [id number] Implanted:Qty: 2 on 10/02/2019 by Nicolas Wolf MD at [facility] Left: Humerus Synthes I 212.136 / / Synthes 212.115 3.5mm 2.9mm 36mm Self Tap Lock Stardrive Conical Head T15 Full - [id number] Implanted:Qty: 2 on 10/02/2019 by Nicolas Wolf MD at [facility] Left: Humerus Synthes I 212.115 / / Synthes 212.116 3.5mm 2.9mm 38mm Self Tap Lock Stardrive Conical Head T15 Full - [id number] Implanted:Qty: 1 on 10/02/2019 by Nicolas Wolf MD at [facility] Left: Humerus Synthes I 212.116 / / Synthes 212.117 3.5mm 2.9mm 40mm Self Tap Lock Stardrive Conical Head T15 Full - [id number] Implanted:Qty: 2 on 10/02/2019 by Nicolas Wolf MD at [facility] Left: Humerus Synthes I 212.117 / / Synthes 212.118 3.5mm 2.9mm 42mm Self Tap Lock Stardrive Conical Head Full Thread - [id number] Implanted:Qty: 1 on 10/02/2019 by Nicolas Wolf MD at [facility] Left: Humerus Synthes I 212.118 / / Synthes 212.113 3.5mm 2.9mm 34mm Self Tap Lock Stardrive Conical Head Pelvis T15 - [id number] Implanted:Qty: 1 on 10/02/2019 by Nicolas Wolf MD at [facility] Left: Humerus Synthes I 212.113 / / Insurance Advance Directives For more information, please contact: [phone] * Full Code (Latest Code Status on [...] 6:58 AM 06/16/2019 10:28 AM Care Teams Insight Leader Relationship Specialty Start Date End Date Thao Dove MD PCP - General 03/14/19
--- OUTSIDE RECORDS SUMMARY | 2024-07-15 16:39 | XMS_ITS | Referral Summary ---
Author Organization [facility] Address [address] [place] [address] Care Team Providers Care Community Service Coordinator Name Role Phone Thao Dove MD Primary [...] (05/24/2019): Added automatically from request for surgery [id number] Assessment & Plan (10/13/2019 4:42 AM CDT): [...] in inpatient rehab. Received ativan while at [facility]. -Patient without etoh in 5 days, likely no need to etoh withdrawal scale at this time -Thiamine 100 mg, folic acid 1 mg every day -Social work consulted for rehab/ abstinence resources Assessment & Plan (03/15/2019 2:18 PM CDT): Continues to drink 1/5 of Vodka per day. Previously attempted outpatient rehab but is interested in inpatient rehab. Received ativan while at [facility]. -Patient without etoh in 5 [...] sugars in the 300s while admitted at [place]. Blood sugar here is 95 but in the setting of poor PO intake. -A1c 5.3 -Monitor sugars Assessment & Plan (03/15/2019 12:24 PM CDT): Patient reports having blood sugars in the 300s while admitted at [facility]. Blood sugar here is 95 but in the setting of poor PO intake. -A1c 5.3 -Monitor sugars History of DVT (deep vein thrombosis) 03/15/2019 Assessment & Plan (03/20/2019 3:55 PM CDT): Reported on paperwork from [facility] in [place], however patient has no recall [...] 20 days, pt reports heavy drinker from [phone] Comments No Sex and Gender Information Value [...] on file Medical Devices Implanted Type Area Manager Organizational Device Identifier Shelf Expiration Date Model / Serial / Lot Graft Bone Fibula Shaft Allograft Frozen 60mmx5+ Mm - [id number] - [id number] Implanted:Qty: 1 on 10/02/2019 by Nicolas Wolf MD at [facility] Bone Left: Humerus Musculoskeletal Transplant 07/29/2023 [id number] / [id number] / 0 Synthes 241.901 Lcp Combi Philos [id number] 3 Hole Shaft Lock Compression - [id number] Implanted:Qty: 1 on 10/02/2019 by Nicolas Wolf MD at [facility] Left: Humerus Synthes I 241.901 / / Synthes 204.828 3.5mm 6mm 28mm 2.5mm Self Tap Small Hexagonal Socket Low Profile - [id number] Implanted:Qty: 3 on 10/02/2019 by Nicolas Wolf MD at [facility] Left: Humerus Synthes I 204.828 / / Synthes 212.136 3.5mm 2.9mm 46mm Self Tap Lock Stardrive Conical Head T15 Full - [id number] Implanted:Qty: 2 on 10/02/2019 by Nicolas Wolf MD at [facility] Left: Humerus Synthes I 212.136 / / Synthes 212.115 3.5mm 2.9mm 36mm Self Tap Lock Stardrive Conical Head T15 Full - [id number] Implanted:Qty: 2 on 10/02/2019 by Nicolas Wolf MD at [facility] Left: Humerus Synthes I 212.115 / / Synthes 212.116 3.5mm 2.9mm 38mm Self Tap Lock Stardrive Conical Head T15 Full - [id number] Implanted:Qty: 1 on 10/02/2019 by Nicolas oWlf MD at [facility] Left: Humerus Synthes I 212.116 / / Synthes 212.117 3.5mm 2.9mm 40mm Self Tap Lock Stardrive Conical Head T15 Full - [id number] Implanted:Qty: 2 on 10/02/2019 by Nicolas Wolf MD at [facility] Left: Humerus Synthes I 212.117 / / Synthes 212.118 3.5mm 2.9mm 42mm Self Tap Lock Stardrive Conical Head Full Thread - [id number] Implanted:Qty: 1 on 10/02/2019 by Nicolas Wolf MD at [facility] Left: Humerus Synthes I 212.118 / / Synthes 212.113 3.5mm 2.9mm 34mm Self Tap Lock Stardrive Conical Head Pelvis T15 - [id number] Implanted:Qty: 1 on 10/02/2019 by Nicolas Wolf MD at [facility] Left: Humerus Synthes I 212.113 / / Insurance [facility] PL[facility] Advance Directives For more information, please contact: [phone] * Full Code (Latest Code Status on [...] 6:58 AM 06/16/2019 10:28 AM Care Teams Community Service Coordinator Relationship Specialty Start Date End Date Thao Dove MD PCP - General 03/14/19
--- OUTSIDE RECORDS SUMMARY | 2024-07-15 16:39 | XMS_ITS | Encounter Summary ---
Author Organization [facility] Healthcare Address [address] [place] [address] Care Team Providers Care Revenue Enforcement Agent Name Role Phone Thao Dove MD Primary Care Provider Encounter Details Date Type Department Care Team (Late st Contact Info) Description 05/03/[address] [facility] Radiology [address] [address] Carmen Hendrix RN Social History Tobacco Use [...] on filedocumented in this encounter Care Teams Revenue Enforcement Agent Relationship Specialty Start Date End Date Thao Dove MD PCP - General 03/14/19 documented as of this encounter
--- OUTSIDE RECORDS SUMMARY | 2024-07-15 16:39 | XMS_ITS | CONTINUITY OF CARE DOCUMENT ---
Author Name vincent kaur Address Unknown Organization [facility] Office Address [address] [place] [address] Phone [phone] Care Team Providers Care Nurses Supervisor Name Role Phone Nicole DAVIS, Jazmine Richardson Unavailable TAMARA JHAVERI Unavailable [phone] INSURANCE PROVIDERS Payer name Policy type / Coverage type [place] red democrat [facility] (MEDICARE) Medicare [id number]
--- OUTSIDE RECORDS SUMMARY | 2024-07-15 16:39 | XMS_ITS | Clinical Summary ---
Author Organization [facility] Address [address] [place] [address] Phone Care Team Providers Care Protective Signal Installer Name Role Phone Ari West Primary Care Provider [phone] Salome Larsen MD Unavailable Wally Sandoval MD Unavailable [phone] Nabeel Prado MD Unavailable [phone] Allergies No known active allergies Medications hydrOXYzine [...] not apply route. Active Continuous Blood Gluc Radiology Manager (Dexcom G7 Radiology Manager) Device Check blood sugar before each meal and at bedtime 1 Each 09/13/19 24 Active Insulin Pen Needle (Pen [place]) 32G X 4 MM Misc 4 times a day 400 Each 3 09/13/19 24 Active Pancrelipase, Jbv-Uwkm-Faau , (CREON 96656) [id number] Capsule DR Particles Take 1 Capsule by [...] Type Department Care Team Description 06/21/2024 Telephone [facility] - Gastroenterology - [address] [place] [address] Uriel Chavarria MD Procedure 06/16/2024 Refill [facility] - Endocrinology - [address] [place] [address] Salome Larsen MD Medication Refill 06/13/2024 Refill [facility] - Endocrinology - [address] [place] [address] Salome Larsen MD Medication Refill 05/31/2024 8:41 AM PIPELINE DISPATCHER Anesthesia Event [facility] Gi Lab Periop [address] [place] [address] Raúl Hester APRN, CRNA 05/31/2024 8:30 AM PIPELINE DISPATCHER - 05/31/2024 9:30 AM PIPELINE DISPATCHER Surgery [facility] Gi Lab Periop [address] [place] [address] Uriel Chavarria MD EGD - NORMAL EGD 05/31/2024 7:55 AM PIPELINE DISPATCHER Ancillary Procedure [facility] Gi Lab Main [address] [place] [address] Uriel Chavarria MD 05/31/2024 7:50 AM PIPELINE DISPATCHER Ancillary Procedure [facility] Gi Lab Main [address] [place] [address] Uriel Chavarria MD 05/31/2024 7:43 AM PIPELINE DISPATCHER - 05/31/2024 10:00 AM PIPELINE DISPATCHER Hospital Encounter [facility] Lab Preop/Pacu II [address] [place] [address] Uriel Chavarria MD Discharge Disposition: Discharged to home or Selfcare 05/31/2024 Travel 05/30/2024 Travel 04/29/2024 Refill [facility] [address] [place] [address] Salome Larsen MD Medication Refill from Last [...] on file Legal Sex Female 10:57 AM PIPELINE DISPATCHER Gender Identity Not on file Sexual Orientation Not on file Last Filed Vital Signs Vital Sign Reading Time Taken Comments Blood Pressure 120/88 05/31/2024 9:46 AM PIPELINE DISPATCHER Pulse 98 05/31/2024 9:46 AM PIPELINE DISPATCHER Temperature 37 ??C (98.6 ??F) 05/31/2024 9:46 AM PIPELINE DISPATCHER Respiratory Rate 15 05/31/2024 9:46 AM PIPELINE DISPATCHER Oxygen Saturation 100% 05/31/2024 9:46 AM PIPELINE DISPATCHER Inhaled Oxygen Concentration - - Weight 83.5 kg (184 lb) 05/30/2024 8:54 AM PIPELINE DISPATCHER Height 157.5 cm (5' 2 ) 05/30/2024 8:54 AM PIPELINE DISPATCHER Body Mass Index 33.65 05/30/2024 8:54 AM PIPELINE DISPATCHER Plan of Treatment Upcoming Encounters Date Type Department Care Team (Late st Contact Info) Description 08/08/2024 3:45 PM PIPELINE DISPATCHER Office Visit [facility] - Endocrinology - [address] [place] [address] Salome Larsen MD [address] [address] Health Maintenance Due Date Last Done Comments [...] Comments POCT GLUCOSE Routine 05/31/2024 9:21 AM PIPELINE DISPATCHER COLONOSCOPY 05/31/2024 8:41 AM PIPELINE DISPATCHER EGD - NORMAL EXAM COLONOSCOPY - POOR PREPARATION , NEGATIVE EXAM Special Needs DM, PREG test - Dx Pancreatitis EGD 05/31/2024 8:41 AM PIPELINE DISPATCHER EGD - NORMAL EXAM COLONOSCOPY - POOR PREPARATION , NEGATIVE EXAM Special Needs DM, PREG test - Dx Pancreatitis POCT GLUCOSE Routine 05/31/2024 8:28 AM PIPELINE DISPATCHER POCT GLUCOSE Routine 05/31/2024 8:05 AM PIPELINE DISPATCHER POCT URINE HCG () Routine 05/31/2024 7:50 AM PIPELINE DISPATCHER GI LAB IMAGING - EGD Routine 05/31/2024 7:45 AM PIPELINE DISPATCHER GI IMAGING - COLONOSCOPY Routine 05/31/2024 7:45 AM PIPELINE DISPATCHER MAGALIE SCREENING BILATERAL DIGITAL W CAD W [...] Results * POCT Glucose (05/31/2024 9:21 AM PIPELINE DISPATCHER) Only the most recent of3 resultswithin the time period is included. GLUCOSE,BEDSIDE POCT 84 70 - 99 mg/dL 05/31/2024 9:27 AM PIPELINE DISPATCHER [facility] Blood 05/31/2024 9:21 AM PIPELINE DISPATCHER 05/31/2024 9:27 AM PIPELINE DISPATCHER us None Provider POINT OF CARE TESTING Final Resu lt [facility] LAB [address] [place] [address] * POCT Urine HCG () (05/31/2024 7:50 AM PIPELINE DISPATCHER) POC URINE Negative POC URINE CONTROL Second Officer Pass Urine 05/31/2024 7:50 AM PIPELINE DISPATCHER Uriel Chavarria MD POINT OF CARE TESTING (MAURICIO BELLE) Final Result * GI LAB IMAGING - EGD (05/31/2024 7:45 AM PIPELINE DISPATCHER) Uriel Chavarria MD [facility] DIAGNOSTIC ORDERABLES Final Result * GI IMAGING - COLONOSCOPY (05/31/2024 7:45 AM PIPELINE DISPATCHER) us Uriel DALLAS DIAGNOSTIC ORDERABLES Final Result [...] Ray Owens M.D. ? ll/penrad:11/01/2023 16:47:35 ?? Habilitation Specialist(s): Lisa ??RT Elizabeth(R)(M), [facility] letter sent: Normal Exam ?? Reading location: [facility] BI-RADS: 1 Negative Procedure Note Ray [...] exam. Electronically signed by: Ray sales/pablo:11/01/2023 16:47:35 Habilitation Specialist(s): RT Precious(R)(M), [facility] letter sent: Normal Exam Reading location: [facility] BI-RADS: 1 Negative us Ari CELAYA IMG MAMMO ORDERABLES Final Result * (ABNORMAL) HEMOGLOBIN A1C W/ ESTIMATED GLUCOSE (09/07/2023 11:52 AM CDT) HGB-A1C 10.2(H) 4.0 - 6.0 % 09/07/2023 1:14 PM CDT [facility] Est Average Glucose 246.0 mg/dL 09/07/2023 1:14 PM CDT [facility] Blood Venipuncture / Unknown 09/07/2023 11:52 AM CDT 09/07/2023 12:37 PM CDT Narrative [facility] - 09/07/2023 1:14 PM CDT HEMOGLOBIN A1C: DIABETIC PATIENTS: WELL-CONTROLLED: ?? 6.2 - 7.0 INTERMEDIATE WELL-CONTROLLED: ??7.0 - 9.0 POORLY-CONTROLLED: ??>9.0 us Wally Sandoval MD CHEMISTRY ORDERABLES Linda christianson Result [facility] [address] [place] [address] * (ABNORMAL) CMP (COMPREHENSIVE METABOLIC PANEL) (09/07/2023 11:52 AM CDT) SODIUM 136 136 - 145 mmol/L 09/07/2023 1:14 PM CDT [facility] POTASSIUM 3.7 3.5 - 5.1 mmol/L 09/07/2023 1:14 PM CDT [facility] CHLORIDE 105 98 - 107 mmol/L 09/07/2023 1:14 PM CDT [facility] CO2, VENOUS 24 22 - 30 mmol/L 09/07/2023 1:14 PM CDT [facility] ANION GAP 10.7 <18.0 mmol/L 09/07/2023 1:14 PM CDT [facility] GLUCOSE 276(H) 70 - 99 mg/dL 09/07/2023 1:14 PM CDT [facility] BUN 11 5 - 18 mg/dL 09/07/2023 1:14 PM CDT [facility] CREATININE, BLOOD 0.72 0.60 - 1.00 mg/dL 09/07/2023 1:14 PM CDT [facility] BUN/CREATININE RATIO 15 12 - 20 ratio 09/07/2023 1:14 PM CDT [facility] TOTAL PROTEIN 7.0 6.3 - 8.2 g/dL 09/07/2023 1:14 PM CDT [facility] ALBUMIN 3.6 3.5 - 5.0 g/dL 09/07/2023 1:14 PM CDT [facility] A/G RATIO 1.1 1.0 - 2.2 09/07/2023 1:14 PM CDT [facility] CALCIUM 8.5(L) 8.7 - 10.5 mg/dL 09/07/2023 1:14 PM CDT [facility] T BILI 0.3 0.2 - 1.2 mg/dL 09/07/2023 1:14 PM CDT [facility] SGOT (AST) 16 5 - 34 U/L 09/07/2023 1:14 PM CDT [facility] SGPT (ALT) 19 0 - 55 U/L 09/07/2023 1:14 PM CDT [facility] ALKALINE PHOSPHATASE 98 40 - 150 U/L 09/07/2023 1:14 PM CDT [facility] IS THE PATIENT REQUIRED TO BE FASTING? No 09/07/2023 1:14 PM CDT [facility] GFR, ESTIMATED >60 >=60 09/07/2023 1:14 PM CDT [facility] Comment: Creatinine Clearance is the preferred criteria for selecting drug dose adjustments in renally impaired patients. ??The GFR is provided as additional pertinent clinical information. GFR is reported in mL/min/1.73 sq m. Calculation based on the Chronic Kidney Disease Epidemiology Collaboration (CKD- EPI) equation refit without adjustment for race. GFR, EST. >60 >=60 024 1:14 PM CDT [facility] GFR, EST. NONAFRICAN >60 >=60 09/07/2023 1:14 PM CDT [facility] Blood Venipuncture / Unknown 09/07/2023 11:52 AM CDT 09/07/2023 12:37 PM CDT us Wally Sandoval MD CHEMISTRY ORDERABLES Linda l Result [facility] [address] [place] [address] from Last 3 Months or Most Recently Relevant to Health Maintenance Insurance [place] [id number] Care Teams Protective Signal Installer Relationship Specialty Start Date End Date Ari West PA [address] [place] [address] PCP - General Physician Press Room Supervisor 07/21/23 Salome Larsen MD [address] [phone] Consulting Physician Endocrinology 09/01/23 Wally Sandoval MD [address] [place] [address] Consulting Physician Gastroenterology 09/08/23 Nabeel Prado MD [address] [place] [phone] Consulting Physician Neurology 03/07/24
--- NOTE | 2024-07-15 16:51 | ECG_ITS ---
Test Date: 2024-07-15 18:34:41 Measurements Intervals [place] Rate: 81 P: 58 ID: [id number] QRS: 7 QRSD: 92 T: 46 QT: 430 QTc: 501 Interpretive Statements SINUS RHYTHM DELAYED PRECORDIAL R/S TRANSITION BORDERLINE ECG Compared to ECG 06/28/2024 14:27:53 Ectopic atrial rhythm no longer present Electronically Signed On 07-16-2024 08:22:34 RANGE MOUNTER by Duran Grey D.O.
[2024-07-15 17:23] LABS: Alveolar/Arterial O2 Gradient 9.3 mmHg; Base Excess ABG 3.9 mEq/l (+/-2.0); Device ROOM AIR; Fractional Inspired Oxygen 21 %; HCO3 ABG 29.4 mEq/l (22.0-26.0); Oxygen Content ABG 18.2 %vol (16.0-22.0); Oxygen Saturation ABG 96.3 % (95.0-100.0); PCO2 ABG 47.4 mmHg (35.0-45.0); PO2 ABG 83.7 mmHg (80.0-100.0); PO2 FiO2 Ratio Arterial Blood 3.99 %; Site Drawn RIGHT BRACHIAL
[2024-07-15 17:29] LABS: Glucose Point of Care 87 mg/dl (65-105)
[2024-07-15 17:33] LABS: Basophils Percent Auto 0.2 % (0.2-1.2); Eosinophils Absolute Auto 0.2 K/mm3 (0-0.3); Eosinophils Percent Auto 2.4 % (0-4.4); Hematocrit 39.9 % (37.0-47.0); Hemoglobin 13.1 g/dL (12.0-15.0); Immature Granulocyte Absolute 0.02 K/mm3 (0.00-0.031); Immature Granulocyte Percent A 0.2 % (0-0.5); Lymphocytes Absolute Auto 3.38 K/mm3 (0.9-3.2); Lymphocytes Percent Auto 40.5 % (18.3-44.2); Mean Corpuscular HGB Conc 32.8 g/dl (32-36); Mean Corpuscular Hemoglobin 27.8 pg (26-34); Mean Corpuscular Volume 84.7 fl (80-100); Mean Platelet Volume 9.8 fl (7.4-10.4); Monocytes Absolute Auto 0.4 K/mm3 (0.1-0.6); Monocytes Percent Auto 5.3 % (2.6-8.5); Neutrophils Absolute Auto 4.3 K/mm3 (1.3-6.7); Neutrophils Percent Auto 51.4 % (45.5-73.1); Platelet Count Result 229 k/mm3 (150-375); Red Blood Count 4.71 M/mm3 (4.2-5.4); Red Cell Distribution Width 14.5 % (11.5-14.5); White Blood Count 8.4 K/mm3 (4.5-10.0)
[2024-07-15] MEDS: LORazepam INJ (*CRX) 2 MG/ML VIAL (17:39)
[2024-07-15] MEDS: HALOPERIDOL LACTATE 5 MG/ML VIAL 10 MG (17:39)
[2024-07-15 17:44] LABS: Prothrombin Time 13.2 Seconds (11.1-14.7)
[2024-07-15 17:45] LABS: Partial Thromboplastin Time 26.1 Seconds (22.3-36.8)
[2024-07-15 17:48] LABS: Creatine Kinase 41 U/L (30-135)
[2024-07-15 17:55] LABS: Alanine Aminotransferase 38 U/L (6-35); Albumin Level 3.8 g/dL (3.5-5.1); Alkaline Phosphatase 133 U/L (38-126); Anion Gap 13 mmol/L (4-12); Aspartate Amino Transferase 36 U/L (14-36); Bilirubin,Total 0.3 mg/dL (0.2-1.3); Blood Urea Nitrogen 13 mg/dL (7-17); Calcium 9.1 mg/dL (8.4-10.2); Carbon Dioxide 27 mmol/L (22-30); Chloride 105 mmol/L (98-107); Estimated CRCL calculation 139 ml/min; Estimated Glomerular Filt Rate > 60; Glucose 107 mg/dL (65-110); Lipase 20 U/L (23-300); Potassium 3.5 mmol/L (3.4-5.0); Sodium 145 mmol/L (137-145)
[2024-07-15 17:56] LABS: Lactic Acid Reflex 2.1 mmol/L (0.7-2.0)
[2024-07-15 17:57] LABS: Acetaminophen < 10 ug/mL (10-30); Ammonia < 9 umol/L (9-30); Ethanol 140 mg/dL (<10); Salicylate < 1.0 mg/dL (2-20)
[2024-07-15] MEDS: SODIUM CHLORIDE 0.9% IV 2,000 ML 999 ML IV CONT (18:07)
[2024-07-15 18:29] LABS: BEDSIDEPREGUCG Negative (Negative)
[2024-07-15 18:42] LABS: Add Urine Microscopic? YES; Appearance Urine Clear (Clear); Bacteria Urine None Seen /hpf; Bilirubin Urine Negative (Negative); Blood Urine 3+ (Negative); Color Urine Yellow (Yellow); Glucose Urine UA Negative (Negative); Ketones Urine Negative (Negative); Leukocyte Esterase Ur Negative LEU/UL (Negative); Need Manual Microscopic Reviewed; Nitrate Urine Negative (Negative); Non Pathogenic Casts 0-2; Protein Urine Negative (Negative); RBC Urine 0-2 /hpf (0-2); Specific Grav Ur 1.005 (1.001-1.035); Squamous Epithelial Cell Urine None Seen /hpf (Few); Urobilinogen Urine 0.2 mg/dL (<2.0); WBC Urine 0-5 /hpf (0-3)
[2024-07-15 18:49] LABS: Glucose Point of Care 83 mg/dl (65-105)
[2024-07-15 19:59] LABS: Glucose Point of Care 74 mg/dl (65-105)
[2024-07-15] MEDS: DEXTROSE 5%/0.9% SOD CHL 1,000 ML 100 ML IV CONT (20:19)
[2024-07-15 20:20] LABS: Amphetamine Screen Urine Negative (Negative); Barbiturate Screen Urine Negative (Negative); Benzodiazepines Screen Urine Negative (Negative); Cannabinoid Screen Urine Positive (Negative); Cocaine Screen Urine Negative (Negative); Methadone Screen Urine Negative (Negative); Opiate Screen Urine Negative (Negative); Phencyclidine Screen Urine Negative (Negative)
[2024-07-15 20:31] LABS: Reflex Lactic Acid Yes or No Add Lactic
[2024-07-15 20:48] LABS: Glucose Point of Care 114 mg/dl (65-105)
[2024-07-15 22:16] LABS: Glucose Point of Care 111 mg/dl (65-105)
--- NOTE | 2024-07-15 22:42 | PC.NURSE ---
Per EDP Dr. Earl patient to pause receiving dextrose infusion and to check a blood sugar within 1 hour. this rn used closed loop communication to confirm pause on the dextrose infusion and a bedside blood sugar within a hour. edp verbalized confirmation.
[2024-07-15 23:50] LABS: Glucose Point of Care 92 mg/dl (65-105)
[2024-07-16 00:30] VITALS: PULSE 97; RESP 15; O2SAT 97
[2024-07-16 00:48] LABS: Glucose Point of Care 104 mg/dl (65-105)
[2024-07-16 02:40] LABS: Glucose Point of Care 208 mg/dl (65-105)
--- NOTE | 2024-07-16 02:47 | PC.NURSE ---
edp dr. spear verbalized that crisis could be called to evaluate patient mental health status at this time.
[2024-07-16 03:46] VITALS: BP 136/60; PULSE 81; RESP 13; O2SAT 94
--- NOTE | 2024-07-16 04:39 | PC.NURSE ---
Crisis determined patient is fit for a safety plan at this time. EDP Dr. Franklin confirmed that patient is cleared to be dicharged at this time.
== END 2024-07-16 05:20 | disposition home or self-care (01) ==
PROVIDERS: Emergency Provider Emergency Medicine
DX: F10.129 Alcohol abuse with intoxication, unspecified (principal); Y90.6 Blood alcohol level of 120-199 mg/100 ml; Z79.4 Long term (current) use of insulin; E10.9 Type 1 diabetes mellitus without complications; F31.9 Bipolar disorder, unspecified; E78.49 Other hyperlipidemia; F41.8 Other specified anxiety disorders; Z86.718 Personal history of other venous thrombosis and embolism; Z87.891 Personal history of nicotine dependence
CPT/HCPCS: 36415; 36600; 70450; 71045; 80053; 80143; 80179; 80307; 81001; 81025; 82077; 82140; 82550; 82805; 82948; 83605; 83690; 84443; 85018; 85025; 85610; 85730; 93005; 96361; 96372; 96374; 99284; J1630; J2060; J7030; J7042

== ENCOUNTER 2025-03-23 11:42 | Emergency (ER) | payer BC, SELFPAY ==
--- NOTE | 2025-03-23 11:46 | ED_ITS ---
HPI - Nausea/Vomiting/Diarrhea General Chief complaint: Nausea/Vomiting/Diarrhea Stated complaint: VOMITING/NAUSEA Time Seen by Provider: 03/23/25 11:46 Source: patient Mode of arrival: ambulatory Limitations: no limitations History of Present Illness HPI Narrative: Patient is a 44-year-old female who presents with 3-4 days of nausea and vomiting. Reports she feels better today but is still fatigued and is in need of a work note. Has not vomited today. Patient is a diabetic on insulin. Related Data Home Medications ?Medication ?Instructions ?Recorded ?Confirmed ?Last Taken ?Type insulin aspart U-100 100 unit/mL 1 sliding scale dose subcut 07/01/21 06/25/24 03/09/24 History subcutaneous solution (Novolog USEASDIRECTD U-100 Insulin aspart) pregabalin 100 mg capsule 200 mg PO TID 02/24/2206/2503/09/24 History albuterol sulfate 90 mcg/actuation 90 mcg inhalation D AILY 03/10/24 06/25/24 03/09/24 History aerosol inhaler duloxetine 60 mg capsule,delayed See Rx Instructions . Route .COMPLEX 03/10/24 06/25/24 03/09/24 History release hydroxyzine pamoate 25 mg capsule 25 mg PO HS 03/10/24 06/25/24 03/09/24 History buspirone 10 mg tablet 30 mg PO BID anxiety 5 06/25/24 Unknown History dextroamphetamine sulfate 30 mg 30 mg PO DAILY@1400 06/25/24 Unknown History tablet dextroamphetamine-amphetamine ER 30 mg PO DAILY@0630 0 06/25/24 06/25/24 Unknown History 30 mg 24hr capsule,extend release hydroxyzine HCl 10 mg tablet 10 mg PO TID PRN anxiety 06/25/24 06/25/24 Unknown History insulin glargine 100 unit/mL (3 30 unit subcut QPM 06/0706/25/24 Unknown History mL) subcutaneous pen (Lantus Solostar U-100 Insulin) insulin lispro 100 unit/mL 10 unit subcut TIDWMEAL 06/0706/28/24 Unknown History subcutaneous pen Allergies Allergy/AdvReac Type Severity Reaction Status Date / Time No Known Allergies Allergy Unknown Verified 06/25/24 07:47 Review of Systems Review of Systems: All systems reviewed & are unremarkable except as noted in HPI and below Constitutional: Constitutional: Denies body ache(s), Denies chills, Denies fatigue, Denies fever(s), Denies headache(s), Denies malaise and Denies weakness Eyes: Eyes: Denies blurry vision, Denies irritation and Denies loss of vision ENT: Denies otalgia, Denies headache(s), Denies nasal discharge, Denies sinus pain and Denies sore throat Cardiovascular: Cardiovascular: Denies chest pain, Denies irregular heart rhythm and Denies dyspnea Respiratory: Respiratory: Denies dyspnea Gastrointestinal: Gastrointestinal: Denies abdominal pain, Denies melena, Denies hematochezia, Denies diarrhea, Reports nausea and Reports vomiting Musculoskeletal: Musculoskeletal: Denies back pain, Denies myalgias and Denies arthralgias Integumentary/Breasts: Skin/Breast: Denies pruritus and Denies rash Neurologic: Denies headache(s), Denies loss of vision and Denies weakness Psychiatric: Psychiatric: Reports no additional psychiatric complaints Endocrine: Endocrine: Denies fatigue PMFSH Past Medical History Medical History Type 1 diabetes mellitus Bipolar disorder Neuropathy Chronic pancreatitis Dyslipidemia Anxiety Depression Hepatitis DVT (deep venous thrombosis) Necrotizing pancreatitis Surgical History Surgical History History of wisdom tooth extraction History of tubal ligation History of ERCP (06/2019) History of surgery on arm (2019) Left History of section 2003, 2010, 2016 Family History Family History Mother Diabetes mellitus Family history of coronary artery disease Family history of dementia Social History Social History Social History: Surrogate medical decision maker: Billy Wright, friend. Code status: Full code. Smoking packs per day: 0.5 Smoking cigarettes per day: 10.0 Years smoked: 20 Smoking pack-years: 10.00 Smoking status: Former smoker Tobacco type: cigarettes Second hand tobacco smoke exposure: Yes Additional smoking assessment comments: quit 4 months ago Alcohol intake: current Drinks per week: 42 Substance use: current Substance use type: marijuana Last use: 03/10/2024 Do You Feel Safe in your Home?: Yes Lack of Transportation: No Lack of Food: Sometimes True Current Housing: I Have Housing Concerned About Future Housing: Decline to Answer Difficulty Paying Gas/Electric Bills: Decline to Answer Difficulty Paying for Meds: Decline to Answer Currently Unemployed: Decline to Answer Education: Decline to Answer Difficulty w/ Childcare or Family Care: Decline to Answer Additional occupation/education comments: Unemployed. Spiritual care concerns: No Comments At time of signature, agree with nursing past medical, surgical, social and family history. There is no relevant family history pertinent to the presenting complaint. Exam Const: General: cooperative, healthy appearing, comfortable, no acute distress and well nourished Nutritional Appearance: well nourished Orientation/consciousness: patient oriented x3 Limitations: no limitations HENMT: Head: normal to inspection, normocephalic and atraumatic Ears: hearing grossly normal bilaterally and external ears normal Face/Nose/Sinus: Normal external nose present, normal facial exam and face symmetric Face and sinus: normal facial exam and face symmetric Mouth: Yes lip normal Eyes: General: appearance normal, both eyes and all related structures Alignment and Position: alignment normal and position normal Periorbital: periorbital findings normal Eyelids: eyelids normal Pupils: Equal, round and reactive pupils present EOM: EOMs intact bilaterally Neck: Neck: normal visual inspection, full ROM and supple Chest: Chest palpation & inspection: normal inspection of the chest Resp: Effort & Inspection: normal respiratory effort and able to speak in complete sentences Auscultation: clear to auscultation bilaterally Cardio: Rate: regular rate Rhythm: regular rhythm Heart sounds: S1 normal heart sound present and S2 normal heart sound present GI: Inspection: normal to inspection GI Palp: No abdominal tenderness Auscultation: normal bowel sounds Skin: General skin exam: normal color and no rashes or lesions noted Neuro: General: patient oriented x3 and moves all extremities Cranial nerves: Yes Equal, round and reactive pupils present Speech: normal speech Gait exam (Neuro): Normal gait present Extrem: General: normal to inspection, full ROM and no edema Psych: Appearance: grossly normal and well kempt Mental Status: mental status grossly normal Speech and movement: Normal speech and movement present Affect: normal affect Attitude: cooperative Thought process: Normal thought process present Course Course Emergency Course: Patient is aware of diagnosis, understands and agrees to treatment plan. Anticipatory guidance given. Patient agrees to follow-up as directed and is aware of reasons to seek care at the emergency department. Portions of this record may have been created with voice recognition software Level of Care: Express Care Visit Vital Signs Vital signs: Reviewed MDM - Nausea/Vomiting/Diarrhea MDM Narrative Medical decision making narrative: Pt well hydrated appearing, in no respiratory distress, hemodynamically stable. Recommend supportive care. The patient is stable at time of discharge the clinical impression was discussed and the patient was given the opportunity to ask questions, which were addressed as completely as possible given the information available at present. Anticipatory guidance and return to care precautions were discussed and the importance of primary care follow-up was str essed and encouraged. The patient voiced understanding of the plan, indications to return, and the need for follow-up. Exam findings show no acute concerns or changes Patient is appropriate for outpatient treatment and follow-up. Differential Diagnosis Differential diagnosis: Likely food poisoning, gastroenteritis and dehydration Medical Records Attestation: I reviewed the patient's medical records. Discharge Plan Discharge Clinical Impression: Nausea and vomiting Patient Disposition: Home Condition: Stable Instructions: Acute Nausea and Vomiting (ED) Additional Instructions: Stay hydrated. Take small sips of fluid containing electrolytes frequently(Body [place], Gatorade, Powerade, liquid IV). Eat small meals that her very bland including bananas, applesauce, rice, toast, boiled or grilled chicken, soup. Do not eat anything fried, spicy or overly acidic. You should go to the hospital if you experience return of persistent nausea and vomiting that does not resolve and does not allow you to tolerate any food or fluids, persistent fevers for greater than 2-3 more days, increasing abdominal pain that persists despite medications, persistent diarrhea, dizziness, syncope (fainting), or for any other concerns. Your blood pressure was elevated above 120/80 today at Urgent Care. This puts you above the threshold for follow up visit with a primary care provider. High blood pressure does not usually cause any symptoms, however it may lead to kidney failure, stroke, heart disease just to name a few if untreated . Many people are anxious when seeing a provider or nurse. As a result, you are not diagnosed with hypertension at this time unless your blood pressure is persistently high at two office visits at least one week apart. Some things that can help lower blood pressure are lifestyle modifications, such as light exercise, decreased salt in diet, and weight loss. It is important to follow up with a PCP about this within 1 week. Patient Language: Turkmen Prescriptions: New ondansetron 4 mg tablet,disintegrating 4 mg PO Q6-8H PRN (Reason: nausea and vomiting) Qty: 20 0RF No Action pregabalin 100 mg capsule 200 mg PO TID insulin aspart U-100 [Novolog U-100 Insulin aspart] 100 unit/mL Solution 1 sliding scale dose SUBCUT USEASDIRECTD albuterol sulfate 90 mcg/actuation HFA aerosol inhaler 90 mcg INHALATION DAILY hydroxyzine pamoate 25 mg capsule 25 mg PO HS duloxetine 60 mg capsule,delayed release(DR/EC) See Rx Instructions .ROUTE .COMPLEX Rx Instructions: TAKE 1 CAPSULE BY MOUTH EVERY DAY FOR NERVE PAIN thiamine HCl (vitamin B1) [Vitamin B-1] 100 mg Tablet 100 mg PO QAM Qty: 30 0RF folic acid 1 mg Tablet 1 mg PO DAILY Qty: 30 0RF ferrous sulfate 325 mg (65 mg iron) tablet 325 mg PO BID Qty: 60 0RF buspirone 10 mg tablet 30 mg PO BID dextroamphetamine sulfate 30 mg tablet 30 mg PO DAILY@1400 dextroamphetamine-amphetamine 30 mg capsule,extended release 24hr 30 mg PO DAILY@0630 hydroxyzine HCl 10 mg tablet 10 mg PO TID PRN (Reason: anxiety) Rx Instructions: TAKE 1 TO 2 TABLETS BY MOUTH UP TO THREE TIMES DAILY insulin glargine [Lantus Solostar U-100 Insulin] 100 unit/mL (3 mL) insulin pen 30 unit SUBCUT QPM insulin lispro 100 unit/mL insulin pen 10 unit SUBCUT TIDWMEAL Follow-up/Referrals: Fly,MD Skinny [Primary Care Provider, Unknown] - 3 Days Stand Alone Forms: Work/School Release IP Time of Disposition: 12:04
[2025-03-23 11:53] VITALS: BP 143/78; PULSE 90; RESP 16; TEMP 37.2; O2SAT 100
== END 2025-03-23 12:08 | disposition home or self-care (01) ==
PROVIDERS: Emergency Provider Nurse Practitioner Family; PCP Family Medicine
DX: R11.2 Nausea with vomiting, unspecified (principal); Z87.891 Personal history of nicotine dependence; E10.42 Type 1 diabetes mellitus with diabetic polyneuropathy; Z79.4 Long term (current) use of insulin; E78.5 Hyperlipidemia, unspecified; Z86.718 Personal history of other venous thrombosis and embolism; F41.9 Anxiety disorder, unspecified; F32.A Depression, unspecified
CPT/HCPCS: 99213; G0463

== ENCOUNTER 2025-06-11 22:14 | Observation (INO) | payer BC, SELFPAY ==
[2025-06-11 22:34] VITALS: BP 100/63; PULSE 69; RESP 17; TEMP 36.7; O2SAT 100
--- NOTE | 2025-06-11 22:41 | ECG_ITS ---
Test Date: 2025-06-11 23:10:43 Measurements Intervals [place] Rate: 61 P: 57 [place]: 169 QRS: 7 QRSD: 110 T: 50 QT: 466 QTc: 472 Interpretive Statements SINUS RHYTHM DELAYED PRECORDIAL R/S TRANSITION MINIMAL Q WAVES- HIGH LATERAL LEADS BORDERLINE ECG Compared to ECG 07/15/2024 18:34:41 No significant changes Electronically Signed On 06-11-2025 23:33:02 RAIL FILLER by Duran Grey D.O.
--- NOTE | 2025-06-11 22:54 | ED.OVERDOSE ---
HPI - Overdose General Chief Complaint: Overdose Stated Complaint: LOW BG, ETOH+ Time Seen by Provider: 06/11/25 22:28 History of Present Illness HPI Narrative: 45-year-old female with history of insulin-dependent diabetes, depression and previous suicide attempts with insulin overdose. Patient presents to the emergency department after EMS was called by her fiance after patient took double of her home insulin and was drinking throughout the evening. Patient is intoxicated on arrival but does admit to taking too much insulin. When asked exactly how much she took she does not know. States it could be 2x38 units. She states she took 2 injections and when I asked her how she accidentally took 2 different injections she became quiet. Asked if she was trying to harm herself and she took a while to answer and states I do not think so. EMS found the patient with blood sugar about 20 and given 250 mL of D10 improved to 136. Patient is awake but intoxicated. Not any distress. She is sad appearing but conversing in full sentences. Placed into room 5 for resuscitation and evaluation. patient is complaining of not feeling well with brain fog and nauseousness but no other somatic complaints such as vomiting, abdominal pain, back pain, fever, chills. Related Data Home Medications ?Medication ?Instructions ?Recorded ?Confirmed ?Last Taken ?Type insulin aspart U-100 100 unit/mL 1 sliding scale dose subcut 07/01/21 06/25/24 03/09/24 History subcutaneous solution (Novolog USEASDIRECTD U-100 Insulin aspart) pregabalin 100 mg capsule 200 mg PO TID 02/24/22 06/25/24 03/09/24 History albuterol sulfate 90 mcg/actuation 90 mcg inhalation DAILY 03/10/24 06/25/24 03/09/24 History aerosol inhaler duloxetine 60 mg capsule,delayed See Rx Instructions .Route .COMPLEX 03/10/24 06/25/24 03/09/24 History release hydroxyzine pamoate 25 mg capsule 25 mg PO HS 03/10/24 06/25/24 03/09/24 History buspirone 10 mg tablet 30 mg PO BID anxiety 06/25/24 06/25/24 Unknown History dextroamphetamine sulfate 30 mg 30 mg PO DAILY@1400 06/25/24 06/25/24 Unknown History tablet dextroamphetamine-amphetamine ER 30 mg PO DAILY@0630 06/25/24 06/25/24 Unknown History 30 mg 24hr capsule,extend release hydroxyzine HCl 10 mg tablet 10 mg PO TID PRN anxiety 06/25/24 06/25/24 Unknown History insulin glargine 100 unit/mL (3 30 unit subcut QPM 06/25/24 06/25/24 Unknown History mL) subcutaneous pen (Lantus Solostar U-100 Insulin) insulin lispro 100 unit/mL 10 unit subcut TIDWMEAL 06/25/24 06/28/24 Unknown History subcutaneous pen Allergies Allergy/AdvReac Type Severity Reaction Status Date / Time No Known Allergies Allergy Unknown Verified 06/25/24 07:47 Review of Systems Review of Systems: As reviewed above in HPI All systems reviewed & are unremarkable except as noted in HPI and below PMFSH Past Medical History Medical History Type 1 diabetes mellitus Bipolar disorder Neuropathy Chronic pancreatitis Dyslipidemia Anxiety Depression Hepatitis DVT (deep venous thrombosis) Necrotizing pancreatitis Surgical History Surgical History History of wisdom tooth extraction History of tubal ligation History of ERCP (06/2019) History of surgery on arm (2019) Left History of section 2003, 2010, 2016 Family History Family History Mother Diabetes mellitus Family history of coronary artery disease Family history of dementia Social History Social History Social History: Surrogate medical decision maker: Billy Wright, friend. Code status: Full code. Smoking packs per day: 0.5 Smoking cigarettes per day: 10.0 Years smoked: 20 Smoking pack-years: 10.00 Smoking status: Former smoker Tobacco type: cigarettes Second hand tobacco smoke exposure: Yes Additional smoking assessment comments: quit 4 months ago Alcohol intake: current Drinks per week: 42 Substance use: current Substance use type: former substance user, marijuana and painkillers Last use: 03/10/2024 Lack of Transportation: No Lack of Food: Sometimes True Current Housing: I Have Housing Concerned About Future Housing: Decline to Answer Difficulty Paying Gas/Electric Bills: Decline to Answer Difficulty Paying for Meds: Decline to Answer Currently Unemployed: Decline to Answer Education: Decline to Answer Difficulty w/ Childcare or Family Care: Decline to Answer Additional occupation/education comments: Unemployed. Spiritual care concerns: No Exam Narrative: GENERAL: Intoxicated and Ill-appearing, sad affect, not any physical distress. HEAD: [Normocephalic, atraumatic.] EYES: [PERRLA and EOMI.] ENT: Nares clear, no rhinorrhea or epistaxis. Mucous membranes moist. NECK: Supple. CHEST: [Clear to auscultation. No respiratory distress.] HEART: [Regular rate and rhythm]. No murmur heard. [Normal peripheral pulses.] ABDOMEN: [Soft, nondistended], [nontender], [No rigidity or guarding] EXTREMITIES: Normal range of motion. [No edema.] SKIN: Warm, dry, no rash. NEURO: [No focal deficits]. Alert and oriented [x3.] PSYCH: Denies SI or HI. Sad affect and mood. Course Vital Signs Vital signs: Vital Signs Temperature 36.7 C 06/11/25 22:34 Pulse Rate 69 06/11/25 22:34 Respiratory Rate 17 06/11/25 22:34 Blood Pressure 100/63 06/11/25 22:34 Pulse Oximetry 100 06/11/25 22:34 Oxygen Delivery Room Air 06/11/25 22:34 Temperature 36.7 C 06/11/25 22:34 Pulse Rate 69 06/11/25 22:34 Respiratory Rate 18 06/11/25 23:57 Blood Pressure 100/63 06/11/25 22:34 Pulse Oximetry 97 06/11/25 23:56 Oxygen Delivery Room Air 06/11/25 23:56 [facility] MDM Narrative Medical decision making narrative: 45-year-old female with history of insulin-dependent diabetes, depression and previous suicide attempts with insulin overdose. Patient presents to the emergency department after EMS was called by her fiance after patient took double of her home insulin and was drinking throughout the evening. Patient is intoxicated on arrival but does admit to taking too much insulin. When asked exactly how much she took she does not know. States it could be 2x38 units. She states she took 2 injections and when I asked her how she accidentally took 2 different injections she became quiet. Asked if she was trying to harm herself and she took a while to answer and states I do not think so. EMS found the patient with blood sugar about 20 and given 250 mL of D10 improved to 136. Patient is awake but intoxicated. Not any distress. She is sad appearing but conversing in full sentences. Placed into room 5 for resuscitation and evaluation. patient is complaining of not feeling well with brain fog and nauseousness but no other somatic complaints such as vomiting, abdominal pain, back pain, fever, chills. Patient's vital signs are reassuring without any tachycardia, fever, hypoxemia or significant blood pressure derangements. She is ill-appearing, sad affect but denies suicidality and right now. Does have some significant past medical history with insulin overdose attempts for suicide as well as insulin dependence. Her glucose was low by EMS but they administered dextrose. Recheck here and was 100. Overdose laboratory studies were sent including a VBG and toxicological screenings. She was given a fluid bolus and frequent blood sugar checks will be conducted. Alcohol level obtained. Patient denies any other toxic in his besides alcohol today. Patient's glucose keeps dropping despite dextrose infusion. She was given dextrose 50 bolus. Increased rate of her D10 drip to 100 cc/hour and re-evaluated. Her laboratory studies do not show any significant alcohol intoxication and otherwise looks reassuring. She has been nauseous requiring several rounds of antiemetics but otherwise hemodynamically stable and mentating appropriately. Dextrose keeps going down on frequent re-evaluation and checks and her rate was increased to 150 cc/hour. Given octreotide and glucagon for refractory hypoglycemia. Next glucose checks still low requiring additional glucose. She was changed into a dextrose D25 infusion after consulting with pharmacy to allow for easier titration of medication and fluids. Patient's ABG is reassuring without any acid-base disturbances. Mild hypokalemia and hypophosphatemia likely from the insulin so she was given a dose of K-Phos. Spoke to the ICU attending Dr. Cedillo regarding patient's presentation, refractory hypoglycemia requiring high-dose dextrose infusion as well as suspicion for intentional overdose. Patient was accepted the ICU at this time. She remains hemodynamically stable her glucose is now improving. Recent check shows 150 on point care. Spoke to the hospitalist Thelma who accepted the patient to the ICU at this time and admission orders placed. Differential Diagnosis Differential Diagnosis: Intentional versus accidental overdose of insulin, alcohol intoxication, electrolyte derangements, metabolic versus toxic encephalopathy. Lab Data MDM Lab Attestation statement: I personally reviewed the patient's lab results. 06/11/25 23:01 06/11/25 22:53 Labs: Lab Results 06/11/25 06/11/25 06/11/25 Range/Units 22:21 22:53 22:59 WBC (4.5-10.0) K/mm3 RBC (4.2-5.4) M/mm3 Hgb (12.0-15.0) g/dL Hct (37.0-47.0) % MCV (80-100) fl MCH (26-34) pg MCHC (32-36) g/dl RDW (11.5-14.5) % Plt Count (150-375) k/mm3 MPV (7.4-10.4) fl Immature Gran % (Auto) (0-0.5) % Neut % (Auto) (45.5-73.1) % Lymph % (Auto) (18.3-44.2) % [place] % (Auto) (2.6-8.5) % Eos % (Auto) (0-4.4) % Baso % (Auto) (0.2-1.2) % Lymph # (Auto) (0.9-3.2) K/mm3 [place] # (Auto) (0.1-0.6) K/mm3 Eos # (Auto) (0-0.3) K/mm3 Baso # (Auto) (0.0-0.1) K/mm3 Abs Immat Gran (auto) (0.00-0.031) K/mm3 Absolute Neuts (auto) (1.3-6.7) K/mm3 Absolute Nucleated RBC (0.0-0.012) K/mm3 Nucleated RBC % (0.0-0.2) % PT (11.1-14.7) Seconds INR APTT (22.3-36.8) Seconds Sodium 144 (137-145) mmol/L Potassium 3.0 L (3.4-5.0) mmol/L Chloride 107 (98-107) mmol/L Carbon Dioxide 24 (22-30) mmol/L Anion Gap 13 H (4-12) mmol/L BUN 12 (7-17) mg/dL Creatinine 0.69 L (0.7-1.0) mg/dL Estim Creat Clear Calc 94 ml/min Estimated GFR > 60 (59 - ) Glucose 66 (65-110) mg/dL POC Capillary Glucose 100 49 L* (65-105) mg/dl Lactic Acid (0.7-2.0) mmol/L Calcium 10.5 H (8.4-10.2) mg/dL Phosphorus 2.2 L (2.5-4.5) mg/dL Magnesium 2.0 (1.6-2.3) mg/dL Total Bilirubin 0.6 (0.2-1.3) mg/dL AST 57 H (14-36) U/L ALT 39 H (6-35) U/L Alkaline Phosphatase 82 (38-126) U/L Ammonia < 9 L (9-30) umol/L Total Protein 9.3 H (6.3-8.2) g/dL Albumin 5.2 H (3.5-5.1) g/dL TSH 4.400 (0.465-4.680) uIU/mL Urine Color (Yellow) Urine Appearance (Clear) Urine pH (5.0-9.0) Ur Specific [place] (1.001-1.035) Urine Protein (Negative) mg/dL Urine Glucose (UA) (Negative) mg/dL Urine Ketones (Negative) mg/dL Ur Blood (Man) (Negative) Urine Nitrate (Negative) Urine Bilirubin (Negative) Urine Urobilinogen (<2.0) mg/dL Add Ur Microanalysis Leukocyte Esterase Rfl (Negative) LUISA/UL Urine RBC (0-2) /hpf Urine WBC (0-3) /hpf Ur Squamous Epith Cells (Few) /hpf Urine Bacteria /hpf Urine Casts Urine Yeast (Budding) (None) /hpf POC Urine HCG, Qual (Negative) Nasal MRSA (PCR) Salicylates < 1.0 L (2-20) mg/dL Urine Opiates Screen (Negative) Urine Methadone Screen (Negative) Acetaminophen < 10 L (10-30) ug/mL Ur Barbiturates Screen (Negative) Ur Phencyclidine Scrn (Negative) Ur Amphetamine Screen (Negative) U Benzodiazepines Scrn (Negative) Urine Cocaine Screen (Negative) U Cannabinoids Screen (Negative) Ethyl Alcohol 69 (<10) mg/dL Influenza A (RT-PCR) (Negative) Influenza B (RT-PCR) (Negative) RSV (RT-PCR) (Negative) SARS-CoV-2 RNA (RT-PCR) (Negative) 06/11/25 06/11/25 06/11/25 Range/Units 23:01 23:43 23:53 WBC 7.1 (4.5-10.0) K/mm3 RBC 5.16 (4.2-5.4) M/mm3 Hgb 15.6 H (12.0-15.0) g/dL Hct 46.6 (37.0-47.0) % MCV 90.3 (80-100) fl MCH 30.2 (26-34) pg MCHC 33.5 (32-36) g/dl RDW 13.2 (11.5-14.5) % Plt Count 159 (150-375) k/mm3 MPV 11.3 H (7.4-10.4) fl Immature Gran % (Auto) 0.1 (0-0.5) % Neut % (Auto) 51.7 (45.5-73.1) % Lymph % (Auto) 38.0 (18.3-44.2) % [place] % (Auto) 6.5 (2.6-8.5) % Eos % (Auto) 3.4 (0-4.4) % Baso % (Auto) 0.3 (0.2-1.2) % Lymph # (Auto) 2.70 (0.9-3.2) K/mm3 [place] # (Auto) 0.5 (0.1-0.6) K/mm3 Eos # (Auto) 0.2 (0-0.3) K/mm3 Baso # (Auto) 0.0 (0.0-0.1) K/mm3 Abs Immat Gran (auto) 0.01 (0.00-0.031) K/mm3 Absolute Neuts (auto) 3.7 (1.3-6.7) K/mm3 Absolute Nucleated RBC 0.000 (0.0-0.012) K/mm3 Nucleated RBC % 0.0 (0.0-0.2) % PT 13.4 (11.1-14.7) Seconds INR 1.0 APTT 30.5 (22.3-36.8) Seconds Sodium (137-145) mmol/L Potassium (3.4-5.0) mmol/L Chloride (98-107) mmol/L Carbon Dioxide (22-30) mmol/L Anion Gap (4-12) mmol/L BUN (7-17) mg/dL Creatinine (0.7-1.0) mg/dL Estim Creat Clear Calc ml/min Estimated GFR (59 - ) Glucose (65-110) mg/dL POC Capillary Glucose (65-105) mg/dl Lactic Acid 2.0 (0.7-2.0) mmol/L Calcium (8.4-10.2) mg/dL Phosphorus (2.5-4.5) mg/dL Magnesium (1.6-2.3) mg/dL Total Bilirubin (0.2-1.3) mg/dL AST (14-36) U/L ALT (6-35) U/L Alkaline Phosphatase (38-126) U/L Ammonia (9-30) umol/L Total Protein (6.3-8.2) g/dL Albumin (3.5-5.1) g/dL TSH (0.465-4.680) uIU/mL Urine Color Yellow (Yellow) Urine Appearance Cloudy H (Clear) Urine pH 5.5 (5.0-9.0) Ur Specific [place] 1.010 (1.001-1.035) Urine Protein Negative (Negative) mg/dL Urine Glucose (UA) Negative (Negative) mg/dL Urine Ketones Negative (Negative) mg/dL Ur Blood (Man) 3+ H (Negative) Urine Nitrate Negative (Negative) Urine Bilirubin Negative (Negative) Urine Urobilinogen 0.2 (<2.0) mg/dL Add Ur Microanalysis Reviewed Leukocyte Esterase Rfl Negative (Negative) LUISA/UL Urine RBC 11-20 H (0-2) /hpf Urine WBC 0-5 (0-3) /hpf Ur Squamous Epith Cells Few (Few) /hpf Urine Bacteria Rare /hpf Urine Casts 0-2 Urine Yeast (Budding) Present H (None) /hpf POC Urine HCG, Qual Negative (Negative) Nasal MRSA (PCR) Salicylates (2-20) mg/dL Urine Opiates Screen Negative (Negative) Urine Methadone Screen Negative (Negative) Acetaminophen (10-30) ug/mL Ur Barbiturates Screen Negative (Negative) Ur Phencyclidine Scrn Negative (Negative) Ur Amphetamine Screen Negative (Negative) U Benzodiazepines Scrn Negative (Negative) Urine Cocaine Screen Negative (Negative) U Cannabinoids Screen Positive A (Negative) Ethyl Alcohol (<10) mg/dL Influenza A (RT-PCR) Negative (Negative) Influenza B (RT-PCR) Negative (Negative) RSV (RT-PCR) Negative (Negative) SARS-CoV-2 RNA (RT-PCR) Negative (Negative) 06/12/25 06/12/25 06/12/25 Range/Units 00:17 01:09 01:43 WBC (4.5-10.0) K/mm3 RBC (4.2-5.4) M/mm3 Hgb (12.0-15.0) g/dL Hct (37.0-47.0) % MCV (80-100) fl MCH (26-34) pg MCHC (32-36) g/dl RDW (11.5-14.5) % Plt Count (150-375) k/mm3 MPV (7.4-10.4) fl Immature Gran % (Auto) (0-0.5) % Neut % (Auto) (45.5-73.1) % Lymph % (Auto) (18.3-44.2) % [place] % (Auto) (2.6-8.5) % Eos % (Auto) (0-4.4) % Baso % (Auto) (0.2-1.2) % Lymph # (Auto) (0.9-3.2) K/mm3 [place] # (Auto) (0.1-0.6) K/mm3 Eos # (Auto) (0-0.3) K/mm3 Baso # (Auto) (0.0-0.1) K/mm3 Abs Immat Gran (auto) (0.00-0.031) K/mm3 Absolute Neuts (auto) (1.3-6.7) K/mm3 Absolute Nucleated RBC (0.0-0.012) K/mm3 Nucleated RBC % (0.0-0.2) % PT (11.1-14.7) Seconds INR APTT (22.3-36.8) Seconds Sodium (137-145) mmol/L Potassium (3.4-5.0) mmol/L Chloride (98-107) mmol/L Carbon Dioxide (22-30) mmol/L Anion Gap (4-12) mmol/L BUN (7-17) mg/dL Creatinine (0.7-1.0) mg/dL Estim Creat Clear Calc ml/min Estimated GFR (59 - ) Glucose (65-110) mg/dL POC Capillary Glucose 60 L 56 L* 150 H (65-105) mg/dl Lactic Acid (0.7-2.0) mmol/L Calcium (8.4-10.2) mg/dL Phosphorus (2.5-4.5) mg/dL Magnesium (1.6-2.3) mg/dL Total Bilirubin (0.2-1.3) mg/dL AST (14-36) U/L ALT (6-35) U/L Alkaline Phosphatase (38-126) U/L Ammonia (9-30) umol/L Total Protein (6.3-8.2) g/dL Albumin (3.5-5.1) g/dL TSH (0.465-4.680) uIU/mL Urine Color (Yellow) Urine Appearance (Clear) Urine pH (5.0-9.0) Ur Specific [place] (1.001-1.035) Urine Protein (Negative) mg/dL Urine Glucose (UA) (Negative) mg/dL Urine Ketones (Negative) mg/dL Ur Blood (Man) (Negative) Urine Nitrate (Negative) Urine Bilirubin (Negative) Urine Urobilinogen (<2.0) mg/dL Add Ur Microanalysis Leukocyte Esterase Rfl (Negative) LUISA/UL Urine RBC (0-2) /hpf Urine WBC (0-3) /hpf Ur Squamous Epith Cells (Few) /hpf Urine Bacteria /hpf Urine Casts Urine Yeast (Budding) (None) /hpf POC Urine HCG, Qual (Negative) Nasal MRSA (PCR) Salicylates (2-20) mg/dL Urine Opiates Screen (Negative) Urine Methadone Screen (Negative) Acetaminophen (10-30) ug/mL Ur Barbiturates Screen (Negative) Ur Phencyclidine Scrn (Negative) Ur Amphetamine Screen (Negative) U Benzodiazepines Scrn (Negative) Urine Cocaine Screen (Negative) U Cannabinoids Screen (Negative) Ethyl Alcohol (<10) mg/dL Influenza A (RT-PCR) (Negative) Influenza B (RT-PCR) (Negative) RSV (RT-PCR) (Negative) SARS-CoV-2 RNA (RT-PCR) (Negative) 06/12/25 Range/Units 01:54 WBC (4.5-10.0) K/mm3 RBC (4.2-5.4) M/mm3 Hgb (12.0-15.0) g/dL Hct (37.0-47.0) % MCV (80-100) fl MCH (26-34) pg MCHC (32-36) g/dl RDW (11.5-14.5) % Plt Count (150-375) k/mm3 MPV (7.4-10.4) fl Immature Gran % (Auto) (0-0.5) % Neut % (Auto) (45.5-73.1) % Lymph % (Auto) (18.3-44.2) % [place] % (Auto) (2.6-8.5) % Eos % (Auto) (0-4.4) % Baso % (Auto) (0.2-1.2) % Lymph # (Auto) (0.9-3.2) K/mm3 [place] # (Auto) (0.1-0.6) K/mm3 Eos # (Auto) (0-0.3) K/mm3 Baso # (Auto) (0.0-0.1) K/mm3 Abs Immat Gran (auto) (0.00-0.031) K/mm3 Absolute Neuts (auto) (1.3-6.7) K/mm3 Absolute Nucleated RBC (0.0-0.012) K/mm3 Nucleated RBC % (0.0-0.2) % PT (11.1-14.7) Seconds INR APTT (22.3-36.8) Seconds Sodium (137-145) mmol/L Potassium (3.4-5.0) mmol/L Chloride (98-107) mmol/L Carbon Dioxide (22-30) mmol/L Anion Gap (4-12) mmol/L BUN (7-17) mg/dL Creatinine (0.7-1.0) mg/dL Estim Creat Clear Calc ml/min Estimated GFR (59 - ) Glucose (65-110) mg/dL POC Capillary Glucose (65-105) mg/dl Lactic Acid (0.7-2.0) mmol/L Calcium (8.4-10.2) mg/dL Phosphorus (2.5-4.5) mg/dL Magnesium (1.6-2.3) mg/dL Total Bilirubin (0.2-1.3) mg/dL AST (14-36) U/L ALT (6-35) U/L Alkaline Phosphatase (38-126) U/L Ammonia (9-30) umol/L Total Protein (6.3-8.2) g/dL Albumin (3.5-5.1) g/dL TSH (0.465-4.680) uIU/mL Urine Color (Yellow) Urine Appearance (Clear) Urine pH (5.0-9.0) Ur Specific [place] (1.001-1.035) Urine Protein (Negative) mg/dL Urine Glucose (UA) (Negative) mg/dL Urine Ketones (Negative) mg/dL Ur Blood (Man) (Negative) Urine Nitrate (Negative) Urine Bilirubin (Negative) Urine Urobilinogen (<2.0) mg/dL Add Ur Microanalysis Leukocyte Esterase Rfl (Negative) LUISA/UL Urine RBC (0-2) /hpf Urine WBC (0-3) /hpf Ur Squamous Epith Cells (Few) /hpf Urine Bacteria /hpf Urine Casts Urine Yeast (Budding) (None) /hpf POC Urine HCG, Qual (Negative) Nasal MRSA (PCR) Pending Salicylates (2-20) mg/dL Urine Opiates Screen (Negative) Urine Methadone Screen (Negative) Acetaminophen (10-30) ug/mL Ur Barbiturates Screen (Negative) Ur Phencyclidine Scrn (Negative) Ur Amphetamine Screen (Negative) U Benzodiazepines Scrn (Negative) Urine Cocaine Screen (Negative) U Cannabinoids Screen (Negative) Ethyl Alcohol (<10) mg/dL Influenza A (RT-PCR) (Negative) Influenza B (RT-PCR) (Negative) RSV (RT-PCR) (Negative) SARS-CoV-2 RNA (RT-PCR) (Negative) ABG Data ABG results: 06/11/25 22:41 VBG pH 7.321 VBG pCO2 42.8 VBG pO2 62.0 H VBG HCO3 21.6 L O2 Delivery Device Room air O2 Liters/Min Not Reportable Critical Care Time Critical Care Time Critical Care Time: Yes Time Type: Intermittent Initial evaluation, discuss w/ involved parties, attempting to gather old records: 15 minutes Documenting medical record: 15 minutes Review of results (EKG's, labs, imaging): 5 minutes Serial repeat bedside evaluation: 20 minutes Discussing case with multiple memebers of the care team and consultants: 20 minutes Total Critical Care Time: 75 Discharge Plan Discharge Clinical Impression: Intentional overdose of insulin, Alcohol use, Acute hypokalemia, Hypophosphatemia Patient Disposition: Still a Patient Condition: Guarded Prognosis Patient Language: Marshallese Prescriptions: No Action pregabalin 100 mg capsule 200 mg PO TID ondansetron 4 mg tablet,disintegrating 4 mg PO Q6-8H PRN (Reason: nausea and vomiting) Qty: 20 0RF insulin aspart U-100 [Novolog U-100 Insulin aspart] 100 unit/mL Solution 1 sliding scale dose SUBCUT USEASDIRECTD albuterol sulfate 90 mcg/actuation HFA aerosol inhaler 90 mcg INHALATION DAILY hydroxyzine pamoate 25 mg capsule 25 mg PO HS duloxetine 60 mg capsule,delayed release(DR/EC) See Rx Instructions .ROUTE .COMPLEX Rx Instructions: TAKE 1 CAPSULE BY MOUTH EVERY DAY FOR NERVE PAIN thiamine HCl (vitamin B1) [Vitamin B-1] 100 mg Tablet 100 mg PO QAM Qty: 30 0RF folic acid 1 mg Tablet 1 mg PO DAILY Qty: 30 0RF ferrous sulfate 325 mg (65 mg iron) tablet 325 mg PO BID Qty: 60 0RF buspirone 10 mg tablet 30 mg PO BID dextroamphetamine sulfate 30 mg tablet 30 mg PO DAILY@1400 dextroamphetamine-amphetamine 30 mg capsule,extended release 24hr 30 mg PO DAILY@0630 hydroxyzine HCl 10 mg tablet 10 mg PO TID PRN (Reason: anxiety) Rx Instructions: TAKE 1 TO 2 TABLETS BY MOUTH UP TO THREE TIMES DAILY insulin glargine [Lantus Solostar U-100 Insulin] 100 unit/mL (3 mL) insulin pen 30 unit SUBCUT QPM insulin lispro 100 unit/mL insulin pen 10 unit SUBCUT TIDWMEAL Follow-up/Referrals: Fly,MD Skinny [Primary Care Provider, Unknown] Time of Disposition: 02:29
[2025-06-11 23:08] LABS: Hematocrit 46.6 % (37.0-47.0); Hemoglobin 15.6 g/dL (12.0-15.0); Immature Granulocyte Percent A 0.1 % (0-0.5); Lymphocytes Absolute Auto 2.70 K/mm3 (0.9-3.2); Mean Corpuscular HGB Conc 33.5 g/dl (32-36); Mean Corpuscular Hemoglobin 30.2 pg (26-34); Mean Corpuscular Volume 90.3 fl (80-100); Nucleated Red Blood Cells Absolute Auto 0.000 K/mm3 (0.0-0.012); Nucleated Red Blood Cells Perc 0.0 % (0.0-0.2); Platelet Count Result 159 k/mm3 (150-375); Red Blood Count 5.16 M/mm3 (4.2-5.4); White Blood Count 7.1 K/mm3 (4.5-10.0)
[2025-06-11 23:08] LABS: Acetaminophen < 10 ug/mL (10-30); Ammonia < 9 umol/L (9-30); Salicylate < 1.0 mg/dL (2-20)
[2025-06-11 23:15] LABS: HCO3 VBG 21.6 mEq/l (24.0-30.0); PCO2 VBG 42.8 mmHg (42.0-48.0); PO2 VBG 62.0 mmHg (35.0-45.0); pH VBG 7.321 (7.300-7.400)
[2025-06-11 23:22] LABS: Alanine Aminotransferase 39 U/L (6-35); Albumin Level 5.2 g/dL (3.5-5.1); Alkaline Phosphatase 82 U/L (38-126); Anion Gap 13 mmol/L (4-12); Aspartate Amino Transferase 57 U/L (14-36); Bilirubin,Total 0.6 mg/dL (0.2-1.3); Blood Urea Nitrogen 12 mg/dL (7-17); Calcium 10.5 mg/dL (8.4-10.2); Carbon Dioxide 24 mmol/L (22-30); Chloride 107 mmol/L (98-107); Estimated CRCL calculation 94 ml/min; Estimated Glomerular Filt Rate > 60; Glucose 66 mg/dL (65-110); Magnesium 2.0 mg/dL (1.6-2.3); Potassium 3.0 mmol/L (3.4-5.0); Sodium 144 mmol/L (137-145); Total Protein 9.3 g/dL (6.3-8.2)
[2025-06-11 23:23] LABS: INR 1.0; Prothrombin Time 13.4 Seconds (11.1-14.7)
[2025-06-11 23:24] LABS: Partial Thromboplastin Time 30.5 Seconds (22.3-36.8)
[2025-06-11 23:45] LABS: BEDSIDEPREGUCG Negative (Negative)
--- NOTE | 2025-06-11 23:45 | PC.NURSE ---
Pt columbia score indicates no risk, initiated suicide precautions due past hx of suicide attempts and multiple hospital visits due to insulin overdose
[2025-06-11 23:46] LABS: Influenza A QL RT-PCR Negative (Negative); Influenza B QL RT-PCR Negative (Negative); RSV RNA, RT-PCR Negative (Negative); SARS-CoV-2 RNA PCR Negative (Negative)
[2025-06-11] MEDS: FAMOTIDINE 20 MG/2 ML VIAL IV PUSH (23:47)
[2025-06-11] MEDS: ONDANSETRON INJ 4 MG/2 ML VIAL IV PUSH (23:47)
[2025-06-11] MEDS: DEXTROSE 10% 1,000 ML 50 ML IV CONT (23:48)
[2025-06-11] MEDS: SODIUM CHLORIDE 0.9% IV 1,000 ML 999 ML IV CONT (23:48)
[2025-06-11 23:54] LABS: Thyroid Stimulating Hormone 4.400 uIU/mL (0.465-4.680)
[2025-06-11 23:56] VITALS: O2SAT 97
[2025-06-11 23:57] VITALS: RESP 18
[2025-06-12] VITALS (13 sets, daily range): BP systolic 108–141; BP diastolic 64–80; PULSE 70–97; RESP 14–18; TEMP 36.7–36.9; O2SAT 97–100; BMI 28.3
[2025-06-12 00:20] LABS: Cannabinoid Screen Urine Positive (Negative)
[2025-06-12 00:32] LABS: Add Urine Microscopic? YES; Appearance Urine Cloudy (Clear); Budding Yeast Urine Present /hpf; Glucose Urine UA Negative (Negative); Leukocyte Esterase Ur Negative LEU/UL (Negative); Need Manual Microscopic Reviewed; Nitrate Urine Negative (Negative); Non Pathogenic Casts 0-2; Specific Grav Ur 1.010 (1.001-1.035)
[2025-06-12] MEDS: DEXTROSE 50% 25 GM/50 ML SYRINGE IV PUSH (01:10)
[2025-06-12] MEDS: POTASSIUM PHOS,M-BASIC-D-BASIC 20 MMOL in SODIUM CHLORIDE 0.9% IV 250 ML 64.17 MMOL IVPB (01:14)
[2025-06-12] MEDS: OCTREOTIDE ACETATE 50 MCG/ML VIAL IV PUSH (01:58)
[2025-06-12] MEDS: GLUCAGON FOR INJ 1 MG VIAL IM (01:59)
--- NOTE | 2025-06-12 02:48 | PC.NURSE ---
Per verbal order from EDP, hold dextrose due to BS of 250
[2025-06-12 03:17] LABS: MRSA (PCR) NOT DETECTED (NOT DETECTE)
[2025-06-12] MEDS: METOCLOPRAMIDE HCL INJ 10 MG/2 ML VIAL IV PUSH (03:28)
--- NOTE | 2025-06-12 05:18 | PM.IMHP2 ---
H&P: HPI History of Present Illness Date/Time: 06/12/25 05:18 Chief Complaint: Though blood sugar from insulin overdose. Narrative: This is a 45-year-old female patient who has a history of diabetes type 1, COPD, and depression. The patient was previously admitted to the ICU on 06/28/2024 with intentional overdose of insulin. She has had a history of depression with a suicide attempt in the past. The patient presented to the emergency room via EMS after her fiance called when he noticed that the patient took double doses of her home insulin and was drinking throughout the evening. The patient had been intoxicated on arrival to ED. The patient believes that she may have taken 38 units x 2 over insulin. She was not admitting to what type of insulin she took if it was a long-acting or short-acting. EMS found the patient have a blood sugar of 20 and was given 250 mL of D10 and her blood sugar improved to 136. The patient was more awake but intoxicated. Blood sugars in the ER 49, 60, 56, 150, 250, 239, 249, and 227. Her lactic acid was 2.0. The patient was given D50 25 mg x 2, Pepcid, glucagon, Reglan, IV fluids come octreotide and Zofran. Patient was also started on a D10 IV continuous. Patient was more awake when I talked to her in the emergency room. The patient was positive for cannabis. She was negative for influenza a, influenza B, RSV and COVID. The ER provider spoke with the ware carrier and agreed to the admission ICU. Review of Systems Constitutional: Constitutional: Reports as per HPI and Reports no additional constitutional complaints Eyes: Eyes: Reports as per HPI and Reports no additional eye complaints ENT: Reports system reviewed and no additional complaints, except as documented and Reports Normal hearing present Cardiovascular: Cardiovascular: Reports no additional cardiovascular complaints Respiratory: Respiratory: Reports as per HPI and Reports no additional respiratory complaints Gastrointestinal: Gastrointestinal: Reports as per HPI and Reports no additional gastrointestinal complaints Genitourinary: Genitourinary: Reports no additional female genitourinary complaints Musculoskeletal: Musculoskeletal: Reports no additional musculoskeletal complaints Integumentary/Breasts: Skin/Breast: Reports system reviewed and no additional complaints, except as docu Neurologic: Reports system reviewed and no additional complaints, except as documented and Reports Normal hearing present Psychiatric: Psychiatric: Reports no additional psychiatric complaints and Reports as per HPI Hematologic/Lymphatic: Hematologic/Lymphatic: Reports no additional hematologic/lymphatic complaints Allergic/Immunologic: Allergic/Immunologic: Reports no additional allergic/immunologic complaints [facility] Past Medical History Medical History COPD (chronic obstructive pulmonary disease) Type 1 diabetes mellitus Bipolar disorder Neuropathy Chronic pancreatitis Dyslipidemia Anxiety Depression Hepatitis DVT (deep venous thrombosis) Necrotizing pancreatitis Surgical History Surgical History History of wisdom tooth extraction History of tubal ligation History of ERCP (06/2019) History of surgery on arm (2019) Left History of section 2003, 2010, 2015 Family History Family History Mother Diabetes mellitus Family history of coronary artery disease Family history of dementia Social History Social History (Updated 06/12/25 @ 06:58 by Thelma Mensah APRN) Social History: She has 3 children . She lives with her skilled nursing partner Billy. She works at the [employer] Surrogate medical decision maker: Billy Wright, friend. Code status: Full code. Smoking packs per day: 0.5 Smoking cigarettes per day: 10.0 Years smoked: 20 Smoking pack-years: 10.00 Smoking status: Former smoker Tobacco type: cigarettes Second hand tobacco smoke exposure: Yes Additional smoking assessment comments: quit 4 months ago Alcohol intake: current Drinks per week: 42 Substance use: current Substance use type: former substance user, marijuana and painkillers Last use: 03/10/2024 Lack of Transportation: No Lack of Food: Sometimes True Current Housing: I Have Housing Concerned About Future Housing: Decline to Answer Difficulty Paying Gas/Electric Bills: Decline to Answer Difficulty Paying for Meds: Decline to Answer Currently Unemployed: Decline to Answer Education: Decline to Answer Difficulty w/ Childcare or Family Care: Decline to Answer Additional occupation/education comments: Unemployed. Spiritual care concerns: No Meds Home Medications and Allergies Home Medications ?Medication ?Instructions ?Recorded ?Confirmed ?Type insulin aspart U-100 100 unit/mL 1 sliding scale dose subcut 07/01/21 06/25/24 History subcutaneous solution (Novolog USEASDIRECTD U-100 Insulin aspart) pregabalin 100 mg capsule 200 mg PO TID 02/24/22 06/25/24 History albuterol sulfate 90 mcg/actuation 90 mcg inhalation DAILY 03/10/24 06/25/24 History aerosol inhaler duloxetine 60 mg capsule,delayed See Rx Instructions .Route .COMPLEX 03/10/24 06/25/24 History release hydroxyzine pamoate 25 mg capsule 25 mg PO HS 03/10/24 06/25/24 History ferrous sulfate 325 mg (65 mg 325 mg PO BID #60 tabs 03/12/24 06/25/24 Rx iron) tablet folic acid 1 mg tablet 1 mg PO DAILY #30 tabs 03/12/24 06/25/24 Rx thiamine HCl (vitamin B1) 100 mg 100 mg PO QAM #30 tabs 03/12/24 06/25/24 Rx tablet (Vitamin B-1) buspirone 10 mg tablet 30 mg PO BID anxiety 06/25/24 06/25/24 History dextroamphetamine sulfate 30 mg 30 mg PO DAILY@1400 06/25/24 06/25/24 History tablet dextroamphetamine-amphetamine ER 30 mg PO DAILY@0630 06/25/24 06/25/24 History 30 mg 24hr capsule,extend release hydroxyzine HCl 10 mg tablet 10 mg PO TID PRN anxiety 06/25/24 06/25/24 History insulin glargine 100 unit/mL (3 30 unit subcut QPM 06/25/24 06/25/24 History mL) subcutaneous pen (Lantus Solostar U-100 Insulin) insulin lispro 100 unit/mL 10 unit subcut TIDWMEAL 06/25/24 06/28/24 History subcutaneous pen ondansetron 4 mg disintegrating 4 mg PO Q6-8H PRN nausea and 03/23/25 Rx tablet vomiting #20 tabs Allergies Allergy/AdvReac Type Severity Reaction Status Date / Time No Known Allergies Allergy Unknown Verified 06/25/24 07:47 Vital Signs Vital Signs - 24 hr 06/11/25 22:34 06/11/25 23:56 06/11/25 23:57 Temperature 98.0 F Pulse Rate 69 Respiratory Rate 17 18 Blood Pressure 100/63 Pulse Oximetry 100 97 Oxygen Delivery Room Air Room Air Exam Const: General: cooperative, healthy appearing, comfortable, no acute distress, well developed, awake, Physically active, average body habitus and well nourished Nutritional Appearance: average body habitus and well nourished Orientation/consciousness: oriented to person and oriented to place HENMT: Head: normal to inspection, No palpable skull fracture present, normocephalic, atraumatic and abrasion Ears: hearing grossly normal bilaterally Eyes: General: appearance normal, both eyes and all related structures Pupils: Equal, round and reactive pupils present and Pupil accommodation reflex normal Neck: Neck: normal visual inspection, full ROM and no lymphadenopathy Chest: Chest palpation & inspection: normal inspection of the chest Resp: Effort & Inspection: normal respiratory effort Auscultation: clear to auscultation bilaterally Percussion: percussion normal Cardio: Palpation: normal PMI Rate: regular rate Rhythm: regular rhythm Heart sounds: S1 normal heart sound present and S2 normal heart sound present Peripheral pulses: Peripheral pulses 2+ throughout GI: Inspection: normal to inspection Percussion: Yes normal to percussion Auscultation: normal bowel sounds Rectal Exam: deferred : General: Yes no CVA tenderness Back/Spine/Pelvis: Back: no CVA tenderness Cervical Spine: cervical ROM normal Thoracic/Lumbar Spine: thoracic and lumbar spine normal to inspection Pelvis: no pain with anterior-posterior compression Skin: General skin exam: normal color Lesions: no lesions Rashes: no rashes Trauma: no lacerations or abrasions Wounds: no wounds Hair: normal Nails: normal Neuro: General: oriented to person and oriented to place Cranial nerves: Yes Equal, round and reactive pupils present and Yes Normal hearing present Cognition (Neuro): normal cognition Speech: normal speech Extrem: General: normal to inspection Right upper extremity: normal to inspection and shoulder/upper arm Left upper extremity: normal to inspection and shoulder/upper arm Right lower extremity: normal to inspection Left lower extremity: normal to inspection Psych: Appearance: grossly normal Mental Status: mental status grossly normal Speech and movement: Normal speech and movement present Affect: normal affect Attitude: cooperative Thought process: Normal thought process present Thought content: Yes Normal thought content present Results Labs Labs: Short CBC 06/11/25 Range/Units 23:01 WBC 7.1 (4.5-10.0) K/mm3 Hgb 15.6 H (12.0-15.0) g/dL Hct 46.6 (37.0-47.0) % Plt Count 159 (150-375) k/mm3 BMP 06/11/25 22:53 Sodium 144 Potassium 3.0 L Chloride 107 Carbon Dioxide 24 BUN 12 Creatinine 0.69 L Glucose 66 Calcium 10.5 H Liver Function 06/11/25 Range/Units 22:53 Total Bilirubin 0.6 (0.2-1.3) mg/dL AST 57 H (14-36) U/L ALT 39 H (6-35) U/L Alkaline Phosphatase 82 (38-126) U/L Albumin 5.2 H (3.5-5.1) g/dL Urine 06/11/25 Range/Units 23:53 Urine Color Yellow (Yellow) Urine Appearance Cloudy H (Clear) Urine pH 5.5 (5.0-9.0) Ur Specific [place] 1.010 (1.001-1.035) Urine Protein Negative (Negative) mg/dL Urine Glucose (UA) Negative (Negative) mg/dL ECG Interpretation: Test Date: 2025-06-11 23:10:43 Measurements Intervals [place] Rate: 61 P: 57 [place]: 169 QRS: 7 QRSD: 110 T: 50 QT: 466 QTc: 472 Interpretive Statements SINUS RHYTHM DELAYED PRECORDIAL R/S TRANSITION MINIMAL Q WAVES- HIGH LATERAL LEADS BORDERLINE ECG Compared to ECG 07/15/2024 18:34:41 No significant changes Quality VTE Prophylaxis VTE prophylaxis: mechanical ordered Assessment and Plan Assessment and plan (1) Intentional overdose of insulin: Code(s): T38.3X2A - Poisoning by insulin and oral hypoglycemic [antidiabetic] drugs, intentional self-harm, initial encounter Status: Acute Assessment and Plan: -the patient was unclear of how much insulin she had taken. -the patient has done this in the past 06/27/2024 the patient was admitted for intentional overdose of insulin. She does have a history of depression and a suicide attempt in the past. -she is a diabetic and on insulin. -The patient had severe hypoglycemic event. -she was given 2 doses of IV D50 pushes and then started on a D10 drip was given and is now has been discontinued as Her blood sugars are now in the 200s. According to the ER records the patient was intoxicated upon arrival and now she is more awake and talking. -crisis has been consulted. (2) Anxiety: Code(s): F41.9 - Anxiety disorder, unspecified Status: Acute Assessment and Plan: -may resume her BuSpar and her hydroxyzine when her home medications are reconciled. (3) Depression: Qualifiers: Depression Type: unspecified Qualified Code(s): F32.9 - Major depressive disorder, single episode, unspecified Code(s): F32.9 - Major depressive disorder, single episode, unspecified Status: Acute Assessment and Plan: -resume duloxetine and BuSpar went home medications have been reconciled. Crisis has been consulted. (4) Type 1 diabetes mellitus: Code(s): E10.9 - Type 1 diabetes mellitus without complications Status: Acute Assessment and Plan: Accu-Cheks every 6 hours with hypoglycemic protocol.
--- NOTE | 2025-06-12 09:13 | WPCEDHO ---
ED Hand Off Checklist All vitals saved: YES IV Site documented: YES All med administrations documented: YES Triage Note Triage Note Pt arrives to ED via EMS from 06/11/25 22:34 home with hypoglycemic episode, pt states she took 38 units of lantus and accidently took 2 doses of humalog but does not recall how much. Pt's initial BS 20 in route recheck 136. Pt received 250 ml of D10 while in route, BS on arrival 100. Pt admits to drinking a pint of vodka tonight Allergies No Known Allergies Allergy (Unknown, Verified 06/25/24 07:47) Current Diagnoses Type 1 diabetes mellitus without complications (06/12/25) Major depressive disorder, single episode, unspecified (06/12/25) Anxiety disorder, unspecified (06/12/25) Poisoning by insulin and oral hypoglycemic [antidiabetic] drugs, intentional self-harm, initial encounter (06/12/25) Family History (Last Reviewed 06/12/25 @ 06:58 by Thelma Mensah, FASHION JOURNALIST) Mother Diabetes mellitus Family history of coronary artery disease Family history of dementia Active Medications including assessments/comments Dextrose 83 ml/ Dextrose 500 mls @ 50 mls/hr IV CONT .Q10H EDIE Last Infusion: 06/12/25 02:48 Dose: 0 mls/hr Documented By: SAADIAW Infusion/Titration Document 06/12/25 02:48 ADILSON (Rec: 06/12/25 02:48 SAADIAW [id number]) Intake IV Site Peripheral Access Right Antecubital Intake 36 Cumulative Intake ( 36 bag) Cumulative Intake ( 36 Rx) Container Volume 464 Waste Amount 0 Dosing Infusion Rate 0 Cumulative Dose 5.976 Increase/Decrease Paused Elapsed Time Elapsed Time ( 36m minutes) Admin: 06/12/25 02:12 Dose: 60 mls/hr Documented By: SAADIAW Infusion/Titration Document 06/12/25 02:12 SAADIAW (Rec: 06/12/25 02:13 SAADIAW [id number]) Intake IV Site Peripheral Access Right Antecubital Container Volume 500 Waste Amount 0 Dosing Infusion Rate 60 Increase/Decrease Started Elapsed Time Elapsed Time ( 0m minutes) Administered/Completed Medications Discontinued Medications Dextrose (Dextrose 50% 25 Gm/50 Ml Syringe) 25 gm IV PUSH ONCE ONE Stop: 06/12/25 00:26 Last Admin: 06/12/25 01:10 Dose: 25 gm Documented By: ADILSON Dextrose (Dextrose 50% 25 Gm/50 Ml Syringe) 25 gm IV PUSH ONCE ONE Stop: 06/12/25 01:29 Last Admin: 06/12/25 01:59 Dose: Not Given Documented By: ADILSON Non-Admin Reason: Order Discontinued Famotidine (Famotidine 20 Mg/2 Ml Vial) 20 mg IV PUSH ONCE STA Stop: 06/11/25 22:50 Last Admin: 06/11/25 23:47 Dose: 20 mg Documented By: ADILSON Glucagon (Glucagon For Inj 1 Mg Vial) 1 mg IM ONCE ONE Stop: 06/12/25 01:29 Last Admin: 06/12/25 01:59 Dose: 1 mg Documented By: ADILSON Sodium Chloride (Normal Saline Iv) 1,000 mls @ 999 mls/hr IV CONT .Q1H1M STA Stop: 06/11/25 23:41 Last Infusion: 06/12/25 01:20 Dose: Infused Documented By: Admin: 06/11/25 23:48 Dose: 999 mls/hr Documented By: ADILSON Dextrose (Dextrose 10%) 1,000 mls @ 150 mls/hr IV CONT .Q6H40M [facility] Last Infusion: 06/12/25 01:57 Dose: Infused Documented By: Infusion: 06/12/25 00:28 Dose: 100 mls/hr Documented By: Admin: 06/11/25 23:48 Dose: 50 mls/hr Documented By: ADILSON Potassium Phosphate 20 mmol/ (Sodium Chloride) 256.6667 mls @ 64.167 mls/hr IVPB ONCE ONE Stop: 06/12/25 04:30 Last Infusion: 06/12/25 05:55 Dose: Infused Documented By: Admin: 06/12/25 01:14 Dose: 64.17 mls/hr Documented By: ADILSON Co-signed By: SESAR Metoclopramide HCl (Metoclopramide Hcl Inj 10 Mg/2 Ml Vial) 10 mg IV PUSH ONCE STA Stop: 06/12/25 02:15 Last Admin: 06/12/25 03:28 Dose: 10 mg Documented By: ADILSON Octreotide Acetate (Octreotide Acetate 50 Mcg/Ml Vial) 50 mcg IV PUSH ONCE STA Stop: 06/12/25 01:29 Last Admin: 06/12/25 01:58 Dose: 50 mcg Documented By: ADILSON Ondansetron HCl (Ondansetron Inj 4 Mg/2 Ml Vial) 4 mg IV PUSH ONCE STA Stop: 06/11/25 22:50 Last Admin: 06/11/25 23:47 Dose: 4 mg Documented By: ADILSON Notes 06/12/25 02:48 Nurse Note by Bridgett Fuller Per verbal order from EDP, hold dextrose due to BS of 250 Initialized on 06/12/25 02:48 - END OF NOTE 06/11/25 23:45 Nurse Note by Bridgett Fuller Pt columbia score indicates no risk, MD initiated suicide precautions due past hx of suicide attempts and multiple hospital visits due to insulin overdose Initialized on 06/11/25 23:45 - END OF NOTE Interventions/Assessments General Assessment Start: 06/11/25 22:03 Freq: Status: Active Protocol: Document 06/11/25 23:56 ADILSON (Rec: 06/11/25 23:57 SAADIAW [id number]) [place] Neurological Assessment Neurological Yes Assessment WNL Level of Alert,Drowsy Consciousness Arousable to Verbal Orientation Oriented to Person,Oriented to Place,Oriented to Time Behavior Appropriate,Cooperative Patient Able to Comprehend Comprehension Memory Description Intact Facial Symmetry Symmetrical Speech Pattern Clear IV / Saline Lock, Insert Start: 06/11/25 22:03 Freq: Status: Active Protocol: Document 06/11/25 23:42 DJW (Rec: 06/11/25 23:42 SAADIAW [id number]) IV Assessment Peripheral Access Right Lateral Antecubital IV Catheter Access Initiated IV Insertion Date 06/11/25 IV Insertion Time 23:42 Catheter Gauge 20 IV Insertion 1 Attempts IV Site Assessment WNL IV Care and WNL Maintenance PA: Cardiovascular Assessment Start: 06/11/25 22:04 Freq: Status: Active Protocol: Document 06/11/25 23:56 DJW (Rec: 06/11/25 23:57 DJW [id number]) Cardiovascular Assessment Cardiovascular None Symptoms Skin Description Normal Color PA: Neurological Assessment Start: 06/11/25 22:03 Freq: Status: Active Protocol: Document 06/11/25 23:56 SAADIAW (Rec: 06/11/25 23:57 SAADIAW [id number]) Neurological Assessment Level of Alert,Drowsy Consciousness Arousable to Verbal Orientation Oriented to Person,Oriented to Place,Oriented to Time Neurological None Symptoms Hallucination Type None Behavior Appropriate,Cooperative Patient Able to Comprehend Comprehension Memory Description Intact Facial Symmetry Symmetrical [place] Coma Scale Eyes Open Verbal Oriented and Alert Motor Follows Commands Supriya Coma Total 15 Score PA: Respiratory Assessment Start: 06/11/25 22:04 Freq: Status: Active Protocol: Document 06/11/25 23:56 DJ (Rec: 06/11/25 23:57 DJW [id number]) Respiratory Assessment Symptoms None Effort Normal Pattern Regular Depth Normal Chest Expansion Symmetrical Oxygen Delivery Oxygen Delivery Room Air Pulse Oximetry (90- 97 100) Last Vital Signs Temperature 98.0 F 06/11/25 22:34 Pulse Rate 74 06/12/25 09:12 Respiratory Rate 14 06/12/25 09:12 Pulse Oximetry 98 06/12/25 09:12 Blood Pressure 108/64 06/12/25 09:12 Blood Pressure Mean 78 06/12/25 09:12 Blood Pressure Position Supine 06/12/25 09:12 Oxygen Delivery Room Air 06/11/25 23:56 Weight 86.7 kg 06/11/25 22:34 Last Result - Abnormals Only Hgb 15.6 g/dL (12.0-15.0) H 06/11/25 23:01 MPV 11.3 fl (7.4-10.4) H 06/11/25 23:01 VBG pO2 62.0 mmHg (35.0-45.0) H 06/11/25 22:41 VBG HCO3 21.6 mEq/l (24.0-30.0) L 06/11/25 22:41 Potassium 3.0 mmol/L (3.4-5.0) L 06/11/25 22:53 Anion Gap 13 mmol/L (4-12) H 06/11/25 22:53 Creatinine 0.69 mg/dL (0.7-1.0) L 06/11/25 22:53 POC Capillary Glucose 211 mg/dl (65-105) H 06/12/25 07:18 Calcium 10.5 mg/dL (8.4-10.2) H 06/11/25 22:53 Phosphorus 2.2 mg/dL (2.5-4.5) L 06/11/25 22:53 AST 57 U/L (14-36) H 06/11/25 22:53 ALT 39 U/L (6-35) H 06/11/25 22:53 Ammonia < 9 umol/L (9-30) L 06/11/25 22:53 Total Protein 9.3 g/dL (6.3-8.2) H 06/11/25 22:53 Albumin 5.2 g/dL (3.5-5.1) H 06/11/25 22:53 Urine Appearance Cloudy (Clear) H 06/11/25 23:53 Ur Blood (Man) 3+ (Negative) H 06/11/25 23:53 Urine RBC 11-20 /hpf (0-2) H 06/11/25 23:53 Urine Yeast (Budding) Present /hpf (None) H 06/11/25 23:53 Salicylates < 1.0 mg/dL (2-20) L 06/11/25 22:53 Acetaminophen < 10 ug/mL (10-30) L 06/11/25 22:53 U Cannabinoids Screen Positive (Negative) A 06/11/25 23:53 Most Recent Suicide Severity Rating Suicide Severity Rating NO RISK INDICATED 06/11/25 23:41
--- NOTE | 2025-06-12 10:06 | PC.NURSE ---
This patient, Marisa Lott, was admitted to Intensive Care Unit-6. Patient/family oriented to hospital policies and general routines including ID bracelet, bed and alarms, visiting hours, pain management, procedures, bathroom and other care routines, personal items, smoking policy, room service/diet, and visiting hours. Information on how to activate the Rapid Response Team has been discussed. Patient/Family are encouraged to report perceived risks to care and to ask questions if they do not understand what they are told or what they should do.
--- NOTE | 2025-06-12 12:01 | P.CONIN_ITS ---
Assessment and Plan Assessment and plan (1) Hypoglycemia: Code(s): E16.2 - Hypoglycemia, unspecified Status: Acute Assessment and Plan: Hyperglycemia as patient took Lantus and lispro without eating anything. Blood glucose have now improved. Patient was on D20 I have transition her to D5 half-normal with potassium and will continue monitoring blood sugar and wean blood glucose off Patient is now alert oriented and diet is ordered Patient does have history of suicide attempt with intentional overdose of insulin but at this point patient denies taking any excessive insulin. She admits she to Lantus 38 units and 8 units of lispro but did not eat anything which could explain hypoglycemia. She does admit to dealing with a lot of stress but but denies any suicidal homicidal ideation At this point I will continue one-to-one sitter and suicide precaution Once medically patient is improved I will have a crisis evaluate patient Continue her psychiatric medications Wellbutrin, buspirone, Lyrica and topiramate (2) Diabetes mellitus: Code(s): E11.9 - Type 2 diabetes mellitus without complications Status: Acute Assessment and Plan: See above (3) Depression: Qualifiers: Depression Type: unspecified Qualified Code(s): F32.9 - Major depressive disorder, single episode, unspecified Code(s): F32.9 - Major depressive disorder, single episode, unspecified Status: Acute Assessment and Plan: See above (4) Electrolyte abnormality: Code(s): E87.8 - Other disorders of electrolyte and fluid balance, not elsewhere classified Status: Acute Assessment and Plan: Received potassium and phosphate replacement Repeat labs ordered Plan DVT prophylaxis -SCD Nutrition -consistent carbohydrate- Code Status - Full Code [employer]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 The patient was previously admitted to the ICU on 06/28/2024 with intentional overdose of insulin at that time she also was in respiratory failure and required intubation secondary to hyperglycemia along with aspiration pneumonia. She was transferred to inpatient psychiatry facility at [facility] in [facility]. Today EMS was called by her fiance when she took double of her home insulin dose and also also drinking alcohol. On arrival to ER patient is intoxicated but denied taking excessive insulin. She is on 38 units of Lantus. She denies any suicidal ideation the ER EMS found patient to be hypoglycemic and she was given D10. In ER again her blood sugar dropped and she was started on D20 which was later weaned off before I will to ICU. She also was given dose of glucagon. Urine drug screen is positive for cannabinoids. She tested negative for influenza RSV and COVID. Tylenol level 69 When I spoke to the patient she was alert awake and oriented. She states that she took 8 units of lispro and 38 units of Lantus which is a usual does. But she did not eat any dinner and went to bed. She states she she did drink alcohol and had couple of shots of what cup with her partner. She states she was trying to deal with the stress. She was [facility] early in the morning and she also was going through financial difficulty as she had her car impounded. She states that she has not try to hurt herself or anyone else. She does admit she has depression and has been taking her medications regularly and feels the medications are helping her. She does admit to Vape and smoke marijuana. She also occasionally takes coming is. She works in [employer] and is keeping a job and also taking her medications regularly. She denies any physical symptoms at this time. Patient denies fever, chest pain, shortness of breath, cough, nausea vomiting, abdominal pain,, diarrhea, headache or constipation. All other systems were reviewed and were negative Review of Systems 2 Review of Systems: All systems reviewed & are unremarkable except as noted in HPI and below (HPI) [facility] Past Medical History Medical History COPD (chronic obstructive pulmonary disease) Type 1 diabetes mellitus Bipolar disorder Neuropathy Chronic pancreatitis Dyslipidemia Anxiety Depression Hepatitis DVT (deep venous thrombosis) Necrotizing pancreatitis Surgical History Surgical History History of wisdom tooth extraction History of tubal ligation History of ERCP (06/2019) History of surgery on arm (2019) Left History of section 2004, 2010, 2016 Family History Family History Mother Diabetes mellitus Family history of coronary artery disease Family history of dementia Social History Social History Social History: She has 3 children . She lives with her snf partner Billy. She works at the [employer] medical decision maker: Billy Wright, friend. Code status: Full code. Smoking packs per day: 0.5 Smoking cigarettes per day: 10.0 Years smoked: 20 Smoking pack-years: 10.00 Smoking status: Current every day smoker Tobacco type: cigarettes and e-cigarettes/vaping Second hand tobacco smoke exposure: Yes Additional smoking assessment comments: 10-20 cigarettes a day and vapes Alcohol intake: former Drinks per week: 42 Substance use: current Substance use type: marijuana Last use: 03/10/2024 Lack of Transportation: No Lack of Food: Sometimes True Current Housing: I Have Housing Concerned About Future Housing: No Difficulty Paying Gas/Electric Bills: No Difficulty Paying for Meds: No Currently Unemployed: No Education: Decline to Answer Difficulty w/ Childcare or Family Care: No Additional occupation/education comments: Unemployed. Spiritual care concerns: No Meds Home Medications and Allergies Home Medications ?Medication ?Instructions ?Recorded ?Confirmed ?Type pregabalin 100 mg capsule 200 mg PO TID 02/24/2206/12 History albuterol sulfate 90 mcg/actuation 90 mcg inhalation D AILY 03/10/24 06/12/25 History aerosol inhaler ferrous sulfate 325 mg (65 mg 325 mg PO BID #60 tabs 0 03/12/24 06/12/25 Rx iron) tablet buspirone 10 mg tablet 30 mg PO BID anxiety 5 06/12/25 History hydroxyzine HCl 10 mg tablet 10 mg PO TID PRN anxiety 06/25/24 06/12/25 History insulin glargine 100 unit/mL (3 38 unit subcut QPM 06/0706/12/25 History mL) subcutaneous pen (Lantus Solostar U-100 Insulin) insulin lispro 100 unit/mL 8 unit subcut TIDWMEAL 06/1406/12/25 History subcutaneous pen ondansetron 4 mg disintegrating 4 mg PO Q6-8H PRN naus ea and 03/23/25 06/12/25 Rx tablet vomiting #20 tabs bupropion HCl 300 mg 24 hr tablet, 300 mg PO DAILY 06/12/25 History extended release [id number] 1 cap PO TIDWM 06/12/2505/16 History (pork)36,000-114,000-180k unit capsule,del rel (Creon) topiramate 25 mg tablet 50 mg PO DAILY 06/12/2505/16 History Allergies Allergy/AdvReac Type Severity Reaction Status Date / Time No Known Allergies Allergy Unknown Verified 06/12/25 10:25 Vital Signs Vital Signs - 24 hr 06/11/25 22:34 06/11/25 23:56 06/11/25 23:57 Temperature 36.7 C Pulse Rate 69 Respiratory Rate 17 18 Blood Pressure 100/63 Pulse Oximetry 100 97 Oxygen Delivery Room Air Room Air 06/12/25 07:47 06/12/25 09:12 06/12/25 10:30 Temperature 36.7 C Pulse Rate 75 74 79 Respiratory Rate 16 14 18 Blood Pressure 111/66 108/64 135/75 Pulse Oximetry 100 98 98 Oxygen Delivery 06/12/25 11:00 06/12/25 11:01 Temperature Pulse Rate 75 Respiratory Rate 18 Blood Pressure 141/80 H Pulse Oximetry 99 Oxygen Delivery Room Air Exam 2 Narrative: General: Pt is alert awake and in NAD Lungs/Chest: Trachea central Clear BS B/L, No crackles or wheezing. Cardiac: RRR. Normal S1 S2. No murmurs Circulation: Pedal pulses are intact and symmetrical. Abdomen: Normal bowel sounds.. Soft. NT. ND. Extremities: No clubbing, cyanosis or edema. Warm : Weathers in place Neurologic: Follows commands. Moves all 4 extremities PERRL Skin: No Rash Results Labs 06/11/25 23:01 06/11/25 22:53 Labs: Short CBC 06/11/25 Range/Units 23:01 WBC 7.1 (4.5-10.0) K/mm3 Hgb 15.6 H (12.0-15.0) g/dL Hct 46.6 (37.0-47.0) % Plt Count 159 (150-375) k/mm3 [facility] 06/11/25 22:53 Sodium 144 Potassium 3.0 L Chloride 107 Carbon Dioxide 24 BUN 12 Creatinine 0.69 L Glucose 66 Calcium 10.5 H Liver Function 06/11/25 Range/Units 22:53 Total Bilirubin 0.6 (0.2-1.3) mg/dL AST 57 H (14-36) U/L ALT 39 H (6-35) U/L Alkaline Phosphatase 82 (38-126) U/L Albumin 5.2 H (3.5-5.1) g/dL Urine 06/11/25 Range/Units 23:53 Urine Color Yellow (Yellow) Urine Appearance Cloudy H (Clear) Urine pH 5.5 (5.0-9.0) Ur Specific [place] 1.010 (1.001-1.035) Urine Protein Negative (Negative) mg/dL Urine Glucose (UA) Negative (Negative) mg/dL
[2025-06-12] MEDS: KCL 20 MEQ/D5/0.45% SOD CHL 1,000 ML 100 ML IV CONT (12:06)
[2025-06-12] MEDS: PREGABALIN (*CRX) 50 MG CAPSULE 200 MG PO ×2 (13:16→16:41)
[2025-06-12 13:27] LABS: Anion Gap 5 mmol/L (4-12); Blood Urea Nitrogen 11 mg/dL (7-17); Calcium 8.5 mg/dL (8.4-10.2); Carbon Dioxide 24 mmol/L (22-30); Chloride 110 mmol/L (98-107); Estimated CRCL calculation 89 ml/min; Estimated Glomerular Filt Rate > 60; Glucose 181 mg/dL (65-110); Magnesium 1.5 mg/dL (1.6-2.3); Potassium 3.9 mmol/L (3.4-5.0); Sodium 139 mmol/L (137-145)
[2025-06-12] MEDS: MAGNESIUM SULF 2 GM/WATER 50ML 2 GM/50 ML BAG IVPB (14:11)
[2025-06-12] MEDS: FERROUS SULFATE 325 MG TABLET BY MOUTH (16:42)
[2025-06-12] MEDS: LIPASE/AMYLASE/PROTEASE 12,000 UNITS CAP 3 CAP PO (16:42)
[2025-06-12] MEDS: INSULIN ASPART (*BKC) 100 UNITS/ML SUB-Q (20:58)
[2025-06-13] VITALS: BP 108/75; PULSE 70; PULSE 78; RESP 16; TEMP 36.9; O2SAT 96
[2025-06-13 02:00] VITALS: PULSE 68
[2025-06-13 04:00] VITALS: BP 110/64; PULSE 66; PULSE 70; RESP 16; O2SAT 97
[2025-06-13 04:19] LABS: Hematocrit 39.8 % (37.0-47.0); Hemoglobin 12.9 g/dL (12.0-15.0); Immature Platelet Fraction Pct 4.9 % (0.9-11.2); Mean Corpuscular HGB Conc 32.4 g/dl (32-36); Mean Corpuscular Hemoglobin 30.6 pg (26-34); Mean Corpuscular Volume 94.5 fl (80-100); Platelet Count Result 126 k/mm3 (150-375); Red Blood Count 4.21 M/mm3 (4.2-5.4); White Blood Count 6.6 K/mm3 (4.5-10.0)
[2025-06-13 04:31] LABS: Alanine Aminotransferase 28 U/L (6-35); Albumin Level 3.5 g/dL (3.5-5.1); Alkaline Phosphatase 65 U/L (38-126); Anion Gap 2 mmol/L (4-12); Aspartate Amino Transferase 37 U/L (14-36); Bilirubin,Total 0.3 mg/dL (0.2-1.3); Blood Urea Nitrogen 11 mg/dL (7-17); Calcium 8.5 mg/dL (8.4-10.2); Carbon Dioxide 21 mmol/L (22-30); Chloride 116 mmol/L (98-107); Estimated CRCL calculation 107 ml/min; Estimated Glomerular Filt Rate > 60; Glucose 107 mg/dL (65-110); Magnesium 2.1 mg/dL (1.6-2.3); Potassium 3.5 mmol/L (3.4-5.0); Sodium 139 mmol/L (137-145); Total Protein 6.3 g/dL (6.3-8.2)
[2025-06-13 08:00] VITALS: BP 105/46; PULSE 78; RESP 15; TEMP 37.1; O2SAT 99
--- NOTE | 2025-06-13 09:14 | PM.IMPN2 ---
Assessment and Plan Assessment and Plan (1) Hypoglycemia: Code(s): E16.2 - Hypoglycemia, unspecified Status: Acute Assessment and Plan: Patient presented with Hypoglycemia as patient took Lantus and lispro without eating anything. Blood glucose have now improved. Patient was on D20 which was transitiono D5 half-normal with potassium and later discontinued yesterday Patient is now alert oriented and diet is ordered She is on sliding scale and I will resume Lantus at a lower dose tonight Patient does have history of suicide attempt with intentional overdose of insulin but at this point patient denies taking any excessive insulin insulin. She admits she took Lantus 38 units and 8 units of lispro but did not eat anything and fell asleep which could explain hypoglycemia. She does admit to dealing with a lot of financial stress but denies any suicidal homicidal ideation At this point I will continue one-to-one sitter and suicide precaution. Will request crisis to evaluate patient. If cleared will discharge patient with her home psychiatric regimen Continue her psychiatric medications Wellbutrin, buspirone, Lyrica and topiramate (2) Diabetes mellitus: Code(s): E11.9 - Type 2 diabetes mellitus without complications Status: Acute Assessment and Plan: See above (3) Depression: Qualifiers: Depression Type: unspecified Qualified Code(s): F32.9 - Major depressive disorder, single episode, unspecified Code(s): F32.9 - Major depressive disorder, single episode, unspecified Status: Acute Assessment and Plan: See above (4) Electrolyte abnormality: Code(s): E87.8 - Other disorders of electrolyte and fluid balance, not elsewhere classified Status: Acute Assessment and Plan: Replace low potassium Plan DVT prophylaxis -SCD Nutrition -consistent carbohydrate- Code Status - Full Code Subjective Date/time seen: 06/13/25 Patient sitting in bed on room air and with stable vital signs. She denies any complaints and feels good and would like to be discharged. Sitter at bedside Patient denies fever, chest pain, shortness of breath, cough, nausea vomiting, abdominal pain,, diarrhea, headache or constipation. All other systems were reviewed and were negative Review of Systems Review of Systems: All systems reviewed & are unremarkable except as noted in HPI and below (HPI) Exam Narrative: General: Pt is alert awake and in NAD Lungs/Chest: Trachea central Clear BS B/L, No crackles or wheezing. Cardiac: RRR. Normal S1 S2. No murmurs Circulation: Pedal pulses are intact and symmetrical. Abdomen: Normal bowel sounds.. Soft. NT. ND. Extremities: No clubbing, cyanosis or edema. Warm : Weathers in place Neurologic: Follows commands. Moves all 4 extremities PERRL Skin: No Rash Objective Data Vital Signs Vital Signs: Vital Signs - 24 hr 06/12/25 10:30 06/12/25 11:00 06/12/25 11:01 Temperature 36.7 C Pulse Rate 79 75 Respiratory Rate 18 18 Blood Pressure 135/75 141/80 H Pulse Oximetry 98 99 Oxygen Delivery Room Air Fraction of Inspired Oxygen 06/12/25 12:00 06/12/25 12:00 06/12/25 12:00 Temperature 36.8 C Pulse Rate 74 97 Respiratory Rate 14 Blood Pressure 128/79 Pulse Oximetry 98 Oxygen Delivery Room Air Fraction of Inspired Oxygen 06/12/25 13:00 06/12/25 14:00 06/12/25 14:00 Temperature 36.7 C Pulse Rate 76 79 79 Respiratory Rate 16 16 Blood Pressure 121/64 112/65 Pulse Oximetry 98 97 Oxygen Delivery Fraction of Inspired Oxygen 06/12/25 14:45 06/12/25 15:00 06/12/25 16:00 Temperature Pulse Rate 76 79 Respiratory Rate 15 16 Blood Pressure 115/67 Pulse Oximetry 99 98 Oxygen Delivery Room Air Room Air Fraction of Inspired Oxygen 21 06/12/25 16:00 06/12/25 16:00 06/12/25 18:00 Temperature 36.9 C Pulse Rate 79 78 70 Respiratory Rate 18 Blood Pressure 114/68 Pulse Oximetry 97 Oxygen Delivery Fraction of Inspired Oxygen 06/12/25 20:00 06/12/25 20:00 06/12/25 20:00 Temperature Pulse Rate 73 80 Respiratory Rate 14 Blood Pressure 116/70 Pulse Oximetry 100 Oxygen Delivery Room Air Fraction of Inspired Oxygen 06/12/25 22:00 06/13/25 00:00 06/13/25 00:00 Temperature Pulse Rate 72 78 Respiratory Rate Blood Pressure Pulse Oximetry Oxygen Delivery Room Air Fraction of Inspired Oxygen 21 06/13/25 00:00 06/13/25 02:00 06/13/25 04:00 Temperature 36.9 C Pulse Rate 70 68 Respiratory Rate 16 Blood Pressure 108/75 Pulse Oximetry 96 Oxygen Delivery Room Air Fraction of Inspired Oxygen 06/13/25 04:00 06/13/25 04:00 Temperature Pulse Rate 66 70 Respiratory Rate 16 Blood Pressure 110/64 Pulse Oximetry 97 Oxygen Delivery Fraction of Inspired Oxygen Intake/Output Intake/Output: Intake & Output 06/10/25 06/11/25 06/12/25 06/13/25 23:59 23:59 23:59 23:59 Intake Total 7776.7667 Output Total 400 1 Balance 1956.7667 -1 Meds/Results Medications: Active Medications Generic Name Dose Route Start Last Admin Trade Name Freq PRN Reason Stop Dose Admin Acetaminophen 650 mg 06/12/25 01:38 Acetaminophen 325 Mg Tablet PO Q4H PRN Mild Pain (1-3) or Fever Albuterol 2 puff 06/12/25 12:47 Albuterol Sulfate (*Sp) Aerosol 1 Puff INHALATION Q4H PRN Shortness Of Breath Or Wheezing Lipase/Protease/Amylase 3 cap 06/12/25 12:00 06/12/25 16:42 Lipase/Amylase/Protease 12,000 Units Cap PO 3 cap TIDWM EDIE Administration Bupropion HCl 300 mg 06/13/25 09:00 Bupropion Hcl Xl (24 Hr) 150 Mg Tabcr PO DAILY EDIE Buspirone HCl 30 mg 06/12/25 17:00 06/12/25 16:42 Buspirone Hcl 10 Mg Tablet PO 30 mg BID EDIE Administration Dextrose 12.5 gm 06/12/25 07:04 Dextrose 50% 25 Gm/50 Ml Syringe IV PUSH PRN PRN Hypoglycemia Protocol Ferrous Sulfate 325 mg 06/12/25 17:00 06/12/25 16:42 Ferrous Sulfate 325 Mg Tablet BY MOUTH 325 mg BIDWM EDIE Administration Glucagon 1 mg 06/12/25 07:04 Glucagon For Inj 1 Mg Vial IM PRN PRN Hypoglycemia Protocol Glucose 15 gm 06/12/25 07:04 Glucose Oral Gel 15 Gm Of Glucse In 37.5 Gm Tube PO PRN PRN Hypoglycemia Protocol Hydroxyzine HCl 0 mg 06/12/25 12:17 Hydroxyzine Hcl 10 Mg Tablet PO TID PRN Anxiety Insulin Aspart 3 - 6 units 06/13/25 08:00 06/13/25 09:09 Insulin Aspart (*Bkc) 100 Units/Ml SUB-Q Not Given TIDWM EDIE Protocol Insulin Aspart 1 - 3 units 06/13/25 21:00 Insulin Aspart (*Bkc) 100 Units/Ml SUB-Q [facility] Protocol Insulin Glargine 25 units 06/13/25 21:00 Insulin Glargine (*Bkc) 100 Units/Ml SUB-Q [facility] Ondansetron HCl 4 mg 06/12/25 01:38 Ondansetron Inj 4 Mg/2 Ml Vial IV PUSH Q4H PRN Nausea Ondansetron HCl 4 mg 06/12/25 12:17 Ondansetron Hcl Odt 4 Mg Tablet PO Q6-8H PRN Nausea And Vomiting Pregabalin 200 mg 06/12/25 13:00 06/12/25 16:41 Pregabalin (*Crx) 50 Mg Capsule PO 200 mg TID [facility] Administration Topiramate 50 mg 06/13/25 09:00 Topiramate 25 Mg Tablet PO DAILY [facility] Labs Labs: Laboratory Results - last 24 hr 06/12/25 06/12/25 06/12/25 09:47 10:43 11:50 WBC RBC Hgb Hct MCV MCH MCHC RDW Plt Count MPV % Immature Plt Fraction Sodium Potassium Chloride Carbon Dioxide Anion Gap BUN Creatinine Estim Creat Clear Calc Estimated GFR Glucose POC Capillary Glucose 164 H 126 H 122 H Calcium Phosphorus Magnesium Total Bilirubin AST ALT Alkaline Phosphatase Total Protein Albumin 06/12/25 06/12/25 06/12/25 12:55 14:03 15:08 WBC RBC Hgb Hct MCV MCH MCHC RDW Plt Count MPV % Immature Plt Fraction Sodium 139 Potassium 3.9 Chloride 110 H Carbon Dioxide 24 Anion Gap 5 BUN 11 Creatinine 0.81 Estim Creat Clear Calc 89 Estimated GFR > 60 Glucose 181 H POC Capillary Glucose 213 H 189 H Calcium 8.5 Phosphorus 3.1 Magnesium 1.5 L Total Bilirubin AST ALT Alkaline Phosphatase Total Protein Albumin 06/12/25 06/12/25 06/13/25 16:37 20:56 00:41 WBC RBC Hgb Hct MCV MCH MCHC RDW Plt Count MPV % Immature Plt Fraction Sodium Potassium Chloride Carbon Dioxide Anion Gap BUN Creatinine Estim Creat Clear Calc Estimated GFR Glucose POC Capillary Glucose 198 H 351 H 111 H Calcium Phosphorus Magnesium Total Bilirubin AST ALT Alkaline Phosphatase Total Protein Albumin 06/13/25 06/13/25 06/13/25 03:58 05:08 08:07 WBC 6.6 RBC 4.21 Hgb 12.9 Hct 39.8 MCV 94.5 MCH 30.6 MCHC 32.4 RDW 13.3 Plt Count 126 L MPV 11.1 H % Immature Plt Fraction 4.9 Sodium 139 Potassium 3.5 Chloride 116 H Carbon Dioxide 21 L Anion Gap 2 L BUN 11 Creatinine 0.66 L Estim Creat Clear Calc 107 Estimated GFR > 60 Glucose 107 POC Capillary Glucose 84 106 H Calcium 8.5 Phosphorus 2.7 Magnesium 2.1 Total Bilirubin 0.3 AST 37 H ALT 28 Alkaline Phosphatase 65 Total Protein 6.3 Albumin 3.5 Quality VTE Prophylaxis VTE prophylaxis: mechanical ordered
[2025-06-13] MEDS: buPROPion HCL XL (24 HR) 150 MG TABCR 300 MG PO (09:25)
[2025-06-13] MEDS: LIPASE/AMYLASE/PROTEASE 12,000 UNITS CAP 3 CAP PO ×2 (09:25→11:38)
[2025-06-13] MEDS: PREGABALIN (*CRX) 50 MG CAPSULE 200 MG PO (09:25)
[2025-06-13] MEDS: TOPIRAMATE 25 MG TABLET 50 MG PO (09:25)
[2025-06-13] MEDS: FERROUS SULFATE 325 MG TABLET BY MOUTH (09:26)
[2025-06-13 10:00] VITALS: PULSE 90
--- NOTE | 2025-06-13 10:51 | P.DS_ITS ---
DS: Admitting Diagnosis Discharge Date 06/13/2025 Admitting Diagnosis Hypoglycemia DS: Discharge Diagnosis Discharge Diagnosis (1) Hypoglycemia: Code(s): E16.2 - Hypoglycemia, unspecified Status: Acute (2) Diabetes mellitus: Code(s): E11.9 - Type 2 diabetes mellitus without complications Status: Acute (3) Depression: Qualifiers: Depression Type: unspecified Qualified Code(s): F32.9 - Major depressive disorder, single episode, unspecified Code(s): F32.9 - Major depressive disorder, single episode, unspecified Status: Acute (4) Electrolyte abnormality: Code(s): E87.8 - Other disorders of electrolyte and fluid balance, not elsewhere classified Status: Acute DS: Summary Hospital Course Reason for hospitalization: Hypoglycemia Hospital Course: Marisa Lott is a 45 year old female with past medical history of diabetes type 1, COPD, and depression. The patient was previously admitted to the ICU on 06/28/2024 with intentional overdose of insulin at that time she also was in respiratory failure and required intubation secondary to hyperglycemia along with aspiration pneumonia. She was transferred to inpatient psychiatry facility at [facility]. On 06/12,y EMS was called by her fiance when she took double of her home insulin dose and was also drinking alcohol. On arrival to ER patient is intoxicated but denied taking excessive insulin. She is on 38 units of Lantus. She denies any suicidal ideation the ER. EMS found patient to be hypoglycemic and she was given D10. In ER again her blood sugar dropped and she was started on D20 which was later weaned off before I will to ICU. She also was given dose of glucagon. Urine drug screen is positive for cannabinoids. She tested negative for influenza RSV and COVID. Ethanol level was 69 When I spoke to the patient she was alert awake and oriented. She told me that she took 8 units of lispro and 38 units of Lantus which is a usual does. But she did not eat any dinner and went to bed and fell asleep. She states she did drink alcohol and had couple of shots of what with her partner. She told me that she was trying to deal with the stress. She was released from care home early in the morning and she also was going through financial difficulty as she had her car impounded. She states that she has not trying to hurt herself or anyone else. She does admit she has depression and has been taking her medications regularly and feels the medications are helping her. She does admit to Vape and smoke marijuana occasionally. She works in [employer] and is keeping a job and also taking her medications regularly. She denied any physical symptoms Patient was managed with IV fluids with dextrose and eventually blood sugar improved and patient was transition back to her sliding scale and today plan was to transition her back to Lantus. I again spoke to patient this morning and she exhibited no suicidal homicidal ideations or indication. She states that she is willing to continue with her home medication for depression anxiety and this hypoglycemia was purely secondary to accidentally taking more insulin without eating. I requested crisis assessment by [facility] and they also in agreement the patient can be discharged with a safety contract with follow-up with her psychiatrist. I have consult patient cut down on her alcohol use along with marijuana use. No changes have been made in her medications including her insulin. Patient will continue with home does but will be mindful of not administering short-term insulin if she does not eat her meal. I also instructed her to monitor blood glucose as much as she can. She will follow-up with the primary care physician within next 2 weeks. Time spent discussing smoking cessation with patient: more than 10 minutes Time Spent with Patient Time attestation: Total time spent providing and/or coordinating discharge services: Exam Narrative: General: Pt is alert awake and in NAD Lungs/Chest: Trachea central Clear BS B/L, No crackles or wheezing. Cardiac: RRR. Normal S1 S2. No murmurs Circulation: Pedal pulses are intact and symmetrical. Abdomen: Normal bowel sounds.. Soft. NT. ND. Extremities: No clubbing, cyanosis or edema. Warm : Weathers in place Neurologic: Follows commands. Moves all 4 extremities PERRL Skin: No Rash DS: Data Data Completed and Pending Labs on day of discharge: Labs from last 24 hours 06/13/25 06/13/25 06/13/25 08:07 05:08 03:58 WBC 6.6 RBC 4.21 Hgb 12.9 Hct 39.8 MCV 94.5 MCH 30.6 MCHC 32.4 RDW 13.3 Plt Count 126 L MPV 11.1 H % Immature Plt Fraction 4.9 Sodium 139 Potassium 3.5 Chloride 116 H Carbon Dioxide 21 L Anion Gap 2 L BUN 11 Creatinine 0.66 L Estim Creat Clear Calc 107 Estimated GFR > 60 Glucose 107 POC Capillary Glucose 106 H 84 Calcium 8.5 Phosphorus 2.7 Magnesium 2.1 Total Bilirubin 0.3 AST 37 H ALT 28 Alkaline Phosphatase 65 Total Protein 6.3 Albumin 3.5 06/13/25 06/12/25 06/12/25 00:41 20:56 16:37 WBC RBC Hgb Hct MCV MCH MCHC RDW Plt Count MPV % Immature Plt Fraction Sodium Potassium Chloride Carbon Dioxide Anion Gap BUN Creatinine Estim Creat Clear Calc Estimated GFR Glucose POC Capillary Glucose 111 H 351 H 198 H Calcium Phosphorus Magnesium Total Bilirubin AST ALT Alkaline Phosphatase Total Protein Albumin 06/12/25 06/12/25 06/12/25 15:08 14:03 12:55 WBC RBC Hgb Hct MCV MCH MCHC RDW Plt Count MPV % Immature Plt Fraction Sodium 139 Potassium 3.9 Chloride 110 H Carbon Dioxide 24 Anion Gap 5 BUN 11 Creatinine 0.81 Estim Creat Clear Calc 89 Estimated GFR > 60 Glucose 181 H POC Capillary Glucose 189 H 213 H Calcium 8.5 Phosphorus 3.1 Magnesium 1.5 L Total Bilirubin AST ALT Alkaline Phosphatase Total Protein Albumin 06/12/25 11:50 WBC RBC Hgb Hct MCV MCH MCHC RDW Plt Count MPV % Immature Plt Fraction Sodium Potassium Chloride Carbon Dioxide Anion Gap BUN Creatinine Estim Creat Clear Calc Estimated GFR Glucose POC Capillary Glucose 122 H Calcium Phosphorus Magnesium Total Bilirubin AST ALT Alkaline Phosphatase Total Protein Albumin Discharge Plan Discharge Attending physician on discharge: Abdifatah Escoto Consulting providers: Jose Cedillo Discharging Clinician: Abdifatah Escoto Patient Disposition: Home Activity: unlimited Diet: diabetic Patient Instructions: Antibiotic Form, How to Stop Smoking (DC) Patient Language: Tamazight Stand Alone Forms: General Discharge Information Follow-up/Referrals: Fly,MD Skinny [Primary Care Provider, Unknown] Referral Note: Call the doctor's office to set up appointment Within 2 weeks Discharge Medications: Continued pregabalin 100 mg capsule 200 mg PO TID ondansetron 4 mg tablet,disintegrating 4 mg PO Q6-8H PRN (Reason: nausea and vomiting) Qty: 20 0RF albuterol sulfate 90 mcg/actuation HFA aerosol inhaler 2 puff INHALATION Q4H PRN (Reason: shortness of breath or wheezing) ferrous sulfate 325 mg (65 mg iron) tablet 325 mg PO BID Qty: 60 0RF bupropion HCl 300 mg tablet extended release 24 hr 300 mg PO DAILY Creon 36,000-114,000- 180,000 unit capsule,delayed release(DR/EC) 1 cap PO TIDWM topiramate 25 mg tablet 50 mg PO DAILY buspirone 10 mg tablet 30 mg PO BID hydroxyzine HCl 10 mg tablet 10 mg PO TID PRN (Reason: anxiety) Rx Instructions: TAKE 1 TO 2 TABLETS BY MOUTH UP TO THREE TIMES DAILY insulin glargine [Lantus Solostar U-100 Insulin] 100 unit/mL (3 mL) insulin pen 38 unit SUBCUT QPM insulin lispro 100 unit/mL insulin pen 8 unit SUBCUT TIDWMEAL Date of admission: 06/12/25 01:38 [facility]mitting Provider: Jaiden Gonzales Attending physician on admission: Jaiden Gonzales Condition: Guarded Prognosis Quality VTE Prophylaxis VTE prophylaxis: mechanical ordered Hospitalist MIPS Heart Failure (Exclusion) Patient has history of Heart Transplant or Left Ventricular Assistive Device?: No IF YES, STOP HERE Heart Failure (Qualifier) Patient has current or prior documentation of LVEF less than or equal to 40%, or mod/servere depressed LVSF?: No IF NO, STOP HERE
[2025-06-13] MEDS: INSULIN ASPART (*BKC) 100 UNITS/ML SUB-Q (11:38)
== END 2025-06-13 13:06 | disposition home or self-care (01) ==
LOC: ANHED 06-12 02:29 → ANHICU 06-12 02:33
PROVIDERS: Nurse Practitioner; Admitting Provider Internal Medicine; Emergency Provider Student in an Organized Health Care Education/Training Program; PCP Family Medicine; Visit Provider Internal Medicine
DX: T38.3X1A Poisoning by insulin and oral hypoglycemic [antidiabetic] drugs, accidental (unintentional), initial encounter (principal); E11.649 Type 2 diabetes mellitus with hypoglycemia without coma; F10.129 Alcohol abuse with intoxication, unspecified; Y90.3 Blood alcohol level of 60-79 mg/100 ml; F32.9 Major depressive disorder, single episode, unspecified; F41.8 Other specified anxiety disorders; E87.8 Other disorders of electrolyte and fluid balance, not elsewhere classified; E78.5 Hyperlipidemia, unspecified; F17.290 Nicotine dependence, other tobacco product, uncomplicated; F12.90 Cannabis use, unspecified, uncomplicated; J44.9 Chronic obstructive pulmonary disease, unspecified; K86.1 Other chronic pancreatitis; Z20.822 Contact with and (suspected) exposure to COVID-19; Z86.718 Personal history of other venous thrombosis and embolism; Z79.4 Long term (current) use of insulin; Z91.51 Personal history of suicidal behavior; Z83.3 Family history of diabetes mellitus
CPT/HCPCS: 36415; 80048; 80053; 80143; 80179; 80307; 81001; 81025; 82077; 82140; 82803; 82948; 83605; 83735; 84100; 84443; 85025; 85027; 85055; 85610; 85730; 87637; 87641; 93005; 96361; 96365; 96366; 96367; 96368; 96372; 96374; 96375; 99285; A9270; G0378; G0379; J1610; J1815; J2354; J2405; J2765; J3475; J3480; J7030; J7050